=== PATIENT | male | born 1975 | race African-American/Black ===

== ENCOUNTER 2022-09-23 21:03 | Emergency (ER) | payer OTHER ==
--- OUTSIDE RECORDS SUMMARY | 2022-09-23 21:23 | XMS REPORT | Continuity of Care Document ---
:1975 Author Organization [facility] t Address [address] [place] [address] Care Team Providers Name Role Phone TEJINDER BURCH Primary Care Physician Unavailable Bud GUERRERO, Claire Woodard Attending Clinician [phone] Debi Briggs MD Attending Clinician Phil Arredondo Attending Clinician Kari Guerra MD Attending Clinician [phone] Meaghan Lipscomb MD Attending Clinician [phone] CLAIRE EWING Attending Clinician Unavailable MEAGHAN LIPSCOMB Attending Clinician Unavailable Rupesh WESTOksana Attending Clinician [phone] OKSANA GODDARD Attending Clinician Unavailable DEBI BRIGGS Attending Clinician Unavailable Kamryn GUERRERO, Meredith Arredondo Attending Clinician [phone] Roberth GUERRERO, Chaparro Clay Attending Clinician Larry GUERRERO, Coty Ha Attending Clinician Tonny Meneses MD Attending Clinician TONNY MENESES Attending Clinician Unavailable Jillian Napier MD Attending Clinician JILLIAN NAPIER Attending Clinician Unavailable Tejinder Burch MD Attending Clinician TEJINDER BURCH Attending Clinician Unavailable KENDRICK WISEMAN Attending Clinician Unavailable Jacob Calle DO Attending Clinician Madina GUERRERO, Honey Omalley Attending Clinician Elpidio Ramsey MD Attending Clinician ELPIDIO RAMSEY Attending Clinician Unavailable Brad Galindo DO Attending Clinician Jose Tovar MD Attending Clinician Pratik Layton MD Attending Clinician [phone] PRATIK LAYTON Attending Clinician Unavailable Puma Kent MD Attending Clinician PUMA KENT Attending Clinician Unavailable WILLIS GEORGE Attending Clinician Unavailable Balwinder Rebolledo MD Attending Clinician [phone] Samira Pearson MD Attending Clinician SAMIRA PEARSON Attending Clinician Unavailable SAMMI CABELLO Attending Clinician Unavailable TEJINDER BURCH Attending Clinician Unavailable BALAJI WILSON Attending Clinician Unavailable ELIGIO ROSENTHAL Attending Clinician Unavailable JILLIAN NAPIER Attending Clinician Unavailable CYN RECINOS Attending Clinician Unavailable Shannon Momin DO Attending Clinician SHANNON MOMIN Attending Clinician Unavailable COTY ELENA Attending Clinician Unavailable BRYSON ZAZUETA Attending Clinician Unavailable Marcin GUERRERO, Tejinder Attending Clinician Oksana Goddard NP Attending Clinician DEANDRA ACUÑA Attending Clinician Unavailable Jillian Napier MD Attending Clinician RAMAN PANTOJA Attending Clinician Unavailable SHEEBA MOORE Attending Clinician Unavailable CESARIO SOUSA Attending Clinician Unavailable ERICK NO Attending Clinician Unavailable MILAGRO JAMES Attending Clinician Unavailable MIAN SOTELO Attending Clinician Unavailable LAILA LOGAN Attending Clinician Unavailable CYN CASILLAS Attending Clinician Unavailable MEAGHAN LIPSCOMB Admitting Clinician Unavailable CHAPARRO FARAH Admitting Clinician Unavailable MIGUEL CURIEL Admitting Clinician Unavailable HONEY PAINTER Admitting Clinician Unavailable PRATIK LAYTON Admitting Clinician Unavailable BALWINDER REBOLLEDO Admitting Clinician Unavailable EUGENIA DUQUE Admitting Clinician Unavailable ANALILIA PRESLEY Admitting Clinician Unavailable BOOGIE UP Admitting Clinician Unavailable ELPIDIO RAMSEY Admitting Clinician Unavailable GRANT CLEMENTS Admitting Clinician Unavailable JANAY JOSEPH Admitting Clinician Unavailable JAMAR HARPER Admitting Clinician Unavailable CARLEEN MILLER Admitting Clinician Unavailable ANCIETO KRUSE Admitting Clinician Unavailable IVIS PUGH Admitting Clinician Unavailable TEOFILO BAIRD Admitting Clinician Unavail able Payers Payer Name Policy Type Policy Number Effective Date Expiration Date Dianne OSBORN DUAL [id number] COMPLETE [facility]-MEDICAID - [id number] 2020 MEDICAID 00:00:00 MEDICARE PART A [id number] 1999 \\T\\ B - MEDICARE 00:00:00 MEDICARE PLAN PPO [id number] AETNA GENERIC O - [id number] 2020 GENERIC PAYOR 00:00:00 MEDICAID OF [place] [id number] 2021 00:00:00 MEDICARE A B [id number] 2020 00:00:00 CDC REVIEW [id number] 2020 00:00:00 Problems Condition Condition Condition Status Onset Resolution Last Treating Co mments Source Name Details Category Date Date Treatment Clinician Date Enterocoli Enterocoli Disease Active [facility] tis [facility]18 [facility]: [facility] 00 [facility] 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 2-16 [facility] y with y with 00:00: Medical colonic colonic 00 [place] stricture stricture Generalize Generalize Disease Active 2020-[address] d d 0-23 [facility] abdominal abdominal 00:00: [facility] jf pain pain 00 Center Abdominal Abdominal Disease Active [facility] distention distention 5-13 [facility] 00:00: Medical 00 [place] Bowel Bowel Disease Active [facility] obstructio obstructio 1-16 [facility] n n 00:00: Medical 00 [place] Nausea Nausea Disease Active [facility] 1-16 [facility] 00:[facility]: Medical 00 [place] Ileus Ileus Disease Active [facility] 1-11 [facility] 00:[facility]: Medical 00 [place] Pain of Pain of Disease Active [facility] upper upper 1-06 [facility] abdomen abdomen 00:00: Medical 00 [place] Distal Distal Disease Active [facility] intestinal intestinal 8-29 [facility] obstructio obstructio 00:00: Me dical n syndrome n syndrome 00 Ce nter Acute Acute Disease Active [facility] abdominal abdominal 7-29 [facility] pain pain 00:00: Medical 00 Center Bilateral Bilateral Disease Active [facility] renal renal 7-09 [facility] stones stones 00:00: Medical 00 Center Hydrourete Hydrourete Disease Active [facility] r, left r, left 7- [facility] 00:[facility]: Medical 00 Center Hydronephr Hydronephr Disease Active [facility] osis with osis with 7 [facility] ureteropel ureteropel 00:00: Me dical angel angel 00 [place] junction junction (UPJ) (UPJ) obstructio obstructio n n Acute left Acute left Disease Active [facility] flank pain flank pain 7-09 [facility] 00:00: Medical 00 Center Gastrointe Gastrointe Disease Active [facility] stinal stinal 8-23 [facility] dysmotilit dysmotilit 00:00: Me dical y y 00 Center Hyponatrem Hyponatrem Disease Active [facility] ia ia 6-15 [facility] 00:[facility]: Medical 00 Center MATHEW (acute MATHEW (acute Disease Active [facility] kidney kidney 6-13 [facility] injury) injury) 00:00: Medical 00 Center Bronchiect Bronchiect Disease Active [facility] asis asis 6-13 [facility] 00:[facility]: Medical 00 Center Hyponatrem Hyponatrem Disease Active [facility] ia ia 6-13 [facility] 00:00: Medical 00 Center Other Other Disease Active [facility] partial partial 3 College intestinal intestinal 00:00: of obstructio obstructio 00 Me dicin n (HCCode) n (HCCode) e Vitamin E Vitamin E Disease Active [facility] deficiency deficiency 3-04 [facility] 00:00: of 00 Medicin e Vitamin A Vitamin A Disease Active [facility] deficiency deficiency 3-04 [facility] 00:00: of 00 Medicin e Exocrine Exocrine Disease Active [facility] pancreatic pancreatic 3-04 [facility] insufficie insufficie 00:00: of ncy ncy 00 Medicin e Vitamin D Vitamin D Disease Active [facility] deficiency deficiency 3-04 [facility]lege 00:00: of 00 Medicin e Abnormal Abnormal Disease Active [facility] finding on finding on 12-09 Co llege GI tract GI tract 00:00: of imaging imaging 00 Medicin e Chronic Chronic Disease Active Last [facility] constipati constipati 3 [facility] on on 00:00: t & Plan: of 00 Patient Medicin reports e no current GI issues, using 4 caps of Miralax 4x per day.Michael nt reports to clinic for a follow up visit, patient has been in and out of a hospital in [place] for LIONEL and Constipat ion. Just returned to [place] yesterday . Was admitted to hospital 4 x in November for recurrent LIONEL. Patient reports current regimen is 4 capfuls 4 times daily, patient is having insurance issues with coverage. Needs a PA for Miralax per Seedrscar [employer]. Discussed with patient at length issues with his current fragmente d care between [place] and [place], patient given informati on for adult center in [facility] which is only 3 hours from his home. Stated he did not know there was an adult CF center there. Other Other Disease Active [facility] constipati constipati 1-17 [facility] on on 00:00: Medical 00 Center Chronic Chronic Disease Active 2017-10 [facility] constipati constipati 2-16 Co llege on on 00:00: of Medicin e RLQ RLQ Disease Active 2017-10 [facility] abdominal abdominal 2-16 [facility] pain pain 00:00: of Medicin e Poor Poor Disease Active 2017-10 Last [facility] social social 2-03 [employer] situation situation 00:00: t & Plan: o f 00 Will have Medicin him meet e with social work to assist with resources [facility]. Patient not currently intereste d in therapy as he states he speaks with his mentors. Will continue to follow up with him. Possible referral to psychiatr y if remains with symptoms of depressio n and anxiety. 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 Patient is toleratin g and demonstra irene improveme nt in lung function and quality of life with Trikafta. Recommend continuin g current therapy. LFTs due. 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 No known No known Disease Unive rs active active ity of problems problems [facility] Allergies, Adverse Reactions, Alerts Allergy Allergy Status Severity Reaction(s) Onset Inactive Treating Comm ents Source Name Type Date Date Clinician [place] Propensi Active Hives Univer s c ty to 10-18 ity of adverse 00:00: [place] reaction 00 [facility] s Branch [place] DRUG Active Hives Univers C INGREDI 10-18 ity of 00:00: [place] 00 [facility] [place] Drug Active Hives [facility] Allergy 04-17 [facility] 00:00: Medical 00 Center KETOROLA Allergy Active High Hives [facility] C 04-17 [facility] 00:00: Medical 00 Center No Known DA Active [facility] Allergie 03-17 [place] [facility] 00:[facility]: d 00 Medical Center NO KNOWN Allergy Active [facility] Family History Family Member Diagnosis Comments Start Date Stop Date Source Natural brother Cystic fibrosis [facility] Natural father Heart disease [facility] Natural mother Lupus [facility] Social History Social Habit Start Date Stop Date Quantity Comments [facility] History [facility] 2022-09-08 2022-09-08 2 [facility] Transport Med 00:00:00 00:00:[address] [facility] 2022-09-08 2022-09-08 1 [facility] Housing Unable to 00:00:00 00:00:00 Medical Center Pay History [facility] 2022-09-08 2022-09-[address] [facility] Housing Places 00:00:00 00:00:00 Medical Ce nter Lived History [facility] 2022-09-08 2022-09-[address] [facility] Housing Homeless 00:00:00 00:00:00 Medical Center Last Year Alcohol intake 2022-09-07 2022-09-[address] [facility] es 00:00:00 00:00:00 non-drinker of Medical Ce nter alcohol (finding) Exposure to 2022-08-27 2022-09-[address] [facility] SARS-CoV-2 (event) 00:00:00 20:59:00 Medica l [place] Tobacco use and 2018-06-29 2018-06-[address] [facility]es exposure 00:00:00 00:00:00 Medical Center Sex Assigned At [address]es 00:00:00 00:00:00 Medical Center Smoking Status Start Date Stop Date Source Unknown if ever smoked [facility] Never sm[facility] Medications Ordered Filled Start Stop Current Ordering Indication Dosage Frequency Signature Comments Components Source Medication Medication Date Date Medication? Clinician (SIG) Name Name shey 2021-10 Yes 1{capsu Q.5D Take [address] [facility] multivit 2-03 le} capsule by [facility] 22/vit 16:40: mouth 2 Medical D3/vit K 27 (two) Center (MVW times COMPLETE daily. FORMULATION D5000 ORAL) polyethylen 2021-10 Yes 17g Q.25D Take [address] [facility] e glycol 2-03 by mouth 4 [facility] (GLYCOLAX) 16:40: (four) Medic al 17 gram 27 times Center packet daily. plecanatide 2021-10- No 3mg QD Take [address] [facility] (Trulance) 2- 12-03 by mouth Luke s 3 mg Tab 14:02: 00:00 daily. Medica l 54 :00 Center tenapanor 2021-10- No 50mg Q.5D Take [address] (Ibsrela) 2- 12-03 by mouth 2 Arm[facility] es 50 mg Tab 14:02: 00:00 (two) Medica l 54 :00 times Center daily. tenapanor 2021-10 Yes 50mg Q.5D Take [address] (Ibsrela) 2-03 by mouth 2 [facility] s 50 mg Tab 00:00: (two) Medical 00 times Center daily. plecanatide 2021-10 Yes 3mg QD Take [address] (Trulance) 2-03 by mouth [facility] 3 mg Tab 00:00: daily. [facility] 00 [place] polyethylen 2021-10 Yes 17g Q.25D Take [address] [facility] e glycol 1-29 by mouth 4 [facility] (GLYCOLAX) 20:27: (four) Medic al 17 gram 40 times Center packet daily. pedi 2021-10 Yes 1{capsu Q.5D Take [address] [facility] multivit 1-29 le} capsule by [facility] 22/vit 20:27: mouth 2 Medical D3/vit K 39 (two) Center (MVW times COMPLETE daily. FORMULATION D5000 ORAL) plecanatide 2021-10 Yes 3mg QD Take [address] (Trulance) 1-29 by mouth [facility] 3 mg Tab 20:27: daily. [facility] 39 [place] tenapanor 2021-10 Yes 50mg Q.5D Take [address] (Ibsrela) 1-29 by mouth 2 Luke s 50 mg Tab 20:27: (two) Medical 39 times Center daily. polyethylen 2021- No 4000mL Take 4,[address] e glycol 9-18 09-18 mLs by [facility] (GoLYTELY,N 00:00: 23:59 mouth once Medical uLYTELY) 00 :00 for 1 Center 236-22.74-6 dose. .74 -5.86 gram solution polyethylen 2021- No 4000mL Take 4,[address] e glycol 9-18 09-18 mLs by [facility] (GoLYTELY,N 00:00: 23:59 mouth once Medical uLYTELY) 00 :00 for 1 Center 236-22.74-6 dose. .74 -5.86 gram solution polyethylen 2021- No 34g Q.5D Take [address] [facility] e glycol 9-13 09-16 by mouth 2 Luke s (GLYCOLAX) 00:00: 23:59 (two) Medic al 17 gram 00 :00 times Center packet daily for 3 days. polyethylen 2022-0 2022- No 34g Q.5D Take [address] [facility] e glycol 9-13 09-16 by mouth 2 Luke s (GLYCOLAX) 00:00: 23:59 (two) Medic al 17 gram 00 :00 times Center packet daily for 3 days. pedi 2021-0 Yes 1{capsu Q.5D Take [address] [facility] multivit 3-02 le} capsule by [facility] 22/vit 14:47: mouth 2 Medical D3/vit K 56 (two) Center (MVW times COMPLETE daily. FORMULATION D5000 ORAL) polyethylen 2-0 Yes 4000mL Take 4,[address] e glycol 3-01 mLs by [facility] (SmithaYTELY,N 00:00: mouth as Me dical uLYTELY) 00 needed Center 236-22.74-6 (constipat .74 -5.86 ion). gram solution prucaloprid 2021-0 Yes 2mg QD Take [address] e 2 mg Tab 3-01 by mouth [facility] 00:00: daily. Medical 00 Center prucaloprid 2-0 2022- No 2mg QD Take [address] [facility] e 2 mg Tab 3-09-07 by mouth Luke s 00:00: 00:00 daily. Medical 00 :00 Center prucaloprid 2022-0 2022- No 2mg QD Take [address] [facility] e 2 mg Tab 3-09-07 by mouth Luke s 00:00: 00:00 daily. Medical 00 :00 Center polyethylen 2022-0 2022- No 4000mL Take 4,[address] e glycol 3-01 09-18 mLs by [facility] (GoLYTELY,N 00:00: 00:00 mouth as M edical uLYTELY) 00 :00 needed Center 236-22.74-6 (constipat .74 -5.86 ion). gram solution polyethylen 2022-0 2022- No 4000mL Take 4,[address] e glycol 3-01 09-18 mLs by [facility] (GoLYTELY,N 00:00: 00:00 mouth as M edical uLYTELY) 00 :00 needed Center 236-22.74-6 (constipat .74 -5.86 ion). gram solution polyethylen 2022-0 2022- No 4000mL Take 4,[address] e glycol 2- 03- mLs by [facility] (ColleenLY,N 00:00: 00:00 mouth as M edical uLYTELY) 00 :00 needed [facility] 236-22.74-6 (constipat .74 -5.86 ion). gram solution prucaloprid 2022-0 2022- No 2mg QD Take [address] e 2 mg Tab 2-04 01- by mouth Luke s 00:00: 00:00 daily. Medical 00 :00 Center polyethylen 2021-0 2022- No 4000mL Take 4,[address] e glycol 2-04 01- mLs by [facility] (Latesha,N 00:00: 00:00 mouth as M edical uLYTELY) 00 :00 needed [facility] 236-22.74-6 (constipat .74 -5.86 ion). gram solution prucaloprid 2021-0 2022- No 2mg QD Take [address] e 2 mg Tab 2-04 01- by mouth Luke s 00:00: 00:00 daily. Medical 00 :00 Center polyethylen 2021-0 2022- No 4000mL Take 4,[address] e glycol 2-04 01- mLs by [facility] (Latesha,N 00:00: 00:00 mouth as M edical uLYTELY) 00 :00 needed [facility] 236-22.74-6 (constipat .74 -5.86 ion). gram solution prucaloprid 2-0 2022- No 2mg QD Take [address] e 2 mg Tab 2-04 01- by mouth Luke s 00:00: 00:00 daily. Medical 00 :00 [place] multivitami 2021-0 3- No 1{tbl} QD Take [address] n 2-23 02-23 tablet by [facility] (THERAGRAN) 00:00: 23:59 mouth Medi jf tablet 00 :00 daily. [facility] multivitami 2021-0 2022- No 1{tbl} QD Take [address] n 2-23 11-29 tablet by [facility] (THERAGRAN) 00:00: 00:00 mouth Medi jf tablet 00 :00 daily. [place] multivitami 2021- No 1{tbl} QD Take [address] n 2-23 -29 tablet by [facility] (THERAGRAN) 00:00: 00:00 mouth Medi fj tablet 00 :00 daily. Center lubiproston Yes 72ug Q.5D Take [address] [facility] e (AMITIZA) 2-22 capsules Luke s 24 MCG 00:00: (72 mcg Medical capsule 00 total) by Center mouth 2 (two) times daily. lubiproston 2021- No 72ug Q.5D Take [address] [facility] e (AMITIZA) 2-22 11-29 capsules Armando es 24 MCG 00:00: 00:00 (72 mcg Medical capsule 00 :00 total) by Center mouth 2 (two) times daily. lubiproston 2021- No 72ug Q.5D Take [address] e (AMITIZA) 2-22 11-29 capsules Armando es 24 MCG 00:00: 00:00 (72 mcg Medical capsule 00 :00 total) by Center mouth 2 (two) times daily. lubiproston 2020-10 No 24ug Q.5D Take [address] [facility] (AMITIZA) 0-28 10-28 mcg by [facility] 24 MCG 14:37: 00:00 mouth 2 Medical capsule 59 :00 (two) Center times daily. melatonin 5 2020-10 Yes 5mg Take [address] [facility] mg Tab 0-28 tablet (5 [facility] tablet 00:00: mg total) Medica l 00 by mouth Center every night as needed (sleep). melatonin 5 2020-10 No 5mg Take [address] [facility] mg Tab 0-28 11-29 tablet (5 [facility] tablet 00:00: 00:00 mg total) Medic al 00 :00 by mouth Center every night as needed (sleep). melatonin 5 2020-10- No 5mg Take [address] [facility] mg Tab 0-28 11-29 tablet (5 [facility] tablet 00:00: 00:00 mg total) Medic al 00 :00 by mouth Center every night as needed (sleep). lubiproston 2020-10 No 72ug Q.5D Take [address] [facility] e (AMITIZA) 0-28 02-22 capsules Armando es 24 MCG 00:00: 00:00 (72 mcg Medical capsule 00 :00 total) by Center mouth 2 (two) times daily. lubiproston 2020-10- No 72ug Q.5D Take [address] [facility] e (AMITIZA) 0-28 02-22 capsules Armando es 24 MCG 00:00: 00:00 (72 mcg Medical capsule 00 :00 total) by Center mouth 2 (two) times daily. lubiproston 2020-10- No 72ug Q.5D Take [address] [facility] e (AMITIZA) 0-28 02-22 capsules Armando es 24 MCG 00:00: 00:00 (72 mcg Medical capsule 00 :00 total) by Center mouth 2 (two) times daily. hydrocortis 2020-[address] [facility] one 0-07 rectally 2 [facility] (ANUSOL-HC) 00:00: 23:59 (two) Medi jf 2.5 % 00 :00 times Center rectal daily for cream 10 days for rectal pain. magnesium 2021- No 400mg Q.5D Take [address] [facility] oxide 04-15- tablet [facility] (MAG-OX) 00:00: 23:59 (400 mg Medic al 400 mg 00 :00 total) by Center (241.3 mg mouth 2 magnesium) (two) tablet times daily. polyethylen 2021- No 34g Q.25D Take [address] e glycol 04-15- by mouth 4 Luke s (GLYCOLAX) 00:00: 23:59 (four) Medi jf 17 gram 00 :00 times Center packet daily. magnesium 2021- No 400mg Q.5D Take [address] [facility] oxide 04-15-07 tablet [facility] (MAG-OX) 00:00: 23:59 (400 mg Medic al 400 mg 00 :00 total) by Center (241.3 mg mouth 2 magnesium) (two) tablet times daily. polyethylen 2021- No 34g Q.25D Take [address] e glycol 04-15-07 by mouth 4 Luke s (GLYCOLAX) 00:00: 23:59 (four) Medi jf 17 gram 00 :00 times Center packet daily. magnesium 2021- No 400mg Q.5D Take [address] [facility] oxide 04-15 tablet [facility] (MAG-OX) 00:00: 23:59 (400 mg Medic al 400 mg 00 :00 total) by Center (241.3 mg mouth 2 magnesium) (two) tablet times daily. polyethylen 2021- No 34g Q.25D Take [address] e glycol 04-15 by mouth 4 Luke s (GLYCOLAX) 00:00: 23:59 (four) Medi jf 17 gram 00 :00 times Center packet daily. ondansetron 2020- No 4mg 4 mg, Slow Univers (ZOFRAN 10-19- IV Push, ity of (PF)) 08:00: 06:57 ONCE, 1 [place] injection 4 00 :00 dose, Sun Med ical mg 10/19/20 at Branch 0200, FAROOQ D5W 0.45% Yes 1000mL at 125 Univ ers NaCl 1-10 mL/hr, ity of (1/2NS) IV 07:45: 1,000 [place], [place] infusion 00 IV Medical 1,000 mL Infusion, Branch CONTINUOUS , Starting 10/19/20 at 0145, Until Discontinu ed, FAROOQ iohexol 2020- No 120mL 120 mL, Unive rs (OMNIPAQUE 10-19-10 Intravenou it y of 350 04:15: 03:58 s, ONCE, 1 [place] BULK-100 00 :00 dose, Sat Medica l mL) 10/18/20 at Branch injection 2215, 120 mL Routine NaCl 0.9% 2020- No 1000mL at 999 Uni vers (NS) bolus -10 01-10 mL/hr, ity of infusion 03:15: 04:55 1,000 mL, [place] as 1,000 mL 00 :00 IV Medical Infusion, Branch ONCE, 1 dose, 10/18/20 at 2115, FAROOQ dornase 2020-0 Yes 2.5mg Q.5D Take 2.5 [facility] jeanette 7-31 mg by [facility] (PULMOZYME) 00:00: nebulizati Medical 1 mg/mL 00 on 2 (two) Center nebulizer times solution daily. dornase 2020-0 Yes 2.5mg Q.5D Take 2.5 [facility] jeanette 7-31 mg by [facility] (PULMOZYME) 00:00: nebulizati Medical 1 mg/mL 00 on 2 (two) Center nebulizer times solution daily. dornase 2020-0 Yes 2.5mg Q.5D Take 2.5 [facility] jeanette 7-31 mg by [facility] (PULMOZYME) 00:00: nebulizati Medical 1 mg/mL 00 on 2 (two) Center nebulizer times solution daily. tobramycin, 2019-0 Yes [id number] 300mg Take 1 [facility] PF, (LAVON) 6-16 Ampule by [facility] 300 MG/5ML 00:00: nebulizati o f nebulizer 00 on two Medicin solution times e daily. Alternate 28 days on with 28 days off. albuterol 2019-0 Yes [id number] 2.5mg Take 1 [facility] (PROVENTIL) 6-15 Ampule by Col lege (2.5 mg/3 00:00: nebulizati of mL) 0.083% 00 on two Medicin nebulizer times e solution daily. sodium 2019-0 Yes [id number] 4mL 1 Ampule [facility] chloride, 6-15 two times Colle ge Inhalant, 00:00: daily. of (HYPER-CHELSEA) 00 Medicin 7 % e nebulizer solution dornase 2019-0 Yes [id number] 2.5mg Take 1 [facility] alpha 6-15 Ampule by Jose (PULMOZYME) 00:00: nebulizati of 1 MG/ML 00 on daily. Medicin nebulizer e solution Nutritional 2020- No [id number] 1{bottl Take 1 [facility] Supplements -23 09-13 e} Bottle by Renuka vasquez (ENSURE 00:00: 05:59 mouth 3 of PLUS) LIQD 00 :00 times Medicin daily for e 180 days. Multiple 2019- 2020- No [id number] 1{capsu Take 1 [facility] Vitamins-Mi -23 09- le} capsule by Roel castillo (MVW 00:00: 05:59 mouth 2 of COMPLETE 00 :00 times Medicin FORMULATION daily e D5000) CAPS (with meals) for 180 days. elexacaftor 2019-0 Yes 2{tbl} QD Take [address] -tezacaftor 6-11 tablets by Bere valdivia -ivacasanford 00:00: mouth Medical (TRIKAFTA) 00 every Center 100-50-75 evening mg(d) /150 Take As mg (n) TbSQ directed by dr. martexacaftor 2019-0 Yes 2{tbl} Take [address] -tezacaftor 6-11 tablets by Bere Adhikariivacasanford 00:00: mouth Medical (TRIKAFTA) 00 Every Center 100-50-75 morning mg(d) /150 and one in mg (n) TbSQ evening. elexacaftor 2020-0 Yes 2{tbl} Take [address] -tezacaftor 6-11 tablets by Bere Adhikariivacasanford 00:00: mouth Medical (TRIKAFTA) 00 Every Center 100-50-75 morning mg(d) /150 and one in mg (n) TbSQ evening. TRIKAFTA 2020-0 Yes [id number] Take 2 [facility] 100-50-75 & 6-11 [employer] 150 MG TBPK 00:00: tablets by of 00 mouth Medicin every e morning, and 1 blue tablet by mouth every evening (12 hours apart) with fat-contai sharan food. Elexacaf-Te 2020-0 Yes [id number] Take 2 [facility] zacaf-Ivaca 3-05 tablets by Co llege f&Ivacaf 00:00: mouth of 100-50-75 & 00 every Medicin 150 MG TBPK morning e AND 1 tablet nightly. 12 hours apart. Take with 12g of fat. Gem tablet morning, blue tablet night. polyethylen 2020-0 Yes [id number] 1{packe Take 1 [facility] e glycol 2-17 t} Packet by Colleg e (MIRALAX) 00:00: mouth four of packet 00 times Medicin daily. e Each packet should be 17 grams. polyethylen 2020-0 Yes [id number] 1{packe Take 1 [facility] e glycol 2-17 t} Packet by Colleg e (MIRALAX) 00:00: mouth four of packet 00 times Medicin daily. e Each packet should be 17 grams. sodium 2020-0 Yes [id number] 4mL 1 Ampule [facility] rasheed chloride, 1-16 two times Colle ge Inhalant, 00:00: daily. of (HYPER-CHELSEA) 00 Medicin 7 % e nebulizer solution tobramycin, 2020-0 Yes 300mg Take 1 [facility] PF, (LAVON) 1-16 Ampule [address] [facility] ege 300 MG/5ML 00:00: nebulizati o f nebulizer 00 on two Medicin solution times e daily. Indication s: Alternate 21 days on with 21 days off dornase 2019-0 Yes [id number] 2.5mg Take 1 [facility] alpha 1-16 Ampule by [place] (PULMOZYME) 00:00: nebulizati of 1 MG/ML 00 on daily. Medicin nebulizer e solution albuterol 2019-0 Yes [id number] 2.5mg Take 1 [facility] (PROVENTIL) 1-16 Ampule by [facility] [place] (2.5 mg/3 00:00: nebulizati of mL) 0.083% 00 on two Medicin nebulizer times e solution daily. Nutritional 2020- No [id number] 1{bottl Take 1 [facility] Supplements 1-16 07-15 e} Bottle by [facility] christina (ENSURE 00:00: 04:59 mouth 3 of PLUS) LIQD 00 :00 times Medicin daily for e 180 days. polyethylen 0 Yes [id number] Drink 8 oz [facility] e glycol 1-09 every 15 College (GOLYTELY;N 00:00: minutes of ULYTELY) 00 till Medicin 236 g having e suspension regular bowel movments. polyethylen 2020- No [id number] Drink 8 oz [facility] e glycol 10-18 07-08 every 15 Colleg e (GOLYTELY;N 00:00: 00:00 minutes of ULYTELY) 00 :00 till Medicin 236 g having e suspension regular bowel movments. Multiple 2018-10 2020- No [id number] 1{capsu Take 1 [facility] Vitamins-Mi 2-05 06-03 le} capsule by Roel castillo (MVW 00:00: 04:59 mouth 2 of COMPLETE 00 :00 times Medicin FORMULATION daily e D5000) CAPS (with meals) for 180 days. Nutritional 2020- No [id number] 1{bottl Take 1 [employer] Supplements 7-11 01-08 e} Bottle by [employer] (ENSURE 00:00: 05:59 mouth 3 of PLUS) LIQD 00 :00 times Medicin daily for e 180 days. polyethylen Yes [id number] 17g Take 17 g [facility] e glycol 7-10 by mouth [place] (GLYCOLAX) 00:00: four times o f powder 00 daily. Medicin e Mineral Oil Yes [id number] 1{enema PLACE 1 [facility] ENEM 5-23 } ENEMA College 00:00: RECTALLY of 00 NEEDED Medicin e Mineral Oil Yes [id number] 1{enema PLACE 1 [facility] ENEM 5-23 } ENEMA [facility] 00:00: RECTALLY of 00 NEEDED Medicin e Mineral Oil Yes [id number] 1{enema PLACE 1 [facility] ENEM 5-23 } ENEMA [facility] 00:00: RECTALLY of 00 NEEDED Medicin e Linaclotide Yes 1{tbl} Take 1 Tab [facility] (LINZESS) 3-28 by mouth Colleg e 290 MCG 00:00: daily. of CAPS 00 Medicin e dornase Yes [id number] 2.5mg Take 1 [facility] alpha 1-18 Ampule by [place] (PULMOZYME) 00:00: nebulizati of 1 MG/ML 00 on daily. Medicin nebulizer e solution Pancrelipas Yes 1{capsu Take 1 Cap [facility] e, 1-09 le} by mouth [place] Lip-Prot-Am 00:00: four times of yl, (CREON) 00 daily. Medici n [id number] units e CPEP Pancrelipas Yes 1{capsu Take 1 Cap [facility] e, 1-09 le} by mouth [place] Lip-Prot-Am 00:00: four times of yl, (CREON) 00 daily. Medici n 39925 units e CPEP Pancrelipas Yes 1{capsu Take 1 Cap [facility] e, 1-09 le} by mouth [place] Lip-Prot-Am 00:00: four times of yl, (CREON) 00 daily. Medici n 33864 units e CPEP pediatric 2017-10 Yes 1{capsu QD Take [address] [facility] multivit 2-06 le} capsule by Tayla 61-D3-vit K 00:00: mouth Medic al (MVW 00 daily. Center COMPLETE FORMULATION D5000) 5,000-800 unit-mcg Cap Multiple 2017-10 Yes 1{capsu Take 1 [facility] Vitamins-Mi 11-15 le} capsule by Renuka castillo (MVW 00:00: mouth 2 of COMPLETE 00 times Medicin FORMULATION daily e D5000) CAPS (with meals) for 180 days. pediatric 2017-10- No 1{capsu QD Take [address] multivit 11-15 le} capsule by John cleaning 61-D3-vit K 00:00: 00:00 mouth Medi jf (MVW 00 :00 daily. [facility] COMPLETE FORMULATION D5000) 5,000-800 unit-mcg Cap pediatric 2017-10- No 1{capsu QD Take [address] multivit 11-15 le} capsule by John cleaning 61-D3-vit K 00:00: 00:00 mouth Medi jf (MVW 00 :00 daily. [facility] COMPLETE FORMULATION D5000) 5,000-800 unit-mcg Cap sodium 2017-10 Yes 4mL QD [address] [facility] chloride, 11-07 daily . [facility] hypertonic, 00:00: Medica l (HYPER-CHELSEA) 00 [place] 7 % nebulizer solution sodium 2017-10 Yes 4mL Q.5D [address] [facility] chloride, 11-07 (two) [facility] hypertonic, 00:00: times Medic al (HYPER-CHELSEA) 00 daily . Cente r 7 % nebulizer solution sodium 2017-10 Yes 4mL Q.5D [address] [facility] chloride, 11-07 (two) [facility] hypertonic, 00:00: times Medic al (HYPER-CHELSEA) 00 daily . Cente r 7 % nebulizer solution albuterol 2017-10 Yes [id number] 2.5mg Take 1 [facility] (PROVENTIL) 11-07 Ampule by lege (2.5 mg/3 00:00: nebulizati of mL) 0.083% 00 on two Medicin nebulizer times e solution daily. sodium 2017-10 Yes [id number] 4mL 1 Ampule [facility] [facility] chloride, 11-07 two times Colle ge Inhalant, 00:00: daily. of (HYPER-CHELSEA) Medicin 7 % e nebulizer solution tobramycin, 2017-10 Yes 300mg Take 1 [facility] PF, (LAVON) 1-29 Ampule by [facility] ege 300 MG/5ML 00:00: nebulizati o f nebulizer 00 on two Medicin solution times e daily. ondansetron 2017-10 Yes 4mg Take 4 mg [facility] (ZOFRAN) 4 0-17 by mouth Colle ge MG tablet 00:00: every 8 of 00 hours as Medicin needed. e ondansetron 2017-10 Yes 4mg Take 4 mg [facility] (ZOFRAN) 4 0-17 by mouth Colle ge MG tablet 00:00: every 8 of 00 hours as Medicin needed. e ondansetron 2017-10 Yes 4mg Take 4 mg [facility] (ZOFRAN) 4 0-17 by mouth Colle ge MG tablet 00:00: every 8 of 00 hours as Medicin needed. e albuterol Yes 2.5mg Take [address] (PROVENTIL) 9-23 (2.5 mg [facility] 2.5 mg /3 00:00: total) by Med ical mL (0.083 00 [address]bul[address] er %) on every 6 nebulizer (six) solution hours as needed for Wheezing. tobramycin, Yes 300mg Q.5D Take [address] PF, (LAVON) 9-23 (300 mg [facility] 300 mg/5 mL 00:00: total) by M edical nebulizer [address] er solution on 2 (two) times daily 21days on . lipase-prot Yes 1{capsu Take [address] ease-amylas 07-02 le} capsule by Bere vilchis (CREON) 00:00: mouth 3 Medic al 36,000-114, 00 (three) Cente r 000- times 180,000 daily with unit CpDR meals 3 capsule tablets before meals. 1-2 tablets with snacks . albuterol Yes 2.5mg Take [address] (PROVENTIL) 9-23 (2.5 mg [facility] 2.5 mg /3 00:00: total) by Med ical mL (0.083 [address] er %) on every 6 nebulizer (six) solution hours as needed for Wheezing. tobramycin, Yes 300mg Q.5D Take [address] PF, (LAVON) 9-23 (300 mg [facility] 300 mg/5 mL 00:00: total) by M edical nebulizer [address] er solution on 2 (two) times daily 21days on . lipase-prot 2017-0 Yes 1{capsu Take [address] ease-amylas 9-23 le} capsule by Bere kes e (CREON) 00:00: mouth 3 Medic al 36,000-114, 00 (three) Cente r 000- times 180,000 daily with unit CpDR meals 3 capsule tablets before meals. 1-2 tablets with snacks . albuterol 2017-0 Yes 2.5mg Take [address] (PROVENTIL) 9-23 (2.5 mg [facility] 2.5 mg /3 00:00: total) by Med ical mL (0.083 [address] er %) on every 6 nebulizer (six) solution hours as needed for Wheezing. tobramycin, 2018-0 Yes 300mg Q.5D Take [address] PF, (LAVON) 9-23 (300 mg [facility] 300 mg/5 mL 00:00: total) by M edical nebulizer [address] er solution on 2 (two) times daily 21days on . lipase-prot 2018-0 Yes 1{capsu Take [address] ease-amylas 9-23 le} capsule by Bere moodys e (CREON) 00:00: mouth 3 Medic al 36,000-114, 00 (three) Cente r 000- times 180,000 daily with unit CpDR meals 3 capsule tablets before meals. 1-2 tablets with snacks . No known No [facility] medications [facility] Immunizations Ordered Immunization Filled Immunization Date Status Commen ts Source Name Name Pneumococcal 2019-06-[address] [facility] Conjugate (Prevnar) 00:00:00 [facility] 13-Valent Pneumococcal 2019-06-[address] [facility] Conjugate (Prevnar) 00:00:00 [facility] 13-[facility]ent Pneumococcal 2019-06-[address] [facility] Conjugate (Prevnar) 00:00:00 [facility] Influenza (whole) 2019-05-30 Completed [facility] 00:00:00 of Medicine Influenza (whole) 2019-05-30 Completed [facility] 00:00:00 of Medicine Influenza (whole) 2019-05-30 Completed [facility] 00:00:00 of Medicine Influenza Quad-PF 2018-08-29 Completed [facility] 00:00:00 of Medicine Influenza Quad-PF 2018-08-29 Completed [facility] 00:00:00 of Medicine Influenza Quad-PF 2018-08-29 Completed [facility] 00:00:00 of Medicine Influenza Four-QIV 2018-07-[address] [facility] Non-PF 5+ YR 00:00:00 [facility] Influenza Four-QIV 2018-07-[address] [facility] Non-PF 5+ YR 00:00:00 [facility] Cent [facility] Influenza Four-QIV 2018-07-[address] [facility] Non-PF 5+ YR 00:00:00 Medical Cent er Vital Signs Vital Name Observation Time Observation Value Comments Source HEIGHT 2022-09-07 20:33:00 185.4 cm WEIGHT 2022-09-07 20:33:00 69.491 kg HEIGHT 2022-09-06 20:59:00 185.4 cm WEIGHT 2022-09-06 20:59:00 70.308 kg HEIGHT 2022-09-07 20:33:00 185.4 cm WEIGHT 2022-09-07 20:33:00 69.491 kg HEIGHT 2022-09-06 20:59:00 185.4 cm WEIGHT 2022-09-06 20:59:00 70.308 kg HEIGHT 2022-09-07 20:33:00 185.4 cm WEIGHT 2022-09-07 20:33:00 69.491 kg HEIGHT 2022-09-06 20:59:00 185.4 cm WEIGHT 2022-09-06 20:59:00 70.308 kg WEIGHT 2022-06-21 12:00:00 68.947 kg HEIGHT 2022-06-18 17:45:00 185.4 cm WEIGHT 2022-06-18 17:45:00 70.308 kg WEIGHT 2022-06-21 12:00:00 68.947 kg HEIGHT 2022-06-18 17:45:00 185.4 cm WEIGHT 2022-06-18 17:45:00 70.308 kg WEIGHT 2022-06-21 12:00:00 68.947 kg HEIGHT 2022-06-18 17:45:00 185.4 cm WEIGHT 2022-06-18 17:45:00 70.308 kg WEIGHT 2021-12-08 20:00:00 67.767 kg WEIGHT 2021-12-07 20:00:00 65.772 kg HEIGHT 2021-12-05 07:23:00 185.4 cm WEIGHT 2021-12-05 07:23:00 68.04 kg WEIGHT 2021-12-08 20:00:00 67.767 kg WEIGHT 2021-12-07 20:00:00 65.772 kg HEIGHT 2021-12-05 07:23:00 185.4 cm WEIGHT 2021-12-05 07:23:00 68.04 kg WEIGHT 2021-12-08 20:00:00 67.767 kg WEIGHT 2021-12-07 20:00:00 65.772 kg HEIGHT 2021-12-05 07:23:00 185.4 cm WEIGHT 2021-12-05 07:23:00 68.04 kg WEIGHT 2021-11-30 19:00:00 68.04 kg WEIGHT 2021-11-30 06:26:00 68.357 kg HEIGHT 2021-11-25 00:36:00 185.4 cm WEIGHT 2021-11-25 00:36:00 70.5 kg WEIGHT 2021-11-30 19:00:00 68.04 kg WEIGHT 2021-11-30 06:26:00 68.357 kg HEIGHT 2021-11-25 00:36:00 185.4 cm WEIGHT 2021-11-25 00:36:00 70.5 kg WEIGHT 2021-11-30 19:00:00 68.04 kg WEIGHT 2021-11-30 06:26:00 68.357 kg HEIGHT 2021-11-25 00:36:00 185.4 cm WEIGHT 2021-11-25 00:36:00 70.5 kg HEIGHT 2021-11-13 19:39:00 185.4 cm WEIGHT 2021-11-13 19:39:00 70 kg HEIGHT 2021-11-13 19:39:00 185.4 cm WEIGHT 2021-11-13 19:39:00 70 kg HEIGHT 2021-11-13 19:39:00 185.4 cm WEIGHT 2021-11-13 19:39:00 70 kg HEIGHT 2021-08-02 00:00:00 185.4 cm WEIGHT 2021-08-02 00:00:00 68.992 kg HEIGHT 2021-08-01 18:41:00 185.4 cm HEIGHT 2021-08-02 00:00:00 185.4 cm WEIGHT 2021-08-02 00:00:00 68.992 kg HEIGHT 2021-08-01 18:41:00 185.4 cm WEIGHT 2021-04-13 03:25:00 69.7 kg HEIGHT 2021-04-12 21:01:00 185.4 cm WEIGHT 2021-04-12 21:01:00 70.308 kg WEIGHT 2021-04-13 03:25:00 69.7 kg HEIGHT 2021-04-12 21:01:00 185.4 cm WEIGHT 2021-04-12 21:01:00 70.308 kg HEIGHT 2021-02-19 23:30:00 185.4 cm WEIGHT 2021-02-19 23:30:00 67.903 kg HEIGHT 2021-02-19 15:57:00 185.4 cm WEIGHT 2021-02-19 15:57:00 70.308 kg HEIGHT 2021-02-19 23:30:00 185.4 cm WEIGHT 2021-02-19 23:30:00 67.903 kg HEIGHT 2021-02-19 15:57:00 185.4 cm WEIGHT 2021-02-19 15:57:00 70.308 kg HEIGHT 2020-10-25 01:19:00 182.9 cm WEIGHT 2020-10-25 01:19:00 61.236 kg HEIGHT 2020-10-25 01:19:00 182.9 cm WEIGHT 2020-10-25 01:19:00 61.236 kg HEIGHT 2020 02:40:00 185.4 cm WEIGHT 2020 02:40:00 68 kg HEIGHT 2020-10-19 18:24:00 185.4 cm WEIGHT 2020-10-19 18:24:00 70.308 kg HEIGHT 2020 02:40:00 185.4 cm WEIGHT 2020 02:40:00 68 kg HEIGHT 2020-10-19 18:24:00 185.4 cm WEIGHT 2020-10-19 18:24:00 70.308 kg Systolic blood 2020-10-19 07:00:00 134 mm[Hg] [facility] pressure [facility] Diastolic blood 2020-10-19 07:00:00 92 mm[Hg] Unive rsity of pressure [facility] Heart rate 2020-10-19 07:00:00 53 /min [facility] Respiratory rate 2020-10-19 07:00:00 15 /min [facility] Oxygen saturation in 2020-10-19 07:00:00 100 /min [facility] of Arterial blood by [place] [facility] Pulse oximetry [facility] Body temperature 2020-10-19 03:08:00 36.72 [facility] Body height 2020-10-19 03:08:00 185.4 cm [facility] Body weight 2020-10-19 03:08:00 70.308 kg [facility] BMI 2020-10-19 03:08:00 20.45 kg/m2 [facility] Systolic blood 2020-10-19 07:00:00 134 mm[Hg] [facility]iver [facility] pressure [facility] Diastolic blood 2020-10-19 07:00:00 92 mm[Hg] Unive rsity of pressure [facility] Heart rate 2020-10-19 07:00:00 53 /min [facility] Respiratory rate 2020-10-19 07:00:00 15 /min [facility] Oxygen saturation in 2020-10-19 07:00:00 100 /min [facility] Arterial blood by [place] [facility] jf Pulse oximetry Branch Body temperature 2020-10-19 03:08:00 36.72 [facility] Body height 2020-10-19 03:08:00 185.4 cm [facility] Body weight 2020-10-19 03:08:00 70.308 kg [facility] BMI 2020-10-19 03:08:00 20.45 kg/m2 [facility] HEIGHT 2020-10-15 08:14:00 185.4 cm WEIGHT 2020-10-15 08:14:00 70.308 kg HEIGHT 2020-10-14 23:40:00 185.4 cm WEIGHT 2020-10-14 23:40:00 70.308 kg HEIGHT 2020-10-15 08:14:00 185.4 cm WEIGHT 2020-10-15 08:14:00 70.308 kg HEIGHT 2020-10-14 23:40:00 185.4 cm WEIGHT 2020-10-14 23:40:00 70.308 kg HEIGHT 2020-06-07 00:00:00 185.4 cm WEIGHT 2020-06-07 00:00:00 70.308 kg HEIGHT 2020-06-07 00:00:00 185.4 cm WEIGHT 2020-06-07 00:00:00 70.308 kg HEIGHT 2020-05-06 00:00:00 185.4 cm WEIGHT 2020-05-06 00:00:00 68.493 kg HEIGHT 2020-05-06 00:00:00 185.4 cm WEIGHT 2020-05-06 00:00:00 68.493 kg HEIGHT 2020-04-17 00:00:00 185.4 cm WEIGHT 2020-04-17 00:00:00 73.483 kg HEIGHT 2020-04-17 00:00:00 185.4 cm WEIGHT 2020-04-17 00:00:00 73.483 kg Systolic blood 2020-04-16 19:06:00 149 mm[Hg] [facility] pressure Medicine Diastolic blood 2020-04-16 19:06:00 82 mm[Hg] [facility] Medicine Heart rate 2020-04-16 19:06:00 72 /min [facility] Body temperature 2020-04-16 19:06:00 37 [facility] Respiratory rate 2020-04-16 19:06:00 18 /min [facility] Body height 2020-04-16 19:06:00 180.3 cm [facility] Body weight 2020-04-16 19:06:00 73.755 kg [facility] BMI 2020-04-16 19:06:00 22.68 kg/m2 [facility] Systolic blood 2019-12-12 19:02:00 124 mm[Hg] [facility] Medicine Diastolic blood 2019-12-12 19:02:00 84 mm[Hg] [facility] Medicine Heart rate 2019-12-12 19:02:00 86 /min [facility] Body temperature 2019-12-12 19:02:00 37.17 [facility] Respiratory rate 2019-12-12 19:02:00 18 /min [facility] Body height 2019-12-12 19:02:00 180.3 cm [facility] Body weight 2019-12-12 19:02:00 70.126 kg [facility] BMI 2019-12-12 19:02:00 21.56 kg/m2 [facility] Systolic blood 2019-07-17 18:38:00 104 mm[Hg] [facility] Diastolic blood 2019-07-17 18:38:00 65 mm[Hg] [facility] Heart rate 2019-07-17 18:38:00 63 /min [facility] Body temperature 2019-07-17 18:38:00 36.67 [facility] Respiratory rate 2019-07-17 18:38:00 18 /min [facility] Body height 2019-07-17 18:38:00 180.3 cm [facility] Body weight 2019-07-17 18:38:00 71.215 kg [facility] BMI 2019-07-17 18:38:00 21.90 kg/m2 [facility] Systolic blood 2022-09-11 11:47:00 128 mm[Hg] [facility] Diastolic blood 2022-09-11 11:47:00 72 mm[Hg] [facility] Heart rate 2022-09-11 11:47:00 58 /min [facility] Body temperature 2022-09-11 11:47:00 36.56 [facility] Respiratory rate 2022-09-11 11:47:00 20 /min [facility] Oxygen saturation in 2022-09-11 11:47:00 100 /min [facility] Arterial blood by Medical Ce nter Pulse oximetry Systolic blood 2022-09-07 23:33:00 114 mm[Hg] [facility] Diastolic blood 2022-09-07 23:33:00 51 mm[Hg] [facility] Heart rate 2022-09-07 23:33:00 58 /min [facility] Body temperature 2022-09-07 23:33:00 37.06 [facility] Respiratory rate 2022-09-07 23:33:00 18 /min [facility] Oxygen saturation in 2022-09-07 23:33:00 98 /min [facility] Arterial blood by Medical Ce nter Pulse oximetry Body height 2022-09-07 20:33:00 185.4 cm [facility] Body weight 2022-09-07 20:33:00 69.491 kg [facility] BMI 2022-09-07 20:33:00 20.21 kg/m2 [facility] Heart rate 2021-12-09 08:50:00 63 /min [facility] Respiratory rate 2021-12-09 08:50:00 18 /min [facility] Oxygen saturation in 2021-12-09 08:50:00 96 /min [facility] Arterial blood by Medical Ce nter Pulse oximetry Systolic blood 2021-12-09 07:57:00 116 mm[Hg] [facility] Diastolic blood 2021-12-09 07:57:00 70 mm[Hg] [facility] Body temperature 2021-12-09 07:57:00 36.61 [facility] Body weight 2021-12-08 20:00:00 67.767 kg [facility] BMI 2021-12-08 20:00:00 19.71 kg/m2 [facility] Body height 2021-12-05 07:23:00 185.4 cm [facility] Procedures Procedure Date / Time Performing Clinician Source Performed BASIC METABOLIC PANEL 2022-09-11 05:23:00 Senia [facility] HEPATIC FUNCTION PANEL 2022-09-11 05:23:[address] [facility] MAGNESIUM 2022-09-11 05:23:00 Lightle, [facility] PHOSPHORUS 2022-09-11 05:23:00 Lightle, [facility] CBC W/PLT COUNT & AUTO 2022-09-11 05:23:00 Lightle, [facility] CBC W/PLT COUNT & AUTO 2022-09-11 05:23:00 Lightle, [facility] BASIC METABOLIC PANEL 2022-09-10 03:26[facility] [place] [facility] 2022-09-10 03:26:00 Lightle, [facility] MAGNESIUM 2022-09-10 03:26:00 Lightle, [facility] PHOSPHORUS 2022-09-10 03:26:00 Lightle, [facility] CBC W/PLT COUNT & AUTO 2022-09-10 03:26:00 Lightle, [facility] VANCOMYCIN LEVEL, TROUGH 2022-09-10 03:26:00 Meaghan Lipscomb CH I [facility] CBC W/PLT COUNT & AUTO 2022-09-10 03:26:00 Lightle, [facility] US ABDOMEN LIMITED 2022-09-09 19:26[facility] [place] [facility]KUB 1 VIEW 2022-09-09 13:27[facility] 2022-09-09 13:07:00 PjMinnie [facility] BILIRUBIN, DIRECT 2022-09-09 [facility] 2022-09-09 09:43:00 [facility] [place] [facility] 2022-09-09 09:43[facility]22-09-09 09:43:00 Lightle, [facility] PHOSPHORUS 2022-09-09 09:43:00 Lightle, [facility] CBC W/PLT COUNT & AUTO 2022-09-09 09:43:00 Lightle, [facility] DIFFERENTIAL [facility] CBC W/PLT COUNT & AUTO 2022-09-09 09:43:00 Lightle, [facility] DIFFERENTIAL [facility] XR CHEST 1 VIEW PORTABLE / 2022-09-08 18:51[facility] STREP PNEUMONIAE ANTIGEN 2022-09-08 17:19:00 Meaghan Lipscomb CH [facility] LACTIC ACID, VENOUS 2022-09-08 17:18:00 Dre [facility] PROCALCITONIN 2022-09-08 17:18:00 Dre [facility] BLOOD CULTURE 2022-09-08 17:16:00 Deisi [facility] COMPREHENSIVE METABOLIC 2022-09-08 04:32:00 Kari Guerra [facility] PANEL [facility] MAGNESIUM 2022-09-08 04:32:00 Mari [facility] CBC (HEMOGRAM ONLY) 2022-09-08 04:32:00 Kari Guerra [facility] SARS-COV2/RT-PCR ([facility] & 2022-09-07 06:24:00 Kari Guerra CH, I [facility] REF LABS) [facility] CT ABDOMEN/PELVIS WITH IV 2022-09-07 04:32:00 Claire Ewing CH, I [facility] BASIC METABOLIC PANEL 2022-09-07 02:23:00 Claire Ewing [facility] HEPATIC FUNCTION PANEL 2022-09-07 02:23:00 Claire Ewing [facility] LIPASE 2022-09-07 02:23:00 Esteban [facility] CBC W/PLT COUNT & AUTO 2022-09-07 02:22:00 Claire Ewing [facility] LACTIC ACID, VENOUS 2022-09-07 02:22:00 Claire Ewing [facility] CBC W/PLT COUNT & AUTO 2022-09-07 02:22:00 Claire Ewing [facility] URINALYSIS W/ REFLEX URINE 2022-09-07 00:38:00 Claire Ewing [facility] CULTURE [facility] URINE CULTURE 2022-09-07 00:38:00 Bud Claire [facility] ECG 12-LEAD 2022-09-06 23:05:36 Claire Ewing [facility] ECG 12-LEAD 2022-09-06 23:05:36 Unknown, Hl7 Doctor [facility] ECG 12-LEAD 2022-09-06 23:05:36 Unknown, Hl7 Doctor [facility] EKG-SCANNED 2022-09-06 00:00:00 Provider, Gloria CF RESPIRATORY CULTURE 2022-07-05 13:40:00 Oksana Goddard [facility] AMB REF TO 2022-07-05 11:45:20 [facility] GASTROENTEROLOGY [facility] Medicine CULTURE, RESPIRATORY, 2022-07-05 11:28:56 [facility] CYSTIC FIBROSIS Medicine FLU VACCINE QUAD 2022-07-05 11:22:08 [facility] Chuy ege of PRESERVATIVE FREE IM Medicine SPIROMETRY (IN CLINIC) 2022-07-05 00:00:[address] [facility] [address] ABDOMEN/PELVIS WITH IV 2022-06-27 05:18:00 De[address] CH I [facility] CBC W/PLT COUNT & AUTO 2022-06-27 01:32:00 Debi Briggs [facility] BASIC METABOLIC PANEL 2022-06-27 01:32:00 [place], [facility] HEPATIC FUNCTION PANEL 2022-06-27 01:32:00 [place], [facility] LIPASE 2022-06-27 01:32:00 Chester, [facility] CBC W/PLT COUNT & AUTO 2022-06-27 01:32[facility]00 [facility]-GLUCOSE METER 2022-06-22 17:11:00 [facility] [facility] POCT-GLUCOSE METER 2022-06-22 12:56:00 [place] [facility] POCT-GLUCOSE METER 2022-06-22 05:50:00 [place] [facility] BASIC METABOLIC PANEL 2022-06-22 03:56:00 [place] [facility] CALCIUM, IONIZED 2022-06-22 03:56:00 [place] [facility] PHOSPHORUS 2022-06-22 03:56:00 [place] [facility] [place] CBC W/PLT COUNT & AUTO 2022-06-22 03:56:[address] [facility] MAGNESIUM 2022-06-22 03:56:00 [place] [facility] [place] CBC W/PLT COUNT & AUTO 2022-06-22 03:56:[address] [facility] POCT-GLUCOSE METER 2022-06-22 00:16:00 [place] [facility] POCT-GLUCOSE METER 2022-06-21 17:12:00 [facility] POCT-GLUCOSE METER 2022-06-21 12:49:00 [facility] POCT-GLUCOSE METER 2022-06-21 08:18:00 [facility] BASIC METABOLIC PANEL 2022-06-21 04:58:00 [facility] 2022-06-21 04:58:00 [facility]US 2022-06-21 04:58:00 [facility] W/PLT COUNT & AUTO 2022-06-21 04:58:00 Tonny Meneses CH, I [facility] MAGNESIUM 2022-06-21 04:58:00 [facility] W/PLT COUNT & AUTO 2022-06-21 04:58:[address] [facility] POCT-GLUCOSE METER 2022-06-20 21:02:00 [facility] POCT-GLUCOSE METER 2022-06-20 17:36:00 [facility] POCT-GLUCOSE METER 2022-06-20 12:43:00 [facility] POCT-GLUCOSE METER 2022-06-20 09:50:00 [facility] POCT-GLUCOSE METER 2022-06-20 08:16:00 [facility] BASIC METABOLIC PANEL 2022-06-20 04:51:00 [facility] 2022-06-20 04:51:00 [facility]OS[facility]US 2022-06-20 04:51:00 [facility] CBC W/PLT COUNT & AUTO 2022-06-20 04:51:[address] [facility] MAGNESIUM 2022-06-20 04:51:00 [facility] CBC W/PLT COUNT & AUTO 2022-06-20 04:51:[address] [facility] POCT-GLUCOSE METER 2022-06-19 21:09:00 [facility] POCT-GLUCOSE METER 2022-06-19 17:24:00 [facility]SE METER 2022-06-19 12:16:[facility]OLIC PANEL 2022-06-19 04:37:00 Emma [facility] MAGNESIUM 2022-06-19 04:37:00 Emma [facility] CBC W/PLT COUNT & AUTO 2022-06-19 04:37:[facility] & AUTO 2022-06-19 04:37:[address] [facility] [facility]BDOMEN/PELVIS WITH IV 2022-06-18 23:25:00 Meredith Harry [facility] CONTRAST [facility] POCT-GLUCOSE METER 2022-06-18 23:24:00 [facility] BLOOD C[facility] 2022-06-18 21:06:00 [facility] SARS-COV2/RT-PCR ([facility] & 2022-06-18 21:06:00 Graham Singh [facility] REF LABS) [facility] CBC W/PLT COUNT & AUTO 2022-06-18 21:06:00 Meredith Harry [facility] LACTIC ACID, VENOUS 2022-06-18 21:06:00 Meredith Harry [facility] COMPREHENSIVE METABOLIC 2022-06-18 21:06:00 [facility] PROTHROMBIN TIME/INR 2022-06-18 21:06:00 [facility] APTT 2022-06-18 21:06:[address] [facility] CBC W/PLT COUNT & AUTO 2022-06-18 21:06:00 Meredith Harry [facility] ECG 12-LEAD 2022-06-18 17:50:02 Unknown, [facility] ECG 12-LEAD 2022-06-18 17:50:02 Unknown, [facility] ECG 12-LEAD 2022-06-18 17:50:02 Unknown, [facility] EKG-SCANNED 2022-06-18 00:00:00 Provider, Gloria CF RESPIRATORY CULTURE 2022-01-14 11:54:00 Jillian Napier [employer] CULTURE + SMEAR 2022-01-14 11:54:00 [facility] SPIN/CONCENTRATION CHARGE 2022-01-14 11:54:00 Qu[facility]en [facility] C[facility] + SMEAR 2022-01-14 11:53:00 [facility] C[facility] + SMEAR 2021-12-30 16:13:00 Tejinder Burch [employer] CULTURE + SMEAR 2021-12-30 16:13:00 Tejinder Burch [facility] (SPUTUM ONLY) [facility] CF RESPIRATORY CULTURE 2021-12-30 16:13:00 Tejinder Burch [employer] [facility] SPIN/CONCENTRATION CHARGE 2021-12-30 16:13:00 MarcinTejinder khan [facility] CULTURE, RESPIRATORY, 2021-12-30 16:13:00 [facility] CYSTIC FIBROSIS Medicine [place] DEMO \\T\\/OR EVAL,PT 2021-12-30 16:10:09 [facility],AEROSOL DEVICE Medicine CBC W/AUTO DIFF WITH 2021-12-30 15:28:00 [facility] Medicine COMPREHENSIVE METABOLIC 2021-12-30 15:28:00 [facility] Medicine PROTIME-INR 2021-12-30 15:28:00 [facility] VITAMIN A 2021-12-30 15:28:00 [facility] VITAMIN D 25 HYDROXY 2021-12-30 15:28:00 [facility] VITAMIN E 2021-12-30 15:28:00 [facility] TESTOSTERONE 2021-12-30 15:28:00 [facility] HEMOGLOBIN A1C 2021-12-30 15:28:00 [facility] LIPID PANEL 2021-12-30 15:28:00 [facility] IGE 2021-12-30 15:28:00 [facility] TSH 2021-12-30 15:28:00 [facility] HANDICAPPED PLACARD 2021-12-30 15:17:11 [facility] FUNGAL CULTURE 2021-12-30 15:09:43 [facility] ACID FAST CULTURE 2021-12-30 15:09:43 [facility] SPIROMETRY (IN CLINIC) 2021-12-30 00:00:00 [facility] XR ABDOMEN/KUB 1 VIEW 2021-12-06 07:44:00 Artie [facility] CBC (HEMOGRAM ONLY) 2021-12-06 04:55:00 [facility]OLIC PANEL 2021-12-06 04:55:00 [facility] POCT-GLUCOSE METER 2021-12-05 17:37:[address] [facility] ABDOMEN/PELVIS WITH IV 2021-12-05 09:41:00 Jacob Calle [facility] CONTRAST [facility] SARS-COV2/RT-PCR ([facility] & 2021-12-05 08:55:00 Jacob Calle [facility] REF LABS) [facility] CBC W/PLT COUNT & AUTO 2021-12-05 07:45:[address] [facility] COMPREHENSIVE METABOLIC 2021-12-05 07:45:00 Jacob Calle [facility] LIPASE 2021-12-05 07:45:00 Jacob Calle [facility] CBC W/PLT COUNT & AUTO 2021-12-05 07:45:[address] [facility] XR ABDOMEN/KUB 1 VIEW 2021-11-30 09:11:00 Patricio Loja [facility] BASIC METABOLIC PANEL 2021-11-30 08:50:00 Pratik Layton [facility] CBC W/PLT COUNT & AUTO 2021-11-26 05:05:00 Civunvinayaka [facility] BASIC METABOLIC PANEL 2021-11-26 05:05:00 Civunigunta, [facility] CBC W/PLT COUNT & AUTO 2021-11-26 05:05:[address] [facility] CT ABDOMEN/PELVIS WITH IV 2021-11-25 03:19:[address] [facility] SARS-COV2/RT-PCR ([facility] & 2021-11-25 01:09:00 Brad Galindo [facility] CBC W/PLT COUNT & AUTO 2021-11-25 01:09:[address] [facility] COMPREHENSIVE METABOLIC 2021-11-25 01:09:00 Brad Galindo [facility] MAGNESIUM 2021-11-25 01:09:00 Brad Galindo [facility] HIGH SENSITIVITY TROPONIN 2021-11-25 01:09:00 Brad Galindo [facility] LIPASE 2021-11-25 01:09:00 Brad Galindo [facility] CBC W/PLT COUNT & AUTO 2021-11-25 01:09:[address] [facility] CT ABDOMEN/PELVIS WITH IV 2021-11-14 00:11:00 Lance Steen [facility] COMPREHENSIVE METABOLIC 2021-11-13 22:53:00 KentPuma romero [facility] LIPASE 2021-11-13 22:53:00 Kent, [facility] MAGNESIUM 2021-11-13 22:53:00 [facility] URINE CULTURE 2021-11-13 22:18:00 [facility] URINALYSIS W/ REFLEX URINE 2021-11-13 22:18:00 [facility] CULTURE [facility] SARS-COV2/RT-PCR ([facility] & 2021-11-13 22:12:00 [facility] REF LABS) Medical [facility] CBC W/PLT COUNT & AUTO 2021-11-13 22:12:00 [facility] DIFFERENTIAL [facility] CBC W/PLT COUNT & AUTO 2021-11-13 22:12:00 [facility] XR ABDOMEN/KUB 1 VIEW 2021-11-13 21:30:00 [facility] PORTABLE [facility] XR CHEST 1 VIEW PORTABLE / 2021-11-13 21:30:00 [facility] BEDSIDE [facility] ECG 12-LEAD 2021-11-13 19:46:04 Unknown, [facility] ECG 12-LEAD 2021-11-13 19:46:04 Unknown, [facility] ECG 12-LEAD 2021-11-13 19:46:04 Unknown, [facility] EKG-SCANNED 2021-11-13 00:00:00 ProviderGloria PHOSPHORUS 2021-08-06 04:54:00 Poncho [facility] BASIC METABOLIC PANEL (7) 2021-08-06 04:54:00 Poncho [facility] MAGNESIUM 2021-08-06 04:54:00 Poncho [facility] XR ABDOMEN / KUB 1 VIEW 2021-08-05 11:57:00 Ryan-Samira Mabry [facility] PHOSPHORUS 2021-08-05 05:07:00 Poncho [facility] BASIC METABOLIC PANEL (7) 2021-08-05 05:07:00 Nalam, Ohney Lyssa [facility] MAGNESIUM 2021-08-05 05:07:00 Nalam, Honey Lyssa [facility] PHOSPHORUS 2021-08-04 05:33:00 Nalam, Honey Lyssa [facility] BASIC METABOLIC PANEL (7) 2021-08-04 05:33:00 Nalam, Honey Lyssa [facility] MAGNESIUM 2021-08-04 05:33:00 Nalam, Honey Lyssa [facility] BASIC METABOLIC PANEL (7) 2021-08-03 04:23:00 Kesha I [facility] MAGNESIUM 2021-08-03 04:23:00 Kesha [facility] PHOSPHORUS 2021-08-03 04:23:00 PonchoHoney [facility] SARS-COV2/RT-PCR ([facility] & 2021-08-01 21:50:00 Yoli [facility] REF LABS) [facility] CT ABDOMEN/PELVIS WITH IV 2021-08-01 20:44:00 Elie Youngblood [facility] LIPASE 2021-08-01 19:18:00 Puma [facility] COMPREHENSIVE METABOLIC 2021-08-01 19:17:00 lEie Youngblood [facility] CBC W/PLT COUNT & AUTO 2021-08-01 19:17:[address] [facility] CBC W/PLT COUNT & AUTO 2021-08-01 19:17:[address] [facility] URINALYSIS 2020-10-19 04:37:00 Shannon Momin [facility] CT ABDOMEN PELVIS W 2020-10-19 04:02:25 Shannon Momin [facility] LIPASE 2020-10-19 03:17:00 Shannon Momin [facility] TROPONIN I 2020-10-19 03:17:00 Shannon Momin [facility] HEPATIC FUNCTION PANEL 2020-10-19 03:17:00 Shannon Momin [facility] ([id number]) (ALB,T.PRO,BILI Medical Branch T,BU/BC,ALT,AST,ALK PHOS) BASIC METABOLIC PANEL (NA, 2020-10-19 03:17:00 Shannon Momin [facility] K, CL, CO2, GLUCOSE, BUN, Medica l Branch CREATININE, CA) CBC WITH DIFF 2020-10-19 03:17:00 Shannon Momin [facility] COVID-19 (ID NOW RAPID 2020-10-19 03:17:00 Shannon Momin [facility] TESTING) [facility] HEPATIC FUNCTION PANEL 2019-12-12 20:30:00 Oksana Goddard [facility] SPIROMETRY (IN CLINIC) 2019-12-12 00:00:00 Oksana Goddard [facility] COMPREHENSIVE METABOLIC 2019-07-17 18:26:00 Rupesh [facility] Medicine LIPID PANEL 2019-07-17 18:26:00 Rupesh [facility] HEMOGLOBIN A1C 2019-07-17 18:26:00 [facility] TEST[facility]ONE 2019-07-17 18:26:00 [facility] TSH 2019-07-17 18:26:00 Rupesh [facility] CBC W/AUTO DIFF WITH 2019-07-17 18:26:00 Rupesh [facility] Medicine PROTIME-INR 2019-07-17 18:26:00 Rupesh [facility] VITAMIN D 25 HYDROXY 2019-07-17 18:26:00 Rupesh [facility] SPIROMETRY (IN CLINIC) 2019-07-17 00:00:00 Oksana Goddard [facility] Plan of Care Planned Activity Planned Date Details Comments Source Future Scheduled 2028-09-[address] [facility] 00:00:00 malignant neoplasm Medical C enter of colon (procedure) [code = 290085490] Future Scheduled 2028-09-[address] [facility] 00:00:00 malignant neoplasm Medical C enter of colon (procedure) [code = 418325385] Future Scheduled 2028-09-[address] [facility] 00:00:00 malignant neoplasm Medical C enter of colon (procedure) [code = 946848196] Future Scheduled 2028-09-[address] [facility] 00:00:00 malignant neoplasm Medical C enter of colon (procedure) [code = 591623193] Future Scheduled 2028-09-[address] [facility] 00:00:00 malignant neoplasm Medical C enter of colon (procedure) [code = 289864529] Future Scheduled 2028-09-[address] [facility] 00:00:00 malignant neoplasm Medical C enter of colon (procedure) [code = 090134676] Future Scheduled 2026-12-[address] [facility] 00:00:00 (procedure) [code = [facility] 70996494] Future Scheduled 2026-12-[address] [facility] 00:00:00 (procedure) [code = [facility] 14118993] Future Scheduled 2026-12-[address] [facility] 00:00:00 (procedure) [code = [facility] 18107689] Future Scheduled 2023-09-[address] [facility] 00:00:00 [facility] r Screening (12+) [code = Tobacco Cessation Counseling and Screening (12+)] Future Scheduled 2023-09-[address] [facility] Test 00:00:00 [facility] r Screening (12+) [code = Tobacco Cessation Counseling and Screening (12+)] Future Scheduled 2022-06-[address] [facility] Test 00:00:00 (#1) [code = [facility] Center INFLUENZA VACCINE (#1)] Future Scheduled 2021-10-[address] [facility] Test 00:00:00 (12+) [code = Medical Center DEPRESSION SCREENING (12+)] Future Scheduled 2021-10-[address] [facility] Test 00:00:00 (12+) [code = Medical Center DEPRESSION SCREENING (12+)] Future Scheduled 2020-06-[address] [facility] Test 00:00:00 0-64 YRS (2 - PPSV23 Medical Center or PCV20) [code = PNEUMOCOCCAL VACCINE 0-64 YRS (2 - PPSV23 or PCV20)] Future Scheduled 2020-06-[address] [facility] Test 00:00:00 0-64 YRS (2 - PPSV23 Medical Center or PCV20) [code = PNEUMOCOCCAL VACCINE 0-64 YRS (2 - PPSV23 or PCV20)] Future Scheduled 2020-06-[address] [facility] Test 00:00:00 0-64 YRS (2 - PPSV23 Medical Center or PCV20) [code = PNEUMOCOCCAL VACCINE 0-64 YRS (2 - PPSV23 or PCV20)] Future Scheduled 2019-02-[address] [facility] 00:00:00 WELLNESS (YEAR 2 or Medical Center FIRST YEAR if no IPPE) [code = MEDICARE ANNUAL WELLNESS (YEAR 2 or FIRST YEAR if no IPPE)] Future Scheduled 2019-02-[address] [facility] 00:00:00 WELLNESS (YEAR 2 or Medical Center FIRST YEAR if no IPPE) [code = MEDICARE ANNUAL WELLNESS (YEAR 2 or FIRST YEAR if no IPPE)] Future Scheduled 2019-02-[address] [facility] 00:00:00 WELLNESS (YEAR 2 or Medical Center FIRST YEAR if no IPPE) [code = MEDICARE ANNUAL WELLNESS (YEAR 2 or FIRST YEAR if no IPPE)] Future Scheduled 1994 DTAP/TDAP/TD [facility] 00:00:00 VACCINES (1 - Tdap) Medical Center [code = DTAP/TDAP/TD VACCINES (1 - Tdap)] Future Scheduled 1994 DTAP/TDAP/TD [facility] 00:00:00 VACCINES (1 - Tdap) Medical Center [code = DTAP/TDAP/TD VACCINES (1 - Tdap)] Future Scheduled 1994 DTAP/TDAP/TD [facility] 00:00:00 VACCINES (1 - Tdap) Medical Center [code = DTAP/TDAP/TD VACCINES (1 - Tdap)] Future Scheduled [address] [facility] 00:00:00 SCREENING [code = Medical Ce nter HEPATITIS C SCREENING] Future Scheduled [address] [facility] 00:00:00 SCREENING [code = Medical Ce nter HEPATITIS C SCREENING] Future Scheduled [address] [facility] 00:00:00 SCREENING [code = Medical Ce nter HEPATITIS C SCREENING] Future Scheduled 1976-04-19 COVID-[address] [facility] 00:00:00 (#1) [code = [facility] Center COVID-19 VACCINE (#1)] Future Scheduled 1976-04-19 COVID-[address] [facility] 00:00:00 (#1) [code = [facility] Center COVID-19 VACCINE (#1)] Future Scheduled 1976-04-19 COVID-[address] [facility] 00:00:00 (#1) [code = [facility] Center COVID-19 VACCINE (#1)] Future Scheduled [address] [facility] 00:00:00 (combo) [code = CT Medical C enter Colonography (combo)] Future Scheduled [address] [facility] 00:00:00 malignant neoplasm Medical C enter of colon (procedure) [code = 800935566] Future Scheduled [address] [facility] 00:00:00 malignant neoplasm Medical C enter of colon (procedure) [code = 161064990] Future Scheduled 1975 Sigmoidoscopy [code [facility] 00:00:00 = Sigmoidoscopy] Medical [facility] Future Scheduled [address] [facility] 00:00:00 (combo) [code = CT Medical C enter Colonography (combo)] Future Scheduled [address] [facility] 00:00:00 malignant neoplasm Medical C enter of colon (procedure) [code = 269988012] Future Scheduled [address] [facility] 00:00:00 malignant neoplasm Medical C enter of colon (procedure) [code = 726020454] Future Scheduled 1975 Sigmoidoscopy [code [facility] Test 00:00:00 = Sigmoidoscopy] [facility] Future Scheduled [address] [facility] 00:00:00 (combo) [code = CT Medical C enter Colonography (combo)] Future Scheduled [address] [facility] 00:00:00 malignant neoplasm Medical C enter of colon (procedure) [code = 659249704] Future Scheduled [address] [facility] 00:00:00 malignant neoplasm Medical C enter of colon (procedure) [code = 551109341] Future Scheduled 1975 Sigmoidoscopy [code [facility] Test 00:00:00 = Sigmoidoscopy] Medical [facility] Future Scheduled PANCREATIC ELASTASE Ordered: [facility] [place] Test - FECAL [code = 12/12/2019 of Medicine 98134-6] Future Scheduled TETANUS SHOT (ADULT) [employer] Test [code = TETANUS SHOT of Medi cine (ADULT)] Future Scheduled HIV SCREENING [code [employer] Test = HIV SCREENING] of Medicine Future Scheduled MEDICARE AWV [facility] Test (Initial) [code = of Medicin e MEDICARE AWV (Initial)] Future Scheduled COLON CANCER [facility] Test SCREENING: of Medicine COLONOSCOPY [code = COLON CANCER SCREENING: COLONOSCOPY] Future Scheduled CULTURE, Ordered: [facility] Test RESPIRATORY, CYSTIC 04/16/2020 of Medic ine FIBROSIS [code = NOCPT] Future Scheduled TETANUS SHOT (ADULT) [employer] Test [code = TETANUS SHOT of Medi cine (ADULT)] Future Scheduled HIV SCREENING [code [employer] Test = HIV SCREENING] of Medicine Future Scheduled MEDICARE AWV [facility] Test (Initial) [code = of Medicin e MEDICARE AWV (Initial)] Future Scheduled FLU VACCINE > 6 [facility] Test MONTHS [code = FLU of Medici ne VACCINE > 6 MONTHS] Future Scheduled COLON CANCER [facility] Test SCREENING: of Medicine COLONOSCOPY [code = COLON CANCER SCREENING: COLONOSCOPY] Future Scheduled ACID FAST CULTURE Ordered: [facility] Test [code = 543-9] 07/17/2019 of Medicine Future Scheduled CULTURE, Ordered: [facility] Test RESPIRATORY, CYSTIC 07/17/2019 of Medic ine FIBROSIS [code = NOCPT] Future Scheduled FUNGAL CULTURE [code Ordered: [facility] Test = 601-5] 07/17/2019 of Medicine Future Scheduled GLUCOSE FASTING Ordered: [facility] Test [code = 1558-6] 07/17/2019 of Medicine Future Scheduled GLUCOSE TOLERANCE Ordered: [facility] Test 2HR [code = 76962] 07/17/2019 of Medici ne Future Scheduled [place] DEMO &/OR EVAL,PT Ordered: [facility] Test USE,AEROSOL DEVICE 07/17/2019 of Medici ne [code = 02489] Future Scheduled VITAMIN A [code = [facility] Test 2923-1] of Medicine Future Scheduled VITAMIN E [code = [facility] Test 1823-4] of Medicine Future Scheduled IGE [code = 21770-4] [facility] Test of Medicine Future Scheduled MEDICARE AWV [code = [facility] Test MEDICARE AWV] of Medicine Future Scheduled TETANUS SHOT (ADULT) [facility] Test [code = TETANUS SHOT of Medi cine (ADULT)] Future Scheduled HIV SCREENING [code [facility] [place] Test = HIV SCREENING] of Medicine Future Scheduled COLON CANCER [facility] Test SCREENING: of Medicine COLONOSCOPY [code = COLON CANCER SCREENING: COLONOSCOPY] Future Scheduled DEXA BONE DENSITY 1 Occurrences [facility] Test SPINE AND HIP starting of Medicine [code = 27906] 07/17/2019 until 07/17/2020 Future Appointment 2048-09-29 Tejinder Burch MD, [address] [employer] 00:00:00 [facility] Suite of Medic ine [address] [place] [address] Future Appointment 2048-09-29 Tejinder Burch MD, [address] [employer] 00:00:00 [facility]; Suite of Medic ine [address] [place] [address] Future Appointment 2048-09-29 Tejinder Burch MD, [address] [employer] 00:00:00 [facility]; Suite of Medic ine [address] [place] [address] Future Appointment 2048-09-28 Tejinder Burch MD, [address] [employer] 00:00:00 [facility]; Suite [place] [address] Future Appointment 2048-09-28 Tejinder Burch MD, [address] [employer] 00:00:00 [facility]; Suite of Medic ine [address] [place] [address] Future Appointment 2048-09-28 Tejinder Burch MD, [address] [employer] 00:00:00 [facility]; Suite of Medic ine [address] [place] [address]365 Encounters Start End Encounter Admission Attending Care Care Encounter Source Date/Time Date/Time Type Type Clinicians Facility Department ID 2022-09-06 2022-09-[address] [facility] [id number] [facility] 21:10:00 16:18:00 Encounter Debi Briggs, [facility] Meaghan Lipscomb 2022-09-06 2022-09-11 Inpatient ER [facility] Emergency [id number] [facility] 21:10:00 16:18:00 [facility] 2022-09-06 2022-09-06 Outpatient [facility] [id number] [facility] 00[facility]00:00 23:59:00 [facility] 2022-09-06 2022-09-[address] [facility] [id number] 00:00:00 00:00:00 Only [facility] 2022-09-06 2022-09-06 Travel [facility] [id number] [facility] 00:00:00 [facility] 2022-09-06 2022-09-[address] [facility] [id number] 00:00:00 00:00:00 Only [facility] 2022-09-06 2022-09-06 Travel [facility] [id number] [facility] 00:[facility]00 00:00:00 [facility] 2022-07-06 2022-07-06 Outpatient [facility] [id number] [facility] 09:35:01 09:35:01 2022-07-05 2022-07-05 [facility] [id number] 14:15:00 14:30:00 Only Oksana Bourne Debbie [facility] 2022-07-05 2022-07-05 [facility] [id number] 14:15:00 14:30:00 Only Oksana Bourne [facility] 2022-07-05 2022-07-05 Outpatient KUSUM GODDARD [facility] [id number] [facility] 10:21:37 12:09:09 OKSANA Kirk[place] e of Medicin e 2022-06-27 2022-06-27 Emergency [place] [id number] 01:04:00 06:00:00 [facility] 2022-06-27 2022-06-27 Emergency ER Debi Briggs [facility] [id number] 01:04:00 06:00:00 [facility] 2022-06-27 2022-06-27 Emergency ER [place] [facility] Emergency [id number] SLE 01:04:00 06:00:00 2022-06-27 2022-06-27 Travel [facility] [id number] [facility] 00:00:00 00:00:00 [facility] 2022-06-27 2022-06-27 Travel [facility] [id number] [facility]00 [facility] 2022-06-18 2022-06-22 [facility] [id number] [facility] 17[facility]52:00 19:32:00 Encounter Chaparro Farah [facility] 2022-06-18 2022-06-22 [facility] [id number] [facility] 17:52:00 19:32:00 Encounter Chaparro Farah [facility] 2022-06-18 2022-06-22 Inpatient ER [facility] Emergency [id number] SLE 17:52:00 19:32:00 [facility] 2022-06-18 2022-06-18 Outpatient [facility] [id number] [facility] 00:00:00 23:59:00 [facility] 2022-06-18 2022-06-18 Travel [facility] [id number] [facility] 00:[facility]:00 [facility] 2022-06-18 2022-06-[address] [facility] [id number] 00:00:00 00:00:00 Only [facility] 2022-06-18 2022-06-[address] [facility] [id number] 00:00:00 00:00:00 Only [facility] 2022-06-18 2022-06-18 Travel [facility] [id number] [facility] 00:00:00 [facility] 2022-01-18 2022-01-18 Outpatient [facility] [id number] [facility] 17:05:19 17:05:19 2022-01-14 2022-01-[address] [facility] [id number] 12:00:00 12:15:00 Only [facility] 2022-01-14 2022-01-[address] [facility] [id number] 12:00:00 12:15:00 Only [facility] 2022-01-14 2022-01-14 Outpatient QUYEN [facility] [id number] [facility] 08:35:17 09:55:24 JILLIAN [facility] 2022-01-01 2022-01-01 Outpatient [facility] [id number] [facility] 15:16:13 15:16:13 2021-12-30 2021-12-[address] [facility] [id number] 16:15:00 16:30:00 Only [facility] 2021-12-30 2021-12-[address] [facility] [id number] 16:15:00 16:30:00 Only [facility] 2021-12-30 2021-12-30 Outpatient TEJINDER BURCH [facility] [id number] [facility] 14:18:15 15:15:02 [facility] 2021-12-29 2021-12-29 Outpatient IVONE [facility] [id number] [facility] 15:12:46 17:35:51 SUNEAL [facility] 2021-12-05 2021-12-09 [facility] Jacob Calle [facility] [id number] [facility] 07:23:00 14:47:00 [facility] 2021-12-05 2021-12-09 [facility] ER Jacob Calle [facility] [id number] 07:23:00 14:47:00 [facility]05 2021-12-09 Inpatient ER [facility] Emergency [id number] [facility] 07:23:00 14:47:00 [facility] 2021-11-25 2021-12-01 [facility] Brad Galindo [facility] [id number] 00:40[facility]00 12:00:00 [facility] 2021-11-25 2021-12-01 [facility] Brad Galindo [facility] [id number] [facility] 00:40:00 12:00:00 Encounter [facility] 2021-11-25 2021-12-01 Inpatient ER [facility] Emergency [id number] SLE 00:40:00 12:00:00 [facility] 2021-11-25 2021-11-25 Travel [facility] [id number] [facility] 00:[facility]00 00:00:00 [facility] 2021-11-25 2021-11-25 Travel [facility] [id number] [facility] 00:[facility]00 00:00:00 [facility] 2021-11-13 2021-11-14 Emergency [facility] [id number] 19:43:00 04:21:00 [facility] 2021-11-13 2021-11-14 [facility] [id number] 19:43:00 04:21:00 [facility] 2021-11-13 2021-11-14 Emergency ER YOLI [facility] Emergency [id number] SLE 19:43:00 04:21:00 [facility] 2021-11-13 2021-11-13 Outpatient [facility] [id number] [facility] 00:00:00 23:59:00 [facility] 2021-11-13 2021-11-[address] [facility] [id number] 00:00:00 00:00:00 [facility] 2021-11-13 2021-11-13 Travel [facility] [id number] [facility] 00:[facility]:00 00:00:00 [facility] 2021-11-13 2021-11-[address] [facility] [id number] 00:00:00 00:00:00 [facility] 2021-11-13 2021-11-13 Travel [facility] [id number] [facility] 00:00:00 00:00:00 [facility] 2021-08-13 2021-08-13 Outpatient TERRANCE [facility] [id number] [facility] 00:00:00 00:00:00 WILLIS 2021-08-01 2021-08-06 Hospital ER Yoli [facility] [id number] 18:35:00 16:55:00 En[facility] Samira Moncure 2021-08-01 2021-08-06 Inpatient ER HA-ISARIL, [facility] Emergency [id number] SLE 18:35:00 16:55:00 SAMIRA 2021-08-01 2021-08-01 Travel [facility] [id number] [facility] 00:[facility]00 00:00:00 [facility] 2021-04-12 2021-04-12 Outpatient [facility] [id number] [facility] 00:00:00 23:59:00 [facility] 2021-04-12 2021-04-12 Emergency ER SLE Emergency [id number] [facility] 20:54:00 20:54:00 2021-03-26 2021-03-26 Outpatient EL [facility] [id number] [facility] 00:00:00 00:00:00 2021-03-25 2021-03-25 Outpatient RUPESH [facility] [id number] [facility] 13:59:09 15:59:50 OKSANA [facility] 2021-03-25 2021-03-25 Outpatient KATIE [facility] [id number] [facility] 07:36:01 08:05:39 BALAJI [facility] 2021-02-19 2021-02-19 Emergency ER SLE Emergency [id number] [facility] 15:12:00 15:12:00 2021-01-06 2021-01-06 Outpatient TERRANCE NAPIER [facility] [id number] SLE 00:00:00 00:00:00 [facility] 2021-01-06 2021-01-06 Outpatient EL SLE SLE [id number] [facility] 00:00:00 00:00:00 2021-01-06 2021-01-06 Outpatient QUYEN [facility] SLE [id number] SLE 00:00:00 00:00:00 [facility] 2020-10-25 2020-10-25 Emergency ER SLE Emergency [id number] [facility] 00:15:00 00:15:00 2020-10-19 2020-10-19 Emergency ER SLE Emergency [id number] [facility] 18:18:00 18:18:00 2020-10-18 2020-10-19 [facility] [id number] [facility] [place] 21:04:00 01:30:00 Shannon Contreras [id number] [facility] [place] 4.2.7.2.686 [facility] [phone] [facility] 084 [place] 2020-10-18 2020-10-19 Emergency Merrill [facility] [id number] 21:04:00 01:30:00 Shannon Contreras [id number] [place] 4.2.7.2.686 [facility] [id number] 2020-10-18 2020-10-18 Emergency X MERRILL, [facility] ERT [id number] [facility] 21:04:00 21:04:00 SHANNON [facility] 2020-10-14 2020-10-14 Emergency ER SLE Emergency [id number] [facility] 23:24:00 23:24:00 2020-06-07 2020-06-07 Emergency ER [facility] Emergency [id number] [facility] 18:37:00 18:37:00 2020-05-06 2020-05-06 Emergency ER [facility] Emergency [id number] [facility] 20:45:00 20:45:00 2020-04-17 2020-04-17 Emergency ER [facility] Emergency [id number] [facility] 06:45:00 06:45:00 2020-04-17 2020-04-17 Emergency ER SLEH [facility] [id number] [facility] 00:00:00 00:00:00 2020-04-16 2020-04-16 Office Tejinder Burch BCM [id number] [facility] 13:49:02 16:37:49 Visit AMBULATOR [id number] College Y 0.2.7.2.686 of [id number] Medi viral 350 e 2019-12-12 2019-12-12 Office KUSUM Goddard 1.2.840.114 [id number] [facility] 12:58:52 15:16:29 Visit Oksana AMBULATOR [id number] College Y 0.2.7.2.686 of [id number] Medi viral 350 e 2019-07-17 2019-07-17 Office Quyen BCM [id number] [facility] 12:29:53 14:57:09 Visit Maribely AMBULATOR [id number] College Y 0.2.7.2.686 of [id number] Medi viral 350 e Results Test Description Test Time Test Comments Results Result Comments Source BLOOD CULTURE 2022-09-13 19:01:42 Test Item Value Reference Range Interpretation Comme nts CULTURE (BEAKER) (test code = 1095) No growth in 5 days BLOOD [id number] 19:01:42 Test Item Value Reference Range Interpretation Comments CULTURE (BEAKER) (test No growth in 5 days code = 1095) HEPATIC FUNCTION [id number] 06:14:49 Test Item Value Reference Range Interpretation Comments TOTAL PROTEIN (BEAKER) (test code = 5.5 gm/dL 6.0-8.3 L 770) ALBUMIN (BEAKER) (test code = 1145) 3.1 g/dL 3.5-5.0 L BILIRUBIN TOTAL (BEAKER) (test code 0.4 mg/dL 0.2-1.2 = 377) BILIRUBIN DIRECT (BEAKER) (test 0.2 mg/dL 0.1-0.5 code = 706) ALKALINE PHOSPHATASE (BEAKER) (test 54 U/L 40-150 code = 346) AST (SGOT) (BEAKER) (test code = 26 U/L 5-34 353) ALT (SGPT) (BEAKER) (test code = 17 U/L 6-55 347) Director Apparel ID - [id number] 06:14:48 Test Item Value Reference Range Interpretation Comments MAGNESIUM (BEAKER) (test code = 1.6 mg/dL 1.6-2.6 627) Director Apparel ID - [id number] 06:14:48 Test Item Value Reference Range Interpretation Comments PHOSPHORUS (BEAKER) (test code = 3.2 mg/dL 2.3-4.7 604) Director Apparel ID - BSBASIC METABOLIC [id number] 06:14:47 Test Item Value Reference Range Interpretation Comments SODIUM (BEAKER) 135 meq/L 136-145 L (test code = 381) POTASSIUM 3.9 meq/L 3.5-5.1 (BEAKER) (test code = 379) CHLORIDE (BEAKER) 105 meq/L 98-107 (test code = 382) CO2 (BEAKER) 26 meq/L 22-29 (test code = 355) BLOOD UREA 6 mg/dL 7-21 L NITROGEN (BEAKER) (test code = 354) CREATININE 1.07 mg/dL 0.57-1.25 (BEAKER) (test code = 358) GLUCOSE RANDOM 96 mg/dL 70-105 (BEAKER) (test code = 652) CALCIUM (BEAKER) 8.3 mg/dL 8.4-10.2 L (test code = 697) EGFR (BEAKER) 88 Interpretatio n of eGFR (test code = mL/min/1.73 values Stage De scription 1092) sq m Result G1 Marlena l or high >=90 G2 Mildly decreased 60-89 G3a Mildl y to moderately 45-5 9 G3b Moderately to s everely 30-44 G4 Severl y decreased 15-29 G5 Kidney failure <15Reported eGF R is based on the CKD-EPI 2020 equation that d oes not use a race coefficientEsti mated GFR is not as accur ate as Creatinine Collette samy in predicting glom erular filtration rate . Estimated GFR i s not applicable for dialysis patients Director Apparel ID - BSCBC W/PLT COUNT & AUTO [id number] 05:41:16 Test Item Value Reference Range Interpretation Comments WHITE BLOOD CELL COUNT (BEAKER) 2.8 K/ L 3.5-10.5 L (test code = 775) RED BLOOD CELL COUNT (BEAKER) 3.69 M/ L 4.63-6.08 L (test code = 761) HEMOGLOBIN (BEAKER) (test code = 11.4 GM/DL 13.7-17.5 L 410) HEMATOCRIT (BEAKER) (test code = 33.9 % 40.1-51.0 L 411) MEAN CORPUSCULAR VOLUME (BEAKER) 92 fL 79-92 (test code = 753) MEAN CORPUSCULAR HEMOGLOBIN 30.9 pg 25.7-32.2 (BEAKER) (test code = 751) MEAN CORPUSCULAR HEMOGLOBIN CONC 33.6 GM/DL 32.3-36.5 (BEAKER) (test code = 752) RED CELL DISTRIBUTION WIDTH 14.0 % 11.6-14.4 (BEAKER) (test code = 412) PLATELET COUNT (BEAKER) (test code 99 K/CU MM 150-450 L = 756) MEAN PLATELET VOLUME (BEAKER) 11.2 fL 9.4-12.4 (test code = 754) NUCLEATED RED BLOOD CELLS (BEAKER) 0 /100 WBC 0-0 (test code = 413) NEUTROPHILS RELATIVE PERCENT 39 % (BEAKER) (test code = 429) LYMPHOCYTES RELATIVE PERCENT 44 % (BEAKER) (test code = 430) MONOCYTES RELATIVE PERCENT 11 % (BEAKER) (test code = 431) EOSINOPHILS RELATIVE PERCENT 7 % (BEAKER) (test code = 432) BASOPHILS RELATIVE PERCENT 0 % (BEAKER) (test code = 437) NEUTROPHILS ABSOLUTE COUNT 1.08 K/ L 1.78-5.38 L (BEAKER) (test code = 670) LYMPHOCYTES ABSOLUTE COUNT 1.22 K/ L 1.32-3.57 L (BEAKER) (test code = 414) MONOCYTES ABSOLUTE COUNT (BEAKER) 0.30 K/ L 0.30-0.82 (test code = 415) EOSINOPHILS ABSOLUTE COUNT 0.19 K/ L 0.04-0.54 (BEAKER) (test code = 416) BASOPHILS ABSOLUTE COUNT (BEAKER) 0.01 K/ L 0.01-0.08 (test code = 417) IMMATURE GRANULOCYTES-RELATIVE 0.00 % 0.00-1.00 PERCENT (BEAKER) (test code = 2801) VANCOMYCIN LEVEL, [id number] 08:51:33 Test Item Value Reference Range Interpretation Comments VANCOMYCIN TROUGH (BEAKER) (test 11.3 ug/mL 10.0-20.0 code = 522) Director Apparel ID - [id number] 04:31:45 Test Item Value Reference Range Interpretation Comments MAGNESIUM (BEAKER) (test code = 1.6 mg/dL 1.6-2.6 627) Director Apparel ID - NEIL [id number] 04:31:45 Test Item Value Reference Range Interpretation Comments PHOSPHORUS (BEAKER) (test code = 3.7 mg/dL 2.3-4.7 604) Director Apparel ID - NEIL MHEPATIC FUNCTION [id number] 04:31:45 Test Item Value Reference Range Interpretation Comments TOTAL PROTEIN (BEAKER) (test code = 5.5 gm/dL 6.0-8.3 L 770) ALBUMIN (BEAKER) (test code = 1145) 3.2 g/dL 3.5-5.0 L BILIRUBIN TOTAL (BEAKER) (test code 0.6 mg/dL 0.2-1.2 = 377) BILIRUBIN DIRECT (BEAKER) (test 0.3 mg/dL 0.1-0.5 code = 706) ALKALINE PHOSPHATASE (BEAKER) (test 59 U/L 40-150 code = 346) AST (SGOT) (BEAKER) (test code = 25 U/L 5-34 353) ALT (SGPT) (BEAKER) (test code = 16 U/L 6-55 347) Director Apparel ID Onofre TREJO MBASIC METABOLIC [id number] 04:31:44 Test Item Value Reference Range Interpretation Comments SODIUM (BEAKER) 137 meq/L 136-145 (test code = 381) POTASSIUM 3.8 meq/L 3.5-5.1 (BEAKER) (test code = 379) CHLORIDE (BEAKER) 104 meq/L 98-107 (test code = 382) CO2 (BEAKER) 26 meq/L 22-29 (test code = 355) BLOOD UREA 9 mg/dL 7-21 NITROGEN (BEAKER) (test code = 354) CREATININE 1.13 mg/dL 0.57-1.25 (BEAKER) (test code = 358) GLUCOSE RANDOM 100 mg/dL 70-105 (BEAKER) (test code = 652) CALCIUM (BEAKER) 8.4 mg/dL 8.4-10.2 (test code = 697) EGFR (BEAKER) 82 Interpretatio n of eGFR (test code = mL/min/1.73 values Stage De scription 1092) sq m Result G1 Marlena l or high >=90 G2 Mildly decreased 60-89 G3a Mildl y to moderately 45-5 9 G3b Moderately to s everely 30-44 G4 Severl y decreased 15-29 G5 Kidney failure <15Reported eGF R is based on the CKD-EPI 2020 equation that d oes not use a race coefficientEsti mated GFR is not as accur ate as Creatinine Collette pablo in predicting glom erular filtration rate . Estimated GFR is not appl icable for dialysis patien ts Director Apparel ID - NEIL MCBC W/PLT COUNT & AUTO [id number] 03:52:06 Test Item Value Reference Range Interpretation Comments WHITE BLOOD CELL COUNT (BEAKER) 3.8 K/ L 3.5-10.5 (test code = 775) RED BLOOD CELL COUNT (BEAKER) 3.75 M/ L 4.63-6.08 L (test code = 761) HEMOGLOBIN (BEAKER) (test code = 11.4 GM/DL 13.7-17.5 L 410) HEMATOCRIT (BEAKER) (test code = 34.2 % 40.1-51.0 L 411) MEAN CORPUSCULAR VOLUME (BEAKER) 91 fL 79-92 (test code = 753) MEAN CORPUSCULAR HEMOGLOBIN 30.4 pg 25.7-32.2 (BEAKER) (test code = 751) MEAN CORPUSCULAR HEMOGLOBIN CONC 33.3 GM/DL 32.3-36.5 (BEAKER) (test code = 752) RED CELL DISTRIBUTION WIDTH 13.9 % 11.6-14.4 (BEAKER) (test code = 412) PLATELET COUNT (BEAKER) (test 107 K/CU MM 150-450 L code = 756) MEAN PLATELET VOLUME (BEAKER) 11.8 fL 9.4-12.4 (test code = 754) NUCLEATED RED BLOOD CELLS 0 /100 WBC 0-0 (BEAKER) (test code = 413) NEUTROPHILS RELATIVE PERCENT 63 % (BEAKER) (test code = 429) LYMPHOCYTES RELATIVE PERCENT 22 % (BEAKER) (test code = 430) MONOCYTES RELATIVE PERCENT 13 % (BEAKER) (test code = 431) EOSINOPHILS RELATIVE PERCENT 1 % (BEAKER) (test code = 432) BASOPHILS RELATIVE PERCENT 0 % (BEAKER) (test code = 437) NEUTROPHILS ABSOLUTE COUNT 2.42 K/ L 1.78-5.38 (BEAKER) (test code = 670) LYMPHOCYTES ABSOLUTE COUNT 0.85 K/ L 1.32-3.57 L (BEAKER) (test code = 414) MONOCYTES ABSOLUTE COUNT (BEAKER) 0.50 K/ L 0.30-0.82 (test code = 415) EOSINOPHILS ABSOLUTE COUNT 0.03 K/ L 0.04-0.54 L (BEAKER) (test code = 416) BASOPHILS ABSOLUTE COUNT (BEAKER) 0.01 K/ L 0.01-0.08 (test code = 417) IMMATURE GRANULOCYTES-RELATIVE 0.50 % 0.00-1.00 PERCENT (BEAKER) (test code = 2801) U/S, ABDOMINAL, [id number] 21:12:00Abdomen limited area? Add comment if clarification is needed.->GallbladderReason for exam:->fever, abdominal pain, increased T. bili with c/f cholangitis. US to r/o CBD dilatation 2/2 choledocholithiasisShould this be performed at the bedside?->[facility] 1975 Sex: MFINAL REPORT RIGHT UPPER QUADRANT ULTRASOUND History: Fever and abdominal pain. Increased bilirubin and concern for cholangitis Findings: The liver has a homogeneous echotexture with no evidence of intrahepatic biliary ductal dilation. The common duct is normal in size. Normal appearance of the gallbladder with no gallstones or gallbladder wall thickening. No evidence of acute abnormality in the RIGHT kidney. No hydronephrosis. The pancreas is poorly visualized due to overlying bowel gas. IMPRESSION: No evidence of acute abnormality. Signed: Cyn Calle MDReport Verified Date/Time: 09/09/2022 21:12:42 RAD, ABDOMEN/KUB, 1 VIEW [id number] 15:34:00Reason for exam:->f/u abdominal pain/colonic distension [facility] 1975 Sex: MFINAL REPORT RAD, ABDOMEN/KUB, 1 VIEW AP CLINICAL INDICATION: f/u abdominal pain/colonic distension COMPARISON: CT, 09/07/2022 TECHNIQUE: Frontal radiograph(s) of the abdomen. FINDINGS: The bowel gas pattern demonstrates dilated bowel loops, favored to be colonic in nature. Evaluation for free air is limited by portable supine technique. Within these limitations, no free air is identified. IMPRESSION: Diffusely dilated colonic bowel loops, representing ileus or large bowel obstruction. Signed: Nate Becerra MDReport Verified Date/Time: 09/09/2022 15:34:07 Reading Location: [address] Reading Room Respiratory Panel [id number] 15:22:28 Test Item Value Reference Interpretation Comments Range Human Metapneumovirus Not detected Not detected, (test code = 95432-1) Equivocal Rhinovirus (test code Not detected Not detected, = 80912-2) Equivocal INFLUENZA A (NO SUBTYPE) (test code = 18633-3) Influenza A subtype H1 (test code = 37989-9) Influenza A Subtype H3 (test code = 04865-5) Influenza A Subtype Detected Not detected, A Droplet H1-2008 (test code = [place]. 73766-0) Oseltamivir is the drug of choice. Conside r stopping antibiotics. Influenza B (test Not detected Not detected, code = 36518-2) Equivocal Respiratory Syncytial Not detected Not detected, Virus (test code = Equivocal 16296-9) Parainfluenza Virus 1 Not detected Not detected, (test code = 78049-7) Equivocal Parainfluenza Virus 2 Not detected Not detected, (test code = 36886-8) Equivocal Parainfluenza virus 3 Not detected Not detected, (test code = 83718-7) Equivocal Parainfluenza Virus 4 Not detected Not detected, (test code = 47227-6) Equivocal Adenovirus (test code Not detected Not detected, = 66628-7) Equivocal Coronavirus 229E Not detected Not detected, (test code = 30382-4) Equivocal Coronavirus HKU1 Not detected Not detected, (test code = 92750-8) Equivocal Coronavirus NL63 Not detected Not detected, (test code = 21697-6) Equivocal Coronavirus OC43 Not detected Not detected, (test code = 31379-0) Equivocal Bordetella Pertussis Not detected Not detected, (test code = 39611-5) Equivocal Chlamydophila Not detected Not detected, Pneumoniae (test code Equivocal = 24198-3) Mycoplasma Pneumoniae Not detected Not detected, (test code = 24584-6) Equivocal Severe Acute Not detected Not detected, Upqqxkitdau-OlB-1 Equivocal (test code = 90983-7) Bordtella Not detected Not detected, Parapertussis (test Equivocal code = 65274-0) SHANA (test code = SHANA) Other viruses and bacteria not targeted by this PCR panel cannot be excluded; therefore clinical correlation and follow up of serology, culture results, and other molecular studies is required. The results are not intended to be used as the sole means for clinical diagnosis or patient management decisions. This sample was tested at the [facility] Molecular Diagnostics Laboratory using the SagebinArray Respiratory Panel. It is FDA cleared and has been verified and approved by the [facility] Molecular Diagnostics Laboratory for clinical use on nasopharyngeal swab specimens. The performance of the FilmArray RP has not been established in individuals who received influenza vaccine. Recent administration of a nasal influenza vaccine may cause false positive results for Influenza A and/orInfluenza B. Lab Interpretation Abnormal (test code = 45022-9) [facility] [id number] 15:22:28 Test Item Value Reference Range Interpretation Comments HUMAN METAPNEUMOVIRUS Not detected Not detected, (BEAKER) (test code = Equivocal 2683) RHINOVIRUS (BEAKER) Not detected Not detected, (test code = 2684) Equivocal INFLUENZA A (BEAKER) (test code = 2685) INFLUENZA A (NO SUBTYPE) (test code = 3606) INFLUENZA A SUBTYPE H1 (BEAKER) (test code = 2686) INFLUENZA A SUBTYPE H3 (BEAKER) (test code = 2687) INFLUENZA A SUBTYPE Detected Not detected, A Droplet isolation. H1-2009 (BEAKER) (test Equivocal Oselt amivir is the code = 3198) drug of choice. Consider stoppi ng antibiotics. INFLUENZA B (BEAKER) Not detected Not detected, (test code = 2688) Equivocal RESPIRATORY SYNCYTIAL Not detected Not detected, VIRUS (BEAKER) (test Equivocal code = 3199) PARAINFLUENZA VIRUS 1 Not detected Not detected, (BEAKER) (test code = Equivocal 2691) PARAINFLUENZA VIRUS 2 Not detected Not detected, (BEAKER) (test code = Equivocal 2692) PARAINFLUENZA VIRUS 3 Not detected Not detected, (BEAKER) (test code = Equivocal 2693) PARAINFLUENZA VIRUS 4 Not detected Not detected, (BEAKER) (test code = Equivocal 3200) ADENOVIRUS (BEAKER) Not detected Not detected, (test code = 2694) Equivocal CORONAVIRUS 229E Not detected Not detected, (BEAKER) (test code = Equivocal 3201) CORONAVIRUS HKU1 Not detected Not detected, (BEAKER) (test code = Equivocal 3202) CORONAVIRUS NL63 Not detected Not detected, (BEAKER) (test code = Equivocal 3203) CORONAVIRUS OC43 Not detected Not detected, (BEAKER) (test code = Equivocal 3204) BORDETELLA PERTUSSIS Not detected Not detected, (BEAKER) (test code = Equivocal 3205) CHLAMYDOPHILA Not detected Not detected, PNEUMONIAE (BEAKER) Equivocal (test code = 3206) MYCOPLASMA PNEUMONIAE Not detected Not detected, (BEAKER) (test code = Equivocal 3207) SEVERE ACUTE Not detected Not detected, RESPIRATORY Equivocal [id number] (test code = 4131212) BORDETELLA Not detected Not detected, PARAPERTUSSIS (BKR) Equivocal (test code = 0435392) Other viruses and bacteria not targeted by this PCR panel cannot be excluded; therefore clinical correlation and follow up of serology, culture results, and other molecular studies is required. The results are not intended to be used as the sole means for clinical diagnosis or patient management decisions. This sample was tested at the [facility] using the [employer] Respiratory Panel. It is FDA cleared and has been verified and approved by the [facility] for clinical use on nasopharyngeal swab specimens.The performance of the FilmArrayRP has not been established in individuals who received influenza vaccine. Recent administration of a nasal influenza vaccine may cause false positive results for Influenza A and/orInfluenza B.BILIRUBIN, [id number] 14:19:13 Test Item Value Reference Range Interpretation Comments BILIRUBIN DIRECT (BEAKER) (test 0.5 mg/dL 0.1-0.5 code = 706) Director Apparel ID - LIBBY BHEPATIC FUNCTION [id number] 11:30:00 Test Item Value Reference Range Interpretation Comments TOTAL PROTEIN (BEAKER) (test code = 5.4 gm/dL 6.0-8.3 L 770) ALBUMIN (BEAKER) (test code = 1145) 3.2 g/dL 3.5-5.0 L BILIRUBIN TOTAL (BEAKER) (test code 1.3 mg/dL 0.2-1.2 H = 377) BILIRUBIN DIRECT (BEAKER) (test 0.5 mg/dL 0.1-0.5 code = 706) ALKALINE PHOSPHATASE (BEAKER) (test 65 U/L 40-150 code = 346) AST (SGOT) (BEAKER) (test code = 21 U/L 5-34 353) ALT (SGPT) (BEAKER) (test code = 15 U/L 6-55 347) Director Apparel ID - LIBBY BBASIC METABOLIC [id number] 11:29:59 Test Item Value Reference Range Interpretation Comments SODIUM (BEAKER) 134 meq/L 136-145 L (test code = 381) POTASSIUM 3.7 meq/L 3.5-5.1 (BEAKER) (test code = 379) CHLORIDE (BEAKER) 104 meq/L 98-107 (test code = 382) CO2 (BEAKER) 23 meq/L 22-29 (test code = 355) BLOOD UREA 10 mg/dL 7-21 NITROGEN (BEAKER) (test code = 354) CREATININE 1.31 mg/dL 0.57-1.25 H (BEAKER) (test code = 358) GLUCOSE RANDOM 89 mg/dL 70-105 (BEAKER) (test code = 652) CALCIUM (BEAKER) 8.3 mg/dL 8.4-10.2 L (test code = 697) EGFR (BEAKER) 69 Interpretatio n of eGFR (test code = mL/min/1.73 values Stage De scription 1092) sq m Result G1 Marlena l or high >=90 G2 Mildly decreased 60-89 G3a Mildl y to moderately 45-5 9 G3b Moderately to s everely 30-44 G4 Severl y decreased 15-29 G5 Kidney failure <15Reported eGF R is based on the CKD-EPI 2020 equation that d oes not use a race coefficientEsti mated GFR is not as accur ate as Creatinine Collette pablo in predicting glom erular filtration rate . Estimated GFR is not appl icable for dialysis patien ts Director Apparel ID - LIBBY [id number] 11:29:59 Test Item Value Reference Range Interpretation Comments MAGNESIUM (BEAKER) (test code = 1.6 mg/dL 1.6-2.6 627) Director Apparel ID - LIBBY [id number] 11:29:59 Test Item Value Reference Range Interpretation Comments PHOSPHORUS (BEAKER) (test code = 3.2 mg/dL 2.3-4.7 604) Director Apparel ID - LIBBY BCBC W/PLT COUNT & AUTO [id number] 10:23:43 Test Item Value Reference Range Interpretation Comments WHITE BLOOD CELL COUNT (BEAKER) 3.0 K/ L 3.5-10.5 L (test code = 775) RED BLOOD CELL COUNT (BEAKER) 3.60 M/ L 4.63-6.08 L (test code = 761) HEMOGLOBIN (BEAKER) (test code = 11.0 GM/DL 13.7-17.5 L 410) HEMATOCRIT (BEAKER) (test code = 32.5 % 40.1-51.0 L 411) MEAN CORPUSCULAR VOLUME (BEAKER) 90 fL 79-92 (test code = 753) MEAN CORPUSCULAR HEMOGLOBIN 30.6 pg 25.7-32.2 (BEAKER) (test code = 751) MEAN CORPUSCULAR HEMOGLOBIN CONC 33.8 GM/DL 32.3-36.5 (BEAKER) (test code = 752) RED CELL DISTRIBUTION WIDTH 13.7 % 11.6-14.4 (BEAKER) (test code = 412) PLATELET COUNT (BEAKER) (test 110 K/CU MM 150-450 L code = 756) MEAN PLATELET VOLUME (BEAKER) 11.6 fL 9.4-12.4 (test code = 754) NUCLEATED RED BLOOD CELLS 1 /100 WBC 0-0 H (BEAKER) (test code = 413) NEUTROPHILS RELATIVE PERCENT 63 % (BEAKER) (test code = 429) LYMPHOCYTES RELATIVE PERCENT 16 % (BEAKER) (test code = 430) MONOCYTES RELATIVE PERCENT 19 % (BEAKER) (test code = 431) EOSINOPHILS RELATIVE PERCENT 2 % (BEAKER) (test code = 432) BASOPHILS RELATIVE PERCENT 1 % (BEAKER) (test code = 437) NEUTROPHILS ABSOLUTE COUNT 1.87 K/ L 1.78-5.38 (BEAKER) (test code = 670) LYMPHOCYTES ABSOLUTE COUNT 0.47 K/ L 1.32-3.57 L (BEAKER) (test code = 414) MONOCYTES ABSOLUTE COUNT (BEAKER) 0.55 K/ L 0.30-0.82 (test code = 415) EOSINOPHILS ABSOLUTE COUNT 0.06 K/ L 0.04-0.54 (BEAKER) (test code = 416) BASOPHILS ABSOLUTE COUNT (BEAKER) 0.02 K/ L 0.01-0.08 (test code = 417) IMMATURE GRANULOCYTES-RELATIVE 0.30 % 0.00-1.00 PERCENT (BEAKER) (test code = 2801) Urine [id number] 09:37:23 Test Item Value Reference Range Interpretation Comments Result (test code = <10,000 col/mL skin 6463-4) [facility]men [facility], 1 VIEW, NON [id number] 03:15:00Reason for exam:->feverShould this be performed at the bedside?->Yes [facility] : 1975 Sex: MFINAL REPORT PORTABLE AP CHEST ORDERED AT 09/08/2022 6:54 PM HISTORY: Fever. COMPARISON: Chest radiograph 11/13/2021 IMPRESSION: Heart size is normal. There is no consolidation, effusion or pneumothorax. No evidence of acute osseous abnormality. No evidence of pulmonary edema. Signed: Cyn Calle MDReport Verified Date/Time: 09/09/2022 03:15:00 Strep pneumoniae [id number] 20:38:59 Test Item Value Reference Range Interpretation Comments Strep pneumoniae Presumptive negative Presumptive Antigen (test code = [place] [address]-1) pneumonia - see pneumococcal comment pneumonia - see comment, Presumptive negative for pneumococcal meningitis - see comment SHANA (test code = SHANA) Presumptive negative for pneumococcal pneumonia, suggesting no current or recent pneumococcal infection. Infection due to S. pneumoniae cannot be ruled out since the antigen present in the sample may be below the detection limit of the test. Lab Interpretation Normal (test code = 33467-4) [facility] [id number] 20:38:59 Test Item Value Reference Range Interpretation Comments STREP PNEUMONIAE Presumptive negative Presumptive negative ANTIGEN (BEAKER) for pneumococcal for pneumococcal (test code = 1615) pneumonia - see pneumonia - see comment commen Presumptive negative for pneumococcal pneumonia, suggesting no current or recent pneumococcal infection. Infection due to S. pneumoniae cannot be ruled out since the antigen present in the sample may be below the detection limit of the test. LACTIC ACID, [id number] 19:00:48 Test Item Value Reference Range Interpretation Comments LACTATE BLOOD VENOUS (2) (BEAKER) 0.95 mmol/L 0.50-2.20 (test code = 2872) Director Apparel ID - [id number] 19:00:27 Test Item Value Reference Range Interpretation Comments PROCALCITONIN (BEAKER) (test code = < ng/mL <0.05 3036) SEPSIS RISK (ng/mL)Low: 0.05-0.50Intermediate: 0.51-2.00High: >=2.01LACTIC ACID, [id number] 18:47:20 Test Item Value Reference Range Interpretation Comments LACTATE BLOOD VENOUS (2) (BEAKER) 0.97 mmol/L 0.50-2.20 (test code = 2872) Director Apparel ID - EDCOMPREHENSIVE METABOLIC [id number] 05:42:03 Test Item Value Reference Range Interpretation Comments TOTAL PROTEIN 5.4 gm/dL 6.0-8.3 L (BEAKER) (test code = 770) ALBUMIN (BEAKER) 3.2 g/dL 3.5-5.0 L (test code = 1145) ALKALINE 69 U/L 40-150 PHOSPHATASE (BEAKER) (test code = 346) BILIRUBIN TOTAL 1.3 mg/dL 0.2-1.2 H (BEAKER) (test code = 377) SODIUM (BEAKER) 139 meq/L 136-145 (test code = 381) POTASSIUM (BEAKER) 3.4 meq/L 3.5-5.1 L (test code = 379) CHLORIDE (BEAKER) 110 meq/L 98-107 H (test code = 382) CO2 (BEAKER) (test 24 meq/L 22-29 code = 355) BLOOD UREA 10 mg/dL 7-21 NITROGEN (BEAKER) (test code = 354) CREATININE 0.89 mg/dL 0.57-1.25 (BEAKER) (test code = 358) GLUCOSE RANDOM 78 mg/dL 70-105 (BEAKER) (test code = 652) CALCIUM (BEAKER) 8.6 mg/dL 8.4-10.2 (test code = 697) AST (SGOT) 21 U/L 5-34 (BEAKER) (test code = 353) ALT (SGPT) 16 U/L 6-55 (BEAKER) (test code = 347) EGFR (BEAKER) 108 Interpretatio n of eGFR (test code = 1092) mL/min/1.[address] age Description sq m Result G1 Marlena l or high >=90 G2 Mildly decreased 60-89 G3a Mildl y to moderately 45-5 9 G3b Moderately to s everely 30-44 G4 Severl y decreased 15-29 G5 Kidney failure <15Reported eGF R is based on the CKD-EPI 202 equation that d oes not use a race coefficientEsti mated GFR is not as accur ate as Creatinine Collette pablo in predicting glom erular filtration rate . Estimated GFR is not appl icable for dialysis patien ts Director Apparel HODA - NEIL [id number] 05:42:03 Test Item Value Reference Range Interpretation Comments MAGNESIUM (BEAKER) (test code = 1.5 mg/dL 1.6-2.6 L 627) Director Apparel ID - NEIL MCBC (HEMOGRAM ONLY)2022-09-08 05:11:49 Test Item Value Reference Range Interpretation Comments WHITE BLOOD CELL COUNT (BEAKER) 4.5 K/ L 3.5-10.5 (test code = 775) RED BLOOD CELL COUNT (BEAKER) 3.59 M/ L 4.63-6.08 L (test code = 761) HEMOGLOBIN (BEAKER) (test code = 11.0 GM/DL 13.7-17.5 L 410) HEMATOCRIT (BEAKER) (test code = 32.4 % 40.1-51.0 L 411) MEAN CORPUSCULAR VOLUME (BEAKER) 90 fL 79-92 (test code = 753) MEAN CORPUSCULAR HEMOGLOBIN 30.6 pg 25.7-32.2 (BEAKER) (test code = 751) MEAN CORPUSCULAR HEMOGLOBIN CONC 34.0 GM/DL 32.3-36.5 (BEAKER) (test code = 752) RED CELL DISTRIBUTION WIDTH 13.5 % 11.6-14.4 (BEAKER) (test code = 412) PLATELET COUNT (BEAKER) (test 155 K/CU MM 150-450 code = 756) MEAN PLATELET VOLUME (BEAKER) 11.9 fL 9.4-12.4 (test code = 754) NUCLEATED RED BLOOD CELLS 0 /100 WBC 0-0 (BEAKER) (test code = 413) SARS-CoV2/RT-PCR (Asymptomatic ONLY)2022-09-07 07:59:01 Test Item Value Reference Interpretation Comments Range SARS-COV2/RT-PCR Negative Negative The SARS-Co V-2 (test code = target nucleic 00621-8) acids are not detected in [facility] specimen. Negat nacho results do not preclude SARS-C oV-2 infection and should not be u sed as the sole bas is for patient management decisions. Nega tive results must be combined with clinical observations, patient history , and epidemiolog ical information. A false negative result may occu r if a specimen is improperly collected, transported or handled. This ARS CoV-2 test is a rapid, real-emery e RT-PCR test intended for e qualitative detection of nucleic acid fr om SARS-CoV-2 in a nasopharyngeal swab specimen colle joann from individual s suspected of COVID-19 by the ir healthcare provider. SHANA (test code = This test has been SHANA) authorized by FDA under an EUA for use by authorized laboratories. This test is only authorized for the duration of the declaration that circumstances exist justifying the authorization of emergency use of in vitro diagnostic tests for detection and/or diagnosis of COVID-19 under Section 564(b)(1) of the Federal Food, Drug and Cosmetic Act, 21 U.S.C. 360bbb-3(b)(1), unless the authorization is terminated or revoked sooner. Fact Sheet for Healthcare Providers: https://www.[employer]/Documents/Xp ert%20Xpress%20SAR S%20CoV-2/Fact%20S heets/302-3802%20S ARS-COV-2%20HEALTH CARE%20PROVIDERS%2 0FACT%20SHEET.pdf Fact Sheet for Healthcare Patients: https://wwwVeteran Live [employer]fts/Documents/Xp ert%20Xpress%20SAR S%20CoV-2/Fact%20S heets/302-3801%20S ARS-COV-2%20PATIEN T%20FACT%20SHEET.p df Lab Interpretation Normal (test code = 38505-4) [facility]2022-09-07 07:59:01 Test Item Value Reference Interpretation Comments Range SARS-COV2/RT-PCR Negative Negative The SARS-Co V-2 (test code = target nucleic 61716-7) acids are not detected in thi s specimen. Negat nacho results do not preclude SARS-C oV-2 infection and should not be u sed as the sole bas is for patient management decisions. Nega tive results must be combined with clinical observations, patient history , and epidemiolog ical information. A false negative result may occu r if a specimen is improperly collected, transported or handled. This S ARS CoV-2 test is a rapid, real-emery e RT-PCR test intended for th e qualitative detection of nucleic acid fr om SARS-CoV-2 in a nasopharyngeal swab specimen collec joann from individual s suspected of COVID-19 by the ir healthcare provider. SHANA (test code = This test has been SHANA) authorized by FDA under an EUA for use by authorized laboratories. This test is only authorized for the duration of the declaration that circumstances exist justifying the authorization of emergency use of in vitro diagnostic tests for detection and/or diagnosis of COVID-19 under Section 564(b)(1) of the Federal Food, Drug and Cosmetic Act, 21 U.S.C. 360bbb-3(b)(1), unless the authorization is terminated or revoked sooner. Fact Sheet for Healthcare Providers: https://www.[employer]/Documents/Xp ert%20Xpress%20SAR S%20CoV-2/Fact%20S heets/302-3802%20S ARS-COV-2%20HEALTH CARE%20PROVIDERS%2 0FACT%20SHEET.pdf Fact Sheet for Healthcare Patients: https://www.[employer]/Documents/Xp ert%20Xpress%20SAR S%20CoV-2/Fact%20S heets/302-3801%20S ARS-COV-2%20PATIEN T%20FACT%20SHEET.p df Lab Interpretation Normal (test code = 87579-5) [facility])2022-09-07 07:59:01 Test Item Value Reference Range Interpretation Comments SARS-COV2/RT-PCR Negative Negative The SARS-Co V-2 target (test code = nucleic acids a re not 4724973) detected in thi s specimen. Negative result s do not preclude SARS-C oV-2 infection and s hould not be used as the júnior e basis for patient managem ent decisions. Nega tive results must be combine d with clinical observ ations, patient history , and epidemiological information. A false negativ e result may occur if a spec imen is improperly chuy ected, transported or handled. This SARS CoV-2 test is a rapid, real-time RT-PC R test intended for th e qualitative detection of nu cleic acid from SARS-CoV-2 in a nasopharyngeal swab specimen collected from individuals suspected of CO VID-19 by their healthcar e provider. This test has been authorized by FDA under an EUA for use by authorized laboratories. This test is only authorized for the duration of the declaration that circumstances exist justifying the authorization of emergency use of in vitro diagnostic tests for detection and/or diagnosis of COVID-19 under Section 564(b)(1) of the Federal Food, Drug and Cosmetic Act, 21 U.S.C. 360bbb-3(b)(1), unless the authorization is terminated or revoked sooner. Fact Sheet for Healthcare Providers: https://www.[employer]/Documents/Xpert%20Xpress%20SARS%20CoV-2/Fact%20Sheets/302-3802%12AQQB-JGB-1%20 HEALTHCARE%20PROVIDERS%20FACT%20SHEET.pdf Fact Sheet for Healthcare Patients: https://www.[employer]/Documents/Xpert%20Xp ress%20SARS%20CoV-2/Fact%20Sheets/302-3801%85JAFC-EQE-4%20PATIENT%20FACT%20SHEET .pdfCT, [id number] 04:48:00Unlisted Reason for Exam - Click Yes and Enter Reason Below->NoIs this for enterography?->NoWill this procedure require oral contrast?->No [facility] : 1975 Sex: MFINAL REPORT EXAM/TECHNIQUE: CT of the abdomen and pelvis with IV contrast. Dosemodulation, iterative reconstruction, and/or weight based adjustment of the mA/kV was utilized to reduce the radiation dose to as low as reasonably achievable. INDICATION: Distention, obstruction suspected. Cystic fibrosis. COMPARISON: CT abdomen pelvis from 06/27/2022. FINDINGS: Lower thorax: No focalconsolidation or suspicious pulmonary nodule. The visualized heart is unremarkable. Liver: The main portal vein is patent, prominent. No focal mass. Biliary: The gallbladder and intrahepatic and extrahepatic biliary systems are unremarkable. Spleen: Unremarkable. Pancreas: Unremarkable. Adrenals: Unrem arkable. Kidneys: Symmetric bilateral nephrograms. No hydronephrosis. Left renal lower pole 4 mm nonobstructing calculus. Bowel: Findings of surgical resection of the colon are present. The colon is diffusely distended without small bowel dilatation. Appendix is not visualized. Lymph nodes: No lymphadenopathy by size criteria. Mesentery: No ascites. No pneumoperitoneum. Pelvis: Unremarkable appearance of the pelvic organs. The bladder is unremarkable in appearance. Vessels: Unremarkable. Osseous: Noacute osseous process. No suspicious osseous lesions. Impression: Nonspecific colonic distention without findings of small bowel obstruction. Signed: Rui Burger [facility] Verified Date/Time: 04:48:11 TIC FUNCTION [id number] 04:11:49 Test Item Value Reference Range Interpretation Comments TOTAL PROTEIN (BEAKER) (test code = 7.6 gm/dL 6.0-8.3 770) ALBUMIN (BEAKER) (test code = 1145) 4.5 g/dL 3.5-5.0 BILIRUBIN TOTAL (BEAKER) (test code 1.3 mg/dL 0.2-1.2 H = 377) BILIRUBIN DIRECT (BEAKER) (test 0.5 mg/dL 0.1-0.5 code = 706) ALKALINE PHOSPHATASE (BEAKER) (test 99 U/L 40-150 code = 346) AST (SGOT) (BEAKER) (test code = 23 U/L 5-34 353) ALT (SGPT) (BEAKER) (test code = 25 U/L 6-55 347) Director Apparel ID - CHAMP WOperator ID Onofre OAKES [id number] 03:24:36 Test Item Value Reference Range Interpretation Comments LIPASE (BEAKER) (test code = 749) < U/L 8-78 L Director Apparel ID - CHAMP WBASIC METABOLIC [id number] 02:56:41 Test Item Value Reference Range Interpretation Comments SODIUM (BEAKER) 139 meq/L 136-145 (test code = 381) POTASSIUM 3.6 meq/L 3.5-5.1 (BEAKER) (test code = 379) CHLORIDE (BEAKER) 107 meq/L 98-107 (test code = 382) CO2 (BEAKER) 23 meq/L 22-29 (test code = 355) BLOOD UREA 16 mg/dL 7-21 NITROGEN (BEAKER) (test code = 354) CREATININE 1.18 mg/dL 0.57-1.25 (BEAKER) (test code = 358) GLUCOSE RANDOM 111 mg/dL 70-105 H (BEAKER) (test code = 652) CALCIUM (BEAKER) 9.6 mg/dL 8.4-10.2 (test code = 697) EGFR (BEAKER) 78 Interpretatio n of eGFR (test code = mL/min/1.73 values Stage De scription 1092) sq m Result G1 Marlena l or high >=90 G2 Mildly decreased 60-89 G3a Mildl y to moderately 45-5 9 G3b Moderately to s everely 30-44 G4 Severl y decreased 15-29 G5 Kidney failure <15Reported eGF R is based on the CKD-EPI 2020 equation that d oes not use a race coefficientEsti mated GFR is not as accur ate as Creatinine Collette pablo in predicting glom erular filtration rate . Estimated GFR is not appl icable for dialysis patien ts Director Apparel HODA OAKES WLACTIC ACID, [id number] 02:52:40 Test Item Value Reference Range Interpretation Comments LACTATE BLOOD VENOUS 1.11 mmol/L 0.50-2.20 Specime n slightly (2) (BEAKER) (test hemolyzed code = 7424) Director Apparel ID Onofre OAKES WCBC W/PLT COUNT & AUTO [id number] 02:31:37 Test Item Value Reference Range Interpretation Comments WHITE BLOOD CELL COUNT (BEAKER) 6.6 K/ L 3.5-10.5 (test code = 775) RED BLOOD CELL COUNT (BEAKER) 4.38 M/ L 4.63-6.08 L (test code = 761) HEMOGLOBIN (BEAKER) (test code = 13.5 GM/DL 13.7-17.5 L 410) HEMATOCRIT (BEAKER) (test code = 40.2 % 40.1-51.0 411) MEAN CORPUSCULAR VOLUME (BEAKER) 92 fL 79-92 (test code = 753) MEAN CORPUSCULAR HEMOGLOBIN 30.8 pg 25.7-32.2 (BEAKER) (test code = 751) MEAN CORPUSCULAR HEMOGLOBIN CONC 33.6 GM/DL 32.3-36.5 (BEAKER) (test code = 752) RED CELL DISTRIBUTION WIDTH 13.5 % 11.6-14.4 (BEAKER) (test code = 412) PLATELET COUNT (BEAKER) (test 197 K/CU MM 150-450 code = 756) MEAN PLATELET VOLUME (BEAKER) 10.9 fL 9.4-12.4 (test code = 754) NUCLEATED RED BLOOD CELLS 0 /100 WBC 0-0 (BEAKER) (test code = 413) NEUTROPHILS RELATIVE PERCENT 48 % (BEAKER) (test code = 429) LYMPHOCYTES RELATIVE PERCENT 39 % (BEAKER) (test code = 430) MONOCYTES RELATIVE PERCENT 9 % (BEAKER) (test code = 431) EOSINOPHILS RELATIVE PERCENT 4 % (BEAKER) (test code = 432) BASOPHILS RELATIVE PERCENT 1 % (BEAKER) (test code = 437) NEUTROPHILS ABSOLUTE COUNT 3.15 K/ L 1.78-5.38 (BEAKER) (test code = 670) LYMPHOCYTES ABSOLUTE COUNT 2.57 K/ L 1.32-3.57 (BEAKER) (test code = 414) MONOCYTES ABSOLUTE COUNT (BEAKER) 0.61 K/ L 0.30-0.82 (test code = 415) EOSINOPHILS ABSOLUTE COUNT 0.23 K/ L 0.04-0.54 (BEAKER) (test code = 416) BASOPHILS ABSOLUTE COUNT (BEAKER) 0.03 K/ L 0.01-0.08 (test code = 417) IMMATURE GRANULOCYTES-RELATIVE 0.20 % 0.00-1.00 PERCENT (BEAKER) (test code = 2801) Urinalysis w/Microscopic + Reflex to [id number] 02:18:03 Test Item Value Reference Range Interpretation Comments Color, UA (test code Yellow = 5778-6) Clarity, UA (test Hazy code = 5767-9) Specific [place], UA 1.028 1.001-1.035 (test code = 5811-5) pH, UA (test code = 6.0 5.0-8.0 5803-2) Protein, UA (test 20 mg/dL Negative A code = 60099-5) Glucose, UA (test 150 mg/dL Negative A code = 365) Ketones, UA (test Negative Negative code = 2514-8) Bilirubin, UA (test Negative Negative code = 26112-3) Blood, UA (test code Negative Negative = 70527-9) Nitrite, UA (test Negative Negative code = 5802-4) Leukocytes, UA (test Small Negative A code = 5799-2) Urobilinogen, UA 0.2 0.2-1.0 (test code = 42262-0) RBC, UA (test code = 15 See_Comment [Autom ated 33978-8) message] The system which generated this result transmitted reference range : /HPF. The reference range was not used to interpret this result as normal/abnormal . WBC, UA (test code = 13 See_Comment [Autom ated 5821-4) message] The system which generated this result transmitted reference range : /HPF. The reference range was not used to interpret this result as normal/abnormal . Mucus (test code = Rare 8247-9) Squam Epithel, UA <1 See_Comment [Automate d (test code = 81950-9) messag e] The system which generated this result transmitted reference range : /HPF. The reference range was not used to interpret this result as normal/abnormal . Casts (test code = 2 See_Comment [Automat ed 9842-6) message] The system which generated this result transmitted reference range : /LPF. The reference range was not used to interpret this result as normal/abnormal . Crystals, Urine (test Occasional None Seen A code = 68091-2) Specimen Source (test code = 2795) SHANA (test code = SHANA) Director Apparel ID - [auto]Director Apparel ID - tech Lab Interpretation Abnormal (test code = 02716-4) [facility]inal[facility]/Microscopic + Reflex to Culture 2022-09-07 02:18:03 Test Item Value Reference Range Interpretation Comments Color, UA (test code Yellow = 5778-6) Clarity, UA (test Hazy code = 5767-9) Specific [place], UA 1.028 1.001-1.035 (test code = 5811-5) pH, UA (test code = 6.0 5.0-8.0 5803-2) Protein, UA (test 20 mg/dL Negative A code = 92861-0) Glucose, UA (test 150 mg/dL Negative A code = 365) Ketones, UA (test Negative Negative code = 2514-8) Bilirubin, UA (test Negative Negative code = 62469-7) Blood, UA (test code Negative Negative = 72385-8) Nitrite, UA (test Negative Negative code = 5802-4) Leukocytes, UA (test Small Negative A code = 5799-2) Urobilinogen, UA 0.2 0.2-1.0 (test code = 82782-5) RBC, UA (test code = 15 See_Comment [Autom ated 50494-8) message] The system which generated this result transmitted reference range : /HPF. The reference range was not used to interpret this result as normal/abnormal . WBC, UA (test code = 13 See_Comment [Autom ated 5821-4) message] The system which generated this result transmitted reference range : /HPF. The reference range was not used to interpret this result as normal/abnormal . Mucus (test code = Rare 8247-9) Squam Epithel, UA <1 See_Comment [Automate d (test code = 99136-7) messag e] The system which generated this result transmitted reference range : /HPF. The reference range was not used to interpret this result as normal/abnormal . Casts (test code = 2 See_Comment [Automat ed 9842-6) message] The system which generated this result transmitted reference range : /LPF. The reference range was not used to interpret this result as normal/abnormal . Crystals, Urine (test Occasional None Seen A code = 17194-7) Specimen Source (test code = 2795) SHANA (test code = SHANA) Director Apparel ID - [auto]Director Apparel ID - tech Lab Interpretation Abnormal (test code = 46250-2) [facility]/ REFLEX URINE [id number] 02:18:03 Test Item Value Reference Range Interpretation Comments COLOR (BEAKER) (test code = 470) Yellow CLARITY (BEAKER) (test code = 469) Hazy SPECIFIC GRAVITY UA (BEAKER) (test 1.028 1.001-1.035 code = 468) PH UA (BEAKER) (test code = 467) 6.0 5.0-8.0 PROTEIN UA (BEAKER) (test code = 20 mg/dL Negative A 464) GLUCOSE UA (BEAKER) (test code = 150 mg/dL Negative A 365) KETONES UA (BEAKER) (test code = Negative Negative 371) BILIRUBIN UA (BEAKER) (test code = Negative Negative 462) BLOOD UA (BEAKER) (test code = Negative Negative 461) NITRITE UA (BEAKER) (test code = Negative Negative 465) LEUKOCYTE ESTERASE UA (BEAKER) Small Negative A (test code = 466) UROBILINOGEN UA (BEAKER) (test 0.2 0.2-1.0 code = 463) RBC UA (BEAKER) (test code = 519) 15 /HPF WBC UA (BEAKER) (test code = 520) 13 /HPF MUCUS (BEAKER) (test code = 1574) Rare SQUAMOUS EPITHELIAL (BEAKER) (test < /HPF code = 516) CASTS (BEAKER) (test code = 1579) 2 /LPF CRYSTALS, URINE (BEAKER) (test Occasional None Seen A code = 1521) SOURCE(BEAKER) (test code = 2795) Director Apparel ID - [auto]Director Apparel ID - techCF RESPIRATORY [id number] 13:04:52 Test Item Value Reference Range Interpretation Comments CULTURE (BEAKER) (test KLEBSIELLA A <1+ K lebsiella code = 1095) PNEUMONIAE pneumoniae Amikacin (test code = S 1) Ampicillin + Sulbactam S (test code = 6) Aztreonam (test code = S 32) Cefepime (test code = S 51) Cefoxitin (test code = S 68) Ceftazidime (test code S = 27) Ceftriaxone (test code S = 52) Ertapenem (test code = S 38) Gentamicin (test code = S 18) Levofloxacin (test code S = 22) Meropenem (test code = S 34) Piperacillin + S Tazobactam (test code = 29) Tetracycline (test code S = 2) Tobramycin (test code = S 25) Trimethoprim + S Sulfamethoxazole (test code = 47) 3+ Normal respiratory maria del carmen presentCT, [id number] 05:31:00Reason for exam:->ABDOMINAL PAINReason for exam:->NAUSEAReason for exam:- >BLOATEDWhat is the patient's sedation requirement?->No Sedation [facility] : 1975 Sex: MFINAL REPORT CT, ABDOMEN \\T\\ PELVIS, WITH IV CONTRAST CLINICAL STATEMENT: Abdominal pain. Dose modulation, iterative reconstruction, and/or weight-based adjustment of the mA/kV was utilized to reduce the radiation dose to as low as reasonably achievable. FINDINGS: Visualized lung bases are within normal limits. Liver, spleen, pancreas, gallbladder, adrenal glands and kidneys are within normal limits. No hydronephrosis or biliary dilatation. No dilated loops of bowel to suggest obstruction. Large amount of stool in the colon. Moderately diffusely dilated colonic loops. No free fluid or free air. Bladder is unremarkable. No abdominal or pelvic lymphadenopathy. Abdominal aorta is w ithin normal limits. IMPRESSION: Findings consistent with constipation. Signed: Mini Ly MDReportVerified Date/Time: 06/27/2022 05:31:41 [id number] 02:42:45 Test Item Value Reference Range Interpretation Comments LIPASE (BEAKER) (test code = 749) < U/L 8-78 L Director Apparel ID - PIAYA LHEPATIC FUNCTION [id number] 02:15:20 Test Item Value Reference Range Interpretation Comments TOTAL PROTEIN (BEAKER) (test code = 7.3 gm/dL 6.0-8.3 770) ALBUMIN (BEAKER) (test code = 1145) 4.2 g/dL 3.5-5.0 BILIRUBIN TOTAL (BEAKER) (test code 0.8 mg/dL 0.2-1.2 = 377) BILIRUBIN DIRECT (BEAKER) (test 0.4 mg/dL 0.1-0.5 code = 706) ALKALINE PHOSPHATASE (BEAKER) (test 97 U/L 40-150 code = 346) AST (SGOT) (BEAKER) (test code = 16 U/L 5-34 353) ALT (SGPT) (BEAKER) (test code = 16 U/L 6-55 347) Director Apparel ID - PIAYA LBASIC METABOLIC [id number] 02:15:19 Test Item Value Reference Range Interpretation Comments SODIUM (BEAKER) 138 meq/L 136-145 (test code = 381) POTASSIUM 4.0 meq/L 3.5-5.1 (BEAKER) (test code = 379) CHLORIDE (BEAKER) 106 meq/L 98-107 (test code = 382) CO2 (BEAKER) 23 meq/L 22-29 (test code = 355) BLOOD UREA 18 mg/dL 7-21 NITROGEN (BEAKER) (test code = 354) CREATININE 1.16 mg/dL 0.57-1.25 (BEAKER) (test code = 358) GLUCOSE RANDOM 100 mg/dL 70-105 (BEAKER) (test code = 652) CALCIUM (BEAKER) 9.2 mg/dL 8.4-10.2 (test code = 697) EGFR (BEAKER) 80 Interpretatio n of eGFR (test code = mL/min/1.73 values Stage De scription 1092) sq m Result G1 Marlena l or high >=90 G2 Mildly decreased 60-89 G3a Mildl y to moderately 45-5 9 G3b Moderately to s everely 30-44 G4 Severl y decreased 15-29 G5 Kidney failure <15Reported eGF R is based on the CKD-EPI 2020 equation that d oes not use a race coefficientEsti mated GFR is not as accur ate as Creatinine Collette samy in predicting glom erular filtration rate . Estimated GFR is not appl icable for dialysis patien ts Director Apparel ID - PIAYA LCBC W/PLT COUNT & AUTO [id number] 01:44:55 Test Item Value Reference Range Interpretation Comments WHITE BLOOD CELL COUNT (BEAKER) 8.9 K/ L 3.5-10.5 (test code = 775) RED BLOOD CELL COUNT (BEAKER) 4.68 M/ L 4.63-6.08 (test code = 761) HEMOGLOBIN (BEAKER) (test code = 13.9 GM/DL 13.7-17.5 410) HEMATOCRIT (BEAKER) (test code = 41.7 % 40.1-51.0 411) MEAN CORPUSCULAR VOLUME (BEAKER) 89.1 fL 79.0-92.2 (test code = 753) MEAN CORPUSCULAR HEMOGLOBIN 29.7 pg 25.7-32.2 (BEAKER) (test code = 751) MEAN CORPUSCULAR HEMOGLOBIN CONC 33.3 GM/DL 32.3-36.5 (BEAKER) (test code = 752) RED CELL DISTRIBUTION WIDTH 13.3 % 11.6-14.4 (BEAKER) (test code = 412) PLATELET COUNT (BEAKER) (test 234 K/CU MM 150-450 code = 756) MEAN PLATELET VOLUME (BEAKER) 11.1 fL 9.4-12.4 (test code = 754) NUCLEATED RED BLOOD CELLS 0 /100 WBC 0-0 (BEAKER) (test code = 413) NEUTROPHILS RELATIVE PERCENT 65 % (BEAKER) (test code = 429) LYMPHOCYTES RELATIVE PERCENT 22 % (BEAKER) (test code = 430) MONOCYTES RELATIVE PERCENT 9 % (BEAKER) (test code = 431) EOSINOPHILS RELATIVE PERCENT 3 % (BEAKER) (test code = 432) BASOPHILS RELATIVE PERCENT 0 % (BEAKER) (test code = 437) NEUTROPHILS ABSOLUTE COUNT 5.78 K/ L 1.78-5.38 H (BEAKER) (test code = 670) LYMPHOCYTES ABSOLUTE COUNT 1.97 K/ L 1.32-3.57 (BEAKER) (test code = 414) MONOCYTES ABSOLUTE COUNT (BEAKER) 0.83 K/ L 0.30-0.82 H (test code = 415) EOSINOPHILS ABSOLUTE COUNT 0.25 K/ L 0.04-0.54 (BEAKER) (test code = 416) BASOPHILS ABSOLUTE COUNT (BEAKER) 0.03 K/ L 0.01-0.08 (test code = 417) IMMATURE GRANULOCYTES-RELATIVE 0 % 0-1 PERCENT (BEAKER) (test code = 2801) BLOOD [id number] 22:01:03 Test Item Value Reference Range Interpretation Comments CULTURE (BEAKER) (test No growth in 5 days code = 1095) BLOOD [id number] 22:01:03 Test Item Value Reference Range Interpretation Comments CULTURE (BEAKER) (test No growth in 5 days code = 1095) POC-Glucose [id number] 17:23:45 Test Item Value Reference Range Interpretation Comments POC-Glucose Meter (test 137 mg/dL 70-110 H : TE STED AT [facility] code = 1538) [address] [facility], 770 30: Director Apparel/Techni rian ID = [id number] for Yarsani, Kayl ynn Lab Interpretation (test Abnormal code = 78904-0) [facility] [id number] 17:23:45 Test Item Value Reference Range Interpretation Comments POC-Glucose Meter (test 137 mg/dL 70-110 H : TE STED AT [facility] code = 1538) 20 [facility], 770 30: Director Apparel/Techni rian ID = [id number] for Yarsani, Kayl ynn Lab Interpretation (test Abnormal code = 20093-3) [facility] Vista[facility]CT[facility]GLUCOSE [id number] 17:23:45 Test Item Value Reference Range Interpretation Comments POC-GLUCOSE METER 137 mg/dL 70-110 H : TESTED A T [facility] 6720 (BEAKER) (test code = [facility], 1538) [address]: Director Apparel/Techni rian ID = [id number] for Ch ristian, Radha POCT-GLUCOSE [id number] 13:08:56 Test Item Value Reference Range Interpretation Comments POC-GLUCOSE METER 101 mg/dL 70-110 : TESTED A T [facility] 6720 (BEAKER) (test code = [facility], 1538) [address]: Director Apparel/Techni rian ID = [id number] for Ch ristian, Radha POCT-GLUCOSE [id number] 06:01:56 Test Item Value Reference Range Interpretation Comments POC-GLUCOSE METER 99 mg/dL 70-110 : TESTED A T [facility] 6720 (BEAKER) (test code = [facility], 1538) 837[address]: Director Apparel/Techni rian ID = [id number] for NAOMI NAPIER [id number] 04:54:21 Test Item Value Reference Range Interpretation Comments PHOSPHORUS (BEAKER) (test code = 2.2 mg/dL 2.3-4.7 L 604) Director Apparel ID - ANETA LBASIC METABOLIC [id number] 04:54:20 Test Item Value Reference Range Interpretation Comments SODIUM (BEAKER) 138 meq/L 136-145 (test code = 381) POTASSIUM 3.8 meq/L 3.5-5.1 (BEAKER) (test code = 379) CHLORIDE (BEAKER) 108 meq/L 98-107 H (test code = 382) CO2 (BEAKER) 25 meq/L 22-29 (test code = 355) BLOOD UREA 4 mg/dL 7-21 L NITROGEN (BEAKER) (test code = 354) CREATININE 0.97 mg/dL 0.57-1.25 (BEAKER) (test code = 358) GLUCOSE RANDOM 104 mg/dL 70-105 (BEAKER) (test code = 652) CALCIUM (BEAKER) 8.8 mg/dL 8.4-10.2 (test code = 697) EGFR (BEAKER) 99 Interpretatio n of eGFR (test code = mL/min/1.73 values Stage De scription 1092) sq m Result G1 Marlena l or high >=90 G2 Mildly decreased 60-89 G3a Mildl y to moderately 45-5 9 G3b Moderately to s everely 30-44 G4 Severl y decreased 15-29 G5 Kidney failure <15Reported eGF R is based on the CKD-EPI 2020 equation that d oes not use a race coefficientEsti mated GFR is not as accur ate as Creatinine Collette pablo in predicting glom erular filtration rate . Estimated GFR is not appl icable for dialysis patien ts Director Apparel ID - ANETA [id number] 04:54:20 Test Item Value Reference Range Interpretation Comments MAGNESIUM (BEAKER) (test code = 1.5 mg/dL 1.6-2.6 L 627) Director Apparel ID - ANETA LCALCIUM, [id number] 04:35:35 Test Item Value Reference Range Interpretation Comments CALCIUM IONIZED (BEAKER) (test 1.21 mmol/L 1.12-1.27 code = 698) PH, BLOOD (BEAKER) (test code = 7.44 1810) CBC W/PLT COUNT & AUTO [id number] 04:29:51 Test Item Value Reference Range Interpretation Comments WHITE BLOOD CELL COUNT (BEAKER) 4.0 K/ L 3.5-10.5 (test code = 775) RED BLOOD CELL COUNT (BEAKER) 3.81 M/ L 4.63-6.08 L (test code = 761) HEMOGLOBIN (BEAKER) (test code = 11.6 GM/DL 13.7-17.5 L 410) HEMATOCRIT (BEAKER) (test code = 34.3 % 40.1-51.0 L 411) MEAN CORPUSCULAR VOLUME (BEAKER) 90.0 fL 79.0-92.2 (test code = 753) MEAN CORPUSCULAR HEMOGLOBIN 30.4 pg 25.7-32.2 (BEAKER) (test code = 751) MEAN CORPUSCULAR HEMOGLOBIN CONC 33.8 GM/DL 32.3-36.5 (BEAKER) (test code = 752) RED CELL DISTRIBUTION WIDTH 13.3 % 11.6-14.4 (BEAKER) (test code = 412) PLATELET COUNT (BEAKER) (test 190 K/CU MM 150-450 code = 756) MEAN PLATELET VOLUME (BEAKER) 11.2 fL 9.4-12.4 (test code = 754) NUCLEATED RED BLOOD CELLS 0 /100 WBC 0-0 (BEAKER) (test code = 413) NEUTROPHILS RELATIVE PERCENT 36 % (BEAKER) (test code = 429) LYMPHOCYTES RELATIVE PERCENT 46 % (BEAKER) (test code = 430) MONOCYTES RELATIVE PERCENT 11 % (BEAKER) (test code = 431) EOSINOPHILS RELATIVE PERCENT 6 % (BEAKER) (test code = 432) BASOPHILS RELATIVE PERCENT 1 % (BEAKER) (test code = 437) NEUTROPHILS ABSOLUTE COUNT 1.45 K/ L 1.78-5.38 L (BEAKER) (test code = 670) LYMPHOCYTES ABSOLUTE COUNT 1.84 K/ L 1.32-3.57 (BEAKER) (test code = 414) MONOCYTES ABSOLUTE COUNT (BEAKER) 0.42 K/ L 0.30-0.82 (test code = 415) EOSINOPHILS ABSOLUTE COUNT 0.25 K/ L 0.04-0.54 (BEAKER) (test code = 416) BASOPHILS ABSOLUTE COUNT (BEAKER) 0.04 K/ L 0.01-0.08 (test code = 417) IMMATURE GRANULOCYTES-RELATIVE 0 % 0-1 PERCENT (BEAKER) (test code = 2801) POCT-GLUCOSE [id number] 00:27:52 Test Item Value Reference Range Interpretation Comments POC-GLUCOSE METER 122 mg/dL 70-110 H : TESTED A T [facility] 6720 (BEAKER) (test code = [facility], 153) [address]: Director Apparel/Techni rian ID = [id number] for UL LATJUNE, NAOMI POCT-GLUCOSE [id number] 17:23:54 Test Item Value Reference Range Interpretation Comments POC-GLUCOSE METER 99 mg/dL 70-110 : TESTED A T [facility] 6720 (BEAKER) (test code = [facility], 1538) [address]: Director Apparel/Techni rian ID = [id number] for Radha Mulligan POCT-GLUCOSE [id number] 13:00:38 Test Item Value Reference Range Interpretation Comments POC-GLUCOSE METER 109 mg/dL 70-110 : TESTED A T [facility] 6720 (BEAKER) (test code = [facility], 1538) 387[address]: Director Apparel/Techni rian ID = [id number] for Radha Carranza POCT-GLUCOSE [id number] 08:29:30 Test Item Value Reference Range Interpretation Comments POC-GLUCOSE METER 88 mg/dL 70-110 : TESTED A T [facility] 6720 (BEAKER) (test code = [facility], 1538) 275[address]: Director Apparel/Techni rian ID = [id number] for Radha Mulligan [id number] 06:05:22 Test Item Value Reference Range Interpretation Comments MAGNESIUM (BEAKER) (test code = 1.6 mg/dL 1.6-2.6 627) Director Apparel ID - [id number] 06:05:22 Test Item Value Reference Range Interpretation Comments PHOSPHORUS (BEAKER) (test code = 2.5 mg/dL 2.3-4.7 604) Director Apparel ID - MITCHBASIC METABOLIC [id number] 06:05:21 Test Item Value Reference Range Interpretation Comments SODIUM (BEAKER) 136 meq/L 136-145 (test code = 381) POTASSIUM 3.7 meq/L 3.5-5.1 (BEAKER) (test code = 379) CHLORIDE (BEAKER) 106 meq/L 98-107 (test code = 382) CO2 (BEAKER) 22 meq/L 22-29 (test code = 355) BLOOD UREA 7 mg/dL 7-21 NITROGEN (BEAKER) (test code = 354) CREATININE 1.04 mg/dL 0.57-1.25 (BEAKER) (test code = 358) GLUCOSE RANDOM 91 mg/dL 70-105 (BEAKER) (test code = 652) CALCIUM (BEAKER) 8.7 mg/dL 8.4-10.2 (test code = 697) EGFR (BEAKER) 91 Interpretatio n of eGFR (test code = mL/min/1.73 values Stage De scription 1092) sq m Result G1 Marlena l or high >=90 G2 Mildly decreased 60-89 G3a Mildl y to moderately 45-5 9 G3b Moderately to s everely 30-44 G4 Severl y decreased 15-29 G5 Kidney failure <15Reported eGF R is based on the CKD-EPI 2020 equation that d oes not use a race coefficientEsti mated GFR is not as accur ate as Creatinine Collette pablo in predicting glom erular filtration rate . Estimated GFR is not appl icable for dialysis patien ts Director Apparel ID - MITCHCBC W/PLT COUNT & AUTO [id number] 05:22:05 Test Item Value Reference Range Interpretation Comments WHITE BLOOD CELL COUNT (BEAKER) 5.2 K/ L 3.5-10.5 (test code = 775) RED BLOOD CELL COUNT (BEAKER) 3.97 M/ L 4.63-6.08 L (test code = 761) HEMOGLOBIN (BEAKER) (test code = 12.0 GM/DL 13.7-17.5 L 410) HEMATOCRIT (BEAKER) (test code = 35.8 % 40.1-51.0 L 411) MEAN CORPUSCULAR VOLUME (BEAKER) 90.2 fL 79.0-92.2 (test code = 753) MEAN CORPUSCULAR HEMOGLOBIN 30.2 pg 25.7-32.2 (BEAKER) (test code = 751) MEAN CORPUSCULAR HEMOGLOBIN CONC 33.5 GM/DL 32.3-36.5 (BEAKER) (test code = 752) RED CELL DISTRIBUTION WIDTH 13.2 % 11.6-14.4 (BEAKER) (test code = 412) PLATELET COUNT (BEAKER) (test 201 K/CU MM 150-450 code = 756) MEAN PLATELET VOLUME (BEAKER) 11.4 fL 9.4-12.4 (test code = 754) NUCLEATED RED BLOOD CELLS 0 /100 WBC 0-0 (BEAKER) (test code = 413) NEUTROPHILS RELATIVE PERCENT 43 % (BEAKER) (test code = 429) LYMPHOCYTES RELATIVE PERCENT 38 % (BEAKER) (test code = 430) MONOCYTES RELATIVE PERCENT 11 % (BEAKER) (test code = 431) EOSINOPHILS RELATIVE PERCENT 6 % (BEAKER) (test code = 432) BASOPHILS RELATIVE PERCENT 1 % (BEAKER) (test code = 437) NEUTROPHILS ABSOLUTE COUNT 2.23 K/ L 1.78-5.38 (BEAKER) (test code = 670) LYMPHOCYTES ABSOLUTE COUNT 1.98 K/ L 1.32-3.57 (BEAKER) (test code = 414) MONOCYTES ABSOLUTE COUNT (BEAKER) 0.57 K/ L 0.30-0.82 (test code = 415) EOSINOPHILS ABSOLUTE COUNT 0.33 K/ L 0.04-0.54 (BEAKER) (test code = 416) BASOPHILS ABSOLUTE COUNT (BEAKER) 0.05 K/ L 0.01-0.08 (test code = 417) IMMATURE GRANULOCYTES-RELATIVE 0 % 0-1 PERCENT (BEAKER) (test code = 2801) CALCIUM, [id number] 05:08:23 Test Item Value Reference Range Interpretation Comments CALCIUM IONIZED (BEAKER) (test 1.18 mmol/L 1.12-1.27 code = 698) PH, BLOOD (BEAKER) (test code = 7.42 1810) POCT-GLUCOSE [id number] 21:15:12 Test Item Value Reference Range Interpretation Comments POC-GLUCOSE METER 98 mg/dL 70-110 : TESTED A T [facility] 6720 (BEAKER) (test code = [place], 1538) [address]: Director Apparel/Techni rian ID = [id number] for KURT JACQUES POCT-GLUCOSE [id number] 17:48:23 Test Item Value Reference Range Interpretation Comments POC-GLUCOSE METER 90 mg/dL 70-110 : TESTED A T [facility] 6720 (BEAKER) (test code = [facility], [facility]) [address]: Director Apparel/Techni rian ID = [id number] for OLLIE RYAN DELATORREINA POCT-GLUCOSE [id number] 12:56:50 Test Item Value Reference Range Interpretation Comments POC-GLUCOSE METER 78 mg/dL 70-110 : TESTED A T [facility] 6720 (BEAKER) (test code = [facility], [facility]8) [address]: Director Apparel/Techni rian ID = [id number] for RYAN SANCHESINA POCT-GLUCOSE [id number] 10:25:02 Test Item Value Reference Range Interpretation Comments POC-GLUCOSE METER 86 mg/dL 70-110 : TESTED A T [facility] 6720 (BEAKER) (test code = [facility], [facility]) [address]: Director Apparel/Techni rian ID = [id number] for FRANKI RUBALCAVA, NEALCHEL POCT-GLUCOSE [id number] 08:38:42 Test Item Value Reference Range Interpretation Comments POC-GLUCOSE METER 39 mg/dL 70-110 LL : TESTED A T [facility] 6720 (BEAKER) (test code = [facility], [facility]) [address]: Director Apparel/Techni rian ID = [id number] for OLLIE BJORN DELATORRE BASIC METABOLIC [id number] 06:19:55 Test Item Value Reference Range Interpretation Comments SODIUM (BEAKER) 135 meq/L 136-145 L (test code = 381) POTASSIUM 4.1 meq/L 3.5-5.1 (BEAKER) (test code = 379) CHLORIDE (BEAKER) 106 meq/L 98-107 (test code = 382) CO2 (BEAKER) 19 meq/L 22-29 L (test code = 355) BLOOD UREA 10 mg/dL 7-21 NITROGEN (BEAKER) (test code = 354) CREATININE 0.98 mg/dL 0.57-1.25 (BEAKER) (test code = 358) GLUCOSE RANDOM 72 mg/dL 70-105 (BEAKER) (test code = 652) CALCIUM (BEAKER) 8.6 mg/dL 8.4-10.2 (test code = 697) EGFR (BEAKER) 97 Interpretatio n of eGFR (test code = mL/min/1.73 values Stage De scription 1092) sq m Result G1 Marlena l or high >=90 G2 Mildly decreased 60-89 G3a Mildl y to moderately 45-5 9 G3b Moderately to s everely 30-44 G4 Severl y decreased 15-29 G5 Kidney failure <15Reported eGF R is based on the CKD-EPI 2020 equation that d oes not use a race coefficientEsti mated GFR is not as accur ate as Creatinine Collette samy in predicting glom erular filtration rate . Estimated GFR is not appl icable for dialysis patien ts Director Apparel ID - ANETA [id number] 06:19:55 Test Item Value Reference Range Interpretation Comments MAGNESIUM (BEAKER) (test code = 1.7 mg/dL 1.6-2.6 627) Director Apparel ID - ANETA [id number] 06:19:55 Test Item Value Reference Range Interpretation Comments PHOSPHORUS (BEAKER) (test code = 2.7 mg/dL 2.3-4.7 604) Director Apparel ID - ANETA LCALCIUM, [id number] 05:32:18 Test Item Value Reference Range Interpretation Comments CALCIUM IONIZED (BEAKER) (test 1.17 mmol/L 1.12-1.27 code = 698) PH, BLOOD (BEAKER) (test code = 7.38 1810) CBC W/PLT COUNT & AUTO [id number] 05:17:46 Test Item Value Reference Range Interpretation Comments WHITE BLOOD CELL COUNT (BEAKER) 5.8 K/ L 3.5-10.5 (test code = 775) RED BLOOD CELL COUNT (BEAKER) 3.97 M/ L 4.63-6.08 L (test code = 761) HEMOGLOBIN (BEAKER) (test code = 11.9 GM/DL 13.7-17.5 L 410) HEMATOCRIT (BEAKER) (test code = 35.9 % 40.1-51.0 L 411) MEAN CORPUSCULAR VOLUME (BEAKER) 90.4 fL 79.0-92.2 (test code = 753) MEAN CORPUSCULAR HEMOGLOBIN 30.0 pg 25.7-32.2 (BEAKER) (test code = 751) MEAN CORPUSCULAR HEMOGLOBIN CONC 33.1 GM/DL 32.3-36.5 (BEAKER) (test code = 752) RED CELL DISTRIBUTION WIDTH 13.1 % 11.6-14.4 (BEAKER) (test code = 412) PLATELET COUNT (BEAKER) (test 197 K/CU MM 150-450 code = 756) MEAN PLATELET VOLUME (BEAKER) 10.7 fL 9.4-12.4 (test code = 754) NUCLEATED RED BLOOD CELLS 0 /100 WBC 0-0 (BEAKER) (test code = 413) NEUTROPHILS RELATIVE PERCENT 49 % (BEAKER) (test code = 429) LYMPHOCYTES RELATIVE PERCENT 35 % (BEAKER) (test code = 430) MONOCYTES RELATIVE PERCENT 8 % (BEAKER) (test code = 431) EOSINOPHILS RELATIVE PERCENT 8 % (BEAKER) (test code = 432) BASOPHILS RELATIVE PERCENT 1 % (BEAKER) (test code = 437) NEUTROPHILS ABSOLUTE COUNT 2.80 K/ L 1.78-5.38 (BEAKER) (test code = 670) LYMPHOCYTES ABSOLUTE COUNT 2.01 K/ L 1.32-3.57 (BEAKER) (test code = 414) MONOCYTES ABSOLUTE COUNT (BEAKER) 0.47 K/ L 0.30-0.82 (test code = 415) EOSINOPHILS ABSOLUTE COUNT 0.44 K/ L 0.04-0.54 (BEAKER) (test code = 416) BASOPHILS ABSOLUTE COUNT (BEAKER) 0.04 K/ L 0.01-0.08 (test code = 417) IMMATURE GRANULOCYTES-RELATIVE 0 % 0-1 PERCENT (BEAKER) (test code = 2801) POCT-GLUCOSE [id number] 21:21:38 Test Item Value Reference Range Interpretation Comments POC-GLUCOSE METER 83 mg/dL 70-110 : TESTED A T [facility] 6720 (BEAKER) (test code = [facility] [place], 1538) [address]: Director Apparel/Techni rian ID = [id number] for KURT JACQUES POCT-GLUCOSE [id number] 17:35:25 Test Item Value Reference Range Interpretation Comments POC-GLUCOSE METER 92 mg/dL 70-110 : TESTED A T [facility] 6720 (BEAKER) (test code = [place], 1538) [address]: Director Apparel/Techni rian ID = [id number] for BJORN SANCHES POCT-GLUCOSE [id number] 12:27:21 Test Item Value Reference Range Interpretation Comments POC-GLUCOSE METER 86 mg/dL 70-110 : TESTED A T [facility] 6720 (BEAKER) (test code = [place], 1538) [address]: Director Apparel/Techni rian ID = [id number] for ABDIRASHID ANGEL BASIC METABOLIC [id number] 05:55:16 Test Item Value Reference Range Interpretation Comments SODIUM (BEAKER) 134 meq/L 136-145 L (test code = 381) POTASSIUM 4.3 meq/L 3.5-5.1 (BEAKER) (test code = 379) CHLORIDE (BEAKER) 107 meq/L 98-107 (test code = 382) CO2 (BEAKER) 19 meq/L 22-29 L (test code = 355) BLOOD UREA 12 mg/dL 7-21 NITROGEN (BEAKER) (test code = 354) CREATININE 0.97 mg/dL 0.57-1.25 (BEAKER) (test code = 358) GLUCOSE RANDOM 90 mg/dL 70-105 (BEAKER) (test code = 652) CALCIUM (BEAKER) 8.6 mg/dL 8.4-10.2 (test code = 697) EGFR (BEAKER) 99 Interpretati on of eGFR (test code = mL/min/1.73 values Stage De scription 1092) sq m Result G1 Marlena l or high >=90 G2 Mildly decreased 60-89 G3a Mildl y to moderately 45-5 9 G3b Moderately to s everely 30-44 G4 Severl y decreased 15-29 G5 Kidney failure <15Reported eGF R is based on the CKD-EPI 2020 equation that d oes not use a race coefficientEsti mated GFR is not as accur ate as Creatinine Collette samy in predicting glom erular filtration rate . Estimated GFR is not appl icable for dialysis patien ts Director Apparel ID - NEIL [id number] 05:55:16 Test Item Value Reference Range Interpretation Comments MAGNESIUM (BEAKER) (test code = 1.4 mg/dL 1.6-2.6 L 627) Director Apparel ID - NEIL MCBC W/PLT COUNT & AUTO [id number] 04:55:50 Test Item Value Reference Range Interpretation Comments WHITE BLOOD CELL COUNT (BEAKER) 6.3 K/ L 3.5-10.5 (test code = 775) RED BLOOD CELL COUNT (BEAKER) 3.99 M/ L 4.63-6.08 L (test code = 761) HEMOGLOBIN (BEAKER) (test code = 12.1 GM/DL 13.7-17.5 L 410) HEMATOCRIT (BEAKER) (test code = 36.5 % 40.1-51.0 L 411) MEAN CORPUSCULAR VOLUME (BEAKER) 91.5 fL 79.0-92.2 (test code = 753) MEAN CORPUSCULAR HEMOGLOBIN 30.3 pg 25.7-32.2 (BEAKER) (test code = 751) MEAN CORPUSCULAR HEMOGLOBIN CONC 33.2 GM/DL 32.3-36.5 (BEAKER) (test code = 752) RED CELL DISTRIBUTION WIDTH 13.2 % 11.6-14.4 (BEAKER) (test code = 412) PLATELET COUNT (BEAKER) (test 208 K/CU MM 150-450 code = 756) MEAN PLATELET VOLUME (BEAKER) 10.9 fL 9.4-12.4 (test code = 754) NUCLEATED RED BLOOD CELLS 0 /100 WBC 0-0 (BEAKER) (test code = 413) NEUTROPHILS RELATIVE PERCENT 43 % (BEAKER) (test code = 429) LYMPHOCYTES RELATIVE PERCENT 42 % (BEAKER) (test code = 430) MONOCYTES RELATIVE PERCENT 8 % (BEAKER) (test code = 431) EOSINOPHILS RELATIVE PERCENT 6 % (BEAKER) (test code = 432) BASOPHILS RELATIVE PERCENT 1 % (BEAKER) (test code = 437) NEUTROPHILS ABSOLUTE COUNT 2.74 K/ L 1.78-5.38 (BEAKER) (test code = 670) LYMPHOCYTES ABSOLUTE COUNT 2.66 K/ L 1.32-3.57 (BEAKER) (test code = 414) MONOCYTES ABSOLUTE COUNT (BEAKER) 0.49 K/ L 0.30-0.82 (test code = 415) EOSINOPHILS ABSOLUTE COUNT 0.37 K/ L 0.04-0.54 (BEAKER) (test code = 416) BASOPHILS ABSOLUTE COUNT (BEAKER) 0.04 K/ L 0.01-0.08 (test code = 417) IMMATURE GRANULOCYTES-RELATIVE 0 % 0-1 PERCENT (BEAKER) (test code = 2801) SARS-COV2/RT-PCR ([facility])2022-06-18 23:40:17 Test Item Value Reference Range Interpretation Comments SARS-COV2/RT-PCR Negative Negative The SARS-Co V-2 target (test code = nucleic acids a re not [id number]) detected in thi s specimen. Negative result s do not preclude SARS-C oV-2 infection and s hould not be used as the júnior e basis for patient managem ent decisions. Nega tive results must be combine d with clinical observ ations, patient history , and epidemiological information. A false negativ e result may occur if a spec imen is improperly chuy ected, transported or handled. This SARS CoV-2 test is a rapid, real-time RT-PC R test intended for th e qualitative detection of nu cleic acid from SARS-CoV-2 in a nasopharyngeal swab specimen collected from individuals suspected of CO VID-19 by their healthcar e provider. This test has been authorized by FDA under an EUA for use by authorized laboratories. This test is only authorized for the duration of the declaration that circumstances exist justifying the authorization of emergency use of in vitro diagnostic tests for detection and/or diagnosis of COVID-19 under Section 564(b)(1) of the Federal Food, Drug and Cosmetic Act, 21 U.S.C. 360bbb-3(b)(1), unless the authorization is terminated or revoked sooner. Fact Sheet for Healthcare Providers: https://[email or web address] m/[email or web address]%20SARS%20CoV-[email or web address]/Fact%20Sheets/[email or web address] HEALTHCARE%20PROVIDERS%20FACT%20SHEET.pdf Fact Sheet for Healthcare Patients: [email or web address], [id number] 23:39:00Unlisted Reason for Exam - Click Yes and Enter Reason Below->NoIs this for enterography?->NoWill this procedure require oral contrast?->No [facility] 1975 Sex: MFINAL REPORT TECHNIQUE: CT of the abdomen and pelvis WITH intravenous contrast and WITHOUT oral contrast. Dose modulation, iterative reconstruction, and/or weight-based adjustment of the mA/kV was utilized to reduce the radiation dose to as low as reasonably achievable. INDICATION:Bowel obstruction suspected. COMPARISON: 12/05/2021. FINDINGS: LOWER THORAX: Unremarkable. HEPATOBILIARY: No focal hepatic lesions. Gallbladder is unremarkable. No biliary ductal dilatation.SPLEEN: No splenomegaly.PANCREAS: Completely fatty atrophied. ADRENALS: No adrenal nodules.KIDNEYS/URETERS: No hydronephrosis, stones, or masses.PELVIC ORGANS/BLADDER: Unremarkable. PERITONEUM/RETROPERITONEUM: No free air or fluid.LYMPH NODES: No lymphadenopathy.VESSELS: Unremarkable. GI TRACT: Small bowel is diffusely mildly distended with diameter of 3.0 cm. No discrete transition point to decompressed small bowel. There is a large volume of fecal matter present throughout the colon and and fecal-like materialwithin the distal ileum. Appearance is similar compared to priors. No wall thickening. No pneumatosis intestinalis. Post surgical changes from prior right hemicolectomy. BONES AND SOFT TISSUES: No acute osseous abnormality. Soft tissues are unremarkable. IMPRESSION:Diffusely distended small bowel without transition point and large volume of colonic fecal matter similar in comparison to several priors. 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 Signed: Dimitri, Carmelo MDReport Verified Date/Time: 06/18/2022 23:39:49 POCT-GLUCOSE [id number] 23:35:19 Test Item Value Reference Range Interpretation Comments POC-GLUCOSE METER 105 mg/dL 70-110 : TESTED Lillian Méndez [facility] 6720 (BEAKER) (test code [facility], = 1538) [address]: Director Apparel/Techni rian ID = [id number] for SABINE WOODS [id number] 21:52:33 Test Item Value Reference Range Interpretation Comments PARTIAL THROMBOPLASTIN TIME 31.4 seconds 22.5-36.0 (BEAKER) (test code = 760) PROTHROMBIN TIME/[id number] 21:51:51 Test Item Value Reference Range Interpretation Comments PROTIME (BEAKER) 18.2 seconds 11.9-14.2 H (test code = 759) INR (BEAKER) (test 1.61 See_Comment [Automat ed message] code = 370) The system [employer] generated this result transmitted ref erence range: <=5.90. The reference range was not used to int erpret this result as normal/abnormal . RECOMMENDED COUMADIN/WARFARIN INR THERAPY RANGESSTANDARD DOSE: 2.0 - 3.0 Includes: PROPHYLAXIS for venous thrombosis, systemic embolization; TREATMENT for venous thrombosis and/or pulmonary embolus.HIGH RISK: Target INR is 2.5-3.5 for patients with mechanical heart valves.COMPREHENSIVE METABOLIC PANEL 2022-06-18 21:46:31 Test Item Value Reference Range Interpretation Comments TOTAL PROTEIN 7.0 gm/dL 6.0-8.3 (BEAKER) (test code = 770) ALBUMIN (BEAKER) 4.0 g/dL 3.5-5.0 (test code = 1145) ALKALINE 83 U/L 40-150 PHOSPHATASE (BEAKER) (test code = 346) BILIRUBIN TOTAL 0.9 mg/dL 0.2-1.2 (BEAKER) (test code = 377) SODIUM (BEAKER) 140 meq/L 136-145 (test code = 381) POTASSIUM (BEAKER) 3.9 meq/L 3.5-5.1 (test code = 379) CHLORIDE (BEAKER) 108 meq/L 98-107 H (test code = 382) CO2 (BEAKER) (test 25 meq/L 22-29 code = 355) BLOOD UREA 15 mg/dL 7-21 NITROGEN (BEAKER) (test code = 354) CREATININE 1.25 mg/dL 0.57-1.25 (BEAKER) (test code = 358) GLUCOSE RANDOM 47 mg/dL 70-105 L (BEAKER) (test code = 652) CALCIUM (BEAKER) 9.4 mg/dL 8.4-10.2 (test code = 697) AST (SGOT) 23 U/L 5-34 (BEAKER) (test code = 353) ALT (SGPT) 19 U/L 6-55 (BEAKER) (test code = 347) EGFR (BEAKER) 73 Interpretatio n of eGFR (test code = 1092) mL/min/1.[address] age Description sq m Result G1 Marlena l or high >=90 G2 Mildly decreased 60-89 G3a Mild ly to moderately 45-5 9 G3b Moderately to s everely 30-44 G4 Severl y decreased 15-29 G5 Kidney failure <15Reported eGF R is based on the CKD-EPI 2020 equation that d oes not use a race coefficientEsti mated GFR is not as accur ate as Creatinine Collette samy in predicting glom erular filtration rate . Estimated GFR is not appl icable for dialysis patien ts Director Apparel ID - NEIL MLACTIC ACID, [id number] 21:36:08 Test Item Value Reference Range Interpretation Comments LACTATE BLOOD VENOUS 1.03 mmol/L 0.50-2.20 Specime n slightly (2) (BEAKER) (test hemolyzed code = 4958) Director Apparel ID - HARLEY [facility] W/PLT COUNT & AUTO [id number] 21:29:50 Test Item Value Reference Range Interpretation Comments WHITE BLOOD CELL COUNT (BEAKER) 7.4 K/ L 3.5-10.5 (test code = 775) RED BLOOD CELL COUNT (BEAKER) 4.22 M/ L 4.63-6.08 L (test code = 761) HEMOGLOBIN (BEAKER) (test code = 12.8 GM/DL 13.7-17.5 L 410) HEMATOCRIT (BEAKER) (test code = 38.9 % 40.1-51.0 L 411) MEAN CORPUSCULAR VOLUME (BEAKER) 92.2 fL 79.0-92.2 (test code = 753) MEAN CORPUSCULAR HEMOGLOBIN 30.3 pg 25.7-32.2 (BEAKER) (test code = 751) MEAN CORPUSCULAR HEMOGLOBIN CONC 32.9 GM/DL 32.3-36.5 (BEAKER) (test code = 752) RED CELL DISTRIBUTION WIDTH 13.3 % 11.6-14.4 (BEAKER) (test code = 412) PLATELET COUNT (BEAKER) (test 172 K/CU MM 150-450 code = 756) MEAN PLATELET VOLUME (BEAKER) 12.8 fL 9.4-12.4 H (test code = 754) NUCLEATED RED BLOOD CELLS 0 /100 WBC 0-0 (BEAKER) (test code = 413) NEUTROPHILS RELATIVE PERCENT 49 % (BEAKER) (test code = 429) LYMPHOCYTES RELATIVE PERCENT 35 % (BEAKER) (test code = 430) MONOCYTES RELATIVE PERCENT 10 % (BEAKER) (test code = 431) EOSINOPHILS RELATIVE PERCENT 4 % (BEAKER) (test code = 432) BASOPHILS RELATIVE PERCENT 1 % (BEAKER) (test code = 437) NEUTROPHILS ABSOLUTE COUNT 3.67 K/ L 1.78-5.38 (BEAKER) (test code = 670) LYMPHOCYTES ABSOLUTE COUNT 2.62 K/ L 1.32-3.57 (BEAKER) (test code = 414) MONOCYTES ABSOLUTE COUNT (BEAKER) 0.74 K/ L 0.30-0.82 (test code = 415) EOSINOPHILS ABSOLUTE COUNT 0.33 K/ L 0.04-0.54 (BEAKER) (test code = 416) BASOPHILS ABSOLUTE COUNT (BEAKER) 0.06 K/ L 0.01-0.08 (test code = 417) IMMATURE GRANULOCYTES-RELATIVE 0 % 0-1 PERCENT (BEAKER) (test code = 2801) AFB culture + smear (sputum only)2022-03-05 13:13:42 Test Item Value Reference Range Interpretation Comments Result (test code = No acid-fast bacilli 6463-4) isolated in 42 days AFB Smear (test code = No acid fast bacilli 64558-7) [facility] 13:13:42 Test Item Value Reference Range Interpretation Comments Result (test code = No acid-fast bacilli 6463-4) isolated in 42 days AFB Smear (test code = No acid fast bacilli 74282-5) [facility]2022-[facility]05 13:13:42 Test Item Value Reference Range Interpretation Comments Result (test code = No acid-fast bacilli 6463-4) isolated in 42 days AFB Smear (test code = No acid fast bacilli 74873-7) [facility] (SPUTUM ONLY)2022-03-05 13:13:42 Test Item Value Reference Range Interpretation Comments CULTURE (BEAKER) (test No acid-fast bacilli code = 1095) isolated in 42 days AFB SMEAR (BEAKER) No acid fast bacilli (test code = 994) seen AFB CULTURE + SMEAR (SPUTUM ONLY)2022-02-19 15:15:02 Test Item Value Reference Range Interpretation Comments CULTURE (BEAKER) (test No acid-fast bacilli code = 1095) isolated in 42 days AFB SMEAR (BEAKER) No acid fast bacilli (test code = 994) seen Fungus culture + [id number] 17:15:11 Test Item Value Reference Range Interpretation Comments Result (test code = No fungus isolated in 6463-4) 28 days Fungus Smear (test No fungi seen code = 1406) [facility] + [id number] 17:15:11 Test Item Value Reference Range Interpretation Comments Result (test code = No fungus isolated in 6463-4) 28 days Fungus Smear (test No fungi seen code = 1406) [facility] + [id number] 17:15:11 Test Item Value Reference Range Interpretation Comments Result (test code = No fungus isolated in 6463-4) 28 days Fungus Smear (test No fungi seen code = 1406) [facility] + [id number] 17:15:11 Test Item Value Reference Range Interpretation Comments CULTURE (BEAKER) (test No fungus isolated in code = 1095) 28 days FUNGUS SMEAR (BEAKER) No fungi seen (test code = 1406) FUNGUS CULTURE + [id number] 23:48:39 Test Item Value Reference Range Interpretation Comments CULTURE (BEAKER) (test No fungus isolated in code = 1095) 28 days FUNGUS SMEAR (BEAKER) No fungi seen (test code = 1406) [facility] RESPIRATORY [id number] 09:35:46 Test Item Value Reference Interpretation Comments Range CULTURE (BEAKER) KLEBSIELLA A <1+ Klebsie lla (test code = 1095) PNEUMONIAE pneumonia e Amikacin (test code = S 1) Ampicillin + S Sulbactam (test code = 6) Aztreonam (test code S = 32) Cefepime (test code = S 51) Cefoxitin (test code S = 68) Ceftazidime (test S code = 27) Ceftriaxone (test S code = 52) Ertapenem (test code S = 38) Gentamicin (test code S = 18) Levofloxacin (test S code = 22) Meropenem (test code S = 34) Piperacillin + S Tazobactam (test code = 29) Tetracycline (test S code = 2) Tobramycin (test code S = 25) Trimethoprim + S Sulfamethoxazole (test code = 47) CULTURE (BEAKER) ESCHERICHIA COLI A <1+ Esc herichia (test code = 1095) colimucoi d colony type Amikacin (test code = S 1) Ampicillin + S Sulbactam (test code = 6) Aztreonam (test code S = 32) Cefepime (test code = S 51) Cefoxitin (test code R = 68) Ceftazidime (test S code = 27) Ceftriaxone (test S code = 52) Ertapenem (test code S = 38) Gentamicin (test code S = 18) Levofloxacin (test R code = 22) Meropenem (test code S = 34) Nitrofurantoin (test S code = 23) Piperacillin + S Tazobactam (test code = 29) Tetracycline (test S code = 2) Tobramycin (test code S = 25) Trimethoprim + S Sulfamethoxazole (test code = 47) CULTURE (BEAKER) ACINETOBACTER A <1+ Acinet obacter (test code = 1095) BAUMANNII baumannii Amikacin (test code = See_Comment S [Auto mated 1) message] The system which generated this result transmitted reference range : Susceptible 0-1 6 , Resistant <0 or >16 . The reference range was not used to interpret this result as normal/abnormal . Ampicillin + See_Comment S [Automated Sulbactam (test code message ] The = 6) system which generated this result transmitted reference range : Susceptible 0-8 , Resistant <0 or >8 . The reference range was not used to interpret this result as normal/abnormal . Cefepime (test code = See_Comment S [Auto mated 51) message] The system which generated this result transmitted reference range : Susceptible 0-8 , Resistant <0 or >8 . The reference range was not used to interpret this result as normal/abnormal . Ceftazidime (test See_Comment S [Automate d code = 27) message] The system which generated this result transmitted reference range : Susceptible 0-8 , Resistant <0 or >8 . The reference range was not used to interpret this result as normal/abnormal . Ceftriaxone (test See_Comment S [Automate d code = 52) message] The system which generated this result transmitted reference range : Susceptible 0-8 , Resistant <0 or >8 . The reference range was not used to interpret this result as normal/abnormal . Ciprofloxacin (test See_Comment S [Automa joann code = 7) message] The system which generated this result transmitted reference range : Susceptible 0-1 , Resistant <0 or >1 . The reference range was not used to interpret this result as normal/abnormal . Gentamicin (test code See_Comment S [Auto mated = 18) message] The system which generated this result transmitted reference range : Susceptible 0-4 , Resistant <0 or >4 . The reference range was not used to interpret this result as normal/abnormal . Imipenem (test code = See_Comment S [Auto mated 19) message] The system which generated this result transmitted reference range : Susceptible 0-2 , Resistant <0 or >2 . The reference range was not used to interpret this result as normal/abnormal . Levofloxacin (test See_Comment S [Automat ed code = 22) message] The system which generated this result transmitted reference range : Susceptible 0-2 , Resistant <0 or >2 . The reference range was not used to interpret this result as normal/abnormal . Meropenem (test code See_Comment S [Autom ated = 34) message] The system which generated this result transmitted reference range : Susceptible 0-2 , Resistant <0 or >2 . The reference range was not used to interpret this result as normal/abnormal . Minocycline (test See_Comment S [Automate d code = 35) message] The system which generated this result transmitted reference range : Susceptible 0-4 , Resistant <0 or >4 . The reference range was not used to interpret this result as normal/abnormal . Piperacillin (test See_Comment S [Automat ed code = 24) message] The system which generated this result transmitted reference range : Susceptible 0-1 6 , Resistant <0 or >16 . The reference range was not used to interpret this result as normal/abnormal . Piperacillin + See_Comment S [Automated Tazobactam (test code messag e] The = 29) system which generated this result transmitted reference range : Susceptible 0-1 6 , Resistant <0 or >16 . The reference range was not used to interpret this result as normal/abnormal . Tetracycline (test See_Comment S [Automat ed code = 2) message] The system which generated this result transmitted reference range : Susceptible 0-4 , Resistant <0 or >4 . The reference range was not used to interpret this result as normal/abnormal . Tobramycin (test code See_Comment S [Auto mated = 25) message] The system which generated this result transmitted reference range : Susceptible 0-4 , Resistant <0 or >4 . The reference range was not used to interpret this result as normal/abnormal . Trimethoprim + See_Comment S [Automated Sulfamethoxazole message] Th e (test code = 47) system whic h generated this result transmitted reference range : Susceptible 0-4 0 , Resistant <0 or >40 . The reference range was not used to interpret this result as normal/abnormal . CULTURE (BEAKER) A <1+ Pseudom onas (test code = 1095) aeruginos a (Mucoid-phenoty pe ) 4+ Normal respiratory maria del carmen presentSPIN/CONCENTRATION [id number] 06:58:03 Test Item Value Reference Range Interpretation Comments Concentration charged (test code = Done 2656) [facility] [id number] 06:58:03 Test Item Value Reference Range Interpretation Comments Concentration charged (test code = Done 2656) [facility] [id number] 06:58:03 Test Item Value Reference Range Interpretation Comments Concentration charged (test code = Done 2656) [facility] [id number] 06:58:03 Test Item Value Reference Range Interpretation Comments CONCENTRATION CHARGED (BEAKER) (test Done code = 2657) CF RESPIRATORY [id number] 12:17:43 Test Item Value Reference Interpretation Comments Range CULTURE (BEAKER) KLEBSIELLA A 1+ Klebsiel la (test code = 1095) PNEUMONIAE pneumonia e Amikacin (test code = S 1) Ampicillin + S Sulbactam (test code = 6) Aztreonam (test code S = 32) Cefepime (test code = S 51) Cefoxitin (test code S = 68) Ceftazidime (test S code = 27) Ceftriaxone (test S code = 52) Ertapenem (test code S = 38) Gentamicin (test code S = 18) Levofloxacin (test S code = 22) Meropenem (test code S = 34) Nitrofurantoin (test S code = 23) Piperacillin + S Tazobactam (test code = 29) Tetracycline (test S code = 2) Tobramycin (test code S = 25) Trimethoprim + S Sulfamethoxazole (test code = 47) CULTURE (BEAKER) A <1+ Pseudom onas (test code = 1095) aeruginos amucoid colony type CULTURE (BEAKER) PSEUDOMONAS A 2+ Pseudomo kelli (test code = 1095) AERUGINOSA aeruginos aof a second type Amikacin (test code = See_Comment S [Auto mated message] 1) The system [employer] generated this result transmit joann reference range : Susceptible 0-1 6 , Resistant <0 or >16 . The reference range was not u sed to interpret th is result as normal/abnormal . Aztreonam (test code See_Comment S [Autom ated message] = 32) The system [employer] generated this result transmit joann reference range : Susceptible 0-8 , Resistant <0 or >8 . The reference r taurus was not used to interpret this result as normal/abnormal . Cefepime (test code = See_Comment R [Auto mated message] 51) The system [employer] generated this result transmit joann reference range : Susceptible 0-8 , Resistant <0 or >8 . The reference r taurus was not used to interpret this result as normal/abnormal . Ceftazidime (test See_Comment S [Automate d message] code = 27) The system [facility] generated this result transmit joann reference range : Susceptible 0-8 , Resistant <0 or >8 . The reference r taurus was not used to interpret this result as normal/abnormal . Ciprofloxacin (test See_Comment S [Automa joann message] code = 7) The system [facility] generated this result transmit joann reference range : Susceptible 0-0 .5 , Resistant <0 or >.5 . The reference range was not u sed to interpret th is result as normal/abnormal . Doripenem (test code See_Comment S [Autom ated message] = 100) The system [facility] generated this result transmit joann reference range : Susceptible 0-2 , Resistant <0 or >2 . The reference r taurus was not used to interpret this result as normal/abnormal . Gentamicin (test code See_Comment S [Auto mated message] = 18) The system [facility] generated this result transmit joann reference range : Susceptible 0-4 , Resistant <0 or >4 . The reference r taurus was not used to interpret this result as normal/abnormal . Imipenem (test code = See_Comment S [Auto mated message] 19) The system [facility] generated this result transmit joann reference range : Susceptible 0-2 , Resistant <0 or >2 . The reference r taurus was not used to interpret this result as normal/abnormal . Levofloxacin (test See_Comment S [Automat ed message] code = 22) The system [facility] generated this result transmit joann reference range : Susceptible 0-1 , Resistant <0 or >1 . The reference r taurus was not used to interpret this result as normal/abnormal . Meropenem (test code See_Comment S [Autom ated message] = 34) The system [facility] generated this result transmit joann reference range : Susceptible 0-2 , Resistant <0 or >2 . The reference r taurus was not used to interpret this result as normal/abnormal . Piperacillin (test See_Comment S [Automat ed message] code = 24) The system [facility] generated this result transmit joann reference range : Susceptible 0-1 6 , Resistant <0 or >16 . The reference range was not u sed to interpret th is result as normal/abnormal . Piperacillin + See_Comment S [Automated m essage] Tazobactam (test code The sy stem which = 29) generated this result transmit joann reference range : Susceptible 0-1 6 , Resistant <0 or >16 . The reference range was not u sed to interpret th is result as normal/abnormal . Tobramycin (test code See_Comment S [Auto mated message] = 25) The system [employer] generated this result transmit joann reference range : Susceptible 0-4 , Resistant <0 or >4 . The reference r taurus was not used to interpret this result as normal/abnormal . 3+ Normal respiratory maria del carmen presentSPIN/CONCENTRATION [id number] 11:16:43 Test Item Value Reference Range Interpretation Comments CONCENTRATION CHARGED (BEAKER) (test Done code = 2657) RAD, ABDOMEN/KUB, 1 VIEW [id number] 07:57:00Reason for exam:->[facility] 1975 Sex: MFINAL REPORT RAD, ABDOMEN/KUB, 1 VIEW AP CLINICAL INDICATION: Ileus COMPARISON: 11/30/2021 TECHNIQUE: Single, frontal radiograph of the abdomen. FINDINGS: The bowel gas pattern is nonspecific, but nonobstructive. Stool is present within the left colon and rectum. Evaluation for freeair is limited by portable supine technique. Within these limitations, no free air is identified. Signed: Lore Duque MDReport Verified Date/Time: 12/06/2021 07:57:20 Basic Metabolic [id number] 06:04:20 Test Item Value Reference Range Interpretation Comments Sodium (test code = 133 meq/L 136-145 L 2951-2) Potassium (test code = 4.2 meq/L 3.5-5.1 2823-3) Chloride (test code = 106 meq/L 98-107 2075-0) CO2 (test code = 21 meq/L 22-29 L 8-9) BUN (test code = 13 mg/dL 7-21 3094-0) Creatinine (test code 1.13 mg/dL 0.57-1.25 = 2160-0) Glucose (test code = 89 mg/dL 70-105 2345-7) Calcium (test code = 8.8 mg/dL 8.4-10.2 67036-5) EGFR (test code = 85 mL/min/1.73 [place] [address]-6) NOT ACCURATE CREATININE CLEARANCE IN PREDICTING GLOMERULAR FILTRATION RATE . ESTIMATED GFR I S NOT APPLICABLE FOR DIALYSIS PATIENTS. SHANA (test code = SHANA) Director Apparel ID - DB Lab Interpretation Abnormal (test code = 41287-6) [facility] [id number] 06:04:20 Test Item Value Reference Range Interpretation Comments SODIUM (BEAKER) 133 meq/L 136-145 L (test code = 381) POTASSIUM (BEAKER) 4.2 meq/L 3.5-5.1 (test code = 379) CHLORIDE (BEAKER) 106 meq/L 98-107 (test code = 382) CO2 (BEAKER) (test 21 meq/L 22-29 L code = 355) BLOOD UREA NITROGEN 13 mg/dL 7-21 (BEAKER) (test code = 354) CREATININE (BEAKER) 1.13 mg/dL 0.57-1.25 (test code = 358) GLUCOSE RANDOM 89 mg/dL 70-105 (BEAKER) (test code = 652) CALCIUM (BEAKER) 8.8 mg/dL 8.4-10.2 (test code = 697) EGFR (BEAKER) (test 85 mL/min/1.73 ESTIMA JOANN GFR IS code = 1092) sq m NOT ACCURATE CREATININE CLEARANCE IN PREDICTING GLOMERULAR FILTRATION RATE . ESTIMATED GFR I S NOT APPLICABLE FOR DIALYSIS PATIEN TS. Director Apparel ID - [id number] (Hemogram only)2021-12-06 05:34:09 Test Item Value Reference Range Interpretation Comments WBC (test code = 6690-2) 6.3 See_Comment [A utomated message] The system [employer] generated this result transmitted ref erence range: 3.5 - 10 .5 K/L. The refe rence range was not u sed to interpret this result as normal/abnor mal. RBC (test code = 789-8) 3.96 See_Comment L [Au tomated message] The system [employer] generated this result transmitted ref erence range: 4.63 - 6 .08 M/L. The refe rence range was not u sed to interpret this result as normal/abnor mal. MCHC (test code = 786-4) 34.3 See_Comment L [A utomated message] The system [employer] generated this result transmitted ref erence range: 32.3 - 3 6.5 GM/DL. The refe rence range was not u sed to interpret this result as normal/abnor mal. Hematocrit (test code = 35.0 % 40.1-51.0 L 4544-3) MCV (test code = 787-2) 88.4 fL 79.0-92.2 MCH (test code = 785-6) 30.3 pg 25.7-32.2 RDW (test code = 788-0) 13.4 % 11.6-14.4 Platelets (test code = 267 See_Comment [Aut omated message] 777-3) The system [employer] generated this result transmitted ref erence range: 150 - 45 0 K/CU MM. The referen ce range was not u sed to interpret this result as normal/abnor mal. MPV (test code = 10.6 fL 9.4-12.4 31927-1) nRBC (test code = 413) 0 See_Comment [Aut omated message] The system [employer] generated this result transmitted ref erence range: 0 - 0 /1 00 WBC. The refere nce range was not u sed to interpret this result as normal/abnor mal. Lab Interpretation (test Abnormal code = 04274-7) [facility] (Hemogram only)2021-12-06 05:34:09 Test Item Value Reference Range Interpretation Comments WBC (test code = 6690-2) 6.3 See_Comment [A utomated message] The system [employer] generated this result transmitted ref erence range: 3.5 - 10 .5 K/L. The refe rence range was not u sed to interpret this result as normal/abnor mal. RBC (test code = 789-8) 3.96 See_Comment L [Au tomated message] The system [employer] generated this result transmitted ref erence range: 4.63 - 6 .08 M/L. The refe rence range was not u sed to interpret this result as normal/abnor mal. MCHC (test code = 786-4) 34.3 See_Comment L [A utomated message] The system [employer] generated this result transmitted ref erence range: 32.3 - 3 6.5 GM/DL. The refe rence range was not u sed to interpret this result as normal/abnor mal. Hematocrit (test code = 35.0 % 40.1-51.0 L 4544-3) MCV (test code = 787-2) 88.4 fL 79.0-92.2 MCH (test code = 785-6) 30.3 pg 25.7-32.2 RDW (test code = 788-0) 13.4 % 11.6-14.4 Platelets (test code = 267 See_Comment [Aut omated message] 777-3) The system [employer] generated this result transmitted ref erence range: 150 - 45 0 K/CU MM. The referen ce range was not u sed to interpret this result as normal/abnor mal. MPV (test code = 10.6 fL 9.4-12.4 30511-3) nRBC (test code = 413) 0 See_Comment [Aut omated message] The system [employer] generated this result transmitted ref erence range: 0 - 0 /1 00 WBC. The refere nce range was not u sed to interpret this result as normal/abnor mal. Lab Interpretation (test Abnormal code = 32357-9) [facility] (HEMOGRAM ONLY)2021-12-06 05:34:09 Test Item Value Reference Range Interpretation Comments WHITE BLOOD CELL COUNT (BEAKER) 6.3 K/ L 3.5-10.5 (test code = 775) RED BLOOD CELL COUNT (BEAKER) 3.96 M/ L 4.63-6.08 L (test code = 761) HEMOGLOBIN (BEAKER) (test code = 12.0 GM/DL 13.7-17.5 L 410) HEMATOCRIT (BEAKER) (test code = 35.0 % 40.1-51.0 L 411) MEAN CORPUSCULAR VOLUME (BEAKER) 88.4 fL 79.0-92.2 (test code = 753) MEAN CORPUSCULAR HEMOGLOBIN 30.3 pg 25.7-32.2 (BEAKER) (test code = 751) MEAN CORPUSCULAR HEMOGLOBIN CONC 34.3 GM/DL 32.3-36.5 (BEAKER) (test code = 752) RED CELL DISTRIBUTION WIDTH 13.4 % 11.6-14.4 (BEAKER) (test code = 412) PLATELET COUNT (BEAKER) (test 267 K/CU MM 150-450 code = 756) MEAN PLATELET VOLUME (BEAKER) 10.6 fL 9.4-12.4 (test code = 754) NUCLEATED RED BLOOD CELLS 0 /100 WBC 0-0 (BEAKER) (test code = 413) POC-Glucose [id number] 17:51:28 Test Item Value Reference Range Interpretation Comments POC-Glucose Meter (test 137 mg/dL 70-110 H : TE STED AT [facility] code = 1538) [address] [facility], 770 30: Director Apparel/Techni rian ID = [id number] for Мария Lara Lab Interpretation (test Abnormal code = 89866-6) [facility] Vista[facility]CT-GLUCOSE [id number] 17:51:28 Test Item Value Reference Range Interpretation Comments POC-GLUCOSE METER 137 mg/dL 70-110 H : TESTED A T [facility] 6720 (BEAKER) (test code = [facility], 1538) [address]: Director Apparel/Techni rian ID = [id number] for Мария Barroso SARS-CoV2/RT-PCR (Asymptomatic ONLY)2021-12-05 17:31:06 Test Item Value Reference Range Interpretation Comments SARS-COV2/RT-PCR Negative Not Detected, (test code = Negative, See 66084-9) external report for linked test SARS-COV-2 [facility] TERI PERFORMING LAB (test code = 08495-9) SHANA (test code = Negative result for this SHANA) test determines that SARS-CoV-2 RNA was not present in the specimen above the Limit of Detection (LOD). However, Negative results do not preclude SARS-CoV-2 infection and should not be used as the sole basis for treatment or patient management decisions. Negative results must be combined with clinical observations, patient history, and epidemiological information. A false negative result may occur if a specimen is improperly collected, transported or handled. A false negative result should be considered if patient's recent exposures or clinical presentation indicate that COVID-19 (SARS-CoV-2) is likely and diagnostic tests for other causes of illness are negative. Re-testing should be considered in cases of suspected false negatives. The limit of detection for this assay is 800 copies/mL. This SARS CoV-2 test is a real-time RT-PCR test intended for the qualitative detection of nucleic acid from SARS-CoV-2 in a nasopharyngeal swab specimen collected from individuals suspected of COVID-19 by their healthcare provider. This test has not been Food and Drug Administration (FDA) cleared or approved. This is a modified version of an approved Emergency Use Authorization (EUA) and is in the process of review by the FDA. Once authorized by the FDA, the issued EUA will be effective until the declaration that circumstances exist justifying the authorization of the emergency use of in vitro diagnostic tests for detection and/or diagnosis of COVID-19 is terminated under Section 564(b)(2) of the Act or the EUA is revoked under Section 564(g) of the Act. Fact Sheet for Healthcare Providers:https://www.NewsHuntl.Kaboodle/sites/default/f laureano/product/documents/F act_Sheet_HC_Providers_L yfr_WVOM-VrO-8.pdf Fact Sheet for Healthcare Patients:https://www.Joyus del.Kaboodle/sites/default/fi les/product/documents/Fa ct_Sheet_Patients_Lyra_S ARS-CoV-2.pdf Performing Laboratory:[facility] [place] [address] [facility])2021-12-05 17:31:06 Test Item Value Reference Range Interpretation Comments SARS-COV2/RT-PCR (test Negative Not Detected, Negative, code = 7922185) See external report for linked test SARS-COV-[address] [facility] TERI (test code = 6736979) Negative result for this test determines that SARS-CoV-2 RNA was not present in the specimen above the Limit of Detection (LOD). However, Negative results do not preclude SARS-CoV-2 infection and should not be used as the sole basis for treatment or patient management decisions. Negative results must be combined with clinical observations, patient history, and epidemiological information. A false negative result may occur if a specimen is improperly collected, transported or handled. A false negative result should be considered if patient's recent exposures or clinical presentation indicate that COVID-19 (SARS-CoV-2) is likely and diagnostic tests for other causes of illness are negative. Re-testing should be considered in cases of suspected false negatives.The limit of detection for this assay is 800 copies/mL.This SARS CoV-2 test is a real-time RT-PCR test intended for the qualitative detection of nucleic acid from SARS-CoV-2 in a nasopharyngeal swab specimen collected from individuals suspected of COVID-19 by their healthcare provider.This test has not been Food and Drug Administration (FDA) cleared or approved. This is a modified version of an approved Emergency Use Authorization (EUA) and is in the process of review by the FDA. Once authorized by the FDA, the issued EUA will be effective until the declaration that circumstances exist justifying the authorization of the emergency use ofin vitro diagnostic tests for detection and/or diagnosis of COVID-19 is terminated under Section 564(b)(2) of the Act or the EUA is revoked under Section 564(g) of the Act.Fact Sheet for Healthcare Prov iders:https://www.OrganizedWisdom.com/sites/default/files/product/documents/Fact_Sheet_HC _Xicdjgqqv_Jpid_OCPS-VfP-5.pdfFact Sheet for Healthcare Patients:https://www.OrganizedWisdom.com/sites/default/files/product/docume nts/Qvfs_Lmbri_Jntylcuf_Gzwx_ASUV-HqB-4.pdfPerforming Laboratory:[facility], [place] [address]QT, [id number] 10:17:00Unlisted Reason for Exam - Click Yes and Enter Reason Below->NoIs this for enterography?->NoWill this procedure require oral contrast?->No [facility] 1975 Sex: MFINAL REPORT CT abdomen and pelvis with contrast History: Acute abdominal pain Comparison: 11/25/2021 Technique: serial axial imaging was performed following up to 100cc of non ioniciodinated intravenous contrast as per departmental protocol. Multiplanar images are reconstructed and reviewed when indicated. This CT examination is performed using one or more of the following dose reduction techniques: Automated exposure control, adjustment of the mA and /or kV according to patientsize, and/or use of iterative reconstruction technique. Findings:Fatty replacement of the pancreas, suggesting underlying cystic fibrosis. No pancreatic ductal dilation or mass. Spleen appears normal in size, without focal abnormality. Unremarkable appearance of liver and gallbladder. Bilateral nonobstructing nephrolithiasis. Otherwise, unremarkable appearance of the kidneys, ureters, and bladder. . Moderate diffuse large bowel dilation, with significant colonic stool. The small bowel is also moderately dilated, measuring up to 6.8 cm in caliber. No free fluid or lymphadenopathy. No abdominal aortic aneurysm. No aggressive osseous lesion. Impression:Moderate diffuse small and large bowel dilation,without transition point, likely related to underlying motility disorder or ileus. The findings are similar in appearance to 11/25/2021. Significant retained stool is seen throughout the colon. Signed: Bennett Tran MDRepst. [facility] Verified Date/Time: 12/05/2021 10:17:33 Reading Location: [facility] C0[facility] OrthoConsult Reading Room Comprehensive metabolic [id number] 08:12:08 Test Item Value Reference Range Interpretation Comments Protein, Total (test 7.8 See_Comment [Autom ated code = 2885-2) message] The system which generated this result transmit joann reference range : 6.0 - 8.3 gm/dL . The reference range was not u sed to interpret th is result as normal/abnormal . Albumin (test code = 4.2 g/dL 3.5-5.0 63536-2) Alkaline Phosphatase 94 U/L 40-150 (test code = 6768-6) Total Bilirubin (test 1.0 mg/dL 0.2-1.2 code = 1975-2) Sodium (test code = 133 meq/L 136-145 L 2951-2) Potassium (test code 4.0 meq/L 3.5-5.1 = 2823-3) Chloride (test code = 108 meq/L 98-107 H 2075-0) CO2 (test code = 19 meq/L 22-29 L 2028-9) BUN (test code = 22 mg/dL 7-21 H 3094-0) Creatinine (test code 1.20 mg/dL 0.57-1.25 = 2160-0) Glucose (test code = 127 mg/dL 70-105 H 2345-7) Calcium (test code = 9.4 mg/dL 8.4-10.2 25540-7) AST (test code = 15 U/L 5-34 1920-8) ALT (test code = 14 U/L 6-55 1742-6) EGFR (test code = 79 mL/min/1.73 [place] [address]-4) NOT ACCURATE CREATININE CLEARANCE IN PREDICTING GLOMERULAR FILTRATION RATE . ESTIMATED GFR I S NOT APPLICABLE FOR DIALYSIS PATIEN TS. SHANA (test code = SHANA) Director Apparel ID - NEIL M Lab Interpretation Abnormal (test code = 34883-1) [facility]22[facility] 08:12:08 Test Item Value Reference Range Interpretation Comments Lipase (test code = 4 U/L 8-78 L 3040-3) SHANA (test code = SHANA) Director Apparel ID - NEIL M Lab Interpretation (test Abnormal code = 27603-9) [facility] VistaCOMPREHENSIVE METABOLIC [id number] 08:12:08 Test Item Value Reference Range Interpretation Comments TOTAL PROTEIN 7.8 gm/dL 6.0-8.3 (BEAKER) (test code = 770) ALBUMIN (BEAKER) 4.2 g/dL 3.5-5.0 (test code = 1145) ALKALINE PHOSPHATASE 94 U/L 40-150 (BEAKER) (test code = 346) BILIRUBIN TOTAL 1.0 mg/dL 0.2-1.2 (BEAKER) (test code = 377) SODIUM (BEAKER) (test 133 meq/L 136-145 L code = 381) POTASSIUM (BEAKER) 4.0 meq/L 3.5-5.1 (test code = 379) CHLORIDE (BEAKER) 108 meq/L 98-107 H (test code = 382) CO2 (BEAKER) (test 19 meq/L 22-29 L code = 355) BLOOD UREA NITROGEN 22 mg/dL 7-21 H (BEAKER) (test code = 354) CREATININE (BEAKER) 1.20 mg/dL 0.57-1.25 (test code = 358) GLUCOSE RANDOM 127 mg/dL 70-105 H (BEAKER) (test code = 652) CALCIUM (BEAKER) 9.4 mg/dL 8.4-10.2 (test code = 697) AST (SGOT) (BEAKER) 15 U/L 5-34 (test code = 353) ALT (SGPT) (BEAKER) 14 U/L 6-55 (test code = 347) EGFR (BEAKER) (test 79 mL/min/1.73 ESTIMA JOANN GFR IS code = 1092) sq m NOT ACCURATE CREATININE CLEARANCE IN PREDICTING GLOMERULAR FILTRATION RATE . ESTIMATED GFR I S NOT APPLICABLE FOR DIALYSIS PATIEN TS. Director Apparel ID - NEIL [id number] 08:12:08 Test Item Value Reference Range Interpretation Comments LIPASE (BEAKER) (test code = 749) 4 U/L 8-78 L Director Apparel ID - NEIL MCBC with platelet count + automated [id number] 07:54:26 Test Item Value Reference Range Interpretation Comments WBC (test code = 6690-2) 7.2 See_Comment [A utomated message] The system [employer] generated this result transmitted ref erence range: 3.5 - 10 .5 K/L. The refe rence range was not u sed to interpret this result as normal/abnor mal. RBC (test code = 789-8) 4.53 See_Comment L [Au tomated message] The system [employer] generated this result transmitted ref erence range: 4.63 - 6 .08 M/L. The refe rence range was not u sed to interpret this result as normal/abnor mal. MCHC (test code = 786-4) 32.0 See_Comment L [A utomated message] The system [employer] generated this result transmitted ref erence range: 32.3 - 3 6.5 GM/DL. The refe rence range was not u sed to interpret this result as normal/abnor mal. Hematocrit (test code = 41.6 % 40.1-51.0 4544-3) MCV (test code = 787-2) 91.8 fL 79.0-92.2 MCH (test code = 785-6) 29.4 pg 25.7-32.2 RDW (test code = 788-0) 13.4 % 11.6-14.4 Platelets (test code = 301 See_Comment [Aut omated message] 777-3) The system [employer] generated this result transmitted ref erence range: 150 - 45 0 K/CU MM. The referen ce range was not u sed to interpret this result as normal/abnor mal. MPV (test code = 10.4 fL 9.4-12.4 80904-1) nRBC (test code = 413) 0 See_Comment [Aut omated message] The system [employer] generated this result transmitted ref erence range: 0 - 0 /1 00 WBC. The refere nce range was not u sed to interpret this result as normal/abnor mal. % Neutros (test code = 63 % 429) % Lymphs (test code = 23 % 430) % Monos (test code = 12 % 431) % Eos (test code = 432) 2 % % Baso (test code = 437) 1 % # Neutros (test code = 4.55 See_Comment [Aut omated message] 670) The system [employer] generated this result transmitted ref erence range: 1.78 - 5 .38 K/L. The refe rence range was not u sed to interpret this result as normal/abnor mal. # Lymphs (test code = 1.62 See_Comment [Auto mated message] 414) The system [employer] generated this result transmitted ref erence range: 1.32 - 3 .57 K/L. The refe rence range was not u sed to interpret this result as normal/abnor mal. # Monos (test code = 0.83 See_Comment H [Autom ated message] 415) The system [employer] generated this result transmitted ref erence range: 0.30 - 0 .82 K/L. The refe rence range was not u sed to interpret this result as normal/abnor mal. # Eos (test code = 416) 0.14 See_Comment [Au tomated message] The system [employer] generated this result transmitted ref erence range: 0.04 - 0 .54 K/L. The refe rence range was not u sed to interpret this result as normal/abnor mal. # Baso (test code = 417) 0.05 See_Comment [A utomated message] The system [employer] generated this result transmitted ref erence range: 0.01 - 0 .08 K/L. The refe rence range was not u sed to interpret this result as normal/abnor mal. Immature 0 % 0-1 Granulocytes-Relative (test code = 2801) Lab Interpretation (test Abnormal code = 21152-1) [facility] W/PLT COUNT & AUTO [id number] 07:54:26 Test Item Value Reference Range Interpretation Comments WHITE BLOOD CELL COUNT (BEAKER) 7.2 K/ L 3.5-10.5 (test code = 775) RED BLOOD CELL COUNT (BEAKER) 4.53 M/ L 4.63-6.08 L (test code = 761) HEMOGLOBIN (BEAKER) (test code = 13.3 GM/DL 13.7-17.5 L 410) HEMATOCRIT (BEAKER) (test code = 41.6 % 40.1-51.0 411) MEAN CORPUSCULAR VOLUME (BEAKER) 91.8 fL 79.0-92.2 (test code = 753) MEAN CORPUSCULAR HEMOGLOBIN 29.4 pg 25.7-32.2 (BEAKER) (test code = 751) MEAN CORPUSCULAR HEMOGLOBIN CONC 32.0 GM/DL 32.3-36.5 L (BEAKER) (test code = 752) RED CELL DISTRIBUTION WIDTH 13.4 % 11.6-14.4 (BEAKER) (test code = 412) PLATELET COUNT (BEAKER) (test 301 K/CU MM 150-450 code = 756) MEAN PLATELET VOLUME (BEAKER) 10.4 fL 9.4-12.4 (test code = 754) NUCLEATED RED BLOOD CELLS 0 /100 WBC 0-0 (BEAKER) (test code = 413) NEUTROPHILS RELATIVE PERCENT 63 % (BEAKER) (test code = 429) LYMPHOCYTES RELATIVE PERCENT 23 % (BEAKER) (test code = 430) MONOCYTES RELATIVE PERCENT 12 % (BEAKER) (test code = 431) EOSINOPHILS RELATIVE PERCENT 2 % (BEAKER) (test code = 432) BASOPHILS RELATIVE PERCENT 1 % (BEAKER) (test code = 437) NEUTROPHILS ABSOLUTE COUNT 4.55 K/ L 1.78-5.38 (BEAKER) (test code = 670) LYMPHOCYTES ABSOLUTE COUNT 1.62 K/ L 1.32-3.57 (BEAKER) (test code = 414) MONOCYTES ABSOLUTE COUNT (BEAKER) 0.83 K/ L 0.30-0.82 H (test code = 415) EOSINOPHILS ABSOLUTE COUNT 0.14 K/ L 0.04-0.54 (BEAKER) (test code = 416) BASOPHILS ABSOLUTE COUNT (BEAKER) 0.05 K/ L 0.01-0.08 (test code = 417) IMMATURE GRANULOCYTES-RELATIVE 0 % 0-1 PERCENT (BEAKER) (test code = 2801) RAD, ABDOMEN/KUB, 1 VIEW [id number] 14:09:00Reason for exam:->assess for improvement in bowel distension and stool burden [facility] : 1975 Sex: MFINAL REPORT Exam: RAD, ABDOMEN/KUB, 1 VIEW APDate: 11/30/2021 2:07 PM Indication:assess for improvement in bowel distension and stool burden COMPARISON: 11/13/2021 DISCUSSION/IMPRESSION: The lower thorax is within normal limits. Nonspecific bowel gas pattern. Prominent gas-filled loops of small and large bowel seen throughout the abdomen. Concerning for ileus. No significant colonicfecal burden. No evidence of free air within the limitations of this study. Signed: Candelario Sosaeport Verified Date/Time: 11/30/2021 14:09:22 Reading Location: [facility] Radiology Reading Room [facility] MET[facility] [id number] 09:26:15 Test Item Value Reference Range Interpretation Comments SODIUM (BEAKER) 134 meq/L 136-145 L (test code = 381) POTASSIUM (BEAKER) 4.4 meq/L 3.5-5.1 (test code = 379) CHLORIDE (BEAKER) 103 meq/L 98-107 (test code = 382) CO2 (BEAKER) (test 27 meq/L 22-29 code = 355) BLOOD UREA NITROGEN 2 mg/dL 7-21 L (BEAKER) (test code = 354) CREATININE (BEAKER) 1.06 mg/dL 0.57-1.25 (test code = 358) GLUCOSE RANDOM 103 mg/dL 70-105 (BEAKER) (test code = 652) CALCIUM (BEAKER) 9.0 mg/dL 8.4-10.2 (test code = 697) EGFR (BEAKER) (test 91 mL/min/1.73 ESTIMA JOANN GFR IS code = 1092) sq m NOT ACCURATE CREATININE CLEARANCE IN PREDICTING GLOMERULAR FILTRATION RATE . ESTIMATED GFR I S NOT APPLICABLE FOR DIALYSIS PATIEN TS. Director Apparel ID - [facility] MET[facility]IC [id number] 06:08:04 Test Item Value Reference Range Interpretation Comments SODIUM (BEAKER) 136 meq/L 136-145 (test code = 381) POTASSIUM (BEAKER) 3.8 meq/L 3.5-5.1 (test code = 379) CHLORIDE (BEAKER) 109 meq/L 98-107 H (test code = 382) CO2 (BEAKER) (test 25 meq/L 22-29 code = 355) BLOOD UREA NITROGEN 12 mg/dL 7-21 (BEAKER) (test code = 354) CREATININE (BEAKER) 0.86 mg/dL 0.57-1.25 (test code = 358) GLUCOSE RANDOM 107 mg/dL 70-105 H (BEAKER) (test code = 652) CALCIUM (BEAKER) 8.4 mg/dL 8.4-10.2 (test code = 697) EGFR (BEAKER) (test 116 mL/min/1.73 ESTIM ATED GFR IS code = 1092) sq m NOT ACCURATE CREATININE CLEARANCE IN PREDICTING GLOMERULAR FILTRATION RATE . ESTIMATED GFR I S NOT APPLICABLE FOR DIALYSIS PATIEN TS. Director Apparel ID - BSCBC W/PLT COUNT & AUTO [id number] 05:40:30 Test Item Value Reference Range Interpretation Comments WHITE BLOOD CELL COUNT (BEAKER) 5.0 K/ L 3.5-10.5 (test code = 775) RED BLOOD CELL COUNT (BEAKER) 3.52 M/ L 4.63-6.08 L (test code = 761) HEMOGLOBIN (BEAKER) (test code = 10.8 GM/DL 13.7-17.5 L 410) HEMATOCRIT (BEAKER) (test code = 32.4 % 40.1-51.0 L 411) MEAN CORPUSCULAR VOLUME (BEAKER) 92.0 fL 79.0-92.2 (test code = 753) MEAN CORPUSCULAR HEMOGLOBIN 30.7 pg 25.7-32.2 (BEAKER) (test code = 751) MEAN CORPUSCULAR HEMOGLOBIN CONC 33.3 GM/DL 32.3-36.5 (BEAKER) (test code = 752) RED CELL DISTRIBUTION WIDTH 14.2 % 11.6-14.4 (BEAKER) (test code = 412) PLATELET COUNT (BEAKER) (test 247 K/CU MM 150-450 code = 756) MEAN PLATELET VOLUME (BEAKER) 10.6 fL 9.4-12.4 (test code = 754) NUCLEATED RED BLOOD CELLS 0 /100 WBC 0-0 (BEAKER) (test code = 413) NEUTROPHILS RELATIVE PERCENT 50 % (BEAKER) (test code = 429) LYMPHOCYTES RELATIVE PERCENT 35 % (BEAKER) (test code = 430) MONOCYTES RELATIVE PERCENT 10 % (BEAKER) (test code = 431) EOSINOPHILS RELATIVE PERCENT 4 % (BEAKER) (test code = 432) BASOPHILS RELATIVE PERCENT 0 % (BEAKER) (test code = 437) NEUTROPHILS ABSOLUTE COUNT 2.51 K/ L 1.78-5.38 (BEAKER) (test code = 670) LYMPHOCYTES ABSOLUTE COUNT 1.75 K/ L 1.32-3.57 (BEAKER) (test code = 414) MONOCYTES ABSOLUTE COUNT (BEAKER) 0.50 K/ L 0.30-0.82 (test code = 415) EOSINOPHILS ABSOLUTE COUNT 0.22 K/ L 0.04-0.54 (BEAKER) (test code = 416) BASOPHILS ABSOLUTE COUNT (BEAKER) 0.02 K/ L 0.01-0.08 (test code = 417) IMMATURE GRANULOCYTES-RELATIVE 0 % 0-1 PERCENT (BEAKER) (test code = 2801) SARS-COV2/RT-PCR ([facility])2021-11-25 10:17:30 Test Item Value Reference Range Interpretation Comments SARS-COV2/RT-PCR (test Negative Not Detected, Negative, code = 1372198) See external report for linked test SARS-COV-2 PERFORMING LAB [facility] (test code = 4746862) Negative result for this test determines that SARS-CoV-2 RNA was not present in the specimen above the Limit of Detection (LOD). However, Negative results do not preclude SARS-CoV-2 infection and should not be used as the sole basis for treatment or patient management decisions. Negative results must be combined with clinical observations, patient history, and epidemiological information. A false negative result may occur if a specimen is improperly collected, transported or handled. A false negative result should be considered if patient's recent exposures or clinical presentation indicate that COVID-19 (SARS-CoV-2) is likely and diagnostic tests for other causes of illness are negative. Re-testing should be considered in cases of suspected false negatives.The limit of detection for this assay is 800 copies/mL.This SARS CoV-2 test is a real-time RT-PCR test intended for the qualitative detection of nucleic acid from SARS-CoV-2 in a nasopharyngeal swab specimen collected from individuals suspected of COVID-19 by their healthcare provider.This test has not been Food and Drug Administration (FDA) cleared or approved. This is a modified version of an approved Emergency Use Authorization (EUA) and is in the process of review by the FDA. Once authorized by the FDA, the issued EUA will be effective until the declaration that circumstances exist justifying the authorization of the emergency use ofin vitro diagnostic tests for detection and/or diagnosis of COVID-19 is terminated under Section 564(b)(2) of the Act or the EUA is revoked under Section 564(g) of the Act.Fact Sheet for Healthcare Prov iders:https://www.Talend/sites/default/files/product/documents/Fact_Sheet_HC _Oilwzhrms_Xlqi_MQHS-TlD-7.pdfFact Sheet for Healthcare Patients:https://www.Talend/sites/default/files/product/docume nts/Ueyq_Hugnu_Fqghkaqq_Fcst_HSUU-XbU-9.pdfPerforming Laboratory:[facility], [place] [address]IN, [id number] 03:54:00Unlisted Reason for Exam - Click Yes and Enter Reason Below->NoIs this for enterography?->NoWill this procedure require oral contrast?->No [facility] : 1975 Sex: MFINAL REPORT CLINICAL HISTORY: Abdominal pain, acute, nonlocalized FINDINGS: Multiple axial images of the abdomen and pelvis were performed after the uncomplicated administration ofIV contrast. Oral contrast was not given. This exam was performed according to our departmental dose-optimization program, which includes automated exposure control, adjustment of the mA and/or kV accor ding to patient size and/or use of the iterative reconstruction technique. Comparison:11/14/2021 Lowerchest: Clear lungs. No pleural effusion or pneumothorax. Visualized cardiac contours normal. Liver: No significant findings. Gallbladder and biliary tree: No significant findings. Spleen: No significant findings. Adrenal Glands: No significant findings. Kidneys and ureters: Bilateral nonobstructing stones in the inferior kidneys, measuring up to 4 mm. No ureteral stone or CT evidence of obstructive uropathy. Stomach and Duodenum: No significant findings. Pancreas: Partial fatty involution of the pancreas. Bowel: There are several dilated, fluid-filled small bowel loops in the midabdomen. There is associated mucosal thickening and prominent enhancement. No definite transition point is identified. There are some decompressed small bowel loops in the pelvis and right abdomen. Previous partial right hemicolectomy and ileocolostomy. There is a moderate volume of mixed density stool and gas throughoutnormal caliber large intestine. No pneumatosis intestinalis. Bladder: No significant findings. Majorvascular structures: No significant findings. Reproductive organs: No significant findings. Other: No free intraperitoneal air or fluid. Skeleton: No acute bony abnormality. IMPRESSION: Findings suggestive of enteritis or enterocolitis. An early or partial small bowel obstruction is less likely but within the differential diagnosis. Bilateral nonobstructing kidney stones. Signed: Ronen Vizcarra MDRepor t Verified Date/Time: 11/25/2021 03:54:25 [id number] 02:50:36 Test Item Value Reference Range Interpretation Comments LIPASE (BEAKER) (test code = 749) < U/L 8-78 L Director Apparel ID - BSOperator ID - NEIL MHigh Sens Trop I ([facility]/Luisa Only) 2021-11-25 01:59:11 Test Item Value Reference Range Interpretation Comments Troponin I HS (test <4 See_Comment [Automa joann code = 81894-1) message] The system which generated this result transmitted reference range : <=35 pg/ml. The reference range was not used to interpret this result as normal/abnormal . SHANA (test code = Director Apparel ID - SHANA) BSThe POCKET SETTER LOCKSTITCH STAT High Sensitivity Troponin-I results should be used in conjunction with other diagnostic information such as ECG, clinical observations and information, and patient symptoms to aid in the diagnosis of ID. Lab Interpretation Normal (test code = 55210-2) [facility] ([facility]/Luisa Only)2021-11-25 01:59:11 Test Item Value Reference Range Interpretation Comments Troponin I HS (test <4 See_Comment [Automa joann code = 68626-8) message] The system which generated this result transmitted reference range : <=35 pg/ml. The reference range was not used to interpret this result as normal/abnormal . SHANA (test code = Director Apparel ID - SHANA) BSThe POCKET SETTER LOCKSTITCH STAT High Sensitivity Troponin-I results should be used in conjunction with other diagnostic information such as ECG, clinical observations and information, and patient symptoms to aid in the diagnosis of ID. Lab Interpretation Normal (test code = 50094-1) [facility]isa [facility]2021-11-25 01:59:11 Test Item Value Reference Range Interpretation Comments Troponin I HS (test <4 See_Comment [Automa joann code = 01363-3) message] The system which generated this result transmitted reference range : <=35 pg/ml. The reference range was not used to interpret this result as normal/abnormal . SHANA (test code = Director Apparel ID - SHANA) BSThe POCKET SETTER LOCKSTITCH STAT High Sensitivity Troponin-I results should be used in conjunction with other diagnostic information such as ECG, clinical observations and information, and patient symptoms to aid in the diagnosis of ID. Lab Interpretation Normal (test code = 18525-4) [facility] Vista[facility] SENSITIVITY TROPONIN [id number] 01:59:11 Test Item Value Reference Range Interpretation Comments HIGH SENSITIVITY < pg/ml See_Comment [Automated message] TROPONIN I (test code = The system which 3086040) generated this result transmitted ref erence range: <=35. Th e reference range was not used to interpr et this result as normal/abnormal . Director Apparel ID - BSThe POCKET SETTER LOCKSTITCH STAT High Sensitivity Troponin-I results should be used in conjunctionwith other diagnostic information such as ECG, clinical observations and information, and patient symptoms to aid in the diagnosis of ID.[id number] 01:52:12 Test Item Value Reference Range Interpretation Comments Magnesium (test code = 1.7 mg/dL 1.6-2.6 Speci men 68840-2) slightly hemolyzed SHANA (test code = SHANA) Director Apparel ID - BS Lab Interpretation Normal (test code = 54712-8) [facility]2022-02-16 01:52:12 Test Item Value Reference Range Interpretation Comments MAGNESIUM (BEAKER) 1.7 mg/dL 1.6-2.6 Specimen slightly (test code = 627) hemolyzed Director Apparel ID - BSCOMPREHENSIVE METABOLIC [id number] 01:52:12 Test Item Value Reference Range Interpretation Comments TOTAL PROTEIN 8.0 gm/dL 6.0-8.3 Specimen sligh tly (BEAKER) (test code = hemoly zed 770) ALBUMIN (BEAKER) 4.4 g/dL 3.5-5.0 Specimen sl ightly (test code = 1145) hemolyzed ALKALINE PHOSPHATASE 97 U/L 40-150 (BEAKER) (test code = 346) BILIRUBIN TOTAL 0.8 mg/dL 0.2-1.2 Specimen sli ghtly (BEAKER) (test code = hemoly zed 377) SODIUM (BEAKER) (test 138 meq/L 136-145 code = 381) POTASSIUM (BEAKER) 4.3 meq/L 3.5-5.1 Specimen slightly (test code = 379) hemolyzed CHLORIDE (BEAKER) 108 meq/L 98-107 H (test code = 382) CO2 (BEAKER) (test 22 meq/L 22-29 code = 355) BLOOD UREA NITROGEN 17 mg/dL 7-21 (BEAKER) (test code = 354) CREATININE (BEAKER) 1.12 mg/dL 0.57-1.25 Specimen slightly (test code = 358) hemolyzed GLUCOSE RANDOM 125 mg/dL 70-105 H (BEAKER) (test code = 652) CALCIUM (BEAKER) 9.7 mg/dL 8.4-10.2 (test code = 697) AST (SGOT) (BEAKER) 22 U/L 5-34 Specimen slightly (test code = 353) hemolyzed ALT (SGPT) (BEAKER) 23 U/L 6-55 Specimen slightly (test code = 347) hemolyzed EGFR (BEAKER) (test 86 mL/min/1.73 ESTIMA JOANN GFR IS code = 1092) sq m NOT ACCURATE CREATININE CLEARANCE IN PREDICTING GLOMERULAR FILTRATION RATE . ESTIMATED GFR I S NOT APPLICABLE FOR DIALYSIS PATIEN TS. Director Apparel ID - BSCBC W/PLT COUNT & AUTO [id number] 01:21:26 Test Item Value Reference Range Interpretation Comments WHITE BLOOD CELL COUNT (BEAKER) 7.9 K/ L 3.5-10.5 (test code = 775) RED BLOOD CELL COUNT (BEAKER) 4.40 M/ L 4.63-6.08 L (test code = 761) HEMOGLOBIN (BEAKER) (test code = 13.4 GM/DL 13.7-17.5 L 410) HEMATOCRIT (BEAKER) (test code = 40.6 % 40.1-51.0 411) MEAN CORPUSCULAR VOLUME (BEAKER) 92.3 fL 79.0-92.2 H (test code = 753) MEAN CORPUSCULAR HEMOGLOBIN 30.5 pg 25.7-32.2 (BEAKER) (test code = 751) MEAN CORPUSCULAR HEMOGLOBIN CONC 33.0 GM/DL 32.3-36.5 (BEAKER) (test code = 752) RED CELL DISTRIBUTION WIDTH 13.9 % 11.6-14.4 (BEAKER) (test code = 412) PLATELET COUNT (BEAKER) (test 266 K/CU MM 150-450 code = 756) MEAN PLATELET VOLUME (BEAKER) 10.8 fL 9.4-12.4 (test code = 754) NUCLEATED RED BLOOD CELLS 0 /100 WBC 0-0 (BEAKER) (test code = 413) NEUTROPHILS RELATIVE PERCENT 74 % (BEAKER) (test code = 429) LYMPHOCYTES RELATIVE PERCENT 16 % (BEAKER) (test code = 430) MONOCYTES RELATIVE PERCENT 7 % (BEAKER) (test code = 431) EOSINOPHILS RELATIVE PERCENT 2 % (BEAKER) (test code = 432) BASOPHILS RELATIVE PERCENT 0 % (BEAKER) (test code = 437) NEUTROPHILS ABSOLUTE COUNT 5.83 K/ L 1.78-5.38 H (BEAKER) (test code = 670) LYMPHOCYTES ABSOLUTE COUNT 1.30 K/ L 1.32-3.57 L (BEAKER) (test code = 414) MONOCYTES ABSOLUTE COUNT (BEAKER) 0.58 K/ L 0.30-0.82 (test code = 415) EOSINOPHILS ABSOLUTE COUNT 0.15 K/ L 0.04-0.54 (BEAKER) (test code = 416) BASOPHILS ABSOLUTE COUNT (BEAKER) 0.03 K/ L 0.01-0.08 (test code = 417) IMMATURE GRANULOCYTES-RELATIVE 0 % 0-1 PERCENT (BEAKER) (test code = 2801) Urine [id number] 12:15:43 Test Item Value Reference Range Interpretation Comments Result (test code = 6463-4) No [facility] [id number] 12:15:43 Test Item Value Reference Range Interpretation Comments Result (test code = 6463-4) No growth [facility] [id number] 12:15:43 Test Item Value Reference Range Interpretation Comments CULTURE (BEAKER) (test code = 1095) No growth SARS-COV2/RT-PCR ([facility])2021-11-14 08:14:56 Test Item Value Reference Range Interpretation Comments SARS-COV2/RT-PCR (test Negative Not Detected, Negative, code = 6117030) See external report for linked test SARS-COV-2 [facility] (test code = 9760020) Negative result for this test determines that SARS-CoV-2 RNA was not present in the specimen above the Limit of Detection (LOD). However, Negative results do not preclude SARS-CoV-2 infection and should not be used as the sole basis for treatment or patient management decisions. Negative results must be combined with clinical observations, patient history, and epidemiological information. A false negative result may occur if a specimen is improperly collected, transported or handled. A false negative result should be considered if patient's recent exposures or clinical presentation indicate that COVID-19 (SARS-CoV-2) is likely and diagnostic tests for other causes of illness are negative. Re-testing should be considered in cases of suspected false negatives.The limit of detection for this assay is 800 copies/mL.This SARS CoV-2 test is a real-time RT-PCR test intended for the qualitative detection of nucleic acid from SARS-CoV-2 in a nasopharyngeal swab specimen collected from individuals suspected of COVID-19 by their healthcare provider.This test has not been Food and Drug Administration (FDA) cleared or approved. This is a modified version of an approved Emergency Use Authorization (EUA) and is in the process of review by the FDA. Once authorized by the FDA, the issued EUA will be effective until the declaration that circumstances exist justifying the authorization of the emergency use ofin vitro diagnostic tests for detection and/or diagnosis of COVID-19 is terminated under Section 564(b)(2) of the Act or the EUA is revoked under Section 564(g) of the Act.Fact Sheet for Healthcare Prov iders:https://www.[employer]/sites/default/files/product/documents/Fact_Sheet_HC _Zfporvzie_Pyow_PGWB-WbW-1.pdfFact Sheet for Healthcare Patients:https://www.[employer]/sites/default/files/product/docume nts/Jmnp_Pnqog_Kzcefkge_Dcgt_EFVX-JcV-9.pdfPerforming Laboratory:[facility], [place] [address]YG, [id number] 00:42:00Unlisted Reason for Exam - Click Yes and Enter Reason Below->NoIs this for enterography?->NoWill this procedure require oral contrast?->No [facility] RIVERAReyna SALAS : 1975 Sex: MFINAL REPORT CLINICAL HISTORY: Bowel obstruction or high-grade suspected, history of cystic fibrosis FINDINGS: Multiple axial images of the abdomen and pelvis were performed after the uncomplicated administration of IV contrast. Oral contrast was not given. This exam was performed according to our departmental dose-optimization program, which includes automated exposure control, adjustment of the mA and/or kV according to patient size and/or use of the iterative reconstruction technique. Comparison:08/01/2021 Lower chest: Clear lungs. No pleural effusion or pneumothorax. Visualized cardiac contours normal. Liver: No significant findings. Gallbladder and biliary tree: No significant findings. Spleen: No significant findings. Adrenal Glands: No significant findings. Kidneys and ureters: Bilateral nonobstructing stones in the inferior kidneys, measuring up to 4 mm. No ureteral stone or CT evidence of obstructive uropathy. Stomach and Duodenum: No significant findings. Pancreas:Partial fatty involution of the pancreas. Bowel: Previous partial right hemicolectomy and ileocolostomy. There is a significant volume of mixed density stool throughout normal caliber large intestine, along with a significant volume of gas. There are several fluid distended small bowel loops. No bowelobstruction or pneumatosis intestinalis. Bladder: No significant findings. Major vascular structures: No significant findings. Reproductive organs: No significant findings. Other: No free air, fluid oradenopathy Skeleton: No acute bony abnormality. IMPRESSION: Nonspecific findings which could reflectconstipation or a high output state. There is no evidence of bowel obstruction. Bilateral nonobstructing kidney stones. Signed: Ronen Vizcarra [facility] Verified Date/Time: 11/14/2021 00:42:44 COMPREHENSIVE METABOLIC [id number] 23:34:07 Test Item Value Reference Range Interpretation Comments TOTAL PROTEIN 6.2 gm/dL 6.0-8.3 Specimen sligh tly (BEAKER) (test code = hemoly zed 770) ALBUMIN (BEAKER) 3.5 g/dL 3.5-5.0 Specimen sl ightly (test code = 1145) hemolyzed ALKALINE PHOSPHATASE 75 U/L 40-150 (BEAKER) (test code = 346) BILIRUBIN TOTAL 0.8 mg/dL 0.2-1.2 Specimen sli ghtly (BEAKER) (test code = hemoly zed 377) SODIUM (BEAKER) (test 136 meq/L 136-145 code = 381) POTASSIUM (BEAKER) 3.7 meq/L 3.5-5.1 Specimen slightly (test code = 379) hemolyzed CHLORIDE (BEAKER) 110 meq/L 98-107 H (test code = 382) CO2 (BEAKER) (test 22 meq/L 22-29 code = 355) BLOOD UREA NITROGEN 15 mg/dL 7-21 (BEAKER) (test code = 354) CREATININE (BEAKER) 0.95 mg/dL 0.57-1.25 Specimen slightly (test code = 358) hemolyzed GLUCOSE RANDOM 109 mg/dL 70-105 H (BEAKER) (test code = 652) CALCIUM (BEAKER) 9.0 mg/dL 8.4-10.2 (test code = 697) AST (SGOT) (BEAKER) 15 U/L 5-34 Specimen slightly (test code = 353) hemolyzed ALT (SGPT) (BEAKER) 11 U/L 6-55 Specimen slightly (test code = 347) hemolyzed EGFR (BEAKER) (test 103 ESTIMATE D GFR IS code = 1092) mL/min/1.73 sq NOT ACCURA TE m CREATININE CLEARANCE IN PREDICTING GLOMERULAR FILTRATION RATE . ESTIMATED GFR I S NOT APPLICABLE FOR DIALYSIS PATIEN TS. Director Apparel ID - [id number] 23:34:07 Test Item Value Reference Range Interpretation Comments LIPASE (BEAKER) (test code = 749) 5 U/L 8-78 L Director Apparel ID - [id number] 23:34:06 Test Item Value Reference Range Interpretation Comments MAGNESIUM (BEAKER) 1.5 mg/dL 1.6-2.6 L Specimen slightly (test code = 627) hemolyzed Director Apparel ID - DBUrinalysis w/Microscopic + Reflex to [id number] 23:00:38 Test Item Value Reference Range Interpretation Comments Color, UA (test code Yellow = 5778-6) Clarity, UA (test Clear code = 5767-9) Specific [place], UA 1.024 1.001-1.035 (test code = 5811-5) pH, UA (test code = 6.0 5.0-8.0 5803-2) Protein, UA (test Negative Negative code = 01700-2) Glucose, UA (test Negative Negative code = 365) Ketones, UA (test Negative Negative code = 2514-8) Bilirubin, UA (test Negative Negative code = 50015-8) Blood, UA (test code Negative Negative = 66496-7) Nitrite, UA (test Negative Negative code = 5802-4) Leukocytes, UA (test Negative Negative code = 5799-2) Urobilinogen, UA 2.0 mg/dL 0.2-1.0 H (test code = 82043-7) RBC, UA (test code = <1 See_Comment [Autom ated 24259-0) message] The system which generated this result transmitted reference range : /HPF. The reference range was not used to interpret this result as normal/abnormal . WBC, UA (test code = 0 See_Comment [Autom ated 5821-4) message] The system which generated this result transmitted reference range : /HPF. The reference range was not used to interpret this result as normal/abnormal . Bacteria, UA (test None Seen code = 45766-3) Crystals, Urine (test None Seen code = 85611-2) Amorphous Crystals Occasional (test code = 46447-6) Specimen Source (test code = 2795) SHANA (test code = SHANA) Director Apparel ID - [auto]Director Apparel ID - tech Lab Interpretation Abnormal (test code = 83259-6) [facility]/ [facility]FLEX URINE [id number] 23:00:38 Test Item Value Reference Range Interpretation Comments COLOR (BEAKER) (test code = 470) Yellow CLARITY (BEAKER) (test code = 469) Clear SPECIFIC GRAVITY UA (BEAKER) (test 1.024 1.001-1.035 code = 468) PH UA (BEAKER) (test code = 467) 6.0 5.0-8.0 PROTEIN UA (BEAKER) (test code = Negative Negative 464) GLUCOSE UA (BEAKER) (test code = Negative Negative 365) KETONES UA (BEAKER) (test code = Negative Negative 371) BILIRUBIN UA (BEAKER) (test code = Negative Negative 462) BLOOD UA (BEAKER) (test code = Negative Negative 461) NITRITE UA (BEAKER) (test code = Negative Negative 465) LEUKOCYTE ESTERASE UA (BEAKER) Negative Negative (test code = 466) UROBILINOGEN UA (BEAKER) (test 2.0 mg/dL 0.2-1.0 H code = 463) RBC UA (BEAKER) (test code = 519) < /HPF WBC UA (BEAKER) (test code = 520) 0 /HPF BACTERIA (BEAKER) (test code = None Seen 517) CRYSTALS, URINE (BEAKER) (test None Seen code = 1521) AMORPHOUS CRYSTALS (BEAKER) (test Occasional code = 1584) SOURCE(BEAKER) (test code = 2795) Director Apparel ID - [auto]Director Apparel ID - techRAD, CHEST, 1 VIEW, NON [id number] 22:26:00Reason for exam:->ABDOMINAL PAINShould this be performed at the bedside?->[facility] : 1975 Sex: MFINAL REPORT Chest, 1 view. History: Abdominal pain Comparison: Plain radiographthe chest dated 01/06/2021. Findings: The cardiomediastinal silhouette and pulmonary vasculature are within normal limits for a portable exam. The lungs are clear without evidence of consolidation or effusion. The soft tissues and osseous structures are intact. IMPRESSION: No acute cardiopulmonary abnor mality. Signed: Debbie Ding Verified Date/Time: 11/13/2021 22:26:25 RAD, ABDOMEN/KUB, 1 VIEW [id number] 22:25:00Reason for exam:- >ABDOMINAL PAINShould this be performed at the bedside?->Yes [facility] : 1975 Sex: MFINAL REPORT CLINICAL HISTORY: Abdominal pain COMPARISON: 08/05/2021 FINDINGS: 2 supine images of the abdomen are submitted. The abdominal bowel gas pattern is nonspecific. There are some dilated, gas-filled bowel loops overlying the left abdomen. A moderate volume of stool and gas is present elsewhere within the bowel. This could relate to enteritis or ileus, however, an early or partial bowel obstruction is not definitely excluded. Further evaluation with CT of the abdomen andpelvis can be performed, if indicated. A surgical clip overlies the right mid to lower abdomen. There is no acute osseous abnormality. Signed: Ronen Vizcarra MDReport Verified Date/Time: 11/13/2021 22:25:42 CBC W/PLT COUNT & AUTO [id number] 22:21:01 Test Item Value Reference Range Interpretation Comments WHITE BLOOD CELL COUNT (BEAKER) 6.3 K/ L 3.5-10.5 (test code = 775) RED BLOOD CELL COUNT (BEAKER) 3.68 M/ L 4.63-6.08 L (test code = 761) HEMOGLOBIN (BEAKER) (test code = 11.5 GM/DL 13.7-17.5 L 410) HEMATOCRIT (BEAKER) (test code = 34.7 % 40.1-51.0 L 411) MEAN CORPUSCULAR VOLUME (BEAKER) 94.3 fL 79.0-92.2 H (test code = 753) MEAN CORPUSCULAR HEMOGLOBIN 31.3 pg 25.7-32.2 (BEAKER) (test code = 751) MEAN CORPUSCULAR HEMOGLOBIN CONC 33.1 GM/DL 32.3-36.5 (BEAKER) (test code = 752) RED CELL DISTRIBUTION WIDTH 14.3 % 11.6-14.4 (BEAKER) (test code = 412) PLATELET COUNT (BEAKER) (test 253 K/CU MM 150-450 code = 756) MEAN PLATELET VOLUME (BEAKER) 10.7 fL 9.4-12.4 (test code = 754) NUCLEATED RED BLOOD CELLS 0 /100 WBC 0-0 (BEAKER) (test code = 413) NEUTROPHILS RELATIVE PERCENT 53 % (BEAKER) (test code = 429) LYMPHOCYTES RELATIVE PERCENT 30 % (BEAKER) (test code = 430) MONOCYTES RELATIVE PERCENT 12 % (BEAKER) (test code = 431) EOSINOPHILS RELATIVE PERCENT 4 % (BEAKER) (test code = 432) BASOPHILS RELATIVE PERCENT 1 % (BEAKER) (test code = 437) NEUTROPHILS ABSOLUTE COUNT 3.36 K/ L 1.78-5.38 (BEAKER) (test code = 670) LYMPHOCYTES ABSOLUTE COUNT 1.90 K/ L 1.32-3.57 (BEAKER) (test code = 414) MONOCYTES ABSOLUTE COUNT (BEAKER) 0.73 K/ L 0.30-0.82 (test code = 415) EOSINOPHILS ABSOLUTE COUNT 0.26 K/ L 0.04-0.54 (BEAKER) (test code = 416) BASOPHILS ABSOLUTE COUNT (BEAKER) 0.04 K/ L 0.01-0.08 (test code = 417) IMMATURE GRANULOCYTES-RELATIVE 0 % 0-1 PERCENT (BEAKER) (test code = 2801) [id number] 06:27:23 Test Item Value Reference Range Interpretation Comments Phosphorus (test code = 3.2 mg/dL 2.3-4.7 2777-1) SHANA (test code = SHANA) Director Apparel ID - NEIL [facility] Interpretation (test Normal code = 64299-1) [facility]2021-10-28 06:27:23 Test Item Value Reference Range Interpretation Comments PHOSPHORUS (BEAKER) (test code = 3.2 mg/dL 2.3-4.7 604) Director Apparel ID - NEIL MBASIC METABOLIC [id number] 06:27:22 Test Item Value Reference Range Interpretation Comments SODIUM (BEAKER) 139 meq/L 136-145 (test code = 381) POTASSIUM (BEAKER) 3.7 meq/L 3.5-5.1 (test code = 379) CHLORIDE (BEAKER) 105 meq/L 98-107 (test code = 382) CO2 (BEAKER) (test 28 meq/L 22-29 code = 355) BLOOD UREA NITROGEN 5 mg/dL 7-21 L (BEAKER) (test code = 354) CREATININE (BEAKER) 0.94 mg/dL 0.57-1.25 (test code = 358) GLUCOSE RANDOM 87 mg/dL 70-105 (BEAKER) (test code = 652) CALCIUM (BEAKER) 8.6 mg/dL 8.4-10.2 (test code = 697) EGFR (BEAKER) (test 105 mL/min/1.73 ESTIM ATED GFR IS code = 1092) sq m NOT ACCURATE CREATININE CLEARANCE IN PREDICTING GLOMERULAR FILTRATION RATE . ESTIMATED GFR I S NOT APPLICABLE FOR DIALYSIS PATIEN TS. Director Apparel ID - NEIL [id number] 06:27:22 Test Item Value Reference Range Interpretation Comments MAGNESIUM (BEAKER) (test code = 1.7 mg/dL 1.6-2.6 627) Director Apparel ID - NEIL MRAD, ABDOMEN/KUB, 1 VIEW [id number] 12:37:00Reason for exam:->Admitted for DIOSShould this be performed at the bedside?->Yes [facility] : 1975 Sex: MFINAL REPORT RAD, ABDOMEN/KUB, 1 VIEW AP CLINICAL INDICATION: Admitted for LIONEL COMPARISON: 04/14/2021 TECHNIQUE: Single, frontal radiograph of the abdomen. FINDINGS: The bowel gas pattern demonstrates marked gaseous distention of the small bowel, and, to a lesser degree, the large bowel. Obstruction cannot be excluded on current exam. Alternatively, this may represent ileus. Evaluat ion for free air is limited by portable supine technique. Within these limitations, no free air is identified. Signed: Lore Duque MDReport Verified Date/Time: 08/05/2021 12:37:21 Reading Location:[facility] Radiology Reading Room Electronically signed by: LORE DUQUE MD on 2020 12:37 PMBASIC METABOLIC [id number] 12:20:42 Test Item Value Reference Range Interpretation Comments SODIUM (BEAKER) 138 meq/L 136-145 (test code = 381) POTASSIUM (BEAKER) 3.9 meq/L 3.5-5.1 (test code = 379) CHLORIDE (BEAKER) 106 meq/L 98-107 (test code = 382) CO2 (BEAKER) (test 23 meq/L 22-29 code = 355) BLOOD UREA NITROGEN 6 mg/dL 7-21 L (BEAKER) (test code = 354) CREATININE (BEAKER) 0.84 mg/dL 0.57-1.25 (test code = 358) GLUCOSE RANDOM 93 mg/dL 70-105 (BEAKER) (test code = 652) CALCIUM (BEAKER) 8.8 mg/dL 8.4-10.2 (test code = 697) EGFR (BEAKER) (test 120 mL/min/1.73 ESTIM ATED GFR IS code = 1092) sq m NOT ACCURATE CREATININE CLEARANCE IN PREDICTING GLOMERULAR FILTRATION RATE . ESTIMATED GFR I S NOT APPLICABLE FOR DIALYSIS PATIEN TS. Director Apparel ID - NEIL [id number] 08:22:00 Test Item Value Reference Range Interpretation Comments MAGNESIUM (BEAKER) (test code = 1.5 mg/dL 1.6-2.6 L 627) Director Apparel ID - NEIL [id number] 08:22:00 Test Item Value Reference Range Interpretation Comments PHOSPHORUS (BEAKER) (test code = 1.6 mg/dL 2.3-4.7 L 604) Director Apparel HDOA TREJO MBASIC METABOLIC [id number] 11:56:45 Test Item Value Reference Range Interpretation Comments SODIUM (BEAKER) 134 meq/L 136-145 L (test code = 381) POTASSIUM (BEAKER) 3.6 meq/L 3.5-5.1 (test code = 379) CHLORIDE (BEAKER) 103 meq/L 98-107 (test code = 382) CO2 (BEAKER) (test 24 meq/L 22-29 code = 355) BLOOD UREA NITROGEN 3 mg/dL 7-21 L (BEAKER) (test code = 354) CREATININE (BEAKER) 0.87 mg/dL 0.57-1.25 (test code = 358) GLUCOSE RANDOM 89 mg/dL 70-105 (BEAKER) (test code = 652) CALCIUM (BEAKER) 8.5 mg/dL 8.4-10.2 (test code = 697) EGFR (BEAKER) (test 115 mL/min/1.73 ESTIM ATED GFR IS code = 1092) sq m NOT ACCURATE CREATININE CLEARANCE IN PREDICTING GLOMERULAR FILTRATION RATE . ESTIMATED GFR I S NOT APPLICABLE FOR DIALYSIS PATIEN TS. Director Apparel ID Onofre CORNELL [id number] 10:34:21 Test Item Value Reference Range Interpretation Comments PHOSPHORUS (BEAKER) (test code = 2.4 mg/dL 2.3-4.7 604) Director Apparel ID Onofre CORNELL [id number] 10:34:20 Test Item Value Reference Range Interpretation Comments MAGNESIUM (BEAKER) (test code = 1.6 mg/dL 1.6-2.6 627) Director Apparel ID Onofre [id number] 11:42:47 Test Item Value Reference Range Interpretation Comments PHOSPHORUS (BEAKER) 2.8 mg/dL 2.3-4.7 Specimen slightly (test code = 604) hemolyzed Director Apparel ID Onofre CORNELL [id number] 05:42:53 Test Item Value Reference Range Interpretation Comments MAGNESIUM (BEAKER) 1.4 mg/dL 1.6-2.6 L Specimen slightly (test code = 627) hemolyzed Director Apparel ID - ANETA LBASIC METABOLIC [id number] 05:42:53 Test Item Value Reference Range Interpretation Comments SODIUM (BEAKER) 136 meq/L 136-145 (test code = 381) POTASSIUM (BEAKER) 3.7 meq/L 3.5-5.1 Specimen slightly (test code = 379) hemolyzed CHLORIDE (BEAKER) 109 meq/L 98-107 H (test code = 382) CO2 (BEAKER) (test 19 meq/L 22-29 L code = 355) BLOOD UREA NITROGEN 8 mg/dL 7-21 (BEAKER) (test code = 354) CREATININE (BEAKER) 0.86 mg/dL 0.57-1.25 Specimen slightly (test code = 358) hemolyzed GLUCOSE RANDOM 93 mg/dL 70-105 (BEAKER) (test code = 652) CALCIUM (BEAKER) 8.6 mg/dL 8.4-10.2 (test code = 697) EGFR (BEAKER) (test 117 mL/min/1.73 ESTIM ATED GFR IS code = 1092) sq m NOT ACCURATE CREATININE CLEARANCE IN PREDICTING GLOMERULAR FILTRATION RATE . ESTIMATED GFR I S NOT APPLICABLE FOR DIALYSIS PATIEN TS. Director Apparel ID - ANETA LSARS-COV2/RT-PCR ([facility])2021-08-02 00:15:55 Test Item Value Reference Range Interpretation Comments SARS-COV2/RT-PCR Negative Negative The SARS-Co V-2 target (test code = nucleic acids a re not [id number]) detected in thi s specimen. Negative result s do not preclude SARS-C oV-2 infection and s hould not be used as the júnior e basis for patient managem ent decisions. Nega tive results must be combine d with clinical observ ations, patient history , and epidemiological information. A false negativ e result may occur if a spec imen is improperly chuy ected, transported or handled. This SARS CoV-2 test is a rapid, real-time RT-PC R test intended for th e qualitative detection of nu cleic acid from SARS-CoV-2 in a nasopharyngeal swab specimen collected from individuals suspected of CO VID-19 by their healthcar e provider. This test has been authorized by FDA under an EUA for use by authorized laboratories. This test is only authorized for the duration of the declaration that circumstances exist justifying the authorization of emergency use of in vitro diagnostic tests for detection and/or diagnosis of COVID-19 under Section 564(b)(1) of the Federal Food, Drug and Cosmetic Act, 21 U.S.C. 360bbb-3(b)(1), unless the authorization is terminated or revoked sooner. Fact Sheet for Healthcare Providers: https://www.[employer] m/Documents/Xpert%20Xpress%20SARS%20CoV-2/Fact%20Sheets/302-3802%62MKHS-QIY-2%20 HEALTHCARE%20PROVIDERS%20FACT%20SHEET.pdf Fact Sheet for Healthcare Patients: https://www.[employer]/Documents/Xpert%20Xp ress%20SARS%20CoV-2/Fact%20Sheets/302-3801%92KHSR-TGY-0%20PATIENT%20FACT%20SHEET .pdfCT, [id number] 21:01:00Unlisted Reason for Exam - Click Yes and Enter Reason Below->NoWill this procedure require oral contrast?->No [facility] : 1975 Sex: MFINAL REPORT EXAM: CT of the abdomen and pelvis, with contrast CLINICAL HISTORY:Abdominal pain and distention. TECHNIQUE: CT of the abdomen and pelvis was performed with intravenous contrast administration. This exam was performed according to our departmental dose optimization program which includes automated exposure control, adjustment of the mA and/or kV according to patient's size and/or use of iterative reconstructive technique. COMPARISON: CT abdomen and pelvis 04/12/2021. FINDINGS: LOWER CHEST: Mild bibasilar peribronchial thickening, a nonspecific sign of small airways disease. Mild linear atelectasis in the right middle lobe.HEPATOBILIARY: Within normal limits.PANCREAS: Diffuse fatty atrophy.SPLEEN: Within normal limits.ADRENALS: Within normal limits.KIDNEYS/URETERS: Punctate nonobstructing bilateral renal stones. No perinephric stranding or hydroureteronephrosis. URINARY BLADDER: Within normal limits.REPRODUCTIVE ORGANS: Within normal limits. BOWEL/MESENTERY: Status post right hemicolectomy. Stool-filled colon. Diffuse distention of multiple small and large bowel loops without a transition point. No mechanical bowel obstruction. No abnormal bowel wall thickening.PERITONEUM/RETROPERITONEUM: No free air, free fluid or fluid collection. VESSELS: Within normal limits. LYMPH NODES: No abdominal or pelvic lymphadenopathy.SOFT TISSUES: Within normal limits.BONES: Bonydemineralization. No suspicious osseous lesions. 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 No mechanical bowel obstruction.Punctate nonobstructing bilateral renal stones. Diffuse peripancreatic fatty atrophy. Signed: Magno Carvajal [facility] Verified Date/Time: 08/01/2021 21:01:39 REHENSIVE METABOLIC [id number] 20:31:25 Test Item Value Reference Range Interpretation Comments TOTAL PROTEIN 6.8 gm/dL 6.0-8.3 Specimen sligh tly (BEAKER) (test code = hemoly zed 770) ALBUMIN (BEAKER) 3.9 g/dL 3.5-5.0 Specimen sl ightly (test code = 1145) hemolyzed ALKALINE PHOSPHATASE 84 U/L 40-150 (BEAKER) (test code = 346) BILIRUBIN TOTAL 1.1 mg/dL 0.2-1.2 Specimen sli ghtly (BEAKER) (test code = hemoly zed 377) SODIUM (BEAKER) (test 138 meq/L 136-145 code = 381) POTASSIUM (BEAKER) 3.9 meq/L 3.5-5.1 Specimen slightly (test code = 379) hemolyzed CHLORIDE (BEAKER) 110 meq/L 98-107 H (test code = 382) CO2 (BEAKER) (test 18 meq/L 22-29 L code = 355) BLOOD UREA NITROGEN 13 mg/dL 7-21 (BEAKER) (test code = 354) CREATININE (BEAKER) 1.14 mg/dL 0.57-1.25 Specimen slightly (test code = 358) hemolyzed GLUCOSE RANDOM 91 mg/dL 70-105 (BEAKER) (test code = 652) CALCIUM (BEAKER) 9.2 mg/dL 8.4-10.2 (test code = 697) AST (SGOT) (BEAKER) 26 U/L 5-34 Specimen slightly (test code = 353) hemolyzed ALT (SGPT) (BEAKER) 24 U/L 6-55 Specimen slightly (test code = 347) hemolyzed EGFR (BEAKER) (test 84 mL/min/1.73 ESTIMA JOANN GFR IS code = 1092) sq m NOT ACCURATE CREATININE CLEARANCE IN PREDICTING GLOMERULAR FILTRATION RATE . ESTIMATED GFR I S NOT APPLICABLE FOR DIALYSIS PATIEN TS. Director Apparel ID - DBOperator ID - NEIL [id number] 19:49:58 Test Item Value Reference Range Interpretation Comments LIPASE (BEAKER) (test code = 749) 4 U/L 8-78 L Director Apparel ID - DBCBC W/PLT COUNT & AUTO [id number] 19:24:16 Test Item Value Reference Range Interpretation Comments WHITE BLOOD CELL COUNT (BEAKER) 6.7 K/ L 3.5-10.5 (test code = 775) RED BLOOD CELL COUNT (BEAKER) 4.34 M/ L 4.63-6.08 L (test code = 761) HEMOGLOBIN (BEAKER) (test code = 13.1 GM/DL 13.7-17.5 L 410) HEMATOCRIT (BEAKER) (test code = 38.9 % 40.1-51.0 L 411) MEAN CORPUSCULAR VOLUME (BEAKER) 89.6 fL 79.0-92.2 (test code = 753) MEAN CORPUSCULAR HEMOGLOBIN 30.2 pg 25.7-32.2 (BEAKER) (test code = 751) MEAN CORPUSCULAR HEMOGLOBIN CONC 33.7 GM/DL 32.3-36.5 (BEAKER) (test code = 752) RED CELL DISTRIBUTION WIDTH 12.8 % 11.6-14.4 (BEAKER) (test code = 412) PLATELET COUNT (BEAKER) (test 205 K/CU MM 150-450 code = 756) MEAN PLATELET VOLUME (BEAKER) 11.1 fL 9.4-12.4 (test code = 754) NUCLEATED RED BLOOD CELLS 0 /100 WBC 0-0 (BEAKER) (test code = 413) NEUTROPHILS RELATIVE PERCENT 53 % (BEAKER) (test code = 429) LYMPHOCYTES RELATIVE PERCENT 33 % (BEAKER) (test code = 430) MONOCYTES RELATIVE PERCENT 8 % (BEAKER) (test code = 431) EOSINOPHILS RELATIVE PERCENT 5 % (BEAKER) (test code = 432) BASOPHILS RELATIVE PERCENT 1 % (BEAKER) (test code = 437) NEUTROPHILS ABSOLUTE COUNT 3.58 K/ L 1.78-5.38 (BEAKER) (test code = 670) LYMPHOCYTES ABSOLUTE COUNT 2.19 K/ L 1.32-3.57 (BEAKER) (test code = 414) MONOCYTES ABSOLUTE COUNT (BEAKER) 0.54 K/ L 0.30-0.82 (test code = 415) EOSINOPHILS ABSOLUTE COUNT 0.33 K/ L 0.04-0.54 (BEAKER) (test code = 416) BASOPHILS ABSOLUTE COUNT (BEAKER) 0.04 K/ L 0.01-0.08 (test code = 417) IMMATURE GRANULOCYTES-RELATIVE 0 % 0-1 PERCENT (BEAKER) (test code = 2801) RAD, ABDOMEN/KUB, 1 VIEW [id number] 11:19:00Reason for exam:->Abdominal pain distention[facility] : 1975 Sex: MFINAL REPORT RAD, ABDOMEN/KUB, 1 VIEW AP TECHNIQUE: Supine radiograph(s) of the abdomen and pelvis. HISTORY: Abdominal pain distention COMPARISON: Abdominal radiographs 02/24/2021, CT abdomen pelvis 04/12/2021 IMPRESSION: Lines and tubes: None Bowel gas pattern: Dilated loops of smallbowel filled with gas in the midabdomen and left upper abdomen are concerning for small bowel obstruc tion. Bowel anastomotic sutures in the right mid abdomen. The appearance is similar to slightly worse than CT 04/12/2021. Other: No acute osseous abnormality. Signed: Janak Reaganeport Verified Date/Time: 04/15/2021 11:19:14 Reading Location: [facility] [id number] Ortho Consult Reading Room BASIC METABOLIC [id number] 05:54:00 Test Item Value Reference Range Interpretation Comments SODIUM (BEAKER) 140 meq/L 136-145 (test code = 381) POTASSIUM (BEAKER) 3.6 meq/L 3.5-5.1 (test code = 379) CHLORIDE (BEAKER) 108 meq/L 98-107 H (test code = 382) CO2 (BEAKER) (test 23 meq/L 22-29 code = 355) BLOOD UREA NITROGEN 4 mg/dL 7-21 L (BEAKER) (test code = 354) CREATININE (BEAKER) 0.91 mg/dL 0.57-1.25 (test code = 358) GLUCOSE RANDOM 89 mg/dL 70-105 (BEAKER) (test code = 652) CALCIUM (BEAKER) 8.1 mg/dL 8.4-10.2 L (test code = 697) EGFR (BEAKER) (test 109 mL/min/1.73 ESTIM ATED GFR IS code = 1092) sq m NOT ACCURATE CREATININE CLEARANCE IN PREDICTING GLOMERULAR FILTRATION RATE . ESTIMATED GFR I S NOT APPLICABLE FOR DIALYSIS PATIEN TS. Director Apparel ID Onofre OAKES [id number] 05:53:00 Test Item Value Reference Range Interpretation Comments MAGNESIUM (BEAKER) (test code = 1.5 mg/dL 1.6-2.6 L 627) Director Apparel ID - CHAMP [id number] 05:53:00 Test Item Value Reference Range Interpretation Comments PHOSPHORUS (BEAKER) (test code = 2.3 mg/dL 2.3-4.7 604) Director Apparel ID Onofre OAKES WCBC W/PLT COUNT & AUTO [id number] 04:46:00 Test Item Value Reference Range Interpretation Comments WHITE BLOOD CELL COUNT (BEAKER) 4.8 K/ L 3.5-10.5 (test code = 775) RED BLOOD CELL COUNT (BEAKER) 3.58 M/ L 4.63-6.08 L (test code = 761) HEMOGLOBIN (BEAKER) (test code = 11.0 GM/DL 13.7-17.5 L 410) HEMATOCRIT (BEAKER) (test code = 32.9 % 40.1-51.0 L 411) MEAN CORPUSCULAR VOLUME (BEAKER) 91.9 fL 79.0-92.2 (test code = 753) MEAN CORPUSCULAR HEMOGLOBIN 30.7 pg 25.7-32.2 (BEAKER) (test code = 751) MEAN CORPUSCULAR HEMOGLOBIN CONC 33.4 GM/DL 32.3-36.5 (BEAKER) (test code = 752) RED CELL DISTRIBUTION WIDTH 13.6 % 11.6-14.4 (BEAKER) (test code = 412) PLATELET COUNT (BEAKER) (test 176 K/CU MM 150-450 code = 756) MEAN PLATELET VOLUME (BEAKER) 10.5 fL 9.4-12.4 (test code = 754) NUCLEATED RED BLOOD CELLS 0 /100 WBC 0-0 (BEAKER) (test code = 413) NEUTROPHILS RELATIVE PERCENT 51 % (BEAKER) (test code = 429) LYMPHOCYTES RELATIVE PERCENT 36 % (BEAKER) (test code = 430) MONOCYTES RELATIVE PERCENT 9 % (BEAKER) (test code = 431) EOSINOPHILS RELATIVE PERCENT 4 % (BEAKER) (test code = 432) BASOPHILS RELATIVE PERCENT 1 % (BEAKER) (test code = 437) NEUTROPHILS ABSOLUTE COUNT 2.42 K/ L 1.78-5.38 (BEAKER) (test code = 670) LYMPHOCYTES ABSOLUTE COUNT 1.69 K/ L 1.32-3.57 (BEAKER) (test code = 414) MONOCYTES ABSOLUTE COUNT (BEAKER) 0.41 K/ L 0.30-0.82 (test code = 415) EOSINOPHILS ABSOLUTE COUNT 0.19 K/ L 0.04-0.54 (BEAKER) (test code = 416) BASOPHILS ABSOLUTE COUNT (BEAKER) 0.03 K/ L 0.01-0.08 (test code = 417) IMMATURE GRANULOCYTES-RELATIVE 0 % 0-1 PERCENT (BEAKER) (test code = 2801) [id number] 05:08:00 Test Item Value Reference Range Interpretation Comments MAGNESIUM (BEAKER) (test code = 1.5 mg/dL 1.6-2.6 L 627) Director Apparel ID - NEIL [id number] 05:08:00 Test Item Value Reference Range Interpretation Comments PHOSPHORUS (BEAKER) (test code = 2.1 mg/dL 2.3-4.7 L 604) Director Apparel ID - NEIL MSARS-COV2/RT-PCR ([facility])2021-04-13 09:33:00 Test Item Value Reference Range Interpretation Comments SARS-COV2/RT-PCR (test Negative Not Detected, Negative, code = [id number]) See external report for linked test SARS-COV-2 PERFORMING LAB [facility] (test code = 1890443) Negative result for this test determines that SARS-CoV-2 RNA was not present in the specimen above the Limit of Detection (LOD). However, Negative results do not preclude SARS-CoV-2 infection and should not be used as the sole basis for treatment or patient management decisions. Negative results must be combined with clinical observations, patient history, and epidemiological information. A false negative result may occur if a specimen is improperly collected, transported or handled. A false negative result should be considered if patient's recent exposures or clinical presentation indicate that COVID-19 (SARS-CoV-2) is likely and diagnostic tests for other causes of illness are negative. Re-testing should be considered in cases of suspected false negatives.The limit of detection for this assay is 800 copies/mL.This SARS CoV-2 test is a real-time RT-PCR test intended for the qualitative detection of nucleic acid from SARS-CoV-2 in a nasopharyngeal swab specimen collected from individuals suspected of COVID-19 by their healthcare provider.This test has not been Food and Drug Administration (FDA) cleared or approved. This is a modified version of an approved Emergency Use Authorization (EUA) and is in the process of review by the FDA. Once authorized by the FDA, the issued EUA will be effective until the declaration that circumstances exist justifying the authorization of the emergency use of in vitro diagnostic tests for detection and/or diagnosis of COVID-19 is terminated under Section 564(b)(2) of the Act or the EUA is revoked under Section 564(g) of the Act.Fact Sheet for Healthcare Pro viders:https://www.[employer]/sites/default/files/product/documents/Fact_Sheet_H R_Wmhzwuofx_Chqj_SOJK-YzE-5.pdfFact Sheet for Healthcare Patients:https://www.[employer]/sites/default/files/product/docum ents/Idcp_Hlsao_Uomcqwyb_Kqyj_KJQM-WaH-9.pdfPerforming Laboratory:[facility].[place], [place] [address]QP, [id number] 00:22:00Unlisted Reason for Exam - Click Yes and Enter Reason Below->NoWill this procedure require oral contrast?->No [facility] : 1975 Sex: MFINAL REPORT CT, ABDOMEN \\T\\ PELVIS, WITH IV CONTRAST INDICATION: Abdominal distension COMPARISON: None TECHNIQUE:Post contrast abdomen and pelvis CT. Coronal and sagittal reformatted images obtained. DOSE REDUCTION: Dose modulation, iterative reconstruction, and/or weight-based adjustment of the mA/kV was utilized to reduce the radiation dose to as low as reasonably achievable. FINDINGS: Lower thorax: Discoid atelectasis in the left lower lobe. No pleural effusion. The heart is normal in size. No pericardial effusion. Liver: No parenchymal abnormality.Gallbladder and biliary tree: No ductal dilation or stones.Pancreas: Fatty replaced.Spleen: No acute findingsAdrenal Glands: Noacute findings.Kidneys and ureters: Bilateral punctate nonobstructing nephrolithiasis.Bladder and reproductive organs: Unremarkable. Stomach and Duodenum: No significant findings.Small and large intestine: Status post right hemicolectomy. Diffuse dilatation of multiple large and small bowel loops with associated air-fluid levels but no definite transition point not significantly changed in the interval there are few thickened loops of small bowel within the central abdomen, possibly due to underdistention.. Large amount of retained stool in the colon, rectum and the ileocolic anastomosis. No bowel pneumatosis. Appendix: Not identified. Major vascular structures: Normal aortic caliber.Peritoneum and retroperitoneum: No free air or drainable fluid. Few prominent mesenteric lymph nodes are not significant changed in the interval. Skeleton: No acute bony abnormality.Additional findings: None. IMPRESSION:Again seen are multiple moderately distended distal small bowel with associated bowel wall thickening and large stool burden throughout the large bowel. Findings can be seen in the setting of distal intestinal obstruction syndrome in the setting of cystic fibrosis however no transition point is identified to suggest high- grade obstruction. Consider further evaluation with small bowel follow-through fluoroscopic study. Non obstructing bilateral nephrolithiasis. Signed: Debbie Ding [facility] Verified Date/Time: 04/13/2021 00:22:00 URINALYSIS W/ REFLEX URINE [id number] 00:21:00 Test Item Value Reference Range Interpretation Comments COLOR (BEAKER) (test code = 470) Yellow CLARITY (BEAKER) (test code = 469) Clear SPECIFIC GRAVITY UA (BEAKER) (test 1.033 1.001-1.035 code = 468) PH UA (BEAKER) (test code = 467) 6.0 5.0-8.0 PROTEIN UA (BEAKER) (test code = 20 mg/dL Negative A 464) GLUCOSE UA (BEAKER) (test code = Negative Negative 365) KETONES UA (BEAKER) (test code = Negative Negative 371) BILIRUBIN UA (BEAKER) (test code = Negative Negative 462) BLOOD UA (BEAKER) (test code = Negative Negative 461) NITRITE UA (BEAKER) (test code = Negative Negative 465) LEUKOCYTE ESTERASE UA (BEAKER) Small Negative A (test code = 466) UROBILINOGEN UA (BEAKER) (test 0.2 mg/dL 0.2-1.0 code = 463) RBC UA (BEAKER) (test code = 519) 1 /HPF WBC UA (BEAKER) (test code = 520) 3 /HPF BACTERIA (BEAKER) (test code = None Seen 517) CRYSTALS, URINE (BEAKER) (test None Seen code = 1521) CALCIUM OXALATE CRYSTALS (BEAKER) Occasional (test code = 518) SOURCE(BEAKER) (test code = 2795) Director Apparel ID - [auto]Director Apparel ID - techHIGH SENSITIVITY TROPONIN [id number] 22:05:00 Test Item Value Reference Range Interpretation Comments HIGH SENSITIVITY 5 pg/ml See_Comment [Automated message] TROPONIN I (test code = The system which [id number]) generated this result transmitted ref erence range: <=35. Th e reference range was not used to interpr et this result as normal/abnormal . Director Apparel ID - DBThe POCKET SETTER LOCKSTITCH STAT High Sensitivity Troponin-I results should be used in conjunctionwith other diagnostic information such as ECG, clinical observations and information, and patient symptoms to aid in the diagnosis of ID.[id number] 21:59:00 Test Item Value Reference Range Interpretation Comments LIPASE (BEAKER) (test code = 749) < U/L 8-78 L Director Apparel ID - DBCOMPREHENSIVE METABOLIC [id number] 21:57:00 Test Item Value Reference Range Interpretation Comments TOTAL PROTEIN 7.2 gm/dL 6.0-8.3 (BEAKER) (test code = 770) ALBUMIN (BEAKER) 4.1 g/dL 3.5-5.0 (test code = 1145) ALKALINE PHOSPHATASE 80 U/L 40-150 (BEAKER) (test code = 346) BILIRUBIN TOTAL 1.3 mg/dL 0.2-1.2 H (BEAKER) (test code = 377) SODIUM (BEAKER) (test 138 meq/L 136-145 code = 381) POTASSIUM (BEAKER) 4.0 meq/L 3.5-5.1 (test code = 379) CHLORIDE (BEAKER) 106 meq/L 98-107 (test code = 382) CO2 (BEAKER) (test 22 meq/L 22-29 code = 355) BLOOD UREA NITROGEN 16 mg/dL 7-21 (BEAKER) (test code = 354) CREATININE (BEAKER) 1.28 mg/dL 0.57-1.25 H (test code = 358) GLUCOSE RANDOM 101 mg/dL 70-105 (BEAKER) (test code = 652) CALCIUM (BEAKER) 9.6 mg/dL 8.4-10.2 (test code = 697) AST (SGOT) (BEAKER) 25 U/L 5-34 (test code = 353) ALT (SGPT) (BEAKER) 16 U/L 6-55 (test code = 347) EGFR (BEAKER) (test 74 mL/min/1.73 ESTIMA JOANN GFR IS code = 1092) sq m NOT ACCURATE CREATININE CLEARANCE IN PREDICTING GLOMERULAR FILTRATION RATE . ESTIMATED GFR I S NOT APPLICABLE FOR DIALYSIS PATIEN TS. Director Apparel ID - DBLACTIC ACID, [id number] 21:42:00 Test Item Value Reference Range Interpretation Comments LACTATE BLOOD VENOUS (2) (BEAKER) 0.59 mmol/L 0.50-2.20 (test code = 2872) Director Apparel ID - DBBLOOD GAS, [id number] 21:31:00 Test Item Value Reference Range Interpretation Comments PH VENOUS (BEAKER) (test code = 7.37 7.32-7.42 701) PCO2 VENOUS (BEAKER) (test code = 43 mm Hg 41-51 755) PO2 VENOUS (BEAKER) (test code = 49 mm Hg 25-40 H 702) O2 SATURATION VENOUS (BEAKER) 83.0 % 40.0-70.0 H (test code = 703) HCO3 VENOUS (BEAKER) (test code = 24 mmol/L 21-29 705) BASE EXCESS VENOUS (BEAKER) (test -1.2 mmol/L -2.0-3.0 code = 704) PATIENT TEMPERATURE (BEAKER) 37.0 (test code = 1818) FIO2 (BEAKER) (test code = 1819) 21.0 CBC W/PLT COUNT & AUTO [id number] 21:31:00 Test Item Value Reference Range Interpretation Comments WHITE BLOOD CELL COUNT (BEAKER) 7.7 K/ L 3.5-10.5 (test code = 775) RED BLOOD CELL COUNT (BEAKER) 4.23 M/ L 4.63-6.08 L (test code = 761) HEMOGLOBIN (BEAKER) (test code = 13.0 GM/DL 13.7-17.5 L 410) HEMATOCRIT (BEAKER) (test code = 39.3 % 40.1-51.0 L 411) MEAN CORPUSCULAR VOLUME (BEAKER) 92.9 fL 79.0-92.2 H (test code = 753) MEAN CORPUSCULAR HEMOGLOBIN 30.7 pg 25.7-32.2 (BEAKER) (test code = 751) MEAN CORPUSCULAR HEMOGLOBIN CONC 33.1 GM/DL 32.3-36.5 (BEAKER) (test code = 752) RED CELL DISTRIBUTION WIDTH 13.3 % 11.6-14.4 (BEAKER) (test code = 412) PLATELET COUNT (BEAKER) (test 239 K/CU MM 150-450 code = 756) MEAN PLATELET VOLUME (BEAKER) 10.2 fL 9.4-12.4 (test code = 754) NUCLEATED RED BLOOD CELLS 0 /100 WBC 0-0 (BEAKER) (test code = 413) NEUTROPHILS RELATIVE PERCENT 58 % (BEAKER) (test code = 429) LYMPHOCYTES RELATIVE PERCENT 27 % (BEAKER) (test code = 430) MONOCYTES RELATIVE PERCENT 10 % (BEAKER) (test code = 431) EOSINOPHILS RELATIVE PERCENT 4 % (BEAKER) (test code = 432) BASOPHILS RELATIVE PERCENT 1 % (BEAKER) (test code = 437) NEUTROPHILS ABSOLUTE COUNT 4.46 K/ L 1.78-5.38 (BEAKER) (test code = 670) LYMPHOCYTES ABSOLUTE COUNT 2.04 K/ L 1.32-3.57 (BEAKER) (test code = 414) MONOCYTES ABSOLUTE COUNT (BEAKER) 0.78 K/ L 0.30-0.82 (test code = 415) EOSINOPHILS ABSOLUTE COUNT 0.30 K/ L 0.04-0.54 (BEAKER) (test code = 416) BASOPHILS ABSOLUTE COUNT (BEAKER) 0.04 K/ L 0.01-0.08 (test code = 417) IMMATURE GRANULOCYTES-RELATIVE 0 % 0-1 PERCENT (BEAKER) (test code = 2801) CF RESPIRATORY [id number] 12:40:00 Test Item Value Reference Interpretation Comments Range CULTURE (BEAKER) ESCHERICHIA COLI A 2+ Esch erichia (test code = 1095) coli Amikacin (test code = S 1) Ampicillin + S Sulbactam (test code = 6) Aztreonam (test code S = 32) Cefepime (test code = S 51) Cefoxitin (test code S = 68) Ceftazidime (test S code = 27) Ceftriaxone (test S code = 52) Ertapenem (test code S = 38) Gentamicin (test code S = 18) Levofloxacin (test R code = 22) Meropenem (test code S = 34) Nitrofurantoin (test S code = 23) Piperacillin + S Tazobactam (test code = 29) Tetracycline (test S code = 2) Tobramycin (test code S = 25) Trimethoprim + S Sulfamethoxazole (test code = 47) CULTURE (BEAKER) ESCHERICHIA COLI A 2+ Esch erichia (test code = 1095) coli Amikacin (test code = S 1) Ampicillin + S Sulbactam (test code = 6) Aztreonam (test code S = 32) Cefepime (test code = S 51) Cefoxitin (test code S = 68) Ceftazidime (test S code = 27) Ceftriaxone (test S code = 52) Ertapenem (test code S = 38) Gentamicin (test code S = 18) Levofloxacin (test R code = 22) Meropenem (test code S = 34) Nitrofurantoin (test S code = 23) Piperacillin + S Tazobactam (test code = 29) Tetracycline (test S code = 2) Tobramycin (test code S = 25) Trimethoprim + S Sulfamethoxazole (test code = 47) CULTURE (BEAKER) STAPHYLOCOCCUS A 4+ Staphy lococcus (test code = 1095) AUREUS aureus Clindamycin (test S code = 10) Erythromycin (test R code = 4) Linezolid (test code S = 40) Oxacillin (test code S = 14) Rifampin (test code = S 43) Tetracycline (test R code = 2) Trimethoprim + S Sulfamethoxazole (test code = 47) Vancomycin (test code S = 13) CULTURE (BEAKER) PSEUDOMONAS A 2+ Pseudomo kelli (test code = 1095) AERUGINOSA aeruginos a Amikacin (test code = See_Comment S [Auto mated 1) message] The system which generated this result transmit joann reference range : Susceptible 0-1 6 , Resistant <0 or >16 . The reference range was not used to interpret this result as normal/abnormal . Aztreonam (test code See_Comment S [Autom ated = 32) message] The system which generated this result transmit joann reference range : Susceptible 0-8 , Resistant <0 or >8 . The reference range was not u sed to interpret th is result as normal/abnormal . Cefepime (test code = See_Comment S [Auto mated 51) message] The system which generated this result transmit joann reference range : Susceptible 0-8 , Resistant <0 or >8 . The reference range was not u sed to interpret th is result as normal/abnormal . Ceftazidime (test See_Comment S [Automate d code = 27) message] The system which generated this result transmit joann reference range : Susceptible 0-8 , Resistant <0 or >8 . The reference range was not u sed to interpret th is result as normal/abnormal . Ciprofloxacin (test See_Comment S [Automa joann code = 7) message] The system which generated this result transmit joann reference range : Susceptible 0-0 .5 , Resistant <0 or >.5 . The reference range was not used to interpret this result as normal/abnormal . Doripenem (test code See_Comment S [Autom ated = 100) message] The system which generated this result transmit joann reference range : Susceptible 0-2 , Resistant <0 or >2 . The reference range was not u sed to interpret th is result as normal/abnormal . Gentamicin (test code See_Comment S [Auto mated = 18) message] The system which generated this result transmit joann reference range : Susceptible 0-4 , Resistant <0 or >4 . The reference range was not u sed to interpret th is result as normal/abnormal . Imipenem (test code = See_Comment S [Auto mated 19) message] The system which generated this result transmit joann reference range : Susceptible 0-2 , Resistant <0 or >2 . The reference range was not u sed to interpret th is result as normal/abnormal . Levofloxacin (test See_Comment R [Automat ed code = 22) message] The system which generated this result transmit joann reference range : Susceptible 0-1 , Resistant <0 or >1 . The reference range was not u sed to interpret th is result as normal/abnormal . Meropenem (test code See_Comment S [Autom ated = 34) message] The system which generated this result transmit joann reference range : Susceptible 0-2 , Resistant <0 or >2 . The reference range was not u sed to interpret th is result as normal/abnormal . Piperacillin (test See_Comment S [Automat ed code = 24) message] The system which generated this result transmit joann reference range : Susceptible 0-1 6 , Resistant <0 or >16 . The reference range was not used to interpret this result as normal/abnormal . Piperacillin + See_Comment S [Automated Tazobactam (test code messag e] The = 29) system which generated this result transmit joann reference range : Susceptible 0-1 6 , Resistant <0 or >16 . The reference range was not used to interpret this result as normal/abnormal . Tobramycin (test code See_Comment S [Auto mated = 25) message] The system which generated this result transmit joann reference range : Susceptible 0-4 , Resistant <0 or >4 . The reference range was not u sed to interpret th is result as normal/abnormal . 4+ Normal respiratory maria del carmen presentAFB CULTURE + SMEAR (SPUTUM ONLY)2021-02-24 14:27:00 Test Item Value Reference Range Interpretation Comments CULTURE (BEAKER) (test No acid-fast bacilli code = 1095) isolated in 42 days AFB SMEAR (BEAKER) No acid fast bacilli (test code = 994) seen RAD, ABDOMEN/KUB, 1 VIEW [id number] 07:28:00Reason for exam:->constipation [facility] : 1975 Sex: MFINAL REPORT RAD, ABDOMEN/KUB, 1 VIEW AP TECHNIQUE: Supine radiograph(s) of the abdomen and pelvis. HISTORY: constipation COMPARISON: Abdominal radiographs 3 days prior IMPRESSION: Lines and tubes: None Bowel gas pattern: Unchanged nonobstructive bowel gas pattern. Small colonic stool burden. Other: Anastomotic sutures and surgical clip project over the right half of the abdomen Signed: aJnak Reagan Verified Date/Time: 02/24/2021 07:28:09 Reading Location: [facility] Radiology Reading Room RAD, ABDOMEN/KUB, 1 VIEW [id number] 10:44:00Reason for exam:->abdominal pain, [facility]ENTERName: VELIA [facility]IVERA : 1975 Sex: MFINAL REPORT RAD, ABDOMEN/KUB, 1 VIEW AP CLINICAL INDICATION: abdominal pain, COMPARISON: February 19, 2021 TECHNIQUE: Two frontal radiographs of the abdomen. IMPRESSION: The bowel gas pattern is nonspecific, but nonobstructive. A moderate colonic stool burden is present. There is no visible stenosis. No significant calcifications are present. The regional skeleton is intact. Signed: JR Burk Robert MDReport Verified Date/Time: 02/21/2021 10:44:09 Reading Location: [facility] B1 C013V Neuro Reading Room SARS-COV2/RT-PCR ([facility])2021-02-20 12:43:00 Test Item Value Reference Range Interpretation Comments SARS-COV2/RT-PCR (test Negative Not Detected, Negative, code = 3976865) See external report for linked test SARS-COV-[address] [facility] (test code = 9469367) Negative result for this test determines that SARS-CoV-2 RNA was not present in the specimen above the Limit of Detection (LOD). However, Negative results do not preclude SARS-CoV-2 infection and should not be used as the sole basis for treatment or patient management decisions. Negative results must be combined with clinical observations, patient history, and epidemiological information. A false negative result may occur if a specimen is improperly collected, transported or handled. A false negative result should be considered if patient's recent exposures or clinical presentation indicate that COVID-19 (SARS-CoV-2) is likely and diagnostic tests for other causes of illness are negative. Re-testing should be considered in cases of suspected false negatives.The limit of detection for this assay is 800 copies/mL.This SARS CoV-2 test is a real-time RT-PCR test intended for the qualitative detection of nucleic acid from SARS-CoV-2 in a nasopharyngeal swab specimen collected from individuals suspected of COVID-19 by their healthcare provider.This test has not been Food and Drug Administration (FDA) cleared or approved. This is a modified version of an approved Emergency Use Authorization (EUA) and is in the process of review by the FDA. Once authorized by the FDA, the issued EUA will be effective until the declaration that circumstances exist justifying the authorization of the emergency use ofin vitro diagnostic tests for detection and/or diagnosis of COVID-19 is terminated under Section 564(b)(2) of the Act or the EUA is revoked under Section 564(g) of the Act.Fact Sheet for Healthcare Prov iders:https://www.[employer].Kaboodle/sites/default/files/product/documents/Fact_Sheet_HC _Bovqhrula_Xekq_XZAG-ItB-3.pdfFact Sheet for Healthcare Patients:https://www.[employer]end/sites/default/files/product/docume nts/Wjeb_Tkrhg_Xjaozway_Dvjg_JHGK-KbP-6.pdfPerforming Laboratory:[facility], [place] [address]UEALP METABOLIC PANEL 2021-02-20 04:46:00 Test Item Value Reference Range Interpretation Comments SODIUM (BEAKER) 137 meq/L 136-145 (test code = 381) POTASSIUM (BEAKER) 4.0 meq/L 3.5-5.1 Specimen slightly (test code = 379) hemolyzed CHLORIDE (BEAKER) 104 meq/L 98-107 (test code = 382) CO2 (BEAKER) (test 25 meq/L 22-29 code = 355) BLOOD UREA NITROGEN 15 mg/dL 7-21 (BEAKER) (test code = 354) CREATININE (BEAKER) 1.07 mg/dL 0.57-1.25 Specimen slightly (test code = 358) hemolyzed GLUCOSE RANDOM 121 mg/dL 70-105 H (BEAKER) (test code = 652) CALCIUM (BEAKER) 9.0 mg/dL 8.4-10.2 (test code = 697) EGFR (BEAKER) (test 91 mL/min/1.73 ESTIMA JOANN GFR IS code = 1092) sq m NOT ACCURATE CREATININE CLEARANCE IN PREDICTING GLOMERULAR FILTRATION RATE . ESTIMATED GFR I S NOT APPLICABLE FOR DIALYSIS PATIEN TS. Director Apparel ID - EDASICBC W/PLT COUNT & AUTO [id number] 04:23:00 Test Item Value Reference Range Interpretation Comments WHITE BLOOD CELL COUNT (BEAKER) 7.1 K/ L 3.5-10.5 (test code = 775) RED BLOOD CELL COUNT (BEAKER) 4.14 M/ L 4.63-6.08 L (test code = 761) HEMOGLOBIN (BEAKER) (test code = 12.6 GM/DL 13.7-17.5 L 410) HEMATOCRIT (BEAKER) (test code = 38.2 % 40.1-51.0 L 411) MEAN CORPUSCULAR VOLUME (BEAKER) 92.3 fL 79.0-92.2 H (test code = 753) MEAN CORPUSCULAR HEMOGLOBIN 30.4 pg 25.7-32.2 (BEAKER) (test code = 751) MEAN CORPUSCULAR HEMOGLOBIN CONC 33.0 GM/DL 32.3-36.5 (BEAKER) (test code = 752) RED CELL DISTRIBUTION WIDTH 13.2 % 11.6-14.4 (BEAKER) (test code = 412) PLATELET COUNT (BEAKER) (test 213 K/CU MM 150-450 code = 756) MEAN PLATELET VOLUME (BEAKER) 10.9 fL 9.4-12.4 (test code = 754) NUCLEATED RED BLOOD CELLS 0 /100 WBC 0-0 (BEAKER) (test code = 413) NEUTROPHILS RELATIVE PERCENT 54 % (BEAKER) (test code = 429) LYMPHOCYTES RELATIVE PERCENT 33 % (BEAKER) (test code = 430) MONOCYTES RELATIVE PERCENT 10 % (BEAKER) (test code = 431) EOSINOPHILS RELATIVE PERCENT 3 % (BEAKER) (test code = 432) BASOPHILS RELATIVE PERCENT 0 % (BEAKER) (test code = 437) NEUTROPHILS ABSOLUTE COUNT 3.82 K/ L 1.78-5.38 (BEAKER) (test code = 670) LYMPHOCYTES ABSOLUTE COUNT 2.32 K/ L 1.32-3.57 (BEAKER) (test code = 414) MONOCYTES ABSOLUTE COUNT (BEAKER) 0.74 K/ L 0.30-0.82 (test code = 415) EOSINOPHILS ABSOLUTE COUNT 0.18 K/ L 0.04-0.54 (BEAKER) (test code = 416) BASOPHILS ABSOLUTE COUNT (BEAKER) 0.02 K/ L 0.01-0.08 (test code = 417) IMMATURE GRANULOCYTES-RELATIVE 0 % 0-1 PERCENT (BEAKER) (test code = 2801) CT, [id number] 21:22:00Unlisted Reason for Exam - Click Yes and Enter Reason Below->YesUnlisted Reason for Exam->abd pain, bloating, constipation. hx of SBOWill this procedure require oral contrast?->No [facility] 1975 Sex: MFINAL REPORT EXAM: CT of the abdomen and pelvis, with contrast CLINICAL HISTORY:Unlisted reason for exam. Abdominal pain, bloating and constipation. History of SBO. TECHNIQUE: CT of the abdomen and pelvis was performed with intravenous contrast administration. This exam was performed according to our departmental dose optimization program which includes automated exposure control, adjustment of the mA and/or kV according to patient's size and/or use of iterative reconstructive technique. COMPARISON: CT abdomen and pelvis 10/25/2020. FINDINGS: LOWER CHEST: Within normal limits.HEPATOBILIARY: Within normal limits.PANCREAS: Diffuse parenchymal atrophy and fatty replacement.SPLEEN:Within normal limits.ADRENALS: Within normal limits.KIDNEYS/URETERS: Punctate nonobstructing bilateral renal stones. No perinephric stranding or hydroureteronephrosis. URINARY BLADDER: Within normal limits.REPRODUCTIVE ORGANS: Within normal limits. BOWEL/MESENTERY: Status post right hemicolectomy. Diffuse dilatation of multiple large and small bowel loops with associated air-fluid levels but no definite transition point. Large amount of retained stool in the colon, rectum and the ileocolic anastomosis. No bowel pneumatosis.PERITONEUM/RETROPERITONEUM: No free air, free fluid or fluid collection. VESSELS: Within normal limits. LYMPH NODES: No abdominal or pelvic lymphadenopathy.SOFT TISSUES: Within normal limits.BONES: Within normal limits. IMPRESSION: Findings suggesting distal intestinal obstruction syndrome in patient with known history of cystic fibrosis. No mechanical bowel obstruction.Punctate nonobstructing bilateral renal stones.Diffuse pancreatic fatty atrophy. Signed: Magno Carvajal MDReport Verified Date/Time: 02/19/2021 21:22:04 [id number] 18:22:00 Test Item Value Reference Range Interpretation Comments LIPASE (BEAKER) (test code = 749) < U/L 8-78 L Director Apparel ID - DBBASIC METABOLIC [id number] 18:21:00 Test Item Value Reference Range Interpretation Comments SODIUM (BEAKER) 137 meq/L 136-145 (test code = 381) POTASSIUM (BEAKER) 4.4 meq/L 3.5-5.1 Specimen slightly (test code = 379) hemolyzed CHLORIDE (BEAKER) 105 meq/L 98-107 (test code = 382) CO2 (BEAKER) (test 31 meq/L 22-29 H code = 355) BLOOD UREA NITROGEN 16 mg/dL 7-21 (BEAKER) (test code = 354) CREATININE (BEAKER) 1.21 mg/dL 0.57-1.25 Specimen slightly (test code = 358) hemolyzed GLUCOSE RANDOM 173 mg/dL 70-105 H (BEAKER) (test code = 652) CALCIUM (BEAKER) 9.2 mg/dL 8.4-10.2 (test code = 697) EGFR (BEAKER) (test 79 mL/min/1.73 ESTIMA JOANN GFR IS code = 1092) sq m NOT ACCURATE CREATININE CLEARANCE IN PREDICTING GLOMERULAR FILTRATION RATE . ESTIMATED GFR I S NOT APPLICABLE FOR DIALYSIS PATIEN TS. Director Apparel ID - DBHEPATIC FUNCTION [id number] 18:21:00 Test Item Value Reference Range Interpretation Comments TOTAL PROTEIN (BEAKER) 7.2 gm/dL 6.0-8.3 Speci men slightly (test code = 770) hemolyzed ALBUMIN (BEAKER) (test 4.1 g/dL 3.5-5.0 Speci men slightly code = 1145) hemolyzed BILIRUBIN TOTAL 0.8 mg/dL 0.2-1.2 Specimen sli ghtly (BEAKER) (test code = hemoly zed 377) BILIRUBIN DIRECT 0.3 mg/dL 0.1-0.5 Specimen sl ightly (BEAKER) (test code = hemoly zed 706) ALKALINE PHOSPHATASE 86 U/L 40-150 (BEAKER) (test code = 346) AST (SGOT) (BEAKER) 26 U/L 5-34 Specimen slightly (test code = 353) hemolyzed ALT (SGPT) (BEAKER) 25 U/L 6-55 Specimen slightly (test code = 347) hemolyzed Director Apparel ID - DBLACTIC ACID, [id number] 18:05:00 Test Item Value Reference Range Interpretation Comments LACTATE BLOOD VENOUS 1.04 mmol/L 0.50-2.20 Specime n slightly (2) (BEAKER) (test hemolyzed code = 2872) Director Apparel ID - DBCBC W/PLT COUNT & AUTO [id number] 17:58:00 Test Item Value Reference Range Interpretation Comments WHITE BLOOD CELL COUNT (BEAKER) 8.0 K/ L 3.5-10.5 (test code = 775) RED BLOOD CELL COUNT (BEAKER) 4.25 M/ L 4.63-6.08 L (test code = 761) HEMOGLOBIN (BEAKER) (test code = 12.8 GM/DL 13.7-17.5 L 410) HEMATOCRIT (BEAKER) (test code = 39.4 % 40.1-51.0 L 411) MEAN CORPUSCULAR VOLUME (BEAKER) 92.7 fL 79.0-92.2 H (test code = 753) MEAN CORPUSCULAR HEMOGLOBIN 30.1 pg 25.7-32.2 (BEAKER) (test code = 751) MEAN CORPUSCULAR HEMOGLOBIN CONC 32.5 GM/DL 32.3-36.5 (BEAKER) (test code = 752) RED CELL DISTRIBUTION WIDTH 13.2 % 11.6-14.4 (BEAKER) (test code = 412) PLATELET COUNT (BEAKER) (test 215 K/CU MM 150-450 code = 756) MEAN PLATELET VOLUME (BEAKER) 11.0 fL 9.4-12.4 (test code = 754) NUCLEATED RED BLOOD CELLS 0 /100 WBC 0-0 (BEAKER) (test code = 413) NEUTROPHILS RELATIVE PERCENT 61 % (BEAKER) (test code = 429) LYMPHOCYTES RELATIVE PERCENT 25 % (BEAKER) (test code = 430) MONOCYTES RELATIVE PERCENT 8 % (BEAKER) (test code = 431) EOSINOPHILS RELATIVE PERCENT 4 % (BEAKER) (test code = 432) BASOPHILS RELATIVE PERCENT 1 % (BEAKER) (test code = 437) NEUTROPHILS ABSOLUTE COUNT 4.91 K/ L 1.78-5.38 (BEAKER) (test code = 670) LYMPHOCYTES ABSOLUTE COUNT 2.02 K/ L 1.32-3.57 (BEAKER) (test code = 414) MONOCYTES ABSOLUTE COUNT (BEAKER) 0.67 K/ L 0.30-0.82 (test code = 415) EOSINOPHILS ABSOLUTE COUNT 0.32 K/ L 0.04-0.54 (BEAKER) (test code = 416) BASOPHILS ABSOLUTE COUNT (BEAKER) 0.05 K/ L 0.01-0.08 (test code = 417) IMMATURE GRANULOCYTES-RELATIVE 0 % 0-1 PERCENT (BEAKER) (test code = 2801) RAD, ABDOMEN/KUB, 1 VIEW [id number] 17:30:00Reason for exam:->abd pain, bloated, hx of SBO [facility] 1975 Sex: MFINAL REPORT ONE VIEW ABDOMEN HISTORY: Abdominal pain COMPARISON:Abdominal radiographs of 10/28/2020 FINDINGS: 2 supine AP images of the abdomen were obtained. There is a moderate tolarge volume of fecal material throughout the colon. There is mild colonic distention. There are a few mildly dilated small bowel loops in the central abdomen. These findings may reflect a low-grade mechanical bowel obstruction secondary to fecal impaction. No gastric distention. No obvious free air is seen on these supine images. There is a surgical clip in the right abdomen. Signed: Diane Michael MDReport Verified Date/Time: 02/19/2021 17:30:23 FUNGUS CULTURE + [id number] 17:04:00 Test Item Value Reference Range Interpretation Comments CULTURE (BEAKER) A <1+ Padilla albicans (test code = 1095) FUNGUS SMEAR No fungi seen (BEAKER) (test code = 1406) CF RESPIRATORY [id number] 10:47:00 Test Item Value Reference Range Interpretation Comments CULTURE (BEAKER) (test ESCHERICHIA COLI A < 1+ Escherichia code = 1095) coli Amikacin (test code = S 1) Ampicillin + Sulbactam S (test code = 6) Aztreonam (test code = S 32) Cefepime (test code = S 51) Cefoxitin (test code = S 68) Ceftazidime (test code S = 27) Ceftriaxone (test code S = 52) Ertapenem (test code = S 38) Gentamicin (test code S = 18) Levofloxacin (test R code = 22) Meropenem (test code = S 34) Nitrofurantoin (test S code = 23) Piperacillin + S Tazobactam (test code = 29) Tetracycline (test S code = 2) Tobramycin (test code S = 25) Trimethoprim + S Sulfamethoxazole (test code = 47) CULTURE (BEAKER) (test PSEUDOMONAS A <1+ P seudomonas code = 1095) AERUGINOSA aeruginosa (MUCOID-PHENOTYPE (Mucoid-ph enotyp ) e) Amikacin (test code = See_Comment S [Auto mated 1) message] The system which generated this result transmitted reference range : Susceptible 0-1 6 , Resistant <0 or >16 . The reference range was not used to interpret this result as normal/abnormal . Aztreonam (test code = See_Comment S [Aut omated 32) message] The system which generated this result transmitted reference range : Susceptible 0-8 , Resistant <0 or >8 . The reference range was not used to interpret this result as normal/abnormal . Cefepime (test code = See_Comment S [Auto mated 51) message] The system which generated this result transmitted reference range : Susceptible 0-8 , Resistant <0 or >8 . The reference range was not used to interpret this result as normal/abnormal . Ceftazidime (test code See_Comment S [Aut omated = 27) message] The system which generated this result transmitted reference range : Susceptible 0-8 , Resistant <0 or >8 . The reference range was not used to interpret this result as normal/abnormal . Ciprofloxacin (test See_Comment R [Automa joann code = 7) message] The system which generated this result transmitted reference range : Susceptible 0-0.5 , Resistant <0 or >.5 . The reference range was not used to interpret this result as normal/abnormal . Gentamicin (test code See_Comment S [Auto mated = 18) message] The system which generated this result transmitted reference range : Susceptible 0-4 , Resistant <0 or >4 . The reference range was not used to interpret this result as normal/abnormal . Imipenem (test code = See_Comment S [Auto mated 19) message] The system which generated this result transmitted reference range : Susceptible 0-2 , Resistant <0 or >2 . The reference range was not used to interpret this result as normal/abnormal . Levofloxacin (test See_Comment R [Automat ed code = 22) message] The system which generated this result transmitted reference range : Susceptible 0-1 , Resistant <0 or >1 . The reference range was not used to interpret this result as normal/abnormal . Meropenem (test code = See_Comment S [Aut omated 34) message] The system which generated this result transmitted reference range : Susceptible 0-2 , Resistant <0 or >2 . The reference range was not used to interpret this result as normal/abnormal . Piperacillin (test See_Comment S [Automat ed code = 24) message] The system which generated this result transmitted reference range : Susceptible 0-1 6 , Resistant <0 or >16 . The reference range was not used to interpret this result as normal/abnormal . Piperacillin + See_Comment S [Automated Tazobactam (test code messag e] The = 29) system which generated this result transmitted reference range : Susceptible 0-1 6 , Resistant <0 or >16 . The reference range was not used to interpret this result as normal/abnormal . Tobramycin (test code See_Comment S [Auto mated = 25) message] The system which generated this result transmitted reference range : Susceptible 0-4 , Resistant <0 or >4 . The reference range was not used to interpret this result as normal/abnormal . 3+ Normal respiratory maria del carmen presentSPIN/CONCENTRATION [id number] 07:59:00 Test Item Value Reference Range Interpretation Comments CONCENTRATION CHARGED (BEAKER) (test Done code = 2657) RAD, CHEST, 2 [id number] 14:47:00Reason for Exam:->Cystic Fibrosis [facility] : 1975 Sex: MFINAL REPORT EXAMINATION: RAD, CHEST, 2 VIEWS INDICATION: Cystic Fibrosis COMPARISON: 08/29/2018 June 01, 2019 FINDINGS:TUBES and LINES: None. LUNGS: Lungs are well inflated. Mild chronic appearing change in the lungs. There is no evidence of pneumonia or pulmonary edema. PLEURA: No pleural effusion or pneumothorax. HEART AND MEDIASTINUM: The cardiomediastinal silhouette is unremarkable. BONES AND SOFT TISSUES: No acute osseous lesion. Soft tissues are unremarkable. UPPER ABDOMEN: No free air under the diaphragm. IMPRESSION: No acute thoracic abnormality. Signed: Faviola OrtegaMDRepelder Verified Date/Time: 01/06/2021 14:47:08 Reading Location: [facility] Reading Room [address] [place] [address] RAD, BONE DENSITY [id number] 14:10:00Reason for Exam:->Pancreatic insufficiency due to cystic fibrosis, Vitamin D deficiency [facility] 1975 Sex: MFINAL REPORT Exam: Bone mineral density study. History: Osteopenia. Comparison: None Discussion: Evaluation of the left hip and lumbar spine was performed utilizing DEXA Hologic bone densitometer. The study is technically adequate. Left hip total bone mineral density: 0.913gm/cm2, T-score is -0.8, Z- score is -0.5. Left hip femoral neck bone mineral density: 0.807gm/cm2, T-score is-0.9, Z-score is -0.3. Lumbar spine total bone mineral density:0.959gm/cm2, T- score is-1.2, Z-score is -1.0. Impression:1. Normal bone mineral density of the left hip, fracture risk is not increased.2.Osteopenia of the lumbar spine, fracture risk is increased Least significant change (LSC) for bone mineral density as provided by evs manager is 0.023 g/cm2 for lumbar spine and 0.027 g/cm2 for total hip. 10 -year fracture risk per WHO Fracture Risk Assessment Tool (FRAX) for:Not reported because thepatient is a man under the age of 50 The patient's fracture risk is compared to an age-matched control. Medical evaluation for secondary causes of low bone bone mineral density may be appropriate. Correlate clinically for the necessity and timing of the next bone mineral density study. Signed: Faviola Ortegaeport Verified Date/Time: 01/06/2021 14:10:03 Reading Location: [facility] Reading Room [address] [place] [address] URINALYSIS W/ REFLEX URINE [id number] 11:26:00 Test Item Value Reference Range Interpretation Comments COLOR (BEAKER) (test code = 470) Light Yellow CLARITY (BEAKER) (test code = Clear 469) SPECIFIC GRAVITY UA (BEAKER) 1.009 1.001-1.035 (test code = 468) PH UA (BEAKER) (test code = 467) 6.5 5.0-8.0 PROTEIN UA (BEAKER) (test code = Negative Negative 464) GLUCOSE UA (BEAKER) (test code = Negative Negative 365) KETONES UA (BEAKER) (test code = Negative Negative 371) BILIRUBIN UA (BEAKER) (test code Negative Negative = 462) BLOOD UA (BEAKER) (test code = Negative Negative 461) NITRITE UA (BEAKER) (test code = Negative Negative 465) LEUKOCYTE ESTERASE UA (BEAKER) Negative Negative (test code = 466) UROBILINOGEN UA (BEAKER) (test 0.2 mg/dL 0.2-1.0 code = 463) RBC UA (BEAKER) (test code = 0 /HPF 519) WBC UA (BEAKER) (test code = 1 /HPF 520) SOURCE(BEAKER) (test code = 2795) Director Apparel ID - [auto]Director Apparel ID - techRAD, ABDOMEN/KUB, 1 VIEW [id number] 10:40:00Reason for exam:->constipation [facility] 1975 Sex: MFINAL REPORT RAD, ABDOMEN/KUB, 1 VIEW AP CLINICAL INDICATION: constipation COMPARISON: October 17, 2020 TECHNIQUE: Single, frontal radiograph of the abdomen. FINDINGS: The bowel gas pattern is nonspecific, but nonobstructive. No radiographic evidence of constipation. Colon is predominantly air-filled. The regional skeleton is intact. IMPRESSION: Nonspecific, nonobstructive bowel gas pattern. Signed: Lore Duque Verified Date/Time: 10/28/2020 10:40:07 Reading Location:[facility] Radiology Reading Room COMPREHENSIVE METABOLIC [id number] 12:47:00 Test Item Value Reference Range Interpretation Comments TOTAL PROTEIN 6.4 gm/dL 6.0-8.3 (BEAKER) (test code = 770) ALBUMIN (BEAKER) 3.8 g/dL 3.5-5.0 (test code = 1145) ALKALINE PHOSPHATASE 67 U/L 40-150 (BEAKER) (test code = 346) BILIRUBIN TOTAL 1.0 mg/dL 0.2-1.2 (BEAKER) (test code = 377) SODIUM (BEAKER) (test 137 meq/L 136-145 code = 381) POTASSIUM (BEAKER) 4.3 meq/L 3.5-5.1 (test code = 379) CHLORIDE (BEAKER) 105 meq/L 98-107 (test code = 382) CO2 (BEAKER) (test 27 meq/L 22-29 code = 355) BLOOD UREA NITROGEN 16 mg/dL 7-21 (BEAKER) (test code = 354) CREATININE (BEAKER) 1.08 mg/dL 0.57-1.25 (test code = 358) GLUCOSE RANDOM 91 mg/dL 70-105 (BEAKER) (test code = 652) CALCIUM (BEAKER) 9.1 mg/dL 8.4-10.2 (test code = 697) AST (SGOT) (BEAKER) 21 U/L 5-34 (test code = 353) ALT (SGPT) (BEAKER) 20 U/L 6-55 (test code = 347) EGFR (BEAKER) (test 90 mL/min/1.73 ESTIMA JOANN GFR IS code = 1092) sq m NOT ACCURATE CREATININE CLEARANCE IN PREDICTING GLOMERULAR FILTRATION RATE . ESTIMATED GFR I S NOT APPLICABLE FOR DIALYSIS PATIEN TS. Director Apparel ID - HARLEY [id number] 07:34:00 Test Item Value Reference Range Interpretation Comments BLOOD UREA NITROGEN (BEAKER) (test 16 mg/dL 7-21 code = 354) Director Apparel ID - ANETA [id number] 07:34:00 Test Item Value Reference Range Interpretation Comments CREATININE (BEAKER) 1.08 mg/dL 0.57-1.25 (test code = 358) EGFR (BEAKER) (test 90 mL/min/1.73 ESTIMA JOANN GFR IS code = 1092) sq m NOT ACCURATE CREATININE CLEARANCE IN PREDICTING GLOMERULAR FILTRATION RATE . ESTIMATED GFR I S NOT APPLICABLE FOR DIALYSIS PATIEN TS. Director Apparel ID - PIAYA LPOCT-GLUCOSE [id number] 13:03:00 Test Item Value Reference Range Interpretation Comments POC-GLUCOSE METER 93 mg/dL 70-110 : TESTED A T BSC 6720 (BEAKER) (test code = JUST[place], 1538) [address]: Director Apparel/Techni rian ID = [id number] for BJORN SANCHES [id number] 06:22:00 Test Item Value Reference Range Interpretation Comments BLOOD UREA NITROGEN (BEAKER) (test 20 mg/dL 7 code = 354) Director Apparel ID - PIAYA [id number] 06:22:00 Test Item Value Reference Range Interpretation Comments CREATININE (BEAKER) 1.12 mg/dL 0.57-1.25 (test code = 358) EGFR (BEAKER) (test 86 mL/min/1.73 ESTIMA JOANN GFR IS code = 1092) sq m NOT ACCURATE CREATININE CLEARANCE IN PREDICTING GLOMERULAR FILTRATION RATE . ESTIMATED GFR I S NOT APPLICABLE FOR DIALYSIS PATIEN TS. Director Apparel ID - PIAYA LHEMOGLOBIN [id number] 21:14:00 Test Item Value Reference Range Interpretation Comments HEMOGLOBIN A1C (BEAKER) (test code = 5.6 % 4.3-6.1 368) FL, SMALL BOWEL [id number] 19:16:00Reason for exam:->Rule out ileus or small bowel stricture [facility] 1975 Sex: MFINAL REPORT FL, SMALL BOWEL ONLY CLINICAL HISTORY: Rule out ileus or small bowel stricture COMPARISON: Same day CT abdomen and pelvis. TECHNIQUE: A hose inspector abdominal radiograph is acquired. The small bowel is evaluated with single contrast technique after oral ingestion of Gastrografin contrast using AP abdominal radiographs. Abdominal radiographs are acquired at 0, 20, 40, 60, and 90 minutes. FINDINGS: The hose inspector radiograph demonstrates multiple dilated air- filled loops of small bowel and a large amount of stool throughout the colon. Contrast passes without impediment into the colon with a normal transit time, contrast visualized at the hepatic flexure on the 90 minute radiograph. IMPRESSION: Normal small bowel transit time, less than 90 minutes; dilated gas- filled small bowel loops, unchanged from same day CT. Signed: Janak Reagan Verified Date/Time: 10/25/2020 19:16:52 Reading Location: [address] Body Reading Room Electronically signed by: Mikey ZUNIGA 10/25/2020 07:16 PMCT, [id number] 09:52:00Reason for exam:->abd pain, constipation, hx of obstuctionWhat is the patient's sedation requirement?->No SedationHE[facility] : 1975 Sex: MFINAL REPORT CT, ABDOMEN \\T\\ PELVIS, WITH IV CONTRAST HISTORY: Unlisted Reason for Examabd pain, constipation, hx of obstruction COMPARISON: CT abdomen/pelvis dated 10/19/2019. TECHNIQUE: CT of the abdomen and pelvis WITH intravenous contrast and WITHOUT oral contrast. The examination was performed according to the departmental dose-optimization program, which includes automated exposure control, adjustment of the mA and/or kV according to patient size and/or use of iterative reconstruction technique. FINDINGS: Lower thorax: Unremarkable.Liver: Unremarkable.Gallbladder and bile ducts: Unremarkable.Spleen: Unremarkable.Pancreas: Partial fatty replacement of the pancreas.Adrenals:UnremarkableKidneys and ureters: Nonobstructive punctate bilateral renal calculi. No hydronephrosisBowel: Ileocolonic anastomosis. Significantly distended and mildly thick-walled ileum, possible transition point likely near the ileocolonic anastomosis, as the neoterminal ileum is collapsed, but is notdefinitely visualized. Additionally, there is moderately thick-walled appearance of the distal jejunum (coronal image 50). There is a large amount of stool throughout the colon.Bladder: Moderately distended.Reproductive organs: Unremarkable.Lymph nodes: Unremarkable.Peritoneum: Unremarkable.Vessels: Un remarkable.Abdominal wall: Unremarkable.Bones: Unremarkable. IMPRESSION: 1.Gas and liquid distentionof small bowel loops, transition point not definitely visualized but appears to be near the ileocolonic anastomosis, with collapsed neoterminal ileum. Favor low-grade obstruction, with large amount of stool in the colon. 2.Small bowel loops, including those which are distended, or mild to moderately thick-walled, correlate for any history of infectious or inflammatory enteritis. Signed: Janak Reagan MDRrigobertost. [facility]uke[facility] Verified Date/Time: 10/25/2020 09:52:20 Reading Location: [address] Body Reading Room [id number] 08:43:00 Test Item Value Reference Range Interpretation Comments LIPASE (DWAYNE) (test code = 749) < U/L 8-78 L Director Apparel HODA TREJO MTROPONIN [id number] 08:32:00 Test Item Value Reference Range Interpretation Comments TROPONIN I (CLARKAKER) (test code = 397) < ng/mL 0.00-0.03 Troponin I (TnI) levels must be interpreted in the context of the presenting symptoms and the clinical findings. Elevated TnI levels indicate myocardial damage, but are not specific for ischemic heart disease. Elevated TnI levels are seen in patients with other cardiac conditions (including myocarditis and congestive heart failure), and slight TnI elevations occur in patients with other conditions, including sepsis, renal failure, acidosis, acute neurological disease, and persistent tachyarrhythmia.Director Apparel HODA TREJO MBASIC METABOLIC [id number] 08:24:00 Test Item Value Reference Range Interpretation Comments SODIUM (BEAKER) 134 meq/L 136-145 L (test code = 381) POTASSIUM (BEAKER) 4.0 meq/L 3.5-5.1 (test code = 379) CHLORIDE (BEAKER) 104 meq/L 98-107 (test code = 382) CO2 (BEAKER) (test 21 meq/L 22-29 L code = 355) BLOOD UREA NITROGEN 30 mg/dL 7-21 H (BEAKER) (test code = 354) CREATININE (BEAKER) 1.33 mg/dL 0.57-1.25 H (test code = 358) GLUCOSE RANDOM 121 mg/dL 70-105 H (BEAKER) (test code = 652) CALCIUM (BEAKER) 9.9 mg/dL 8.4-10.2 (test code = 697) EGFR (BEAKER) (test 70 mL/min/1.73 ESTIMA JOANN GFR IS code = 1092) sq m NOT ACCURATE CREATININE CLEARANCE IN PREDICTING GLOMERULAR FILTRATION RATE . ESTIMATED GFR I S NOT APPLICABLE FOR DIALYSIS PATIEN TS. Director Apparel ID - NEIL MCBC W/PLT COUNT & AUTO [id number] 08:03:00 Test Item Value Reference Range Interpretation Comments WHITE BLOOD CELL COUNT (BEAKER) 7.4 K/ L 3.5-10.5 (test code = 775) RED BLOOD CELL COUNT (BEAKER) 4.46 M/ L 4.63-6.08 L (test code = 761) HEMOGLOBIN (BEAKER) (test code = 13.8 GM/DL 13.7-17.5 410) HEMATOCRIT (BEAKER) (test code = 41.8 % 40.1-51.0 411) MEAN CORPUSCULAR VOLUME (BEAKER) 93.7 fL 79.0-92.2 H (test code = 753) MEAN CORPUSCULAR HEMOGLOBIN 30.9 pg 25.7-32.2 (BEAKER) (test code = 751) MEAN CORPUSCULAR HEMOGLOBIN CONC 33.0 GM/DL 32.3-36.5 (BEAKER) (test code = 752) RED CELL DISTRIBUTION WIDTH 13.0 % 11.6-14.4 (BEAKER) (test code = 412) PLATELET COUNT (BEAKER) (test 195 K/CU MM 150-450 code = 756) MEAN PLATELET VOLUME (BEAKER) 11.3 fL 9.4-12.4 (test code = 754) NUCLEATED RED BLOOD CELLS 0 /100 WBC 0-0 (BEAKER) (test code = 413) NEUTROPHILS RELATIVE PERCENT 61 % (BEAKER) (test code = 429) LYMPHOCYTES RELATIVE PERCENT 27 % (BEAKER) (test code = 430) MONOCYTES RELATIVE PERCENT 8 % (BEAKER) (test code = 431) EOSINOPHILS RELATIVE PERCENT 3 % (BEAKER) (test code = 432) BASOPHILS RELATIVE PERCENT 1 % (BEAKER) (test code = 437) NEUTROPHILS ABSOLUTE COUNT 4.50 K/ L 1.78-5.38 (BEAKER) (test code = 670) LYMPHOCYTES ABSOLUTE COUNT 2.02 K/ L 1.32-3.57 (BEAKER) (test code = 414) MONOCYTES ABSOLUTE COUNT (BEAKER) 0.61 K/ L 0.30-0.82 (test code = 415) EOSINOPHILS ABSOLUTE COUNT 0.20 K/ L 0.04-0.54 (BEAKER) (test code = 416) BASOPHILS ABSOLUTE COUNT (BEAKER) 0.05 K/ L 0.01-0.08 (test code = 417) IMMATURE GRANULOCYTES-RELATIVE 0 % 0-1 PERCENT (BEAKER) (test code = 2801) BASIC METABOLIC [id number] 07:43:00 Test Item Value Reference Range Interpretation Comments SODIUM (BEAKER) 139 meq/L 136-145 (test code = 381) POTASSIUM (BEAKER) 4.1 meq/L 3.5-5.1 (test code = 379) CHLORIDE (BEAKER) 103 meq/L 98-107 (test code = 382) CO2 (BEAKER) (test 27 meq/L 22-29 code = 355) BLOOD UREA NITROGEN 9 mg/dL 7-21 (BEAKER) (test code = 354) CREATININE (BEAKER) 1.02 mg/dL 0.57-1.25 (test code = 358) GLUCOSE RANDOM 74 mg/dL 70-105 (BEAKER) (test code = 652) CALCIUM (BEAKER) 8.9 mg/dL 8.4-10.2 (test code = 697) EGFR (BEAKER) (test 96 mL/min/1.73 ESTIMA JOANN GFR IS code = 1092) sq m NOT ACCURATE CREATININE CLEARANCE IN PREDICTING GLOMERULAR FILTRATION RATE . ESTIMATED GFR I S NOT APPLICABLE FOR DIALYSIS PATIEN TS. Director Apparel ID - [id number] 07:43:00 Test Item Value Reference Range Interpretation Comments MAGNESIUM (BEAKER) (test code = 1.7 mg/dL 1.6-2.6 627) Director Apparel ID - DBHEPATIC FUNCTION [id number] 07:43:00 Test Item Value Reference Range Interpretation Comments TOTAL PROTEIN (BEAKER) (test code = 5.8 gm/dL 6.0-8.3 L 770) ALBUMIN (BEAKER) (test code = 1145) 3.4 g/dL 3.5-5.0 L BILIRUBIN TOTAL (BEAKER) (test code 1.3 mg/dL 0.2-1.2 H = 377) BILIRUBIN DIRECT (BEAKER) (test 0.5 mg/dL 0.1-0.5 code = 706) ALKALINE PHOSPHATASE (BEAKER) (test 65 U/L 40-150 code = 346) AST (SGOT) (BEAKER) (test code = 23 U/L 5-34 353) ALT (SGPT) (BEAKER) (test code = 13 U/L 6-55 347) Director Apparel ID - DBCBC W/PLT COUNT & AUTO [id number] 06:56:00 Test Item Value Reference Range Interpretation Comments WHITE BLOOD CELL COUNT (BEAKER) 5.2 K/ L 3.5-10.5 (test code = 775) RED BLOOD CELL COUNT (BEAKER) 3.80 M/ L 4.63-6.08 L (test code = 761) HEMOGLOBIN (BEAKER) (test code = 11.8 GM/DL 13.7-17.5 L 410) HEMATOCRIT (BEAKER) (test code = 35.1 % 40.1-51.0 L 411) MEAN CORPUSCULAR VOLUME (BEAKER) 92.4 fL 79.0-92.2 H (test code = 753) MEAN CORPUSCULAR HEMOGLOBIN 31.1 pg 25.7-32.2 (BEAKER) (test code = 751) MEAN CORPUSCULAR HEMOGLOBIN CONC 33.6 GM/DL 32.3-36.5 (BEAKER) (test code = 752) RED CELL DISTRIBUTION WIDTH 13.2 % 11.6-14.4 (BEAKER) (test code = 412) PLATELET COUNT (BEAKER) (test 152 K/CU MM 150-450 code = 756) MEAN PLATELET VOLUME (BEAKER) 11.0 fL 9.4-12.4 (test code = 754) NUCLEATED RED BLOOD CELLS 0 /100 WBC 0-0 (BEAKER) (test code = 413) NEUTROPHILS RELATIVE PERCENT 44 % (BEAKER) (test code = 429) LYMPHOCYTES RELATIVE PERCENT 42 % (BEAKER) (test code = 430) MONOCYTES RELATIVE PERCENT 9 % (BEAKER) (test code = 431) EOSINOPHILS RELATIVE PERCENT 4 % (BEAKER) (test code = 432) BASOPHILS RELATIVE PERCENT 1 % (BEAKER) (test code = 437) NEUTROPHILS ABSOLUTE COUNT 2.28 K/ L 1.78-5.38 (BEAKER) (test code = 670) LYMPHOCYTES ABSOLUTE COUNT 2.19 K/ L 1.32-3.57 (BEAKER) (test code = 414) MONOCYTES ABSOLUTE COUNT (BEAKER) 0.48 K/ L 0.30-0.82 (test code = 415) EOSINOPHILS ABSOLUTE COUNT 0.18 K/ L 0.04-0.54 (BEAKER) (test code = 416) BASOPHILS ABSOLUTE COUNT (BEAKER) 0.04 K/ L 0.01-0.08 (test code = 417) IMMATURE GRANULOCYTES-RELATIVE 0 % 0-1 PERCENT (BEAKER) (test code = 2801) SARS-COV2/INFLUENZA/RSV [id number] 02:52:00 Test Item Value Reference Range Interpretation Comments SARS-COV2/RT-PCR Negative Negative AA This is a c orrected (test code = result. Previou s result [id number]) was Positive on 2020 at 0123 [facility] [employer] INFLUENZA A RT-PCR Negative Negative (test code = 1889814) INFLUENZA B RT-PCR Negative Negative (test code = 8881980) RSV RT-PCR (test Negative Negative Performance of the Xpert code = 4064118) Xpress SARS- CoV-2/Flu/RSV test has only b een established in nasopharyngeal swab specimens. Use of the Xpert Xpress SARS-CoV-2/Flu/ RSV test with other spec imen types has not been as sessed and performance characteristics are unknown. As wit h any molecular test, mutations within the targ eted genetic regions identified by t he Xpert Xpress SARS-CoV -2/Flu/RSV test could affe ct primer and/or probe bi nding resulting in fa ilure to detect the pres ence of virus or the vi yead being detected less predictably.Neg ative results do not preclude SARS-CoV-2, Inf luenza A/B, or RSV inf ection and should not be u sed as the sole basis for treatment or other patien t management deci sions. Results from e Xpert Xpress SARS-CoV -2/Flu/RSV test should be correlated with the clinic al history, epidem iological data, and other data available to th e clinician evalu ating the patient. Invali d test results may occ ur from improper specim en collection; burt lure to follow the michael mmended sample collecti on, handling, and s torage procedures; donnie hnical error. False ne gative results may occ ur if virus is presen t at levels below e analytical limi t of detection (LOD: 131 copies/mL). Vir al nucleic acid may persis t in vivo, independent of virus viability. Dete ction of analyte target( s) does not imply that the corresponding v irus(es) are infectious or are the causative agent s for clinical sympto ms. Recent patient exposur e to Flu[facility] or othe r live attenuated infl uenza vaccines may ca use inaccurate posi tive results.This te st has been authorized by FDA under an EUA fo r use by authorized labo ratories. This test is on ly authorized for the duration of the declaration antonina t circumstances e xist justifying the authorization o f emergency use o f in vitro diagnostic test s for detection and/o r diagnosis of CO VID-19 under Section 5 64(b)(1) of the Federal Food, Drug and Cosmetic Ac t, 21 U.S.C. 360bbb-3 (b)(1), unless the auth orization is terminated o r revoked sooner.Fact She et for Healthcare Prov iders: [email or web address]://www.mention heid.com/D ocuments/Xpert% 20Xpress%2 7MBBC-VfW-9-Flu -RSV/302-4 508%20Rev.%20B% 20HCP%20Fa ct%20Sheet.pdfF act Sheet for Healthcare Patients: https://www.cep heid.com/D ocuments/Xpert% 20Xpress%2 4NAXM-RuL-5-Flu -RSV/302-4 507%20Rev.%20B% 20Patient% 20Fact%20Sheet. pdf [id number] 22:49:00 Test Item Value Reference Range Interpretation Comments LIPASE (BEAKER) (test code = 749) < U/L 8-78 L Director Apparel ID - DBCOMPREHENSIVE METABOLIC [id number] 22:49:00 Test Item Value Reference Range Interpretation Comments TOTAL PROTEIN 6.3 gm/dL 6.0-8.3 (BEAKER) (test code = 770) ALBUMIN (BEAKER) 3.6 g/dL 3.5-5.0 (test code = 1145) ALKALINE PHOSPHATASE 70 U/L 40-150 (BEAKER) (test code = 346) BILIRUBIN TOTAL 1.2 mg/dL 0.2-1.2 (BEAKER) (test code = 377) SODIUM (BEAKER) (test 139 meq/L 136-145 code = 381) POTASSIUM (BEAKER) 4.0 meq/L 3.5-5.1 (test code = 379) CHLORIDE (BEAKER) 104 meq/L 98-107 (test code = 382) CO2 (BEAKER) (test 26 meq/L 22-29 code = 355) BLOOD UREA NITROGEN 8 mg/dL 7-21 (BEAKER) (test code = 354) CREATININE (BEAKER) 1.03 mg/dL 0.57-1.25 (test code = 358) GLUCOSE RANDOM 89 mg/dL 70-105 (BEAKER) (test code = 652) CALCIUM (BEAKER) 9.4 mg/dL 8.4-10.2 (test code = 697) AST (SGOT) (BEAKER) 23 U/L 5-34 (test code = 353) ALT (SGPT) (BEAKER) 15 U/L 6-55 (test code = 347) EGFR (BEAKER) (test 95 mL/min/1.73 ESTIMA JOANN GFR IS code = 1092) sq m NOT ACCURATE CREATININE CLEARANCE IN PREDICTING GLOMERULAR FILTRATION RATE . ESTIMATED GFR I S NOT APPLICABLE FOR DIALYSIS PATIEN TS. Director Apparel ID - DBCT, [id number] 22:32:00Reason for exam:->ABDOMINAL PAINWhat is the patient's sedation requirement?->No Sedation [facility] : 1975 Sex: MFINAL REPORT EXAM: CT of the abdomen and pelvis, without contrast CLINICAL HISTORY: Bowel obstruction high-grade suspected. Abdominal pain. TECHNIQUE: CT of the abdomen and pelvis was performed without oral or intravenous contrast. This exam was performed according to our departmental dose optimization program which includes automated exposure control, adjustment of the mA and/or kV according to patient's size and/or use of iterative reconstructive technique. COMPARISON: CT abdomen and pelvis 10/15/2020. FINDINGS: Please note study is limited due to lack of intravenous contrast. LOWER CHEST: Within normal limits.HEPATOBILIARY: Within normal limits.PANCREAS: Diffuse fatty atrophy.SPLEEN: Within normal limits.ADRENALS: Within normal limits.KIDNEYS/URETERS: Punctate nonobstructing bilateral renal stones. No hydroureteronephrosis. URINARY BLADDER: Within normal limits.REPRODUCTIVE O RGANS: Within normal limits. BOWEL/MESENTERY: Evaluation of the gastrointestinal tract is limited due to lack of intravenous and oral contrast. Ileocolic anastomosis in the right abdomen. Multiple dilated small and large bowel loops without a definite transition point again noted. Interval resolution of diffuse small bowel wall thickening. No mechanical bowel obstruction. PERITONEUM/RETROPERITONEUM: No free air, free fluid or fluid collection. VESSELS: Within normal limits. LYMPH NODES: No abdominalor pelvic lymphadenopathy.SOFT TISSUES: Within normal limits.BONES: Within normal limits. IMPRESSION:Limited exam without oral or intravenous contrast. Multiple dilated small and large bowel loops without a transition point, which may represent an ileus. No mechanical bowel obstruction. Punctate nonobstructing bilateral renal stones. Diffuse pancreatic fatty atrophy. Signed: Magno Carvajal MDReport Anuel ified Date/Time: 10/19/2020 22:32:56 CBC W/PLT COUNT & AUTO DIFFERENTIAL 2020-10-19 22:23:00 Test Item Value Reference Range Interpretation Comments WHITE BLOOD CELL COUNT (BEAKER) 4.2 K/ L 3.5-10.5 (test code = 775) RED BLOOD CELL COUNT (BEAKER) 3.86 M/ L 4.63-6.08 L (test code = 761) HEMOGLOBIN (BEAKER) (test code = 11.8 GM/DL 13.7-17.5 L 410) HEMATOCRIT (BEAKER) (test code = 36.1 % 40.1-51.0 L 411) MEAN CORPUSCULAR VOLUME (BEAKER) 93.5 fL 79.0-92.2 H (test code = 753) MEAN CORPUSCULAR HEMOGLOBIN 30.6 pg 25.7-32.2 (BEAKER) (test code = 751) MEAN CORPUSCULAR HEMOGLOBIN CONC 32.7 GM/DL 32.3-36.5 (BEAKER) (test code = 752) RED CELL DISTRIBUTION WIDTH 13.2 % 11.6-14.4 (BEAKER) (test code = 412) PLATELET COUNT (BEAKER) (test 152 K/CU MM 150-450 code = 756) MEAN PLATELET VOLUME (BEAKER) 11.4 fL 9.4-12.4 (test code = 754) NUCLEATED RED BLOOD CELLS 0 /100 WBC 0-0 (BEAKER) (test code = 413) NEUTROPHILS RELATIVE PERCENT 44 % (BEAKER) (test code = 429) LYMPHOCYTES RELATIVE PERCENT 42 % (BEAKER) (test code = 430) MONOCYTES RELATIVE PERCENT 9 % (BEAKER) (test code = 431) EOSINOPHILS RELATIVE PERCENT 5 % (BEAKER) (test code = 432) BASOPHILS RELATIVE PERCENT 0 % (BEAKER) (test code = 437) NEUTROPHILS ABSOLUTE COUNT 1.82 K/ L 1.78-5.38 (BEAKER) (test code = 670) LYMPHOCYTES ABSOLUTE COUNT 1.75 K/ L 1.32-3.57 (BEAKER) (test code = 414) MONOCYTES ABSOLUTE COUNT (BEAKER) 0.39 K/ L 0.30-0.82 (test code = 415) EOSINOPHILS ABSOLUTE COUNT 0.19 K/ L 0.04-0.54 (BEAKER) (test code = 416) BASOPHILS ABSOLUTE COUNT (BEAKER) 0.01 K/ L 0.01-0.08 (test code = 417) IMMATURE GRANULOCYTES-RELATIVE 0 % 0-1 PERCENT (BEAKER) (test code = 2801) URINALYSIS W/ REFLEX URINE [id number] 21:51:00 Test Item Value Reference Range Interpretation Comments COLOR (BEAKER) (test code = 470) Yellow CLARITY (BEAKER) (test code = 469) Clear SPECIFIC GRAVITY UA (BEAKER) (test 1.018 1.001-1.035 code = 468) PH UA (BEAKER) (test code = 467) 7.5 5.0-8.0 PROTEIN UA (BEAKER) (test code = Negative Negative 464) GLUCOSE UA (BEAKER) (test code = Negative Negative 365) KETONES UA (BEAKER) (test code = Negative Negative 371) BILIRUBIN UA (BEAKER) (test code = Negative Negative 462) BLOOD UA (BEAKER) (test code = 461) Negative Negative NITRITE UA (BEAKER) (test code = Negative Negative 465) LEUKOCYTE ESTERASE UA (BEAKER) Small Negative A (test code = 466) UROBILINOGEN UA (BEAKER) (test code 0.2 mg/dL 0.2-1.0 = 463) RBC UA (BEAKER) (test code = 519) 0 /HPF WBC UA (BEAKER) (test code = 520) 2 /HPF CALCIUM OXALATE CRYSTALS (BEAKER) Rare (test code = 518) SOURCE(BEAKER) (test code = 2795) Director Apparel ID - [auto]Director Apparel ID - [id number] 05:11:00 Test Item Value Reference Range Interpretation Comments APPEARANCE (test code = Clear Clear 8171629954) COLOR (test code = Yellow Yellow 4725803547) PH (test code = 4.8-8.0 5788008431) SP GRAVITY (test code = 1.003-1.030 8138052329) GLU U QUAL (test code = Normal Normal 0120117786) BLOOD (test code = Negative Negative 7095079484) KETONES (test code = Negative Negative 5978949777) PROTEIN (test code = Negative Negative 2887-8) UROBILIN (test code = Normal Normal 0952488005) BILIRUBIN (test code = Negative Negative 6544511985) NITRITE (test code = Negative Negative 0490521656) LEUK TERRI (test code = Negative Negative 5035266194) RBC/HPF (test code = See_Comment [Autom ated message] 2050658350) The system [employer] generated this result transmitted ref erence range: 0 - 3 HP F. The reference range was not used to int erpret this result as normal/abnormal . WBC/HPF (test code = See_Comment [Autom ated message] 2162019444) The system [employer] generated this result transmitted ref erence range: 0 - 5 HP F. The reference range was not used to int erpret this result as normal/abnormal . BACTERIA (test code = Few Negative A 2759637712) SQ EPITH (test code = <1 HPF 6415223857) Lab Interpretation (test Abnormal code = 05679-8) [facility] [id number] 03:54:00 Test Item Value Reference Range Interpretation Comments TROPONIN I (test <0.012 See_Comment [Automated code = 2936119641) message] The system which generated this result transmitted reference range : <=0.034 ng/mL. The reference range was not used to interpr et this result as normal/abnormal . SHANA (test code = Equal or Less than SHANA) 0.034 ng/ml---Normal ?Note: Cardiac troponin begins to rise 3-4 hours after the onset of ischemia. Repeat in 4-6 hours if the sample was drawn within 3-4 hours of the onset of the symptom and found normal. Between 0.035 and 0.120 ng/mL--- Borderline. Questionable myocardial injury or necrosis ? ?Note: Serial measurement may be necessary to confirm or exclude the diagnosis of myocardial injury or necrosis; Clinical correlation (symptoms, EKGs, imaging studies, and others) required; Repeat in 4-6 hours if clinically indicated. ? Equal or Higher than 0.121 ng/mL---Abnormal. Myocardial Injury or Necrosis Likely ? Biotin has been reported to cause a negative bias, interpret results relative to patient's use of biotin. ? Lab Interpretation Normal (test code = 28737-6) [id number]:44:00 Test Item Value Reference Range Interpretation Comments LIPASE (test code = 2440038642) <10 0-220 Lab Interpretation (test code = Normal 39033-2) [facility] (NA, K, CL, CO2, GLUCOSE, BUN, CREATININE, CA)2020-10-19 03:43:00 Test Item Value Reference Range Interpretation Comments NA (test code = 140 mmol/L 135-145 [id number]) K (test code = 4.0 mmol/L 3.5-5 8194216863) CL (test code = 100 mmol/L 98-108 [id number]) CO2 TOTAL (test code = 33 mmol/L 23-31 H 5094252560) AGAP (test code = 2-16 1873309100) BUN (test code = 5 mg/dL 7-23 L 7394185501) GLUCOSE (test code = 109 mg/dL 70-110 8375158638) CREATININE (test code = 1.17 mg/dL 0.6-1.25 0347831946) CALCIUM (test code = 9.5 mg/dL 8.6-10.6 6441675707) eGFR Calculation mL/min/1.73m2 (Non-) (test code = 5145526591) eGFR Calculation mL/min/1.73m2 () (test code = 5848178123) SHANA (test code = SHANA) Association of Glomerular Filtration Rate (GFR) and Staging of Kidney Disease* + --+ --+ ------+| GFR (mL/min/1.73 m2) ?| With Kidney Damage ?| ?Without Kidney Damage+ --------+ --------+ +| ?>90 ?| ?Stage one ?| ? Normal ?+ ---+ ---+ -------+| ?60-89 ?| ?Stage two ?| ? Decreased GFR ? + --+ --+ ------+| ?30-59 ?| ?Stage three ?| ? Stage three ? + --+ --+ ------+| ?15-29 ?| ?Stage four ? | ? Stage four ?+ ---+ ---+ -------+| ?<15 (or dialysis) ? ?| ?Stage five ? | ? Stage five ?+ ---+ ---+ -------+ *Each stage assumes the associated GFR level has been in effect for at least three months. ?Stages 1 to 5, with or without kidney disease, indicate chronic kidney disease. Notes: Determination of stages one and two (with eGFR >59mL/min/1.73 m2) requires estimation of kidney damage for at least three months as defined by structural or functional abnormalities of the kidney, manifested by either:Pathological abnormalities or Markers of kidney damage (including abnormalities in the composition of the blood or urine or abnormalities in imaging tests). Lab Interpretation Abnormal (test code = 68506-6) [facility]ALB, T.PRO, BILI T, BU/BC, ALT, AST, ALK PHOS)2020-10-19 03:43:00 Test Item Value Reference Range Interpretation Comments TOTAL BILI (test code = 9520077493) 1.6 mg/dL 0.1-1.1 H BILI UNCON (test code = 1028929594) 1.6 mg/dL 0.1-1.1 H BILI CONJ (test code = 1321114249) 0.0 mg/dL 0-0.3 T PROTEIN (test code = 1873229551) 7.2 g/dL 6.3-8.2 ALBUMIN (test code = 1420965001) 4.3 g/dL 3.5-5 ALK PHOS (test code = 2501172903) 64 U/L 34-122 ALTv (test code = 1742-6) 17 U/L 5-50 AST(SGOT) (test code = 2072369827) 27 U/L 13-40 Lab Interpretation (test code = Abnormal 89992-4) [facility]ID [facility])2020-10-19 03:42:00 Test Item Value Reference Range Interpretation Comments SARS-CoV-2 Rapid ID NOW Not Detected Not Detected (test code = 20226-1) SHANA (test code = SHANA) ID NOW COVID-19 Assay is an isothermal nucleic acid amplification test intended for the qualitative detection of nucleic acid from SARS-CoV-2 viral RNA in nasopharyngeal (DOOR PULLER) specimens. It is used under Emergency Use Authorization (EUA) by FDA. The limit of detection (LOD) of the assay is 125 Genome Equivalents/mL. A positive result is indicative of the presence of SARS-CoV-2 RNA. ?Clinical correlation with patient history and other diagnostic information is necessary to determine patient infection status. A negative (Not Detected) result does not preclude SARS-CoV-2 infection. In patients with clinical symptoms and other tests that are consistent with SARS-CoV-2 infection, negative results should be treated as presumptive negative and a new specimen should be tested with alternative PCR molecular test. Invalid: Please collect a new specimen for repeat patient testing if clinically indicated. Lab Interpretation Normal (test code = 90066-5) [facility] with [id number] 03:28:00 Test Item Value Reference Range Interpretation Comments WBC (test code = See_Comment [Automated 1090-2) message] The sy stem which generated this result transmitted reference range : 4.20 - 10.70 10*3/?L. The reference range was not used to interpret this result as normal/abnormal . RBC (test code = See_Comment L [Automated 269-8) message] The sy stem which generated this result transmitted reference range : 4.26 - 5.52 10*6/?L. The reference range was not used to interpret this result as normal/abnormal . HGB (test code = 12.7 g/dL 12.2-16.4 718-7) HCT (test code = 38.1 % 38.4-49.3 L 4544-3) MCV (test code = 92.3 fL 81.7-95.6 787-2) MCH (test code = 30.8 pg 26.1-32.7 785-6) MCHC (test code = 33.3 g/dL 31.2-35 786-4) RDW-SD (test code = 44.1 fL 38.5-51.6 31590-8) RDW-CV (test code = 12.9 % 12.1-15.4 788-0) PLT (test code = See_Comment [Automated 777-3) message] The sy stem which generated this result transmitted reference range : 150 - 328 10*3/ ?L. The reference r taurus was not used to interpret this result as normal/abnormal . MPV (test code = 11.8 fL 9.8-13 52606-4) NRBC/100 WBC (test See_Comment [Automat ed code = 0967141226) message] The system which generated this result transmitted reference range : 0.0 - 10.0 /100 WBCs. The refer ence range was not u sed to interpret th is result as normal/abnormal . NRBC x10^3 (test code <0.01 See_Comment [Auto mated = 6736787835) message] The s ystem which generated this result transmitted reference range : 10*3/?L. The reference range was not used to interpret this result as normal/abnormal . GRAN MAT (NEUT) % 54.1 % (test code = 770-8) IMM GRAN % (test code 0.20 % = 8243121382) LYMPH % (test code = 30.0 % 736-9) MONO % (test code = 11.6 % 5905-5) EOS % (test code = 3.6 % 713-8) BASO % (test code = 0.5 % 706-2) GRAN MAT x10^3(ANC) 3.28 10*3/uL 1.99-6.95 (test code = 4639718634) IMM GRAN x10^3 (test <0.03 0-0.06 code = 6985615866) LYMPH x10^3 (test code 1.82 10*3/uL 1.09-3.23 = 731-0) MONO x10^3 (test code 0.70 10*3/uL 0.36-1.02 = 742-7) EOS x10^3 (test code = 0.22 10*3/uL 0.06-0.53 711-2) BASO x10^3 (test code 0.03 10*3/uL 0.01-0.09 = 704-7) Lab Interpretation Abnormal (test code = 37350-5) [facility] METABOLIC [id number] 05:05:00 Test Item Value Reference Range Interpretation Comments SODIUM (BEAKER) 138 meq/L 136-145 (test code = 381) POTASSIUM (BEAKER) 3.7 meq/L 3.5-5.1 (test code = 379) CHLORIDE (BEAKER) 106 meq/L 98-107 (test code = 382) CO2 (BEAKER) (test 27 meq/L 22-29 code = 355) BLOOD UREA NITROGEN 4 mg/dL 7-21 L (BEAKER) (test code = 354) CREATININE (BEAKER) 0.91 mg/dL 0.57-1.25 (test code = 358) GLUCOSE RANDOM 88 mg/dL 70-105 (BEAKER) (test code = 652) CALCIUM (BEAKER) 8.1 mg/dL 8.4-10.2 L (test code = 697) EGFR (BEAKER) (test 110 mL/min/1.73 ESTIM ATED GFR IS code = 1092) sq m NOT ACCURATE CREATININE CLEARANCE IN PREDICTING GLOMERULAR FILTRATION RATE . ESTIMATED GFR I S NOT APPLICABLE FOR DIALYSIS PATIEN TS. Director Apparel ID - [id number] 05:05:00 Test Item Value Reference Range Interpretation Comments MAGNESIUM (BEAKER) (test code = 1.6 mg/dL 1.6-2.6 627) Director Apparel ID - ALY, ABDOMEN/KUB, 1 VIEW [id number] 15:41:00Reason for exam:->abdominal pain [facility] 1975 Sex: MFINAL REPORT RAD, ABDOMEN/KUB, 1 VIEW AP CLINICAL INDICATION: abdominal pain COMPARISON: June 08, 2020 TECHNIQUE: Single, frontal radiograph of the abdomen. IMPRESSION: The bowel gas pattern dilated loops of small and large bowel. Appearance favors ileus. No visible pneumatosis. The regional skeleton is intact. Signed: JR Burk Robert MDReport Verified Date/Time: 10/17/2020 15:41:19 Reading Location: [facility] Radiology Reading Room BASIC METABOLIC PANEL 2020-10-17 07:22:00 Test Item Value Reference Range Interpretation Comments SODIUM (BEAKER) 139 meq/L 136-145 (test code = 381) POTASSIUM (BEAKER) 3.3 meq/L 3.5-5.1 L (test code = 379) CHLORIDE (BEAKER) 106 meq/L 98-107 (test code = 382) CO2 (BEAKER) (test 26 meq/L 22-29 code = 355) BLOOD UREA NITROGEN 9 mg/dL 7-21 (BEAKER) (test code = 354) CREATININE (BEAKER) 1.11 mg/dL 0.57-1.25 (test code = 358) GLUCOSE RANDOM 96 mg/dL 70-105 (BEAKER) (test code = 652) CALCIUM (BEAKER) 8.2 mg/dL 8.4-10.2 L (test code = 697) EGFR (BEAKER) (test 87 mL/min/1.73 ESTIMA JOANN GFR IS code = 1092) sq m NOT ACCURATE CREATININE CLEARANCE IN PREDICTING GLOMERULAR FILTRATION RATE . ESTIMATED GFR I S NOT APPLICABLE FOR DIALYSIS PATIEN TS. Director Apparel ID - ANETA [id number] 07:22:00 Test Item Value Reference Range Interpretation Comments MAGNESIUM (BEAKER) (test code = 2.0 mg/dL 1.6-2.6 627) Director Apparel ID - ANETA LCBC W/PLT COUNT & AUTO [id number] 06:22:00 Test Item Value Reference Range Interpretation Comments WHITE BLOOD CELL COUNT (BEAKER) 4.3 K/ L 3.5-10.5 (test code = 775) RED BLOOD CELL COUNT (BEAKER) 3.62 M/ L 4.63-6.08 L (test code = 761) HEMOGLOBIN (BEAKER) (test code = 11.1 GM/DL 13.7-17.5 L 410) HEMATOCRIT (BEAKER) (test code = 33.4 % 40.1-51.0 L 411) MEAN CORPUSCULAR VOLUME (BEAKER) 92.3 fL 79.0-92.2 H (test code = 753) MEAN CORPUSCULAR HEMOGLOBIN 30.7 pg 25.7-32.2 (BEAKER) (test code = 751) MEAN CORPUSCULAR HEMOGLOBIN CONC 33.2 GM/DL 32.3-36.5 (BEAKER) (test code = 752) RED CELL DISTRIBUTION WIDTH 13.2 % 11.6-14.4 (BEAKER) (test code = 412) PLATELET COUNT (BEAKER) (test 144 K/CU MM 150-450 L code = 756) MEAN PLATELET VOLUME (BEAKER) 11.4 fL 9.4-12.4 (test code = 754) NUCLEATED RED BLOOD CELLS 0 /100 WBC 0-0 (BEAKER) (test code = 413) NEUTROPHILS RELATIVE PERCENT 52 % (BEAKER) (test code = 429) LYMPHOCYTES RELATIVE PERCENT 31 % (BEAKER) (test code = 430) MONOCYTES RELATIVE PERCENT 14 % (BEAKER) (test code = 431) EOSINOPHILS RELATIVE PERCENT 2 % (BEAKER) (test code = 432) BASOPHILS RELATIVE PERCENT 0 % (BEAKER) (test code = 437) NEUTROPHILS ABSOLUTE COUNT 2.22 K/ L 1.78-5.38 (BEAKER) (test code = 670) LYMPHOCYTES ABSOLUTE COUNT 1.33 K/ L 1.32-3.57 (BEAKER) (test code = 414) MONOCYTES ABSOLUTE COUNT (BEAKER) 0.59 K/ L 0.30-0.82 (test code = 415) EOSINOPHILS ABSOLUTE COUNT 0.10 K/ L 0.04-0.54 (BEAKER) (test code = 416) BASOPHILS ABSOLUTE COUNT (BEAKER) 0.01 K/ L 0.01-0.08 (test code = 417) IMMATURE GRANULOCYTES-RELATIVE 0 % 0-1 PERCENT (BEAKER) (test code = 2801) BASIC METABOLIC [id number] 05:42:00 Test Item Value Reference Range Interpretation Comments SODIUM (BEAKER) 137 meq/L 136-145 (test code = 381) POTASSIUM (BEAKER) 3.5 meq/L 3.5-5.1 (test code = 379) CHLORIDE (BEAKER) 105 meq/L 98-107 (test code = 382) CO2 (BEAKER) (test 26 meq/L 22-29 code = 355) BLOOD UREA NITROGEN 12 mg/dL 7-21 (BEAKER) (test code = 354) CREATININE (BEAKER) 1.13 mg/dL 0.57-1.25 (test code = 358) GLUCOSE RANDOM 96 mg/dL 70-105 (BEAKER) (test code = 652) CALCIUM (BEAKER) 8.4 mg/dL 8.4-10.2 (test code = 697) EGFR (BEAKER) (test 85 mL/min/1.73 ESTIMA JOANN GFR IS code = 1092) sq m NOT ACCURATE CREATININE CLEARANCE IN PREDICTING GLOMERULAR FILTRATION RATE . ESTIMATED GFR I S NOT APPLICABLE FOR DIALYSIS PATIEN TS. Director Apparel ID - NEIL [id number] 05:42:00 Test Item Value Reference Range Interpretation Comments MAGNESIUM (BEAKER) (test code = 1.4 mg/dL 1.6-2.6 L 627) Director Apparel ID - NEIL MCBC W/PLT COUNT & AUTO [id number] 04:47:00 Test Item Value Reference Range Interpretation Comments WHITE BLOOD CELL COUNT (BEAKER) 4.7 K/ L 3.5-10.5 (test code = 775) RED BLOOD CELL COUNT (BEAKER) 3.78 M/ L 4.63-6.08 L (test code = 761) HEMOGLOBIN (BEAKER) (test code = 11.5 GM/DL 13.7-17.5 L 410) HEMATOCRIT (BEAKER) (test code = 34.6 % 40.1-51.0 L 411) MEAN CORPUSCULAR VOLUME (BEAKER) 91.5 fL 79.0-92.2 (test code = 753) MEAN CORPUSCULAR HEMOGLOBIN 30.4 pg 25.7-32.2 (BEAKER) (test code = 751) MEAN CORPUSCULAR HEMOGLOBIN CONC 33.2 GM/DL 32.3-36.5 (BEAKER) (test code = 752) RED CELL DISTRIBUTION WIDTH 13.2 % 11.6-14.4 (BEAKER) (test code = 412) PLATELET COUNT (BEAKER) (test 145 K/CU MM 150-450 L code = 756) MEAN PLATELET VOLUME (BEAKER) 11.3 fL 9.4-12.4 (test code = 754) NUCLEATED RED BLOOD CELLS 0 /100 WBC 0-0 (BEAKER) (test code = 413) NEUTROPHILS RELATIVE PERCENT 57 % (BEAKER) (test code = 429) LYMPHOCYTES RELATIVE PERCENT 29 % (BEAKER) (test code = 430) MONOCYTES RELATIVE PERCENT 11 % (BEAKER) (test code = 431) EOSINOPHILS RELATIVE PERCENT 3 % (BEAKER) (test code = 432) BASOPHILS RELATIVE PERCENT 0 % (BEAKER) (test code = 437) NEUTROPHILS ABSOLUTE COUNT 2.64 K/ L 1.78-5.38 (BEAKER) (test code = 670) LYMPHOCYTES ABSOLUTE COUNT 1.35 K/ L 1.32-3.57 (BEAKER) (test code = 414) MONOCYTES ABSOLUTE COUNT (BEAKER) 0.50 K/ L 0.30-0.82 (test code = 415) EOSINOPHILS ABSOLUTE COUNT 0.15 K/ L 0.04-0.54 (BEAKER) (test code = 416) BASOPHILS ABSOLUTE COUNT (BEAKER) 0.01 K/ L 0.01-0.08 (test code = 417) IMMATURE GRANULOCYTES-RELATIVE 0 % 0-1 PERCENT (BEAKER) (test code = 2801) SARS-COV2/RT-PCR ([facility])2020-10-15 13:08:00 Test Item Value Reference Range Interpretation Comments SARS-COV2/RT-PCR (test Negative Not Detected, Negative, code = 8528866) See external report for linked test SARS-COV-2 PERFORMING LAB [facility] (test code = 5155504) Negative result for this test determines that SARS-CoV-2 RNA was not present in the specimen above the Limit of Detection (LOD). However, Negative results do not preclude SARS-CoV-2 infection and should not be used as the sole basis for treatment or patient management decisions. Negative results must be combined with clinical observations, patient history, and epidemiological information. A false negative result may occur if a specimen is improperly collected, transported or handled. A false negative result should be considered if patient's recent exposures or clinical presentation indicate that COVID-19 (SARS-CoV-2) is likely and diagnostic tests for other causes of illness are negative. Re-testing should be considered in cases of suspected false negatives.The limit of detection for this assay is 800 copies/mL.This SARS CoV-2 test is a real-time RT-PCR test intended for the qualitative detection of nucleic acid from SARS-CoV-2 in a nasopharyngeal swab specimen collected from individuals suspected of COVID-19 by their healthcare provider.This test has not been Food and Drug Administration (FDA) cleared or approved. This is a modified version of an approved Emergency Use Authorization (EUA) and is in the process of review by the FDA. Once authorized by the FDA, the issued EUA will be effective until the declaration that circumstances exist justifying the authorization of the emergency use ofin vitro diagnostic tests for detection and/or diagnosis of COVID-19 is terminated under Section 564(b)(2) of the Act or the EUA is revoked under Section 564(g) of the Act.Fact Sheet for Healthcare Prov iders:https://www.[employer]/sites/default/files/product/documents/Fact_Sheet_HC _[place]mft_Krri_FMTU-WzB-3.pdfFact Sheet for Healthcare Patients:https://www.[employer]/sites/default/files/product/docume nts/Avfq_Iqpmt_Ppkgfcep_Bych_TFHV-EaY-8.pdfPerforming Laboratory:[facility], [place] [address]RX, [id number] 03:01:00Reason for exam:->ABDOMINAL PAINWhat is the patient's sedation requirement?->[facility] : 1975 Sex: MFINAL REPORT CT, ABDOMEN \\T\\ PELVIS, WITH IV CONTRAST INDICATION: Bowel obstruction high-grade suspectedABDOMINAL PAIN COMPARISON: CT abdomen pelvis dated 06/07/2020 TECHNIQUE:Post contrast abdomen and pelvis CT. Coronal and sagittal reformatted images obtained. DOSE REDUCTION: Dosemodulation, iterative reconstruction, and/or weight-based adjustment of the mA/kV was utilized to red uce the radiation dose to as low as reasonably achievable. FINDINGS: Lower thorax: Visible airspacesclear. Minimal dependent atelectasis. No pleural effusion. The heart is normal in size. No pericardial effusion. Liver: No parenchymal abnormality.Gallbladder and biliary tree: Gallbladder is somewhat d istended. No wall thickening or pericholecystic fluid. No ductal dilatation.Pancreas: Atrophic. No acute abnormality.Spleen: No acute findingsAdrenal Glands: No acute findings.Kidneys and ureters: Bilateral nonobstructing nephrolithiasis. No contour deforming renal lesions. No hydronephrosis or hydroureter.Bladder and reproductive organs: Unremarkable. Stomach and Duodenum: No significant findings.Small and large intestine: There are multiple distended loops of small bowel within the lower abdomen with abnormal areas of bowel wall thickening, similar over multiple prior studies however no definite discrete transition point to suggest obstruction. Large stool burden throughout the large bowel. There is an ileocolic anastomosis in the left abdomen. Appendix: Surgically absent. Major vascular structures: Normal aortic caliber.Peritoneum and retroperitoneum: Multiple prominent mesenteric lymph nodesare likely reactive. No drainable fluid collection. No pneumoperitoneum. Skeleton: No acute bony abnormality.Additional findings: None. IMPRESSION: Again seen are multiple moderately distended distal small bowel with associated bowel wall thickening and large stool burden throughout the large bowel. Findings can be seen in the setting of distal intestinal obstruction syndrome in the setting of cysticfibrosis however no transition point is identified to suggest high-grade obstruction. Consider further evaluation with small bowel follow-through fluoroscopic study.Non obstructing bilateral nephrolithiasis.Fatty atrophy pancreas. Signed: Debbie Ding [facility] Verified Date/Time: 10/15/2020 03:01:22 [id number] 02:35:00 Test Item Value Reference Range Interpretation Comments LIPASE (BEAKER) (test code = 749) < U/L 8-78 L Director Apparel ID - ANETA LOperator ID - ANETA LOperator ID - ADMINCOMPREHENSIVE METABOLIC [id number] 01:16:00 Test Item Value Reference Range Interpretation Comments TOTAL PROTEIN 7.8 gm/dL 6.0-8.3 Specimen sligh tly (BEAKER) (test code = hemoly zed 770) ALBUMIN (BEAKER) 4.5 g/dL 3.5-5.0 Specimen sl ightly (test code = 1145) hemolyzed ALKALINE PHOSPHATASE 83 U/L 40-150 (BEAKER) (test code = 346) BILIRUBIN TOTAL 1.6 mg/dL 0.2-1.2 H Specimen sli ghtly (BEAKER) (test code = hemoly zed 377) SODIUM (BEAKER) (test 136 meq/L 136-145 code = 381) POTASSIUM (BEAKER) 4.2 meq/L 3.5-5.1 Specimen slightly (test code = 379) hemolyzed CHLORIDE (BEAKER) 107 meq/L 98-107 (test code = 382) CO2 (BEAKER) (test 19 meq/L 22-29 L code = 355) BLOOD UREA NITROGEN 17 mg/dL 7-21 (BEAKER) (test code = 354) CREATININE (BEAKER) 1.16 mg/dL 0.57-1.25 Specimen slightly (test code = 358) hemolyzed GLUCOSE RANDOM 108 mg/dL 70-105 H (BEAKER) (test code = 652) CALCIUM (BEAKER) 9.3 mg/dL 8.4-10.2 (test code = 697) AST (SGOT) (BEAKER) 29 U/L 5-34 Specimen slightly (test code = 353) hemolyzed ALT (SGPT) (BEAKER) 26 U/L 6-55 Specimen slightly (test code = 347) hemolyzed EGFR (BEAKER) (test 83 mL/min/1.73 ESTIMA JOANN GFR IS code = 1092) sq m NOT ACCURATE CREATININE CLEARANCE IN PREDICTING GLOMERULAR FILTRATION RATE . ESTIMATED GFR I S NOT APPLICABLE FOR DIALYSIS PATIEN TS. Director Apparel ID - ANETA LCBC W/PLT COUNT & AUTO [id number] 00:41:00 Test Item Value Reference Range Interpretation Comments WHITE BLOOD CELL COUNT (BEAKER) 8.7 K/ L 3.5-10.5 (test code = 775) RED BLOOD CELL COUNT (BEAKER) 4.34 M/ L 4.63-6.08 L (test code = 761) HEMOGLOBIN (BEAKER) (test code = 13.6 GM/DL 13.7-17.5 L 410) HEMATOCRIT (BEAKER) (test code = 40.4 % 40.1-51.0 411) MEAN CORPUSCULAR VOLUME (BEAKER) 93.1 fL 79.0-92.2 H (test code = 753) MEAN CORPUSCULAR HEMOGLOBIN 31.3 pg 25.7-32.2 (BEAKER) (test code = 751) MEAN CORPUSCULAR HEMOGLOBIN CONC 33.7 GM/DL 32.3-36.5 (BEAKER) (test code = 752) RED CELL DISTRIBUTION WIDTH 13.3 % 11.6-14.4 (BEAKER) (test code = 412) PLATELET COUNT (BEAKER) (test 229 K/CU MM 150-450 code = 756) MEAN PLATELET VOLUME (BEAKER) 11.5 fL 9.4-12.4 (test code = 754) NUCLEATED RED BLOOD CELLS 0 /100 WBC 0-0 (BEAKER) (test code = 413) NEUTROPHILS RELATIVE PERCENT 70 % (BEAKER) (test code = 429) LYMPHOCYTES RELATIVE PERCENT 19 % (BEAKER) (test code = 430) MONOCYTES RELATIVE PERCENT 9 % (BEAKER) (test code = 431) EOSINOPHILS RELATIVE PERCENT 2 % (BEAKER) (test code = 432) BASOPHILS RELATIVE PERCENT 0 % (BEAKER) (test code = 437) NEUTROPHILS ABSOLUTE COUNT 6.12 K/ L 1.78-5.38 H (BEAKER) (test code = 670) LYMPHOCYTES ABSOLUTE COUNT 1.62 K/ L 1.32-3.57 (BEAKER) (test code = 414) MONOCYTES ABSOLUTE COUNT (BEAKER) 0.80 K/ L 0.30-0.82 (test code = 415) EOSINOPHILS ABSOLUTE COUNT 0.15 K/ L 0.04-0.54 (BEAKER) (test code = 416) BASOPHILS ABSOLUTE COUNT (BEAKER) 0.02 K/ L 0.01-0.08 (test code = 417) IMMATURE GRANULOCYTES-RELATIVE 0 % 0-1 PERCENT (BEAKER) (test code = 2801) BASIC METABOLIC [id number] 07:08:00 Test Item Value Reference Range Interpretation Comments SODIUM (BEAKER) 138 meq/L 136-145 (test code = 381) POTASSIUM (BEAKER) 4.1 meq/L 3.5-5.1 (test code = 379) CHLORIDE (BEAKER) 104 meq/L 98-107 (test code = 382) CO2 (BEAKER) (test 26 meq/L 22-29 code = 355) BLOOD UREA NITROGEN 15 mg/dL 7-21 (BEAKER) (test code = 354) CREATININE (BEAKER) 1.18 mg/dL 0.57-1.25 (test code = 358) GLUCOSE RANDOM 106 mg/dL 70-105 H (BEAKER) (test code = 652) CALCIUM (BEAKER) 9.2 mg/dL 8.4-10.2 (test code = 697) EGFR (BEAKER) (test 81 mL/min/1.73 ESTIMA JOANN GFR IS code = 1092) sq m NOT ACCURATE CREATININE CLEARANCE IN PREDICTING GLOMERULAR FILTRATION RATE . ESTIMATED GFR I S NOT APPLICABLE FOR DIALYSIS PATIEN TS. Director Apparel ID - NTPCBC W/PLT COUNT & AUTO [id number] 06:29:00 Test Item Value Reference Range Interpretation Comments WHITE BLOOD CELL COUNT (BEAKER) 4.9 K/ L 3.5-10.5 (test code = 775) RED BLOOD CELL COUNT (BEAKER) 3.89 M/ L 4.63-6.08 L (test code = 761) HEMOGLOBIN (BEAKER) (test code = 11.9 GM/DL 13.7-17.5 L 410) HEMATOCRIT (BEAKER) (test code = 36.5 % 40.1-51.0 L 411) MEAN CORPUSCULAR VOLUME (BEAKER) 93.8 fL 79.0-92.2 H (test code = 753) MEAN CORPUSCULAR HEMOGLOBIN 30.6 pg 25.7-32.2 (BEAKER) (test code = 751) MEAN CORPUSCULAR HEMOGLOBIN CONC 32.6 GM/DL 32.3-36.5 (BEAKER) (test code = 752) RED CELL DISTRIBUTION WIDTH 14.0 % 11.6-14.4 (BEAKER) (test code = 412) PLATELET COUNT (BEAKER) (test 180 K/CU MM 150-450 code = 756) MEAN PLATELET VOLUME (BEAKER) 11.6 fL 9.4-12.4 (test code = 754) NUCLEATED RED BLOOD CELLS 0 /100 WBC 0-0 (BEAKER) (test code = 413) NEUTROPHILS RELATIVE PERCENT 42 % (BEAKER) (test code = 429) LYMPHOCYTES RELATIVE PERCENT 38 % (BEAKER) (test code = 430) MONOCYTES RELATIVE PERCENT 13 % (BEAKER) (test code = 431) EOSINOPHILS RELATIVE PERCENT 7 % (BEAKER) (test code = 432) BASOPHILS RELATIVE PERCENT 1 % (BEAKER) (test code = 437) NEUTROPHILS ABSOLUTE COUNT 2.02 K/ L 1.78-5.38 (BEAKER) (test code = 670) LYMPHOCYTES ABSOLUTE COUNT 1.82 K/ L 1.32-3.57 (BEAKER) (test code = 414) MONOCYTES ABSOLUTE COUNT (BEAKER) 0.62 K/ L 0.30-0.82 (test code = 415) EOSINOPHILS ABSOLUTE COUNT 0.34 K/ L 0.04-0.54 (BEAKER) (test code = 416) BASOPHILS ABSOLUTE COUNT (BEAKER) 0.04 K/ L 0.01-0.08 (test code = 417) IMMATURE GRANULOCYTES-RELATIVE 0 % 0-1 PERCENT (BEAKER) (test code = 2801) BASIC METABOLIC [id number] 06:39:00 Test Item Value Reference Range Interpretation Comments SODIUM (BEAKER) 137 meq/L 136-145 (test code = 381) POTASSIUM (BEAKER) 4.2 meq/L 3.5-5.1 (test code = 379) CHLORIDE (BEAKER) 102 meq/L 98-107 (test code = 382) CO2 (BEAKER) (test 26 meq/L 22-29 code = 355) BLOOD UREA NITROGEN 14 mg/dL 7-21 (BEAKER) (test code = 354) CREATININE (BEAKER) 1.16 mg/dL 0.57-1.25 (test code = 358) GLUCOSE RANDOM 98 mg/dL 70-105 (BEAKER) (test code = 652) CALCIUM (BEAKER) 9.5 mg/dL 8.4-10.2 (test code = 697) EGFR (BEAKER) (test 83 mL/min/1.73 ESTIMA JOANN GFR IS code = 1092) sq m NOT ACCURATE CREATININE CLEARANCE IN PREDICTING GLOMERULAR FILTRATION RATE . ESTIMATED GFR I S NOT APPLICABLE FOR DIALYSIS PATIEN TS. Director Apparel ID - EDASISpecimen slightly ictericCBC W/PLT COUNT & AUTO [id number] 06:08:00 Test Item Value Reference Range Interpretation Comments WHITE BLOOD CELL COUNT (BEAKER) 7.5 K/ L 3.5-10.5 (test code = 775) RED BLOOD CELL COUNT (BEAKER) 4.34 M/ L 4.63-6.08 L (test code = 761) HEMOGLOBIN (BEAKER) (test code = 13.2 GM/DL 13.7-17.5 L 410) HEMATOCRIT (BEAKER) (test code = 40.6 % 40.1-51.0 411) MEAN CORPUSCULAR VOLUME (BEAKER) 93.5 fL 79.0-92.2 H (test code = 753) MEAN CORPUSCULAR HEMOGLOBIN 30.4 pg 25.7-32.2 (BEAKER) (test code = 751) MEAN CORPUSCULAR HEMOGLOBIN CONC 32.5 GM/DL 32.3-36.5 (BEAKER) (test code = 752) RED CELL DISTRIBUTION WIDTH 13.8 % 11.6-14.4 (BEAKER) (test code = 412) PLATELET COUNT (BEAKER) (test 165 K/CU MM 150-450 code = 756) MEAN PLATELET VOLUME (BEAKER) 12.4 fL 9.4-12.4 (test code = 754) NUCLEATED RED BLOOD CELLS 0 /100 WBC 0-0 (BEAKER) (test code = 413) NEUTROPHILS RELATIVE PERCENT 65 % (BEAKER) (test code = 429) LYMPHOCYTES RELATIVE PERCENT 20 % (BEAKER) (test code = 430) MONOCYTES RELATIVE PERCENT 10 % (BEAKER) (test code = 431) EOSINOPHILS RELATIVE PERCENT 4 % (BEAKER) (test code = 432) BASOPHILS RELATIVE PERCENT 1 % (BEAKER) (test code = 437) NEUTROPHILS ABSOLUTE COUNT 4.88 K/ L 1.78-5.38 (BEAKER) (test code = 670) LYMPHOCYTES ABSOLUTE COUNT 1.51 K/ L 1.32-3.57 (BEAKER) (test code = 414) MONOCYTES ABSOLUTE COUNT (BEAKER) 0.73 K/ L 0.30-0.82 (test code = 415) EOSINOPHILS ABSOLUTE COUNT 0.32 K/ L 0.04-0.54 (BEAKER) (test code = 416) BASOPHILS ABSOLUTE COUNT (BEAKER) 0.04 K/ L 0.01-0.08 (test code = 417) IMMATURE GRANULOCYTES-RELATIVE 0 % 0-1 PERCENT (BEAKER) (test code = 2801) BASIC METABOLIC [id number] 06:45:00 Test Item Value Reference Range Interpretation Comments SODIUM (BEAKER) 136 meq/L 136-145 (test code = 381) POTASSIUM (BEAKER) 4.0 meq/L 3.5-5.1 (test code = 379) CHLORIDE (BEAKER) 102 meq/L 98-107 (test code = 382) CO2 (BEAKER) (test 27 meq/L 22-29 code = 355) BLOOD UREA NITROGEN 18 mg/dL 7-21 (BEAKER) (test code = 354) CREATININE (BEAKER) 1.08 mg/dL 0.57-1.25 (test code = 358) GLUCOSE RANDOM 75 mg/dL 70-105 (BEAKER) (test code = 652) CALCIUM (BEAKER) 9.1 mg/dL 8.4-10.2 (test code = 697) EGFR (BEAKER) (test 90 mL/min/1.73 ESTIMA JOANN GFR IS code = 1092) sq m NOT ACCURATE CREATININE CLEARANCE IN PREDICTING GLOMERULAR FILTRATION RATE . ESTIMATED GFR I S NOT APPLICABLE FOR DIALYSIS PATIEN TS. Director Apparel ID - PIAYA LSpecimen slightly ictericCBC W/PLT COUNT & AUTO [id number] 06:28:00 Test Item Value Reference Range Interpretation Comments WHITE BLOOD CELL COUNT (BEAKER) 7.0 K/ L 3.5-10.5 (test code = 775) RED BLOOD CELL COUNT (BEAKER) 4.02 M/ L 4.63-6.08 L (test code = 761) HEMOGLOBIN (BEAKER) (test code = 12.1 GM/DL 13.7-17.5 L 410) HEMATOCRIT (BEAKER) (test code = 38.0 % 40.1-51.0 L 411) MEAN CORPUSCULAR VOLUME (BEAKER) 94.5 fL 79.0-92.2 H (test code = 753) MEAN CORPUSCULAR HEMOGLOBIN 30.1 pg 25.7-32.2 (BEAKER) (test code = 751) MEAN CORPUSCULAR HEMOGLOBIN CONC 31.8 GM/DL 32.3-36.5 L (BEAKER) (test code = 752) RED CELL DISTRIBUTION WIDTH 14.0 % 11.6-14.4 (BEAKER) (test code = 412) PLATELET COUNT (BEAKER) (test 153 K/CU MM 150-450 code = 756) MEAN PLATELET VOLUME (BEAKER) 11.8 fL 9.4-12.4 (test code = 754) NUCLEATED RED BLOOD CELLS 0 /100 WBC 0-0 (BEAKER) (test code = 413) NEUTROPHILS RELATIVE PERCENT 65 % (BEAKER) (test code = 429) LYMPHOCYTES RELATIVE PERCENT 22 % (BEAKER) (test code = 430) MONOCYTES RELATIVE PERCENT 8 % (BEAKER) (test code = 431) EOSINOPHILS RELATIVE PERCENT 4 % (BEAKER) (test code = 432) BASOPHILS RELATIVE PERCENT 0 % (BEAKER) (test code = 437) NEUTROPHILS ABSOLUTE COUNT 4.53 K/ L 1.78-5.38 (BEAKER) (test code = 670) LYMPHOCYTES ABSOLUTE COUNT 1.52 K/ L 1.32-3.57 (BEAKER) (test code = 414) MONOCYTES ABSOLUTE COUNT (BEAKER) 0.57 K/ L 0.30-0.82 (test code = 415) EOSINOPHILS ABSOLUTE COUNT 0.30 K/ L 0.04-0.54 (BEAKER) (test code = 416) BASOPHILS ABSOLUTE COUNT (BEAKER) 0.03 K/ L 0.01-0.08 (test code = 417) IMMATURE GRANULOCYTES-RELATIVE 0 % 0-1 PERCENT (BEAKER) (test code = 2801) LACTIC ACID, [id number] 06:25:00 Test Item Value Reference Range Interpretation Comments LACTATE BLOOD VENOUS (2) (BEAKER) 0.80 mmol/L 0.50-2.20 (test code = 2872) Director Apparel ID - PIAYA LSpecimen slightly ictericLACTIC ACID, [id number] 00:07:00 Test Item Value Reference Range Interpretation Comments LACTATE BLOOD VENOUS (2) (BEAKER) 0.77 mmol/L 0.50-2.20 (test code = 2872) Director Apparel ID - ANETA LLACTIC ACID, [id number] 18:08:00 Test Item Value Reference Range Interpretation Comments LACTATE BLOOD VENOUS (2) (BEAKER) 1.35 mmol/L 0.50-2.20 (test code = 2872) Director Apparel ID - DBFL, UGI, WITH SMALL [id number] 11:59:00Upper GI with small bowel follow throughReason for exam:->SBOFINAL REPORT TECHNIQUE: Small bowel follow-through with water-soluble contrast INDICATION: SBO. COMPARISON: CT from 06/07/2020. FINDINGS: On the three hour films, water- soluble contrast is seen in the right colon. There are dilated loops of small bowel. However, contrast does extend into the right colon. The rectum is markedly dilated with stool. Stool fills the entire left and transverse colon. IMPRESSION: While there are dilated loops of proximal small bowel, contrast does makeit through to the colon. No complete or high-grade small bowel obstruction is present. There may be a low-grade, partial small bowel obstruction. There is a large amount of stool throughout the colon, especially in the rectum with a prominent sigmoid colon. Signed: Marcelino Murrell MDRepst[facility] Verified Date/Time: 06/08/2020 11:59:48 Reading Location: [address] Body Reading Room RAD, ABDOMEN/KUB, 1 VIEW [id number] 09:30:00Reason for exam:->NGT, SBOFINAL REPORT TECHNIQUE: Single View of the Abdomen. INDICATION: NGT, SBO. COMPARISON: KUB from 06/07/2020 FINDINGS/IMPRESSION: A NG tube has its tip over the gastric cardia with theproximal sidehole over the lower esophagus. Consider advancement by 8 cm. There is a large amount ofstool in the colon with a dilated loop of bowel in the mid abdomen which is most likely dilated sigmoid colon, likely due to impaction. Some curvilinear lucency in the sigmoid colon could be due to pneumatosis or adherent stool on the colonic wall. Close attention on follow-up imaging is recommended. Surgical carlos in the right abdomen. Signed: Marcelino Murrell MDReport Verified Date/Time: 06/08/2020 09:30:43 Reading Location: [facility] C013Y CT Body Reading Room PROTHROMBIN TIME/[id number] 04:30:00 Test Item Value Reference Range Interpretation Comments PROTIME (BEAKER) (test code = 15.9 seconds 11.9-14.2 H 759) INR (BEAKER) (test code = 370) 1.31 <=5.90 Effective 03/07/2019: PT Reference Range ChangeNew: 11.9-14.2 Previous: 11.7- 14.7RECOMMENDED COUMADIN/WARFARIN INR THERAPY RANGESSTANDARD DOSE: 2.0-3.0 Includes: PROPHYLAXIS for venous thrombosis, systemic embolization; TREATMENT for venous thrombosis and/or pulmonary embolus.HIGH RISK: Target INR is 2.5-3.5 for patients wiht mechanical heart valves.[id number] 04:09:00 Test Item Value Reference Range Interpretation Comments MAGNESIUM (BEAKER) (test code = 1.6 mg/dL 1.6-2.6 627) Director Apparel ID - PIAYA LBASIC METABOLIC [id number] 04:09:00 Test Item Value Reference Range Interpretation Comments SODIUM (BEAKER) 137 meq/L 136-145 (test code = 381) POTASSIUM (BEAKER) 4.0 meq/L 3.5-5.1 (test code = 379) CHLORIDE (BEAKER) 108 meq/L 98-107 H (test code = 382) CO2 (BEAKER) (test 23 meq/L 22-29 code = 355) BLOOD UREA NITROGEN 17 mg/dL 7-21 (BEAKER) (test code = 354) CREATININE (BEAKER) 1.34 mg/dL 0.57-1.25 H (test code = 358) GLUCOSE RANDOM 106 mg/dL 70-105 H (BEAKER) (test code = 652) CALCIUM (BEAKER) 8.9 mg/dL 8.4-10.2 (test code = 697) EGFR (BEAKER) (test 70 mL/min/1.73 ESTIMA JOANN GFR IS code = 1092) sq m NOT ACCURATE CREATININE CLEARANCE IN PREDICTING GLOMERULAR FILTRATION RATE . ESTIMATED GFR I S NOT APPLICABLE FOR DIALYSIS PATIEN TS. Director Apparel ID - ANETA LURINALYSIS W/ REFLEX URINE [id number] 03:52:00 Test Item Value Reference Range Interpretation Comments COLOR (BEAKER) (test code = 470) Yellow CLARITY (BEAKER) (test code = 469) Clear SPECIFIC GRAVITY UA (BEAKER) (test 1.022 1.001-1.035 code = 468) PH UA (BEAKER) (test code = 467) 6.0 5.0-8.0 PROTEIN UA (BEAKER) (test code = Negative Negative 464) GLUCOSE UA (BEAKER) (test code = Negative Negative 365) KETONES UA (BEAKER) (test code = Negative Negative 371) BILIRUBIN UA (BEAKER) (test code = Negative Negative 462) BLOOD UA (BEAKER) (test code = 461) Small Negative A NITRITE UA (BEAKER) (test code = Negative Negative 465) LEUKOCYTE ESTERASE UA (BEAKER) Negative Negative (test code = 466) UROBILINOGEN UA (BEAKER) (test code 0.2 mg/dL 0.2-1.0 = 463) RBC UA (BEAKER) (test code = 519) 106 /HPF WBC UA (BEAKER) (test code = 520) 6 /HPF HYALINE CASTS (BEAKER) (test code = 1 /LPF 514) SOURCE(BEAKER) (test code = 2795) Director Apparel ID - [auto]Director Apparel ID - techLACTIC ACID, [id number] 03:31:00 Test Item Value Reference Range Interpretation Comments LACTATE BLOOD VENOUS (2) (BEAKER) 0.52 mmol/L 0.50-2.20 (test code = 2872) Director Apparel ID - SANGITAHANS LCT, [id number] 00:01:00Unlisted Reason for Exam - Click Yes and Enter Reason Below->YesUnlisted Reason for Exam->patient with CF, history of obstructions - to better evaluateFINAL REPORT EXAM: CT of the abdomen and pelvis, without contrast CLINICAL HISTORY: Distal bowel obstruction suspected ()patient with CF, history of obstructions - to betterevaluate TECHNIQUE: CT of the abdomen and pelvis was performed without the intravenous administration of contrast. This exam was performed according to our departmental dose optimization program which includes automated exposure control, adjustment of the mA and/or kV according to patient's size and/or use of iterative reconstructive technique. COMPARISON: CT abdomen and pelvis 05/07/2020 FINDINGS: Please note study is limited due to lack of intravenous contrast. LOWER CHEST: Mild left lower and right middle lobe subsegmental atelectasis.LIVER: Within normal limits.BILE DUCTS: Within normal limits.GALL BLADDER: Within normal limits.PANCREAS: Fatty atrophySPLEEN: Within normal limits.ADRENALS: Within normal limits.KIDNEYS/URETERS: Punctate nonobstructing bilateral renal stones. No hydroureteronephrosis. URINARY BLADDER: Within normal limits.REPRODUCTIVE ORGANS: Within normal limits. BOWEL/MESENTERY: Status post right hemicolectomy. Large amount of retained stool in the colon. Multiple dilated fluid-filled small bowel loops which transition to decompressed small bowel compatible with a small bowel obstruction. Two transition points suggesting a closed-loop obstruction (coronal image 26 and 32 and axial images 40 and 44). Mild mural thickening of multiple small bowel loops which may represent bowel ischemia. No bowel pneumatosis. PERITONEUM/RETROPERITONEUM: No free air, free fluid or fluid collection. VESSELS: Within normal limits. LYMPH NODES: No abdominal or pelvic lymphadenopathy.SOFT TISSUES: Within normal limits.BONES: Within normal limits. IMPRESSION: Small bowel obstruction with closedloop morphology. Surgical evaluation is recommended. Mild mural thickening of multiple small bowel loops which may represent bowel ischemia. No bowel pneumatosis. Large amount of retained stool in the colon. No free air or fluid collection. Punctate nonobstructing bilateral renal stones. Pancreatic fatty atrophy. Discussed with Dr. Farah at approximately 11:52 PM 06/07/2020. Signed: Magno Carvajal MDReport Verified Date/Time: 06/08/2020 00:01:48 SARS-COV2/RT-PCR ([facility]) 2020-06-07 22:51:00 Test Item Value Reference Range Interpretation Comments SARS-COV2/RT-PCR (test code Negative Not Detected, Negative, = [id number]) See external report for linked test SARS-COV-[address] [facility] (test code = 6819074) Negative results do not preclude SARS-CoV-2 infection and should not be used as the sole basis for patient management decisions. Negative results must be combined with clinical observations, patient history, and epidemiological information. A false negative result may occur if a specimen is improperly collected, transported or handled.The limit of detection for this assay is 250 copies/mL.This SARS CoV-2 test is a rapid, real-time RT-PCR test intended for the qualitative detection of nucleic acid from SARS-CoV-2 in a nasopharyngeal swab specimen collected from individuals suspected of COVID-19 by their healthcare provider.This test has not been Food and Drug Administration (FDA) cleared or approved and has been authorized by FDA under an Emergency Use Authorization (EUA). This EUA will be effective until the declaration that circumstances exist justifying the authorization of the emergency use of in vitro diagnostic tests for detection and/or diagnosis of COVID-19 is terminated under Section 564(b)(2) of the Act or the EUA is revoked under Section 564(g) of the Act.Fact Sheet for Healthcare Pro viders:https://www.BAASBOX/Documents/Xpert%20Xpress%20SARS%20CoV-2/Fact%20Sh eets/302-3802%64DEHO-RTN-0%20HEALTHCARE%20PROVIDERS%20FACT%20SHEET.pdfFact Sheet for Healthcare Patients:https://www.S[employer].Kaboodle/Documents/Xpert%20Xpress%20SARS%20CoV-2/Fact%20Sheets/302-3801%20SARS-COV -2%20PATIENT%20FACT%20SHEET.pdfPerforming Laboratory:[facility], [place] [id number] 20:56:00 Test Item Value Reference Range Interpretation Comments LIPASE (BEAKER) (test code = 749) < U/L 8-78 L Director Apparel ID - DBBASIC METABOLIC [id number] 20:52:00 Test Item Value Reference Range Interpretation Comments SODIUM (BEAKER) 138 meq/L 136-145 (test code = 381) POTASSIUM (BEAKER) 5.1 meq/L 3.5-5.1 Specimen markedly (test code = 379) hemolyzed CHLORIDE (BEAKER) 106 meq/L 98-107 (test code = 382) CO2 (BEAKER) (test 24 meq/L 22-29 code = 355) BLOOD UREA NITROGEN 15 mg/dL 7-21 (BEAKER) (test code = 354) CREATININE (BEAKER) 1.58 mg/dL 0.57-1.25 H Specimen markedly (test code = 358) hemolyzed GLUCOSE RANDOM 91 mg/dL 70-105 (BEAKER) (test code = 652) CALCIUM (BEAKER) 9.4 mg/dL 8.4-10.2 (test code = 697) EGFR (BEAKER) (test 58 mL/min/1.73 ESTIMA JOANN GFR IS code = 1092) sq m NOT ACCURATE CREATININE CLEARANCE IN PREDICTING GLOMERULAR FILTRATION RATE . ESTIMATED GFR I S NOT APPLICABLE FOR DIALYSIS PATIEN TS. Director Apparel ID - DBHEPATIC FUNCTION [id number] 20:52:00 Test Item Value Reference Range Interpretation Comments TOTAL PROTEIN (BEAKER) 7.6 gm/dL 6.0-8.3 Speci men markedly (test code = 770) hemolyzed ALBUMIN (BEAKER) (test 4.1 g/dL 3.5-5.0 Speci men markedly code = 1145) hemolyzed BILIRUBIN TOTAL 1.3 mg/dL 0.2-1.2 H Specimen mar kedly (BEAKER) (test code = hemoly zed 377) BILIRUBIN DIRECT 0.4 mg/dL 0.1-0.5 Specimen ma rkedly (BEAKER) (test code = hemoly zed 706) ALKALINE PHOSPHATASE 82 U/L 40-150 (BEAKER) (test code = 346) AST (SGOT) (BEAKER) 36 U/L 5-34 H Specimen markedly (test code = 353) hemolyzed ALT (SGPT) (BEAKER) 26 U/L 6-55 Specimen markedly (test code = 347) hemolyzed Director Apparel ID - DBCBC W/PLT COUNT & AUTO [id number] 20:33:00 Test Item Value Reference Range Interpretation Comments WHITE BLOOD CELL COUNT (BEAKER) 7.7 K/ L 3.5-10.5 (test code = 775) RED BLOOD CELL COUNT (BEAKER) 3.99 M/ L 4.63-6.08 L (test code = 761) HEMOGLOBIN (BEAKER) (test code = 12.2 GM/DL 13.7-17.5 L 410) HEMATOCRIT (BEAKER) (test code = 36.7 % 40.1-51.0 L 411) MEAN CORPUSCULAR VOLUME (BEAKER) 92.0 fL 79.0-92.2 (test code = 753) MEAN CORPUSCULAR HEMOGLOBIN 30.6 pg 25.7-32.2 (BEAKER) (test code = 751) MEAN CORPUSCULAR HEMOGLOBIN CONC 33.2 GM/DL 32.3-36.5 (BEAKER) (test code = 752) RED CELL DISTRIBUTION WIDTH 14.0 % 11.6-14.4 (BEAKER) (test code = 412) PLATELET COUNT (BEAKER) (test 189 K/CU MM 150-450 code = 756) MEAN PLATELET VOLUME (BEAKER) 12.5 fL 9.4-12.4 H (test code = 754) NUCLEATED RED BLOOD CELLS 0 /100 WBC 0-0 (BEAKER) (test code = 413) NEUTROPHILS RELATIVE PERCENT 63 % (BEAKER) (test code = 429) LYMPHOCYTES RELATIVE PERCENT 22 % (BEAKER) (test code = 430) MONOCYTES RELATIVE PERCENT 10 % (BEAKER) (test code = 431) EOSINOPHILS RELATIVE PERCENT 4 % (BEAKER) (test code = 432) BASOPHILS RELATIVE PERCENT 1 % (BEAKER) (test code = 437) NEUTROPHILS ABSOLUTE COUNT 4.83 K/ L 1.78-5.38 (BEAKER) (test code = 670) LYMPHOCYTES ABSOLUTE COUNT 1.70 K/ L 1.32-3.57 (BEAKER) (test code = 414) MONOCYTES ABSOLUTE COUNT (BEAKER) 0.78 K/ L 0.30-0.82 (test code = 415) EOSINOPHILS ABSOLUTE COUNT 0.27 K/ L 0.04-0.54 (BEAKER) (test code = 416) BASOPHILS ABSOLUTE COUNT (BEAKER) 0.05 K/ L 0.01-0.08 (test code = 417) IMMATURE GRANULOCYTES-RELATIVE 0 % 0-1 PERCENT (BEAKER) (test code = 2801) RAD, ABDOMEN/KUB, 1 VIEW [id number] 20:11:00Reason for exam:->ABDOMINAL PAINReason for exam:->history of obstructionsShould this be performed at the bedside?->YesFINAL REPORT Abdomen one view Comparison: Abdominal radiograph 05/09/2020. Reason for exam: History of obstructions. Abdominal pain. Findings: Supine view of the abdomen demonstrates a large amount of retained stool in the colon and rectum. There is a a focally dilated bowel loop in the left lower quadrant which may represent dilated small bowel. There are surgical sutures in the right lower quadrant. The visualized lung bases are clear. The visualized osseous structures are unremarkable. Impression:Large amount of retained stool in the colon and rectum. Focally dilated loop of bowel in the left lower quadrant, which may represent a small bowel loop, which may be seen with an ileus or small bowel obstruction. A CT of the abdomen and pelvis would be helpful for further evaluation may be obtained as clinically warranted. Signed: Magno Carvajalort Verified Date/Time: 06/07/2020 20:11:37 RAD, ABDOMEN/KUB, 1 VIEW [id number] 15:31:00Reason for exam:->assess stool burdenFINAL REPORT CLINICAL HISTORY: assess stool burden TECHNIQUE: Supine abdomen COMPARISON: Abdominal CT 05/07/2020, plain film 10/22/2019 IMPRESSION: Right lower quadrant chain suturesand surgical clips are again seen. A few focally prominent loops of small bowel are again seen, espec ially in the right lower quadrant. There is mild stool in the colon. Free air and air-fluid levels are not definitively seen, but also cannot be excluded on the supine view. Signed: Murray Gomez Verified Date/Time: 05/09/2020 15:31:54 Reading Location: [facility] Radiology Reading Room CBC W/PLT COUNT & AUTO [id number] 06:57:00 Test Item Value Reference Range Interpretation Comments WHITE BLOOD CELL COUNT (BEAKER) 3.3 K/ L 3.5-10.5 L (test code = 775) RED BLOOD CELL COUNT (BEAKER) 3.62 M/ L 4.63-6.08 L (test code = 761) HEMOGLOBIN (BEAKER) (test code = 10.9 GM/DL 13.7-17.5 L 410) HEMATOCRIT (BEAKER) (test code = 33.2 % 40.1-51.0 L 411) MEAN CORPUSCULAR VOLUME (BEAKER) 91.7 fL 79.0-92.2 (test code = 753) MEAN CORPUSCULAR HEMOGLOBIN 30.1 pg 25.7-32.2 (BEAKER) (test code = 751) MEAN CORPUSCULAR HEMOGLOBIN CONC 32.8 GM/DL 32.3-36.5 (BEAKER) (test code = 752) RED CELL DISTRIBUTION WIDTH 13.2 % 11.6-14.4 (BEAKER) (test code = 412) PLATELET COUNT (BEAKER) (test 141 K/CU MM 150-450 L code = 756) MEAN PLATELET VOLUME (BEAKER) 11.0 fL 9.4-12.4 (test code = 754) NUCLEATED RED BLOOD CELLS 0 /100 WBC 0-0 (BEAKER) (test code = 413) NEUTROPHILS RELATIVE PERCENT 41 % (BEAKER) (test code = 429) LYMPHOCYTES RELATIVE PERCENT 37 % (BEAKER) (test code = 430) MONOCYTES RELATIVE PERCENT 17 % (BEAKER) (test code = 431) EOSINOPHILS RELATIVE PERCENT 6 % (BEAKER) (test code = 432) BASOPHILS RELATIVE PERCENT 1 % (BEAKER) (test code = 437) NEUTROPHILS ABSOLUTE COUNT 1.34 K/ L 1.78-5.38 L (BEAKER) (test code = 670) LYMPHOCYTES ABSOLUTE COUNT 1.20 K/ L 1.32-3.57 L (BEAKER) (test code = 414) MONOCYTES ABSOLUTE COUNT (BEAKER) 0.54 K/ L 0.30-0.82 (test code = 415) EOSINOPHILS ABSOLUTE COUNT 0.18 K/ L 0.04-0.54 (BEAKER) (test code = 416) BASOPHILS ABSOLUTE COUNT (BEAKER) 0.02 K/ L 0.01-0.08 (test code = 417) IMMATURE GRANULOCYTES-RELATIVE 0 % 0-1 PERCENT (BEAKER) (test code = 2801) [id number] 06:46:00 Test Item Value Reference Range Interpretation Comments MAGNESIUM (BEAKER) 1.5 mg/dL 1.6-2.6 L Specimen slightly (test code = 627) hemolyzed Director Apparel ID - [id number] 06:46:00 Test Item Value Reference Range Interpretation Comments PHOSPHORUS (BEAKER) 2.9 mg/dL 2.3-4.7 Specimen slightly (test code = 604) hemolyzed Director Apparel ID - EDASIBASIC METABOLIC [id number] 06:46:00 Test Item Value Reference Range Interpretation Comments SODIUM (BEAKER) 140 meq/L 136-145 (test code = 381) POTASSIUM (BEAKER) 3.8 meq/L 3.5-5.1 Specimen slightly (test code = 379) hemolyzed CHLORIDE (BEAKER) 110 meq/L 98-107 H (test code = 382) CO2 (BEAKER) (test 27 meq/L 22-29 code = 355) BLOOD UREA NITROGEN 7 mg/dL 7-21 (BEAKER) (test code = 354) CREATININE (BEAKER) 0.98 mg/dL 0.57-1.25 Specimen slightly (test code = 358) hemolyzed GLUCOSE RANDOM 96 mg/dL 70-105 (BEAKER) (test code = 652) CALCIUM (BEAKER) 8.3 mg/dL 8.4-10.2 L (test code = 697) EGFR (BEAKER) (test 101 mL/min/1.73 ESTIM ATED GFR IS code = 1092) sq m NOT ACCURATE CREATININE CLEARANCE IN PREDICTING GLOMERULAR FILTRATION RATE . ESTIMATED GFR I S NOT APPLICABLE FOR DIALYSIS PATIEN TS. Director Apparel ID - EDASIHEPATIC FUNCTION [id number] 06:46:00 Test Item Value Reference Range Interpretation Comments TOTAL PROTEIN (BEAKER) 5.6 gm/dL 6.0-8.3 L Speci men slightly (test code = 770) hemolyzed ALBUMIN (BEAKER) (test 3.2 g/dL 3.5-5.0 L Speci men slightly code = 1145) hemolyzed BILIRUBIN TOTAL 1.1 mg/dL 0.2-1.2 Specimen sli ghtly (BEAKER) (test code = hemoly zed 377) BILIRUBIN DIRECT 0.6 mg/dL 0.1-0.5 H Specimen sl ightly (BEAKER) (test code = hemoly zed 706) ALKALINE PHOSPHATASE 54 U/L 40-150 (BEAKER) (test code = 346) AST (SGOT) (BEAKER) 22 U/L 5-34 Specimen slightly (test code = 353) hemolyzed ALT (SGPT) (BEAKER) 12 U/L 6-55 Specimen slightly (test code = 347) hemolyzed Director Apparel ID - [id number] 10:38:00 Test Item Value Reference Range Interpretation Comments MAGNESIUM (BEAKER) 1.9 mg/dL 1.6-2.6 Specimen slightly (test code = 627) hemolyzed Director Apparel ID - [id number] 10:38:00 Test Item Value Reference Range Interpretation Comments PHOSPHORUS (BEAKER) 2.5 mg/dL 2.3-4.7 Specimen slightly (test code = 604) hemolyzed Director Apparel ID - NTPBASIC METABOLIC [id number] 10:38:00 Test Item Value Reference Range Interpretation Comments SODIUM (BEAKER) 136 meq/L 136-145 (test code = 381) POTASSIUM (BEAKER) 4.0 meq/L 3.5-5.1 Specimen slightly (test code = 379) hemolyzed CHLORIDE (BEAKER) 108 meq/L 98-107 H (test code = 382) CO2 (BEAKER) (test 23 meq/L 22-29 code = 355) BLOOD UREA NITROGEN 9 mg/dL 7-21 (BEAKER) (test code = 354) CREATININE (BEAKER) 1.12 mg/dL 0.57-1.25 Specimen slightly (test code = 358) hemolyzed GLUCOSE RANDOM 155 mg/dL 70-105 H (BEAKER) (test code = 652) CALCIUM (BEAKER) 8.3 mg/dL 8.4-10.2 L (test code = 697) EGFR (BEAKER) (test 86 mL/min/1.73 ESTIMA JOANN GFR IS code = 1092) sq m NOT ACCURATE CREATININE CLEARANCE IN PREDICTING GLOMERULAR FILTRATION RATE . ESTIMATED GFR I S NOT APPLICABLE FOR DIALYSIS PATIEN TS. Director Apparel ID - NTPHEPATIC FUNCTION [id number] 10:38:00 Test Item Value Reference Range Interpretation Comments TOTAL PROTEIN (BEAKER) 6.1 gm/dL 6.0-8.3 Speci men slightly (test code = 770) hemolyzed ALBUMIN (BEAKER) (test 3.5 g/dL 3.5-5.0 Speci men slightly code = 1145) hemolyzed BILIRUBIN TOTAL 1.2 mg/dL 0.2-1.2 Specimen sli ghtly (BEAKER) (test code = hemoly zed 377) BILIRUBIN DIRECT 0.5 mg/dL 0.1-0.5 Specimen sl ightly (BEAKER) (test code = hemoly zed 706) ALKALINE PHOSPHATASE 59 U/L 40-150 (BEAKER) (test code = 346) AST (SGOT) (BEAKER) 21 U/L 5-34 Specimen slightly (test code = 353) hemolyzed ALT (SGPT) (BEAKER) 14 U/L 6-55 Specimen slightly (test code = 347) hemolyzed Director Apparel ID - NTPCBC W/PLT COUNT & AUTO [id number] 10:33:00 Test Item Value Reference Range Interpretation Comments WHITE BLOOD CELL COUNT (BEAKER) 3.1 K/ L 3.5-10.5 L (test code = 775) RED BLOOD CELL COUNT (BEAKER) 3.83 M/ L 4.63-6.08 L (test code = 761) HEMOGLOBIN (BEAKER) (test code = 11.8 GM/DL 13.7-17.5 L 410) HEMATOCRIT (BEAKER) (test code = 35.5 % 40.1-51.0 L 411) MEAN CORPUSCULAR VOLUME (BEAKER) 92.7 fL 79.0-92.2 H (test code = 753) MEAN CORPUSCULAR HEMOGLOBIN 30.8 pg 25.7-32.2 (BEAKER) (test code = 751) MEAN CORPUSCULAR HEMOGLOBIN CONC 33.2 GM/DL 32.3-36.5 (BEAKER) (test code = 752) RED CELL DISTRIBUTION WIDTH 13.2 % 11.6-14.4 (BEAKER) (test code = 412) PLATELET COUNT (BEAKER) (test 125 K/CU MM 150-450 L code = 756) MEAN PLATELET VOLUME (BEAKER) 11.5 fL 9.4-12.4 (test code = 754) NUCLEATED RED BLOOD CELLS 0 /100 WBC 0-0 (BEAKER) (test code = 413) NEUTROPHILS RELATIVE PERCENT 47 % (BEAKER) (test code = 429) LYMPHOCYTES RELATIVE PERCENT 28 % (BEAKER) (test code = 430) MONOCYTES RELATIVE PERCENT 19 % (BEAKER) (test code = 431) EOSINOPHILS RELATIVE PERCENT 5 % (BEAKER) (test code = 432) BASOPHILS RELATIVE PERCENT 1 % (BEAKER) (test code = 437) NEUTROPHILS ABSOLUTE COUNT 1.47 K/ L 1.78-5.38 L (BEAKER) (test code = 670) LYMPHOCYTES ABSOLUTE COUNT 0.87 K/ L 1.32-3.57 L (BEAKER) (test code = 414) MONOCYTES ABSOLUTE COUNT (BEAKER) 0.60 K/ L 0.30-0.82 (test code = 415) EOSINOPHILS ABSOLUTE COUNT 0.14 K/ L 0.04-0.54 (BEAKER) (test code = 416) BASOPHILS ABSOLUTE COUNT (BEAKER) 0.02 K/ L 0.01-0.08 (test code = 417) IMMATURE GRANULOCYTES-RELATIVE 0 % 0-1 PERCENT (BEAKER) (test code = 2801) SARS-COV2/RT-PCR ([facility])2020-05-07 11:54:00 Test Item Value Reference Range Interpretation Comments SARS-COV2/RT-PCR (test Negative Not Detected, Negative, code = 0834135) See external report for linked test SARS-COV-2 PERFORMING LAB [facility] (test code = 3493898) Negative result for this test determines that SARS-CoV-2 RNA was not present in the specimen above the Limit of Detection (LOD). However, Negative results do not preclude SARS-CoV-2 infection and should not be used as the sole basis for treatment or patient management decisions. Negative results must be combined with clinical observations, patient history, and epidemiological information. A false negative result may occur if a specimen is improperly collected, transported or handled. A false negative result should be considered if patient's recent exposures or clinical presentation indicate that COVID-19 (SARS-CoV-2) is likely and diagnostic tests for other causes of illness are negative. Re-testing should be considered in cases of suspected false negatives.The limit of detection for this assay is 800 copies/mL.This SARS CoV-2 test is a real-time RT-PCR test intended for the qualitative detection of nucleic acid from SARS-CoV-2 in a nasopharyngeal swab specimen collected from individuals suspected of COVID-19 by their healthcare provider.This test has not been Food and Drug Administration (FDA) cleared or approved. This is a modified version of an approved Emergency Use Authorization (EUA) and is in the process of review by the FDA. Once authorized by the FDA, the issued EUA will be effective until the declaration that circumstances exist justifying the authorization of the emergency use ofin vitro diagnostic tests for detection and/or diagnosis of COVID-19 is terminated under Section 564(b)(2) of the Act or the EUA is revoked under Section 564(g) of the Act.Fact Sheet for Healthcare Prov iders:https://www.[employer]/sites/default/files/product/documents/Fact_Sheet_HC _Oehvmeltb_Qamk_ACVI-OkF-7.pdfFact Sheet for Healthcare Patients:https://www.[employer]/sites/default/files/product/docume nts/Wbov_Csyiy_Zpvpwinl_Wukx_EBBY-TaV-8.pdfPerforming Laboratory:[facility], [place] [id number] 10:19:00 Test Item Value Reference Range Interpretation Comments MAGNESIUM (BEAKER) (test code = 1.3 mg/dL 1.6-2.6 L 627) Director Apparel ID - PIAYA LBASIC METABOLIC [id number] 10:19:00 Test Item Value Reference Range Interpretation Comments SODIUM (BEAKER) 135 meq/L 136-145 L (test code = 381) POTASSIUM (BEAKER) 3.8 meq/L 3.5-5.1 (test code = 379) CHLORIDE (BEAKER) 107 meq/L 98-107 (test code = 382) CO2 (BEAKER) (test 25 meq/L 22-29 code = 355) BLOOD UREA NITROGEN 16 mg/dL 7-21 (BEAKER) (test code = 354) CREATININE (BEAKER) 1.28 mg/dL 0.57-1.25 H (test code = 358) GLUCOSE RANDOM 94 mg/dL 70-105 (BEAKER) (test code = 652) CALCIUM (BEAKER) 8.3 mg/dL 8.4-10.2 L (test code = 697) EGFR (BEAKER) (test 74 mL/min/1.73 ESTIMA JOANN GFR IS code = 1092) sq m NOT ACCURATE CREATININE CLEARANCE IN PREDICTING GLOMERULAR FILTRATION RATE . ESTIMATED GFR I S NOT APPLICABLE FOR DIALYSIS PATIEN TS. Director Apparel ID - PIAYA LHEPATIC FUNCTION [id number] 10:19:00 Test Item Value Reference Range Interpretation Comments TOTAL PROTEIN (BEAKER) (test code = 6.0 gm/dL 6.0-8.3 770) ALBUMIN (BEAKER) (test code = 1145) 3.6 g/dL 3.5-5.0 BILIRUBIN TOTAL (BEAKER) (test code 1.7 mg/dL 0.2-1.2 H = 377) BILIRUBIN DIRECT (BEAKER) (test 0.3 mg/dL 0.1-0.5 code = 706) ALKALINE PHOSPHATASE (BEAKER) (test 63 U/L 40-150 code = 346) AST (SGOT) (BEAKER) (test code = 13 U/L 5-34 353) ALT (SGPT) (BEAKER) (test code = 13 U/L 6-55 347) Director Apparel ID - PIHANS LCBC W/PLT COUNT & AUTO [id number] 10:00:00 Test Item Value Reference Range Interpretation Comments WHITE BLOOD CELL COUNT (BEAKER) 3.7 K/ L 3.5-10.5 (test code = 775) RED BLOOD CELL COUNT (BEAKER) 3.78 M/ L 4.63-6.08 L (test code = 761) HEMOGLOBIN (BEAKER) (test code = 11.5 GM/DL 13.7-17.5 L 410) HEMATOCRIT (BEAKER) (test code = 34.9 % 40.1-51.0 L 411) MEAN CORPUSCULAR VOLUME (BEAKER) 92.3 fL 79.0-92.2 H (test code = 753) MEAN CORPUSCULAR HEMOGLOBIN 30.4 pg 25.7-32.2 (BEAKER) (test code = 751) MEAN CORPUSCULAR HEMOGLOBIN CONC 33.0 GM/DL 32.3-36.5 (BEAKER) (test code = 752) RED CELL DISTRIBUTION WIDTH 13.2 % 11.6-14.4 (BEAKER) (test code = 412) PLATELET COUNT (BEAKER) (test 139 K/CU MM 150-450 L code = 756) MEAN PLATELET VOLUME (BEAKER) 10.9 fL 9.4-12.4 (test code = 754) NUCLEATED RED BLOOD CELLS 0 /100 WBC 0-0 (BEAKER) (test code = 413) NEUTROPHILS RELATIVE PERCENT 47 % (BEAKER) (test code = 429) LYMPHOCYTES RELATIVE PERCENT 31 % (BEAKER) (test code = 430) MONOCYTES RELATIVE PERCENT 20 % (BEAKER) (test code = 431) EOSINOPHILS RELATIVE PERCENT 2 % (BEAKER) (test code = 432) BASOPHILS RELATIVE PERCENT 1 % (BEAKER) (test code = 437) NEUTROPHILS ABSOLUTE COUNT 1.72 K/ L 1.78-5.38 L (BEAKER) (test code = 670) LYMPHOCYTES ABSOLUTE COUNT 1.13 K/ L 1.32-3.57 L (BEAKER) (test code = 414) MONOCYTES ABSOLUTE COUNT (BEAKER) 0.72 K/ L 0.30-0.82 (test code = 415) EOSINOPHILS ABSOLUTE COUNT 0.08 K/ L 0.04-0.54 (BEAKER) (test code = 416) BASOPHILS ABSOLUTE COUNT (BEAKER) 0.02 K/ L 0.01-0.08 (test code = 417) IMMATURE GRANULOCYTES-RELATIVE 0 % 0-1 PERCENT (BEAKER) (test code = 2801) CT, [id number] 02:02:00FINAL REPORT TECHNIQUE: CT of the abdomen and pelvis WITH intravenous contrast and WITHOUT oral contrast. Dose modulation, iterative reconstruction, and/or weight-based adjustment of the mA/kV was utilized to reduce the radiation dose to as low as reasonably achievable. INDICATION: Abdominal pain, acute, nonlocalized. History of cystic fibrosis COMPARISON: 04/17/2020, 10/19/2019. FINDINGS: LOWER THORAX: Unremarkable. HEPATOBILIARY: No focal hepatic lesions. Gallbladder is mildly prominent with transverse diameter 4.2 cm similar to prior. No biliary ductal dilatation.SPLEEN: No splenomegaly.PANCREAS: Fatty atrophied. ADRENALS: No adrenal nodules.KIDNEYS/URETERS: No hydronephrosis,obstructing stones, or masses. There are bilateral nonobstructing renal stones up to 0.6 cm within the lower pole the right kidney and 0.8 cm within the lower left of the left kidney.PELVIC ORGANS/BLADDER: Unremarkable. PERITONEUM/RETROPERITONEUM: No free air or fluid.LYMPH NODES: No lymphadenopathy.VESSELS: Unremarkable. GI TRACT: No bowel wall thickening or distention of the stomach or duodenum. There are several loops of distal small bowel distended with fecal matter and thickened zaman to 0.5 cm. Moderate retained fecal matter throughout the colon. Small bowel is distended to 4.1 cm. No pneumatosis intestinalis or evidence of ischemia. Postsurgical changes at the cecum suggestive of prior appendectomy. BONES AND SOFT TISSUES: Unremarkable. IMPRESSION: 1. 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 There is moderate ileal bowel wall thickening which is nonspecific and may be chronic versus superimpo sed enteritis in the correct clinical setting.2. No obstructing bilateral nephrolithiasis.3. Fatty atrophy pancreas. Signed: Carmelo Mosley MDReport Verified Date/Time: 05/07/2020 02:02:10 Electronicallysigned by: CARMELO MOSLEY MD on 05/07/2020 02:02 AMURINALYSIS [id number] 01:08:00 Test Item Value Reference Range Interpretation Comments RBC UA (BEAKER) (test code = 519) < /HPF WBC UA (BEAKER) (test code = 520) 3 /HPF BACTERIA (BEAKER) (test code = Rare 517) MUCUS (BEAKER) (test code = 1574) Occasional SQUAMOUS EPITHELIAL (BEAKER) (test < /HPF code = 516) HYALINE CASTS (BEAKER) (test code 1 /LPF = 514) Director Apparel ID - techU/S, ABDOMINAL, [id number] 00:44:00Abdomen limited area? Add comment if clarification is needed.->Gall BladderReason for exam:->ABDOMINAL PAINFINAL REPORT TECHNIQUE: Grayscale ultrasound of the right abdomen. INDICATION: ABDOMINAL PAIN. COMPARISON: 04/17/2020. FINDINGS: MIDLINE VASCULATURE: The visualized inferior vena cava is patent. Portal vein is patent. The maximum visualized aortic diameter is 2.0 cm. LIVER: Smooth liver contour. No focal lesions. The main portal vein measures 1.2 cm. BILIARY:Gallbladder: No gallstones or sludge. No gallbladder wall thickening, pericholecystic fluid, or distention. Negative sonographic Puckett sign.Common bile duct measures 0.4 cm, within normal limits. No intrahepatic biliary ductal dilatation. PANCREAS: Incompletely visualized due to overlying bowel gas. PERITONEUM: No free fluid. RIGHT KIDNEY: Normal in size. No hydronephrosis. No sonographically evident solid mass lesion. IMPR ESSION:Unremarkable ultrasound of the right upper quadrant. No finding to account for abdominal pain. Signed: Carmelo Mosley MDReport Verified Date/Time: 05/07/2020 00:44:38 URINALYSIS WITH MICROSCOPIC IF [id number] 00:38:00 Test Item Value Reference Range Interpretation Comments COLOR (BEAKER) (test code = 470) Yellow CLARITY (BEAKER) (test code = 469) Clear SPECIFIC GRAVITY UA (BEAKER) (test 1.025 1.001-1.035 code = 468) PH UA (BEAKER) (test code = 467) 5.5 5.0-8.0 PROTEIN UA (BEAKER) (test code = 10 mg/dL Negative A 464) GLUCOSE UA (BEAKER) (test code = Negative Negative 365) KETONES UA (BEAKER) (test code = Negative Negative 371) BILIRUBIN UA (BEAKER) (test code = Negative Negative 462) BLOOD UA (BEAKER) (test code = 461) Negative Negative NITRITE UA (BEAKER) (test code = Negative Negative 465) LEUKOCYTE ESTERASE UA (BEAKER) Trace Negative A (test code = 466) UROBILINOGEN UA (BEAKER) (test code 0.2 mg/dL 0.2-1.0 = 463) SOURCE(BEAKER) (test code = 2795) Director Apparel ID - [auto]Director Apparel ID - [id number] 00:23:00 Test Item Value Reference Range Interpretation Comments LIPASE (BEAKER) (test code = 749) < U/L 8-78 L Director Apparel ID - PIAYA LBASIC METABOLIC [id number] 00:20:00 Test Item Value Reference Range Interpretation Comments SODIUM (BEAKER) 136 meq/L 136-145 (test code = 381) POTASSIUM (BEAKER) 4.0 meq/L 3.5-5.1 (test code = 379) CHLORIDE (BEAKER) 105 meq/L 98-107 (test code = 382) CO2 (BEAKER) (test 25 meq/L 22-29 code = 355) BLOOD UREA NITROGEN 19 mg/dL 7-21 (BEAKER) (test code = 354) CREATININE (BEAKER) 1.38 mg/dL 0.57-1.25 H (test code = 358) GLUCOSE RANDOM 107 mg/dL 70-105 H (BEAKER) (test code = 652) CALCIUM (BEAKER) 9.6 mg/dL 8.4-10.2 (test code = 697) EGFR (BEAKER) (test 68 mL/min/1.73 ESTIMA JOANN GFR IS code = 1092) sq m NOT ACCURATE CREATININE CLEARANCE IN PREDICTING GLOMERULAR FILTRATION RATE . ESTIMATED GFR I S NOT APPLICABLE FOR DIALYSIS PATIEN TS. Director Apparel ID - ANETA LHEPATIC FUNCTION [id number] 00:20:00 Test Item Value Reference Range Interpretation Comments TOTAL PROTEIN (BEAKER) (test code = 7.7 gm/dL 6.0-8.3 770) ALBUMIN (BEAKER) (test code = 1145) 4.6 g/dL 3.5-5.0 BILIRUBIN TOTAL (BEAKER) (test code 1.6 mg/dL 0.2-1.2 H = 377) BILIRUBIN DIRECT (BEAKER) (test 0.7 mg/dL 0.1-0.5 H code = 706) ALKALINE PHOSPHATASE (BEAKER) (test 82 U/L 40-150 code = 346) AST (SGOT) (BEAKER) (test code = 18 U/L 5-34 353) ALT (SGPT) (BEAKER) (test code = 20 U/L 6-55 347) Director Apparel ID - ANETA LLACTIC ACID, [id number] 23:58:00 Test Item Value Reference Range Interpretation Comments LACTATE BLOOD VENOUS 1.45 mmol/L 0.50-2.20 Specime n slightly (2) (BEAKER) (test hemolyzed code = 9354) Director Apparel ID Onofre CORNELL LCBC W/PLT COUNT & AUTO [id number] 23:46:00 Test Item Value Reference Range Interpretation Comments WHITE BLOOD CELL COUNT (BEAKER) 8.4 K/ L 3.5-10.5 (test code = 775) RED BLOOD CELL COUNT (BEAKER) 4.61 M/ L 4.63-6.08 L (test code = 761) HEMOGLOBIN (BEAKER) (test code = 14.3 GM/DL 13.7-17.5 410) HEMATOCRIT (BEAKER) (test code = 42.9 % 40.1-51.0 411) MEAN CORPUSCULAR VOLUME (BEAKER) 93.1 fL 79.0-92.2 H (test code = 753) MEAN CORPUSCULAR HEMOGLOBIN 31.0 pg 25.7-32.2 (BEAKER) (test code = 751) MEAN CORPUSCULAR HEMOGLOBIN CONC 33.3 GM/DL 32.3-36.5 (BEAKER) (test code = 752) RED CELL DISTRIBUTION WIDTH 13.0 % 11.6-14.4 (BEAKER) (test code = 412) PLATELET COUNT (BEAKER) (test 168 K/CU MM 150-450 code = 756) MEAN PLATELET VOLUME (BEAKER) 11.4 fL 9.4-12.4 (test code = 754) NUCLEATED RED BLOOD CELLS 0 /100 WBC 0-0 (BEAKER) (test code = 413) NEUTROPHILS RELATIVE PERCENT 67 % (BEAKER) (test code = 429) LYMPHOCYTES RELATIVE PERCENT 16 % (BEAKER) (test code = 430) MONOCYTES RELATIVE PERCENT 14 % (BEAKER) (test code = 431) EOSINOPHILS RELATIVE PERCENT 2 % (BEAKER) (test code = 432) BASOPHILS RELATIVE PERCENT 0 % (BEAKER) (test code = 437) NEUTROPHILS ABSOLUTE COUNT 5.61 K/ L 1.78-5.38 H (BEAKER) (test code = 670) LYMPHOCYTES ABSOLUTE COUNT 1.37 K/ L 1.32-3.57 (BEAKER) (test code = 414) MONOCYTES ABSOLUTE COUNT (BEAKER) 1.20 K/ L 0.30-0.82 H (test code = 415) EOSINOPHILS ABSOLUTE COUNT 0.15 K/ L 0.04-0.54 (BEAKER) (test code = 416) BASOPHILS ABSOLUTE COUNT (BEAKER) 0.01 K/ L 0.01-0.08 (test code = 417) IMMATURE GRANULOCYTES-RELATIVE 0 % 0-1 PERCENT (BEAKER) (test code = 2801) CF RESPIRATORY [id number] 16:25:00 Test Item Value Reference Range Interpretation Comments CULTURE (BEAKER) (test ESCHERICHIA COLI A 2 + Escherichia code = 1095) coli Amikacin (test code = S 1) Ampicillin + Sulbactam S (test code = 6) Aztreonam (test code = S 32) Cefepime (test code = S 51) Cefoxitin (test code = S 68) Ceftazidime (test code S = 27) Ceftriaxone (test code S = 52) Ertapenem (test code = S 38) Gentamicin (test code S = 18) Levofloxacin (test R code = 22) Meropenem (test code = S 34) Nitrofurantoin (test S code = 23) Tetracycline (test S code = 2) Tobramycin (test code S = 25) Trimethoprim + S Sulfamethoxazole (test code = 47) CULTURE (BEAKER) (test A 2+ Ps eudomonas code = 1095) aeruginosa CULTURE (BEAKER) (test PSEUDOMONAS A 2+ Ps eudomonas code = 1095) AERUGINOSA aeruginosa (Mucoid-phenoty p e) Amikacin (test code = Susceptible 0-16 S 1) , Resistant <0 or >16 Aztreonam (test code = Susceptible 0-8 S 32) , Resistant <0 or >8 Cefepime (test code = Susceptible 0-8 S 51) , Resistant <0 or >8 Ceftazidime (test code Susceptible 0-8 S = 27) , Resistant <0 or >8 Ciprofloxacin (test Susceptible R code = 7) 0-0.5 , Resistant <0 or >.5 Gentamicin (test code Susceptible 0-4 S = 18) , Resistant <0 or >4 Imipenem (test code = Susceptible 0-2 S 19) , Resistant <0 or >2 Levofloxacin (test Susceptible 0-1 R code = 22) , Resistant <0 or >1 Meropenem (test code = Susceptible 0-2 S 34) , Resistant <0 or >2 Piperacillin (test Susceptible 0-16 S code = 24) , Resistant <0 or >16 Piperacillin + Susceptible 0-16 S Tazobactam (test code , Resistant <0 = 29) or >16 Tobramycin (test code Susceptible 0-4 S = 25) , Resistant <0 or >4 3+ Normal respiratory maria del carmen presentCT, [id number] 10:37:00FINAL REPORT ABDOMINAL AND PELVIS CT DATED 04/17/2020 COMPARISON: October 19, 2019 CLINICAL INFORMATION: RLQ pain TECHNIQUE: Axial images of the abdomen and pelvis were obtained fromdiaphragm to the pubic symphysis without GI or intravenous contrast. This exam was performed according to our departmental dose-optimization program, which includes automated exposure control, adjustment of the mA and/or kV according to patient size and/or use of interactive reconstruction technique. COMMENT: Liver and spleen are normal in size without focal abnormality. Gallbladder is distended. No gallstone or biliary dilatation is noted. Pancreas is somewhat fatty replaced. The adrenals are unremarkable. Both kidneys are normal in size. 3 stones are seen in the left kidney measuring up to 4 mm in size. A 1 mm and 3 mm stones are seen in the right kidney. A 4 mm stone is seen in the distal left ureter in the region of the ureteral meatus. There is mild left hydronephrosis and hydroureter. Prostate is normal in size. The urinary bladder is contracted. The small and large bowel are suboptimally e valuated secondary to lack of GI and intravenous contrast. No small or large bowel dilatation is seen. Appendix is not visualized. No mass, adenopathy or ascites is present. IMPRESSION: 1. Atrophic pancreas with fatty replacement.2. Bilateral renal stones and distal left ureteral stone with mild left h ydronephrosis and hydroureter. Signed: Carmelo Tierney MDReport Verified Date/Time: 04/17/2020 10:37:08 Reading Location: [address] Body Reading Room URINALYSIS W/ REFLEX URINE [id number] 09:19:00 Test Item Value Reference Range Interpretation Comments COLOR (BEAKER) (test code = 470) Yellow CLARITY (BEAKER) (test code = 469) Clear SPECIFIC GRAVITY UA (BEAKER) (test 1.016 1.001-1.035 code = 468) PH UA (BEAKER) (test code = 467) 5.5 5.0-8.0 PROTEIN UA (BEAKER) (test code = Negative Negative 464) GLUCOSE UA (BEAKER) (test code = Negative Negative 365) KETONES UA (BEAKER) (test code = Negative Negative 371) BILIRUBIN UA (BEAKER) (test code = Negative Negative 462) BLOOD UA (BEAKER) (test code = 461) Moderate Negative A NITRITE UA (BEAKER) (test code = Negative Negative 465) LEUKOCYTE ESTERASE UA (BEAKER) Negative Negative (test code = 466) UROBILINOGEN UA (BEAKER) (test code 0.2 mg/dL 0.2-1.0 = 463) RBC UA (BEAKER) (test code = 519) 9 /HPF WBC UA (BEAKER) (test code = 520) < /HPF SQUAMOUS EPITHELIAL (BEAKER) (test < /HPF code = 516) HYALINE CASTS (BEAKER) (test code = 1 /LPF 514) SOURCE(BEAKER) (test code = 2795) Director Apparel ID - [auto]Director Apparel ID - [id number] 09:14:00 Test Item Value Reference Range Interpretation Comments LIPASE (BEAKER) (test code = 749) < U/L 8-78 L Director Apparel ID - GALAPBASIC METABOLIC [id number] 08:36:00 Test Item Value Reference Range Interpretation Comments SODIUM (BEAKER) 137 meq/L 136-145 (test code = 381) POTASSIUM (BEAKER) 3.5 meq/L 3.5-5.1 (test code = 379) CHLORIDE (BEAKER) 108 meq/L 98-107 H (test code = 382) CO2 (BEAKER) (test 23 meq/L 22-29 code = 355) BLOOD UREA NITROGEN 17 mg/dL 7-21 (BEAKER) (test code = 354) CREATININE (BEAKER) 1.36 mg/dL 0.57-1.25 H (test code = 358) GLUCOSE RANDOM 135 mg/dL 70-105 H (BEAKER) (test code = 652) CALCIUM (BEAKER) 9.2 mg/dL 8.4-10.2 (test code = 697) EGFR (BEAKER) (test 69 mL/min/1.73 ESTIMA JOANN GFR IS code = 1092) sq m NOT ACCURATE CREATININE CLEARANCE IN PREDICTING GLOMERULAR FILTRATION RATE . ESTIMATED GFR I S NOT APPLICABLE FOR DIALYSIS PATIEN TS. Director Apparel ID - GALAPHEPATIC FUNCTION [id number] 08:36:00 Test Item Value Reference Range Interpretation Comments TOTAL PROTEIN (BEAKER) (test code = 6.6 gm/dL 6.0-8.3 770) ALBUMIN (BEAKER) (test code = 1145) 4.0 g/dL 3.5-5.0 BILIRUBIN TOTAL (BEAKER) (test code 1.3 mg/dL 0.2-1.2 H = 377) BILIRUBIN DIRECT (BEAKER) (test 0.6 mg/dL 0.1-0.5 H code = 706) ALKALINE PHOSPHATASE (BEAKER) (test 96 U/L 40-150 code = 346) AST (SGOT) (BEAKER) (test code = 26 U/L 5-34 353) ALT (SGPT) (BEAKER) (test code = 32 U/L 6-55 347) Director Apparel ID - GALAPCBC W/PLT COUNT & AUTO [id number] 08:26:00 Test Item Value Reference Range Interpretation Comments WHITE BLOOD CELL COUNT (BEAKER) 11.1 K/ L 3.5-10.5 H (test code = 775) RED BLOOD CELL COUNT (BEAKER) 4.27 M/ L 4.63-6.08 L (test code = 761) HEMOGLOBIN (BEAKER) (test code = 13.1 GM/DL 13.7-17.5 L 410) HEMATOCRIT (BEAKER) (test code = 39.6 % 40.1-51.0 L 411) MEAN CORPUSCULAR VOLUME (BEAKER) 92.7 fL 79.0-92.2 H (test code = 753) MEAN CORPUSCULAR HEMOGLOBIN 30.7 pg 25.7-32.2 (BEAKER) (test code = 751) MEAN CORPUSCULAR HEMOGLOBIN CONC 33.1 GM/DL 32.3-36.5 (BEAKER) (test code = 752) RED CELL DISTRIBUTION WIDTH 12.7 % 11.6-14.4 (BEAKER) (test code = 412) PLATELET COUNT (BEAKER) (test 173 K/CU MM 150-450 code = 756) MEAN PLATELET VOLUME (BEAKER) 11.1 fL 9.4-12.4 (test code = 754) NUCLEATED RED BLOOD CELLS 0 /100 WBC 0-0 (BEAKER) (test code = 413) NEUTROPHILS RELATIVE PERCENT 74 % (BEAKER) (test code = 429) LYMPHOCYTES RELATIVE PERCENT 15 % (BEAKER) (test code = 430) MONOCYTES RELATIVE PERCENT 8 % (BEAKER) (test code = 431) EOSINOPHILS RELATIVE PERCENT 3 % (BEAKER) (test code = 432) BASOPHILS RELATIVE PERCENT 0 % (BEAKER) (test code = 437) NEUTROPHILS ABSOLUTE COUNT 8.15 K/ L 1.78-5.38 H (BEAKER) (test code = 670) LYMPHOCYTES ABSOLUTE COUNT 1.67 K/ L 1.32-3.57 (BEAKER) (test code = 414) MONOCYTES ABSOLUTE COUNT (BEAKER) 0.89 K/ L 0.30-0.82 H (test code = 415) EOSINOPHILS ABSOLUTE COUNT 0.31 K/ L 0.04-0.54 (BEAKER) (test code = 416) BASOPHILS ABSOLUTE COUNT (BEAKER) 0.04 K/ L 0.01-0.08 (test code = 417) IMMATURE GRANULOCYTES-RELATIVE 0 % 0-1 PERCENT (BEAKER) (test code = 2801) HEPATIC FUNCTION [id number] 10:19:43 Test Item Value Reference Range Interpretation Comments PROTEIN TOTAL (test See_Comment [Automa joann message] The code = 2885-2) system which generated this result tra nsmitted reference range : 6.1 - 8.3 G/DL. The r eference range was not u sed to interpret this result as normal/abnormal . ALBUMIN (test code = See_Comment [Autom ated message] The 1751-04) system which ge nerated this result tra nsmitted reference range : 3.5 - 5.2 G/DL. The r eference range was not u sed to interpret this result as normal/abnormal . BILIRUBIN TOTAL (test See_Comment [Auto mated message] The code = 1975-2) system which generated this result tra nsmitted reference range : <=1.2 MG/DL. The refe rence range was not u sed to interpret this result as normal/abnormal . BILIRUBIN DIRECT (test See_Comment [Aut omated message] The code = 7119636) system which generated this result tra nsmitted reference range : 0.0 - 0.3 MG/DL. The reference range was not u sed to interpret this result as normal/abnormal . ALKALINE PHOSPHATASE 118 U/L 40-119 (test code = 6768-6) AST (SGOT) (test code 27 U/L 9-50 = 1920-8) ALT (SGPT) (test code 29 U/L 5-50 Unles s Otherwise = 1742-6) Indicated, All Testing Performed At: [facility], [address] [place] [id number] [facility]ory Director: Graham Mendoza M.D. CLIA Number [id number] [place]. [id number] [facility]2019-12-12 19:00:00Oksana Goddard NP 12/18/2019 12:20 PMPlease see graphic report for final interpretation. Date of testDate of test: 12/12/[id number]: 2.27 LFEV1 % EXP: 63 %FVCFVC: 3.5 LFVC % EXPECT: 79 %FEV1 / FVCFEV1 / FVC: 0.72 %FEV1 / FVC % EXP: 89 %FEFFEF 25-75%: 1.5 l/minFEF % EXPEC: 41 %[facility] [id number] 12:01:00 Test Item Value Reference Interpretation Comments Range CULTURE (BEAKER) PSEUDOMONAS A 4+ Pseudomo kelli (test code = 1095) AERUGINOSA aeruginos a (MUCOID-PHENOTYPE) (Mucoid-p henotype) Amikacin (test code Susceptible S = 1) 0-16 , Resistant <0 or >16 Aztreonam (test Susceptible S code = 32) 0-8 , Resistant <0 or >8 Cefepime (test code Susceptible S = 51) 0-8 , Resistant <0 or >8 Ceftazidime (test Susceptible S code = 27) 0-8 , Resistant <0 or >8 Ciprofloxacin (test Susceptible R code = 7) 0-0.5 , Resistant <0 or >.5 Gentamicin (test Susceptible S code = 18) 0-4 , Resistant <0 or >4 Levofloxacin (test Susceptible R code = 22) 0-1 , Resistant <0 or >1 Meropenem (test Susceptible S code = 34) 0-2 , Resistant <0 or >2 Piperacillin (test Susceptible S code = 24) 0-16 , Resistant <0 or >16 Piperacillin + Susceptible S Tazobactam (test 0-16 , code = 29) Resistant <0 or >16 Tobramycin (test Susceptible S code = 25) 0-4 , Resistant <0 or >4 CULTURE (BEAKER) A 1+ (test code = 1095) Stenotrop homonas maltophilia CULTURE (BEAKER) STENOTROPHOMONAS A 1+ Pseu domonas (test code = 1095) MALTOPHILIA aeruginos a Ceftazidime (test Susceptible R code = 27) 0-8 , Resistant <0 or >8 Levofloxacin (test Susceptible S code = 22) 0-2 , Resistant <0 or >2 Trimethoprim + Susceptible S Sulfamethoxazole 0-40 , (test code = 47) Resistant <0 or >40 CULTURE (BEAKER) PSEUDOMONAS A <1+ Escheri alex (test code = 1095) AERUGINOSA coli Amikacin (test code Susceptible R = 1) 0-16 , Resistant <0 or >16 Aztreonam (test Susceptible S code = 32) 0-8 , Resistant <0 or >8 Cefepime (test code Susceptible S = 51) 0-8 , Resistant <0 or >8 Ceftazidime (test Susceptible S code = 27) 0-8 , Resistant <0 or >8 Ciprofloxacin (test Susceptible R code = 7) 0-0.5 , Resistant <0 or >.5 Gentamicin (test Susceptible S code = 18) 0-4 , Resistant <0 or >4 Levofloxacin (test Susceptible R code = 22) 0-1 , Resistant <0 or >1 Meropenem (test Susceptible S code = 34) 0-2 , Resistant <0 or >2 Piperacillin (test Susceptible S code = 24) 0-16 , Resistant <0 or >16 Piperacillin + Susceptible S Tazobactam (test 0-16 , code = 29) Resistant <0 or >16 Tobramycin (test Susceptible S code = 25) 0-4 , Resistant <0 or >4 4+ Normal respiratory maria del carmen presentPOCT-GLUCOSE [id number] 10:24:00 Test Item Value Reference Range Interpretation Comments POC-GLUCOSE METER 101 mg/dL 70-110 : TESTED A T [facility] 6720 (BEAKER) (test code = [place], 1538) [address]: Director Apparel/Techni rian ID = [id number] for CORY EVANLILA [id number] 05:45:00 Test Item Value Reference Range Interpretation Comments MAGNESIUM (BEAKER) (test code = 1.4 mg/dL 1.6-2.6 L 627) Director Apparel ID - [employer] METABOLIC [id number] 05:45:00 Test Item Value Reference Range Interpretation Comments SODIUM (BEAKER) 141 meq/L 136-145 (test code = 381) POTASSIUM (BEAKER) 3.7 meq/L 3.5-5.1 (test code = 379) CHLORIDE (BEAKER) 109 meq/L 98-107 H (test code = 382) CO2 (BEAKER) (test 28 meq/L 22-29 code = 355) BLOOD UREA NITROGEN 4 mg/dL 7-21 L (BEAKER) (test code = 354) CREATININE (BEAKER) 1.16 mg/dL 0.57-1.25 (test code = 358) GLUCOSE RANDOM 90 mg/dL 70-105 (BEAKER) (test code = 652) CALCIUM (BEAKER) 8.1 mg/dL 8.4-10.2 L (test code = 697) EGFR (BEAKER) (test 83 mL/min/1.73 ESTIMA JOANN GFR IS code = 1092) sq m NOT ACCURATE CREATININE CLEARANCE IN PREDICTING GLOMERULAR FILTRATION RATE . ESTIMATED GFR I S NOT APPLICABLE FOR DIALYSIS PATIEN TS. Director Apparel ID - [employer] METABOLIC [id number] 13:57:00 Test Item Value Reference Range Interpretation Comments SODIUM (BEAKER) 141 meq/L 136-145 (test code = 381) POTASSIUM (BEAKER) 3.8 meq/L 3.5-5.1 (test code = 379) CHLORIDE (BEAKER) 107 meq/L 98-107 (test code = 382) CO2 (BEAKER) (test 30 meq/L 22-29 H code = 355) BLOOD UREA NITROGEN 4 mg/dL 7-21 L (BEAKER) (test code = 354) CREATININE (BEAKER) 1.37 mg/dL 0.57-1.25 H (test code = 358) GLUCOSE RANDOM 113 mg/dL 70-105 H (BEAKER) (test code = 652) CALCIUM (BEAKER) 8.9 mg/dL 8.4-10.2 (test code = 697) EGFR (BEAKER) (test 68 mL/min/1.73 ESTIMA JOANN GFR IS code = 1092) sq m NOT ACCURATE CREATININE CLEARANCE IN PREDICTING GLOMERULAR FILTRATION RATE . ESTIMATED GFR I S NOT APPLICABLE FOR DIALYSIS PATIEN TS. Director Apparel ID - NEIL MRAD, ABDOMEN/KUB, 1 VIEW [id number] 09:29:00Reason for exam:->LIONEL, eval stool burdenFINAL REPORT CLINICAL HISTORY: LIONEL, eval stool burden TECHNIQUE: Supine abdomen COMPARISON: 10/19/2019 IMPRESSION: There does not appear to be a significant amount of stool in the c olon. Nonspecific gaseous prominence of large and small bowel is similar appearing. Chain sutures are again seen in the right lower quadrant along with a surgical clip. Free air and air-fluid levels are not definitively seen, but also cannot be excluded on the supine view. Signed: Murray Gomez MDReport Verified Date/Time: 10/22/2019 09:29:36 Reading Location: [facility] Radiology Reading Room [id number] 07:28:00 Test Item Value Reference Range Interpretation Comments MAGNESIUM (BEAKER) 1.4 mg/dL 1.6-2.6 L Specimen moderately (test code = 627) hemolyzed Director Apparel ID - [id number] 03:32:00 Test Item Value Reference Range Interpretation Comments MAGNESIUM (BEAKER) (test code = 1.4 mg/dL 1.6-2.6 L 627) Director Apparel ID - NEIL MBASIC METABOLIC [id number] 03:32:00 Test Item Value Reference Range Interpretation Comments SODIUM (BEAKER) 137 meq/L 136-145 (test code = 381) POTASSIUM (BEAKER) 3.7 meq/L 3.5-5.1 (test code = 379) CHLORIDE (BEAKER) 109 meq/L 98-107 H (test code = 382) CO2 (BEAKER) (test 24 meq/L 22-29 code = 355) BLOOD UREA NITROGEN 6 mg/dL 7-21 L (BEAKER) (test code = 354) CREATININE (BEAKER) 1.08 mg/dL 0.57-1.25 (test code = 358) GLUCOSE RANDOM 85 mg/dL 70-105 (BEAKER) (test code = 652) CALCIUM (BEAKER) 8.1 mg/dL 8.4-10.2 L (test code = 697) EGFR (BEAKER) (test 90 mL/min/1.73 ESTIMA JOANN GFR IS code = 1092) sq m NOT ACCURATE CREATININE CLEARANCE IN PREDICTING GLOMERULAR FILTRATION RATE . ESTIMATED GFR I S NOT APPLICABLE FOR DIALYSIS PATIEN TS. Director Apparel ID - NEIL [id number] 05:11:00 Test Item Value Reference Range Interpretation Comments MAGNESIUM (BEAKER) (test code = 1.7 mg/dL 1.6-2.6 627) Director Apparel ID - NEIL MBASIC METABOLIC [id number] 05:11:00 Test Item Value Reference Range Interpretation Comments SODIUM (BEAKER) 135 meq/L 136-145 L (test code = 381) POTASSIUM (BEAKER) 4.1 meq/L 3.5-5.1 (test code = 379) CHLORIDE (BEAKER) 111 meq/L 98-107 H (test code = 382) CO2 (BEAKER) (test 23 meq/L 22-29 code = 355) BLOOD UREA NITROGEN 8 mg/dL 7-21 (BEAKER) (test code = 354) CREATININE (BEAKER) 1.10 mg/dL 0.57-1.25 (test code = 358) GLUCOSE RANDOM 79 mg/dL 70-105 (BEAKER) (test code = 652) CALCIUM (BEAKER) 8.2 mg/dL 8.4-10.2 L (test code = 697) EGFR (BEAKER) (test 88 mL/min/1.73 ESTIMA JOANN GFR IS code = 1092) sq m NOT ACCURATE CREATININE CLEARANCE IN PREDICTING GLOMERULAR FILTRATION RATE . ESTIMATED GFR I S NOT APPLICABLE FOR DIALYSIS PATIEN TS. Director Apparel ID - NEIL MRAD, ABDOMEN/KUB, 1 VIEW [id number] 05:46:00Reason for exam:->ABDOMINAL PAINFINAL REPORT TECHNIQUE: Single View of the Abdomen. INDICATION: Abdominal pain.COMPARISON: 10/19/2019 CT. FINDINGS/IMPRESSION: Markedly distended loop of small bowel in the right lower quadrant up to 6.6 cm correlating to a distended loop of small bowel on CT. Oral contrast from prior CT not yet definitively within the colon. No definite evidence of free air although evaluation limited secondary to supine positioning. Excreted contrast present within the bladder. No acute osseous abnormality of the included skeleton. Partially imaged chest base is unremarkable. Signed: Carmelo Mosleyeport Verified Date/Time: 10/19/2019 05:46:42 BASIC METABOLIC [id number] 05:42:00 Test Item Value Reference Range Interpretation Comments SODIUM (BEAKER) 136 meq/L 136-145 (test code = 381) POTASSIUM (BEAKER) 3.9 meq/L 3.5-5.1 (test code = 379) CHLORIDE (BEAKER) 112 meq/L 98-107 H (test code = 382) CO2 (BEAKER) (test 21 meq/L 22-29 L code = 355) BLOOD UREA NITROGEN 11 mg/dL 7-21 (BEAKER) (test code = 354) CREATININE (BEAKER) 1.00 mg/dL 0.57-1.25 (test code = 358) GLUCOSE RANDOM 89 mg/dL 70-105 (BEAKER) (test code = 652) CALCIUM (BEAKER) 8.2 mg/dL 8.4-10.2 L (test code = 697) EGFR (BEAKER) (test 99 mL/min/1.73 ESTIMA JOANN GFR IS code = 1092) sq m NOT ACCURATE CREATININE CLEARANCE IN PREDICTING GLOMERULAR FILTRATION RATE . ESTIMATED GFR I S NOT APPLICABLE FOR DIALYSIS PATIEN TS. Director Apparel ID - NEIL [id number] 05:29:00 Test Item Value Reference Range Interpretation Comments PHOSPHORUS (BEAKER) (test code = 2.4 mg/dL 2.3-4.7 604) Director Apparel ID - NEIL [id number] 05:29:00 Test Item Value Reference Range Interpretation Comments MAGNESIUM (BEAKER) (test code = 1.5 mg/dL 1.6-2.6 L 627) Director Apparel ID - NEIL MCT, [id number] 04:01:00Reason for exam:->distal intestinal obstructionWhat is the patient's sedation requirement?->NoSedation FINAL REPORT TECHNIQUE: CT of the abdomen and pelvis WITH intravenous contrast and WITH oral contrast. Dose modulation, iterative reconstruction, and/or weight-based adjustment of the mA/kV was utilized to reduce the radiation dose to as low as reasonably achievable. INDICATION: Ab dominal pain. COMPARISON: None. FINDINGS: LOWER THORAX: Unchanged mucous plugging of the partially imaged right middle lobe. HEPATOBILIARY: No focal hepatic lesions. Gallbladder is unremarkable. No biliary ductal dilatation.SPLEEN: No splenomegaly.PANCREAS: Atrophied and fatty-replaced. ADRENALS: No adrenal nodules.KIDNEYS/URETERS: No hydronephrosis, obstructing stones, or masses. There are several nonobstructing stones in the left greater than right kidney similar to prior to 0.3 cm on the right and up to 0.7 cm on the left.PELVIC ORGANS/BLADDER: Unremarkable. PERITONEUM/RETROPERITONEUM: No free air or fluid.LYMPH NODES: No lymphadenopathy.VESSELS: Unremarkable. GI TRACT: Stomach is unremarkable.Oral contrast reaches the distal small bowel. There are several loops of distended small bowel interspersed with decompressed small bowel. There is markedly distended bowel in the right lower quadrant up to 7.0 cm. Anastomotic suture material is present at the ascending colon, as before. Large amount of retained fecal matter throughout the colon is similar to priors. No evidence of ischemia or pneumatosis BONES AND SOFT TISSUES: Unremarkable. IMPRESSION:1. Multiple loops of markedly distended small bowel interspersed with decompressed small bowel and marked retained colonic fecal matter similar to prior imaging. Findings most likely reflect paralytic ileus and intermittent bowel obstruction with fecal stasis. No evidence of ischemia.2. Atrophied pancreas with fatty replacement.3. Bilateral nephrolithiasis.4. Mucous plugging of the partially imaged right middle lobe similar to priors. Signed: Carmelo Mosley MDReport Verified Date/Time: 10/19/2019 04:01:15 BASIC METABOLIC PANEL 2019-10-19 02:51:00 Test Item Value Reference Range Interpretation Comments SODIUM (BEAKER) 138 meq/L 136-145 (test code = 381) POTASSIUM (BEAKER) 2.7 meq/L 3.5-5.1 L Specimen slightly (test code = 379) hemolyzed CHLORIDE (BEAKER) 121 meq/L 98-107 H (test code = 382) CO2 (BEAKER) (test 15 meq/L 22-29 L code = 355) BLOOD UREA NITROGEN 9 mg/dL 7-21 (BEAKER) (test code = 354) CREATININE (BEAKER) 0.63 mg/dL 0.57-1.25 Specimen slightly (test code = 358) hemolyzed GLUCOSE RANDOM 68 mg/dL 70-105 L (BEAKER) (test code = 652) CALCIUM (BEAKER) 5.5 mg/dL 8.4-10.2 LL (test code = 697) EGFR (BEAKER) (test 168 mL/min/1.73 ESTIM ATED GFR IS code = 1092) sq m NOT ACCURATE CREATININE CLEARANCE IN PREDICTING GLOMERULAR FILTRATION RATE . ESTIMATED GFR I S NOT APPLICABLE FOR DIALYSIS PATIEN TS. Director Apparel ID - NEIL MCBC W/PLT COUNT & AUTO [id number] 01:44:00 Test Item Value Reference Range Interpretation Comments WHITE BLOOD CELL COUNT (BEAKER) 9.6 K/ L 3.5-10.5 (test code = 775) RED BLOOD CELL COUNT (BEAKER) 4.44 M/ L 4.63-6.08 L (test code = 761) HEMOGLOBIN (BEAKER) (test code = 13.6 GM/DL 13.7-17.5 L 410) HEMATOCRIT (BEAKER) (test code = 41.0 % 40.1-51.0 411) MEAN CORPUSCULAR VOLUME (BEAKER) 92.3 fL 79.0-92.2 H (test code = 753) MEAN CORPUSCULAR HEMOGLOBIN 30.6 pg 25.7-32.2 (BEAKER) (test code = 751) MEAN CORPUSCULAR HEMOGLOBIN CONC 33.2 GM/DL 32.3-36.5 (BEAKER) (test code = 752) RED CELL DISTRIBUTION WIDTH 13.2 % 11.6-14.4 (BEAKER) (test code = 412) PLATELET COUNT (BEAKER) (test 222 K/CU MM 150-450 code = 756) MEAN PLATELET VOLUME (BEAKER) 12.2 fL 9.4-12.4 (test code = 754) NUCLEATED RED BLOOD CELLS 0 /100 WBC 0-0 (BEAKER) (test code = 413) NEUTROPHILS RELATIVE PERCENT 66 % (BEAKER) (test code = 429) LYMPHOCYTES RELATIVE PERCENT 21 % (BEAKER) (test code = 430) MONOCYTES RELATIVE PERCENT 8 % (BEAKER) (test code = 431) EOSINOPHILS RELATIVE PERCENT 5 % (BEAKER) (test code = 432) BASOPHILS RELATIVE PERCENT 0 % (BEAKER) (test code = 437) NEUTROPHILS ABSOLUTE COUNT 6.35 K/ L 1.78-5.38 H (BEAKER) (test code = 670) LYMPHOCYTES ABSOLUTE COUNT 1.99 K/ L 1.32-3.57 (BEAKER) (test code = 414) MONOCYTES ABSOLUTE COUNT (BEAKER) 0.79 K/ L 0.30-0.82 (test code = 415) EOSINOPHILS ABSOLUTE COUNT 0.44 K/ L 0.04-0.54 (BEAKER) (test code = 416) BASOPHILS ABSOLUTE COUNT (BEAKER) 0.04 K/ L 0.01-0.08 (test code = 417) IMMATURE GRANULOCYTES-RELATIVE 0 % 0-1 PERCENT (BEAKER) (test code = 2801) AFB CULTURE + [id number] 12:10:00 Test Item Value Reference Range Interpretation Comments CULTURE (BEAKER) (test No acid-fast bacilli code = 1095) isolated in 42 days AFB SMEAR (BEAKER) No acid fast bacilli (test code = 994) seen FUNGUS CULTURE + [id number] 18:48:00 Test Item Value Reference Range Interpretation Comments CULTURE (BEAKER) A <1+ Padilla (test code = 1095) parapsilo sis FUNGUS SMEAR No fungi seen (BEAKER) (test code = 1406) CF RESPIRATORY [id number] 08:04:00 Test Item Value Reference Range Interpretation Comments CULTURE (BEAKER) (test PSEUDOMONAS A 3+ Ps eudomonas code = 1095) AERUGINOSA aeruginosa (MUCOID-PHENOTYP (Mucoid-phe notyp E) e) Amikacin (test code = Susceptible 0-16 S 1) , Resistant <0 or >16 Aztreonam (test code = Susceptible 0-8 S 32) , Resistant <0 or >8 Cefepime (test code = Susceptible 0-8 S 51) , Resistant <0 or >8 Ceftazidime (test code Susceptible 0-8 S = 27) , Resistant <0 or >8 Ciprofloxacin (test Susceptible S code = 7) 0-0.5 , Resistant <0 or >.5 Gentamicin (test code Susceptible 0-4 S = 18) , Resistant <0 or >4 Levofloxacin (test Susceptible 0-1 S code = 22) , Resistant <0 or >1 Meropenem (test code = Susceptible 0-2 S 34) , Resistant <0 or >2 Piperacillin (test Susceptible 0-16 S code = 24) , Resistant <0 or >16 Piperacillin + Susceptible 0-16 S Tazobactam (test code , Resistant <0 = 29) or >16 Tobramycin (test code Susceptible 0-4 S = 25) , Resistant <0 or >4 CULTURE (BEAKER) (test ESCHERICHIA COLI A < 1+ Escherichia code = 1095) coli Amikacin (test code = S 1) Ampicillin + Sulbactam S (test code = 6) Aztreonam (test code = S 32) Cefepime (test code = S 51) Cefoxitin (test code = S 68) Ceftazidime (test code S = 27) Ceftriaxone (test code S = 52) Ertapenem (test code = S 38) Gentamicin (test code S = 18) Levofloxacin (test R code = 22) Meropenem (test code = S 34) Nitrofurantoin (test S code = 23) Piperacillin + S Tazobactam (test code = 29) Tetracycline (test S code = 2) Tobramycin (test code S = 25) Trimethoprim + S Sulfamethoxazole (test code = 47) 3+ Normal respiratory maria del carmen presentSPIN/CONCENTRATION [id number] 01:05:00 Test Item Value Reference Range Interpretation Comments CONCENTRATION CHARGED (AKER) (test Done code = 2657) VITAMIN D 25 [id number] 10:54:35 Test Item Value Reference Range Interpretation Comments VITAMIN D 25-HYDROXY SEE BELOW NG/ML L NOT E: (test code = 6537365) 25-HYD ROXYVITAMIN D ASSAY INCLUDES 25-HYDROXYVITAM IN D2 AND D3. METHODO LOGY IS CHEMILUMINESCEN T IMMUNOASSAY. $$ $$$ INTERPRETIVE RA NGES $$$$$PEDIATRIC (<17 YEARS) . . . . . . . . . . . NG/ML 20-100ADULT: INSUFFICIENT . . . . . . . . . . . . . . NG/ML <20 SUBOPTIMAL . . . . . . . . . . . . . . . NG/ML 20-29 OP TIMAL . . . . . . . . . . . . . . . . . NG/ML 3 0-100 Unless Otherwis e Indicated, All Testing Performed At: [facility], [address] [place] [address] Venecia garvin Director: Graham Mendoza M.D. CLIA Number [id number] Cap Accreditation N o. Lab Interpretation Abnormal (test code = 21430-8) [facility] [id number] 10:45:17 Test Item Value Reference Range Interpretation Comments TESTOSTERONE LEVEL (test See_Comment Un less Otherwise code = 2062698) Indicated, A ll Testing Performed At: [facility], [address] [place] [address] Venecia garvin Director: Ranulfo [place] Number [id number] Cap Accreditation N o. [Autom ated message] The sy stem which generated this result transmit joann reference range : 300 - 890 NG/DL. The reference range was not used to interpr et this result as normal/abnormal . [facility] CenterPROTIME-[id number] 09:34:37 Test Item Value Reference Range Interpretation Comments PROTIME (test code = See_Comment [Autom ated message] The 07755-0) system which ge nerated this result transmit joann reference range: 12.5 - 1 4.7 SECONDS. The reference r taurus was not used to interpr et this result as marlena l/abnormal. INR (test code = SEE BELOW CURRENT [place] COMMENDATIONS [place] 85501-9) FOR AN INR OF 2 .0-3.0 FOR ALL PATIENTS ON VITAMIN K ANTAGONISTS, EX CEPT THOSE WITH PROSTHETIC HEART VALVES, FOR WHO M INR OF 2.5-3.5 IS MICHAEL MMENDED. Unless Otherwis e Indicated, All Testing Per formed At: [facility], [address] [place], [place] [address] Toggle Press Operator: Graham Mendoza M.D. CLIA Numb er [id number] Cap Accreditati on No. [facility] CenterTSH2019-10-09 09:25:17 Test Item Value Reference Range Interpretation Comments THYROID STIMULATING See_Comment Unless Otherwise HORMONE (test code = Indicat ed, All Testing 2701252) Performed At: [facility], [address] [place] [address] Labora tory Director: Graham Mendoza M.D. CLIA Number [id number] Cap Accreditation N o. [id number] [Autom ated message] The sy stem which generated this result transmit joann reference range : 0.400 - 4.100 UIU/ML. T he reference range was not used to interpr et this result as normal/abnormal . [facility] CenterHEMOGLOBIN [id number] 08:37:06 Test Item Value Reference Range Interpretation Comments HEMOGLOBIN A1C (test 6.0 % 4.2-5.6 H Unless Otherwise code = 4548-4) Indicated, Al l Testing Performed At: [facility], [address] [place] [address] Laborator y Director: Graham Mendoza M.D. CLIA Number [id number] Cap Accreditation N o. [id number] Lab Interpretation Abnormal (test code = 82212-2) [facility] CenterCOMPREHENSIVE METABOLIC [id number] 08:10:39 Test Item Value Reference Range Interpretation Comments GLUCOSE (test code = See_Comment [Autom ated message] The 58359-2) system which ge nerated this result tra nsmitted reference range : 70 - 99 MG/DL. The refe rence range was not u sed to interpret this result as normal/abnormal . BLOOD UREA NITROGEN See_Comment [Automa joann message] The (test code = 78893-1) system which generated this result tra nsmitted reference range : 6 - 20 MG/DL. The refe rence range was not u sed to interpret this result as normal/abnormal . CREATININE (test code See_Comment [Auto mated message] The = 50748-3) system which ge nerated this result tra nsmitted reference range : 0.80 - 1.40 MG/DL. The reference range was not used to interpr et this result as normal/abnormal . EGFR AA (test code = See_Comment [Autom ated message] The 482) system which ge nerated this result tra nsmitted reference range : >60 ML/MIN/1.73. Th e reference range was not used to interpr et this result as normal/abnormal . EGFR (test code = See_Comment [Automate d message] The 35124-4) system which ge nerated this result tra nsmitted reference range : >60 ML/MIN/1.73. Th e reference range was not used to interpr et this result as normal/abnormal . BUN/CREAT RATIO (test See_Comment [Auto mated message] The code = 140) system which ge nerated this result tra nsmitted reference range : 6 - 28 RATIO. The refe rence range was not u sed to interpret this result as normal/abnormal . SODIUM (test code = See_Comment [Automa joann message] The 45991-4) system which ge nerated this result tra nsmitted reference range : 133 - 146 MEQ/L. The reference range was not u sed to interpret this result as normal/abnormal . POTASSIUM (test code = See_Comment [Aut omated message] The 6298-4) system which ge nerated this result tra nsmitted reference range : 3.5 - 5.4 MEQ/L. The reference range was not u sed to interpret this result as normal/abnormal . CHLORIDE (test code = See_Comment [Auto mated message] The 2068-12) system which ge nerated this result tra nsmitted reference range : 95 - 107 MEQ/L. The reference range was not u sed to interpret this result as normal/abnormal . CO2 (test code = See_Comment [Automated message] The 2028-06) system which ge nerated this result tra nsmitted reference range : 19 - 31 MEQ/L. The refe rence range was not u sed to interpret this result as normal/abnormal . CALCIUM (test code = See_Comment [Autom ated message] The 20962-9) system which ge nerated this result tra nsmitted reference range : 8.5 - 10.5 MG/DL. The reference range was not used to interpr et this result as normal/abnormal . PROTEIN TOTAL (test See_Comment [Automa joann message] The code = 2885-2) system which generated this result tra nsmitted reference range : 6.1 - 8.3 G/DL. The r eference range was not u sed to interpret this result as normal/abnormal . ALBUMIN (test code = See_Comment [Autom ated message] The 1751-04) system which ge nerated this result tra nsmitted reference range : 3.5 - 5.2 G/DL. The r eference range was not u sed to interpret this result as normal/abnormal . GLOBULINS, SERUM, See_Comment [Automate d message] The TOTAL (test code = system wh ich generated 230) this result tra nsmitted reference range : 1.9 - 3.7 G/DL. The r eference range was not u sed to interpret this result as normal/abnormal . A/G RATIO (test code = See_Comment [Aut omated message] The 16) system which ge nerated this result tra nsmitted reference range : 1.0 - 2.6 RATIO. The reference range was not u sed to interpret this result as normal/abnormal . BILIRUBIN TOTAL (test See_Comment [Auto mated message] The code = 1974-2) system which generated this result tra nsmitted reference range : <=1.2 MG/DL. The refe rence range was not u sed to interpret this result as normal/abnormal . ALKALINE PHOSPHATASE 101 U/L 40-119 (test code = 6768-6) AST (SGOT) (test code 34 U/L 9-50 = 1920-8) ALT (SGPT) (test code 39 U/L 5-50 Unles s Otherwise = 1742-6) Indicated, All Testing Performed At: [facility] [address] Director: Graham Mendoza M.D. CLIA Number [id number] [place] o. [id number] [facility] CenterLIPID [id number] 08:10:39 Test Item Value Reference Range Interpretation Comments CHOLESTEROL (test code = See_Comment [A utomated message] [id number]) The system [employer] generated this result transmitted ref erence range: <200 MG/ DL. The reference range was not used to interpr et this result as normal/abnormal . TRIGLYCERIDES (test code See_Comment [A utomated message] = 6779751) The system [employer] generated this result transmitted ref erence range: <150 MG/ DL. The reference range was not used to interpr et this result as normal/abnormal . HDL CHOLESTEROL (test See_Comment [Auto mated message] code = 5920040) The system w hich generated this result transmitted ref erence range: >39 MG/D L. The reference range was not used to interpr et this result as normal/abnormal . LDL CHOLESTEROL See_Comment [Automated message] CALCULATED (test code = The system which 3955673) generated this result transmitted ref erence range: <100 MG/ DL. The reference range was not used to interpr et this result as normal/abnormal . LDL/HDL RATIO, SERUM See_Comment Unless Otherwise (test code = 168) Indicated, All Testing Performed At: [facility], [address] [place] [address] [place] [address] Director: Graham Mendoza M.D. CLIA Number [id number] Cap Accreditation [place] o. [id number] [Autom ated message] The sy stem which generated this result transmit joann reference range : <3.55 RATIO. The refe rence range was not u sed to interpret this result as normal/abnor mal. [facility] W/AUTO DIFF WITH [id number] 08:02:31 Test Item Value Reference Range Interpretation Comments WHITE BLOOD CELL COUNT See_Comment [Aut omated message] (test code = 6690-2) The sys tem which generated this result transmitted ref erence range: 4.0 - 11 .0 K/UL. The refer ence range was not u sed to interpret this result as normal/abnor mal. RED BLOOD CELL COUNT See_Comment [Autom ated message] (test code = 48192-1) The sy stem which generated this result transmitted ref erence range: 4.10 - 5 .70 M/UL. The refer ence range was not u sed to interpret this result as normal/abnor mal. HEMOGLOBIN (test code = See_Comment [Au tomated message] 68648-7) The system whic h generated this result transmitted ref erence range: 13.0 - 1 7.0 G/DL. The refer ence range was not u sed to interpret this result as normal/abnor mal. HEMATOCRIT (test code = 41.3 % 37-49 82712-6) MEAN CORPUSCULAR VOLUME 90.6 fL 80-100 (test code = 787-2) MEAN CORPUSCULAR 31.1 PG 27-34 HEMOGLOBIN (test code = 785-6) MEAN CORPUSCULAR See_Comment [Automated message] HEMOGLOBIN CONC (test The sy stem which code = 786-4) generated this result transmitted ref erence range: 32.0 - 3 5.5 G/DL. The refer ence range was not u sed to interpret this result as normal/abnor mal. RED CELL DISTRIBUTION 12.1 % 11-15 WIDTH (test code = 788-0) NEUTROPHILS % (test code 69.2 % 40-74 = 770-8) LYMPHOCYTES % (test code 20.5 % 19-48 = 736-9) MONOCYTES % (test code = 7.1 % 4-13 5905-5) EOSINOPHILS % (test code 2.8 % 0-7 = 713-8) BASOPHILS % (test code = 0.4 % 0-2 706-2) PLATELET COUNT (test See_Comment Unless Otherwise code = 777-3) Indicated, All Testing Performed At: [facility] Pathology [facility], [address] [place] [address] Laborator y Director: Graham Mendoza M.D. [place] Number [id number] Cap Accreditation N o. [id number] [Autom ated message] The sy stem which generated this result transmit joann reference range : 130 - 400 K/UL. The reference range was not used to int erpret this result as normal/abnormal . [facility] [id number] 01:17:00 Test Item Value Reference Range Interpretation Comments CREATININE URINE (BEAKER) (test 105.9 mg/dL code = 375) Reference Range: No NormalsSODIUM, RANDOM [id number] 01:17:00 Test Item Value Reference Range Interpretation Comments SODIUM URINE (BEAKER) (test code = 235 meq/L 243) Reference Range: No NormalsBASIC METABOLIC [id number] 14:52:00 Test Item Value Reference Range Interpretation Comments SODIUM (BEAKER) 139 meq/L 136-145 (test code = 381) POTASSIUM (BEAKER) 4.6 meq/L 3.5-5.1 (test code = 379) CHLORIDE (BEAKER) 104 meq/L 98-107 (test code = 382) CO2 (BEAKER) (test 29 meq/L 22-29 code = 355) BLOOD UREA NITROGEN 11 mg/dL 7-21 (BEAKER) (test code = 354) CREATININE (BEAKER) 1.50 mg/dL 0.57-1.25 H (test code = 358) GLUCOSE RANDOM 114 mg/dL 70-105 H (BEAKER) (test code = 652) CALCIUM (BEAKER) 9.3 mg/dL 8.4-10.2 (test code = 697) EGFR (BEAKER) (test 62 mL/min/1.73 ESTIMA JOANN GFR IS code = 1092) sq m NOT ACCURATE CREATININE CLEARANCE IN PREDICTING GLOMERULAR FILTRATION RATE . ESTIMATED GFR I S NOT APPLICABLE FOR DIALYSIS PATIEN TS. CBC W/PLT COUNT & AUTO [id number] 06:59:00 Test Item Value Reference Range Interpretation Comments WHITE BLOOD CELL COUNT (BEAKER) 4.9 K/ L 3.5-10.5 (test code = 775) RED BLOOD CELL COUNT (BEAKER) 4.09 M/ L 4.63-6.08 L (test code = 761) HEMOGLOBIN (BEAKER) (test code = 12.4 GM/DL 13.7-17.5 L 410) HEMATOCRIT (BEAKER) (test code = 39.0 % 40.1-51.0 L 411) MEAN CORPUSCULAR VOLUME (BEAKER) 95.4 fL 79.0-92.2 H (test code = 753) MEAN CORPUSCULAR HEMOGLOBIN 30.3 pg 25.7-32.2 (BEAKER) (test code = 751) MEAN CORPUSCULAR HEMOGLOBIN CONC 31.8 GM/DL 32.3-36.5 L (BEAKER) (test code = 752) RED CELL DISTRIBUTION WIDTH 14.6 % 11.6-14.4 H (BEAKER) (test code = 412) PLATELET COUNT (BEAKER) (test 100 K/CU MM 150-450 L code = 756) MEAN PLATELET VOLUME (BEAKER) 13.8 fL 9.4-12.4 H (test code = 754) NUCLEATED RED BLOOD CELLS 0 /100 WBC 0-0 (BEAKER) (test code = 413) NEUTROPHILS RELATIVE PERCENT 29 % (BEAKER) (test code = 429) LYMPHOCYTES RELATIVE PERCENT 57 % (BEAKER) (test code = 430) MONOCYTES RELATIVE PERCENT 10 % (BEAKER) (test code = 431) EOSINOPHILS RELATIVE PERCENT 4 % (BEAKER) (test code = 432) BASOPHILS RELATIVE PERCENT 1 % (BEAKER) (test code = 437) NEUTROPHILS ABSOLUTE COUNT 1.43 K/ L 1.78-5.38 L (BEAKER) (test code = 670) LYMPHOCYTES ABSOLUTE COUNT 2.75 K/ L 1.32-3.57 (BEAKER) (test code = 414) MONOCYTES ABSOLUTE COUNT (BEAKER) 0.48 K/ L 0.30-0.82 (test code = 415) EOSINOPHILS ABSOLUTE COUNT 0.18 K/ L 0.04-0.54 (BEAKER) (test code = 416) BASOPHILS ABSOLUTE COUNT (BEAKER) 0.03 K/ L 0.01-0.08 (test code = 417) IMMATURE GRANULOCYTES-RELATIVE 0 % 0-1 PERCENT (BEAKER) (test code = 2801) BASIC METABOLIC [id number] 07:05:00 Test Item Value Reference Range Interpretation Comments SODIUM (BEAKER) 137 meq/L 136-145 (test code = 381) POTASSIUM (BEAKER) 4.5 meq/L 3.5-5.1 (test code = 379) CHLORIDE (BEAKER) 104 meq/L 98-107 (test code = 382) CO2 (BEAKER) (test 29 meq/L 22-29 code = 355) BLOOD UREA NITROGEN 8 mg/dL 7-21 (BEAKER) (test code = 354) CREATININE (BEAKER) 1.42 mg/dL 0.57-1.25 H (test code = 358) GLUCOSE RANDOM 93 mg/dL 70-105 (BEAKER) (test code = 652) CALCIUM (BEAKER) 9.3 mg/dL 8.4-10.2 (test code = 697) EGFR (BEAKER) (test 66 mL/min/1.73 ESTIMA JOANN GFR IS code = 1092) sq m NOT ACCURATE CREATININE CLEARANCE IN PREDICTING GLOMERULAR FILTRATION RATE . ESTIMATED GFR I S NOT APPLICABLE FOR DIALYSIS PATIEN TS. CBC W/PLT COUNT & AUTO [id number] 06:46:00 Test Item Value Reference Range Interpretation Comments WHITE BLOOD CELL COUNT (BEAKER) 4.4 K/ L 3.5-10.5 (test code = 775) RED BLOOD CELL COUNT (BEAKER) 4.11 M/ L 4.63-6.08 L (test code = 761) HEMOGLOBIN (BEAKER) (test code = 12.2 GM/DL 13.7-17.5 L 410) HEMATOCRIT (BEAKER) (test code = 38.0 % 40.1-51.0 L 411) MEAN CORPUSCULAR VOLUME (BEAKER) 92.5 fL 79.0-92.2 H (test code = 753) MEAN CORPUSCULAR HEMOGLOBIN 29.7 pg 25.7-32.2 (BEAKER) (test code = 751) MEAN CORPUSCULAR HEMOGLOBIN CONC 32.1 GM/DL 32.3-36.5 L (BEAKER) (test code = 752) RED CELL DISTRIBUTION WIDTH 14.1 % 11.6-14.4 (BEAKER) (test code = 412) PLATELET COUNT (BEAKER) (test 178 K/CU MM 150-450 code = 756) MEAN PLATELET VOLUME (BEAKER) 11.6 fL 9.4-12.4 (test code = 754) NUCLEATED RED BLOOD CELLS 0 /100 WBC 0-0 (BEAKER) (test code = 413) NEUTROPHILS RELATIVE PERCENT 39 % (BEAKER) (test code = 429) LYMPHOCYTES RELATIVE PERCENT 46 % (BEAKER) (test code = 430) MONOCYTES RELATIVE PERCENT 11 % (BEAKER) (test code = 431) EOSINOPHILS RELATIVE PERCENT 4 % (BEAKER) (test code = 432) BASOPHILS RELATIVE PERCENT 1 % (BEAKER) (test code = 437) NEUTROPHILS ABSOLUTE COUNT 1.67 K/ L 1.78-5.38 L (BEAKER) (test code = 670) LYMPHOCYTES ABSOLUTE COUNT 1.99 K/ L 1.32-3.57 (BEAKER) (test code = 414) MONOCYTES ABSOLUTE COUNT (BEAKER) 0.46 K/ L 0.30-0.82 (test code = 415) EOSINOPHILS ABSOLUTE COUNT 0.18 K/ L 0.04-0.54 (BEAKER) (test code = 416) BASOPHILS ABSOLUTE COUNT (BEAKER) 0.04 K/ L 0.01-0.08 (test code = 417) IMMATURE GRANULOCYTES-RELATIVE 0 % 0-1 PERCENT (BEAKER) (test code = 2801) TROPONIN [id number] 19:25:00 Test Item Value Reference Range Interpretation Comments TROPONIN I (BEAKER) (test code = 397) < ng/mL 0.00-0.03 Troponin I (TnI) levels must be interpreted in the context of the presenting symptoms and the clinical findings. Elevated TnI levels indicate myocardial damage, but are not specific for ischemic heart disease. Elevated TnI levels are seen in patients with other cardiac conditions (including myocarditis and congestive heart failure), and slight TnI elevations occur in patients with other conditions, including sepsis, renal failure, acidosis, acute neurological disease, and persistent tachyarrhythmia.BASIC METABOLIC [id number] 07:10:00 Test Item Value Reference Range Interpretation Comments SODIUM (BEAKER) 136 meq/L 136-145 (test code = 381) POTASSIUM (BEAKER) 4.2 meq/L 3.5-5.1 Specimen slightly (test code = 379) hemolyzed CHLORIDE (BEAKER) 107 meq/L 98-107 (test code = 382) CO2 (BEAKER) (test 26 meq/L 22-29 code = 355) BLOOD UREA NITROGEN 6 mg/dL 7-21 L (BEAKER) (test code = 354) CREATININE (BEAKER) 1.28 mg/dL 0.57-1.25 H Specimen slightly (test code = 358) hemolyzed GLUCOSE RANDOM 93 mg/dL 70-105 (BEAKER) (test code = 652) CALCIUM (BEAKER) 8.5 mg/dL 8.4-10.2 (test code = 697) EGFR (BEAKER) (test 74 mL/min/1.73 ESTIMA JOANN GFR IS code = 1092) sq m NOT ACCURATE CREATININE CLEARANCE IN PREDICTING GLOMERULAR FILTRATION RATE . ESTIMATED GFR I S NOT APPLICABLE FOR DIALYSIS PATIEN TS. CBC W/PLT COUNT & AUTO [id number] 06:55:00 Test Item Value Reference Range Interpretation Comments WHITE BLOOD CELL COUNT (BEAKER) 4.7 K/ L 3.5-10.5 (test code = 775) RED BLOOD CELL COUNT (BEAKER) 3.72 M/ L 4.63-6.08 L (test code = 761) HEMOGLOBIN (BEAKER) (test code = 11.6 GM/DL 13.7-17.5 L 410) HEMATOCRIT (BEAKER) (test code = 34.6 % 40.1-51.0 L 411) MEAN CORPUSCULAR VOLUME (BEAKER) 93.0 fL 79.0-92.2 H (test code = 753) MEAN CORPUSCULAR HEMOGLOBIN 31.2 pg 25.7-32.2 (BEAKER) (test code = 751) MEAN CORPUSCULAR HEMOGLOBIN CONC 33.5 GM/DL 32.3-36.5 (BEAKER) (test code = 752) RED CELL DISTRIBUTION WIDTH 14.1 % 11.6-14.4 (BEAKER) (test code = 412) PLATELET COUNT (BEAKER) (test 118 K/CU MM 150-450 L code = 756) MEAN PLATELET VOLUME (BEAKER) 13.2 fL 9.4-12.4 H (test code = 754) NUCLEATED RED BLOOD CELLS 0 /100 WBC 0-0 (BEAKER) (test code = 413) NEUTROPHILS RELATIVE PERCENT 36 % (BEAKER) (test code = 429) LYMPHOCYTES RELATIVE PERCENT 50 % (BEAKER) (test code = 430) MONOCYTES RELATIVE PERCENT 9 % (BEAKER) (test code = 431) EOSINOPHILS RELATIVE PERCENT 4 % (BEAKER) (test code = 432) BASOPHILS RELATIVE PERCENT 1 % (BEAKER) (test code = 437) NEUTROPHILS ABSOLUTE COUNT 1.72 K/ L 1.78-5.38 L (BEAKER) (test code = 670) LYMPHOCYTES ABSOLUTE COUNT 2.35 K/ L 1.32-3.57 (BEAKER) (test code = 414) MONOCYTES ABSOLUTE COUNT (BEAKER) 0.44 K/ L 0.30-0.82 (test code = 415) EOSINOPHILS ABSOLUTE COUNT 0.19 K/ L 0.04-0.54 (BEAKER) (test code = 416) BASOPHILS ABSOLUTE COUNT (BEAKER) 0.03 K/ L 0.01-0.08 (test code = 417) IMMATURE GRANULOCYTES-RELATIVE 0 % 0-1 PERCENT (BEAKER) (test code = 2801) BASIC METABOLIC [id number] 03:46:00 Test Item Value Reference Range Interpretation Comments SODIUM (BEAKER) 139 meq/L 136-145 (test code = 381) POTASSIUM (BEAKER) 3.8 meq/L 3.5-5.1 (test code = 379) CHLORIDE (BEAKER) 108 meq/L 98-107 H (test code = 382) CO2 (BEAKER) (test 27 meq/L 22-29 code = 355) BLOOD UREA NITROGEN 3 mg/dL 7-21 L (BEAKER) (test code = 354) CREATININE (BEAKER) 1.23 mg/dL 0.57-1.25 (test code = 358) GLUCOSE RANDOM 99 mg/dL 70-105 (BEAKER) (test code = 652) CALCIUM (BEAKER) 8.7 mg/dL 8.4-10.2 (test code = 697) EGFR (BEAKER) (test 78 mL/min/1.73 ESTIMA JOANN GFR IS code = 1092) sq m NOT ACCURATE CREATININE CLEARANCE IN PREDICTING GLOMERULAR FILTRATION RATE . ESTIMATED GFR I S NOT APPLICABLE FOR DIALYSIS PATIEN TS. CBC W/PLT COUNT & AUTO [id number] 03:42:00 Test Item Value Reference Range Interpretation Comments WHITE BLOOD CELL COUNT (BEAKER) 4.4 K/ L 3.5-10.5 (test code = 775) RED BLOOD CELL COUNT (BEAKER) 3.71 M/ L 4.63-6.08 L (test code = 761) HEMOGLOBIN (BEAKER) (test code = 11.5 GM/DL 13.7-17.5 L 410) HEMATOCRIT (BEAKER) (test code = 34.1 % 40.1-51.0 L 411) MEAN CORPUSCULAR VOLUME (BEAKER) 91.9 fL 79.0-92.2 (test code = 753) MEAN CORPUSCULAR HEMOGLOBIN 31.0 pg 25.7-32.2 (BEAKER) (test code = 751) MEAN CORPUSCULAR HEMOGLOBIN CONC 33.7 GM/DL 32.3-36.5 (BEAKER) (test code = 752) RED CELL DISTRIBUTION WIDTH 14.0 % 11.6-14.4 (BEAKER) (test code = 412) PLATELET COUNT (BEAKER) (test 162 K/CU MM 150-450 code = 756) MEAN PLATELET VOLUME (BEAKER) 11.6 fL 9.4-12.4 (test code = 754) NUCLEATED RED BLOOD CELLS 0 /100 WBC 0-0 (BEAKER) (test code = 413) NEUTROPHILS RELATIVE PERCENT 30 % (BEAKER) (test code = 429) LYMPHOCYTES RELATIVE PERCENT 56 % (BEAKER) (test code = 430) MONOCYTES RELATIVE PERCENT 9 % (BEAKER) (test code = 431) EOSINOPHILS RELATIVE PERCENT 5 % (BEAKER) (test code = 432) BASOPHILS RELATIVE PERCENT 1 % (BEAKER) (test code = 437) NEUTROPHILS ABSOLUTE COUNT 1.30 K/ L 1.78-5.38 L (BEAKER) (test code = 670) LYMPHOCYTES ABSOLUTE COUNT 2.47 K/ L 1.32-3.57 (BEAKER) (test code = 414) MONOCYTES ABSOLUTE COUNT (BEAKER) 0.38 K/ L 0.30-0.82 (test code = 415) EOSINOPHILS ABSOLUTE COUNT 0.20 K/ L 0.04-0.54 (BEAKER) (test code = 416) BASOPHILS ABSOLUTE COUNT (BEAKER) 0.02 K/ L 0.01-0.08 (test code = 417) IMMATURE GRANULOCYTES-RELATIVE 0 % 0-1 PERCENT (BEAKER) (test code = 2801) POCT-GLUCOSE [id number] 06:12:00 Test Item Value Reference Range Interpretation Comments POC-GLUCOSE METER 81 mg/dL 70-[address] [facility] 6720 (BEAKER) (test code = JUSTINE Ha [facility] [id number] 1538) BASIC METABOLIC [id number] 05:38:00 Test Item Value Reference Range Interpretation Comments SODIUM (BEAKER) 140 meq/L 136-145 (test code = 381) POTASSIUM (BEAKER) 3.8 meq/L 3.5-5.1 (test code = 379) CHLORIDE (BEAKER) 110 meq/L 98-107 H (test code = 382) CO2 (BEAKER) (test 26 meq/L 22-29 code = 355) BLOOD UREA NITROGEN 3 mg/dL 7-21 L (BEAKER) (test code = 354) CREATININE (BEAKER) 1.26 mg/dL 0.57-1.25 H (test code = 358) GLUCOSE RANDOM 81 mg/dL 70-105 (BEAKER) (test code = 652) CALCIUM (BEAKER) 8.5 mg/dL 8.4-10.2 (test code = 697) EGFR (BEAKER) (test 76 mL/min/1.73 ESTIMA JOANN GFR IS code = 1092) sq m NOT ACCURATE CREATININE CLEARANCE IN PREDICTING GLOMERULAR FILTRATION RATE . ESTIMATED GFR I S NOT APPLICABLE FOR DIALYSIS PATIEN TS. CBC W/PLT COUNT & AUTO [id number] 04:55:00 Test Item Value Reference Range Interpretation Comments WHITE BLOOD CELL COUNT (BEAKER) 4.3 K/ L 3.5-10.5 (test code = 775) RED BLOOD CELL COUNT (BEAKER) 3.62 M/ L 4.63-6.08 L (test code = 761) HEMOGLOBIN (BEAKER) (test code = 11.0 GM/DL 13.7-17.5 L 410) HEMATOCRIT (BEAKER) (test code = 33.5 % 40.1-51.0 L 411) MEAN CORPUSCULAR VOLUME (BEAKER) 92.5 fL 79.0-92.2 H (test code = 753) MEAN CORPUSCULAR HEMOGLOBIN 30.4 pg 25.7-32.2 (BEAKER) (test code = 751) MEAN CORPUSCULAR HEMOGLOBIN CONC 32.8 GM/DL 32.3-36.5 (BEAKER) (test code = 752) RED CELL DISTRIBUTION WIDTH 14.0 % 11.6-14.4 (BEAKER) (test code = 412) PLATELET COUNT (BEAKER) (test 156 K/CU MM 150-450 code = 756) MEAN PLATELET VOLUME (BEAKER) 11.4 fL 9.4-12.4 (test code = 754) NUCLEATED RED BLOOD CELLS 0 /100 WBC 0-0 (BEAKER) (test code = 413) NEUTROPHILS RELATIVE PERCENT 32 % (BEAKER) (test code = 429) LYMPHOCYTES RELATIVE PERCENT 54 % (BEAKER) (test code = 430) MONOCYTES RELATIVE PERCENT 9 % (BEAKER) (test code = 431) EOSINOPHILS RELATIVE PERCENT 4 % (BEAKER) (test code = 432) BASOPHILS RELATIVE PERCENT 1 % (BEAKER) (test code = 437) NEUTROPHILS ABSOLUTE COUNT 1.35 K/ L 1.78-5.38 L (BEAKER) (test code = 670) LYMPHOCYTES ABSOLUTE COUNT 2.30 K/ L 1.32-3.57 (BEAKER) (test code = 414) MONOCYTES ABSOLUTE COUNT (BEAKER) 0.38 K/ L 0.30-0.82 (test code = 415) EOSINOPHILS ABSOLUTE COUNT 0.17 K/ L 0.04-0.54 (BEAKER) (test code = 416) BASOPHILS ABSOLUTE COUNT (BEAKER) 0.04 K/ L 0.01-0.08 (test code = 417) IMMATURE GRANULOCYTES-RELATIVE 0 % 0-1 PERCENT ([facility]) (test code = 2801) POCT-GLUCOSE [id number] 00:40:00 Test Item Value Reference Range Interpretation Comments POC-GLUCOSE METER 106 mg/dL 70-[address] [facility] 6720 ([facility]) (test code = JUSTINE Ha [facility] 1538) [id number] POCT-GLUCOSE [id number] 18:46:00 Test Item Value Reference Range Interpretation Comments POC-GLUCOSE METER 102 mg/dL 70-110 TESTED AT [place] [id number] ([facility]) (test code = JUSTINE Ha [facility] 1538) [address] [place], SMALL BOWEL [id number] 18:00:00Reason for exam:->resolution of ileus FINAL REPORT Small bowel follow through: Comparison: CT dated June 02, 2019Clinical History: Ileus After Gastrografin was given orally, multiple images were obtained over the abdomen. FINDINGS: Multiple images were obtained with contrast in the small bowel. The colon was visualized in 120 minutes. Multiple loops of mid to distal small bowel are dilated. No definite transition point is identified. Fluoro time: Zero minutes Number of images obtained: 11 Impression:Findings suggest ileus or low-grade partial obstruction. Signed: Socrates Waters Verified Date/Time: 06/04/2019 18:00:59 Reading Location: [address] Consult Reading Room POCT-GLUCOSE [id number] 12:42:00 Test Item Value Reference Range Interpretation Comments POC-GLUCOSE METER 88 mg/dL 70-[address] [facility] 6720 ([facility]) (test code = JUSTINE Ha [facility] [address] 1538) RAD, ABDOMEN/KUB, 1 VIEW [id number] 10:33:00Reason for exam:->distentioin FINAL REPORT RAD, ABDOMEN/KUB, 1 VIEW AP CLINICAL INDICATION: distentioin COMPARISON: None TECHNIQUE: Single, frontal radiograph of the abdomen. FINDINGS: The bowel gas pattern is nonspecific, but nonobstructive. Gaseous distention of multiple loops of bowel. Findings are concerning for ileus.No abnormal mass or ascites is detected. No significant calcifications are present. The regional skeleton is intact. IMPRESSION: Nonspecific, nonobstructive bowel gas pattern. Gaseous distention of multiple loops of bowel. Findings are concerning for ileus. Signed: Lore Duque MDReportVerified Date/Time: 06/04/2019 10:33:04 Reading Location: [facility] Radiology Reading Room POCT-GLUCOSE [id number] 07:13:00 Test Item Value Reference Range Interpretation Comments POC-GLUCOSE METER 76 mg/dL 70-[address] [facility] 6720 (BEAKER) (test code = JUSTINE Ha [facility] [id number] 1538) BASIC METABOLIC [id number] 07:03:00 Test Item Value Reference Range Interpretation Comments SODIUM (BEAKER) 141 meq/L 136-145 (test code = 381) POTASSIUM (BEAKER) 3.9 meq/L 3.5-5.1 Specimen slightly (test code = 379) hemolyzed CHLORIDE (BEAKER) 110 meq/L 98-107 H (test code = 382) CO2 (BEAKER) (test 26 meq/L 22-29 code = 355) BLOOD UREA NITROGEN 4 mg/dL 7-21 L (BEAKER) (test code = 354) CREATININE (BEAKER) 1.14 mg/dL 0.57-1.25 Specimen slightly (test code = 358) hemolyzed GLUCOSE RANDOM 81 mg/dL 70-105 (BEAKER) (test code = 652) CALCIUM (BEAKER) 8.3 mg/dL 8.4-10.2 L (test code = 697) EGFR (BEAKER) (test 85 mL/min/1.73 ESTIMA JOANN GFR IS code = 1092) sq m NOT ACCURATE CREATININE CLEARANCE IN PREDICTING GLOMERULAR FILTRATION RATE . ESTIMATED GFR I S NOT APPLICABLE FOR DIALYSIS PATIEN TS. CBC W/PLT COUNT & AUTO [id number] 06:56:00 Test Item Value Reference Range Interpretation Comments WHITE BLOOD CELL COUNT (BEAKER) 4.0 K/ L 3.5-10.5 (test code = 775) RED BLOOD CELL COUNT (BEAKER) 3.62 M/ L 4.63-6.08 L (test code = 761) HEMOGLOBIN (BEAKER) (test code = 11.1 GM/DL 13.7-17.5 L 410) HEMATOCRIT (BEAKER) (test code = 33.3 % 40.1-51.0 L 411) MEAN CORPUSCULAR VOLUME (BEAKER) 92.0 fL 79.0-92.2 (test code = 753) MEAN CORPUSCULAR HEMOGLOBIN 30.7 pg 25.7-32.2 (BEAKER) (test code = 751) MEAN CORPUSCULAR HEMOGLOBIN CONC 33.3 GM/DL 32.3-36.5 (BEAKER) (test code = 752) RED CELL DISTRIBUTION WIDTH 14.0 % 11.6-14.4 (BEAKER) (test code = 412) PLATELET COUNT (BEAKER) (test 175 K/CU MM 150-450 code = 756) MEAN PLATELET VOLUME (BEAKER) 11.1 fL 9.4-12.4 (test code = 754) NUCLEATED RED BLOOD CELLS 0 /100 WBC 0-0 (BEAKER) (test code = 413) NEUTROPHILS RELATIVE PERCENT 41 % (BEAKER) (test code = 429) LYMPHOCYTES RELATIVE PERCENT 44 % (BEAKER) (test code = 430) MONOCYTES RELATIVE PERCENT 11 % (BEAKER) (test code = 431) EOSINOPHILS RELATIVE PERCENT 4 % (BEAKER) (test code = 432) BASOPHILS RELATIVE PERCENT 1 % (BEAKER) (test code = 437) NEUTROPHILS ABSOLUTE COUNT 1.65 K/ L 1.78-5.38 L (BEAKER) (test code = 670) LYMPHOCYTES ABSOLUTE COUNT 1.76 K/ L 1.32-3.57 (BEAKER) (test code = 414) MONOCYTES ABSOLUTE COUNT (BEAKER) 0.43 K/ L 0.30-0.82 (test code = 415) EOSINOPHILS ABSOLUTE COUNT 0.16 K/ L 0.04-0.54 (BEAKER) (test code = 416) BASOPHILS ABSOLUTE COUNT (BEAKER) 0.02 K/ L 0.01-0.08 (test code = 417) IMMATURE GRANULOCYTES-RELATIVE 0 % 0-1 PERCENT (BEAKER) (test code = 2801) POCT-GLUCOSE [id number] 05:03:00 Test Item Value Reference Range Interpretation Comments POC-GLUCOSE METER 90 mg/dL 70-[address] [facility] 6720 (BEAKER) (test code = [place] [address] 1538) [id number] 12:47:00 Test Item Value Reference Range Interpretation Comments MAGNESIUM (BEAKER) (test code = 1.8 mg/dL 1.6-2.6 627) BASIC METABOLIC [id number] 12:47:00 Test Item Value Reference Range Interpretation Comments SODIUM (BEAKER) 138 meq/L 136-145 (test code = 381) POTASSIUM (BEAKER) 3.8 meq/L 3.5-5.1 (test code = 379) CHLORIDE (BEAKER) 107 meq/L 98-107 (test code = 382) CO2 (BEAKER) (test 25 meq/L 22-29 code = 355) BLOOD UREA NITROGEN 6 mg/dL 7-21 L (BEAKER) (test code = 354) CREATININE (BEAKER) 1.09 mg/dL 0.57-1.25 (test code = 358) GLUCOSE RANDOM 111 mg/dL 70-105 H (BEAKER) (test code = 652) CALCIUM (BEAKER) 8.5 mg/dL 8.4-10.2 (test code = 697) EGFR (BEAKER) (test 89 mL/min/1.73 ESTIMA JOANN GFR IS code = 1092) sq m NOT ACCURATE CREATININE CLEARANCE IN PREDICTING GLOMERULAR FILTRATION RATE . ESTIMATED GFR I S NOT APPLICABLE FOR DIALYSIS PATIEN TS. CBC W/PLT COUNT & AUTO [id number] 12:20:00 Test Item Value Reference Range Interpretation Comments WHITE BLOOD CELL COUNT (BEAKER) 4.7 K/ L 3.5-10.5 (test code = 775) RED BLOOD CELL COUNT (BEAKER) 3.85 M/ L 4.63-6.08 L (test code = 761) HEMOGLOBIN (BEAKER) (test code = 12.0 GM/DL 13.7-17.5 L 410) HEMATOCRIT (BEAKER) (test code = 35.2 % 40.1-51.0 L 411) MEAN CORPUSCULAR VOLUME (BEAKER) 91.4 fL 79.0-92.2 (test code = 753) MEAN CORPUSCULAR HEMOGLOBIN 31.2 pg 25.7-32.2 (BEAKER) (test code = 751) MEAN CORPUSCULAR HEMOGLOBIN CONC 34.1 GM/DL 32.3-36.5 (BEAKER) (test code = 752) RED CELL DISTRIBUTION WIDTH 13.8 % 11.6-14.4 (BEAKER) (test code = 412) PLATELET COUNT (BEAKER) (test 179 K/CU MM 150-450 code = 756) MEAN PLATELET VOLUME (BEAKER) 11.2 fL 9.4-12.4 (test code = 754) NUCLEATED RED BLOOD CELLS 0 /100 WBC 0-0 (BEAKER) (test code = 413) NEUTROPHILS RELATIVE PERCENT 55 % (BEAKER) (test code = 429) LYMPHOCYTES RELATIVE PERCENT 32 % (BEAKER) (test code = 430) MONOCYTES RELATIVE PERCENT 10 % (BEAKER) (test code = 431) EOSINOPHILS RELATIVE PERCENT 3 % (BEAKER) (test code = 432) BASOPHILS RELATIVE PERCENT 0 % (BEAKER) (test code = 437) NEUTROPHILS ABSOLUTE COUNT 2.55 K/ L 1.78-5.38 (BEAKER) (test code = 670) LYMPHOCYTES ABSOLUTE COUNT 1.47 K/ L 1.32-3.57 (BEAKER) (test code = 414) MONOCYTES ABSOLUTE COUNT (BEAKER) 0.48 K/ L 0.30-0.82 (test code = 415) EOSINOPHILS ABSOLUTE COUNT 0.14 K/ L 0.04-0.54 (BEAKER) (test code = 416) BASOPHILS ABSOLUTE COUNT (BEAKER) 0.01 K/ L 0.01-0.08 (test code = 417) IMMATURE GRANULOCYTES-RELATIVE 0 % 0-1 PERCENT (BEAKER) (test code = 2801) CT, [id number] 16:06:00Please give water soluble rectal contrast (gastrograffin)FINAL REPORT ABDOMINAL AND PELVIS CT DATED 06/02/2019 Comparison: June 01, 2019 CLINICAL INFORMATION: Abdominal distension TECHNIQUE: Axial images of the abdomen and pelvis were obtained from diaphragm to the pubic symphysis with GI contrast. This exam was performed according to o departmental dose-optimization program, which includes automated exposure control, adjustment of the mA and/or kV according to patient size and/or use of interactive reconstruction technique. COMMENT: Liver and spleen are normal in size without focal abnormality. Gallbladder is contracted. Gallbladder vicarious excretion is present. No biliary dilatation is noted. Pancreas is atrophic. The adrenals are unremarkable. Both kidneys are normal in size. Several stones are seen in the left kidney measuring up to 4 mm size. A 2 mm stone is seen in the inferior pole right kidney. No hydronephrosis or hydroureter is present. The opacified small bowel is unremarkable. Dilated small bowel loops are seen in the abdomen measuring up to 3.7 cm. No mass, adenopathy or ascites is present. IMPRESSION: 1. Nonobstructive bilateral renal stones.2. Fluid-filled prominent small bowel loops in the abdomen and pelvis suggestive of enteritis or from early distal small bowel obstruction. Signed: Carmelo Tierney MDReport Verified Date/Time: 06/02/2019 16:06:39 Reading Location: [facility] [id number] Ortho Consult Reading Room GLOBIN [id number] 14:49:00 Test Item Value Reference Range Interpretation Comments HEMOGLOBIN A1C (BEAKER) (test code = 6.4 % 4.3-6.1 H 368) [id number] 10:13:00 Test Item Value Reference Range Interpretation Comments PHOSPHORUS (BEAKER) (test code = 2.7 mg/dL 2.3-4.7 604) [id number] 10:13:00 Test Item Value Reference Range Interpretation Comments MAGNESIUM (BEAKER) (test code = 1.8 mg/dL 1.6-2.6 627) BASIC METABOLIC [id number] 10:13:00 Test Item Value Reference Range Interpretation Comments SODIUM (BEAKER) 139 meq/L 136-145 (test code = 381) POTASSIUM (BEAKER) 4.2 meq/L 3.5-5.1 (test code = 379) CHLORIDE (BEAKER) 105 meq/L 98-107 (test code = 382) CO2 (BEAKER) (test 26 meq/L 22-29 code = 355) BLOOD UREA NITROGEN 10 mg/dL 7-21 (BEAKER) (test code = 354) CREATININE (BEAKER) 1.18 mg/dL 0.57-1.25 (test code = 358) GLUCOSE RANDOM 83 mg/dL 70-105 (BEAKER) (test code = 652) CALCIUM (BEAKER) 9.2 mg/dL 8.4-10.2 (test code = 697) EGFR (BEAKER) (test 82 mL/min/1.73 ESTIMA JOANN GFR IS code = 1092) sq m NOT ACCURATE CREATININE CLEARANCE IN PREDICTING GLOMERULAR FILTRATION RATE . ESTIMATED GFR I S NOT APPLICABLE FOR DIALYSIS PATIEN TS. HEPATIC FUNCTION [id number] 10:13:00 Test Item Value Reference Range Interpretation Comments TOTAL PROTEIN (BEAKER) (test code = 7.0 gm/dL 6.0-8.3 770) ALBUMIN (BEAKER) (test code = 1145) 3.9 g/dL 3.5-5.0 BILIRUBIN TOTAL (BEAKER) (test code 1.3 mg/dL 0.2-1.2 H = 377) BILIRUBIN DIRECT (BEAKER) (test 0.6 mg/dL 0.1-0.5 H code = 706) ALKALINE PHOSPHATASE (BEAKER) (test 97 U/L 40-150 code = 346) AST (SGOT) (BEAKER) (test code = 19 U/L 5-34 353) ALT (SGPT) (BEAKER) (test code = 25 U/L 6-55 347) CBC W/PLT COUNT & AUTO [id number] 10:01:00 Test Item Value Reference Range Interpretation Comments WHITE BLOOD CELL COUNT (BEAKER) 4.3 K/ L 3.5-10.5 (test code = 775) RED BLOOD CELL COUNT (BEAKER) 4.39 M/ L 4.63-6.08 L (test code = 761) HEMOGLOBIN (BEAKER) (test code = 13.3 GM/DL 13.7-17.5 L 410) HEMATOCRIT (BEAKER) (test code = 40.7 % 40.1-51.0 411) MEAN CORPUSCULAR VOLUME (BEAKER) 92.7 fL 79.0-92.2 H (test code = 753) MEAN CORPUSCULAR HEMOGLOBIN 30.3 pg 25.7-32.2 (BEAKER) (test code = 751) MEAN CORPUSCULAR HEMOGLOBIN CONC 32.7 GM/DL 32.3-36.5 (BEAKER) (test code = 752) RED CELL DISTRIBUTION WIDTH 13.7 % 11.6-14.4 (BEAKER) (test code = 412) PLATELET COUNT (BEAKER) (test 183 K/CU MM 150-450 code = 756) MEAN PLATELET VOLUME (BEAKER) 11.5 fL 9.4-12.4 (test code = 754) NUCLEATED RED BLOOD CELLS 0 /100 WBC 0-0 (BEAKER) (test code = 413) NEUTROPHILS RELATIVE PERCENT 47 % (BEAKER) (test code = 429) LYMPHOCYTES RELATIVE PERCENT 37 % (BEAKER) (test code = 430) MONOCYTES RELATIVE PERCENT 12 % (BEAKER) (test code = 431) EOSINOPHILS RELATIVE PERCENT 4 % (BEAKER) (test code = 432) BASOPHILS RELATIVE PERCENT 1 % (BEAKER) (test code = 437) NEUTROPHILS ABSOLUTE COUNT 1.99 K/ L 1.78-5.38 (BEAKER) (test code = 670) LYMPHOCYTES ABSOLUTE COUNT 1.58 K/ L 1.32-3.57 (BEAKER) (test code = 414) MONOCYTES ABSOLUTE COUNT (BEAKER) 0.52 K/ L 0.30-0.82 (test code = 415) EOSINOPHILS ABSOLUTE COUNT 0.15 K/ L 0.04-0.54 (BEAKER) (test code = 416) BASOPHILS ABSOLUTE COUNT (BEAKER) 0.02 K/ L 0.01-0.08 (test code = 417) IMMATURE GRANULOCYTES-RELATIVE 0 % 0-1 PERCENT (BEAKER) (test code = 2801) CT, [id number] 04:53:00FINAL REPORT CT, ABDOMEN \\T\\ PELVIS, WITH IV CONTRAST INDICATION: Bowel obstruction high-grade suspected COMPARISON: CT of the pelvis 08/28/2018. TECHNIQUE:Post contrast abdomen and pelvis CT. Coronal and sagittal reformatted images obtained. DOSE REDUCTION: Dose modulation, iterative reconstruction, and/or weight-based adjustment of the mA/kV was utilized to reduce the radiationdose to as low as reasonably achievable. FINDINGS: Lower thorax: Mucous plugging right middle lobe..No pleural effusion. The heart is normal in size. No pericardial effusion. Liver: Hypoattenuation ofthe hepatic parenchyma may be related to timing of contrast versus hepatic steatosis. No discrete hepatic lesions are identified.Gallbladder and biliary tree: No ductal dilation or stones.Pancreas: Relatively fatty replaced head with atrophic body.Spleen: Grossly unremarkable.Adrenal Glands: No acute findings.Kidneys and ureters: Bilateral nonobstructing nephrolithiasis the largest of which measures up to 3 mm in the left interpole. No hydronephrosis or contour deforming renal lesion.Bladder and reproductive organs: The bladder somewhat distended. Prostate is unremarkable. Stomach and Duodenum: Stomach is unremarkable. The duodenum is somewhat distended and fluid-filled particularly the second portion.Small and large intestine: Postsurgical changes of the large bowel are again identified. Again seen is a large stool burden throughout the large bowel without abnormal large bowel wall thickening. Surgical chain sutures in the cecum. Multiple alternating distended and nondistended loops of small jared wel seen within the abdomen similar in appearance to multiple comparison studies with dilatation of the anastomosis in the left abdomen, likely functional ileus. The enteric contrast material reaches the proximal large bowel. Appendix: Not identified. Major vascular structures: Normal aortic caliber.Peritoneum and retroperitoneum: Again seen are multiple enlarged mesenteric lymph nodes, not significant changed in the interval. Skeleton: No acute bony abnormality.Additional findings: None. IMPRESSION: Unchanged mucous plugging in the right middle lobe. Multiple alternating distended and nondistendedloops of small bowel within the abdomen with multiple abnormal air-fluid levels. Normal transit of enteric contrast material into the proximal large bowel. Findings are favored to reflect ileus howevera small bowel obstruction (partial or early complete) cannot be excluded. Clinical correlation is recommended. Large stool burden throughout the large bowel with postsurgical changes of the right colon. Nonobstructing bilateral nephrolithiasis. Signed: Debbie Ding [facility] Verified Date/Time: 06/02/2019 04:53:48 BASIC METABOLIC [id number] 02:20:00 Test Item Value Reference Range Interpretation Comments SODIUM (BEAKER) 134 meq/L 136-145 L (test code = 381) POTASSIUM (BEAKER) 3.8 meq/L 3.5-5.1 (test code = 379) CHLORIDE (BEAKER) 106 meq/L 98-107 (test code = 382) CO2 (BEAKER) (test 21 meq/L 22-29 L code = 355) BLOOD UREA NITROGEN 11 mg/dL 7-21 (BEAKER) (test code = 354) CREATININE (BEAKER) 1.02 mg/dL 0.57-1.25 (test code = 358) GLUCOSE RANDOM 97 mg/dL 70-105 (BEAKER) (test code = 652) CALCIUM (BEAKER) 8.4 mg/dL 8.4-10.2 (test code = 697) EGFR (BEAKER) (test 97 mL/min/1.73 ESTIMA JOANN GFR IS code = 1092) sq m NOT ACCURATE CREATININE CLEARANCE IN PREDICTING GLOMERULAR FILTRATION RATE . ESTIMATED GFR I S NOT APPLICABLE FOR DIALYSIS PATIEN TS. RAD, ABDOMEN SERIES W/ UPRIGHT PA [id number] 01:44:00Reason for exam:- >ABDOMINAL PAINFINAL REPORT RAD, ABDOMEN SERIES W/ UPRIGHT PA CHEST CLINICAL HISTORY: ABDOMINAL PAIN TECHNIQUE: Supine and erect abdomen and frontal chest views. COMPARISON: March 26, 2019 IMPRESSION: Abdomen: Multiple air-fluid levels within left abdominal bowel loops. Large volume of retained fecal material. There is moderate distention of the small bowel. Findings are concerning for ileus or partial small bowel obstruction. No transition point identified. Correlation with CT abdomen and pelvis should be considered. No pneumatosis or portal venous gas. No free air identified. Chest: Interstitial markings are prominent with clustered nodular opacities within the right lower lobe concerning for pneumonitis including atypical infection. No pneumothorax or significant pleural effusion. Cardiomediastinal silhouette is normal. Signed: Luis Enrique Russell MDReport Verified Date/Time: 06/01/2019 01:44:40 CBC W/PLT COUNT & AUTO [id number] 00:59:00 Test Item Value Reference Range Interpretation Comments WHITE BLOOD CELL COUNT (BEAKER) 7.8 K/ L 3.5-10.5 (test code = 775) RED BLOOD CELL COUNT (BEAKER) 4.27 M/ L 4.63-6.08 L (test code = 761) HEMOGLOBIN (BEAKER) (test code = 13.1 GM/DL 13.7-17.5 L 410) HEMATOCRIT (BEAKER) (test code = 38.8 % 40.1-51.0 L 411) MEAN CORPUSCULAR VOLUME (BEAKER) 90.9 fL 79.0-92.2 (test code = 753) MEAN CORPUSCULAR HEMOGLOBIN 30.7 pg 25.7-32.2 (BEAKER) (test code = 751) MEAN CORPUSCULAR HEMOGLOBIN CONC 33.8 GM/DL 32.3-36.5 (BEAKER) (test code = 752) RED CELL DISTRIBUTION WIDTH 13.6 % 11.6-14.4 (BEAKER) (test code = 412) PLATELET COUNT (BEAKER) (test 181 K/CU MM 150-450 code = 756) MEAN PLATELET VOLUME (BEAKER) 11.5 fL 9.4-12.4 (test code = 754) NUCLEATED RED BLOOD CELLS 0 /100 WBC 0-0 (BEAKER) (test code = 413) NEUTROPHILS RELATIVE PERCENT 58 % (BEAKER) (test code = 429) LYMPHOCYTES RELATIVE PERCENT 27 % (BEAKER) (test code = 430) MONOCYTES RELATIVE PERCENT 12 % (BEAKER) (test code = 431) EOSINOPHILS RELATIVE PERCENT 2 % (BEAKER) (test code = 432) BASOPHILS RELATIVE PERCENT 0 % (BEAKER) (test code = 437) NEUTROPHILS ABSOLUTE COUNT 4.53 K/ L 1.78-5.38 (BEAKER) (test code = 670) LYMPHOCYTES ABSOLUTE COUNT 2.12 K/ L 1.32-3.57 (BEAKER) (test code = 414) MONOCYTES ABSOLUTE COUNT (BEAKER) 0.94 K/ L 0.30-0.82 H (test code = 415) EOSINOPHILS ABSOLUTE COUNT 0.12 K/ L 0.04-0.54 (BEAKER) (test code = 416) BASOPHILS ABSOLUTE COUNT (BEAKER) 0.03 K/ L 0.01-0.08 (test code = 417) IMMATURE GRANULOCYTES-RELATIVE 0 % 0-1 PERCENT (BEAKER) (test code = 2801) RESPIRATORY PANEL [id number] 16:44:00 Test Item Value Reference Range Interpretation Comments HUMAN METAPNEUMOVIRUS Not detected Not detected, (BEAKER) (test code = 2683) Equivocal RHINOVIRUS (BEAKER) (test Not detected Not detected, code = 2684) Equivocal INFLUENZA A (BEAKER) (test Not detected Not detected, code = 2685) Equivocal INFLUENZA A (NO SUBTYPE) Not detected, (test code = 3606) Equivocal INFLUENZA A SUBTYPE H1 Not detected, (BEAKER) (test code = 2686) Equivocal INFLUENZA A SUBTYPE H3 Not detected, (BEAKER) (test code = 2687) Equivocal INFLUENZA A SUBTYPE H1-2009 Not detected, (BEAKER) (test code = 3198) Equivocal INFLUENZA B (BEAKER) (test Not detected Not detected, code = 2688) Equivocal RESPIRATORY SYNCYTIAL VIRUS Not detected Not detected, (BEAKER) (test code = 3199) Equivocal PARAINFLUENZA VIRUS 1 Not detected Not detected, (BEAKER) (test code = 2691) Equivocal PARAINFLUENZA VIRUS 2 Not detected Not detected, (BEAKER) (test code = 2692) Equivocal PARAINFLUENZA VIRUS 3 Not detected Not detected, (BEAKER) (test code = 2693) Equivocal PARAINFLUENZA VIRUS 4 Not detected Not detected, (BEAKER) (test code = 3200) Equivocal ADENOVIRUS (BEAKER) (test Not detected Not detected, code = 2694) Equivocal CORONAVIRUS 229E (BEAKER) Not detected Not detected, (test code = 3201) Equivocal CORONAVIRUS HKU1 (BEAKER) Not detected Not detected, (test code = 3202) Equivocal CORONAVIRUS NL63 (BEAKER) Not detected Not detected, (test code = 3203) Equivocal CORONAVIRUS OC43 (BEAKER) Not detected Not detected, (test code = 3204) Equivocal BORDETELLA PERTUSSIS Not detected Not detected, (BEAKER) (test code = 3205) Equivocal CHLAMYDOPHILA PNEUMONIAE Not detected Not detected, (BEAKER) (test code = 3206) Equivocal MYCOPLASMA PNEUMONIAE Not detected Not detected, (BEAKER) (test code = 3207) Equivocal Other viruses and bacteria not targeted by this PCR panel cannot be excluded; therefore clinical correlation and follow up of serology, culture results, and other molecular studies is required. The results are not intended to be used as the sole means for clinical diagnosis or patient management decisions. This sample was tested at the [facility] Molecular Diagnostics Laboratory using the SagebinArray Respiratory Panel. It is FDA cleared and has been verified and approved by the [facility] Molecular Diagnostics Laboratory for clinical use on nasopharyngeal swab specimens.The performance of the FilmArrayRP has not been established in individuals who received influenza vaccine. Recent administration of a nasal influenza vaccine may cause false positive results for Influenza A and/orInfluenza B.[id number] 06:22:00 Test Item Value Reference Range Interpretation Comments MAGNESIUM (BEAKER) 2.2 mg/dL 1.6-2.6 Specimen slightly (test code = 627) hemolyzed BASIC METABOLIC [id number] 06:22:00 Test Item Value Reference Range Interpretation Comments SODIUM (BEAKER) 135 meq/L 136-145 L (test code = 381) POTASSIUM (BEAKER) 4.3 meq/L 3.5-5.1 Specimen slightly (test code = 379) hemolyzed CHLORIDE (BEAKER) 101 meq/L 98-107 (test code = 382) CO2 (BEAKER) (test 27 meq/L 22-29 code = 355) BLOOD UREA NITROGEN 13 mg/dL 7-21 (BEAKER) (test code = 354) CREATININE (BEAKER) 1.20 mg/dL 0.57-1.25 Specimen slightly (test code = 358) hemolyzed GLUCOSE RANDOM 96 mg/dL 70-105 (BEAKER) (test code = 652) CALCIUM (BEAKER) 9.2 mg/dL 8.4-10.2 (test code = 697) EGFR (BEAKER) (test 80 mL/min/1.73 ESTIMA JOANN GFR IS code = 1092) sq m NOT ACCURATE CREATININE CLEARANCE IN PREDICTING GLOMERULAR FILTRATION RATE . ESTIMATED GFR I S NOT APPLICABLE FOR DIALYSIS PATIEN TS. CBC W/PLT COUNT & AUTO [id number] 06:01:00 Test Item Value Reference Range Interpretation Comments WHITE BLOOD CELL COUNT (BEAKER) 2.9 K/ L 3.5-10.5 L (test code = 775) RED BLOOD CELL COUNT (BEAKER) 4.43 M/ L 4.63-6.08 L (test code = 761) HEMOGLOBIN (BEAKER) (test code = 13.5 GM/DL 13.7-17.5 L 410) HEMATOCRIT (BEAKER) (test code = 39.1 % 40.1-51.0 L 411) MEAN CORPUSCULAR VOLUME (BEAKER) 88.3 fL 79.0-92.2 (test code = 753) MEAN CORPUSCULAR HEMOGLOBIN 30.5 pg 25.7-32.2 (BEAKER) (test code = 751) MEAN CORPUSCULAR HEMOGLOBIN CONC 34.5 GM/DL 32.3-36.5 (BEAKER) (test code = 752) RED CELL DISTRIBUTION WIDTH 13.4 % 11.6-14.4 (BEAKER) (test code = 412) PLATELET COUNT (BEAKER) (test 177 K/CU MM 150-450 code = 756) MEAN PLATELET VOLUME (BEAKER) 11.5 fL 9.4-12.4 (test code = 754) NUCLEATED RED BLOOD CELLS 0 /100 WBC 0-0 (BEAKER) (test code = 413) NEUTROPHILS RELATIVE PERCENT 32 % (BEAKER) (test code = 429) LYMPHOCYTES RELATIVE PERCENT 51 % (BEAKER) (test code = 430) MONOCYTES RELATIVE PERCENT 8 % (BEAKER) (test code = 431) EOSINOPHILS RELATIVE PERCENT 8 % (BEAKER) (test code = 432) BASOPHILS RELATIVE PERCENT 1 % (BEAKER) (test code = 437) NEUTROPHILS ABSOLUTE COUNT 0.91 K/ L 1.78-5.38 L (BEAKER) (test code = 670) LYMPHOCYTES ABSOLUTE COUNT 1.47 K/ L 1.32-3.57 (BEAKER) (test code = 414) MONOCYTES ABSOLUTE COUNT (BEAKER) 0.24 K/ L 0.30-0.82 L (test code = 415) EOSINOPHILS ABSOLUTE COUNT 0.22 K/ L 0.04-0.54 (BEAKER) (test code = 416) BASOPHILS ABSOLUTE COUNT (BEAKER) 0.02 K/ L 0.01-0.08 (test code = 417) IMMATURE GRANULOCYTES-RELATIVE 0 % 0-1 PERCENT (BEAKER) (test code = 2801) CBC W/PLT COUNT & AUTO [id number] 07:32:00 Test Item Value Reference Range Interpretation Comments WHITE BLOOD CELL COUNT (BEAKER) 2.4 K/ L 3.5-10.5 L (test code = 775) RED BLOOD CELL COUNT (BEAKER) 4.33 M/ L 4.63-6.08 L (test code = 761) HEMOGLOBIN (BEAKER) (test code = 13.1 GM/DL 13.7-17.5 L 410) HEMATOCRIT (BEAKER) (test code = 38.5 % 40.1-51.0 L 411) MEAN CORPUSCULAR VOLUME (BEAKER) 88.9 fL 79.0-92.2 (test code = 753) MEAN CORPUSCULAR HEMOGLOBIN 30.3 pg 25.7-32.2 (BEAKER) (test code = 751) MEAN CORPUSCULAR HEMOGLOBIN CONC 34.0 GM/DL 32.3-36.5 (BEAKER) (test code = 752) RED CELL DISTRIBUTION WIDTH 13.3 % 11.6-14.4 (BEAKER) (test code = 412) PLATELET COUNT (BEAKER) (test 154 K/CU MM 150-450 code = 756) MEAN PLATELET VOLUME (BEAKER) 11.1 fL 9.4-12.4 (test code = 754) NUCLEATED RED BLOOD CELLS 0 /100 WBC 0-0 (BEAKER) (test code = 413) (CELLAVISION MANUAL DIFF)2019-03-28 07:32:00 Test Item Value Reference Range Interpretation Comments NEUTROPHILS - REL 25 % (CELLAVISION)(BEAKER) (test code = 2816) LYMPHOCYTES - REL 57 % (CELLAVISION)(BEAKER) (test code = 2817) MONOCYTES - REL 9 % (CELLAVISION)(BEAKER) (test code = 2818) EOSINOPHILS - REL 5 % (CELLAVISION)(BEAKER) (test code = 2819) BASOPHILS - REL 1 % (CELLAVISION)(BEAKER) (test code = 2820) BANDS - REL (CELLAVISION)(BEAKER) 3 % 0-10 (test code = 2826) NEUTROPHILS - ABS 0.60 K/ul 1.78-5.38 L (CELLAVISION)(BEAKER) (test code = 2830) LYMPHOCYTES - ABS 1.37 K/ul 1.32-3.57 (CELLAVISION)(BEAKER) (test code = 2831) MONOCYTES - ABS 0.22 K/uL 0.30-0.82 L (CELLAVISION)(BEAKER) (test code = 2832) EOSINOPHILS - ABS 0.12 K/uL 0.04-0.54 (CELLAVISION)(BEAKER) (test code = 2834) BASOPHILS - ABS 0.02 K/uL 0.01-0.08 (CELLAVISION)(BEAKER) (test code = 2835) BANDS - ABS (CELLAVISION)(BEAKER) 0.07 K/uL 0.00-0.80 (test code = 2840) TOTAL COUNTED (BEAKER) (test code = 100 1351) WBC MORPHOLOGY (BEAKER) (test code Normal = 487) LARGE PLT(BEAKER) (test code = Present 2156) POIKILOCYTES (BEAKER) (test code = 1+ few 966) RAJINDER CELLS (BEAKER) (test code = 1+ few 474) ARTIFACT (CELLAVISION)(BEAKER) Present (test code = 3432) PLATELET CONCENTRATION Adequate (CELLAVISION)(BEAKER) (test code = 3438) Received comment: User comments: Slide comments:CALCIUM, [id number] 05:25:00 Test Item Value Reference Range Interpretation Comments CALCIUM IONIZED (BEAKER) (test 1.14 mmol/L 1.12-1.27 code = 698) PH, BLOOD (BEAKER) (test code = 7.41 1810) [id number] 05:04:00 Test Item Value Reference Range Interpretation Comments PHOSPHORUS (BEAKER) (test code = 2.6 mg/dL 2.3-4.7 604) [id number] 05:04:00 Test Item Value Reference Range Interpretation Comments MAGNESIUM (BEAKER) (test code = 1.9 mg/dL 1.6-2.6 627) BASIC METABOLIC [id number] 05:04:00 Test Item Value Reference Range Interpretation Comments SODIUM (BEAKER) 134 meq/L 136-145 L (test code = 381) POTASSIUM (BEAKER) 4.4 meq/L 3.5-5.1 (test code = 379) CHLORIDE (BEAKER) 101 meq/L 98-107 (test code = 382) CO2 (BEAKER) (test 27 meq/L 22-29 code = 355) BLOOD UREA NITROGEN 9 mg/dL 7-21 (BEAKER) (test code = 354) CREATININE (BEAKER) 1.12 mg/dL 0.57-1.25 (test code = 358) GLUCOSE RANDOM 103 mg/dL 70-105 (BEAKER) (test code = 652) CALCIUM (BEAKER) 9.0 mg/dL 8.4-10.2 (test code = 697) EGFR (BEAKER) (test 87 mL/min/1.73 ESTIMA JOANN GFR IS code = 1092) sq m NOT ACCURATE CREATININE CLEARANCE IN PREDICTING GLOMERULAR FILTRATION RATE . ESTIMATED GFR I S NOT APPLICABLE FOR DIALYSIS CRISTIAN TS. CT, [id number] 17:54:00FINAL REPORT CT scan of the abdomen and pelvis. HISTORY: Low-grade bowel obstruction. COMPARISON STUDY: April 16, 2019. TECHNIQUE: Contiguous helical slices were acquired through theabdomen and pelvis post administration of oral contrast. No intravenous contrast was administered. This exam was performed according to our department dose optimization program which includes automatedexposure control, adjustment of the mA and/or kV according to the patient's size and/or use of iterative reconstruction technique. FINDINGS: Atelectasis or fibrosis is seen in the right middle lobe. The abdomen and pelvis are limited by lack of contrast. The liver, spleen, and adrenal glands are unremarkable. There are three nonocclusive left- sided renal calculi measuring up to 4 mm in the lower pole. A 2 mm nonocclusive calculus is seen in the lower pole of the right kidney. The pancreas is fatty in filtrated. The gallbladder and biliary tree are unremarkable. There are multiple stool filled loops of colon which are distended measuring up to 7 mm in size. The small bowel is normal in caliber. Postsurgical changes are seen in the right colon. No free fluid or free air is seen. The aorta is normalin caliber. There is no suspicious adenopathy. Bone windows demonstrate no focal abnormality. IMPRESSION:1. Atelectasis or fibrosis in the right middle lobe with minimal bronchiectasis.2. Significant colonic stool consistent with constipation. No evidence of obstruction.3. Fatty atrophy of the pancreas. The patient likely has cystic fibrosis.4. Postsurgical changes in the right colon.5. Nonocclusive renal calculi. Signed: Ludin Rich [facility] Verified Date/Time: 03/27/2019 17:54:25 Reading Location: [facility] [id number] [facility] Consult Reading Room CBC W/PLT COUNT & AUTO [id number] 10:54:00 Test Item Value Reference Range Interpretation Comments WHITE BLOOD CELL COUNT (BEAKER) 2.7 K/ L 3.5-10.5 L (test code = 775) RED BLOOD CELL COUNT (BEAKER) 4.32 M/ L 4.63-6.08 L (test code = 761) HEMOGLOBIN (BEAKER) (test code = 13.1 GM/DL 13.7-17.5 L 410) HEMATOCRIT (BEAKER) (test code = 37.6 % 40.1-51.0 L 411) MEAN CORPUSCULAR VOLUME (BEAKER) 87.0 fL 79.0-92.2 (test code = 753) MEAN CORPUSCULAR HEMOGLOBIN 30.3 pg 25.7-32.2 (BEAKER) (test code = 751) MEAN CORPUSCULAR HEMOGLOBIN CONC 34.8 GM/DL 32.3-36.5 (BEAKER) (test code = 752) RED CELL DISTRIBUTION WIDTH 13.2 % 11.6-14.4 (BEAKER) (test code = 412) PLATELET COUNT (BEAKER) (test 157 K/CU MM 150-450 code = 756) MEAN PLATELET VOLUME (BEAKER) 11.0 fL 9.4-12.4 (test code = 754) NUCLEATED RED BLOOD CELLS 0 /100 WBC 0-0 (BEAKER) (test code = 413) (CELLAVISION MANUAL DIFF)2019-03-27 10:54:00 Test Item Value Reference Range Interpretation Comments NEUTROPHILS - REL 42 % (CELLAVISION)(BEAKER) (test code = 2816) LYMPHOCYTES - REL 43 % (CELLAVISION)(BEAKER) (test code = 2817) MONOCYTES - REL 7 % (CELLAVISION)(BEAKER) (test code = 2818) EOSINOPHILS - REL 3 % (CELLAVISION)(BEAKER) (test code = 2819) BANDS - REL (CELLAVISION)(BEAKER) 1 % 0-10 (test code = 2826) ATYPICAL LYMPHOCYTES - REL 3 % 0-0 H (CELLAVISION)(BEAKER) (test code = 2829) NEUTROPHILS - ABS 1.13 K/ul 1.78-5.38 L (CELLAVISION)(BEAKER) (test code = 2830) LYMPHOCYTES - ABS 1.16 K/ul 1.32-3.57 L (CELLAVISION)(BEAKER) (test code = 2831) MONOCYTES - ABS 0.19 K/uL 0.30-0.82 L (CELLAVISION)(BEAKER) (test code = 2832) EOSINOPHILS - ABS 0.08 K/uL 0.04-0.54 (CELLAVISION)(BEAKER) (test code = 2834) BANDS - ABS (CELLAVISION)(BEAKER) 0.03 K/uL 0.00-0.80 (test code = 2840) ATYPICAL LYMPHOCYTES - ABS 0.08 K/uL 0.00-0.00 H (CELLAVISION)(BEAKER) (test code = 2858) TOTAL COUNTED (BEAKER) (test code = 100 1351) RBC MORPHOLOGY (BEAKER) (test code Normal = 762) WBC MORPHOLOGY (BEAKER) (test code Normal = 487) PLT MORPHOLOGY (BEAKER) (test code Normal = 486) ARTIFACT (CELLAVISION)(BEAKER) Present (test code = 3432) PLATELET CONCENTRATION Adequate (CELLAVISION)(BEAKER) (test code = 3438) Received comment: User comments: Slide comments:[id number] 06:36:00 Test Item Value Reference Range Interpretation Comments PHOSPHORUS (BEAKER) (test code = 2.1 mg/dL 2.3-4.7 L 604) [id number] 06:36:00 Test Item Value Reference Range Interpretation Comments MAGNESIUM (BEAKER) (test code = 1.6 mg/dL 1.6-2.6 627) BASIC METABOLIC [id number] 06:36:00 Test Item Value Reference Range Interpretation Comments SODIUM (BEAKER) 131 meq/L 136-145 L (test code = 381) POTASSIUM (BEAKER) 4.3 meq/L 3.5-5.1 (test code = 379) CHLORIDE (BEAKER) 99 meq/L 98-107 (test code = 382) CO2 (BEAKER) (test 27 meq/L 22-29 code = 355) BLOOD UREA NITROGEN 7 mg/dL 7-21 (BEAKER) (test code = 354) CREATININE (BEAKER) 1.22 mg/dL 0.57-1.25 (test code = 358) GLUCOSE RANDOM 101 mg/dL 70-105 (BEAKER) (test code = 652) CALCIUM (BEAKER) 8.8 mg/dL 8.4-10.2 (test code = 697) EGFR (BEAKER) (test 79 mL/min/1.73 ESTIMA JOANN GFR IS code = 1092) sq m NOT ACCURATE CREATININE CLEARANCE IN PREDICTING GLOMERULAR FILTRATION RATE . ESTIMATED GFR I S NOT APPLICABLE FOR DIALYSIS PATIEN TS. CALCIUM, [id number] 06:23:00 Test Item Value Reference Range Interpretation Comments CALCIUM IONIZED (BEAKER) (test 1.14 mmol/L 1.12-1.27 code = 698) PH, BLOOD (BEAKER) (test code = 7.46 1810) RAD, ABDOMEN/KUB, 1 VIEW [id number] 16:14:00Reason for exam:->constipation FINAL REPORT EXAM: AP abdominal radiograph, 2 images HISTORY PROVIDED: Constipation COMPARISON: 03/24/2019 IMPRESSION:There are dilated loops of air-filled small bowel compatible with ileus, however obstruction is not completely excluded. While no definite free air is seen, this examination is insensitive for the detection of free air. A moderate to large amount of stool is seen within the colon. There is a surgical clip and suture material within the right abdomen. No acute osseous abnormality. Signed: Diane Morrell [facility] Verified Date/Time: 03/26/2019 16:14:33 Reading L ocation: [facility] Mammo Reading Room CBC W/PLT COUNT & AUTO [id number] 10:48:00 Test Item Value Reference Range Interpretation Comments WHITE BLOOD CELL COUNT (BEAKER) 2.8 K/ L 3.5-10.5 L (test code = 775) RED BLOOD CELL COUNT (BEAKER) 4.40 M/ L 4.63-6.08 L (test code = 761) HEMOGLOBIN (BEAKER) (test code = 13.3 GM/DL 13.7-17.5 L 410) HEMATOCRIT (BEAKER) (test code = 38.7 % 40.1-51.0 L 411) MEAN CORPUSCULAR VOLUME (BEAKER) 88.0 fL 79.0-92.2 (test code = 753) MEAN CORPUSCULAR HEMOGLOBIN 30.2 pg 25.7-32.2 (BEAKER) (test code = 751) MEAN CORPUSCULAR HEMOGLOBIN CONC 34.4 GM/DL 32.3-36.5 (BEAKER) (test code = 752) RED CELL DISTRIBUTION WIDTH 13.3 % 11.6-14.4 (BEAKER) (test code = 412) PLATELET COUNT (BEAKER) (test 149 K/CU MM 150-450 L code = 756) MEAN PLATELET VOLUME (BEAKER) 11.5 fL 9.4-12.4 (test code = 754) NUCLEATED RED BLOOD CELLS 0 /100 WBC 0-0 (BEAKER) (test code = 413) (MANUAL DIFFERENTIAL)2019-03-26 10:48:00 Test Item Value Reference Range Interpretation Comments NEUTROPHILS - REL (DIFF) (BEAKER) 37 % (test code = 1359) LYMPHOCYTES - REL (DIFF) (BEAKER) 41 % (test code = 1360) MONOCYTES - REL (DIFF) (BEAKER) 14 % (test code = 1361) EOSINOPHILS - REL (DIFF) (BEAKER) 2 % (test code = 1362) BASOPHILS - REL (DIFF) (BEAKER) 1 % (test code = 1363) BANDS - REL (DIFF) (BEAKER) (test 1 % 0-10 code = 1348) ATYPICAL LYMPHOCYTE - REL (DIFF) 4 % 0-0 H (BEAKER) (test code = 260) NEUTROPHILS - ABS (DIFF) (BEAKER) 1.04 K/ L 1.80-8.00 L (test code = 1365) LYMPHOCYTES - ABS (DIFF) (BEAKER) 1.15 K/ L 1.48-4.50 L (test code = 1366) MONOCYTES - ABS (DIFF) (BEAKER) 0.39 K/ L 0.00-1.30 (test code = 1367) EOSINOPHILS - ABS (DIFF) (BEAKER) 0.06 K/ L 0.00-0.50 (test code = 1368) BASOPHILS - ABS (DIFF) (BEAKER) 0.03 K/ L 0.00-0.20 (test code = 1369) BANDS-ABS (DIFF) (BEAKER) (test 0.0 K/ L 0.0-0.8 code = 1349) ATYPICAL LYMPHOCYTES - ABS (DIFF) 0.11 K/ L 0.00-0.00 H (BEAKER) (test code = 263) TOTAL COUNTED (BEAKER) (test code = 100 1351) BANDS + SEGMENTED NEUTROPHILS 1.06 (BEAKER) (test code = 1352) WBC MORPHOLOGY (BEAKER) (test code Normal = 487) PLT MORPHOLOGY (BEAKER) (test code Normal = 486) RBC MORPHOLOGY (BEAKER) (test code Normal = 762) CALCIUM, [id number] 06:53:00 Test Item Value Reference Range Interpretation Comments CALCIUM IONIZED (BEAKER) (test 1.14 mmol/L 1.12-1.27 code = 698) PH, BLOOD (BEAKER) (test code = 7.44 1810) [id number] 06:33:00 Test Item Value Reference Range Interpretation Comments PHOSPHORUS (BEAKER) (test code = 2.6 mg/dL 2.3-4.7 604) [id number] 06:33:00 Test Item Value Reference Range Interpretation Comments MAGNESIUM (BEAKER) (test code = 1.4 mg/dL 1.6-2.6 L 627) BASIC METABOLIC [id number] 06:33:00 Test Item Value Reference Range Interpretation Comments SODIUM (BEAKER) 132 meq/L 136-145 L (test code = 381) POTASSIUM (BEAKER) 4.3 meq/L 3.5-5.1 (test code = 379) CHLORIDE (BEAKER) 102 meq/L 98-107 (test code = 382) CO2 (BEAKER) (test 24 meq/L 22-29 code = 355) BLOOD UREA NITROGEN 9 mg/dL 7-21 (BEAKER) (test code = 354) CREATININE (BEAKER) 1.39 mg/dL 0.57-1.25 H (test code = 358) GLUCOSE RANDOM 97 mg/dL 70-105 (BEAKER) (test code = 652) CALCIUM (BEAKER) 9.2 mg/dL 8.4-10.2 (test code = 697) EGFR (BEAKER) (test 68 mL/min/1.73 ESTIMA JOANN GFR IS code = 1092) sq m NOT ACCURATE CREATININE CLEARANCE IN PREDICTING GLOMERULAR FILTRATION RATE . ESTIMATED GFR I S NOT APPLICABLE FOR DIALYSIS PATIEN TS. [id number] 06:28:00 Test Item Value Reference Range Interpretation Comments PHOSPHORUS (BEAKER) (test code = 2.8 mg/dL 2.3-4.7 604) [id number] 06:28:00 Test Item Value Reference Range Interpretation Comments MAGNESIUM (BEAKER) (test code = 1.7 mg/dL 1.6-2.6 627) BASIC METABOLIC [id number] 06:28:00 Test Item Value Reference Range Interpretation Comments SODIUM (BEAKER) 135 meq/L 136-145 L (test code = 381) POTASSIUM (BEAKER) 4.4 meq/L 3.5-5.1 (test code = 379) CHLORIDE (BEAKER) 105 meq/L 98-107 (test code = 382) CO2 (BEAKER) (test 24 meq/L 22-29 code = 355) BLOOD UREA NITROGEN 7 mg/dL 7-21 (BEAKER) (test code = 354) CREATININE (BEAKER) 1.30 mg/dL 0.57-1.25 H (test code = 358) GLUCOSE RANDOM 86 mg/dL 70-105 (BEAKER) (test code = 652) CALCIUM (BEAKER) 9.2 mg/dL 8.4-10.2 (test code = 697) EGFR (BEAKER) (test 73 mL/min/1.73 ESTIMA JOANN GFR IS code = 1092) sq m NOT ACCURATE CREATININE CLEARANCE IN PREDICTING GLOMERULAR FILTRATION RATE . ESTIMATED GFR I S NOT APPLICABLE FOR DIALYSIS PATIEN TS. CALCIUM, [id number] 06:27:00 Test Item Value Reference Range Interpretation Comments CALCIUM IONIZED (BEAKER) (test 1.18 mmol/L 1.12-1.27 code = 698) PH, BLOOD (BEAKER) (test code = 7.33 1810) CBC W/PLT COUNT & AUTO [id number] 14:47:00 Test Item Value Reference Range Interpretation Comments WHITE BLOOD CELL COUNT (BEAKER) 4.5 K/ L 3.5-10.5 (test code = 775) RED BLOOD CELL COUNT (BEAKER) 4.84 M/ L 4.63-6.08 (test code = 761) HEMOGLOBIN (BEAKER) (test code = 14.6 GM/DL 13.7-17.5 410) HEMATOCRIT (BEAKER) (test code = 43.4 % 40.1-51.0 411) MEAN CORPUSCULAR VOLUME (BEAKER) 89.7 fL 79.0-92.2 (test code = 753) MEAN CORPUSCULAR HEMOGLOBIN 30.2 pg 25.7-32.2 (BEAKER) (test code = 751) MEAN CORPUSCULAR HEMOGLOBIN CONC 33.6 GM/DL 32.3-36.5 (BEAKER) (test code = 752) RED CELL DISTRIBUTION WIDTH 13.5 % 11.6-14.4 (BEAKER) (test code = 412) PLATELET COUNT (BEAKER) (test 151 K/CU MM 150-450 code = 756) MEAN PLATELET VOLUME (BEAKER) 10.8 fL 9.4-12.4 (test code = 754) NUCLEATED RED BLOOD CELLS 0 /100 WBC 0-0 (BEAKER) (test code = 413) NEUTROPHILS RELATIVE PERCENT 48 % (BEAKER) (test code = 429) LYMPHOCYTES RELATIVE PERCENT 33 % (BEAKER) (test code = 430) MONOCYTES RELATIVE PERCENT 16 % (BEAKER) (test code = 431) EOSINOPHILS RELATIVE PERCENT 3 % (BEAKER) (test code = 432) BASOPHILS RELATIVE PERCENT 1 % (BEAKER) (test code = 437) NEUTROPHILS ABSOLUTE COUNT 2.16 K/ L 1.78-5.38 (BEAKER) (test code = 670) LYMPHOCYTES ABSOLUTE COUNT 1.47 K/ L 1.32-3.57 (BEAKER) (test code = 414) MONOCYTES ABSOLUTE COUNT (BEAKER) 0.72 K/ L 0.30-0.82 (test code = 415) EOSINOPHILS ABSOLUTE COUNT 0.13 K/ L 0.04-0.54 (BEAKER) (test code = 416) BASOPHILS ABSOLUTE COUNT (BEAKER) 0.03 K/ L 0.01-0.08 (test code = 417) IMMATURE GRANULOCYTES-RELATIVE 0 % 0-1 PERCENT (BEAKER) (test code = 2801) RAD, ABDOMEN/KUB, 1 VIEW [id number] 10:35:00Reason for exam:- >distentionShould this be performed at the bedside?->YesFINAL REPORT AP abdomen HISTORY: Distention COMPARISON: 03/21/2018 IMPRESSION:Decreased colonic stool burden. Some prominent aeration in the right lower quadrant. Recommend continued radiographic follow-up as developing ileus not excluded. Examination is insensitive for detection of free air. Signed: Angel Santillan MDReport Verified Date/Time: 03/24/2019 10:35:17 Reading Location: [facility] [id number] Ortho Consult Reading Room [id number] 07:21:00 Test Item Value Reference Range Interpretation Comments PHOSPHORUS (BEAKER) (test code = 2.4 mg/dL 2.3-4.7 604) [id number] 07:21:00 Test Item Value Reference Range Interpretation Comments MAGNESIUM (BEAKER) (test code = 1.4 mg/dL 1.6-2.6 L 627) BASIC METABOLIC [id number] 07:21:00 Test Item Value Reference Range Interpretation Comments SODIUM (BEAKER) 129 meq/L 136-145 L (test code = 381) POTASSIUM (BEAKER) 3.9 meq/L 3.5-5.1 (test code = 379) CHLORIDE (BEAKER) 104 meq/L 98-107 (test code = 382) CO2 (BEAKER) (test 20 meq/L 22-29 L code = 355) BLOOD UREA NITROGEN 9 mg/dL 7-21 (BEAKER) (test code = 354) CREATININE (BEAKER) 1.47 mg/dL 0.57-1.25 H (test code = 358) GLUCOSE RANDOM 115 mg/dL 70-105 H (BEAKER) (test code = 652) CALCIUM (BEAKER) 8.5 mg/dL 8.4-10.2 (test code = 697) EGFR (BEAKER) (test 63 mL/min/1.73 ESTIMA JOANN GFR IS code = 1092) sq m NOT ACCURATE CREATININE CLEARANCE IN PREDICTING GLOMERULAR FILTRATION RATE . ESTIMATED GFR I S NOT APPLICABLE FOR DIALYSIS PATIEN TS. CALCIUM, [id number] 06:37:00 Test Item Value Reference Range Interpretation Comments CALCIUM IONIZED (BEAKER) (test 1.14 mmol/L 1.12-1.27 code = 698) PH, BLOOD (BEAKER) (test code = 7.43 1810) POCT-GLUCOSE [id number] 18:06:00 Test Item Value Reference Range Interpretation Comments POC-GLUCOSE METER 106 mg/dL 70-[address] [facility] 67[address] (BEAKER) (test code = [place] 1538) [address] CALCIUM, [id number] 13:41:00 Test Item Value Reference Range Interpretation Comments CALCIUM IONIZED (BEAKER) (test 0.83 mmol/L 1.12-1.27 L code = 698) PH, BLOOD (BEAKER) (test code = 7.47 1810) POCT-GLUCOSE [id number] 11:59:00 Test Item Value Reference Range Interpretation Comments POC-GLUCOSE METER 93 mg/dL 70-[address] [facility] [address] (BEAKER) (test code = [place] [address] 1538) [id number] 10:39:00 Test Item Value Reference Range Interpretation Comments MAGNESIUM (BEAKER) 1.6 mg/dL 1.6-2.6 Specimen slightly (test code = 627) hemolyzed [id number] 10:39:00 Test Item Value Reference Range Interpretation Comments PHOSPHORUS (BEAKER) 2.5 mg/dL 2.3-4.7 Specimen slightly (test code = 604) hemolyzed BASIC METABOLIC [id number] 10:39:00 Test Item Value Reference Range Interpretation Comments SODIUM (BEAKER) 130 meq/L 136-145 L (test code = 381) POTASSIUM (BEAKER) 4.3 meq/L 3.5-5.1 Specimen slightly (test code = 379) hemolyzed CHLORIDE (BEAKER) 106 meq/L 98-107 (test code = 382) CO2 (BEAKER) (test 15 meq/L 22-29 L code = 355) BLOOD UREA NITROGEN 11 mg/dL 7-21 (BEAKER) (test code = 354) CREATININE (BEAKER) 1.46 mg/dL 0.57-1.25 H Specimen slightly (test code = 358) hemolyzed GLUCOSE RANDOM 68 mg/dL 70-105 L (BEAKER) (test code = 652) CALCIUM (BEAKER) 9.1 mg/dL 8.4-10.2 (test code = 697) EGFR (BEAKER) (test 64 mL/min/1.73 ESTIMA JOANN GFR IS code = 1092) sq m NOT ACCURATE CREATININE CLEARANCE IN PREDICTING GLOMERULAR FILTRATION RATE . ESTIMATED GFR I S NOT APPLICABLE FOR DIALYSIS PATIEN TS. CBC W/PLT COUNT & AUTO [id number] 10:13:00 Test Item Value Reference Range Interpretation Comments WHITE BLOOD CELL COUNT (BEAKER) 5.0 K/ L 3.5-10.5 (test code = 775) RED BLOOD CELL COUNT (BEAKER) 4.78 M/ L 4.63-6.08 (test code = 761) HEMOGLOBIN (BEAKER) (test code = 14.5 GM/DL 13.7-17.5 410) HEMATOCRIT (BEAKER) (test code = 43.5 % 40.1-51.0 411) MEAN CORPUSCULAR VOLUME (BEAKER) 91.0 fL 79.0-92.2 (test code = 753) MEAN CORPUSCULAR HEMOGLOBIN 30.3 pg 25.7-32.2 (BEAKER) (test code = 751) MEAN CORPUSCULAR HEMOGLOBIN CONC 33.3 GM/DL 32.3-36.5 (BEAKER) (test code = 752) RED CELL DISTRIBUTION WIDTH 13.5 % 11.6-14.4 (BEAKER) (test code = 412) PLATELET COUNT (BEAKER) (test 157 K/CU MM 150-450 code = 756) MEAN PLATELET VOLUME (BEAKER) 10.9 fL 9.4-12.4 (test code = 754) NUCLEATED RED BLOOD CELLS 0 /100 WBC 0-0 (BEAKER) (test code = 413) NEUTROPHILS RELATIVE PERCENT 54 % (BEAKER) (test code = 429) LYMPHOCYTES RELATIVE PERCENT 33 % (BEAKER) (test code = 430) MONOCYTES RELATIVE PERCENT 10 % (BEAKER) (test code = 431) EOSINOPHILS RELATIVE PERCENT 3 % (BEAKER) (test code = 432) BASOPHILS RELATIVE PERCENT 1 % (BEAKER) (test code = 437) NEUTROPHILS ABSOLUTE COUNT 2.68 K/ L 1.78-5.38 (BEAKER) (test code = 670) LYMPHOCYTES ABSOLUTE COUNT 1.63 K/ L 1.32-3.57 (BEAKER) (test code = 414) MONOCYTES ABSOLUTE COUNT (BEAKER) 0.48 K/ L 0.30-0.82 (test code = 415) EOSINOPHILS ABSOLUTE COUNT 0.14 K/ L 0.04-0.54 (BEAKER) (test code = 416) BASOPHILS ABSOLUTE COUNT (BEAKER) 0.03 K/ L 0.01-0.08 (test code = 417) IMMATURE GRANULOCYTES-RELATIVE 0 % 0-1 PERCENT (BEAKER) (test code = 2801) POCT-GLUCOSE [id number] 06:33:00 Test Item Value Reference Range Interpretation Comments POC-GLUCOSE METER 74 mg/dL 70-[address] [facility] [address] (BEAKER) (test code = [place] [address] 1538) [id number] 07:02:00 Test Item Value Reference Range Interpretation Comments MAGNESIUM (BEAKER) (test code = 1.6 mg/dL 1.6-2.6 627) BASIC METABOLIC [id number] 07:02:00 Test Item Value Reference Range Interpretation Comments SODIUM (BEAKER) 133 meq/L 136-145 L (test code = 381) POTASSIUM (BEAKER) 4.2 meq/L 3.5-5.1 (test code = 379) CHLORIDE (BEAKER) 108 meq/L 98-107 H (test code = 382) CO2 (BEAKER) (test 21 meq/L 22-29 L code = 355) BLOOD UREA NITROGEN 16 mg/dL 7-21 (BEAKER) (test code = 354) CREATININE (BEAKER) 1.31 mg/dL 0.57-1.25 H (test code = 358) GLUCOSE RANDOM 107 mg/dL 70-105 H (BEAKER) (test code = 652) CALCIUM (BEAKER) 8.8 mg/dL 8.4-10.2 (test code = 697) EGFR (BEAKER) (test 72 mL/min/1.73 ESTIMA JOANN GFR IS code = 1092) sq m NOT ACCURATE CREATININE CLEARANCE IN PREDICTING GLOMERULAR FILTRATION RATE . ESTIMATED GFR I S NOT APPLICABLE FOR DIALYSIS PATIEN TS. RAD, ABDOMEN SERIES W/ UPRIGHT PA [id number] 00:30:00Reason for exam:- >SBOReason for exam:->EMESISFINAL REPORT Abdominal series with 2 views of the abdomen and single view of the chest Clinical indication: Abdominal distention. Emesis. History of cystic fibrosis. Impression: Chest: Compared with chest radiograph 08/29/2018 Mild central bronchiectasis, mild bronchial wall thickening and subtle streaky opacities are again noted in both lungs and compatible with cystic fibrosis.Although superimposed infection cannot be excluded there is no definite evidence of new focal lung consolidation. Heart size is normal. Mediastinal contours are sharp, smooth and stable. No evidence ofan acute osseous abnormality or pneumothorax. Abdomen: Compared with abdominal-pelvic CT 02/14/2019. Alarge volume of inspissated stool is again noted throughout the colon and compatible with constipation. Gaseous distention of upstream loops of small bowel may reflect associated bowel dysmotility. However, small bowel obstruction cannot be excluded. Segments of small bowel also demonstrate mild wall thickening, nonspecific but can be associated with an enteritis. No definite evidence of free air below the diaphragm. A surgical clip is again noted in the right mid abdomen. No definite pathologic abdominal or pelvic calcifications. CT could be performed for further evaluation if clinically appropriate. Signed: Eamon Nagy MDReport Verified Date/Time: 03/22/2019 00:30:32 Reading Location: [address] Reading Room URINALYSIS W/ [id number] 21:18:00 Test Item Value Reference Range Interpretation Comments COLOR (BEAKER) (test code = 470) Yellow CLARITY (BEAKER) (test code = 469) Clear SPECIFIC GRAVITY UA (BEAKER) (test 1.016 1.001-1.035 code = 468) PH UA (BEAKER) (test code = 467) 6.0 5.0-8.0 PROTEIN UA (BEAKER) (test code = Negative Negative 464) GLUCOSE UA (BEAKER) (test code = Negative Negative 365) KETONES UA (BEAKER) (test code = Negative Negative 371) BILIRUBIN UA (BEAKER) (test code = Negative Negative 462) BLOOD UA (BEAKER) (test code = 461) Negative Negative NITRITE UA (BEAKER) (test code = Negative Negative 465) LEUKOCYTE ESTERASE UA (BEAKER) Negative Negative (test code = 466) UROBILINOGEN UA (BEAKER) (test code 0.2 mg/dL 0.2-1.0 = 463) RBC UA (BEAKER) (test code = 519) 0 /HPF WBC UA (BEAKER) (test code = 520) 0 /HPF SOURCE(BEAKER) (test code = 2795) [id number] 20:16:00 Test Item Value Reference Range Interpretation Comments LIPASE (BEAKER) (test code = 749) < U/L 8-78 L BASIC METABOLIC [id number] 20:14:00 Test Item Value Reference Range Interpretation Comments SODIUM (BEAKER) 133 meq/L 136-145 L (test code = 381) POTASSIUM (BEAKER) 4.3 meq/L 3.5-5.1 (test code = 379) CHLORIDE (BEAKER) 107 meq/L 98-107 (test code = 382) CO2 (BEAKER) (test 22 meq/L 22-29 code = 355) BLOOD UREA NITROGEN 21 mg/dL 7-21 (BEAKER) (test code = 354) CREATININE (BEAKER) 1.63 mg/dL 0.57-1.25 H (test code = 358) GLUCOSE RANDOM 97 mg/dL 70-105 (BEAKER) (test code = 652) CALCIUM (BEAKER) 9.1 mg/dL 8.4-10.2 (test code = 697) EGFR (BEAKER) (test 56 mL/min/1.73 ESTIMA JOANN GFR IS code = 1092) sq m NOT ACCURATE CREATININE CLEARANCE IN PREDICTING GLOMERULAR FILTRATION RATE . ESTIMATED GFR I S NOT APPLICABLE FOR DIALYSIS PATIEN TS. HEPATIC FUNCTION [id number] 20:14:00 Test Item Value Reference Range Interpretation Comments TOTAL PROTEIN (BEAKER) (test code = 7.6 gm/dL 6.0-8.3 770) ALBUMIN (BEAKER) (test code = 1145) 4.2 g/dL 3.5-5.0 BILIRUBIN TOTAL (BEAKER) (test code 0.4 mg/dL 0.2-1.2 = 377) BILIRUBIN DIRECT (BEAKER) (test 0.2 mg/dL 0.1-0.5 code = 706) ALKALINE PHOSPHATASE (BEAKER) (test 111 U/L 40-150 code = 346) AST (SGOT) (BEAKER) (test code = 27 U/L 5-34 353) ALT (SGPT) (BEAKER) (test code = 36 U/L 6-55 347) CBC W/PLT COUNT & AUTO [id number] 19:59:00 Test Item Value Reference Range Interpretation Comments WHITE BLOOD CELL COUNT (BEAKER) 6.3 K/ L 3.5-10.5 (test code = 775) RED BLOOD CELL COUNT (BEAKER) 4.71 M/ L 4.63-6.08 (test code = 761) HEMOGLOBIN (BEAKER) (test code = 14.2 GM/DL 13.7-17.5 410) HEMATOCRIT (BEAKER) (test code = 43.3 % 40.1-51.0 411) MEAN CORPUSCULAR VOLUME (BEAKER) 91.9 fL 79.0-92.2 (test code = 753) MEAN CORPUSCULAR HEMOGLOBIN 30.1 pg 25.7-32.2 (BEAKER) (test code = 751) MEAN CORPUSCULAR HEMOGLOBIN CONC 32.8 GM/DL 32.3-36.5 (BEAKER) (test code = 752) RED CELL DISTRIBUTION WIDTH 13.6 % 11.6-14.4 (BEAKER) (test code = 412) PLATELET COUNT (BEAKER) (test 203 K/CU MM 150-450 code = 756) MEAN PLATELET VOLUME (BEAKER) 10.8 fL 9.4-12.4 (test code = 754) NUCLEATED RED BLOOD CELLS 0 /100 WBC 0-0 (BEAKER) (test code = 413) NEUTROPHILS RELATIVE PERCENT 49 % (BEAKER) (test code = 429) LYMPHOCYTES RELATIVE PERCENT 35 % (BEAKER) (test code = 430) MONOCYTES RELATIVE PERCENT 13 % (BEAKER) (test code = 431) EOSINOPHILS RELATIVE PERCENT 3 % (BEAKER) (test code = 432) BASOPHILS RELATIVE PERCENT 1 % (BEAKER) (test code = 437) NEUTROPHILS ABSOLUTE COUNT 3.07 K/ L 1.78-5.38 (BEAKER) (test code = 670) LYMPHOCYTES ABSOLUTE COUNT 2.17 K/ L 1.32-3.57 (BEAKER) (test code = 414) MONOCYTES ABSOLUTE COUNT (BEAKER) 0.83 K/ L 0.30-0.82 H (test code = 415) EOSINOPHILS ABSOLUTE COUNT 0.16 K/ L 0.04-0.54 (BEAKER) (test code = 416) BASOPHILS ABSOLUTE COUNT (BEAKER) 0.04 K/ L 0.01-0.08 (test code = 417) IMMATURE GRANULOCYTES-RELATIVE 0 % 0-1 PERCENT (BEAKER) (test code = 2801) POCT-GLUCOSE [id number] 21:18:00 Test Item Value Reference Range Interpretation Comments POC-GLUCOSE METER 155 mg/dL 70-110 H TESTED AT [facility] 6720 (BEAKER) (test code = [facility] 1538) [address] POCT-GLUCOSE [id number] 12:24:00 Test Item Value Reference Range Interpretation Comments POC-GLUCOSE METER 179 mg/dL 70-110 H TESTED AT [place] [address] ([facility]) (test code = [facility] 1538) [address] POCT-GLUCOSE [id number] 09:01:00 Test Item Value Reference Range Interpretation Comments POC-GLUCOSE METER 79 mg/dL 70-110 TESTED AT [place] [address] ([facility]) (test code = [facility] [address] 1538) POCT-GLUCOSE [id number] 21:50:00 Test Item Value Reference Range Interpretation Comments POC-GLUCOSE METER 134 mg/dL 70-110 H TESTED AT [place] [address] ([facility]) (test code = [facility] 1538) [id number] BASIC METABOLIC [id number] 06:49:00 Test Item Value Reference Range Interpretation Comments SODIUM (BEAKER) 136 meq/L 136-145 (test code = 381) POTASSIUM (BEAKER) 4.5 meq/L 3.5-5.1 Specimen slightly (test code = 379) hemolyzed CHLORIDE (BEAKER) 109 meq/L 98-107 H (test code = 382) CO2 (BEAKER) (test 24 meq/L 22-29 code = 355) BLOOD UREA NITROGEN 9 mg/dL 7-21 (BEAKER) (test code = 354) CREATININE (BEAKER) 1.03 mg/dL 0.57-1.25 Specimen slightly (test code = 358) hemolyzed GLUCOSE RANDOM 88 mg/dL 70-105 (BEAKER) (test code = 652) CALCIUM (BEAKER) 8.4 mg/dL 8.4-10.2 (test code = 697) EGFR (BEAKER) (test 96 mL/min/1.73 ESTIMA JOANN GFR IS code = 1092) sq m NOT ACCURATE CREATININE CLEARANCE IN PREDICTING GLOMERULAR FILTRATION RATE . ESTIMATED GFR I S NOT APPLICABLE FOR DIALYSIS PATIEN TS. CBC W/PLT COUNT & AUTO [id number] 06:27:00 Test Item Value Reference Range Interpretation Comments WHITE BLOOD CELL COUNT (BEAKER) 4.3 K/ L 3.5-10.5 (test code = 775) RED BLOOD CELL COUNT (BEAKER) 3.78 M/ L 4.63-6.08 L (test code = 761) HEMOGLOBIN (BEAKER) (test code = 11.5 GM/DL 13.7-17.5 L 410) HEMATOCRIT (BEAKER) (test code = 35.4 % 40.1-51.0 L 411) MEAN CORPUSCULAR VOLUME (BEAKER) 93.7 fL 79.0-92.2 H (test code = 753) MEAN CORPUSCULAR HEMOGLOBIN 30.4 pg 25.7-32.2 (BEAKER) (test code = 751) MEAN CORPUSCULAR HEMOGLOBIN CONC 32.5 GM/DL 32.3-36.5 (BEAKER) (test code = 752) RED CELL DISTRIBUTION WIDTH 13.7 % 11.6-14.4 (BEAKER) (test code = 412) PLATELET COUNT (BEAKER) (test 152 K/CU MM 150-450 code = 756) MEAN PLATELET VOLUME (BEAKER) 11.3 fL 9.4-12.4 (test code = 754) NUCLEATED RED BLOOD CELLS 0 /100 WBC 0-0 (BEAKER) (test code = 413) NEUTROPHILS RELATIVE PERCENT 44 % (BEAKER) (test code = 429) LYMPHOCYTES RELATIVE PERCENT 41 % (BEAKER) (test code = 430) MONOCYTES RELATIVE PERCENT 9 % (BEAKER) (test code = 431) EOSINOPHILS RELATIVE PERCENT 5 % (BEAKER) (test code = 432) BASOPHILS RELATIVE PERCENT 1 % (BEAKER) (test code = 437) NEUTROPHILS ABSOLUTE COUNT 1.88 K/ L 1.78-5.38 (BEAKER) (test code = 670) LYMPHOCYTES ABSOLUTE COUNT 1.76 K/ L 1.32-3.57 (BEAKER) (test code = 414) MONOCYTES ABSOLUTE COUNT (BEAKER) 0.40 K/ L 0.30-0.82 (test code = 415) EOSINOPHILS ABSOLUTE COUNT 0.20 K/ L 0.04-0.54 (BEAKER) (test code = 416) BASOPHILS ABSOLUTE COUNT (BEAKER) 0.02 K/ L 0.01-0.08 (test code = 417) IMMATURE GRANULOCYTES-RELATIVE 0 % 0-1 PERCENT (BEAKER) (test code = 2801) POCT-GLUCOSE [id number] 22:51:00 Test Item Value Reference Range Interpretation Comments POC-GLUCOSE METER 128 mg/dL 70-[address] [facility] [address] ([place]) (test code = [place] 1538) [address] [address], [id number] 23:14:00FINAL REPORT ABDOMINAL AND PELVIS CT DATED 02/14/2019 COMPARISON: October 25, 2018 CLINICAL INFORMATION: Abdominal pain, unspecified TECHNIQUE: Axial images of the abdomen and pelvis were obtained from diaphragm to the pubic symphysis with intravenous contrast. This exam was performed according to our departmental dose-optimization program, which includes automated exposure control, adjustment of the mA and/or kV according to patient size and/or use of interactive reconstruction technique. COMMENT: Liver and spleen are normal in size without focal abnormality. Gallbladder is contracted. No gallstone or biliary dilatation is noted. Pancreas is fatty replaced. The Adrenals are unremarkable. Both kidneys are normal in size and functioning. No hydronephrosis, hydroureter, urolithiasis is seen. Multiple dilated small bowel loops are seen in the abdomen and pelvis measuring up to 5.2 cm in size. There is focal wall thickening in the distal small bowel. Sutures is seen in the regionof the ascending colon from prior appendectomy. Large amount fecal material is seen in the large bowel suggestive constipation. No adenopathy or ascites is present. IMPRESSION: 1. Distal small bowel obs truction.2. Constipation.3. Atrophic pancreas compatible with patient's known history of cystic fibrosis. Signed: Carmelo Tierney MDReport Verified Date/Time: 02/14/2019 23:14:03 Reading Location: [address] Consult Reading Room LIPASE 2019-02-14 21:10:00 Test Item Value Reference Range Interpretation Comments LIPASE (BEAKER) (test code = 749) < U/L 8-78 L COMPREHENSIVE METABOLIC [id number] 21:09:00 Test Item Value Reference Range Interpretation Comments TOTAL PROTEIN 6.7 gm/dL 6.0-8.3 (BEAKER) (test code = 770) ALBUMIN (BEAKER) 3.9 g/dL 3.5-5.0 (test code = 1145) ALKALINE PHOSPHATASE 93 U/L 40-150 (BEAKER) (test code = 346) BILIRUBIN TOTAL 0.6 mg/dL 0.2-1.2 (BEAKER) (test code = 377) SODIUM (BEAKER) (test 139 meq/L 136-145 code = 381) POTASSIUM (BEAKER) 3.8 meq/L 3.5-5.1 (test code = 379) CHLORIDE (BEAKER) 105 meq/L 98-107 (test code = 382) CO2 (BEAKER) (test 27 meq/L 22-29 code = 355) BLOOD UREA NITROGEN 14 mg/dL 7-21 (BEAKER) (test code = 354) CREATININE (BEAKER) 1.12 mg/dL 0.57-1.25 (test code = 358) GLUCOSE RANDOM 92 mg/dL 70-105 (BEAKER) (test code = 652) CALCIUM (BEAKER) 9.4 mg/dL 8.4-10.2 (test code = 697) AST (SGOT) (BEAKER) 29 U/L 5-34 (test code = 353) ALT (SGPT) (BEAKER) 37 U/L 6-55 (test code = 347) EGFR (BEAKER) (test 87 mL/min/1.73 ESTIMA JOANN GFR IS code = 1092) sq m NOT ACCURATE CREATININE CLEARANCE IN PREDICTING GLOMERULAR FILTRATION RATE . ESTIMATED GFR I S NOT APPLICABLE FOR DIALYSIS PATIEN TS. LACTIC ACID, [id number] 21:04:00 Test Item Value Reference Range Interpretation Comments LACTATE BLOOD VENOUS (2) (BEAKER) 0.8 mmol/L 0.5-2.2 (test code = 2872) BLOOD GAS, [id number] 21:04:00 Test Item Value Reference Range Interpretation Comments PH VENOUS (BEAKER) (test code = 7.50 7.32-7.42 H 701) PCO2 VENOUS (BEAKER) (test code = 36 mmHg 41-51 L 755) PO2 VENOUS (BEAKER) (test code = 24 mmHg 25-40 L 702) O2 SATURATION VENOUS (BEAKER) 67.7 % 40.0-70.0 (test code = 703) HCO3 VENOUS (BEAKER) (test code = 29 mmol/L 21-29 705) BASE EXCESS VENOUS (BEAKER) (test 3.5 mmol/L -2.0-3.0 H code = 704) PATIENT TEMPERATURE (BEAKER) (test 32.0 C code = 1818) FIO2 (BEAKER) (test code = 1819) 21.0 % CBC W/PLT COUNT & AUTO [id number] 20:49:00 Test Item Value Reference Range Interpretation Comments WHITE BLOOD CELL COUNT (BEAKER) 9.5 K/ L 3.5-10.5 (test code = 775) RED BLOOD CELL COUNT (BEAKER) 4.23 M/ L 4.63-6.08 L (test code = 761) HEMOGLOBIN (BEAKER) (test code = 13.0 GM/DL 13.7-17.5 L 410) HEMATOCRIT (BEAKER) (test code = 39.0 % 40.1-51.0 L 411) MEAN CORPUSCULAR VOLUME (BEAKER) 92.2 fL 79.0-92.2 (test code = 753) MEAN CORPUSCULAR HEMOGLOBIN 30.7 pg 25.7-32.2 (BEAKER) (test code = 751) MEAN CORPUSCULAR HEMOGLOBIN CONC 33.3 GM/DL 32.3-36.5 (BEAKER) (test code = 752) RED CELL DISTRIBUTION WIDTH 13.6 % 11.6-14.4 (BEAKER) (test code = 412) PLATELET COUNT (BEAKER) (test 193 K/CU MM 150-450 code = 756) MEAN PLATELET VOLUME (BEAKER) 10.7 fL 9.4-12.4 (test code = 754) NUCLEATED RED BLOOD CELLS 0 /100 WBC 0-0 (BEAKER) (test code = 413) NEUTROPHILS RELATIVE PERCENT 61 % (BEAKER) (test code = 429) LYMPHOCYTES RELATIVE PERCENT 26 % (BEAKER) (test code = 430) MONOCYTES RELATIVE PERCENT 9 % (BEAKER) (test code = 431) EOSINOPHILS RELATIVE PERCENT 4 % (BEAKER) (test code = 432) BASOPHILS RELATIVE PERCENT 0 % (BEAKER) (test code = 437) NEUTROPHILS ABSOLUTE COUNT 5.77 K/ L 1.78-5.38 H (BEAKER) (test code = 670) LYMPHOCYTES ABSOLUTE COUNT 2.49 K/ L 1.32-3.57 (BEAKER) (test code = 414) MONOCYTES ABSOLUTE COUNT (BEAKER) 0.81 K/ L 0.30-0.82 (test code = 415) EOSINOPHILS ABSOLUTE COUNT 0.33 K/ L 0.04-0.54 (BEAKER) (test code = 416) BASOPHILS ABSOLUTE COUNT (BEAKER) 0.03 K/ L 0.01-0.08 (test code = 417) IMMATURE GRANULOCYTES-RELATIVE 0 % 0-1 PERCENT (BEAKER) (test code = 2801) AFB CULTURE + [id number] 10:54:00 Test Item Value Reference Interpretation Comments Range CULTURE (BEAKER) MYCOBACTERIUM A Mycobacter iu (test code = 1095) SPECIES species* - Most closely related to M.yongonense/M. mars eillenseIdentif icat ion and susceptibility performed by:[facility] , Dept. of Microbiology Research, Dr[facility] Rao Olvera [facility], [facility] [address] [address] Amikacin (test code mcg/mL S = 1) Clarithromycin mcg/mL S (test code = 42) AFB SMEAR (BEAKER) No acid fast (test code = 994) bacilli seen By partial 16S rRNA gene sequencing,this isolate matches the M.yongonense/M.marseillense type strains 99.8%. These species belong to a group of species within the M.avium complex referred to as MAC "X". Most isolates are single,grow in broth only, and not related to human disease.CF RESPIRATORY [id number] 00:29:00 Test Item Value Reference Range Interpretation Comments CULTURE (BEAKER) (test ESCHERICHIA COLI A < 1+ Escherichia code = 1095) coli Amikacin (test code = S 1) Ampicillin + Sulbactam S (test code = 6) Aztreonam (test code = S 32) Cefepime (test code = S 51) Cefoxitin (test code = S 68) Ceftazidime (test code S = 27) Ceftriaxone (test code S = 52) Ertapenem (test code = S 38) Gentamicin (test code S = 18) Levofloxacin (test R code = 22) Meropenem (test code = S 34) Nitrofurantoin (test S code = 23) Piperacillin + S Tazobactam (test code = 29) Tetracycline (test S code = 2) Tobramycin (test code S = 25) Trimethoprim + S Sulfamethoxazole (test code = 47) CULTURE (BEAKER) (test ESCHERICHIA COLI A < 1+ Escherichia code = 1095) coliof a second type Amikacin (test code = S 1) Ampicillin + Sulbactam S (test code = 6) Aztreonam (test code = S 32) Cefepime (test code = S 51) Cefoxitin (test code = R 68) Ceftazidime (test code S = 27) Ceftriaxone (test code S = 52) Ertapenem (test code = S 38) Gentamicin (test code S = 18) Levofloxacin (test R code = 22) Meropenem (test code = S 34) Nitrofurantoin (test S code = 23) Piperacillin + S Tazobactam (test code = 29) Tetracycline (test S code = 2) Tobramycin (test code S = 25) Trimethoprim + S Sulfamethoxazole (test code = 47) CULTURE (BEAKER) (test A 1+ Ps eudomonas code = 1095) aeruginosa (Mucoid-phenoty p e) 2+ Normal respiratory maria del carmen present- CT ABD PELVIS [id number] 23:53:00 Name: VELIA RIVERA [facility] : 1975 Age/S: 43 / M [address] Unit #: [id number] Loc: [place] [address] Phys: Angela Diaz MD Acct: [id number] Dis Date: Status: REG ER PHONE #: [phone] Exam Date: 11/20/2018 2355 FAX #: Reason: RLQ pain, hx of SBO EXAMS: CPT: [id number] CT ABD PELVIS W/CONT [id number] Site ID: [id number] CLINICAL HISTORY: Right lower quadrant pain, history of small bowel obstruction TECHNIQUE: Axial images of the abdomen and pelvis were obtained from diaphragm to the pubic symphysis with intravenous contrast. CT dose lowering technique utilized, with adjustmentof MA/kV according to patient size and automated exposure control. COMPARISON: CT abdomen and pelvisJune 2017 DISCUSSION: Mild lung base atelectasis. The heart size is normal. The liver is normal in size and contour, without focal abnormality. No biliary ductal dilatation. The spleen, pancreas and adrenal glands are unremarkable. Both kidneys are normal in size. 1 mm nonobstructing left upper and lower pole renal stones. No hydronephrosis or enhancing renal mass. Vascular structures are normal in caliber and appearance. Moderate volume of stool throughout the colon, with a patulous appearance to the cecum. No bowel obstruction or acute inflammatory change. Prostate gland and urinary bladder are unremarkable. No suspicious bony lesions. IMPRESSION: Moderate volume of stool throughout the colon, with a patulous appearance to the cecum. No bowel obstruction or acute inflammatory change. PAGE 1Signed Report (CONTINUED) Name: VELIA RIVERA [facility] : 1975 Age/S: 43 / M [address] Unit #: [id number] Loc: [place] [address] Phys: Angela Diaz MD Acct: [id number] Dis Date: Status: REG ER PHONE #: [phone] Exam Date: 11/20/2018 2350 FAX #: Reason: RLQ pain, hx of SBO EXAMS: CPT: [id number] CT ABD PELVIS W/CONT 30224 (Continued) at 2353 Reported and signed by: Florence Ferrera M.D. CC: Tejinder Burch MD; Angela Diaz MD; Yani Gonzalez NP Technologist:RT Jimmy(R)(CT); Lui CTDI: DLP: Trnscb Date/Time: 11/20/2018 (434) [id number] Orig Print D/T: S: 11/20/2018 (9852) CTDI: DLP: PAGE 2 Signed ReportBASI METABOLIC [id number] 23:24:00 Test Item Value Reference Range Interpretation Comments SODIUM (test code = NA) 139 mmol/L 134-147 N POTASSIUM (test code = 3.7 mmol/L 3.4-5.0 N K) CHLORIDE (test code = 109 mmol/L 100-108 H CL) CARBON DIOXIDE (test 24 mmol/L 21-32 N code = CO2) ANION GAP (test code = 6.0 GAP calc 4.0-15.0 N GAP) GLUCOSE (test code = 86 MG/DL 70-110 N GLU) BLOOD UREA NITROGEN 14 MG/DL 7-18 N (test code = BUN) GLOMERULAR FILTRATION >=60 max estimate >60 RATE (test code = GFR) estGFR CREATININE (test code = 1.1 MG/DL 0.8-1.3 N CREAT) CALCIUM (test code = CA) 8.3 MG/DL 8.5-10.1 L HEPATIC FUNCTION [id number] 23:24:00 Test Item Value Reference Range Interpretation Comments TOTAL PROTEIN (test code = PROT) 6.9 G/DL 6.4-8.2 N ALBUMIN (test code = ALB) 3.5 G/DL 3.4-5.0 N BILIRUBIN TOTAL (test code = BILT) 0.80 MG/DL 0.2-1.2 N BILIRUBIN DIRECT (test code = 0.20 MG/DL 0.00-0.30 N BILD) BILIRUBIN INDIRECT (test code = 0.60 MG/DL 0.2-1.2 N BILIND) SGOT/AST (test code = AST) 38 Unit/L 15-37 H SGPT/ALT (test code = ALT) 54 Unit/L 12-78 N ALKALINE PHOSPHATASE TOTAL (test 93 Unit/L 50-136 N code = ALKP) [id number] 23:24:00 Test Item Value Reference Range Interpretation Comments LIPASE (test code = LIP) 28 Unit/L 114-286 L URINALYSIS [id number] 23:21:00 Test Item Value Reference Range Interpretation Comments UA COLOR (test code = COLU) YELLOW discript YEL/STRAW UA APPEARANCE (test code = CLEAR discript CLEAR APPU) UA GLUCOSE DIPSTICK (test NEGATIVE mg/dL NEG code = DGLUU) UA BILIRUBIN DIPSTICK (test NEGATIVE mg/dL NEG code = BILU) UA KETONE DIPSTICK (test NEGATIVE mg/dL NEG code = KETU) UA SPECIFIC GRAVITY (test >=1.030 SG 1.005-1.030 A code = SGU) UA BLOOD DIPSTICK (test NEGATIVE mg/DL NEG code = INOCENTE) UA PH DIPSTICK (test code = 5.5 pH UNITS 5.0-7.0 NORTH) UA PROTEIN DIPSTICK (test NEGATIVE mg/dL NEG code = PROU) UA UROBILINIOGEN DIPSTICK 0.2 mg/dL <2.0 (test code = URO) UA NITRITE DIPSTICK (test NEGATIVE SCREEN NEG code = BRADLEY) UA LEUKOCYTE ESTERASE NEGATIVE Leuk/mcL NEGATIVE DIPSTICK (test code = LEUU) CBC W/AUTO [id number] 23:18:00 Test Item Value Reference Range Interpretation Comments WHITE BLOOD CELL (test code = 11.0 K/mm3 3.5-11.0 N WBC) RED BLOOD CELL (test code = RBC) 4.60 M/mm3 4.70-6.10 L HEMOGLOBIN (test code = HGB) 14.4 G/DL 12.3-15.9 N HEMATOCRIT (test code = HCT) 42.2 % 35.8-46.7 N MEAN CELL VOLUME (test code = 91.7 Fl 86.3-98.9 N MCV) MEAN CELL HGB (test code = MCH) 31.3 pg 28.9-34.4 N MEAN CELL HGB CONCETRATION (test 34.1 G/DL 32.1-34.5 N code = MCHC) RED CELL DISTRIBUTION WIDTH (test 13.6 SD 11.5-14.5 N code = RDW) PLATELET COUNT (test code = PLT) 173.0 K/mm3 150-450 N MEAN PLATELET VOLUME (test code = 11.90 fL 7.0-9.6 H MPV) NEUTROPHIL % (test code = NT%) 52.9 % 40-76 N LYMPHOCYTE % (test code = LY%) 33.5 % 20.5-51.1 N MONOCYTE % (test code = MO%) 9.0 % 1.7-9.3 N EOSINOPHIL % (test code = EO%) 4.3 % 0.0-6.0 N BASOPHIL % (test code = BA%) 0.3 % 0.0-2.0 N NEUTROPHIL # (test code = NT#) 5.82 K/mm3 1.8-7.6 N LYMPHOCYTE # (test code = LY#) 3.7 K/mm3 0.6-3.0 H MONOCYTE # (test code = MO#) 1.0 K/mm3 0.2-1.5 N EOSINOPHIL # (test code = EO#) 0.5 K/mm3 0.0-0.4 H BASOPHIL # (test code = BA#) 0.0 K/mm3 0.0-0.2 N MANUAL DIFF REQUIRED (test code = NO DIFF/SCN CRITERIA MDIFF) BASIC METABOLIC [id number] 23:12:00 Test Item Value Reference Range Interpretation Comments SODIUM (test code = NA) 139 mmol/L 134-147 N POTASSIUM (test code = K) 3.7 mmol/L 3.4-5.0 N CHLORIDE (test code = CL) 109 mmol/L 100-108 H CARBON DIOXIDE (test code = CO2) 24 mmol/L 21-32 N ANION GAP (test code = GAP) 6.0 GAP calc 4.0-15.0 N GLUCOSE (test code = GLU) 86 MG/DL 70-110 N BLOOD UREA NITROGEN (test code = 14 MG/DL 7-18 N BUN) GLOMERULAR FILTRATION RATE (test estGFR >60 code = GFR) CREATININE (test code = CREAT) MG/DL 0.8-1.3 CALCIUM (test code = CA) 8.3 MG/DL 8.5-10.1 L HEPATIC FUNCTION [id number] 23:12:00 Test Item Value Reference Range Interpretation Comments TOTAL PROTEIN (test code = PROT) G/DL 6.4-8.2 ALBUMIN (test code = ALB) G/DL 3.4-5.0 BILIRUBIN TOTAL (test code = BILT) MG/DL 0.2-1.2 BILIRUBIN DIRECT (test code = BILD) MG/DL 0.00-0.30 BILIRUBIN INDIRECT (test code = MG/DL 0.2-1.2 BILIND) SGOT/AST (test code = AST) Unit/L 15-37 SGPT/ALT (test code = ALT) Unit/L 12-78 ALKALINE PHOSPHATASE TOTAL (test code Unit/L 50-136 = ALKP) [id number] 23:12:00 Test Item Value Reference Range Interpretation Comments LIPASE (test code = LIP) 28 Unit/L 114-286 L CF RESPIRATORY [id number] 09:28:00 Test Item Value Reference Range Interpretation Comments CULTURE (BEAKER) (test PSEUDOMONAS A 1+ Ps eudomonas code = 1095) AERUGINOSA aeruginosa (MUCOID-PHENOTYP (Mucoid-phe notyp E) e) Amikacin (test code = Susceptible 0-16 S 1) , Resistant <0 or >16 Aztreonam (test code = Susceptible 0-8 S 32) , Resistant <0 or >8 Cefepime (test code = Susceptible 0-8 S 51) , Resistant <0 or >8 Ceftazidime (test code Susceptible 0-8 S = 27) , Resistant <0 or >8 Ciprofloxacin (test Susceptible 0-1 S code = 7) , Resistant <0 or >1 Doripenem (test code = Susceptible 0-2 S 100) , Resistant <0 or >2 Gentamicin (test code Susceptible 0-4 S = 18) , Resistant <0 or >4 Imipenem (test code = Susceptible 0-2 S 19) , Resistant <0 or >2 Levofloxacin (test Susceptible 0-2 S code = 22) , Resistant <0 or >2 Meropenem (test code = Susceptible 0-2 S 34) , Resistant <0 or >2 Piperacillin (test Susceptible 0-16 S code = 24) , Resistant <0 or >16 Piperacillin + Susceptible 0-16 S Tazobactam (test code , Resistant <0 = 29) or >16 Tobramycin (test code Susceptible 0-4 S = 25) , Resistant <0 or >4 CULTURE (Telltale GamesAKER) (test A <1+ E scherichia code = 1095) coli CULTURE (Telltale GamesAKER) (test ESCHERICHIA COLI A 2 + Pseudomonas code = 1095) aeruginosa Amikacin (test code = S 1) Ampicillin + Sulbactam S (test code = 6) Aztreonam (test code = S 32) Cefepime (test code = S 51) Cefoxitin (test code = S 68) Ceftazidime (test code S = 27) Ceftriaxone (test code S = 52) Ertapenem (test code = S 38) Gentamicin (test code S = 18) Levofloxacin (test R code = 22) Meropenem (test code = S 34) Nitrofurantoin (test S code = 23) Piperacillin + S Tazobactam (test code = 29) Tetracycline (test S code = 2) Tobramycin (test code S = 25) Trimethoprim + S Sulfamethoxazole (test code = 47) 3+ Normal respiratory maria del carmen presentCF RESPIRATORY [id number] 15:22:00 Test Item Value Reference Range Interpretation Comments CULTURE (BEAKER) PSEUDOMONAS A 4+ Pseudomo kelli (test code = 1095) AERUGINOSA aeruginos a (MUCOID-PHENOTYPE (Mucoid-ph enotype ) ) Amikacin (test code Susceptible 0-16 S = 1) , Resistant <0 or >16 Aztreonam (test Susceptible 0-8 , S code = 32) Resistant <0 or >8 Cefepime (test code Susceptible 0-8 , R = 51) Resistant <0 or >8 Ceftazidime (test Susceptible 0-8 , S code = 27) Resistant <0 or >8 Ciprofloxacin (test Susceptible 0-1 , S code = 7) Resistant <0 or >1 Gentamicin (test Susceptible 0-4 , S code = 18) Resistant <0 or >4 Imipenem (test code Susceptible 0-2 , S = 19) Resistant <0 or >2 Levofloxacin (test Susceptible 0-2 , S code = 22) Resistant <0 or >2 Meropenem (test Susceptible 0-2 , S code = 34) Resistant <0 or >2 Piperacillin (test Susceptible 0-16 S code = 24) , Resistant <0 or >16 Piperacillin + Susceptible 0-16 S Tazobactam (test , Resistant <0 or code = 29) >16 Tobramycin (test Susceptible 0-4 , S code = 25) Resistant <0 or >4 CULTURE (BEAKER) PSEUDOMONAS A 4+ Pseudomo kelli (test code = 1095) AERUGINOSA aeruginos a Amikacin (test code Susceptible 0-16 S = 1) , Resistant <0 or >16 Aztreonam (test Susceptible 0-8 , S code = 32) Resistant <0 or >8 Cefepime (test code Susceptible 0-8 , S = 51) Resistant <0 or >8 Ceftazidime (test Susceptible 0-8 , S code = 27) Resistant <0 or >8 Ciprofloxacin (test Susceptible 0-1 , S code = 7) Resistant <0 or >1 Gentamicin (test Susceptible 0-4 , S code = 18) Resistant <0 or >4 Imipenem (test code Susceptible 0-2 , S = 19) Resistant <0 or >2 Levofloxacin (test Susceptible 0-2 , S code = 22) Resistant <0 or >2 Meropenem (test Susceptible 0-2 , S code = 34) Resistant <0 or >2 Piperacillin (test Susceptible 0-16 S code = 24) , Resistant <0 or >16 Piperacillin + Susceptible 0-16 S Tazobactam (test , Resistant <0 or code = 29) >16 Tobramycin (test Susceptible 0-4 , S code = 25) Resistant <0 or >4 4+ Normal respiratory maria del carmen [id number] 09:23:00 Test Item Value Reference Range Interpretation Comments PHOSPHORUS (BEAKER) (test code = 2.4 mg/dL 2.3-4.7 604) [id number] 09:23:00 Test Item Value Reference Range Interpretation Comments MAGNESIUM (BEAKER) (test code = 1.8 mg/dL 1.6-2.6 627) BASIC METABOLIC [id number] 09:23:00 Test Item Value Reference Range Interpretation Comments SODIUM (BEAKER) 140 meq/L 136-145 (test code = 381) POTASSIUM (BEAKER) 3.7 meq/L 3.5-5.1 (test code = 379) CHLORIDE (BEAKER) 104 meq/L 98-107 (test code = 382) CO2 (BEAKER) (test 27 meq/L 22-29 code = 355) BLOOD UREA NITROGEN 3 mg/dL 7-21 L (BEAKER) (test code = 354) CREATININE (BEAKER) 0.93 mg/dL 0.57-1.25 (test code = 358) GLUCOSE RANDOM 108 mg/dL 70-105 H (BEAKER) (test code = 652) CALCIUM (BEAKER) 9.6 mg/dL 8.4-10.2 (test code = 697) EGFR (BEAKER) (test 107 mL/min/1.73 ESTIM ATED GFR IS code = 1092) sq m NOT ACCURATE CREATININE CLEARANCE IN PREDICTING GLOMERULAR FILTRATION RATE . ESTIMATED GFR I S NOT APPLICABLE FOR DIALYSIS PATIEN TS. CBC W/PLT COUNT & AUTO [id number] 09:03:00 Test Item Value Reference Range Interpretation Comments WHITE BLOOD CELL COUNT (BEAKER) 7.0 K/ L 3.5-10.5 (test code = 775) RED BLOOD CELL COUNT (BEAKER) 4.61 M/ L 4.63-6.08 L (test code = 761) HEMOGLOBIN (BEAKER) (test code = 13.9 GM/DL 13.7-17.5 410) HEMATOCRIT (BEAKER) (test code = 42.6 % 40.1-51.0 411) MEAN CORPUSCULAR VOLUME (BEAKER) 92.4 fL 79.0-92.2 H (test code = 753) MEAN CORPUSCULAR HEMOGLOBIN 30.2 pg 25.7-32.2 (BEAKER) (test code = 751) MEAN CORPUSCULAR HEMOGLOBIN CONC 32.6 GM/DL 32.3-36.5 (BEAKER) (test code = 752) RED CELL DISTRIBUTION WIDTH 12.7 % 11.6-14.4 (BEAKER) (test code = 412) PLATELET COUNT (BEAKER) (test 229 K/CU MM 150-450 code = 756) MEAN PLATELET VOLUME (BEAKER) 10.8 fL 9.4-12.4 (test code = 754) NUCLEATED RED BLOOD CELLS 0 /100 WBC 0-0 (BEAKER) (test code = 413) NEUTROPHILS RELATIVE PERCENT 67 % (BEAKER) (test code = 429) LYMPHOCYTES RELATIVE PERCENT 20 % (BEAKER) (test code = 430) MONOCYTES RELATIVE PERCENT 10 % (BEAKER) (test code = 431) EOSINOPHILS RELATIVE PERCENT 2 % (BEAKER) (test code = 432) BASOPHILS RELATIVE PERCENT 1 % (BEAKER) (test code = 437) NEUTROPHILS ABSOLUTE COUNT 4.67 K/ L 1.78-5.38 (BEAKER) (test code = 670) LYMPHOCYTES ABSOLUTE COUNT 1.40 K/ L 1.32-3.57 (BEAKER) (test code = 414) MONOCYTES ABSOLUTE COUNT (BEAKER) 0.70 K/ L 0.30-0.82 (test code = 415) EOSINOPHILS ABSOLUTE COUNT 0.14 K/ L 0.04-0.54 (BEAKER) (test code = 416) BASOPHILS ABSOLUTE COUNT (BEAKER) 0.04 K/ L 0.01-0.08 (test code = 417) IMMATURE GRANULOCYTES-RELATIVE 0 % 0-1 PERCENT (BEAKER) (test code = 2801) SPIN/CONCENTRATION [id number] 14:50:00 Test Item Value Reference Range Interpretation Comments CONCENTRATION CHARGED (BEAKER) (test Done code = 5413) TOBRAMYCIN LEVEL, [id number] 07:27:00 Test Item Value Reference Range Interpretation Comments TOBRAMYCIN RANDOM (BEAKER) (test 1.7 ug/mL code = 544) Reference Range: No [id number] 07:24:00 Test Item Value Reference Range Interpretation Comments PHOSPHORUS (BEAKER) (test code = 2.5 mg/dL 2.3-4.7 604) [id number] 07:24:00 Test Item Value Reference Range Interpretation Comments MAGNESIUM (BEAKER) (test code = 1.5 mg/dL 1.6-2.6 L 627) BASIC METABOLIC [id number] 07:24:00 Test Item Value Reference Range Interpretation Comments SODIUM (BEAKER) 137 meq/L 136-145 (test code = 381) POTASSIUM (BEAKER) 3.6 meq/L 3.5-5.1 (test code = 379) CHLORIDE (BEAKER) 103 meq/L 98-107 (test code = 382) CO2 (BEAKER) (test 27 meq/L 22-29 code = 355) BLOOD UREA NITROGEN 4 mg/dL 7-21 L (BEAKER) (test code = 354) CREATININE (BEAKER) 1.02 mg/dL 0.57-1.25 (test code = 358) GLUCOSE RANDOM 106 mg/dL 70-105 H (BEAKER) (test code = 652) CALCIUM (BEAKER) 8.7 mg/dL 8.4-10.2 (test code = 697) EGFR (BEAKER) (test 97 mL/min/1.73 ESTIMA JOANN GFR IS code = 1092) sq m NOT ACCURATE CREATININE CLEARANCE IN PREDICTING GLOMERULAR FILTRATION RATE . ESTIMATED GFR I S NOT APPLICABLE FOR DIALYSIS PATIEN TS. CBC W/PLT COUNT & AUTO [id number] 07:03:00 Test Item Value Reference Range Interpretation Comments WHITE BLOOD CELL COUNT (BEAKER) 8.1 K/ L 3.5-10.5 (test code = 775) RED BLOOD CELL COUNT (BEAKER) 4.11 M/ L 4.63-6.08 L (test code = 761) HEMOGLOBIN (BEAKER) (test code = 12.5 GM/DL 13.7-17.5 L 410) HEMATOCRIT (BEAKER) (test code = 37.8 % 40.1-51.0 L 411) MEAN CORPUSCULAR VOLUME (BEAKER) 92.0 fL 79.0-92.2 (test code = 753) MEAN CORPUSCULAR HEMOGLOBIN 30.4 pg 25.7-32.2 (BEAKER) (test code = 751) MEAN CORPUSCULAR HEMOGLOBIN CONC 33.1 GM/DL 32.3-36.5 (BEAKER) (test code = 752) RED CELL DISTRIBUTION WIDTH 12.8 % 11.6-14.4 (BEAKER) (test code = 412) PLATELET COUNT (BEAKER) (test 170 K/CU MM 150-450 code = 756) MEAN PLATELET VOLUME (BEAKER) 11.2 fL 9.4-12.4 (test code = 754) NUCLEATED RED BLOOD CELLS 0 /100 WBC 0-0 (BEAKER) (test code = 413) NEUTROPHILS RELATIVE PERCENT 65 % (BEAKER) (test code = 429) LYMPHOCYTES RELATIVE PERCENT 20 % (BEAKER) (test code = 430) MONOCYTES RELATIVE PERCENT 11 % (BEAKER) (test code = 431) EOSINOPHILS RELATIVE PERCENT 3 % (BEAKER) (test code = 432) BASOPHILS RELATIVE PERCENT 1 % (BEAKER) (test code = 437) NEUTROPHILS ABSOLUTE COUNT 5.29 K/ L 1.78-5.38 (BEAKER) (test code = 670) LYMPHOCYTES ABSOLUTE COUNT 1.66 K/ L 1.32-3.57 (BEAKER) (test code = 414) MONOCYTES ABSOLUTE COUNT (BEAKER) 0.91 K/ L 0.30-0.82 H (test code = 415) EOSINOPHILS ABSOLUTE COUNT 0.20 K/ L 0.04-0.54 (BEAKER) (test code = 416) BASOPHILS ABSOLUTE COUNT (BEAKER) 0.05 K/ L 0.01-0.08 (test code = 417) IMMATURE GRANULOCYTES-RELATIVE 0 % 0-1 PERCENT (BEAKER) (test code = 2801) [id number] 04:19:00 Test Item Value Reference Range Interpretation Comments MAGNESIUM (BEAKER) 1.6 mg/dL 1.6-2.6 Specimen slightly (test code = 627) hemolyzed [id number] 04:19:00 Test Item Value Reference Range Interpretation Comments PHOSPHORUS (BEAKER) 2.6 mg/dL 2.3-4.7 Specimen slightly (test code = 604) hemolyzed BASIC METABOLIC [id number] 04:19:00 Test Item Value Reference Range Interpretation Comments SODIUM (BEAKER) 134 meq/L 136-145 L (test code = 381) POTASSIUM (BEAKER) 4.6 meq/L 3.5-5.1 Specimen slightly (test code = 379) hemolyzed CHLORIDE (BEAKER) 108 meq/L 98-107 H (test code = 382) CO2 (BEAKER) (test 24 meq/L 22-29 code = 355) BLOOD UREA NITROGEN 9 mg/dL 7-21 (BEAKER) (test code = 354) CREATININE (BEAKER) 0.94 mg/dL 0.57-1.25 Specimen slightly (test code = 358) hemolyzed GLUCOSE RANDOM 101 mg/dL 70-105 (BEAKER) (test code = 652) CALCIUM (BEAKER) 8.3 mg/dL 8.4-10.2 L (test code = 697) EGFR (BEAKER) (test 106 mL/min/1.73 ESTIM ATED GFR IS code = 1092) sq m NOT ACCURATE CREATININE CLEARANCE IN PREDICTING GLOMERULAR FILTRATION RATE . ESTIMATED GFR I S NOT APPLICABLE FOR DIALYSIS PATIEN TS. CBC W/PLT COUNT & AUTO [id number] 04:09:00 Test Item Value Reference Range Interpretation Comments WHITE BLOOD CELL COUNT (BEAKER) 9.2 K/ L 3.5-10.5 (test code = 775) RED BLOOD CELL COUNT (BEAKER) 4.06 M/ L 4.63-6.08 L (test code = 761) HEMOGLOBIN (BEAKER) (test code = 12.4 GM/DL 13.7-17.5 L 410) HEMATOCRIT (BEAKER) (test code = 40.2 % 40.1-51.0 411) MEAN CORPUSCULAR VOLUME (BEAKER) 99.0 fL 79.0-92.2 H (test code = 753) MEAN CORPUSCULAR HEMOGLOBIN 30.5 pg 25.7-32.2 (BEAKER) (test code = 751) MEAN CORPUSCULAR HEMOGLOBIN CONC 30.8 GM/DL 32.3-36.5 L (BEAKER) (test code = 752) RED CELL DISTRIBUTION WIDTH 12.9 % 11.6-14.4 (BEAKER) (test code = 412) PLATELET COUNT (BEAKER) (test 177 K/CU MM 150-450 code = 756) MEAN PLATELET VOLUME (BEAKER) 11.2 fL 9.4-12.4 (test code = 754) NUCLEATED RED BLOOD CELLS 0 /100 WBC 0-0 (BEAKER) (test code = 413) NEUTROPHILS RELATIVE PERCENT 61 % (BEAKER) (test code = 429) LYMPHOCYTES RELATIVE PERCENT 25 % (BEAKER) (test code = 430) MONOCYTES RELATIVE PERCENT 11 % (BEAKER) (test code = 431) EOSINOPHILS RELATIVE PERCENT 3 % (BEAKER) (test code = 432) BASOPHILS RELATIVE PERCENT 0 % (BEAKER) (test code = 437) NEUTROPHILS ABSOLUTE COUNT 5.62 K/ L 1.78-5.38 H (BEAKER) (test code = 670) LYMPHOCYTES ABSOLUTE COUNT 2.26 K/ L 1.32-3.57 (BEAKER) (test code = 414) MONOCYTES ABSOLUTE COUNT (BEAKER) 0.97 K/ L 0.30-0.82 H (test code = 415) EOSINOPHILS ABSOLUTE COUNT 0.29 K/ L 0.04-0.54 (BEAKER) (test code = 416) BASOPHILS ABSOLUTE COUNT (BEAKER) 0.04 K/ L 0.01-0.08 (test code = 417) IMMATURE GRANULOCYTES-RELATIVE 0 % 0-1 PERCENT (BEAKER) (test code = 2801) CT, [id number] 21:54:00FINAL REPORT EXAM: CT of the abdomen and pelvis, with contrast CLINICAL HISTORY: Low-grade bowel obstruction. TECHNIQUE: CT of the abdomen and pelvis was performed with intravenouscontrast administration. This exam was performed according to our departmental dose optimization program which includes automated exposure control, adjustment of the mA and/or kV according to patient'ssize and/or use of iterative reconstructive technique. COMPARISON: CT abdomen and pelvis 09/08/2018.FINDINGS: LOWER CHEST: Patchy groundglass opacity in the anterior left upper lobe which may represent pneumonia and/or atelectasis. Tree-in-bud nodular opacities in the right middle lobe which may be postinfectious and postinflammatory.LIVER: Within normal limits.BILE DUCTS: Within normal limits.GALL BLADDER: Within normal limits.PANCREAS: Within normal limits.SPLEEN: Within normal limits.ADRENALS: Wi thin normal limits.KIDNEYS/URETERS: Punctate nonobstructing left renal stones. Unremarkable right kidney. No hydronephrosis or perinephric stranding. URINARY BLADDER: Within normal limits.REPRODUCTIVE ORGANS: Within normal limits. BOWEL/MESENTERY: Status post right hemicolectomy. Large amount of retained stool in the colon and rectum. Distention of the rectum to a diameter of 6.7 cm with stool. Distended small bowel loops in the mid to lower abdomen with decompression of the distal ileum however no definite transition point is seen; this may represent an ileus versus a small bowel obstruction (early complete or partial). Short segment masslike thickening of the distal sigmoid colon with shouldering suspicious for malignancy (axial image 64 and coronal image 58-59). PERITONEUM/RETROPERITONEUM: No free air, free fluid or fluid collection. VESSELS: Within normal limits. LYMPH NODES: No abdominal orpelvic lymphadenopathy.SOFT TISSUES: Within normal limits.BONES: Within normal limits. IMPRESSION: Status post right hemicolectomy.Large amount of retained colonic stool. Fecal impaction.Findings whichmay represent a small bowel ileus however a small obstruction (partial or early complete) cannot be excluded. Clinical correlation is recommended.Short segment masslike mural thickening of the distal sigmoid colon suspicious for malignancy. Differential diagnosis includes peristalsis however colonoscopy is recommended for further evaluation.Patchy and ground glass opacities in the left upper lobe which may represent pneumonia and/or atelectasis. Tree-in-bud nodular opacities in the right middle lobewhich may be postinfectious/postinflammatory.Punctate nonobstructing left renal stones. Findings discussed with Dr. Moore at approximately 9:50 PM 10/25/2018. Signed: Magno Carvajal MDReport Verified Date/Time: 10/25/2018 21:54:25 Reading Location: [address] Reading Room [facility] METABOLIC [id number] 20:13:00 Test Item Value Reference Range Interpretation Comments SODIUM (BEAKER) 136 meq/L 136-145 (test code = 381) POTASSIUM (BEAKER) 3.9 meq/L 3.5-5.1 Specimen slightly (test code = 379) hemolyzed CHLORIDE (BEAKER) 106 meq/L 98-107 (test code = 382) CO2 (BEAKER) (test 24 meq/L 22-29 code = 355) BLOOD UREA NITROGEN 12 mg/dL 7-21 (BEAKER) (test code = 354) CREATININE (BEAKER) 1.03 mg/dL 0.57-1.25 Specimen slightly (test code = 358) hemolyzed GLUCOSE RANDOM 113 mg/dL 70-105 H (BEAKER) (test code = 652) CALCIUM (BEAKER) 8.5 mg/dL 8.4-10.2 (test code = 697) EGFR (BEAKER) (test 96 mL/min/1.73 ESTIMA JOANN GFR IS code = 1092) sq m NOT ACCURATE CREATININE CLEARANCE IN PREDICTING GLOMERULAR FILTRATION RATE . ESTIMATED GFR I S NOT APPLICABLE FOR DIALYSIS PATIEN TS. URINALYSIS W/ [id number] 19:19:00 Test Item Value Reference Range Interpretation Comments COLOR (BEAKER) (test code = Yellow 470) CLARITY (BEAKER) (test code = Clear 469) SPECIFIC GRAVITY UA (BEAKER) 1.015 1.001-1.035 (test code = 468) PH UA (BEAKER) (test code = 6.5 5.0-8.0 467) PROTEIN UA (BEAKER) (test code Negative Negative = 464) GLUCOSE UA (BEAKER) (test code Negative Negative = 365) KETONES UA (BEAKER) (test code Negative Negative = 371) BILIRUBIN UA (BEAKER) (test Negative Negative code = 462) BLOOD UA (BEAKER) (test code = Negative Negative 461) NITRITE UA (BEAKER) (test code Negative Negative = 465) LEUKOCYTE ESTERASE UA (BEAKER) Negative Negative (test code = 466) UROBILINOGEN UA (BEAKER) (test 0.2 mg/dL 0.2-1.0 code = 463) RBC UA (BEAKER) (test code = 0 /HPF 519) WBC UA (BEAKER) (test code = 4 /HPF 520) SOURCE(BEAKER) (test code = Urine, Voided 6647) CBC W/PLT COUNT & AUTO [id number] 19:02:00 Test Item Value Reference Range Interpretation Comments WHITE BLOOD CELL COUNT (BEAKER) 11.5 K/ L 3.5-10.5 H (test code = 775) RED BLOOD CELL COUNT (BEAKER) 4.54 M/ L 4.63-6.08 L (test code = 761) HEMOGLOBIN (BEAKER) (test code = 13.8 GM/DL 13.7-17.5 410) HEMATOCRIT (BEAKER) (test code = 42.3 % 40.1-51.0 411) MEAN CORPUSCULAR VOLUME (BEAKER) 93.2 fL 79.0-92.2 H (test code = 753) MEAN CORPUSCULAR HEMOGLOBIN 30.4 pg 25.7-32.2 (BEAKER) (test code = 751) MEAN CORPUSCULAR HEMOGLOBIN CONC 32.6 GM/DL 32.3-36.5 (BEAKER) (test code = 752) RED CELL DISTRIBUTION WIDTH 12.9 % 11.6-14.4 (BEAKER) (test code = 412) PLATELET COUNT (BEAKER) (test 212 K/CU MM 150-450 code = 756) MEAN PLATELET VOLUME (BEAKER) 11.9 fL 9.4-12.4 (test code = 754) NUCLEATED RED BLOOD CELLS 0 /100 WBC 0-0 (BEAKER) (test code = 413) NEUTROPHILS RELATIVE PERCENT 64 % (BEAKER) (test code = 429) LYMPHOCYTES RELATIVE PERCENT 21 % (BEAKER) (test code = 430) MONOCYTES RELATIVE PERCENT 11 % (BEAKER) (test code = 431) EOSINOPHILS RELATIVE PERCENT 3 % (BEAKER) (test code = 432) BASOPHILS RELATIVE PERCENT 0 % (BEAKER) (test code = 437) NEUTROPHILS ABSOLUTE COUNT 7.32 K/ L 1.78-5.38 H (BEAKER) (test code = 670) LYMPHOCYTES ABSOLUTE COUNT 2.45 K/ L 1.32-3.57 (BEAKER) (test code = 414) MONOCYTES ABSOLUTE COUNT (BEAKER) 1.26 K/ L 0.30-0.82 H (test code = 415) EOSINOPHILS ABSOLUTE COUNT 0.33 K/ L 0.04-0.54 (BEAKER) (test code = 416) BASOPHILS ABSOLUTE COUNT (BEAKER) 0.05 K/ L 0.01-0.08 (test code = 417) IMMATURE GRANULOCYTES-RELATIVE 0 % 0-1 PERCENT (BEAKER) (test code = 2801) AFB CULTURE + [id number] 12:42:00 Test Item Value Reference Range Interpretation Comments CULTURE (BEAKER) (test No acid-fast bacilli code = 1095) isolated in 42 days AFB SMEAR (BEAKER) No acid fast bacilli (test code = 994) seen FUNGUS CULTURE + [id number] 06:40:00 Test Item Value Reference Range Interpretation Comments CULTURE (BEAKER) (test No fungus isolated in code = 1095) 28 days FUNGUS SMEAR (BEAKER) No fungi seen (test code = 1406) RAD, ABDOMEN/KUB, 1 VIEW [id number] 15:59:00Reason for exam:->assess for stool burdenShould this be performed at the bedside?->YesFINAL REPORT History: Assess for stool burden COMPARISON: 08/03/2018 DISCUSSION : A signal frontal view of the abdomen was submitted for interpretation. There is a moderate-large amount of colonic stool, seen most significantly in the cecum/ascending colon. Of note, the examination is not sensitive for the evaluation of free air. There is no significant small bowel distention. Nolytic or blastic abnormalities are appreciated. Signed: Caio Arteagaort Verified Date/Time: 09/13/2018 15:59:37 Reading Location: [address] Consult Reading Room [facility] RESPIRATORY [id number] 12:21:00 Test Item Value Reference Range Interpretation Comments CULTURE (BEAKER) (test PSEUDOMONAS A 1+ Ps eudomonas code = 1095) AERUGINOSA aeruginosa (MUCOID-PHENOTYP (Mucoid-phe notyp E) e) Amikacin (test code = Susceptible 0-16 S 1) , Resistant <0 or >16 Aztreonam (test code = Susceptible 0-8 S 32) , Resistant <0 or >8 Cefepime (test code = Susceptible 0-8 S 51) , Resistant <0 or >8 Ceftazidime (test code Susceptible 0-8 S = 27) , Resistant <0 or >8 Ciprofloxacin (test Susceptible 0-1 S code = 7) , Resistant <0 or >1 Gentamicin (test code Susceptible 0-4 S = 18) , Resistant <0 or >4 Levofloxacin (test Susceptible 0-2 S code = 22) , Resistant <0 or >2 Meropenem (test code = Susceptible 0-2 S 34) , Resistant <0 or >2 Piperacillin (test Susceptible 0-16 S code = 24) , Resistant <0 or >16 Piperacillin + Susceptible 0-16 S Tazobactam (test code , Resistant <0 = 29) or >16 Tobramycin (test code Susceptible 0-4 S = 25) , Resistant <0 or >4 CULTURE (BEAKER) (test ESCHERICHIA COLI A 1 + Escherichia code = 1095) coli Amikacin (test code = S 1) Ampicillin + Sulbactam S (test code = 6) Aztreonam (test code = S 32) Cefepime (test code = S 51) Cefoxitin (test code = S 68) Ceftazidime (test code S = 27) Ceftriaxone (test code S = 52) Ertapenem (test code = S 38) Gentamicin (test code S = 18) Levofloxacin (test R code = 22) Meropenem (test code = S 34) Nitrofurantoin (test S code = 23) Piperacillin + S Tazobactam (test code = 29) Tetracycline (test S code = 2) Tobramycin (test code S = 25) Trimethoprim + S Sulfamethoxazole (test code = 47) 2+ Normal respiratory maria del carmen [id number] 07:17:00 Test Item Value Reference Range Interpretation Comments PHOSPHORUS (BEAKER) (test code = 3.2 mg/dL 2.3-4.7 604) [id number] 07:17:00 Test Item Value Reference Range Interpretation Comments MAGNESIUM (BEAKER) (test code = 1.6 mg/dL 1.6-2.6 627) BASIC METABOLIC [id number] 07:17:00 Test Item Value Reference Range Interpretation Comments SODIUM (BEAKER) 137 meq/L 136-145 (test code = 381) POTASSIUM (BEAKER) 4.4 meq/L 3.5-5.1 (test code = 379) CHLORIDE (BEAKER) 106 meq/L 98-107 (test code = 382) CO2 (BEAKER) (test 25 meq/L 22-29 code = 355) BLOOD UREA NITROGEN 11 mg/dL 7-21 (BEAKER) (test code = 354) CREATININE (BEAKER) 0.91 mg/dL 0.57-1.25 (test code = 358) GLUCOSE RANDOM 83 mg/dL 70-105 (BEAKER) (test code = 652) CALCIUM (BEAKER) 8.5 mg/dL 8.4-10.2 (test code = 697) EGFR (BEAKER) (test 111 mL/min/1.73 ESTIM ATED GFR IS code = 1092) sq m NOT ACCURATE CREATININE CLEARANCE IN PREDICTING GLOMERULAR FILTRATION RATE . ESTIMATED GFR I S NOT APPLICABLE FOR DIALYSIS PATIEN TS. CBC W/PLT COUNT & AUTO [id number] 07:16:00 Test Item Value Reference Range Interpretation Comments WHITE BLOOD CELL COUNT (BEAKER) 5.2 K/ L 3.5-10.5 (test code = 775) RED BLOOD CELL COUNT (BEAKER) 3.88 M/ L 4.63-6.08 L (test code = 761) HEMOGLOBIN (BEAKER) (test code = 11.8 GM/DL 13.7-17.5 L 410) HEMATOCRIT (BEAKER) (test code = 36.0 % 40.1-51.0 L 411) MEAN CORPUSCULAR VOLUME (BEAKER) 92.8 fL 79.0-92.2 H (test code = 753) MEAN CORPUSCULAR HEMOGLOBIN 30.4 pg 25.7-32.2 (BEAKER) (test code = 751) MEAN CORPUSCULAR HEMOGLOBIN CONC 32.8 GM/DL 32.3-36.5 (BEAKER) (test code = 752) RED CELL DISTRIBUTION WIDTH 13.0 % 11.6-14.4 (BEAKER) (test code = 412) PLATELET COUNT (BEAKER) (test 162 K/CU MM 150-450 code = 756) MEAN PLATELET VOLUME (BEAKER) 12.1 fL 9.4-12.4 (test code = 754) NUCLEATED RED BLOOD CELLS 0 /100 WBC 0-0 (BEAKER) (test code = 413) NEUTROPHILS RELATIVE PERCENT 48 % (BEAKER) (test code = 429) LYMPHOCYTES RELATIVE PERCENT 37 % (BEAKER) (test code = 430) MONOCYTES RELATIVE PERCENT 11 % (BEAKER) (test code = 431) EOSINOPHILS RELATIVE PERCENT 4 % (BEAKER) (test code = 432) BASOPHILS RELATIVE PERCENT 1 % (BEAKER) (test code = 437) NEUTROPHILS ABSOLUTE COUNT 2.46 K/ L 1.78-5.38 (BEAKER) (test code = 670) LYMPHOCYTES ABSOLUTE COUNT 1.89 K/ L 1.32-3.57 (BEAKER) (test code = 414) MONOCYTES ABSOLUTE COUNT (BEAKER) 0.55 K/ L 0.30-0.82 (test code = 415) EOSINOPHILS ABSOLUTE COUNT 0.19 K/ L 0.04-0.54 (BEAKER) (test code = 416) BASOPHILS ABSOLUTE COUNT (BEAKER) 0.04 K/ L 0.01-0.08 (test code = 417) IMMATURE GRANULOCYTES-RELATIVE 0 % 0-1 PERCENT (BEAKER) (test code = 2801) [id number] 12:19:00 Test Item Value Reference Range Interpretation Comments PHOSPHORUS (BEAKER) (test code = 3.3 mg/dL 2.3-4.7 604) [id number] 12:19:00 Test Item Value Reference Range Interpretation Comments MAGNESIUM (BEAKER) (test code = 2.1 mg/dL 1.6-2.6 627) BASIC METABOLIC [id number] 12:19:00 Test Item Value Reference Range Interpretation Comments SODIUM (BEAKER) 138 meq/L 136-145 (test code = 381) POTASSIUM (BEAKER) 4.5 meq/L 3.5-5.1 (test code = 379) CHLORIDE (BEAKER) 103 meq/L 98-107 (test code = 382) CO2 (BEAKER) (test 29 meq/L 22-29 code = 355) BLOOD UREA NITROGEN 17 mg/dL 7-21 (BEAKER) (test code = 354) CREATININE (BEAKER) 1.20 mg/dL 0.57-1.25 (test code = 358) GLUCOSE RANDOM 79 mg/dL 70-105 (BEAKER) (test code = 652) CALCIUM (BEAKER) 9.8 mg/dL 8.4-10.2 (test code = 697) EGFR (BEAKER) (test 80 mL/min/1.73 ESTIMA JOANN GFR IS code = 1092) sq m NOT ACCURATE CREATININE CLEARANCE IN PREDICTING GLOMERULAR FILTRATION RATE . ESTIMATED GFR I S NOT APPLICABLE FOR DIALYSIS PATIEN TS. CBC W/PLT COUNT & AUTO [id number] 11:54:00 Test Item Value Reference Range Interpretation Comments WHITE BLOOD CELL COUNT (BEAKER) 7.6 K/ L 3.5-10.5 (test code = 775) RED BLOOD CELL COUNT (BEAKER) 4.91 M/ L 4.63-6.08 (test code = 761) HEMOGLOBIN (BEAKER) (test code = 15.1 GM/DL 13.7-17.5 410) HEMATOCRIT (BEAKER) (test code = 46.3 % 40.1-51.0 411) MEAN CORPUSCULAR VOLUME (BEAKER) 94.3 fL 79.0-92.2 H (test code = 753) MEAN CORPUSCULAR HEMOGLOBIN 30.8 pg 25.7-32.2 (BEAKER) (test code = 751) MEAN CORPUSCULAR HEMOGLOBIN CONC 32.6 GM/DL 32.3-36.5 (BEAKER) (test code = 752) RED CELL DISTRIBUTION WIDTH 13.1 % 11.6-14.4 (BEAKER) (test code = 412) PLATELET COUNT (BEAKER) (test 201 K/CU MM 150-450 code = 756) MEAN PLATELET VOLUME (BEAKER) 12.1 fL 9.4-12.4 (test code = 754) NUCLEATED RED BLOOD CELLS 0 /100 WBC 0-0 (BEAKER) (test code = 413) NEUTROPHILS RELATIVE PERCENT 67 % (BEAKER) (test code = 429) LYMPHOCYTES RELATIVE PERCENT 22 % (BEAKER) (test code = 430) MONOCYTES RELATIVE PERCENT 8 % (BEAKER) (test code = 431) EOSINOPHILS RELATIVE PERCENT 2 % (BEAKER) (test code = 432) BASOPHILS RELATIVE PERCENT 0 % (BEAKER) (test code = 437) NEUTROPHILS ABSOLUTE COUNT 5.14 K/ L 1.78-5.38 (BEAKER) (test code = 670) LYMPHOCYTES ABSOLUTE COUNT 1.65 K/ L 1.32-3.57 (BEAKER) (test code = 414) MONOCYTES ABSOLUTE COUNT (BEAKER) 0.63 K/ L 0.30-0.82 (test code = 415) EOSINOPHILS ABSOLUTE COUNT 0.16 K/ L 0.04-0.54 (BEAKER) (test code = 416) BASOPHILS ABSOLUTE COUNT (BEAKER) 0.03 K/ L 0.01-0.08 (test code = 417) IMMATURE GRANULOCYTES-RELATIVE 0 % 0-1 PERCENT (BEAKER) (test code = 2801) SPIN/CONCENTRATION [id number] 00:15:00 Test Item Value Reference Range Interpretation Comments CONCENTRATION CHARGED (BEAKER) (test Done code = 2657) CT, [id number] 21:49:00Reason for exam:->ABDOMINAL PAINWhat is the patient's sedation requirement?->No SedationFINAL REPORT CT, ABDOMEN \\T\\ PELVIS, WITH IV CONTRAST INDICATION: Abdominal pain, unspecifiedABDOMINAL PAIN COMPARISON: CT of the pelvis 08/28/2018. TECHNIQUE:Post contrast abdomenand pelvis CT. Coronal and sagittal reformatted images obtained. DOSE REDUCTION: Dose modulation, iterative reconstruction, and/or weight-based adjustment of the mA/kV was utilized to reduce the radiation dose to as low as reasonably achievable. FINDINGS: Lower thorax: Tree-in-bud opacities within theright middle lobe suggestive of atypical infection. No pleural effusion. The heart is normal in size. No pericardial effusion. Liver: Hepatic steatosis. No discrete hepatic lesions.Gallbladder and biliary tree: No ductal dilation or stones.Pancreas: Relatively fatty replaced and atrophicSpleen: Grossly unremarkable.Adrenal Glands: No acute findings.Kidneys and ureters: Punctate nonobstructing left nephrolithiasis. No hydronephrosis or contour deforming renal lesion.Bladder and reproductive organs: The bladder somewhat distended. Prostate is unremarkable. Stomach and Duodenum: Stomach is unremarkable. The duodenum is somewhat distended and fluid-filled particularly the second portion.Small and large intestine: Again seen is a large stool burden throughout the large bowel without abnormal large bowel wall thickening. Surgical chain sutures in the cecum. Multiple fluid-filled distended loops of small bowel is concerning for least partial small bowel obstruction however no clear transition point isidentified. Multiple thickened loops of small bowel within the left abdomen and right lower quadrantmay be related to underdistention . Appendix: Not identified. Major vascular structures: Normal aortic caliber.Peritoneum and retroperitoneum: Again seen are multiple enlarged mesenteric lymph nodes, not significant changed in the interval. Skeleton: No acute bony abnormality.Additional findings: None. IMPRESSION: Unchanged tree-in-bud opacity within the right middle lobe possibly related to history of cystic fibrosis. Hepatic steatosis. Again seen is a large stool ball in throughout the large bowel. Multiple distended loops of small bowel are again seen, not significant changed in the interval with no clear transition point, concerning for at least partial small bowel obstruction. Additionally there are multiple thickened loops of small bowel in the abdomen, nonspecific, possibly related to under distention however not definitely changed in the interval. Lymphadenopathy along the root of mesentery is again seen. Findings may be reactive however lymphoproliferative disease cannot be excluded. Recommend continued attention on follow-up imaging. Signed: Debbie Dingepelder Verified Date/Time: 09/08/2018 21:49:11 Reading Location: [address] Reading Room URINALYSIS W/ [id number] 21:16:00 Test Item Value Reference Range Interpretation Comments COLOR (BEAKER) (test code = Yellow 470) CLARITY (BEAKER) (test code = Clear 469) SPECIFIC GRAVITY UA (BEAKER) 1.021 1.001-1.035 (test code = 468) PH UA (BEAKER) (test code = 5.5 5.0-8.0 467) PROTEIN UA (BEAKER) (test code Negative Negative = 464) GLUCOSE UA (BEAKER) (test code Negative Negative = 365) KETONES UA (BEAKER) (test code Negative Negative = 371) BILIRUBIN UA (BEAKER) (test Negative Negative code = 462) BLOOD UA (BEAKER) (test code = Negative Negative 461) NITRITE UA (BEAKER) (test code Negative Negative = 465) LEUKOCYTE ESTERASE UA (BEAKER) Negative Negative (test code = 466) UROBILINOGEN UA (BEAKER) (test 0.2 mg/dL 0.2-1.0 code = 463) RBC UA (BEAKER) (test code = < /HPF 519) WBC UA (BEAKER) (test code = < /HPF 520) MUCUS (BEAKER) (test code = Rare 1574) SOURCE(BEAKER) (test code = Urine, Voided 1117) [id number] 19:36:00 Test Item Value Reference Range Interpretation Comments LIPASE (BEAKER) (test code = 749) 31 U/L 8-78 BASIC METABOLIC [id number] 19:36:00 Test Item Value Reference Range Interpretation Comments SODIUM (BEAKER) 137 meq/L 136-145 (test code = 381) POTASSIUM (BEAKER) 4.2 meq/L 3.5-5.1 (test code = 379) CHLORIDE (BEAKER) 108 meq/L 98-107 H (test code = 382) CO2 (BEAKER) (test 21 meq/L 22-29 L code = 355) BLOOD UREA NITROGEN 20 mg/dL 7-21 (BEAKER) (test code = 354) CREATININE (BEAKER) 0.95 mg/dL 0.57-1.25 (test code = 358) GLUCOSE RANDOM 88 mg/dL 70-105 (BEAKER) (test code = 652) CALCIUM (BEAKER) 9.5 mg/dL 8.4-10.2 (test code = 697) EGFR (BEAKER) (test 105 mL/min/1.73 ESTIM ATED GFR IS code = 1092) sq m NOT ACCURATE CREATININE CLEARANCE IN PREDICTING GLOMERULAR FILTRATION RATE . ESTIMATED GFR I S NOT APPLICABLE FOR DIALYSIS PATIEN TS. HEPATIC FUNCTION [id number] 19:36:00 Test Item Value Reference Range Interpretation Comments TOTAL PROTEIN (BEAKER) (test code = 7.3 gm/dL 6.0-8.3 770) ALBUMIN (BEAKER) (test code = 1145) 4.2 g/dL 3.5-5.0 BILIRUBIN TOTAL (BEAKER) (test code 0.9 mg/dL 0.2-1.2 = 377) BILIRUBIN DIRECT (BEAKER) (test 0.4 mg/dL 0.1-0.5 code = 706) ALKALINE PHOSPHATASE (BEAKER) (test 99 U/L 40-150 code = 346) AST (SGOT) (BEAKER) (test code = 16 U/L 5-34 353) ALT (SGPT) (BEAKER) (test code = 27 U/L 6-55 347) [id number] 19:30:00 Test Item Value Reference Range Interpretation Comments PARTIAL THROMBOPLASTIN TIME 28.5 seconds 22.5-36.0 (BEAKER) (test code = 760) PROTHROMBIN [id number] 19:29:00 Test Item Value Reference Range Interpretation Comments PROTIME (BEAKER) (test code = 16.3 seconds 11.7-14.7 H 759) INR (BEAKER) (test code = 370) 1.3 <=5.9 RECOMMENDED COUMADIN/WARFARIN INR THERAPY RANGESSTANDARD DOSE: 2.0 - 3.0 Includes: PROPHYLAXIS for venous thrombosis, systemic embolization; TREATMENT for venous thrombosis and/or pulmonary embolus.HIGH RISK: Target INR is 2.5-3.5 for patients with mechanical heart valves.CBC W/PLT COUNT & AUTO [id number] 19:22:00 Test Item Value Reference Range Interpretation Comments WHITE BLOOD CELL COUNT (BEAKER) 11.2 K/ L 3.5-10.5 H (test code = 775) RED BLOOD CELL COUNT (BEAKER) 4.68 M/ L 4.63-6.08 (test code = 761) HEMOGLOBIN (BEAKER) (test code = 14.1 GM/DL 13.7-17.5 410) HEMATOCRIT (BEAKER) (test code = 43.6 % 40.1-51.0 411) MEAN CORPUSCULAR VOLUME (BEAKER) 93.2 fL 79.0-92.2 H (test code = 753) MEAN CORPUSCULAR HEMOGLOBIN 30.1 pg 25.7-32.2 (BEAKER) (test code = 751) MEAN CORPUSCULAR HEMOGLOBIN CONC 32.3 GM/DL 32.3-36.5 (BEAKER) (test code = 752) RED CELL DISTRIBUTION WIDTH 13.1 % 11.6-14.4 (BEAKER) (test code = 412) PLATELET COUNT (BEAKER) (test 228 K/CU MM 150-450 code = 756) MEAN PLATELET VOLUME (BEAKER) 11.5 fL 9.4-12.4 (test code = 754) NUCLEATED RED BLOOD CELLS 0 /100 WBC 0-0 (BEAKER) (test code = 413) NEUTROPHILS RELATIVE PERCENT 68 % (BEAKER) (test code = 429) LYMPHOCYTES RELATIVE PERCENT 20 % (BEAKER) (test code = 430) MONOCYTES RELATIVE PERCENT 10 % (BEAKER) (test code = 431) EOSINOPHILS RELATIVE PERCENT 2 % (BEAKER) (test code = 432) BASOPHILS RELATIVE PERCENT 0 % (BEAKER) (test code = 437) NEUTROPHILS ABSOLUTE COUNT 7.64 K/ L 1.78-5.38 H (BEAKER) (test code = 670) LYMPHOCYTES ABSOLUTE COUNT 2.21 K/ L 1.32-3.57 (BEAKER) (test code = 414) MONOCYTES ABSOLUTE COUNT (BEAKER) 1.09 K/ L 0.30-0.82 H (test code = 415) EOSINOPHILS ABSOLUTE COUNT 0.21 K/ L 0.04-0.54 (BEAKER) (test code = 416) BASOPHILS ABSOLUTE COUNT (BEAKER) 0.03 K/ L 0.01-0.08 (test code = 417) IMMATURE GRANULOCYTES-RELATIVE 0 % 0-1 PERCENT (BEAKER) (test code = 2801) [id number] 06:48:00 Test Item Value Reference Range Interpretation Comments PHOSPHORUS (BEAKER) (test code = 3.0 mg/dL 2.3-4.7 604) [id number] 06:48:00 Test Item Value Reference Range Interpretation Comments MAGNESIUM (BEAKER) (test code = 1.5 mg/dL 1.6-2.6 L 627) BASIC METABOLIC [id number] 06:48:00 Test Item Value Reference Range Interpretation Comments SODIUM (BEAKER) 142 meq/L 136-145 (test code = 381) POTASSIUM (BEAKER) 3.6 meq/L 3.5-5.1 (test code = 379) CHLORIDE (BEAKER) 107 meq/L 98-107 (test code = 382) CO2 (BEAKER) (test 30 meq/L 22-29 H code = 355) BLOOD UREA NITROGEN 3 mg/dL 7-21 L (BEAKER) (test code = 354) CREATININE (BEAKER) 1.03 mg/dL 0.57-1.25 (test code = 358) GLUCOSE RANDOM 79 mg/dL 70-105 (BEAKER) (test code = 652) CALCIUM (BEAKER) 8.5 mg/dL 8.4-10.2 (test code = 697) EGFR (BEAKER) (test 96 mL/min/1.73 ESTIMA JOANN GFR IS code = 1092) sq m NOT ACCURATE CREATININE CLEARANCE IN PREDICTING GLOMERULAR FILTRATION RATE . ESTIMATED GFR I S NOT APPLICABLE FOR DIALYSIS PATIEN TS. PROTHROMBIN TIME/[id number] 06:43:00 Test Item Value Reference Range Interpretation Comments PROTIME (BEAKER) (test code = 19.5 seconds 11.7-14.7 H 759) INR (BEAKER) (test code = 370) 1.7 <=5.9 RECOMMENDED COUMADIN/WARFARIN INR THERAPY RANGESSTANDARD DOSE: 2.0 - 3.0 Includes: PROPHYLAXIS for venous thrombosis, systemic embolization; TREATMENT for venous thrombosis and/or pulmonary embolus.HIGH RISK: Target INR is 2.5-3.5 for patients with mechanical heart valves.CARCINOEMBRYONIC ANTIGEN (CEA) 2018-08-30 13:38:00 Test Item Value Reference Range Interpretation Comments CARCINOEMBRYONIC ANTIGEN (BEAKER) 2.9 ng/mL 0.0-5.0 (test code = 685) ALPHA FETOPROTEIN (AFP), TUMOR [id number] 13:38:00 Test Item Value Reference Range Interpretation Comments ALPHA-FETOPROTEIN (BEAKER) (test 2.2 ng/mL <10.0 code = 1094) RAD, CHEST, 1 VIEW, NON [id number] 16:08:00Reason for exam:->CFShould this be performed at the bedside?->YesFINAL REPORT CLINICAL HISTORY: CF TECHNIQUE: 1 view of the chest COMPARISON: 07/31/2018 IMPRESSION: There are no focal infiltrates or pleural effusions. The cardiomediastinal silhouette is within normal limits for size. The visualized bones are intact. Signed: Murray Gomez MDReport Verified Date/Time: 08/29/2018 16:08:13 Reading Location: [address] Consult Reading Room [place], [id number] 19:06:00Reason for exam:->abdominal painFINAL REPORT CT scan of the abdomen and pelvis. CLINICAL HISTORY: Low-grade bowel obstruction, abdominal pain. COMPARISON STUDY: July 30, 2018. TECHNIQUE: Contiguous helical slices were acquired through the abdomen and pelvis post administration of oral and intravenous contrast. This exam was performed according to our department dose optimization program which includes automated exposure control, adjustment of the mA and/or kV according to the patient's size and/or use of ite rative reconstruction technique. FINDINGS: Atelectatic changes are seen in the lung bases. There arealso reticular nodular markings in the right middle lobe, similar to previous. The liver, spleen, and adrenal glands are unremarkable. Several tiny nonocclusive calculi are seen in the left kidney measuring up to 3 mm. The pancreas is fatty infiltrated. Extensive stool is seen throughout the colon. There are post surgical changes in the right colon. A large dilated small bowel loop is seen in the anterior abdominal pelvic region measuring up to 6.1 cm, more pronounced than on previous. There is no free fluid or free air. Diffuse anasarca is seen with presacral edema. The aorta is normal in caliber. Enlarged retroperitoneal lymph nodes are seen measuring up to 1.4 cm and the left periaortic region and 1.2 cm along the gastrohepatic ligament. There are also multiple enlarged lymph nodes along the root of the mesentery measuring up to 2.7 x 1.0 cm. A 2.1 x 1.5 cm lymph node is seen anterior to the right iliac vessels. Bone windows demonstrate no focal abnormality. IMPRESSION:1. Reticulonodular marking in the right middle lobe, stable from previous. The patient likely has cystic fibrosis.2. Significant colonic stool.3. Post surgical changes in the bowel with a markedly dilated small bowel loops suggestive of partial obstruction. Some bowel wall thickening is also noted.4. Fatty atrophy of the pancreas.5. Lymphadenopathy along the root of the mesentery and retroperitoneum. Lymphoproliferative disease including lymphoma cannot be excluded. Signed: Ludin Rich MDReport Verified Date/Time: 08/28/2018 19:06:10 Reading Location: [facility] C0W Consult Reading Room [id number] 16:08:00 Test Item Value Reference Range Interpretation Comments LIPASE (BEAKER) (test code = 749) < U/L 8-78 L BASIC METABOLIC [id number] 15:57:00 Test Item Value Reference Range Interpretation Comments SODIUM (BEAKER) 138 meq/L 136-145 (test code = 381) POTASSIUM (BEAKER) 3.8 meq/L 3.5-5.1 (test code = 379) CHLORIDE (BEAKER) 108 meq/L 98-107 H (test code = 382) CO2 (BEAKER) (test 25 meq/L 22-29 code = 355) BLOOD UREA NITROGEN 17 mg/dL 7-21 (BEAKER) (test code = 354) CREATININE (BEAKER) 0.88 mg/dL 0.57-1.25 (test code = 358) GLUCOSE RANDOM 96 mg/dL 70-105 (BEAKER) (test code = 652) CALCIUM (BEAKER) 8.9 mg/dL 8.4-10.2 (test code = 697) EGFR (BEAKER) (test 115 mL/min/1.73 ESTIM ATED GFR IS code = 1092) sq m NOT ACCURATE CREATININE CLEARANCE IN PREDICTING GLOMERULAR FILTRATION RATE . ESTIMATED GFR I S NOT APPLICABLE FOR DIALYSIS PATIEN TS. HEPATIC FUNCTION [id number] 15:57:00 Test Item Value Reference Range Interpretation Comments TOTAL PROTEIN (BEAKER) (test code = 6.4 gm/dL 6.0-8.3 770) ALBUMIN (BEAKER) (test code = 1145) 3.7 g/dL 3.5-5.0 BILIRUBIN TOTAL (BEAKER) (test code 0.7 mg/dL 0.2-1.2 = 377) BILIRUBIN DIRECT (BEAKER) (test 0.4 mg/dL 0.1-0.5 code = 706) ALKALINE PHOSPHATASE (BEAKER) (test 80 U/L 40-150 code = 346) AST (SGOT) (BEAKER) (test code = 12 U/L 5-34 353) ALT (SGPT) (BEAKER) (test code = 24 U/L 6-55 347) CBC W/PLT COUNT & AUTO [id number] 15:44:00 Test Item Value Reference Range Interpretation Comments WHITE BLOOD CELL COUNT (BEAKER) 6.0 K/ L 3.5-10.5 (test code = 775) RED BLOOD CELL COUNT (BEAKER) 4.18 M/ L 4.63-6.08 L (test code = 761) HEMOGLOBIN (BEAKER) (test code = 12.7 GM/DL 13.7-17.5 L 410) HEMATOCRIT (BEAKER) (test code = 39.4 % 40.1-51.0 L 411) MEAN CORPUSCULAR VOLUME (BEAKER) 94.3 fL 79.0-92.2 H (test code = 753) MEAN CORPUSCULAR HEMOGLOBIN 30.4 pg 25.7-32.2 (BEAKER) (test code = 751) MEAN CORPUSCULAR HEMOGLOBIN CONC 32.2 GM/DL 32.3-36.5 L (BEAKER) (test code = 752) RED CELL DISTRIBUTION WIDTH 12.6 % 11.6-14.4 (BEAKER) (test code = 412) PLATELET COUNT (BEAKER) (test 200 K/CU MM 150-450 code = 756) MEAN PLATELET VOLUME (BEAKER) 11.1 fL 9.4-12.4 (test code = 754) NUCLEATED RED BLOOD CELLS 0 /100 WBC 0-0 (BEAKER) (test code = 413) NEUTROPHILS RELATIVE PERCENT 54 % (BEAKER) (test code = 429) LYMPHOCYTES RELATIVE PERCENT 32 % (BEAKER) (test code = 430) MONOCYTES RELATIVE PERCENT 13 % (BEAKER) (test code = 431) EOSINOPHILS RELATIVE PERCENT 1 % (BEAKER) (test code = 432) BASOPHILS RELATIVE PERCENT 1 % (BEAKER) (test code = 437) NEUTROPHILS ABSOLUTE COUNT 3.21 K/ L 1.78-5.38 (BEAKER) (test code = 670) LYMPHOCYTES ABSOLUTE COUNT 1.92 K/ L 1.32-3.57 (BEAKER) (test code = 414) MONOCYTES ABSOLUTE COUNT (BEAKER) 0.75 K/ L 0.30-0.82 (test code = 415) EOSINOPHILS ABSOLUTE COUNT 0.08 K/ L 0.04-0.54 (BEAKER) (test code = 416) BASOPHILS ABSOLUTE COUNT (BEAKER) 0.03 K/ L 0.01-0.08 (test code = 417) IMMATURE GRANULOCYTES-RELATIVE 0 % 0-1 PERCENT (BEAKER) (test code = 2801) BLOOD [id number] 18:01:00 Test Item Value Reference Range Interpretation Comments CULTURE (BEAKER) (test No growth in 5 days code = 1095) BLOOD [id number] 15:01:00 Test Item Value Reference Range Interpretation Comments CULTURE (BEAKER) A From Aerobi c Bottle (test code = Only Micrococcu s 1095) species GRAM STAIN RESULT From aerobic (BEAKER) (test bottle only: gram code = 1123) positive cocci in clusters BLOOD [id number] 18:00:00 Test Item Value Reference Range Interpretation Comments CULTURE (BEAKER) (test No growth in 5 days code = 1095) RAD, ABDOMEN/KUB, 1 VIEW [id number] 09:39:00Reason for exam:->f/u DIOSFINAL REPORT TECHNIQUE: Supine views of the abdomen dated 08/03/2018. HISTORY: Follow-up LIONEL COMPARISON: Abdominal radiographs dated 08/02/2018 IMPRESSION:Surgical clip and sutures are seen in the right lower quadrant. There is stool throughout the colon similar in appearance to the prior examination. No free intraperitoneal air. No abnormal soft tissue mass. No fracture. Signed: Sae Sims MDReport Verified Date/Time: 08/03/2018 09:39:24 Reading Location: [facility] Radiology Reading Room RAD, ABDOMEN/KUB, 1 VIEW AP 2018-08-02 13:48:00Reason for exam:->constipationFINAL REPORT Abdomen. HISTORY: Constipation. COMPARISON STUDY: July 20, 2018. FINDINGS: Two supine views of the abdomen demonstrates significant stool throughout the colon consistent with constipation. Mildly prominent small bowel loops are seen. The regional skeleton is unremarkable. This film is insensitive for the detection of free air. IMPRESSION: Findings consistent with c onstipation. Signed: Ludin Rich MDReport Verified Date/Time: 08/02/2018 13:48:07 Reading Location: [facility] [id number] Consult Reading Room BLOOD CULTURE IDENTIFICATION [id number] 13:27:00 Test Item Value Reference Range Interpretation Comments LISTERIA MONOCYTOGENES (test Not detected Not detected code = 20160712) STAPHYLOCOCCUS (test code = Not detected Not detected 20160914) STAPHYLOCOCCUS AUREUS (test code Not detected Not detected = 20160915) STREPTOCOCCUS (test code = Not detected Not detected 20160916) STREPTOCOCCUS AGALACTIAE (GROUP Not detected Not detected B) (test code = 7332790) STREPTOCOCCUS PNEUMONIAE (test Not detected Not detected code = 4393719) STREPTOCOCCUS PYOGENES (GROUP A) Not detected Not detected (test code = 9991165) ACINETOBACTER BAUMANNII (test Not detected Not detected code = 6170848) HAEMOPHILUS INFLUENZAE (test Not detected Not detected code = 8219742) NEISSERIA MENINGITIDIS (test Not detected Not detected code = 2226452) ENTEROBACTERIACEAE (test code = Not detected Not detected 5090588) ENTEROBACTER CLOACOE COMPLEX Not detected Not detected (test code = 0021614) KLEBSIELLA OXYTOCA (test code = Not detected Not detected 4401470) KLEBSIELLA PNEUMONIAE (test code Not detected Not detected = 1650) PROTEUS (test code = 2817921) Not detected Not detected SERRATIA MARCESCENS (test code = Not detected Not detected 9509513) PADILLA ALBICANS (test code = Not detected Not detected 5764994) PADILLA GLABRATA (test code = Not detected Not detected 2437765) PADILLA KRUSEI (test code = Not detected Not detected 0667669) PADILLA PARAPSILOSIS (test code Not detected Not detected = 2496117) PADILLA TROPICALIS (test code = Not detected Not detected 6918523) ESCHERICHIA COLI (test code = Not detected Not detected 5527761) METHICILLIN-RESISTANCE GENE Not detected (test code = 3189663) VANCOMYCIN-RESISTANCE GENE (test Not detected code = 5856235) CARBAPENEM-RESISTANCE GENE (test Not detected code = 9766505) ENTEROCOCCUS-BEAKER (test code = Not detected Not detected 8831440) PSEUDOMONAS AERUGINOSA-BEAKER Not detected Not detected (test code = 6527041) Other bacteria and resistance markers not targeted by this PCR panel cannot be excluded; therefore clinical correlation and follow up of serology, culture results, and other molecular studies is required. The results are not intended to be used as the sole means for clinical diagnosis or patient management decisions. This sample was tested at the [facility] Molecular Diagnostics Laboratory using the [employer] Blood Culture ID Panel. It is FDA cleared and has been verified and approved by the [facility] Molecular Diagnostics Laboratory for clinical use. This laboratory is CLIA-certified and College ofAmerican Pathologists (CAP)-accredited to perform high complexity testing.BASIC METABOLIC [id number] 10:10:00 Test Item Value Reference Range Interpretation Comments SODIUM (BEAKER) 136 meq/L 136-145 (test code = 381) POTASSIUM (BEAKER) 4.4 meq/L 3.5-5.1 Specimen slightly (test code = 379) hemolyzed CHLORIDE (BEAKER) 106 meq/L 98-107 (test code = 382) CO2 (BEAKER) (test 22 meq/L 22-29 code = 355) BLOOD UREA NITROGEN 10 mg/dL 7-21 (BEAKER) (test code = 354) CREATININE (BEAKER) 1.25 mg/dL 0.57-1.25 Specimen slightly (test code = 358) hemolyzed GLUCOSE RANDOM 107 mg/dL 70-105 H (BEAKER) (test code = 652) CALCIUM (BEAKER) 9.0 mg/dL 8.4-10.2 (test code = 697) EGFR (BEAKER) (test 77 mL/min/1.73 ESTIMA JOANN GFR IS code = 1092) sq m NOT ACCURATE CREATININE CLEARANCE IN PREDICTING GLOMERULAR FILTRATION RATE . ESTIMATED GFR I S NOT APPLICABLE FOR DIALYSIS PATIEN TS. CBC W/PLT COUNT & AUTO [id number] 09:30:00 Test Item Value Reference Range Interpretation Comments WHITE BLOOD CELL COUNT (BEAKER) 7.7 K/ L 3.5-10.5 (test code = 775) RED BLOOD CELL COUNT (BEAKER) 4.13 M/ L 4.63-6.08 L (test code = 761) HEMOGLOBIN (BEAKER) (test code = 12.7 GM/DL 13.7-17.5 L 410) HEMATOCRIT (BEAKER) (test code = 39.2 % 40.1-51.0 L 411) MEAN CORPUSCULAR VOLUME (BEAKER) 94.9 fL 79.0-92.2 H (test code = 753) MEAN CORPUSCULAR HEMOGLOBIN 30.8 pg 25.7-32.2 (BEAKER) (test code = 751) MEAN CORPUSCULAR HEMOGLOBIN CONC 32.4 GM/DL 32.3-36.5 (BEAKER) (test code = 752) RED CELL DISTRIBUTION WIDTH 13.2 % 11.6-14.4 (BEAKER) (test code = 412) PLATELET COUNT (BEAKER) (test 244 K/CU MM 150-450 code = 756) MEAN PLATELET VOLUME (BEAKER) 11.6 fL 9.4-12.4 (test code = 754) NUCLEATED RED BLOOD CELLS 0 /100 WBC 0-0 (BEAKER) (test code = 413) NEUTROPHILS RELATIVE PERCENT 65 % (BEAKER) (test code = 429) LYMPHOCYTES RELATIVE PERCENT 20 % (BEAKER) (test code = 430) MONOCYTES RELATIVE PERCENT 9 % (BEAKER) (test code = 431) EOSINOPHILS RELATIVE PERCENT 5 % (BEAKER) (test code = 432) BASOPHILS RELATIVE PERCENT 0 % (BEAKER) (test code = 437) NEUTROPHILS ABSOLUTE COUNT 5.02 K/ L 1.78-5.38 (BEAKER) (test code = 670) LYMPHOCYTES ABSOLUTE COUNT 1.56 K/ L 1.32-3.57 (BEAKER) (test code = 414) MONOCYTES ABSOLUTE COUNT (BEAKER) 0.69 K/ L 0.30-0.82 (test code = 415) EOSINOPHILS ABSOLUTE COUNT 0.37 K/ L 0.04-0.54 (BEAKER) (test code = 416) BASOPHILS ABSOLUTE COUNT (BEAKER) 0.03 K/ L 0.01-0.08 (test code = 417) IMMATURE GRANULOCYTES-RELATIVE 0 % 0-1 PERCENT (BEAKER) (test code = 2801) RAD, CHEST, 2 [id number] 20:55:00Reason for exam:->Cystic fibrosisFINAL REPORT TECHNIQUE: 2 views of the chest. COMPARISON: None FINDINGS: The cardiac silhouette is within normal limits. Mediastinum is unremarkable. Some vague curvilinear densities in the mid and upper lung zones are noted which could be related to a number possibilities including pneumonitis, cystic fibrosis, etc. Lungs otherwise clear. No pleural effusions or pneumothorax. Noacute skeletal abnormality. Soft tissues appear unremarkable. Signed: Greg Reina MDReport Verified Date/Time: 07/31/2018 20:55:36 Reading Location: [facility] Reading Room [facility] METABOLIC [id number] 06:51:00 Test Item Value Reference Range Interpretation Comments SODIUM (BEAKER) 134 meq/L 136-145 L (test code = 381) POTASSIUM (BEAKER) 4.2 meq/L 3.5-5.1 (test code = 379) CHLORIDE (BEAKER) 106 meq/L 98-107 (test code = 382) CO2 (BEAKER) (test 22 meq/L 22-29 code = 355) BLOOD UREA NITROGEN 13 mg/dL 7-21 (BEAKER) (test code = 354) CREATININE (BEAKER) 1.16 mg/dL 0.57-1.25 (test code = 358) GLUCOSE RANDOM 87 mg/dL 70-105 (BEAKER) (test code = 652) CALCIUM (BEAKER) 9.0 mg/dL 8.4-10.2 (test code = 697) EGFR (BEAKER) (test 84 mL/min/1.73 ESTIMA JOANN GFR IS code = 1092) sq m NOT ACCURATE CREATININE CLEARANCE IN PREDICTING GLOMERULAR FILTRATION RATE . ESTIMATED GFR I S NOT APPLICABLE FOR DIALYSIS PATIEN TS. CBC W/PLT COUNT & AUTO [id number] 06:09:00 Test Item Value Reference Range Interpretation Comments WHITE BLOOD CELL COUNT (BEAKER) 8.9 K/ L 3.5-10.5 (test code = 775) RED BLOOD CELL COUNT (BEAKER) 4.21 M/ L 4.63-6.08 L (test code = 761) HEMOGLOBIN (BEAKER) (test code = 12.8 GM/DL 13.7-17.5 L 410) HEMATOCRIT (BEAKER) (test code = 39.9 % 40.1-51.0 L 411) MEAN CORPUSCULAR VOLUME (BEAKER) 94.8 fL 79.0-92.2 H (test code = 753) MEAN CORPUSCULAR HEMOGLOBIN 30.4 pg 25.7-32.2 (BEAKER) (test code = 751) MEAN CORPUSCULAR HEMOGLOBIN CONC 32.1 GM/DL 32.3-36.5 L (BEAKER) (test code = 752) RED CELL DISTRIBUTION WIDTH 13.2 % 11.6-14.4 (BEAKER) (test code = 412) PLATELET COUNT (BEAKER) (test 226 K/CU MM 150-450 code = 756) MEAN PLATELET VOLUME (BEAKER) 11.4 fL 9.4-12.4 (test code = 754) NUCLEATED RED BLOOD CELLS 0 /100 WBC 0-0 (BEAKER) (test code = 413) NEUTROPHILS RELATIVE PERCENT 60 % (BEAKER) (test code = 429) LYMPHOCYTES RELATIVE PERCENT 23 % (BEAKER) (test code = 430) MONOCYTES RELATIVE PERCENT 10 % (BEAKER) (test code = 431) EOSINOPHILS RELATIVE PERCENT 6 % (BEAKER) (test code = 432) BASOPHILS RELATIVE PERCENT 0 % (BEAKER) (test code = 437) NEUTROPHILS ABSOLUTE COUNT 5.36 K/ L 1.78-5.38 (BEAKER) (test code = 670) LYMPHOCYTES ABSOLUTE COUNT 2.02 K/ L 1.32-3.57 (BEAKER) (test code = 414) MONOCYTES ABSOLUTE COUNT (BEAKER) 0.89 K/ L 0.30-0.82 H (test code = 415) EOSINOPHILS ABSOLUTE COUNT 0.57 K/ L 0.04-0.54 H (BEAKER) (test code = 416) BASOPHILS ABSOLUTE COUNT (BEAKER) 0.04 K/ L 0.01-0.08 (test code = 417) IMMATURE GRANULOCYTES-RELATIVE 0 % 0-1 PERCENT (BEAKER) (test code = 2801) U/S, ABDOMINAL, [id number] 11:04:00Abdomen limited area? Add comment if clarification is needed.->Gall BladderReason for exam:->ABDOMINAL PAIN FINAL REPORT ULTRASOUND RIGHT UPPER QUADRANT OF THE ABDOMEN HISTORY: Abdominal pain COMPARISON: CT abdomen from today TECHNIQUE: Real-time ultrasound of the right upper quadrant ofthe abdomen was performed. FINDINGS: The liver is normal in size. Hepatic length is 12.7 cm. No masslesion is visualized. Mild diffuse increase in hepatic echogenicity suggestive of mild fatty infiltration. The gallbladder demonstrates normal wall thickness with no pericholecystic fluid. No sonographic Puckett sign was elicited. No gallstones. The common bile duct is not visualized, likely decompressed. No intrahepatic bile duct dilatation is visualized. The main portal vein is normal in caliber, measuring 9 mm. No pancreatic abnormality was visualized. Portions of the pancreas are obscured by bowel gas. No ascites or pleural effusion. The right kidney is normal in size, contour, and echogenicity.The right kidney measures 9.5 cm in length. No hydronephrosis, mass lesion or stones are visualized.No abnormalities are seen in the inferior vena cava or hepatic veins. The majority of the abdominal aorta is obscured by bowel gas. IMPRESSION: 1. Mild fatty infiltration of the liver. 2. No gallstonesare visualized. Signed: Diane Michael MDReport Verified Date/Time: 07/30/2018 11:04:05 Reading Location: [facility] C0[facility] Transitional Reading Room CT, [id number] 10:05:00Reason for exam:->Abdominal painWhat is the patient's sedation requirement?->No SedationFINAL REPORT ABDOMINAL AND PELVIS CT DATED 07/30/2018 COMPARISON: July 26, 2018 CLINICAL INFORMATION: Abdominal paindiffuse abd pain TECHNIQUE: Axial images of the abdomen and pelvis were obtained from diaphragm to the pubic symphysis with intravenous contrast. This exam was performed according to our departmental dose-optimization program, which includes automated exposure con trol, adjustment of the mA and/or kV according to patient size and/or use of interactive reconstruction technique. COMMENT: Liver and spleen are normal in size without focal abnormality. Gallbladder isdistended. No gallstone or biliary dilatation is noted. Pancreas is somewhat atrophic. The adrenals are unremarkable. Both kidneys are normal in size and functioning. No hydronephrosis, hydroureter, urolithiasis is seen. The small and large bowel are suboptimally evaluated secondary to lack of GI contrast. Wall thickening is seen in segments of the small and large bowel in the mid abdomen. Postsurgical changes are seen in the right mid abdomen in segment of the small bowel. Appendix is not visualized. Abdominal aorta is normal in caliber. The celiac trunk, superior mesenteric, and inferior mesenteric arteries are patent. Prostate is normal in size. The urinary bladder is somewhat contracted. No mass, adenopathy or ascites is present. IMPRESSION: 1. Limited examination secondary to lack of GI contrast.2. Wall thickening in segments of the small and large bowel suggestive of enterocolitis. Please correlate clinically. Signed: Carmelo Tierney MDReport Verified Date/Time: 07/30/2018 10:05:17 Reading Location: [address] Body Reading Room URINALYSIS WITH MICROSCOPIC IF [id number] 09:06:00 Test Item Value Reference Range Interpretation Comments COLOR (BEAKER) (test code = 470) Light Yellow CLARITY (BEAKER) (test code = Clear 469) SPECIFIC GRAVITY UA (BEAKER) 1.012 1.001-1.035 (test code = 468) PH UA (BEAKER) (test code = 467) 5.0 5.0-8.0 PROTEIN UA (BEAKER) (test code = Negative Negative 464) GLUCOSE UA (BEAKER) (test code = Negative Negative 365) KETONES UA (BEAKER) (test code = Negative Negative 371) BILIRUBIN UA (BEAKER) (test code Negative Negative = 462) BLOOD UA (BEAKER) (test code = Negative Negative 461) NITRITE UA (BEAKER) (test code = Negative Negative 465) LEUKOCYTE ESTERASE UA (BEAKER) Negative Negative (test code = 466) UROBILINOGEN UA (BEAKER) (test 0.2 mg/dL 0.2-1.0 code = 463) SOURCE(BEAKER) (test code = 2795) [id number] 08:53:00 Test Item Value Reference Range Interpretation Comments LIPASE (BEAKER) (test code = 749) < U/L 8-78 L [id number] 08:53:00 Test Item Value Reference Range Interpretation Comments PROTIME (BEAKER) (test code = 16.6 seconds 11.7-14.7 H 759) INR (BEAKER) (test code = 370) 1.3 <=5.9 PARTIAL THROMBOPLASTIN TIME 31.0 seconds 22.5-36.0 (BEAKER) (test code = 760) RECOMMENDED COUMADIN/WARFARIN INR THERAPY RANGESSTANDARD DOSE: 2.0 - 3.0 Includes: PROPHYLAXIS for venous thrombosis, systemic embolization; TREATMENT for venous thrombosis and/or pulmonary embolus.HIGH RISK: Target INR is 2.5-3.5 for patients with mechanical heart valves.[id number] 08:46:00 Test Item Value Reference Range Interpretation Comments MAGNESIUM (BEAKER) (test code = 1.6 mg/dL 1.6-2.6 627) COMPREHENSIVE METABOLIC [id number] 08:46:00 Test Item Value Reference Range Interpretation Comments TOTAL PROTEIN 6.6 gm/dL 6.0-8.3 (BEAKER) (test code = 770) ALBUMIN (BEAKER) 3.7 g/dL 3.5-5.0 (test code = 1145) ALKALINE PHOSPHATASE 82 U/L 40-150 (BEAKER) (test code = 346) BILIRUBIN TOTAL 1.0 mg/dL 0.2-1.2 (BEAKER) (test code = 377) SODIUM (BEAKER) (test 135 meq/L 136-145 L code = 381) POTASSIUM (BEAKER) 4.6 meq/L 3.5-5.1 (test code = 379) CHLORIDE (BEAKER) 106 meq/L 98-107 (test code = 382) CO2 (BEAKER) (test 25 meq/L 22-29 code = 355) BLOOD UREA NITROGEN 16 mg/dL 7-21 (BEAKER) (test code = 354) CREATININE (BEAKER) 0.51 mg/dL 0.57-1.25 L (test code = 358) GLUCOSE RANDOM 103 mg/dL 70-105 (BEAKER) (test code = 652) CALCIUM (BEAKER) 8.7 mg/dL 8.4-10.2 (test code = 697) AST (SGOT) (BEAKER) 16 U/L 5-34 (test code = 353) ALT (SGPT) (BEAKER) 22 U/L 6-55 (test code = 347) EGFR (BEAKER) (test 216 ESTIMATE D GFR IS code = 1092) mL/min/1.73 sq NOT ACCURA TE m CREATININE CLEARANCE IN PREDICTING GLOMERULAR FILTRATION RATE . ESTIMATED GFR I S NOT APPLICABLE FOR DIALYSIS PATIEN TS. CBC W/PLT COUNT & AUTO [id number] 08:34:00 Test Item Value Reference Range Interpretation Comments WHITE BLOOD CELL COUNT (BEAKER) 18.0 K/ L 3.5-10.5 H (test code = 775) RED BLOOD CELL COUNT (BEAKER) 4.59 M/ L 4.63-6.08 L (test code = 761) HEMOGLOBIN (BEAKER) (test code = 13.9 GM/DL 13.7-17.5 410) HEMATOCRIT (BEAKER) (test code = 43.8 % 40.1-51.0 411) MEAN CORPUSCULAR VOLUME (BEAKER) 95.4 fL 79.0-92.2 H (test code = 753) MEAN CORPUSCULAR HEMOGLOBIN 30.3 pg 25.7-32.2 (BEAKER) (test code = 751) MEAN CORPUSCULAR HEMOGLOBIN CONC 31.7 GM/DL 32.3-36.5 L (BEAKER) (test code = 752) RED CELL DISTRIBUTION WIDTH 13.3 % 11.6-14.4 (BEAKER) (test code = 412) PLATELET COUNT (BEAKER) (test 189 K/CU MM 150-450 code = 756) MEAN PLATELET VOLUME (BEAKER) 12.3 fL 9.4-12.4 (test code = 754) NUCLEATED RED BLOOD CELLS 0 /100 WBC 0-0 (BEAKER) (test code = 413) (CELLAVISION MANUAL DIFF)[id number] 08:34:00 Test Item Value Reference Range Interpretation Comments NEUTROPHILS - REL 84 % (CELLAVISION)(BEAKER) (test code = 2816) LYMPHOCYTES - REL 5 % (CELLAVISION)(BEAKER) (test code = 2817) MONOCYTES - REL 7 % (CELLAVISION)(BEAKER) (test code = 2818) EOSINOPHILS - REL 3 % (CELLAVISION)(BEAKER) (test code = 2819) BANDS - REL (CELLAVISION)(BEAKER) 1 % 0-10 (test code = 2826) NEUTROPHILS - ABS 15.12 K/ul 1.78-5.38 H (CELLAVISION)(BEAKER) (test code = 2830) LYMPHOCYTES - ABS 0.90 K/ul 1.32-3.57 L (CELLAVISION)(BEAKER) (test code = 2831) MONOCYTES - ABS 1.26 K/uL 0.30-0.82 H (CELLAVISION)(BEAKER) (test code = 2832) EOSINOPHILS - ABS 0.54 K/uL 0.04-0.54 (CELLAVISION)(BEAKER) (test code = 2834) BANDS - ABS (CELLAVISION)(BEAKER) 0.18 K/uL 0.00-0.80 (test code = 2840) TOTAL COUNTED (BEAKER) (test code 100 = 1351) PLT MORPHOLOGY (BEAKER) (test code Normal = 486) SMUDGE CELLS (BEAKER) (test code = Present 1371) POIKILOCYTES (BEAKER) (test code = 1+ few 966) PLATELET CONCENTRATION Adequate (CELLAVISION)(BEAKER) (test code = 3438) Received comment: User comments: Slide comments:CT, [id number] 18:32:00 Reason for exam:->ABDOMINAL PAINWhat is the patient's sedation requirement?- >No SedationFINAL REPORT CT scan of the abdomen and pelvis. Clinical history: Abdominal pain. COMPARISON STUDY: Gastrografin colonic enema dated July 21, 2018. TECHNIQUE: Contiguous helicalslices were acquired through the abdomen and pelvis posted ministration of intravenous contrast. No o ral contrast was administered. This exam was performed according to our department dose optimizationprogram which includes automated exposure control, adjustment of the mA and/or kV according to the patient's size and/or use of iterative reconstruction technique. FINDINGS: Reticulonodular markings are seen in the lung bases. The liver, spleen, adrenal glands and right kidney are unremarkable. Some punctate nonocclusive left renal calculi are noted. The pancreas is fatty infiltrated. The gallbladderis contracted. No biliary dilatation is seen. There are dilated stool-filled loops of colon. Some Gas trografin remains in the sigmoid and rectal region. Some fecal-like material is seen within nondistended small bowel. Some postsurgical changes are seen in the right-sided colon. There is no free fluidor free air. The appendix is not well seen. No suspicious adenopathy is seen. The aorta is normal incaliber. Bone windows are unremarkable. IMPRESSION:1. Significant colonic stool with dilated colon suggestive of constipation. Gastrografin remains in the distal colon.2. Postsurgical changes in the right bowel. The appendix is not seen.3. Other findings as described above. Signed: Ludin Rich MDReport Verified Date/Time: 07/26/2018 18:32:08 Reading Location: [facility] C013Y CT Body Reading Room ALT (SGPT)2018-07-26 16:15:00 Test Item Value Reference Range Interpretation Comments ALT (SGPT) (BEAKER) (test code = 347) 40 U/L 6-55 AST (SGOT)2018-07-26 16:15:00 Test Item Value Reference Range Interpretation Comments AST (SGOT) (BEAKER) (test code = 353) 31 U/L 5-34 BASIC METABOLIC [id number] 16:15:00 Test Item Value Reference Range Interpretation Comments SODIUM (BEAKER) 135 meq/L 136-145 L (test code = 381) POTASSIUM (BEAKER) 4.0 meq/L 3.5-5.1 (test code = 379) CHLORIDE (BEAKER) 103 meq/L 98-107 (test code = 382) CO2 (BEAKER) (test 24 meq/L 22-29 code = 355) BLOOD UREA NITROGEN 20 mg/dL 7-21 (BEAKER) (test code = 354) CREATININE (BEAKER) 1.30 mg/dL 0.57-1.25 H (test code = 358) GLUCOSE RANDOM 135 mg/dL 70-105 H (BEAKER) (test code = 652) CALCIUM (BEAKER) 9.2 mg/dL 8.4-10.2 (test code = 697) EGFR (BEAKER) (test 73 mL/min/1.73 ESTIMA JOANN GFR IS code = 1092) sq m NOT ACCURATE CREATININE CLEARANCE IN PREDICTING GLOMERULAR FILTRATION RATE . ESTIMATED GFR I S NOT APPLICABLE FOR DIALYSIS PATIEN TS. BILIRUBIN, ADULT [id number] 16:15:00 Test Item Value Reference Range Interpretation Comments BILIRUBIN TOTAL (BEAKER) (test code 1.0 mg/dL 0.2-1.2 = 377) [id number] 16:15:00 Test Item Value Reference Range Interpretation Comments LIPASE (BEAKER) (test code = 749) < U/L 8-78 L CBC W/PLT COUNT & AUTO [id number] 16:00:00 Test Item Value Reference Range Interpretation Comments WHITE BLOOD CELL COUNT (BEAKER) 9.3 K/ L 3.5-10.5 (test code = 775) RED BLOOD CELL COUNT (BEAKER) 4.40 M/ L 4.63-6.08 L (test code = 761) HEMOGLOBIN (BEAKER) (test code = 13.3 GM/DL 13.7-17.5 L 410) HEMATOCRIT (BEAKER) (test code = 42.1 % 40.1-51.0 411) MEAN CORPUSCULAR VOLUME (BEAKER) 95.7 fL 79.0-92.2 H (test code = 753) MEAN CORPUSCULAR HEMOGLOBIN 30.2 pg 25.7-32.2 (BEAKER) (test code = 751) MEAN CORPUSCULAR HEMOGLOBIN CONC 31.6 GM/DL 32.3-36.5 L (BEAKER) (test code = 752) RED CELL DISTRIBUTION WIDTH 13.3 % 11.6-14.4 (BEAKER) (test code = 412) PLATELET COUNT (BEAKER) (test 231 K/CU MM 150-450 code = 756) MEAN PLATELET VOLUME (BEAKER) 11.3 fL 9.4-12.4 (test code = 754) NUCLEATED RED BLOOD CELLS 0 /100 WBC 0-0 (BEAKER) (test code = 413) NEUTROPHILS RELATIVE PERCENT 66 % (BEAKER) (test code = 429) LYMPHOCYTES RELATIVE PERCENT 24 % (BEAKER) (test code = 430) MONOCYTES RELATIVE PERCENT 7 % (BEAKER) (test code = 431) EOSINOPHILS RELATIVE PERCENT 3 % (BEAKER) (test code = 432) BASOPHILS RELATIVE PERCENT 1 % (BEAKER) (test code = 437) NEUTROPHILS ABSOLUTE COUNT 6.12 K/ L 1.78-5.38 H (BEAKER) (test code = 670) LYMPHOCYTES ABSOLUTE COUNT 2.22 K/ L 1.32-3.57 (BEAKER) (test code = 414) MONOCYTES ABSOLUTE COUNT (BEAKER) 0.62 K/ L 0.30-0.82 (test code = 415) EOSINOPHILS ABSOLUTE COUNT 0.29 K/ L 0.04-0.54 (BEAKER) (test code = 416) BASOPHILS ABSOLUTE COUNT (BEAKER) 0.06 K/ L 0.01-0.08 (test code = 417) IMMATURE GRANULOCYTES-RELATIVE 0 % 0-1 PERCENT (BEAKER) (test code = 2801) SPUTUM CULTURE + GRAM [id number] 08:14:00 Test Item Value Reference Range Interpretation Comments CULTURE (BEAKER) PSEUDOMONAS A 3+ Pseudomo kelli (test code = 1095) AERUGINOSA aeruginos a Amikacin (test code Susceptible 0-16 S = 1) , Resistant <0 or >16 Aztreonam (test Susceptible 0-8 , S code = 32) Resistant <0 or >8 Cefepime (test code Susceptible 0-8 , S = 51) Resistant <0 or >8 Ceftazidime (test Susceptible 0-8 , S code = 27) Resistant <0 or >8 Ciprofloxacin (test Susceptible 0-1 , S code = 7) Resistant <0 or >1 Gentamicin (test Susceptible 0-4 , S code = 18) Resistant <0 or >4 Levofloxacin (test Susceptible 0-2 , S code = 22) Resistant <0 or >2 Meropenem (test Susceptible 0-2 , S code = 34) Resistant <0 or >2 Piperacillin (test Susceptible 0-16 S code = 24) , Resistant <0 or >16 Piperacillin + Susceptible 0-16 S Tazobactam (test , Resistant <0 or code = 29) >16 Tobramycin (test Susceptible 0-4 , S code = 25) Resistant <0 or >4 CULTURE (BEAKER) A 1 out of 4 media (test code = 1095) Aspergill us fumigatus GRAM STAIN RESULT 4+ WBCs (BEAKER) (test code = 1123) GRAM STAIN RESULT 0-5 epithelial (BEAKER) (test code cells = 421546) GRAM STAIN RESULT 1+ gram negative (BEAKER) (test code rods = 991825) GRAM STAIN RESULT 1+ gram positive (BEAKER) (test code rods = 771018) GRAM STAIN RESULT 1+ gram positive (BEAKER) (test code cocci in chains, = 557127) pairs and clusters <1+ Normal respiratory maria del carmen presentBLOOD [id number] 11:00:00 Test Item Value Reference Range Interpretation Comments CULTURE (BEAKER) (test No growth in 5 days code = 1095) BASIC METABOLIC [id number] 06:31:00 Test Item Value Reference Range Interpretation Comments SODIUM (BEAKER) 138 meq/L 136-145 (test code = 381) POTASSIUM (BEAKER) 3.4 meq/L 3.5-5.1 L (test code = 379) CHLORIDE (BEAKER) 104 meq/L 98-107 (test code = 382) CO2 (BEAKER) (test 28 meq/L 22-29 code = 355) BLOOD UREA NITROGEN 5 mg/dL 7-21 L (BEAKER) (test code = 354) CREATININE (BEAKER) 1.12 mg/dL 0.57-1.25 (test code = 358) GLUCOSE RANDOM 111 mg/dL 70-105 H (BEAKER) (test code = 652) CALCIUM (BEAKER) 8.7 mg/dL 8.4-10.2 (test code = 697) EGFR (BEAKER) (test 87 mL/min/1.73 ESTIMA JOANN GFR IS code = 1092) sq m NOT ACCURATE CREATININE CLEARANCE IN PREDICTING GLOMERULAR FILTRATION RATE . ESTIMATED GFR I S NOT APPLICABLE FOR DIALYSIS PATIEN TS. CBC (HEMOGRAM ONLY)2018-07-22 05:17:00 Test Item Value Reference Range Interpretation Comments WHITE BLOOD CELL COUNT (BEAKER) 5.1 K/ L 3.5-10.5 (test code = 775) RED BLOOD CELL COUNT (BEAKER) 3.81 M/ L 4.63-6.08 L (test code = 761) HEMOGLOBIN (BEAKER) (test code = 11.7 GM/DL 13.7-17.5 L 410) HEMATOCRIT (BEAKER) (test code = 35.5 % 40.1-51.0 L 411) MEAN CORPUSCULAR VOLUME (BEAKER) 93.2 fL 79.0-92.2 H (test code = 753) MEAN CORPUSCULAR HEMOGLOBIN 30.7 pg 25.7-32.2 (BEAKER) (test code = 751) MEAN CORPUSCULAR HEMOGLOBIN CONC 33.0 GM/DL 32.3-36.5 (BEAKER) (test code = 752) RED CELL DISTRIBUTION WIDTH 12.9 % 11.6-14.4 (BEAKER) (test code = 412) PLATELET COUNT (BEAKER) (test 208 K/CU MM 150-450 code = 756) MEAN PLATELET VOLUME (BEAKER) 10.9 fL 9.4-12.4 (test code = 754) NUCLEATED RED BLOOD CELLS 0 /100 WBC 0-0 (BEAKER) (test code = 413) FL, [id number] 16:00:00Reason for exam:->CF with LIONEL, needs barium contrast enema.FINAL REPORT Gastrografin enema CLINICAL HISTORY: Cystic fibrosis with LIONEL DISCUSSION: Visual Merchandising Specialist film of the abdomen demonstrates large amount of fecal content in colon, and distendedsmall bowel. After the rectal tube is advanced into the rectum and the balloon inflated (performed by the technologist), Gastrografin is infused into the rectum in a retrograde fashion via gravity, until the right colon is opacified. No obstruction or high-grade stricture is identified. Post evacuation images demonstrate mild distention of the colon. Fluoroscopy time: One minute Number of images obtained: 10 Impression: Therapeutic enema as described. Signed: Socrates Waters MDReport Verified Date/Time: 07/21/2018 16:00:52 Reading Location: [facility] C013X [facility] Consult Reading Room CREATININE, RANDOM [id number] 12:59:00 Test Item Value Reference Range Interpretation Comments CREATININE URINE (BEAKER) (test 88.2 mg/dL code = 375) Reference Range: No NormalsSODIUM, RANDOM [id number] 12:59:00 Test Item Value Reference Range Interpretation Comments SODIUM URINE (BEAKER) (test code = 167 meq/L 243) Reference Range: No NormalsURINALYSIS W/ [id number] 10:58:00 Test Item Value Reference Range Interpretation Comments COLOR (BEAKER) (test code = Yellow 470) CLARITY (BEAKER) (test code = Clear 469) SPECIFIC GRAVITY UA (BEAKER) 1.008 1.001-1.035 (test code = 468) PH UA (BEAKER) (test code = 7.5 5.0-8.0 467) PROTEIN UA (BEAKER) (test code Negative Negative = 464) GLUCOSE UA (BEAKER) (test code Negative Negative = 365) KETONES UA (BEAKER) (test code Negative Negative = 371) BILIRUBIN UA (BEAKER) (test Negative Negative code = 462) BLOOD UA (BEAKER) (test code = Negative Negative 461) NITRITE UA (BEAKER) (test code Negative Negative = 465) LEUKOCYTE ESTERASE UA (BEAKER) Negative Negative (test code = 466) UROBILINOGEN UA (BEAKER) (test 0.2 mg/dL 0.2-1.0 code = 463) RBC UA (BEAKER) (test code = 0 /HPF 519) WBC UA (BEAKER) (test code = < /HPF 520) SQUAMOUS EPITHELIAL (BEAKER) < /HPF (test code = 516) SOURCE(BEAKER) (test code = Urine, Voided 0175) TSH/FREE T4 IF [id number] 10:13:00 Test Item Value Reference Range Interpretation Comments THYROID STIMULATING HORMONE 1.64 uIU/mL 0.35-4.94 (BEAKER) (test code = 772) TROPONIN [id number] 10:04:00 Test Item Value Reference Range Interpretation Comments TROPONIN I (BEAKER) (test code = 397) < ng/mL 0.00-0.03 Troponin I (TnI) levels must be interpreted in the context of the presenting symptoms and the clinical findings. Elevated TnI levels indicate myocardial damage, but are not specific for ischemic heart disease. Elevated TnI levels are seen in patients with other cardiac conditions (including myocarditis and congestive heart failure), and slight TnI elevations occur in patients with other conditions, including sepsis, renal failure, acidosis, acute neurological disease, and persistent tachyarrhythmia.BASIC METABOLIC [id number] 05:36:00 Test Item Value Reference Range Interpretation Comments SODIUM (BEAKER) 135 meq/L 136-145 L (test code = 381) POTASSIUM (BEAKER) 3.6 meq/L 3.5-5.1 (test code = 379) CHLORIDE (BEAKER) 104 meq/L 98-107 (test code = 382) CO2 (BEAKER) (test 25 meq/L 22-29 code = 355) BLOOD UREA NITROGEN 5 mg/dL 7-21 L (BEAKER) (test code = 354) CREATININE (BEAKER) 1.01 mg/dL 0.57-1.25 (test code = 358) GLUCOSE RANDOM 110 mg/dL 70-105 H (BEAKER) (test code = 652) CALCIUM (BEAKER) 8.4 mg/dL 8.4-10.2 (test code = 697) EGFR (BEAKER) (test 98 mL/min/1.73 ESTIMA JOANN GFR IS code = 1092) sq m NOT ACCURATE CREATININE CLEARANCE IN PREDICTING GLOMERULAR FILTRATION RATE . ESTIMATED GFR I S NOT APPLICABLE FOR DIALYSIS PATIEN TS. CBC (HEMOGRAM ONLY)2018-07-21 05:05:00 Test Item Value Reference Range Interpretation Comments WHITE BLOOD CELL COUNT (BEAKER) 4.1 K/ L 3.5-10.5 (test code = 775) RED BLOOD CELL COUNT (BEAKER) 3.63 M/ L 4.63-6.08 L (test code = 761) HEMOGLOBIN (BEAKER) (test code = 10.9 GM/DL 13.7-17.5 L 410) HEMATOCRIT (BEAKER) (test code = 33.7 % 40.1-51.0 L 411) MEAN CORPUSCULAR VOLUME (BEAKER) 92.8 fL 79.0-92.2 H (test code = 753) MEAN CORPUSCULAR HEMOGLOBIN 30.0 pg 25.7-32.2 (BEAKER) (test code = 751) MEAN CORPUSCULAR HEMOGLOBIN CONC 32.3 GM/DL 32.3-36.5 (BEAKER) (test code = 752) RED CELL DISTRIBUTION WIDTH 12.9 % 11.6-14.4 (BEAKER) (test code = 412) PLATELET COUNT (BEAKER) (test 180 K/CU MM 150-450 code = 756) MEAN PLATELET VOLUME (BEAKER) 12.2 fL 9.4-12.4 (test code = 754) NUCLEATED RED BLOOD CELLS 0 /100 WBC 0-0 (BEAKER) (test code = 413) RAD, ABDOMEN/KUB, 1 VIEW [id number] 16:20:00Reason for exam:->ileusFINAL REPORT Abdomen one view INDICATION: Ileus COMPARISON: 07/19/2018 IMPRESSION: Two frontal images of the abdomen are provided. NG tube has been removed. Bowel suture lines and a right lower quadrant surgical clip are present. There are multiple dilated small bowel loops. Thereis air and feces in the colon. Distal intestinal obstruction syndrome and partial small bowel obstruction are possibilities. Free air and fluid levels are not well assessed on a supine study. There is left nephrolithiasis. The imaged lower lungs are grossly unchanged. No acute osseous abnormality is evident. Signed: [facility] Verified Date/Time: 07/20/2018 16:20:23 Reading Location: [address] Consult Reading Room [id number] 03:53:00 Test Item Value Reference Range Interpretation Comments MAGNESIUM (BEAKER) (test code = 1.7 mg/dL 1.6-2.6 627) BASIC METABOLIC [id number] 03:53:00 Test Item Value Reference Range Interpretation Comments SODIUM (BEAKER) 139 meq/L 136-145 (test code = 381) POTASSIUM (BEAKER) 3.8 meq/L 3.5-5.1 (test code = 379) CHLORIDE (BEAKER) 107 meq/L 98-107 (test code = 382) CO2 (BEAKER) (test 27 meq/L 22-29 code = 355) BLOOD UREA NITROGEN 6 mg/dL 7-21 L (BEAKER) (test code = 354) CREATININE (BEAKER) 0.99 mg/dL 0.57-1.25 (test code = 358) GLUCOSE RANDOM 114 mg/dL 70-105 H (BEAKER) (test code = 652) CALCIUM (BEAKER) 8.5 mg/dL 8.4-10.2 (test code = 697) EGFR (BEAKER) (test 100 mL/min/1.73 ESTIM ATED GFR IS code = 1092) sq m NOT ACCURATE CREATININE CLEARANCE IN PREDICTING GLOMERULAR FILTRATION RATE . ESTIMATED GFR I S NOT APPLICABLE FOR DIALYSIS PATIEN TS. CBC W/PLT COUNT & AUTO [id number] 03:31:00 Test Item Value Reference Range Interpretation Comments WHITE BLOOD CELL COUNT (BEAKER) 6.3 K/ L 3.5-10.5 (test code = 775) RED BLOOD CELL COUNT (BEAKER) 3.84 M/ L 4.63-6.08 L (test code = 761) HEMOGLOBIN (BEAKER) (test code = 11.6 GM/DL 13.7-17.5 L 410) HEMATOCRIT (BEAKER) (test code = 35.6 % 40.1-51.0 L 411) MEAN CORPUSCULAR VOLUME (BEAKER) 92.7 fL 79.0-92.2 H (test code = 753) MEAN CORPUSCULAR HEMOGLOBIN 30.2 pg 25.7-32.2 (BEAKER) (test code = 751) MEAN CORPUSCULAR HEMOGLOBIN CONC 32.6 GM/DL 32.3-36.5 (BEAKER) (test code = 752) RED CELL DISTRIBUTION WIDTH 12.9 % 11.6-14.4 (BEAKER) (test code = 412) PLATELET COUNT (BEAKER) (test 226 K/CU MM 150-450 code = 756) MEAN PLATELET VOLUME (BEAKER) 11.1 fL 9.4-12.4 (test code = 754) NUCLEATED RED BLOOD CELLS 0 /100 WBC 0-0 (BEAKER) (test code = 413) NEUTROPHILS RELATIVE PERCENT 54 % (BEAKER) (test code = 429) LYMPHOCYTES RELATIVE PERCENT 27 % (BEAKER) (test code = 430) MONOCYTES RELATIVE PERCENT 15 % (BEAKER) (test code = 431) EOSINOPHILS RELATIVE PERCENT 4 % (BEAKER) (test code = 432) BASOPHILS RELATIVE PERCENT 0 % (BEAKER) (test code = 437) NEUTROPHILS ABSOLUTE COUNT 3.42 K/ L 1.78-5.38 (BEAKER) (test code = 670) LYMPHOCYTES ABSOLUTE COUNT 1.69 K/ L 1.32-3.57 (BEAKER) (test code = 414) MONOCYTES ABSOLUTE COUNT (BEAKER) 0.94 K/ L 0.30-0.82 H (test code = 415) EOSINOPHILS ABSOLUTE COUNT 0.26 K/ L 0.04-0.54 (BEAKER) (test code = 416) BASOPHILS ABSOLUTE COUNT (BEAKER) 0.02 K/ L 0.01-0.08 (test code = 417) IMMATURE GRANULOCYTES-RELATIVE 0 % 0-1 PERCENT (BEAKER) (test code = 2801) RAD, ABDOMEN/KUB, 1 VIEW [id number] 16:03:00Reason for exam:->obstruction FINAL REPORT Abdomen one view INDICATION: Obstruction COMPARISON: 07/18/2018 IMPRESSION: Two frontal images of the abdomen are provided. The tip of an NG tube overlies the expected location of the lower esophagus. Advise repositioning or removal. Bowel suture lines in a right lower quadrant surgical clip are present. There are multiple dilated small bowel loops. There is air and feces in the colon. Distal intestinal obstruction syndrome and partial small bowel obstruction are possibilities. Repeat CT can be obtained as clinically warranted. Free air and fluid levels are not wellassessed on a supine study. There is left nephrolithiasis. The imaged lower lungs are grossly unchanged. No acute osseous abnormality is evident. Signed: Ascencion Chase MDReport Verified Date/Time: 07/19/2018 16:03:55 Reading Location: [address] Consult Reading Room [id number] 05:28:00 Test Item Value Reference Range Interpretation Comments MAGNESIUM (BEAKER) (test code = 1.5 mg/dL 1.6-2.6 L 627) BASIC METABOLIC [id number] 05:28:00 Test Item Value Reference Range Interpretation Comments SODIUM (BEAKER) 136 meq/L 136-145 (test code = 381) POTASSIUM (BEAKER) 3.8 meq/L 3.5-5.1 (test code = 379) CHLORIDE (BEAKER) 108 meq/L 98-107 H (test code = 382) CO2 (BEAKER) (test 24 meq/L 22-29 code = 355) BLOOD UREA NITROGEN 8 mg/dL 7-21 (BEAKER) (test code = 354) CREATININE (BEAKER) 0.95 mg/dL 0.57-1.25 (test code = 358) GLUCOSE RANDOM 119 mg/dL 70-105 H (BEAKER) (test code = 652) CALCIUM (BEAKER) 8.5 mg/dL 8.4-10.2 (test code = 697) EGFR (BEAKER) (test 105 mL/min/1.73 ESTIM ATED GFR IS code = 1092) sq m NOT ACCURATE CREATININE CLEARANCE IN PREDICTING GLOMERULAR FILTRATION RATE . ESTIMATED GFR I S NOT APPLICABLE FOR DIALYSIS PATIEN TS. CBC W/PLT COUNT & AUTO [id number] 05:01:00 Test Item Value Reference Range Interpretation Comments WHITE BLOOD CELL COUNT (BEAKER) 6.7 K/ L 3.5-10.5 (test code = 775) RED BLOOD CELL COUNT (BEAKER) 3.82 M/ L 4.63-6.08 L (test code = 761) HEMOGLOBIN (BEAKER) (test code = 11.6 GM/DL 13.7-17.5 L 410) HEMATOCRIT (BEAKER) (test code = 35.6 % 40.1-51.0 L 411) MEAN CORPUSCULAR VOLUME (BEAKER) 93.2 fL 79.0-92.2 H (test code = 753) MEAN CORPUSCULAR HEMOGLOBIN 30.4 pg 25.7-32.2 (BEAKER) (test code = 751) MEAN CORPUSCULAR HEMOGLOBIN CONC 32.6 GM/DL 32.3-36.5 (BEAKER) (test code = 752) RED CELL DISTRIBUTION WIDTH 13.1 % 11.6-14.4 (BEAKER) (test code = 412) PLATELET COUNT (BEAKER) (test 241 K/CU MM 150-450 code = 756) MEAN PLATELET VOLUME (BEAKER) 11.0 fL 9.4-12.4 (test code = 754) NUCLEATED RED BLOOD CELLS 0 /100 WBC 0-0 (BEAKER) (test code = 413) NEUTROPHILS RELATIVE PERCENT 60 % (BEAKER) (test code = 429) LYMPHOCYTES RELATIVE PERCENT 22 % (BEAKER) (test code = 430) MONOCYTES RELATIVE PERCENT 13 % (BEAKER) (test code = 431) EOSINOPHILS RELATIVE PERCENT 4 % (BEAKER) (test code = 432) BASOPHILS RELATIVE PERCENT 0 % (BEAKER) (test code = 437) NEUTROPHILS ABSOLUTE COUNT 4.01 K/ L 1.78-5.38 (BEAKER) (test code = 670) LYMPHOCYTES ABSOLUTE COUNT 1.49 K/ L 1.32-3.57 (BEAKER) (test code = 414) MONOCYTES ABSOLUTE COUNT (BEAKER) 0.88 K/ L 0.30-0.82 H (test code = 415) EOSINOPHILS ABSOLUTE COUNT 0.25 K/ L 0.04-0.54 (BEAKER) (test code = 416) BASOPHILS ABSOLUTE COUNT (BEAKER) 0.02 K/ L 0.01-0.08 (test code = 417) IMMATURE GRANULOCYTES-RELATIVE 0 % 0-1 PERCENT (BEAKER) (test code = 2801) RAD, ABDOMEN/KUB, 1 VIEW [id number] 08:45:00Reason for exam:->eval bowel obstructionFINAL REPORT Technique: Supine views of the abdomen dated 07/18/2018. HISTORY: Bowel obstruction. COMPARISON: CT scan of the abdomen and pelvis dated 07/17/2018 IMPRESSION:Enteric tube is seen with the tip in the region of the gastric fundus. There is stool seen throughout the colon. Air-filled loops of small and large bowel remain. Stool is seen throughout the colon. No free intraperitoneal air. Surgical clip and sutures are seen in the right lower quadrant. Signed: Sae [place] Verified Date/Time: 07/18/2018 08:45:55 Reading Location: [facility] Radiology Reading Room MAGNESIUM 2018-07-18 07:03:00 Test Item Value Reference Range Interpretation Comments MAGNESIUM (BEAKER) (test code = 1.5 mg/dL 1.6-2.6 L 627) BASIC METABOLIC [id number] 07:03:00 Test Item Value Reference Range Interpretation Comments SODIUM (BEAKER) 136 meq/L 136-145 (test code = 381) POTASSIUM (BEAKER) 3.7 meq/L 3.5-5.1 (test code = 379) CHLORIDE (BEAKER) 108 meq/L 98-107 H (test code = 382) CO2 (BEAKER) (test 22 meq/L 22-29 code = 355) BLOOD UREA NITROGEN 11 mg/dL 7-21 (BEAKER) (test code = 354) CREATININE (BEAKER) 0.97 mg/dL 0.57-1.25 (test code = 358) GLUCOSE RANDOM 125 mg/dL 70-105 H (BEAKER) (test code = 652) CALCIUM (BEAKER) 8.5 mg/dL 8.4-10.2 (test code = 697) EGFR (BEAKER) (test 103 mL/min/1.73 ESTIM ATED GFR IS code = 1092) sq m NOT ACCURATE CREATININE CLEARANCE IN PREDICTING GLOMERULAR FILTRATION RATE . ESTIMATED GFR I S NOT APPLICABLE FOR DIALYSIS PATIEN TS. CBC W/PLT COUNT & AUTO [id number] 06:37:00 Test Item Value Reference Range Interpretation Comments WHITE BLOOD CELL COUNT (BEAKER) 8.2 K/ L 3.5-10.5 (test code = 775) RED BLOOD CELL COUNT (BEAKER) 3.88 M/ L 4.63-6.08 L (test code = 761) HEMOGLOBIN (BEAKER) (test code = 11.8 GM/DL 13.7-17.5 L 410) HEMATOCRIT (BEAKER) (test code = 36.5 % 40.1-51.0 L 411) MEAN CORPUSCULAR VOLUME (BEAKER) 94.1 fL 79.0-92.2 H (test code = 753) MEAN CORPUSCULAR HEMOGLOBIN 30.4 pg 25.7-32.2 (BEAKER) (test code = 751) MEAN CORPUSCULAR HEMOGLOBIN CONC 32.3 GM/DL 32.3-36.5 (BEAKER) (test code = 752) RED CELL DISTRIBUTION WIDTH 13.1 % 11.6-14.4 (BEAKER) (test code = 412) PLATELET COUNT (BEAKER) (test 212 K/CU MM 150-450 code = 756) MEAN PLATELET VOLUME (BEAKER) 12.5 fL 9.4-12.4 H (test code = 754) NUCLEATED RED BLOOD CELLS 0 /100 WBC 0-0 (BEAKER) (test code = 413) NEUTROPHILS RELATIVE PERCENT 65 % (BEAKER) (test code = 429) LYMPHOCYTES RELATIVE PERCENT 19 % (BEAKER) (test code = 430) MONOCYTES RELATIVE PERCENT 13 % (BEAKER) (test code = 431) EOSINOPHILS RELATIVE PERCENT 2 % (BEAKER) (test code = 432) BASOPHILS RELATIVE PERCENT 0 % (BEAKER) (test code = 437) NEUTROPHILS ABSOLUTE COUNT 5.39 K/ L 1.78-5.38 H (BEAKER) (test code = 670) LYMPHOCYTES ABSOLUTE COUNT 1.57 K/ L 1.32-3.57 (BEAKER) (test code = 414) MONOCYTES ABSOLUTE COUNT (BEAKER) 1.07 K/ L 0.30-0.82 H (test code = 415) EOSINOPHILS ABSOLUTE COUNT 0.17 K/ L 0.04-0.54 (BEAKER) (test code = 416) BASOPHILS ABSOLUTE COUNT (BEAKER) 0.02 K/ L 0.01-0.08 (test code = 417) IMMATURE GRANULOCYTES-RELATIVE 0 % 0-1 PERCENT (BEAKER) (test code = 2801) URINALYSIS W/ REFLEX URINE [id number] 22:24:00 Test Item Value Reference Range Interpretation Comments COLOR (BEAKER) (test code = 470) Yellow CLARITY (BEAKER) (test code = 469) Clear SPECIFIC GRAVITY UA (BEAKER) (test 1.050 1.001-1.035 H code = 468) PH UA (BEAKER) (test code = 467) 5.5 5.0-8.0 PROTEIN UA (BEAKER) (test code = Negative Negative 464) GLUCOSE UA (BEAKER) (test code = Negative Negative 365) KETONES UA (BEAKER) (test code = Negative Negative 371) BILIRUBIN UA (BEAKER) (test code = Negative Negative 462) BLOOD UA (BEAKER) (test code = Negative Negative 461) NITRITE UA (BEAKER) (test code = Negative Negative 465) LEUKOCYTE ESTERASE UA (BEAKER) Negative Negative (test code = 466) UROBILINOGEN UA (BEAKER) (test 0.2 mg/dL 0.2-1.0 code = 463) RBC UA (BEAKER) (test code = 519) < /HPF WBC UA (BEAKER) (test code = 520) < /HPF MUCUS (BEAKER) (test code = 1574) Occasional SOURCE(BEAKER) (test code = 2795) CT, [id number] 21:37:00Reason for exam:->ABDOMINAL PAINReason for exam:->CYSTIC FIBROSISWhat is the patient's sedation requirement?->No SedationFINAL REPORT CT, ABDOMEN \\T\\ PELVIS, WITH IV CONTRAST INDICATION: Abdominal pain, unspecifiedABDOMINAL PAINCYSTIC FIBROSIS COMPARISON: CT abdomen and pelvis dated 06/29/2018. TECHNIQUE:Post contrast abdomen and pelvis CT. Coronal and sagittal reformatted images obtained. DOSE REDUCTION: Dose modulation, iterative reconstruction, and/or weight-based adjustment of the mA/kV was utilized to reduce the radiation dose to as low as reasonably achievable. FINDINGS: Lower thorax: Unchanged tree-in-bud opacities within the right lower and middle lobe lobes likely inflammatory related to c ystic fibrosis and mucous plugging. No pleural effusion. The heart is normal in size. No pericardialeffusion. Liver: No parenchymal abnormality.Gallbladder and biliary tree: No ductal dilation or stones.Pancreas: Pancreas is atrophic with fatty infiltration.Spleen: No acute findingsAdrenal Glands: Noacute findings.Kidneys and ureters: Multiple left punctate nonobstructing nephrolithiasis. No hydronephrosis or hydroureter. No contour deforming renal lesions.Bladder and reproductive organs: Relatively decompressed bladder otherwise unremarkable. Prostate gland is unremarkable. Stomach and Duodenum:The stomach is diffusely distended. Duodenum is grossly unremarkable.Small and large intestine: Unchanged distention of multiple loops of small bowel throughout the abdomen through the terminal ileus with no clear transition point identified. While there is a prominent loop of small bowel in the central pelvis with peripheral gas layering nondependently this is favored to be intraluminal rather than in the bowel wall. No portal venous gas. Fecalization of material within the small bowel suggesting delayed transit. The large bowel is distended with a large stool burden proximally with distal decompression of the loops of large bowel in the pelvis. Postsurgical changes of the right colon with surgical chain sutures in the region of the cecum..Appendix: Postsurgical changes of an appendectomy. Majorvascular structures: Normal aortic caliber.Peritoneum and retroperitoneum: No free air, fluid or adenopathy. Skeleton: No acute bony abnormality.Additional findings: None. IMPRESSION: Again seen are multiple distended loops of small and large bowel throughout the abdomen with decompressed distal largebowel (sigmoid colon and rectum) findings are concerning for distal intestinal obstruction . Prominent loop of small bowel in the central pelvis with peripheral gas layering non dependently this is favored to be intraluminal rather than in the bowel wall (pneumatosis intestinalis). However recommend continued close attention on follow-up imaging. No portal venous gas. Fatty atrophy of the pancreas isconsistent with history of cystic fibrosis. Tree-in-bud opacities in the right lower and middle lobeare favored to represent sequela of mucus impaction related to history of cystic fibrosis. Nonobstructing left nephrolithiasis. Signed: Debbie Dingeport Verified Date/Time: 07/17/2018 21:37:48 Reading Location: [address] Transitional Reading Room (CELLAVISION MANUAL DIFF)2018-07-17 20:15:00 Test Item Value Reference Range Interpretation Comments NEUTROPHILS - REL 72 % (CELLAVISION)(BEAKER) (test code = 2816) LYMPHOCYTES - REL 11 % (CELLAVISION)(BEAKER) (test code = 2817) MONOCYTES - REL 8 % (CELLAVISION)(BEAKER) (test code = 2818) BANDS - REL (CELLAVISION)(BEAKER) 9 % 0-10 (test code = 2826) NEUTROPHILS - ABS 11.95 K/ul 1.78-5.38 H (CELLAVISION)(BEAKER) (test code = 2830) LYMPHOCYTES - ABS 1.83 K/ul 1.32-3.57 (CELLAVISION)(BEAKER) (test code = 2831) MONOCYTES - ABS 1.33 K/uL 0.30-0.82 H (CELLAVISION)(BEAKER) (test code = 2832) BANDS - ABS (CELLAVISION)(BEAKER) 1.49 K/uL 0.00-0.80 H (test code = 2840) TOTAL COUNTED (BEAKER) (test code 100 = 1351) WBC MORPHOLOGY (BEAKER) (test code Normal = 487) GIANT PLATELETS (BEAKER) (test Present code = 313) POIKILOCYTES (BEAKER) (test code = 1+ few 966) TARGET CELLS (BEAKER) (test code = 1+ few 480) ELLIPTOCYTES (BEAKER) (test code = 1+ few 962) ARTIFACT (CELLAVISION)(BEAKER) Present (test code = 3432) PLATELET CONCENTRATION Adequate (CELLAVISION)(BEAKER) (test code = 3438) Received comment: User comments: Slide comments:[id number] 20:05:00 Test Item Value Reference Range Interpretation Comments LIPASE (BEAKER) (test code = 749) < U/L 8-78 L COMPREHENSIVE METABOLIC [id number] 20:03:00 Test Item Value Reference Range Interpretation Comments TOTAL PROTEIN 7.6 gm/dL 6.0-8.3 (BEAKER) (test code = 770) ALBUMIN (BEAKER) 4.2 g/dL 3.5-5.0 (test code = 1145) ALKALINE PHOSPHATASE 101 U/L 40-150 (BEAKER) (test code = 346) BILIRUBIN TOTAL 1.1 mg/dL 0.2-1.2 (BEAKER) (test code = 377) SODIUM (BEAKER) (test 138 meq/L 136-145 code = 381) POTASSIUM (BEAKER) 3.9 meq/L 3.5-5.1 (test code = 379) CHLORIDE (BEAKER) 103 meq/L 98-107 (test code = 382) CO2 (BEAKER) (test 25 meq/L 22-29 code = 355) BLOOD UREA NITROGEN 13 mg/dL 7-21 (BEAKER) (test code = 354) CREATININE (BEAKER) 1.18 mg/dL 0.57-1.25 (test code = 358) GLUCOSE RANDOM 141 mg/dL 70-105 H (BEAKER) (test code = 652) CALCIUM (BEAKER) 9.6 mg/dL 8.4-10.2 (test code = 697) AST (SGOT) (BEAKER) 20 U/L 5-34 (test code = 353) ALT (SGPT) (BEAKER) 29 U/L 6-55 (test code = 347) EGFR (BEAKER) (test 82 mL/min/1.73 ESTIMA JOANN GFR IS code = 1092) sq m NOT ACCURATE CREATININE CLEARANCE IN PREDICTING GLOMERULAR FILTRATION RATE . ESTIMATED GFR I S NOT APPLICABLE FOR DIALYSIS PATIEN TS. CBC W/PLT COUNT & AUTO [id number] 19:57:00 Test Item Value Reference Range Interpretation Comments WHITE BLOOD CELL COUNT (BEAKER) 16.6 K/ L 3.5-10.5 H (test code = 775) RED BLOOD CELL COUNT (BEAKER) 4.65 M/ L 4.63-6.08 (test code = 761) HEMOGLOBIN (BEAKER) (test code = 14.1 GM/DL 13.7-17.5 410) HEMATOCRIT (BEAKER) (test code = 43.3 % 40.1-51.0 411) MEAN CORPUSCULAR VOLUME (BEAKER) 93.1 fL 79.0-92.2 H (test code = 753) MEAN CORPUSCULAR HEMOGLOBIN 30.3 pg 25.7-32.2 (BEAKER) (test code = 751) MEAN CORPUSCULAR HEMOGLOBIN CONC 32.6 GM/DL 32.3-36.5 (BEAKER) (test code = 752) RED CELL DISTRIBUTION WIDTH 12.9 % 11.6-14.4 (BEAKER) (test code = 412) PLATELET COUNT (BEAKER) (test 233 K/CU MM 150-450 code = 756) MEAN PLATELET VOLUME (BEAKER) 11.4 fL 9.4-12.4 (test code = 754) NUCLEATED RED BLOOD CELLS 0 /100 WBC 0-0 (BEAKER) (test code = 413) NEUTROPHILS RELATIVE PERCENT 80 % (BEAKER) (test code = 429) LYMPHOCYTES RELATIVE PERCENT 9 % (BEAKER) (test code = 430) MONOCYTES RELATIVE PERCENT 9 % (BEAKER) (test code = 431) EOSINOPHILS RELATIVE PERCENT 1 % (BEAKER) (test code = 432) BASOPHILS RELATIVE PERCENT 0 % (BEAKER) (test code = 437) NEUTROPHILS ABSOLUTE COUNT 13.23 K/ L 1.78-5.38 H (BEAKER) (test code = 670) LYMPHOCYTES ABSOLUTE COUNT 1.49 K/ L 1.32-3.57 (BEAKER) (test code = 414) MONOCYTES ABSOLUTE COUNT (BEAKER) 1.56 K/ L 0.30-0.82 H (test code = 415) EOSINOPHILS ABSOLUTE COUNT 0.15 K/ L 0.04-0.54 (BEAKER) (test code = 416) BASOPHILS ABSOLUTE COUNT (BEAKER) 0.05 K/ L 0.01-0.08 (test code = 417) IMMATURE GRANULOCYTES-RELATIVE 0 % 0-1 PERCENT (BEAKER) (test code = 2801) [id number] 19:53:00 Test Item Value Reference Range Interpretation Comments PROTIME (BEAKER) (test code = 16.4 seconds 11.7-14.7 H 759) INR (BEAKER) (test code = 370) 1.3 <=5.9 PARTIAL THROMBOPLASTIN TIME 29.2 seconds 22.5-36.0 (BEAKER) (test code = 760) RECOMMENDED COUMADIN/WARFARIN INR THERAPY RANGESSTANDARD DOSE: 2.0 - 3.0 Includes: PROPHYLAXIS for venous thrombosis, systemic embolization; TREATMENT for venous thrombosis and/or pulmonary embolus.HIGH RISK: Target INR is 2.5-3.5 for patients with mechanical heart valves.[id number] 05:38:00 Test Item Value Reference Range Interpretation Comments MAGNESIUM (BEAKER) (test code = 1.8 mg/dL 1.6-2.6 627) BASIC METABOLIC [id number] 05:38:00 Test Item Value Reference Range Interpretation Comments SODIUM (BEAKER) 137 meq/L 136-145 (test code = 381) POTASSIUM (BEAKER) 3.9 meq/L 3.5-5.1 (test code = 379) CHLORIDE (BEAKER) 110 meq/L 98-107 H (test code = 382) CO2 (BEAKER) (test 23 meq/L 22-29 code = 355) BLOOD UREA NITROGEN 10 mg/dL 7-21 (BEAKER) (test code = 354) CREATININE (BEAKER) 1.00 mg/dL 0.57-1.25 (test code = 358) GLUCOSE RANDOM 94 mg/dL 70-105 (BEAKER) (test code = 652) CALCIUM (BEAKER) 8.6 mg/dL 8.4-10.2 (test code = 697) EGFR (BEAKER) (test 99 mL/min/1.73 ESTIMA JOANN GFR IS code = 1092) sq m NOT ACCURATE CREATININE CLEARANCE IN PREDICTING GLOMERULAR FILTRATION RATE . ESTIMATED GFR I S NOT APPLICABLE FOR DIALYSIS PATIEN TS. [id number] 09:47:00 Test Item Value Reference Range Interpretation Comments MAGNESIUM (BEAKER) (test code = 1.3 mg/dL 1.6-2.6 L 627) BASIC METABOLIC [id number] 09:47:00 Test Item Value Reference Range Interpretation Comments SODIUM (BEAKER) 135 meq/L 136-145 L (test code = 381) POTASSIUM (BEAKER) 4.0 meq/L 3.5-5.1 (test code = 379) CHLORIDE (BEAKER) 109 meq/L 98-107 H (test code = 382) CO2 (BEAKER) (test 18 meq/L 22-29 L code = 355) BLOOD UREA NITROGEN 12 mg/dL 7-21 (BEAKER) (test code = 354) CREATININE (BEAKER) 0.92 mg/dL 0.57-1.25 (test code = 358) GLUCOSE RANDOM 73 mg/dL 70-105 (BEAKER) (test code = 652) CALCIUM (BEAKER) 8.4 mg/dL 8.4-10.2 (test code = 697) EGFR (BEAKER) (test 109 mL/min/1.73 ESTIM ATED GFR IS code = 1092) sq m NOT ACCURATE CREATININE CLEARANCE IN PREDICTING GLOMERULAR FILTRATION RATE . ESTIMATED GFR I S NOT APPLICABLE FOR DIALYSIS PATIEN TS. HEMOGLOBIN [id number] 11:59:00 Test Item Value Reference Range Interpretation Comments HEMOGLOBIN A1C (BEAKER) (test code = 6.1 % 4.3-6.1 368) [id number] 05:49:00 Test Item Value Reference Range Interpretation Comments MAGNESIUM (BEAKER) (test code = 1.5 mg/dL 1.6-2.6 L 627) BASIC METABOLIC [id number] 05:49:00 Test Item Value Reference Range Interpretation Comments SODIUM (BEAKER) 137 meq/L 136-145 (test code = 381) POTASSIUM (BEAKER) 3.9 meq/L 3.5-5.1 (test code = 379) CHLORIDE (BEAKER) 110 meq/L 98-107 H (test code = 382) CO2 (BEAKER) (test 23 meq/L 22-29 code = 355) BLOOD UREA NITROGEN 13 mg/dL 7-21 (BEAKER) (test code = 354) CREATININE (BEAKER) 1.03 mg/dL 0.57-1.25 (test code = 358) GLUCOSE RANDOM 91 mg/dL 70-105 (BEAKER) (test code = 652) CALCIUM (BEAKER) 8.6 mg/dL 8.4-10.2 (test code = 697) EGFR (BEAKER) (test 96 mL/min/1.73 ESTIMA JOANN GFR IS code = 1092) sq m NOT ACCURATE CREATININE CLEARANCE IN PREDICTING GLOMERULAR FILTRATION RATE . ESTIMATED GFR I S NOT APPLICABLE FOR DIALYSIS PATIEN TS. CBC W/PLT COUNT & AUTO [id number] 05:12:00 Test Item Value Reference Range Interpretation Comments WHITE BLOOD CELL COUNT (BEAKER) 6.6 K/ L 3.5-10.5 (test code = 775) RED BLOOD CELL COUNT (BEAKER) 4.05 M/ L 4.63-6.08 L (test code = 761) HEMOGLOBIN (BEAKER) (test code = 12.3 GM/DL 13.7-17.5 L 410) HEMATOCRIT (BEAKER) (test code = 38.2 % 40.1-51.0 L 411) MEAN CORPUSCULAR VOLUME (BEAKER) 94.3 fL 79.0-92.2 H (test code = 753) MEAN CORPUSCULAR HEMOGLOBIN 30.4 pg 25.7-32.2 (BEAKER) (test code = 751) MEAN CORPUSCULAR HEMOGLOBIN CONC 32.2 GM/DL 32.3-36.5 L (BEAKER) (test code = 752) RED CELL DISTRIBUTION WIDTH 12.8 % 11.6-14.4 (BEAKER) (test code = 412) PLATELET COUNT (BEAKER) (test 183 K/CU MM 150-450 code = 756) MEAN PLATELET VOLUME (BEAKER) 11.7 fL 9.4-12.4 (test code = 754) NUCLEATED RED BLOOD CELLS 0 /100 WBC 0-0 (BEAKER) (test code = 413) NEUTROPHILS RELATIVE PERCENT 52 % (BEAKER) (test code = 429) LYMPHOCYTES RELATIVE PERCENT 30 % (BEAKER) (test code = 430) MONOCYTES RELATIVE PERCENT 13 % (BEAKER) (test code = 431) EOSINOPHILS RELATIVE PERCENT 4 % (BEAKER) (test code = 432) BASOPHILS RELATIVE PERCENT 1 % (BEAKER) (test code = 437) NEUTROPHILS ABSOLUTE COUNT 3.44 K/ L 1.78-5.38 (BEAKER) (test code = 670) LYMPHOCYTES ABSOLUTE COUNT 1.99 K/ L 1.32-3.57 (BEAKER) (test code = 414) MONOCYTES ABSOLUTE COUNT (BEAKER) 0.84 K/ L 0.30-0.82 H (test code = 415) EOSINOPHILS ABSOLUTE COUNT 0.27 K/ L 0.04-0.54 (BEAKER) (test code = 416) BASOPHILS ABSOLUTE COUNT (BEAKER) 0.03 K/ L 0.01-0.08 (test code = 417) IMMATURE GRANULOCYTES-RELATIVE 0 % 0-1 PERCENT (BEAKER) (test code = 2801) CT, [id number] 19:56:00FINAL REPORT CT of the abdomen and pelvis, with contrast, 06/29/2018. History: Abdominal pain, vomiting, cystic fibrosis Comparison: None available. Technique: Multidetector CT scanning of the abdomen and pelvis was performed from the level of the lung bases to the inferior pubic ramus, with intravenous administration of non-ionic contrast and with oral contrast. This examination was performed in accordance with a departmental dose optimization program which includes automated exposure control, adjustment of the mA and/or kV according to patient size, and use of iterative reconstruction techniques. Discussion: Nodular opacities in the lung bases consistent with history of cystic fibrosis. Pancreatic atrophy. Solid abdominal organs otherwise unremarkable. Gallbladder unremarkable. No biliary ductal dilatation. Abdominal aorta normal caliber. Portal vein patent. The stomach andmultiple loops of small bowel are distended. Portions of the colon also appear distended. There is stool present throughout the colon and some fecalization in the small bowel. No definitive transition point is identified however. Anastomotic sutures present near the level of the cecum. Urinary bladderunremarkable. No adenopathy. No ascites. No worrisome skeletal findings. IMPRESSION:Distention of multiple loops of large and small bowel without definitive transition point, which may reflect distal intestinal obstruction syndrome. Small bowel obstruction is not entirely excluded however. Signed: Angel Doran MDReport Verified Date/Time: 06/29/2018 19:56:22 Reading Location: [facility] B1 [id number] Consult Reading Room [id number] 17:45:00 Test Item Value Reference Range Interpretation Comments LIPASE (BEAKER) (test code = 749) < U/L 8-78 L COMPREHENSIVE METABOLIC [id number] 17:45:00 Test Item Value Reference Range Interpretation Comments TOTAL PROTEIN 6.9 gm/dL 6.0-8.3 (BEAKER) (test code = 770) ALBUMIN (BEAKER) 4.0 g/dL 3.5-5.0 (test code = 1145) ALKALINE PHOSPHATASE 93 U/L 40-150 (BEAKER) (test code = 346) BILIRUBIN TOTAL 1.2 mg/dL 0.2-1.2 (BEAKER) (test code = 377) SODIUM (BEAKER) 139 meq/L 136-145 (test code = 381) POTASSIUM (BEAKER) 3.5 meq/L 3.5-5.1 (test code = 379) CHLORIDE (BEAKER) 108 meq/L 98-107 H (test code = 382) CO2 (BEAKER) (test 22 meq/L 22-29 code = 355) BLOOD UREA NITROGEN 15 mg/dL 7-21 (BEAKER) (test code = 354) CREATININE (BEAKER) 1.14 mg/dL 0.57-1.25 (test code = 358) GLUCOSE RANDOM 129 mg/dL 70-105 H (BEAKER) (test code = 652) CALCIUM (BEAKER) 9.3 mg/dL 8.4-10.2 (test code = 697) AST (SGOT) (BEAKER) 16 U/L 5-34 (test code = 353) ALT (SGPT) (BEAKER) 21 U/L 6-55 (test code = 347) EGFR (BEAKER) (test mL/min/1.73 INSUFFIC IENT code = 1092) sq m CLINICAL DATA T O CALCULATE ESTIM ATED GFR. CBC W/PLT COUNT & AUTO [id number] 17:13:00 Test Item Value Reference Range Interpretation Comments WHITE BLOOD CELL COUNT (BEAKER) 8.4 K/ L 3.5-10.5 (test code = 775) RED BLOOD CELL COUNT (BEAKER) 4.49 M/ L 4.63-6.08 L (test code = 761) HEMOGLOBIN (BEAKER) (test code = 13.9 GM/DL 13.7-17.5 410) HEMATOCRIT (BEAKER) (test code = 42.3 % 40.1-51.0 411) MEAN CORPUSCULAR VOLUME (BEAKER) 94.2 fL 79.0-92.2 H (test code = 753) MEAN CORPUSCULAR HEMOGLOBIN 31.0 pg 25.7-32.2 (BEAKER) (test code = 751) MEAN CORPUSCULAR HEMOGLOBIN CONC 32.9 GM/DL 32.3-36.5 (BEAKER) (test code = 752) RED CELL DISTRIBUTION WIDTH 12.8 % 11.6-14.4 (BEAKER) (test code = 412) PLATELET COUNT (BEAKER) (test 204 K/CU MM 150-450 code = 756) MEAN PLATELET VOLUME (BEAKER) 11.1 fL 9.4-12.4 (test code = 754) NUCLEATED RED BLOOD CELLS 0 /100 WBC 0-0 (BEAKER) (test code = 413) NEUTROPHILS RELATIVE PERCENT 67 % (BEAKER) (test code = 429) LYMPHOCYTES RELATIVE PERCENT 18 % (BEAKER) (test code = 430) MONOCYTES RELATIVE PERCENT 11 % (BEAKER) (test code = 431) EOSINOPHILS RELATIVE PERCENT 3 % (BEAKER) (test code = 432) BASOPHILS RELATIVE PERCENT 0 % (BEAKER) (test code = 437) NEUTROPHILS ABSOLUTE COUNT 5.68 K/ L 1.78-5.38 H (BEAKER) (test code = 670) LYMPHOCYTES ABSOLUTE COUNT 1.55 K/ L 1.32-3.57 (BEAKER) (test code = 414) MONOCYTES ABSOLUTE COUNT (BEAKER) 0.90 K/ L 0.30-0.82 H (test code = 415) EOSINOPHILS ABSOLUTE COUNT 0.26 K/ L 0.04-0.54 (BEAKER) (test code = 416) BASOPHILS ABSOLUTE COUNT (BEAKER) 0.03 K/ L 0.01-0.08 (test code = 417) IMMATURE GRANULOCYTES-RELATIVE 0 % 0-1 PERCENT (BEAKER) (test code = 2801)
[2022-09-23] MEDS ORDERED: ONDANSETRON 4 MG/2 ML VIAL ONE ×2 (21:35→21:52)
[2022-09-23] MEDS ORDERED: HYDROMORPHONE HCL 1 MG/ML INJ ONE ×2 (21:35→21:52)
[2022-09-23] MEDS ORDERED: FAMOTIDINE 20 MG/2 ML VIAL IV ONE ×2 (21:35→21:52)
[2022-09-23] MEDS ORDERED: ASPIRIN 81 MG CHEWABLE TABLET ONE (21:52)
[2022-09-23] MEDS ORDERED: METRONIDAZOLE 500mg IVPB 500 MG/100 ML BAG IV ONE (22:22)
[2022-09-23] MEDS ORDERED: CIPROFLOXACIN 400mg IV 400 MG/200 ML BAG IV ONE (22:22)
[2022-09-23 22:41] LABS: Hematocrit 41.1 % (39.6-49.0); Lymphocytes % 35.1 % (15.3-44.8); MCV 92.5 fL (80-100); MPV 9.6 fL (7.6-11.3); RBC Red Blood Cell Count 4.44 M/uL (4.33-5.43)
[2022-09-23 22:42] LABS: Protime INR 1.2
--- NOTE | 2022-09-23 22:52 | RAD REPORT ---
EXAM DESCRIPTION: RAD - Chest Single View - 09/23/2022 10:38 pm CLINICAL HISTORY: ABDOMINAL DISTENTION COMPARISON: No comparisons FINDINGS: Lines: None. Lungs: No evidence of edema or pneumonia. Pleural: No significant pleural effusions or pneumothorax. Cardiac: The heart size is within normal limits. Mediastinum: Within normal limits. Bones: No acute fractures. Other: None IMPRESSION: No acute cardiopulmonary disease.
[2022-09-23 22:55] LABS: Albumin 3.7 g/dL (3.4-5.0); Bilirubin Direct 0.3 mg/dL (0-0.2); Bilirubin Total 1.1 mg/dL (0.2-1.0); Magnesium 1.9 mg/dL (1.6-2.4); Potassium 4.4 mmol/L (3.5-5.1); Protein, Total 7.4 g/dL (6.4-8.2); Troponin High Sensitivity 5.1 pg/mL (<58.9)
[2022-09-23 22:56] LABS: SARS-CoV-2 Antigen Rapid Res Negative (Negative)
--- NOTE | 2022-09-23 23:17 | RAD REPORT ---
EXAM DESCRIPTION: CTAbdomen Pelvis W Contrast - 09/23/2022 11:02 pm CLINICAL HISTORY: Abdominal pain, post-op COMPARISON: No comparisons TECHNIQUE: CT of the abdomen and pelvis was performed with IV contrast. All CT scans are performed using dose optimization technique as appropriate and may include automated exposure control or mA/KV adjustment according to patient size. FINDINGS: Lower chest: No acute abnormality. Liver: Hepatic steatosis Biliary: No biliary ductal dilatation. Stomach: No significant focal abnormality. Duodenum: No significant focal abnormality. Pancreas: Atrophy of the pancreas Spleen: No significant abnormality. Adrenal: No suspicious lesions. Kidney/ureter: No hydronephrosis. 3 mm stone left kidney Retroperitoneum: No retroperitoneal adenopathy. Vascular: No aneurysm. Bowel: Large colonic stool burden.. Peritoneum: No ascites or free air. Bladder: Grossly unremarkable. Reproductive: Mild prostatomegaly. Bones: No acute fracture. Other: n/a IMPRESSION: Diffusely distended colon probably a colonic ileus. No bowel obstruction identified.
--- NOTE | 2022-09-23 23:25 | EDPHYS ---
Physician Documentation [facility] Name: Matt Robles Age: 46 yrs Sex: Male : 1975 Arrival Date: 09/23/2022 Time: 21:14 Bed 25 Private MD: ED Physician Chris Beltrán HPI: 09/23 21:58 This 46 yrs old Black Male presents to ER via Ambulatory with complaints of Abdominal lilia Pain. 21:58 The patient presents with abdominal pain abdominal distention in the upper abdomen, in lilia the lower abdomen. Onset: The symptoms/episode began/occurred 2 day(s) ago. The symptoms do not radiate. Associated signs and symptoms: Pertinent positives: nausea and vomiting. The symptoms are described as crampy. Modifying factors: The symptoms are alleviated by nothing, the symptoms are aggravated by nothing. Severity of pain: At its worst the pain was moderate in the emergency department the pain is unchanged. The patient has experienced similar episodes in the past, multiple times. Historical: - Allergies: 21:22 Toradol; kd3 - Immunization history:: Adult Immunizations up to date. - Social history:: Smoking status: Patient denies any tobacco usage or history of. - Family history:: not pertinent. ROS: 21:58 Constitutional: Negative for fever, chills, and weight loss, Eyes: Negative for injury, lilia pain, redness, and discharge, ENT: Negative for injury, pain, and discharge, Neck: Negative for injury, pain, and swelling, Cardiovascular: Negative for chest pain, palpitations, and edema, Respiratory: Negative for shortness of breath, cough, wheezing, and pleuritic chest pain, Back: Negative for injury and pain, : Negative for injury, bleeding, discharge, and swelling, MS/Extremity: Negative for injury and deformity, Skin: Negative for injury, rash, and discoloration, Neuro: Negative for headache, weakness, numbness, tingling, and seizure, Psych: Negative for depression, anxiety, suicide ideation, homicidal ideation, and hallucinations, Allergy/Immunology: Negative for hives, rash, and allergies, Endocrine: Negative for neck swelling, polydipsia, polyuria, polyphagia, and marked weight changes, Hematologic/Lymphatic: Negative for swollen nodes, abnormal bleeding, and unusual bruising. 21:58 Abdomen/GI: Positive for abdominal pain, nausea and vomiting, of the right upper quadrant, left upper quadrant, right lower quadrant and left lower quadrant. Exam: 21:58 Constitutional: This is a well developed, well nourished patient who is awake, alert, lilia and in no acute distress. Head/Face: Normocephalic, atraumatic. Eyes: Pupils equal round and reactive to light, extra-ocular motions intact. Lids and lashes normal. Conjunctiva and sclera are non-icteric and not injected. Cornea within normal limits. Periorbital areas with no swelling, redness, or edema. ENT: Nares patent. No nasal discharge, no septal abnormalities noted. Tympanic membranes are normal and external auditory canals are clear. Oropharynx with no redness, swelling, or masses, exudates, or evidence of obstruction, uvula midline. Mucous membranes moist. Neck: Trachea midline, no thyromegaly or masses palpated, and no cervical lymphadenopathy. Supple, full range of motion without nuchal rigidity, or vertebral point tenderness. No Meningismus. Chest/axilla: Normal chest wall appearance and motion. Nontender with no deformity. No lesions are appreciated. Cardiovascular: Regular rate and rhythm with a normal S1 and S2. No gallops, murmurs, or rubs. Normal PMI, no JVD. No pulse deficits. Respiratory: Lungs have equal breath sounds bilaterally, clear to auscultation and percussion. No rales, rhonchi or wheezes noted. No increased work of breathing, no retractions or nasal flaring. Back: No spinal tenderness. No costovertebral tenderness. Full range of motion. Male : Normal genitalia with no discharge or lesions. Skin: Warm, dry with normal turgor. Normal color with no rashes, no lesions, and no evidence of cellulitis. MS/ Extremity: Pulses equal, no cyanosis. Neurovascular intact. Full, normal range of motion. Neuro: Awake and alert, GCS 15, oriented to person, place, time, and situation. Cranial nerves II-XII grossly intact. Motor strength 5/5 in all extremities. Sensory grossly intact. Cerebellar exam normal. Normal gait. Psych: Awake, alert, with orientation to person, place and time. Behavior, mood, and affect are within normal limits. 21:58 ECG was reviewed by the Attending Physician. 21:58 Abdomen/GI: Inspection: distension, that is moderate, Bowel sounds: diminished, absent, in all quadrants, Palpation: mild abdominal tenderness, in the suprapubic area, right upper quadrant, left upper quadrant, right lower quadrant and left lower quadrant, Liver: no appreciated palpable abnormalities, Hernia: not appreciated. Vital Signs: 21:18 Pulse 79; Resp 17; Temp 97.7(TE); Pulse Ox 100% ; Weight 70.31 kg; Height 6 ft. 1 in. kd3 (185.42 cm); Pain 10/10; 21:23 BP 109 / 90; kd3 22:36 BP 121 / 87; Pulse 72; Resp 19; Pulse Ox 99% on R/A; em6 23:42 BP 127 / 94; Pulse 60; Resp 14; Pulse Ox 100% on R/A; em6 09/24 01:00 BP 117 / 79; Pulse 59; Resp 16 S; Temp 98(O); Pulse Ox 99% on R/A; Pain 10/10; bb 09/23 21:18 Body Mass Index 20.45 (70.31 kg, 185.42 cm) kd3 MDM: 09/23 21:21 Patient medically screened. lilia 22:03 Differential diagnosis: bowel obstruction, Cholelithiasis, diverticulitis, non-specific lilia abd pain, pancreatitis, Peptic Ulcer Disease. Data reviewed: vital signs, nurses notes, EMS record, lab test result(s), EKG, radiologic studies, CT scan, plain films. 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 Test interpretation: by ED physician or midlevel provider: ECG, plain radiologic studies. Counseling: I had a detailed discussion with the patient and/or guardian regarding: the historical points, exam findings, and any diagnostic results supporting the discharge/admit diagnosis, lab results, radiology results. 09/23 21:25 Order name: Basic Metabolic Panel; Complete Time: 23:21 lilia 09/23 21:25 Order name: CBC with Diff; Complete Time: 23:21 lilia 09/23 21:25 Order name: LFT's; Complete Time: 23:21 lilia 09/23 21:25 Order name: Magnesium; Complete Time: 23:21 lilia 09/23 21:25 Order name: NT PRO-BNP; Complete Time: 23:21 lilia 09/23 21:25 Order name: PT-INR; Complete Time: 23:21 [facility] 09/23 21:25 Order name: Troponin HS; Complete Time: 23:21 [facility] 09/23 21:25 Order name: XRAY Chest (1 view); Complete Time: 23:21 [facility] 09/23 21:25 Order name: Lipase; Complete Time: 23:21 [facility] 09/23 21:49 Order name: SARS RAPID; Complete Time: 23:21 [facility] 09/23 21:58 Order name: CT Abd/Pelvis - IV Contrast Only [facility] 09/23 22:04 Order name: Abdomen ; Complete Time: 23:21 [facility] 09/23 21:25 Order name: Cardiac monitoring; Complete Time: 21:50 [facility] 09/23 21:25 Order name: EKG - Nurse/Tech; Complete Time: 21:50 [facility] 09/23 21:25 Order name: IV Saline Lock; Complete Time: 22:36 [facility] 09/23 21:25 Order name: Labs collected and sent; Complete Time: 22:36 [facility] 09/23 21:25 Order name: O2 Per Protocol; Complete Time: 21:50 [facility] 09/23 21:25 Order name: O2 Sat Monitoring; Complete Time: 21:50 [facility] 09/24 01:49 Order name: EKG - Nurse/Tech lilia EC:58 Rate is 61 beats/min. Rhythm is regular. QRS [place] is Normal. GA interval is normal. QRS lilia interval is normal. QT interval is normal. No Q waves. T waves are Normal. ST Segment is elevated in leads II, III, aVF, V3, V4, V5, V6. Clinical impression: No evidence of ischemia. Administered Medications: 21:25 CANCELLED (Duplicate Order): morphine 2 mg IVP once over 4 mins lilia 21: CANCELLED (Duplicate Order): morphine 2 mg IVP once over 4 mins lilia 21:57 CANCELLED (Duplicate Order): Aspirin Chewable Tablet 324 mg PO once; 81 mg tablets x 4 lilia 22:35 Drug: Pepcid (famotidine) 20 mg Route: IVP; Site: left antecubital; em6 23:30 Follow up: Response: No adverse reaction em6 22:35 Drug: Zofran (Ondansetron) 4 mg Route: IVP; Site: left antecubital; em6 23:20 Follow up: Response: No adverse reaction em6 22:35 Drug: Dilaudid (HYDROmorphone) 1 mg Route: IVP; Site: left antecubital; em6 23:43 Follow up: Response: No adverse reaction; RASS: Alert and Calm (0) em6 22:36 Drug: Cipro (ciprofloxacin) 400 mg Volume: 200 ml; Route: IVPB; Infused Over: 60 mins; em6 Site: left antecubital; 23:56 Follow up: Response: No adverse reaction; IV Status: Completed infusion; IV Intake: em6 200ml 23:57 Drug: Flagyl (metroNIDAZOLE) 500 mg Volume: 100 ml; Route: IVPB; Rate: 200 ml/hr; em6 Infused Over: 30 mins; Site: left antecubital; 09/24 00:49 Follow up: IV Status: Completed infusion; IV Intake: 100ml bb 00:49 Drug: NS 0.9% 1000 ml Route: IV; Rate: 1 bolus; Site: left antecubital; bb 01:56 Follow up: IV Status: Completed infusion; IV Intake: 950ml bb 01:18 Drug: Dilaudid (HYDROmorphone) 1 mg Route: IVP; Site: left antecubital; bb 01:55 Follow up: Response: Pain is decreased bb 01:19 Drug: Zofran (Ondansetron) 4 mg Route: IVP; Site: left antecubital; bb 01:55 Follow up: Response: No adverse reaction bb 01:55 Not Given (Physician Discretion): NS 0.9% 1000 ml IV at 125 ml/hr continuous bb Disposition Summary: 09/23/22 23:24 Transfer Ordered Transfer Location: [facility] lilia Reason: Higher level of care lilia Condition: Fair lilia Problem: new lilia Symptoms: have improved lilia Accepting Physician: to [facility](09/24/22 01:56) bb Diagnosis - Ileus, unspecified - colonic lilia - Cystic fibrosis with other intestinal manifestations lilia - Abdominal tenderness lilia Forms: - Medication Reconciliation Form lilia - SBAR form lilia Signatures: Dispatcher [employer] EDChris Jon MD MD cha Ballard, Brenda, RN RN Carrie Subramanian RN RN kd3 Terri Arreguin RN RN em6 Corrections: (The following items were deleted from the chart) 09/23 21:25 21:25 morphine 2 mg IVP once over 4 mins ordered. [facility] : 21:25 morphine 2 mg IVP once over 4 mins ordered. lilia lilia 21:49 Aspirin Chewable Tablet 324 mg PO once; 81 mg tablets x 4 ordered. [facility] hospital : 21:29 Abdomen ordered. EDMS EDMS 09/24 01:56 09/23 23:24 to [facility] lilia hall
--- NOTE | 2022-09-23 23:25 | ER ---
Nurse's Notes [facility] Name: Matt Robles Age: 46 yrs Sex: Male : 1975 Arrival Date: 09/23/2022 Time: 21:14 Bed 25 Private MD: Diagnosis: Ileus, unspecified-colonic;Cystic fibrosis with other intestinal manifestations;Abdominal tenderness Presentation: 09/23 21:18 Chief complaint: Patient states: I have cystic fibrosis that effects my stomach. My kd3 stomach is bloated and it hurts on the right lower. The pain started today. It does flare up from time to time. Coronavirus screen: Vaccine status: Patient reports being unvaccinated. Ebola Screen: No symptoms or risks identified at this time. Initial Sepsis Screen: Does the patient meet any 2 criteria? No. Patient's initial sepsis screen is negative. Does the patient have a suspected source of infection? No. Patient's initial sepsis screen is negative. Risk Assessment: Do you want to hurt yourself or someone else? Patient reports no desire to harm self or others. Onset of symptoms was September 23, 2022. 21:18 Method Of Arrival: Ambulatory kd3 21:18 Acuity: BRENNA 3 kd3 Triage Assessment: 21:18 General: Appears in no apparent distress. Behavior is calm, cooperative. Pain: kd3 Complains of pain in right lower quadrant. Neuro: Level of Consciousness is awake, alert, obeys commands, Oriented to person, place, time, situation. GI: Abdomen is non-distended, Reports lower abdominal pain, nausea. Historical: - Allergies: 21:22 Toradol; kd3 - Immunization history:: Adult Immunizations up to date. - Social history:: Smoking status: Patient denies any tobacco usage or history of. - Family history:: not pertinent. Screenin:30 [facility] ED Fall Risk Assessment (Adult) History of falling in the last 3 months, em6 including since admission No falls in past 3 months (0 pts) Confusion or Disorientation No (0 pts) Intoxicated or Sedated No (0 pts) Impaired Gait No (0 pts) Mobility Assist Device Used No (0 pt) Altered Elimination No (0 pt) Score/Fall Risk Level 0 - 2 = Low Risk Oriented to surroundings, Maintained a safe environment, Educated pt \T\ family on fall prevention, incl call for assistance when getting out of bed, Assessed \T\ reinforced patient's understanding of fall precautions, Hourly rounding (assess needs \T\ fall precautionary measures) done. Abuse screen: Denies threats or abuse. Nutritional screening: No deficits noted. Tuberculosis screening: No symptoms or risk factors identified. Fall Risk Total Banks Fall Scale indicates No Risk (0-24 pts). Assessment: 21:30 General: Appears in no apparent distress. Behavior is cooperative. Pain: Complains of em6 pain in abdomen Pain does not radiate. Pain currently is 8 out of 10 on a pain scale. Quality of pain is described as pressure, sharp. Neuro: Level of Consciousness is awake, alert, obeys commands, Oriented to person, place, time, situation. Cardiovascular: Patient's skin is warm and dry. Rhythm is sinus rhythm. Respiratory: Airway is patent Respiratory effort is even, unlabored, Respiratory pattern is regular, symmetrical. GI: Abdomen is distended, Bowel sounds present X 4 quads. Abdomen is tender to palpation X 4 quads. : No signs and/or symptoms were reported regarding the genitourinary system. EENT: No signs and/or symptoms were reported regarding the EENT system. Derm: No signs and/or symptoms reported regarding the dermatologic system. Musculoskeletal: Circulation, motion, and sensation intact. Range of motion: intact in all extremities. 22:30 Reassessment: Patient appears in no apparent distress at this time. No changes from em6 previously documented assessment. Patient and/or family updated on plan of care and expected duration. Pain level reassessed. Patient is alert, oriented x 3, equal unlabored respirations, skin warm/dry/pink. 23:30 Reassessment: Patient appears in no apparent distress at this time. No changes from em6 previously documented assessment. Patient and/or family updated on plan of care and expected duration. Pain level reassessed. Patient is alert, oriented x 3, equal unlabored respirations, skin warm/dry/pink. 09/24 01:01 Reassessment: Patient is alert, oriented x 3, equal unlabored respirations, skin bb warm/dry/pink. pt states pain is worse now 07/19 Dr Beltrán notified new orders received pt medicated see DEC. 01:28 Reassessment: report given to [address] for [facility]. bb 01:52 Reassessment: [facility] at bedside for transportation of pt to [facility] pt is A\T\O x 4, bb resp unlabored, IV site intact, patent with no erythema or edema noted. Vital Signs: 09/23 21:18 Pulse 79; Resp 17; Temp 97.7(TE); Pulse Ox 100% ; Weight 70.31 kg; Height 6 ft. 1 in. kd3 (185.42 cm); Pain 10/10; 21:23 BP 109 / 90; kd3 22:36 BP 121 / 87; Pulse 72; Resp 19; Pulse Ox 99% on R/A; em6 23:42 BP 127 / 94; Pulse 60; Resp 14; Pulse Ox 100% on R/A; em6 09/24 01:00 BP 117 / 79; Pulse 59; Resp 16 S; Temp 98(O); Pulse Ox 99% on R/A; Pain 10/10; bb 09/23 21:18 Body Mass Index 20.45 (70.31 kg, 185.42 cm) kd3 ED Course: 09/23 21:14 Patient arrived in ED. es 21:21 Chris Beltrán MD is Attending Physician. lilia 21:21 Matthew Hinkle NP is PHCP. pm1 21:21 Triage completed. kd3 21:23 Arm band placed on left wrist. kd3 21:30 Terri Arreguin, RN is Primary Nurse. em6 21:30 Placed in gown. Bed in low position. Call light in reach. Side rails up X 1. Cardiac em6 monitor on. Pulse ox on. NIBP on. Warm blanket given. 22:22 Initial lab(s) drawn, by me, sent to lab. Inserted saline lock: 20 gauge in left bb antecubital area, using aseptic technique. Blood collected. 22:35 SARS RAPID Sent. em6 22:40 XRAY Chest (1 view) In Process Unspecified. EDMS 23:04 Abdomen In Process Unspecified. EDMS 09/24 01:55 No provider procedures requiring assistance completed. Patient transferred, IV remains bb in place. Administered Medications: 09/23 21:25 CANCELLED (Duplicate Order): morphine 2 mg IVP once over 4 mins lilia 21:25 CANCELLED (Duplicate Order): morphine 2 mg IVP once over 4 mins lilia 21:57 CANCELLED (Duplicate Order): Aspirin Chewable Tablet 324 mg PO once; 81 mg tablets x 4 lilia 22:35 Drug: Pepcid (famotidine) 20 mg Route: IVP; Site: left antecubital; em6 23:30 Follow up: Response: No adverse reaction em6 22:35 Drug: Zofran (Ondansetron) 4 mg Route: IVP; Site: left antecubital; em6 23:20 Follow up: Response: No adverse reaction em6 22:35 Drug: Dilaudid (HYDROmorphone) 1 mg Route: IVP; Site: left antecubital; em6 23:43 Follow up: Response: No adverse reaction; RASS: Alert and Calm (0) em6 22:36 Drug: Cipro (ciprofloxacin) 400 mg Volume: 200 ml; Route: IVPB; Infused Over: 60 mins; em6 Site: left antecubital; 23:56 Follow up: Response: No adverse reaction; IV Status: Completed infusion; IV Intake: em6 200ml 23:57 Drug: Flagyl (metroNIDAZOLE) 500 mg Volume: 100 ml; Route: IVPB; Rate: 200 ml/hr; em6 Infused Over: 30 mins; Site: left antecubital; 09/24 00:49 Follow up: IV Status: Completed infusion; IV Intake: 100ml bb 00:49 Drug: NS 0.9% 1000 ml Route: IV; Rate: 1 bolus; Site: left antecubital; bb 01:56 Follow up: IV Status: Completed infusion; IV Intake: 950ml bb 01:18 Drug: Dilaudid (HYDROmorphone) 1 mg Route: IVP; Site: left antecubital; bb 01:55 Follow up: Response: Pain is decreased bb 01:19 Drug: Zofran (Ondansetron) 4 mg Route: IVP; Site: left antecubital; bb 01:55 Follow up: Response: No adverse reaction bb 01:55 Not Given (Physician Discretion): NS 0.9% 1000 ml IV at 125 ml/hr continuous bb Medication: 01:55 VIS not applicable for this client. bb Intake: 09/23 23:56 IV: 200ml; Total: 200ml. em6 09/24 00:49 IV: 100ml; Total: 300ml. bb 01:56 IV: 950ml; Total: 1250ml. bb Outcome: 09/23 23:24 ER care complete, transfer ordered by MD. rodrigues 09/24 01:55 Transferred by ground EMS Transfer form completed. X-rays sent w/ patient. bb Condition: stable Instructed on the need for transfer. 01:56 Patient left the ED. bb Signatures: Dispatcher [employer] Chris Oh MD MD cha Salyer, Edna es Ballard, Brenda, RN RN bb Matthew Hinkle, JENNA DIVISION ENGINEER pm1 Carrie Mann RN RN kd3 Terri Arreguin RN RN em6
[2022-09-24] MEDS ORDERED: NA CHLORIDE 0.9% 1,000 ML ONE (00:53)
[2022-09-24] MEDS ORDERED: ONDANSETRON 4 MG/2 ML VIAL ONE (01:17)
[2022-09-24] MEDS ORDERED: HYDROMORPHONE HCL 1 MG/ML INJ ONE (01:17)
[2022-09-24 02:30] VITALS: BP 117/79; TEMP 98; O2SAT 99
== END 2022-09-24 01:56 | disposition short-term general hospital (02) ==
LOC: ER 21:03
DX: K56.7 Ileus, unspecified (principal); E84.19 Cystic fibrosis with other intestinal manifestations; Z88.6 Allergy status to analgesic agent; Z20.822 Contact with and (suspected) exposure to COVID-19
CPT/HCPCS: 96365; 96367; 96361; 85025; 80048; 36415; 83735; 85610; 80076; 84484; 83690; 83880; 74177; 71045; 96375; 99285; 87811; Q9967; J1170 ×2; J7030; J2405 ×2; J0744

== ENCOUNTER 2022-10-12 17:16 | Emergency (ER) | payer OTHER ==
--- OUTSIDE RECORDS SUMMARY | 2022-10-12 17:36 | XMS REPORT | Continuity of Care Document ---
:1975 Author Organization [facility] t Address [address] [place] [address] Care Team Providers Name Role Phone TEJINDER BURCH Primary Care Physician Unavailable Phil Arredondo Attending Clinician Pia Brumfield MD In Attending Clinician PIA BRUMFIELD IN Attending Clinician Unavailable PHIL ARREDONDO Attending Clinician Unavailable Bud GUERRERO, Claire Woodard Attending Clinician [phone] Debi Briggs MD Attending Clinician Kari Guerra MD Attending Clinician [phone] Deisi GUERRERO, Meaghan Rodríguez Attending Clinician [phone] MEAGHAN LIPSCOMB Attending Clinician Unavailable Oksana Goddard NP Attending Clinician [phone] OKSANA GODDARD Attending Clinician Unavailable DEBI BRIGGS Attending Clinician Unavailable Meredith Harry MD Attending Clinician [phone] Chaparro Farah MD Attending Clinician Coty Juarez MD Attending Clinician Tonny Meneses MD Attending Clinician TONNY MENESES Attending Clinician Unavailable Jillian Napier MD Attending Clinician JILLIAN NAPIER Attending Clinician Unavailable Tejinder Burch MD Attending Clinician TEJINDER BURCH Attending Clinician Unavailable KENDRICK WISEMAN Attending Clinician Unavailable Jacob Calle DO Attending Clinician Honey Painter MD Attending Clinician Elpidio Ramsey MD Attending Clinician ELPIDIO RAMSEY Attending Clinician Unavailable Brad Galindo DO Attending Clinician Jose Tovar MD Attending Clinician Pratik Layton MD Attending Clinician [phone] PRATIK LAYTON Attending Clinician Unavailable Puma Kent MD Attending Clinician PUMA KENT Attending Clinician Unavailable WILLIS GEORGE Attending Clinician Unavailable Balwinder Rebolledo MD Attending Clinician [phone] Samira Pearson MD Attending Clinician SAMIRA PEARSON Attending Clinician Unavailable SAMMI CABELLO Attending Clinician Unavailable TEJINDER BURCH Attending Clinician Unavailable BALAJI WILSON Attending Clinician Unavailable ELIGIO ROSENTHAL Attending Clinician Unavailable JILLIAN NAPIER Attending Clinician Unavailable CYN RECINOS Attending Clinician Unavailable Shannon Momin DO Attending Clinician SHANNON MOMIN Attending Clinician Unavailable COTY ELENA Attending Clinician Unavailable CLAIRE EWING Attending Clinician Unavailable BRYSON ZAZUETA Attending Clinician Unavailable Tejinder Burch MD Attending Clinician Oksana Goddard NP Attending Clinician DEANDRA ACUÑA Attending Clinician Unavailable Jillian Napier MD Attending Clinician RAMAN PANTOJA Attending Clinician Unavailable SHEEBA MOORE Attending Clinician Unavailable CESARIO SOUSA Attending Clinician Unavailable ERICK NO Attending Clinician Unavailable MILAGRO JAMES Attending Clinician Unavailable MIAN SOTELO Attending Clinician Unavailable LALIA LOGAN Attending Clinician Unavailable CYN CASILLAS Attending Clinician Unavailable PIA BRUMFIELD Admitting Clinician Unavailable MEAGHAN LIPSCOMB Admitting Clinician Unavailable [...] Clinician Unavailable CARLEEN MILLER Admitting Clinician Unavailable ANICETO KRUSE Admitting Clinician Unavailable IVIS PUGH Admitting Clinician Unavailable TEOFILO BAIRD Admitting Clinician Unavail able Payers Payer Name Policy Type Policy Number Effective Date Expiration Date S ourmarbella WELLMED DUAL [id number] COMPLETE [facility]-MEDICAID - [id number] 2020 MEDICAID 00:00:00 MEDICARE PART A [id number] 1999 \\T\\ B - MEDICARE 00:00:00 MEDICARE PLAN PPO [id number] AETNA GENERIC PPO - [id number] 2020 GENERIC PAYOR 00:00:00 MEDICAID OF [place] [id number] 2021 00:00:00 MEDICARE A B [id number] 2020 00:00:00 CDC REVIEW [id number] 2020 00:00:00 Problems Condition Condition Condition Status Onset Resolution Last Treating Co mments Source Name Details Category Date Date Treatment Clinician Date Ileus Ileus Disease Active 2021-[address] [facility] 00 [place] Enterocoli Enterocoli Disease Active [facility] tis tis 2-18 [facility]: Medical 00 [place] 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 2-16 [facility] y with y with 00:00: Medical colonic colonic 00 Center stricture stricture Generalize Generalize Disease Active 2020-[address] d d 0-23 [facility] abdominal abdominal 00:00: [facility] jf pain pain 00 Center Bowel Bowel Disease Active [facility] obstructio obstructio 1-16 [facility] n n 00:00: Medical 00 [place] Nausea Nausea Disease Active [facility]: Medical 00 [place] Ileus Ileus Disease Active [facility] 00 Center Pain of Pain of Disease Active [facility] upper upper 1-06 [facility] abdomen abdomen 00:00: Medical 00 [place] Distal Distal Disease Active [facility] intestinal intestinal 8-29 [facility] obstructio obstructio 00:00: Me dical n syndrome n syndrome 00 Ce nter Acute Acute Disease Active [facility] abdominal abdominal 7-29 [facility] pain pain 00:00: Medical 00 [place] Bilateral Bilateral Disease Active [facility] renal renal 7-09 [facility] stones stones 00:00: Medical 00 [place] Hydrourete Hydrourete Disease Active [facility] r, left r, left 7-09 [facility]: Medical 00 [place] Hydronephr Hydronephr Disease Active [facility] osis with osis with 04-17 [facility] ureteropel ureteropel 00:00: Me dical angle angel 00 [place] junction junction (UPJ) (UPJ) obstructio obstructio n n Acute left Acute left Disease Active [facility] flank pain flank pain 7 [facility]es 00:00: Medical 00 Center Gastrointe Gastrointe Disease Active [facility] stinal stinal 8 [facility] dysmotilit dysmotilit 00:00: Me dical y y 00 Center Hyponatrem Hyponatrem Disease Active [facility] ia ia 6-15 [facility] 00:[facility] Medical 00 Center MATHEW (acute MATHEW (acute Disease Active [facility] kidney kidney 6-13 [facility] injury) injury) 00:00: Medical 00 [place] Bronchiect Bronchiect Disease Active [facility] asis asis 6-13 [facility] 00:[facility]: Medical 00 Center Hyponatrem Hyponatrem Disease Active [facility] ia ia 6-13 [facility] 00:00: Medical 00 [place] Other Other Disease Active [facility] partial partial 3-04 College intestinal intestinal 00:00: of obstructio obstructio 00 Ma dicin n (HCCode) n (HCCode) e Vitamin E Vitamin E Disease Active [facility] deficiency deficiency 3-04 [facility] 00:00: of 00 Medicin e Vitamin A Vitamin A Disease Active [facility] deficiency deficiency 3-04 [facility] 00:00: of 00 Medicin e Exocrine Exocrine Disease Active [facility] pancreatic pancreatic 3-04 [facility] insufficie insufficie 00:00: of ncy ncy 00 Medicin e Vitamin D Vitamin D Disease Active [facility] deficiency deficiency 3-04 [facility] 00:00: of 00 Medicin e Abnormal Abnormal Disease Active [facility] on finding on 12-09 Co llege GI tract GI tract 00:00: of imaging imaging 00 Medicin e Chronic Chronic Disease Active Last [facility] constipati constipati 3 [facility] on on 00:00: t & Plan: of 00 Patient Medicin reports e no current GI issues, using 4 caps of Miralax 4x per day.Michael stevens reports to clinic for a follow up visit, patient has been in and out of a hospital in [place] for LIONEL and Constipat ion. Just returned to [place] yesterday . Was admitted to hospital 4 x in November for recurrent LIONEL. Patient reports current regimen is 4 capfuls 4 times daily, patient is having insurance issues with coverage. [facility] Discussed with patient at length issues with his current fragmente d care between [place] and [place], patient given informati on for adult center in [facility] which is only 3 hours from his home. Stated he did not know there was an adult CF center there. Other Other Disease Active [facility] constipati constipati 1-17 [facility] on on 00:00: Medical 00 [place] Chronic Chronic Disease Active 2017-10 [facility] constipati constipati 2-16 Co llege on on 00:00: of 00 Medicin e RLQ RLQ Disease Active 2017-10 [facility] abdominal abdominal 2-16 [place] [facility] pain pain 00:00: of 00 Medicin e Poor Poor Disease Active 2017-10 Last [facility] social social 2-03 [employer] situation situation 00:00: t & Plan: o f 00 Will have Medicin him meet e with social work to assist with resources . [facility] [place] not currently intereste d in therapy as he states he speaks with his mentors. Will continue to follow up with him. Possible referral to psychiatr y if remains with symptoms of depressio n and anxiety. 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 [place] aeruginosa aeruginosa t & Plan: of colonizati colonizati Restart M edicin on on chronic e suppressi ve inhaled antibioti cs with LAVON. No known No known Disease Unive rs active active ity of problems problems [facility] Abdominal Abdominal Disease Resolve 2022-09-26 2022-09-[address] distention distention d 5-13 00:00:00 07:23:26 [facility]: Medical 00 [place] LIONEL LIONEL Disease Resolve 2017-102022-09-24 2022-09-[address] (distal (distal d 0-08 00:00:00 16:04:41 [facility] intestinal intestinal 00:00: Me dical obstructio obstructio 00 Ce nter n n syndrome) syndrome) Allergies, Adverse Reactions, Alerts Allergy Allergy Status Severity Reaction(s) Onset Inactive Treating Comm ents Source Name Type Date Date Clinician [place] Propensi Active Hives Univer s c ty to 10-18 ity of adverse 00:00: [place] reaction 00 [facility] [place] DRUG Active Hives Univers C INGREDI 10-18 ity of 00:00: [place] 00 [facility] [place] Drug Active Hives [facility] c Allergy 04-17 [facility] 00:[facility]: Medical 00 [place] K[place] Allergy Active High Hives [facility] C 04-17 [facility] 00:00: Medical 00 [place] No Known DA Active [facility] Allergie [address] [place] s 00:00: d 00 Medical [place] NO KNOWN Allergy Active [facility] Family History Family Member Diagnosis Comments Start Date Stop Date Source Natural brother Cystic fibrosis [facility] Natural father Heart disease [facility] Natural mother Lupus [facility] Social History Social Habit Start Date Stop Date Quantity Comments Source History [facility] Transport Non-Med Medical Center History [facility] 2022-09-08 2022-09-[address] [facility] Transport Med 00:00:00 00:00:[address] [facility] 2022-09-08 2022-09-[address] [facility] Housing Unable to 00:00:00 00:00:00 Medical Center Pay History [facility] 2022-09-08 2022-09-[address] [facility] Housing Places 00:00:00 00:00:00 Medical Ce nter Lived History [facility] 2022-09-08 2022-09-[address] [facility] Housing Homeless 00:00:00 00:00:00 Medical Center Last Year Alcohol intake 2022-09-07 2022-09-07 [address] [facility] [address] [facility] es 00:00:00 00:00:00 non-drinker of Medical Ce nter alcohol (finding) Exposure to 2022-08-27 2022-09-[address] [facility] SARS-CoV-2 (event) 00:00:00 20:59:00 [facility] Tobacco use and 2018-06-29 2018-06-29 Never used [facility] St Bere kes exposure 00:00:00 00:00:00 Medical Center Sex Assigned At [address] [facility] kes 00:00:00 00:00:00 Medical Center Smoking Status Start Date Stop Date Source Unknown if ever smoked [facility] Never smoker [facility] Center Medications Ordered Filled Start Stop Current Ordering Indication Dosage Frequency Signature Comments Components Source Medication Medication Date Date Medication? Clinician (SIG) Name Name shey 2021-10 Yes 1{capsu Q.5D Take [address] multivit 2-18 le} capsule by [facility] 22/vit 15:48: mouth 2 Medical D3/vit K 37 (two) Center (MVW times COMPLETE daily. FORMULATION D5000 ORAL) polyethylen 2021-10 17g Q.25D Take [address] e glycol 2-18 12-18 by mouth 4 Luke s (GLYCOLAX) 15:41: 00:00 (four) Medi jf 17 gram 11 :00 times Center packet daily. polyethylen 2021-10 Yes 17g Q.25D Take [address] [facility] e glycol 2-18 by mouth 4 [facility] (GLYCOLAX) 00:00: (four) Medic al 17 gram 00 times Center packet daily. docusate 2021-[address] 5 [facility] sodium 2-18 mLs (283 [facility] (ENEMEEZ) 00:00: mg total) Med ical 283 mg/5 mL 00 rectally Cent er Enem daily as needed (severe constipati on). polyethylen 2021-10- No 17g Q.25D Take [address] [facility] e glycol 2-18 12-18 by mouth 4 [facility] (GLYCOLAX) 00:00: 00:00 (four) Medi jf 17 gram 00 :00 times Center packet daily. docusate 2021-10- No 283mg Place [address] sodium 2-18 12-18 mLs (283 [facility] (ENEMEEZ) 00:00: 00:00 mg total) Me dical 283 mg/5 mL 00 :00 rectally Cent er Enem daily as needed (severe constipati on). pedi 2021-10 Yes 1{capsu Q.5D Take 1 [...] Medica l 54 :00 times Center daily. plecanatide 2021-10 3mg QD Take [address] (Trulance) 2-03 12-03 by mouth Luke s 3 mg Tab 14:02: 00:00 daily. Medica l 54 :00 [facility] 2021-10 No 50mg Q.5D Take [address] (Ibsrela) 2-03 12-03 by mouth 2 [facility] 50 [...] mouth [facility] 3 mg Tab 00:00: daily. Medical Center [place] [address] [facility] Yes 50mg Q.5D Take [address] (Ibsrela) 2-03 by mouth 2 [facility] s 50 mg Tab 00:00: (two) Medical 00 times Center daily. plecanatide 2021-10 Yes 3mg QD Take [address] (Trulance) 2-03 by mouth [facility] 3 mg Tab 00:00: daily. Medical Center [place] 00 [place] polyethylen 2021-10 Yes 17g Q.25D Take 17 [...] mouth [facility] 3 mg Tab 20:27: daily. [facility] Yes 50mg Q.5D Take [address] (Ibsrela) 1-29 by mouth 2 Luke s 50 mg Tab 20:27: (two) Medical 39 times Center daily. polyethylen 2021-0 2021- No 4000mL Take 4,[address] e glycol 9-18 09-18 mLs by [facility] (Applied IdentityYTELY,N 00:00: 23:59 mouth once Medical uLYTELY) 00 :00 for 1 Center [id number] dose. .74 -5.86 gram solution polyethylen 2021-0 2- No 4000mL Take 4,[address] e glycol 9-18 09-18 mLs by [facility] (GoLYTELY,N 00:00: 23:59 mouth once Medical uLYTELY) 00 :00 for 1 Center [id number] dose. .74 -5.86 gram solution polyethylen 2021-0 2- No 4000mL Take 4,[address] e glycol 9-18 09-18 mLs by [facility] (GoLYTELY,N 00:00: 23:59 mouth once Medical uLYTELY) 00 :00 for 1 Center [id number] dose. .74 -5.86 gram solution polyethylen 2021-0 2021- No 34g Q.5D Take [address] e glycol 9-13 09-16 by mouth 2 Luke s (GLYCOLAX) 00:00: 23:59 (two) Medic al 17 gram 00 :00 times Center packet daily for 3 days. polyethylen 2021-0 2- No 34g Q.5D Take [address] e glycol 9-13 09-16 by mouth 2 Luke s (GLYCOLAX) 00:00: 23:59 (two) Medic al 17 gram 00 :00 times Center packet daily for 3 days. polyethylen 2021-0 2- No 34g Q.5D Take 34 g CHI [...] times COMPLETE daily. FORMULATION D5000 ORAL) polyethylen 2021-0 Yes 4000mL Take 4,[address] e glycol 3-01 mLs by [facility] (GoLYTELY,N 00:00: mouth as Me dical uLYTELY) 00 needed Center 236-22.74-6 (constipat .74 -5.86 ion). gram solution prucaloprid 2022-0 Yes 2mg QD Take [address] e 2 mg Tab 3-01 by mouth [facility] 00:00: daily. Medical 00 Center prucaloprid 2022-0 2022- No 2mg QD [...] St e glycol 3-01 09-18 mLs by Tayla (SmithaYTELY,N 00:00: 00:00 mouth as M edical uLYTELY) 00 :00 needed Center [id number] (constipat .74 -5.86 ion). gram solution polyethylen 2022-0 2022- No 4000mL Take 4,[address] e glycol 3-01 09-18 mLs by Tayla (SmithaYTELY,N 00:00: 00:00 mouth as M edical uLYTELY) 00 :00 needed Center 236-22.74-6 (constipat .74 -5.86 ion). gram solution polyethylen 2022-0 2022- No 4000mL Take 4,[address] e glycol 3-01 09-18 mLs by Tayla (SmithaYTELY,N 00:00: 00:00 mouth as M edical uLYTELY) 00 :00 needed Center [id number] (constipat .74 -5.86 ion). gram solution polyethylen 2022-0 2022- No 4000mL Take 4,[address] e glycol 2-28 03-01 mLs by [facility] (GoLYTELY,N 00:00: 00:00 mouth as M edical uLYTELY) 00 :00 needed [place] [id number] (constipat .74 -5.86 ion). gram solution prucaloprid 2021-0 2022- No 2mg QD Take [address] [facility] e 2 mg Tab 2-04 01- by mouth Luke s 00:00: 00:00 daily. Medical 00 :00 Center polyethylen 2021-0 2- No 4000mL Take 4,[address] e glycol 2-04 01- mLs by [facility] (GoLYTELY,N 00:00: 00:00 mouth as M edical uLYTELY) 00 :00 needed [place] [id number] (constipat .74 -5.86 ion). gram solution prucaloprid 2021-0 2022- No 2mg QD Take [address] [facility] e 2 mg Tab 2-04 01- by mouth Luke s 00:00: 00:00 daily. Medical 00 :00 Center polyethylen 2021-0 2022- No 4000mL Take 4,[address] e glycol 2-04 01- mLs by [facility] (GoLYTELY,N 00:00: 00:00 mouth as M edical uLYTELY) 00 :00 needed [place] [id number] (constipat .74 -5.86 ion). gram solution prucaloprid 2021-0 2022- No 2mg QD Take [address] [facility] e 2 mg Tab 2-04 01- by mouth Luke s 00:00: 00:00 daily. Medical 00 :00 Center polyethylen 2021-0 2022- No 4000mL Take 4,[address] e glycol 2- 03- mLs by [facility] (GoLYTELY,N 00:00: 00:00 mouth as M edical uLYTELY) 00 :00 needed [place] [id number] (constipat .74 -5.86 ion). gram solution prucaloprid 2021-0 2022- No 2mg QD Take [address] [facility] e 2 mg Tab 2-04 01- by mouth Luke s 00:00: 00:00 daily. Medical 00 :00 Center multivitami 2022- No 1{tbl} QD Take [address] n 2-02 12- tablet by [facility] (THERAGRAN) 00:00: 23:59 mouth Medi jf tablet 00 :00 daily. [place] multivitami 2021- No 1{tbl} QD Take [address] n 2-01 09-29 tablet by [facility] (THERAGRAN) 00:00: 00:00 mouth Medi jf tablet 00 :00 daily. [place] multivitami 2021- No 1{tbl} QD Take [address] n -01 09- tablet by [facility] (THERAGRAN) 00:00: 00:00 mouth Medi jf tablet 00 :00 daily. [place] multivitami 2021- No 1{tbl} QD Take [address] n -01 09- tablet by [facility] (THERAGRAN) 00:00: 00:00 mouth Medi jf tablet 00 :00 daily. [place] lubiproston Yes 72ug Q.5D Take [address] e (AMITIZA) 2-22 capsules Luke s 24 MCG 00:00: (72 mcg Medical capsule 00 total) by Center mouth 2 (two) times daily. lubiproston 2021- No 72ug Q.5D Take [address] [facility] e (AMITIZA) 2-31 08- capsules Arm[facility] es 24 MCG 00:00: 00:00 (72 mcg Medical capsule 00 :00 total) by Center mouth 2 (two) times daily. lubiproston 2021- No 72ug Q.5D Take [address] e (AMITIZA) 2-31 08- capsules Arm[facility] es 24 MCG 00:00: 00:00 (72 mcg Medical capsule 00 :00 total) by Center mouth 2 (two) times daily. lubiproston 2021- No 72ug Q.5D Take [address] e (AMITIZA) 2-22 -29 capsules Arm[facility] es 24 MCG 00:00: 00:00 (72 mcg Medical capsule 00 :00 total) by Center mouth 2 (two) times daily. lubiproston 2020-10- No 24ug Q.5D Take [address] e (AMITIZA) 0-28 10-28 mcg by [facility]ukes 24 MCG 14:37: 00:00 mouth 2 Medical capsule 59 :00 (two) Center times daily. melatonin 5 2020- Yes 5mg Take [address] [facility] mg [...] Center every night as needed (sleep). melatonin 2020-10- No 5mg Take [address] [facility] [facility] mg Tab 0-28 11-29 tablet (5 [facility] tablet 00:00: 00:00 mg total) Medic al 00 :00 by mouth Center every night as needed (sleep). lubiproston 2020-10- 72ug Q.5D Take [address] [facility] e [...] Center mouth 2 (two) times daily. hydrocortis 2020-101- No Q.5D Place [facility] one 0-28 11-07 rectally 2 [facility] (ANUSOL-HC) 00:00: 23:59 (two) Medi jf 2.5 % 00 :00 times Center rectal daily for cream 10 days for rectal pain. magnesium 2020-0 2021- No 400mg Q.5D Take [address] oxide 7- 07-07 tablet [facility] (MAG-OX) 00:00: 23:59 (400 mg Medic al 400 mg 00 :00 total) by Center (241.3 mg mouth 2 magnesium) (two) tablet times daily. polyethylen 2020-2021- No 34g Q.25D Take [address] e glycol -04 15-07 by mouth 4 Luke s (GLYCOLAX) 00:00: 23:59 (four) Medi jf 17 gram 00 :00 times Center packet daily. magnesium 2020-2021- No 400mg Q.5D Take [address] oxide 7- 07-07 tablet [facility] (MAG-OX) 00:00: 23:59 (400 mg Medic al 400 mg 00 :00 total) by Center (241.3 mg mouth 2 magnesium) (two) tablet times daily. polyethylen 2020-0 2021- No 34g Q.25D Take [address] e glycol -04 15-07 by mouth 4 Luke s (GLYCOLAX) 00:00: 23:59 (four) Medi jf 17 gram 00 :00 times Center packet daily. magnesium 2020-0 2021- No 400mg Q.5D Take [address] oxide 7- 07-07 tablet [facility] (MAG-OX) 00:00: 23:59 (400 mg Medic al 400 mg 00 :00 total) by Center (241.3 mg mouth 2 magnesium) (two) tablet times daily. polyethylen 2020-0 2021- No 34g Q.25D Take [address] e glycol - 07-07 by mouth 4 Luke s (GLYCOLAX) 00:00: 23:59 (four) Medi jf 17 gram 00 :00 times Center packet daily. magnesium 2020-0 2- No 400mg Q.5D Take [address] oxide 7- 07-07 tablet [facility] (MAG-OX) 00:00: 23:59 (400 mg Medic al 400 mg 00 :00 total) by Center (241.3 mg mouth 2 magnesium) (two) tablet times daily. polyethylen 2021- No 34g Q.25D Take [address] e glycol 04-15 07-07 by mouth 4 Luke s (GLYCOLAX) 00:00: 23:59 (four) Medi jf 17 gram 00 :00 times Center packet daily. ondansetron 2020- No 4mg 4 mg, Slow Univers (ZOFRAN 10-19 IV Push, ity of (PF)) 08:00: 06:57 ONCE, 1 [place] injection 4 00 :00 dose, Sun Med [...] dose, Sat Medica l mL) 10/18/20 at [place] injection 2215, 120 mL Routine NaCl 0.9% 2020- No 1000mL at 999 Uni vers (NS) bolus 10-19 01-10 mL/hr, ity of infusion 03:15: 04:55 1,000 mL, De[place] as 1,000 mL 00 :00 IV Medical Infusion, [place] ONCE, 1 dose, 10/18/20 at 2115, FAROOQ dornase 2020-0 Yes 2.5mg Q.5D Take 2.5 [facility] jeanette 7-31 mg by [place] (PULMOZYME) 00:00: nebulizati Medical 1 mg/mL 00 on 2 (two) Center nebulizer times solution daily. dornase 2020-0 Yes 2.5mg Q.5D Take 2.5 [facility] jeanette 7-31 mg by [place] (PULMOZYME) 00:00: nebulizati Medical 1 mg/mL 00 on 2 (two) Center nebulizer times solution daily. dornase 2020-0 Yes 2.5mg Q.5D Take 2.5 [facility] t jeanette 7-31 mg by [facility] (PULMOZYME) 00:00: nebulizati Medical 1 mg/mL 00 on 2 (two) Center nebulizer times solution daily. dornase 2020-0 Yes 2.5mg Q.5D Take 2.5 [facility] t jeanette 7-31 mg by [facility] (PULMOZYME) 00:00: nebulizati Medical 1 mg/mL 00 on 2 (two) Center nebulizer times solution daily. tobramycin, 2019-0 Yes [id number] 300mg Take 1 [facility] PF, (LAVON) 6-16 Ampule by Chuy genao 300 MG/5ML 00:00: nebulizati o f nebulizer 00 on two Medicin solution times e daily. Alternate 28 days on with 28 days off. albuterol 2019-0 Yes [id number] 2.5mg Take 1 [facility] (PROVENTIL) 6-15 Ampule by Col [place] (2.5 mg/3 00:00: nebulizati of mL) 0.083% 00 on two Medicin nebulizer times e solution daily. sodium 2019-0 Yes [id number] 4mL 1 Ampule [facility] rasheed chloride, 6-15 two times Colle ge Inhalant, 00:00: daily. of (HYPER-CHELSEA) 00 Medicin 7 % e nebulizer solution dornase 2019-0 Yes [id number] 2.5mg Take 1 [facility] rasheed alpha 6-15 Ampule by Jose (PULMOZYME) 00:00: nebulizati of 1 MG/ML 00 on daily. Medicin nebulizer e solution Nutritional 2019-0 2020- No [id number] 1{bottl Take 1 [facility] Supplements 6-15 12-13 e} Bottle by Renuka vasquez (ENSURE 00:00: 05:59 mouth 3 of PLUS) LIQD 00 :00 times Medicin daily for e 180 days. Multiple 2019-0 2020- No [id number] 1{capsu Take 1 [facility] Vitamins-Mi 6-15 12-13 le} capsule by Roel castillo (MVW 00:00: 05:59 mouth 2 of COMPLETE 00 :00 times Medicin FORMULATION daily e D5000) CAPS (with meals) for 180 days. elexacaftor 2020-0 Yes 2{tbl} QD Take [address] -tezacaftor 6-11 tablets by Bere crespo 00:00: mouth Medical (TRIKAFTA) 00 every Center 100-50-75 evening mg(d) /150 Take As mg (n) TbSQ directed by elexacaftor 2019-0 Yes 2{tbl} Take [address] -tezacaftor 6-11 tablets by Bere crespo 00:00: mouth Medical (TRIKAFTA) 00 Every Center 100-50-75 morning mg(d) /150 and one in mg (n) TbSQ evening. elexacaftor 2020-0 Yes 2{tbl} Take [address] -tezacaftor 6-11 tablets by Bere crespo 00:00: mouth Medical (TRIKAFTA) 00 Every Center 100-50-75 morning mg(d) /150 and one in mg (n) TbSQ evening. elexacaftor 2020-0 Yes 2{tbl} Take [address] -tezacaftor 6-11 tablets by Bere crespo 00:00: mouth Medical (TRIKAFTA) 00 Every Center 100-50-75 morning mg(d) /150 and one in mg (n) TbSQ evening. TRIKAFTA 2020-0 Yes [id number] Take 2 Irion rasheed 100-50-75 & 6-11 [facility] 150 MG TBPK 00:00: tablets by of 00 mouth Medicin every e morning, and 1 blue tablet by mouth every evening (12 hours apart) with fat-contai sharan food. Elexacaf-Te 2019-0 Yes [id number] Take 2 [facility] zacaf-Ivaca 3-05 tablets by Co germainege f&Ivacaf 00:00: mouth of 100-50-75 & 00 every Medicin 150 MG TBPK morning e AND 1 tablet nightly. 12 hours apart. Take with 12g of fat. Farber tablet morning, blue tablet night. polyethylen 2020-0 Yes [id number] 1{packe Take 1 [facility] e glycol 2-17 t} Packet by [facility] e (MIRALAX) 00:00: mouth four of packet 00 times Medicin daily. e Each packet should be 17 grams. polyethylen 2020-0 Yes [id number] 1{packe Take 1 [facility] e glycol 2-17 t} Packet by Karl e (MIRALAX) 00:00: mouth four of packet 00 times Medicin daily. e Each packet should be 17 grams. sodium 2020-0 Yes [id number] 4mL 1 Ampule Irion rasheed chloride, 1-16 two times Colle ge Inhalant, 00:00: daily. of (HYPER-CHELSEA) 00 Medicin 7 % e nebulizer solution tobramycin, 2019-0 Yes 300mg Take 1 Irion rasheed PF, (LAVON) 1-16 Ampule by [facility] eg 300 MG/5ML 00:00: nebulizati o f nebulizer 00 on two Medicin solution times e daily. Indication s: Alternate 21 days on with 21 days off dornase 2019-0 Yes [id number] 2.5mg Take 1 Irion rasheed alpha 1-16 Ampule by [place] (PULMOZYME) 00:00: nebulizati of 1 MG/ML 00 on daily. Medicin nebulizer e solution albuterol 2020-0 Yes [id number] 2.5mg Take 1 [facility] (PROVENTIL) 1-16 Ampule by [facility] [place] (2.5 mg/3 00:00: nebulizati of mL) 0.083% 00 on two Medicin nebulizer times e solution daily. Nutritional 2019-0 2020- No [id number] 1{bottl Take 1 [facility] Supplements 1-16 07-15 e} Bottle by Co christina (ENSURE 00:00: 04:59 mouth 3 of PLUS) LIQD 00 :00 times Medicin daily for e 180 days. polyethylen 2020-0 Yes [id number] Drink 8 oz [facility] e glycol 1-09 every 15 College (GOLYTELY;N 00:00: minutes of ULYTELY) 00 till Medicin 236 g having e suspension regular bowel movments. polyethylen 2019-0 2020- No [id number] Drink 8 oz [facility] e glycol 1-09 07-08 every 15 Colleg e (GOLYTELY;N 00:00: 00:00 minutes of ULYTELY) 00 :00 till Medicin 236 g having e suspension regular bowel movments. Multiple 2018-10 2020- No [id number] 1{capsu Take 1 [facility] Vitamins-Mi 2-05 06-03 le} capsule by Roel castillo (MVW 00:00: 04:59 mouth 2 of COMPLETE 00 :00 times Medicin FORMULATION daily e D5000) CAPS (with meals) for 180 days. Nutritional 2020- No [id number] 1{bottl Take 1 [facility] Supplements 7-11 01-08 e} Bottle by Renuka vasquez (ENSURE 00:00: 05:59 mouth 3 of PLUS) LIQD 00 :00 times Medicin daily for e 180 days. polyethylen 2019- Yes [id number] 17g Take 17 g [facility] e glycol 7-10 by mouth [place] (GLYCOLAX) 00:00: four times o f powder 00 daily. Medicin e Mineral Oil 2018- Yes [id number] 1{enema PLACE 1 [facility] ENEM 5-23 } ENEMA [place] 00:00: RECTALLY of 00 NEEDED Medicin e Mineral Oil 2019- Yes [id number] 1{enema PLACE 1 [facility] ENEM 5-23 } ENEMA [place] 00:00: RECTALLY of 00 NEEDED Medicin e Mineral Oil 2018- Yes [id number] 1{enema PLACE 1 [facility] ENEM 5-23 } ENEMA College 00:00: RECTALLY of 00 NEEDED Medicin e Linaclotide 2018- Yes 1{tbl} Take 1 Tab [facility] (LINZESS) 3-28 by mouth Colleg e 290 MCG 00:00: daily. of CAPS 00 Medicin e dornase 2019- Yes [id number] 2.5mg Take 1 Irion rasheed alpha 1-18 Ampule by [place] (PULMOZYME) 00:00: nebulizati of 1 MG/ML 00 on daily. Medicin nebulizer e solution Pancrelipas 2019-0 Yes 1{capsu Take 1 Cap [facility] e, 1-09 le} by mouth [place] Lip-Prot-Am 00:00: four times of yl, (CREON) 00 daily. Medici n [id number] units e CPEP Pancrelipas 2019-0 Yes 1{capsu Take 1 Cap [facility] e, 1-09 le} by mouth [place] Lip-Prot-Am 00:00: four times of yl, (CREON) 00 daily. Medici n 24537 units e CPEP Pancrelipas 2018-0 Yes 1{capsu Take 1 Cap [facility] e, 10-18 le} by [facility] Lip-Prot-Am 00:00: four times of yl, (CREON) 00 daily. Medici n 74179 units e CPEP pediatric 2017-10 Yes 1{capsu QD Take [address] multivit 11-15 le} capsule by Tayla 61-D3-vit K 00:00: [...] mouth Medi jf (MVW 00 :00 daily. [place] COMPLETE FORMULATION D5000) 5,000-800 unit-mcg Cap pediatric 2017-10- No 1{capsu QD Take [address] multivit -09-07 le} capsule by John cleaning 61-D3-vit K 00:00: 00:00 mouth Medi jf (MVW 00 :00 daily. [place] COMPLETE FORMULATION D5000) 5,000-800 unit-mcg Cap pediatric 2017-10- No 1{capsu QD Take [address] multivit 11-15 le} capsule by John cleaning 61-D3-vit K 00:00: 00:00 mouth Medi jf (MVW 00 :00 daily. [place] COMPLETE FORMULATION D5000) 5,000-800 unit-mcg Cap sodium 2017-10 Yes 4mL QD [address] [facility] chloride, 11-07 daily . [facility] hypertonic, 00:00: Medica l (HYPER-CHELSEA) 00 [place] 7 % nebulizer solution sodium 2017-10 Yes [...] 7 % nebulizer solution albuterol 2017-10 Yes [id number] 2.5mg Take 1 [facility] (PROVENTIL) 11-07 Ampule by Col lege (2.5 mg/3 00:00: nebulizati of mL) 0.083% 00 on two Medicin nebulizer times e solution daily. sodium 2017-10 Yes [id number] 4mL 1 Ampule Irion rasheed chloride, 11-07 two times Colle ge Inhalant, 00:00: daily. of (HYPER-CHELSEA) 00 Medicin 7 % e nebulizer solution tobramycin, 2017-10 Yes 300mg Take 1 Irion rasheed PF, (LAVON) 11-07 Ampule by Chuy ege 300 MG/5ML 00:00: [...] meals. 1-2 tablets with snacks . albuterol 0 Yes 2.5mg Take [address] (PROVENTIL) 9-23 (2.5 mg [facility] 2.5 mg /3 00:00: total) by Med ical mL (0.083 [address] er %) on every 6 nebulizer (six) solution hours as needed for Wheezing. tobramycin, 0 Yes 300mg Q.5D Take [address] PF, (LAVON) 9-23 (300 mg [facility] 300 mg/5 mL 00:00: total) by M edical nebulizer 00 [address] er solution on 2 (two) times daily 21days on . lipase-prot 0 Yes 1{capsu Take [address] ease-amylas 9-23 le} capsule by Bere moodys e (CREON) 00:00: mouth 3 Medic al 36,000-114, 00 (three) Cente r 000- times 180,000 daily with unit CpDR meals 3 capsule tablets before meals. 1-2 tablets with snacks . albuterol 0 Yes 2.5mg Take [address] (PROVENTIL) 9-23 (2.5 mg [facility] 2.5 mg /3 00:00: total) by Med ical mL (0.083 [address] er %) on every 6 nebulizer (six) solution hours as needed for Wheezing. tobramycin, 0 Yes 300mg Q.5D Take [address] PF, (LAVON) 9-23 (300 mg [facility] 300 mg/5 mL 00:00: total) by M edical nebulizer [address] er solution on 2 (two) times daily 21days on . lipase-prot Yes 1{capsu Take [address] ease-amylas 9-23 le} capsule by Bere valdivia e (CREON) 00:00: mouth 3 Medic al [...] St ease-amylas 9-23 le} capsule by Bere valdivia e (CREON) 00:00: mouth 3 Medic al 36,000-114, 00 (three) Cente r 000- times 180,000 daily with unit CpDR meals 3 capsule tablets before meals. 1-2 tablets with snacks . No known No Univers medications [facility] Immunizations Ordered Immunization Filled Immunization Date Status Commen ts Source Name Name Pneumococcal 2019-06-[address] [facility] Conjugate (Prevnar) 00:00:00 [facility] 13-Valent Pneumococcal 2019-06-[address] [facility] Conjugate (Prevnar) 00:00:00 [facility] 13-Valent Pneumococcal 2019-06-[address] [facility] Conjugate (Prevnar) 00:00:00 [facility] 13-Valent Pneumococcal 2019-06-[address] [facility] Conjugate (Prevnar) 00:00:00 [facility] 13-Valent Influenza (whole) 2019-05-30 Completed [facility] 00:00:00 of Medicine Influenza (whole) 2019-05-30 Completed [facility] 00:00:00 of Medicine Influenza (whole) 2019-05-30 Completed [facility] 00:00:00 of Medicine Influenza Quad-PF 2018-08-29 Completed [facility] 00:00:00 of Medicine Influenza Quad-PF 2018-08-29 Completed [facility] 00:00:00 of Medicine Influenza Quad-PF 2018-08-29 Completed [facility] 00:00:00 of Medicine Influenza Four-QIV 2018-07-22 [...] Observation Time Observation Value Comments Source HEIGHT 2022-09-24 03:22:00 185.4 cm WEIGHT 2022-09-24 03:22:00 68.811 kg HEIGHT 2022-09-24 03:22:00 185.4 cm WEIGHT 2022-09-24 03:22:00 68.811 kg HEIGHT 2022-09-24 03:22:00 185.4 cm WEIGHT 2022-09-24 03:22:00 68.811 kg HEIGHT 2022-09-07 20:33:00 185.4 cm WEIGHT [...] 07:00:00 134 mm[Hg] Univer sity of pressure [facility] Diastolic blood 2020-10-19 07:00:00 92 mm[Hg] Unive rsity of [facility] Heart rate 2020-10-19 07:00:00 53 /min [facility] [place] [facility] [place] Respiratory rate 2020-10-19 07:00:00 15 /min Univ ersity of [facility] Oxygen saturation in 2020-10-19 07:00:00 100 /min University of Arterial blood by [place] [facility] Pulse oximetry [facility] Body temperature 2020-10-19 03:08:00 36.72 [facility] Body height 2020-10-19 03:08:00 185.4 cm Universi ty [facility] [place] Body weight 2020-10-19 03:08:00 70.308 kg Universi ty [facility] BMI 2020-10-19 03:08:00 20.45 kg/m2 Universi ty [facility] Systolic blood 2020-10-19 07:00:00 134 mm[Hg] Univer sity of pressure [facility] Diastolic blood 2020-10-19 07:00:00 92 mm[Hg] Unive rsity of pressure [facility] Heart rate 2020-10-19 07:00:00 53 /min [facility] Respiratory rate 2020-10-19 07:00:00 15 /min Univ ers[facility] Oxygen saturation in 2020-10-19 07:00:00 100 /min University of Arterial blood by MeUndies jf Pulse oximetry Branch Body temperature 2020-10-19 03:08:00 36.72 [facility] Body height 2020-10-19 03:08:00 185.4 cm [facility] Body weight 2020-10-19 03:08:00 70.308 kg [facility] BMI 2020-10-19 03:08:00 20.45 kg/m2 [facility] HEIGHT 2020-10-15 08:14:00 185.4 cm WEIGHT 2020-10-15 [...] kg Systolic blood 2020-04-16 19:06:00 149 mm[Hg] [facility] pressure Medicine Diastolic blood 2020-04-16 19:06:00 82 mm[Hg] [facility] pressure Medicine Heart rate 2020-04-16 19:06:00 72 /min [facility] Body temperature 2020-04-16 19:06:00 37 Emer[facility] Respiratory rate 2020-04-16 19:06:00 18 /min [facility] Body height 2020-04-16 19:06:00 180.3 cm [facility] Body weight 2020-04-16 19:06:00 73.755 kg [facility] BMI 2020-04-16 19:06:00 22.68 kg/m2 [facility] Systolic blood 2019-12-12 19:02:00 124 mm[Hg] [facility] pressure Medicine Diastolic blood 2019-12-12 19:02:00 84 mm[Hg] [facility] Medicine Heart rate 2019-12-12 19:02:00 86 /min [facility] Body temperature 2019-12-12 19:02:00 37.17 [facility] Respiratory rate 2019-12-12 19:02:00 18 /min [facility] Body height 2019-12-12 19:02:00 180.3 cm [facility] Body weight 2019-12-12 19:02:00 70.126 kg [facility] BMI 2019-12-12 19:02:00 21.56 kg/m2 [facility] Systolic blood 2019-07-17 18:38:00 104 mm[Hg] [facility] Medicine Diastolic blood 2019-07-17 18:38:00 65 mm[Hg] [facility] Medicine Heart rate 2019-07-17 18:38:00 63 /min [facility] Body temperature 2019-07-17 18:38:00 36.67 [facility] Respiratory rate 2019-07-17 18:38:00 18 /min [facility] Body height 2019-07-17 18:38:00 180.3 cm [facility] Body weight 2019-07-17 18:38:00 71.215 kg [facility] BMI 2019-07-17 18:38:00 21.90 kg/m2 [facility] Systolic blood 2022-09-26 13:00:00 107 mm[Hg] [facility] Diastolic blood 2022-09-26 13:00:00 76 mm[Hg] [facility] Heart rate 2022-09-26 13:00:00 54 /min [facility] Body temperature 2022-09-26 13:00:00 36.56 [facility] Respiratory rate 2022-09-26 13:00:00 19 /min [facility] Oxygen saturation in 2022-09-26 13:00:00 97 /min [facility] Arterial blood by Medical Ce nter Pulse oximetry Body height 2022-09-24 03:22:[address] [facility] Body weight 2022-09-24 03:22:[address] [facility] BMI 2022-09-24 03:22:00 20.01 kg/m2 [facility] Systolic blood 2022-09-11 11:47:00 128 mm[Hg] [facility] Diastolic blood 2022-09-11 11:47:00 72 mm[Hg] [facility] Heart rate 2022-09-11 11:47:00 58 /min [facility] Body temperature 2022-09-11 11:47:00 36.56 [facility] Respiratory rate 2022-09-11 11:47:00 20 /min [facility] Oxygen saturation in 2022-09-11 11:47:00 100 /min [facility] Arterial blood by Medical Ce nter Pulse oximetry Systolic blood 2022-09-07 23:33:00 114 mm[Hg] [facility] Diastolic blood 2022-09-07 23:33:00 51 mm[Hg] [facility] Heart rate 2022-09-07 23:33:00 58 /min [facility] Body temperature 2022-09-07 23:33:00 37.06 [facility] Respiratory rate 2022-09-07 23:33:00 18 /min [facility] Oxygen saturation in 2022-09-07 23:33:00 98 /min [facility] Arterial blood by Medical Ce nter Pulse oximetry Body height 2022-09-07 20:33:[address] [facility] Body weight 2022-09-07 20:33:[address] [facility] BMI 2022-09-07 20:33:00 20.21 kg/m2 [facility] Heart rate 2021-12-09 08:50:00 63 /min [facility] Respiratory rate 2021-12-09 08:50:00 18 /min [facility] Oxygen saturation in 2021-12-09 08:50:00 96 /min [facility] Arterial blood by Medical Ce nter Pulse oximetry Systolic blood 2021-12-09 07:57:00 116 mm[Hg] [facility] Diastolic blood 2021-12-09 07:57:00 70 mm[Hg] [facility] Body temperature 2021-12-09 07:57:00 36.61 [facility] Body weight 2021-12-08 20:00:[address] [facility] BMI 2021-12-08 20:00:00 19.71 kg/m2 [facility] Body height 2021-12-05 07:23:[address] [facility] Procedures Procedure Date / Time Performing Clinician Source Performed XR ABDOMEN/KUB 1 VIEW 2022-09-26 07:55:[address] [facility] BASIC METABOLIC PANEL 2022-09-26 05:16:00 Pia Brumfield In [facility] MAGNESIUM 2022-09-26 05:16:[address] [facility] XR ABDOMEN/KUB 1 VIEW 2022-09-25 14:10:[address] [facility] SARS-COV2/RT-PCR ([facility] & 2022-09-25 14:03:00 Pia Brumfield In [facility] REF LABS) [facility] XR CHEST 1 VIEW PORTABLE / 2022-09-24 11:24:[address] [facility] BASIC METABOLIC PANEL 2022-09-24 04:05:00 Chaparro Farah [facility] HEPATIC FUNCTION PANEL 2022-09-24 04:05:00 Chaparro Farah [facility] PROTHROMBIN TIME/INR 2022-09-24 04:05:00 Chaparro Farah [facility] MAGNESIUM 2022-09-24 04:05:00 Chaparro Farah [facility] PHOSPHORUS 2022-09-24 04:05:00 Chaparro Farah [facility] CBC W/PLT COUNT & AUTO 2022-09-24 04:05:00 Chaparro Farah [facility] CBC W/PLT COUNT & AUTO 2022-09-24 04:05:00 Chaparro Farah [facility] EKG-SCANNED 2022-09-24 00:00:00 Vargas [facility] BASIC METABOLIC PANEL 2022-09-11 05:23[facility] 2022-09-11 05:[facility]11 05:23[facility]22-09-11 05:23[facility] W/PLT COUNT & AUTO 2022-09-11 [facility] & AUTO 2022-09-11 05:23[facility] BAS[facility]OLIC PANEL 2022-09-10 03:26[facility]00 [facility] 2022-09-10 03:26:00 [facility] MAGNESIUM 2022-09-10 03:26[facility]00 [facility] 2022-09-10 03:26:00 [facility] CBC W/PLT COUNT & AUTO 2022-09-10 03:26:00 Lightle, [facility] VANCOMYCIN LEVEL, TROUGH 2022-09-10 03:26:[address] [facility] CBC W/PLT COUNT & AUTO 2022-09-10 03:26:00 Lightle, [facility] US ABDOMEN LIMITED 2022-09-09 19:26:00 Lightle, [facility] XR ABDOMEN/KUB 1 VIEW 2022-09-09 13:27:00 Lightle, [facility] RESPIRATORY PANEL 2022-09-09 13:07:[address] [facility] BILIRUBIN, DIRECT 2022-09-09 13:04:00 Lightle, [facility] BASIC METABOLIC PANEL 2022-09-09 09:43:00 Lightle, [facility] HEPATIC FUNCTION PANEL 2022-09-09 09:43:00 Lightle, [facility] MAGNESIUM 2022-09-09 09:43:00 Lightle, [facility] PHOSPHORUS 2022-09-09 09:43:00 Lightle, [facility] CBC W/PLT COUNT & AUTO 2022-09-09 09:43:00 Lightle, [facility] CBC W/PLT COUNT & AUTO 2022-09-09 09:43:00 Lightle, [facility] XR CHEST 1 VIEW PORTABLE / 2022-09-08 18:51:00 Meaghan Lipscomb [facility] BEDSIDE [facility] STREP PNEUMONIAE ANTIGEN 2022-09-08 17:19:[address] [facility] LACTIC ACID, VENOUS 2022-09-08 17:18:00 Meaghan Lipscomb [facility] PROCALCITONIN 2022-09-08 17:18:00 Meaghan Lipscomb [facility] BLOOD CULTURE 2022-09-08 17:16:00 Meaghan Lipscomb [facility] COMPREHENSIVE METABOLIC 2022-09-08 04:32:00 Kari Guerra [facility] PANEL [facility] MAGNESIUM 2022-09-08 04:32:00 [facility] CBC (HEMOGRAM ONLY) 2022-09-08 04:32:00 [facility] SARS-COV2/RT-PCR ([facility] & 2022-09-07 06:24:00 [facility] Kari [facility] REF LABS) [facility] ABDOMEN/PELVIS WITH IV 2022-09-07 04:32:00 Claire Ewing [facility] CONTRAST [facility] BASIC METABOLIC PANEL 2022-09-07 02:23:00 Claire Ewing [facility] HEPATIC FUNCTION PANEL 2022-09-07 02:23:00 Claire Ewing [facility] LIPASE 2022-09-07 02:23:00 Claire Ewing [facility] CBC W/PLT COUNT & AUTO 2022-09-07 02:22:00 Claire Ewing [facility] LACTIC ACID, VENOUS 2022-09-07 02:22:00 Claire Ewing [facility] CBC W/PLT COUNT & AUTO 2022-09-07 02:22:00 Claire Ewing [facility] URINALYSIS W/ REFLEX URINE 2022-09-07 00:38:[address] [facility] CULTURE [facility] URINE CULTURE 2022-09-07 00:38:00 Claire Ewing [facility] ECG 12-LEAD 2022-09-06 23:05:36 Claire Ewing [facility] ECG 12-LEAD 2022-09-06 23:05:36 Unknown, [facility] ECG 12-LEAD 2022-09-06 23:05:36 Unknown, [facility] EKG-SCANNED 2022-09-06 00:00:00 Provider, Gloria [facility] CF RESPIRATORY CULTURE 2022-07-05 13:40:00 Oksana Goddard [facility] AMB REF TO 2022-07-05 11:45:20 [facility] of GASTROENTEROLOGY [place] Medicine CULTURE, RESPIRATORY, 2022-07-05 11:28:56 [facility] CYSTIC FIBROSIS Medicine FLU VACCINE QUAD 2022-07-05 11:22:08 [facility] Chuy ege of PRESERVATIVE FREE IM Medicine SPIROMETRY (IN CLINIC) 2022-07-05 00:00:00 [facility] CT ABDOMEN/PELVIS WITH IV 2022-06-27 05:18:00 Chester [facility] CBC W/PLT COUNT & AUTO 2022-06-27 01:32:00 Chester, [facility] BASIC METABOLIC PANEL 2022-06-27 01:32:00 Chester, [facility] HEPATIC FUNCTION PANEL 2022-06-27 01:32:00 Chester, [facility] LIPASE 2022-06-27 01:32:00 Chester [facility] CBC W/PLT COUNT & AUTO 2022-06-27 01:32:00 [facility] POCT-GLUCOSE METER 2022-06-22 17:11:00 [facility] POCT-GLUCOSE METER 2022-06-22 12:56:00 [facility] POCT-GLUCOSE METER 2022-06-22 05:50:00 [facility] BASIC METABOLIC PANEL 2022-06-22 03:56:00 [facility] CALCIUM, IONIZED 2022-06-22 03:56[facility]00 [facility] 2022-06-22 03:56:00 [facility] & AUTO 2022-06-22 03:56:00 Tonny Meneses [facility] MAGNESIUM 2022-06-22 03:56:00 [facility] W/[facility]T COUNT & AUTO 2022-06-22 03:56:00 Tonny Meneses [facility] POCT-GLUCOSE METER 2022-06-22 00:16:00 [facility] POCT-GLUCOSE METER 2022-06-21 17:12:00 Sintia [facility] POCT-GLUCOSE METER 2022-06-21 12:49:00 Sintia [facility] POCT-GLUCOSE METER 2022-06-21 08:18:00 Sintia [facility] BASIC METABOLIC PANEL 2022-06-21 04:58:00 Sintia [facility] CALCIUM, IONIZED 2022-06-21 04:58:00 [facility] 2022-06-21 04:58:00 [facility] W/PLT COUNT & AUTO 2022-06-21 04:58:00 Tonny Meneses [facility] MAGNESIUM 2022-06-21 04:58:00 [facility] W/[facility]T COUNT & AUTO 2022-06-21 04:58:00 Tonny Meneses [facility] POCT-GLUCOSE METER 2022-06-20 21:02:00 [facility] POCT-GLUCOSE METER 2022-06-20 17:36:00 Sintia [facility] POCT-GLUCOSE METER 2022-06-20 12:43:00 [facility] POCT-GLUCOSE METER 2022-06-20 09:50:00 Sintia [facility] POCT-GLUCOSE METER 2022-06-20 08:16:00 Sintia [facility] BASIC METABOLIC PANEL 2022-06-20 04:51:00 Sintia [facility] CALCIUM, IONIZED 2022-06-20 04:51:00 [facility] 2022-06-20 04:51:00 Sintia [facility] CBC W/PLT COUNT & AUTO 2022-06-20 04:51:00 Tonny Meneses [facility] MAGNESIUM 2022-06-20 04:51:00 Sintia [facility] CBC W/PLT COUNT & AUTO 2022-06-20 04:51:00 Tonny Meneses [facility] POCT-GLUCOSE METER 2022-06-19 21:09:00 Sintia [facility] POCT-GLUCOSE METER 2022-06-19 17:24:00 Sinita [facility] POCT-GLUCOSE METER 2022-06-19 12:16:00 Sintia [facility] BASIC METABOLIC PANEL 2022-06-19 04:37:00 Emma [facility] MAGNESIUM 2022-06-19 04:37:00 Emma [facility] CBC W/PLT COUNT & AUTO 2022-06-19 [facility]:37[facility]O 2022-06-19 04:37:00 Emma [facility] ABDOMEN/PELVIS WITH IV 2022-06-18 23:25:00 Meredith Harry CH I [facility] CONTRAST [facility] POCT-GLUCOSE METER 2022-06-18 23:24:[address] [facility] BLOOD CULTURE 2022-06-18 21:06:[address] [facility] SARS-COV2/RT-PCR ([facility] & 2022-06-18 21:06:00 SinghGraham [facility] REF LABS) [facility] CBC W/PLT COUNT & AUTO 2022-06-18 21:06:00 Meredith Harry [facility] DIFFERENTIAL [facility] LACTIC ACID, VENOUS 2022-06-18 21:06:00 Kamryn [facility] COMPREHENSIVE METABOLIC 2022-06-18 21:06:00 Kamryn [facility] PANEL [facility] PROTHROMBIN TIME/INR 2022-06-18 21:06:[address] [facility] APTT 2022-06-18 21:06:[address] [facility] CBC W/PLT COUNT & AUTO 2022-06-18 21:06:00 Meredith Harry [facility] DIFFERENTIAL [facility] ECG 12-LEAD 2022-06-18 17:50:02 Unknown, Hl7 [facility] ECG 12-LEAD 2022-06-18 17:50:02 Unknown, Hl7 [facility] ECG 12-LEAD 2022-06-18 17:50:02 Unknown, 7 [facility] EKG-SCANNED 2022-06-18 00:00:00 Provider, Gloria [facility] CF RESPIRATORY CULTURE 2022-01-14 11:54:00 Jillian Napier [facility] AFB CULTURE + SMEAR 2022-01-14 11:54:00 [facility] SPIN/CONCENTRATION CHARGE 2022-01-14 11:54:00 Quyen Stacyoneyda Griffin [facility] FUNGUS CULTURE + SMEAR 2022-01-14 11:53:00 Jillian Napier [facility] FUNGUS CULTURE + SMEAR 2021-12-30 16:13:00 MarcinTejinder [facility] AF[facility] CULTURE + SMEAR 2021-12-30 16:13:00 MarcinTejinder khan [facility] (SPUTUM ONLY) [facility] CF RESPIRATORY CULTURE 2021-12-30 16:13:00 Tejinder Burch [facility] SPIN/CONCENTRATION CHARGE 2021-12-30 16:13:00 Tejinder Burch [facility] CULTURE, RESPIRATORY, 2021-12-30 16:13:00 [facility] CYSTIC FIBROSIS Medicine [place] DEMO \\T\\/OR EVAL,PT 2021-12-30 16:10:09 [facility],AEROSOL DEVICE Medicine CBC W/AUTO DIFF WITH 2021-12-30 15:28:00 [facility] COMPREHENSIVE METABOLIC 2021-12-30 15:28:00 [facility] Medicine PROTIME-INR 2021-12-30 15:28:00 [facility] VITAMIN A 2021-12-30 15:28:00 [facility] VITAMIN D 25 HYDROXY 2021-12-30 15:28:00 [facility] VITAMIN E 2021-12-30 15:28:00 [facility] TESTOSTERONE 2021-12-30 15:28:00 [facility] HEMOGLOBIN A1C 2021-12-30 15:28:00 [facility] LIPID PANEL 2021-12-30 15:28:00 [facility] IGE 2021-12-30 15:28:00 [facility] TSH 2021-12-30 15:28:00 [facility] HANDICAPPED PLACARD 2021-12-30 15:17:11 [facility] FUNGAL CULTURE 2021-12-30 15:09:43 [facility] ACID FAST CULTURE 2021-12-30 15:09:43 [facility] SPIROMETRY (IN CLINIC) 2021-12-30 00:00:00 [facility] XR ABDOMEN/KUB 1 VIEW 2021-12-06 07:44:00 Miguel Curiel [facility] CBC (HEMOGRAM ONLY) 2021-12-06 04:55:00 BoMiguel lovett [facility] BASIC METABOLIC PANEL 2021-12-06 04:55:00 Artie [facility] POCT-GLUCOSE METER 2021-12-05 17:37:[address] [facility] CT ABDOMEN/PELVIS WITH IV 2021-12-05 09:41:00 Jacob Calle [facility] SARS-COV2/RT-PCR ([facility] & 2021-12-05 08:55:00 Jacob Calle [facility] REF LABS) [facility] CBC W/PLT COUNT & AUTO 2021-12-05 07:45:00 Jacob Calle [facility] COMPREHENSIVE METABOLIC 2021-12-05 07:45:00 Jacob Calle [facility] LIPASE 2021-12-05 07:45:00 Jacob Calle [facility] CBC W/PLT COUNT & AUTO 2021-12-05 07:45:00 Jacob Calle [facility] XR ABDOMEN/KUB 1 VIEW 2021-11-30 09:11:00 Patricio Loja [facility] BASIC METABOLIC PANEL 2021-11-30 08:50:00 Pratik Layton [facility] CBC W/PLT COUNT & AUTO 2021-11-26 05:05:00 [facility]OL[facility] PANEL 2021-11-26 05:05:00 [facility] W/[facility]T COUNT & AUTO 2021-11-26 05:05:00 Heidiunpiedmont mcduffieJose zimmerman [facility] CT ABDOMEN/PELVIS WITH IV 2021-11-25 03:19:00 Brad Galindo [facility] SARS-COV2/RT-PCR ([facility] & 2021-11-25 01:09:00 Brad Galindo [facility] REF LABS) Medical Center CBC W/PLT COUNT & AUTO 2021-11-25 01:09:00 Brad Galindo [facility] COMPREHENSIVE METABOLIC 2021-11-25 01:09:00 Brad Galindo [facility] MAGNESIUM 2021-11-25 01:09:00 Brad Galindo [facility] HIGH SENSITIVITY TROPONIN 2021-11-25 01:09:00 Brad Galindo [facility] LIPASE 2021-11-25 01:09:00 Brad Galindo [facility] CBC W/PLT COUNT & AUTO 2021-11-25 01:09:00 Brad Galindo [facility] ABDOMEN/PELVIS WITH IV 2021-11-14 00:11:00 Lance Steen [facility] CONTRAST [facility] COMPREHENSIVE METABOLIC 2021-11-13 22:53:00 [facility] LIPASE 2021-11-13 22:53:00 [facility] MAGNESIUM 2021-11-13 22:53:00 [facility] URINE CULTURE 2021-11-13 22:18:00 [facility] URINALYSIS W/ REFLEX URINE 2021-11-13 22:18:00 [facility] SARS-COV2/RT-PCR ([facility] & 2021-11-13 22:12:00 [facility] REF LABS) [facility] CBC W/PLT COUNT & AUTO 2021-11-13 22:12:00 [facility] CBC W/PLT COUNT & AUTO 2021-11-13 22:12:00 [facility] XR ABDOMEN/KUB 1 VIEW 2021-11-13 21:30:00 [facility] XR CHEST 1 VIEW PORTABLE / 2021-11-13 21:30:[address] [facility] ECG 12-LEAD 2021-11-13 19:46:04 Unknown, Hl7 [facility] ECG 12-LEAD 2021-11-13 19:46:04 Unknown, Hl7 [facility] ECG 12-LEAD 2021-11-13 19:46:04 Unknown, Hl7 [facility] EKG-SCANNED 2021-11-13 00:00:00 Provider, [facility] PHOSPHORUS 2021-08-06 04:54:00 Nalam, [facility] BASIC METABOLIC PANEL (7) 2021-08-06 04:54:00 Nalam, [facility] MAGNESIUM 2021-08-06 04:54:00 Nal, [facility] XR ABDOMEN / KUB 1 VIEW 2021-08-05 11:57:00 Samira Pearson [facility] PHOSPHORUS 2021-08-05 05:07:00 Nal, [facility] BASIC METABOLIC PANEL (7) 2021-08-05 05:07:00 Nal, [facility] MAGNESIUM 2021-08-05 05:07:00 Nal, [facility] PHOSPHORUS 2021-08-04 05:33:00 [facility], [facility] BASIC METABOLIC PANEL (7) 2021-08-04 05:33:00 Nalam, [facility] MAGNESIUM 2021-08-04 05:33:00 [facility] BASIC METABOLIC PANEL (7) 2021-08-03 04:23:00 Kesha I [facility] MAGNESIUM 2021-08-03 04:23:00 Kesha [facility] PHOSPHORUS 2021-08-03 04:23:00 Nalam, [facility] SARS-COV2/RT-PCR ([facility] & 2021-08-01 21:50:00 Puma Kent [facility] REF LABS) [facility] CT ABDOMEN/PELVIS WITH IV 2021-08-01 20:44:00 Elie Youngblood [facility] LIPASE 2021-08-01 19:18:00 KentPuma [facility] COMPREHENSIVE METABOLIC 2021-08-01 19:17:00 Elie Youngblood [facility] PANEL [facility] CBC W/PLT COUNT & AUTO 2021-08-01 19:17:00 Elie Youngblood [facility] DIFFERENTIAL [facility] CBC W/PLT COUNT & AUTO 2021-08-01 19:17:00 Elie Youngblood [facility] URINALYSIS 2020-10-19 04:37:00 Shannon Momin [facility] CT ABDOMEN PELVIS W 2020-10-19 04:02:25 Shannon Momin [facility] LIPASE 2020-10-19 03:17:00 Shannon Momin [facility] TROPONIN I 2020-10-19 03:17:00 Shannon Momin [facility] HEPATIC FUNCTION PANEL 2020-10-19 03:17:00 Shannon Momin [facility] ([id number]) (ALB,T.PRO,BILI [facility] T,BU/BC,ALT,AST,ALK PHOS) BASIC METABOLIC PANEL (NA, 2020-10-19 03:17:00 Shannon Momin [facility] K, CL, CO2, GLUCOSE, BUN, Medica l Branch CREATININE, CA) CBC WITH DIFF 2020-10-19 03:17:00 Shannon Momin [facility] COVID-19 (ID NOW RAPID 2020-10-19 03:17:00 Shannon Momin [facility] TESTING) [facility] HEPATIC FUNCTION PANEL 2019-12-12 20:30:00 Oksana Goddard [facility] SPIROMETRY (IN CLINIC) 2019-12-12 00:00:00 Oksana Goddard or [facility] COMPREHENSIVE METABOLIC 2019-07-17 18:26:00 Goddard, [facility] Medicine LIPID PANEL 2019-07-17 18:26:00 Oksana Goddard [facility] HEMOGLOBIN A1C 2019-07-17 18:26:00 Oksana Goddard [facility] ege of Medicine TESTOSTERONE 2019-07-17 18:26:00 Oksana Goddard [facility] Medicine TSH 2019-07-17 18:26:00 Oksana Goddard [facility] CBC W/AUTO DIFF WITH 2019-07-17 18:26:00 Rupesh [facility] Medicine PROTIME-INR 2019-07-17 18:26:00 Rupesh [facility] VITAMIN D 25 HYDROXY 2019-07-17 18:26:00 Rupesh [facility] SPIROMETRY (IN CLINIC) 2019-07-17 00:00:00 Oksana Goddard [facility] Plan of Care Planned Activity Planned Date Details Comments Source Future Scheduled 2028-09-[address] [facility] 00:00:00 malignant neoplasm Medical C enter of colon (procedure) [code = 509083252] Future Scheduled 2028-09-[address] [facility] 00:00:00 malignant neoplasm Medical C enter of colon (procedure) [code = 028674790] Future Scheduled 2028-09-[address] [facility] 00:00:00 malignant neoplasm Medical C enter of colon (procedure) [code = 086133818] Future Scheduled 2028-09-[address] [facility] 00:00:00 malignant neoplasm Medical C enter of colon (procedure) [code = 040791415] Future Scheduled 2028-09-[address] [facility] 00:00:00 malignant neoplasm Medical C enter of colon (procedure) [code = 606609275] Future Scheduled 2028-09-[address] [facility] 00:00:00 malignant neoplasm Medical C enter of colon (procedure) [code = 067434989] Future Scheduled 2028-09-[address] [facility] 00:00:00 malignant neoplasm Medical C enter of colon (procedure) [code = 639145482] Future Scheduled 2028-09-[address] [facility] 00:00:00 malignant neoplasm Medical C enter of colon (procedure) [code = 191683270] Future Scheduled 2026-12-[address] [facility] 00:[facility]:00 (procedure) [code = [facility] 40200373] Future Scheduled 2026-12-[address] [facility] 00:00:00 (procedure) [code = [facility] 53595263] Future Scheduled 2026-12-[address] [facility] 00:00:00 (procedure) [code = [facility] 16131341] Future Scheduled 2026-12-[address] [facility] 00:00:00 (procedure) [code = [facility] 52589159] Future Scheduled 2023-09-[address] [facility]00 (#1) [code = Medical Center INFLUENZA VACCINE (#1)] Future Scheduled 2021-10-10 [facility] 00:[facility]00 (#1) [code = [facility] COVID-19 VACCINE (#1)] Future Scheduled 1976-04-19 COVID-[address] [facility] 00:00:00 (#1) [code = [facility] COVID-19 VACCINE (#1)] Future Scheduled 1976-04-19 COVID-[address] [facility] 00:00:00 (#1) [code = [facility] COVID-19 VACCINE (#1)] Future Scheduled 1976-04-19 COVID-[address] [facility] 00:00:00 (#1) [code = [facility] COVID-19 VACCINE (#1)] Future Scheduled [address] [facility] 00:00:00 (combo) [code = CT Medical C enter Colonography (combo)] Future Scheduled [address] [facility] 00:00:00 malignant neoplasm Medical C enter of colon (procedure) [code = 743811923] Future Scheduled [address] [facility] 00:00:00 malignant neoplasm Medical C enter of colon (procedure) [code = 119864290] Future Scheduled 1975 Sigmoidoscopy [code [facility] 00:00:00 = Sigmoidoscopy] Medical [facility] Future Scheduled [address] [facility] 00:00:00 (combo) [code = CT Medical C enter Colonography (combo)] Future Scheduled [address] [facility] 00:00:00 malignant neoplasm Medical C enter of colon (procedure) [code = 799965329] Future Scheduled [address] [facility] 00:00:00 malignant neoplasm Medical C enter of colon (procedure) [code = 085079161] Future Scheduled 1975 Sigmoidoscopy [code [facility] 00:00:00 = Sigmoidoscopy] Medical [facility] Future Scheduled [address] 00:00:00 (combo) [code = CT Medical C enter Colonography (combo)] Future Scheduled [address] [facility] 00:00:00 malignant neoplasm Medical C enter of colon (procedure) [code = 290920611] Future Scheduled [address] [facility] 00:00:00 malignant neoplasm Medical C enter of colon (procedure) [code = 689430087] Future Scheduled 1975 Sigmoidoscopy [code [facility] 00:00:00 = Sigmoidoscopy] Medical [facility] Future Scheduled [address] 00:00:00 (combo) [code = CT Medical C enter Colonography (combo)] Future Scheduled [address] [facility] 00:00:00 malignant neoplasm Medical C enter of colon (procedure) [code = 641503093] Future Scheduled [address] [facility] 00:00:00 malignant neoplasm Medical C enter of colon (procedure) [code = 778764297] Future Scheduled 1975 Sigmoidoscopy [code [facility] 00:00:00 = Sigmoidoscopy] Medical [facility] Future Scheduled PANCREATIC ELASTASE Ordered: [employer] Test - FECAL [code = 12/12/2019 of Medicine 41861-4] Future Scheduled TETANUS SHOT (ADULT) [facility] Test [code = TETANUS SHOT of [...] = NOCPT] Future Scheduled TETANUS SHOT (ADULT) [employer] Test [code = TETANUS SHOT [...] COLONOSCOPY] Future Scheduled ACID FAST CULTURE Ordered: [facility] Test [code = 543-9] 07/17/2019 of Medicine Future Scheduled CULTURE, Ordered: [facility] [employer] Test RESPIRATORY, CYSTIC 07/17/2019 of Medic ine FIBROSIS [code = NOCPT] Future Scheduled FUNGAL CULTURE [code Ordered: [facility] Test = 601-5] 07/17/2019 of Medicine Future Scheduled GLUCOSE FASTING Ordered: [facility] Test [code = 1558-6] 07/17/2019 of Medicine Future Scheduled GLUCOSE TOLERANCE Ordered: [facility] Test 2HR [code = 61726] 07/17/2019 of Medici ne Future Scheduled [place] DEMO &/OR EVAL,PT Ordered: [facility] Test USE,AEROSOL DEVICE 07/17/2019 of Medici ne [code = 63211] Future Scheduled VITAMIN A [code = [facility] Test 2923-1] of Medicine Future Scheduled VITAMIN E [code = [facility] Test 1823-4] of Medicine Future Scheduled IGE [code = 55405-5] [facility] Test of Medicine Future Scheduled MEDICARE AWV [code = [employer] Test MEDICARE AWV] of Medicine Future Scheduled TETANUS SHOT (ADULT) [employer] Test [code = TETANUS SHOT of Medi cine (ADULT)] Future Scheduled HIV SCREENING [code [employer] Test = HIV SCREENING] of Medicine Future Scheduled COLON CANCER [facility] [employer] Test SCREENING: of Medicine COLONOSCOPY [code = COLON CANCER SCREENING: COLONOSCOPY] Future Scheduled DEXA BONE DENSITY 1 Occurrences [employer] Test SPINE AND HIP [facility] [code = 02795] 07/17/2019 until 07/17/2020 Future Appointment 2048-09-29 Tejinder Burch MD, [address] [employer] 00:00:[address]; [address], [place] [address] Future Appointment 2048-09-29 Tejinder Burch MD, [address] [employer] 00:00:[address]; [address], [place] [address] Future Appointment 2048-09-29 Tejinder Burch MD, [address] [employer] 00:00:[address]; [address], [place] [address] Future Appointment 2048-09-28 Tejinder Burch MD, [address] [employer] 00:00:[address]; [address], [place] [address] Future Appointment 2048-09-28 Tejinder Burch MD, [address] [employer] 00:00:00 [facility]; [address], [place] [address] Future Appointment 2048-09-28 Tejinder Burch MD, [address] [employer] 00:00:00 [facility]; [address], [place] [address] Encounters Start End Encounter Admission Attending Care Care Encounter Source Date/Time Date/Time Type Type Clinicians Facility Department ID 2022-09-24 2022-09-26 [facility] 1 [id number] [facility] St 03:04:00 15:42:00 Encounter Pia Brumfield In [facility] 2022-09-24 2022-09-26 [facility] [id number] [facility] 03:04:00 15:42:00 PIA 2022-09-06 2022[facility]09-[facility] [id number] [facility] St 21:10:00 16:18:00 [facility] Meaghan Lipscomb 2022-09-06 2022-09-11 [facility] Claire Ewing [facility] [id number] [facility] 21:10:00 16:18:00 Encounter Debi Briggs [facility] Meaghan Lipscomb 2022-09-06 2022-09-11 Inpatient ER DEISI [facility] Emergency [id number] SLE 21:10:00 16:18:00 BRANDON 2022-09-06 2022-09-06 Outpatient [facility] [id number] [facility] 00:00:00 23:59:00 [facility] 2022-09-06 2022-09-[address] [facility] [id number] 00:00:00 00:00:[address] [facility] 2022-09-06 2022-09-[address] [facility] [id number] [facility] 00[facility]00 [facility] 2022-09-06 2022-09-[address] [facility] [id number] 00:00:00 00:00:[address] [facility] 2022-09-06 2022-09-[address] [facility] [id number] [facility] 00:[facility]00 [facility] 2022-07-06 2022-07-06 Outpatient EL [facility] [id number] [facility] 09:35:01 09:35:01 2022-07-05 2022-07-[address] [facility] [id number] 14:15:00 14:30:00 Only Oksana Bourne [facility] [place] 2022-07-05 2022-07-[address] [facility] [id number] 14:15:00 14:30:00 Only Oksana Bourne [facility] [place] 2022-07-05 2022-07-05 Outpatient KUSUM GODDARD [facility] [id number] [facility] 10:21:37 12:09:09 [place] [facility] 2022-06-27 2022-06-27 [facility] [id number] 01:04:00 06:00:00 [facility] 2022-06-27 2022-06-27 Emergency ER Debi Briggs [facility] [id number] 01:04:00 06:00:00 [facility] 2022-06-27 2022-06-27 Emergency ER DEBI BRIGGS [facility] Emergency [id number] [facility] 01:04:00 06:00:00 2022-06-27 2022-06-[address] [facility] [id number] [facility]00 00:00:00 [facility] 2022-06-27 2022-06-[address] [facility] [id number] [facility] 00:[facility]00 00:00:00 [facility] 2022-06-18 2022-06-22 [facility] [id number] 17:52:00 19:32:00 Encounter Chaparro Farah, [facility] 2022-06-18 2022-06-22 [facility] MeredithSharp [facility] [id number] 17:52:00 19:32:00 Encounter Chaparro Farah, [facility] 2022-06-18 2022-06-22 Inpatient ER [facility] Emergency [id number] SLE 17:52:00 19:32:00 [facility] 2022-06-18 2022-06-18 Outpatient [facility] [id number] [facility] 00:00:00 23:59:00 Mikayla 2022-06-18 2022-06-[address] [facility] [id number] 00:00:00 00:00:[address] [facility] 2022-06-18 2022-06-[address] [facility] [id number] [facility]00 00:00:00 [facility] 2022-06-18 2022-06-[address] [facility] [id number] 00:00:00 00:00:[address] [facility] 2022-06-18 2022-06-[address] [facility] [id number] [facility]00 00:00:00 [facility] 2022-01-18 2022-01-18 [facility] [id number] [facility] 17:05:19 17:05:19 2022-01-14 2022-01-[address] [facility] [id number] 12:00:00 12:15:00 Only [facility] 2022-01-14 2022-01-[address] [facility] [id number] 12:00:00 12:15:00 Only [facility] 2022-01-14 2022-01-14 Outpatient DIANNAFAUSTO [facility] [id number] [facility] 08:35:17 09:55:24 SUNJAY [facility] 2022-01-01 2022-01-01 Outpatient EL SLE SLE [id number] SLE 15:16:13 15:16:13 2021-12-30 2021-12-[address] [facility] [id number] 16:15:00 16:30:00 Only [facility] 2021-12-30 2021-12-[address] [facility] [id number] 16:15:00 16:30:00 Only [facility] 2021-12-30 2021-12-30 Outpatient TEJINDER BURCH [facility] [id number] [facility] 14:18:15 15:15:02 [facility] 2021-12-29 2021-12-29 [facility] [id number] [facility] 15:12:46 17:35:51 SUNEAL [facility] 2021-12-052021-12-09 [facility] Jacob Calle [facility] [id number] 07:23:00 14:47:00 Encounter Honey Painter Lyssa [facility] 2021-12-05 2021-12-09 [facility] Jacob Calle [facility] [id number] 07:23:00 14:47:00 Encounter Honey Painter Lyssa Tayla Ramsey [facility] 2021-12-05 2021-12-09 Inpatient ER GABRIEL, [facility] Emergency [id number] SLE 07:23:00 14:47:00 [facility] 2021-11-25 2021-12-01 [facility] Brad Galindo [facility] [id number] 00:40:00 12:00:00 [facility] 2021-11-25 2021-12-01 [facility] Brad Galindo [facility] [id number] 00:40:00 12:00:00 [facility] 2021-11-25 2021-12-01 [facility] [id number] [facility] 00:40:00 12:00:[address] [facility] 2021-11-25 2021-11-[address] [facility] [id number] [facility] 00:[facility]00 00:00:00 [facility] 2021-11-25 2021-11-[address] [facility] [id number] [facility]00 00:00:00 [facility] 2021-11-13 2021-11-[address] [facility] [id number] 19:43:00 04:21:00 [facility] 2021-11-13 2021-11-[address] [facility] [id number] 19:43:00 04:21:00 [facility] 2021-11-13 2021-11-14 Emergency ER [facility] Emergency [id number] SLE 19:43:00 04:21:00 [facility] 2021-11-13 2021-11-13 Outpatient [facility] [id number] [facility] 00:00:00 23:59:00 [facility] 2021-11-13 2021-11-[address] [facility] [id number] 00:00:00 00:00:00 [facility] 2021-11-13 2021-11-[address] [facility] [id number] [facility] 00[facility]00 [facility] 2021-11-13 2021-11-[address] [facility] [id number] 00:00:00 00:00:00 [facility] 2021-11-13 2021-11-[address] [facility] [id number] [facility] 00[facility]00 [facility] 2021-08-13 2021-08-13 Outpatient TERRANCE [facility] [id number] SLE 00:00:00 00:00:00 WILLIS 2021-08-01 2021-08-06 Hospital ER [facility] [id number] 18:35:00 16:55:00 Encounter Balwinder Rebolledo [facility], [facility] 2021-08-01 2021-08-06 Inpatient ER [facility] Emergency 20 [id number] SLE 18:35:00 16:55:00 SAMIRA 2021-08-01 2021-08-[address] [facility] [id number] [facility] 00[facility]00 [facility] 2021-04-12 2021-04-12 Outpatient [facility] [id number] [facility] 00:00:00 23:59:00 [facility] 2021-04-12 2021-04-12 Emergency ER SLE Emergency [id number] [facility] 20:54:00 20:54:00 2021-03-26 2021-03-26 Outpatient EL [facility] [id number] [facility] 00:00:00 00:00:00 2021-03-25 2021-03-25 Outpatient RUPESH [facility] [id number] [facility] 13:59:09 15:59:50 [place] [facility] 2021-03-25 2021-03-25 Outpatient KATIE [facility] [id number] [facility] 07:36:01 08:05:39 [facility] 2021-02-19 2021-02-19 Emergency ER SLE Emergency [id number] SLE 15:12:00 15:12:00 2021-01-06 2021-01-06 Outpatient QUYEN, SLEH SLEH [id number] [facility] 00:00:00 00:00:00 [facility] 2021-01-06 2021-01-06 Outpatient EL QUYEN, SLEH SLE[facility] [id number] [facility] 00:00:00 00:00:00 [facility] 2021-01-06 2021-01-06 Outpatient EL SLE SLE [id number] [facility] 00:00:00 00:00:00 2020-10-25 2020-10-25 Emergency ER SLE Emergency [id number] [facility] 00:15:00 00:15:00 2020-10-19 2020-10-19 Emergency ER [facility] Emergency [id number] SLE 18:18:00 18:18:00 2020-10-18 2020-10-19 Emergency [facility] [id number] [facility] 21:04:00 01:30:00 Shannon Contreras 350.1.13.10 Jose 4.2.7.2.686 [facility] [id number] [facility] [address] [place] 2020-10-18 2020-10-19 Emergency [facility] [id number] 21:04:00 01:30:00 Shannon Contreras 350.1.13.10 [place] 4.2.7.2.686 [place] [id number] 2020-10-18 2020-10-18 Emergency X MERRILL, [facility] ERT [id number] Univers 21:04:00 21:04:00 SHANNON victor [facility] 2020-10-14 2020-10-14 Emergency ER SLE Emergency [id number] [facility] 23:24:00 23:24:00 2020-06-07 2020-06-07 Emergency ER SLEH Emergency [id number] [facility] 18:37:00 18:37:00 2020-05-06 2020-05-06 Emergency ER SLE Emergency [id number] [facility] 20:45:00 20:45:00 2020-04-17 2020-04-17 Emergency ER SLEH Emergency [id number] [facility] 06:45:00 06:45:00 2020-04-17 2020-04-17 Emergency ER SLEH SLEH [id number] [facility] 00:00:00 00:00:00 2020-04-16 2020-04-16 Office Tejinder Burch [facility] [id number] [facility] 13:49:02 16:37:49 Visit AMBULATOR 350.1.13.21 College Y 0.2.7.2.686 of [id number] Medi viral 350 e 2019-12-12 2019-12-12 Office KUSUM Goddard 1.2.840.114 [id number] [facility] 12:58:52 15:16:29 Visit Oksana AMBULATOR 350.1.13.21 College Y 0.2.7.2.686 of [id number] Medi viral 350 e 2019-07-17 2019-07-17 Office KUSUM Napier 1.2.840.114 [id number] [facility] 12:29:53 14:57:09 Visit Sunjay AMBULATOR 350.1.13.21 College Y 0.2.7.2.686 of [id number] Medi viral 350 e Results Test Description Test Time Test Comments Results Result [facility] e Comments RAD, ABDOMEN/KUB, 2022-09-26 Reason for 1 VIEW AP 09:41:00 exam:->constip ation [facility] 1975 Sex: M FI NAL REPORT Abdomen x-ray Clinical Diagnosis: ConstipationCompariso n: 09/25/2022Views: Two supine views of abdomen obtained Findings/impression:T here is persistent gaseous distention of loops bowel throughout the abdomen, similar to the prior examination. Findings can be seen in the setting of ileus versus distal bowel obstruction. No intraperitoneal free air is appreciated on this supine view examination. Signed: Donaot Varela [facility] Verified Date/Time: 09/26/2022 09:41:17 C METABOLIC PANEL 2022-09-26 08:14:57 Test Item Value Reference Range Interpretation Comme nts SODIUM (BEAKER) (test 139 meq/L 136-145 code = 381) POTASSIUM (BEAKER) 4.5 meq/L 3.5-5.1 Specimen slightly hemolyzed (test code = 379) CHLORIDE (BEAKER) (test 109 meq/L 98-107 H code = 382) CO2 (BEAKER) (test code 21 meq/L 22-29 L = 355) BLOOD UREA NITROGEN 5 mg/dL 7-21 L (BEAKER) (test code = 354) CREATININE (BEAKER) 1.17 mg/dL 0.57-1.25 Specimen slightly hemolyzed (test code = 358) GLUCOSE RANDOM (BEAKER) 81 mg/dL 70-105 (test code = 652) CALCIUM (BEAKER) (test 8.9 mg/dL 8.4-10.2 code = 697) EGFR (BEAKER) (test 79 mL/min/1.73 sq In terpretation of eGFR values code = 1092) m Stage Descripti on Result G1 Normal or high >=90 G2 Mildly decreased 60-89 G3a Mildly to moderately 45-5 9 G3b Moderately to severely 30- 44 G4 Severly decreased 15-29 G5 Kidney failure <15Repo rted eGFR is based on the CK D-EPI 2020 equation that d oes not use a race coefficien tEstimated GFR is not as accurate as Creatinine Clearance in pr edicting glomerular filt ration rate. Estimated GFR i s not applicable for dialysis manny silva Microsoft Architect ID - CHAMP [id number] 08:14:56 Test Item Value Reference Range Interpretation Comments MAGNESIUM (BEAKER) 1.7 mg/dL 1.6-2.6 Specimen slightly (test code = 627) hemolyzed Microsoft Architect ID - CHAMP WRAD, ABDOMEN/KUB, 1 VIEW [id number] 14:51:00Reason for exam:->constipation [facility] 1975 Sex: MFINAL REPORT TECHNIQUE: RAD, ABDOMEN/KUB, 1 VIEW AP INDICATION: constipation. COMPARISON: 09/09/2022 FINDINGS: 1. Persistent gaseous distention of large bowel without significant interval change. Supine radiographs are insensitive for detection of free intraperitoneal air. IMPRESSION:Persisting colonic ileus, not significant change. Continued radiographic follow-up is suggested. Stool burden is low. Signed: Mark Sorenson MDReport Verified Date/Time: 09/25/2022 14:51:14 SARS-CoV2/RT-PCR (Asymptomatic ONLY)2022-09-25 14:50:31 Test Item Value Reference Interpretation Comments Range SARS-COV2/RT-PCR Negative Negative The SARS-Co V-2 (test code = target nucleic 03708-8) acids are not detected in thi s [...] revoked sooner. Fact Sheet for Healthcare Providers: https://www.AdzCentral/Documents/Xp ert%20Xpress%20SAR S%20CoV-2/Fact%20S heets/302-3802%20S ARS-COV-2%20HEALTH CARE%20PROVIDERS%2 0FACT%20SHEET.pdf Fact Sheet for Healthcare Patients: https://www.AdzCentral/Documents/Xp ert%20Xpress%20SAR S%20CoV-2/Fact%20S heets/302-3801%20S ARS-COV-2%20PATIEN T%20FACT%20SHEET.p df Lab Interpretation Normal (test code = 46750-6) [facility])2022-09-25 14:50:31 Test Item Value Reference Range Interpretation Comments SARS-COV2/RT-PCR Negative Negative The SARS-Co V-2 target (test code = nucleic acids a re not 0716910) detected in thi s specimen. Negative result [...] revoked sooner. Fact Sheet for Healthcare Providers: https://www.Errund.Cartilix m/Documents/Xpert%20Xpress%20SARS%20CoV-2/Fact%20Sheets/3023802%95YXKU-UYI-9%20 HEALTHCARE%20PROVIDERS%20FACT%20SHEET.pdf Fact Sheet for Healthcare Patients: https://www.AcademixDirect/Documents/Xpert%20Xp ress%20SARS%20CoV-2/Fact%20Sheets/3023801%57GCMY-UTS-0%20PATIENT%20FACT%20SHEET .pdfRAD, CHEST, 1 VIEW, NON [id number] 11:52:00Reason for exam:->CF patientShould this be performed at the bedside?->Yes [facility] 1975 Sex: MFINAL REPORT INDICATION: CF patient COMPARISON: None TECHNIQUE: Single frontal view of the chest. FINDINGS: Lungs and pleura: Clear lungs. No effusion.Heart and mediastinum: Normal heart size. Unremarkable mediastinal contours.Osseous structures: No acute abnormality.Other: None. IMPRESSION: No acute intrathoracic abnormality. Signed: Lore Duque Verified Date/Time: 09/24/2022 11:52:00 Reading Location: [address] Reading Room HEPATIC FUNCTION [id number] 05:00:50 Test Item Value Reference Range Interpretation Comments TOTAL PROTEIN (BEAKER) (test code = 6.3 gm/dL 6.0-8.3 770) ALBUMIN (BEAKER) (test code = 1145) 3.7 g/dL 3.5-5.0 BILIRUBIN TOTAL (BEAKER) (test code 1.1 mg/dL 0.2-1.2 = 377) BILIRUBIN DIRECT (BEAKER) (test 0.4 mg/dL 0.1-0.5 code = 706) ALKALINE PHOSPHATASE (BEAKER) (test 76 U/L 40-150 code = 346) AST (SGOT) (BEAKER) (test code = 20 U/L 5-34 353) ALT (SGPT) (BEAKER) (test code = 39 U/L 6-55 347) Microsoft Architect ID - MARCOBASIC METABOLIC [id number] 05:00:49 Test Item Value Reference Range Interpretation Comments SODIUM (BEAKER) 136 meq/L 136-145 (test code = 381) POTASSIUM 4.4 meq/L 3.5-5.1 (BEAKER) (test code = 379) CHLORIDE (BEAKER) 106 meq/L 98-107 (test code = 382) CO2 (BEAKER) 23 meq/L 22-29 (test code = 355) BLOOD UREA 10 mg/dL 7-21 NITROGEN (BEAKER) (test code = 354) CREATININE 1.09 mg/dL 0.57-1.25 (BEAKER) (test code = 358) GLUCOSE RANDOM 98 mg/dL 70-105 (BEAKER) (test code = 652) CALCIUM (BEAKER) 8.7 mg/dL 8.4-10.2 (test code = 697) EGFR (BEAKER) 86 Interpretatio n of eGFR (test code = [...] not appl icable for dialysis patien ts Microsoft Architect ID - [id number] 05:00:49 Test Item Value Reference Range Interpretation Comments MAGNESIUM (BEAKER) (test code = 1.6 mg/dL 1.6-2.6 627) [employer] Architect ID - [id number] 05:00:49 Test Item Value Reference Range Interpretation Comments PHOSPHORUS (BEAKER) (test code = 3.4 mg/dL 2.3-4.7 604) [employer] Architect ID - MARCOPROTHROMBIN TIME/[id number] 04:40:50 Test Item Value Reference Range Interpretation Comments PROTIME (BEAKER) 15.6 seconds 11.9-14.2 H (test code = 759) INR (BEAKER) (test 1.26 See_Comment [Automat ed message] code = 370) The system Duolingo generated this result transmitted ref erence range: <=5.90. The reference range was not used to int erpret this result as normal/abnormal . RECOMMENDED COUMADIN/WARFARIN INR THERAPY RANGESSTANDARD DOSE: 2.0 - 3.0 Includes: PROPHYLAXIS for venous thrombosis, systemic embolization; TREATMENT for venous thrombosis and/or pulmonary embolus.HIGH RISK: Target INR is 2.5-3.5 for patients with mechanical heart valves.CBC W/PLT COUNT & AUTO [id number] 04:31:28 Test Item Value Reference Range Interpretation Comments WHITE BLOOD CELL COUNT (BEAKER) 5.9 K/ L 3.5-10.5 (test code = 775) RED BLOOD CELL COUNT (BEAKER) 3.89 M/ L 4.63-6.08 L (test code = 761) HEMOGLOBIN (BEAKER) (test code = 11.9 GM/DL 13.7-17.5 L 410) HEMATOCRIT (BEAKER) (test code = 36.2 % 40.1-51.0 L 411) MEAN CORPUSCULAR VOLUME (BEAKER) 93 fL 79-92 H (test code = 753) MEAN CORPUSCULAR HEMOGLOBIN 30.6 pg 25.7-32.2 (BEAKER) (test code = 751) MEAN CORPUSCULAR HEMOGLOBIN CONC 32.9 GM/DL 32.3-36.5 (BEAKER) (test code = 752) RED CELL DISTRIBUTION WIDTH 13.4 % 11.6-14.4 (BEAKER) (test code = 412) PLATELET COUNT (BEAKER) (test 258 K/CU MM 150-450 code = 756) MEAN [...] 0.00-1.00 PERCENT (BEAKER) (test code = 2801) BLOOD [id number] 19:01:42 Test Item Value Reference Range Interpretation Comments CULTURE (BEAKER) (test No growth in 5 days code = 1095) BLOOD [id number] 19:01:42 Test Item Value Reference Range Interpretation Comments CULTURE (BEAKER) (test No growth in 5 days code = 1095) HEPATIC FUNCTION [id number] 06:14:49 Test Item Value Reference Range Interpretation [...] (test code = 17 U/L 6-55 347) Microsoft Architect ID - [id number] 06:14:48 Test Item Value Reference Range Interpretation Comments MAGNESIUM (BEAKER) (test code = 1.6 mg/dL 1.6-2.6 627) Microsoft Architect ID - [id number] 06:14:48 Test Item Value Reference Range Interpretation Comments PHOSPHORUS (BEAKER) (test code = 3.2 mg/dL 2.3-4.7 604) Microsoft Architect ID - BSBASIC METABOLIC [id number] 06:14:47 Test Item Value Reference Range Interpretation [...] not appl icable for dialysis patien ts Microsoft Architect ID - BSCBC W/PLT COUNT & AUTO [id number] 05:41:16 Test Item Value Reference Range Interpretation [...] (BEAKER) (test code = 2801) VANCOMYCIN LEVEL, [id number] 08:51:33 Test Item Value Reference Range Interpretation Comments VANCOMYCIN TROUGH (BEAKER) (test 11.3 ug/mL 10.0-20.0 code = 522) Microsoft Architect ID - [id number] 04:31:45 Test Item Value Reference Range Interpretation Comments MAGNESIUM (BEAKER) (test code = 1.6 mg/dL 1.6-2.6 627) Microsoft Architect ID - NEIL [id number] 04:31:45 Test Item Value Reference Range Interpretation Comments PHOSPHORUS (BEAKER) (test code = 3.7 mg/dL 2.3-4.7 604) Microsoft Architect ID - NEIL MHEPATIC FUNCTION [id number] 04:31:45 Test Item Value Reference Range Interpretation [...] (test code = 16 U/L 6-55 347) Microsoft Architect ID - NEIL MBASIC METABOLIC [id number] 04:31:44 Test Item Value Reference Range Interpretation [...] not appl icable for dialysis patien ts Microsoft Architect ID - NEIL MCBC W/PLT COUNT & AUTO [id number] 03:52:06 Test Item Value Reference Range Interpretation [...] (BEAKER) (test code = 2801) U/S, ABDOMINAL, [id number] 21:12:00Abdomen limited area? Add comment if clarification is needed.->GallbladderReason for exam:->fever, abdominal pain, increased T. bili with c/f cholangitis. US to r/o CBD dilatation 2/2 choledocholithiasisShould this be performed at the bedside?->Yes [facility] 1975 Sex: MFINAL [...] Date/Time: 09/09/2022 21:12:42 RAD, ABDOMEN/KUB, 1 VIEW [id number] 15:34:00Reason for exam:->f/u abdominal pain/colonic distension [facility] 1975 Sex: MFINAL REPORT RAD, ABDOMEN/KUB, 1 VIEW AP CLINICAL INDICATION: f/u abdominal pain/colonic distension COMPARISON: CT, 09/07/2022 TECHNIQUE: Frontal radiograph(s) of the abdomen. FINDINGS: The bowel gas pattern demonstrates dilated bowel loops, favored to be colonic in nature. Evaluation for free air is limited by portable supine technique. Within these limitations, no free air is i dentified. IMPRESSION: Diffusely dilated colonic bowel loops, representing ileus or large bowel obstruction. Signed: Nate Becerra MDReport Verified Date/Time: 09/09/2022 15:34:07 Reading Location: [address] Reading Room Respiratory Panel [id number] 15:22:28 Test Item Value Reference Interpretation Comments Range Human Metapneumovirus Not detected Not detected, (test code = 64091-1) Equivocal Rhinovirus (test code Not detected Not detected, = 23495-4) Equivocal INFLUENZA A (NO SUBTYPE) (test code = 30367-6) Influenza A subtype H1 (test code = 85129-4) Influenza A Subtype H3 (test code = 78321-0) Influenza A Subtype Detected Not detected, A Droplet H1-2008 (test code = [place]. 66882-9) Oseltamivir is the drug of choice. Conside r stopping antibiotics. Influenza B (test Not detected Not detected, code = 79404-2) Equivocal Respiratory Syncytial Not detected Not detected, Virus (test code = Equivocal 71656-9) Parainfluenza Virus 1 Not detected Not detected, (test code = 68235-1) Equivocal Parainfluenza Virus 2 Not detected Not detected, (test code = 60613-7) Equivocal Parainfluenza virus 3 Not detected Not detected, (test code = 65401-3) Equivocal Parainfluenza Virus 4 Not detected Not detected, (test code = 20299-6) Equivocal Adenovirus (test code Not detected Not detected, = 62692-1) Equivocal Coronavirus 229E Not detected Not detected, (test code = 00272-3) Equivocal Coronavirus HKU1 Not detected Not detected, (test code = 35156-2) Equivocal Coronavirus NL63 Not detected Not detected, (test code = 79963-9) Equivocal Coronavirus OC43 Not detected Not detected, (test code = 02582-2) Equivocal Bordetella Pertussis Not detected Not detected, (test code = 22182-9) Equivocal Chlamydophila Not detected Not detected, Pneumoniae (test code Equivocal = 32943-9) Mycoplasma Pneumoniae Not detected Not detected, (test code = 07466-4) Equivocal Severe Acute Not detected Not detected, Clgkdylpwmy-PrO-7 Equivocal (test code = 06960-0) Bordtella Not detected Not detected, Parapertussis (test Equivocal code = 15317-4) SHANA (test code = SHANA) Other viruses and bacteria not targeted by this PCR panel cannot be excluded; therefore clinical correlation and follow up of serology, culture results, and other molecular studies is required. The results are not intended to be used as the sole means for clinical diagnosis or patient management decisions. This sample was tested at the [facility] using the [employer] Front[employer] Technology[employer] Respiratory Panel. It is FDA cleared and has been verified and approved by the [facility] for clinical use on nasopharyngeal swab specimens. The performance of the FilmArray RP has not been established in individuals who received influenza vaccine. Recent administration of a nasal influenza vaccine may cause false positive results for Influenza A and/orInfluenza B. Lab Interpretation Abnormal (test code = 56427-7) [facility] [id number] 15:22:28 Test Item Value Reference Interpretation Comments Range Human Metapneumovirus Not detected Not detected, (test code = 95423-0) Equivocal Rhinovirus (test code Not detected Not detected, = 72794-1) Equivocal INFLUENZA A (NO SUBTYPE) (test code = 21632-2) Influenza A subtype H1 (test code = 41831-3) Influenza A Subtype H3 (test code = 96412-0) Influenza A Subtype Detected Not detected, A Droplet H1-2009 (test code = [place]. [address]-2) Oseltamivir is the drug of choice. Conside r stopping antibiotics. Influenza B (test Not detected Not detected, code = 06245-3) Equivocal Respiratory Syncytial Not detected Not detected, Virus (test code = Equivocal 19217-8) Parainfluenza Virus 1 Not detected Not detected, (test code = 32882-9) Equivocal Parainfluenza Virus 2 Not detected Not detected, (test code = 04850-8) Equivocal Parainfluenza virus 3 Not detected Not detected, (test code = 39564-7) Equivocal Parainfluenza Virus 4 Not detected Not detected, (test code = 71006-2) Equivocal Adenovirus (test code Not detected Not detected, = 90575-9) Equivocal Coronavirus 229E Not detected Not detected, (test code = 63839-7) Equivocal Coronavirus HKU1 Not detected Not detected, (test code = 98228-2) Equivocal Coronavirus NL63 Not detected Not detected, (test code = 72600-6) Equivocal Coronavirus OC43 Not detected Not detected, (test code = 37292-7) Equivocal Bordetella Pertussis Not detected Not detected, (test code = 34786-9) Equivocal Chlamydophila Not detected Not detected, Pneumoniae (test code Equivocal = 85349-7) Mycoplasma Pneumoniae Not detected Not detected, (test code = 97301-7) Equivocal Severe Acute Not detected Not detected, Ytolvghwjvd-ObR-2 Equivocal (test code = 48322-0) Bordtella Not detected Not detected, Parapertussis (test Equivocal code = 58044-5) SHANA (test code = SHANA) Other viruses and bacteria not targeted by this PCR panel cannot be excluded; therefore clinical correlation and follow up of serology, culture results, and other molecular studies is required. The results are not intended to be used as the sole means for clinical diagnosis or patient management decisions. This sample was tested at the [facility] Diagnostics Laboratory using the [employer] Respiratory Panel. It is FDA cleared and has been verified and approved by the [facility]ostics [facility] for clinical use on nasopharyngeal swab specimens. The performance of the The Talk MarketArray RP has not been established in individuals who received influenza vaccine. Recent administration of a nasal influenza vaccine may cause false positive results for Influenza A and/orInfluenza B. Lab Interpretation Abnormal (test code = 53755-5) [facility] [id number] 15:22:28 Test Item Value Reference Range Interpretation [...] ACUTE Not detected Not detected, RESPIRATORY Equivocal OPERFFFV-QILVQZDQHLK-5 (test code = 2930554) BORDETELLA Not detected Not detected, PARAPERTUSSIS (BKR) Equivocal (test code = 8192695) Other viruses and bacteria not targeted by this PCR panel cannot be excluded; therefore clinical correlation and follow up of serology, culture results, and other molecular studies is required. The results are not intended to be used as the sole means for clinical diagnosis or patient management decisions. This sample was tested at the [facility] using the [employer] Respiratory Panel. It is FDA cleared and has been verified and approved by the [facility] for clinical use on nasopharyngeal swab specimens.The performance of the FilmArrayRP has not been established in individuals who received influenza vaccine. Recent administration of a nasal influenza vaccine may cause false positive results for Influenza A and/orInfluenza B.BILIRUBIN, [id number] 14:19:13 Test Item Value Reference Range Interpretation Comments BILIRUBIN DIRECT (BEAKER) (test 0.5 mg/dL 0.1-0.5 code = 706) Microsoft Architect ID - LIBBY BHEPATIC FUNCTION [id number] 11:30:00 Test Item Value Reference Range Interpretation [...] (test code = 15 U/L 6-55 347) Microsoft Architect ID - LIBBY BBASIC METABOLIC [id number] 11:29:59 Test Item Value Reference Range Interpretation [...] not appl icable for dialysis patien ts Microsoft Architect ID - LIBBY [id number] 11:29:59 Test Item Value Reference Range Interpretation Comments MAGNESIUM (BEAKER) (test code = 1.6 mg/dL 1.6-2.6 627) Microsoft Architect ID - LIBBY [id number] 11:29:59 Test Item Value Reference Range Interpretation Comments PHOSPHORUS (BEAKER) (test code = 3.2 mg/dL 2.3-4.7 604) Microsoft Architect ID - LIBBY BCBC W/PLT COUNT & AUTO [id number] 10:23:43 Test Item Value Reference Range Interpretation [...] PERCENT (BEAKER) (test code = 2801) Urine [id number] 09:37:23 Test Item Value Reference Range Interpretation Comments Result (test code = <10,000 col/mL skin 6463-4) maria del carmen [facility] [id number] 09:37:23 Test Item Value Reference Range Interpretation Comments Result (test code = <10,000 col/mL skin 6463-4) maria del carmen [facility] CenterRAD, CHEST, 1 VIEW, NON [id number] 03:15:00Reason for exam:->feverShould this be performed at the bedside?->Yes [facility] 1975 Sex: MFINAL REPORT PORTABLE AP CHEST ORDERED AT 09/08/2022 6:54 PM HISTORY: Fever. COMPARISON: Chest radiograph 11/13/2021 IMPRESSION: Heart size is normal. There is no consolidation, effusion or pneumothorax. No evidence of acute osseous abnormality. No evidence of pulmonary edema. Signed: Cyn Calle Verified Date/Time: 09/09/2022 03:15:00 Strep pneumoniae [id number] 20:38:59 Test Item Value Reference Range Interpretation Comments Strep pneumoniae Presumptive negative Presumptive Antigen (test code = [place] [address]-5) pneumonia - see pneumococcal comment pneumonia - [...] test. Lab Interpretation Normal (test code = 69982-3) [facility] [id number] 20:38:59 Test Item Value Reference Range Interpretation Comments Strep pneumoniae Presumptive negative Presumptive Antigen (test code = [place] [address]-7) pneumonia - see pneumococcal comment pneumonia - [...] test. Lab Interpretation Normal (test code = 73230-4) [facility] CampusTREP PNEUMONIAE [id number] 20:38:59 Test Item Value Reference Range Interpretation [...] detection limit of the test. LACTIC ACID, [id number] 19:00:48 Test Item Value Reference Range Interpretation Comments LACTATE BLOOD VENOUS (2) (BEAKER) 0.95 mmol/L 0.50-2.20 (test code = 2872) Microsoft Architect ID - [id number] 19:00:27 Test Item Value Reference Range Interpretation Comments PROCALCITONIN (BEAKER) (test code = < ng/mL <0.05 3036) SEPSIS RISK (ng/mL)Low: 0.05-0.50Intermediate: 0.51-2.00High: >=2.01LACTIC ACID, [id number] 18:47:20 Test Item Value Reference Range Interpretation Comments LACTATE BLOOD VENOUS (2) (BEAKER) 0.97 mmol/L 0.50-2.20 (test code = 2872) Microsoft Architect ID - EDCOMPREHENSIVE METABOLIC [id number] 05:42:03 Test Item Value Reference Range Interpretation [...] not appl icable for dialysis patien ts Microsoft Architect ID - NEIL [id number] 05:42:03 Test Item Value Reference Range Interpretation Comments MAGNESIUM (BEAKER) (test code = 1.5 mg/dL 1.6-2.6 L 627) Microsoft Architect ID - NEIL MCBC (HEMOGRAM ONLY)2022-09-08 05:11:49 [...] SARS-Co V-2 (test code = target nucleic 54538-4) acids are not detected in thi s [...] revoked sooner. Fact Sheet for Healthcare Providers: https://www.AdzCentral/Documents/Xp ert%20Xpress%20SAR S%20CoV-2/Fact%20S heets/302-3802%20S ARS-COV-2%20HEALTH CARE%20PROVIDERS%2 0FACT%20SHEET.pdf Fact Sheet for Healthcare Patients: https://www.AdzCentral/Documents/Xp ert%20Xpress%20SAR S%20CoV-2/Fact%20S heets/302-3801%20S ARS-COV-2%20PATIEN T%20FACT%20SHEET.p df Lab Interpretation Normal (test code = 04012-7) [facility] (Asymptomatic ONLY)2022-09-07 07:59:01 Test Item Value Reference Interpretation Comments Range SARS-COV2/RT-PCR Negative Negative The SARS-Co V-2 (test code = target nucleic 12211-5) acids are not detected in thi s [...] revoked sooner. Fact Sheet for Healthcare Providers: https://www.AdzCentral/Documents/Xp ert%20Xpress%20SAR S%20CoV-2/Fact%20S heets/302-3802%20S ARS-COV-2%20HEALTH CARE%20PROVIDERS%2 0FACT%20SHEET.pdf Fact Sheet for Healthcare Patients: https://www.AdzCentral/Documents/Xp ert%20Xpress%20SAR S%20CoV-2/Fact%20S heets/302-3801%20S ARS-COV-2%20PATIEN T%20FACT%20SHEET.p df Lab Interpretation Normal (test code = 47580-9) [facility])2022-09-07 07:59:01 Test Item Value Reference Range Interpretation Comments SARS-COV2/RT-PCR Negative Negative The SARS-Co V-2 target (test code = nucleic acids a re not 1904513) detected in thi s specimen. Negative result [...] revoked sooner. Fact Sheet for Healthcare Providers: https://www.Oodrive m/Documents/Xpert%20Xpress%20SARS%20CoV-2/Fact%20Sheets/302-3802%55LLMN-GPE-1%20 HEALTHCARE%20PROVIDERS%20FACT%20SHEET.pdf Fact Sheet for Healthcare Patients: https://www.AcademixDirect/Documents/Xpert%20Xp ress%20SARS%20CoV-2/Fact%20Sheets/302-3801%06YXTS-PLJ-6%20PATIENT%20FACT%20SHEET .pdfCT, [id number] 04:48:00Unlisted Reason for Exam - Click Yes and Enter Reason Below->NoIs this for enterography?->NoWill this procedure require oral contrast?->No [facility] 1975 Sex: MFINAL [...] of small bowel obstruction. Signed: Rui Burger MDReport Verified Date/Time: 04:48:11 TIC FUNCTION [id number] 04:11:49 Test Item Value Reference Range Interpretation [...] (test code = 25 U/L 6-55 347) Microsoft Architect ID - CHAMP WOperator ID Onofre OAKES [id number] 03:24:36 Test Item Value Reference Range Interpretation Comments LIPASE (BEAKER) (test code = 749) < U/L 8-78 L Microsoft Architect ID - CHAMP WBASIC METABOLIC [id number] 02:56:41 Test Item Value Reference Range Interpretation [...] not appl icable for dialysis patien ts Microsoft Architect ID - CHAMP WLACTIC ACID, [id number] 02:52:40 Test Item Value Reference Range Interpretation Comments LACTATE BLOOD VENOUS 1.11 mmol/L 0.50-2.20 Specime n slightly (2) (BEAKER) (test hemolyzed code = 7039) Microsoft Architect ID - CHAMP WCBC W/PLT COUNT & AUTO [id number] 02:31:37 Test Item Value Reference Range Interpretation [...] = 2801) Urinalysis w/Microscopic + Reflex to [id number] 02:18:03 Test Item Value Reference Range Interpretation Comments Color, UA (test code Yellow = 5778-6) Clarity, UA (test Hazy code = 5767-9) Specific [place], UA 1.028 1.001-1.035 (test code = 5811-5) pH, UA (test code = 6.0 5.0-8.0 5803-2) Protein, UA (test 20 mg/dL Negative A code = 95039-7) Glucose, UA (test 150 mg/dL Negative A code = 365) Ketones, UA (test Negative Negative code = 2514-8) Bilirubin, UA (test Negative Negative code = 23334-4) Blood, UA (test code Negative Negative = 19717-4) Nitrite, UA (test Negative Negative code = 5802-4) Leukocytes, UA (test Small Negative A code = 5799-2) Urobilinogen, UA 0.2 0.2-1.0 (test code = 50415-1) RBC, UA (test code = 15 See_Comment [Autom ated 02711-0) message] The system which generated this result [...] <1 See_Comment [Automate d (test code = 98431-3) messag e] The system which generated this [...] (test Occasional None Seen A code = 45324-9) Specimen Source (test code = 2795) SHANA (test code = SHANA) Microsoft Architect ID - [auto]Microsoft Architect ID - tech Lab Interpretation Abnormal (test code = 45651-5) [facility] Culture 2022-09-07 02:18:03 Test Item Value Reference Range Interpretation Comments Color, UA (test code Yellow = 5778-6) Clarity, UA (test Hazy code = 5767-9) Specific [place], UA 1.028 1.001-1.035 (test code = 5811-5) pH, UA (test code = 6.0 5.0-8.0 5803-2) Protein, UA (test 20 mg/dL Negative A code = 64700-1) Glucose, UA (test 150 mg/dL Negative A code = 365) Ketones, UA (test Negative Negative code = 2514-8) Bilirubin, UA (test Negative Negative code = 18280-0) Blood, UA (test code Negative Negative = 64558-9) Nitrite, UA (test Negative Negative code = 5802-4) Leukocytes, UA (test Small Negative A code = 5799-2) Urobilinogen, UA 0.2 0.2-1.0 (test code = 86434-5) RBC, UA (test code = 15 See_Comment [Autom ated 78016-6) message] The system which generated this result [...] <1 See_Comment [Automate d (test code = 47759-5) messag e] The system which generated this [...] (test Occasional None Seen A code = 36545-9) Specimen Source (test code = 2795) SHANA (test code = SHANA) Microsoft Architect ID - [auto]Microsoft Architect ID - tech Lab Interpretation Abnormal (test code = 76772-5) [facility] Reflex to Culture 2022-09-07 02:18:03 Test Item Value Reference Range Interpretation Comments Color, UA (test code Yellow = 5778-6) Clarity, UA (test Hazy code = 5767-9) Specific [place], UA 1.028 1.001-1.035 (test code = 5811-5) pH, UA (test code = 6.0 5.0-8.0 5803-2) Protein, UA (test 20 mg/dL Negative A code = 08747-4) Glucose, UA (test 150 mg/dL Negative A code = 365) Ketones, UA (test Negative Negative code = 2514-8) Bilirubin, UA (test Negative Negative code = 10381-5) Blood, UA (test code Negative Negative = 31273-9) Nitrite, UA (test Negative Negative code = 5802-4) Leukocytes, UA (test Small Negative A code = 5799-2) Urobilinogen, UA 0.2 0.2-1.0 (test code = 76506-7) RBC, UA (test code = 15 See_Comment [Autom ated 40769-8) message] The system which generated this result [...] <1 See_Comment [Automate d (test code = 99813-5) messag e] The system which generated this [...] (test Occasional None Seen A code = 89903-2) Specimen Source (test code = 2795) SHANA (test code = SHANA) Microsoft Architect ID - [auto]Microsoft Architect ID - tech Lab Interpretation Abnormal (test code = 48378-3) [facility]FLEX URINE [id number] 02:18:03 Test Item Value Reference Range Interpretation [...] = 1521) SOURCE(BEAKER) (test code = 2795) Microsoft Architect ID - [auto]Microsoft Architect ID - [facility] RESPIRATORY [id number] 13:04:52 Test Item Value Reference Range Interpretation [...] 3+ Normal respiratory maria del carmen presentCT, [id number] 05:31:00Reason for exam:->ABDOMINAL PAINReason for exam:->NAUSEAReason for exam:- >BLOATEDWhat is the patient's sedation requirement?->No Sedation [facility] : 1975 Sex: MFINAL [...] IMPRESSION: Findings consistent with constipation. Signed: Mini yL MDReportVerified Date/Time: 06/27/2022 05:31:41 [id number] 02:42:45 Test Item Value Reference Range Interpretation Comments LIPASE (BEAKER) (test code = 749) < U/L 8-78 L Microsoft Architect ID - PIAYA LHEPATIC FUNCTION [id number] 02:15:20 Test Item Value Reference Range Interpretation [...] (test code = 16 U/L 6-55 347) Microsoft Architect ID Onofre CORNELL LBASIC METABOLIC [id number] 02:15:19 Test Item Value Reference Range Interpretation [...] not appl icable for dialysis patien ts Microsoft Architect ID - PIHANS LCBC W/PLT COUNT & AUTO [id number] 01:44:55 Test Item Value Reference Range Interpretation [...] PERCENT (BEAKER) (test code = 2801) BLOOD [id number] 22:01:03 Test Item Value Reference Range Interpretation Comments CULTURE (BEAKER) (test No growth in 5 days code = 1095) BLOOD [id number] 22:01:03 Test Item Value Reference Range Interpretation Comments CULTURE (BEAKER) (test No growth in 5 days code = 1095) POC-Glucose [id number] 17:23:45 Test Item Value Reference Range Interpretation Comments POC-Glucose Meter (test 137 mg/dL 70-110 H : TE STED AT [facility] code = 1538) [address] [facility], 770 30: Microsoft Architect/Techni rian ID = [id number] for Confucianism, Kayl ynn Lab Interpretation (test Abnormal code = 19267-6) [facility] [id number] 17:23:45 Test Item Value Reference Range Interpretation Comments POC-Glucose Meter (test 137 mg/dL 70-110 H : TE STED AT [facility] code = 1538) [address] [place] [address], 770 30: Microsoft Architect/Techni rian ID = [id number] for Confucianism, Kayl ynn Lab Interpretation (test Abnormal code = 45480-4) [facility] [id number] 17:23:45 Test Item Value Reference Range Interpretation Comments POC-Glucose Meter (test 137 mg/dL 70-110 H : TE STED AT [facility] code = 1538) [address] [place] [address], 770 30: Microsoft Architect/Techni rian ID = [id number] for Confucianism, Kayl ynn Lab Interpretation (test Abnormal code = 94435-6) [facility] [id number] 17:23:45 Test Item Value Reference Range Interpretation Comments POC-GLUCOSE METER 137 mg/dL 70-110 H : TESTED A T [facility] 6720 (BEAKER) (test code = [facility], 1538) [address]: Microsoft Architect/Techni rian ID = [id number] for Ch ristian, Radha POCT-GLUCOSE [id number] 13:08:56 Test Item Value Reference Range Interpretation Comments POC-GLUCOSE METER 101 mg/dL 70-110 : TESTED A T [facility] 6720 (BEAKER) (test code = [facility], 1538) [address]: Microsoft Architect/Techni rian ID = [id number] for Ch ristian, Radha POCT-GLUCOSE [id number] 06:01:56 Test Item Value Reference Range Interpretation Comments POC-GLUCOSE METER 99 mg/dL 70-110 : TESTED A T [facility] 6720 (BEAKER) (test code = [facility], 1538) [address]: Microsoft Architect/Techni rian ID = [id number] for NAOMI NAPIER [id number] 04:54:21 Test Item Value Reference Range Interpretation Comments PHOSPHORUS (BEAKER) (test code = 2.2 mg/dL 2.3-4.7 L 604) Microsoft Architect ID - ANETA LBASIC METABOLIC [id number] 04:54:20 Test Item Value Reference Range Interpretation [...] not appl icable for dialysis patien ts Microsoft Architect ID - SANGITAH[place] [id number] 04:54:20 Test Item Value Reference Range Interpretation Comments MAGNESIUM (BEAKER) (test code = 1.5 mg/dL 1.6-2.6 L 627) Microsoft Architect ID - ANETA LCALCIUM, [id number] 04:35:35 Test Item Value Reference Range Interpretation Comments CALCIUM IONIZED (BEAKER) (test 1.21 mmol/L 1.12-1.27 code = 698) PH, BLOOD (BEAKER) (test code = 7.44 1810) CBC W/PLT COUNT & AUTO [id number] 04:29:51 Test Item Value Reference Range Interpretation [...] PERCENT (BEAKER) (test code = 2801) POCT-GLUCOSE [id number] 00:27:52 Test Item Value Reference Range Interpretation Comments POC-GLUCOSE METER 122 mg/dL 70-110 H : TESTED A T [facility] 67[address] (BEAKER) (test code = [facility], 1538) [address]: Microsoft Architect/Techni rian ID = [id number] for UL LATTIL, NAOMI POCT-GLUCOSE [id number] 17:23:54 Test Item Value Reference Range Interpretation Comments POC-GLUCOSE METER 99 mg/dL 70-110 : TESTED A T [facility] 6720 (BEAKER) (test code = [facility], 1538) [address]: Microsoft Architect/Techni rian ID = [id number] for Radha Mulligan POCT-GLUCOSE [id number] 13:00:38 Test Item Value Reference Range Interpretation Comments POC-GLUCOSE METER 109 mg/dL 70-110 : TESTED A T [facility] 67[address] (BEAKER) (test code = [facility], 1538) 00805: Microsoft Architect/Techni rian ID = [id number] for Radha Carranza POCT-GLUCOSE [id number] 08:29:30 Test Item Value Reference Range Interpretation Comments POC-GLUCOSE METER 88 mg/dL 70-110 : TESTED A T [facility] 6720 (BEAKER) (test code = [facility], 1538) [address]47[address]: Microsoft Architect/Techni rian ID = [id number] for Radha Mulligan [id number] 06:05:22 Test Item Value Reference Range Interpretation Comments MAGNESIUM (BEAKER) (test code = 1.6 mg/dL 1.6-2.6 627) Microsoft Architect ID - [id number] 06:05:22 Test Item Value Reference Range Interpretation Comments PHOSPHORUS (BEAKER) (test code = 2.5 mg/dL 2.3-4.7 604) Microsoft Architect ID - MITCHBASIC METABOLIC [id number] 06:05:21 Test Item Value Reference Range Interpretation [...] not appl icable for dialysis patien ts Microsoft Architect ID - MITCHCBC W/PLT COUNT & AUTO [id number] 05:22:05 Test Item Value Reference Range Interpretation [...] PERCENT (BEAKER) (test code = 2801) CALCIUM, [id number] 05:08:23 Test Item Value Reference Range Interpretation Comments CALCIUM IONIZED (BEAKER) (test 1.18 mmol/L 1.12-1.27 code = 698) PH, BLOOD (BEAKER) (test code = 7.42 1810) POCT-GLUCOSE [id number] 21:15:12 Test Item Value Reference Range Interpretation Comments POC-GLUCOSE METER 98 mg/dL 70-110 : TESTED A T [facility] 67[address] (BEAKER) (test code = JUSTINE CORTE[place], 1538) [address]: Microsoft Architect/Techni rian ID = [id number] for KURT JACQUES POCT-GLUCOSE [id number] 17:48:23 Test Item Value Reference Range Interpretation Comments POC-GLUCOSE METER 90 mg/dL 70-110 : TESTED A T [facility] 6720 (BEAKER) (test code = [facility], 1538) 69[address]: Microsoft Architect/Techni rian ID = [id number] for OLLIE OS, BJORN POCT-GLUCOSE [id number] 12:56:50 Test Item Value Reference Range Interpretation Comments POC-GLUCOSE METER 78 mg/dL 70-110 : TESTED A T [facility] 6720 (BEAKER) (test code = [facility], 1538) [address]: Microsoft Architect/Techni rian ID = [id number] for OLLIE OS, BJORN POCT-GLUCOSE [id number] 10:25:02 Test Item Value Reference Range Interpretation Comments POC-GLUCOSE METER 86 mg/dL 70-110 : TESTED A T [facility] [address] (BEAKER) (test code = [facility], 1538) 388[address]: Microsoft Architect/Techni rian ID = [id number] for KOLL EADE, RITCHEL POCT-GLUCOSE [id number] 08:38:42 Test Item Value Reference Range Interpretation Comments POC-GLUCOSE METER 39 mg/dL 70-110 LL : TESTED A T [facility] [address] (BEAKER) (test code = [facility], 1538) 12785: Microsoft Architect/Techni rian ID = [id number] for OLLIE OS, BJORN BASIC METABOLIC [id number] 06:19:55 Test Item Value Reference Range Interpretation [...] 30-44 G4 Severl y decreased 15-29 G5 Kidne y failure <15Reported eGF R is based on the CKD-EPI 202 equation that d oes not use a race coefficientEsti mated GFR is not as accur ate as Creatinine Collette samy in predicting glom erular filtration rate . Estimated GFR is not appl icable for dialysis patien ts Microsoft Architect ID - ANETA [id number] 06:19:55 Test Item Value Reference Range Interpretation Comments MAGNESIUM (BEAKER) (test code = 1.7 mg/dL 1.6-2.6 627) Microsoft Architect ID - ANETA [id number] 06:19:55 Test Item Value Reference Range Interpretation Comments PHOSPHORUS (BEAKER) (test code = 2.7 mg/dL 2.3-4.7 604) Microsoft Architect ID - ANETA LCALCIUM, [id number] 05:32:18 Test Item Value Reference Range Interpretation Comments CALCIUM IONIZED (BEAKER) (test 1.17 mmol/L 1.12-1.27 code = 698) PH, BLOOD (BEAKER) (test code = 7.38 1810) CBC W/PLT COUNT & AUTO [id number] 05:17:46 Test Item Value Reference Range Interpretation [...] PERCENT (BEAKER) (test code = 2801) POCT-GLUCOSE [id number] 21:21:38 Test Item Value Reference Range Interpretation Comments POC-GLUCOSE METER 83 mg/dL 70-110 : TESTED A T [facility] 67[address] (BEAKER) (test code = [facility] [place], 1538) 100[address]: Microsoft Architect/Techni rian ID = [id number] for KURT JACQUES POCT-GLUCOSE [id number] 17:35:25 Test Item Value Reference Range Interpretation Comments POC-GLUCOSE METER 92 mg/dL 70-110 : TESTED A T [facility] 67[address] (BEAKER) (test code = [place], 1538) [address]: Microsoft Architect/Techni rian ID = [id number] for BJORN SANCHES POCT-GLUCOSE [id number] 12:27:21 Test Item Value Reference Range Interpretation Comments POC-GLUCOSE METER 86 mg/dL 70-110 : TESTED A T [facility] 6720 (BEAKER) (test code = JUSTINE Ha [facility], 1538) [address]: Microsoft Architect/Techni rian ID = [id number] for ABDIRASHID ANGEL BASIC METABOLIC [id number] 05:55:16 Test Item Value Reference Range Interpretation [...] not appl icable for dialysis patien ts Microsoft Architect ID - NEIL [id number] 05:55:16 Test Item Value Reference Range Interpretation Comments MAGNESIUM (BEAKER) (test code = 1.4 mg/dL 1.6-2.6 L 627) Microsoft Architect ID - NEIL MCBC W/PLT COUNT & AUTO [id number] 04:55:50 Test Item Value Reference Range Interpretation [...] code = nucleic acids a re not 3860462) detected in thi s specimen. Negative result [...] revoked sooner. Fact Sheet for Healthcare Providers: https://www.Errund.c om/Documents/Xpert%20Xpress%20SARS%20CoV-2/Fact%20Sheets/918-2570%69ZQKQ-ZCQ-1%2 0HEALTHCARE%20PROVIDERS%20FACT%20SHEET.pdf Fact Sheet for Healthcare Patients: https://www.AcademixDirect/Documents/Xpert%20X press%20SARS%20CoV-2/Fact%20Sheets/302-3801%54UCRN-RGS-0%20PATIENT%20FACT%20SHESagar RodríguezCT, [id number] 23:39:00Unlisted Reason for Exam - Click Yes and Enter Reason Below->NoIs this for enterography?->NoWill this procedure require oral contrast?->No [facility] : 1975 Sex: MFINAL [...] with cystic fibrosis and pancreatic insufficiency. Signed: Carmelo Mosley MDReport Verified Date/Time: 06/18/2022 23:39:49 POCT-GLUCOSE [id number] 23:35:19 Test Item Value Reference Range Interpretation Comments POC-GLUCOSE METER 105 mg/dL 70-110 : TESTED A T [facility] 6720 ([facility]) (test code [facility], = 1538) [address]: Microsoft Architect/Techni rian ID = [id number] for SABINE WOODS [id number] 21:52:33 Test Item Value Reference Range Interpretation Comments PARTIAL THROMBOPLASTIN TIME 31.4 seconds 22.5-36.0 (BEAKER) (test code = 760) PROTHROMBIN TIME/[id number] 21:51:51 Test Item Value Reference Range Interpretation Comments PROTIME (BEAKER) 18.2 seconds 11.9-14.2 H (test code = 759) INR (BEAKER) (test 1.61 See_Comment [Automat ed message] code = 370) The system Duolingo generated this result transmitted ref erence range: [...] not appl icable for dialysis patien ts Microsoft Architect ID - NEIL MLACTIC ACID, [id number] 21:36:08 Test Item Value Reference Range Interpretation Comments LACTATE BLOOD VENOUS 1.03 mmol/L 0.50-2.20 Specime n slightly (2) (BEAKER) (test hemolyzed code = 2518) Microsoft Architect ID - HARLEY MCBC W/PLT COUNT & AUTO [id number] 21:29:50 Test Item Value Reference Range Interpretation [...] (test code = No acid fast bacilli 30147-5) [facility]sp[facility] only[facility]2022-03-05 13:13:42 Test Item Value Reference Range Interpretation Comments Result (test code = No acid-fast bacilli 6463-4) isolated in 42 days AFB Smear (test code = No acid fast bacilli 36217-9) [facility] (sputum only)2022-03-05 13:13:42 Test Item Value Reference Range Interpretation Comments Result (test code = No acid-fast bacilli 6463-4) isolated in 42 days AFB Smear (test code = No acid fast bacilli 70377-5) [facility] (sputum only)2022-03-05 13:13:42 Test Item Value Reference Range Interpretation Comments Result (test code = No acid-fast bacilli 6463-4) isolated in 42 days AFB Smear (test code = No acid fast bacilli 30918-6) [facility] SMEAR (SPUTUM ONLY)2022-03-05 13:13:42 Test [...] code = 994) seen Fungus culture + [id number] 17:15:11 Test Item Value Reference Range Interpretation Comments Result (test code = No fungus isolated in 6463-4) 28 days Fungus Smear (test No fungi seen code = 1406) [facility] + [id number] 17:15:11 Test Item Value Reference Range Interpretation Comments Result (test code = No fungus isolated in 6463-4) 28 days Fungus Smear (test No fungi seen code = 1406) [facility] + [id number] 17:15:11 Test Item Value Reference Range Interpretation Comments Result (test code = No fungus isolated in 6463-4) 28 days Fungus Smear (test No fungi seen code = 1406) [facility] + [id number] 17:15:11 Test Item Value Reference Range Interpretation Comments Result (test code = No fungus isolated in 6463-4) 28 days Fungus Smear (test No fungi seen code = 1406) [facility] + [id number] 17:15:11 Test Item Value Reference Range Interpretation Comments CULTURE (BEAKER) (test No fungus isolated in code = 1095) 28 days FUNGUS SMEAR (BEAKER) No fungi seen (test code = 1406) FUNGUS CULTURE + [id number] 23:48:39 Test Item Value Reference Range Interpretation Comments CULTURE (BEAKER) (test No fungus isolated in code = 1095) 28 days FUNGUS SMEAR (BEAKER) No fungi seen (test code = 1406) [facility] RESPIRATORY [id number] 09:35:46 Test Item Value Reference Interpretation Comments [...] 4+ Normal respiratory maria del carmen presentSPIN/CONCENTRATION [id number] 06:58:03 Test Item Value Reference Range Interpretation Comments Concentration charged (test code = Done 2657) [facility] [id number] 06:58:03 Test Item Value Reference Range Interpretation Comments Concentration charged (test code = Done 7) [facility] [id number] 06:58:03 Test Item Value Reference Range Interpretation Comments Concentration charged (test code = Done 7) [facility] [id number] 06:58:03 Test Item Value Reference Range Interpretation Comments Concentration charged (test code = Done 7) [facility] [id number] 06:58:03 Test Item Value Reference Range Interpretation Comments CONCENTRATION CHARGED (BEAKER) (test Done code = 2657) [facility] RESPIRATORY [id number] 12:17:43 Test Item Value Reference Interpretation Comments [...] S [Auto mated message] 1) The system whBuz generated this result transmit joann reference range : Susceptible 0-1 6 , Resistant <0 or >16 . The reference range was not u sed to interpret th is result as normal/abnormal . Aztreonam (test code See_Comment S [Autom ated message] = 32) The system Duolingo generated this result transmit joann reference range : Susceptible 0-8 , Resistant <0 or >8 . The reference r taurus was not used to interpret this result as normal/abnormal . Cefepime (test code = See_Comment R [Auto mated message] 51) The system Duolingo generated this result transmit joann reference range : Susceptible 0-8 , Resistant <0 or >8 . The reference r taurus was not used to interpret this result as normal/abnormal . Ceftazidime (test See_Comment S [Automate d message] code = 27) The system Duolingo generated this result transmit joann reference range : Susceptible 0-8 , Resistant <0 or >8 . The reference r taurus was not used to interpret this result as normal/abnormal . Ciprofloxacin (test See_Comment S [Automa joann message] code = 7) The system Duolingo generated this result transmit joann reference range : Susceptible 0-0 .5 , Resistant <0 or >.5 . The reference range was not u sed to interpret th is result as normal/abnormal . Doripenem (test code See_Comment S [Autom ated message] = 100) The system Duolingo generated this result transmit joann reference range : Susceptible 0-2 , Resistant <0 or >2 . The reference r taurus was not used to interpret this result as normal/abnormal . Gentamicin (test code See_Comment S [Auto mated message] = 18) The system Duolingo generated this result transmit joann reference range : Susceptible 0-4 , Resistant <0 or >4 . The reference r taurus was not used to interpret this result as normal/abnormal . Imipenem (test code = See_Comment S [Auto mated message] 19) The system Duolingo generated this result transmit joann reference range : Susceptible 0-2 , Resistant <0 or >2 . The reference r taurus was not used to interpret this result as normal/abnormal . Levofloxacin (test See_Comment S [Automat ed message] code = 22) The system Duolingo generated this result transmit joann reference range : Susceptible 0-1 , Resistant <0 or >1 . The reference r taurus was not used to interpret this result as normal/abnormal . Meropenem (test code See_Comment S [Autom ated message] = 34) The system Duolingo generated this result transmit joann reference range : Susceptible 0-2 , Resistant <0 or >2 . The reference r taurus was not used to interpret this result as normal/abnormal . Piperacillin (test See_Comment S [Automat ed message] code = 24) The system Duolingo generated this result transmit joann reference range [...] [Auto mated message] = 25) The system Duolingo generated this result transmit joann reference range : Susceptible 0-4 , Resistant <0 or >4 . The reference r taurus was not used to interpret this result as normal/abnormal . 3+ Normal respiratory maria del carmen presentSPIN/CONCENTRATION [id number] 11:16:43 Test Item Value Reference Range Interpretation Comments CONCENTRATION CHARGED (BEAKER) (test Done code = 2657) RAD, ABDOMEN/KUB, 1 VIEW [id number] 07:57:00Reason for exam:->Ileus [facility] CENTERName: MONICA RIVERAReyna SALAS : 1975 Sex: MFINAL REPORT RAD, ABDOMEN/KUB, [...] MDReport Verified Date/Time: 12/06/2021 07:57:20 Basic Metabolic [id number] 06:04:20 Test Item Value Reference Range Interpretation [...] Calcium (test code = 8.8 mg/dL 8.4-10.2 20787-2) EGFR (test code = 85 mL/min/1.73 [place] [address]-2) NOT ACCURATE CREATININE CLEARANCE IN PREDICTING GLOMERULAR FILTRATION RATE . ESTIMATED GFR I S NOT APPLICABLE FOR DIALYSIS PATIENTS. SHANA (test code = SHANA) Microsoft Architect ID - DB Lab Interpretation Abnormal (test code = 11827-8) [facility] [id number] 06:04:20 Test Item Value Reference Range Interpretation [...] S NOT APPLICABLE FOR DIALYSIS PATIEN TS. Microsoft Architect ID - DBCBC (Hemogram only)2021-12-06 05:34:09 Test Item Value Reference Range Interpretation Comments WBC (test code = 6690-2) 6.3 See_Comment [A utomated message] The system Duolingo generated this result transmitted ref erence range: 3.5 - 10 .5 K/L. The refe rence range was not u sed to interpret this result as normal/abnor mal. RBC (test code = 789-8) 3.96 See_Comment L [Au tomated message] The system Duolingo generated this result transmitted ref erence range: 4.63 - 6 .08 M/L. The refe rence range was not u sed to interpret this result as normal/abnor mal. MCHC (test code = 786-4) 34.3 See_Comment L [A utomated message] The system Duolingo generated this result transmitted ref erence range: [...] code = 267 See_Comment [Aut omated message] 207-3) The system Duolingo generated this result transmitted ref erence range: 150 - 45 0 K/CU MM. The referen ce range was not u sed to interpret this result as normal/abnor mal. MPV (test code = 10.6 fL 9.4-12.4 60494-7) nRBC (test code = 413) 0 See_Comment [Aut omated message] The system Duolingo generated this result transmitted ref erence range: 0 - 0 /1 00 WBC. The refere nce range was not u sed to interpret this result as normal/abnor mal. Lab Interpretation (test Abnormal code = 98932-9) [facility] (Hemogram only)2021-12-06 05:34:09 Test Item Value Reference Range Interpretation Comments WBC (test code = 6690-2) 6.3 See_Comment [A utomated message] The system Duolingo generated this result transmitted ref erence range: 3.5 - 10 .5 K/L. The refe rence range was not u sed to interpret this result as normal/abnor mal. RBC (test code = 789-8) 3.96 See_Comment L [Au tomated message] The system Duolingo generated this result transmitted ref erence range: 4.63 - 6 .08 M/L. The refe rence range was not u sed to interpret this result as normal/abnor mal. MCHC (test code = 786-4) 34.3 See_Comment L [A utomated message] The system Duolingo generated this result transmitted ref erence range: [...] code = 267 See_Comment [Aut omated message] 067-3) The system Duolingo generated this result transmitted ref erence range: 150 - 45 0 K/CU MM. The referen ce range was not u sed to interpret this result as normal/abnor mal. MPV (test code = 10.6 fL 9.4-12.4 99918-7) nRBC (test code = 413) 0 See_Comment [Aut omated message] The system Duolingo generated this result transmitted ref erence range: 0 - 0 /1 00 WBC. The refere nce range was not u sed to interpret this result as normal/abnor mal. Lab Interpretation (test Abnormal code = 38951-9) [facility] (HEMOGRAM ONLY)2021-12-06 05:34:09 Test Item [...] 0-0 (BEAKER) (test code = 413) POC-Glucose [id number] 17:51:28 Test Item Value Reference Range Interpretation Comments POC-Glucose Meter (test 137 mg/dL 70-110 H : TE STED AT [facility] code = 1538) [address] [place], [address]: Microsoft Architect/Techni rian ID = [id number] for Мария Lara Lab Interpretation (test Abnormal code = 15314-9) [facility] [id number] 17:51:28 Test Item Value Reference Range Interpretation Comments POC-GLUCOSE METER 137 mg/dL 70-110 H : TESTED Lillian Méndez [facility] 6720 (BEAKER) (test code = [place], 1538) [address]: Microsoft Architect/Techni rian ID = [id number] for Мария Barroso SARS-CoV2/RT-PCR (Asymptomatic ONLY)2021-12-05 17:31:06 Test Item Value Reference Range Interpretation Comments SARS-COV2/RT-PCR Negative Not Detected, (test code = Negative, See 96229-3) external report for linked test SARS-COV-2 [facility] TERI PERFORMING LAB (test code = 94506-8) SHANA (test code = Negative result for [...] of the Act. Fact Sheet for Healthcare Providers:https://www.Building [employer] CRE.Nifti/sites/default/f laureano/product/documents/F act_Sheet_HC_Providers_L xhv_AUQZ-AnF-1.pdf Fact Sheet for Healthcare Patients:https://www.SetMeUp/sites/default/fi les/product/documents/Fa ct_Sheet_Patients_Lyra_S ARS-CoV-2.pdf Performing Laboratory:[facility] [place] [address] [facility])2021-12-05 17:31:06 Test Item Value Reference Range Interpretation Comments SARS-COV2/RT-PCR (test Negative Not Detected, Negative, code = 9195060) See external report for linked test SARS-COV-2 PERFORMING LAB [facility] TER[facility] (test code = 1756168) Negative result for this test determines that [...] of the Act.Fact Sheet for Healthcare Prov iders:https://www.ViS/sites/default/files/product/documents/Fact_Sheet_HC _Xppfzvnms_Ordg_QPVM-FuJ-3.pdfFact Sheet for Healthcare Patients:https://www.ViS/sites/default/files/product/docume nts/Vmnc_Uhcli_Kbjgjmtd_Yfnm_YRXD-TpV-2.pdfPerforming Laboratory:[facility], [place] [address]SB, [id number] 10:17:00Unlisted Reason for Exam - Click Yes and Enter Reason Below->NoIs this for enterography?->NoWill this procedure require oral contrast?->No [facility] : 1975 Sex: MFINAL REPORT CT abdomen and pelvis with contrast History: Acute abdominal pain Comparison: 11/25/2021 Technique: serial axial imaging was performed following up to 100cc of non ionic iodinated intravenous contrast as per departmental protocol. Multiplanar images are reconstructed and reviewed when indicated. This CT examination is performed using one or more of the following dose reduction techniques: Automated exposure control, adjustment of the mA and /or kV according to patient size, and/or use of iterative reconstruction technique. Findings:Fatty replacement of the pancreas,suggesting underlying cystic fibrosis. No pancreatic ductal dilation or mass. Spleen appears normal in size, without focal abnormality. Unremarkable appearance of liver and gallbladder. Bilateral nonobstructing nephrolithiasis. Otherwise, unremarkable appearance of the kidneys, ureters, and bladder. .Moderate diffuse large bowel dilation, with significant colonic stool. The small bowel is also moderately dilated, measuring up to 6.8 cm in caliber. No free fluid or lymphadenopathy. No abdominal aortic aneurysm. No aggressive osseous lesion. Impression:Moderate diffuse small and large bowel dilation, without transition point, likely related to underlying motility disorder or ileus. The findings are similar in appearance to 11/25/2021. Significant retained stool is seen throughout the colon. Signed:Bennett Tran MDReport Verified Date/Time: 12/05/2021 10:17:33 Reading Location: [facility] [id number] Ortho Consult Reading Room Comprehensive metabolic [id number] 08:12:08 Test Item Value Reference Range Interpretation Comments Protein, Total (test 7.8 See_Comment [Autom ated code = 2885-2) message] The system which generated this result transmit joann reference range : 6.0 - 8.3 gm/dL . The reference range was not u sed to interpret th is result as normal/abnormal . Albumin (test code = 4.2 g/dL 3.5-5.0 26950-2) Alkaline Phosphatase 94 U/L 40-150 (test code = 6768-6) Total Bilirubin (test 1.0 mg/dL 0.2-1.2 code = 1975-2) Sodium (test code = 133 meq/L 136-145 L 2951-2) Potassium (test code 4.0 meq/L 3.5-5.1 = 2823-3) Chloride (test code = 108 meq/L 98-107 H 2074-0) CO2 (test code = 19 meq/L 22-29 L 8-9) BUN (test code = 22 mg/dL 7-21 H 3094-0) Creatinine (test code 1.20 mg/dL 0.57-1.25 = 2160-0) Glucose (test code = 127 mg/dL 70-105 H 2345-7) Calcium (test code = 9.4 mg/dL 8.4-10.2 28337-4) AST (test code = 15 U/L 5-34 1920-8) ALT (test code = 14 U/L 6-55 1742-6) EGFR (test code = 79 mL/min/1.73 [place] [address]-2) NOT ACCURATE CREATININE CLEARANCE IN PREDICTING GLOMERULAR FILTRATION RATE . ESTIMATED GFR I S NOT APPLICABLE FOR DIALYSIS PATIEN TS. SHANA (test code = SHANA) Microsoft Architect ID - NEIL M Lab Interpretation Abnormal (test code = 93462-5) [facility] 08:12:08 Test Item Value Reference Range Interpretation Comments Lipase (test code = 4 U/L 8-78 L 3040-3) SHANA (test code = SHANA) Microsoft Architect ID - NEIL M Lab Interpretation (test Abnormal code = 28202-9) [facility] [id number] 08:12:08 Test Item Value Reference Range Interpretation [...] 5-34 (test code = 353) ALT (SGPT) (CLARKAKER) 14 U/L 6-55 (test code = 347) EGFR (BEAKER) (test 79 mL/min/1.73 ESTIMA JOANN GFR IS code = 1092) sq m NOT ACCURATE CREATININE CLEARANCE IN PREDICTING GLOMERULAR FILTRATION RATE . ESTIMATED GFR I S NOT APPLICABLE FOR DIALYSIS PATIEN TS. Microsoft Architect ID - NEIL [id number] 08:12:08 Test Item Value Reference Range Interpretation Comments LIPASE (BECONSUELO) (test code = 749) 4 U/L 8-78 L Microsoft Architect ID - NEIL MCBC with platelet count + automated [id number] 07:54:26 Test Item Value Reference Range Interpretation Comments WBC (test code = 6690-2) 7.2 See_Comment [A utomated message] The system Duolingo generated this result transmitted ref erence range: 3.5 - 10 .5 K/L. The refe rence range was not u sed to interpret this result as normal/abnor mal. RBC (test code = 789-8) 4.53 See_Comment L [Au tomated message] The system Duolingo generated this result transmitted ref erence range: 4.63 - 6 .08 M/L. The refe rence range was not u sed to interpret this result as normal/abnor mal. MCHC (test code = 786-4) 32.0 See_Comment L [A utomated message] The system Duolingo generated this result transmitted ref erence range: [...] See_Comment [Aut omated message] 777-3) The system Duolingo generated this result transmitted ref erence range: 150 - 45 0 K/CU MM. The referen ce range was not u sed to interpret this result as normal/abnor mal. MPV (test code = 10.4 fL 9.4-12.4 32218-5) nRBC (test code = 413) 0 See_Comment [Aut omated message] The system Duolingo generated this result transmitted ref erence range: [...] See_Comment [Aut omated message] 670) The system Duolingo generated this result transmitted ref erence range: 1.78 - 5 .38 K/L. The refe rence range was not u sed to interpret this result as normal/abnor mal. # Lymphs (test code = 1.62 See_Comment [Auto mated message] 414) The system Duolingo generated this result transmitted ref erence range: 1.32 - 3 .57 K/L. The refe rence range was not u sed to interpret this result as normal/abnor mal. # Monos (test code = 0.83 See_Comment H [Autom ated message] 415) The system Duolingo generated this result transmitted ref erence range: 0.30 - 0 .82 K/L. The refe rence range was not u sed to interpret this result as normal/abnor mal. # Eos (test code = 416) 0.14 See_Comment [Au tomated message] The system Duolingo generated this result transmitted ref erence range: 0.04 - 0 .54 K/L. The refe rence range was not u sed to interpret this result as normal/abnor mal. # Baso (test code = 417) 0.05 See_Comment [A utomated message] The system Duolingo generated this result transmitted ref erence range: 0.01 - 0 .08 K/L. The refe rence range was not u sed to interpret this result as normal/abnor mal. Immature 0 % 0-1 Granulocytes-Relative (test code = 2801) Lab Interpretation (test Abnormal code = 63155-5) [facility] W/PLT COUNT & AUTO [id number] 07:54:26 Test Item Value Reference Range Interpretation [...] code = 2801) RAD, ABDOMEN/KUB, 1 VIEW [id number] 14:09:00Reason for exam:->assess for improvement in bowel distension and stool burden [facility] : 1975 Sex: MFINAL [...] the limitations of this study. Signed: Candelario Sosa MDReport Verified Date/Time: 11/30/2021 14:09:22 Reading Location: [facility] Radiology Reading Room [facility] [id number] 09:26:15 Test Item Value Reference Range Interpretation [...] S NOT APPLICABLE FOR DIALYSIS PATIEN TS. Microsoft Architect ID - DBBASIC METABOLIC [id number] 06:08:04 Test Item Value Reference Range Interpretation [...] S NOT APPLICABLE FOR DIALYSIS PATIEN TS. Microsoft Architect ID - BSCBC W/PLT COUNT & AUTO [id number] 05:40:30 Test Item Value Reference Range Interpretation [...] 2801) SARS-COV2/RT-PCR ([facility])2021-11-25 10:17:30 Test Item Value Reference Range Interpretation Comments SARS-COV2/RT-PCR (test Negative Not Detected, Negative, code = 2248058) See external report for linked test SARS-COV-2 PERFORMING LAB [facility] TERI (test code = 0451759) Negative result for this test determines that [...] of the Act.Fact Sheet for Healthcare Prov iders:https://www.SecureWaters.com/sites/default/files/product/documents/Fact_Sheet_HC _Xzzppkfmf_Pwrv_JEGI-ViQ-5.pdfFact Sheet for Healthcare Patients:https://www.SecureWaters.com/sites/default/files/product/docume nts/Nhmv_Glfrw_Plhsugsr_Vgdu_KTVH-UtP-4.pdfPerforming Laboratory:[facility], [place] [address]MH, [id number] 03:54:00Unlisted Reason for Exam - Click Yes and Enter Reason Below->NoIs this for enterography?->NoWill this procedure require oral contrast?->No [facility] 1975 Sex: MFINAL [...] Vizcarra MDRepor t Verified Date/Time: 11/25/2021 03:54:25 [id number] 02:50:36 Test Item Value Reference Range Interpretation Comments LIPASE (BEAKER) (test code = 749) < U/L 8-78 L Microsoft Architect ID - BSOperator ID - NEIL MHigh Sens Trop I ([facility] 2021-11-25 01:59:11 Test Item Value Reference Range Interpretation Comments Troponin I HS (test <4 See_Comment [Automa joann code = 80550-6) message] The system which generated this result transmitted reference range : <=35 pg/ml. The reference range was not used to interpret this result as normal/abnormal . SHANA (test code = Microsoft Architect ID - SHANA) BSThe PRIMING MIXTURE CARRIER STAT High Sensitivity Troponin-I results should be used in conjunction with other diagnostic information such as ECG, clinical observations and information, and patient symptoms to aid in the diagnosis of CO. Lab Interpretation Normal (test code = 94180-7) [facility] ([facility]Luisa [facility])2021-11-25 01:59:11 Test Item Value Reference Range Interpretation Comments Troponin I HS (test <4 See_Comment [Automa joann code = 94020-5) message] The system which generated this result transmitted reference range : <=35 pg/ml. The reference range was not used to interpret this result as normal/abnormal . SHANA (test code = Microsoft Architect ID - SHANA) BSThe PRIMING MIXTURE CARRIER STAT High Sensitivity Troponin-I results should be used in conjunction with other diagnostic information such as ECG, clinical observations and information, and patient symptoms to aid in the diagnosis of CO. Lab Interpretation Normal (test code = 97237-2) [facility] ([facility]Luisa Only)2021-11-25 01:59:11 Test Item Value Reference Range Interpretation Comments Troponin I HS (test <4 See_Comment [Automa joann code = 73403-9) message] The system which generated this result transmitted reference range : <=35 pg/ml. The reference range was not used to interpret this result as normal/abnormal . SHANA (test code = Microsoft Architect ID - SHANA) BSThe PRIMING MIXTURE CARRIER STAT High Sensitivity Troponin-I results should be used in conjunction with other diagnostic information such as ECG, clinical observations and information, and patient symptoms to aid in the diagnosis of CO. Lab Interpretation Normal (test code = 16251-0) [facility] ([facility]isa Only)2021-11-25 01:59:11 Test Item Value Reference Range Interpretation Comments Troponin I HS (test <4 See_Comment [Automa joann code = 93107-9) message] The system which generated this result transmitted reference range : <=35 pg/ml. The reference range was not used to interpret this result as normal/abnormal . SHANA (test code = Microsoft Architect ID - SHANA) BSThe PRIMING MIXTURE CARRIER STAT High Sensitivity Troponin-I results should be used in conjunction with other diagnostic information such as ECG, clinical observations and information, and patient symptoms to aid in the diagnosis of CO. Lab Interpretation Normal (test code = 19145-2) [facility] CenterH[facility]IT[facility] TROPONIN [id number] 01:59:11 Test Item Value Reference Range Interpretation Comments HIGH SENSITIVITY < pg/ml See_Comment [Automated message] TROPONIN I (test code = The system which 6880807) generated this result transmitted ref erence range: <=35. Th e reference range was not used to interpr et this result as normal/abnormal . Microsoft Architect ID - BSThe PRIMING MIXTURE CARRIER STAT High Sensitivity Troponin-I results should be used in conjunctionwith other diagnostic information such as ECG, clinical observations and information, and patient symptoms to aid in the diagnosis of CO.Glmljcraq2537-03-98 01:52:12 Test Item Value Reference Range Interpretation Comments Magnesium (test code = 1.7 mg/dL 1.6-2.6 Speci men 35934-5) slightly hemolyzed SHANA (test code = SHANA) Microsoft Architect ID - BS Lab Interpretation Normal (test code = 77120-9) [facility] CenterMAGNESIUM2022-02-16 01:52:12 Test Item Value Reference Range Interpretation Comments MAGNESIUM (BEAKER) 1.7 mg/dL 1.6-2.6 Specimen slightly (test code = 627) hemolyzed Microsoft Architect ID - BSCOMPREHENSIVE METABOLIC [id number] 01:52:12 Test Item Value Reference Range Interpretation [...] S NOT APPLICABLE FOR DIALYSIS PATIEN TS. Microsoft Architect ID - BSCBC W/PLT COUNT & AUTO [id number] 01:21:26 Test Item Value Reference Range Interpretation [...] PERCENT (BEAKER) (test code = 2801) Urine [id number] 12:15:43 Test Item Value Reference Range Interpretation Comments Result (test code = 6463-4) No growth [facility] CenterUrine [id number] 12:15:43 Test Item Value Reference Range Interpretation Comments Result (test code = 6463-4) No growth [facility] CenterURINE [id number] 12:15:43 Test Item Value Reference Range Interpretation Comments CULTURE (BEAKER) (test code = 1095) No growth SARS-COV2/RT-PCR ([facility])2021-11-14 08:14:56 Test Item Value Reference Range Interpretation Comments SARS-COV2/RT-PCR (test Negative Not Detected, Negative, code = 5057861) See external report for linked test SARS-COV-2 PERFORMING LAB [facility] TER[facility] (test code = 2177823) Negative result for this test determines that [...] of the Act.Fact Sheet for Healthcare Prov iders:https://www.ViS/sites/default/files/product/documents/Fact_Sheet_HC _Hixvbhlkv_Lpys_PAZD-KqE-8.pdfFact Sheet for Healthcare Patients:https://www.ViS/sites/default/files/product/docume nts/Vava_Wquet_Rskukupk_Xbho_WLFJ-HnG-0.pdfPerforming Laboratory:[facility], [place] [address]WA, [id number] 00:42:00Unlisted Reason for Exam - Click Yes and Enter Reason Below->NoIs this for enterography?->NoWill this procedure require oral contrast?->No [facility] : 1975 Sex: MFINAL [...] Bilateral nonobstructing kidney stones. Signed: Ronen Vizcarra MDReport Verified Date/Time: 11/14/2021 00:42:44 COMPREHENSIVE METABOLIC [id number] 23:34:07 Test Item Value Reference Range Interpretation [...] S NOT APPLICABLE FOR DIALYSIS PATIEN TS. Microsoft Architect ID - [id number] 23:34:07 Test Item Value Reference Range Interpretation Comments LIPASE (BEAKER) (test code = 749) 5 U/L 8-78 L Microsoft Architect ID - [id number] 23:34:06 Test Item Value Reference Range Interpretation Comments MAGNESIUM (BEAKER) 1.5 mg/dL 1.6-2.6 L Specimen slightly (test code = 627) hemolyzed Microsoft Architect ID - DBUrinalysis w/Microscopic + Reflex to [id number] 23:00:38 Test Item Value Reference Range Interpretation Comments Color, UA (test code Yellow = 5778-6) Clarity, UA (test Clear code = 5767-9) Specific [place], UA 1.024 1.001-1.035 (test code = 5811-5) pH, UA (test code = 6.0 5.0-8.0 5803-2) Protein, UA (test Negative Negative code = 49200-1) Glucose, UA (test Negative Negative code = 365) Ketones, UA (test Negative Negative code = 2514-8) Bilirubin, UA (test Negative Negative code = 35555-6) Blood, UA (test code Negative Negative = 76265-4) Nitrite, UA (test Negative Negative code = 5802-4) Leukocytes, UA (test Negative Negative code = 5799-2) Urobilinogen, UA 2.0 mg/dL 0.2-1.0 H (test code = 33320-9) RBC, UA (test code = <1 See_Comment [Autom ated 59450-5) message] The system which generated this result [...] Bacteria, UA (test None Seen code = 81852-8) Crystals, Urine (test None Seen code = 16614-7) Amorphous Crystals Occasional (test code = 83781-5) Specimen Source (test code = 2795) SHANA (test code = SHANA) Microsoft Architect ID - [auto]Microsoft Architect ID - tech Lab Interpretation Abnormal (test code = 78653-4) [facility] [id number] 23:00:38 Test Item Value Reference Range Interpretation [...] = 1584) SOURCE(BEAKER) (test code = 2795) Microsoft Architect ID - [auto]Microsoft Architect ID - techRAD, CHEST, 1 VIEW, NON [id number] 22:26:00Reason for exam:->ABDOMINAL PAINShould this be performed at the bedside?->Yes[facility] : 1975 Sex: MFINAL REPORT Chest, 1 view. History: Abdominal pain Comparison: Plain radiographthe chest dated 01/06/2021. Findings: The cardiomediastinal silhouette and pulmonary vasculature are within normal limits for a portable exam. The lungs are clear without evidence of consolidation or effusion. The soft tissues and osseous structures are intact. IMPRESSION: No acute cardiopulmonary abnor mality. Signed: Debbie Ding [facility] Verified Date/Time: 11/13/2021 22:26:25 RAD, ABDOMEN/KUB, 1 VIEW [id number] 22:25:00Reason for exam:- >ABDOMINAL PAINShould this be performed at the bedside?->Yes [facility] CAR[facility]OS [facility]IVERATIARA SALAS : 1975 Sex: MFINAL REPORT CLINICAL HISTORY: Abdominal pain COMPARISON: 08/05/2021 FINDINGS: 2supine images of the abdomen are submitted. The abdominal bowel gas pattern is nonspecific. There are some dilated, gas-filled bowel loops overlying the left abdomen. A moderate volume of stool and gasis present elsewhere within the bowel. This could relate to enteritis or ileus, however, an early orpartial bowel obstruction is not definitely excluded. Further evaluation with CT of the abdomen and pelvis can be performed, if indicated. A surgical clip overlies the right mid to lower abdomen. Thereis no acute osseous abnormality. Signed: Ronen Vizcarra MDReport Verified Date/Time: 11/13/2021 22:25:42 CBC W/PLT COUNT & AUTO [id number] 22:21:01 Test Item Value Reference Range Interpretation [...] 0-1 PERCENT (BEAKER) (test code = 2801) [id number] 06:27:23 Test Item Value Reference Range Interpretation Comments Phosphorus (test code = 3.2 mg/dL 2.3-4.7 2777-1) SHANA (test code = SHANA) Microsoft Architect HODA TREJO M Lab Interpretation (test Normal code = 89805-7) [facility]OS[facility]21[facility] 06:27:23 Test Item Value Reference Range Interpretation Comments PHOSPHORUS (BEAKER) (test code = 3.2 mg/dL 2.3-4.7 604) Microsoft Architect HODA TREJO MBASIC METABOLIC [id number] 06:27:22 Test Item Value Reference Range Interpretation [...] S NOT APPLICABLE FOR DIALYSIS PATIEN TS. Microsoft Architect ID - NEIL [id number] 06:27:22 Test Item Value Reference Range Interpretation Comments MAGNESIUM (BEAKER) (test code = 1.7 mg/dL 1.6-2.6 627) Microsoft Architect ID - NEIL MRAD, ABDOMEN/KUB, 1 VIEW [id number] 12:37:00Reason for exam:->Admitted for DIOSShould this be performed at the bedside?->Yes [facility] : 1975 Sex: MFINAL [...] no free air is identified. Signed: Lore Duqueeport Verified Date/Time: 08/05/2021 12:37:21 [facility] Electronically signed by: LORE DUQUE MD on 2020 12:37 PMBASIC METABOLIC [id number] 12:20:42 Test Item Value Reference Range Interpretation [...] S NOT APPLICABLE FOR DIALYSIS PATIEN TS. Microsoft Architect ID - NEIL [id number] 08:22:00 Test Item Value Reference Range Interpretation Comments MAGNESIUM (BEAKER) (test code = 1.5 mg/dL 1.6-2.6 L 627) Microsoft Architect ID - NEIL [id number] 08:22:00 Test Item Value Reference Range Interpretation Comments PHOSPHORUS (BEAKER) (test code = 1.6 mg/dL 2.3-4.7 L 604) Microsoft Architect ID - NEIL MBASIC METABOLIC [id number] 11:56:45 Test Item Value Reference Range Interpretation [...] S NOT APPLICABLE FOR DIALYSIS PATIEN TS. Microsoft Architect ID - ANETA LOperator ID - ANETA [id number] 10:34:21 Test Item Value Reference Range Interpretation Comments PHOSPHORUS (BEAKER) (test code = 2.4 mg/dL 2.3-4.7 604) Microsoft Architect ID - ANETA [id number] 10:34:20 Test Item Value Reference Range Interpretation Comments MAGNESIUM (BEAKER) (test code = 1.6 mg/dL 1.6-2.6 627) Microsoft Architect HODA - ANETA [id number] 11:42:47 Test Item Value Reference Range Interpretation Comments PHOSPHORUS (BEAKER) 2.8 mg/dL 2.3-4.7 Specimen slightly (test code = 604) hemolyzed Microsoft Architect ID - ANETA [id number] 05:42:53 Test Item Value Reference Range Interpretation Comments MAGNESIUM (BEAKER) 1.4 mg/dL 1.6-2.6 L Specimen slightly (test code = 627) hemolyzed Microsoft Architect HODA - ANETA LBASIC METABOLIC [id number] 05:42:53 Test Item Value Reference Range Interpretation [...] S NOT APPLICABLE FOR DIALYSIS PATIEN TS. Microsoft Architect ID - PIAYA LSARS-COV2/RT-PCR ([facility])2021-08-02 00:15:55 Test Item Value Reference Range Interpretation Comments SARS-COV2/RT-PCR Negative Negative The SARS-Co V-2 target (test code = nucleic acids a re not 9400987) detected in thi s specimen. Negative result [...] revoked sooner. Fact Sheet for Healthcare Providers: https://www.cepheid.co m/Documents/Xpert%20Xpress%20SARS%20CoV-2/Fact%20Sheets/174-3697%37EXNJ-FBF-6%20 HEALTHCARE%20PROVIDERS%20FACT%20SHEET.pdf Fact Sheet for Healthcare Patients: https://www.AcademixDirect/Documents/Xpert%20Xp ress%20SARS%20CoV-2/Fact%20Sheets/302-3801%12QHUV-YLR-1%20PATIENT%20FACT%20SHEET .pdfSHANTEL, [id number] 21:01:00Unlisted Reason for Exam - Click Yes and Enter Reason Below->NoWill this procedure require oral contrast?->No [facility] : 1975 Sex: MFINAL [...] Diffuse peripancreatic fatty atrophy. Signed: Magno Carvajal [facility] Verified Date/Time: 08/01/2021 21:01:39 REHENSIVE METABOLIC [id number] 20:31:25 Test Item Value Reference Range Interpretation [...] S NOT APPLICABLE FOR DIALYSIS PATIEN TS. Microsoft Architect ID - DBOperator ID - NEIL [id number] 19:49:58 Test Item Value Reference Range Interpretation Comments LIPASE (BEAKER) (test code = 749) 4 U/L 8-78 L Microsoft Architect ID - DBCBC W/PLT COUNT & AUTO [id number] 19:24:16 Test Item Value Reference Range Interpretation [...] code = 2801) RAD, ABDOMEN/KUB, 1 VIEW [id number] 11:19:00Reason for exam:->Abdominal pain distentionEMANATE [facility]ALTH[facility]Name: [facility] : 1975 Sex: MFINAL [...] Other: No acute osseous abnormality. Signed: Janak Reagan Verified Date/Time: 04/15/2021 11:19:14 Reading Location: [facility] B1 C013X Ortho Consult Reading Room BASIC METABOLIC [id number] 05:54:00 Test Item Value Reference Range Interpretation [...] S NOT APPLICABLE FOR DIALYSIS PATIEN TS. Microsoft Architect ID - CHAMP [id number] 05:53:00 Test Item Value Reference Range Interpretation Comments MAGNESIUM (BEAKER) (test code = 1.5 mg/dL 1.6-2.6 L 627) Microsoft Architect ID - CHAMP [id number] 05:53:00 Test Item Value Reference Range Interpretation Comments PHOSPHORUS (BEAKER) (test code = 2.3 mg/dL 2.3-4.7 604) Microsoft Architect ID - CHAMP WCBC W/PLT COUNT & AUTO [id number] 04:46:00 Test Item Value Reference Range Interpretation [...] 0-1 PERCENT (BEAKER) (test code = 2801) [id number] 05:08:00 Test Item Value Reference Range Interpretation Comments MAGNESIUM (BEAKER) (test code = 1.5 mg/dL 1.6-2.6 L 627) Microsoft Architect ID - NEIL [id number] 05:08:00 Test Item Value Reference Range Interpretation Comments SCOTT (DWAYNE) (test code = 2.1 mg/dL 2.3-4.7 L 604) Microsoft Architect ID - NEIL MSARS-COV2/RT-PCR ([facility])2021-04-13 09:33:00 Test Item Value Reference Range Interpretation Comments SARS-COV2/RT-PCR (test Negative Not Detected, Negative, code = 8049424) See external report for linked test SARS-COV-2 PERFORMING LAB [facility] TERI (test code = 8525971) Negative result for this test determines that [...] of the Act.Fact Sheet for Healthcare Prov iders:https://www.SecureWaters.Nifti/sites/default/files/product/documents/Fact_Sheet_HC _Bjyswgqbp_Yacl_XXXU-OtJ-4.pdfFact Sheet for Healthcare Patients:https://www.ViS/sites/default/files/product/docume nts/Nqpf_Nmtcq_Rwyjdfpz_Zbsw_HKZB-JmF-4.pdfPerforming Laboratory:[facility], [place] [address]MP, [id number] 00:22:00Unlisted Reason for Exam - Click Yes and Enter Reason Below->NoWill this procedure require oral contrast?->No [facility] : 1975 Sex: MFINAL [...] Non obstructing bilateral nephrolithiasis. Signed: Debbie Ding MDReport Verified Date/Time: 04/13/2021 00:22:00 URINALYSIS W/ REFLEX URINE [id number] 00:21:00 Test Item Value Reference Range Interpretation [...] = 518) SOURCE(BEAKER) (test code = 2795) Microsoft Architect ID - [auto]Microsoft Architect ID - techHIGH SENSITIVITY TROPONIN [id number] 22:05:00 Test Item Value Reference Range Interpretation Comments HIGH SENSITIVITY 5 pg/ml See_Comment [Automated message] TROPONIN I (test code = The system which 7056273) generated this result transmitted ref erence range: <=35. Th e reference range was not used to interpr et this result as normal/abnormal . Microsoft Architect ID - DBThe PRIMING MIXTURE CARRIER STAT High Sensitivity Troponin-I results should be used in conjunctionwith other diagnostic information such as ECG, clinical observations and information, and patient symptoms to aid in the diagnosis of CO.[id number] 21:59:00 Test Item Value Reference Range Interpretation Comments LIPASE (BEAKER) (test code = 749) < U/L 8-78 L Microsoft Architect ID - DBCOMPREHENSIVE METABOLIC [id number] 21:57:00 Test Item Value Reference Range Interpretation [...] S NOT APPLICABLE FOR DIALYSIS PATIEN TS. Microsoft Architect ID - DBLACTIC ACID, [id number] 21:42:00 Test Item Value Reference Range Interpretation Comments LACTATE BLOOD VENOUS (2) (BEAKER) 0.59 mmol/L 0.50-2.20 (test code = 2872) Microsoft Architect ID - DBBLOOD GAS, [id number] 21:31:00 Test Item Value Reference Range Interpretation [...] 1819) 21.0 CBC W/PLT COUNT & AUTO [id number] 21:31:00 Test Item Value Reference Range Interpretation [...] (BEAKER) (test code = 2801) CF RESPIRATORY [id number] 12:40:00 Test Item Value Reference Interpretation Comments [...] = 994) seen RAD, ABDOMEN/KUB, 1 VIEW [id number] 07:28:00Reason for exam:->constipation [facility] : 1975 Sex: MFINAL REPORT RAD, ABDOMEN/KUB, 1 VIEW AP TECHNIQUE: Supine radiograph(s) of the abdomen and pelvis. HISTORY: constipation COMPARISON: Abdominal radiographs 3 days prior IMPRESSION: Lines and tubes: None Bowel gas pattern: Unchanged nonobstructive bowel gas pattern. Small colonic stool burden. Other: Anastomotic sutures and surgical clip project over the right half of the abdomen Signed: Janak Reaganort Verified Date/Time: 02/24/2021 07:28:09 Reading Location: [facility] Rad[facility] Reading Room RAD, ABDOMEN/KUB, 1 VIEW [id number] 10:44:00Reason for exam:->abdominal pain, [facility] JOSUE : 1975 Sex: MFINAL REPORT RAD, ABDOMEN/KUB, [...] MDReport Verified Date/Time: 02/21/2021 10:44:09 Reading Location: [facility] C013V Neuro Reading Room SARS-COV2/RT-PCR ([facility])2021-02-20 12:43:00 Test Item Value Reference Range Interpretation Comments SARS-COV2/RT-PCR (test Negative Not Detected, Negative, code = 1025131) See external report for linked test SARS-COV-2 PERFORMING LAB [facility] TERI (test code = 8189595) Negative result for this test determines that [...] of the Act.Fact Sheet for Healthcare Prov iders:https://www.ViS/sites/default/files/product/documents/Fact_Sheet_HC _Gdvcedykr_Hkyq_PAQA-JjS-1.pdfFact Sheet for Healthcare Patients:https://www.ViS/sites/default/files/product/docume nts/Ovom_Yaxqz_Hqbtdpga_Iald_XDHM-NoB-2.pdfPerforming Laboratory:[facility] [place] [address], [place] [address]UAEWJ METABOLIC PANEL 2021-02-20 04:46:00 Test Item Value [...] S NOT APPLICABLE FOR DIALYSIS PATIEN TS. Microsoft Architect ID - EDASICBC W/PLT COUNT & AUTO [id number] 04:23:00 Test Item Value Reference Range Interpretation [...] PERCENT (BEAKER) (test code = 2801) CT, [id number] 21:22:00Unlisted Reason for Exam - Click Yes and Enter Reason Below->YesUnlisted Reason for Exam->abd pain, bloating, constipation. hx of SBOWill this procedure require oral contrast?->No [facility] MONICA RIVERAReyna SALAS : 1975 Sex: MFINAL REPORT EXAM: CT [...] Magno Carvajal MDReport Verified Date/Time: 02/19/2021 21:22:04 [id number] 18:22:00 Test Item Value Reference Range Interpretation Comments LIPASE (BEAKER) (test code = 749) < U/L 8-78 L Microsoft Architect ID - DBBASIC METABOLIC [id number] 18:21:00 Test Item Value Reference Range Interpretation [...] S NOT APPLICABLE FOR DIALYSIS PATIEN TS. Microsoft Architect ID - DBHEPATIC FUNCTION [id number] 18:21:00 Test Item Value Reference Range Interpretation [...] Specimen slightly (test code = 347) hemolyzed Microsoft Architect ID - DBLACTIC ACID, [id number] 18:05:00 Test Item Value Reference Range Interpretation Comments LACTATE BLOOD VENOUS 1.04 mmol/L 0.50-2.20 Specime n slightly (2) (BEAKER) (test hemolyzed code = 2872) Microsoft Architect ID - DBCBC W/PLT COUNT & AUTO [id number] 17:58:00 Test Item Value Reference Range Interpretation [...] code = 2801) RAD, ABDOMEN/KUB, 1 VIEW [id number] 17:30:00Reason for exam:->abd pain, bloated, hx of SBO [facility]ENTERName: VELIA RIVER[facility] : 1975 [...] Verified Date/Time: 02/19/2021 17:30:23 FUNGUS CULTURE + [id number] 17:04:00 Test Item Value Reference Range Interpretation Comments CULTURE (BEAKER) A <1+ Padilla albicans (test code = 1095) FUNGUS SMEAR No fungi seen (BEAKER) (test code = 1406) CF RESPIRATORY [id number] 10:47:00 Test Item Value Reference Range Interpretation [...] S Sulfamethoxazole (test code = 47) CULTURE (AKER) (test PSEUDOMONAS A <1+ P seudomonas code [...] 3+ Normal respiratory maria del carmen presentSPIN/CONCENTRATION [id number] 07:59:00 Test Item Value Reference Range Interpretation Comments CONCENTRATION CHARGED (BEAKER) (test Done code = 2657) RAD, CHEST, 2 [id number] 14:47:00Reason for Exam:->Cystic Fibrosis [facility]OSUE : 1975 Sex: MFINAL REPORT EXAMINATION: RAD, CHEST, 2 VIEWS INDICATION: Cystic Fibrosis COMPARISON: 08/29/2018 June 01, 2019 FINDINGS:TUBES and LINES: None. LUNGS: Lungs are well inflated. Mildchronic appearing change in the lungs. There is no evidence of pneumonia or pulmonary edema. PLEURA:No pleural effusion or pneumothorax. HEART AND MEDIASTINUM: The cardiomediastinal silhouette is unrem arkable. BONES AND SOFT TISSUES: No acute osseous lesion. Soft tissues are unremarkable. UPPER ABDOMEN: No free air under the diaphragm. IMPRESSION: No acute thoracic abnormality. 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 Signed: Faviola Ortega MDReport Verified Date/Time: 01/06/2021 14:10:03 Reading Location: [facility] Reading Room [address] [place] [address] URINALYSIS W/ REFLEX URINE [id number] 11:26:00 Test Item Value Reference Range Interpretation [...] 1 /HPF 520) SOURCE(BEAKER) (test code = 7195) Microsoft Architect ID - [auto]Microsoft Architect ID - techRAD, ABDOMEN/KUB, 1 VIEW [id number] 10:40:00Reason for exam:->constipation [facility]ENTER[facility]: VELIA RIVERA : 1975 Sex: MFINAL REPORT RAD, ABDOMEN/KUB, 1 VIEW AP CLINICAL INDICATION: constipation COMPARISON: October 17, 2020 TECHNIQUE: Single, frontal radiograph of the abdomen. FINDINGS: The bowel gas pattern is nonspecific, but nonobstructive. No radiographic evidence of constipation. Colon is predominantly air-filled. The regional skeleton is intact. IMPRESSION: Nonspecific, nonobstructive bowel gas pattern. Signed: Lore Duque MDReport Verified Date/Time: 10/28/2020 10:40:07 Reading Location:[facility] Radiology Reading Room COMPREHENSIVE METABOLIC [id number] 12:47:00 Test Item Value Reference Range Interpretation [...] S NOT APPLICABLE FOR DIALYSIS PATIEN TS. Microsoft Architect HODA MERINO2021-01-18 07:34:00 Test Item Value Reference Range Interpretation Comments BLOOD UREA NITROGEN (BEAKER) (test 16 mg/dL 7-21 code = 354) Microsoft Architect HODA [id number] 07:34:00 Test Item Value Reference Range Interpretation Comments CREATININE (BEAKER) 1.08 mg/dL 0.57-1.25 (test code = 358) EGFR (BEAKER) (test 90 mL/min/1.73 ESTIMA JOANN GFR IS code = 1092) sq m NOT ACCURATE CREATININE CLEARANCE IN PREDICTING GLOMERULAR FILTRATION RATE . ESTIMATED GFR I S NOT APPLICABLE FOR DIALYSIS PATIEN TS. Microsoft Architect HODA CORNELL LPOCT-GLUCOSE [id number] 13:03:00 Test Item Value Reference Range Interpretation Comments POC-GLUCOSE METER 93 mg/dL 70-110 : TESTED A T BSC 6720 (BEAKER) (test code = JUSTINE CORTEZ [place], 1538) [address]: Microsoft Architect/Techni rian ID = [id number] for BJORN SANCHES [id number] 06:22:00 Test Item Value Reference Range Interpretation Comments BLOOD UREA NITROGEN (BEAKER) (test 20 mg/dL 7-21 code = 354) Microsoft Architect HODA [id number] 06:22:00 Test Item Value Reference Range Interpretation Comments CREATININE (BEAKER) 1.12 mg/dL 0.57-1.25 (test code = 358) EGFR (DWAYNE) (test 86 mL/min/1.73 ESTIMA JOANN GFR IS code = 1092) sq m NOT ACCURATE CREATININE CLEARANCE IN PREDICTING GLOMERULAR FILTRATION RATE . ESTIMATED GFR I S NOT APPLICABLE FOR DIALYSIS PATIEN TS. Microsoft Architect ID - PIAYA LHEMOGLOBIN [id number] 21:14:00 Test Item Value Reference Range Interpretation Comments HEMOGLOBIN A1C (DWAYNE) (test code = 5.6 % 4.3-6.1 368) FL, SMALL BOWEL [id number] 19:16:00Reason for exam:->Rule out ileus or small bowel stricture [facility] CENTERName: VELIA RIVER[facility] : 1975 Sex: MFINAL REPORT FL, SMALL BOWEL ONLY CLINICAL HISTORY: Rule out ileus or small bowel stricture COMPARISON: Same day CT abdomen and pelvis. TECHNIQUE: A quilting machine helper abdominal radiograph is acquired. The small bowel is evaluated with single contrast technique after oral ingestion of Gastrografin contrast using AP abdominal radiographs. Abdominal radiographs are acquired at 0, 20, 40, 60, and 90 minutes. FINDINGS: The quilting machine helper radiograph demonstrates multiple dilated air- filled loops [...] Reagan Verified Date/Time: 10/25/2020 19:16:52 Reading Location: [address] Body Reading Room Electronically signed by: Mikey ZUNIGA 10/25/2020 07:16 PMCT, [id number] 09:52:00Reason for exam:->abd pain, constipation, hx of obstuctionWhat is the patient's sedation requirement?->No [facility]ation[facility]AWAYNE : 1975 Sex: MFINAL REPORT CT, ABDOMEN [...] infectious or inflammatory enteritis. Signed: Janak Reagan Verified Date/Time: 10/25/2020 09:52:20 Reading Location: [facility] B1 C013Y CT Body Reading Room [id number] 08:43:00 Test Item Value Reference Range Interpretation Comments LIPASE (BEAKER) (test code = 749) < U/L 8-78 L Microsoft Architect ID - NEIL MTROPONIN [id number] 08:32:00 Test Item Value Reference Range Interpretation [...] failure, acidosis, acute neurological disease, and persistent tachyarrhythmia.Microsoft Architect ID - NEIL MBASIC METABOLIC [id number] 08:24:00 Test Item Value Reference Range Interpretation [...] S NOT APPLICABLE FOR DIALYSIS PATIEN TS. Microsoft Architect ID - NEIL MCBC W/PLT COUNT & AUTO [id number] 08:03:00 Test Item Value Reference Range Interpretation [...] (BEAKER) (test code = 2801) BASIC METABOLIC [id number] 07:43:00 Test Item Value Reference Range Interpretation [...] S NOT APPLICABLE FOR DIALYSIS PATIEN TS. Microsoft Architect ID - [id number] 07:43:00 Test Item Value Reference Range Interpretation Comments MAGNESIUM (BEAKER) (test code = 1.7 mg/dL 1.6-2.6 627) Microsoft Architect ID - DBHEPATIC FUNCTION [id number] 07:43:00 Test Item Value Reference Range Interpretation [...] (test code = 13 U/L 6-55 347) Microsoft Architect ID - DBCBC W/PLT COUNT & AUTO [id number] 06:56:00 Test Item Value Reference Range Interpretation [...] PERCENT (BEAKER) (test code = 2801) SARS-COV2/INFLUENZA/RSV [id number] 02:52:00 Test Item Value Reference Range Interpretation Comments SARS-COV2/RT-PCR Negative Negative AA This is a c orrected (test code = result. Previou s result [id number]) was Positive on 2020 at 0123 TORCH OPERATOR INFLUENZA A RT-PCR Negative Negative (test code = 7101237) INFLUENZA B RT-PCR Negative Negative (test code = 3109764) RSV RT-PCR (test Negative Negative Performance of the Xpert code = 5272841) Xpress SARS- CoV-2/Flu/RSV test has only b [...] pres ence of virus or the vi eyad being detected less predictably.Neg ative results do not preclude SARS-CoV-2, Inf luenza A/B, or RSV inf ection and should not be u sed as the sole basis for treatment or other patien t management deci sions. Results from e Xpert Xpress SARS-CoV -2/Flu/RSV test should be correlated with the clinic al history, epidem iological data, and other data available to e clinician evalu ating the patient. Invali d test results may occ ur from improper specim en collection; burt lure to follow the michael mmended sample collecti on, handling, and s torage procedures; donnie hnical error. False ne gative results may occ ur if virus is presen t at levels below th e analytical limi t of detection (LOD: [...] sooner.Fact She et for Healthcare Prov iders: https://www.[employer].Nifti/D ocuments/Xpert% 20Xpress%2 3ZUPR-KpR-3-Flu -RSV/302-4 508%20Rev.%20B% 20HCP%20Fa ct%20Sheet.pdfF act Sheet for Healthcare Patients: https://www.[employer].Nifti/D ocuments/Xpert% 20Xpress%2 2OUYM-YgQ-6-Flu -RSV/302-4 507%20Rev.%20B% 20Patient% 20Fact%20Sheet. pdf [id number] 22:49:00 Test Item Value Reference Range Interpretation Comments LIPASE (CLARKAKER) (test code = 749) < U/L 8-78 L Microsoft Architect ID - DBCOMPREHENSIVE METABOLIC [id number] 22:49:00 Test Item Value Reference Range Interpretation [...] S NOT APPLICABLE FOR DIALYSIS PATIEN TS. Microsoft Architect ID - DBCT, [id number] 22:32:00Reason for exam:->ABDOMINAL PAINWhat is the patient's sedation requirement?->No Sedation [facility] [facility] : 1975 Sex: MFINAL [...] code = 2801) URINALYSIS W/ REFLEX URINE [id number] 21:51:00 Test Item Value Reference Range Interpretation [...] = 518) SOURCE(BEAKER) (test code = 2795) Microsoft Architect ID - [auto]Microsoft Architect ID - tumqZpqjvheiiz3105-73-96 05:11:00 Test Item Value Reference Range Interpretation Comments APPEARANCE (test code = Clear Clear 0993045682) COLOR (test code = Yellow Yellow 8207582533) PH (test code = 4.8-8.0 9003002910) SP GRAVITY (test code = 1.003-1.030 2682649166) GLU U QUAL (test code = Normal Normal 4594790169) BLOOD (test code = Negative Negative 7014862323) KETONES (test code = Negative Negative 3487349090) PROTEIN (test code = Negative Negative 2887-8) UROBILIN (test code = Normal Normal 6084142218) BILIRUBIN (test code = Negative Negative 1755309359) NITRITE (test code = Negative Negative 9928587646) LEUK TERRI (test code = Negative Negative 0404056735) RBC/HPF (test code = See_Comment [Autom ated message] 4854551010) The system Duolingo generated this result transmitted ref erence range: 0 - 3 HP F. The reference range was not used to int erpret this result as normal/abnormal . WBC/HPF (test code = See_Comment [Autom ated message] 8273765759) The system Duolingo generated this result transmitted ref erence range: 0 - 5 HP F. The reference range was not used to int erpret this result as normal/abnormal . BACTERIA (test code = Few Negative A 2512836085) SQ EPITH (test code = <1 HPF 0662433214) Lab Interpretation (test Abnormal code = 69881-5) [facility] [id number] 03:54:00 Test Item Value Reference Range Interpretation Comments TROPONIN I (test <0.012 See_Comment [Automated code = 8230458559) message] The system which generated this result [...] ? Lab Interpretation Normal (test code = 30784-1) [facility]landLipase [id number] 03:44:00 Test Item Value Reference Range Interpretation Comments LIPASE (test code = 7488938678) <10 0-220 Lab Interpretation (test code = Normal 01502-3) [facility] Metabolic Panel (NA, K, CL, CO2, GLUCOSE, BUN, CREATININE, CA)2020-10-19 03:43:00 Test Item Value Reference Range Interpretation Comments NA (test code = 140 mmol/L 135-145 1064510888) K (test code = 4.0 mmol/L 3.5-5 3570179427) CL (test code = 100 mmol/L 98-108 1245067502) CO2 TOTAL (test code = 33 mmol/L 23-31 H 9936439876) AGAP (test code = 2-16 7292138828) BUN (test code = 5 mg/dL 7-23 L 6058990473) GLUCOSE (test code = 109 mg/dL 70-110 1268106157) CREATININE (test code = 1.17 mg/dL 0.6-1.25 4356815701) CALCIUM (test code = 9.5 mg/dL 8.6-10.6 5009032564) eGFR Calculation mL/min/1.73m2 (Non-) (test code = 2534938470) eGFR Calculation mL/min/1.73m2 () (test code = 0975343578) SHANA (test code = SHANA) Association of [...] tests). Lab Interpretation Abnormal (test code = 41749-7) [facility] Function Panel (ALB, T.PRO, BILI T, BU/BC, ALT, AST, ALK PHOS)2020-10-19 03:43:00 Test Item Value Reference Range Interpretation Comments TOTAL BILI (test code = 9581736099) 1.6 mg/dL 0.1-1.1 H BILI UNCON (test code = 1156732375) 1.6 mg/dL 0.1-1.1 H BILI CONJ (test code = 0501937469) 0.0 mg/dL 0-0.3 T PROTEIN (test code = 9321638418) 7.2 g/dL 6.3-8.2 ALBUMIN (test code = 4139215180) 4.3 g/dL 3.5-5 ALK PHOS (test code = 1391060814) 64 U/L 34-122 ALTv (test code = 1742-6) 17 U/L 5-50 AST(SGOT) (test code = 6000955148) 27 U/L 13-40 Lab Interpretation (test code = Abnormal 13738-4) [facility]COVID-19 (ID NOW RAPID TESTING)2020-10-19 03:42:00 Test Item Value Reference Range Interpretation Comments SARS-CoV-2 Rapid ID NOW Not Detected Not Detected (test code = 03342-3) SHANA (test code = SHANA) ID NOW COVID-19 Assay is an isothermal nucleic acid amplification test intended for the qualitative detection of nucleic acid from SARS-CoV-2 viral RNA in nasopharyngeal (FLIGHT INSTRUCTOR) specimens. It is used under Emergency Use [...] indicated. Lab Interpretation Normal (test code = 44389-0) [facility] with [id number] 03:28:00 Test Item Value Reference Range Interpretation Comments WBC (test code = See_Comment [Automated 5390-2) message] The sy stem which generated this result transmitted reference range : 4.20 - 10.70 10*3/?L. The reference range was not used to interpret this result as normal/abnormal . RBC (test code = See_Comment L [Automated 589-8) message] The sy stem which generated this [...] RDW-SD (test code = 44.1 fL 38.5-51.6 10988-8) RDW-CV (test code = 12.9 % 12.1-15.4 788-0) PLT (test code = See_Comment [Automated 777-3) message] The sy stem which generated this result transmitted reference range : 150 - 328 10*3/ ?L. The reference r taurus was not used to interpret this result as normal/abnormal . MPV (test code = 11.8 fL 9.8-13 17202-0) NRBC/100 WBC (test See_Comment [Automat ed code = 8615427039) message] The system which generated this result transmitted reference range : 0.0 - 10.0 /100 WBCs. The refer ence range was not u sed to interpret th is result as normal/abnormal . NRBC x10^3 (test code <0.01 See_Comment [Auto mated = 9450874836) message] The s VNGtem which generated this result transmitted reference range : 10*3/?L. The reference range was not used to interpret this result as normal/abnormal . GRAN MAT (NEUT) % 54.1 % (test code = 770-8) IMM GRAN % (test code 0.20 % = 2619192229) LYMPH % (test code = 30.0 % 736-9) MONO % (test code = 11.6 % 5905-5) EOS % (test code = 3.6 % 713-8) BASO % (test code = 0.5 % 706-2) GRAN MAT x10^3(ANC) 3.28 10*3/uL 1.99-6.95 (test code = 8292161386) IMM GRAN x10^3 (test <0.03 0-0.06 code = 5930938980) LYMPH x10^3 (test code 1.82 10*3/uL 1.09-3.23 = 731-0) MONO x10^3 (test code 0.70 10*3/uL 0.36-1.02 = 742-7) EOS x10^3 (test code = 0.22 10*3/uL 0.06-0.53 711-2) BASO x10^3 (test code 0.03 10*3/uL 0.01-0.09 = 704-7) Lab Interpretation Abnormal (test code = 09975-1) [facility]landBASI METABOLIC [id number] 05:05:00 Test Item Value Reference Range Interpretation [...] S NOT APPLICABLE FOR DIALYSIS PATIEN TS. Microsoft Architect ID - [id number] 05:05:00 Test Item Value Reference Range Interpretation Comments MAGNESIUM (BEAKER) (test code = 1.6 mg/dL 1.6-2.6 627) Microsoft Architect ID - ABHISHEKRAD, ABDOMEN/KUB, 1 VIEW [id number] 15:41:00Reason for exam:->abdominal pain [facility] : 1975 Sex: MFINAL REPORT RAD, ABDOMEN/KUB, 1 VIEW AP CLINICAL INDICATION: abdominal pain COMPARISON: June 08, 2020 TECHNIQUE: Single, frontal radiograph of the abdomen. IMPRESSION: The bowel gas pattern dilated loops of small and large bowel. Appearance favors ileus. No visible pneumatosis. The regional skeleton is intact. Signed: JR Burk Robert MDReport Verified Date/Time: 10/17/2020 15:41:19 Reading Location: [facility] Radiology Reading Room BASIC METABOLIC PANEL 2020-10-17 [...] S NOT APPLICABLE FOR DIALYSIS PATIEN TS. Microsoft Architect ID - PIAYA [id number] 07:22:00 Test Item Value Reference Range Interpretation Comments MAGNESIUM (BEAKER) (test code = 2.0 mg/dL 1.6-2.6 627) Microsoft Architect ID - PIAYA LCBC W/PLT COUNT & AUTO [id number] 06:22:00 Test Item Value Reference Range Interpretation [...] (BEAKER) (test code = 2801) BASIC METABOLIC [id number] 05:42:00 Test Item Value Reference Range Interpretation [...] S NOT APPLICABLE FOR DIALYSIS PATIEN TS. Microsoft Architect ID - NEIL [id number] 05:42:00 Test Item Value Reference Range Interpretation Comments MAGNESIUM (BEAKER) (test code = 1.4 mg/dL 1.6-2.6 L 627) Microsoft Architect ID - NEIL MCBC W/PLT COUNT & AUTO [id number] 04:47:00 Test Item Value Reference Range Interpretation [...] 2801) SARS-COV2/RT-PCR ([facility])2020-10-15 13:08:00 Test Item Value Reference Range Interpretation Comments SARS-COV2/RT-PCR (test Negative Not Detected, Negative, code = 8403342) See external report for linked test SARS-COV-2 PERFORMING LAB [facility] (test code = 4280306) Negative result for this test determines that [...] of the Act.Fact Sheet for Healthcare Prov iders:https://www.ViS/sites/default/files/product/documents/Fact_Sheet_HC _Uqfxoftqs_Opbl_FLDB-QcT-5.pdfFact Sheet for Healthcare Patients:https://www.ViS/sites/default/files/product/docume nts/Azcq_Apncj_Wxzxljpd_Uryo_VNJS-KvN-8.pdfPerforming Laboratory:[facility], [place] [address]DV, [id number] 03:01:00Reason for exam:->ABDOMINAL PAINWhat is the patient's sedation requirement?->No Sedation [facility] : 1975 Sex: MFINAL REPORT CT, ABDOMEN [...] bilateral nephrolithiasis.Fatty atrophy pancreas. Signed: Debbie Ding [facility] Verified Date/Time: 10/15/2020 03:01:22 [id number] 02:35:00 Test Item Value Reference Range Interpretation Comments LIPASE (BEAKER) (test code = 749) < U/L 8-78 L Microsoft Architect ID - PIAYA LOperator ID - PIAYA LOperator ID - ADMINCOMPREHENSIVE METABOLIC [id number] 01:16:00 Test Item Value Reference Range Interpretation [...] S NOT APPLICABLE FOR DIALYSIS PATIEN TS. Microsoft Architect ID - PIAYA LCBC W/PLT COUNT & AUTO [id number] 00:41:00 Test Item Value Reference Range Interpretation [...] (BEAKER) (test code = 2801) BASIC METABOLIC [id number] 07:08:00 Test Item Value Reference Range Interpretation [...] S NOT APPLICABLE FOR DIALYSIS PATIEN TS. Microsoft Architect ID - NTPCBC W/PLT COUNT & AUTO [id number] 06:29:00 Test Item Value Reference Range Interpretation [...] (BEAKER) (test code = 2801) BASIC METABOLIC [id number] 06:39:00 Test Item Value Reference Range Interpretation [...] S NOT APPLICABLE FOR DIALYSIS PATIEN TS. Microsoft Architect ID - EDASISpecimen slightly ictericCBC W/PLT COUNT & AUTO [id number] 06:08:00 Test Item Value Reference Range Interpretation [...] (BEAKER) (test code = 2801) BASIC METABOLIC [id number] 06:45:00 Test Item Value Reference Range Interpretation [...] S NOT APPLICABLE FOR DIALYSIS PATIEN TS. Microsoft Architect ID - PIAYA LSpecimen slightly ictericCBC W/PLT COUNT & AUTO [id number] 06:28:00 Test Item Value Reference Range Interpretation [...] (BEAKER) (test code = 2801) LACTIC ACID, [id number] 06:25:00 Test Item Value Reference Range Interpretation Comments LACTATE BLOOD VENOUS (2) (BEAKER) 0.80 mmol/L 0.50-2.20 (test code = 2872) Microsoft Architect ID - ANETA LSpecimen slightly ictericLACTIC ACID, [id number] 00:07:00 Test Item Value Reference Range Interpretation Comments LACTATE BLOOD VENOUS (2) (BEAKER) 0.77 mmol/L 0.50-2.20 (test code = 2872) Microsoft Architect ID - ANETA LLACTIC ACID, [id number] 18:08:00 Test Item Value Reference Range Interpretation Comments LACTATE BLOOD VENOUS (2) (BEAKER) 1.35 mmol/L 0.50-2.20 (test code = 2872) Microsoft Architect ID - CARLITOFL, UGI, WITH SMALL [id number] 11:59:00Upper GI with small bowel follow throughReason [...] a prominent sigmoid colon. Signed: Marcelino Murrell Verified Date/Time: 06/08/2020 11:59:48 Reading Location: [address] Body Reading Room RAD, ABDOMEN/KUB, 1 VIEW [id number] 09:30:00Reason for exam:->NGT, SBOFINAL REPORT TECHNIQUE: Single [...] in the right abdomen. Signed: Marcelino Murrell Verified Date/Time: 06/08/2020 09:30:43 Reading Location: [address] Body Reading Room PROTHROMBIN [id number] 04:30:00 Test Item Value Reference Range Interpretation [...] is 2.5-3.5 for patients wiht mechanical heart valves.[id number] 04:09:00 Test Item Value Reference Range Interpretation Comments MAGNESIUM (BEAKER) (test code = 1.6 mg/dL 1.6-2.6 627) Microsoft Architect ID - PIAYA LBASIC METABOLIC [id number] 04:09:00 Test Item Value Reference Range Interpretation [...] S NOT APPLICABLE FOR DIALYSIS PATIEN TS. Microsoft Architect ID - PIAYA LURINALYSIS W/ REFLEX URINE [id number] 03:52:00 Test Item Value Reference Range Interpretation [...] /LPF 514) SOURCE(BEAKER) (test code = 2795) Microsoft Architect ID - [auto]Microsoft Architect ID - techLACTIC ACID, [id number] 03:31:00 Test Item Value Reference Range Interpretation Comments LACTATE BLOOD VENOUS (2) (BEAKER) 0.52 mmol/L 0.50-2.20 (test code = 2872) Microsoft Architect ID - ANETA LCT, [id number] 00:01:00Unlisted Reason for Exam - Click Yes [...] approximately 11:52 PM 06/07/2020. Signed: Magno Carvajal [facility] Verified Date/Time: 06/08/2020 00:01:48 SARS-COV2/RT-PCR ([facility]) 2020-06-07 22:51:00 Test Item Value Reference Range Interpretation Comments SARS-COV2/RT-PCR (test code Negative Not Detected, Negative, = 7534234) See external report for linked test SARS-COV-2 PERFORMING LAB [facility] (test code = 5548851) Negative results do not preclude SARS-CoV-2 infection [...] of the Act.Fact Sheet for Healthcare Pro viders:https://www.Errund.Nifti/Documents/Xpert%20Xpress%20SARS%20CoV-2/Fact%20Sh eets/302-3802%46BDWE-VGA-4%20HEALTHCARE%20PROVIDERS%20FACT%20SHEET.pdfFact Sheet for Healthcare Patients:https://www.[employer].Nifti/Documents/Xpert%20Xpress%20SARS%20CoV-2/Fact%20Sheets/302-3801%20SARS-COV -2%20PATIENT%20FACT%20SHEET.pdfPerforming Laboratory:[place] [address], [place] [id number] 20:56:00 Test Item Value Reference Range Interpretation Comments LIPASE (BEAKER) (test code = 749) < U/L 8-78 L Microsoft Architect ID - DBBASIC METABOLIC [id number] 20:52:00 Test Item Value Reference Range Interpretation [...] S NOT APPLICABLE FOR DIALYSIS PATIEN TS. Microsoft Architect ID - DBHEPATIC FUNCTION [id number] 20:52:00 Test Item Value Reference Range Interpretation [...] Specimen markedly (test code = 347) hemolyzed Microsoft Architect ID - DBCBC W/PLT COUNT & AUTO [id number] 20:33:00 Test Item Value Reference Range Interpretation [...] code = 2801) RAD, ABDOMEN/KUB, 1 VIEW [id number] 20:11:00Reason for exam:->ABDOMINAL PAINReason for exam:->history of [...] Date/Time: 06/07/2020 20:11:37 RAD, ABDOMEN/KUB, 1 VIEW [id number] 15:31:00Reason for exam:->assess stool burdenFINAL REPORT CLINICAL [...] Gomez Verified Date/Time: 05/09/2020 15:31:54 Reading Location: [facility] Radiology Reading Room CBC W/PLT COUNT & AUTO [id number] 06:57:00 Test Item Value Reference Range Interpretation [...] 0-1 PERCENT (BEAKER) (test code = 2801) [id number] 06:46:00 Test Item Value Reference Range Interpretation Comments MAGNESIUM (BEAKER) 1.5 mg/dL 1.6-2.6 L Specimen slightly (test code = 627) hemolyzed Microsoft Architect ID - [id number] 06:46:00 Test Item Value Reference Range Interpretation Comments PHOSPHORUS (BEAKER) 2.9 mg/dL 2.3-4.7 Specimen slightly (test code = 604) hemolyzed Microsoft Architect ID - EDASIBASIC METABOLIC [id number] 06:46:00 Test Item Value Reference Range Interpretation [...] S NOT APPLICABLE FOR DIALYSIS PATIEN TS. Microsoft Architect ID - EDASIHEPATIC FUNCTION [id number] 06:46:00 Test Item Value Reference Range Interpretation [...] Specimen slightly (test code = 347) hemolyzed Microsoft Architect ID - [id number] 10:38:00 Test Item Value Reference Range Interpretation Comments MAGNESIUM (BEAKER) 1.9 mg/dL 1.6-2.6 Specimen slightly (test code = 627) hemolyzed Microsoft Architect ID - [id number] 10:38:00 Test Item Value Reference Range Interpretation Comments PHOSPHORUS (BEAKER) 2.5 mg/dL 2.3-4.7 Specimen slightly (test code = 604) hemolyzed Microsoft Architect ID - NTPBASIC METABOLIC [id number] 10:38:00 Test Item Value Reference Range Interpretation [...] S NOT APPLICABLE FOR DIALYSIS PATIEN TS. Microsoft Architect ID - NTPHEPATIC FUNCTION [id number] 10:38:00 Test Item Value Reference Range Interpretation [...] Specimen slightly (test code = 347) hemolyzed Microsoft Architect ID - NTPCBC W/PLT COUNT & AUTO [id number] 10:33:00 Test Item Value Reference Range Interpretation [...] SARS-COV2/RT-PCR ([facility])2020-05-07 11:54:00 Test Item Value Reference Range Interpretation Comments SARS-COV2/RT-PCR (test Negative Not Detected, Negative, code = 0401593) See external report for linked test SARS-COV-2 PERFORMING LAB [facility] TERI (test code = 9779077) Negative result for this test determines that [...] of the Act.Fact Sheet for Healthcare Prov iders:https://www.SecureWaters.Nifti/sites/default/files/product/documents/Fact_Sheet_HC _Xricckyac_Zhfx_LTQJ-VaV-8.pdfFact Sheet for Healthcare Patients:https://www.ViS/sites/default/files/product/docume nts/Dkay_Gprwl_Krcsbtdj_Omih_GAUK-FdM-0.pdfPerforming Laboratory:[facility], [place] [id number] 10:19:00 Test Item Value Reference Range Interpretation Comments MAGNESIUM (BEAKER) (test code = 1.3 mg/dL 1.6-2.6 L 627) Microsoft Architect ID - PIAYA LBASIC METABOLIC [id number] 10:19:00 Test Item Value Reference Range Interpretation [...] S NOT APPLICABLE FOR DIALYSIS PATIEN TS. Microsoft Architect ID - PIAYA LHEPATIC FUNCTION [id number] 10:19:00 Test Item Value Reference Range Interpretation [...] (test code = 13 U/L 6-55 347) Microsoft Architect ID - ANETA LCBC W/PLT COUNT & AUTO [id number] 10:00:00 Test Item Value Reference Range Interpretation [...] PERCENT (BEAKER) (test code = 2801) CT, [id number] 02:02:00FINAL REPORT TECHNIQUE: CT of the abdomen [...] CARMELO MOSLEY MD on 05/07/2020 02:02 AMURINALYSIS [id number] 01:08:00 Test Item Value Reference Range Interpretation Comments RBC UA (BEAKER) (test code = 519) < /HPF WBC UA (BEAKER) (test code = 520) 3 /HPF BACTERIA (BEAKER) (test code = Rare 517) MUCUS (BEAKER) (test code = 1574) Occasional SQUAMOUS EPITHELIAL (BEAKER) (test < /HPF code = 516) HYALINE CASTS (BEAKER) (test code 1 /LPF = 514) Microsoft Architect ID - techU/S, ABDOMINAL, [id number] 00:44:00Abdomen limited area? Add comment if clarification [...] Date/Time: 05/07/2020 00:44:38 URINALYSIS WITH MICROSCOPIC IF [id number] 00:38:00 Test Item Value Reference Range Interpretation [...] = 463) SOURCE(BEAKER) (test code = 2795) Microsoft Architect ID - [auto]Microsoft Architect ID - [id number] 00:23:00 Test Item Value Reference Range Interpretation Comments LIPASE (BEAKER) (test code = 749) < U/L 8-78 L Microsoft Architect ID - PIAYA LBASIC METABOLIC [id number] 00:20:00 Test Item Value Reference Range Interpretation [...] S NOT APPLICABLE FOR DIALYSIS PATIEN TS. Microsoft Architect ID - ANETA LHEPATIC FUNCTION [id number] 00:20:00 Test Item Value Reference Range Interpretation [...] (test code = 20 U/L 6-55 347) Microsoft Architect ID - ANETA LLACTIC ACID, [id number] 23:58:00 Test Item Value Reference Range Interpretation Comments LACTATE BLOOD VENOUS 1.45 mmol/L 0.50-2.20 Specime n slightly (2) (BEAKER) (test hemolyzed code = 9452) Microsoft Architect ID - SANGITAHANS LCBC W/PLT COUNT & AUTO [id number] 23:46:00 Test Item Value Reference Range Interpretation [...] (BEAKER) (test code = 2801) CF RESPIRATORY [id number] 16:25:00 Test Item Value Reference Range Interpretation [...] 3+ Normal respiratory maria del carmen presentCT, [id number] 10:37:00FINAL REPORT ABDOMINAL AND PELVIS CT DATED [...] MDReport Verified Date/Time: 04/17/2020 10:37:08 Reading Location: [facility] C013Y CT Body Reading Room URINALYSIS W/ REFLEX URINE [id number] 09:19:00 Test Item Value Reference Range Interpretation [...] /LPF 514) SOURCE(BEAKER) (test code = 2795) Microsoft Architect ID - [auto]Microsoft Architect ID - [id number] 09:14:00 Test Item Value Reference Range Interpretation Comments LIPASE (BEAKER) (test code = 749) < U/L 8-78 L Microsoft Architect ID - GALAPBASIC METABOLIC [id number] 08:36:00 Test Item Value Reference Range Interpretation [...] S NOT APPLICABLE FOR DIALYSIS PATIEN TS. Microsoft Architect ID - GALAPHEPATIC FUNCTION [id number] 08:36:00 Test Item Value Reference Range Interpretation [...] (test code = 32 U/L 6-55 347) Microsoft Architect ID - GALAPCBC W/PLT COUNT & AUTO [id number] 08:26:00 Test Item Value Reference Range Interpretation [...] (BEAKER) (test code = 2801) HEPATIC FUNCTION [id number] 10:19:43 Test Item Value Reference Range Interpretation Comments PROTEIN TOTAL (test See_Comment [Automa joann message] The code = 2885-2) system which generated this result tra nsmitted reference range : 6.1 - 8.3 G/DL. The r eference range was not u sed to interpret this result as normal/abnormal . ALBUMIN (test code = See_Comment [Autom ated message] The 1750-) system which ge nerated this result tra [...] See_Comment [Aut omated message] The code = 0639309) system which generated this result tra nsmitted [...] All Testing Performed At: C linical Pathology [facility], [address] [place] [address] [place] [address] Director: Ranulfo ClevelandIA Number [id number] Cap Accreditation N o. [id number] [facility]2019-12-12 19:00:00Oksana Goddard NP 12/18/2019 12:20 PMPlease see graphic report for final interpretation. Date of testDate of test: 12/12/1922RYA8LBC3: 2.27 LFEV1 % EXP: 63 %FVCFVC: 3.5 LFVC % EXPECT: 79 %FEV1 / FVCFEV1 / FVC: 0.72 %FEV1 / FVC % EXP: 89 %FEFFEF 25-75%: 1.5 l/minFEF % EXPEC: 41 %[facility] [id number] 12:01:00 Test Item Value Reference Interpretation Comments [...] 4+ Normal respiratory maria del carmen presentPOCT-GLUCOSE [id number] 10:24:00 Test Item Value Reference Range Interpretation Comments POC-GLUCOSE METER 101 mg/dL 70-110 : TESTED A T [facility] 6720 (BEAKER) (test code = JUSTINE Ha CORTEZ [place], 1538) [address]: Microsoft Architect/Techni rian ID = [id number] for [place] LILA GORDON [id number] 05:45:00 Test Item Value Reference Range Interpretation Comments MAGNESIUM (BEAKER) (test code = 1.4 mg/dL 1.6-2.6 L 627) Microsoft Architect ID - LABASIC METABOLIC [id number] 05:45:00 Test Item Value Reference Range Interpretation [...] S NOT APPLICABLE FOR DIALYSIS PATIEN TS. Microsoft Architect ID - LABASIC METABOLIC [id number] 13:57:00 Test Item Value Reference Range Interpretation [...] S NOT APPLICABLE FOR DIALYSIS PATIEN TS. Microsoft Architect ID - NEIL MRAD, ABDOMEN/KUB, 1 VIEW [id number] 09:29:00Reason for exam:->LIONEL, eval stool burdenFINAL REPORT CLINICAL HISTORY: jay FLOWERSal stool burden TECHNIQUE: Supine abdomen COMPARISON: 10/19/2019 [...] MDReport Verified Date/Time: 10/22/2019 09:29:36 Reading Location: [facility] Radiology Reading Room [id number] 07:28:00 Test Item Value Reference Range Interpretation Comments MAGNESIUM (BEAKER) 1.4 mg/dL 1.6-2.6 L Specimen moderately (test code = 627) hemolyzed Microsoft Architect ID - [id number] 03:32:00 Test Item Value Reference Range Interpretation Comments MAGNESIUM (BEAKER) (test code = 1.4 mg/dL 1.6-2.6 L 627) Microsoft Architect ID - NEIL MBASIC METABOLIC [id number] 03:32:00 Test Item Value Reference Range Interpretation [...] S NOT APPLICABLE FOR DIALYSIS PATIEN TS. Microsoft Architect ID - NEIL [id number] 05:11:00 Test Item Value Reference Range Interpretation Comments MAGNESIUM (BEAKER) (test code = 1.7 mg/dL 1.6-2.6 627) Microsoft Architect ID - NEIL MBASIC METABOLIC [id number] 05:11:00 Test Item Value Reference Range Interpretation [...] S NOT APPLICABLE FOR DIALYSIS PATIEN TS. Microsoft Architect ID - NEIL MRAD, ABDOMEN/KUB, 1 VIEW [id number] 05:46:00Reason for exam:->ABDOMINAL PAINFINAL REPORT TECHNIQUE: Single [...] imaged chest base is unremarkable. Signed: Carmelo Mosley MDReport Verified Date/Time: 10/19/2019 05:46:42 BASIC METABOLIC [id number] 05:42:00 Test Item Value Reference Range Interpretation [...] S NOT APPLICABLE FOR DIALYSIS PATIEN TS. [employer] Architect ID - NEIL [id number] 05:29:00 Test Item Value Reference Range Interpretation Comments PHOSPHORUS (BEAKER) (test code = 2.4 mg/dL 2.3-4.7 604) [employer] Architect ID - NEIL [id number] 05:29:00 Test Item Value Reference Range Interpretation Comments MAGNESIUM (BEAKER) (test code = 1.5 mg/dL 1.6-2.6 L 627) [employer] Architect ID - NEIL MCT, [id number] 04:01:00Reason for exam:->distal intestinal obstructionWhat is the [...] S NOT APPLICABLE FOR DIALYSIS PATIEN TS. [employer] Architect ID - NEIL MCBC W/PLT COUNT & AUTO [id number] 01:44:00 Test Item Value Reference Range Interpretation [...] (test code = 2801) AFB CULTURE + [id number] 12:10:00 Test Item Value Reference Range Interpretation Comments CULTURE (BEAKER) (test No acid-fast bacilli code = 1095) isolated in 42 days AFB SMEAR (BEAKER) No acid fast bacilli (test code = 994) seen FUNGUS CULTURE + [id number] 18:48:00 Test Item Value Reference Range Interpretation Comments CULTURE (BEAKER) A <1+ Padilla (test code = 1095) parapsilo sis FUNGUS SMEAR No fungi seen (BEAKER) (test code = 1406) CF RESPIRATORY [id number] 08:04:00 Test Item Value Reference Range Interpretation [...] 3+ Normal respiratory maria del carmen presentSPIN/CONCENTRATION [id number] 01:05:00 Test Item Value Reference Range Interpretation Comments CONCENTRATION CHARGED (BEAKER) (test Done code = 2657) VITAMIN D 25 [id number] 10:54:35 Test Item Value Reference Range Interpretation Comments VITAMIN D 25-HYDROXY SEE BELOW NG/ML L NOT E: (test code = 8730225) 25-HYD ROXYVITAMIN D ASSAY INCLUDES 25-HYDROXYVITAM IN [...] . . . . . NG/ML 20-29 OPT IMAL . . . . . . . . . . . . . . . . . NG/ML 30- 100 Unless Otherwis e Indicated, All Testing Performed At: [facility] [address] bharathi Director: Graham Mendoza M.D. CLIA Number [id number] [place]. [id number] Lab Interpretation Abnormal (test code = 22368-5) [id number] 10:45:17 Test Item Value Reference Range Interpretation Comments TESTOSTERONE LEVEL (test See_Comment Un less Otherwise code = 1713004) Indicated, A ll Testing Performed At: [facility] [place] [id number] Venecia garvin Director: Ranulfo ClevelandIA Number [id number] Cap Accreditation [place] o. [id number] [Autom ated message] The sy stem which generated this result transmit joann reference range : 300 - 890 NG/DL. The reference range was not used to interpr et this result as normal/abnormal . [facility] HospitalPROTIME-[id number] 09:34:37 Test Item Value Reference Range Interpretation Comments PROTIME (test code = See_Comment [Autom ated message] The 19152-1) system which ge nerated this result transmit joann reference range: 12.5 - 1 4.7 SECONDS. The reference r taurus was not used to interpr et this result as marlena l/abnormal. INR (test code = SEE BELOW CURRENT R ECOMMENDATIONS 46811-0) ARE FOR AN INR OF 2.0-3.0 FOR ALL PATIENT S ON VITAMIN K ANTAGONISTS, EXCEPT THOSE WITH PROSTHETIC HEART VALVES, FOR WHO M INR OF 2.5-3.5 IS MICHAEL MMENDED. Unless Otherwis e Indicated, All Testing Per formed At: [facility], [address] [place], [place] [address] Salvage Supervisor: Ranulfo Cleveland r [id number] Cap Accreditati on No. [facility] HospitalTSH2019-10-09 09:25:17 Test Item Value Reference Range Interpretation Comments THYROID STIMULATING See_Comment Unless Otherwise HORMONE (test code = Indicat ed, All Testing 8492023) Performed At: [facility], [address] [place] [address] Venecia garvin Director: Ranulfo Cleveland Number [id number] Cap Accreditation [place] o. [id number] [Autom ated message] The sy stem which generated this result transmit joann reference range : 0.400 - 4.100 UIU/ML. T he reference range was not used to interpr et this result as normal/abnormal . [facility] HospitalHEMOGLOBIN [id number] 08:37:06 Test Item Value Reference Range Interpretation Comments HEMOGLOBIN A1C (test 6.0 % 4.2-5.6 H Unless Otherwise code = 4548-4) Indicated, Al l Testing Performed At: [facility], [address] [facility], [place] [address] Laborator y Director: Graham Mendoza M.D. IA Number [id number] [place] o. [id number] Lab Interpretation Abnormal (test code = 33801-6) [facility] HospitalCOMPREHENSIVE METABOLIC [id number] 08:10:39 Test Item Value Reference Range Interpretation Comments GLUCOSE (test code = See_Comment [Autom ated message] The 06073-3) system which ge nerated this result tra nsmitted reference range : 70 - 99 MG/DL. The refe rence range was not u sed to interpret this result as normal/abnormal . BLOOD UREA NITROGEN See_Comment [Automa joann message] The (test code = 37489-3) system which generated this result tra nsmitted reference range : 6 - 20 MG/DL. The refe rence range was not u sed to interpret this result as normal/abnormal . CREATININE (test code See_Comment [Auto mated message] The = 71409-7) system which ge nerated this result tra [...] code = See_Comment [Automate d message] The 53493-4) system which ge nerated this result tra [...] code = See_Comment [Automa joann message] The 46587-3) system which ge nerated this result tra [...] code = See_Comment [Autom ated message] The 27173-7) system which ge nerated this result tra [...] message] The TOTAL (test code = system [facility] generated 230) this result tra nsmitted reference [...] = 1742-6) Indicated, All Testing Performed At: [facility], [address] [place] [address] Venecia garvin Director: Ranulfo ClevelandIA Number [id number] [place] o. [id number] [facility] HospitalLIPID [id number] 08:10:39 Test Item Value Reference Range Interpretation Comments CHOLESTEROL (test code = See_Comment [A utomated message] 8807625) The system [employer] generated this result transmitted ref erence range: <200 MG/ DL. The reference range was not used to interpr et this result as normal/abnormal . TRIGLYCERIDES (test code See_Comment [A utomated message] = 9393127) The system [employer] generated this result transmitted ref erence range: <150 MG/ DL. The reference range was not used to interpr et this result as normal/abnormal . HDL CHOLESTEROL (test See_Comment [Auto mated message] code = 4006540) The system [employer] generated this result transmitted ref erence range: >39 MG/D L. The reference range was not used to interpr et this result as normal/abnormal . LDL CHOLESTEROL See_Comment [Automated message] CALCULATED (test code = The system which 9893387) generated this result transmitted ref erence range: <100 MG/ DL. The reference range was not used to interpr et this result as normal/abnormal . LDL/HDL RATIO, SERUM See_Comment Unless Otherwise (test code = 168) Indicated, All Testing Performed At: [facility] at[facility], [address] [place] [address] Venecia garvin Director: Ranulfo ClevelandIA Number [id number] Cap Accreditation N o. [id number] [Autom ated message] The sy stem which generated this result transmit joann reference range : <3.55 RATIO. The refe rence range was not u sed to interpret this result as normal/abnor mal. [facility] W/AUTO DIFF WITH [id number] 08:02:31 Test Item Value Reference Range Interpretation Comments WHITE BLOOD CELL COUNT See_Comment [Aut omated message] (test code = 6690-2) The sys tem which generated this result transmitted ref erence range: 4.0 - 11 .0 K/UL. The refer ence range was not u sed to interpret this result as normal/abnor mal. RED BLOOD CELL COUNT See_Comment [Autom ated message] (test code = 90409-7) The sy stem which generated this result transmitted ref erence range: 4.10 - 5 .70 M/UL. The refer ence range was not u sed to interpret this result as normal/abnor mal. HEMOGLOBIN (test code = See_Comment [Au tomated message] 92567-4) The system whic h generated this result transmitted ref erence range: 13.0 - 1 7.0 G/DL. The refer ence range was not u sed to interpret this result as normal/abnor mal. HEMATOCRIT (test code = 41.3 % 37-49 59275-3) MEAN CORPUSCULAR VOLUME 90.6 fL 80-100 (test [...] = 777-3) Indicated, All Testing Performed At: [facility], [address] [place] [address] Laborator y Director: Graham Mendoza M.D. CLIA Number [id number] Cap Accreditation N o. [id number] [Autom ated message] The sy stem which generated this result transmit joann reference range : 130 - 400 K/UL. The reference range was not used to int erpret this result as normal/abnormal . [facility] HospitalCREATININE, RANDOM [id number] 01:17:00 Test Item Value Reference Range Interpretation Comments CREATININE URINE (BEAKER) (test 105.9 mg/dL code = 375) Reference Range: No NormalsSODIUM, RANDOM [id number] 01:17:00 Test Item Value Reference Range Interpretation Comments SODIUM URINE (BEAKER) (test code = 235 meq/L 243) Reference Range: No NormalsBASIC METABOLIC [id number] 14:52:00 Test Item Value Reference Range Interpretation [...] PATIEN TS. CBC W/PLT COUNT & AUTO [id number] 06:59:00 Test Item Value Reference Range Interpretation [...] (BEAKER) (test code = 2801) BASIC METABOLIC [id number] 07:05:00 Test Item Value Reference Range Interpretation [...] PATIEN TS. CBC W/PLT COUNT & AUTO [id number] 06:46:00 Test Item Value Reference Range Interpretation [...] PERCENT (BEAKER) (test code = 2801) TROPONIN [id number] 19:25:00 Test Item Value Reference Range Interpretation [...] acute neurological disease, and persistent tachyarrhythmia.BASIC METABOLIC [id number] 07:10:00 Test Item Value Reference Range Interpretation [...] PATIEN TS. CBC W/PLT COUNT & AUTO [id number] 06:55:00 Test Item Value Reference Range Interpretation [...] (BEAKER) (test code = 2801) BASIC METABOLIC [id number] 03:46:00 Test Item Value Reference Range Interpretation [...] PATIEN TS. CBC W/PLT COUNT & AUTO [id number] 03:42:00 Test Item Value Reference Range Interpretation [...] PERCENT (BEAKER) (test code = 2801) POCT-GLUCOSE [id number] 06:12:00 Test Item Value Reference Range Interpretation Comments POC-GLUCOSE METER 81 mg/dL 70-110 TESTED AT [facility] 6720 (BEAKER) (test code = [place] [address] 1538) BASIC METABOLIC [id number] 05:38:00 Test Item Value Reference Range Interpretation [...] PATIEN TS. CBC W/PLT COUNT & AUTO [id number] 04:55:00 Test Item Value Reference Range Interpretation [...] PERCENT (BEAKER) (test code = 2801) POCT-GLUCOSE [id number] 00:40:00 Test Item Value Reference Range Interpretation Comments POC-GLUCOSE METER 106 mg/dL 70-110 TESTED AT [facility] 67[address] ([facility]) (test code = [place] 1538) [address] POCT-GLUCOSE [id number] 18:46:00 Test Item Value Reference Range Interpretation Comments POC-GLUCOSE METER 102 mg/dL 70-110 TESTED AT [facility] 67[address] ([facility]) (test code = [place] 1538) [address] [place], SMALL BOWEL [id number] 18:00:00Reason for exam:->resolution of ileus FINAL REPORT [...] ileus or low-grade partial obstruction. Signed: Socrates [place] Verified Date/Time: 06/04/2019 18:00:59 Reading Location: [facility] C013X Ortho Consult Reading Room POCT-GLUCOSE [id number] 12:42:00 Test Item Value Reference Range Interpretation Comments POC-GLUCOSE METER 88 mg/dL 70-110 TESTED AT [address] (test code = [facility] [address] 1538) RAD, ABDOMEN/KUB, 1 VIEW [id number] 10:33:00Reason for exam:->distentioin FINAL REPORT RAD, ABDOMEN/KUB, [...] Duque MDReportVerified Date/Time: 06/04/2019 10:33:04 Reading Location: [facility] Reading Room POCT-GLUCOSE [id number] 07:13:00 Test Item Value Reference Range Interpretation Comments POC-GLUCOSE METER 76 mg/dL 70-110 TESTED AT [place] [address] ([facility]) (test code = [facility] [address] 1538) BASIC METABOLIC [id number] 07:03:00 Test Item Value Reference Range Interpretation [...] PATIEN TS. CBC W/PLT COUNT & AUTO [id number] 06:56:00 Test Item Value Reference Range Interpretation [...] PERCENT (BEAKER) (test code = 2801) POCT-GLUCOSE [id number] 05:03:00 Test Item Value Reference Range Interpretation Comments POC-GLUCOSE METER 90 mg/dL 70-110 TESTED AT [facility] 67[address] (BEAKER) (test code = [place] [address] 1538) [id number] 12:47:00 Test Item Value Reference Range Interpretation Comments MAGNESIUM (BEAKER) (test code = 1.8 mg/dL 1.6-2.6 627) BASIC METABOLIC [id number] 12:47:00 Test Item Value Reference Range Interpretation [...] PATIEN TS. CBC W/PLT COUNT & AUTO [id number] 12:20:00 Test Item Value Reference Range Interpretation [...] PERCENT (BEAKER) (test code = 2801) CT, [id number] 16:06:00Please give water soluble rectal contrast (gastrograffin)FINAL [...] distal small bowel obstruction. Signed: Carmelo Tierney MDReportVerified Date/Time: 06/02/2019 16:06:39 Reading Location: [facility] C013X [facility] Consult Reading Room GLOBIN [id number] 14:49:00 Test Item Value Reference Range Interpretation Comments HEMOGLOBIN A1C (BEAKER) (test code = 6.4 % 4.3-6.1 H 368) [id number] 10:13:00 Test Item Value Reference Range Interpretation Comments PHOSPHORUS (BEAKER) (test code = 2.7 mg/dL 2.3-4.7 604) [id number] 10:13:00 Test Item Value Reference Range Interpretation Comments MAGNESIUM (BEAKER) (test code = 1.8 mg/dL 1.6-2.6 627) BASIC METABOLIC [id number] 10:13:00 Test Item Value Reference Range Interpretation [...] APPLICABLE FOR DIALYSIS PATIEN TS. HEPATIC FUNCTION [id number] 10:13:00 Test Item Value Reference Range Interpretation [...] 6-55 347) CBC W/PLT COUNT & AUTO [id number] 10:01:00 Test Item Value Reference Range Interpretation [...] PERCENT (BEAKER) (test code = 2801) CT, [id number] 04:53:00FINAL REPORT CT, ABDOMEN \\T\\ PELVIS, WITH [...] colon. Nonobstructing bilateral nephrolithiasis. Signed: Debbie Ding MDReport Verified Date/Time: 06/02/2019 04:53:48 BASIC METABOLIC [id number] 02:20:00 Test Item Value Reference Range Interpretation [...] TS. RAD, ABDOMEN SERIES W/ UPRIGHT PA [id number] 01:44:00Reason for exam:- >ABDOMINAL PAINFINAL REPORT RAD, [...] 06/01/2019 01:44:40 CBC W/PLT COUNT & AUTO [id number] 00:59:00 Test Item Value Reference Range Interpretation [...] (BEAKER) (test code = 2801) RESPIRATORY PANEL [id number] 16:44:00 Test Item Value Reference Range Interpretation [...] detected Not detected, (BEAKER) (test code = 1579) Equivocal PARAINFLUENZA VIRUS 1 Not detected Not detected, (BEAKER) (test code = 2691) Equivocal PARAINFLUENZA VIRUS 2 Not detected Not detected, (BEAKER) (test code = 2692) Equivocal PARAINFLUENZA VIRUS 3 Not detected Not detected, (BEAKER) (test code = 2693) Equivocal PARAINFLUENZA VIRUS 4 Not detected Not detected, (BEAKER) (test code = 9240) Equivocal ADENOVIRUS (BEAKER) (test Not detected Not [...] decisions. This sample was tested at the [facility]ostics [facility] using the [employer] Frontline TechnologyArray Respiratory Panel. It is FDA cleared and has been verified and approved by the [facility] for clinical use on nasopharyngeal swab specimens.The performance of the FilmArrayRP has not been established in individuals who received influenza vaccine. Recent administration of a nasal influenza vaccine may cause false positive results for Influenza A and/orInfluenza B.[id number] 06:22:00 Test Item Value Reference Range Interpretation Comments MAGNESIUM (BEAKER) 2.2 mg/dL 1.6-2.6 Specimen slightly (test code = 627) hemolyzed BASIC METABOLIC [id number] 06:22:00 Test Item Value Reference Range Interpretation [...] PATIEN TS. CBC W/PLT COUNT & AUTO [id number] 06:01:00 Test Item Value Reference Range Interpretation [...] = 2801) CBC W/PLT COUNT & AUTO [id number] 07:32:00 Test Item Value Reference Range Interpretation [...] 3438) Received comment: User comments: Slide comments:CALCIUM, [id number] 05:25:00 Test Item Value Reference Range Interpretation Comments CALCIUM IONIZED (BEAKER) (test 1.14 mmol/L 1.12-1.27 code = 698) PH, BLOOD (BEAKER) (test code = 7.41 1810) [id number] 05:04:00 Test Item Value Reference Range Interpretation Comments PHOSPHORUS (BEAKER) (test code = 2.6 mg/dL 2.3-4.7 604) [id number] 05:04:00 Test Item Value Reference Range Interpretation Comments MAGNESIUM (BEAKER) (test code = 1.9 mg/dL 1.6-2.6 627) BASIC METABOLIC [id number] 05:04:00 Test Item Value Reference Range Interpretation [...] S NOT APPLICABLE FOR DIALYSIS PATIEN TS. CT, [id number] 17:54:00FINAL REPORT CT scan of the abdomen [...] colon.5. Nonocclusive renal calculi. Signed: Ludin Rich MDReport Verified Date/Time: 03/27/2019 17:54:25 Reading Location: [address] Consult Reading Room CBC W/PLT COUNT & AUTO [id number] 10:54:00 Test Item Value Reference Range Interpretation [...] = 3438) Received comment: User comments: Slide comments:[id number] 06:36:00 Test Item Value Reference Range Interpretation Comments PHOSPHORUS (BEAKER) (test code = 2.1 mg/dL 2.3-4.7 L 604) [id number] 06:36:00 Test Item Value Reference Range Interpretation Comments MAGNESIUM (BEAKER) (test code = 1.6 mg/dL 1.6-2.6 627) BASIC METABOLIC [id number] 06:36:00 Test Item Value Reference Range Interpretation [...] NOT APPLICABLE FOR DIALYSIS PATIEN TS. CALCIUM, [id number] 06:23:00 Test Item Value Reference Range Interpretation Comments CALCIUM IONIZED (BEAKER) (test 1.14 mmol/L 1.12-1.27 code = 698) PH, BLOOD (BEAKER) (test code = 7.46 1810) RAD, ABDOMEN/KUB, 1 VIEW [id number] 16:14:00Reason for exam:->constipation FINAL REPORT EXAM: AP [...] No acute osseous abnormality. Signed: Diane Morrell MDReport Verified Date/Time: 03/26/2019 16:14:33 [facility] CBC W/PLT COUNT & AUTO [id number] 10:48:00 Test Item Value Reference Range Interpretation [...] (BEAKER) (test code Normal = 762) CALCIUM, [id number] 06:53:00 Test Item Value Reference Range Interpretation Comments CALCIUM IONIZED (BEAKER) (test 1.14 mmol/L 1.12-1.27 code = 698) PH, BLOOD (BEAKER) (test code = 7.44 1810) [id number] 06:33:00 Test Item Value Reference Range Interpretation Comments PHOSPHORUS (BEAKER) (test code = 2.6 mg/dL 2.3-4.7 604) [id number] 06:33:00 Test Item Value Reference Range Interpretation Comments MAGNESIUM (BEAKER) (test code = 1.4 mg/dL 1.6-2.6 L 627) BASIC METABOLIC [id number] 06:33:00 Test Item Value Reference Range Interpretation [...] S NOT APPLICABLE FOR DIALYSIS PATIEN TS. [id number] 06:28:00 Test Item Value Reference Range Interpretation Comments PHOSPHORUS (BEAKER) (test code = 2.8 mg/dL 2.3-4.7 604) [id number] 06:28:00 Test Item Value Reference Range Interpretation Comments MAGNESIUM (BEAKER) (test code = 1.7 mg/dL 1.6-2.6 627) BASIC METABOLIC [id number] 06:28:00 Test Item Value Reference Range Interpretation [...] NOT APPLICABLE FOR DIALYSIS PATIEN TS. CALCIUM, [id number] 06:27:00 Test Item Value Reference Range Interpretation Comments CALCIUM IONIZED (BEAKER) (test 1.18 mmol/L 1.12-1.27 code = 698) PH, BLOOD (BEAKER) (test code = 7.33 1810) CBC W/PLT COUNT & AUTO [id number] 14:47:00 Test Item Value Reference Range Interpretation [...] code = 2801) RAD, ABDOMEN/KUB, 1 VIEW [id number] 10:35:00Reason for exam:- >distentionShould this be performed at the bedside?->YesFINAL REPORT AP abdomen HISTORY: Distention COMPARISON: 03/21/2018 IMPRESSION:Decreased colonic stool burden. Some prominent aeration in the right lower quadrant. Recommend continued radiographic follow-up as developing ileus not excluded. Examination is insensitive for detection of free air. Signed: Angel Santillan MDReport Verified Date/Time: 03/24/2019 10:35:17 Reading Location: [address] Consult Reading Room [id number] 07:21:00 Test Item Value Reference Range Interpretation Comments PHOSPHORUS (BEAKER) (test code = 2.4 mg/dL 2.3-4.7 604) [id number] 07:21:00 Test Item Value Reference Range Interpretation Comments MAGNESIUM (BEAKER) (test code = 1.4 mg/dL 1.6-2.6 L 627) BASIC METABOLIC [id number] 07:21:00 Test Item Value Reference Range Interpretation [...] NOT APPLICABLE FOR DIALYSIS PATIEN TS. CALCIUM, [id number] 06:37:00 Test Item Value Reference Range Interpretation Comments CALCIUM IONIZED (BEAKER) (test 1.14 mmol/L 1.12-1.27 code = 698) PH, BLOOD (BEAKER) (test code = 7.43 1810) POCT-GLUCOSE [id number] 18:06:00 Test Item Value Reference Range Interpretation Comments POC-GLUCOSE METER 106 mg/dL 70-110 TESTED AT [place] [address] (BEAKER) (test code = [facility] 1538) [address] CALCIUM, [id number] 13:41:00 Test Item Value Reference Range Interpretation Comments CALCIUM IONIZED (BEAKER) (test 0.83 mmol/L 1.12-1.27 L code = 698) PH, BLOOD (BEAKER) (test code = 7.47 1810) POCT-GLUCOSE [id number] 11:59:00 Test Item Value Reference Range Interpretation Comments POC-GLUCOSE METER 93 mg/dL 70-110 TESTED AT [place] [id number] (BEAKER) (test code = [facility] [address]38) [id number] 10:39:00 Test Item Value Reference Range Interpretation Comments MAGNESIUM (BEAKER) 1.6 mg/dL 1.6-2.6 Specimen slightly (test code = 627) hemolyzed [id number] 10:39:00 Test Item Value Reference Range Interpretation Comments PHOSPHORUS (BEAKER) 2.5 mg/dL 2.3-4.7 Specimen slightly (test code = 604) hemolyzed BASIC METABOLIC [id number] 10:39:00 Test Item Value Reference Range Interpretation [...] PATIEN TS. CBC W/PLT COUNT & AUTO [id number] 10:13:00 Test Item Value Reference Range Interpretation [...] PERCENT (BEAKER) (test code = 2801) POCT-GLUCOSE [id number] 06:33:00 Test Item Value Reference Range Interpretation Comments POC-GLUCOSE METER 74 mg/dL 70-110 TESTED AT [facility] 6720 (BEAKER) (test code = [place] [address] 1538) [id number] 07:02:00 Test Item Value Reference Range Interpretation Comments MAGNESIUM (BEAKER) (test code = 1.6 mg/dL 1.6-2.6 627) BASIC METABOLIC [id number] 07:02:00 Test Item Value Reference Range Interpretation [...] TS. RAD, ABDOMEN SERIES W/ UPRIGHT PA [id number] 00:30:00Reason for exam:- >SBOReason for exam:->EMESISFINAL REPORT [...] further evaluation if clinically appropriate. Signed: Eamon Nagyeport Verified Date/Time: 03/22/2019 00:30:32 Reading Location: [address] Reading Room URINALYSIS W/ [id number] 21:18:00 Test Item Value Reference Range Interpretation [...] 0 /HPF SOURCE(BEAKER) (test code = 2795) [id number] 20:16:00 Test Item Value Reference Range Interpretation Comments LIPASE (BEAKER) (test code = 749) < U/L 8-78 L BASIC METABOLIC [id number] 20:14:00 Test Item Value Reference Range Interpretation [...] APPLICABLE FOR DIALYSIS PATIEN TS. HEPATIC FUNCTION [id number] 20:14:00 Test Item Value Reference Range Interpretation [...] 6-55 347) CBC W/PLT COUNT & AUTO [id number] 19:59:00 Test Item Value Reference Range Interpretation [...] PERCENT (BEAKER) (test code = 2801) POCT-GLUCOSE [id number] 21:18:00 Test Item Value Reference Range Interpretation Comments POC-GLUCOSE METER 155 mg/dL 70-110 H TESTED AT [place] [address] (BEBANNER) ([facility] = [facility] [address] POCT-GLUCOSE [id number] 12:24:00 Test Item Value Reference Range Interpretation Comments POC-GLUCOSE METER 179 mg/dL 70-110 H TESTED AT [facility] 6720 (BEBANNER) (test code = [facility] 1538) [address] POCT-GLUCOSE [id number] 09:01:00 Test Item Value Reference Range Interpretation Comments POC-GLUCOSE METER 79 mg/dL 70-110 TESTED AT [facility] 6720 (BEBANNER) (test code = [facility] [address] 1538) POCT-GLUCOSE [id number] 21:50:00 Test Item Value Reference Range Interpretation Comments POC-GLUCOSE METER 134 mg/dL 70-110 H TESTED AT [facility] 6720 (BEAKER) (test code = [place] 1536) [address] BASIC METABOLIC [id number] 06:49:00 Test Item Value Reference Range Interpretation [...] PATIEN TS. CBC W/PLT COUNT & AUTO [id number] 06:27:00 Test Item Value Reference Range Interpretation [...] PERCENT (BEAKER) (test code = 2801) POCT-GLUCOSE [id number] 22:51:00 Test Item Value Reference Range Interpretation Comments POC-GLUCOSE METER 128 mg/dL 70-110 H TESTED AT [facility] 6720 (BEBANNER) (test code = [facility] 1538) [address] CT, [id number] 23:14:00FINAL REPORT ABDOMINAL AND PELVIS CT DATED [...] MDReport Verified Date/Time: 02/14/2019 23:14:03 Reading Location: [facility] C0W Consult Reading Room LIPASE 2019-02-14 21:10:00 Test Item Value Reference Range Interpretation Comments LIPASE (BEAKER) (test code = 749) < U/L 8-78 L COMPREHENSIVE METABOLIC [id number] 21:09:00 Test Item Value Reference Range Interpretation [...] APPLICABLE FOR DIALYSIS PATIEN TS. LACTIC ACID, [id number] 21:04:00 Test Item Value Reference Range Interpretation Comments LACTATE BLOOD VENOUS (2) (BEAKER) 0.8 mmol/L 0.5-2.2 (test code = 2872) BLOOD GAS, [id number] 21:04:00 Test Item Value Reference Range Interpretation [...] 21.0 % CBC W/PLT COUNT & AUTO [id number] 20:49:00 Test Item Value Reference Range Interpretation [...] (test code = 2801) AFB CULTURE + [id number] 10:54:00 Test Item Value Reference Interpretation Comments Range CULTURE (BEAKER) MYCOBACTERIUM A Mycobacter iu (test code = 1095) SPECIES species* - Most closely related to M.yongonense/M. mars eillenseAscension St[facility] icat ion and susceptibility performed by:[facility] , Dept. of Microbiology Research, Dr. Rao Olvera [facility], [address] [address], [place], [place] [address] Amikacin (test code mcg/mL S = 1) Clarithromycin mcg/mL S (test code = 42) AFB SMEAR (AKER) No acid fast (test code = 994) bacilli seen By partial 16S rRNA gene sequencing,this isolate matches the M.yongonense/M.marseillense type strains 99.8%. These species belong to a group of species within the M.avium complex referred to as MAC "X". Most isolates are single,grow in broth only, and not related to human disease.CF RESPIRATORY [id number] 00:29:00 Test Item Value Reference Range Interpretation Comments CULTURE (AKER) (test ESCHERICHIA COLI A < 1+ Escherichia [...] S Sulfamethoxazole (test code = 47) CULTURE (Marketing Munch) (test ESCHERICHIA COLI A < 1+ Escherichia [...] maria del carmen present- CT ABD PELVIS W/[id number] 23:53:00 Name: VELIA RIVERA [facility] : 1975 Age/S: 43 / M [address] Unit #: [id number] Loc: [place] [address] Phys: Angela Diaz MD Acct: [id number] Dis Date: Status: REG ER PHONE #: [phone] Exam Date: 11/20/2018 5383 FAX #: Reason: RLQ pain, hx of SBO EXAMS: CPT: [id number] CT ABD PELVIS W/CONT 76819 Site ID: [id number] CLINICAL HISTORY: Right lower quadrant pain, history of small bowel obstruction TECHNIQUE: Axial images of the abdomen and pelvis were obtained from diaphragm to the pubic symphysis with intravenous contrast. CT dose lowering technique utilized, with adjustment of MA/kV according to patient size and automated exposure control. COMPARISON: CT abdomen and pelvis March 17 2018 DISCUSSION: Mild lung base atelectasis. The heart size is normal. The liver is normalin size and contour, without focal abnormality. No biliary ductal dilatation. The spleen, pancreas and adrenal glands are unremarkable. Both kidneys are normal in size. 1 mm nonobstructing left upper an d lower pole renal stones. No hydronephrosis or enhancing renal mass. Vascular structures are normalin caliber and appearance. Moderate volume of stool throughout the colon, with a patulous appearanceto the cecum. No bowel obstruction or acute inflammatory change. Prostate gland and urinary bladder are unremarkable. No suspicious bony lesions. IMPRESSION: Moderate volume of stool throughout the colon, with a patulous appearance to the cecum. No bowel obstruction or acute inflammatory change. PAGE 1 Signed Report (CONTINUED) Name: VELIA RIVERA [facility] : 1975 Age/S: 43 / M [address] Unit #: [id number] Loc: [place] [address] Phys: Angela Diaz MD Acct: [id number] Dis Date: Status: REG ER PHONE #: [phone] Exam Date: 11/20/2018 235 FAX #: Reason: RLQ pain, hx of SBO EXAMS: CPT: [id number] CT ABD PELVIS W/CONT 41446 (Continued) at 2353 Reported and signed by: Florence Ferrera M.D. CC: Tejinder Burch MD; Angela Diaz MD; Yani Gonzalez NP Technologist:Florencia Pinto RT(R)(CT); J CTDI: DLP: Trnscb Date/Time: 11/20/2018 (363) IbrahimaAJP6 Orig Print D/T: S: 11/20/2018 (6433) CTDI: DLP: PAGE 2 Signed ReportBASIC METABOLIC [id number] 23:24:00 Test Item Value Reference Range Interpretation [...] CA) 8.3 MG/DL 8.5-10.1 L HEPATIC FUNCTION [id number] 23:24:00 Test Item Value Reference Range Interpretation [...] 93 Unit/L 50-136 N code = ALKP) [id number] 23:24:00 Test Item Value Reference Range Interpretation Comments LIPASE (test code = LIP) 28 Unit/L 114-286 L URINALYSIS [id number] 23:21:00 Test Item Value Reference Range Interpretation [...] DIPSTICK (test code = LEUU) CBC W/AUTO [id number] 23:18:00 Test Item Value Reference Range Interpretation [...] = NO DIFF/SCN CRITERIA MDIFF) BASIC METABOLIC [id number] 23:12:00 Test Item Value Reference Range Interpretation [...] CA) 8.3 MG/DL 8.5-10.1 L HEPATIC FUNCTION [id number] 23:12:00 Test Item Value Reference Range Interpretation [...] TOTAL (test code Unit/L 50-136 = ALKP) [id number] 23:12:00 Test Item Value Reference Range Interpretation Comments LIPASE (test code = LIP) 28 Unit/L 114-286 L CF RESPIRATORY [id number] 09:28:00 Test Item Value Reference Range Interpretation [...] Resistant <0 or >4 CULTURE (BEAKER) (test A <1+ E scherichia code = 1095) coli CULTURE (BEAKER) (test ESCHERICHIA COLI A 2 + Pseudomonas [...] Normal respiratory maria del carmen presentCF RESPIRATORY [id number] 15:22:00 Test Item Value Reference Range Interpretation [...] >4 4+ Normal respiratory maria del carmen [id number] 09:23:00 Test Item Value Reference Range Interpretation Comments PHOSPHORUS (BEAKER) (test code = 2.4 mg/dL 2.3-4.7 604) [id number] 09:23:00 Test Item Value Reference Range Interpretation Comments MAGNESIUM (BEAKER) (test code = 1.8 mg/dL 1.6-2.6 627) BASIC METABOLIC [id number] 09:23:00 Test Item Value Reference Range Interpretation [...] PATIEN TS. CBC W/PLT COUNT & AUTO [id number] 09:03:00 Test Item Value Reference Range Interpretation [...] PERCENT (BEAKER) (test code = 2801) SPIN/CONCENTRATION [id number] 14:50:00 Test Item Value Reference Range Interpretation Comments CONCENTRATION CHARGED (BEAKER) (test Done code = 2657) TOBRAMYCIN LEVEL, [id number] 07:27:00 Test Item Value Reference Range Interpretation Comments TOBRAMYCIN RANDOM (BEAKER) (test 1.7 ug/mL code = 544) Reference Range: No [id number] 07:24:00 Test Item Value Reference Range Interpretation Comments PHOSPHORUS (BEAKER) (test code = 2.5 mg/dL 2.3-4.7 604) [id number] 07:24:00 Test Item Value Reference Range Interpretation Comments MAGNESIUM (BEAKER) (test code = 1.5 mg/dL 1.6-2.6 L 627) BASIC METABOLIC [id number] 07:24:00 Test Item Value Reference Range Interpretation [...] PATIEN TS. CBC W/PLT COUNT & AUTO [id number] 07:03:00 Test Item Value Reference Range Interpretation [...] 0-1 PERCENT (BEAKER) (test code = 2801) [id number] 04:19:00 Test Item Value Reference Range Interpretation Comments MAGNESIUM (BEAKER) 1.6 mg/dL 1.6-2.6 Specimen slightly (test code = 627) hemolyzed [id number] 04:19:00 Test Item Value Reference Range Interpretation Comments PHOSPHORUS (BEAKER) 2.6 mg/dL 2.3-4.7 Specimen slightly (test code = 604) hemolyzed BASIC METABOLIC [id number] 04:19:00 Test Item Value Reference Range Interpretation [...] PATIEN TS. CBC W/PLT COUNT & AUTO [id number] 04:09:00 Test Item Value Reference Range Interpretation [...] PERCENT (BEAKER) (test code = 2801) CT, [id number] 21:54:00FINAL REPORT EXAM: CT of the abdomen [...] at approximately 9:50 PM 10/25/2018. Signed: Magno Carvajaleport Verified Date/Time: 10/25/2018 21:54:25 Reading Location: [address] Reading Room BASIC METABOLIC [id number] 20:13:00 Test Item Value Reference Range Interpretation [...] APPLICABLE FOR DIALYSIS PATIEN TS. URINALYSIS W/ [id number] 19:19:00 Test Item Value Reference Range Interpretation [...] 520) SOURCE(BEAKER) (test code = Urine, Voided 7112) CBC W/PLT COUNT & AUTO [id number] 19:02:00 Test Item Value Reference Range Interpretation [...] (test code = 2801) AFB CULTURE + [id number] 12:42:00 Test Item Value Reference Range Interpretation Comments CULTURE (BEAKER) (test No acid-fast bacilli code = 1095) isolated in 42 days AFB SMEAR (BEAKER) No acid fast bacilli (test code = 994) seen FUNGUS CULTURE + [id number] 06:40:00 Test Item Value Reference Range Interpretation Comments CULTURE (BEAKER) (test No fungus isolated in code = 1095) 28 days FUNGUS SMEAR (BEAKER) No fungi seen (test code = 1406) RAD, ABDOMEN/KUB, 1 VIEW [id number] 15:59:00Reason for exam:->assess for stool burdenShould this be performed at the bedside?->YesFINAL REPORT History: Assess for stool burden COMPARISON: 08/03/2018 DISCUSSION: A signal frontal view of the abdomen was submitted for interpretation. There is a moderate-large amount of colonic stool, seen most significantly in the cecum/ascending colon. Of note, the examinationis not sensitive for the evaluation of free air. There is no significant small bowel distention. No lytic or blastic abnormalities are appreciated. Signed: Caio Arteaga MDReport Verified Date/Time: 09/13/2018 15:59:37 Reading Location: [address] Consult Reading Room [facility] RESPIRATORY [id number] 12:21:00 Test Item Value Reference Range Interpretation [...] 47) 2+ Normal respiratory maria del carmen [id number] 07:17:00 Test Item Value Reference Range Interpretation Comments PHOSPHORUS (BEAKER) (test code = 3.2 mg/dL 2.3-4.7 604) [id number] 07:17:00 Test Item Value Reference Range Interpretation Comments MAGNESIUM (BEAKER) (test code = 1.6 mg/dL 1.6-2.6 627) BASIC METABOLIC [id number] 07:17:00 Test Item Value Reference Range Interpretation [...] PATIEN TS. CBC W/PLT COUNT & AUTO [id number] 07:16:00 Test Item Value Reference Range Interpretation [...] 0-1 PERCENT (BEAKER) (test code = 2801) [id number] 12:19:00 Test Item Value Reference Range Interpretation Comments PHOSPHORUS (BEAKER) (test code = 3.3 mg/dL 2.3-4.7 604) [id number] 12:19:00 Test Item Value Reference Range Interpretation Comments MAGNESIUM (BEAKER) (test code = 2.1 mg/dL 1.6-2.6 627) BASIC METABOLIC [id number] 12:19:00 Test Item Value Reference Range Interpretation [...] PATIEN TS. CBC W/PLT COUNT & AUTO [id number] 11:54:00 Test Item Value Reference Range Interpretation [...] PERCENT (BEAKER) (test code = 2801) SPIN/CONCENTRATION [id number] 00:15:00 Test Item Value Reference Range Interpretation Comments CONCENTRATION CHARGED (BEAKER) (test Done code = 2657) CT, [id number] 21:49:00Reason for exam:->ABDOMINAL PAINWhat is the patient's [...] the right middle lobe possibly related to historyof cystic fibrosis. Hepatic steatosis. Again seen is [...] continued attention on follow-up imaging. Signed: Debbie Ding MDReport Verified Date/Time: 09/08/2018 21:49:11 Reading Location: [address] Transitional Reading Room URINALYSIS W/ [id number] 21:16:00 Test Item Value Reference Range Interpretation [...] 1574) SOURCE(BEAKER) (test code = Urine, Voided 0747) [id number] 19:36:00 Test Item Value Reference Range Interpretation Comments LIPASE (BEAKER) (test code = 749) 31 U/L 8-78 BASIC METABOLIC [id number] 19:36:00 Test Item Value Reference Range Interpretation [...] APPLICABLE FOR DIALYSIS PATIEN TS. HEPATIC FUNCTION [id number] 19:36:00 Test Item Value Reference Range Interpretation [...] (test code = 27 U/L 6-55 347) [id number] 19:30:00 Test Item Value Reference Range Interpretation Comments PARTIAL THROMBOPLASTIN TIME 28.5 seconds 22.5-36.0 (BEAKER) (test code = 760) PROTHROMBIN TIME/[id number] 19:29:00 Test Item Value Reference Range Interpretation [...] mechanical heart valves.CBC W/PLT COUNT & AUTO [id number] 19:22:00 Test Item Value Reference Range Interpretation [...] 0-1 PERCENT (BEAKER) (test code = 2801) [id number] 06:48:00 Test Item Value Reference Range Interpretation Comments PHOSPHORUS (BEAKER) (test code = 3.0 mg/dL 2.3-4.7 604) [id number] 06:48:00 Test Item Value Reference Range Interpretation Comments MAGNESIUM (BEAKER) (test code = 1.5 mg/dL 1.6-2.6 L 627) BASIC METABOLIC [id number] 06:48:00 Test Item Value Reference Range Interpretation [...] NOT APPLICABLE FOR DIALYSIS PATIEN TS. PROTHROMBIN [id number] 06:43:00 Test Item Value Reference Range Interpretation [...] code = 685) ALPHA FETOPROTEIN (AFP), TUMOR [id number] 13:38:00 Test Item Value Reference Range Interpretation Comments ALPHA-FETOPROTEIN (BEAKER) (test 2.2 ng/mL <10.0 code = 1094) RAD, CHEST, 1 VIEW, NON [id number] 16:08:00Reason for exam:->CFShould this be performed at the bedside?->YesFINAL REPORT CLINICAL HISTORY: CF TECHNIQUE: 1 view of the chest COMPARISON: 07/31/2018 IMPRESSION: There are no focal infiltrates or pleural effusions. The cardiomediastinal silhouette is within normal limits for size. The visualized bones are intact. Signed: Murray Gomez MDReport Verified Date/Time: 08/29/2018 16:08:13 Reading Location: [facility] C013W Consult Reading Room CT, [id number] 19:06:00Reason for exam:->abdominal painFINAL REPORT CT scan [...] MDReport Verified Date/Time: 08/28/2018 19:06:10 Reading Location: [facility] C013W Consult Reading Room [id number] 16:08:00 Test Item Value Reference Range Interpretation Comments LIPASE (BEAKER) (test code = 749) < U/L 8-78 L BASIC METABOLIC [id number] 15:57:00 Test Item Value Reference Range Interpretation [...] APPLICABLE FOR DIALYSIS PATIEN TS. HEPATIC FUNCTION [id number] 15:57:00 Test Item Value Reference Range Interpretation [...] 6-55 347) CBC W/PLT COUNT & AUTO [id number] 15:44:00 Test Item Value Reference Range Interpretation [...] PERCENT (BEAKER) (test code = 2801) BLOOD [id number] 18:01:00 Test Item Value Reference Range Interpretation Comments CULTURE (BEAKER) (test No growth in 5 days code = 1095) BLOOD [id number] 15:01:00 Test Item Value Reference Range Interpretation Comments CULTURE (BEAKER) A From Aerobi c Bottle (test code = Only Micrococcu s 1095) species GRAM STAIN RESULT From aerobic (BEAKER) (test bottle only: gram code = 1123) positive cocci in clusters BLOOD [id number] 18:00:00 Test Item Value Reference Range Interpretation Comments CULTURE (BEAKER) (test No growth in 5 days code = 1095) RAD, ABDOMEN/KUB, 1 VIEW [id number] 09:39:00Reason for exam:->f/u DIOSFINAL REPORT TECHNIQUE: Supine views of the abdomen dated 08/03/2018. HISTORY: Follow-up LIONEL COMPARISON: Abdominal radiographs dated 08/02/2018 IMPRESSION:Surgical clip and sutures are seen in the right lower quadrant. There is stool throughout the colon similar in appearance to the prior examination. No free intraperitoneal air. No abnormal soft tissue mass. No fracture. Signed: Sae [place] Verified Date/Time: 08/03/2018 09:39:24 Reading Location: [facility] Radiology Reading Room RAD, ABDOMEN/KUB, 1 VIEW [...] MDReport Verified Date/Time: 08/02/2018 13:48:07 Reading Location: [facility] C013W Consult Reading Room BLOOD CULTURE IDENTIFICATION [id number] 13:27:00 Test Item Value Reference Range Interpretation Comments LISTERIA MONOCYTOGENES (test Not detected Not detected code = 6007533) STAPHYLOCOCCUS (test code = Not detected Not detected 9626063) STAPHYLOCOCCUS AUREUS (test code Not detected Not detected = 8651289) STREPTOCOCCUS (test code = Not detected Not detected 0486413) STREPTOCOCCUS AGALACTIAE (GROUP Not detected Not detected B) (test code = 7320294) STREPTOCOCCUS PNEUMONIAE (test Not detected Not detected code = 8204573) STREPTOCOCCUS PYOGENES (GROUP A) Not detected Not detected (test code = 8835819) ACINETOBACTER BAUMANNII (test Not detected Not detected code = 3615150) HAEMOPHILUS INFLUENZAE (test Not detected Not detected code = 2581427) NEISSERIA MENINGITIDIS (test Not detected Not detected code = 6633540) ENTEROBACTERIACEAE (test code = Not detected Not detected 5986383) ENTEROBACTER CLOACOE COMPLEX Not detected Not detected (test code = 2198864) KLEBSIELLA OXYTOCA (test code = Not detected Not detected 7727492) KLEBSIELLA PNEUMONIAE (test code Not detected Not detected = 1650) PROTEUS (test code = 3036816) Not detected Not detected SERRATIA MARCESCENS (test code = Not detected Not detected 6009322) PADILLA ALBICANS (test code = Not detected Not detected 6822491) PADILLA GLABRATA (test code = Not detected Not detected 6533307) PADILLA KRUSEI (test code = Not detected Not detected 4803896) PADILLA PARAPSILOSIS (test code Not detected Not detected = 4949225) PADILLA TROPICALIS (test code = Not detected Not detected 8595798) ESCHERICHIA COLI (test code = Not detected Not detected 8584977) METHICILLIN-RESISTANCE GENE Not detected (test code = 0736633) VANCOMYCIN-RESISTANCE GENE (test Not detected code = 1120307) CARBAPENEM-RESISTANCE GENE (test Not detected code = 7781242) ENTEROCOCCUS-BEAKER (test code = Not detected Not detected 2084374) PSEUDOMONAS AERUGINOSA-BEAKER Not detected Not detected (test code = 9881615) Other bacteria and resistance markers not targeted by this PCR panel cannot be excluded; therefore clinical correlation and follow up of serology, culture results, and other molecular studies is required. The results are not intended to be used as the sole means for clinical diagnosis or patient management decisions. This sample was tested at the [facility] Molecular Diagnostics Laboratory using the [employer] Blood Culture ID Panel. It is FDA cleared and has been verified and approved by the [facility] Molecular Diagnostics Laboratory for clinical use. This laboratory is CLIA-certified and College ofAmerican Pathologists (CAP)-accredited to perform high complexity testing.BASIC METABOLIC [id number] 10:10:00 Test Item Value Reference Range Interpretation [...] PATIEN TS. CBC W/PLT COUNT & AUTO [id number] 09:30:00 Test Item Value Reference Range Interpretation [...] (test code = 2801) RAD, CHEST, 2 [id number] 20:55:00Reason for exam:->Cystic fibrosisFINAL REPORT TECHNIQUE: 2 [...] MDReport Verified Date/Time: 07/31/2018 20:55:36 [facility] [id number] 06:51:00 Test Item Value Reference Range Interpretation [...] PATIEN TS. CBC W/PLT COUNT & AUTO [id number] 06:09:00 Test Item Value Reference Range Interpretation [...] (BEAKER) (test code = 2801) U/S, ABDOMINAL, [id number] 11:04:00Abdomen limited area? Add comment if clarification [...] MDReport Verified Date/Time: 07/30/2018 11:04:05 Reading Location: [address] Transitional Reading Room CT, [id number] 10:05:00Reason for exam:->Abdominal painWhat is the patient's sedation requirement?->No SedationFINAL REPORT ABDOMINAL AND PELVIS CT DATED 07/30/2018 COMPARISON: July 26, 2018 CLINICAL INFORMATION: Abdominal paindiffuse abd pain TECHNIQUE: Axial images of the abdomen and pelvis were obtained from diaphragm to the pubic symphysis with intravenous contrast. This exam was performed according to our departmental dose-optimization program, which includes automated exposure co ntrol, adjustment of the mA and/or kV according to patient size and/or use of interactive reconstruction technique. COMMENT: Liver and spleen are normal in size without focal abnormality. Gallbladder is distended. No gallstone or biliary dilatation is noted. Pancreas is somewhat atrophic. The adrenalsare unremarkable. Both kidneys are normal in size [...] small and large bowel suggestive of enterocolitis. Pleasecorrelate clinically. Signed: Carmelo Tierney MDReport Verified Date/Time: 07/30/2018 10:05:17 Reading Location: [facility] C013Y CT Body Reading Room 10:05 AMURINALYSIS WITH MICROSCOPIC IF [id number] 09:06:00 Test Item Value Reference Range Interpretation [...] = 463) SOURCE(BEAKER) (test code = 2795) [id number] 08:53:00 Test Item Value Reference Range Interpretation Comments LIPASE (BEAKER) (test code = 749) < U/L 8-78 L [id number] 08:53:00 Test Item Value Reference Range Interpretation [...] is 2.5-3.5 for patients with mechanical heart valves.[id number] 08:46:00 Test Item Value Reference Range Interpretation Comments MAGNESIUM (BEAKER) (test code = 1.6 mg/dL 1.6-2.6 627) COMPREHENSIVE METABOLIC [id number] 08:46:00 Test Item Value Reference Range Interpretation [...] PATIEN TS. CBC W/PLT COUNT & AUTO [id number] 08:34:00 Test Item Value Reference Range Interpretation [...] 3438) Received comment: User comments: Slide comments:CT, [id number] 18:32:00 Reason for exam:->ABDOMINAL PAINWhat is the [...] MDReport Verified Date/Time: 07/26/2018 18:32:08 Reading Location: [facility] C013Y CT Body Reading Room ALT (SGPT)2018-07-26 16:15:00 Test Item Value Reference Range Interpretation Comments ALT (SGPT) (BEAKER) (test code = 347) 40 U/L 6-55 AST (SGOT)2018-07-26 16:15:00 Test Item Value Reference Range Interpretation Comments AST (SGOT) (BEAKER) (test code = 353) 31 U/L 5-34 BASIC METABOLIC [id number] 16:15:00 Test Item Value Reference Range Interpretation [...] APPLICABLE FOR DIALYSIS PATIEN TS. BILIRUBIN, ADULT [id number] 16:15:00 Test Item Value Reference Range Interpretation Comments BILIRUBIN TOTAL (BEAKER) (test code 1.0 mg/dL 0.2-1.2 = 377) [id number] 16:15:00 Test Item Value Reference Range Interpretation Comments LIPASE (BEAKER) (test code = 749) < U/L 8-78 L CBC W/PLT COUNT & AUTO [id number] 16:00:00 Test Item Value Reference Range Interpretation [...] code = 2801) SPUTUM CULTURE + GRAM [id number] 08:14:00 Test Item Value Reference Range Interpretation [...] 0-5 epithelial (BEAKER) (test code cells = 212066) GRAM STAIN RESULT 1+ gram negative (BEAKER) (test code rods = 224374) GRAM STAIN RESULT 1+ gram positive (BEAKER) (test code rods = 671743) GRAM STAIN RESULT 1+ gram positive (BEAKER) (test code cocci in chains, = 318814) pairs and clusters <1+ Normal respiratory maria del carmen presentBLOOD [id number] 11:00:00 Test Item Value Reference Range Interpretation Comments CULTURE (BEAKER) (test No growth in 5 days code = 1095) BASIC METABOLIC [id number] 06:31:00 Test Item Value Reference Range Interpretation [...] 0-0 (BEAKER) (test code = 413) [place], [id number] 16:00:00Reason for exam:->CF with LIONEL, needs barium contrast enema.FINAL REPORT Gastrografin enema CLINICAL HISTORY: Cystic fibrosis with LIONEL DISCUSSION: Sandwich Maker film of the abdomen demonstrates large amount [...] Therapeutic enema as described. Signed: Socrates Waters Verified Date/Time: 07/21/2018 16:00:52 Reading Location: [address] [address] Consult Reading Room CREATININE, RANDOM [id number] 12:59:00 Test Item Value Reference Range Interpretation Comments CREATININE URINE (BEAKER) (test 88.2 mg/dL code = 375) Reference Range: No NormalsSODIUM, RANDOM [id number] 12:59:00 Test Item Value Reference Range Interpretation Comments SODIUM URINE (BEAKER) (test code = 167 meq/L 243) Reference Range: No NormalsURINALYSIS W/ [id number] 10:58:00 Test Item Value Reference Range Interpretation [...] 516) SOURCE(BEAKER) (test code = Urine, Voided 1388) TSH/FREE T4 IF [id number] 10:13:00 Test Item Value Reference Range Interpretation Comments THYROID STIMULATING HORMONE 1.64 uIU/mL 0.35-4.94 (BEAKER) (test code = 772) TROPONIN [id number] 10:04:00 Test Item Value Reference Range Interpretation [...] acute neurological disease, and persistent tachyarrhythmia.BASIC METABOLIC [id number] 05:36:00 Test Item Value Reference Range Interpretation [...] code = 413) RAD, ABDOMEN/KUB, 1 VIEW [id number] 16:20:00Reason for exam:->ileusFINAL REPORT Abdomen one view [...] evident. Signed: Ascencion Chase MDReport Verified Date/Time: 07/20/2018 16:20:23 Reading Location: [address] Consult Reading Room [id number] 03:53:00 Test Item Value Reference Range Interpretation Comments MAGNESIUM (BEAKER) (test code = 1.7 mg/dL 1.6-2.6 627) BASIC METABOLIC [id number] 03:53:00 Test Item Value Reference Range Interpretation [...] PATIEN TS. CBC W/PLT COUNT & AUTO [id number] 03:31:00 Test Item Value Reference Range Interpretation [...] code = 2801) RAD, ABDOMEN/KUB, 1 VIEW [id number] 16:03:00Reason for exam:->obstruction FINAL REPORT Abdomen one [...] MDReport Verified Date/Time: 07/19/2018 16:03:55 Reading Location: [facility] C013W Consult Reading Room [id number] 05:28:00 Test Item Value Reference Range Interpretation Comments MAGNESIUM (BEAKER) (test code = 1.5 mg/dL 1.6-2.6 L 627) BASIC METABOLIC [id number] 05:28:00 Test Item Value Reference Range Interpretation [...] PATIEN TS. CBC W/PLT COUNT & AUTO [id number] 05:01:00 Test Item Value Reference Range Interpretation [...] code = 2801) RAD, ABDOMEN/KUB, 1 VIEW [id number] 08:45:00Reason for exam:->eval bowel obstructionFINAL REPORT Technique: [...] [place] Verified Date/Time: 07/18/2018 08:45:55 Reading Location: [facility] Radiology Reading Room MAGNESIUM 2018-07-18 07:03:00 Test Item Value Reference Range Interpretation Comments MAGNESIUM (BEAKER) (test code = 1.5 mg/dL 1.6-2.6 L 627) BASIC METABOLIC [id number] 07:03:00 Test Item Value Reference Range Interpretation [...] PATIEN TS. CBC W/PLT COUNT & AUTO [id number] 06:37:00 Test Item Value Reference Range Interpretation [...] code = 2801) URINALYSIS W/ REFLEX URINE [id number] 22:24:00 Test Item Value Reference Range Interpretation [...] Occasional SOURCE(BEAKER) (test code = 2795) CT, [id number] 21:37:00Reason for exam:->ABDOMINAL PAINReason for exam:->CYSTIC FIBROSISWhat [...] cystic fibrosis. Nonobstructing left nephrolithiasis. Signed: Debbie Ding Verified Date/Time: 07/17/2018 21:37:48 Reading Location: [facility] C013T Transitional Reading Room (CELLAVISION MANUAL DIFF)2018-07-17 20:15:00 [...] = 3438) Received comment: User comments: Slide comments:[id number] 20:05:00 Test Item Value Reference Range Interpretation Comments LIPASE (BEAKER) (test code = 749) < U/L 8-78 L COMPREHENSIVE METABOLIC [id number] 20:03:00 Test Item Value Reference Range Interpretation [...] PATIEN TS. CBC W/PLT COUNT & AUTO [id number] 19:57:00 Test Item Value Reference Range Interpretation [...] 0-1 PERCENT (BEAKER) (test code = 2801) [id number] 19:53:00 Test Item Value Reference Range Interpretation [...] is 2.5-3.5 for patients with mechanical heart valves.[id number] 05:38:00 Test Item Value Reference Range Interpretation Comments MAGNESIUM (BEAKER) (test code = 1.8 mg/dL 1.6-2.6 627) BASIC METABOLIC [id number] 05:38:00 Test Item Value Reference Range Interpretation [...] S NOT APPLICABLE FOR DIALYSIS PATIEN TS. [id number] 09:47:00 Test Item Value Reference Range Interpretation Comments MAGNESIUM (BEAKER) (test code = 1.3 mg/dL 1.6-2.6 L 627) BASIC METABOLIC [id number] 09:47:00 Test Item Value Reference Range Interpretation [...] NOT APPLICABLE FOR DIALYSIS PATIEN TS. HEMOGLOBIN [id number] 11:59:00 Test Item Value Reference Range Interpretation Comments HEMOGLOBIN A1C (BEAKER) (test code = 6.1 % 4.3-6.1 368) [id number] 05:49:00 Test Item Value Reference Range Interpretation Comments MAGNESIUM (BEAKER) (test code = 1.5 mg/dL 1.6-2.6 L 627) BASIC METABOLIC [id number] 05:49:00 Test Item Value Reference Range Interpretation [...] PATIEN TS. CBC W/PLT COUNT & AUTO [id number] 05:12:00 Test Item Value Reference Range Interpretation [...] PERCENT (BEAKER) (test code = 2801) CT, [id number] 19:56:00FINAL REPORT CT of the abdomen and [...] MDReport Verified Date/Time: 06/29/2018 19:56:22 Reading Location: [address] Consult Reading Room [id number] 17:45:00 Test Item Value Reference Range Interpretation Comments LIPASE (BEAKER) (test code = 749) < U/L 8-78 L COMPREHENSIVE METABOLIC [id number] 17:45:00 Test Item Value Reference Range Interpretation [...] ATED GFR. CBC W/PLT COUNT & AUTO [id number] 17:13:00 Test Item Value Reference Range Interpretation [...] % 0-1 PERCENT (BEAKER) (test code = 9005)
[2022-10-12 18:34] LABS: Absolute Lymphocytes (CBC) 2.6 K/uL (0.7-4.9); Hematocrit 38.5 % (39.6-49.0); MPV 9.4 fL (7.6-11.3); RBC Red Blood Cell Count 4.14 M/uL (4.33-5.43)
[2022-10-12 18:43] LABS: Albumin 3.6 g/dL (3.4-5.0); Bilirubin Total 0.5 mg/dL (0.2-1.0); Potassium 3.6 mmol/L (3.5-5.1)
--- NOTE | 2022-10-12 19:40 | RAD REPORT ---
EXAM DESCRIPTION: CTAbdomen Pelvis W Contrast - 10/12/2022 7:22 pm CLINICAL HISTORY: abdominal distension COMPARISON: 09/23/2022 TECHNIQUE: CT of the abdomen and pelvis was performed with IV contrast. All CT scans are performed using dose optimization technique as appropriate and may include automated exposure control or mA/KV adjustment according to patient size. FINDINGS: Lower chest: No acute abnormality. Liver: No acute abnormality or suspicious lesions. Biliary: Cholecystectomy Stomach: No significant focal abnormality. Duodenum: No significant focal abnormality. Pancreas: No significant abnormality. Spleen: No significant abnormality. Adrenal: No suspicious lesions. Kidney/ureter: No hydronephrosis. 5 mm stone lower pole left kidney. Retroperitoneum: No retroperitoneal adenopathy. Vascular: No aneurysm. Bowel: Increased rectal wall thickening. Distended colon with low-density stool contents, probably st eatorrhea.. Prior appendectomy. Peritoneum: No ascites or free air. Bladder: Grossly unremarkable. Reproductive: No adnexal masses. Bones: No acute fracture. Other: n/a IMPRESSION: Mild increased rectal wall thickening could indicate a proctitis. Probable steatorrhea. No bowel obstruction. Nonobstructive left nephrolithiasis.
[2022-10-12 20:21] LABS: Blood Morphology Comment NOT SEEN (NOT SEEN); Platelet Estimate ADEQ
[2022-10-12] MEDS ORDERED: NA CHLORIDE 0.9% 1,000 ML ONE (20:23)
[2022-10-12] MEDS ORDERED: ONDANSETRON 4 MG/2 ML VIAL ONE (20:23)
[2022-10-12] MEDS ORDERED: MORPHINE 2 MG/ML SYR ONE (20:23)
--- NOTE | 2022-10-12 20:47 | EDPHYS ---
Physician Documentation [facility] Name: Matt Robles Age: 46 yrs Sex: Male : 1975 Arrival Date: 10/12/2022 Time: 17:19 Bed 17 Private MD: ED Physician Bobo Ybarra HPI: 10/12 17:50 This 46 yrs old Black Male presents to ER via Ambulatory with complaints of Abdominal cp Pain, Bloated. 17:50 The patient presents with abdominal pain right side of abdomen abdominal distention cp that is diffuse. Onset: The symptoms/episode began/occurred yesterday. The symptoms do not radiate. Associated signs and symptoms: Pertinent positives: constipation, Pertinent negatives: blood in stools, chest pain, diarrhea, dysuria, fever, testicular pain, vomiting. The symptoms are described as described as feeling "bloated". Severity of pain: in the emergency department the pain is unchanged despite home interventions. Historical: - Allergies: 17:43 Toradol; ap3 - PMHx: 17:43 cystic fibrosis; ap3 - Immunization history:: Client reports having NOT received the Covid vaccine. Flu vaccine is up to date. - Social history:: Smoking status: Patient denies any tobacco usage or history of. ROS: 18:00 Constitutional: Negative for body aches, chills, fever, poor PO intake. cp 18:00 Eyes: Negative for injury, pain, redness, and discharge. cp 18:00 ENT: Negative for drainage from ear(s), ear pain, sore throat, difficulty swallowing, difficulty handling secretions. 18:00 Cardiovascular: Negative for chest pain, edema, palpitations. 18:00 Respiratory: Negative for cough, shortness of breath, wheezing. 18:00 Abdomen/GI: Positive for abdominal pain, constipation, abdominal distension, Negative for vomiting, diarrhea, anorexia, black/tarry stool, rectal pain, rectal bleeding, bowel incontinence. 18:00 Back: Negative for radiated pain. 18:00 Neuro: Negative for altered mental status, dizziness, headache, numbness, syncope, weakness. 18:00 All other systems are negative. Exam: 18:05 Constitutional: The patient appears in no acute distress, alert, awake, cp non-diaphoretic, non-toxic, well developed, well nourished, uncomfortable. 18:05 Head/Face: Normocephalic, atraumatic. cp 18:05 Eyes: Periorbital structures: appear normal, Conjunctiva: normal, no exudate, no injection, Sclera: no appreciated abnormality, Lids and lashes: appear normal, bilaterally. 18:05 ENT: External ear(s): are unremarkable, Nose: is normal, Mouth: Lips: moist, Oral mucosa: pink and intact, moist, Posterior pharynx: Airway: no evidence of obstruction, patent. 18:05 Chest/axilla: Inspection: normal. 18:05 Cardiovascular: Rate: normal, Rhythm: regular, Edema: is not appreciated, JVD: is not appreciated. 18:05 Respiratory: the patient does not display signs of respiratory distress, Respirations: normal, no use of accessory muscles, no retractions, labored breathing, is not present, Breath sounds: are clear throughout, no decreased breath sounds, no stridor, no wheezing. 18:05 Abdomen/GI: Inspection: distension, that is mild, Bowel sounds: active, all quadrants, Palpation: soft, in all quadrants, mild abdominal tenderness, in the right upper quadrant and right lower quadrant, rebound tenderness, is not appreciated, involuntary guarding, is not appreciated. 18:05 Back: CVA tenderness, is absent. 18:05 Skin: cellulitis, is not appreciated, no rash present. 18:05 Neuro: Orientation: to person, place \\T\\ time. Mentation: is normal. Vital Signs: 17:40 BP 140 / 88; Pulse 86; Resp 17; Temp 98.8; Pulse Ox 100% ; Weight 70.31 kg; Height 6 ap3 ft. (182.88 cm); Pain 9/10; 19:50 BP 130 / 87; Pulse 66; Resp 18; Pulse Ox 100% ; Pain 9/10; jj7 20:50 BP 106 / 52; Pulse 71; Resp 17; Pulse Ox 99% ; jj7 21:42 BP 97 / 65; Pulse 61; Resp 20; Pulse Ox 99% ; jj7 17:40 Body Mass Index 21.02 (70.31 kg, 182.88 cm) ap3 MDM: 19:00 Differential diagnosis: appendicitis, bowel obstruction, cholecystitis, Cholelithiasis, cp pancreatitis, Pyelonephritis, Ureterolithiasis, urinary tract infection. 19:26 Patient medically screened. cp 20:43 Data reviewed: vital signs, nurses notes, lab test result(s), radiologic studies, CT cp scan. ED course: Patient denies any rectal pain and/or pain with bowel movements. Will treat constipation with prescribed stool softner. 20:45 Counseling: I had a detailed discussion with the patient and/or guardian regarding: the cp historical points, exam findings, and any diagnostic results supporting the discharge/admit diagnosis, lab results, radiology results, to return to the emergency department if symptoms worsen or persist or if there are any questions or concerns that arise at home. 20:45 Response to treatment: the patient's symptoms have mildly improved after treatment, and cp as a result, I will discharge patient. Special discussion: Based on the patient's Hx, exam, and Dx evaluation, there is no indication for emergent surgery or inpatient Tx. It is understood by the patient/guardian that if the Sx's persist or worsen they need to return immediately for re-evaluation. 10/12 17:46 Order name: CBC with Diff; Complete Time: 20:44 cp 10/12 20:06 Interpretation: Normal except: RBC 4.14; HGB 12.8; HCT 38.5. cp 10/12 17:46 Order name: CMP; Complete Time: 20:05 cp 10/12 20:05 Interpretation: Normal except: CL 110; GFR 71. cp 10/12 17:46 Order name: Lipase; Complete Time: 20:05 cp 10/12 17:47 Order name: CT Abd/Pelvis - PO and IV Contrast: give po contrast cp 10/12 18:38 Order name: Manual Differential; Complete Time: 20:44 EDMS 10/12 17:46 Order name: IV Saline Lock; Complete Time: 18:24 cp 10/12 17:46 Order name: Labs collected and sent; Complete Time: 18:24 cp 10/12 17:46 Order name: Urine Dipstick-Ancillary (obtain specimen) cp 10/12 17:51 Order name: Abdomen ; Complete Time: 20:05 EDMS Administered Medications: 20:31 Drug: NS 0.9% 1000 ml Route: IV; Rate: 1 bolus; Site: left antecubital; jj7 22:21 Follow up: IV Status: Completed infusion jj7 20:31 Drug: morphine 2 mg Route: IVP; Infused Over: 4 mins; Site: left antecubital; jj7 22:21 Follow up: Response: Pain is decreased jj7 20:32 Drug: Zofran (Ondansetron) 4 mg Route: IVP; Site: left antecubital; jj7 22:21 Follow up: Response: Nausea is decreased jj7 Disposition Summary: 10/12/22 20:46 Discharge Ordered Location: Home cp Problem: new cp Symptoms: have improved cp Condition: Stable cp Diagnosis - Constipation cp - Other abdominal pain cp Followup: cp - With: Private Physician - When: 2 - 3 days - Reason: Worsening of condition Discharge Instructions: - Discharge Summary Sheet cp - Abdominal Pain, Adult cp - Constipation, Adult cp Forms: - Medication Reconciliation Form cp - Thank You Letter cp - Antibiotic Education cp - Prescription Opioid Use cp Prescriptions: - Miralax - take 1 application by ORAL route once daily for 8-10 days; 1 bottle; Refills: cp 0, Product Selection Permitted Signatures: Dispatcher [employer] EDChris Julien PA PA cp Prokisch, Amanda RN RN ap3 Samuel Cali RN RN jj7
--- NOTE | 2022-10-12 20:47 | ER ---
Nurse's Notes [facility] Name: Matt Robles Age: 46 yrs Sex: Male : 1975 Arrival Date: 10/12/2022 Time: 17:19 Bed 17 Private MD: Diagnosis: Constipation;Other abdominal pain Presentation: 10/12 17:40 Chief complaint: Patient states: he has been having abdominal pain in the right lower ap3 quadrant. patient denies nausea, vomiting \T\ diarrhea. Coronavirus screen: At this time, the client does not indicate any symptoms associated with coronavirus-19. Ebola Screen: No symptoms or risks identified at this time. Initial Sepsis Screen: Does the patient meet any 2 criteria? No. Patient's initial sepsis screen is negative. Does the patient have a suspected source of infection? No. Patient's initial sepsis screen is negative. Risk Assessment: Do you want to hurt yourself or someone else? Patient reports no desire to harm self or others. Onset of symptoms was October 11, 2022. 17:40 Method Of Arrival: Ambulatory ap3 17:40 Acuity: BRENNA 3 ap3 Triage Assessment: 17:45 General: Appears in no apparent distress. Behavior is calm, cooperative, appropriate ap3 for age. Pain: Complains of pain in right lower quadrant. Neuro: Level of Consciousness is awake, alert, obeys commands, Oriented to person, place, time, situation, Gait is steady, Speech is normal. Cardiovascular: Patient's skin is warm and dry. Respiratory: Airway is patent Respiratory effort is even, unlabored, Respiratory pattern is regular, symmetrical. GI: Reports lower abdominal pain, constipation. Historical: - Allergies: 17:43 Toradol; ap3 - PMHx: 17:43 cystic fibrosis; ap3 - Immunization history:: Client reports having NOT received the Covid vaccine. Flu vaccine is up to date. - Social history:: Smoking status: Patient denies any tobacco usage or history of. Screenin:45 [facility] ED Fall Risk Assessment (Adult) History of falling in the last 3 months, ap3 including since admission. Abuse screen: Denies threats or abuse. Nutritional screening: No deficits noted. Tuberculosis screening: No symptoms or risk factors identified. Assessment: 19:26 General: called in lobby no answer. tw5 19:50 General: Appears in no apparent distress. comfortable, Behavior is calm, cooperative, jj7 appropriate for age. Pain: Complains of pain in right upper quadrant and right lower quadrant Pain currently is 9 out of 10 on a pain scale. GI: Bowel sounds present X 4 quads. Abd is soft X 4 quads Reports lower abdominal pain, nausea. 19:50 Reassessment: ASSUMED CARE OF PT. PT LYING IN BED NO DISTRESS NOTED. C/O RLQ PAIN. VS jj7 STABLE. LIGHTS TURNED OFF AND PT WATCHING TV. CALL LEROY IN REACH. Vital Signs: 17:40 BP 140 / 88; Pulse 86; Resp 17; Temp 98.8; Pulse Ox 100% ; Weight 70.31 kg; Height 6 ap3 ft. (182.88 cm); Pain 9/10; 19:50 BP 130 / 87; Pulse 66; Resp 18; Pulse Ox 100% ; Pain 9/10; jj7 20:50 BP 106 / 52; Pulse 71; Resp 17; Pulse Ox 99% ; jj7 21:42 BP 97 / 65; Pulse 61; Resp 20; Pulse Ox 99% ; jj7 17:40 Body Mass Index 21.02 (70.31 kg, 182.88 cm) ap3 ED Course: 17:19 Patient arrived in ED. rg4 17:21 Chris Tineo PA is PHCP. cp 17:21 Bobo Ybarra MD is Attending Physician. cp 17:43 Triage completed. ap3 17:45 Arm band placed on right wrist. ap3 18:24 CBC with Diff Sent. bc6 18:24 CMP Sent. bc6 18:24 Lipase Sent. bc6 18:24 Urine Microscopic Only Sent. bc6 18:24 Initial lab(s) drawn, by ak, sent to lab. Inserted saline lock: 20 gauge in left bc6 antecubital area, using aseptic technique. 19:24 Abdomen In Process Unspecified. EDMS 19:50 Patient has correct armband on for positive identification. Bed in low position. Call jj7 light in reach. Side rails up X2. 19:51 Samuel Cali, JAD is Primary Nurse. jj7 22:19 No provider procedures requiring assistance completed. IV discontinued, intact, jj7 bleeding controlled, No redness/swelling at site. Pressure dressing applied. Administered Medications: 20:31 Drug: NS 0.9% 1000 ml Route: IV; Rate: 1 bolus; Site: left antecubital; jj7 22:21 Follow up: IV Status: Completed infusion j7 20:31 Drug: morphine 2 mg Route: IVP; Infused Over: 4 mins; Site: left antecubital; jj7 22:21 Follow up: Response: Pain is decreased jj7 20:32 Drug: Zofran (Ondansetron) 4 mg Route: IVP; Site: left antecubital; jj7 22:21 Follow up: Response: Nausea is decreased jj7 Medication: 19:50 VIS not applicable for this client. jj7 Outcome: 20:46 Discharge ordered by . yefri 22:19 Discharged to home ambulatory. jj7 22:19 Condition: improved 22:19 Discharge instructions given to patient, Instructed on discharge instructions, medication usage, Demonstrated understanding of instructions, medications, Prescriptions given X 1. 22:20 Patient left the ED. jj7 Signatures: Dispatcher [employer] EDMS Chris Tineo PA PA cp Garcia, Rubi rg4 Hollie Taylor RN RN ap3 Francisca Stein tw5 Samuel Cali RN RN jj7 Brooklyn Vasquez 6
[2022-10-12 22:42] VITALS: TEMP 98.8
[2022-10-12 22:59] VITALS: O2SAT 99
[2022-10-12 23:00] VITALS: BP 97/65
== END 2022-10-12 22:20 | disposition home or self-care (01) ==
LOC: ER 17:16
DX: K59.00 Constipation, unspecified (principal); Z88.5 Allergy status to narcotic agent
CPT/HCPCS: 85025; 36415; 83690; 80053; 74177; Q9967; J2270; J7030; J2405; 96361; 96374; 96375; 99284

== ENCOUNTER 2023-02-20 00:06 | Emergency (ER) | payer OTHER ==
--- OUTSIDE RECORDS SUMMARY | 2023-02-20 00:37 | XMS REPORT | Continuity of Care Document ---
:1975 Author Organization [facility] t Address [address] [place] [address] [place] [id number] Care Team Providers Name Role Phone RADHA BURCH Primary Care Physician Unavailable Radha Burch MD Attending Clinician RADHA BURCH Attending Clinician Unavailable Phil Arredondo Attending Clinician Martha GUERRERO, Stefano In H Attending Clinician STEFANO BRUMFIELD IN Attending Clinician Unavailable Jesus Ewing MD Attending Clinician [phone] Debi Briggs MD Attending Clinician Kari Guerra MD Attending Clinician [phone] Sandoval Lipscomb MD Attending Clinician [phone] SANDOVAL LIPSCOMB Attending Clinician Unavailable Rupesh WEST, Oksana Lewis Attending Clinician [phone] OKSANA GODDARD Attending Clinician Unavailable DEBI BRIGGS Attending Clinician Unavailable Kamryn GUERRERO, Meredith Arredondo Attending Clinician [phone] Chaparro Farah MD Attending Clinician Larry GUERRERO, Coty Phelan Attending Clinician [phone] Tonny Meneses MD Attending Clinician TONNY MENESES Attending Clinician Unavailable Amor Napier MD Attending Clinician AMOR NAPIER Attending Clinician Unavailable KENDRICK WISEMAN Attending Clinician Unavailable Jacob Calle DO Attending Clinician Honey Painter MD Attending Clinician Saul Ramsey MD Attending Clinician SAUL RAMSEY Attending Clinician Unavailable Brad Galindo DO Attending Clinician Jose Tovar MD Attending Clinician Pratik Layton MD Attending Clinician [phone] PRATIK LAYTON Attending Clinician Unavailable Puma Kent MD Attending Clinician PUMA KENT Attending Clinician Unavailable WILLIS GEORGE Attending Clinician Unavailable Balwinder Rebolledo MD Attending Clinician [phone] Charlene Pearson MD Attending Clinician CHARLENE PEARSON Attending Clinician Unavailable SAMMI CABELLO Attending Clinician Unavailable RADHA BURCH Attending Clinician Unavailable BALAJI WILSON Attending Clinician Unavailable ELIGIO ROSENTHAL Attending Clinician Unavailable AMOR NAPIER Attending Clinician Unavailable CYN RECINOS Attending Clinician Unavailable Shannon Momin DO Attending Clinician SHANNON MOMIN Attending Clinician Unavailable COTY ELENA Attending Clinician Unavailable JESUS EWING Attending Clinician Unavailable BRYSON ZAZUETA Attending Clinician Unavailable Radha Burch MD Attending Clinician Oksana Goddard NP Attending Clinician DEANDRA ACUÑA Attending Clinician Unavailable Amor Napier MD Attending Clinician RAMAN PANTOJA Attending Clinician Unavailable SHEEBA MOORE Attending Clinician Unavailable CESARIO SOUSA Attending Clinician Unavailable ERICK NO Attending Clinician Unavailable MILAGRO JAMES Attending Clinician Unavailable MIAN SOTELO Attending Clinician Unavailable LAILA LOGAN Attending Clinician Unavailable CYN CASILLAS Attending Clinician Unavailable STEFANO BRUMFIELD Admitting Clinician Unavailable SANDOVAL LIPSCOMB Admitting Clinician Unavailable CHAPARRO FARAH Admitting Clinician Unavailable MIGUEL CURIEL Admitting Clinician Unavailable HONEY PAINTER Admitting Clinician Unavailable PRATIK LAYTON Admitting Clinician Unavailable BALWINDER REBOLLEDO Admitting Clinician Unavailable EUGENIA DUQUE Admitting Clinician Unavailable ANALILIA PRESLEY Admitting Clinician Unavailable BOOGIE UP Admitting Clinician Unavailable SAUL RAMSEY Admitting Clinician Unavailable GRANT CLEMENTS Admitting Clinician Unavailable JANAY JOSEPH Admitting Clinician Unavailable JAMAR HARPER Admitting Clinician Unavailable CARLEEN MILLER Admitting Clinician Unavailable ANICETO KRUSE Admitting Clinician Unavailable IVIS PUGH Admitting Clinician Unavailable TEOFILO BAIRD Admitting Clinician Unavail able Payers Payer Name Policy Type Policy Number Effective Date Expiration Date S kimberly [facility] MEDICARE [id number] 2020 00:00:00 [facility] [id number] 2021 PLAN 00:00:00 [employer]LL[employer] DUAL [id number] COMPLETE SNP [facility]-MEDICAID - [id number] 2020 MEDICAID 00:00:00 MEDICARE PART A [id number] 1999 \\T\\ B - MEDICARE 00:00:00 MEDICARE PLAN PPO [id number] - AETNA GENERIC PPO - [id number] 2020 GENERIC PAYOR 00:00:00 MEDICAID OF [place] [id number] 2021 00:00:00 MEDICARE A B [id number] 2020 00:00:00 CDC REVIEW [id number] 2020 00:00:00 Problems Condition Condition Condition Status Onset Resolution Last Treating Co mments Source Name Details Category Date Date Treatment Clinician Date Ileus Ileus Disease Recurre 2021-[address] [facility] Enterocoli Enterocoli Disease Active [facility] tis tis [facility]18 [facility] 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 2-16 [facility] y with y with 00:00: Medical colonic colonic 00 Center stricture stricture Generalize Generalize Disease Active 2020-[address] d d 0-23 [facility] abdominal abdominal 00:00: [facility] jf pain pain 00 Center Bowel Bowel Disease Recurre [facility] obstructio obstructio nce 1-16 [facility]re k[facility] n n 00:00: Medical 00 Center Nausea Nausea Disease Active [facility] Center Ileus Ileus Disease Recurre [facility] 1[facility]11 [facility] Pain of Pain of Disease Active [facility] upper upper 1-06 [facility] abdomen abdomen 00:00: Medical 00 Center Distal Distal Disease Recurre [facility] intestinal intestinal nce 8-29 [facility] obstructio obstructio 00:00: Me dical n syndrome n syndrome 00 Ce nter Acute Acute Disease Active [facility] abdominal abdominal 7-29 [facility] pain pain 00:00: Medical 00 Center Bilateral Bilateral Disease Active [facility] renal renal 7-09 [facility] stones stones 00:00: Medical 00 [place] Hydrourete Hydrourete Disease Active [facility] r, left r, left 04-17 [facility] 00:[facility]: Medical 00 [place] Hydronephr Hydronephr Disease Active [facility] osis with osis with 04-17 [facility] ureteropel ureteropel 00:00: Me dical angel angel 00 [place] junction junction (UPJ) (UPJ) obstructio obstructio n n Acute left Acute left Disease Active [facility] flank pain flank pain 04-17 Bere kes 00:00: Medical 00 [place] Gastrointe Gastrointe Disease Active [facility] stinal stinal 06-01 [facility] dysmotilit dysmotilit 00:00: Me dical y y 00 Center Hyponatrem Hyponatrem Disease Active [facility] ia ia 6-15 [facility] 00:00: Medical 00 [place] Bronchiect Bronchiect Disease Recurre [facility] asis asis nce 6 [facility] 00:00: Medical 00 [place] MATHEW (acute MATHEW (acute Disease Active [facility] kidney kidney 613 [facility] injury) injury) 00:00: Medical 00 Center Hyponatrem Hyponatrem Disease Active [facility] ia ia 6-13 [facility] 00:00: Medical 00 [place] Other Other Disease Active [facility] partial partial 3-04 College intestinal intestinal 00:00: of obstructio obstructio 00 Wi dicin n (HCCode) n (HCCode) e Vitamin E Vitamin E Disease Active [place] rasheed deficiency deficiency 3-04 Co llege 00:00: of 00 Medicin e Vitamin A Vitamin A Disease Active [place] rasheed deficiency deficiency 3-04 Co llege 00:00: of 00 Medicin e Exocrine Exocrine Disease Active [place] [facility] pancreatic pancreatic 3-04 [facility] insufficie insufficie 00:00: of ncy ncy 00 Medicin e Vitamin D Vitamin D Disease Active [place] rasheed deficiency deficiency 3-04 Co llege 00:00: of 00 Medicin e Abnormal Abnormal Disease Active [place] finding on finding on 12-09 Co [facility] GI tract GI tract 00:00: of imaging imaging 00 Medicin e Chronic Chronic Disease Active Last [facility] constipati constipati 3-02 [facility] on on 00:00: t & Plan: of 00 Patient Medicin reports e no current GI issues, using 4 caps of Miralax 4x per day.Nattymame rodney reports to clinic for a follow up visit, patient has been in and out of a hospital in [place] for LIONEL and Constipat ion. Just returned to [place] yesterday . Was admitted to hospital 4 x in November for recurrent LIONEL. Patient reports current regimen is 4 capfuls 4 times daily, patient is having insurance issues with coverage. Needs a PA for Miralax per [employer]. Discussed with patient at length issues with his current fragmente d care between [place] and [place], patient given informati on for adult center in [facility] which is only 3 hours from his home. Stated he did not know there was an adult CF center there. Other Other Disease Recurre [facility] constipati constipati nce 1-17 Bere kes on on 00:00: Medical 00 Center Chronic Chronic Disease Active 2017-10 [facility] constipati constipati 2-16 Co llege on on 00:00: of 00 Medicin e RLQ RLQ Disease Active 2017-10 [facility] abdominal abdominal 2-16 [facility] ege pain pain 00:00: of Medicin e Poor Poor Disease Active 2017-10 [facility] social social 2-03 [facility] situation situation 00:00: t & Plan: o f 00 Will have Medicin him meet e with social work to assist with resources . [facility] Erica jarquinh Breann, Medicaid transport ation. Patient not currently intereste d in therapy as he states he speaks with his mentors. Will continue to follow up with him. Possible referral to psychiatr y if remains with symptoms of depressio n and anxiety. 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 No known No known Disease Unive rs active active ity of problems problems [facility] Abdominal Abdominal Disease Resolve 2022-09-26 2022-09-[address] [facility] distention distention d 5-13 00:00:00 07:23:26 [facility] 00:[facility]: Medical [place] LIONEL LIONLE Disease Resolve 2017-2022-09-24 2022-09-[address] (distal (distal d 0-08 00:00:00 16:04:41 [facility] intestinal intestinal 00:00: Me dical obstructio obstructio 00 Ce nter n n syndrome) syndrome) Allergies, Adverse Reactions, Alerts Allergy Allergy Status Severity Reaction(s) Onset Inactive Treating Comm ents Source Name Type Date Date Clinician [place] Propensi Active Hiv Univer s c ty to 10-18 ity of adverse 00:00: [place] reaction 00 [facility] KETOROLA DRUG Active Hives Univers C INGREDI 10-18 ity of 00:00: [place] 00 [facility] [place] Drug Active Hives [facility] c Allergy 04-17 [facility] 00:00: Medical 00 [place] KETOROLA Allergy Active High Hives [facility] C 04-17 [facility] 00:[facility]: Medical 00 Center No Known DA Active U 2017- [facility] Allergie 6-08 [place] [facility] 00:[facility]: d 00 [facility] Center NO KNOWN Allergy Active [facility] Family History Family Member Diagnosis Comments Start Date Stop Date Source Natural brother Cystic fibrosis [facility] Natural father Heart disease [facility] Natural mother Lupus [facility] Social History Social Habit Start Date Stop Date Quantity Comments Source History [facility] Non-Med Medical Center History [facility] 2022-09-08 2022-09-[address] [facility] Transport Med 00:00:00 00:00:[address] [facility] 2022-09-08 2022-09-[address] [facility] Housing Unable to 00:00:00 00:00:00 Medical Center Pay History [facility] 2022-09-08 2022-09-[address] [facility] Housing Places 00:00:00 00:00:00 Medical Ce nter Lived History [facility] 2022-09-08 2022-09-[address] [facility] Housing Homeless 00:00:00 00:00:00 Medical Center Last Year Alcohol intake 2022-09-07 2022-09-07 Current [facility] es 00:00:00 00:00:00 non-drinker of Medical Ce nter alcohol (finding) Exposure to 2022-08-27 2022-09-[address] [facility] SARS-CoV-2 (event) 00:00:00 20:59:00 [facility] Tobacco use and 2018-06-29 2018-06-[address] [facility] exposure 00:00:00 00:00:00 non-user Medical Center Sex Assigned At [address] [facility]es 00:00:00 00:00:00 Medical Center Smoking Status Start Date Stop Date Source Unknown if ever smoked [facility] Never smoked tobacco [facility] Medications Ordered Filled Start Stop Current Ordering Indication Dosage Frequency Signature Comments Components Source Medication Medication Date Date Medication? Clinician (SIG) Name Name shey 2021-10 Yes 1{capsu Q.5D Take [address] multivit 2-18 le} capsule by [facility] 22/vit 15:48: mouth 2 Medical D3/vit K 37 (two) Center (MVW times COMPLETE daily. FORMULATION D5000 ORAL) pedi 2021-10 Yes 1{capsu Q.5D Take [address] [address] multivit 2-18 le} capsule [facility] 22/vit 15:48: mouth 2 Medical D3/vit K 37 (two) Center (MVW times COMPLETE daily. FORMULATION D5000 ORAL) pedi 2021-10 Yes 1{capsu Q.5D Take [address] multivit 2-18 le} capsule [facility] 22/vit 15:48: mouth 2 Medical D3/vit K 37 (two) Center (MVW times COMPLETE daily. FORMULATION D5000 ORAL) pedi 2021-10 Yes 1{capsu Q.5D Take [address] multivit 2-18 le} capsule [facility] 22/vit 15:48: mouth 2 Medical D3/vit K 37 (two) Center (MVW times COMPLETE daily. FORMULATION D5000 ORAL) pedi 2021-10 Yes 1{capsu Q.5D Take [address] multivit 2-18 le} capsule [facility] 22/vit 15:48: mouth 2 Medical D3/vit K 37 (two) Center (MVW times COMPLETE daily. FORMULATION D5000 ORAL) pedi 2021-10 Yes 1{capsu Q.5D Take [address] multivit 2-18 le} capsule [facility] 22/vit 15:48: mouth 2 Medical D3/vit K 37 (two) Center (MVW times COMPLETE daily. FORMULATION D5000 ORAL) pedi 2021-10 Yes 1{capsu Q.5D Take [address] multivit 2-18 le} capsule [facility] 22/vit 15:48: mouth 2 Medical D3/vit K 37 (two) Center (MVW times COMPLETE daily. FORMULATION D5000 ORAL) polyethylen 2021-10- No 17g Q.25D Take [address] [facility] e glycol 2-18 12-18 by mouth 4 Luke s (GLYCOLAX) 15:41: 00:00 (four) Medi jf 17 gram 11 :00 times Center packet daily. polyethylen 2021-10- No 17g Q.25D Take [address] e glycol 2-18 12-18 by mouth 4 Luke [facility] (GLYCOLAX) 15:41: 00:00 (four) Medi jf 17 gram 11 :00 times Center packet daily. polyethylen 2021-10 No 17g Q.25D Take [address] [facility] e glycol 2-18 12-18 by mouth 4 [facility] (GLYCOLAX) 15:41: 00:00 (four) Medi jf 17 gram 11 :00 times Center packet daily. polyethylen 2021-10- No 17g Q.25D Take [address] [facility] e glycol 2-18 12-18 by mouth 4 [facility] (GLYCOLAX) 15:41: 00:00 (four) Medi jf 17 gram 11 :00 times Center packet daily. polyethylen 2021-10 No 17g Q.25D Take [address] [facility] e glycol 2-18 12-18 by mouth 4 [facility] (GLYCOLAX) 15:41: 00:00 (four) Medi jf 17 gram 11 :00 times Center packet daily. polyethylen 2021-10 No 17g Q.25D Take [address] e glycol 2-18 12-18 by mouth 4 [facility] (GLYCOLAX) 15:41: 00:00 (four) Medi jf 17 gram 11 :00 times Center packet daily. polyethylen 2021-10 No 17g Q.25D Take 17 g [facility] [...] daily as needed (severe constipati on). polyethylen 2021-10 Yes 17g Q.25D Take 17 [...] daily as needed (severe constipati on). polyethylen 2021-10 Yes 17g Q.25D Take 17 [...] daily as needed (severe constipati on). polyethylen 2021-10 Yes 17g Q.25D Take 17 [...] daily as needed (severe constipati on). polyethylen 2021-10 Yes 17g Q.25D Take 17 [...] daily as needed (severe constipati on). polyethylen 2021-10 Yes 17g Q.25D Take 17 [...] daily as needed (severe constipati on). polyethylen 2021-10 Yes 17g Q.25D Take 17 [...] daily as needed (severe constipati on). polyethylen 2021-10 No 17g Q.25D Take 17 g [facility] [...] daily as needed (severe constipati on). polyethylen 2021-10 No 17g Q.25D Take [address] e glycol 2-18 12-18 by mouth 4 [facility] (GLYCOLAX) 00:00: 00:00 (four) Medi jf 17 gram 00 :00 times Center packet daily. docusate 2021-[address] [facility] sodium [...] 00 :00 times Center packet daily. docusate 2021-[address] [facility] sodium 2-18 12-18 mLs (283 [facility] (ENEMEEZ) 00:00: 00:00 mg total) Me dical 283 mg/5 mL 00 :00 rectally Cent er Enem daily as needed (severe constipati on). polyethylen 2021-10 No 17g Q.25D Take [address] e glycol 2-18 12-18 by mouth 4 [facility] (GLYCOLAX) 00:00: 00:00 (four) Medi jf 17 gram 00 :00 times Center packet daily. docusate 2021-[address] sodium 2-18 12-18 mLs (283 [facility] (ENEMEEZ) 00:00: 00:00 mg total) Me dical 283 mg/5 mL 00 :00 rectally Cent er Enem daily as needed (severe constipati on). polyethylen 2021-10 No 17g Q.25D Take [address] e glycol 2-18 12-18 by mouth 4 [facility] (GLYCOLAX) 00:00: 00:00 (four) Medi jf 17 gram 00 :00 times Center packet daily. docusate 2021-[address] sodium 2-18 12-18 mLs (283 [facility] (ENEMEEZ) 00:00: 00:00 mg total) Me dical 283 mg/5 mL 00 :00 rectally Cent er Enem daily as needed (severe constipati on). polyethylen 2021-10 No 17g Q.25D Take [address] e glycol 2-18 12-18 by mouth 4 [facility] (GLYCOLAX) 00:00: 00:00 (four) Medi jf 17 gram 00 :00 times Center packet daily. docusate 2021-[address] sodium 2-18 12-18 mLs (283 [facility] (ENEMEEZ) 00:00: 00:00 mg total) Me dical 283 mg/5 mL 00 :00 rectally Cent er Enem daily as needed (severe constipati on). polyethylen 2021-10 No 17g Q.25D Take 17 g [facility] [...] QD Take [address] (Trulance) 11-12 by mouth [facility] 3 mg Tab 14:02: 00:00 daily. Medica l 54 :00 [facility] 2021-10 No 50mg Q.5D Take [address] (Ibsrela) 11-12 by mouth 2 [facility] 50 mg Tab 14:02: 00:00 (two) Medica l 54 :00 times Center daily. plecanatide 2021-10- No 3mg QD Take [address] (Trulance) 11-12 by mouth Luke s 3 mg Tab 14:02: 00:00 daily. Medica l 54 :00 [facility] 2021-10- No 50mg Q.5D Take [address] (Ibsrela) 11-12- by mouth 2 [facility] 50 mg Tab 14:02: 00:00 (two) Medica l 54 :00 times Center daily. plecanatide 2021-10- No 3mg QD Take [address] (Trulance) 11-12-03 by mouth [facility] 3 mg Tab 14:02: 00:00 daily. Medica l 54 :00 [facility] 2021-10- No 50mg Q.5D Take [address] (Ibsrela) 2-03 by mouth 2 [facility] 50 mg Tab 14:02: 00:00 (two) Medica l 54 :00 times Center daily. plecanatide 2021-10- No 3mg QD Take [address] (Trulance) 11-12 by mouth [facility] s 3 mg Tab 14:02: 00:00 daily. Medica l 54 :00 [facility] 2021-10- No 50mg Q.5D Take [address] (Ibsrela) 11-12 by mouth 2 [place] [facility] 50 mg Tab 14:02: 00:00 (two) Medica l 54 :00 times Center daily. plecanatide 2021-10- No 3mg QD Take [address] (Trulance) 11-12 by mouth Luke s 3 mg Tab 14:02: 00:00 daily. Medica l 54 :00 [facility] 2021-10 No 50mg Q.5D Take [address] (Ibsrela) 11-12 by mouth 2 [facility] [facility] 50 mg Tab 14:02: 00:00 (two) Medica l 54 :00 times Center daily. plecanatide 2021-10- No 3mg QD Take [address] (Trulance) 11-12 by mouth [facility] s 3 mg Tab 14:02: 00:00 daily. Medica l 54 :00 [facility] 2021-10 No 50mg Q.5D Take [address] (Ibsrela) 11-12 by mouth 2 [facility] [facility] 50 mg Tab 14:02: 00:00 (two) Medica l 54 :00 times Center daily. plecanatide 2021-10- No 3mg QD Take [address] (Trulance) 11-12 by mouth [facility] s 3 mg Tab 14:02: 00:00 daily. Medica l 54 :00 [facility] 2021-10- No 50mg Q.5D Take [address] (Ibsrela) 11-12 by mouth 2 [place] [facility] 50 mg Tab 14:02: 00:00 (two) Medica l 54 :00 times Center daily. plecanatide 2021-10- No 3mg QD Take [address] [address] (Trulance) 2-03 12-03 by mouth [facility] 3 mg Tab 14:02: 00:00 daily. Medica l 54 :00 [facility] 2021-10 50mg Q.5D Take [address] (Ibsrela) 2-03 12-03 by mouth 2 [facility] [facility] 50 mg Tab 14:02: 00:00 (two) Medica l 54 :00 times Center daily. [facility] 2021-10 Yes 50mg Q.5D Take [address] (Ibsrela) 2-03 by mouth 2 [facility] 50 mg Tab 00:00: (two) Medical 00 times Center daily. plecanatide 2021-10 Yes 3mg QD Take [address] (Trulance) 2-03 by mouth [facility] 3 mg Tab 00:00: daily. [address] 2021-10 Yes 50mg Q.5D Take [address] (Ibsrela) 2-03 by mouth 2 [facility] 50 mg Tab 00:00: (two) Medical 00 times [place] daily. plecanatide 2021-10 Yes 3mg QD Take [address] (Trulance) 2-03 by mouth [facility] 3 mg Tab 00:00: daily. [address] 2021-10 Yes 50mg Q.5D Take [address] (Ibsrela) 2-03 by mouth 2 [facility] 50 mg Tab 00:00: (two) Medical 00 times [place] daily. plecanatide 2021-10 Yes 3mg QD Take [address] (Trulance) 2-03 by mouth [facility] 3 mg Tab 00:00: daily. [address] 2021-10 Yes 50mg Q.5D Take [address] (Ibsrela) 2-03 by mouth 2 [facility] 50 mg Tab 00:00: (two) Medical 00 times [place] daily. plecanatide 2021-10 Yes 3mg QD Take [address] (Trulance) 2-03 by mouth [facility] 3 mg Tab 00:00: daily. [address] 2021-10 Yes 50mg Q.5D Take [address] (Ibsrela) 2-03 by mouth 2 [facility] 50 mg Tab 00:00: (two) Medical 00 times [place] daily. plecanatide 2021-10 Yes 3mg QD Take [address] (Trulance) 2-03 by mouth [facility] 3 mg Tab 00:00: daily. [address] tenapanor 2021-10 Yes 50mg Q.5D Take [address] (Ibsrela) 2-03 by mouth 2 [facility] 50 mg Tab 00:00: (two) [facility] 00 times Center daily. plecanatide 2021-10 Yes 3mg QD Take [address] (Trulance) 2-03 by mouth [facility] 3 mg Tab 00:00: daily. [address] tenapanor 2021-10 Yes 50mg Q.5D Take [address] (Ibsrela) 2-03 by mouth 2 [facility] 50 mg Tab 00:00: (two) [facility] 00 times [place] daily. plecanatide 2021-10 Yes 3mg QD Take [address] (Trulance) 2-03 by mouth [facility] 3 mg Tab 00:00: daily. [address] tenapanor 2021-10 Yes 50mg Q.5D Take [address] (Ibsrela) 2-03 by mouth 2 [facility] 50 mg Tab 00:00: (two) [facility] 00 times [place] daily. plecanatide 2021-10 Yes 3mg QD Take [address] (Trulance) 2-03 by mouth [facility] 3 mg Tab 00:00: daily. [address] polyethylen 2021-10 Yes 17g Q.25D Take 17 [...] mouth [facility] 3 mg Tab 20:27: daily. [address] tenapanor 2021-10 Yes 50mg Q.5D Take [address] (Ibsrela) 1-29 by mouth 2 [facility] 50 mg Tab 20:27: (two) Medical 39 times Center daily. polyethylen 2022-0 2022- No 4000mL Take 4,[address] e glycol 9-18 09-18 mLs by [facility] (SmithaYTELY,N 00:00: 23:59 mouth once Medical uLYTELY) 00 :00 for 1 Center 236-22.74-6 dose. .74 -5.86 gram solution polyethylen 2022-0 2022- No 4000mL Take 4,[address] [facility] glycol 9-18 09-18 mLs by [facility] (GoLYTELY,N 00:00: 23:59 mouth once Medical uLYTELY) 00 :00 for 1 Center 236-22.74-6 dose. .74 -5.86 gram solution polyethylen 2022-0 2022- No 4000mL Take 4,[address] e glycol 9-18 09-18 mLs by [facility] (GoLYTELY,N 00:00: 23:59 mouth once Medical uLYTELY) 00 :00 for 1 Center 236-22.74-6 dose. .74 -5.86 gram solution polyethylen 2022-0 2022- No 4000mL Take 4,[address] e glycol 9-18 09-18 mLs by [place] (GoLYTELY,N 00:00: 23:59 mouth once Medical uLYTELY) 00 :00 for 1 Center 236-22.74-6 dose. .74 -5.86 gram solution polyethylen 2022-0 2022- No 4000mL Take 4,[address] e glycol 9-18 09-18 mLs by [place] (GoLYTELY,N 00:00: 23:59 mouth once Medical uLYTELY) 00 :00 for 1 Center 236-22.74-6 dose. .74 -5.86 gram solution polyethylen 2022-0 2022- No 4000mL Take 4,[address] e glycol 9-18 09-18 mLs by [facility] (GoLYTELY,N 00:00: 23:59 mouth once Medical uLYTELY) 00 :00 for 1 Center 236-22.74-6 dose. .74 -5.86 gram solution polyethylen 2022-0 2022- No 4000mL Take 4,[address] e glycol 9-18 09-18 mLs by [facility] (GoLYTELY,N 00:00: 23:59 mouth once Medical uLYTELY) 00 :00 for 1 Center 236-22.74-6 dose. .74 -5.86 gram solution polyethylen 2022-0 2022- No 4000mL Take 4,000 [facility] glycol 9-18 09-18 [facility] by [facility] (GoLYTELY,N 00:00: 23:59 mouth once Medical uLYTELY) 00 :00 for 1 Center 236-22.74-6 dose. .74 -5.86 gram solution polyethylen 2022-0 2022- No 4000mL Take 4,[address] [facility] glycol 9-18 09-18 [facility]s by [facility] (GoLYTELY,N 00:00: 23:59 mouth once Medical uLYTELY) 00 :00 for 1 Center 236-22.74-6 dose. .74 -5.86 gram solution polyethylen 2022-0 2022- No 34g Q.5D Take [...] packet daily for 3 days. polyethylen 2021-0 2022- No 34g Q.5D Take [address] [facility] glycol -22 06-16 by mouth 2 [facility] (GLYCOLAX) 00:00: 23:59 (two) Medic al 17 gram 00 :00 times Center packet daily for 3 days. polyethylen 2021-0 2022- No 34g Q.5D Take [address] [facility] glycol -22 06-16 by mouth 2 [facility] (GLYCOLAX) 00:00: 23:59 (two) Medic al 17 gram 00 :00 times Center packet daily for 3 days. polyethylen 2021-0 2022- No 34g Q.5D Take [address] [facility] glycol -16 by mouth 2 [facility] (GLYCOLAX) 00:00: 23:59 (two) Medic al 17 gram 00 :00 times Center packet daily for 3 days. polyethylen 2021-0 2021- No 34g Q.5D Take [address] [facility] glycol 06-2216 by mouth 2 [facility] (GLYCOLAX) 00:00: 23:59 (two) Medic al 17 gram 00 :00 times Center packet daily for 3 days. pedi 0 Yes 1{capsu Q.5D Take [address] [facility] multivit 3-02 le} capsule by Tayla 22/vit 14:47: mouth 2 Medical D3/vit K 56 (two) Center (MVW times COMPLETE daily. FORMULATION D5000 ORAL) polyethylen 2021-0 Yes 4000mL Take 4,[address] [facility] glycol 3-01 mLs by Tayla (GoLYTELY,N 00:00: mouth as Me dical uLYTELY) 00 needed Center 236-22.74-6 (constipat .74 -5.86 ion). gram solution prucaloprid 2021-0 Yes 2mg QD Take [address] [facility] 2 mg Tab 3-01 by [facility] 00[facility]: daily. Medical 00 Center prucaloprid 2021-0 2- No 2mg QD Take [address] [facility] 2 mg Tab 3-01 11-29 by mouth [facility] 00:00: 00:00 daily. Medical 00 :00 Center prucaloprid 2021-0 2022- No 2mg QD Take [address] [facility] 2 mg Tab 12-08 by mouth [facility] 00:00: 00:00 daily. Medical 00 :00 [place] prucaloprid 2021-0 2022- No 2mg QD Take [address] [facility] 2 mg Tab 12-08 by mouth [facility] s 00:00: 00:00 daily. Medical 00 :00 [place] prucaloprid 2021-0 2022- No 2mg QD Take [address] [facility] 2 mg Tab 12-08 by mouth [facility] s 00:00: 00:00 daily. Medical 00 :00 [place] prucaloprid 2021-0 2022- No 2mg QD Take [address] [facility] 2 mg Tab 12-08 by mouth [facility] s 00:00: 00:00 daily. Medical 00 :00 [place] prucaloprid 2021-0 2022- No 2mg QD Take [address] [facility] 2 mg Tab 12-08 by mouth [facility] s 00:00: 00:00 daily. Medical 00 :00 [place] prucaloprid 2021-0 2022- No 2mg QD Take [address] [facility] 2 mg Tab 12-08 by mouth [facility] s 00:00: 00:00 daily. Medical 00 :00 [place] prucaloprid 2021-0 2022- No 2mg QD Take [address] [facility] 2 mg Tab 12-08 by mouth [facility] 00:00: 00:00 daily. Medical 00 :00 [place] prucaloprid 2021-0 2022- No 2mg QD Take [address] [facility] 2 mg Tab 12-08 by mouth [facility] 00:00: 00:00 daily. Medical 00 :00 Center polyethylen 2021-0 202- No 4000mL Take 4,[address] [facility] glycol 3- 09-18 mLs by Tayla (Reyna Charlton 00:00: 00:00 mouth as M caroline Holt) 00 :00 needed Center 236-22.74-6 (constipat .74 -5.86 ion). gram solution polyethylen 2021-0 202- No 4000mL Take 4,[address] [facility] glycol 3- 09-18 [facility] (GoLYTELY,N 00:00: 00:00 mouth as M edical uLYTELY) 00 :00 needed Center 236-22.74-6 (constipat .74 -5.86 ion). gram solution polyethylen 2022-0 2022- No 4000mL Take 4,[address] [facility] glycol 3-01 09-18 mLs by [facility] (SmithaYTELY,N 00:00: 00:00 mouth as M edical uLYTELY) 00 :00 needed Center 236-22.74-6 (constipat .74 -5.86 ion). gram solution polyethylen 2022-0 2022- No 4000mL Take 4,[address] [facility] glycol 3-01 09-18 mLs by [facility] (SmithaYTELY,N 00:00: 00:00 mouth as M edical uLYTELY) 00 :00 needed Center 236-22.74-6 (constipat .74 -5.86 ion). gram solution polyethylen 2022-0 2022- No 4000mL Take 4,[address] [facility] [address] [facility] glycol 3-01 09-18 mLs by [facility] (SmithaYTELY,N 00:00: 00:00 mouth as M edical [...] St e glycol 3-01 09-18 mLs by [facility] (SmithaYTELY,N 00:00: 00:00 mouth as M edical [...] 4000mL Take 4,[address] [facility] [address] [facility] glycol 3- 09-18 mLs by [facility] (SmithaYTELY,N 00:00: 00:00 mouth as M edical uLYTELY) 00 :00 needed Center 236-22.74-6 (constipat .74 -5.86 ion). gram solution polyethylen 2022-0 2022- No 4000mL Take 4,[address] [facility] glycol 2- 03-01 mLs by [facility] (SmithaYTELY,N 00:00: 00:00 mouth as M edical uLYTELY) 00 :00 needed Center 236-22.74-6 (constipat .74 -5.86 ion). gram solution prucaloprid 2022-0 2022- No 2mg QD Take [address] [facility] 2 mg Tab 2-04 01- by mouth [facility] 00:00: 00:00 daily. Medical 00 :00 Center polyethylen 2022-0 2022- No 4000mL Take 4,[address] [facility] [address] [facility] glycol 2- 03- mLs by [facility] (SmithaYTELY,N 00:00: 00:00 mouth as M edical uLYTELY) 00 :00 needed Center 236-22.74-6 (constipat .74 -5.86 ion). gram solution prucaloprid 2022-0 2022- No 2mg QD Take [address] [facility] 2 mg Tab 2-04 01- by mouth [facility] 00:00: 00:00 daily. Medical 00 :00 Center polyethylen 2022-0 2022- No 4000mL Take 4,[address] [address] [facility] glycol 2- 03- mLs by [facility] (SmithaYTELY,N 00:00: 00:00 mouth as M edical uLYTELY) 00 :00 needed Center 236-22.74-6 (constipat .74 -5.86 ion). gram solution prucaloprid 2022-0 2022- No 2mg QD Take [address] [facility] 2 mg Tab 2-04 01- by mouth [facility] 00:00: 00:00 daily. Medical 00 :00 Center polyethylen 2022-0 2022- No 4000mL Take 4,[address] [facility] [address] [facility] glycol 2-04 01- mLs by [facility] (ColleenLY,N 00:00: 00:00 mouth as M edical uLYTELY) 00 :00 needed [place] 236-22.74-6 (constipat .74 -5.86 ion). gram solution prucaloprid 2021-0 2022- No 2mg QD Take [address] [facility] 2 mg Tab 2-04 01- by mouth [facility] 00:00: 00:00 daily. Medical 00 :00 [place] polyethylen 2021-0 2022- No 4000mL Take 4,[address] [address] [facility] glycol 2-04 01- mLs by [facility] (Latesha,N 00:00: 00:00 mouth as M edical uLYTELY) 00 :00 needed [place] 236-22.74-6 (constipat .74 -5.86 ion). gram solution prucaloprid 2021-0 2022- No 2mg QD Take [address] [facility] 2 mg Tab 2-04 01- by mouth [facility] 00:00: 00:00 daily. Medical 00 :00 [place] polyethylen 2021-0 2021- No 4000mL Take 4,[address] glycol 2-04 01- mLs by [facility] (Latesha,N 00:00: 00:00 mouth as M edical uLYTELY) 00 :00 needed [place] 236-22.74-6 (constipat .74 -5.86 ion). gram solution prucaloprid 2021-0 2022- No 2mg QD Take [address] [facility] 2 mg Tab 2-04 01- by mouth [facility] 00:00: 00:00 daily. Medical 00 :00 [place] multivitami 2021-0 3- No 1{tbl} QD Take [address] n 2-23 02-23 tablet by [facility] (THERAGRAN) 00:00: 23:59 mouth Medi jf tablet 00 :00 daily. [place] multivitami 2021-0 2022- No 1{tbl} QD Take [address] n 2-23 11-29 tablet by [facility] (THERAGRAN) 00:00: 00:00 mouth Medi jf tablet 00 :00 daily. [place] multivitami 2021- No 1{tbl} QD Take [address] n 2-23 11-29 tablet by [facility] (THERSimScaleAN) 00:00: 00:00 mouth Medi jf tablet 00 :00 daily. [place] multivitami 2021- No 1{tbl} QD Take [address] n 2-23 11-29 tablet by [facility] (THERAGRAN) 00:00: 00:00 mouth Medi jf tablet 00 :00 daily. [place] multivitami 2021- No 1{tbl} QD Take [address] n 2-23 11-29 tablet by [facility] (THERAGRAN) 00:00: 00:00 mouth Medi jf tablet 00 :00 daily. [place] multivitami 2021- No 1{tbl} QD Take [address] n 2-23 11-29 tablet by [facility] (THERAGRAN) 00:00: 00:00 mouth Medi jf tablet 00 :00 daily. [place] multivitami 2021- No 1{tbl} QD Take [address] n 2-23 11-29 tablet by [facility] (THERAGRAN) 00:00: 00:00 mouth Medi jf tablet 00 :00 daily. [place] multivitami 2021- No 1{tbl} QD Take [address] n 2-23 11-29 tablet by [facility] (THERAGRAN) 00:00: 00:00 mouth Medi jf tablet 00 :00 daily. [place] multivitami 2021- No 1{tbl} QD Take [address] n 2-23 11-29 tablet by [facility] (THERAGRAN) 00:00: 00:00 mouth Medi jf tablet 00 :00 daily. [place] multivitami 2021- No 1{tbl} QD Take [address] n 2-23 11-29 tablet by [facility] (THERAGRAN) 00:00: 00:00 mouth Medi jf tablet 00 :00 daily. [place] lubiproston Yes 72ug Q.5D Take [address] [facility] (AMITIZA) 2-22 capsules [facility] 24 MCG 00:00: (72 mcg Medical capsule 00 total) by [place] mouth 2 (two) times daily. lubiproston 2021- [...] 59 :00 (two) Center times daily. melatonin 2020-10 Yes 5mg Take [address] [facility] [...] 5mg Take [address] [facility] mg Tab 0-06 09- tablet (5 [facility] tablet 00:00: 00:00 mg total) Medic al 00 :00 by mouth Center every night as needed (sleep). melatonin 5 2020-10 No 5mg Take [address] [facility] mg Tab 0-06 09- tablet (5 [facility] tablet 00:00: 00:00 mg total) Medic al 00 :00 by mouth Center every night as needed (sleep). melatonin 5 2020-10 No 5mg Take [address] [facility] mg Tab 0- tablet (5 [facility] tablet 00:00: 00:00 mg total) Medic al 00 :00 by mouth Center every night as needed (sleep). lubiproston 2020-10 No 72ug Q.5D Take [address] [facility] (AMITIZA) 0-28 02-22 capsules Armando es 24 MCG 00:00: 00:00 (72 mcg Medical capsule 00 :00 total) by Center mouth 2 (two) times daily. lubiproston 2020-10 No 72ug Q.5D Take [address] [facility] (AMITIZA) 0-28 02-22 capsules Armando es 24 MCG 00:00: 00:00 (72 mcg Medical capsule 00 :00 total) by Center mouth 2 (two) times daily. lubiproston 2020-10 No 72ug Q.5D Take 3 [...] Q.5D Take [address] [facility] (AMITIZA) 028 02-22 capsules Armando es 24 MCG 00:00: 00:00 (72 mcg Medical capsule 00 :00 total) by Center mouth 2 (two) times daily. hydrocortis 2020-[address] [facility] one 0 11-07 rectally 2 [facility] (ANUSOL-HC) 00:00: 23:59 [...] 2 magnesium) (two) tablet times daily. polyethylen 2021-0 2022- No 34g Q.25D Take [address] [facility] glycol 7- 07-07 by mouth 4 [facility] (GLYCOLAX) 00:00: 23:59 (four) Medi jf 17 gram 00 :00 times Center packet daily. magnesium 2020-0 2022- No 400mg Q.5D Take [address] [facility] oxide 7- 07-07 tablet [facility] (MAG-OX) 00:00: 23:59 (400 mg Medic al 400 mg 00 :00 total) by Center (241.3 mg mouth 2 magnesium) (two) tablet times daily. polyethylen 2020-0 2022- No 34g Q.25D Take [address] [facility] glycol 7- 07-07 by mouth 4 [facility] (GLYCOLAX) 00:00: 23:59 (four) Medi jf 17 gram 00 :00 times Center packet daily. magnesium 2020-0 2022- No 400mg Q.5D Take [address] [facility] oxide 7- 07-07 tablet [facility] (MAG-OX) 00:00: 23:59 (400 mg Medic al 400 mg 00 :00 total) by Center (241.3 mg mouth 2 magnesium) (two) tablet times daily. polyethylen 2020-0 2022- No 34g Q.25D Take [address] [facility] glycol - 07-07 by mouth 4 [facility] (GLYCOLAX) 00:00: 23:59 (four) Medi jf 17 gram 00 :00 times Center packet daily. magnesium 2020-0 2022- No 400mg Q.5D Take [address] [facility] oxide 7-07 07-07 tablet [facility] (MAG-OX) 00:00: 23:59 (400 mg Medic al 400 mg 00 :00 total) by Center (241.3 mg mouth 2 magnesium) (two) tablet times daily. polyethylen 2020-0 2022- No 34g Q.25D Take [address] [facility] glycol 7- 07-07 by mouth 4 [facility] (GLYCOLAX) 00:00: 23:59 (four) Medi jf 17 gram 00 :00 times Center packet daily. magnesium 1-0 2022- No 400mg Q.5D Take [address] [facility] oxide 7-07 07-07 tablet [facility] (MAG-OX) 00:00: 23:59 (400 [...] No 4mg 4 mg, Slow [facility] (ZOFRAN 10-1910 IV Push, ity of (PF)) 08:00: 06:57 ONCE, 1 [place] injection 4 00 :00 dose, Sun Med ical mg 10/19/20 at [facility] 0200, FAROOQ D5W 0.45% 0 Yes 1000mL at 125 Univ ers NaCl 1-10 mL/hr, ity of (1/2NS) IV 07:45: 1,000 mL, [place] infusion 00 IV Medical 1,000 mL Infusion, [facility] CONTINUOUS , Starting 10/19/20 at 0145, Until Discontinu ed, FAROOQ iohexol 2020- No 120mL 120 mL, Unive rs (OMNIPAQUE 10-1910 Intravenou it y of 350 04:15: 03:58 s, ONCE, 1 [place] BULK-100 00 :00 dose, Sat Medica l mL) 10/18/20 at [facility] injection 2215, 120 mL Routine NaCl 0.9% 2020- No 1000mL at 999 Uni vers (NS) bolus 10-19 01-10 mL/hr, ity of infusion 03:15: 04:55 1,000 mL, [place] as 1,000 mL 00 :00 IV Medical Infusion, [place] ONCE, 1 dose, 10/18/20 at 2115, FAROOQ [...] [facility] jeanette 7-31 mg by [facility] (PULMOZYME) 00:00: nebulizati Medical 1 mg/mL 00 on 2 (two) Center nebulizer times solution daily. tobramycin, 2020-0 Yes [id number] 300mg Take 1 [facility], (LAVON) 6-16 Ampule by Chuy ege 300 MG/5ML 00:00: nebulizati o f nebulizer 00 on two Medicin solution times e daily. Alternate 28 days on with 28 days off. albuterol 2020-0 Yes [id number] 2.5mg Take 1 [facility] (PROVENTIL) 6-15 Ampule by Col lege (2.5 mg/3 00:00: nebulizati of mL) 0.083% 00 on two Medicin nebulizer times e solution daily. sodium 2019- Yes [id number] 4mL 1 Ampule [place] rasheed chloride, 6-15 two times Colle ge Inhalant, 00:00: daily. of (HYPER-CHELSEA) 00 Medicin 7 % e nebulizer solution dornase 2019- Yes [id number] 2.5mg Take 1 [place] rasheed alpha 6-15 Ampule by Rayne (PULMOZYME) 00:00: nebulizati of 1 MG/ML 00 on daily. Medicin nebulizer e solution Nutritional 2020- No [id number] 1{bottl Take 1 [facility] Supplements 6-15 12-13 e} Bottle by Renuka vasquez (ENSURE 00:00: 05:59 mouth 3 of PLUS) LIQD 00 :00 times Medicin daily for e 180 days. Multiple 2020- No [id number] 1{capsu Take 1 [facility] Vitamins-Mi 6-15 12-13 le} capsule by Roel castillo (MVW 00:00: 05:59 mouth 2 of COMPLETE 00 :00 times Medicin FORMULATION daily e D5000) CAPS (with meals) for 180 days. elexacaftor Yes 2{tbl} Take [address] -tezacaftor 6-11 tablets by Bere crespo 00:00: mouth Medical (TRIKAFTA) 00 Every Center 100-50-75 morning mg(d) /150 and one in mg (n) TbSQ evening. elexacaftor Yes 2{tbl} QD Take [address] -tezacaftor 6-11 tablets by Bere crespo 00:00: mouth Medical (TRIKAFTA) 00 every Center 100-50-75 evening mg(d) /150 Take As mg (n) TbSQ directed by dr. reyes Yes 2{tbl} Take [address] -tezacaftor 6-11 tablets by Bere crespo 00:00: mouth Medical (TRIKAFTA) 00 Every Center 100-50-75 morning mg(d) /150 and one in mg (n) TbSQ evening. elexacaftor Yes 2{tbl} Take [address] -tezacaftor 6-11 tablets by Bere moodys -ivacasanford 00:00: mouth Medical (TRIKAFTA) 00 Every Center 100-50-75 morning mg(d) /150 and one in mg (n) TbSQ evening. elexacaftor 2020-0 Yes 2{tbl} Take [address] -tezacaftor 6-11 tablets by Bere moodys -ivacasanford 00:00: mouth Medical (TRIKAFTA) 00 Every Center 100-50-75 morning mg(d) /150 and one in mg (n) TbSQ evening. elexacaftor 2020-0 Yes 2{tbl} Take [address] -tezacaftor 6-11 tablets by Bere moodys -ivacasanford 00:00: mouth Medical (TRIKAFTA) 00 Every Center 100-50-75 morning mg(d) /150 and one in mg (n) TbSQ evening. elexacaftor 2020-0 Yes 2{tbl} Take [address] -tezacaftor 6-11 tablets by Bere moodys -ivacasanford 00:00: mouth Medical (TRIKAFTA) 00 Every Center 100-50-75 morning mg(d) /150 and one in mg (n) TbSQ evening. elexacaftor 2020-0 Yes 2{tbl} Take [address] -tezacaftor 6-11 tablets by Bere moodys -ivacasanford 00:00: mouth Medical (TRIKAFTA) 00 Every Center 100-50-75 morning mg(d) /150 and one in mg (n) TbSQ evening. elexacaftor 2020-0 Yes 2{tbl} Take [address] -tezacaftor 6-11 tablets by Bere moodys -ivacasanford 00:00: mouth Medical (TRIKAFTA) 00 Every Center 100-50-75 morning mg(d) /150 and one in mg (n) TbSQ evening. elexacaftor 2020-0 Yes 2{tbl} Take [address] -tezacaftor 6-11 tablets by Bere moodys -ivacasanford 00:00: mouth Medical (TRIKAFTA) 00 Every Center 100-50-75 morning mg(d) /150 and one in mg (n) TbSQ evening. TRIKAFTA 2020-0 Yes [id number] Take 2 [place] rasheed 100-50-75 & 6-11 [facility] [employer] [facility] 150 MG TBPK 00:00: tablets by of 00 mouth Medicin every e morning, and 1 blue tablet by mouth every evening (12 hours apart) with fat-contai sharan food. Elexacaf-Te 2020-0 Yes [id number] Take 2 [facility] zacaf-Ivaca 3-05 tablets by Co llege f&Ivacaf 00:00: mouth of 100-50-75 & 00 every Medicin 150 MG TBPK morning e AND 1 tablet nightly. 12 hours apart. Take with 12g of fat. [place] tablet morning, blue tablet night. polyethylen 2020-0 Yes [id number] 1{packe Take 1 [facility] e glycol 2-17 t} Packet by Marita vilchis (MIRALAX) 00:00: mouth four of packet 00 times Medicin daily. e Each packet should be 17 grams. polyethylen 2020-0 Yes [id number] 1{packe Take 1 [facility] e glycol 2-17 t} Packet by Marita vilchis (MIRALAX) 00:00: mouth four of packet 00 times Medicin daily. e Each packet should be 17 grams. sodium 2020-0 Yes [id number] 4mL 1 Ampule [place] rasheed chloride, 1-16 two times Colle ge Inhalant, 00:00: daily. of (HYPER-CHELSEA) 00 Medicin 7 % e nebulizer solution tobramycin, 2020-0 Yes 300mg Take 1 [place] rasheed PF, (LAVON) 1-16 Ampule by Chuy ege 300 MG/5ML 00:00: nebulizati o f nebulizer 00 on two Medicin solution times e daily. Indication s: Alternate 21 days on with 21 days off dornase 2020-0 Yes [id number] 2.5mg Take 1 [place] rasheed alpha 1-16 Ampule by Jose (PULMOZYME) 00:00: nebulizati of 1 MG/ML 00 on daily. Medicin nebulizer e solution albuterol 2020-0 Yes [id number] 2.5mg Take 1 [facility] (PROVENTIL) 1-16 Ampule by legmame (2.5 mg/3 00:00: nebulizati of mL) 0.083% 00 on two Medicin nebulizer times e solution daily. Nutritional 2020- No [id number] 1{bottl Take 1 [facility] Supplements 1-16 07-15 e} Bottle by Renuka vasquez (ENSURE 00:00: 04:59 mouth 3 of PLUS) LIQD 00 :00 times Medicin daily for e 180 days. polyethylen 2019- Yes [id number] Drink 8 oz [facility] e glycol 1-09 every 15 College (GOLYTELY;N 00:00: minutes of ULYTELY) 00 till Medicin 236 g having e suspension regular bowel movments. polyethylen 2020- No [id number] Drink 8 oz [facility] e glycol 1-09 07-08 every 15 Colleg e (GOLYTELY;N 00:00: 00:00 minutes of ULYTELY) 00 :00 till Medicin 236 g having e suspension regular bowel movments. Multiple 2018-10 2020- No [id number] 1{capsu Take 1 [facility] Vitamins-Mi 2-05 06-03 le} capsule by Roel castillo (MVW 00:00: 04:59 mouth 2 of COMPLETE 00 :00 times Medicin FORMULATION daily e D5000) CAPS (with meals) for 180 days. Nutritional 2020- No [id number] 1{bottl Take 1 [facility] Supplements 7-11 01-08 e} Bottle by Renuka vasquez (ENSURE 00:00: 05:59 mouth 3 of PLUS) LIQD 00 :00 times Medicin daily for e 180 days. polyethylen Yes [id number] 17g Take 17 g [facility] e glycol 7-10 by mouth Rayne (GLYCOLAX) 00:00: four times o f powder 00 daily. Medicin e Mineral Oil 2019- Yes [id number] 1{enema PLACE 1 [facility] ENEM 5-23 } ENEMA College 00:00: RECTALLY of 00 NEEDED Medicin e Mineral Oil 2019- Yes [id number] 1{enema PLACE 1 [facility] ENEM 5-23 } ENEMA [facility] 00:00: RECTALLY of 00 NEEDED Medicin e Mineral Oil 2019- Yes [id number] 1{enema PLACE 1 [facility] ENEM 5-23 } ENEMA [facility] 00:00: RECTALLY of 00 NEEDED Medicin e Linaclotide 2019- Yes 1{tbl} Take 1 Tab [facility] (LINZESS) 3-28 by mouth Colleg e 290 MCG 00:00: daily. of CAPS 00 Medicin e dornase Yes [id number] 2.5mg Take 1 [place] rasheed alpha 1-18 Ampule by Rayne (PULMOZYME) 00:00: nebulizati of 1 MG/ML 00 on daily. Medicin nebulizer e solution Pancrelipas Yes 1{capsu Take 1 Cap [facility] e, 1-09 le} by mouth [facility] Lip-Prot-Am 00:00: four times of yl, (CREON) 00 daily. Medici n 82475 units e CPEP Pancrelipas Yes 1{capsu Take 1 Cap [facility] e, 1-09 le} by mouth [facility] Lip-Prot-Am 00:00: four times of yl, (CREON) 00 daily. Medici n 63023 units e CPEP Pancrelipas Yes 1{capsu Take 1 Cap [facility] e, 1-09 le} by mouth Ray[facility] Lip-Prot-Am 00:00: four times of yl, (CREON) 00 daily. Medici n 69568 units e CPEP pediatric 2017-10 Yes 1{capsu QD Take [address] [facility] multivit 2- le} capsule by Tayla 61-D3-vit K 00:00: mouth Medic al (MVW 00 daily. Center COMPLETE FORMULATION D5000) 5,000-800 unit-mcg Cap Multiple 2017-10 Yes 1{capsu Take 1 [facility] Vitamins-Mi 2- le} capsule by Renuka castillo (MVW 00:00: mouth 2 of COMPLETE 00 times Medicin FORMULATION daily e D5000) CAPS (with meals) for 180 days. pediatric 2017-10- No 1{capsu QD Take [address] multivit 2-09-07 le} capsule by John cleaning 61-D3-vit K 00:00: 00:00 mouth Medi jf (MVW 00 :00 daily. Center COMPLETE FORMULATION D5000) 5,000-800 unit-mcg Cap pediatric 2017-10- No 1{capsu QD Take [address] [facility] multivit 2-09-07 le} capsule by John cleaning 61-D3-vit K 00:00: 00:00 mouth Medi jf (MVW 00 :00 daily. Center COMPLETE FORMULATION D5000) 5,000-800 unit-mcg Cap pediatric 2018-2- No 1{capsu QD Take [address] multivit 2-09-07 le} capsule by John cleaning 61-D3-vit K 00:00: 00:00 mouth Medi jf (MVW 00 :00 daily. Center COMPLETE FORMULATION D5000) 5,000-800 unit-mcg Cap pediatric 2018-2021- No 1{capsu QD Take [address] multivit 2-09-07 le} capsule by John cleaning 61-D3-vit K 00:00: 00:00 mouth Medi jf (MVW 00 :00 daily. Center COMPLETE FORMULATION D5000) 5,000-800 unit-mcg Cap pediatric 2017-2021- No 1{capsu QD Take [address] multivit 2-09-07 le} capsule by John cleaning 61-D3-vit K 00:00: 00:00 mouth Medi jf (MVW 00 :00 daily. Center COMPLETE FORMULATION D5000) 5,000-800 unit-mcg Cap pediatric 2017-2021- No 1{capsu QD Take [address] multivit 2-09-07 le} capsule by John cleaning 61-D3-vit K 00:00: 00:00 mouth Medi jf (MVW 00 :00 daily. Center COMPLETE FORMULATION D5000) 5,000-800 unit-mcg Cap pediatric 2017-2021- No 1{capsu QD Take [address] multivit 209-07 le} capsule by John cleaning 61-D3-vit K 00:00: 00:00 mouth Medi jf (MVW 00 :00 daily. Center COMPLETE FORMULATION D5000) 5,000-800 unit-mcg Cap pediatric 2017-2021- No 1{capsu QD Take [address] multivit 2-09-07 le} capsule by John cleaning 61-D3-vit K 00:00: 00:00 mouth Medi jf (MVW 00 :00 daily. Center COMPLETE FORMULATION D5000) 5,000-800 unit-mcg Cap pediatric 2017-2021- No 1{capsu QD Take [address] multivit 2-09-07 le} capsule by John cleaning 61-D3-vit K 00:00: 00:00 mouth Medi jf (MVW 00 :00 daily. Center COMPLETE FORMULATION D5000) 5,000-800 unit-mcg Cap sodium 2017-10 Yes 4mL Q.5D [address] [facility] chloride, - (two) [facility] hypertonic, 00:00: times Medic al (HYPER-CHELSEA) 00 daily . Cente r 7 % nebulizer solution sodium 2017-10 Yes 4mL QD [address] chloride, - daily . [facility] hypertonic, 00:00: Medica l (HYPER-CHELSEA) 00 Center 7 % nebulizer solution sodium 2017-10 Yes 4mL Q.5D [address] [facility] chloride, - (two) [facility] hypertonic, 00:00: times Medic al (HYPER-CHELSEA) 00 daily . Cente r 7 % nebulizer solution sodium 2017-10 Yes 4mL Q.5D [address] [facility] chloride, - (two) [facility] hypertonic, 00:00: times Medic al (HYPER-CHELSEA) 00 daily . Cente r 7 % nebulizer solution sodium 2017-10 Yes 4mL Q.5D [address] [facility] chloride, - (two) [facility] hypertonic, 00:00: times Medic al (HYPER-CHELSEA) 00 daily . Cente r 7 % nebulizer solution sodium 2017-10 Yes 4mL Q.5D [address] [facility] chloride, - (two) [facility] hypertonic, 00:00: times Medic al (HYPER-CHELSEA) 00 daily . Cente r 7 % nebulizer solution sodium 2017-10 Yes 4mL Q.5D [address] [facility] chloride, - (two) [facility] hypertonic, 00:00: times Medic al (HYPER-CHELSEA) 00 daily . Cente r 7 % nebulizer solution sodium 2017-10 Yes 4mL Q.5D [address] [facility] chloride, -29 (two) [facility] hypertonic, 00:00: times Medic al (HYPER-CHELSEA) 00 daily . Cente r 7 % nebulizer solution sodium 2017-10 Yes 4mL Q.5D [address] [facility] chloride, -29 (two) [facility], 00:[facility]: times [facility] (HYPER-[facility]HEL[facility]) 00 daily . [facility] 7 % nebulizer solution sodium 2017-10 Yes 4mL Q.5D [address] [facility] chloride, 1-29 (two) [facility], 00:[facility]: times [facility] (HYPER-[facility]HEL[facility]) 00 daily . [facility] r 7 % nebulizer solution albuterol 2017-10 Yes [id number] 2.5mg Take 1 [facility] ([facility]) 11-07 Ampule by Col le[facility] (2.5 mg/3 00:00: nebulizati of mL) 0.083% 00 on two Medic[facility] nebulizer times e solution daily. sodium 2017-10 Yes [id number] 4mL 1 Ampule [place] [facility]heed chloride, 11-07 two times Colle ge Inhalant, 00:00: daily. of (HYPER-CHELSEA) 00 Medicin 7 % e nebulizer solution tobramycin, 2017-10 Yes 300mg Take 1 [place] rasheed PF, (LAVON) 11-07 Ampule by [place] [...] meals. 1-2 tablets with snacks . albuterol 2018-0 Yes 2.5mg Take 3 mLs [facility] [...] meals. 1-2 tablets with snacks . albuterol 2018-0 Yes 2.5mg Take 3 mLs [facility] [...] meals. 1-2 tablets with snacks . albuterol 2018-0 Yes 2.5mg Take [address] ([facility]) 9-23 (2.5 mg [facility] 2[facility] /3 00:00: total) by Med ical mL (0.083 [address] [facility] %) on every 6 nebulizer (six) solution hours as needed for Wheezing. tobramycin, 2017-0 Yes 300mg Q.5D Take 5 mLs [facility] [...] solution hours as needed for Wheezing. tobramycin, 2017-0 Yes 300mg Q.5D Take 5 mLs [facility] [...] meals. 1-2 tablets with snacks . albuterol 2018-0 Yes 2.5mg Take [address] ([facility]) 9-23 (2.5 mg [facility] 2.5 mg /3 00:00: total) by Med ical mL (0.083 [address] [facility] %) on every 6 nebulizer (six) solution hours as needed for Wheezing. tobramycin, 2017-0 Yes 300mg Q.5D Take [address] [facility] PF, (LAVON) 9-23 (300 mg [facility] 300 mg/5 mL 00:00: total) by M edical nebulizer 00 [address] er solution on 2 (two) times daily 21days on . lipase-prot 2017-0 Yes 1{capsu Take [address] [facility]-amyl[facility] 9-23 le} capsule by Bere [employer] e (CREON) 00:00: mouth 3 Medic al [...] [facility] ease-amylas 9-23 le} capsule by Bere [employer] [facility] (CREON) 00:00: mouth 3 Medic al [...] solution hours as needed for Wheezing. tobramycin, 2017-0 Yes 300mg Q.5D Take [address] [facility], (LAVON) 9-23 (300 mg [facility]/5 mL 00:00: total) by Enriqueta edical nebulizer [address] er solution on 2 (two) times daily 21days on . lipase-prot 2017-0 Yes 1{capsu Take [address] [facility]-amyl[facility] 9- le} capsule by Bere vilchis (CREON) 00:00: mouth 3 Medic al 36,000-114, 00 (three) Cente r 000- times 180,000 daily with unit CpDR meals 3 capsule tablets before meals. 1-2 tablets with snacks . No known No [facility] Ordered Immunization Filled Immunization Date Status Commen ts Source Name Name Pneumococcal 2019-06-[address] [facility] Conjugate (Prevnar) 00:00:00 [facility] Pneumococcal 2019-06-[address] [facility] Conjugate (Prevnar) 00:00:00 [facility] Pneumococcal 2019-06-[address] [facility] Conjugate (Prevnar) 00:00:00 [facility] Pneumococcal 2019-06-[address] [facility] Conjugate (Prevnar) 00:00:00 [facility] Pneumococcal 2019-06-[address] [facility] Conjugate (Prevnar) 00:00:00 [facility] Pneumococcal 2019-06-[address] [facility] Conjugate (Prevnar) 00:00:00 [facility] Pneumococcal 2019-06-[address] [facility] Conjugate (Prevnar) 00:00:00 [facility] Pneumococcal 2019-06-[address] [facility] Conjugate (Prevnar) 00:00:00 [facility] Pneumococcal 2019-06-[address] [facility] Conjugate (Prevnar) 00:00:00 [facility] Pneumococcal 2019-06-[address] [facility] Conjugate (Prevnar) 00:00:00 [facility] Influ[facility] (whole) 2019-05-30 Completed [facility] 00:00:00 of Medicine Influenza (whole) 2019-05-30 Completed [facility] 00:00:00 of Medicine Influenza (whole) 2019-05-30 Completed [facility] 00:00:00 of Medicine Influenza Quad-PF 2018-08-29 Completed [facility] 00:00:00 of Medicine Influenza Quad-PF 2018-08-29 Completed [facility] 00:00:00 of Medicine Influenza Quad-PF 2018-08-29 Completed [facility] 00:00:00 of Medicine Influenza Four-QIV 2018-07-22 Completed [...] 07:00:00 134 mm[Hg] Univer sity of pressure [facility] Diastolic blood 2020-10-19 07:00:00 92 mm[Hg] Unive rsity of pressure [facility] Heart rate 2020-10-19 07:00:00 53 /min [facility] Respiratory rate 2020-10-19 07:00:00 15 /min Univ ers[facility] Oxygen saturation in 2020-10-19 07:00:00 100 /min University of Arterial blood by [facility] jf Pulse oximetry Branch Body temperature 2020-10-19 03:08:00 36.72 [facility] Body height 2020-10-19 03:08:00 185.4 cm [facility] Body weight 2020-10-19 03:08:00 70.308 kg [facility] BMI 2020-10-19 03:08:00 20.45 kg/m2 [facility] Systolic blood 2020-10-19 07:00:00 134 mm[Hg] Univer sity of [facility] Diastolic blood 2020-10-19 07:00:00 92 mm[Hg] Unive rsity of pressure [facility] Heart rate 2020-10-19 07:00:00 53 /min [facility] Respiratory rate 2020-10-19 07:00:00 15 /min Univ ers[facility] Oxygen saturation in 2020-10-19 07:00:00 100 /min University of Arterial blood by [place] [employer] jf Pulse oximetry Branch Body temperature 2020-10-19 03:08:00 36.72 [facility] Body height 2020-10-19 03:08:00 185.4 cm [facility] Body weight 2020-10-19 03:08:00 70.308 kg [facility] BMI 2020-10-19 03:08:00 20.45 kg/m2 [facility] HEIGHT 2020-10-15 08:14:00 185.4 cm WEIGHT 2020-10-15 [...] kg Systolic blood 2020-04-16 19:06:00 149 mm[Hg] [facility] pressure Medicine Diastolic blood 2020-04-16 19:06:00 82 mm[Hg] [facility] pressure Medicine Heart rate 2020-04-16 19:06:00 72 /min [facility] Body temperature 2020-04-16 19:06:00 37 Emer[facility] Respiratory rate 2020-04-16 19:06:00 18 /min [facility] Body height 2020-04-16 19:06:00 180.3 cm [facility] Body weight 2020-04-16 19:06:00 73.755 kg [facility] BMI 2020-04-16 19:06:00 22.68 kg/m2 [facility] Systolic blood 2019-12-12 19:02:00 124 mm[Hg] [facility] Medicine Diastolic blood 2019-12-12 19:02:00 84 mm[Hg] [facility] Medicine Heart rate 2019-12-12 19:02:00 86 /min [facility] ol[facility] Body temperature 2019-12-12 19:02:00 37.17 [facility] Respiratory rate 2019-12-12 19:02:00 18 /min [facility] Body height 2019-12-12 19:02:00 180.3 cm [facility] Body weight 2019-12-12 19:02:00 70.126 kg [facility] BMI 2019-12-12 19:02:00 21.56 kg/m2 [facility] Systolic blood 2019-07-17 18:38:00 104 mm[Hg] [facility] Diastolic blood 2019-07-17 18:38:00 65 mm[Hg] [facility] Heart rate 2019-07-17 18:38:00 63 /min [facility] Body temperature 2019-07-17 18:38:00 36.67 [facility] Respiratory rate 2019-07-17 18:38:00 18 /min [facility] Body height 2019-07-17 18:38:00 180.3 cm [facility] Body weight 2019-07-17 18:38:00 71.215 [facility] 2019-07-17 18:38:00 21.90 kg/m2 [facility] Systolic blood 2022-09-26 13:00:00 107 mm[Hg] [facility] Diastolic blood 2022-09-26 13:00:00 76 mm[Hg] [facility] Heart rate 2022-09-26 13:00:00 54 /min [facility] Body temperature 2022-09-26 13:00:00 36.56 [facility] Respiratory rate 2022-09-26 13:00:00 19 /min [facility] Oxygen saturation in 2022-09-26 13:00:00 97 /min [facility] Arterial blood by Medical Ce nter Pulse oximetry Body height 2022-09-24 03:22:00 185.4 cm [facility] Body weight 2022-09-24 03:22:00 68.811 kg [facility] BMI 2022-09-24 03:22:00 20.01 kg/m2 [facility] Systolic blood 2022-09-11 11:47:00 128 mm[Hg] [facility] Diastolic blood 2022-09-11 11:47:00 72 mm[Hg] [facility] Heart rate 2022-09-11 11:47:00 58 /min [facility] Body temperature 2022-09-11 11:47:00 36.56 [facility] Respiratory rate 2022-09-11 11:47:00 20 /min [facility] Oxygen saturation in 2022-09-11 11:47:00 100 /min [facility] Arterial blood by Medical Ce [facility]ter Pulse oximetry Systolic blood 2022-09-07 23:33:00 114 mm[Hg] [facility] Diastolic blood 2022-09-07 23:33:00 51 mm[Hg] [facility] Heart rate 2022-09-07 23:33:00 58 /min [facility] Body temperature 2022-09-07 23:33:00 37.06 [facility] Respiratory rate 2022-09-07 23:33:00 18 /min [facility] Oxygen saturation in 2022-09-07 23:33:00 98 /min [facility] Arterial blood by Medical Ce nter Pulse oximetry Body height 2022-09-07 20:33:00 185.4 cm [facility] Body weight 2022-09-07 20:33:00 69.491 kg [facility] BMI 2022-09-07 20:33:00 20.21 kg/m2 [facility] Heart rate 2021-12-09 08:50:00 63 /min [facility] Respiratory rate 2021-12-09 08:50:00 18 /min [facility] Oxygen saturation in 2021-12-09 08:50:00 96 /min [facility] Arterial blood by Medical Ce nter Pulse oximetry Systolic blood 2021-12-09 07:57:00 116 mm[Hg] [facility] Diastolic blood 2021-12-09 07:57:00 70 mm[Hg] [facility] Body temperature 2021-12-09 07:57:00 36.61 [facility] Body weight 2021-12-08 20:00:00 67.767 kg [facility] BMI 2021-12-08 20:00:00 19.71 kg/m2 [facility] Body height 2021-12-05 07:23:00 185.4 cm [facility] Procedures Procedure Date / Time Performing Clinician Source Performed CBC W/AUTO DIFF WITH 2022-11-29 11:53:00 [facility] COMPREHENSIVE METABOLIC 2022-11-29 11:53:00 [facility] Medicine PROTIME-INR 2022-11-29 11:53:00 [facility] VITAMIN A 2022-11-29 11:53:00 [facility] VITAMIN D 25 HYDROXY 2022-11-29 11:53:00 [facility] VITAMIN E 2022-11-29 11:53:00 [facility] TESTOSTERONE 2022-11-29 11:53:00 [facility] HEMOGLOBIN A1C 2022-11-29 11:53:00 [facility] LIPID PANEL 2022-11-29 11:53:00 [facility] IGE 2022-11-29 11:53:00 [facility] TSH 2022-11-29 11:53:00 [facility] FUNGAL CULTURE 2022-11-29 11:25:33 [facility] ACID FAST CULTURE 2022-11-29 11:25:33 [facility] CULTURE, RESPIRATORY, 2022-11-29 11:25:33 [facility] of CYSTIC FIBROSIS Medicine CBC W/AUTO DIFF WITH 2022-11-29 11:21:22 [facility] COMPREHENSIVE METABOLIC 2022-11-29 11:21:22 [facility] PROTIME-INR 2022-11-29 11:21:22 [facility] VITAMIN A 2022-11-29 11:21:22 [facility] VITAMIN D 25 HYDROXY 2022-11-29 11:21:22 [facility] VITAMIN E 2022-11-29 11:21:22 [facility] TESTOSTERONE 2022-11-29 11:21:22 [facility] HEMOGLOBIN A1C 2022-11-29 11:21:22 [facility] LIPID PANEL 2022-11-29 11:21:22 [facility] IGE 2022-11-29 11:21:22 [facility] TSH 2022-11-29 11:21:22 [facility] FUNGUS CULTURE + SMEAR 2022-11-29 11:21:00 MarcinRadha khan [facility] [employer] CULTURE + SMEAR 2022-11-29 11:21:00 Radha Burch [facility] (SPUTUM ONLY) [facility] CF RESPIRATORY CULTURE 2022-11-29 11:21:00 Radha Burch [facility] SPIN/CONCENTRATION CHARGE 2022-11-29 11:21:00 Radha Burch [facility] CULTURE, RESPIRATORY, 2022-11-29 11:21:00 [facility] of CYSTIC FIBROSIS Medicine SPIROMETRY (IN CLINIC) 2022-11-29 00:00:00 [facility] XR ABDOMEN/KUB 1 VIEW 2022-09-26 07:55:00 Ofelia Lema [facility] BASIC METABOLIC PANEL 2022-09-26 05:16:00 Stefano Brumfield In [facility] MAGNESIUM 2022-09-26 05:16:00 Stefano Brumfield In [facility] XR ABDOMEN/KUB 1 VIEW 2022-09-25 14:10:00 Ofelia Lema [facility] SARS-COV2/RT-PCR ([facility] & 2022-09-25 14:03:00 Stefano Brumfield In [facility] REF LABS) [facility] XR CHEST 1 VIEW PORTABLE / 2022-09-24 11:24:00 Minnie Oliva [facility] BASIC METABOLIC PANEL 2022-09-24 04:05:00 Chaparro Farah [facility] HEPATIC FUNCTION PANEL 2022-09-24 04:05:00 Chaparro Farah [facility] PROTHROMBIN TIME/INR 2022-09-24 04:05:00 Chaparro Farah CH [facility] MAGNESIUM 2022-09-24 04:05:00 Chaparro Farah [facility] PHOSPHORUS 2022-09-24 04:05:00 Chaparro Farah [facility] CBC W/PLT COUNT & AUTO 2022-09-24 04:05:00 Chaparro Farah [facility] CBC W/PLT COUNT & AUTO 2022-09-24 04:05:00 Chaparro Farah [facility] EKG-SCANNED 2022-09-24 00:00:00 Gloria Kaye [facility] BASIC METABOLIC PANEL 2022-09-11 05:23:00 Lightle [facility] HEPATIC FUNCTION PANEL 2022-09-11 05:23:00 Lightle [facility] MAGNESIUM 2022-09-11 05:23:00 Lightle [facility] PHOSPHORUS 2022-09-11 05:23:00 [facility] W[facility]T [facility] & AUTO 2022-09-11 05:23[facility] W/[facility]T [facility] & AUTO 2022-09-11 05:23:00 [facility] BASIC MET[facility]OLIC PANEL 2022-09-10 03:26:00 Lightle, [facility] HEPATIC FUNCTION PANEL 2022-09-10 03:26:00 Lightle, [facility] MAGNESIUM 2022-09-10 03:26:00 Lightle, [facility] PHOSPHORUS 2022-09-10 03:26:00 Lightle, [facility] CBC W/PLT COUNT & AUTO 2022-09-10 03:26:00 Lightle, [facility] VANCOMYCIN LEVEL, TROUGH 2022-09-10 03:26:00 Sandoval Lipscomb CH I [facility] CBC W/PLT COUNT & AUTO 2022-09-10 03:26:00 Lightle, [facility] US ABDOMEN LIMITED 2022-09-09 19:26:00 Lightle, [facility] XR ABDOMEN/KUB 1 VIEW 2022-09-09 13:27:00 Lightle, [facility] RESPIRATORY PANEL 2022-09-09 13:07:00 [facility] BILIRUBIN, DIRECT 2022-09-09 13:04[facility] 2022-09-09 09:43[facility] 2022-09-09 09:43:00 Lightle, [facility] MAGNESIUM 2022-09-09 09:43:00 Lightle, [facility] PHOSPHORUS 2022-09-09 09:43:00 Lightle, [facility] CBC W/PLT COUNT & AUTO 2022-09-09 09:43:00 [facility] W/PLT COUNT & AUTO 2022-09-09 09:43:00 [facility] CHEST 1 VIEW PORTABLE / 2022-09-08 18:51:00 Sandoval Lipscomb [facility] STREP PNEUMONIAE ANTIGEN 2022-09-08 17:19:00 Sandoval Lipscomb [facility] LACTIC ACID, VENOUS 2022-09-08 17:18:00 [facility] PROCALCITONIN 2022-09-08 17:18:00 [facility] BLOOD [facility] 2022-09-08 17:16:00 [facility] COMPREHENSIVE METABOLIC 2022-09-08 04:32:00 [facility] MAGNESIUM 2022-09-08 04:32:00 [facility] CBC (HEMOGRAM ONLY) 2022-09-08 04:32:00 [facility] SARS-COV2/RT-PCR ([facility] & 2022-09-07 06:24:00 [facility] REF LABS) [facility] CT ABDOMEN/PELVIS WITH IV 2022-09-07 04:32:00 Jesus Ewing CH, I [facility] BASIC METABOLIC PANEL 2022-09-07 02:23:00 Jesus Ewing [facility] HEPATIC FUNCTION PANEL 2022-09-07 02:23:00 Jesus Ewing [facility] LIPASE 2022-09-07 02:23:00 Jesus Ewing [facility] CBC W/PLT COUNT & AUTO 2022-09-07 02:22:00 Jesus Ewing [facility] LACTIC ACID, VENOUS 2022-09-07 02:22:00 Jesus Ewing [facility] CBC W/PLT COUNT & AUTO 2022-09-07 02:22:00 [facility] URINALYSIS W/ REFLEX URINE 2022-09-07 00:38:00 Jesus Ewing [facility] CULTURE [facility] URINE CULTURE 2022-09-07 00:38:00 Jesus Ewing [facility] ECG 12-LEAD 2022-09-06 23:05:36 Jesus Ewing [facility] ECG 12-LEAD 2022-09-06 23:05:36 Unknown, [facility] ECG 12-LEAD 2022-09-06 23:05:36 Unknown, [facility] EKG-SCANNED 2022-09-06 00:00:00 ProviderGloria [facility] CF RESPIRATORY CULTURE 2022-07-05 13:40:[address] [facility] AMB REF TO 2022-07-05 11:45:20 [facility] of GASTROENTEROLOGY [facility] Medicine CULTURE, RESPIRATORY, 2022-07-05 11:28:56 [facility] CYSTIC FIBROSIS Medicine FLU VACCINE QUAD 2022-07-05 11:22:08 [facility] Chuy ege of PRESERVATIVE FREE IM Medicine SPIROMETRY (IN CLINIC) 2022-07-05 00:00:[address] [facility] CT ABDOMEN/PELVIS WITH IV 2022-06-27 05:18:00 Debi Briggs [facility] CBC W/PLT COUNT & AUTO 2022-06-27 01:32:00 [facility] BASIC METABOLIC PANEL 2022-06-27 01:32:00 [facility] HEPATIC FUNCTION PANEL 2022-06-27 01:32:00 [facility] LIPASE 2022-06-27 01:32:00 [facility] CBC W/PLT COUNT & AUTO 2022-06-27 01:32:00 [facility] POCT-GLUCOSE METER 2022-06-22 17:11:00 Tonny Meneses [facility] POCT-GLUCOSE METER 2022-06-22 12:56:00 [facility]SE [facility] 2022-06-22 05:50:00 [facility] BASIC METABOLIC PANEL 2022-06-22 03:56:00 [facility] CALCIUM, IONIZED 2022-06-22 03:56:00 [facility]OS[facility]US 2022-06-22 03:56:00 [facility] CBC W/PLT COUNT & AUTO 2022-06-22 03:56:00 Tonny Meneses CH, I [facility] MAGNESIUM 2022-06-22 03:56:00 [facility] CBC W/PLT COUNT & AUTO 2022-06-22 03:56:[address] [facility] POCT-GLUCOSE METER 2022-06-22 00:16:00 [facility] POCT-GLUCOSE METER 2022-06-21 17:12:00 [facility] POCT-GLUCOSE METER 2022-06-21 12:49:00 [facility] POCT-GLUCOSE METER 2022-06-21 08:18:00 [facility] BASIC [facility]OLIC PANEL 2022-06-21 04:58:00 [facility] CALCIUM, IONIZED 2022-06-21 04:58:00 [facility] PHOSPHORUS 2022-06-21 04:58:00 [facility] CBC W/PLT COUNT & AUTO 2022-06-21 04:58:00 Tonny Meneses CH I [facility] MAGNESIUM 2022-06-21 04:58:00 Parhizgar, [facility] CBC W/PLT COUNT & AUTO 2022-06-21 04:58:00 Tonny Meneses [facility] POCT-GLUCOSE METER 2022-06-20 21:02:00 Sintia [facility] POCT-GLUCOSE METER 2022-06-20 17:36:00 Sintia [facility] POCT-GLUCOSE METER 2022-06-20 12:43:00 Sintia [facility] POCT-GLUCOSE METER 2022-06-20 09:50:00 S[facility]ia [facility] POCT-GLUCOSE METER 2022-06-20 08:16:00 Sintia [facility] BASIC METABOLIC PANEL 2022-06-20 04:51:00 Sintia [facility] CALCIUM, IONIZED 2022-06-20 04:51:00 Sintia [facility] PHOSPHORUS 2022-06-20 04:51:00 Sintia [facility] CBC W/PLT COUNT & AUTO 2022-06-20 04:51:00 Dashawn Menesesreza [facility] MAGNESIUM 2022-06-20 04:51:00 S[facility]ia [facility] CBC W/PLT COUNT & AUTO 2022-06-20 04:51:00 Tonny Meneses [facility] POCT-GLUCOSE METER 2022-06-19 21:09:00 Sintia [facility] POCT-GLUCOSE METER 2022-06-19 17:24:00 S[facility]ia [facility] POCT-GLUCOSE METER 2022-06-19 12:16:00 [facility] BASIC METABOLIC PANEL 2022-06-19 04:37:00 Bharti Carter [facility] MAGNESIUM 2022-06-19 04:37:00 Carter, [facility] CBC W/PLT COUNT & AUTO 2022-06-19 04:37:00 [facility] CBC W/PLT COUNT & AUTO 2022-06-19 04:37:[address] [facility] ABDOMEN/PELVIS WITH IV 2022-06-18 23:25:00 Meredith Harry I [facility] CONTRAST [facility] POCT-GLUCOSE METER 2022-06-18 23:24:[address] [facility] BLOOD CULTURE 2022-06-18 21:06:00 Kamryn [facility] SARS-COV2/RT-PCR ([facility] & 2022-06-18 21:06:00 Graham Singh [facility] REF LABS) [facility] CBC W/PLT COUNT & AUTO 2022-06-18 21:06:[address] [facility] LACTIC ACID, VENOUS 2022-06-18 21:06:00 Kamryn [facility] COMPREHENSIVE METABOLIC 2022-06-18 21:06:00 Kamryn [facility] PANEL [facility] PROTHROMBIN TIME/INR 2022-06-18 21:06:00 Kamryn [facility] APTT 2022-06-18 21:06:00 Kamryn [facility] CBC W/PLT COUNT & AUTO 2022-06-18 21:06:[address] [facility] ECG 12-LEAD 2022-06-18 17:50:02 Unknown, H[facility]7 [facility] ECG 12-LEAD 2022-06-18 17:50:02 Unknown, [facility] ECG 12-LEAD 2022-06-18 17:50:02 Unknown, [facility] EKG-SCANNED 2022-06-18 00:00:00 Provider, [facility] CF RESPIRATORY CULTURE 2022-01-14 11:54:00 Amor Napier [facility] CULTURE + SMEAR 2022-01-14 11:54:00 Amor Napier [facility] (SPUTUM ONLY) [facility] SPIN/CONCENTRATION CHARGE 2022-01-14 11:54:00 Amor Napier [facility] FUNGUS CULTURE + SMEAR 2022-01-14 11:53:00 Amor Napier [facility] FUNGUS CULTURE + SMEAR 2021-12-30 16:13:00 Radha Burch [facility] CULTURE + SMEAR 2021-12-30 16:13:00 Radha Burch [facility] (SPUTUM ONLY) [facility] CF RESPIRATORY CULTURE 2021-12-30 16:13:00 Radha Burch [facility] SPIN/CONCENTRATION CHARGE 2021-12-30 16:13:00 Radha Burch [facility] CULTURE, RESPIRATORY, 2021-12-30 16:13:00 [facility] CYSTIC FIBROSIS Medicine [place] DEMO \\T\\/OR EVAL,PT 2021-12-30 16:10:09 [facility],AEROSOL DEVICE Medicine CBC W/AUTO DIFF WITH 2021-12-30 15:28:00 [facility] COMPREHENSIVE METABOLIC 2021-12-30 15:28:00 [facility] Medicine PROTIME-INR 2021-12-30 15:28:00 [facility] VITAMIN A 2021-12-30 15:28:00 [facility] VITAMIN D 25 HYDROXY 2021-12-30 15:28:00 [facility] VITAMIN E 2021-12-30 15:28:00 [facility] TESTOSTERONE 2021-12-30 15:28:00 [facility] HEMOGLOBIN A1C 2021-12-30 15:28:00 [facility] LIPID PANEL 2021-12-30 15:28:00 [facility] IGE 2021-12-30 15:28:00 [facility] TSH 2021-12-30 15:28:00 [facility] HANDICAPPED PLACARD 2021-12-30 15:17:11 [facility] FUNGAL CULTURE 2021-12-30 15:09:43 [facility] ACID FAST CULTURE 2021-12-30 15:09:43 [facility] SPIROMETRY (IN CLINIC) 2021-12-30 00:00:00 [facility] XR ABDOMEN/KUB 1 VIEW 2021-12-06 07:44:[address] [facility] CBC (HEMOGRAM ONLY) 2021-12-06 04:55:00 [facility] PANEL 2021-12-06 04:55:00 [facility] PO[facility]SE METER 2021-12-05 17:37:[address] [facility] [address] ABDOMEN/PELVIS WITH IV 2021-12-05 09:41:00 Jacob Calle [facility] SARS-COV2/RT-PCR ([facility] & 2021-12-05 08:55:00 [place] [facility] REF LABS) [facility] CBC W/PLT COUNT & AUTO 2021-12-05 07:45:00 [place] [facility] COMPREHENSIVE METABOLIC 2021-12-05 07:45:[address] [place] [facility] LIPASE 2021-12-05 07:45:00 [facility] CBC W/PLT COUNT & AUTO 2021-12-05 07:45:00 [place] [facility] XR ABDOMEN/KUB 1 VIEW 2021-11-30 09:11:00 Patricio Loja [facility] BASIC METABOLIC PANEL 2021-11-30 08:50:00 Pratik Layton [facility] CBC W/PLT COUNT & AUTO 2021-11-26 05:05:00 [facility] BASIC METABOLIC PANEL 2021-11-26 05:05:00 [facility] W/[facility]T [facility] & AUTO 2021-11-26 05:05:00 OralaxmirodneyJose ferguson [facility] ABDOMEN/PELVIS WITH IV 2021-11-25 03:19:00 Brad Galindo [facility] SARS-COV2/RT-PCR ([facility] & 2021-11-25 01:09:00 Brad Galindo [facility] REF LABS) [facility] CBC W/PLT COUNT & AUTO 2021-11-25 01:09:00 Brad Galindo [facility] COMPREHENSIVE METABOLIC 2021-11-25 01:09:00 Brad Galindo [facility] MAGNESIUM 2021-11-25 01:09:00 Brad Galindo [facility] HIGH SENSITIVITY TROPONIN 2021-11-25 01:09:00 Brad Galindo [facility] LIPASE 2021-11-25 01:09:00 Brad Galindo [facility] CBC W/PLT COUNT & AUTO 2021-11-25 01:09:00 Brad Galindo [facility] ABDOMEN/PELVIS WITH IV 2021-11-14 00:11:00 Lance Steen [facility] COMPREHENSIVE METABOLIC 2021-11-13 22:53:00 Kent [facility] LIPASE 2021-11-13 22:53:00 Kent, [facility] MAGNESIUM 2021-11-13 22:53:00 [facility] 2021-11-13 22:18:00 [facility] URINALYSIS W/ REFLEX URINE 2021-11-13 22:18:00 [facility] SARS-COV2/RT-PCR ([facility] & 2021-11-13 22:12:00 Kent, [facility] I [facility] REF LABS) Medical Center CBC W/PLT COUNT & AUTO 2021-11-13 22:12:00 Kent [facility] CBC W/PLT COUNT & AUTO 2021-11-13 22:12:00 [facility] XR ABDOMEN/KUB 1 VIEW 2021-11-13 21:30:00 [facility] PORTABLE [facility] XR CHEST 1 VIEW PORTABLE / 2021-11-13 21:30:00 [facility] BEDSIDE [facility] ECG 12-LEAD 2021-11-13 19:46:04 Unknown, [facility] ECG 12-LEAD 2021-11-13 19:46:04 Unknown, Hl7 [facility] EKG-SCANNED 2021-11-13 00:00:00 ProviderGloria [facility] PHOSPHORUS 2021-08-06 04:54:00 [facility] BASIC [facility]OLIC PANEL (7) 2021-08-06 04:54:00 Nal, [facility] MAGNESIUM 2021-08-06 04:54:00 [facility] XR ABDOMEN / KUB 1 VIEW 2021-08-05 11:57:00 Charlene Pearson [facility] PHOSPHORUS 2021-08-05 05:07:00 [facility] BASIC METABOLIC PANEL (7) 2021-08-05 05:07:00 Nal, [facility] MAGNESIUM 2021-08-05 05:07:00 Nalam, [facility] PHOSPHORUS 2021-08-04 05:33:00 Nal, [facility] BASIC METABOLIC PANEL (7) 2021-08-04 05:33:00 [facility] 2021-08-04 05:33:00 Nal, [facility] BASIC METABOLIC PANEL (7) 2021-08-03 04:23:00 Kesha I [facility] MAGNESIUM 2021-08-03 04:23:00 Kesha [facility] PHOSPHORUS 2021-08-03 04:23:00 Honey Painter [facility] SARS-COV2/RT-PCR ([facility] & 2021-08-01 21:50:00 [facility], [facility] Medical [place] [facility] ABDOMEN/PELVIS WITH IV 2021-08-01 20:44:00 Elie Youngblood [facility] LIPASE 2021-08-01 19:18:00 Puma Kent [facility] COMPREHENSIVE METABOLIC 2021-08-01 19:17:00 Elie Youngblood [facility] CBC W/PLT COUNT & AUTO 2021-08-01 19:17:00 Elie Youngblood [facility] CBC W/PLT COUNT & AUTO 2021-08-01 19:17:00 Elie Youngblood [facility] URINALYSIS 2020-10-19 04:37:00 Shannon Momin [facility] CT ABDOMEN PELVIS W 2020-10-19 04:02:25 Shannon Momin [facility] LIPASE 2020-10-19 03:17:00 Shannon Momin [facility] TROPONIN I 2020-10-19 03:17:00 Shannon Momin [facility] HEPATIC FUNCTION PANEL 2020-10-19 03:17:00 Shannon Momin [facility] ([id number]) (ALB,T.PRO,BILI Medical Branch T,BU/BC,ALT,AST,ALK PHOS) BASIC METABOLIC PANEL (NA, 2020-10-19 03:17:00 Shannon Momin [facility] K, CL, CO2, GLUCOSE, BUN, Medica l Branch CREATININE, CA) CBC WITH DIFF 2020-10-19 03:17:00 Shannon Momin [facility] COVID-19 (ID NOW RAPID 2020-10-19 03:17:00 Shannon Momin [facility]) Medical Branch HEPATIC FUNCTION PANEL 2019-12-12 20:30:00 Oksana Goddard [facility] SPIROMETRY (IN CLINIC) 2019-12-12 00:00:00 Oksana Goddard [facility] COMPREHENSIVE METABOLIC 2019-07-17 18:26:00 Oksana Goddard [facility] Medicine LIPID PANEL 2019-07-17 18:26:00 Oksana Goddard [facility] HEMOGLOBIN A1C 2019-07-17 18:26:00 [facility] TESTOSTERONE 2019-07-17 18:26:00 [facility] TSH 2019-07-17 18:26:00 Artie Goddardssica [facility] CBC W/AUTO DIFF WITH 2019-07-17 18:26:00 Rupesh [facility] Medicine PROTIME-INR 2019-07-17 18:26:[address] [facility] VITAMIN D 25 HYDROXY 2019-07-17 18:26:00 Rupesh [facility] SPIROMETRY (IN CLINIC) 2019-07-17 00:00:00 Oksana Goddard [facility] Plan of Care Planned Activity Planned Date Details Comments Source Future Scheduled 2028-09-[address] [facility] 00:00:00 malignant neoplasm Medical C enter of colon (procedure) [code = 688221033] Future Scheduled 2028-09-[address] [facility] 00:00:00 malignant neoplasm Medical C enter of colon (procedure) [code = 348089634] Future Scheduled 2028-09-[address] [facility] 00:00:00 malignant neoplasm Medical C enter of colon (procedure) [code = 492692700] Future Scheduled 2028-09-[address] [facility] 00:00:00 malignant neoplasm Medical C enter of colon (procedure) [code = 528351351] Future Scheduled 2028-09-[address] [facility] 00:00:00 malignant neoplasm Medical C enter of colon (procedure) [code = 136292201] Future Scheduled 2028-09-[address] [facility] 00:00:00 malignant neoplasm Medical C enter of colon (procedure) [code = 226660005] Future Scheduled 2028-09-[address] [facility] 00:00:00 malignant neoplasm Medical C enter of colon (procedure) [code = 485199204] Future Scheduled 2028-09-[address] [facility] 00:00:00 malignant neoplasm Medical C enter of colon (procedure) [code = 174717025] Future Scheduled 2028-09-[address] [facility] 00:00:00 malignant neoplasm Medical C enter of colon (procedure) [code = 538169871] Future Scheduled 2028-09-[address] [facility] 00:00:00 malignant neoplasm Medical C enter of colon (procedure) [code = 035745282] Future Scheduled 2028-09-[address] [facility] 00:00:00 malignant neoplasm Medical C enter of colon (procedure) [code = 424778168] Future Scheduled 2028-09-[address] [facility] 00:00:00 malignant neoplasm Medical C enter of colon (procedure) [code = 193335288] Future Scheduled 2028-09-[address] [facility] 00:00:00 malignant neoplasm Medical C enter of colon (procedure) [code = 722323998] Future Scheduled 2028-09-[address] [facility] 00:00:00 malignant neoplasm Medical C enter of colon (procedure) [code = 692485073] Future Scheduled 2028-09-[address] [facility] 00:00:00 malignant neoplasm Medical C enter of colon (procedure) [code = 606502532] Future Scheduled 2028-09-[address] [facility] 00:00:00 malignant neoplasm Medical C enter of colon (procedure) [code = 577043669] Future Scheduled 2028-09-[address] [facility] 00:00:00 malignant neoplasm Medical C enter of colon (procedure) [code = 304714472] Future Scheduled 2028-09-[address] [facility] 00:00:00 malignant neoplasm Medical C enter of colon (procedure) [code = 306023161] Future Scheduled 2028-09-[address] [facility] 00:00:00 malignant neoplasm Medical C enter of colon (procedure) [code = 015753998] Future Scheduled 2028-09-[address] [facility] 00:00:00 malignant neoplasm Medical C enter of colon (procedure) [code = 633856804] Future Scheduled 2026-12-[address] [facility] 00[facility]:00 (procedure) [code = [facility] 28801539] Future Scheduled 2026-12-[address] [facility] 00:00:00 (procedure) [code = [facility] 07043970] Future Scheduled 2026-12-[address] [facility] 00:00:00 (procedure) [code = [facility] 51510471] Future Scheduled 2026-12-[address] [facility] 00:00:00 (procedure) [code = [facility] 84674275] Future Scheduled 2026-12-[address] [facility] 00:00:00 (procedure) [code = [facility] 43471960] Future Scheduled 2026-12-[address] [facility] 00:00:00 (procedure) [code = [facility] 36090721] Future Scheduled 2026-12-[address] [facility] 00:00:00 (procedure) [code = [facility] 55654411] Future Scheduled 2026-12-[address] [facility] 00:00:00 (procedure) [code = [facility] 93282515] Future Scheduled 2026-12-[address] [facility] 00:00:00 (procedure) [code = [facility] 68437850] Future Scheduled 2026-12-[address] [facility] 00:00:00 (procedure) [code = [facility] 08975326] Future Scheduled 2023-09-[address] [...] Cessation Counseling and Screening (12+)] Future Scheduled 2022-10-[address] [facility] 00:00:00 (12+) [code = Medical Center DEPRESSION SCREENING (12+)] Future Scheduled 2022-10-[address] [facility] 00:00:00 (12+) [code = Medical Center DEPRESSION SCREENING (12+)] Future Scheduled 2022-10-[address] [facility] Test 00:00:00 (12+) [code = Medical Center DEPRESSION SCREENING (12+)] Future Scheduled 2022-10-[address] [facility] Test 00:00:00 (12+) [code = Medical Center DEPRESSION SCREENING (12+)] Future Scheduled 2022-10-[address] [facility] Test 00:00:00 (12+) [code = Medical Center DEPRESSION SCREENING (12+)] Future Scheduled 2022-10-[address] [facility] Test 00:00:00 (12+) [code = Medical Center DEPRESSION SCREENING (12+)] Future Scheduled 2022-06-10 INFLUENZA VACCINE [facility] [...] (2 - PPSV23 or PCV20)] Future Scheduled 2019-07-[address] [facility] Test 00:00:00 0-64 YRS (2 - PPSV23 Medical Center if available, else PCV20) [code = PNEUMOCOCCAL VACCINE 0-64 YRS (2 - PPSV23 if available, else PCV20)] Future Scheduled 2019-07-[address] [facility] Test 00:00:00 0-64 YRS (2 - PPSV23 Medical Center if available, else PCV20) [code = PNEUMOCOCCAL VACCINE 0-64 YRS (2 - PPSV23 if available, else PCV20)] Future Scheduled 2019-07-[address] [facility] Test 00:00:00 0-64 YRS (2 - PPSV23 Medical Center if available, else PCV20) [code = PNEUMOCOCCAL VACCINE 0-64 YRS (2 - PPSV23 if available, else PCV20)] Future Scheduled 2019-07-[address] [facility] Test 00:00:00 0-64 YRS (2 - PPSV23 Medical Center if available, else PCV20) [code = PNEUMOCOCCAL VACCINE 0-64 YRS (2 - PPSV23 if available, else PCV20)] Future Scheduled 2019-02-08 MEDICARE ANNUAL [facility] [...] FIRST YEAR if no IPPE)] Future Scheduled 2000-01-[address] [facility] 00:[facility]:00 WELLNESS (YEAR 2 or Medical Center FIRST YEAR if no IPPE) [code = MEDICARE ANNUAL WELLNESS (YEAR 2 or FIRST YEAR if no IPPE)] Future Scheduled 2000-01-[address] [facility] [...] Test 00:00:00 (#1) [code = Medical Center COVID-19 VACCINE (#1)] Future Scheduled 1976-04-19 COVID-[address] [facility] 00:00:00 (#1) [code = Medical Center COVID-19 VACCINE (#1)] Future Scheduled 1976-04-19 COVID-[address] [facility] Test 00:00:00 (#1) [code = Medical Center COVID-19 VACCINE (#1)] Future Scheduled 1976-04-19 COVID-[address] [facility] Test 00:00:00 (#1) [code = Medical Center COVID-19 VACCINE (#1)] Future Scheduled 1976-04-19 COVID-[address] [facility] Test 00:00:00 (#1) [code = Medical Center COVID-19 VACCINE (#1)] Future Scheduled 1976-04-19 COVID-[address] [facility] 00:00:00 (#1) [code = Medical Center COVID-19 VACCINE (#1)] Future Scheduled 1976-04-19 COVID-[address] [facility] 00:00:00 (#1) [code = Medical Center COVID-19 VACCINE (#1)] Future Scheduled 1976-04-19 COVID-[address] [facility] 00:00:00 (#1) [code = Medical Center COVID-19 VACCINE (#1)] Future Scheduled 1976-04-19 COVID-[address] [facility] 00:00:00 (#1) [code = Medical Center COVID-19 VACCINE (#1)] Future Scheduled 1976-04-19 COVID-[address] [facility] 00:00:00 (#1) [code = Medical Center COVID-19 VACCINE (#1)] Future Scheduled [address] [facility] 00:00:00 (combo) [code = CT Medical C enter Colonography (combo)] Future Scheduled [address] [facility] 00:00:00 malignant neoplasm Medical C enter of colon (procedure) [code = 834938018] Future Scheduled [address] [facility] 00:00:00 malignant neoplasm Medical C enter of colon (procedure) [code = 022399558] Future Scheduled 1975 Sigmoidoscopy [code [facility] 00:00:00 = Sigmoidoscopy] [facility] Future Scheduled [address] [facility] 00:00:00 (combo) [code = CT Medical C enter Colonography (combo)] Future Scheduled [address] [facility] 00:00:00 malignant neoplasm Medical C enter of colon (procedure) [code = 996088777] Future Scheduled [address] [facility] 00:00:00 malignant neoplasm Medical C enter of colon (procedure) [code = 452765307] Future Scheduled 1975 Sigmoidoscopy [code [facility] 00:00:00 = Sigmoidoscopy] Medical [facility] [facility] Future Scheduled [address] [facility] 00:00:00 (combo) [code = CT Medical C enter Colonography (combo)] Future Scheduled [address] [facility] 00:00:00 malignant neoplasm Medical C enter of colon (procedure) [code = 068181571] Future Scheduled [address] [facility] 00:00:00 malignant neoplasm Medical C enter of colon (procedure) [code = 279784918] Future Scheduled 1975 Sigmoidoscopy [code [facility] 00:00:00 = Sigmoidoscopy] [facility] Future Scheduled [address] [facility] 00:00:00 (combo) [code = CT Medical C enter Colonography (combo)] Future Scheduled [address] [facility] 00:00:00 malignant neoplasm Medical C enter of colon (procedure) [code = 162805819] Future Scheduled [address] [facility] 00:00:00 malignant neoplasm Medical C enter of colon (procedure) [code = 303879351] Future Scheduled 1975 Sigmoidoscopy [code [facility] 00:00:00 = Sigmoidoscopy] Medical [facility] ter Future Scheduled [address] [facility] 00:00:00 (combo) [code = CT Medical C enter Colonography (combo)] Future Scheduled [address] [facility] 00:00:00 malignant neoplasm Medical C enter of colon (procedure) [code = 079710205] Future Scheduled [address] [facility] 00:00:00 malignant neoplasm Medical C enter of colon (procedure) [code = 045493482] Future Scheduled 1975 Sigmoidoscopy [code [facility] 00:00:00 = Sigmoidoscopy] Medical [facility] Future Scheduled [address] [facility] 00:00:00 (combo) [code = CT Medical C enter Colonography (combo)] Future Scheduled [address] [facility] 00:00:00 malignant neoplasm Medical C enter of colon (procedure) [code = 123807233] Future Scheduled [address] [facility] 00:00:00 malignant neoplasm Medical C enter of colon (procedure) [code = 484421357] Future Scheduled 1975 Sigmoidoscopy [code [facility] 00:00:00 = Sigmoidoscopy] [facility] Future Scheduled [address] [facility] 00:00:00 (combo) [code = CT Medical C enter Colonography (combo)] Future Scheduled [address] [facility] 00:00:00 malignant neoplasm Medical C enter of colon (procedure) [code = 740820090] Future Scheduled [address] [facility] 00:00:00 malignant neoplasm Medical C enter of colon (procedure) [code = 623915524] Future Scheduled 1975 Sigmoidoscopy [code [facility] 00:00:00 = Sigmoidoscopy] Medical [facility] Future Scheduled [address] [facility] 00:00:00 (combo) [code = CT Medical C enter Colonography (combo)] Future Scheduled [address] [facility] 00:00:00 malignant neoplasm Medical C enter of colon (procedure) [code = 959440180] Future Scheduled [address] [facility] 00:00:00 malignant neoplasm Medical C enter of colon (procedure) [code = 053204331] Future Scheduled 1975 Sigmoidoscopy [code [facility] 00:00:00 = Sigmoidoscopy] [facility] Future Scheduled [address] [facility] 00:00:00 (combo) [code = CT Medical C enter Colonography (combo)] Future Scheduled [address] [facility] 00:00:00 malignant neoplasm Medical C enter of colon (procedure) [code = 626207352] Future Scheduled [address] [facility] 00:00:00 malignant neoplasm Medical C enter of colon (procedure) [code = 818422747] Future Scheduled 1975 Sigmoidoscopy [code [facility] 00:00:00 = Sigmoidoscopy] [facility] Future Scheduled [address] [facility] 00:00:00 (combo) [code = CT Medical C enter Colonography (combo)] Future Scheduled [address] [facility] 00:00:00 malignant neoplasm Medical C enter of colon (procedure) [code = 701180438] Future Scheduled [address] [facility] 00:00:00 malignant neoplasm Medical C enter of colon (procedure) [code = 526409140] Future Scheduled 1975 Sigmoidoscopy [code [facility] Test 00:00:00 = Sigmoidoscopy] Medical [facility] Future Scheduled PANCREATIC ELASTASE Ordered: [employer] Test - FECAL [code = 12/12/2019 of Medicine 67357-6] Future Scheduled TETANUS SHOT (ADULT) [place] [facility] Test [code = TETANUS SHOT of Medi cine (ADULT)] Future Scheduled HIV SCREENING [code [employer] [facility] = HIV SCREENING] of Medicine Future Scheduled MEDICARE AWV [facility] [employer] [employer] Test (Initial) [code = of Medicin e MEDICARE AWV (Initial)] Future Scheduled COLON CANCER [facility] Test SCREENING: of Medicine COLONOSCOPY [code = COLON CANCER SCREENING: COLONOSCOPY] Future Scheduled CULTURE, Ordered: [facility] Test RESPIRATORY, CYSTIC 04/16/2020 of Medic ine FIBROSIS [code = NOCPT] Future Scheduled TETANUS SHOT (ADULT) [place] [employer] Test [code = TETANUS SHOT of Medi cine (ADULT)] Future Scheduled HIV SCREENING [code [employer] [facility] = HIV SCREENING] of Medicine Future Scheduled MEDICARE AWV [facility] Test (Initial) [code = of Medicin e MEDICARE AWV (Initial)] Future Scheduled FLU VACCINE > 6 [facility]lege Test MONTHS [code = FLU of Medici ne VACCINE > 6 MONTHS] Future Scheduled COLON CANCER [facility] Test SCREENING: of Medicine COLONOSCOPY [code = COLON CANCER SCREENING: COLONOSCOPY] Future Scheduled ACID FAST CULTURE Ordered: [facility] Test [code = 543-9] 07/17/2019 of Medicine Future Scheduled CULTURE, Ordered: [facility] Test RESPIRATORY, CYSTIC 07/17/2019 of Medic ine FIBROSIS [code = NOCPT] Future Scheduled FUNGAL CULTURE [code Ordered: [facility] College Test = 601-5] 07/17/2019 of Medicine Future Scheduled GLUCOSE FASTING Ordered: [facility] [employer] Test [code = 1558-6] 07/17/2019 of Medicine Future Scheduled GLUCOSE TOLERANCE Ordered: [facility] Test 2HR [code = 23219] 07/17/2019 of Medici ne Future Scheduled [place] DEMO &/OR EVAL,PT Ordered: [facility] Test USE,AEROSOL DEVICE 07/17/2019 of Medici ne [code = 87951] Future Scheduled VITAMIN A [code = [facility] Test 2923-1] of Medicine Future Scheduled VITAMIN E [code = [facility] Test 1823-4] of Medicine Future Scheduled IGE [code = 87044-0] [facility] Test of Medicine Future Scheduled MEDICARE AWV [code = [place] [employer] [facility] MEDICARE AWV] of Medicine Future Scheduled TETANUS SHOT (ADULT) [place] [employer] Test [code = TETANUS SHOT of Medi cine (ADULT)] Future Scheduled HIV SCREENING [code [employer] [facility] = HIV SCREENING] of Medicine Future Scheduled COLON CANCER [facility] Test SCREENING: of Medicine COLONOSCOPY [code = COLON CANCER SCREENING: COLONOSCOPY] Future Scheduled DEXA BONE DENSITY 1 Occurrences [employer] [facility] SPINE AND HIP [facility] [code = 58356] 07/17/2019 until 07/17/2020 Future Appointment 2048-09-29 Radha Burch MD, [address] [employer] 00:00:00 [facility]; [address], [place] [address] Future Appointment 2048-09-29 Radha Burch MD, [address] [employer] 00:00:00 [facility]; [address], [place] [address] Future Appointment 2048-09-29 Radha Burch MD, [address] [employer] 00:00:00 [facility]; [address], [place] [address] Future Appointment 2048-09-28 Radha Burch MD, [address] [employer] 00:00:00 [facility]; [address], [place] [address] Future Appointment 2048-09-28 Radha Burch MD, [address] [employer] 00:00:00 [facility]; [address], [place] [address] Future Appointment 2048-09-28 Radha Burch MD, [address] [employer] 00:00:00 [facility]; [address], [place] [address] Encounters Start End Encounter Admission Attending Care Care Encounter Source Date/Time Date/Time Type Type Clinicians Facility Department ID 2022-11-29 2022-11-29 Outpatient EL [facility] [id number] [facility] 16:42:58 16:42:58 2022-11-29 2022-11-29 Orders Radha Burch [facility] [id number] 14:30[facility]00 14:45:00 Only [facility] 2022-11-29 2022-11-29 Orders Radha Ribera [facility] [id number] 14:30:00 14:45:00 Only [facility] 2022-11-29 2022-11-29 Outpatient RADHA BURCH [facility] [id number] [facility] 10:24:08 12:25:08 [facility] 2022-09-24 2022[facility]09-26 [facility] [id number] 03:04:00 15:42:00 Encounter Stefano Brumfield In [facility] 2022-09-24 2022-09-26 Hospital ER [facility] [id number] 03:04:00 15:42:00 Encounter Stefano Brumfield In [facility] 2022-09-24 2022-09-26 [facility] [id number] 03:04:00 15:42:00 SUNG 2022-09-06 2022-09-11 [id number] [facility] 21[facility]10[facility]00 16:18:00 [facility] 2022-09-06 2022-09-11 Hospital ER [facility], Jesus Woodard [facility] [id number] [facility] 21:10:00 16:18:00 Encounter Debi Briggs [facility] 2022-09-06 2022-09-11 Inpatient ER [facility] Emergency [id number] [facility] 21:10:00 16:18:00 [facility] 2022-09-06 2022-09-06 Outpatient [facility] [id number] [facility] 00:00:00 23:59:00 Mikayla 2022-09-06 2022-09-06 Orders [facility] [id number] 00:00:00 00:00:00 Only [facility] 2022-09-06 2022-09-06 Travel [facility] [id number] [facility] 00:[facility] 00:00:00 [facility] 2022-09-06 2022-09-06 Orders [facility] [id number] 00:00:00 00:00:00 Only [facility] 2022-09-06 2022-09-06 Travel [facility] [id number] [facility] 00:[facility] 00:00:00 [facility] 2022-07-06 2022-07-06 Outpatient [facility] [id number] [facility] 09:35:01 09:35:01 2022-07-05 2022-07-05 Orders Rupesh [facility] [id number] 14:15:00 14:30:00 Only Oksana Bourne Sofiya [facility] 2022-07-05 2022-07-05 Orders TERRANCE Goddard [facility] [id number] 14:15:00 14:30:00 Only Oksana skip Sofiya [facility] 2022-07-05 2022-07-05 Outpatient KUSUM GODDARD [facility] [id number] [facility] 10:21:37 12:09:09 OKSANA [facility] 2022-06-27 2022-06-27 Emergency [place], Arif [facility] [id number] 01:04:00 06:00:00 [facility] 2022-06-27 2022-06-27 [facility] [place] [id number] 01:04:00 06:00:00 [facility] 2022-06-27 2022-06-27 Emergency ER [place] [id number] [facility] 01:04:00 06:00:00 2022-06-27 2022-06-27 Travel [facility] [id number] [facility] 00:[facility]:00 00:00:00 [facility] 2022-06-27 2022-06-27 Travel [facility] [id number] [facility] 00:00:00 00:00:00 [facility] 2022-06-18 2022-06-22 [facility] Meredith Harry [facility] [id number] 17:52:00 19:32:00 Encounter Chaparro Farah [facility] 2022-06-18 2022-06-22 Hospital ER Meredith Harry [facility] [id number] 17:52:00 19:32:00 Encounter Chaparro Farah [facility] 2022-06-18 2022-06-22 Inpatient [facility] Emergency [id number] SLE 17:52:00 19:32:00 [facility] 2022-06-18 2022-06-18 Outpatient [facility] [id number] [facility] 00:00:00 23:59:00 [facility] 2022-06-18 2022-06-18 Orders [facility] [id number] 00:00:00 00:00:00 Only [facility] 2022-06-18 2022-06-18 Travel [facility] [id number] [facility] 00:00:00 00:00:00 [facility] 2022-06-18 2022-06-18 Orders [facility] [id number] 00:00:00 00:00:00 Only [facility] 2022-06-18 2022-06-18 Travel [facility] [id number] [facility] 00:00:00 00:00:00 [facility] 2022-01-18 2022-01-18 [facility] [id number] [facility] 17:05:19 17:05:19 2022-01-14 2022-01-14 Orders TERRANCE Napier [facility] [id number] 12:00:00 12:15:00 Only Amor Ha [facility] 2022-01-14 2022-01-14 Outpatient KUSUM NAPIER [facility] [id number] [facility] 08:35:17 09:55:24 AMOR [facility]in [facility] 2022-01-01 2022-01-01 [facility] [id number] [facility] 15:16:13 15:16:13 2021-12-302021-12-30 Orders Radha Ribera [facility] [id number] 16:15:00 16:30:00 Only [facility] 2021-12-30 2021-12-30 Outpatient RADHA BURCH [facility] [id number] [facility] 14:18:15 15:15:02 [facility] 2021-12-29 2021-12-29 Outpatient WISEMAN, [facility] [id number] [facility] 15:12:46 17:35:51 [facility] 2021-12-05 2021-12-09 Hospital ER AbdoulJacob [facility] [id number] [facility] 07:23:00 14:47:00 Encounter Honey Painter [facility] 2021-12-05 2021-12-09 Inpatient ER [facility], [facility] Emergency [id number] [facility] 07:23:00 14:47:00 [facility] 2021-11-25 2021-12-01 [facility] ER Brad Galindo [facility] [id number] [facility] 00:40:00 12:00:00 Encounter Jose Tovar [facility] 2021-11-25 2021-12-01 Inpatient ER [facility] Emergency [id number] [facility] 00:40:00 12:00:00 [facility] 2021-11-25 2021-11-25 Travel [facility] [id number] [facility] 00:00:00 00:00:00 [facility] 2021-11-13 2021-11-14 Emergency ER [facility], [facility] [id number] 19:43:00 04:21:00 [facility] 2021-11-13 2021-11-14 Emergency ER [facility] Emergency [id number] [facility] 19:43:00 04:21:00 [facility] 2021-11-13 2021-11-13 Outpatient [facility] [id number] [facility] 00:00:00 23:59:00 [facility] 2021-11-13 2021-11-13 Orders [facility] [id number] 00:00:00 00:00:00 Only [facility] 2021-11-13 2021-11-13 Travel [facility] [id number] [facility] 00:00:00 00:00:00 [facility] 2021-08-13 2021-08-13 Outpatient TERRANCE GEORGE [facility] [id number] [facility] 00:00:00 00:00:00 WILLIS 2021-08-01 2021-08-06 [facility] [id number] 18:35:00 16:55:00 Encounter Balwinder Rebolledo [facility] 2021-08-01 2021-08-06 Inpatient ER [facility] Emergency [id number] SLE 18:35:00 16:55:00 [facility] 2021-08-01 2021-08-01 Travel [facility] [id number] [facility] 00:00:00 00:00:00 [facility] 2021-04-12 2021-04-12 Outpatient [facility] [id number] [facility] 00:00:00 23:59:00 [facility] 2021-04-12 2021-04-12 Emergency ER [facility] Emergency [id number] [facility] 20:54:00 20:54:00 2021-03-26 2021-03-26 Outpatient TERRANCE SLE [facility] [id number] [facility] 00:00:00 00:00:00 2021-03-25 2021-03-25 Outpatient KUSUM GODDARD [id number] [facility] 13:59:09 15:59:50 [place] [facility] 2021-03-25 2021-03-25 Outpatient KUSUM WILSON [id number] [facility] 07:36:01 08:05:39 BALAJI [facility] 2021-02-19 2021-02-19 Emergency ER [facility] Emergency [id number] [facility] 15:12:00 15:12:00 2021-01-06 2021-01-06 Outpatient SYDNEE NAPIER [facility] [id number] [facility] 00:00:00 00:00:00 [facility] 2021-01-06 2021-01-06 Outpatient EL SYDNEE NAPIER [facility] [id number] [facility] 00:00:00 00:00:00 [facility] 2021-01-06 2021-01-06 Outpatient EL [facility] SLE [id number] [facility] 00:00:00 00:00:00 2020-10-25 2020-10-25 Emergency ER [facility] Emergency [id number] [facility] 00:15:00 00:15:00 2020-10-19 2020-10-19 Emergency ER [facility] Emergency [id number] [facility] 18:18:00 18:18:00 2020-10-18 2020-10-19 [facility] [id number] 21:04:00 01:30:00 Shannon Contreras [id number] [place] 4.2.7.2.686 Martha [id number] 2020-10-18 2020-10-19 [facility] [id number] [facility] 21:04:00 01:30:00 Shannon Contreras [id number] ity [facility] 4.2.7.2.686 [facility] [id number] 2020-10-18 2020-10-18 Emergency X [facility] ERT [id number] [facility] 21:04:00 21:04:00 SHANNON [facility] 2020-10-14 2020-10-14 Emergency ER [facility] Emergency [id number] [facility] 23:24:00 23:24:00 2020-06-07 2020-06-07 Emergency ER [facility] Emergency [id number] [facility] 18:37:00 18:37:00 2020-05-06 2020-05-06 Emergency ER [facility] Emergency [id number] SLE 20:45:00 20:45:00 2020-04-17 2020-04-17 Emergency ER [facility] Emergency [id number] [facility] 06:45:00 06:45:00 2020-04-17 2020-04-17 Emergency ER [facility] [id number] [facility] 00:00:00 00:00:00 2020-04-16 2020-04-16 Office Radha Burch [facility] [id number] [facility] 13:49:02 16:37:49 Visit AMBULATOR 350.1.13.21 College Y 0.2.7.2.686 of [id number] Medi viral 350 e 2019-12-12 2019-12-12 Office Rupesh [facility] 1.2.840.114 [id number] [facility] 12:58:52 15:16:29 Visit Oksana AMBULATOR 350.1.13.21 College Y 0.2.7.2.686 of [id number] Medi viral 350 e 2019-07-17 2019-07-17 Office Quyen [facility] 1.2.840.114 [id number] [facility] 12:29:53 14:57:09 Visit Sunjay AMBULATOR 350.1.13.21 College Y 0.2.7.2.686 of [id number] Medi viral 350 e Results Test Description Test Time Test Comments Results Result Comments Source Fungus culture + smear 2022-12-28 00:42:51 Test Item Value Reference Range Interpretation Comme nts Result (test code = 6463-4) No fungus isolated in 28 days Fungus Smear (test code = 1406) [facility] [id number] 00:42:51 Test Item Value Reference Range Interpretation Comments Result (test code = No fungus isolated in 6463-4) 28 days Fungus Smear (test No fungi seen code = 1406) [facility] [id number] 00:42:51 Test Item Value Reference Range Interpretation Comments Result (test code = No fungus isolated in 6463-4) 28 days Fungus Smear (test No fungi seen code = 1406) [facility] [id number] 00:42:51 Test Item Value Reference Range Interpretation Comments Result (test code = No fungus isolated in 6463-4) 28 days Fungus Smear (test No fungi seen code = 1406) [facility] [id number] 00:42:51 Test Item Value Reference Range Interpretation Comments CULTURE (BEAKER) (test No fungus isolated in code = 1095) 28 days FUNGUS SMEAR (BEAKER) No fungi seen (test code = 1406) CF RESPIRATORY [id number] 12:41:41 Test Item Value Reference Interpretation Comments Range CULTURE (BEAKER) ENTEROBACTER A <1+ Enterob acter (test code = 1095) CLOACAE cloacae Amikacin (test code = S 1) Aztreonam (test code S = 32) Cefepime [...] Sulfamethoxazole (test code = 47) CULTURE (BEAKER) PSEUDOMONAS A <1+ Pseudom onas (test code = 1095) AERUGINOSA aeruginos amucoid colony type Amikacin (test code = See_Comment S [Auto mated message] 1) The system [employer] generated this result transmit joann reference range : Susceptible 0-1 6 , Resistant <0 or >16 . The reference range was not u sed to interpret th is result as normal/abnormal . Aztreonam (test code See_Comment S [Autom ated message] = 32) The system [employer] generated this result transmit joann reference range : Susceptible 0-8 , Resistant <0 or >8 . The reference r taurus was not used to interpret this result as normal/abnormal . Cefepime (test code = See_Comment R [Auto mated message] 51) The system [employer] generated this result transmit joann reference range : Susceptible 0-8 , Resistant <0 or >8 . The reference r taurus was not used to interpret this result as normal/abnormal . Ceftazidime (test See_Comment S [Automate d message] code = 27) The system [facility] [employer] generated this result transmit joann reference range : Susceptible 0-8 , Resistant <0 or >8 . The reference r taurus was not used to interpret this result as normal/abnormal . Ciprofloxacin (test See_Comment S [Automa joann message] code = 7) The system [facility] [employer] generated this result transmit joann reference range : Susceptible 0-0 .5 , Resistant <0 or >.5 . The reference range was not u sed to interpret th is result as normal/abnormal . Gentamicin (test code See_Comment S [Auto mated message] = 18) The system [facility] [employer] generated this result transmit joann reference range : Susceptible 0-4 , Resistant <0 or >4 . The reference r taurus was not used to interpret this result as normal/abnormal . Levofloxacin (test See_Comment S [Automat ed message] code = 22) The system [employer] generated this result transmit joann reference range : Susceptible 0-1 , Resistant <0 or >1 . The reference r taurus was not used to interpret this result as normal/abnormal . Meropenem (test code See_Comment S [Autom ated message] = 34) The system [employer] generated this result transmit joann reference range : Susceptible 0-2 , Resistant <0 or >2 . The reference r taurus was not used to interpret this result as normal/abnormal . Piperacillin (test See_Comment S [Automat ed message] code = 24) The system [employer] generated this result transmit joann reference range [...] [Auto mated message] = 25) The system [facility] [employer] generated this result transmit joann reference range : Susceptible 0-4 , Resistant <0 or >4 . The reference r taurus was not used to interpret this result as normal/abnormal . CULTURE (BEAKER) ENTEROBACTER A <1+ Enterob acter (test code = 1095) JC harper Amikacin (test code = S 1) Aztreonam (test code S = 32) Cefepime [...] (BEAKER) ESCHERICHIA COLI A <1+ Esc herichia coli (test code = 1095) Amikacin (test code = mcg/mL S 1) Ampicillin + mcg/mL S Sulbactam (test code = 6) Aztreonam (test code mcg/mL S = 32) Cefepime (test code = mcg/mL S 51) Cefoxitin (test code mcg/mL S = 68) Ceftazidime (test mcg/mL S code = 27) Ceftriaxone (test mcg/mL S code = 52) Ertapenem (test code mcg/mL S = 38) Gentamicin (test code mcg/mL S = 18) Levofloxacin (test mcg/mL R code = 22) Meropenem (test code mcg/mL S = 34) Piperacillin + mcg/mL S Tazobactam (test code = 29) Tetracycline (test mcg/mL S code = 2) Tobramycin (test code mcg/mL S = 25) Trimethoprim + mcg/mL S Sulfamethoxazole (test code = 47) 3+ Normal respiratory maria del carmen [facility] [id number] 13:00:47 Test Item Value Reference Range Interpretation Comments Concentration charged (test code = Done 2657) [facility] [id number] 13:00:47 Test Item Value Reference Range Interpretation Comments Concentration charged (test code = Done 2657) [facility] [id number] 13:00:47 Test Item Value Reference Range Interpretation Comments Concentration charged (test code = Done 2657) [facility] [id number] 13:00:47 Test Item Value Reference Range Interpretation Comments Concentration charged (test code = Done 2657) [facility] [id number] 13:00:47 Test Item Value Reference Range Interpretation Comments CONCENTRATION CHARGED (BEAKER) (test Done code = 2657) RAD, ABDOMEN/KUB, 1 VIEW [id number] 09:41:00Reason for exam:->constipation [facility] 1975 Sex: MFINAL REPORT Abdomen x-ray Clinical Diagnosis: ConstipationComparison: 09/25/2022Views: Two supine views of abdomen obtained Findings/impression:There is persistent gaseous distention of loops bowel throughout the abdomen, similar to the prior examination. Findings can be seen in the setting of ileus versus distal bowel obstruction. No intraperitoneal free air is appreciated on this supine view examination. Signed: Donato Varelaeport Verified Date/Time: 09/26/2022 09:41:17 BASIC METABOLIC [id number] 08:14:57 Test Item Value Reference Range Interpretation Comments SODIUM (BEAKER) 139 meq/L 136-145 (test code = 381) POTASSIUM 4.5 meq/L 3.5-5.1 Specimen slight ly (BEAKER) (test hemolyzed code = 379) CHLORIDE (BEAKER) 109 meq/L 98-107 H (test code = 382) CO2 (BEAKER) 21 meq/L 22-29 L (test code = 355) BLOOD UREA 5 mg/dL 7-21 L NITROGEN (BEAKER) (test code = 354) CREATININE 1.17 mg/dL 0.57-1.25 Specimen slight ly (BEAKER) (test hemolyzed code = 358) GLUCOSE RANDOM 81 mg/dL 70-105 (BEAKER) (test code = 652) CALCIUM (BEAKER) 8.9 mg/dL 8.4-10.2 (test code = 697) EGFR (BEAKER) 79 Interpretatio n of eGFR (test code = mL/min/1.73 values Stage De scription 1092) sq m Result G1 Katy l or high >=90 G2 Mildly decreased 60-89 G3a Mildl y to moderately 45-5 9 G3b Moderately to s everely 30-44 G4 Severl y decreased 15-29 G5 Kidney failure <15Reported eGF R is based on the CKD-EPI 2021 equation that d oes not use a race coefficientEsti mated GFR is not as accur ate as Creatinine Collette pablo in predicting glom erular filtration rate . Estimated GFR is not appl icable for dialysis patien ts Child Protective Services Specialist ID - CHAMP [id number] 08:14:56 Test Item Value Reference Range Interpretation Comments MAGNESIUM (BEAKER) 1.7 mg/dL 1.6-2.6 Specimen slightly (test code = 627) hemolyzed Child Protective Services Specialist ID - CHAMP WRAD, ABDOMEN/KUB, 1 VIEW [id number] 14:51:00Reason for exam:->constipation [facility] 1975 Sex: MFINAL REPORT TECHNIQUE: RAD, ABDOMEN/KUB, 1 VIEW AP INDICATION: constipation. COMPARISON: 09/09/2022 FINDINGS: 1. Persistent gaseous distention of large bowel without significant interval change. Supine radiographs are insensitive for detection of free intraperitoneal air. IMPRESSION:Persisting colonic ileus, not significant change. Continued radiographic follow-up is suggested. Stool burden is low. Signed: John Sorenson MDReport Verified Date/Time: 09/25/2022 14:51:14 SARS-CoV2/RT-PCR (Asymptomatic ONLY)2022-09-25 14:50:31 Test Item Value Reference Interpretation Comments Range SARS-COV2/RT-PCR Negative Negative The SARS-Co V-2 (test code = target nucleic 77257-8) acids are not detected in thi s [...] revoked sooner. Fact Sheet for Healthcare Providers: https://www.[employer]/Documents/Xp ert%20Xpress%20SAR S%20CoV-2/Fact%20S heets/302-3802%20S ARS-COV-2%20HEALTH CARE%20PROVIDERS%2 0FACT%20SHEET.pdf Fact Sheet for Healthcare Patients: https://www.[employer]/Documents/Xp ert%20Xpress%20SAR S%20CoV-2/Fact%20S heets/302-3801%20S ARS-COV-2%20PATIEN T%20FACT%20SHEET.p df Lab Interpretation Normal (test code = 78190-4) [facility] (Asymptomatic ONLY)2022-09-25 14:50:31 Test Item Value Reference Interpretation Comments Range SARS-COV2/RT-PCR Negative Negative The SARS-Co V-2 (test code = target nucleic 63243-1) acids are not detected in thi s [...] revoked sooner. Fact Sheet for Healthcare Providers: https://www.[employer]/Documents/Xp ert%20Xpress%20SAR S%20CoV-2/Fact%20S heets/302-3802%20S ARS-COV-2%20HEALTH CARE%20PROVIDERS%2 0FACT%20SHEET.pdf Fact Sheet for Healthcare Patients: https://www.[employer]/Documents/Xp ert%20Xpress%20SAR S%20CoV-2/Fact%20S heets/302-3801%20S ARS-COV-2%20PATIEN T%20FACT%20SHEET.p df Lab Interpretation Normal (test code = 70301-5) [facility] HospitalARS-CoV2/RT-PCR (Asymptomatic ONLY)2022-09-25 14:50:31 Test Item Value Reference Interpretation Comments Range SARS-COV2/RT-PCR Negative Negative The SARS-Co V-2 (test code = target nucleic 34354-6) acids are not detected in thi s [...] revoked sooner. Fact Sheet for Healthcare Providers: https://www.[employer]/Documents/Xp ert%20Xpress%20SAR S%20CoV-2/Fact%20S heets/302-3802%20S ARS-COV-2%20HEALTH CARE%20PROVIDERS%2 0FACT%20SHEET.pdf Fact Sheet for Healthcare Patients: https://www.[employer]/Documents/Xp ert%20Xpress%20SAR S%20CoV-2/Fact%20S heets/302-3801%20S ARS-COV-2%20PATIEN T%20FACT%20SHEET.p df Lab Interpretation Normal (test code = 74356-1) [facility] HospitalARS-CoV2/RT-PCR (Asymptomatic ONLY)2022-09-25 14:50:31 Test Item Value Reference Interpretation Comments Range SARS-COV2/RT-PCR Negative Negative The SARS-Co V-2 (test code = target nucleic 50116-3) acids are not detected in thi s [...] SARS-CoV-2 in a nasopharyngeal swab specimen collec jaonn from individual s suspected of COVID-19 by [...] revoked sooner. Fact Sheet for Healthcare Providers: https://www.[employer]/Documents/Xp ert%20Xpress%20SAR S%20CoV-2/Fact%20S heets/302-3802%20S ARS-COV-2%20HEALTH CARE%20PROVIDERS%2 0FACT%20SHEET.pdf Fact Sheet for Healthcare Patients: https://www.[employer]/Documents/Xp ert%20Xpress%20SAR S%20CoV-2/Fact%20S heets/302-3801%20S ARS-COV-2%20PATIEN T%20FACT%20SHEET.p df Lab Interpretation Normal (test code = 61429-7) [facility] HospitalARS-CoV2/RT-PCR (Asymptomatic ONLY)2022-09-25 14:50:31 Test Item Value Reference Interpretation Comments Range SARS-COV2/RT-PCR Negative Negative The SARS-Co V-2 (test code = target nucleic 94377-4) acids are not detected in thi s [...] revoked sooner. Fact Sheet for Healthcare Providers: https://www.[employer]/Documents/Xp ert%20Xpress%20SAR S%20CoV-2/Fact%20S heets/302-3802%20S ARS-COV-2%20HEALTH CARE%20PROVIDERS%2 0FACT%20SHEET.pdf Fact Sheet for Healthcare Patients: https://www.[employer]/Documents/Xp ert%20Xpress%20SAR S%20CoV-2/Fact%20S heets/302-3801%20S ARS-COV-2%20PATIEN T%20FACT%20SHEET.p df Lab Interpretation Normal (test code = 79526-2) [facility] HospitalARS-CoV2/RT-PCR (Asymptomatic ONLY)2022-09-25 14:50:31 Test Item Value Reference Interpretation Comments Range SARS-COV2/RT-PCR Negative Negative The SARS-Co V-2 (test code = target nucleic 28169-3) acids are not detected in thi s [...] om SARS-CoV-2 in a [facility]opharyngeal swab [facility] s suspected of COVID-19 by [...] revoked sooner. Fact Sheet for Healthcare Providers: https://www.[employer]/Documents/Xp ert%20Xpress%20SAR S%20CoV-2/Fact%20S heets/302-3802%20S ARS-COV-2%20HEALTH CARE%20PROVIDERS%2 0FACT%20SHEET.pdf Fact Sheet for Healthcare Patients: https://www.[employer]/Documents/Xp ert%20Xpress%20SAR S%20CoV-2/Fact%20S heets/302-3801%20S ARS-COV-2%20PATIEN T%20FACT%20SHEET.p df Lab Interpretation Normal (test code = 48130-9) [facility] HospitalARS-CoV2/RT-PCR (Asymptomatic ONLY)2022-09-25 14:50:31 Test Item Value Reference Interpretation Comments Range SARS-COV2/RT-PCR Negative Negative The SARS-Co V-2 (test code = target nucleic 12124-5) acids are not detected in thi s [...] revoked sooner. Fact Sheet for Healthcare Providers: https://www.[employer]/Documents/Xp ert%20Xpress%20SAR S%20CoV-2/Fact%20S heets/302-3802%20S ARS-COV-2%20HEALTH CARE%20PROVIDERS%2 0FACT%20SHEET.pdf Fact Sheet for Healthcare Patients: https://www.[employer]/Documents/Xp ert%20Xpress%20SAR S%20CoV-2/Fact%20S heets/302-3801%20S ARS-COV-2%20PATIEN T%20FACT%20SHEET.p df Lab Interpretation Normal (test code = 40468-2) [facility] HospitalARS-COV2/RT-PCR ([facility])2022-09-25 14:50:31 Test Item Value Reference Range Interpretation Comments SARS-COV2/RT-PCR Negative Negative The SARS-Co V-2 target (test code = nucleic acids a re not [id number]) detected in thi s specimen. Negative result [...] revoked sooner. Fact Sheet for Healthcare Providers: https://www.[employer] m/Documents/Xpert%20Xpress%20SARS%20CoV-2/Fact%20Sheets/302-3802%22LDXR-THY-9%20 HEALTHCARE%20PROVIDERS%20FACT%20SHEET.pdf Fact Sheet for Healthcare Patients: https://www.[employer]/Documents/Xpert%20Xp ress%20SARS%20CoV-2/Fact%20Sheets/3023801%52PPTA-UFF-5%20PATIENT%20FACT%20SHEET .pdfRAD, CHEST, 1 VIEW, NON [id number] 11:52:00Reason for exam:->CF patientShould this be performed at the bedside?->Yes [facility] 1975 Sex: MFINAL REPORT INDICATION: CF patient COMPARISON: None TECHNIQUE: Single frontal view of the chest. FINDINGS: Lungs and pleura: Clear lungs. No effusion.Heart and mediastinum: Normal heart size. Unremarkable mediastinal contours.Osseous structures: No acute abnormality.Other: None. IMPRESSION: No acute intrathoracic abnormality. Signed: Esperanza Duque MDReport Verified Date/Time: 09/24/2022 11:52:00 Reading Location: [address] Reading Room HEPATIC FUNCTION [id number] 05:00:50 Test Item Value Reference Range Interpretation [...] (test code = 39 U/L 6-55 347) Child Protective Services Specialist ID - MARCOBASIC METABOLIC [id number] 05:00:49 Test Item Value Reference Range Interpretation [...] De scription 1092) sq m Result G1 Katy l or high >=90 G2 Mildly decreased 60-89 G3a Mildl y to moderately 45-5 9 G3b Moderately to s everely 30-44 G4 Severl y decreased 15-29 G5 Kidney failure <15Reported eGF R is based on the CKD-EPI 1 equation that d oes not use a race coefficientEsti mated GFR is not as accur ate as Creatinine Collette samy in predicting glom erular filtration rate . Estimated GFR is not appl icable for dialysis patien ts Child Protective Services Specialist ID - [id number] 05:00:49 Test Item Value Reference Range Interpretation Comments MAGNESIUM (BEAKER) (test code = 1.6 mg/dL 1.6-2.6 627) Child Protective Services Specialist ID - [id number] 05:00:49 Test Item Value Reference Range Interpretation Comments PHOSPHORUS (BEAKER) (test code = 3.4 mg/dL 2.3-4.7 604) Child Protective Services Specialist ID - MARCOPROTHROMBIN TIME/[id number] 04:40:50 Test Item Value Reference Range Interpretation Comments PROTIME (BEAKER) 15.6 seconds 11.9-14.2 H (test code = 759) INR (BEAKER) (test 1.26 See_Comment [Automat ed message] code = 370) The system [employer] generated this result transmitted ref erence range: <=5.90. The reference range was not used to int erpret this result as normal/abnormal . RECOMMENDED COUMADIN/WARFARIN INR THERAPY RANGESSTANDARD DOSE: 2.0 - 3.0 Includes: PROPHYLAXIS for venous thrombosis, systemic embolization; TREATMENT for venous thrombosis and/or pulmonary embolus.HIGH RISK: Target INR is 2.5-3.5 for patients with mechanical heart valves.CBC W/PLT COUNT & AUTO [id number] 04:31:28 Test Item Value Reference Range Interpretation [...] PERCENT (BEAKER) (test code = 2801) BLOOD [id number] 19:01:42 Test Item Value Reference Range Interpretation Comments CULTURE (BEAKER) (test No growth in 5 days code = 1095) BLOOD [id number] 19:01:42 Test Item Value Reference Range Interpretation Comments CULTURE (BEAKER) (test No growth in 5 days code = 1095) HEPATIC FUNCTION [id number] 06:14:49 Test Item Value Reference Range Interpretation [...] (test code = 17 U/L 6-55 347) Child Protective Services Specialist ID - [id number] 06:14:48 Test Item Value Reference Range Interpretation Comments MAGNESIUM (BEAKER) (test code = 1.6 mg/dL 1.6-2.6 627) Child Protective Services Specialist ID - [id number] 06:14:48 Test Item Value Reference Range Interpretation Comments PHOSPHORUS (BEAKER) (test code = 3.2 mg/dL 2.3-4.7 604) Child Protective Services Specialist ID - BSBASIC METABOLIC [id number] 06:14:47 Test Item Value Reference Range Interpretation [...] De scription 1092) sq m Result G1 Katy l or high >=90 G2 Mildly decreased 60-89 G3a Mildl y to moderately 45-5 9 G3b Moderately to s everely 30-44 G4 Severl y decreased 15-29 G5 Kidney failure <15Reported eGF R is based on the CKD-EPI 2021 equation that d oes not use a race coefficientEsti mated GFR is not as accur ate as Creatinine Collette pablo in predicting glom erular filtration rate . Estimated GFR is not appl icable for dialysis patien ts Child Protective Services Specialist ID - BSCBC W/PLT COUNT & AUTO [id number] 05:41:16 Test Item Value Reference Range Interpretation [...] (BEAKER) (test code = 2801) VANCOMYCIN LEVEL, [id number] 08:51:33 Test Item Value Reference Range Interpretation Comments VANCOMYCIN TROUGH (BEAKER) (test 11.3 ug/mL 10.0-20.0 code = 522) Child Protective Services Specialist ID - [id number] 04:31:45 Test Item Value Reference Range Interpretation Comments MAGNESIUM (BEAKER) (test code = 1.6 mg/dL 1.6-2.6 627) Child Protective Services Specialist ID - NEIL [id number] 04:31:45 Test Item Value Reference Range Interpretation Comments PHOSPHORUS (BEAKER) (test code = 3.7 mg/dL 2.3-4.7 604) Child Protective Services Specialist ID - NEIL MHEPATIC FUNCTION [id number] 04:31:45 Test Item Value Reference Range Interpretation [...] (test code = 16 U/L 6-55 347) Child Protective Services Specialist ID - NEIL MBASIC METABOLIC [id number] 04:31:44 Test Item Value Reference Range Interpretation [...] De scription 1092) sq m Result G1 Katy l or high >=90 G2 Mildly decreased [...] not appl icable for dialysis patien ts Child Protective Services Specialist ID - NEIL MCBC W/PLT COUNT & AUTO [id number] 03:52:06 Test Item Value Reference Range Interpretation [...] (BEAKER) (test code = 2801) U/S, ABDOMINAL, [id number] 21:12:00Abdomen limited area? Add comment if clarification is needed.->GallbladderReason for exam:->fever, abdominal pain, increased T. bili with c/f cholangitis. US to r/o CBD dilatation 2/2 choledocholithiasisShould this be performed at the bedside?->Yes [facility] 1975 Sex: MFINAL [...] evidence of acute abnormality. Signed: Cyn Calle Verified Date/Time: 09/09/2022 21:12:42 RAD, ABDOMEN/KUB, 1 VIEW [id number] 15:34:00Reason for exam:->f/u abdominal pain/colonic distension [facility] 1975 Sex: [...] representing ileus or large bowel obstruction. Signed: Lupillo Becerra Verified Date/Time: 09/09/2022 15:34:07 Reading Location: [address] Reading Room Respiratory Panel [id number] 15:22:28 Test Item Value Reference Interpretation Comments Range Human Metapneumovirus Not detected Not detected, (test code = 53729-2) Equivocal Rhinovirus (test code Not detected Not detected, = 45293-7) Equivocal INFLUENZA A (NO SUBTYPE) (test code = 96703-5) Influenza A subtype H1 (test code = 54043-1) Influenza A Subtype H3 (test code = 52628-0) Influenza A Subtype Detected Not detected, A Droplet H1-2009 (test code = [place]. [address]-8) Oseltamivir is the drug of choice. Conside r stopping antibiotics. Influenza B (test Not detected Not detected, code = 37000-1) Equivocal Respiratory Syncytial Not detected Not detected, Virus (test code = Equivocal 54244-8) Parainfluenza Virus 1 Not detected Not detected, (test code = 06870-1) Equivocal Parainfluenza Virus 2 Not detected Not detected, (test code = 13026-8) Equivocal Parainfluenza virus 3 Not detected Not detected, (test code = 30528-0) Equivocal Parainfluenza Virus 4 Not detected Not detected, (test code = 49684-5) Equivocal Adenovirus (test code Not detected Not detected, = 74113-2) Equivocal Coronavirus 229E Not detected Not detected, (test code = 85976-7) Equivocal Coronavirus HKU1 Not detected Not detected, (test code = 22649-1) Equivocal Coronavirus NL63 Not detected Not detected, (test code = 58803-7) Equivocal Coronavirus OC43 Not detected Not detected, (test code = 39979-8) Equivocal Bordetella Pertussis Not detected Not detected, (test code = 10593-1) Equivocal Chlamydophila Not detected Not detected, Pneumoniae (test code Equivocal = 61238-9) Mycoplasma Pneumoniae Not detected Not detected, (test code = 37472-7) Equivocal Severe Acute Not detected Not detected, Tmceuddcinn-QxD-2 Equivocal (test code = 42894-1) Bordtella Not detected Not detected, Parapertussis (test Equivocal code = 80740-0) SHANA (test code = SHANA) Other viruses and bacteria not targeted by this PCR panel cannot be excluded; therefore clinical correlation and follow up of serology, culture results, and other molecular studies is required. The results are not intended to be used as the sole means for clinical diagnosis or patient management decisions. This sample was tested at the [facility] using the [employer] Respiratory Panel. It is FDA cleared and has been verified and approved by the [facility] for clinical use on nasopharyngeal swab specimens. The performance of the [employer]Array RP has not been established in individuals who received influenza vaccine. Recent administration of a nasal influenza vaccine may cause false positive results for Influenza A and/orInfluenza B. Lab Interpretation Abnormal (test code = 23317-9) [facility] [id number] 15:22:28 Test Item Value Reference Interpretation Comments Range Human Metapneumovirus Not detected Not detected, (test code = 18491-9) Equivocal Rhinovirus (test code Not detected Not detected, = 91853-8) Equivocal INFLUENZA A (NO SUBTYPE) (test code = 44103-6) Influenza A subtype H1 (test code = 83005-6) Influenza A Subtype H3 (test code = 14834-6) Influenza A Subtype Detected Not detected, A Droplet H1-2008 (test code = Equiv[place]. 26400-0) Oseltamivir is the drug of choice. Conside r stopping antibiotics. Influenza B (test Not detected Not detected, code = 17033-4) Equivocal Respiratory Syncytial Not detected Not detected, Virus (test code = Equivocal 23969-9) Parainfluenza Virus 1 Not detected Not detected, (test code = 26869-9) Equivocal Parainfluenza Virus 2 Not detected Not detected, (test code = 91845-7) Equivocal Parainfluenza virus 3 Not detected Not detected, (test code = 60916-8) Equivocal Parainfluenza Virus 4 Not detected Not detected, (test code = 80492-4) Equivocal Adenovirus (test code Not detected Not detected, = 68866-0) Equivocal Coronavirus 229E Not detected Not detected, (test code = 42917-2) Equivocal Coronavirus HKU1 Not detected Not detected, (test code = 50894-0) Equivocal Coronavirus NL63 Not detected Not detected, (test code = 83873-1) Equivocal Coronavirus OC43 Not detected Not detected, (test code = 03087-2) Equivocal Bordetella Pertussis Not detected Not detected, (test code = 43279-4) Equivocal Chlamydophila Not detected Not detected, Pneumoniae (test code Equivocal = 77960-6) Mycoplasma Pneumoniae Not detected Not detected, (test code = 33304-9) Equivocal Severe Acute Not detected Not detected, Wxdmhtpegyt-WdW-7 Equivocal (test code = 41742-6) Bordtella Not detected Not detected, Parapertussis (test Equivocal code = 97800-4) SHANA (test code = SHANA) Other viruses and bacteria not targeted by this PCR panel cannot be excluded; therefore clinical correlation and follow up of serology, culture results, and other molecular studies is required. The results are not intended to be used as the sole means for clinical diagnosis or patient management decisions. This sample was tested at the [facility] using the [employer]ocavoArray Respiratory Panel. It is FDA cleared and has been verified and approved by the [facility] for clinical use on nasopharyngeal swab specimens. The performance of the FilmArray RP has not been established in individuals who received influenza vaccine. Recent administration of a nasal influenza vaccine may cause false positive results for Influenza A and/orInfluenza B. Lab Interpretation Abnormal (test code = 74840-6) [facility] [id number] 15:22:28 Test Item Value Reference Interpretation Comments Range Human Metapneumovirus Not detected Not detected, (test code = 98016-6) Equivocal Rhinovirus (test code Not detected Not detected, = 13371-7) Equivocal INFLUENZA A (NO SUBTYPE) (test code = 87806-5) Influenza A subtype H1 (test code = 51782-0) Influenza A Subtype H3 (test code = 84816-3) Influenza A Subtype Detected Not detected, A Droplet H1-2009 (test code = [place]. 46774-2) Oseltamivir is the drug of choice. Conside r stopping antibiotics. Influenza B (test Not detected Not detected, code = 29138-3) Equivocal Respiratory Syncytial Not detected Not detected, Virus (test code = Equivocal 89223-4) Parainfluenza Virus 1 Not detected Not detected, (test code = 63335-6) Equivocal Parainfluenza Virus 2 Not detected Not detected, (test code = 32911-3) Equivocal Parainfluenza virus 3 Not detected Not detected, (test code = 16346-1) Equivocal Parainfluenza Virus 4 Not detected Not detected, (test code = 94587-1) Equivocal Adenovirus (test code Not detected Not detected, = 33838-3) Equivocal Coronavirus 229E Not detected Not detected, (test code = 56320-9) Equivocal Coronavirus HKU1 Not detected Not detected, (test code = 51247-6) Equivocal Coronavirus NL63 Not detected Not detected, (test code = 09190-2) Equivocal Coronavirus OC43 Not detected Not detected, (test code = 05963-3) Equivocal Bordetella Pertussis Not detected Not detected, (test code = 90619-6) Equivocal Chlamydophila Not detected Not detected, Pneumoniae (test code Equivocal = 34482-5) Mycoplasma Pneumoniae Not detected Not detected, (test code = 82717-9) Equivocal Severe Acute Not detected Not detected, Xflvclvjmdh-BrC-2 Equivocal (test code = 20335-9) Bordtella Not detected Not detected, Parapertussis (test Equivocal code = 62928-0) SHANA (test code = SHANA) Other viruses and bacteria not targeted by this PCR panel cannot be excluded; therefore clinical correlation and follow up of serology, culture results, and other molecular studies is required. The results are not intended to be used as the sole means for clinical diagnosis or patient management decisions. This sample was tested at the [facility] using the MocavoArray Respiratory Panel. It is FDA cleared and has been verified and approved by the [facility] for clinical use on nasopharyngeal swab specimens. The performance of the FilmArray RP has not been established in individuals who received influenza vaccine. Recent administration of a nasal influenza vaccine may cause false positive results for Influenza A and/orInfluenza B. Lab Interpretation Abnormal (test code = 68979-1) [facility] [id number] 15:22:28 Test Item Value Reference Interpretation Comments Range Human Metapneumovirus Not detected Not detected, (test code = 51984-7) Equivocal Rhinovirus (test code Not detected Not detected, = 43840-5) Equivocal INFLUENZA A (NO SUBTYPE) (test code = 21472-7) Influenza A subtype H1 (test code = 02233-5) Influenza A Subtype H3 (test code = 34734-2) Influenza A Subtype Detected Not detected, A Droplet H1-2009 (test code = Equivocal [place]. 11401-9) Oseltamivir is the drug of choice. Conside r stopping antibiotics. Influenza B (test Not detected Not detected, code = 58570-6) Equivocal Respiratory Syncytial Not detected Not detected, Virus (test code = Equivocal 05623-1) Parainfluenza Virus 1 Not detected Not detected, (test code = 39949-0) Equivocal Parainfluenza Virus 2 Not detected Not detected, (test code = 51113-6) Equivocal Parainfluenza virus 3 Not detected Not detected, (test code = 14877-2) Equivocal Parainfluenza Virus 4 Not detected Not detected, (test code = 61042-3) Equivocal Adenovirus (test code Not detected Not detected, = 96457-3) Equivocal Coronavirus 229E Not detected Not detected, (test code = 96207-9) Equivocal Coronavirus HKU1 Not detected Not detected, (test code = 48578-2) Equivocal Coronavirus NL63 Not detected Not detected, (test code = 71021-5) Equivocal Coronavirus OC43 Not detected Not detected, (test code = 56885-9) Equivocal Bordetella Pertussis Not detected Not detected, (test code = 87503-4) Equivocal Chlamydophila Not detected Not detected, Pneumoniae (test code Equivocal = 35867-6) Mycoplasma Pneumoniae Not detected Not detected, (test code = 73491-0) Equivocal Severe Acute Not detected Not detected, Cbindjreahm-GvH-0 Equivocal (test code = 17785-1) Bordtella Not detected Not detected, Parapertussis (test Equivocal code = 89476-6) SHANA (test code = SHANA) Other viruses and bacteria not targeted by this PCR panel cannot be excluded; therefore clinical correlation and follow up of serology, culture results, and other molecular studies is required. The results are not intended to be used as the sole means for clinical diagnosis or patient management decisions. This sample was tested at the [facility] using the MocavoArray Respiratory Panel. It is FDA cleared and has been verified and approved by the [facility] for clinical use on nasopharyngeal swab specimens. The performance of the FilmArray RP has not been established in individuals who received influenza vaccine. Recent administration of a nasal influenza vaccine may cause false positive results for Influenza A and/orInfluenza B. Lab Interpretation Abnormal (test code = 66312-1) [facility] [id number] 15:22:28 Test Item Value Reference Interpretation Comments Range Human Metapneumovirus Not detected Not detected, (test code = 13499-4) Equivocal Rhinovirus (test code Not detected Not detected, = 33945-5) Equivocal INFLUENZA A (NO SUBTYPE) (test code = 38900-4) Influenza A subtype H1 (test code = 39709-6) Influenza A Subtype H3 (test code = 57864-7) Influenza A Subtype Detected Not detected, A Droplet H1-2009 (test code = Equiv[place]. 21202-3) Oseltamivir is the drug of choice. Conside r stopping antibiotics. Influenza B (test Not detected Not detected, code = 03223-0) Equivocal Respiratory Syncytial Not detected Not detected, Virus (test code = Equivocal 93556-5) Parainfluenza Virus 1 Not detected Not detected, (test code = 93158-2) Equivocal Parainfluenza Virus 2 Not detected Not detected, (test code = 74155-1) Equivocal Parainfluenza virus 3 Not detected Not detected, (test code = 90279-0) Equivocal Parainfluenza Virus 4 Not detected Not detected, (test code = 86811-5) Equivocal Adenovirus (test code Not detected Not detected, = 39752-3) Equivocal Coronavirus 229E Not detected Not detected, (test code = 13449-4) Equivocal Coronavirus HKU1 Not detected Not detected, (test code = 52322-8) Equivocal Coronavirus NL63 Not detected Not detected, (test code = 77324-9) Equivocal Coronavirus OC43 Not detected Not detected, (test code = 20460-3) Equivocal Bordetella Pertussis Not detected Not detected, (test code = 70979-9) Equivocal Chlamydophila Not detected Not detected, Pneumoniae (test code Equivocal = 24195-6) Mycoplasma Pneumoniae Not detected Not detected, (test code = 26205-4) Equivocal Severe Acute Not detected Not detected, Fwjfimupnom-ZkQ-0 Equivocal (test code = 22138-0) Bordtella Not detected Not detected, Parapertussis (test Equivocal code = 57734-6) SHANA (test code = SHANA) Other viruses and bacteria not targeted by this PCR panel cannot be excluded; therefore clinical correlation and follow up of serology, culture results, and other molecular studies is required. The results are not intended to be used as the sole means for clinical diagnosis or patient management decisions. This sample was tested at the [facility] using the [employer] FilmArray Respiratory Panel. It is FDA cleared and has been verified and approved by the [facility] for clinical use on nasopharyngeal swab specimens. The performance of the FilmArray RP has not been established in individuals who received influenza vaccine. Recent administration of a nasal influenza vaccine may cause false positive results for Influenza A and/orInfluenza B. Lab Interpretation Abnormal (test code = 23979-0) [facility] [id number] 15:22:28 Test Item Value Reference Interpretation Comments Range Human Metapneumovirus Not detected Not detected, (test code = 96442-5) Equivocal Rhinovirus (test code Not detected Not detected, = 37536-2) Equivocal INFLUENZA A (NO SUBTYPE) (test code = 07676-7) Influenza A subtype H1 (test code = 36169-5) Influenza A Subtype H3 (test code = 00382-7) Influenza A Subtype Detected Not detected, A Droplet H1-2008 (test code = Equiv[place]. 79347-8) Oseltamivir is the drug of choice. Conside r stopping antibiotics. Influenza B (test Not detected Not detected, code = 34658-0) Equivocal Respiratory Syncytial Not detected Not detected, Virus (test code = Equivocal 41928-2) Parainfluenza Virus 1 Not detected Not detected, (test code = 14723-1) Equivocal Parainfluenza Virus 2 Not detected Not detected, (test code = 08737-8) Equivocal Parainfluenza virus 3 Not detected Not detected, (test code = 80778-1) Equivocal Parainfluenza Virus 4 Not detected Not detected, (test code = 31853-1) Equivocal Adenovirus (test code Not detected Not detected, = 02105-5) Equivocal Coronavirus 229E Not detected Not detected, (test code = 11045-7) Equivocal Coronavirus HKU1 Not detected Not detected, (test code = 58554-0) Equivocal Coronavirus NL63 Not detected Not detected, (test code = 52943-6) Equivocal Coronavirus OC43 Not detected Not detected, (test code = 25419-4) Equivocal Bordetella Pertussis Not detected Not detected, (test code = 37881-1) Equivocal Chlamydophila Not detected Not detected, Pneumoniae (test code Equivocal = 70633-7) Mycoplasma Pneumoniae Not detected Not detected, (test code = 59386-4) Equivocal Severe Acute Not detected Not detected, Twentizdxwn-UqX-8 Equivocal (test code = 21406-6) Bordtella Not detected Not detected, Parapertussis (test Equivocal code = 90735-3) SHANA (test code = SHANA) Other viruses and bacteria not targeted by this PCR panel cannot be excluded; therefore clinical correlation and follow up of serology, culture results, and other molecular studies is required. The results are not intended to be used as the sole means for clinical diagnosis or patient management decisions. This sample was tested at the [facility] using the MocavoArray Respiratory Panel. It is FDA cleared and has been verified and approved by the [facility] for clinical use on nasopharyngeal swab specimens. The performance of the FilmArray RP has not been established in individuals who received influenza vaccine. Recent administration of a nasal influenza vaccine may cause false positive results for Influenza A and/orInfluenza B. Lab Interpretation Abnormal (test code = 63566-7) [facility] [id number] 15:22:28 Test Item Value Reference Interpretation Comments Range Human Metapneumovirus Not detected Not detected, (test code = 97791-1) Equivocal Rhinovirus (test code Not detected Not detected, = 97822-6) Equivocal INFLUENZA A (NO SUBTYPE) (test code = 04210-1) Influenza A subtype H1 (test code = 22687-0) Influenza A Subtype H3 (test code = 79642-7) Influenza A Subtype Detected Not detected, A Droplet H1-2009 (test code = Equiv[place]. 95175-4) Oseltamivir is the drug of choice. Conside r stopping antibiotics. Influenza B (test Not detected Not detected, code = 25241-8) Equivocal Respiratory Syncytial Not detected Not detected, Virus (test code = Equivocal 86537-5) Parainfluenza Virus 1 Not detected Not detected, (test code = 27592-6) Equivocal Parainfluenza Virus 2 Not detected Not detected, (test code = 51226-1) Equivocal Parainfluenza virus 3 Not detected Not detected, (test code = 70371-7) Equivocal Parainfluenza Virus 4 Not detected Not detected, (test code = 60341-8) Equivocal Adenovirus (test code Not detected Not detected, = 28048-1) Equivocal Coronavirus 229E Not detected Not detected, (test code = 35185-6) Equivocal Coronavirus HKU1 Not detected Not detected, (test code = 94199-4) Equivocal Coronavirus NL63 Not detected Not detected, (test code = 92508-0) Equivocal Coronavirus OC43 Not detected Not detected, (test code = 68984-6) Equivocal Bordetella Pertussis Not detected Not detected, (test code = 45306-5) Equivocal Chlamydophila Not detected Not detected, Pneumoniae (test code Equivocal = 81589-2) Mycoplasma Pneumoniae Not detected Not detected, (test code = 33946-7) Equivocal Severe Acute Not detected Not detected, Zqvlokntufw-NiM-3 Equivocal (test code = 26891-0) Bordtella Not detected Not detected, Parapertussis (test Equivocal code = 58178-8) SHANA (test code = SHANA) Other viruses and bacteria not targeted by this PCR panel cannot be excluded; therefore clinical correlation and follow up of serology, culture results, and other molecular studies is required. The results are not intended to be used as the sole means for clinical diagnosis or patient management decisions. This sample was tested at the [facility] using the MocavoArray Respiratory Panel. It is FDA cleared and has been verified and approved by the [facility] for clinical use on nasopharyngeal swab specimens. The performance of the FilmArray RP has not been established in individuals who received influenza vaccine. Recent administration of a nasal influenza vaccine may cause false positive results for Influenza A and/orInfluenza B. Lab Interpretation Abnormal (test code = 62986-4) [facility] [id number] 15:22:28 Test Item Value Reference Interpretation Comments Range Human Metapneumovirus Not detected Not detected, (test code = 40972-3) Equivocal Rhinovirus (test code Not detected Not detected, = 58609-3) Equivocal INFLUENZA A (NO SUBTYPE) (test code = 65132-2) Influenza A subtype H1 (test code = 51415-0) Influenza A Subtype H3 (test code = 79261-8) Influenza A Subtype Detected Not detected, A Droplet H1-2009 (test code = [place]. [address]-4) Oseltamivir is the drug of choice. Conside r stopping antibiotics. Influenza B (test Not detected Not detected, code = 03682-5) Equivocal Respiratory Syncytial Not detected Not detected, Virus (test code = Equivocal 53127-3) Parainfluenza Virus 1 Not detected Not detected, (test code = 03978-3) Equivocal Parainfluenza Virus 2 Not detected Not detected, (test code = 11415-4) Equivocal Parainfluenza virus 3 Not detected Not detected, (test code = 53937-4) Equivocal Parainfluenza Virus 4 Not detected Not detected, (test code = 69003-5) Equivocal Adenovirus (test code Not detected Not detected, = 01172-0) Equivocal Coronavirus 229E Not detected Not detected, (test code = 31788-0) Equivocal Coronavirus HKU1 Not detected Not detected, (test code = 03822-4) Equivocal Coronavirus NL63 Not detected Not detected, (test code = 68099-6) Equivocal Coronavirus OC43 Not detected Not detected, (test code = 95715-6) Equivocal Bordetella Pertussis Not detected Not detected, (test code = 44356-6) Equivocal Chlamydophila Not detected Not detected, Pneumoniae (test code Equivocal = 36022-6) Mycoplasma Pneumoniae Not detected Not detected, (test code = 55738-1) Equivocal Severe Acute Not detected Not detected, Altzrhqrebi-PuP-7 Equivocal (test code = 23003-4) Bordtella Not detected Not detected, Parapertussis (test Equivocal code = 48680-8) SHANA (test code = SHANA) Other viruses and bacteria not targeted by this PCR panel cannot be excluded; therefore clinical correlation and follow up of serology, culture results, and other molecular studies is required. The results are not intended to be used as the sole means for clinical diagnosis or patient management decisions. This sample was tested at the [facility] using the T[employer]T ([employer] Respiratory Panel. It is FDA cleared and has been verified and approved by the [facility] for clinical use on nasopharyngeal swab specimens. The performance of the FilmArray RP has not been established in individuals who received influenza vaccine. Recent administration of a nasal influenza vaccine may cause false positive results for Influenza A and/orInfluenza B. Lab Interpretation Abnormal (test code = 26388-1) [facility] [id number] 15:22:28 Test Item Value Reference Range Interpretation [...] ACUTE Not detected Not detected, RESPIRATORY Equivocal [id number]-[id number]-5 (test code = 7080337) BORDETELLA Not detected Not detected, PARAPERTUSSIS (BKR) Equivocal (test code = 1800074) Other viruses and bacteria not targeted by this PCR panel cannot be excluded; therefore clinical correlation and follow up of serology, culture results, and other molecular studies is required. The results are not intended to be used as the sole means for clinical diagnosis or patient management decisions. This sample was tested at the [facility] using the Uni2 FilmArray Respiratory Panel. It is FDA cleared and has been verified and approved by the [facility] for clinical use on nasopharyngeal swab specimens.The performance of the FilmArrayRP has not been established in individuals who received influenza vaccine. Recent administration of a nasal influenza vaccine may cause false positive results for Influenza A and/orInfluenza B.BILIRUBIN, [id number] 14:19:13 Test Item Value Reference Range Interpretation Comments BILIRUBIN DIRECT (BEAKER) (test 0.5 mg/dL 0.1-0.5 code = 706) Child Protective Services Specialist ID - LIBBY BHEPATIC FUNCTION [id number] 11:30:00 Test Item Value Reference Range Interpretation [...] (test code = 15 U/L 6-55 347) Child Protective Services Specialist ID - LIBBY BBASIC METABOLIC [id number] 11:29:59 Test Item Value Reference Range Interpretation [...] De scription 1092) sq m Result G1 Katy l or high >=90 G2 Mildly decreased [...] not appl icable for dialysis patien ts Child Protective Services Specialist ID - LIBBY [id number] 11:29:59 Test Item Value Reference Range Interpretation Comments MAGNESIUM (BEAKER) (test code = 1.6 mg/dL 1.6-2.6 627) Child Protective Services Specialist ID - LIBBY [id number] 11:29:59 Test Item Value Reference Range Interpretation Comments PHOSPHORUS (BEAKER) (test code = 3.2 mg/dL 2.3-4.7 604) Child Protective Services Specialist ID - LIBBY BCBC W/PLT COUNT & AUTO [id number] 10:23:43 Test Item Value Reference Range Interpretation [...] PERCENT (BEAKER) (test code = 2801) Urine [id number] 09:37:23 Test Item Value Reference Range Interpretation Comments Result (test code = <10,000 col/mL skin 6463-4) maria del carmen [facility] [id number] 09:37:23 Test Item Value Reference Range Interpretation Comments Result (test code = <10,000 col/mL skin 6463-4) [facility] [id number] 09:37:23 Test Item Value Reference Range Interpretation Comments Result (test code = <10,000 col/mL skin 6463-4) [facility] [id number] 09:37:23 Test Item Value Reference Range Interpretation Comments Result (test code = <10,000 col/mL skin 6463-4) maria del carmen [facility] [id number] 09:37:23 Test Item Value Reference Range Interpretation Comments Result (test code = <10,000 col/mL skin 6463-4) maria del carmen [facility] [id number] 09:37:23 Test Item Value Reference Range Interpretation Comments Result (test code = <10,000 col/mL skin 6463-4) maria del carmen [facility] [id number] 09:37:23 Test Item Value Reference Range Interpretation Comments Result (test code = <10,000 col/mL skin 6463-4) maria del carmen [facility] [id number] 09:37:23 Test Item Value Reference Range Interpretation Comments Result (test code = <10,000 col/mL skin 6463-4) [facility] 1 [facility]IEW, NON [id number] 03:15:00Reason for exam:->feverShould this be performed at the bedside?->Yes [facility] 1975 Sex: MFINAL REPORT PORTABLE AP CHEST ORDERED AT 09/08/2022 6:54 PM HISTORY: Fever. COMPARISON: Chest radiograph 11/13/2021 IMPRESSION: Heart size is normal. There is no consolidation, effusion or pneumothorax. No evidence of acute osseous abnormality. No evidence of pulmonary edema. Signed: Cyn Calle Verified Date/Time: 09/09/2022 03:15:00 Strep pneumoniae [id number] 20:38:59 Test Item Value Reference Range Interpretation Comments Strep pneumoniae Presumptive negative Presumptive Antigen (test code = [place] [address]-2) pneumonia - see pneumococcal comment pneumonia - [...] test. Lab Interpretation Normal (test code = 24809-2) [facility] [id number] 20:38:59 Test Item Value Reference Range Interpretation Comments Strep pneumoniae Presumptive negative Presumptive Antigen (test code = [place] [address]-3) pneumonia - see pneumococcal comment pneumonia - [...] test. Lab Interpretation Normal (test code = 83786-9) [facility] [id number] 20:38:59 Test Item Value Reference Range Interpretation Comments Strep pneumoniae Presumptive negative Presumptive Antigen (test code = [place] [address]-9) pneumonia - see pneumococcal comment pneumonia - [...] test. Lab Interpretation Normal (test code = 44975-1) [facility] [id number] 20:38:59 Test Item Value Reference Range Interpretation Comments Strep pneumoniae Presumptive negative Presumptive Antigen (test code = [place] [address]-2) pneumonia - see pneumococcal comment pneumonia - [...] test. Lab Interpretation Normal (test code = 52993-7) [facility] pneumoniae [id number] 20:38:59 Test Item Value Reference Range Interpretation Comments Strep pneumoniae Presumptive negative Presumptive Antigen (test code = [place] [address]-7) pneumonia - see pneumococcal comment pneumonia - [...] test. Lab Interpretation Normal (test code = 20497-6) [facility] [id number] 20:38:59 Test Item Value Reference Range Interpretation Comments Strep pneumoniae Presumptive negative Presumptive Antigen (test code = [place] [address]-4) pneumonia - see pneumococcal comment pneumonia - [...] test. Lab Interpretation Normal (test code = 92536-3) [facility] pneumoniae [id number] 20:38:59 Test Item Value Reference Range Interpretation Comments Strep pneumoniae Presumptive negative Presumptive Antigen (test code = [place] for [address]-2) pneumonia - see pneumococcal comment pneumonia - [...] test. Lab Interpretation Normal (test code = 97067-5) [facility] [id number] 20:38:59 Test Item Value Reference Range Interpretation Comments Strep pneumoniae Presumptive negative Presumptive Antigen (test code = [place] [address]-9) pneumonia - see pneumococcal comment pneumonia - [...] test. Lab Interpretation Normal (test code = 54285-3) [facility] HospitalTREP PNEUMONIAE [id number] 20:38:59 Test Item Value Reference Range Interpretation [...] detection limit of the test. LACTIC ACID, [id number] 19:00:48 Test Item Value Reference Range Interpretation Comments LACTATE BLOOD VENOUS (2) (BEAKER) 0.95 mmol/L 0.50-2.20 (test code = 2872) Child Protective Services Specialist ID - [id number] 19:00:27 Test Item Value Reference Range Interpretation Comments PROCALCITONIN (BEAKER) (test code = < ng/mL <0.05 3036) SEPSIS RISK (ng/mL)Low: 0.05-0.50Intermediate: 0.51-2.00High: >=2.01LACTIC ACID, [id number] 18:47:20 Test Item Value Reference Range Interpretation Comments LACTATE BLOOD VENOUS (2) (BEAKER) 0.97 mmol/L 0.50-2.20 (test code = 2872) Child Protective Services Specialist ID - EDCOMPREHENSIVE METABOLIC [id number] 05:42:03 Test Item Value Reference Range Interpretation [...] St age Description sq m Result G1 Katy l or high >=90 G2 Mildly decreased [...] not appl icable for dialysis patien ts Child Protective Services Specialist ID - NEIL [id number] 05:42:03 Test Item Value Reference Range Interpretation Comments MAGNESIUM (BEAKER) (test code = 1.5 mg/dL 1.6-2.6 L 627) Child Protective Services Specialist ID Onofre TREJO [facility]BC (HEMOGRAM ONLY)2022-09-08 05:11:49 Test Item Value [...] SARS-Co V-2 (test code = target nucleic 01512-8) acids are not detected in thi s [...] revoked sooner. Fact Sheet for Healthcare Providers: https://www.[employer].com/Documents/Xp ert%20Xpress%20SAR S%20CoV-2/Fact%20S heets/302-3802%20S ARS-COV-2%20HEALTH CARE%20PROVIDERS%2 0FACT%20SHEET.pdf Fact Sheet for Healthcare Patients: https://www.[employer]/Documents/Xp ert%20Xpress%20SAR S%20CoV-2/Fact%20S heets/302-3801%20S ARS-COV-2%20PATIEN T%20FACT%20SHEET.p df Lab Interpretation Normal (test code = 09591-8) [facility] (Asymptomatic ONLY)2022-09-07 07:59:01 Test Item Value Reference Interpretation Comments Range SARS-COV2/RT-PCR Negative Negative The SARS-Co V-2 (test code = target nucleic 87035-3) acids are not detected in thi s [...] revoked sooner. Fact Sheet for Healthcare Providers: https://www.[employer]/Documents/Xp ert%20Xpress%20SAR S%20CoV-2/Fact%20S heets/302-3802%20S ARS-COV-2%20HEALTH CARE%20PROVIDERS%2 0FACT%20SHEET.pdf Fact Sheet for Healthcare Patients: https://www.[employer]/Documents/Xp ert%20Xpress%20SAR S%20CoV-2/Fact%20S heets/302-3801%20S ARS-COV-2%20PATIEN T%20FACT%20SHEET.p df Lab Interpretation Normal (test code = 04207-3) [facility]OV2/[facility] ([facility])2022-09-07 07:59:01 Test Item Value Reference Range Interpretation Comments SARS-COV2/RT-PCR Negative Negative The SARS-Co V-2 target (test code = nucleic acids a re not 5483053) detected in thi s specimen. Negative result [...] revoked sooner. Fact Sheet for Healthcare Providers: https://www.[employer] m/Documents/Xpert%20Xpress%20SARS%20CoV-2/Fact%20Sheets/3023802%75ARBU-MPJ-1%20 HEALTHCARE%20PROVIDERS%20FACT%20SHEET.pdf Fact Sheet for Healthcare Patients: https://www.[employer]/Documents/Xpert%20Xp ress%20SARS%20CoV-2/Fact%20Sheets/302-3801%98ASFO-TAG-4%20PATIENT%20FACT%20SHEET .pdfCT, [id number] 04:48:00Unlisted Reason for Exam - Click Yes and Enter Reason Below->NoIs this for enterography?->NoWill this procedure require oral contrast?->No [facility] 1975 Sex: MFINAL [...] Signed: Rui Burger MDReport Verified Date/Time: 04:48:11 HEPATIC FUNCTION [id number] 04:11:49 Test Item Value Reference Range Interpretation [...] (test code = 25 U/L 6-55 347) Child Protective Services Specialist ID - CHAMP WOperator ID - CHAMP [id number] 03:24:36 Test Item Value Reference Range Interpretation Comments LIPASE (BEAKER) (test code = 749) < U/L 8-78 L Child Protective Services Specialist ID - CHAMP WBASIC METABOLIC [id number] 02:56:41 Test Item Value Reference Range Interpretation [...] De scription 1092) sq m Result G1 Katy l or high >=90 G2 Mildly decreased [...] not appl icable for dialysis patien ts Child Protective Services Specialist ID - CHAMP WLACTIC ACID, [id number] 02:52:40 Test Item Value Reference Range Interpretation Comments LACTATE BLOOD VENOUS 1.11 mmol/L 0.50-2.20 Specime n slightly (2) (BEAKER) (test hemolyzed code = 8179) Child Protective Services Specialist ID - CHAMP WCBC W/PLT COUNT & AUTO [id number] 02:31:37 Test Item Value Reference Range Interpretation [...] = 2801) Urinalysis w/Microscopic + Reflex to [id number] 02:18:03 Test Item Value Reference Range Interpretation Comments Color, UA (test code Yellow = 5778-6) Clarity, UA (test Hazy code = 5767-9) Specific Alva, UA 1.028 1.001-1.035 (test code = 5811-5) pH, UA (test code = 6.0 5.0-8.0 5803-2) Protein, UA (test 20 mg/dL Negative A code = 39690-6) Glucose, UA (test 150 mg/dL Negative A code = 365) Ketones, UA (test Negative Negative code = 2514-8) Bilirubin, UA (test Negative Negative code = 12493-5) Blood, UA (test code Negative Negative = 43229-4) Nitrite, UA (test Negative Negative code = 5802-4) Leukocytes, UA (test Small Negative A code = 5799-2) Urobilinogen, UA 0.2 0.2-1.0 (test code = 14892-7) RBC, UA (test code = 15 See_Comment [Autom ated 42316-7) message] The system which generated this result [...] <1 See_Comment [Automate d (test code = 46380-9) messag e] The system which generated this [...] (test Occasional None Seen A code = 15831-4) Specimen Source (test code = 2795) SHANA (test code = SHANA) Child Protective Services Specialist ID - [auto]Child Protective Services Specialist ID - tech Lab Interpretation Abnormal (test code = 16338-6) [facility] Reflex to Culture 2022-09-07 02:18:03 Test Item Value Reference Range Interpretation Comments Color, UA (test code Yellow = 5778-6) Clarity, UA (test Hazy code = 5767-9) Specific Alva, UA 1.028 1.001-1.035 (test code = 5811-5) pH, UA (test code = 6.0 5.0-8.0 5803-2) Protein, UA (test 20 mg/dL Negative A code = 57993-9) Glucose, UA (test 150 mg/dL Negative A code = 365) Ketones, UA (test Negative Negative code = 2514-8) Bilirubin, UA (test Negative Negative code = 58209-4) Blood, UA (test code Negative Negative = 19273-4) Nitrite, UA (test Negative Negative code = 5802-4) Leukocytes, UA (test Small Negative A code = 5799-2) Urobilinogen, UA 0.2 0.2-1.0 (test code = 42707-4) RBC, UA (test code = 15 See_Comment [Autom ated 13830-4) message] The system which generated this result [...] <1 See_Comment [Automate d (test code = 46837-0) messag e] The system which generated this [...] (test Occasional None Seen A code = 86966-6) Specimen Source (test code = 2795) SHANA (test code = SHANA) Child Protective Services Specialist ID - [auto]Child Protective Services Specialist ID - tech Lab Interpretation Abnormal (test code = 08577-8) [facility] Reflex to Culture 2022-09-07 02:18:03 Test Item Value Reference Range Interpretation Comments Color, UA (test code Yellow = 5778-6) Clarity, UA (test Hazy code = 5767-9) Specific Alva, UA 1.028 1.001-1.035 (test code = 5811-5) pH, UA (test code = 6.0 5.0-8.0 5803-2) Protein, UA (test 20 mg/dL Negative A code = 00816-8) Glucose, UA (test 150 mg/dL Negative A code = 365) Ketones, UA (test Negative Negative code = 2514-8) Bilirubin, UA (test Negative Negative code = 68491-0) Blood, UA (test code Negative Negative = 83052-3) Nitrite, UA (test Negative Negative code = 5802-4) Leukocytes, UA (test Small Negative A code = 5799-2) Urobilinogen, UA 0.2 0.2-1.0 (test code = 00955-4) RBC, UA (test code = 15 See_Comment [Autom ated 73359-1) message] The system which generated this result [...] <1 See_Comment [Automate d (test code = 43756-5) messag e] The system which generated this [...] (test Occasional None Seen A code = 36587-4) Specimen Source (test code = 2795) SHANA (test code = SHANA) Child Protective Services Specialist ID - [auto]Child Protective Services Specialist ID - tech Lab Interpretation Abnormal (test code = 14818-3) [facility] + Reflex to Culture 2022-09-07 02:18:03 Test Item Value Reference Range Interpretation Comments Color, UA (test code Yellow = 5778-6) Clarity, UA (test Hazy code = 5767-9) Specific Alva, UA 1.028 1.001-1.035 (test code = 5811-5) pH, UA (test code = 6.0 5.0-8.0 5803-2) Protein, UA (test 20 mg/dL Negative A code = 74476-7) Glucose, UA (test 150 mg/dL Negative A code = 365) Ketones, UA (test Negative Negative code = 2514-8) Bilirubin, UA (test Negative Negative code = 52433-4) Blood, UA (test code Negative Negative = 80272-0) Nitrite, UA (test Negative Negative code = 5802-4) Leukocytes, UA (test Small Negative A code = 5799-2) Urobilinogen, UA 0.2 0.2-1.0 (test code = 39770-2) RBC, UA (test code = 15 See_Comment [Autom ated 51383-9) message] The system which generated this result [...] <1 See_Comment [Automate d (test code = 46746-2) messag e] The system which generated this [...] (test Occasional None Seen A code = 65829-3) Specimen Source (test code = 2795) SHANA (test code = SHANA) Child Protective Services Specialist ID - [auto]Child Protective Services Specialist ID - tech Lab Interpretation Abnormal (test code = 92751-2) [facility] Reflex to Culture 2022-09-07 02:18:03 Test Item Value Reference Range Interpretation Comments Color, UA (test code Yellow = 5778-6) Clarity, UA (test Hazy code = 5767-9) Specific Alva, UA 1.028 1.001-1.035 (test code = 5811-5) pH, UA (test code = 6.0 5.0-8.0 5803-2) Protein, UA (test 20 mg/dL Negative A code = 43540-5) Glucose, UA (test 150 mg/dL Negative A code = 365) Ketones, UA (test Negative Negative code = 2514-8) Bilirubin, UA (test Negative Negative code = 07491-6) Blood, UA (test code Negative Negative = 60124-2) Nitrite, UA (test Negative Negative code = 5802-4) Leukocytes, UA (test Small Negative A code = 5799-2) Urobilinogen, UA 0.2 0.2-1.0 (test code = 92736-2) RBC, UA (test code = 15 See_Comment [Autom ated 19593-4) message] The system which generated this result [...] <1 See_Comment [Automate d (test code = 52607-1) messag e] The system which generated this [...] (test Occasional None Seen A code = 19673-0) Specimen Source (test code = 2795) SHANA (test code = SHANA) Child Protective Services Specialist ID - [auto]Child Protective Services Specialist ID - tech Lab Interpretation Abnormal (test code = 33201-0) [facility] Reflex to Culture 2022-09-07 02:18:03 Test Item Value Reference Range Interpretation Comments Color, UA (test code Yellow = 5778-6) Clarity, UA (test Hazy code = 5767-9) Specific Alva, UA 1.028 1.001-1.035 (test code = 5811-5) pH, UA (test code = 6.0 5.0-8.0 5803-2) Protein, UA (test 20 mg/dL Negative A code = 31390-2) Glucose, UA (test 150 mg/dL Negative A code = 365) Ketones, UA (test Negative Negative code = 2514-8) Bilirubin, UA (test Negative Negative code = 35035-9) Blood, UA (test code Negative Negative = 27223-0) Nitrite, UA (test Negative Negative code = 5802-4) Leukocytes, UA (test Small Negative A code = 5799-2) Urobilinogen, UA 0.2 0.2-1.0 (test code = 08545-2) RBC, UA (test code = 15 See_Comment [Autom ated 81933-6) message] The system which generated this result [...] code = Rare 8247-9) Squam Epithel, UA See_Comment [Automate d (test code = 74216-9) messag e] The system which generated this [...] (test Occasional None Seen A code = 77845-5) Specimen Source (test code = 2795) SHANA (test code = SHANA) Child Protective Services Specialist ID - [auto]Child Protective Services Specialist ID - tech Lab Interpretation Abnormal (test code = 32017-6) [facility] Reflex to Culture 2022-09-07 02:18:03 Test Item Value Reference Range Interpretation Comments Color, UA (test code Yellow = 5778-6) Clarity, UA (test Hazy code = 5767-9) Specific Al[place], UA 1.028 1.001-1.035 (test code = 5811-5) pH, UA (test code = 6.0 5.0-8.0 5803-2) Protein, UA (test 20 mg/dL Negative A code = 79085-6) Glucose, UA (test 150 mg/dL Negative A code = 365) Ketones, UA (test Negative Negative code = 2514-8) Bilirubin, UA (test Negative Negative code = 06616-8) Blood, UA (test code Negative Negative = 13656-4) Nitrite, UA (test Negative Negative code = 5802-4) Leukocytes, UA (test Small Negative A code = 5799-2) Urobilinogen, UA 0.2 0.2-1.0 (test code = 69715-0) RBC, UA (test code = 15 See_Comment [Autom ated 07436-9) message] The system which generated this result [...] code = Rare 8247-9) Squam Epithel, UA See_Comment [Automate d (test code = 30381-4) messag e] The system which generated this [...] (test Occasional None Seen A code = 06442-3) Specimen Source (test code = 2795) SHANA (test code = SHANA) Child Protective Services Specialist ID - [auto]Child Protective Services Specialist ID - tech Lab Interpretation Abnormal (test code = 39804-5) [facility]lex [facility] Culture 2022-09-07 02:18:03 Test Item Value Reference Range Interpretation Comments Color, UA (test code Yellow = 5778-6) Clarity, UA (test Hazy code = 5767-9) Specific Alva, UA 1.028 1.001-1.035 (test code = 5811-5) pH, UA (test code = 6.0 5.0-8.0 5803-2) Protein, UA (test 20 mg/dL Negative A code = 21715-2) Glucose, UA (test 150 mg/dL Negative A code = 365) Ketones, UA (test Negative Negative code = 2514-8) Bilirubin, UA (test Negative Negative code = 98734-0) Blood, UA (test code Negative Negative = 44702-8) Nitrite, UA (test Negative Negative code = 5802-4) Leukocytes, UA (test Small Negative A code = 5799-2) Urobilinogen, UA 0.2 0.2-1.0 (test code = 90990-8) RBC, UA (test code = 15 See_Comment [Autom ated 49200-3) message] The system which generated this result [...] code = Rare 8247-9) Squam Epithel, UA See_Comment [Automate d (test code = 59135-1) messag e] The system which generated this [...] (test Occasional None Seen A code = 84386-1) Specimen Source (test code = 2795) SHANA (test code = SHANA) Child Protective Services Specialist ID - [auto]Child Protective Services Specialist ID - tech Lab Interpretation Abnormal (test code = 42995-8) [facility] Ref[facility] Culture 2022-09-07 02:18:03 Test Item Value Reference Range Interpretation Comments Color, UA (test code Yellow = 5778-6) Clarity, UA (test Hazy code = 5767-9) Specific Alva, UA 1.028 1.001-1.035 (test code = 5811-5) pH, UA (test code = 6.0 5.0-8.0 5803-2) Protein, UA (test 20 mg/dL Negative A code = 90040-0) Glucose, UA (test 150 mg/dL Negative A code = 365) Ketones, UA (test Negative Negative code = 2514-8) Bilirubin, UA (test Negative Negative code = 03400-6) Blood, UA (test code Negative Negative = 88794-4) Nitrite, UA (test Negative Negative code = 5802-4) Leukocytes, UA (test Small Negative A code = 5799-2) Urobilinogen, UA 0.2 0.2-1.0 (test code = 74683-6) RBC, UA (test code = 15 See_Comment [Autom ated 30103-1) message] The system which generated this result [...] code = Rare 8247-9) Squam Epithel, UA See_Comment [Automate d (test code = 80064-3) messag e] The system which generated this [...] (test Occasional None Seen A code = 61714-7) Specimen Source (test code = 2795) SHANA (test code = SHANA) Child Protective Services Specialist ID - [auto]Child Protective Services Specialist ID - tech Lab Interpretation Abnormal (test code = 52896-3) [facility] URINE [id number] 02:18:03 Test Item Value Reference Range Interpretation [...] = 1521) SOURCE(BEAKER) (test code = 2795) Child Protective Services Specialist ID - [auto]Child Protective Services Specialist ID - techCF RESPIRATORY [id number] 13:04:52 Test Item Value Reference Range Interpretation [...] 3+ Normal respiratory maria del carmen presentCT, [id number] 05:31:00Reason for exam:->ABDOMINAL PAINReason for exam:->NAUSEAReason for exam:- >BLOATEDWhat is the patient's sedation requirement?->No Sedation [facility] 1975 Sex: [...] limits. IMPRESSION: Findings consistent with constipation. Signed: Teddy Ly MDReportVerified Date/Time: 06/27/2022 05:31:41 [id number] 02:42:45 Test Item Value Reference Range Interpretation Comments LIPASE (BEAKER) (test code = 749) < U/L 8-78 L Child Protective Services Specialist ID - PIAYA LHEPATIC FUNCTION [id number] 02:15:20 Test Item Value Reference Range Interpretation [...] (test code = 16 U/L 6-55 347) Child Protective Services Specialist ID - PIHANS LBASIC METABOLIC [id number] 02:15:19 Test Item Value Reference Range Interpretation [...] De scription 1092) sq m Result G1 Katy l or high >=90 G2 Mildly decreased [...] not appl icable for dialysis patien ts Child Protective Services Specialist ID - PIHANS LCBC W/PLT COUNT & AUTO [id number] 01:44:55 Test Item Value Reference Range Interpretation [...] PERCENT (BEAKER) (test code = 2801) BLOOD [id number] 22:01:03 Test Item Value Reference Range Interpretation Comments CULTURE (BEAKER) (test No growth in 5 days code = 1095) BLOOD [id number] 22:01:03 Test Item Value Reference Range Interpretation Comments CULTURE (BEAKER) (test No growth in 5 days code = 1095) POC-Glucose [id number] 17:23:45 Test Item Value Reference Range Interpretation Comments POC-Glucose Meter (test 137 mg/dL 70-110 H : TE STED AT [facility] code = 1538) [address] [place] [address], 770 30: Child Protective Services Specialist/Techni rian ID = [id number] for Nondenominational, Kayl ynn Lab Interpretation (test Abnormal code = 37557-6) [facility] [id number] 17:23:45 Test Item Value Reference Range Interpretation Comments POC-Glucose Meter (test 137 mg/dL 70-110 H : TE STED AT [facility] code = 1538) [address] [place] [address], 770 30: Child Protective Services Specialist/Techni rian ID = [id number] for Nondenominational, Kayl ynn Lab Interpretation (test Abnormal code = 18315-2) [facility]-Glucose [id number] 17:23:45 Test Item Value Reference Range Interpretation Comments POC-Glucose Meter (test 137 mg/dL 70-110 H : TE STED AT [facility] code = 1538) [address] [place] [address], 770 30: Child Protective Services Specialist/Techni rian ID = [id number] for Nondenominational, Kayl ynn Lab Interpretation (test Abnormal code = 15519-0) [facility]-Glucose [id number] 17:23:45 Test Item Value Reference Range Interpretation Comments POC-Glucose Meter (test 137 mg/dL 70-110 H : TE STED AT [facility] code = 1538) [address] [place] [address], 770 30: Child Protective Services Specialist/Techni rian ID = [id number] for Nondenominational, Kayl ynn Lab Interpretation (test Abnormal code = 02602-1) [facility] [id number] 17:23:45 Test Item Value Reference Range Interpretation Comments POC-Glucose Meter (test 137 mg/dL 70-110 H : TE STED AT [facility] code = 1538) [address] [place] [address], 770 30: Child Protective Services Specialist/Techni rian ID = [id number] for Nondenominational, Kayl ynn Lab Interpretation (test Abnormal code = 96651-2) [facility] [id number] 17:23:45 Test Item Value Reference Range Interpretation Comments POC-Glucose Meter (test 137 mg/dL 70-110 H : TE STED AT [facility] code = 1538) [address] [facility], 770 30: Child Protective Services Specialist/Techni rian ID = [id number] for Nondenominational, Kayl ynn Lab Interpretation (test Abnormal code = 64850-7) [facility] [id number] 17:23:45 Test Item Value Reference Range Interpretation Comments POC-Glucose Meter (test 137 mg/dL 70-110 H : TE STED AT [facility] code = 1538) [address] [place] [address], 770 30: Child Protective Services Specialist/Techni rian ID = [id number] for Nondenominational, Kayl ynn Lab Interpretation (test Abnormal code = 05562-7) [facility] [id number] 17:23:45 Test Item Value Reference Range Interpretation Comments POC-Glucose Meter (test 137 mg/dL 70-110 H : TE STED AT [facility] code = 1538) [address] [place] [address], 770 30: Child Protective Services Specialist/Techni rian ID = [id number] for Nondenominational, Kayl ynn Lab Interpretation (test Abnormal code = 56739-2) [facility] [id number] 17:23:45 Test Item Value Reference Range Interpretation Comments POC-Glucose Meter (test 137 mg/dL 70-110 H : TE STED AT [facility] code = 1538) [address] [place] [address], 770 30: Child Protective Services Specialist/Techni rian ID = [id number] for Nondenominational, Kayl ynn Lab Interpretation (test Abnormal code = 01750-0) [facility] [id number] 17:23:45 Test Item Value Reference Range Interpretation Comments POC-GLUCOSE METER 137 mg/dL 70-110 H : TESTED A T [facility] 6720 (BEAKER) (test code = [facility], 1538) [address]: Child Protective Services Specialist/Techni rian ID = [id number] for Ch Panchito marcosylynn POCT-GLUCOSE [id number] 13:08:56 Test Item Value Reference Range Interpretation Comments POC-GLUCOSE METER 101 mg/dL 70-110 : TESTED A T [facility] 6720 (BEAKER) (test code = [facility], 1538) [address]: Child Protective Services Specialist/Techni rian ID = [id number] for Ch ristian, Radha POCT-GLUCOSE [id number] 06:01:56 Test Item Value Reference Range Interpretation Comments POC-GLUCOSE METER 99 mg/dL 70-110 : TESTED A T [facility] 6720 (BEAKER) (test code = [facility] [place], 1538) [address]: Child Protective Services Specialist/Techni rian ID = [id number] for NAOMI NAPIER [id number] 04:54:21 Test Item Value Reference Range Interpretation Comments PHOSPHORUS (BEAKER) (test code = 2.2 mg/dL 2.3-4.7 L 604) Child Protective Services Specialist ID - SANGITAHANS LBASIC METABOLIC [id number] 04:54:20 Test Item Value Reference Range Interpretation [...] De scription 1092) sq m Result G1 Katy l or high >=90 G2 Mildly decreased 60-89 G3a Mildl y to moderately 45-5 9 G3b Moderately to s everely 30-44 G4 Severl y decreased 15-29 G5 Kidney failure <15Reported eGF R is based on the CKD-EPI 2021 equation that d oes not use a race coefficientEsti mated GFR is not as accur ate as Creatinine Collette samy in predicting glom erular filtration rate . Estimated GFR is not appl icable for dialysis patien ts Child Protective Services Specialist ID - PIHANS [id number] 04:54:20 Test Item Value Reference Range Interpretation Comments MAGNESIUM (BEAKER) (test code = 1.5 mg/dL 1.6-2.6 L 627) Child Protective Services Specialist ID - ANETA LCALCIUM, [id number] 04:35:35 Test Item Value Reference Range Interpretation Comments CALCIUM IONIZED (BEAKER) (test 1.21 mmol/L 1.12-1.27 code = 698) PH, BLOOD (BEAKER) (test code = 7.44 1810) CBC W/PLT COUNT & AUTO [id number] 04:29:51 Test Item Value Reference Range Interpretation [...] PERCENT (BEAKER) (test code = 2801) POCT-GLUCOSE [id number] 00:27:52 Test Item Value Reference Range Interpretation Comments POC-GLUCOSE METER 122 mg/dL 70-110 H : TESTED A T [facility] 6720 (BEAKER) (test code = [facility], 153) [address]: Child Protective Services Specialist/Techni rian ID = [id number] for UL GEOVANNY CARRAK POCT-GLUCOSE [id number] 17:23:54 Test Item Value Reference Range Interpretation Comments POC-GLUCOSE METER 99 mg/dL 70-110 : TESTED A T [facility] 6720 (BEAKER) (test code = [facility], 153) [address]: Child Protective Services Specialist/Techni rian ID = [id number] for Felton Mulligannn POCT-GLUCOSE [id number] 13:00:38 Test Item Value Reference Range Interpretation Comments POC-GLUCOSE METER 109 mg/dL 70-110 : TESTED A T [facility] 6720 (BEAKER) (test code = [facility], 153) [address]: Child Protective Services Specialist/Techni rian ID = [id number] for Jesse burrelltawanda Radha POCT-GLUCOSE [id number] 08:29:30 Test Item Value Reference Range Interpretation Comments POC-GLUCOSE METER 88 mg/dL 70-110 : TESTED A T [facility] 6720 (BEAKER) (test code = [facility], 153) [address]: Child Protective Services Specialist/Techni rian ID = [id number] for Felton Mulligannn [id number] 06:05:22 Test Item Value Reference Range Interpretation Comments MAGNESIUM (BEAKER) (test code = 1.6 mg/dL 1.6-2.6 627) Child Protective Services Specialist ID - [id number] 06:05:22 Test Item Value Reference Range Interpretation Comments PHOSPHORUS (BEAKER) (test code = 2.5 mg/dL 2.3-4.7 604) Child Protective Services Specialist ID - MITCHBASIC METABOLIC [id number] 06:05:21 Test Item Value Reference Range Interpretation [...] De scription 1092) sq m Result G1 Katy l or high >=90 G2 Mildly decreased [...] not appl icable for dialysis patien ts Child Protective Services Specialist ID - MITCHCBC W/PLT COUNT & AUTO [id number] 05:22:05 Test Item Value Reference Range Interpretation [...] PERCENT (BEAKER) (test code = 2801) CALCIUM, [id number] 05:08:23 Test Item Value Reference Range Interpretation Comments CALCIUM IONIZED (BEAKER) (test 1.18 mmol/L 1.12-1.27 code = 698) PH, BLOOD (BEAKER) (test code = 7.42 1810) POCT-GLUCOSE [id number] 21:15:12 Test Item Value Reference Range Interpretation Comments POC-GLUCOSE METER 98 mg/dL 70-110 : TESTED A T [facility] 6720 (BEAKER) (test code = [facility], 1538) [address]: Child Protective Services Specialist/Techni rian ID = [id number] for KURT JACQUES POCT-GLUCOSE [id number] 17:48:23 Test Item Value Reference Range Interpretation Comments POC-GLUCOSE METER 90 mg/dL 70-110 : TESTED A T [facility] 6720 (BEAKER) (test code = [facility], 1538) 00407: Child Protective Services Specialist/Techni rian ID = [id number] for OLLIE OS, BOJRN POCT-GLUCOSE [id number] 12:56:50 Test Item Value Reference Range Interpretation Comments POC-GLUCOSE METER 78 mg/dL 70-110 : TESTED A T [facility] 6720 (BEAKER) (test code = [facility], [facility]8) 118[address]: Child Protective Services Specialist/Techni rian ID = [id number] for OLLIE OS, BJORN POCT-GLUCOSE [id number] 10:25:02 Test Item Value Reference Range Interpretation Comments POC-GLUCOSE METER 86 mg/dL 70-110 : TESTED A T [facility] 6720 (BEAKER) (test code = [facility], 1538) [address]: Child Protective Services Specialist/Techni rian ID = [id number] for KOLL EADE, RITCHEL POCT-GLUCOSE [id number] 08:38:42 Test Item Value Reference Range Interpretation Comments POC-GLUCOSE METER 39 mg/dL 70-110 LL : TESTED A T [facility] 6720 (BEAKER) (test code = [facility], 1538) [address]: Child Protective Services Specialist/Techni rian ID = [id number] for OLLIE OS, BJORN BASIC METABOLIC [id number] 06:19:55 Test Item Value Reference Range Interpretation [...] De scription 1092) sq m Result G1 Katy l or high >=90 G2 Mildly decreased 60-89 G3a Mildl y to moderately 45-5 9 G3b Moderately to s everely 30-44 G4 Sever ly decreased 15-29 G5 Kidney failure <15Repo rted eGFR is based on the CKD-EPI 2020 equation t hat does not use a race coefficientEsti mated GFR is not as accur ate as Creatinine Collette samy in predicting glom erular filtration rate . Estimated GFR is not appl icable for dialysis patien ts Child Protective Services Specialist ID - ANETA [id number] 06:19:55 Test Item Value Reference Range Interpretation Comments MAGNESIUM (BEAKER) (test code = 1.7 mg/dL 1.6-2.6 627) Child Protective Services Specialist ID - ANETA [id number] 06:19:55 Test Item Value Reference Range Interpretation Comments PHOSPHORUS (BEAKER) (test code = 2.7 mg/dL 2.3-4.7 604) Child Protective Services Specialist ID - ANETA LCALCIUM, [id number] 05:32:18 Test Item Value Reference Range Interpretation Comments CALCIUM IONIZED (BEAKER) (test 1.17 mmol/L 1.12-1.27 code = 698) PH, BLOOD (BEAKER) (test code = 7.38 1810) CBC W/PLT COUNT & AUTO [id number] 05:17:46 Test Item Value Reference Range Interpretation [...] PERCENT (BEAKER) (test code = 2801) POCT-GLUCOSE [id number] 21:21:38 Test Item Value Reference Range Interpretation Comments POC-GLUCOSE METER 83 mg/dL 70-110 : TESTED A Dev [facility] 6720 (BEAKER) (test code = [facility], 153) [address]: Child Protective Services Specialist/Techni rian ID = [id number] for KURT JACQUES POCT-GLUCOSE [id number] 17:35:25 Test Item Value Reference Range Interpretation Comments POC-GLUCOSE METER 92 mg/dL 70-110 : TESTED A T [facility] 6720 (BEAKER) (test code = [facility], 1538) [address]: Child Protective Services Specialist/Techni rian ID = [id number] for OLLIE OSBJORN POCT-GLUCOSE [id number] 12:27:21 Test Item Value Reference Range Interpretation Comments POC-GLUCOSE METER 86 mg/dL 70-110 : TESTED A T [facility] 6720 (BEAKER) (test code = [facility], 153) [address]: Child Protective Services Specialist/Techni rian ID = [id number] for ABDIRASHID ANGEL BASIC METABOLIC [id number] 05:55:16 Test Item Value Reference Range Interpretation [...] De scription 1092) sq m Result G1 Katy l or high >=90 G2 Mildly decreased 60-89 G3a Mildl y to moderately 45-5 9 G3b Moderately to s everely 30-44 G4 Severl y decreased 15-29 G5 Kidney failure <15Reported eGF R is based on the CKD-EPI 2021 equation that d oes not use a race coefficientEsti mated GFR is not as accur ate as Creatinine Collette pablo in predicting glom erular filtration rate . Estimated GFR is not appl icable for dialysis patien ts Child Protective Services Specialist ID - NEIL [id number] 05:55:16 Test Item Value Reference Range Interpretation Comments MAGNESIUM (BEAKER) (test code = 1.4 mg/dL 1.6-2.6 L 627) Child Protective Services Specialist ID - NEIL MCBC W/PLT COUNT & AUTO [id number] 04:55:50 Test Item Value Reference Range Interpretation [...] PERCENT (BEAKER) (test code = 2801) SARS-COV2/RT-PCR ([facility])2022-06-18 23:40:17 Test Item Value Reference Range Interpretation Comments SARS-COV2/RT-PCR Negative Negative The SARS-Co V-2 target (test code = nucleic acids a re not 6110682) detected in thi s specimen. Negative result [...] sooner. Fact Sheet for Healthcare Providers: https://www.cepheid.co m/Documents/Xpert%20Xpress%20SARS%20CoV-2/Fact%20Sheets/837-4415%30IZZQ-HDJ-0%20 HEALTHCARE%20PROVIDERS%20FACT%20SHEET.pdf Fact Sheet for Healthcare Patients: https://www.PERORA/Documents/Xpert%20Xp ress%20SARS%20CoV-2/Fact%20Sheets/3023801%72FHLH-KVI-1%20PATIENT%20FACT%20SHEET .pdfSHANTEL [id number] 23:39:00Unlisted Reason for Exam - Click Yes and Enter Reason Below->NoIs this for enterography?->NoWill this procedure require oral contrast?->No [facility] 1975 Sex: MFINAL [...] Mosley MDReport Verified Date/Time: 06/18/2022 23:39:49 POCT-GLUCOSE [id number] 23:35:19 Test Item Value Reference Range Interpretation Comments POC-GLUCOSE METER 105 mg/dL 70-110 : TESTED A T [facility] 6720 ([facility]) (test code [facility], = 1538) 69252: Child Protective Services Specialist/Techni rian ID = [id number] for SABINE WOODS [id number] 21:52:33 Test Item Value Reference Range Interpretation Comments PARTIAL THROMBOPLASTIN TIME 31.4 seconds 22.5-36.0 (BEAKER) (test code = 760) PROTHROMBIN TIME/[id number] 21:51:51 Test Item Value Reference Range Interpretation Comments PROTIME (BEAKER) 18.2 seconds 11.9-14.2 H (test code = 759) INR (BEAKER) (test 1.61 See_Comment [Automat ed message] code = 370) The system [employer] generated this result transmitted ref erence range: [...] St age Description sq m Result G1 Katy l or high >=90 G2 Mildly decreased 60-89 G3a Mildl y to moderately 45-5 9 G3b Moderately to s everely 30-44 G4 Severl y decreased 15-29 G5 Kidney failure <15Reported eGF R is based on the CKD-EPI 2021 equation that d oes not use a race coefficientEsti mated GFR is not as accur ate as Creatinine Collette pablo in predicting glom erular filtration rate . Estimated GFR is not appl icable for dialysis patien ts Child Protective Services Specialist ID - NEIL MLACTIC ACID, [id number] 21:36:08 Test Item Value Reference Range Interpretation Comments LACTATE BLOOD VENOUS 1.03 mmol/L 0.50-2.20 Specime n slightly (2) (BEAKER) (test hemolyzed code = 4436) Child Protective Services Specialist ID - HARLEY MCBC W/PLT COUNT & AUTO [id number] 21:29:50 Test Item Value Reference Range Interpretation [...] (test code = No acid fast bacilli 79961-2) seen [facility]sp[facility] only)2022-03-05 13:13:42 Test Item Value Reference Range Interpretation Comments Result (test code = No acid-fast bacilli 6463-4) isolated in 42 days AFB Smear (test code = No acid fast bacilli 99483-7) seen [facility] smear (sputum only)2022-03-05 13:13:42 Test Item Value Reference Range Interpretation Comments Result (test code = No acid-fast bacilli 6463-4) isolated in 42 days AFB Smear (test code = No acid fast bacilli 33354-0) seen [facility] + smear (sputum only)2022-03-05 13:13:42 Test Item Value Reference Range Interpretation Comments Result (test code = No acid-fast bacilli 6463-4) isolated in 42 days AFB Smear (test code = No acid fast bacilli 70954-6) seen [facility] + smear (sputum only)2022-03-05 13:13:42 Test Item Value Reference Range Interpretation Comments Result (test code = No acid-fast bacilli 6463-4) isolated in 42 days AFB Smear (test code = No acid fast bacilli 32260-0) seen [facility] + smear (sputum only)2022-03-05 13:13:42 Test Item Value Reference Range Interpretation Comments Result (test code = No acid-fast bacilli 6463-4) isolated in 42 days AFB Smear (test code = No acid fast bacilli 82441-7) seen [facility] + smear (sputum only)2022-03-05 13:13:42 Test Item Value Reference Range Interpretation Comments Result (test code = No acid-fast bacilli 6463-4) isolated in 42 days AFB Smear (test code = No acid fast bacilli 22260-2) seen [facility] + smear (sputum only)2022-03-05 13:13:42 Test Item Value Reference Range Interpretation Comments Result (test code = No acid-fast bacilli 6463-4) isolated in 42 days AFB Smear (test code = No acid fast bacilli 85087-1) seen [facility] + SMEAR (SPUTUM ONLY)2022-03-05 13:13:42 Test [...] code = 994) seen Fungus culture + [id number] 17:15:11 Test Item Value Reference Range Interpretation Comments Result (test code = No fungus isolated in 6463-4) 28 days Fungus Smear (test No fungi seen code = 1406) [facility] + [id number] 17:15:11 Test Item Value Reference Range Interpretation Comments Result (test code = No fungus isolated in 6463-4) 28 days Fungus Smear (test No fungi seen code = 1406) [facility] + [id number] 17:15:11 Test Item Value Reference Range Interpretation Comments Result (test code = No fungus isolated in 6463-4) 28 days Fungus Smear (test No fungi seen code = 1406) [facility] + [id number] 17:15:11 Test Item Value Reference Range Interpretation Comments Result (test code = No fungus isolated in 6463-4) 28 days Fungus Smear (test No fungi seen code = 1406) [facility] + [id number] 17:15:11 Test Item Value Reference Range Interpretation Comments Result (test code = No fungus isolated in 6463-4) 28 days Fungus Smear (test No fungi seen code = 1406) [facility] + [id number] 17:15:11 Test Item Value Reference Range Interpretation Comments Result (test code = No fungus isolated in 6463-4) 28 days Fungus Smear (test No fungi seen code = 1406) [facility] + [id number] 17:15:11 Test Item Value Reference Range Interpretation Comments CULTURE (BEAKER) (test No fungus isolated in code = 1095) 28 days FUNGUS SMEAR (BEAKER) No fungi seen (test code = 1406) FUNGUS CULTURE + [id number] 23:48:39 Test Item Value Reference Range Interpretation Comments CULTURE (BEAKER) (test No fungus isolated in code = 1095) 28 days FUNGUS SMEAR (BEAKER) No fungi seen (test code = 1406) [facility] RESPIRATORY [id number] 09:35:46 Test Item Value Reference Interpretation Comments [...] 4+ Normal respiratory maria del carmen presentSPIN/CONCENTRATION [id number] 06:58:03 Test Item Value Reference Range Interpretation Comments Concentration charged (test code = Done 7) [facility] HospitalPIN/CONCENTRATION [id number] 06:58:03 Test Item Value Reference Range Interpretation Comments Concentration charged (test code = Done 7) [facility] HospitalPIN/CONCENTRATION [id number] 06:58:03 Test Item Value Reference Range Interpretation Comments Concentration charged (test code = Done 7) [facility] HospitalPIN/CONCENTRATION [id number] 06:58:03 Test Item Value Reference Range Interpretation Comments Concentration charged (test code = Done 7) [facility] HospitalPIN/CONCENTRATION [id number] 06:58:03 Test Item Value Reference Range Interpretation Comments Concentration charged (test code = Done 2656) [facility] HospitalPIN/CONCENTRATION [id number] 06:58:03 Test Item Value Reference Range Interpretation Comments Concentration charged (test code = Done 2656) [facility] HospitalPIN/CONCENTRATION [id number] 06:58:03 Test Item Value Reference Range Interpretation Comments CONCENTRATION CHARGED (BEAKER) (test Done code = 265) CF RESPIRATORY [id number] 12:17:43 Test Item Value Reference Interpretation Comments [...] S [Auto mated message] 1) The system [employer] generated this result transmit joann reference range : Susceptible 0-1 6 , Resistant <0 or >16 . The reference range was not u sed to interpret th is result as normal/abnormal . Aztreonam (test code See_Comment S [Autom ated message] = 32) The system [employer] generated this result transmit joann reference range : Susceptible 0-8 , Resistant <0 or >8 . The reference r taurus was not used to interpret this result as normal/abnormal . Cefepime (test code = See_Comment R [Auto mated message] 51) The system [employer] generated this result transmit joann reference range : Susceptible 0-8 , Resistant <0 or >8 . The reference r taurus was not used to interpret this result as normal/abnormal . Ceftazidime (test See_Comment S [Automate d message] code = 27) The system [employer] generated this result transmit joann reference range : Susceptible 0-8 , Resistant <0 or >8 . The reference r taurus was not used to interpret this result as normal/abnormal . Ciprofloxacin (test See_Comment S [Automa joann message] code = 7) The system [employer] generated this result transmit joann reference range : Susceptible 0-0 .5 , Resistant <0 or >.5 . The reference range was not u sed to interpret th is result as normal/abnormal . Doripenem (test code See_Comment S [Autom ated message] = 100) The system [employer] generated this result transmit joann reference range : Susceptible 0-2 , Resistant <0 or >2 . The reference r taurus was not used to interpret this result as normal/abnormal . Gentamicin (test code See_Comment S [Auto mated message] = 18) The system [employer] generated this result transmit joann reference range : Susceptible 0-4 , Resistant <0 or >4 . The reference r taurus was not used to interpret this result as normal/abnormal . Imipenem (test code = See_Comment S [Auto mated message] 19) The system [employer] generated this result transmit joann reference range : Susceptible 0-2 , Resistant <0 or >2 . The reference r taurus was not used to interpret this result as normal/abnormal . Levofloxacin (test See_Comment S [Automat ed message] code = 22) The system [employer] generated this result transmit joann reference range : Susceptible 0-1 , Resistant <0 or >1 . The reference r taurus was not used to interpret this result as normal/abnormal . Meropenem (test code See_Comment S [Autom ated message] = 34) The system [employer] generated this result transmit joann reference range : Susceptible 0-2 , Resistant <0 or >2 . The reference r taurus was not used to interpret this result as normal/abnormal . Piperacillin (test See_Comment S [Automat ed message] code = 24) The system [employer] generated this result transmit joann reference range [...] [Auto mated message] = 25) The system [employer] generated this result transmit joann reference range : Susceptible 0-4 , Resistant <0 or >4 . The reference r taurus was not used to interpret this result as normal/abnormal . 3+ Normal respiratory maria del carmen presentSPIN/CONCENTRATION [id number] 11:16:43 Test Item Value Reference Range Interpretation Comments CONCENTRATION CHARGED (BEAKER) (test Done code = 2657) RAD, ABDOMEN/KUB, 1 VIEW [id number] 07:57:00Reason for exam:->[facility] 1975 Sex: MFINAL REPORT RAD, ABDOMEN/KUB, 1 VIEW AP CLINICAL INDICATION: Ileus COMPARISON: 11/30/2021 TECHNIQUE: Single, frontal radiograph of the abdomen. FINDINGS: The bowel gas pattern is nonspecific, but nonobstructive. Stool is present within the left colon and rectum. Evaluation for freeair is limited by portable supine technique. Within these limitations, no free air is identified. Signed: Esperanza Duque MDReport Verified Date/Time: 12/06/2021 07:57:20 Basic Metabolic [id number] 06:04:20 Test Item Value Reference Range Interpretation Comments Sodium (test code = 133 meq/L 136-145 L 2951-2) Potassium (test code = 4.2 meq/L 3.5-5.1 2823-3) Chloride (test code = 106 meq/L 98-107 2075-0) CO2 (test code = 21 meq/L 22-29 L 2028-9) BUN (test code = 13 mg/dL 7-21 3094-0) Creatinine (test code 1.13 mg/dL 0.57-1.25 = 2160-0) Glucose (test code = 89 mg/dL 70-105 2345-7) Calcium (test code = 8.8 mg/dL 8.4-10.2 92341-7) EGFR (test code = 85 mL/min/1.73 sq [place] [address]-1) NOT ACCURATE CREATININE CLEARANCE IN PREDICTING GLOMERULAR FILTRATION RATE . ESTIMATED GFR I S NOT APPLICABLE FOR DIALYSIS PATIENTS. SHANA (test code = SHANA) Child Protective Services Specialist ID - DB Lab Interpretation Abnormal (test code = 13053-0) [facility] [id number] 06:04:20 Test Item Value Reference Range Interpretation [...] S NOT APPLICABLE FOR DIALYSIS PATIEN TS. Child Protective Services Specialist ID - DBCBC (Hemogram only)2021-12-06 05:34:09 Test Item Value Reference Range Interpretation Comments WBC (test code = 6690-2) 6.3 See_Comment [A utomated message] The system [employer] generated this result transmitted ref erence range: 3.5 - 10 .5 K/L. The refe rence range was not u sed to interpret this result as normal/abnor mal. RBC (test code = 789-8) 3.96 See_Comment L [Au tomated message] The system [employer] generated this result transmitted ref erence range: 4.63 - 6 .08 M/L. The refe rence range was not u sed to interpret this result as normal/abnor mal. MCHC (test code = 786-4) 34.3 See_Comment L [A utomated message] The system [employer] generated this result transmitted ref erence range: [...] code = 267 See_Comment [Aut omated message] 667-3) The system [employer] generated this result transmitted ref erence range: 150 - 45 0 K/CU MM. The referen ce range was not u sed to interpret this result as normal/abnor mal. MPV (test code = 10.6 fL 9.4-12.4 81369-8) nRBC (test code = 413) 0 See_Comment [Aut omated message] The system [employer] generated this result transmitted ref erence range: 0 - 0 /1 00 WBC. The refere nce range was not u sed to interpret this result as normal/abnor mal. Lab Interpretation (test Abnormal code = 55812-1) [facility] (Hemogram only)2021-12-06 05:34:09 Test Item Value Reference Range Interpretation Comments WBC (test code = 6690-2) 6.3 See_Comment [A utomated message] The system [employer] generated this result transmitted ref erence range: 3.5 - 10 .5 K/L. The refe rence range was not u sed to interpret this result as normal/abnor mal. RBC (test code = 789-8) 3.96 See_Comment L [Au tomated message] The system [employer] generated this result transmitted ref erence range: 4.63 - 6 .08 M/L. The refe rence range was not u sed to interpret this result as normal/abnor mal. MCHC (test code = 786-4) 34.3 See_Comment L [A utomated message] The system [employer] generated this result transmitted ref erence range: [...] See_Comment [Aut omated message] 777-3) The system [employer] generated this result transmitted ref erence range: 150 - 45 0 K/CU MM. The referen ce range was not u sed to interpret this result as normal/abnor mal. MPV (test code = 10.6 fL 9.4-12.4 26646-2) nRBC (test code = 413) 0 See_Comment [Aut omated message] The system [employer] generated this result transmitted ref erence range: 0 - 0 /1 00 WBC. The refere nce range was not u sed to interpret this result as normal/abnor mal. Lab Interpretation (test Abnormal code = 28708-8) [facility] (HEMOGRAM ONLY)2021-12-06 05:34:09 Test Item Value Reference [...] 0-0 (BEAKER) (test code = 413) POC-Glucose [id number] 17:51:28 Test Item Value Reference Range Interpretation Comments POC-Glucose Meter (test 137 mg/dL 70-110 H : TE STED AT [facility] code = 1538) [address] [facility] [place], [address]: Child Protective Services Specialist/Techni rian ID = [id number] for Мария Lara Lab Interpretation (test Abnormal code = 83428-4) [facility] [id number] 17:51:28 Test Item Value Reference Range Interpretation Comments POC-GLUCOSE METER 137 mg/dL 70-110 H : TESTED A T [facility] 6720 (BEAKER) (test code = JUSTINE Ha [facility], 1538) [address]: Child Protective Services Specialist/Techni rian ID = [id number] for Мария Barroso SARS-CoV2/RT-PCR (Asymptomatic ONLY)2021-12-05 17:31:06 Test Item Value Reference Range Interpretation Comments SARS-COV2/RT-PCR Negative Not Detected, (test code = Negative, See 66555-7) external report for linked test SARS-COV-2 [facility] TERI PERFORMING LAB (test code = 05447-8) SHANA (test code = Negative result for [...] of the Act. Fact Sheet for Healthcare Providers:https://www.YouCastr/sites/default/f laureano/product/documents/F act_Sheet_HC_Providers_L umw_QMXF-PeF-8.pdf Fact Sheet for Healthcare Patients:https://www.Mobile Patrol/sites/default/fi les/product/documents/Fa ct_Sheet_Patients_Lyra_S ARS-CoV-2.pdf Performing Laboratory:[facility] [place] [address] [facility] HospitalARS-COV2/RT-PCR ([facility])2021-12-05 17:31:06 Test Item Value Reference Range Interpretation Comments SARS-COV2/RT-PCR (test Negative Not Detected, Negative, code = 1959733) See external report for linked test SARS-COV-2 PERFORMING LAB [facility] TERI (test code = 5596642) Negative result for this test determines that [...] of the Act.Fact Sheet for Healthcare Prov iders:https://www.Ablynx/sites/default/files/product/documents/Fact_Sheet_HC _Qzmwhzerx_Wxgl_IGLO-DhD-5.pdfFact Sheet for Healthcare Patients:https://www.Ablynx/sites/default/files/product/docume nts/Xnvz_Jhgio_Mffjlvqu_Oepm_OXCU-NvI-6.pdfPerforming Laboratory:[facility], [place] [address]KI, [id number] 10:17:00Unlisted Reason for Exam - Click Yes and Enter Reason Below->NoIs this for enterography?->NoWill this procedure require oral contrast?->No [facility] : 1975 Sex: [...] Verified Date/Time: 12/05/2021 10:17:33 Reading Location: [facility] C013X Ortho Consult Reading Room Comprehensive metabolic [id number] 08:12:08 Test Item Value Reference Range Interpretation Comments Protein, Total (test 7.8 See_Comment [Autom ated code = 2885-2) message] The system which generated this result transmit joann reference range : 6.0 - 8.3 gm/dL . The reference range was not u sed to interpret th is result as normal/abnormal . Albumin (test code = 4.2 g/dL 3.5-5.0 68027-7) Alkaline Phosphatase 94 U/L 40-150 (test code = 6768-6) Total Bilirubin (test 1.0 mg/dL 0.2-1.2 code = 1975-2) Sodium (test code = 133 meq/L 136-145 L 2951-2) Potassium (test code 4.0 meq/L 3.5-5.1 = 2823-3) Chloride (test code = 108 meq/L 98-107 H 2074-0) CO2 (test code = 19 meq/L 22-29 L 2027-9) BUN (test code = 22 mg/dL 7-21 H 3094-0) Creatinine (test code 1.20 mg/dL 0.57-1.25 = 2160-0) Glucose (test code = 127 mg/dL 70-105 H 2345-7) Calcium (test code = 9.4 mg/dL 8.4-10.2 46009-4) AST (test code = 15 U/L 5-34 1920-8) ALT (test code = 14 U/L 6-55 1742-6) EGFR (test code = 79 mL/min/1.[place] [address]-6) NOT ACCURATE CREATININE CLEARANCE IN PREDICTING GLOMERULAR FILTRATION RATE . ESTIMATED GFR I S NOT APPLICABLE FOR DIALYSIS PATIEN TS. SHANA (test code = SHANA) Child Protective Services Specialist ID - NEIL M Lab Interpretation Abnormal (test code = 47985-6) [facility] 08:12:08 Test Item Value Reference Range Interpretation Comments Lipase (test code = 4 U/L 8-78 L 3040-3) SHANA (test code = SHANA) Child Protective Services Specialist ID - NEIL M Lab Interpretation (test Abnormal code = 51799-9) [facility] [id number] 08:12:08 Test Item Value Reference Range Interpretation [...] 8.4-10.2 (test code = 697) AST (SGOT) (CLARKAKER) 15 U/L 5-34 (test code = 353) ALT (SGPT) (CLARKAKER) 14 U/L 6-55 (test code = 347) EGFR (CLARKAKER) (test 79 mL/min/1.73 ESTIMA JOANN GFR IS code = 1092) sq m NOT ACCURATE CREATININE CLEARANCE IN PREDICTING GLOMERULAR FILTRATION RATE . ESTIMATED GFR I S NOT APPLICABLE FOR DIALYSIS PATIEN TS. Child Protective Services Specialist ID - NEIL [id number] 08:12:08 Test Item Value Reference Range Interpretation Comments LIPASE (DWAYNE) (test code = 749) 4 U/L 8-78 L Child Protective Services Specialist ID - NEIL MCBC with platelet count + automated [id number] 07:54:26 Test Item Value Reference Range Interpretation Comments WBC (test code = 6690-2) 7.2 See_Comment [A utomated message] The system [employer] generated this result transmitted ref erence range: 3.5 - 10 .5 K/L. The refe rence range was not u sed to interpret this result as normal/abnor mal. RBC (test code = 789-8) 4.53 See_Comment L [Au tomated message] The system [employer] generated this result transmitted ref erence range: 4.63 - 6 .08 M/L. The refe rence range was not u sed to interpret this result as normal/abnor mal. MCHC (test code = 786-4) 32.0 See_Comment L [A utomated message] The system [employer] generated this result transmitted ref erence range: [...] See_Comment [Aut omated message] 777-3) The system [employer] generated this result transmitted ref erence range: 150 - 45 0 K/CU MM. The referen ce range was not u sed to interpret this result as normal/abnor mal. MPV (test code = 10.4 fL 9.4-12.4 40877-7) nRBC (test code = 413) 0 See_Comment [Aut omated message] The system [employer] generated this result transmitted ref erence range: [...] See_Comment [Aut omated message] 670) The system [employer] generated this result transmitted ref erence range: 1.78 - 5 .38 K/L. The refe rence range was not u sed to interpret this result as normal/abnor mal. # Lymphs (test code = 1.62 See_Comment [Auto mated message] 414) The system [employer] generated this result transmitted ref erence range: 1.32 - 3 .57 K/L. The refe rence range was not u sed to interpret this result as normal/abnor mal. # Monos (test code = 0.83 See_Comment H [Autom ated message] 415) The system [employer] generated this result transmitted ref erence range: 0.30 - 0 .82 K/L. The refe rence range was not u sed to interpret this result as normal/abnor mal. # Eos (test code = 416) 0.14 See_Comment [Au tomated message] The system [employer] generated this result transmitted ref erence range: 0.04 - 0 .54 K/L. The refe rence range was not u sed to interpret this result as normal/abnor mal. # Baso (test code = 417) 0.05 See_Comment [A utomated message] The system [employer] generated this result transmitted ref erence range: 0.01 - 0 .08 K/L. The refe rence range was not u sed to interpret this result as normal/abnor mal. Immature 0 % 0-1 Granulocytes-Relative (test code = 2801) Lab Interpretation (test Abnormal code = 26685-8) [facility] W/PLT COUNT & AUTO [id number] 07:54:26 Test Item Value Reference Range Interpretation [...] code = 2801) RAD, ABDOMEN/KUB, 1 VIEW [id number] 14:09:00Reason for exam:->assess for improvement in bowel distension and stool burden [facility] : 1975 Sex: [...] MDReport Verified Date/Time: 11/30/2021 14:09:22 Reading Location: [facility] Radiology Reading Room BASI METABOLIC [id number] 09:26:15 Test Item Value Reference Range Interpretation [...] S NOT APPLICABLE FOR DIALYSIS PATIEN TS. Child Protective Services Specialist ID - DBBASIC METABOLIC [id number] 06:08:04 Test Item Value Reference Range Interpretation [...] S NOT APPLICABLE FOR DIALYSIS PATIEN TS. Child Protective Services Specialist ID - BSCBC W/PLT COUNT & AUTO [id number] 05:40:30 Test Item Value Reference Range Interpretation [...] PERCENT (BEAKER) (test code = 2801) SARS-COV2/RT-PCR ([facility])2021-11-25 10:17:30 Test Item Value Reference Range Interpretation Comments SARS-COV2/RT-PCR (test Negative Not Detected, Negative, code = 4199124) See external report for linked test SARS-COV-2 PERFORMING LAB [facility] TERI (test code = 8969573) Negative result for this test determines that [...] of the Act.Fact Sheet for Healthcare Prov iders:https://www.Factory Logic.com/sites/default/files/product/documents/Fact_Sheet_HC _Tbbnblefd_Bivu_XNYZ-SjO-2.pdfFact Sheet for Healthcare Patients:https://www.Factory Logic.com/sites/default/files/product/docume nts/Nxcy_Cskla_Fuisrnec_Xtbd_JRDJ-QvJ-4.pdfPerforming Laboratory:[place] [address], [place] [address]XT, [id number] 03:54:00Unlisted Reason for Exam - Click Yes and Enter Reason Below->NoIs this for enterography?->NoWill this procedure require oral contrast?->No [facility] 1975 Sex: MFINAL [...] Vizcarra MDRepor t Verified Date/Time: 11/25/2021 03:54:25 [id number] 02:50:36 Test Item Value Reference Range Interpretation Comments LIPASE (BEAKER) (test code = 749) < U/L 8-78 L Child Protective Services Specialist ID - BSOperator ID - NEIL MHigh Sens Trop I ([facility]/Luisa Only) 2021-11-25 01:59:11 Test Item Value Reference Range Interpretation Comments Troponin I HS (test <4 See_Comment [Automa joann code = 22315-3) message] The system which generated this result transmitted reference range : <=35 pg/ml. The reference range was not used to interpret this result as normal/abnormal . SHANA (test code = Child Protective Services Specialist ID - SHANA) BSThe BODY DESIGNER STAT High Sensitivity Troponin-I results should be used in conjunction with other diagnostic information such as ECG, clinical observations and information, and patient symptoms to aid in the diagnosis of [place]. Lab Interpretation Normal (test code = 40640-4) [facility]2021-11-25 01:59:11 Test Item Value Reference Range Interpretation Comments Troponin I HS (test <4 See_Comment [Automa joann code = 20425-8) message] The system which generated this result transmitted reference range : <=35 pg/ml. The reference range was not used to interpret this result as normal/abnormal . SHANA (test code = Child Protective Services Specialist ID - SHANA) BSThe BODY DESIGNER STAT High Sensitivity Troponin-I results should be used in conjunction with other diagnostic information such as ECG, clinical observations and information, and patient symptoms to aid in the diagnosis of [place]. Lab Interpretation Normal (test code = 88861-3) [facility]2021-11-25 01:59:11 Test Item Value Reference Range Interpretation Comments Troponin I HS (test <4 See_Comment [Automa joann code = 70740-1) message] The system which generated this result transmitted reference range : <=35 pg/ml. The reference range was not used to interpret this result as normal/abnormal . SHANA (test code = Child Protective Services Specialist ID - SHANA) BSThe BODY DESIGNER STAT High Sensitivity Troponin-I results should be used in conjunction with other diagnostic information such as ECG, clinical observations and information, and patient symptoms to aid in the diagnosis of [place]. Lab Interpretation Normal (test code = 58686-1) [facility]2021-11-25 01:59:11 Test Item Value Reference Range Interpretation Comments Troponin I HS (test <4 See_Comment [Automa joann code = 05872-3) message] The system which generated this result transmitted reference range : <=35 pg/ml. The reference range was not used to interpret this result as normal/abnormal . SHANA (test code = Child Protective Services Specialist ID - SHANA) BSThe BODY DESIGNER STAT High Sensitivity Troponin-I results should be used in conjunction with other diagnostic information such as ECG, clinical observations and information, and patient symptoms to aid in the diagnosis of [place]. Lab Interpretation Normal (test code = 54511-6) [facility] ([facility]/Luisa Only)2021-11-25 01:59:11 Test Item Value Reference Range Interpretation Comments Troponin I HS (test <4 See_Comment [Automa joann code = 54215-9) message] The system which generated this result transmitted reference range : <=35 pg/ml. The reference range was not used to interpret this result as normal/abnormal . SHANA (test code = Child Protective Services Specialist ID - SHANA) BSThe BODY DESIGNER STAT High Sensitivity Troponin-I results should be used in conjunction with other diagnostic information such as ECG, clinical observations and information, and patient symptoms to aid in the diagnosis of [place]. Lab Interpretation Normal (test code = 92074-6) [facility] TROPONIN [id number] 01:59:11 Test Item Value Reference Range Interpretation Comments HIGH SENSITIVITY < pg/ml See_Comment [Automated message] TROPONIN I (test code = The system which 3812434) generated this result transmitted ref erence range: <=35. Th e reference range was not used to interpr et this result as normal/abnormal . Child Protective Services Specialist ID - BSThe BODY DESIGNER STAT High Sensitivity Troponin-I results should be used in conjunctionwith other diagnostic information such as ECG, clinical observations and information, and patient symptoms to aid in the diagnosis of [place].[id number] 01:52:12 Test Item Value Reference Range Interpretation Comments Magnesium (test code = 1.7 mg/dL 1.6-2.6 Speci men 37441-6) slightly hemolyzed SHANA (test code = SHANA) Child Protective Services Specialist ID - BS Lab Interpretation Normal (test code = 31419-1) [facility] [id number] 01:52:12 Test Item Value Reference Range Interpretation Comments MAGNESIUM (BEAKER) 1.7 mg/dL 1.6-2.6 Specimen slightly (test code = 627) hemolyzed Child Protective Services Specialist ID - BSCOMPREHENSIVE METABOLIC [id number] 01:52:12 Test Item Value Reference Range Interpretation [...] S NOT APPLICABLE FOR DIALYSIS PATIEN TS. Child Protective Services Specialist ID - BSCBC W/PLT COUNT & AUTO [id number] 01:21:26 Test Item Value Reference Range Interpretation [...] PERCENT (BEAKER) (test code = 2801) Urine [id number] 12:15:43 Test Item Value Reference Range Interpretation Comments Result (test code = 6463-4) No growth [facility] CenterU[facility] [id number] 12:15:43 Test Item Value Reference Range Interpretation Comments Result (test code = 6463-4) No growth [facility] Center[facility] [id number] 12:15:43 Test Item Value Reference Range Interpretation Comments CULTURE (BEAKER) (test code = 1095) No growth SARS-COV2/RT-PCR ([facility])2021-11-14 08:14:56 Test Item Value Reference Range Interpretation Comments SARS-COV2/RT-PCR (test Negative Not Detected, Negative, code = 8903299) See external report for linked test SARS-COV-2 PERFORMING LAB [facility] (test code = 4828032) Negative result for this test determines that [...] of the Act.Fact Sheet for Healthcare Prov iders:https://www.Ablynx/sites/default/files/product/documents/Fact_Sheet_HC _Mjdxpcfjf_Jdna_HJLM-UwN-2.pdfFact Sheet for Healthcare Patients:https://www.Ablynx/sites/default/files/product/docume nts/Vxqb_Ayeoi_Rapmejnq_Kjqc_HSWI-QhF-8.pdfPerforming Laboratory:[facility], [place] [address]BK, [id number] 00:42:00Unlisted Reason for Exam - Click Yes and Enter Reason Below->NoIs this for enterography?->NoWill this procedure require oral contrast?->No [facility] : 1975 Sex: [...] MDReport Verified Date/Time: 11/14/2021 00:42:44 COMPREHENSIVE METABOLIC [id number] 23:34:07 Test Item Value Reference Range Interpretation [...] S NOT APPLICABLE FOR DIALYSIS PATIEN TS. Child Protective Services Specialist ID - [id number] 23:34:07 Test Item Value Reference Range Interpretation Comments LIPASE (BEAKER) (test code = 749) 5 U/L 8-78 L Child Protective Services Specialist ID - [id number] 23:34:06 Test Item Value Reference Range Interpretation Comments MAGNESIUM (BEAKER) 1.5 mg/dL 1.6-2.6 L Specimen slightly (test code = 627) hemolyzed Child Protective Services Specialist ID - DBUrinalysis w/Microscopic + Reflex to [id number] 23:00:38 Test Item Value Reference Range Interpretation Comments Color, UA (test code Yellow = 5778-6) Clarity, UA (test Clear code = 5767-9) Specific Alva, UA 1.024 1.001-1.035 (test code = 5811-5) pH, UA (test code = 6.0 5.0-8.0 5803-2) Protein, UA (test Negative Negative code = 63189-6) Glucose, UA (test Negative Negative code = 365) Ketones, UA (test Negative Negative code = 2514-8) Bilirubin, UA (test Negative Negative code = 29361-0) Blood, UA (test code Negative Negative = 24643-7) Nitrite, UA (test Negative Negative code = 5802-4) Leukocytes, UA (test Negative Negative code = 5799-2) Urobilinogen, UA 2.0 mg/dL 0.2-1.0 H (test code = 05347-8) RBC, UA (test code = <1 See_Comment [Autom ated 54882-3) message] The system which generated this result [...] Bacteria, UA (test None Seen code = 02324-1) Crystals, Urine (test None Seen code = 80619-3) Amorphous Crystals Occasional (test code = 93576-6) Specimen Source (test code = 2795) SHANA (test code = SHANA) Child Protective Services Specialist ID - [auto]Child Protective Services Specialist ID - tech Lab Interpretation Abnormal (test code = 35067-5) [facility] [id number] 23:00:38 Test Item Value Reference Range Interpretation [...] = 1584) SOURCE(BEAKER) (test code = 2795) Child Protective Services Specialist ID - [auto]Child Protective Services Specialist ID - techRAD, CHEST, 1 VIEW, NON [id number] 22:26:00Reason for exam:->ABDOMINAL PAINShould this be performed at the bedside?->Yes[facility] : 1975 Sex: MFINAL REPORT Chest, 1 view. History: Abdominal pain Comparison: Plain radiographthe chest dated 01/06/2021. Findings: The cardiomediastinal silhouette and pulmonary vasculature are within normal limits for a portable exam. The lungs are clear without evidence of consolidation or effusion. The soft tissues and osseous structures are intact. IMPRESSION: No acute cardiopulmonary abnor mality. Signed: Sofiya Dingthe [facility] of [facility] Verified Date/Time: 11/13/2021 22:26:25 RAD, ABDOMEN/KUB, 1 VIEW [id number] 22:25:00Reason for exam:- >ABDOMINAL PAINShould this be performed at the bedside?->Yes [facility] 1975 Sex: MFINAL [...] 11/13/2021 22:25:42 CBC W/PLT COUNT & AUTO [id number] 22:21:01 Test Item Value Reference Range Interpretation [...] 0-1 PERCENT (BEAKER) (test code = 2801) [id number] 06:27:23 Test Item Value Reference Range Interpretation Comments Phosphorus (test code = 3.2 mg/dL 2.3-4.7 2777-1) SHANA (test code = SHANA) Child Protective Services Specialist ID - NEIL M Lab Interpretation (test Normal code = 12014-4) [facility]2021-[facility]-28 06:27:23 Test Item Value Reference Range Interpretation Comments PHOSPHORUS (BEAKER) (test code = 3.2 mg/dL 2.3-4.7 604) Child Protective Services Specialist ID - NEIL MBASIC METABOLIC [id number] 06:27:22 Test Item Value Reference Range Interpretation [...] S NOT APPLICABLE FOR DIALYSIS PATIEN TS. Child Protective Services Specialist ID - NEIL [id number] 06:27:22 Test Item Value Reference Range Interpretation Comments MAGNESIUM (BEAKER) (test code = 1.7 mg/dL 1.6-2.6 627) Child Protective Services Specialist ID - NEIL MRAD, ABDOMEN/KUB, 1 VIEW [id number] 12:37:00Reason for exam:->Admitted for DIOSShould this be performed at the bedside?->Yes [facility] 1975 Sex: MFINAL [...] limitations, no free air is identified. Signed: Esperanaz Duque MDReport Verified Date/Time: 08/05/2021 12:37:21 Reading Location:[facility] Radiology Reading Room Electronically signed by: ESPERANZA DUQUE MD on 2020 12:37 PMBASIC METABOLIC [id number] 12:20:42 Test Item Value Reference Range Interpretation [...] S NOT APPLICABLE FOR DIALYSIS PATIEN TS. Child Protective Services Specialist ID - NEIL [id number] 08:22:00 Test Item Value Reference Range Interpretation Comments MAGNESIUM (BEAKER) (test code = 1.5 mg/dL 1.6-2.6 L 627) Child Protective Services Specialist ID Onofre TREJO [id number] 08:22:00 Test Item Value Reference Range Interpretation Comments PHOSPHORUS (BEAKER) (test code = 1.6 mg/dL 2.3-4.7 L 604) Child Protective Services Specialist HODA TREJO MBASIC METABOLIC [id number] 11:56:45 Test Item Value Reference Range Interpretation [...] S NOT APPLICABLE FOR DIALYSIS PATIEN TS. Child Protective Services Specialist ID Onofre CORNELL Dearacecelia HODA CORNELL [id number] 10:34:21 Test Item Value Reference Range Interpretation Comments PHOSPHORUS (BEAKER) (test code = 2.4 mg/dL 2.3-4.7 604) Child Protective Services Specialist ID - ANETA [id number] 10:34:20 Test Item Value Reference Range Interpretation Comments MAGNESIUM (BEAKER) (test code = 1.6 mg/dL 1.6-2.6 627) Child Protective Services Specialist ID Onofre CORNELL [id number] 11:42:47 Test Item Value Reference Range Interpretation Comments PHOSPHORUS (BEAKER) 2.8 mg/dL 2.3-4.7 Specimen slightly (test code = 604) hemolyzed Child Protective Services Specialist ID - ANETA [id number] 05:42:53 Test Item Value Reference Range Interpretation Comments MAGNESIUM (BEAKER) 1.4 mg/dL 1.6-2.6 L Specimen slightly (test code = 627) hemolyzed Child Protective Services Specialist ID - ANETA LBASIC METABOLIC [id number] 05:42:53 Test Item Value Reference Range Interpretation [...] S NOT APPLICABLE FOR DIALYSIS PATIEN TS. Child Protective Services Specialist ID - ANETA LSARS-COV2/RT-PCR ([facility])2021-08-02 00:15:55 Test Item Value Reference Range Interpretation Comments SARS-COV2/RT-PCR Negative Negative The SARS-Co V-2 target (test code = nucleic acids a re not 0804201) detected in thi s specimen. Negative result [...] revoked sooner. Fact Sheet for Healthcare Providers: https://www.[employer]Documents/Xpert%20Xpress%20SARS%20CoV-2/Fact%20Sheets/302-3802%53YPUW-DKA-6%2 0HEALTHCARE%20PROVIDERS%20FACT%20SHEET.pdf Fact Sheet for Healthcare Patients: https://www.[employer]/Documents/Xpert%20X press%20SARS%20CoV-2/Fact%20Sheets/302-3801%35TFFG-AGX-0%20PATIENT%20FACT%20SHEE T.pdfCT, [id number] 21:01:00Unlisted Reason for Exam - Click Yes and Enter Reason Below->NoWill this procedure require oral contrast?->No [facility] NICOLE GUNNReyna SALAS : 1975 Sex: MFINAL REPORT EXAM: [...] Diffuse peripancreatic fatty atrophy. Signed: Magno Carvajal [facility] Verified Date/Time: 08/01/2021 21:01:39 REHENSIVE METABOLIC [id number] 20:31:25 Test Item Value Reference Range Interpretation [...] S NOT APPLICABLE FOR DIALYSIS PATIEN TS. Child Protective Services Specialist ID - DBOperator ID - NEIL [id number] 19:49:58 Test Item Value Reference Range Interpretation Comments LIPASE (BEAKER) (test code = 749) 4 U/L 8-78 L Child Protective Services Specialist ID - DBCBC W/PLT COUNT & AUTO [id number] 19:24:16 Test Item Value Reference Range Interpretation [...] code = 2801) RAD, ABDOMEN/KUB, 1 VIEW [id number] 11:19:00Reason for exam:->Abdominal pain distentionCH[facility]IA RIVERAWAYNE : 1975 Sex: MFINAL [...] 04/12/2021. Other: No acute osseous abnormality. Signed: Tristen Reagan Verified Date/Time: 04/15/2021 11:19:14 Reading Location: [facility] C013X Ortho Consult Reading Room BASIC METABOLIC [id number] 05:54:00 Test Item Value Reference Range Interpretation [...] S NOT APPLICABLE FOR DIALYSIS PATIEN TS. Child Protective Services Specialist ID - CHAMP [id number] 05:53:00 Test Item Value Reference Range Interpretation Comments MAGNESIUM (BEAKER) (test code = 1.5 mg/dL 1.6-2.6 L 627) Child Protective Services Specialist ID Onofre OAKES [id number] 05:53:00 Test Item Value Reference Range Interpretation Comments PHOSPHORUS (BEAKER) (test code = 2.3 mg/dL 2.3-4.7 604) Child Protective Services Specialist ID Onofre OAKES WCBC W/PLT COUNT & AUTO [id number] 04:46:00 Test Item Value Reference Range Interpretation [...] 0-1 PERCENT (BEAKER) (test code = 2801) [id number] 05:08:00 Test Item Value Reference Range Interpretation Comments MAGNESIUM (BEAKER) (test code = 1.5 mg/dL 1.6-2.6 L 627) Child Protective Services Specialist ID - NEIL [id number] 05:08:00 Test Item Value Reference Range Interpretation Comments PHOSPHORUS (BEAKER) (test code = 2.1 mg/dL 2.3-4.7 L 604) Child Protective Services Specialist ID - NEIL MSARS-COV2/RT-PCR ([facility])2021-04-13 09:33:00 Test Item Value Reference Range Interpretation Comments SARS-COV2/RT-PCR (test Negative Not Detected, Negative, code = 0936346) See external report for linked test SARS-COV-2 PERFORMING LAB [facility] (test code = 0655173) Negative result for this test determines that [...] of the Act.Fact Sheet for Healthcare Prov iders:https://www.Ablynx/sites/default/files/product/documents/Fact_Sheet_HC _Loqhsrujl_Odwu_UTOO-KmL-7.pdfFact Sheet for Healthcare Patients:https://www.Ablynx/sites/default/files/product/docume nts/Ypql_Qkmbf_Yguhacfa_Mfil_NLYX-FrZ-3.pdfPerforming Laboratory:[facility], [place] [address]QB, [id number] 00:22:00Unlisted Reason for Exam - Click Yes and Enter Reason Below->NoWill this procedure require oral contrast?->No [facility] : 1975 Sex: [...] fluoroscopic study. Non obstructing bilateral nephrolithiasis. Signed: Sofiya Ding [facility] Verified Date/Time: 04/13/2021 00:22:00 URINALYSIS W/ REFLEX URINE [id number] 00:21:00 Test Item Value Reference Range Interpretation [...] = 518) SOURCE(BEAKER) (test code = 2795) Child Protective Services Specialist ID - [auto]Child Protective Services Specialist ID - techHIGH SENSITIVITY TROPONIN [id number] 22:05:00 Test Item Value Reference Range Interpretation Comments HIGH SENSITIVITY 5 pg/ml See_Comment [Automated message] TROPONIN I (test code = The system which 1163848) generated this result transmitted ref erence range: <=35. Th e reference range was not used to interpr et this result as normal/abnormal . Child Protective Services Specialist ID - DBThe BODY DESIGNER STAT High Sensitivity Troponin-I results should be used in conjunctionwith other diagnostic information such as ECG, clinical observations and information, and patient symptoms to aid in the diagnosis of [place].[id number] 21:59:00 Test Item Value Reference Range Interpretation Comments LIPASE (BEAKER) (test code = 749) < U/L 8-78 L Child Protective Services Specialist ID - DBCOMPREHENSIVE METABOLIC [id number] 21:57:00 Test Item Value Reference Range Interpretation [...] S NOT APPLICABLE FOR DIALYSIS PATIEN TS. Child Protective Services Specialist ID - DBLACTIC ACID, [id number] 21:42:00 Test Item Value Reference Range Interpretation Comments LACTATE BLOOD VENOUS (2) (BEAKER) 0.59 mmol/L 0.50-2.20 (test code = 2872) Child Protective Services Specialist ID - DBBLOOD GAS, [id number] 21:31:00 Test Item Value Reference Range Interpretation [...] 1819) 21.0 CBC W/PLT COUNT & AUTO [id number] 21:31:00 Test Item Value Reference Range Interpretation [...] (BEAKER) (test code = 2801) CF RESPIRATORY [id number] 12:40:00 Test Item Value Reference Interpretation Comments [...] = 994) seen RAD, ABDOMEN/KUB, 1 VIEW [id number] 07:28:00Reason for exam:->constipation [facility] 1975 Sex: MFINAL REPORT RAD, ABDOMEN/KUB, 1 VIEW AP TECHNIQUE: Supine radiograph(s) of the abdomen and pelvis. HISTORY: constipation COMPARISON: Abdominal radiographs 3 days prior IMPRESSION: Lines and tubes: None Bowel gas pattern: Unchanged nonobstructive bowel gas pattern. Small colonic stool burden. Other: Anastomotic sutures and surgical clip project over the right half of the abdomen Signed: Tristen Reagan Verified Date/Time: 02/24/2021 07:28:09 Reading Location: [facility] Radiology Reading Room RAD, ABDOMEN/KUB, 1 VIEW [id number] 10:44:00Reason for exam:->abdominal pain, [facility] : 1975 Sex: [...] MDReport Verified Date/Time: 02/21/2021 10:44:09 Reading Location: [facility] B1 C013V Neuro Reading Room SARS-COV2/RT-PCR ([facility])2021-02-20 12:43:00 Test Item Value Reference Range Interpretation Comments SARS-COV2/RT-PCR (test Negative Not Detected, Negative, code = 1831281) See external report for linked test SARS-COV-2 PERFORMING LAB [facility] (test code = 4047712) Negative result for this test determines that [...] of the Act.Fact Sheet for Healthcare Prov iders:https://www.[employer]/sites/default/files/product/documents/Fact_Sheet_HC _Gzllgqtlc_Noxj_TAMS-YyT-1.pdfFact Sheet for Healthcare Patients:https://www.[employer]/sites/default/files/product/docume nts/Gnay_Uzxbt_Ovucdeue_Oqyq_VTKY-DpR-2.pdfPerforming Laboratory:[facility], [place] [address]OUBQY METABOLIC PANEL 2021-02-20 04:46:00 Test Item Value [...] S NOT APPLICABLE FOR DIALYSIS PATIEN TS. Child Protective Services Specialist ID - EDASICBC W/PLT COUNT & AUTO [id number] 04:23:00 Test Item Value Reference Range Interpretation [...] PERCENT (BEAKER) (test code = 2801) CT, [id number] 21:22:00Unlisted Reason for Exam - Click Yes and Enter Reason Below->YesUnlisted Reason for Exam->abd pain, bloating, constipation. hx of SBOWill this procedure require oral contrast?->No [facility] : 1975 Sex: [...] renal stones.Diffuse pancreatic fatty atrophy. Signed: Magno Carvajla MDReport Verified Date/Time: 02/19/2021 21:22:04 [id number] 18:22:00 Test Item Value Reference Range Interpretation Comments LIPASE (BEAKER) (test code = 749) < U/L 8-78 L Child Protective Services Specialist ID - DBBASIC METABOLIC [id number] 18:21:00 Test Item Value Reference Range Interpretation [...] S NOT APPLICABLE FOR DIALYSIS PATIEN TS. Child Protective Services Specialist ID - DBHEPATIC FUNCTION [id number] 18:21:00 Test Item Value Reference Range Interpretation [...] Specimen slightly (test code = 347) hemolyzed Child Protective Services Specialist ID - DBLACTIC ACID, [id number] 18:05:00 Test Item Value Reference Range Interpretation Comments LACTATE BLOOD VENOUS 1.04 mmol/L 0.50-2.20 Specime n slightly (2) (BEAKER) (test hemolyzed code = 2872) Child Protective Services Specialist ID - DBCBC W/PLT COUNT & AUTO [id number] 17:58:00 Test Item Value Reference Range Interpretation [...] code = 2801) RAD, ABDOMEN/KUB, 1 VIEW [id number] 17:30:00Reason for exam:->abd pain, bloated, hx of SBO [facility] 1975 Sex: MFINAL [...] Verified Date/Time: 02/19/2021 17:30:23 FUNGUS CULTURE + [id number] 17:04:00 Test Item Value Reference Range Interpretation Comments CULTURE (BEAKER) A <1+ Padilla albicans (test code = 1095) FUNGUS SMEAR No fungi seen (BEAKER) (test code = 1406) CF RESPIRATORY [id number] 10:47:00 Test Item Value Reference Range Interpretation [...] 3+ Normal respiratory maria del carmen presentSPIN/CONCENTRATION [id number] 07:59:00 Test Item Value Reference Range Interpretation Comments CONCENTRATION CHARGED (BEAKER) (test Done code = 2657) RAD, CHEST, 2 [id number] 14:47:00Reason for Exam:->[facility]ystic Fibrosis [facility] 1975 Sex: MFINAL [...] diaphragm. IMPRESSION: No acute thoracic abnormality. 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 Signed: Viet Ortega MDReport Verified Date/Time: 01/06/2021 14:10:03 Reading Location: [facility] Reading Room [address] [place] [address] URINALYSIS W/ REFLEX URINE [id number] 11:26:00 Test Item Value Reference Range Interpretation [...] /HPF 520) SOURCE(BEAKER) (test code = 2795) Child Protective Services Specialist ID - [auto]Child Protective Services Specialist ID - techRAD, ABDOMEN/KUB, 1 VIEW [id number] 10:40:00Reason for exam:->constipation [facility] : 1975 Sex: MFINAL REPORT RAD, ABDOMEN/KUB, 1 VIEW AP CLINICAL INDICATION: constipation COMPARISON: October 17, 2020 TECHNIQUE: Single, frontal radiograph of the abdomen. FINDINGS: The bowel gas pattern is nonspecific, but nonobstructive. No radiographic evidence of constipation. Colon is predominantly air-filled. The regional skeleton is intact. IMPRESSION: Nonspecific, nonobstructive bowel gas pattern. Signed: Esperanza Duque Verified Date/Time: 10/28/2020 10:40:07 Reading Location:[facility] Radiology Reading Room COMPREHENSIVE METABOLIC [id number] 12:47:00 Test Item Value Reference Range Interpretation [...] S NOT APPLICABLE FOR DIALYSIS PATIEN TS. Child Protective Services Specialist ID - HARLEY [id number] 07:34:00 Test Item Value Reference Range Interpretation Comments BLOOD UREA NITROGEN (BEAKER) (test 16 mg/dL 7-21 code = 354) Child Protective Services Specialist ID - ANETA [id number] 07:34:00 Test Item Value Reference Range Interpretation Comments CREATININE (BEAKER) 1.08 mg/dL 0.57-1.25 (test code = 358) EGFR (BEAKER) (test 90 mL/min/1.73 ESTIMA JOANN GFR IS code = 1092) sq m NOT ACCURATE CREATININE CLEARANCE IN PREDICTING GLOMERULAR FILTRATION RATE . ESTIMATED GFR I S NOT APPLICABLE FOR DIALYSIS PATIEN TS. Child Protective Services Specialist ID - PIAYA LPOCT-GLUCOSE [id number] 13:03:00 Test Item Value Reference Range Interpretation Comments POC-GLUCOSE METER 93 mg/dL 70-110 : TESTED A T [facility] 6720 (BEAKER) (test code = [place], 1538) [address]: Child Protective Services Specialist/Techni rian ID = [id number] for BJORN SANCHES [id number] 06:22:00 Test Item Value Reference Range Interpretation Comments BLOOD UREA NITROGEN (BEAKER) (test 20 mg/dL 7-21 code = 354) Child Protective Services Specialist ID - PIAYA [id number] 06:22:00 Test Item Value Reference Range Interpretation Comments CREATININE (BEAKER) 1.12 mg/dL 0.57-1.25 (test code = 358) EGFR (BEAKER) (test 86 mL/min/1.73 ESTIMA JOANN GFR IS code = 1092) sq m NOT ACCURATE CREATININE CLEARANCE IN PREDICTING GLOMERULAR FILTRATION RATE . ESTIMATED GFR I S NOT APPLICABLE FOR DIALYSIS PATIEN TS. Child Protective Services Specialist ID - PIAYA LHEMOGLOBIN [id number] 21:14:00 Test Item Value Reference Range Interpretation Comments HEMOGLOBIN A1C (BEAKER) (test code = 5.6 % 4.3-6.1 368) FL, SMALL BOWEL [id number] 19:16:00Reason for exam:->Rule out ileus or small bowel stricture [facility] MONICA RIVERAReyna SALAS : 1975 Sex: MFINAL REPORT FL, SMALL BOWEL ONLY CLINICAL HISTORY: Rule out ileus or small bowel stricture COMPARISON: Same day CT abdomen and pelvis. TECHNIQUE: A housesmith abdominal radiograph is acquired. The small bowel is evaluated with single contrast technique after oral ingestion of Gastrografin contrast using AP abdominal radiographs. Abdominal radiographs are acquired at 0, 20, 40, 60, and 90 minutes. FINDINGS: The housesmith radiograph demonstrates multiple dilated air- filled loops [...] loops, unchanged from same day CT. Signed: Tristen Reagan Verified Date/Time: 10/25/2020 19:16:52 Reading Location: [facility] C013Y CT Body Reading Room Electronically signed by: Mikey ZUNIGA 10/25/2020 07:16 PMCT, [id number] 09:52:00Reason for exam:->abd pain, constipation, hx of obstuctionWhat is the patient's sedation requirement?->No SedationP[facility] : 1975 Sex: [...] history of infectious or inflammatory enteritis. Signed: Tristen [facility]anthe [facility] Verified Date/Time: 10/25/2020 09:52:20 Reading Location: [place] [address] CT Body Reading Room [id number] 08:43:00 Test Item Value Reference Range Interpretation Comments LIPASE (DWAYNE) (test code = 749) < U/L 8-78 L Child Protective Services Specialist ID - NEIL KINNEYNIN [id number] 08:32:00 Test Item Value Reference Range Interpretation Comments TROPONIN I (DWAYNE) (test code = 397) < ng/mL 0.00-0.03 [...] failure, acidosis, acute neurological disease, and persistent tachyarrhythmia.Child Protective Services Specialist ID - NEIL MBASIC METABOLIC [id number] 08:24:00 Test Item Value Reference Range Interpretation [...] S NOT APPLICABLE FOR DIALYSIS PATIEN TS. Child Protective Services Specialist ID - NEIL MCBC W/PLT COUNT & AUTO [id number] 08:03:00 Test Item Value Reference Range Interpretation [...] (BEAKER) (test code = 2801) BASIC METABOLIC [id number] 07:43:00 Test Item Value Reference Range Interpretation [...] S NOT APPLICABLE FOR DIALYSIS PATIEN TS. Child Protective Services Specialist ID - [id number] 07:43:00 Test Item Value Reference Range Interpretation Comments MAGNESIUM (BEAKER) (test code = 1.7 mg/dL 1.6-2.6 627) Child Protective Services Specialist ID - DBHEPATIC FUNCTION [id number] 07:43:00 Test Item Value Reference Range Interpretation [...] (test code = 13 U/L 6-55 347) Child Protective Services Specialist ID - DBCBC W/PLT COUNT & AUTO [id number] 06:56:00 Test Item Value Reference Range Interpretation [...] PERCENT (BEAKER) (test code = 2801) SARS-COV2/INFLUENZA/RSV [id number] 02:52:00 Test Item Value Reference Range Interpretation Comments SARS-COV2/RT-PCR Negative Negative AA This is a c orrected (test code = result. Previou s result [id number]) was Positive on 2020 at 0123 HEALTH TECHNICAL WRITER INFLUENZA A RT-PCR Negative Negative (test code = 7999203) INFLUENZA B RT-PCR Negative Negative (test code = 1146195) RSV RT-PCR (test Negative Negative Performance of the Xpert code = 2653918) Xpress SARS- CoV-2/Flu/RSV test has only b [...] EUA fo r use by authorized labo ratemmanuel. This test is on ly authorized for [...] sooner.Fact She et for Healthcare Prov iders: https://www.cep heid.com/D ocuments/Xpert% 20Xpress%2 8UWNV-MwJ-5-Flu -RSV/302-4 508%20Rev.%20B% 20HCP%20Fa ct%20Sheet.pdfF act Sheet for Healthcare Patients: https://www.[employer] heid.com/D ocuments/Xpert% 20Xpress%2 5OBME-ArL-6-Flu -RSV/302-4 507%20Rev.%20B% 20Patient% 20Fact%20Sheet. pdf [id number] 22:49:00 Test Item Value Reference Range Interpretation Comments LIPASE (BEAKER) (test code = 749) < U/L 8-78 L Child Protective Services Specialist ID - DBCOMPREHENSIVE METABOLIC [id number] 22:49:00 Test Item Value Reference Range Interpretation [...] S NOT APPLICABLE FOR DIALYSIS PATIEN TS. Child Protective Services Specialist ID - DBCT, [id number] 22:32:00Reason for exam:->ABDOMINAL PAINWhat is the patient's sedation requirement?->No Sedation [facility] 1975 Sex: MFINAL [...] code = 2801) URINALYSIS W/ REFLEX URINE [id number] 21:51:00 Test Item Value Reference Range Interpretation [...] = 518) SOURCE(BEAKER) (test code = 2795) Child Protective Services Specialist ID - [auto]Child Protective Services Specialist ID - lrljRmiyvupvty7821-31-75 05:11:00 Test Item Value Reference Range Interpretation Comments APPEARANCE (test code = Clear Clear 2379951591) COLOR (test code = Yellow Yellow 8520118287) PH (test code = 4.8-8.0 0953301364) SP GRAVITY (test code = 1.003-1.030 4279890690) GLU U QUAL (test code = Normal Normal 7320508607) BLOOD (test code = Negative Negative 5171706646) KETONES (test code = Negative Negative 4002338015) PROTEIN (test code = Negative Negative 2887-8) UROBILIN (test code = Normal Normal 5266541215) BILIRUBIN (test code = Negative Negative 3867783199) NITRITE (test code = Negative Negative 4816164356) LEUK TERRI (test code = Negative Negative 4513149451) RBC/HPF (test code = See_Comment [Autom ated message] 0826086836) The system [employer] generated this result transmitted ref erence range: 0 - 3 HP F. The reference range was not used to int erpret this result as normal/abnormal . WBC/HPF (test code = See_Comment [Autom ated message] 1231196321) The system [employer] generated this result transmitted ref erence range: 0 - 5 HP F. The reference range was not used to int erpret this result as normal/abnormal . BACTERIA (test code = Few Negative A 9976258739) SQ EPITH (test code = <1 HPF 2982244877) Lab Interpretation (test Abnormal code = 14006-1) [facility] [id number] 03:54:00 Test Item Value Reference Range Interpretation Comments TROPONIN I (test <0.012 See_Comment [Automated code = 3107722484) message] The system which generated this result [...] ? Lab Interpretation Normal (test code = 78137-0) [facility] [id number] 03:44:00 Test Item Value Reference Range Interpretation Comments LIPASE (test code = 9760871709) <10 0-220 Lab Interpretation (test code = Normal 49868-7) [facility] Met[facility] (NA, K, CL, CO2, GLUCOSE, BUN, CREATININE, CA)2020-10-19 03:43:00 Test Item Value Reference Range Interpretation Comments NA (test code = 140 mmol/L 135-145 7859658375) K (test code = 4.0 mmol/L 3.5-5 9719235465) CL (test code = 100 mmol/L 98-108 5816428704) CO2 TOTAL (test code = 33 mmol/L 23-31 H 6427331626) AGAP (test code = 2-16 7471527063) BUN (test code = 5 mg/dL 7-23 L 0786271755) GLUCOSE (test code = 109 mg/dL 70-110 5983445821) CREATININE (test code = 1.17 mg/dL 0.6-1.25 8729431889) CALCIUM (test code = 9.5 mg/dL 8.6-10.6 3402855312) eGFR Calculation mL/min/1.73m2 (Non-) (test code = 0923766515) eGFR Calculation mL/min/1.73m2 () (test code = 9199267752) SHANA (test code = SHANA) Association of [...] tests). Lab Interpretation Abnormal (test code = 75889-2) [facility] (ALB, T.PRO, BILI T, BU/BC, ALT, AST, ALK PHOS)2020-10-19 03:43:00 Test Item Value Reference Range Interpretation Comments TOTAL BILI (test code = 8605428092) 1.6 mg/dL 0.1-1.1 H BILI UNCON (test code = 5433582157) 1.6 mg/dL 0.1-1.1 H BILI CONJ (test code = 8578428101) 0.0 mg/dL 0-0.3 T PROTEIN (test code = 2448364801) 7.2 g/dL 6.3-8.2 ALBUMIN (test code = 2514819702) 4.3 g/dL 3.5-5 ALK PHOS (test code = 2847382176) 64 U/L 34-122 ALTv (test code = 1742-6) 17 U/L 5-50 AST(SGOT) (test code = 8582078269) 27 U/L 13-40 Lab Interpretation (test code = Abnormal 35079-7) [facility]COVID[facility] (ID NOW RAPID TESTING)2020-10-19 03:42:00 Test Item Value Reference Range Interpretation Comments SARS-CoV-2 Rapid ID NOW Not Detected Not Detected (test code = 77547-4) SHANA (test code = SHANA) ID NOW COVID-19 Assay is an isothermal nucleic acid amplification test intended for the qualitative detection of nucleic acid from SARS-CoV-2 viral RNA in nasopharyngeal (AIRCRAFT ENGINE TECHNICIAN) specimens. It is used under Emergency Use [...] indicated. Lab Interpretation Normal (test code = 11384-6) [facility] with [id number] 03:28:00 Test Item Value Reference Range Interpretation Comments WBC (test code = See_Comment [Automated 2339-2) message] The sy stem which generated this result transmitted reference range : 4.20 - 10.70 10*3/?L. The reference range was not used to interpret this result as normal/abnormal . RBC (test code = See_Comment L [Automated 494-8) message] The sy stem which generated this [...] RDW-SD (test code = 44.1 fL 38.5-51.6 65796-2) RDW-CV (test code = 12.9 % 12.1-15.4 788-0) PLT (test code = See_Comment [Automated 777-3) message] The sy stem which generated this result transmitted reference range : 150 - 328 10*3/ ?L. The reference r taurus was not used to interpret this result as normal/abnormal . MPV (test code = 11.8 fL 9.8-13 79112-4) NRBC/100 WBC (test See_Comment [Automat ed code = 3122136192) message] The system which generated this result transmitted reference range : 0.0 - 10.0 /100 WBCs. The refer ence range was not u sed to interpret th is result as normal/abnormal . NRBC x10^3 (test code <0.01 See_Comment [Auto mated = 9171487087) message] The s ystem which generated this result transmitted reference range : 10*3/?L. The reference range was not used to interpret this result as normal/abnormal . GRAN MAT (NEUT) % 54.1 % (test code = 770-8) IMM GRAN % (test code 0.20 % = 9221529048) LYMPH % (test code = 30.0 % 736-9) MONO % (test code = 11.6 % 5905-5) EOS % (test code = 3.6 % 713-8) BASO % (test code = 0.5 % 706-2) GRAN MAT x10^3(ANC) 3.28 10*3/uL 1.99-6.95 (test code = 4337727067) IMM GRAN x10^3 (test <0.03 0-0.06 code = 5673402177) LYMPH x10^3 (test code 1.82 10*3/uL 1.09-3.23 = 731-0) MONO x10^3 (test code 0.70 10*3/uL 0.36-1.02 = 742-7) EOS x10^3 (test code = 0.22 10*3/uL 0.06-0.53 711-2) BASO x10^3 (test code 0.03 10*3/uL 0.01-0.09 = 704-7) Lab Interpretation Abnormal (test code = 70703-5) [facility] MET[facility]OLIC [id number] 05:05:00 Test Item Value Reference Range Interpretation [...] S NOT APPLICABLE FOR DIALYSIS PATIEN TS. Child Protective Services Specialist ID - [id number] 05:05:00 Test Item Value Reference Range Interpretation Comments MAGNESIUM (BEAKER) (test code = 1.6 mg/dL 1.6-2.6 627) Child Protective Services Specialist ID - ABHISHEKRAD, ABDOMEN/KUB, 1 VIEW [id number] 15:41:00Reason for exam:->abdominal pain [facility] 1975 Sex: MFINAL REPORT RAD, ABDOMEN/KUB, 1 VIEW AP CLINICAL INDICATION: abdominal pain COMPARISON: June 08, 2020 TECHNIQUE: Single, frontal radiograph of the abdomen. IMPRESSION: The bowel gas pattern dilated loops of small and large bowel. Appearance favors ileus. No visible pneumatosis. The regional skeleton is intact. Signed: JR Burk Robert MDReport Verified Date/Time: 10/17/2020 15:41:19 Reading Location: [facility] Radiology Reading Room BASI METABOLIC PANEL 2020-10-17 07:22:00 Test Item Value [...] S NOT APPLICABLE FOR DIALYSIS PATIEN TS. Child Protective Services Specialist ID - PIAYA [id number] 07:22:00 Test Item Value Reference Range Interpretation Comments MAGNESIUM (BEAKER) (test code = 2.0 mg/dL 1.6-2.6 627) Child Protective Services Specialist ID - ANETA LCBC W/PLT COUNT & AUTO [id number] 06:22:00 Test Item Value Reference Range Interpretation [...] (BEAKER) (test code = 2801) BASIC METABOLIC [id number] 05:42:00 Test Item Value Reference Range Interpretation [...] S NOT APPLICABLE FOR DIALYSIS PATIEN TS. Child Protective Services Specialist ID - NEIL [id number] 05:42:00 Test Item Value Reference Range Interpretation Comments MAGNESIUM (BEAKER) (test code = 1.4 mg/dL 1.6-2.6 L 627) Child Protective Services Specialist ID - NEIL MCBC W/PLT COUNT & AUTO [id number] 04:47:00 Test Item Value Reference Range Interpretation [...] PERCENT (BEAKER) (test code = 2801) SARS-COV2/RT-PCR ([facility])2020-10-15 13:08:00 Test Item Value Reference Range Interpretation Comments SARS-COV2/RT-PCR (test Negative Not Detected, Negative, code = 6594765) See external report for linked test SARS-COV-2 PERFORMING LAB [facility] (test code = 9858509) Negative result for this test determines that [...] of the Act.Fact Sheet for Healthcare Prov iders:https://www.Ablynx/sites/default/files/product/documents/Fact_Sheet_HC _Xqwskfwpg_Kvtr_IWDA-EiF-9.pdfFact Sheet for Healthcare Patients:https://www.[employer]/sites/default/files/product/docume nts/Uccg_Zwzyc_Pkdwivbe_Klqh_AZSM-MyI-4.pdfPerforming Laboratory:[facility], [place] [address]BU, [id number] 03:01:00Reason for exam:->ABDOMINAL PAINWhat is the patient's sedation requirement?->No Sedation [facility] : 1975 Sex: MFINAL REPORT [...] study.Non obstructing bilateral nephrolithiasis.Fatty atrophy pancreas. Signed: Sofiya Ding [facility] Verified Date/Time: 10/15/2020 03:01:22 [id number] 02:35:00 Test Item Value Reference Range Interpretation Comments LIPASE (BEAKER) (test code = 749) < U/L 8-78 L Child Protective Services Specialist ID - ANETA Decker ID - ANETA LOperacecelia ID - ADMINCOMPREHENSIVE METABOLIC [id number] 01:16:00 Test Item Value Reference Range Interpretation [...] S NOT APPLICABLE FOR DIALYSIS PATIEN TS. Child Protective Services Specialist ID - PIAYA LCBC W/PLT COUNT & AUTO [id number] 00:41:00 Test Item Value Reference Range Interpretation [...] (BEAKER) (test code = 2801) BASIC METABOLIC [id number] 07:08:00 Test Item Value Reference Range Interpretation [...] S NOT APPLICABLE FOR DIALYSIS PATIEN TS. Child Protective Services Specialist ID - NTPCBC W/PLT COUNT & AUTO [id number] 06:29:00 Test Item Value Reference Range Interpretation [...] (BEAKER) (test code = 2801) BASIC METABOLIC [id number] 06:39:00 Test Item Value Reference Range Interpretation [...] S NOT APPLICABLE FOR DIALYSIS PATIEN TS. Child Protective Services Specialist ID - EDASISpecimen slightly ictericCBC W/PLT COUNT & AUTO [id number] 06:08:00 Test Item Value Reference Range Interpretation [...] (BEAKER) (test code = 2801) BASIC METABOLIC [id number] 06:45:00 Test Item Value Reference Range Interpretation [...] S NOT APPLICABLE FOR DIALYSIS PATIEN TS. Child Protective Services Specialist ID - PIAYA LSpecimen slightly ictericCBC W/PLT COUNT & AUTO [id number] 06:28:00 Test Item Value Reference Range Interpretation [...] (BEAKER) (test code = 2801) LACTIC ACID, [id number] 06:25:00 Test Item Value Reference Range Interpretation Comments LACTATE BLOOD VENOUS (2) (BEAKER) 0.80 mmol/L 0.50-2.20 (test code = 2872) Child Protective Services Specialist ID - PIAYA LSpecimen slightly ictericLACTIC ACID, [id number] 00:07:00 Test Item Value Reference Range Interpretation Comments LACTATE BLOOD VENOUS (2) (BEAKER) 0.77 mmol/L 0.50-2.20 (test code = 2872) Child Protective Services Specialist ID - ANETA HEACTIC ACID, [id number] 18:08:00 Test Item Value Reference Range Interpretation Comments LACTATE BLOOD VENOUS (2) (BEAKER) 1.35 mmol/L 0.50-2.20 (test code = 2872) Child Protective Services Specialist ID - DBFL, UGI, WITH SMALL [id number] 11:59:00Upper GI with small bowel follow throughReason [...] rectum with a prominent sigmoid colon. Signed: Emmanuel Murrell [facility] Verified Date/Time: 06/08/2020 11:59:48 Reading Location: [facility] C013Y CT Body Reading Room RAD, ABDOMEN/KUB, 1 VIEW [id number] 09:30:00Reason for exam:->NGT, SBOFINAL REPORT TECHNIQUE: Single [...] Surgical carlos in the right abdomen. Signed: Emmanuel Murrell MDReport Verified Date/Time: 06/08/2020 09:30:43 Reading Location: [facility] B1 C013Y CT Body Reading Room PROTHROMBIN TIME/[id number] 04:30:00 Test Item Value Reference Range Interpretation [...] is 2.5-3.5 for patients wiht mechanical heart valves.[id number] 04:09:00 Test Item Value Reference Range Interpretation Comments MAGNESIUM (BEAKER) (test code = 1.6 mg/dL 1.6-2.6 627) Child Protective Services Specialist ID - PIAYA LBASIC METABOLIC [id number] 04:09:00 Test Item Value Reference Range Interpretation [...] S NOT APPLICABLE FOR DIALYSIS PATIEN TS. Child Protective Services Specialist ID - SANGITAHANS LURINALYSIS W/ REFLEX URINE [id number] 03:52:00 Test Item Value Reference Range Interpretation [...] /LPF 514) SOURCE(BEAKER) (test code = 2795) Child Protective Services Specialist ID - [auto]Child Protective Services Specialist ID - techLACTIC ACID, [id number] 03:31:00 Test Item Value Reference Range Interpretation Comments LACTATE BLOOD VENOUS (2) (BEAKER) 0.52 mmol/L 0.50-2.20 (test code = 2872) Child Protective Services Specialist ID - ANETA LCT, [id number] 00:01:00Unlisted Reason for Exam - Click Yes [...] Carvajal MDReport Verified Date/Time: 06/08/2020 00:01:48 SARS-COV2/RT-PCR ([facility]) 2020-06-07 22:51:00 Test Item Value Reference Range Interpretation Comments SARS-COV2/RT-PCR (test code Negative Not Detected, Negative, = 7404135) See external report for linked test SARS-COV-2 PERFORMING LAB [facility] (test code = 0362078) Negative results do not preclude SARS-CoV-2 infection [...] of the Act.Fact Sheet for Healthcare Pro viders:https://www.Popdust.[employer]cloud ([place]) [employer] and Technology/Documents/Xpert%20Xpress%20SARS%20CoV-2/Fact%20Sh eets/302-3802%81YZQW-TFZ-5%20HEALTHCARE%20PROVIDERS%20FACT%20SHEET.pdfFact Sheet for Healthcare Patients:https://www.FirePower Technology.[employer] ([place]) [employer]/Documents/Xpert%20Xpress%20SARS%20CoV-2/Fact%20Sheets/302-3801%20SARS-COV -2%20PATIENT%20FACT%20SHEET.pdfPerforming Laboratory:[facility], [place] [id number] 20:56:00 Test Item Value Reference Range Interpretation Comments LIPASE (BEAKER) (test code = 749) < U/L 8-78 L Child Protective Services Specialist ID - DBBASIC METABOLIC [id number] 20:52:00 Test Item Value Reference Range Interpretation [...] S NOT APPLICABLE FOR DIALYSIS PATIEN TS. Child Protective Services Specialist ID - DBHEPATIC FUNCTION [id number] 20:52:00 Test Item Value Reference Range Interpretation Comments TOTAL PROTEIN (BEAKER) 7.6 gm/dL 6.0-8.3 Speci men markedly (test code = 770) hemolyzed ALBUMIN (BEAKER) (test 4.1 g/dL 3.5-5.0 Speci men markedly code = 1145) hemolyzed BILIRUBIN TOTAL 1.3 mg/dL 0.2-1.2 H Specimen maya olvera (BEAKER) (test code = hemoly zed 377) BILIRUBIN DIRECT 0.4 mg/dL 0.1-0.5 Specimen saba wilson (BEAKER) (test code = hemoly zed 706) ALKALINE PHOSPHATASE 82 U/L 40-150 (BEAKER) (test code = 346) AST (SGOT) (BEAKER) 36 U/L 5-34 H Specimen markedly (test code = 353) hemolyzed ALT (SGPT) (BEAKER) 26 U/L 6-55 Specimen markedly (test code = 347) hemolyzed Child Protective Services Specialist ID - DBCBC W/PLT COUNT & AUTO [id number] 20:33:00 Test Item Value Reference Range Interpretation [...] code = 2801) RAD, ABDOMEN/KUB, 1 VIEW [id number] 20:11:00Reason for exam:->ABDOMINAL PAINReason for exam:->history of [...] be obtained as clinically warranted. Signed: Magno Carvajal Verified Date/Time: 06/07/2020 20:11:37 RAD, ABDOMEN/KUB, 1 VIEW [id number] 15:31:00Reason for exam:->assess stool burdenFINAL REPORT CLINICAL [...] Gomez Verified Date/Time: 05/09/2020 15:31:54 Reading Location: [facility] Radiology Reading Room CBC W/PLT COUNT & AUTO [id number] 06:57:00 Test Item Value Reference Range Interpretation [...] 0-1 PERCENT (BEAKER) (test code = 2801) [id number] 06:46:00 Test Item Value Reference Range Interpretation Comments MAGNESIUM (BEAKER) 1.5 mg/dL 1.6-2.6 L Specimen slightly (test code = 627) hemolyzed Child Protective Services Specialist ID - [id number] 06:46:00 Test Item Value Reference Range Interpretation Comments PHOSPHORUS (BEAKER) 2.9 mg/dL 2.3-4.7 Specimen slightly (test code = 604) hemolyzed Child Protective Services Specialist ID - EDASIBASIC METABOLIC [id number] 06:46:00 Test Item Value Reference Range Interpretation [...] S NOT APPLICABLE FOR DIALYSIS PATIEN TS. Child Protective Services Specialist ID - EDASIHEPATIC FUNCTION [id number] 06:46:00 Test Item Value Reference Range Interpretation [...] Specimen slightly (test code = 347) hemolyzed Child Protective Services Specialist ID - [id number] 10:38:00 Test Item Value Reference Range Interpretation Comments MAGNESIUM (BEAKER) 1.9 mg/dL 1.6-2.6 Specimen slightly (test code = 627) hemolyzed Child Protective Services Specialist ID - [id number] 10:38:00 Test Item Value Reference Range Interpretation Comments PHOSPHORUS (BEAKER) 2.5 mg/dL 2.3-4.7 Specimen slightly (test code = 604) hemolyzed Child Protective Services Specialist ID - NTPBASIC METABOLIC [id number] 10:38:00 Test Item Value Reference Range Interpretation [...] S NOT APPLICABLE FOR DIALYSIS PATIEN TS. Child Protective Services Specialist ID - NTPHEPATIC FUNCTION [id number] 10:38:00 Test Item Value Reference Range Interpretation [...] Specimen slightly (test code = 347) hemolyzed Child Protective Services Specialist ID - NTPCBC W/PLT COUNT & AUTO [id number] 10:33:00 Test Item Value Reference Range Interpretation [...] PERCENT (BEAKER) (test code = 2801) SARS-COV2/RT-PCR ([facility])2020-05-07 11:54:00 Test Item Value Reference Range Interpretation Comments SARS-COV2/RT-PCR (test Negative Not Detected, Negative, code = 8204370) See external report for linked test SARS-COV-2 PERFORMING LAB [facility] (test code = 3325008) Negative result for this test determines that [...] of the Act.Fact Sheet for Healthcare Prov iders:https://www.Ablynx/sites/default/files/product/documents/Fact_Sheet_HC _Zpplvjtgm_Yiaz_VDLA-BvB-2.pdfFact Sheet for Healthcare Patients:https://www.Ablynx/sites/default/files/product/docume nts/Dtjh_Hoiyc_Ttzqnsfa_Buku_XPAA-HhH-4.pdfPerforming Laboratory:[facility], [place] [id number] 10:19:00 Test Item Value Reference Range Interpretation Comments MAGNESIUM (BEAKER) (test code = 1.3 mg/dL 1.6-2.6 L 627) Child Protective Services Specialist ID - PIAYA LBASIC METABOLIC [id number] 10:19:00 Test Item Value Reference Range Interpretation Comments SODIUM (BEAKER) 135 meq/L 136-145 L (test code = 381) POTASSIUM (BEAKER) 3.8 meq/L 3.5-5.1 (test code = 379) CHLORIDE (BEAKER) 107 meq/L 98-107 (test code = 382) CO2 (BEAKER) (test 25 meq/L 22- code = 355) BLOOD UREA NITROGEN 16 [...] S NOT APPLICABLE FOR DIALYSIS PATIEN TS. Child Protective Services Specialist ID - PIAYA LHEPATIC FUNCTION [id number] 10:19:00 Test Item Value Reference Range Interpretation [...] (test code = 13 U/L 6-55 347) Child Protective Services Specialist ID - PIHANS LCBC W/PLT COUNT & AUTO [id number] 10:00:00 Test Item Value Reference Range Interpretation [...] PERCENT (BEAKER) (test code = 2801) CT, [id number] 02:02:00FINAL REPORT TECHNIQUE: CT of the abdomen [...] CARMELO MOSLEY MD on 05/07/2020 02:02 AMURINALYSIS [id number] 01:08:00 Test Item Value Reference Range Interpretation Comments RBC UA (BEAKER) (test code = 519) < /HPF WBC UA (BEAKER) (test code = 520) 3 /HPF BACTERIA (BEAKER) (test code = Rare 517) MUCUS (BEAKER) (test code = 1574) Occasional SQUAMOUS EPITHELIAL (BEAKER) (test < /HPF code = 516) HYALINE CASTS (BEAKER) (test code 1 /LPF = 514) Child Protective Services Specialist ID - techU/S, ABDOMINAL, [id number] 00:44:00Abdomen limited area? Add comment if clarification [...] Date/Time: 05/07/2020 00:44:38 URINALYSIS WITH MICROSCOPIC IF [id number] 00:38:00 Test Item Value Reference Range Interpretation [...] = 463) SOURCE(BEAKER) (test code = 2795) Child Protective Services Specialist ID - [auto]Child Protective Services Specialist ID - [id number] 00:23:00 Test Item Value Reference Range Interpretation Comments LIPASE (BEAKER) (test code = 749) < U/L 8-78 L Child Protective Services Specialist ID - PIAYA LBASIC METABOLIC [id number] 00:20:00 Test Item Value Reference Range Interpretation [...] S NOT APPLICABLE FOR DIALYSIS PATIEN TS. Child Protective Services Specialist ID - ANETA LHEPATIC FUNCTION [id number] 00:20:00 Test Item Value Reference Range Interpretation [...] (test code = 20 U/L 6-55 347) Child Protective Services Specialist ID - ANETA LLACTIC ACID, [id number] 23:58:00 Test Item Value Reference Range Interpretation Comments LACTATE BLOOD VENOUS 1.45 mmol/L 0.50-2.20 Specime n slightly (2) (BEAKER) (test hemolyzed code = 0656) Child Protective Services Specialist ID - ANETA LCBC W/PLT COUNT & AUTO [id number] 23:46:00 Test Item Value Reference Range Interpretation [...] (BEAKER) (test code = 2801) CF RESPIRATORY [id number] 16:25:00 Test Item Value Reference Range Interpretation [...] 3+ Normal respiratory maria del carmen presentCT, [id number] 10:37:00FINAL REPORT ABDOMINAL AND PELVIS CT DATED [...] MDReport Verified Date/Time: 04/17/2020 10:37:08 Reading Location: [address] Body Reading Room URINALYSIS W/ REFLEX URINE [id number] 09:19:00 Test Item Value Reference Range Interpretation [...] /LPF 514) SOURCE(BEAKER) (test code = 2795) Child Protective Services Specialist ID - [auto]Child Protective Services Specialist ID - [id number] 09:14:00 Test Item Value Reference Range Interpretation Comments LIPASE (BEAKER) (test code = 749) < U/L 8-78 L Child Protective Services Specialist ID - GALAPBASIC METABOLIC [id number] 08:36:00 Test Item Value Reference Range Interpretation [...] S NOT APPLICABLE FOR DIALYSIS PATIEN TS. Child Protective Services Specialist ID - GALAPHEPATIC FUNCTION [id number] 08:36:00 Test Item Value Reference Range Interpretation [...] (test code = 32 U/L 6-55 347) Child Protective Services Specialist ID - GALAPCBC W/PLT COUNT & AUTO [id number] 08:26:00 Test Item Value Reference Range Interpretation [...] (BEAKER) (test code = 2801) HEPATIC FUNCTION [id number] 10:19:43 Test Item Value Reference Range Interpretation Comments PROTEIN TOTAL (test See_Comment [Automa joann message] The code = 2885-2) system which generated this result tra nsmitted reference range : 6.1 - 8.3 G/DL. The r eference range was not u sed to interpret this result as normal/abnormal . ALBUMIN (test code = See_Comment [Autom ated message] The 175-) system which ge nerated this result tra [...] See_Comment [Aut omated message] The code = 1884371) system which generated this result tra nsmitted [...] All Testing Performed At: C linical Pathology [facility], [address] [place] [address] [facility] Director: Graham Mendoza M.D. CLIA Number [id number] Cap Accreditation N o. [id number] [facility]2019-12-12 19:00:00Oksana Goddard NP 12/18/2019 12:20 PMPlease see graphic report for final interpretation. Date of testDate of test: 12/12/1925FUU9ABG7: 2.27 LFEV1 % EXP: 63 %FVCFVC: 3.5 LFVC % EXPECT: 79 %FEV1 / FVCFEV1 / FVC: 0.72 %FEV1 / FVC % EXP: 89 %FEFFEF 25-75%: 1.5 l/minFEF % EXPEC: 41 %[facility] [id number] 12:01:00 Test Item Value Reference Interpretation Comments [...] 4+ Normal respiratory maria del carmen presentPOCT-GLUCOSE [id number] 10:24:00 Test Item Value Reference Range Interpretation Comments POC-GLUCOSE METER 101 mg/dL 70-110 : [facility] (BEAKER) (test code = [place], 1538) [address]: Child Protective Services Specialist/Techni rian ID = [id number] for CORY EVAN, LILA [id number] 05:45:00 Test Item Value Reference Range Interpretation Comments MAGNESIUM (BEAKER) (test code = 1.4 mg/dL 1.6-2.6 L 627) Child Protective Services Specialist ID - LABASIC METABOLIC [id number] 05:45:00 Test Item Value Reference Range Interpretation [...] S NOT APPLICABLE FOR DIALYSIS PATIEN TS. Child Protective Services Specialist ID - LABASIC METABOLIC [id number] 13:57:00 Test Item Value Reference Range Interpretation [...] S NOT APPLICABLE FOR DIALYSIS PATIEN TS. Child Protective Services Specialist ID - NEIL MCMAHOND, ABDOMEN/KUB, 1 VIEW [id number] 09:29:00Reason for exam:->LIONEL, eval stool burdenFINAL REPORT [...] MDReport Verified Date/Time: 10/22/2019 09:29:36 Reading Location: [facility] Radiology Reading Room [id number] 07:28:00 Test Item Value Reference Range Interpretation Comments MAGNESIUM (BEAKER) 1.4 mg/dL 1.6-2.6 L Specimen moderately (test code = 627) hemolyzed Child Protective Services Specialist ID - [id number] 03:32:00 Test Item Value Reference Range Interpretation Comments MAGNESIUM (BEAKER) (test code = 1.4 mg/dL 1.6-2.6 L 627) Child Protective Services Specialist ID - NEIL MBASIC METABOLIC [id number] 03:32:00 Test Item Value Reference Range Interpretation [...] S NOT APPLICABLE FOR DIALYSIS PATIEN TS. Child Protective Services Specialist ID - NEIL [id number] 05:11:00 Test Item Value Reference Range Interpretation Comments MAGNESIUM (BEAKER) (test code = 1.7 mg/dL 1.6-2.6 627) Child Protective Services Specialist ID - NEIL MBASIC METABOLIC [id number] 05:11:00 Test Item Value Reference Range Interpretation [...] S NOT APPLICABLE FOR DIALYSIS PATIEN TS. Child Protective Services Specialist ID - NEIL MRAD, ABDOMEN/KUB, 1 VIEW [id number] 05:46:00Reason for exam:->ABDOMINAL PAINFINAL REPORT TECHNIQUE: Single [...] MDReport Verified Date/Time: 10/19/2019 05:46:42 BASIC METABOLIC [id number] 05:42:00 Test Item Value Reference Range Interpretation [...] S NOT APPLICABLE FOR DIALYSIS PATIEN TS. Child Protective Services Specialist ID - NEIL [id number] 05:29:00 Test Item Value Reference Range Interpretation Comments PHOSPHORUS (BEAKER) (test code = 2.4 mg/dL 2.3-4.7 604) Child Protective Services Specialist ID - NEIL [id number] 05:29:00 Test Item Value Reference Range Interpretation Comments MAGNESIUM (BEAKER) (test code = 1.5 mg/dL 1.6-2.6 L 627) Child Protective Services Specialist ID - NEIL MCT, [id number] 04:01:00Reason for exam:->distal intestinal obstructionWhat is the [...] S NOT APPLICABLE FOR DIALYSIS PATIEN TS. Child Protective Services Specialist ID - NEIL MCBC W/PLT COUNT & AUTO [id number] 01:44:00 Test Item Value Reference Range Interpretation [...] (test code = 2801) AFB CULTURE + [id number] 12:10:00 Test Item Value Reference Range Interpretation Comments CULTURE (BEAKER) (test No acid-fast bacilli code = 1095) isolated in 42 days AFB SMEAR (BEAKER) No acid fast bacilli (test code = 994) seen FUNGUS CULTURE + [id number] 18:48:00 Test Item Value Reference Range Interpretation Comments CULTURE (BEAKER) A <1+ Padilla (test code = 1095) parapsilo sis FUNGUS SMEAR No fungi seen (BEAKER) (test code = 1406) CF RESPIRATORY [id number] 08:04:00 Test Item Value Reference Range Interpretation [...] 25) , Resistant <0 or >4 CULTURE (AKER) (test ESCHERICHIA COLI A < [...] 3+ Normal respiratory maria del carmen presentSPIN/CONCENTRATION [id number] 01:05:00 Test Item Value Reference Range Interpretation Comments CONCENTRATION CHARGED ([facility] (test Done code = 2657) VITAMIN D 25 [id number] 10:54:35 Test Item Value Reference Range Interpretation Comments VITAMIN D 25-HYDROXY SEE BELOW NG/ML L NOT E: (test code = 5074531) 25-HYD ROXYVITAMIN D ASSAY INCLUDES 25-HYDROXYVITAM IN D2 AND D3. METHODO LOGY IS CHEMILUMINESCEN T IMMUNOASSAY. $ $$$$ INTERPRETIVE RA NGES $$$$$PEDIATRIC (<17 YEARS) . [...] Otherwis e Indicated, All Testing Performed At: [facility], [address] [place] [address] Venecia garvin Director: Ranulfo ClevelandIA Number [id number] Cap Accreditation N o. Lab Interpretation Abnormal (test code = 26820-1) [id number] 10:45:17 Test Item Value Reference Range Interpretation Comments TESTOSTERONE LEVEL (test See_Comment Un less Otherwise code = 1117938) Indicated, A ll Testing Performed At: [facility] [place] [address] Venecia garvin Director: Ranulfo Cleveland Number [id number] Cap Accreditation N o. [Autom ated message] The sy stem which generated this result transmit joann reference range : 300 - 890 NG/DL. The reference range was not used to interpr et this result as normal/abnormal . [facility]inoPROTIME-[id number] 09:34:37 Test Item Value Reference Range Interpretation Comments PROTIME (test code = See_Comment [Autom ated message] The 93970-1) system which ge nerated this result transmit joann reference range: 12.5 - 1 4.7 SECONDS. The reference r taurus was not used to interpr et this result as katy l/abnormal. INR (test code = SEE BELOW [place] [address]-9) FOR AN INR OF 2 .0-3.0 FOR ALL PATIENTS ON VITAMIN K ANTAGONISTS, EX CEPT THOSE WITH PROSTHETIC HEART VALVES, FOR WHO M INR OF 2.5-3.5 IS MICHAEL MMENDED. Unless Otherwis e Indicated, All Testing Per formed At: [facility], [address] [place] [address] 7875 4 Design Manager: Ranulfo Cleveland [id number] Cap Accreditati on No. [facility]inoTSH2019-10-09 09:25:17 Test Item Value Reference Range Interpretation Comments THYROID STIMULATING See_Comment Unless Otherwise HORMONE (test code = Indicat ed, All Testing 7882536) Performed At: [facility], [address] [place] [address] Labora tor Director: Graham Mendoza M.D. CLIA Number [id number] Cap Accreditation [place] o. 79784-06 [Autom ated message] The sy stem which generated this result transmit joann reference range : 0.400 - 4.100 UIU/ML. T he reference range was not used to interpr et this result as normal/abnormal . [facility]inoHEMOGLOBIN [id number] 08:37:06 Test Item Value Reference Range Interpretation Comments HEMOGLOBIN A1C (test 6.0 % 4.2-5.6 H Unless Otherwise code = 4548-4) Indicated, Al l Testing Performed At: [facility], [address] [place] [address] Laborator y Director: Graham Mendoza M.D. CLIA Number [id number] [place]reditation [place] o. [id number] Lab Interpretation Abnormal (test code = 34458-6) [facility]inoCOMPREHENSIVE METABOLIC [id number] 08:10:39 Test Item Value Reference Range Interpretation Comments GLUCOSE (test code = See_Comment [Autom ated message] The 06569-9) system which ge nerated this result tra nsmitted reference range : 70 - 99 MG/DL. The refe rence range was not u sed to interpret this result as normal/abnormal . BLOOD UREA NITROGEN See_Comment [Automa joann message] The (test code = 20603-4) system which generated this result tra nsmitted reference range : 6 - 20 MG/DL. The refe rence range was not u sed to interpret this result as normal/abnormal . CREATININE (test code See_Comment [Auto mated message] The = 85414-8) system which ge nerated this result tra [...] code = See_Comment [Automate d message] The 60299-1) system which ge nerated this result tra [...] code = See_Comment [Automa joann message] The 39251-6) system which ge nerated this result tra [...] code = See_Comment [Autom ated message] The 87474-2) system which ge nerated this result tra [...] code = See_Comment [Autom ated message] The ) system which ge nerated this result tra nsmitted reference range : 3.5 - 5.2 G/DL. The r eference range was not u sed to interpret this result as normal/abnormal . GLOBULINS, SERUM, See_Comment [Automate d message] The TOTAL (test code = system Mozido ich generated 230) this result tra nsmitted [...] See_Comment [Auto mated message] The code = 1974-) system which generated this result tra nsmitted [...] All Testing Performed At: C linical Pathology [facility], [address] [place] [address] Director: Graham Mendoza M.D. CLIA Number [id number] [facility] [place]. [id number] [facility]inoLIPID [id number] 08:10:39 Test Item Value Reference Range Interpretation Comments CHOLESTEROL (test code = See_Comment [A utomated message] 9123847) The system [employer] generated this result transmitted ref erence range: <200 MG/ DL. The reference range was not used to interpr et this result as normal/abnormal . TRIGLYCERIDES (test code See_Comment [A utomated message] = 4125702) The system [employer] generated this result transmitted ref erence range: <150 MG/ DL. The reference range was not used to interpr et this result as normal/abnormal . HDL CHOLESTEROL (test See_Comment [Auto mated message] code = 7983472) The system w hich generated this result transmitted ref erence range: >39 MG/D L. The reference range was not used to interpr et this result as normal/abnormal . LDL CHOLESTEROL See_Comment [Automated message] CALCULATED (test code = The system which 5474464) generated this result transmitted ref erence range: <100 MG/ DL. The reference range was not used to interpr et this result as normal/abnormal . LDL/HDL RATIO, SERUM See_Comment Unless Otherwise (test code = 168) Indicated, All Testing Performed At: C linical Pathology [facility], [address] [place] [id number] [place] [address] Director: Graham Mendoza M.D. IA Number [id number] Cap Accreditation [place] o. [id number] [Autom ated message] The sy stem which generated this result transmit joann reference range : <3.55 RATIO. The refe rence range was not u sed to interpret this result as normal/abnor mal. [facility] W/AUTO DIFF WITH [id number] 08:02:31 Test Item Value Reference Range Interpretation Comments WHITE BLOOD CELL COUNT See_Comment [Aut omated message] (test code = 6690-2) The sys tem which generated this result transmitted ref erence range: 4.0 - 11 .0 K/UL. The refer ence range was not u sed to interpret this result as normal/abnor mal. RED BLOOD CELL COUNT See_Comment [Autom ated message] (test code = 55641-4) The sy stem which generated this result transmitted ref erence range: 4.10 - 5 .70 M/UL. The refer ence range was not u sed to interpret this result as normal/abnor mal. HEMOGLOBIN (test code = See_Comment [Au tomated message] 85844-3) The system whic h generated this result transmitted ref erence range: 13.0 - 1 7.0 G/DL. The refer ence range was not u sed to interpret this result as normal/abnor mal. HEMATOCRIT (test code = 41.3 % 37-49 92927-9) MEAN CORPUSCULAR VOLUME 90.6 fL 80-100 (test [...] = 777-3) Indicated, All Testing Performed At: [facility], [address] [place] [address] [facility] y Director: Graham Mendoza M.D. CLIA Number [id number] Cap [place]reditation [place]. 82500-79 [Autom ated message] The sy stem which generated this result transmit joann reference range : 130 - 400 K/UL. The reference range was not used to int erpret this result as normal/abnormal . [facility]inoCREATININE, RANDOM [id number] 01:17:00 Test Item Value Reference Range Interpretation Comments CREATININE URINE (BEAKER) (test 105.9 mg/dL code = 375) Reference Range: No NormalsSODIUM, RANDOM [id number] 01:17:00 Test Item Value Reference Range Interpretation Comments SODIUM URINE (BEAKER) (test code = 235 meq/L 243) Reference Range: No NormalsBASIC METABOLIC [id number] 14:52:00 Test Item Value Reference Range Interpretation [...] PATIEN TS. CBC W/PLT COUNT & AUTO [id number] 06:59:00 Test Item Value Reference Range Interpretation [...] (BEAKER) (test code = 2801) BASIC METABOLIC [id number] 07:05:00 Test Item Value Reference Range Interpretation [...] PATIEN TS. CBC W/PLT COUNT & AUTO [id number] 06:46:00 Test Item Value Reference Range Interpretation [...] PERCENT (BEAKER) (test code = 2801) TROPONIN [id number] 19:25:00 Test Item Value Reference Range Interpretation [...] acute neurological disease, and persistent tachyarrhythmia.BASIC METABOLIC [id number] 07:10:00 Test Item Value Reference Range Interpretation [...] PATIEN TS. CBC W/PLT COUNT & AUTO [id number] 06:55:00 Test Item Value Reference Range Interpretation [...] (BEAKER) (test code = 2801) BASIC METABOLIC [id number] 03:46:00 Test Item Value Reference Range Interpretation [...] PATIEN TS. CBC W/PLT COUNT & AUTO [id number] 03:42:00 Test Item Value Reference Range Interpretation [...] PERCENT (BEAKER) (test code = 2801) POCT-GLUCOSE [id number] 06:12:00 Test Item Value Reference Range Interpretation Comments POC-GLUCOSE METER 81 mg/dL 70-110 TESTED AT [facility] 6720 (BEAKER) (test code = JUSTNIE Ha [facility] [address] 1538) BASIC METABOLIC [id number] 05:38:00 Test Item Value Reference Range Interpretation [...] PATIEN TS. CBC W/PLT COUNT & AUTO [id number] 04:55:00 Test Item Value Reference Range Interpretation [...] 417) IMMATURE GRANULOCYTES-RELATIVE 0 % 0-1 PERCENT ([facility]) (test code = 2801) POCT-GLUCOSE [id number] 00:40:00 Test Item Value Reference Range Interpretation Comments POC-GLUCOSE METER 106 mg/dL 70-110 TESTED AT [facility] 6720 ([facility]) (test code = JUSTINE Ha [facility] 1538) [address] POCT-GLUCOSE [id number] 18:46:00 Test Item Value Reference Range Interpretation Comments POC-GLUCOSE METER 102 mg/dL 70-110 TESTED AT [place] [id number] ([facility]) (test code = JUSTINE Ha [facility] 1538) [address] [place], SMALL BOWEL [id number] 18:00:00Reason for exam:->resolution of ileus FINAL REPORT [...] suggest ileus or low-grade partial obstruction. Signed: Geno Waters Verified Date/Time: 06/04/2019 18:00:59 Reading Location: [address] Consult Reading Room POCT-GLUCOSE [id number] 12:42:00 Test Item Value Reference Range Interpretation Comments POC-GLUCOSE METER 88 mg/dL 70-110 TESTED AT [facility] 6720 ([facility]) (test code = JUSTINE Ha [facility] [address] 1538) RAD, ABDOMEN/KUB, 1 VIEW [id number] 10:33:00Reason for exam:->distentioin FINAL REPORT RAD, ABDOMEN/KUB, [...] bowel. Findings are concerning for ileus. Signed: Esperanza Duque MDReportVerified Date/Time: 06/04/2019 10:33:04 Reading Location: [facility] Radiology Reading Room POCT-GLUCOSE [id number] 07:13:00 Test Item Value Reference Range Interpretation Comments POC-GLUCOSE METER 76 mg/dL 70-110 TESTED AT [facility] 6720 (BEAKER) (test code = JUSTINE Ha [facility] [address] 1538) BASIC METABOLIC [id number] 07:03:00 Test Item Value Reference Range Interpretation [...] PATIEN TS. CBC W/PLT COUNT & AUTO [id number] 06:56:00 Test Item Value Reference Range Interpretation [...] PERCENT (BEAKER) (test code = 2801) POCT-GLUCOSE [id number] 05:03:00 Test Item Value Reference Range Interpretation Comments POC-GLUCOSE METER 90 mg/dL 70-110 TESTED AT [facility] 6720 (BEAKER) (test code = [place] [address] 1538) [id number] 12:47:00 Test Item Value Reference Range Interpretation Comments MAGNESIUM (BEAKER) (test code = 1.8 mg/dL 1.6-2.6 627) BASIC METABOLIC [id number] 12:47:00 Test Item Value Reference Range Interpretation [...] PATIEN TS. CBC W/PLT COUNT & AUTO [id number] 12:20:00 Test Item Value Reference Range Interpretation [...] PERCENT (BEAKER) (test code = 2801) CT, [id number] 16:06:00Please give water soluble rectal contrast (gastrograffin)FINAL REPORT ABDOMINAL AND PELVIS CT DATED 06/02/2019 Comparison: June 01, 2019 CLINICAL INFORMATION: Abdominal distension TECHNIQUE: Axial images of the abdomen and pelvis were obtained from diaphragm to the pubic symphysis with GI contrast. This exam was performed according [facility]-optimization program, which includes automated exposure control, adjustment ofthe mA and/or kV according to patient size [...] inferior pole right kidney. No hydronephrosis or hy droureter is present. The opacified small bowel is [...] Tierney MDReportVerified Date/Time: 06/02/2019 16:06:39 Reading Location: [address] Consult Reading Room HEMOGLOBIN [id number] 14:49:00 Test Item Value Reference Range Interpretation Comments HEMOGLOBIN A1C (BEAKER) (test code = 6.4 % 4.3-6.1 H 368) [id number] 10:13:00 Test Item Value Reference Range Interpretation Comments PHOSPHORUS (BEAKER) (test code = 2.7 mg/dL 2.3-4.7 604) [id number] 10:13:00 Test Item Value Reference Range Interpretation Comments MAGNESIUM (BEAKER) (test code = 1.8 mg/dL 1.6-2.6 627) BASIC METABOLIC [id number] 10:13:00 Test Item Value Reference Range Interpretation [...] APPLICABLE FOR DIALYSIS PATIEN TS. HEPATIC FUNCTION [id number] 10:13:00 Test Item Value Reference Range Interpretation [...] 6-55 347) CBC W/PLT COUNT & AUTO [id number] 10:01:00 Test Item Value Reference Range Interpretation [...] PERCENT (BEAKER) (test code = 2801) CT, [id number] 04:53:00FINAL REPORT CT, ABDOMEN \\T\\ PELVIS, WITH [...] the right colon. Nonobstructing bilateral nephrolithiasis. Signed: Sofiya Ding MDReport Verified Date/Time: 06/02/2019 04:53:48 BASIC METABOLIC [id number] 02:20:00 Test Item Value Reference Range Interpretation [...] TS. RAD, ABDOMEN SERIES W/ UPRIGHT PA [id number] 01:44:00Reason for exam:- >ABDOMINAL PAINFINAL REPORT RAD, [...] silhouette is normal. Signed: Luis Enrique Russell [facility] Verified Date/Time: 06/01/2019 01:44:40 CBC W/PLT COUNT & AUTO [id number] 00:59:00 Test Item Value Reference Range Interpretation [...] (BEAKER) (test code = 2801) RESPIRATORY PANEL [id number] 16:44:00 Test Item Value Reference Range Interpretation Comments HUMAN METAPNEUMOVIRUS Not detected Not detected, (BEAKER) (test code = 2683) Equivocal RHINOVIRUS (BEAKER) (test Not detected Not detected, code = 2684) Equivocal INFLUENZA A (BEAKER) (test Not detected Not detected, code = 2685) Equivocal INFLUENZA A (NO SUBTYPE) Not detected, (test code = 4906) Equivocal INFLUENZA A SUBTYPE H1 Not detected, (BEAKER) (test code = 7056) Equivocal INFLUENZA A SUBTYPE H3 Not detected, [...] decisions. This sample was tested at the [facility]ostics [facility] using the MocavoArray Respiratory Panel. It is FDA cleared and has been verified and approved by the [facility] for clinical use on nasopharyngeal swab specimens.The performance of the FilmArrayRP has not been established in individuals who received influenza vaccine. Recent administration of a nasal influenza vaccine may cause false positive results for Influenza A and/orInfluenza B.[id number] 06:22:00 Test Item Value Reference Range Interpretation Comments MAGNESIUM (BEAKER) 2.2 mg/dL 1.6-2.6 Specimen slightly (test code = 627) hemolyzed BASIC METABOLIC [id number] 06:22:00 Test Item Value Reference Range Interpretation [...] PATIEN TS. CBC W/PLT COUNT & AUTO [id number] 06:01:00 Test Item Value Reference Range Interpretation [...] = 2801) CBC W/PLT COUNT & AUTO [id number] 07:32:00 Test Item Value Reference Range Interpretation [...] 3438) Received comment: User comments: Slide comments:CALCIUM, [id number] 05:25:00 Test Item Value Reference Range Interpretation Comments CALCIUM IONIZED (BEAKER) (test 1.14 mmol/L 1.12-1.27 code = 698) PH, BLOOD (BEAKER) (test code = 7.41 1810) [id number] 05:04:00 Test Item Value Reference Range Interpretation Comments PHOSPHORUS (BEAKER) (test code = 2.6 mg/dL 2.3-4.7 604) [id number] 05:04:00 Test Item Value Reference Range Interpretation Comments MAGNESIUM (BEAKER) (test code = 1.9 mg/dL 1.6-2.6 627) BASIC METABOLIC [id number] 05:04:00 Test Item Value Reference Range Interpretation [...] NOT APPLICABLE FOR DIALYSIS PATIEN TS. CT, [id number] 17:54:00FINAL REPORT CT scan of the abdomen [...] the right colon.5. Nonocclusive renal calculi. Signed: Omari Rich MDReport Verified Date/Time: 03/27/2019 17:54:25 Reading Location: [address] Consult Reading Room CBC W/PLT COUNT & AUTO [id number] 10:54:00 Test Item Value Reference Range Interpretation [...] = 3438) Received comment: User comments: Slide comments:[id number] 06:36:00 Test Item Value Reference Range Interpretation Comments PHOSPHORUS (BEAKER) (test code = 2.1 mg/dL 2.3-4.7 L 604) [id number] 06:36:00 Test Item Value Reference Range Interpretation Comments MAGNESIUM (BEAKER) (test code = 1.6 mg/dL 1.6-2.6 627) BASIC METABOLIC [id number] 06:36:00 Test Item Value Reference Range Interpretation [...] NOT APPLICABLE FOR DIALYSIS PATIEN TS. CALCIUM, [id number] 06:23:00 Test Item Value Reference Range Interpretation Comments CALCIUM IONIZED (BEAKER) (test 1.14 mmol/L 1.12-1.27 code = 698) PH, BLOOD (BEAKER) (test code = 7.46 1810) RAD, ABDOMEN/KUB, 1 VIEW [id number] 16:14:00Reason for exam:->constipation FINAL REPORT EXAM: AP [...] Verified Date/Time: 03/26/2019 16:14:33 Reading L ocation: [facility] Mammo Reading Room CBC W/PLT COUNT & AUTO [id number] 10:48:00 Test Item Value Reference Range Interpretation [...] (BEAKER) (test code Normal = 762) CALCIUM, [id number] 06:53:00 Test Item Value Reference Range Interpretation Comments CALCIUM IONIZED (BEAKER) (test 1.14 mmol/L 1.12-1.27 code = 698) PH, BLOOD (BEAKER) (test code = 7.44 1810) [id number] 06:33:00 Test Item Value Reference Range Interpretation Comments PHOSPHORUS (BEAKER) (test code = 2.6 mg/dL 2.3-4.7 604) [id number] 06:33:00 Test Item Value Reference Range Interpretation Comments MAGNESIUM (BEAKER) (test code = 1.4 mg/dL 1.6-2.6 L 627) BASIC METABOLIC [id number] 06:33:00 Test Item Value Reference Range Interpretation [...] S NOT APPLICABLE FOR DIALYSIS PATIEN TS. [id number] 06:28:00 Test Item Value Reference Range Interpretation Comments PHOSPHORUS (BEAKER) (test code = 2.8 mg/dL 2.3-4.7 604) [id number] 06:28:00 Test Item Value Reference Range Interpretation Comments MAGNESIUM (BEAKER) (test code = 1.7 mg/dL 1.6-2.6 627) BASIC METABOLIC [id number] 06:28:00 Test Item Value Reference Range Interpretation [...] NOT APPLICABLE FOR DIALYSIS PATIEN TS. CALCIUM, [id number] 06:27:00 Test Item Value Reference Range Interpretation Comments CALCIUM IONIZED (BEAKER) (test 1.18 mmol/L 1.12-1.27 code = 698) PH, BLOOD (BEAKER) (test code = 7.33 1810) CBC W/PLT COUNT & AUTO [id number] 14:47:00 Test Item Value Reference Range Interpretation [...] code = 2801) RAD, ABDOMEN/KUB, 1 VIEW [id number] 10:35:00Reason for exam:- >distentionShould this be performed at the bedside?->YesFINAL REPORT AP abdomen HISTORY: Distention COMPARISON: 03/21/2018 IMPRESSION:Decreased colonic stool burden. Some prominent aeration in the right lower quadrant. Recommend continued radiographic follow-up as developing ileus not excluded. Examination is insensitive for detection of free air. Signed: Angel Santillan MDReport Verified Date/Time: 03/24/2019 10:35:17 Reading Location: [facility] B1 C013X Ortho Consult Reading Room [id number] 07:21:00 Test Item Value Reference Range Interpretation Comments PHOSPHORUS (BEAKER) (test code = 2.4 mg/dL 2.3-4.7 604) [id number] 07:21:00 Test Item Value Reference Range Interpretation Comments MAGNESIUM (BEAKER) (test code = 1.4 mg/dL 1.6-2.6 L 627) BASIC METABOLIC [id number] 07:21:00 Test Item Value Reference Range Interpretation [...] NOT APPLICABLE FOR DIALYSIS PATIEN TS. CALCIUM, [id number] 06:37:00 Test Item Value Reference Range Interpretation Comments CALCIUM IONIZED (BEAKER) (test 1.14 mmol/L 1.12-1.27 code = 698) PH, BLOOD (BEAKER) (test code = 7.43 1810) POCT-GLUCOSE [id number] 18:06:00 Test Item Value Reference Range Interpretation Comments POC-GLUCOSE METER 106 mg/dL 70-110 TESTED AT [facility] 6720 (BEAKER) (test code = [place] 1538) [address] CALCIUM, [id number] 13:41:00 Test Item Value Reference Range Interpretation Comments CALCIUM IONIZED (BEAKER) (test 0.83 mmol/L 1.12-1.27 L code = 698) PH, BLOOD (BEAKER) (test code = 7.47 1810) POCT-GLUCOSE [id number] 11:59:00 Test Item Value Reference Range Interpretation Comments POC-GLUCOSE METER 93 mg/dL 70-110 TESTED AT [facility] 6720 (BEAKER) (test code = [place] [address] 1538) [id number] 10:39:00 Test Item Value Reference Range Interpretation Comments MAGNESIUM (BEAKER) 1.6 mg/dL 1.6-2.6 Specimen slightly (test code = 627) hemolyzed [id number] 10:39:00 Test Item Value Reference Range Interpretation Comments PHOSPHORUS (BEAKER) 2.5 mg/dL 2.3-4.7 Specimen slightly (test code = 604) hemolyzed BASIC METABOLIC [id number] 10:39:00 Test Item Value Reference Range Interpretation [...] PATIEN TS. CBC W/PLT COUNT & AUTO [id number] 10:13:00 Test Item Value Reference Range Interpretation [...] PERCENT (BEAKER) (test code = 2801) POCT-GLUCOSE [id number] 06:33:00 Test Item Value Reference Range Interpretation Comments POC-GLUCOSE METER 74 mg/dL 70-110 TESTED AT [facility] 6720 (BEAKER) (test code = [place] [address] 1538) [id number] 07:02:00 Test Item Value Reference Range Interpretation Comments MAGNESIUM (BEAKER) (test code = 1.6 mg/dL 1.6-2.6 627) BASIC METABOLIC [id number] 07:02:00 Test Item Value Reference Range Interpretation [...] TS. RAD, ABDOMEN SERIES W/ UPRIGHT PA [id number] 00:30:00Reason for exam:- >SBOReason for exam:->EMESISFINAL REPORT [...] for further evaluation if clinically appropriate. Signed: Tiffanie Nagy MDReport Verified Date/Time: 03/22/2019 00:30:32 Reading Location: [address] Reading Room URINALYSIS W/ [id number] 21:18:00 Test Item Value Reference Range Interpretation [...] 0 /HPF SOURCE(BEAKER) (test code = 2795) [id number] 20:16:00 Test Item Value Reference Range Interpretation Comments LIPASE (BEAKER) (test code = 749) < U/L 8-78 L BASIC METABOLIC [id number] 20:14:00 Test Item Value Reference Range Interpretation [...] APPLICABLE FOR DIALYSIS PATIEN TS. HEPATIC FUNCTION [id number] 20:14:00 Test Item Value Reference Range Interpretation [...] 6-55 347) CBC W/PLT COUNT & AUTO [id number] 19:59:00 Test Item Value Reference Range Interpretation [...] PERCENT (BEAKER) (test code = 2801) POCT-GLUCOSE [id number] 21:18:00 Test Item Value Reference Range Interpretation Comments POC-GLUCOSE METER 155 mg/dL 70-110 H TESTED AT [facility] 6720 (BEAKER) ([facility] 1538[facility] [address] POCT-GLUCOSE [id number] 12:24:00 Test Item Value Reference Range Interpretation Comments POC-GLUCOSE METER 179 mg/dL 70-110 H TESTED AT [place] [id number] (BEAKER) (test code = [facility] [place] [facility] 1538) [address] POCT-GLUCOSE [id number] 09:01:00 Test Item Value Reference Range Interpretation Comments POC-GLUCOSE METER 79 mg/dL 70-110 TESTED AT [place] [address] (BEAKER) (test code = [facility] [place] [facility] [address] 1538) POCT-GLUCOSE [id number] 21:50:00 Test Item Value Reference Range Interpretation Comments POC-GLUCOSE METER 134 mg/dL 70-110 H TESTED AT [place] [address] (BEAKER) (test code = [facility] [place] [facility] 1538) [address] BASIC METABOLIC [id number] 06:49:00 Test Item Value Reference Range Interpretation [...] PATIEN TS. CBC W/PLT COUNT & AUTO [id number] 06:27:00 Test Item Value Reference Range Interpretation [...] % 0-1 PERCENT (BEAKER) (test code = 4521) POCT-GLUCOSE [id number] 22:51:00 Test Item Value Reference Range Interpretation Comments POC-GLUCOSE METER 128 mg/dL 70-110 H TESTED AT [facility] 67[address] (DWAYNE) (test code = [place] 1538) [address] CT, [id number] 23:14:00FINAL REPORT ABDOMINAL AND PELVIS CT DATED [...] Verified Date/Time: 02/14/2019 23:14:03 Reading Location: [facility] C0W Consult Reading Room LIPASE 2019-02-14 21:10:00 Test Item Value Reference Range Interpretation Comments LIPASE (DWAYNE) (test code = 749) < U/L 8-78 L COMPREHENSIVE METABOLIC [id number] 21:09:00 Test Item Value Reference Range Interpretation Comments TOTAL PROTEIN 6.7 gm/dL 6.0-8.3 (DWAYNE) (test code = 770) ALBUMIN (DWAYNE) 3.9 g/dL 3.5-5.0 (test code = 1145) [...] APPLICABLE FOR DIALYSIS PATIEN TS. LACTIC ACID, [id number] 21:04:00 Test Item Value Reference Range Interpretation Comments LACTATE BLOOD VENOUS (2) (BEAKER) 0.8 mmol/L 0.5-2.2 (test code = 2872) BLOOD GAS, [id number] 21:04:00 Test Item Value Reference Range Interpretation [...] 21.0 % CBC W/PLT COUNT & AUTO [id number] 20:49:00 Test Item Value Reference Range Interpretation [...] (test code = 2801) AFB CULTURE + [id number] 10:54:00 Test Item Value Reference Interpretation Comments Range CULTURE (BEAKER) MYCOBACTERIUM A Mycobacter iu (test code = 1095) SPECIES species* - Most closely related to M.yongonense/M. mars eillenseIdentif icat ion and susceptibility performed by:[facility] [place] , Dept. of Microbiology Research, Dr[facility] Rao Olvera [facility], [facility] [address] [address] Amikacin (test code mcg/mL S = 1) [...] and not related to human disease.CF RESPIRATORY [id number] 00:29:00 Test Item Value Reference Range Interpretation [...] maria del carmen present- CT ABD PELVIS W/[id number] 23:53:00 Name: VELIA RIVERA [facility] : 1975 Age/S: 43 / M [address] [address] [place] Unit #: [id number] Loc: [place] [address] Phys: Angela Diaz MD Acct: [id number] Dis Date: Status: REG ER PHONE#: [phone] Exam Date: 11/20/2018 2351 FAX #: Reason: RLQ pain, hx of SBO EXAMS: CPT: [id number] CT ABD PELVIS W/CONT [address] Site ID: [id number] CLINICAL HISTORY: Right lower quadrant pain, history of smallbowel obstruction TECHNIQUE: Axial images of the abdomen [...] No biliary ductal dilatation. The spleen, pancreas andadrenal glands are unremarkable. Both kidneys are normal in size. 1 mm nonobstructing left upper andlower pole renal stones. No hydronephrosis or enhancing [...] 1 Signed Report (CONTINUED) Name: VELIA RIVERA [facility] : 1975 Age/S: 43 / M [address] [address] [place] Unit #: [id number] Loc: [place] [address] Phys: Angela Diaz MD Acct: [id number] Dis Date: Status: REG ER PHONE #: [phone] Exam Date: 11/20/2018 2350 FAX #: Reason: RLQ pain, hx of SBO EXAMS: CPT: [id number] CT ABD PELVIS W/CONT [address] (Continued) at 2353 Reported and signed by: Florence Ferrera M.D. CC: Radha Burch MD; Angela Diaz MD; Yani Gonzalez NP Technologist:RT Jimmy(R)(CT); Lui CTDI: DLP: Trnscb Date/Time: 11/20/2018 (192) IbrahimaAJP6 Orig Print D/T: S: 11/20/2018 (3883) CTDI: DLP: PAGE 2 Signed ReportBASIC METABOLIC [id number] 23:24:00 Test Item Value Reference Range Interpretation [...] CA) 8.3 MG/DL 8.5-10.1 L HEPATIC FUNCTION [id number] 23:24:00 Test Item Value Reference Range Interpretation [...] 93 Unit/L 50-136 N code = ALKP) [id number] 23:24:00 Test Item Value Reference Range Interpretation Comments LIPASE (test code = LIP) 28 Unit/L 114-286 L URINALYSIS [id number] 23:21:00 Test Item Value Reference Range Interpretation [...] DIPSTICK (test code = LEUU) CBC W/AUTO [id number] 23:18:00 Test Item Value Reference Range Interpretation [...] = NO DIFF/SCN CRITERIA MDIFF) BASIC METABOLIC [id number] 23:12:00 Test Item Value Reference Range Interpretation [...] CA) 8.3 MG/DL 8.5-10.1 L HEPATIC FUNCTION [id number] 23:12:00 Test Item Value Reference Range Interpretation [...] TOTAL (test code Unit/L 50-136 = ALKP) [id number] 23:12:00 Test Item Value Reference Range Interpretation Comments LIPASE (test code = LIP) 28 Unit/L 114-286 L CF RESPIRATORY [id number] 09:28:00 Test Item Value Reference Range Interpretation [...] 25) , Resistant <0 or >4 CULTURE (GuestMetricsAKER) (test A <1+ E scherichia code = 1095) coli CULTURE (GuestMetricsAKER) (test ESCHERICHIA COLI A 2 + Pseudomonas [...] Normal respiratory maria del carmen presentCF RESPIRATORY [id number] 15:22:00 Test Item Value Reference Range Interpretation [...] >4 4+ Normal respiratory maria del carmen [id number] 09:23:00 Test Item Value Reference Range Interpretation Comments PHOSPHORUS (BEAKER) (test code = 2.4 mg/dL 2.3-4.7 604) [id number] 09:23:00 Test Item Value Reference Range Interpretation Comments MAGNESIUM (BEAKER) (test code = 1.8 mg/dL 1.6-2.6 627) BASIC METABOLIC [id number] 09:23:00 Test Item Value Reference Range Interpretation [...] PATIEN TS. CBC W/PLT COUNT & AUTO [id number] 09:03:00 Test Item Value Reference Range Interpretation [...] PERCENT (BEAKER) (test code = 2801) SPIN/CONCENTRATION [id number] 14:50:00 Test Item Value Reference Range Interpretation Comments CONCENTRATION CHARGED (BEAKER) (test Done code = 9677) TOBRAMYCIN LEVEL, [id number] 07:27:00 Test Item Value Reference Range Interpretation Comments TOBRAMYCIN RANDOM (BEAKER) (test 1.7 ug/mL code = 544) Reference Range: No [id number] 07:24:00 Test Item Value Reference Range Interpretation Comments PHOSPHORUS (BEAKER) (test code = 2.5 mg/dL 2.3-4.7 604) [id number] 07:24:00 Test Item Value Reference Range Interpretation Comments MAGNESIUM (BEAKER) (test code = 1.5 mg/dL 1.6-2.6 L 627) BASIC METABOLIC [id number] 07:24:00 Test Item Value Reference Range Interpretation [...] PATIEN TS. CBC W/PLT COUNT & AUTO [id number] 07:03:00 Test Item Value Reference Range Interpretation [...] 0-1 PERCENT (BEAKER) (test code = 2801) [id number] 04:19:00 Test Item Value Reference Range Interpretation Comments MAGNESIUM (BEAKER) 1.6 mg/dL 1.6-2.6 Specimen slightly (test code = 627) hemolyzed [id number] 04:19:00 Test Item Value Reference Range Interpretation Comments PHOSPHORUS (BEAKER) 2.6 mg/dL 2.3-4.7 Specimen slightly (test code = 604) hemolyzed BASIC METABOLIC [id number] 04:19:00 Test Item Value Reference Range Interpretation [...] PATIEN TS. CBC W/PLT COUNT & AUTO [id number] 04:09:00 Test Item Value Reference Range Interpretation [...] PERCENT (BEAKER) (test code = 2801) CT, [id number] 21:54:00FINAL REPORT EXAM: CT of the abdomen [...] MDReport Verified Date/Time: 10/25/2018 21:54:25 Reading Location: [address] Reading Room [facility] METABOLIC [id number] 20:13:00 Test Item Value Reference Range Interpretation [...] APPLICABLE FOR DIALYSIS PATIEN TS. URINALYSIS W/ [id number] 19:19:00 Test Item Value Reference Range Interpretation [...] 520) SOURCE(BEAKER) (test code = Urine, Voided 6238) CBC W/PLT COUNT & AUTO [id number] 19:02:00 Test Item Value Reference Range Interpretation [...] (test code = 2801) AFB CULTURE + [id number] 12:42:00 Test Item Value Reference Range Interpretation Comments CULTURE (BEAKER) (test No acid-fast bacilli code = 1095) isolated in 42 days AFB SMEAR (BEAKER) No acid fast bacilli (test code = 994) seen FUNGUS CULTURE + [id number] 06:40:00 Test Item Value Reference Range Interpretation Comments CULTURE (BEAKER) (test No fungus isolated in code = 1095) 28 days FUNGUS SMEAR (BEAKER) No fungi seen (test code = 1406) RAD, ABDOMEN/KUB, 1 VIEW [id number] 15:59:00Reason for exam:->assess for stool burdenShould this [...] MDReport Verified Date/Time: 09/13/2018 15:59:37 Reading Location: [facility] C013W Consult Reading [facility] [id number] 12:21:00 Test Item Value Reference Range Interpretation [...] 47) 2+ Normal respiratory maria del carmen [id number] 07:17:00 Test Item Value Reference Range Interpretation Comments PHOSPHORUS (BEAKER) (test code = 3.2 mg/dL 2.3-4.7 604) [id number] 07:17:00 Test Item Value Reference Range Interpretation Comments MAGNESIUM (BEAKER) (test code = 1.6 mg/dL 1.6-2.6 627) BASIC METABOLIC [id number] 07:17:00 Test Item Value Reference Range Interpretation [...] PATIEN TS. CBC W/PLT COUNT & AUTO [id number] 07:16:00 Test Item Value Reference Range Interpretation [...] 0-1 PERCENT (BEAKER) (test code = 2801) [id number] 12:19:00 Test Item Value Reference Range Interpretation Comments PHOSPHORUS (BEAKER) (test code = 3.3 mg/dL 2.3-4.7 604) [id number] 12:19:00 Test Item Value Reference Range Interpretation Comments MAGNESIUM (BEAKER) (test code = 2.1 mg/dL 1.6-2.6 627) BASIC METABOLIC [id number] 12:19:00 Test Item Value Reference Range Interpretation [...] PATIEN TS. CBC W/PLT COUNT & AUTO [id number] 11:54:00 Test Item Value Reference Range Interpretation [...] PERCENT (BEAKER) (test code = 2801) SPIN/CONCENTRATION [id number] 00:15:00 Test Item Value Reference Range Interpretation Comments CONCENTRATION CHARGED (DWAYNE) (test Done code = 2657) CT, [id number] 21:49:00Reason for exam:->ABDOMINAL PAINWhat is the patient's [...] Recommend continued attention on follow-up imaging. Signed: Sofiya Ding MDReport Verified Date/Time: 09/08/2018 21:49:11 Reading Location: [address] Transitional Reading Room URINALYSIS W/ [id number] 21:16:00 Test Item Value Reference Range Interpretation [...] 1574) SOURCE(BEAKER) (test code = Urine, Voided 4948) [id number] 19:36:00 Test Item Value Reference Range Interpretation Comments LIPASE (BEAKER) (test code = 749) 31 U/L 8-78 BASIC METABOLIC [id number] 19:36:00 Test Item Value Reference Range Interpretation [...] APPLICABLE FOR DIALYSIS PATIEN TS. HEPATIC FUNCTION [id number] 19:36:00 Test Item Value Reference Range Interpretation [...] (test code = 27 U/L 6-55 347) [id number] 19:30:00 Test Item Value Reference Range Interpretation Comments PARTIAL THROMBOPLASTIN TIME 28.5 seconds 22.5-36.0 (BEAKER) (test code = 760) PROTHROMBIN TIME/[id number] 19:29:00 Test Item Value Reference Range Interpretation [...] mechanical heart valves.CBC W/PLT COUNT & AUTO [id number] 19:22:00 Test Item Value Reference Range Interpretation [...] 0-1 PERCENT (BEAKER) (test code = 2801) [id number] 06:48:00 Test Item Value Reference Range Interpretation Comments PHOSPHORUS (BEAKER) (test code = 3.0 mg/dL 2.3-4.7 604) [id number] 06:48:00 Test Item Value Reference Range Interpretation Comments MAGNESIUM (BEAKER) (test code = 1.5 mg/dL 1.6-2.6 L 627) BASIC METABOLIC [id number] 06:48:00 Test Item Value Reference Range Interpretation [...] NOT APPLICABLE FOR DIALYSIS PATIEN TS. PROTHROMBIN [id number] 06:43:00 Test Item Value Reference Range Interpretation [...] code = 685) ALPHA FETOPROTEIN (AFP), TUMOR [id number] 13:38:00 Test Item Value Reference Range Interpretation Comments ALPHA-FETOPROTEIN (BEAKER) (test 2.2 ng/mL <10.0 code = 1094) RAD, CHEST, 1 VIEW, NON [id number] 16:08:00Reason for exam:->CFShould this be performed at the bedside?->YesFINAL REPORT CLINICAL HISTORY: CF TECHNIQUE: 1 view of the chest COMPARISON: 07/31/2018 IMPRESSION: There are no focal infiltrates or pleural effusions. The cardiomediastinal silhouette is within normal limits for size. The visualized bones are intact. Signed: Murray Gomez MDReport Verified Date/Time: 08/29/2018 16:08:13 Reading Location: [address] Consult Reading Room CT, [id number] 19:06:00Reason for exam:->abdominal painFINAL REPORT CT scan [...] disease including lymphoma cannot be excluded. Signed: Omari Rich MDReport Verified Date/Time: 08/28/2018 19:06:10 Reading Location: [address] Consult Reading Room [id number] 16:08:00 Test Item Value Reference Range Interpretation Comments LIPASE (BEAKER) (test code = 749) < U/L 8-78 L BASIC METABOLIC [id number] 15:57:00 Test Item Value Reference Range Interpretation [...] APPLICABLE FOR DIALYSIS PATIEN TS. HEPATIC FUNCTION [id number] 15:57:00 Test Item Value Reference Range Interpretation [...] 6-55 347) CBC W/PLT COUNT & AUTO [id number] 15:44:00 Test Item Value Reference Range Interpretation [...] PERCENT (BEAKER) (test code = 2801) BLOOD [id number] 18:01:00 Test Item Value Reference Range Interpretation Comments CULTURE (BEAKER) (test No growth in 5 days code = 1095) BLOOD [id number] 15:01:00 Test Item Value Reference Range Interpretation Comments CULTURE (BEAKER) A From Aerobi c Bottle (test code = Only Micrococcu s 1095) species GRAM STAIN RESULT From aerobic (BEAKER) (test bottle only: gram code = 1123) positive cocci in clusters BLOOD [id number] 18:00:00 Test Item Value Reference Range Interpretation Comments CULTURE (BEAKER) (test No growth in 5 days code = 1095) RAD, ABDOMEN/KUB, 1 VIEW [id number] 09:39:00Reason for exam:->f/u DIOSFINAL REPORT TECHNIQUE: Supine [...] MDReport Verified Date/Time: 08/03/2018 09:39:24 Reading Location: [facility] Radiology Reading Room RAD, ABDOMEN/KUB, 1 VIEW [...] IMPRESSION: Findings consistent with c onstipation. Signed: Omari Rich MDReport Verified Date/Time: 08/02/2018 13:48:07 Reading Location: [facility] C013W Consult Reading Room BLOOD CULTURE IDENTIFICATION [id number] 13:27:00 Test Item Value Reference Range Interpretation Comments LISTERIA MONOCYTOGENES (test Not detected Not detected code = 20160712) STAPHYLOCOCCUS (test code = Not detected Not detected 20160914) STAPHYLOCOCCUS AUREUS (test code Not detected Not detected = 20160915) STREPTOCOCCUS (test code = Not detected Not detected 0231245) STREPTOCOCCUS AGALACTIAE (GROUP Not detected Not detected B) (test code = 3049129) STREPTOCOCCUS PNEUMONIAE (test Not detected Not detected code = 1013246) STREPTOCOCCUS PYOGENES (GROUP A) Not detected Not detected (test code = 1165181) ACINETOBACTER BAUMANNII (test Not detected Not detected code = 0964544) HAEMOPHILUS INFLUENZAE (test Not detected Not detected code = 4759256) NEISSERIA MENINGITIDIS (test Not detected Not detected code = 5072969) ENTEROBACTERIACEAE (test code = Not detected Not detected 5847786) ENTEROBACTER CLOACOE COMPLEX Not detected Not detected (test code = 5483189) KLEBSIELLA OXYTOCA (test code = Not detected Not detected 6169777) KLEBSIELLA PNEUMONIAE (test code Not detected Not detected = 1650) PROTEUS (test code = 9983316) Not detected Not detected SERRATIA MARCESCENS (test code = Not detected Not detected 6219695) PADILLA ALBICANS (test code = Not detected Not detected 3625237) PADILLA GLABRATA (test code = Not detected Not detected 3493508) PAIDLLA KRUSEI (test code = Not detected Not detected 8016468) PADILLA PARAPSILOSIS (test code Not detected Not detected = 9788604) PADILLA TROPICALIS (test code = Not detected Not detected 2841389) ESCHERICHIA COLI (test code = Not detected Not detected 5315077) METHICILLIN-RESISTANCE GENE Not detected (test code = 5963404) VANCOMYCIN-RESISTANCE GENE (test Not detected code = 6892162) CARBAPENEM-RESISTANCE GENE (test Not detected code = 7774341) ENTEROCOCCUS-BEAKER (test code = Not detected Not detected 4969462) PSEUDOMONAS AERUGINOSA-BEAKER Not detected Not detected (test code = 5322577) Other bacteria and resistance markers not targeted by this PCR panel cannot be excluded; therefore clinical correlation and follow up of serology, culture results, and other molecular studies is required. The results are not intended to be used as the sole means for clinical diagnosis or patient management decisions. This sample was tested at the [facility] Molecular Diagnostics Laboratory using the MocavoArray Blood Culture ID Panel. It is FDA cleared and has been verified and approved by the [facility] for clinical use. This laboratory is CLIA-certified and College ofAmerican Pathologists (CAP)-accredited to perform high complexity testing.BASIC METABOLIC [id number] 10:10:00 Test Item Value Reference Range Interpretation [...] PATIEN TS. CBC W/PLT COUNT & AUTO [id number] 09:30:00 Test Item Value Reference Range Interpretation [...] (test code = 2801) RAD, CHEST, 2 [id number] 20:55:00Reason for exam:->Cystic fibrosisFINAL REPORT TECHNIQUE: 2 [...] Soft tissues appear unremarkable. Signed: Greg Reina [facility] Verified Date/Time: 07/31/2018 20:55:36 [facility] BASI METABOLIC [id number] 06:51:00 Test Item Value Reference Range Interpretation [...] PATIEN TS. CBC W/PLT COUNT & AUTO [id number] 06:09:00 Test Item Value Reference Range Interpretation [...] (BEAKER) (test code = 2801) U/S, ABDOMINAL, [id number] 11:04:00Abdomen limited area? Add comment if clarification [...] liver. 2. No gallstonesare visualized. Signed: Diane Michaelort Verified Date/Time: 07/30/2018 11:04:05 Reading Location: [facility] C0[facility] Transitional Reading Room CT, [id number] 10:05:00Reason for exam:->Abdominal painWhat is the patient's [...] of enterocolitis. Please correlate clinically. Signed: Carmelo Tierneyort Verified Date/Time: 07/30/2018 10:05:17 Reading Location: [address] Body Reading Room URINALYSIS WITH MICROSCOPIC IF [id number] 09:06:00 Test Item Value Reference Range Interpretation [...] = 463) SOURCE(BEAKER) (test code = 2795) [id number] 08:53:00 Test Item Value Reference Range Interpretation Comments LIPASE (BEAKER) (test code = 749) < U/L 8-78 L [id number] 08:53:00 Test Item Value Reference Range Interpretation [...] is 2.5-3.5 for patients with mechanical heart valves.[id number] 08:46:00 Test Item Value Reference Range Interpretation Comments MAGNESIUM (BEAKER) (test code = 1.6 mg/dL 1.6-2.6 627) COMPREHENSIVE METABOLIC [id number] 08:46:00 Test Item Value Reference Range Interpretation [...] PATIEN TS. CBC W/PLT COUNT & AUTO [id number] 08:34:00 Test Item Value Reference Range Interpretation [...] 3438) Received comment: User comments: Slide comments:CT, [id number] 18:32:00 Reason for exam:->ABDOMINAL PAINWhat is the [...] seen.3. Other findings as described above. Signed: Omari Richeport Verified Date/Time: 07/26/2018 18:32:08 Reading Location: [address] Body Reading Room ALT (SGPT)2018-07-26 16:15:00 Test Item Value Reference Range Interpretation Comments ALT (SGPT) (BEAKER) (test code = 347) 40 U/L 6-55 AST (SGOT)2018-07-26 16:15:00 Test Item Value Reference Range Interpretation Comments AST (SGOT) (BEAKER) (test code = 353) 31 U/L 5-34 BASIC METABOLIC [id number] 16:15:00 Test Item Value Reference Range Interpretation [...] APPLICABLE FOR DIALYSIS PATIEN TS. BILIRUBIN, ADULT [id number] 16:15:00 Test Item Value Reference Range Interpretation Comments BILIRUBIN TOTAL (BEAKER) (test code 1.0 mg/dL 0.2-1.2 = 377) [id number] 16:15:00 Test Item Value Reference Range Interpretation Comments LIPASE (BEAKER) (test code = 749) < U/L 8-78 L CBC W/PLT COUNT & AUTO [id number] 16:00:00 Test Item Value Reference Range Interpretation [...] code = 2801) SPUTUM CULTURE + GRAM [id number] 08:14:00 Test Item Value Reference Range Interpretation [...] 0-5 epithelial (BEAKER) (test code cells = 185786) GRAM STAIN RESULT 1+ gram negative (BEAKER) (test code rods = 351029) GRAM STAIN RESULT 1+ gram positive (BEAKER) (test code rods = 491072) GRAM STAIN RESULT 1+ gram positive (BEAKER) (test code cocci in chains, = 308754) pairs and clusters <1+ Normal respiratory maria del carmen presentBLOOD [id number] 11:00:00 Test Item Value Reference Range Interpretation Comments CULTURE (BEAKER) (test No growth in 5 days code = 1095) BASIC METABOLIC [id number] 06:31:00 Test Item Value Reference Range Interpretation [...] 0-0 (BEAKER) (test code = 413) FL, [id number] 16:00:00Reason for exam:->CF with LIONEL, needs barium contrast enema.FINAL REPORT Gastrografin enema CLINICAL HISTORY: Cystic fibrosis with LIONEL DISCUSSION: Clothing Pattern Preparer film of the abdomen demonstrates large amount [...] 10 Impression: Therapeutic enema as described. Signed: Geno Waters Verified Date/Time: 07/21/2018 16:00:52 Reading Location: [facility] B1 C013X Ortho Consult Reading Room CREATININE, RANDOM [id number] 12:59:00 Test Item Value Reference Range Interpretation Comments CREATININE URINE (BEAKER) (test 88.2 mg/dL code = 375) Reference Range: No NormalsSODIUM, RANDOM [id number] 12:59:00 Test Item Value Reference Range Interpretation Comments SODIUM URINE (BEAKER) (test code = 167 meq/L 243) Reference Range: No NormalsURINALYSIS W/ [id number] 10:58:00 Test Item Value Reference Range Interpretation [...] 516) SOURCE(BEAKER) (test code = Urine, Voided 6405) TSH/FREE T4 IF [id number] 10:13:00 Test Item Value Reference Range Interpretation Comments THYROID STIMULATING HORMONE 1.64 uIU/mL 0.35-4.94 (BEAKER) (test code = 772) TROPONIN [id number] 10:04:00 Test Item Value Reference Range Interpretation [...] acute neurological disease, and persistent tachyarrhythmia.BASIC METABOLIC [id number] 05:36:00 Test Item Value Reference Range Interpretation [...] code = 413) RAD, ABDOMEN/KUB, 1 VIEW [id number] 16:20:00Reason for exam:->ileusFINAL REPORT Abdomen one view [...] [place]ort Verified Date/Time: 07/20/2018 16:20:23 Reading Location: [address] Consult Reading Room [id number] 03:53:00 Test Item Value Reference Range Interpretation Comments MAGNESIUM (BEAKER) (test code = 1.7 mg/dL 1.6-2.6 627) BASIC METABOLIC [id number] 03:53:00 Test Item Value Reference Range Interpretation [...] PATIEN TS. CBC W/PLT COUNT & AUTO [id number] 03:31:00 Test Item Value Reference Range Interpretation [...] code = 2801) RAD, ABDOMEN/KUB, 1 VIEW [id number] 16:03:00Reason for exam:->obstruction FINAL REPORT Abdomen one [...] Verified Date/Time: 07/19/2018 16:03:55 Reading Location: [facility] C013W Consult Reading Room [id number] 05:28:00 Test Item Value Reference Range Interpretation Comments MAGNESIUM (BEAKER) (test code = 1.5 mg/dL 1.6-2.6 L 627) BASIC METABOLIC [id number] 05:28:00 Test Item Value Reference Range Interpretation [...] PATIEN TS. CBC W/PLT COUNT & AUTO [id number] 05:01:00 Test Item Value Reference Range Interpretation [...] code = 2801) RAD, ABDOMEN/KUB, 1 VIEW [id number] 08:45:00Reason for exam:->eval bowel obstructionFINAL REPORT Technique: [...] [place] Verified Date/Time: 07/18/2018 08:45:55 Reading Location: [facility] Radiology Reading Room MAGNESIUM 2018-07-18 07:03:00 Test Item Value Reference Range Interpretation Comments MAGNESIUM (BEAKER) (test code = 1.5 mg/dL 1.6-2.6 L 627) BASIC METABOLIC [id number] 07:03:00 Test Item Value Reference Range Interpretation [...] PATIEN TS. CBC W/PLT COUNT & AUTO [id number] 06:37:00 Test Item Value Reference Range Interpretation [...] code = 2801) URINALYSIS W/ REFLEX URINE [id number] 22:24:00 Test Item Value Reference Range Interpretation [...] Occasional SOURCE(BEAKER) (test code = 2795) CT, [id number] 21:37:00Reason for exam:->ABDOMINAL PAINReason for exam:->CYSTIC FIBROSISWhat [...] of cystic fibrosis. Nonobstructing left nephrolithiasis. Signed: Sofiya Dingort Verified Date/Time: 07/17/2018 21:37:48 Reading Location: [address] Transitional Reading Room (CELLAVISION MANUAL DIFF)2018-07-17 [...] = 3438) Received comment: User comments: Slide comments:[id number] 20:05:00 Test Item Value Reference Range Interpretation Comments LIPASE (BEAKER) (test code = 749) < U/L 8-78 L COMPREHENSIVE METABOLIC [id number] 20:03:00 Test Item Value Reference Range Interpretation [...] PATIEN TS. CBC W/PLT COUNT & AUTO [id number] 19:57:00 Test Item Value Reference Range Interpretation [...] 0-1 PERCENT (BEAKER) (test code = 2801) [id number] 19:53:00 Test Item Value Reference Range Interpretation [...] is 2.5-3.5 for patients with mechanical heart valves.[id number] 05:38:00 Test Item Value Reference Range Interpretation Comments MAGNESIUM (BEAKER) (test code = 1.8 mg/dL 1.6-2.6 627) BASIC METABOLIC [id number] 05:38:00 Test Item Value Reference Range Interpretation [...] S NOT APPLICABLE FOR DIALYSIS PATIEN TS. [id number] 09:47:00 Test Item Value Reference Range Interpretation Comments MAGNESIUM (BEAKER) (test code = 1.3 mg/dL 1.6-2.6 L 627) BASIC METABOLIC [id number] 09:47:00 Test Item Value Reference Range Interpretation [...] NOT APPLICABLE FOR DIALYSIS PATIEN TS. HEMOGLOBIN [id number] 11:59:00 Test Item Value Reference Range Interpretation Comments HEMOGLOBIN A1C (BEAKER) (test code = 6.1 % 4.3-6.1 368) [id number] 05:49:00 Test Item Value Reference Range Interpretation Comments MAGNESIUM (BEAKER) (test code = 1.5 mg/dL 1.6-2.6 L 627) BASIC METABOLIC [id number] 05:49:00 Test Item Value Reference Range Interpretation [...] PATIEN TS. CBC W/PLT COUNT & AUTO [id number] 05:12:00 Test Item Value Reference Range Interpretation [...] PERCENT (BEAKER) (test code = 2801) CT, [id number] 19:56:00FINAL REPORT CT of the abdomen and [...] MDReport Verified Date/Time: 06/29/2018 19:56:22 Reading Location: [facility] C013W Consult Reading Room [id number] 17:45:00 Test Item Value Reference Range Interpretation Comments LIPASE (BEAKER) (test code = 749) < U/L 8-78 L COMPREHENSIVE METABOLIC [id number] 17:45:00 Test Item Value Reference Range Interpretation [...] ATED GFR. CBC W/PLT COUNT & AUTO [id number] 17:13:00 Test Item Value Reference Range Interpretation [...]
[2023-02-20] MEDS ORDERED: NA CHLORIDE 0.9% 500 ML ONE (00:41)
[2023-02-20] MEDS ORDERED: ONDANSETRON 4 MG/2 ML VIAL ONE (00:41)
[2023-02-20] MEDS ORDERED: MORPHINE 4 MG/ML SYR ONE ×3 (00:41→04:54)
[2023-02-20 01:07] LABS: Absolute Lymphocytes (CBC) 1.4 K/uL (0.7-4.9); Hematocrit 42.6 % (39.6-49.0); Lymphocytes % 11.9 % (15.3-44.8); MCV 92.9 fL (80-100); MPV 8.9 fL (7.6-11.3); RBC Red Blood Cell Count 4.59 M/uL (4.33-5.43)
[2023-02-20 01:25] LABS: Albumin 3.7 g/dL (3.4-5.0); Bilirubin Total 0.7 mg/dL (0.2-1.0); Potassium 4.1 mEq/L (3.5-5.1); Protein, Total 7.7 g/dL (6.4-8.2)
[2023-02-20 02:11] LABS: Specific Gravity 1.027 (1.005-1.030); Urine Bilirubin NEGATIVE (Negative); Urine Blood Negative (Negative); Urine Clarity Clear (Clear); Urine Color Light-Yellow (Yellow); Urine Glucose NEGATIVE (Negative); Urine Protein NEGATIVE (Negative); Urine Urobilinogen Normal (Normal); Urine pH 5.5 (5.0-7.0)
--- NOTE | 2023-02-20 02:52 | ER ---
Nurse's Notes [facility] Name: Matt Robles Age: 47 yrs Sex: Male : 1975 Arrival Date: 02/20/2023 Time: 00:06 Bed 6 Private MD: Diagnosis: Partial small bowel obstruction;History of Cystic Fibrosis Presentation: 02/20 00:05 Chief complaint: Patient states: RUQ, RLQ pain of 10,onset 2200 tonight with abdominal pf1 distention and nausea. Patient stated history of ileus. 00:05 Coronavirus screen: Vaccine status: Patient reports being unvaccinated. Client denies pf1 travel out of the [place] in the last 14 days. At this time, the client does not indicate any symptoms associated with coronavirus-19. Ebola Screen: Patient negative for fever greater than or equal to 101.5 degrees Fahrenheit, and additional compatible Ebola Virus Disease symptoms. Initial Sepsis Screen: Does the patient meet any 2 criteria? No. Patient's initial sepsis screen is negative. Does the patient have a suspected source of infection? No. Patient's initial sepsis screen is negative. Risk Assessment: Do you want to hurt yourself or someone else? Patient reports no desire to harm self or others. Onset of symptoms was February 19, 2023 at 22:00. 00:05 Method Of Arrival: Wheelchair pf1 00:05 Acuity: BRNENA 3 pf1 Historical: - Allergies: 00:27 Toradol; pf1 - PMHx: 00:27 CYSTIC FIBROSIS; ileus; intestinal disorder; pf1 - PSHx: 00:27 bilateral inguinal hernia repair; 1" of intestines removed; pf1 - Immunization history:: Adult Immunizations not up to date, Client reports having NOT received the Covid vaccine. Last tetanus immunization: > 10 years ago Flu vaccine is up to date. - Social history:: Smoking status: Patient denies any tobacco usage or history of. Patient/guardian denies using alcohol, street drugs. Screenin:29 [facility] ED Fall Risk Assessment (Adult) History of falling in the last 3 months, pf1 including since admission No falls in past 3 months (0 pts) Confusion or Disorientation No (0 pts) Intoxicated or Sedated No (0 pts) Impaired Gait No (0 pts) Mobility Assist Device Used No (0 pt) Altered Elimination No (0 pt) Score/Fall Risk Level 0 - 2 = Low Risk Oriented to surroundings, Maintained a safe environment, Educated pt \\T\\ family on fall prevention, incl call for assistance when getting out of bed, Assessed \\T\\ reinforced patient's understanding of fall precautions, Provided non-skid footwear, Hourly rounding (assess needs \\T\\ fall precautionary measures) done, Used ambulatory aids as needed (educated on \\T\\ assisted with), Used gait belt as appropriate. Abuse screen: Denies threats or abuse. Nutritional screening: No deficits noted. Tuberculosis screening: No symptoms or risk factors identified. Assessment: 00:30 General: Appears in no apparent distress. uncomfortable, slender, well groomed, well pf1 developed, Behavior is calm, cooperative, appropriate for age, quiet. Pain: Complains of pain in RUQ,RLQ Pain currently is 10 out of 10 on a pain scale. Quality of pain is described as sharp. Neuro: No deficits noted. Level of Consciousness is awake, alert, obeys commands, Oriented to person, place, time, situation. Cardiovascular: No deficits noted. Capillary refill < 3 seconds Patient's skin is warm and dry. Respiratory: No deficits noted. Airway is patent Trachea midline Respiratory effort is even, unlabored, Respiratory pattern is regular, symmetrical. GI: Abdomen is round distended, Patient stated LBM was 3-4 days ago, which is normal per patient stated Bowel sounds present X 4 quads. Abdomen is tender to palpation in right upper quadrant and right lower quadrant Abd is rigid X 4 quads. : No deficits noted. No signs and/or symptoms were reported regarding the genitourinary system. EENT: No deficits noted. No signs and/or symptoms were reported regarding the EENT system. Derm: No deficits noted. No signs and/or symptoms reported regarding the dermatologic system. Musculoskeletal: Circulation, motion, and sensation intact. Capillary refill < 3 seconds, Range of motion: intact in all extremities. 01:59 Reassessment: Patient and/or family updated on plan of care and expected duration. Pain vc1 level reassessed. nausea has improved, pain has not. Pt request "something stronger". 02:51 Reassessment: No changes from previously documented assessment. Patient and/or family vc1 updated on plan of care and expected duration. Pain level reassessed. 03:30 Reassessment: No changes from previously documented assessment. Patient and/or family vc1 updated on plan of care and expected duration. Pain level reassessed. Pt states his pain is still a 10/. 04:39 Reassessment: Patient appears in no apparent distress at this time. No changes from pf1 previously documented assessment. Patient and/or family updated on plan of care and expected duration. Pain level reassessed. Patient is alert, oriented x 3, equal unlabored respirations, skin warm/dry/pink. Patient states symptoms have not improved. Vital Signs: 00:05 BP 128 / 92; Pulse 77; Resp 16; Temp 97.6; Pulse Ox 100% on R/A; Weight 70.31 kg; pf1 Height 6 ft. 1 in. ; Pain 10/10; 00:45 BP 128 / 90; Pulse 78; Pulse Ox 100% ; vc1 02:01 BP 111 / 70; Pulse 79; Resp 16; Pulse Ox 98% ; vc1 02:30 BP 124 / 87; Pulse 75; Resp 16; Pulse Ox 98% ; vc1 03:15 BP 116 / 78; Pulse 77; Resp 17; Pulse Ox 96% on R/A; Pain 10/10; vc1 04:30 BP 116 / 72; Pulse 71; Resp 18; Pulse Ox 97% on R/A; Pain 10/10; pf1 00:05 Body Mass Index 20.45 (70.31 kg, 185.42 cm) pf1 00:05 Pain Scale: Adult pf1 03:15 Pain Scale: Adult vc1 04:30 Pain Scale: Adult pf1 ED Course: 00:08 Patient arrived in ED. [id number] 00:14 Beena Zuñiga MD is Attending Physician. sd2 00:27 Triage completed. pf1 00:29 No provider procedures requiring assistance completed. pf1 00:30 Patient has correct armband on for positive identification. Bed in low position. Call pf1 light in reach. 00:55 Accessed US guided IV using ,sterile technique, per hospital protocol. Clean \\T\\ dry. pf1 Dressing intact. Good blood return. Flushes easily. 20 gauge inserted to right upper arm. 01:01 CT Abd/Pelvis - IV Contrast Only Sent. vc1 01: CBC with Diff Sent. vc1 01:01 CMP Sent. vc1 01:01 Lipase Sent. vc1 01:01 Urinalysis w/ reflexes Sent. vc1 01:02 Kate Olmos, RN is Primary Nurse. vc1 01:33 Arm band placed on left wrist. vc1 01:54 CT Abd/Pelvis - IV Contrast Only In Process Unspecified. EDMS 05:02 Patient transferred, IV remains in place. pf1 Administered Medications: 01:01 Drug: Ondansetron IVP 4 mg Route: IVP; Site: right upper arm; vc1 02:00 Follow up: Response: No adverse reaction; Marked relief of symptoms pf1 01:01 Drug: NS 0.9% IV 500 ml Route: IV; Rate: bolus; Site: right upper arm; vc1 02:00 Follow up: Response: No adverse reaction; Marked relief of symptoms; IV Status: pf1 Completed infusion; IV Intake: 500ml 01:02 Drug: morphine IVP or IV 4 mg Route: IVP; Infused Over: 4 mins; Site: right upper arm; vc1 02:00 Follow up: Response: No adverse reaction; Marked relief of symptoms; Pain is unchanged, pf1 physician notified 02:06 Drug: morphine IVP or IV 4 mg Route: IVP; Infused Over: 4 mins; Site: right upper arm; vc1 03:00 Follow up: Response: No adverse reaction; Marked relief of symptoms; Pain is unchanged, pf1 physician notified 04:17 Drug: Pantoprazole IVP 40 mg Route: IVP; Site: right upper arm; vc1 04:41 Follow up: Response: No adverse reaction; Marked relief of symptoms; Pain is decreased pf1 04:47 Drug: morphine IVP or IV 4 mg Route: IVP; Infused Over: 4 mins; Site: right upper arm; pf1 04:50 Follow up: Response: No adverse reaction; Marked relief of symptoms; Pain is decreased pf1 Medication: 01:34 VIS not applicable for this client. vc1 Intake: 02:00 IV: 500ml; Total: 500ml. pf1 Outcome: 02:52 ER care complete, transfer ordered by . sd2 04:59 Transferred by ground EMS to [facility], Transfer form completed. pf1 X-rays sent w/ patient. 04:59 Condition: stable 04:59 Instructed on the need for transfer, Demonstrated understanding of instructions. 05:00 Transferred Note: Patient report given to Priyajarodluisa with [facility] and receiving pf1 nurse at [facility] at the . 05:18 Patient left the ED. pf1 Signatures: Dispatcher [employer] EDMS Lyndsay Goldstein [email or web address] Kate Olmos RN RN vc1 Beena Zuñiga MD MD sd2 Sylvie mcclure RN RN pf1 Corrections: (The following items were deleted from the chart) 05:18 04:59 Instructed on the need for transfer, Demonstrated understanding of instructions, pf1 pf1
--- NOTE | 2023-02-20 02:52 | EDPHYS ---
Physician Documentation [facility] Name: Matt Robles Age: 47 yrs Sex: Male : 1975 Arrival Date: 02/20/2023 Time: 00:06 Bed 6 Private MD: ED Physician Beena Zuñiga HPI: 02/20 00:30 This 47 yrs old Black Male presents to ER via Wheelchair with complaints of Abdominal sd2 Cramping, Abdominal Pain. 00:30 47 yo M presents with CC of abdominal pain and distention that started today. He has a sd2 history of cystic fibrosis and was last seen here for similar symptoms due to ileus and LIONEL as a result of his cystic fibrosis which he follows with specialists at [facility]. Endorses associated nausea without vomiting. Hx of chronic constipation and last BM was 3-4 days ago which pt states this is normal for him. 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 Historical: - Allergies: 00:27 Toradol; pf1 - PMHx: 00:27 CYSTIC FIBROSIS; ileus; intestinal disorder; pf1 - PSHx: 00:27 bilateral inguinal hernia repair; 1" of intestines removed; pf1 - Immunization history:: Adult Immunizations not up to date, Client reports having NOT received the Covid vaccine. Last tetanus immunization: > 10 years ago Flu vaccine is up to date. - Social history:: Smoking status: Patient denies any tobacco usage or history of. Patient/guardian denies using alcohol, street drugs. ROS: 00:30 Constitutional: Negative for fever, chills, and weight loss, Eyes: Negative for injury, sd2 pain, redness, and discharge, Cardiovascular: Negative for chest pain, palpitations, and edema, Respiratory: Negative for shortness of breath, cough, wheezing. 00:30 : Negative for dysuria, frequency or hematuria. MS/Extremity: Negative for injury and deformity, Skin: Negative for injury, rash, and discoloration, Neuro: Negative for headache, numbness and tingling. 00:30 Abdomen/GI: Positive for abdominal pain, nausea, constipation, abdominal distension, Negative for vomiting, diarrhea. Exam: 00:30 Constitutional: This is a well developed, well nourished patient who is awake, alert, sd2 and in no acute distress. Head/Face: Normocephalic, atraumatic. Eyes: EOMI, normal conjunctiva bilaterally Chest/axilla: Normal chest wall appearance and motion. Nontender with no deformity. Cardiovascular: Regular rate and rhythm with a normal S1 and S2. No gallops, murmurs, or rubs. 2+ distal pulses. Respiratory: Lungs have equal breath sounds bilaterally, clear to auscultation and percussion. No rales, rhonchi or wheezes noted. No increased work of breathing, no retractions or nasal flaring. Abdomen/GI: Soft, moderate distention noted with RLQ and RUQ TTP, no rebound or guarding Skin: Warm, dry with normal turgor. Normal color with no rashes, no lesions, and no evidence of cellulitis. MS/ Extremity: Pulses equal, no cyanosis. Neurovascular intact. Full, normal range of motion. Ambulatory without difficulty. Psych: Awake, alert, with orientation to person, place and time. Behavior, mood, and affect are within normal limits. Vital Signs: 00:05 BP 128 / 92; Pulse 77; Resp 16; Temp 97.6; Pulse Ox 100% on R/A; Weight 70.31 kg; pf1 Height 6 ft. 1 in. ; Pain 10/10; 00:45 BP 128 / 90; Pulse 78; Pulse Ox 100% ; vc1 02:01 BP 111 / 70; Pulse 79; Resp 16; Pulse Ox 98% ; vc1 02:30 BP 124 / 87; Pulse 75; Resp 16; Pulse Ox 98% ; vc1 03:15 BP 116 / 78; Pulse 77; Resp 17; Pulse Ox 96% on R/A; Pain 10/10; vc1 04:30 BP 116 / 72; Pulse 71; Resp 18; Pulse Ox 97% on R/A; Pain 10/10; pf1 00:05 Body Mass Index 20.45 (70.31 kg, 185.42 cm) pf1 00:05 Pain Scale: Adult pf1 03:15 Pain Scale: Adult vc1 04:30 Pain Scale: Adult pf1 MDM: 00:14 Patient medically screened. sd2 00:30 Differential diagnosis: Gastritis, cholecystitis, pancreatitis, SBO, diverticulitis, sd2 kidney stone, appendicitis, UTI, dehydration, electrolyte abnormality among others. Data reviewed: vital signs, nurses notes, old medical records, Reviewed records in Epic from prior hospitalization/transfer for ileus lab test result(s), radiologic studies. Care significantly affected by the following chronic conditions: Cystic Fibrosis. 02:49 Consideration of Admission/Observation Escalation of care including sd2 admission/observation considered. Management of patient was discussed with the following: transfer center. I considered the following discharge prescriptions or medication management in the emergency department Medications were administered in the Emergency Department. See MAR. External Records Reviewed: Inpatient record: Hospitalizations last year for similar symptoms at [facility]. Counseling: I had a detailed discussion with the patient and/or guardian regarding: the historical points, exam findings, and any diagnostic results supporting the discharge/admit diagnosis, lab results, radiology results, the need to transfer to another facility. Response to treatment: the patient's symptoms have mildly improved after treatment. ED course: Labs and imaging reviewed and discussed with patient. Multiple partial small bowel obstructions. He is usually managed by GI and his physician, Dr. Lundberg, [facility] and would like to be transferred. We do not currently have GI incident response lead either. Pt to be transferred for this reason and is currently stable for transfer. . 02/20 00:24 Order name: CBC with Diff; Complete Time: :02/20 00:24 Order name: CMP; Complete Time: :02/20 00:24 Order name: Lipase; Complete Time: :02/20 00:24 Order name: Urinalysis w/ reflexes; Complete Time: :14 02/20 03:01 Order name: SARS RAPID; Complete Time: 03:23 02/20 00:24 Order name: CT Abd/Pelvis - IV Contrast Only 02/20 00:24 Order name: IV Saline Lock; Complete Time: 01:02/20 00:24 Order name: Labs collected and sent; Complete Time: : sd Administered Medications: 01:01 Drug: Ondansetron IVP 4 mg Route: IVP; Site: right upper arm; vc1 02:00 Follow up: Response: No adverse reaction; Marked relief of symptoms pf1 01:01 Drug: NS 0.9% IV 500 ml Route: IV; Rate: bolus; Site: right upper arm; vc1 02:00 Follow up: Response: No adverse reaction; Marked relief of symptoms; IV Status: pf1 Completed infusion; IV Intake: 500ml 01:02 Drug: morphine IVP or IV 4 mg Route: IVP; Infused Over: 4 mins; Site: right upper arm; vc1 02:00 Follow up: Response: No adverse reaction; Marked relief of symptoms; Pain is unchanged, pf1 physician notified 02:06 Drug: morphine IVP or IV 4 mg Route: IVP; Infused Over: 4 mins; Site: right upper arm; vc1 03:00 Follow up: Response: No adverse reaction; Marked relief of symptoms; Pain is unchanged, pf1 physician notified 04:17 Drug: Pantoprazole IVP 40 mg Route: IVP; Site: right upper arm; vc1 04:41 Follow up: Response: No adverse reaction; Marked relief of symptoms; Pain is decreased pf1 04:47 Drug: morphine IVP or IV 4 mg Route: IVP; Infused Over: 4 mins; Site: right upper arm; pf1 04:50 Follow up: Response: No adverse reaction; Marked relief of symptoms; Pain is decreased pf1 Disposition Summary: 02/20/23 02:52 Transfer Ordered Transfer Location: [facility] sd2 Reason: Higher level of care sd2 Condition: Stable sd2 Problem: new sd2 Symptoms: have improved sd2 Accepting Physician: Doctor(02/20/23 05:18) pf1 Diagnosis - Partial small bowel obstruction sd2 - History of Cystic Fibrosis sd2 Forms: - Medication Reconciliation Form sd2 - SBAR form sd2 Signatures: Dispatcher [employer] Kate Dill RN RN vc1 Beena Zuñiga MD MD sd2 Sylvie mcclure RN RN pf1 Corrections: (The following items were deleted from the chart) : 02:52 Doctor sd2 pf1
[2023-02-20 03:22] LABS: SARS-CoV-2 Antigen Rapid Res Negative (Negative)
[2023-02-20] MEDS ORDERED: PANTOPRAZOLE 40 MG INJ ONE (04:18)
[2023-02-20 05:28] VITALS: BP 116/72; O2SAT 97
--- NOTE | 2023-02-22 14:31 | RAD REPORT ---
EXAM DESCRIPTION: CT Abdomen and Pelvis COMPARISON: CT abdomen pelvis October 12, 2022 CLINICAL HISTORY: [facility] abdominal pain and distention TECHNIQUE: CT of the abdomen and pelvis was acquired with IV contrast material. Coronal and sagitt al reconstructions were obtained. Automated exposure control was utilized on this examination as a dose lowering technique. FINDINGS: Lung bases: Clear. Liver: Normal. Gallbladder and biliary: Normal gallbladder. Unremarkable biliary tree. Pancreas: Fatty infiltration. Spleen: Normal. Adrenal glands: Normal adrenal glands. Kidneys: 5 mm nonobstructing left renal calculus. Stomach and Small Bowel: Mild gastric antral wall thickening. Duodenal wall thickening. Scattered sma ll bowel wall thickening. Severe dilatation of multiple loops of small bowel. Multiple transition poi nts are present at segments of bowel with severe thickening, such as that seen on series 201 image 29 in the left abdomen. Urinary bladder: Normal. Prostate/Male Urogenital: Normal. Colon and Appendix: Surgical changes of the proximal colon. Diffuse colonic wall thickening. No evide nce of appendicitis. Retroperitoneum and lymph nodes: Retroperitoneal lymph nodes are increased in number but not in size and are likely reactive. Vascular: Unremarkable. Peritoneal cavity: No ascites or free air. Musculoskeletal and soft tissues: Soft tissues are unremarkable. No aggressive bone lesions. No com pression fracture. IMPRESSION: 1. Multiple dilated loops of bowel are likely due to multiple partial obstructions from scattered areas of infectious or inflammatory enterocolitis, most prominently in the left upper quadr ant. 2. Antral gastritis. Electronically signed by: Jackson Hernandez MD 02/20/2023 2:18 AM CDT Due to temporary technical issues with the PACS/Fluency reporting system, reports are being signed by the in house radiologist without review as a courtesy to ensure prompt reporting. The interpreting r adiologist is fully responsible for the content of the report.
== END 2023-02-20 05:18 | disposition short-term general hospital (02) ==
LOC: ER 00:06
DX: K56.600 Partial intestinal obstruction, unspecified as to cause (principal); E84.9 Cystic fibrosis, unspecified; Z20.822 Contact with and (suspected) exposure to COVID-19; Z88.5 Allergy status to narcotic agent
CPT/HCPCS: 96361; 85025; 36415; 81003; 83690; 80053; 74177; 96375; 96374; 99285; 87811; Q9967; C9113; J2405; J7040

== ENCOUNTER 2023-04-10 19:28 | Emergency (ER) | payer OTHER ==
--- OUTSIDE RECORDS SUMMARY | 2023-04-10 19:52 | XMS REPORT | Continuity of Care Document ---
:1975 Author Organization [facility] t Address [address] [place] [address] [address] [place] [address] Care Team Providers Name Role Phone RADHA BURCH Primary Care Physician Unavailable POOL RODRIGUEZ Attending Clinician Unavailable SOFIYA CHOI Attending Clinician Unavailable Radha Burch MD Attending Clinician Phil Arredondo Attending Clinician Martha GUERRERO, Stefano In H Attending Clinician STEFANO BRUMFIELD IN Attending Clinician Unavailable Jesus Ewing MD Attending Clinician [phone] Debi Briggs MD Attending Clinician Mari GUERRERO, Kari Weeks Attending Clinician [phone] Sandoval Lipscomb MD Attending Clinician [phone] SANDOVAL LIPSCOMB Attending Clinician Unavailable Rupesh WEST, Oksana Lewis Attending Clinician [phone] DEBI BRIGGS Attending Clinician Unavailable Kamryn GUERRERO, Meredith Arredondo Attending Clinician [phone] Roberth GUERRERO, Chaparro Clay Attending Clinician Larry GUERRERO, Coty Phelan Attending Clinician [phone] Tonny Meneses MD Attending Clinician TONNY MENESES Attending Clinician Unavailable Amor Napier MD Attending Clinician Jacob Calle DO Attending Clinician Honey Painter MD Attending Clinician Saul Ramsey MD Attending Clinician SAUL RAMSEY Attending Clinician Unavailable Brad Galindo DO Attending Clinician Jose Arana MD Attending Clinician Pratik Layton MD Attending Clinician [phone] PRATIK LAYTON Attending Clinician Unavailable Puma Kent MD Attending Clinician PUMA KENT Attending Clinician Unavailable WILLIS GEORGE Attending Clinician Unavailable Balwinder Rebolledo MD Attending Clinician [phone] hCarlene Pearson MD Attending Clinician CHARLENE PEARSON Attending Clinician Unavailable SAMMI CABELLO Attending Clinician Unavailable RADHA BURCH Attending Clinician Unavailable ELIGIO ROSENTHAL Attending Clinician Unavailable AMOR NAPIER Attending Clinician Unavailable CYN RECINOS Attending Clinician Unavailable Shannon Momin DO Attending Clinician SHANNON MOMIN Attending Clinician Unavailable COTY ELENA Attending Clinician Unavailable JESUS EWING Attending Clinician Unavailable BRYSON ZAZUETA Attending Clinician Unavailable DEANDRA ACUÑA Attending Clinician Unavailable RAMAN PANTOJA Attending Clinician Unavailable SHEEBA MOORE Attending Clinician Unavailable CESARIO SOUSA Attending Clinician Unavailable ERICK NO Attending Clinician Unavailable MILAGRO JAMES Attending Clinician Unavailable MIAN SOTELO Attending Clinician Unavailable VIJAY LOGAN Attending Clinician Unavailable CYN CASILLAS Attending Clinician Unavailable JOSE ARANA Admitting Clinician Unavailable STEFANO BRUMFIELD Admitting Clinician Unavailable [...] Number Effective Date Expiration Date S kimberly [facility] [id number] 2021 PLAN 00:00:00 [employer] MEDICARE [id number] 2023 00:00:00 MEDICAID OF [place] [id number] 2021 00:00:00 MEDICARE A B [id number] 2020 00:00:00 CDC REVIEW [id number] 2020 00:00:00 Problems Condition Condition Condition Status Onset Resolution Last Treating Co mments Source Name Details Category Date Date Treatment Clinician Date Ileus Ileus Disease Recurre 2021-[address] [facility] 00 [place] Enterocoli Enterocoli Disease Active [facility] tis tis 2-18 [facility]: [facility] 00 [place] 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 2-16 [facility] y with y with 00:00: Medical colonic colonic 00 Center stricture stricture Generalize Generalize Disease Active 2020-[address] d d 0-23 [facility] abdominal abdominal 00:00: [facility] jf pain pain 00 Center Bowel Bowel Disease Recurre [facility] obstructio obstructio nce 1-16 [facility] n n 00:00: Medical 00 [place] Nausea Nausea Disease Active [facility] 1[facility]16 [facility] 00 [place] Ileus Ileus Disease Recurre [facility] 1[facility]11 [facility]: [facility] 00 [place] Pain of Pain of Disease Active [facility] upper upper 1-06 [facility] abdomen abdomen 00:00: Medical 00 [place] Distal Distal Disease Recurre [facility] intestinal intestinal nce 8- [facility]es obstructio obstructio 00:00: Me dical n syndrome n syndrome 00 Ce nter Acute Acute Disease Active [facility] abdominal abdominal 7-29 [facility] pain pain 00:00: Medical 00 [place] Bilateral Bilateral Disease Active [facility] renal renal 04-17 [facility] stones stones 00:00: Medical 00 [place] Hydrourete Hydrourete Disease Active [facility] r, left r, left 04-17 [facility] 00:[facility]: [facility] 00 [place] Hydronephr Hydronephr Disease Active [facility] osis with osis with 04-17 [facility] ureteropel ureteropel 00:00: Me dical angel angel 00 [place] junction junction (UPJ) (UPJ) obstructio obstructio n n Acute left Acute left Disease Active [facility] flank pain flank pain 7 [facility] 00:00: Medical 00 Center Gastrointe Gastrointe Disease Active [facility] stinal stinal 8- [facility] dysmotilit dysmotilit 00:00: Me dical y y 00 Center Hyponatrem Hyponatrem Disease Active [facility] ia ia 6-15 [facility] 00:[facility]: Medical [place] MATHEW (acute MATHEW (acute Disease Active [facility] kidney kidney 6-13 [facility] injury) injury) 00:00: Medical 00 [place] Bronchiect Bronchiect Disease Recurre [facility] asis asis nce 6-13 [facility]: Medical Center Hyponatrem Hyponatrem Disease Active [facility] ia ia 6-13 [facility] Center Other Other Disease Recurre [facility] constipati constipati nce 1-17 [facility] on on 00:00: Medical [place] Partial Partial Disease Recurre 2017-[address] [facility] [...] Ce nter n n 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 nce 9-20 [facility] 00:[facility]: Medical [place] No known No known Disease Unive rs active active ity of problems problems [facility] Abdominal Abdominal Disease Resolve 2022-09-26 2022-09-[address] distention distention d 5-13 00:00:00 07:23:26 [facility] Medical [place] LIONEL LIONEL Disease Resolve 2017-102022-09-24 2022-09-[address] (distal (distal d 0-08 00:00:00 16:04:41 [facility] intestinal intestinal 00:00: Me dical obstructio obstructio 00 Ce nter n n syndrome) syndrome) Allergies, Adverse Reactions, Alerts Allergy Allergy Status Severity Reaction(s) Onset Inactive Treating Comm ents Source Name Type Date Date Clinician Ketorola Propensi Active [facility] Univer s c ty to 10-18 ity of adverse 00:00: [place] reaction [address] [place] [address] KETOROLA DRUG Active [facility] Univers C INGREDI 10-18 ity of 00:00: [place] 00 [facility] Branch Ketorola Drug Active Hives [facility] c [...] Stop Date Source Natural brother Cystic fibrosis [facility] Natural mother Lupus [facility] Center Natural father Heart disease [facility] Social History Social Habit Start Date Stop Date Quantity Comments Source History [facility] Non-Med Medical Center History [facility] 2022-09-08 2022-09-[address] [facility] Housing Unable to 00:00:00 00:00:00 Medical Center Pay History [facility] 2022-09-08 2022-09-[address] [facility] Housing Places 00:00:00 00:00:00 Medical Ce nter Lived History [facility] 2022-09-08 2022-09-[address] [facility] Housing Homeless 00:00:00 00:00:00 Medical Center Last Year History [facility] 2022-09-08 2022-09-[address] [facility] Transport Med 00:00:00 00:00:[address] Alcohol intake 2022-09-07 2022-09-[address] Armando es 00:00:00 00:00:00 non-drinker of Medical Ce nter alcohol (finding) Exposure to 2022-08-27 2022-09-[address] [facility] SARS-CoV-2 (event) 00:00:00 20:59:00 [facility] Tobacco use and 2018-06-29 2018-06-29 Sm[address] [facility] exposure 00:00:00 00:00:00 non-user Medical Center Sex Assigned At [address] [facility]re kes 00:00:00 00:00:00 Medical Center Smoking Status Start Date Stop Date Source Unknown if ever smoked [facility] [place] [facility] [place] Never smoked tobacco [facility] Medications Ordered Filled Start Stop Current Ordering Indication Dosage Frequency Signature Comments Components Source Medication Medication Date Date Medication? Clinician (SIG) [facility]-10 Yes 1{capsu Q.5D Take 1 [facility] [...] COMPLETE daily. FORMULATION D5000 ORAL) polyethylen 2021-10 No 17g Q.25D Take [address] e glycol 2-18 12-18 by mouth 4 Luheidy s (GLYCOLAX) 15:41: 00:00 (four) Medi jf [...] Enem daily as needed (severe constipati on). docusate 2021-10- No 283mg Place 5 [facility] [...] Take [address] e glycol 218 18 by mouth 4 [facility] (GLYCOLAX) 00:00: 00:00 (four) Medi jf 17 gram 00 :00 times Center packet daily. pedi 2021-10 Yes [...] gram 27 times Center packet daily. plecanatide 2021-10 No 3mg QD Take [address] (Trulance) 11-12- by mouth [facility] 3 mg Tab 14:02: 00:00 daily. Medica l 54 :00 [facility] 2021-10 No 50mg Q.5D Take [address] (Ibsrela) 11-12 by mouth 2 Armando es 50 mg Tab 14:02: 00:00 (two) Medica l 54 :00 times Center daily. plecanatide 2021-10 No 3mg QD Take [address] (Trulance) 11-12 by mouth Luke s 3 mg Tab 14:02: 00:00 daily. Medica l 54 :00 Center [facility] 2021-10- No 50mg Q.5D Take [address] (Ibsrela) 2- by mouth 2 Armando es 50 mg Tab 14:02: 00:00 (two) Medica l 54 :00 times Center daily. plecanatide 2021-10- No 3mg QD Take [address] (Trulance) 11-12-03 by mouth Luke s 3 mg Tab 14:02: 00:00 daily. Medica l 54 :00 Center [facility] 2021-10- No 50mg Q.5D Take [address] (Ibsrela) 11-12 by mouth 2 Armando es 50 mg Tab 14:02: 00:00 (two) Medica l 54 :00 times Center daily. plecanatide 2021-10- No 3mg QD Take [address] (Trulance) 11-12 by mouth Luke s 3 mg Tab 14:02: 00:00 daily. Medica l 54 :00 [facility] 2021-10- No 50mg Q.5D Take [address] (Ibsrela) 11-12 by mouth 2 Armando es 50 mg Tab 14:02: 00:00 (two) Medica l 54 :00 times Center daily. plecanatide 2021-10- No 3mg QD Take [address] (Trulance) 11-12 by mouth Luke s 3 mg Tab 14:02: 00:00 daily. Medica l 54 :00 [facility] 2021-10- No 50mg Q.5D Take [address] (Ibsrela) 11-12 by mouth 2 Armando es 50 mg Tab 14:02: 00:00 (two) Medica l 54 :00 times Center daily. plecanatide 2021-10- No 3mg QD Take [address] (Trulance) 11-12 by mouth Luke s 3 mg Tab 14:02: 00:00 daily. Medica l 54 :00 [facility] 2021-10- No 50mg Q.5D Take [address] (Ibsrela) 11-12 by mouth 2 Armando es 50 mg Tab 14:02: 00:00 (two) Medica l 54 :00 times Center daily. plecanatide 2021-10- No 3mg QD Take [address] (Trulance) 209-11 by mouth Luke s 3 mg Tab 14:02: 00:00 daily. Medica l 54 :00 [facility] 2021-10- No 50mg Q.5D Take [address] (Ibsrela) 209-11 by mouth 2 Armando es 50 mg Tab 14:02: 00:00 (two) Medica l 54 :00 times Center daily. plecanatide 2021-10 3mg QD Take [address] (Trulance) 2- 12-03 by mouth Luke s 3 mg Tab 14:02: 00:00 daily. Medica l 54 :00 Center [facility] 2021-10 No 50mg Q.5D Take [address] (Ibsrela) 2- 12 by mouth 2 Armando es 50 mg Tab 14:02: 00:00 (two) Medica l 54 :00 times Center daily. [facility]-10 Yes 50mg Q.5D Take [address] (Ibsrela) 2-03 by mouth 2 [facility] s 50 mg Tab 00:00: (two) Medical 00 times Center daily. plecanatide 2021-10 Yes 3mg QD Take [address] (Trulance) 2-03 by mouth [facility] 3 mg Tab 00:00: daily. [address] 2021-10 Yes 50mg Q.5D Take [address] (Ibsrela) 2-03 by mouth 2 [facility] s 50 mg Tab 00:00: (two) Medical 00 times [place] daily. plecanatide 2021-10 Yes 3mg QD Take [address] (Trulance) 2-03 by mouth [facility] 3 mg Tab 00:00: daily. [address] 2021-10 Yes 50mg Q.5D Take [address] (Ibsrela) 2-03 by mouth 2 [facility] s 50 mg Tab 00:00: (two) Medical 00 times Center daily. plecanatide 2021-10 Yes 3mg QD Take [address] (Trulance) 2-03 by mouth [facility] 3 mg Tab 00:00: daily. [address] 2021-10 Yes 50mg Q.5D Take [address] (Ibsrela) 2-03 by mouth 2 [facility] s 50 mg Tab 00:00: (two) Medical 00 times Center daily. plecanatide 2021-10 Yes 3mg QD Take [address] (Trulance) 2-03 by mouth [facility] 3 mg Tab 00:00: daily. [address] 2021-10 Yes 50mg Q.5D Take [address] (Ibsrela) 2-03 by mouth 2 [facility] s 50 mg Tab 00:00: (two) Medical 00 times Center daily. plecanatide 2021-10 Yes 3mg QD Take [address] (Trulance) 2-03 by mouth [facility] 3 mg Tab 00:00: daily. [address] 2021-10 Yes 50mg Q.5D Take [address] (Ibsrela) 2-03 by mouth 2 [facility] s 50 mg Tab 00:00: (two) [facility] 00 times [place] daily. plecanatide 2021-10 Yes 3mg QD Take [address] (Trulance) 2-03 by mouth [facility] 3 mg Tab 00:00: daily. [address] 2021-10 Yes 50mg Q.5D Take [address] (Ibsrela) 2-03 by mouth 2 [facility] 50 mg Tab 00:00: (two) [facility] 00 times [place] daily. plecanatide 2021-10 Yes 3mg QD Take [address] (Trulance) 2-03 by mouth [facility] 3 mg Tab 00:00: daily. [address] 2021-10 Yes 50mg Q.5D Take [address] (Ibsrela) 2-03 by mouth 2 [facility] s 50 mg Tab 00:00: (two) [facility] 00 times [place] daily. plecanatide 2021-10 Yes 3mg QD Take [address] (Trulance) 2-03 by mouth [facility] 3 mg Tab 00:00: daily. [address] polyethylen 2021-10 Yes 17g Q.25D Take [...] Take [address] (Trulance) - by mouth [facility] 3 mg Tab 20:27: daily. [place] [address] Center tenapanor 2021-10 Yes 50mg Q.5D Take [address] (Ibsrela) 11-07 by mouth 2 Luke s 50 mg [...] St e glycol 9-18 09-18 mLs by Tayla (SmithaYTELY,N 00:00: 23:59 mouth once Medical uLYTELY) [...] packet daily for 3 days. polyethylen 2021-0 202- No 34g Q.5D Take [address] e glycol 06-22 09-16 by mouth 2 Luke s (GLYCOLAX) 00:00: 23:59 (two) Medic al 17 gram 00 :00 times Center packet daily for 3 days. polyethylen 2021-0 2022- No 34g Q.5D Take [address] e glycol - 09-16 by mouth 2 Luke s (GLYCOLAX) 00:00: 23:59 (two) Medic al 17 gram 00 :00 times Center packet daily for 3 days. polyethylen 2021-0 2022- No 34g Q.5D Take [address] e glycol 06-22-16 by mouth 2 Luke s (GLYCOLAX) 00:00: 23:59 (two) Medic al 17 gram 00 :00 times Center packet daily for 3 days. polyethylen 2021-0 202- No 34g Q.5D Take [address] e glycol - 0916 by mouth 2 Luke s (GLYCOLAX) 00:00: 23:59 (two) Medic al 17 gram 00 :00 times Center packet daily for 3 days. polyethylen 2021-0 2021- No 34g Q.5D Take [address] e glycol 06-22 0916 by mouth 2 Luke s (GLYCOLAX) 00:00: [...] [facility] e glycol 3-01 mLs by [place] (GoLYTELY,N 00:00: mouth as Me dical uLYTELY) 00 needed Center 236-22.74-6 (constipat .74 -5.86 ion). gram solution prucaloprid 2021-0 Yes 2mg QD Take [address] e 2 mg Tab 3-01 by mouth [facility] 00:00: daily. Medical 00 [place] prucaloprid 2021-0 2022- No 2mg QD Take [address] e 2 mg Tab 12-08 by mouth Luke s 00:00: 00:00 daily. Medical 00 :00 [place] prucaloprid 2021-0 2022- No 2mg QD Take [address] [facility] e 2 mg Tab 12-08 by mouth Luke s 00:00: 00:00 daily. Medical 00 :00 [place] prucaloprid 2021-0 2022- No 2mg QD Take [address] [facility] e 2 mg Tab 12-08 by mouth Luke s 00:00: 00:00 daily. Medical 00 :00 [place] prucaloprid 2021-0 2022- No 2mg QD Take [address] [facility] e 2 mg Tab 12-08 by mouth Luke s 00:00: 00:00 daily. Medical 00 :00 [place] prucaloprid 2021-0 2022- No 2mg QD Take [address] [facility] e 2 mg Tab 12-08 by mouth Luke s 00:00: 00:00 daily. Medical 00 :00 [place] prucaloprid 2021-0 2022- No 2mg QD Take [address] e 2 mg Tab 12-08 by mouth Luke s 00:00: 00:00 daily. Medical 00 :00 [place] prucaloprid 2021-0 2022- No 2mg QD Take [address] e 2 mg Tab 12-08 by mouth Luke s 00:00: 00:00 daily. Medical 00 :00 [place] prucaloprid 2021-0 2022- No 2mg QD Take [address] e 2 mg Tab 12-08 by mouth Luke s 00:00: 00:00 daily. Medical 00 :00 [place] prucaloprid 2021-0 2022- No 2mg QD Take [address] e 2 mg Tab 12-08 by mouth Luke s 00:00: 00:00 daily. Medical 00 :00 [place] polyethylen 2021-0 2- No 4000mL Take 4,[address] e glycol 12-08 09-18 mLs by Bere[place] (GoLYTELY,N 00:00: 00:00 mouth as M edical [...] e glycol 3-01 09-18 mLs by [facility] (ColleenLY,N 00:00: 00:00 mouth [...] Take 4,[address] e glycol 2-28 03- mLs by [facility] (ColleenLY,N 00:00: 00:00 [...] Take 4,[address] e glycol 2-28 03- mLs by [facility] (ColleenLY,N 00:00: 00:00 mouth as M edical uLYTELY) 00 :00 needed Center 236-22.74-6 (constipat .74 -5.86 ion). gram solution prucaloprid 2-0 2022- No 2mg QD Take [address] e 2 mg Tab 12-07 by mouth Luke s 00:00: 00:00 daily. Medical 00 :00 Center polyethylen 2021-0 2022- No 4000mL Take 4,[address] e glycol -04 01- mLs by [facility] (ColleenLY,N 00:00: 00:00 mouth as M edical uLYTELY) 00 :00 needed [place] 236-22.74-6 (constipat .74 -5.86 ion). gram solution prucaloprid 2021-0 2022- No 2mg QD Take [address] e 2 mg Tab 12-07 by mouth Luke s 00:00: 00:00 daily. Medical 00 :00 [place] polyethylen 2021-0 2022- No 4000mL Take 4,[address] e glycol 12-07 mLs by [facility] (Latesha,N 00:00: 00:00 mouth as M edical uLYTELY) 00 :00 needed [place] 236-22.74-6 (constipat .74 -5.86 ion). gram solution prucaloprid 2021-0 2022- No 2mg QD Take [address] e 2 mg Tab 12-07 by mouth Luke s 00:00: 00:00 daily. Medical 00 :00 [place] polyethylen 2021-0 2- No 4000mL Take 4,[address] e glycol 12-07 mLs by [facility] (Latesha,N 00:00: 00:00 mouth as M edical uLYTELY) 00 :00 needed [place] 236-22.74-6 (constipat .74 -5.86 ion). gram solution prucaloprid 2-0 2022- No 2mg QD Take [address] [facility] e 2 mg Tab 12-07 by mouth Luke s 00:00: 00:00 daily. Medical 00 :00 [place] multivitami 2021-0 3- No 1{tbl} QD Take [address] n 12-02 tablet by Berekes (THERAGRAN) 00:00: 23:59 mouth Medi jf tablet 00 :00 daily. [place] multivitami 2021- No 1{tbl} QD Take [address] n 2-23 11-29 tablet by [facility] ([employer]) 00:00: 00:00 mouth Medi jf tablet 00 :00 daily. [place] multivitami 2021- No 1{tbl} QD Take [address] n 2-23 11-29 tablet by [facility] (THERAGRAN) 00:00: 00:00 mouth Medi jf tablet 00 :00 daily. [place] multivitami 2021- No 1{tbl} QD Take [address] n 2-23 11-29 tablet by [facility] (THERAGRAN) 00:00: 00:00 mouth Medi jf tablet 00 :00 daily. [place] multivitami 2021- No 1{tbl} QD Take [address] n 2-23 11-29 tablet by [facility] (THERAGRAN) 00:00: 00:00 mouth Medi jf tablet 00 :00 daily. [place] multivitami 2021- No 1{tbl} QD Take [address] n 2-23 11-29 tablet by [facility] (THERTMSAN) 00:00: 00:00 mouth Medi jf tablet 00 :00 daily. [place] multivitami 2021- No 1{tbl} QD Take [address] n 2-23 11-29 tablet by [facility] (THERAGRAN) 00:00: 00:00 mouth Medi jf tablet 00 :00 daily. [place] multivitami 2021- No 1{tbl} QD Take [address] n 2-23 11-29 tablet by [facility] (THERAGRAN) 00:00: 00:00 mouth Medi jf tablet 00 :00 daily. [place] multivitami 2- No 1{tbl} QD Take [address] n 2-23 11-29 tablet by [facility] (THERAGRAN) 00:00: 00:00 mouth Medi jf tablet 00 :00 daily. [place] multivitami 2- No 1{tbl} QD Take [address] n 2-23 11-29 tablet by [facility] (THERAGRAN) 00:00: 00:00 mouth Medi jf tablet 00 :00 daily. Center lubiproston 2021- Yes 72ug Q.5D Take [address] [facility] [address] [...] night as needed (sleep). melatonin 5 2020-10 5mg Take [address] mg Tab 0-28 -29 tablet (5 [facility] tablet 00:00: 00:00 mg total) Medic al 00 :00 by mouth Center every night as needed (sleep). lubiproston 2020-10 72ug Q.5D Take [address] e [...] 00 :00 times Center packet daily. magnesium 2021-0 2022- No 400mg Q.5D Take [address] oxide 7- 07-07 tablet [facility] (MAG-OX) 00:00: 23:59 (400 mg Medic al 400 mg 00 :00 total) by Center (241.3 mg mouth 2 magnesium) (two) tablet times daily. polyethylen 2020-0 2- No 34g Q.25D Take 34 g CH[facility] [...] magnesium) (two) tablet times daily. polyethylen 2020-0 2- No 34g Q.25D Take [address] e glycol -04 15-07 by mouth 4 Luke s (GLYCOLAX) 00:00: 23:59 (four) Medi jf 17 gram 00 :00 times Center packet daily. magnesium 2020-0 2021- No 400mg Q.5D Take [address] oxide 7-04 15- tablet [facility] (MAG-OX) 00:00: 23:59 (400 mg [...] 00 :00 times Center packet daily. magnesium 202-0 2022- No 400mg Q.5D Take 1 CHI [...] 400mg Q.5D Take [address] oxide 7-04 15- tablet [facility] (MAG-OX) 00:00: 23:59 (400 mg [...] 00 :00 times Center packet daily. magnesium 2021-0 2022- No 400mg Q.5D Take [address] oxide 7-04 15- tablet [facility] (MAG-OX) 00:00: 23:59 (400 mg [...] No 4mg 4 mg, Slow Univers (ZOFRAN 110 01-10 IV Push, ity of (PF)) 08:00: 06:57 ONCE, 1 [place] injection 4 00 :00 dose, Sun Med ical mg 10/19/20 at Branch 0200, FAROOQ D5W 0.45% Yes 1000mL at 125 Univ ers NaCl 1-10 mL/hr, ity of (1/2NS) IV 07:45: 1,000 [place], [place] infusion 00 IV Medical 1,000 mL Infusion, Branch CONTINUOUS , Starting 10/19/20 at 0145, Until Discontinu ed, FAROOQ iohexol 2020- No 120mL 120 mL, Unive rs (OMNIPAQUE 110 01-10 Intravenou it y of 350 04:15: 03:58 s, ONCE, 1 [place] BULK-100 00 :00 dose, Sat Medica l mL) 10/18/20 at [place] injection 2215, 120 mL Routine NaCl 0.9% 2020- No 1000mL at 999 Uni vers (NS) bolus 1-10 01-10 mL/hr, ity of infusion 03:15: 04:55 [...] 2 (two) Center nebulizer times solution daily. elexacaftor 2020-0 Yes 2{tbl} Take [address] -tezacaftor 6-11 tablets by Bere crespo 00:00: mouth Medical (TRIKAFTA) 00 Every Center 100-50-75 morning mg(d) /150 and one in mg (n) TbSQ evening. elexacaftor 2020-0 Yes 2{tbl} Take [address] -tezacaftor 6-11 tablets by Bere crespo 00:00: mouth Medical ([facility]) 00 Every Center 100-50-75 morning mg(d) /150 and one in mg (n) TbSQ evening. elexacaftor 2020-0 Yes 2{tbl} QD Take [address] -tezacaftor 6-11 tablets by Bere crespo 00:00: mouth Medical ([facility]) 00 every Center 100-50-75 evening mg(d) /150 Take As mg (n) TbSQ directed by elexacaftor 2019-0 Yes 2{tbl} Take [address] -tezacaftor 6-11 tablets by Bere crespo 00:00: mouth Medical ([facility]) 00 Every Center 100-50-75 morning mg(d) /150 and one in mg (n) TbSQ evening. elexacaftor 2020-0 Yes 2{tbl} Take [address] -tezacaftor 6-11 tablets by Bere crespo 00:00: mouth Medical ([facility]) 00 Every Center 100-50-75 morning mg(d) /150 and one in mg (n) TbSQ evening. elexacaftor 2020-0 Yes 2{tbl} Take [address] -tezacaftor 6-11 tablets by Bere crespo 00:00: mouth Medical ([facility]) 00 Every Center 100-50-75 morning mg(d) /150 and one in mg (n) TbSQ evening. elexacaftor 2020-0 Yes 2{tbl} Take [address] -tezacaftor 6-11 tablets by Bere crespo 00:00: mouth Medical ([facility]) 00 Every Center 100-50-75 morning mg(d) /150 and one in mg (n) TbSQ evening. elexacaftor 2020-0 Yes 2{tbl} Take [address] -tezacaftor 6-11 tablets by Bere valdivia -ivacasanford 00:00: mouth Medical (TRIKAFTA) 00 Every Center 100-50-75 morning mg(d) /150 and one in mg (n) TbSQ evening. elexacaftor 2020-0 Yes 2{tbl} Take [address] -tezacaftor 6-11 tablets by Bere vadlivia -ivacasanford 00:00: mouth Medical (TRIKAFTA) 00 Every Center 100-50-75 morning mg(d) /150 and one in mg (n) TbSQ evening. elexacaftor 2020-0 Yes 2{tbl} Take [address] -tezacaftor 6-11 tablets by Bere valdivia -ivacasanford 00:00: mouth Medical (TRIKAFTA) 00 Every Center 100-50-75 morning mg(d) /150 and one in mg (n) TbSQ evening. pediatric 2017- Yes 1{capsu QD Take [address] [facility] [...] St multivit 2-09-07 le} capsule by John s 61-D3-vit K 00:00: 00:00 mouth Medi jf (MVW 00 :00 daily. Center COMPLETE FORMULATION D5000) 5,000-800 unit-mcg Cap pediatric 2017-10- No 1{capsu QD Take [address] multivit 2-29 le} capsule by John cleaning 61-D3-vit K [...] Cente r 7 % nebulizer solution albuterol Yes 2.5mg Take 3 mLs C [...] St ease-amylas 9-23 le} capsule by Bere Attributors e (CREON) 00:00: mouth 3 Medic al [...] St ease-amylas 9-23 le} capsule by Bere Attributors e (CREON) 00:00: mouth 3 Medic al [...] er solution on 2 (two) times daily 21 on . lipase-prot 0 Yes 1{capsu Take [...] (two) times daily 21days on . lipase-prot 2017- Yes 1{capsu Take [address] [...] er solution on 2 (two) times daily 21 on . lipase-prot 2017-0 Yes 1{capsu Take [...] er solution on 2 (two) times daily 21 on . lipase-prot 2018-0 Yes 1{capsu Take [...] solution hours as needed for Wheezing. tobramycin, 2018- Yes 300mg Q.5D Take [address] [facility], (LAVON) 07-02 (300 mg [facility] 300 mg/5 mL 00:00: [...] snacks . No known No Univers medications [facility] Immunizations Ordered Immunization Filled Immunization Date Status Commen ts Source Name Name Pneumococcal 2019-06-[address] [facility] Conjugate (Prevnar) 00:00:00 [facility] 13-Valent Pneumococcal 2019-06-[address] [facility] Conjugate (Prevnar) 00:00:00 [facility] 13-Valent Pneumococcal 2019-06-[address] [facility] Conjugate (Prevnar) 00:00:00 [facility] 13-[facility]ent Pneumococcal 2019-06-[address] [facility] Conjugate (Prevnar) 00:00:00 [facility] 13-[facility]ent Pneumococcal 2019-06-[address] [facility] Conjugate (Prevnar) 00:00:00 [facility] 13-[facility]ent Pneumococcal 2019-06-[address] [facility] Conjugate (Prevnar) 00:00:00 [facility] 13-[facility]ent Pneumococcal 2019-06-[address] [facility] Conjugate (Prevnar) 00:00:00 [facility] 13-[facility]ent Pneumococcal 2019-06-[address] [facility] Conjugate (Prevnar) 00:00:00 [facility] 13-[facility]ent Pneumococcal 2019-06-[address] [facility] Conjugate (Prevnar) 00:00:00 [facility] 13-[facility]ent Pneumococcal 2019-06-[address] [facility] Conjugate (Prevnar) 00:00:00 [facility] 13[facility] Influenza Four-QIV 2018-07-[address] [facility] Non-PF 5+ [facility]R [facility] Four-2018-07-[address] [facility] Non-PF 5+ YR 00:00:00 [facility] Influenza Four-2018-07-[address] [facility] Non-PF 5+ YR 00:00:00 [facility] Influenza Four-2018-07-[address] [facility] Non-PF 5+ YR 00:00:00 [facility] Influenza Four-2018-07-[address] [facility] Non-PF 5+ YR 00:00:00 [facility] Influenza Four-2018-07-[address] [facility] Non-PF 5+ YR 00:00:00 [facility] Influenza Four-2018-07-[address] [facility] Non-PF 5+ YR 00:00:00 [facility] Influenza Four-2018-07-[address] [facility] Non-PF 5+ YR 00:00:00 [facility] Influenza -2018-07-[address] [facility] Non-PF 5+ YR 00:00:00 [facility] Influenza Four-2018-07-[address] [facility] Non-PF 5+ YR 00:00:00 [facility] Vital Signs Vital Name Observation Time Observation Value Comments Source WEIGHT 2023-02-25 06:00:00 68.22 kg WEIGHT 2023-02-24 06:00:00 73.2 kg WEIGHT 2023-02-22 05:36:00 73.029 kg WEIGHT 2023-02-25 06:00:00 68.22 kg WEIGHT 2023-02-24 06:00:00 73.2 kg WEIGHT 2023-02-22 05:36:00 73.029 kg HEIGHT 2022-09-24 03:22:00 185.4 cm WEIGHT [...] 07:00:00 134 mm[Hg] [facility] Diastolic blood 2020-10-19 07:00:00 92 mm[Hg] [facility] Heart rate 2020-10-19 07:00:00 53 /min [facility] Respiratory rate 2020-10-19 07:00:00 15 /min [facility] Oxygen saturation in 2020-10-19 07:00:00 100 /min [facility] Arterial blood by [place] [facility] [employer] [facility] Pulse oximetry Branch Body temperature 2020-10-19 03:08:00 36.72 [facility]ald [facility] Body height 2020-10-19 03:08:00 185.4 cm [facility] [place] [facility] [place] Body weight 2020-10-19 03:08:00 70.308 kg [facility] [place] BMI 2020-10-19 03:08:00 20.45 kg/m2 [facility] Systolic blood 2020-10-19 07:00:00 134 mm[Hg] [facility] Diastolic blood 2020-10-19 07:00:00 92 mm[Hg] [facility] Heart rate 2020-10-19 07:00:00 53 /min [facility] Respiratory rate 2020-10-19 07:00:00 15 /min [facility] Oxygen saturation in 2020-10-19 07:00:00 100 /min [facility] Ar[facility]ial blood by [place] [employer] [facility] Pulse oximetry Branch Body temperature 2020-10-19 03:08:00 36.72 [facility]ald [facility] Body height 2020-10-19 03:08:00 185.4 cm [facility] Body weight 2020-10-19 03:08:00 70.308 kg [facility] BMI 2020-10-19 03:08:00 20.45 kg/m2 [facility] HEIGHT 2020-10-15 08:14:00 185.4 cm [...] WEIGHT 2020-04-17 00:00:00 73.483 kg Systolic blood 2022-09-26 13:00:00 107 mm[Hg] [facility] Diastolic blood 2022-09-26 13:00:00 76 mm[Hg] [facility] Heart rate 2022-09-26 13:00:00 54 /min [facility] Body temperature 2022-09-26 13:00:00 36.56 Emerald [facility] Respiratory rate 2022-09-26 13:00:00 19 /min [facility] Oxygen saturation in 2022-09-26 13:00:00 97 /min [facility] Arterial blood by Medical Ce nter Pulse oximetry Body height 2022-09-24 03:22:00 185.4 cm [facility] Body weight 2022-09-24 03:22:00 68.811 kg [facility] BMI 2022-09-24 03:22:00 20.01 kg/m2 [facility] Systolic blood 2022-09-11 11:47:00 128 mm[Hg] [facility] Diastolic blood 2022-09-11 11:47:00 72 mm[Hg] [facility] Heart rate 2022-09-11 11:47:00 58 /min [facility] Body temperature 2022-09-11 11:47:00 36.56 Emerald [facility] Respiratory rate 2022-09-11 11:47:00 20 /min [facility] Oxygen saturation in 2022-09-11 11:47:00 100 /min [facility] Arterial blood by Medical Ce [facility]ter Pulse oximetry Systolic blood 2022-09-07 23:33:00 114 mm[Hg] [facility] Diastolic blood 2022-09-07 23:33:00 51 mm[Hg] [facility] Heart rate 2022-09-07 23:33:00 58 /min [facility] Body temperature 2022-09-07 23:33:00 37.06 Emerald [facility] Respiratory rate 2022-09-07 23:33:00 18 /min [facility] Oxygen saturation in 2022-09-07 23:33:00 98 /min [facility] Arterial blood by Medical Ce [facility]ter Pulse oximetry Body height 2022-09-07 20:33:00 185.4 cm [facility] Body weight 2022-09-07 20:33:00 69.491 kg [facility] BMI 2022-09-07 20:33:00 20.21 kg/m2 [facility] Heart rate 2021-12-09 08:50:00 63 /min [facility] Respiratory rate 2021-12-09 08:50:00 18 /min [facility] Oxygen saturation in 2021-12-09 08:50:00 96 /min [facility] Arterial blood by Medical Ce [facility]ter Pulse oximetry Systolic blood 2021-12-09 07:57:00 116 mm[Hg] [facility] Diastolic blood 2021-12-09 07:57:00 70 mm[Hg] [facility] Body temperature 2021-12-09 07:57:00 36.61 Emerald [facility] Body weight 2021-12-08 20:00:00 67.767 kg [facility] BMI 2021-12-08 20:00:00 19.71 kg/m2 [facility] Body height 2021-12-05 07:23:00 185.4 cm [facility] Procedures Procedure Date / Time Performing Clinician Source Performed FUNGUS CULTURE + SMEAR 2022-11-29 11:21:00 MarcinRadha [facility] [employer] CULTURE + SMEAR 2022-11-29 11:21:00 [place] Radha Kianna [facility] (SPUTUM ONLY) Center CF RESPIRATORY CULTURE 2022-11-29 11:21:00 [place] Radha Kianna [facility] SPIN/CONCENTRATION 2022-11-29 11:21:00 Santa TeresaRadha [facility] Heart CHARGE Center XR ABDOMEN/KUB 1 VIEW 2022-09-26 07:55:[address] [facility] BASIC METABOLIC PANEL 2022-09-26 05:16:00 Marcia-Sara, Sung In [facility] MAGNESIUM 2022-09-26 05:16:00 Marcia-Tenisha Ruizg In [facility] XR ABDOMEN/KUB 1 VIEW 2022-09-25 14:10:[address] [facility] SARS-COV2/RT-PCR ([facility] & 2022-09-25 14:03:00 Tenisha Brumfieldg In [facility] REF LABS) Center XR CHEST 1 VIEW PORTABLE 2022-09-24 11:24:00 Minnie Oliva [facility] / BEDSIDE Center BASIC METABOLIC PANEL 2022-09-24 04:05:00 Chaparro Farah [facility] HEPATIC FUNCTION PANEL 2022-09-24 04:05:00 Chaparro Farah [facility] PROTHROMBIN TIME/INR 2022-09-24 04:05:00 Chaparro Farah [facility] MAGNESIUM 2022-09-24 04:05:00 Chaparro Farah [facility] PHOSPHORUS 2022-09-24 04:05:00 Chaparro Faarh [facility] CBC W/PLT COUNT & AUTO 2022-09-24 04:05:00 Chaparro Farah [facility] CBC W/PLT COUNT & AUTO 2022-09-24 04:05:00 Chaparro Farah [facility] EKG-SCANNED 2022-09-24 00:00:00 Provider [facility] BASIC METABOLIC PANEL 2022-09-11 [facility] 2022-09-11 [facility] 2022-09-11 05:23[facility]00 [facility] 2022-09-11 05:23[facility]00 [facility] W/[facility]T COUNT & AUTO 2022-09-11 05:23:00 [facility] [place] CBC W/PLT COUNT & AUTO 2022-09-11 05:23:00 [facility]OLIC PANEL 2022-09-10 03:26[facility] HEPAT[facility] FUNCTION PANEL 2022-09-10 03:26:00 Lightle, [facility] MAGNESIUM 2022-09-10 03:26:00 [facility] 2022-09-10 03:26:00 [facility] W/PLT COUNT & AUTO 2022-09-10 03:[facility] VANCOMYCIN LEVEL, TROUGH 2022-09-10 03:26:00 Sandoval Lipscomb [facility] CBC W/PLT COUNT & AUTO 2022-09-10 03:26:00 Lightle, [facility] DIFFERENTIAL [place] US ABDOMEN LIMITED 2022-09-09 19:26:00 Lightle, [facility] XR ABDOMEN/KUB 1 VIEW 2022-09-09 13:27:00 Lightle, [facility] PORTABLE [facility] [place] RESPIRATORY PANEL 2022-09-09 13:07:00 PjMinnie dior [facility] BILIRUBIN, DIRECT 2022-09-09 13:04:00 Lightle, [facility] BASIC METABOLIC PANEL 2022-09-09 09:43:00 Lightle, [facility] HEPATIC FUNCTION PANEL 2022-09-09 09:43:00 Lightle, [facility] MAGNESIUM 2022-09-09 09:43:00 Lightle, [facility] PHOSPHORUS 2022-09-09 09:43:00 Lightle, [facility] CBC W/PLT COUNT & AUTO 2022-09-09 09:43:00 Lightle, [facility] DIFFERENTIAL [place]on [place] CBC W/PLT COUNT & AUTO 2022-09-09 09:43:00 Lightle, [facility] VIEW PORTABLE 2022-09-08 18:51:00 Sandoval Lipscomb [facility] / BEDSIDE [facility] STREP PNEUMONIAE ANTIGEN 2022-09-08 17:19:00 Sandoval Lipscomb [facility] LACTIC ACID, VENOUS 2022-09-08 17:18:[address] [facility] PROCALCITONIN 2022-09-08 17:18:00 Khanh [facility] BLOOD CULTURE 2022-09-08 17:16:00 [facility] COMPRE[facility] METABOLIC 2022-09-08 04:32:[address] [facility] PANEL [facility] MAGNESIUM 2022-09-08 04:32:00 MariKari [facility] CBC (HEMOGRAM ONLY) 2022-09-08 04:32:00 [facility] SARS-COV2/RT-PCR ([facility] & 2022-09-07 06:24:00 [facility] REF LABS) [facility] ABDOMEN/PELVIS WITH 2022-09-07 04:32:00 Jesus Ewing [facility] IV CONTRAST [facility] BASIC METABOLIC PANEL 2022-09-07 02:23:00 [facility] HEPATIC FUNCTION PANEL 2022-09-07 02:23:00 Bud [facility] LIPASE 2022-09-07 02:23:00 Bud [facility] CBC W/PLT COUNT & AUTO 2022-09-07 02:22:00 Bud [facility] DIFFERENTIAL [facility] LACTIC ACID, VENOUS 2022-09-07 02:22:00 [facility] CBC W/PLT COUNT & AUTO 2022-09-07 02:22:00 Israst [facility] DIFFERENTIAL [facility] URINALYSIS W/ REFLEX 2022-09-07 00:38:00 Bud [facility] URINE CULTURE [facility] URINE CULTURE 2022-09-07 00:38:00 Bud [facility] ECG 12-LEAD 2022-09-06 23:05:36 Israst [facility] ECG 12-LEAD 2022-09-06 23:05:36 Unknown, Hl7 Doctor [facility] EKG-SCANNED 2022-09-06 00:00:00 Gloria Kaye [facility] CF RESPIRATORY CULTURE 2022-07-05 13:40:00 Oksana Goddard [facility] CT ABDOMEN/PELVIS WITH 2022-06-27 05:18:00 Chester, [facility] CONTRAST Center CBC W/PLT COUNT & AUTO 2022-06-27 01:32:00 Chester, [facility] BASIC METABOLIC PANEL 2022-06-27 01:32:00 Chester, [facility] HEPATIC FUNCTION PANEL 2022-06-27 01:32:00 Chester, [facility] LIPASE 2022-06-27 01:32:00 Chester, [facility] CBC W/PLT COUNT & AUTO 2022-06-27 01:32:00 Chester, [facility] POCT-GLUCOSE METER 2022-06-22 17:11:00 Sintia [facility] POCT-GLUCOSE METER 2022-06-22 12:56:00 [facility] POCT-GLUCOSE METER 2022-06-22 05:50:00 Sintia [facility] BASIC METABOLIC PANEL 2022-06-22 03:56:00 [facility] CALCIUM, IONIZED 2022-06-22 03:56:00 Sintia [facility] PHOSPHORUS 2022-06-22 03:56:00 Sintia [facility] CBC W/PLT COUNT & AUTO 2022-06-22 03:56:00 Tonny Meneses [facility] MAGNESIUM 2022-06-22 03:56:00 Sintia [facility] CBC W/PLT COUNT & AUTO 2022-06-22 03:56:00 Tonny Meneses [facility] POCT-GLUCOSE METER 2022-06-22 00:16:00 Sintia [facility] POCT-GLUCOSE METER 2022-06-21 17:12:00 Sintia [facility] POCT-GLUCOSE METER 2022-06-21 12:49:00 [facility]SE METER 2022-06-21 08:18:00 [facility] BASIC METABOLIC PANEL 2022-06-21 04:58:00 [facility] CALCIUM, IONIZED 2022-06-21 04:58:00 [facility] 2022-06-21 04:58:00 Sintia [facility] CBC W/PLT COUNT & AUTO 2022-06-21 04:58:00 Tonny Meneses [facility] MAGNESIUM 2022-06-21 04:58:00 Sintia [facility] CBC W/PLT COUNT & AUTO 2022-06-21 04:58:00 Tonny Meneses [facility] POCT-GLUCOSE METER 2022-06-20 21:02:00 Sintia [facility] POCT-GLUCOSE METER 2022-06-20 17:36:00 Sintia [facility] POCT-GLUCOSE METER 2022-06-20 12:43:00 Sintia [facility] POCT-GLUCOSE METER 2022-06-20 09:50:00 Sintia [facility] POCT-GLUCOSE METER 2022-06-20 08:16:00 [facility] BASIC METABOLIC PANEL 2022-06-20 04:51:00 Sintia [facility] CALCIUM, IONIZED 2022-06-20 04:51:00 [facility]US 2022-06-20 04:51:00 Sintia [facility] CBC W/PLT COUNT & AUTO 2022-06-20 04:51:00 Tonny Meneses [facility] MAGNESIUM 2022-06-20 04:51:00 Sintia [facility] CBC W/PLT COUNT & AUTO 2022-06-20 04:51:00 Tonny Meneses [facility] POCT-GLUCOSE METER 2022-06-19 21:09:00 [facility] POCT-GLUCOSE METER 2022-06-19 17:24:00 [facility] POCT-GLUCOSE METER 2022-06-19 12:16:00 [facility] BASIC METABOLIC PANEL 2022-06-19 04:37:00 Emma [facility] MAGNESIUM 2022-06-19 04:37:00 [facility] CBC W/PLT COUNT & AUTO 2022-06-19 04:37:00 [facility] CBC W/PLT COUNT & AUTO 2022-06-19 04:37:[address] [facility] [address] ABDOMEN/PELVIS WITH 2022-06-18 23:25:00 Meredith Harry [facility] IV CONTRAST [facility] POCT-GLUCOSE METER 2022-06-18 23:24:00 Meredith Harry [facility] BLOOD CULTURE 2022-06-18 21:06:00 Meredith Harry [facility] SARS-COV2/RT-PCR ([facility] & 2022-06-18 21:06:[address] [facility] REF LABS) Center CBC W/PLT COUNT & AUTO 2022-06-18 21:06:00 Meredith Harry [facility] DIFFERENTIAL [facility] LACTIC ACID, VENOUS 2022-06-18 21:06:00 Meredith Harry [facility] COMPREHENSIVE METABOLIC 2022-06-18 21:06:00 [facility] PROTHROMBIN TIME/INR 2022-06-18 21:06:00 Candy Harryita [facility] APTT 2022-06-18 21:06:00 [facility] W/[facility]T COUNT & AUTO 2022-06-18 21:06:00 Kamryn, Meredith [facility] DIFFERENTIAL [facility] ECG 12-LEAD 2022-06-18 17:50:02 Unknown, Hl7 Doctor [facility] ECG 12-LEAD 2022-06-18 17:50:02 Unknown, Hl7 [facility] EKG-SCANNED 2022-06-18 00:00:00 Provider, [facility] Center CF RESPIRATORY CULTURE 2022-01-14 11:54:00 Amor Napier [facility] [employer] CULTURE + SMEAR 2022-01-14 11:54:[address] [facility] (SPUTUM ONLY) Center SPIN/CONCENTRATION 2022-01-14 11:54:00 Amor Napier [facility] FUNGUS CULTURE + SMEAR 2022-01-14 11:53:00 Amor Napier [facility] FUNGUS CULTURE + SMEAR 2021-12-30 16:13:00 Radha Burch [facility] [employer] CULTURE + SMEAR 2021-12-30 16:13:[address] [facility] (SPUTUM ONLY) [place] RESPIRATORY CULTURE 2021-12-30 16:13:00 Radha Burch [facility] SPIN/CONCENTRATION 2021-12-30 16:13:00 Radha Burch [facility] XR ABDOMEN/KUB 1 VIEW 2021-12-06 07:44:00 Artie [facility] CBC (HEMOGRAM ONLY) 2021-12-06 04:55:00 Artie [facility] BASIC METABOLIC PANEL 2021-12-06 04:55:00 Artie [facility] POCT-GLUCOSE METER 2021-12-05 17:37:00 [facility] CT ABDOMEN/PELVIS WITH 2021-12-05 09:41:00 [facility] IV CONTRAST Center SARS-COV2/RT-PCR ([facility] & 2021-12-05 08:55:00 [facility] REF LABS) Center CBC W/PLT COUNT & AUTO 2021-12-05 07:45:00 [facility] COMPREHENSIVE METABOLIC 2021-12-05 07:45:00 [facility] PANEL Center LIPASE 2021-12-05 07:45:00 [facility] CBC W/PLT COUNT & AUTO 2021-12-05 07:45:00 [facility] XR ABDOMEN/KUB 1 VIEW 2021-11-30 09:11:00 Patricio Loja [facility] BASIC METABOLIC PANEL 2021-11-30 08:50:00 Pratik Lay[facility] CBC W/PLT COUNT & AUTO 2021-11-26 05:05:00 [facility] BASIC METABOLIC PANEL 2021-11-26 05:05:00 [facility] CBC W/PLT COUNT & AUTO 2021-11-26 05:05:00 [facility] CT ABDOMEN/PELVIS WITH 2021-11-25 03:19:[address] [facility] IV CONTRAST Center SARS-COV2/RT-PCR ([facility] & 2021-11-25 01:09:00 Brad Galindo [facility] REF LABS) Center CBC W/PLT COUNT & AUTO 2021-11-25 01:09:00 Brad Galindo [facility] COMPREHENSIVE METABOLIC 2021-11-25 01:09:[address] [facility] PANEL Center MAGNESIUM 2021-11-25 01:09:00 Brad Galindo [facility] HIGH SENSITIVITY 2021-11-25 01:09:00 Mateo Brad Enriqueta [facility] TROPONIN I Center LIPASE 2021-11-25 01:09:00 Brad Galindo Enriqueta [facility] CBC W/PLT COUNT & AUTO 2021-11-25 01:09:[address] [facility] DIFFERENTIAL Center CT ABDOMEN/PELVIS WITH 2021-11-14 00:11:[address] [facility] IV CONTRAST Jocelyne Center COMPREHENSIVE METABOLIC 2021-11-13 22:53:00 Kent, [facility] PANEL Center LIPASE 2021-11-13 22:53:00 [facility] MAGNESIUM 2021-11-13 22:53:00 [facility] URINE CULTURE 2021-11-13 22:18:00 [facility] URINALYSIS W/ REFLEX 2021-11-13 22:18:00 [facility] URINE CULTURE Center SARS-COV2/RT-PCR ([facility] & 2021-11-13 22:12:00 [facility] REF LABS) Center CBC W/PLT COUNT & AUTO 2021-11-13 22:12:00 [facility] DIFFERENTIAL Center CBC W/PLT COUNT & AUTO 2021-11-13 22:12:00 [facility] DIFFERENTIAL Center XR ABDOMEN/KUB 1 VIEW 2021-11-13 21:30:00 [facility] PORTABLE Center XR CHEST 1 VIEW PORTABLE 2021-11-13 21:30:00 [facility] / BEDSIDE Center ECG 12-LEAD 2021-11-13 19:46:04 Unknown, Hl7 Doctor [facility] ECG 12-LEAD 2021-11-13 19:46:04 Unknown, Hl7 Doctor [facility] EKG-SCANNED 2021-11-13 00:00:00 Provider, Gloria [facility] Center PHOSPHORUS 2021-08-06 04:54:00 Nalam, Honey Lyssa [facility] BASIC METABOLIC PANEL 2021-08-06 04:54:00 Nalam, Honey Lyssa [facility] (7) Center MAGNESIUM 2021-08-06 04:54:00 [facility], [facility]EN / KUB 1 VIEW 2021-08-05 11:57:00 Charlene Pearson I [facility] PHOSPHORUS 2021-08-05 05:07:00 Nal, [facility] BASIC METABOLIC PANEL 2021-08-05 05:07:00 [facility], [facility] MAGNESIUM 2021-08-05 05:07:00 Nal, [facility] PHOSPHORUS 2021-08-04 05:33:00 [facility], [facility] BASIC METABOLIC PANEL 2021-08-04 05:33:00 Nalam, [facility] ([facility] MAGNESIUM 2021-08-04 05:33:00 [facility], [facility] BASIC METABOLIC PANEL 2021-08-03 04:23:00 [facility] [place] MAGNESIUM 2021-08-03 04:23:00 [facility] PHOSPHORUS 2021-08-03 04:23:00 [facility] SARS-COV2/RT-PCR ([facility] & 2021-08-01 21:50:00 [facility] CT ABDOMEN/PELVIS WITH 2021-08-01 20:44:[address] [facility] IV CONTRAST Center LIPASE 2021-08-01 19:18:00 Puma Kent [facility] COMPREHENSIVE METABOLIC 2021-08-01 19:17:[address] [facility] PANEL Center CBC W/PLT COUNT & AUTO 2021-08-01 19:17:[address] [facility] DIFFERENTIAL Center CBC W/PLT COUNT & AUTO 2021-08-01 19:17:[address] [facility] DIFFERENTIAL Center URINALYSIS 2020-10-19 04:37:00 Shannon Momin [facility] CT ABDOMEN PELVIS W 2020-10-19 04:02:25 Shannon Momin [facility] LIPASE 2020-10-19 03:17:00 Shannon Momin [facility] TROPONIN I 2020-10-19 03:17:00 Shannon Momin [facility] HEPATIC FUNCTION PANEL 2020-10-19 03:17:00 Shannon Momin [id number] (ALB,T.PRO,BILI Medical Branch T,BU/BC,ALT,AST,ALK PHOS) BASIC METABOLIC PANEL 2020-10-19 03:17:00 Shannon Momin [facility] (NA, K, CL, CO2, Medical Branch GLUCOSE, BUN, CREATININE, CA) CBC WITH DIFF 2020-10-19 03:17:00 Shannon Momin [facility] COVID-19 (ID NOW RAPID 2020-10-19 03:17:00 Shannon Momin [facility] TESTING) [facility] Plan of Care Planned Activity Planned Date Details Comments Source Future Scheduled 2028-09-01 Screening for malignant [facility] 00:00:00 neoplasm of colon Medical Ce nter (procedure) [code = 717598205] Future Scheduled 2028-09-01 Screening for malignant [facility] 00:00:00 neoplasm of colon Medical Ce nter (procedure) [code = 908410682] Future Scheduled 2028-09-01 Screening for malignant [facility] 00:00:00 neoplasm of colon Medical Ce nter (procedure) [code = 934916227] Future Scheduled 2028-09-01 Screening for malignant [facility] 00:00:00 neoplasm of colon Medical Ce nter (procedure) [code = 043715172] Future Scheduled 2028-09-01 Screening for malignant [facility] 00:00:00 neoplasm of colon Medical Ce nter (procedure) [code = 669747968] Future Scheduled 2028-09-01 Screening for malignant [facility] 00:00:00 neoplasm of colon Medical Ce nter (procedure) [code = 301570957] Future Scheduled 2028-09-01 Screening for malignant [facility] 00:00:00 neoplasm of colon Medical Ce nter (procedure) [code = 308434710] Future Scheduled 2028-09-01 Screening for malignant [facility] 00:00:00 neoplasm of colon Medical Ce nter (procedure) [code = 398915850] Future Scheduled 2028-09-01 Screening for malignant [facility] 00:00:00 neoplasm of colon Medical Ce nter (procedure) [code = 309750020] Future Scheduled 2028-09-01 Screening for malignant [facility] 00:00:00 neoplasm of colon Medical Ce nter (procedure) [code = 420849866] Future Scheduled 2028-09-01 Screening for malignant [facility] 00:00:00 neoplasm of colon Medical Ce nter (procedure) [code = 721074342] Future Scheduled 2028-09-01 Screening for malignant [facility] 00:00:00 neoplasm of colon Medical Ce nter (procedure) [code = 438727251] Future Scheduled 2028-09-01 Screening for malignant [facility] 00:00:00 neoplasm of colon Medical Ce nter (procedure) [code = 376935395] Future Scheduled 2028-09-01 Screening for malignant [facility] 00:00:00 neoplasm of colon Medical Ce nter (procedure) [code = 198239040] Future Scheduled 2028-09-01 Screening for malignant [facility] 00:00:00 neoplasm of colon Medical Ce nter (procedure) [code = 935856879] Future Scheduled 2028-09-01 Screening for malignant [facility] 00:00:00 neoplasm of colon Medical Ce nter (procedure) [code = 636558983] Future Scheduled 2028-09-01 Screening for malignant [facility] 00:00:00 neoplasm of colon Medical Ce nter (procedure) [code = 132005410] Future Scheduled 2028-09-01 Screening for malignant [facility] 00:00:00 neoplasm of colon Medical Ce nter (procedure) [code = 924444629] Future Scheduled 2028-09-01 Screening for malignant [facility] 00:00:00 neoplasm of colon Medical Ce nter (procedure) [code = 515573119] Future Scheduled 2028-09-01 Screening for malignant [facility] 00:00:00 neoplasm of colon Medical Ce nter (procedure) [code = 118208448] Future Scheduled 2026-12-30 Lipid panel (procedure) [facility] 00:00:00 [code = 40891842] Medical Ce nter Future Scheduled 2026-12-30 Lipid panel (procedure) [facility] 00:00:00 [code = 82117331] Medical Ce nter Future Scheduled 2026-12-30 Lipid panel (procedure) [facility] 00:00:00 [code = 67950853] Medical Ce nter Future Scheduled 2026-12-30 Lipid panel (procedure) [facility] 00:00:00 [code = 71978734] Medical Ce nter Future Scheduled 2026-12-30 Lipid panel (procedure) [facility] 00:00:00 [code = 60803230] Medical Ce nter Future Scheduled 2026-12-30 Lipid panel (procedure) [facility] 00:00:00 [code = 18087247] Medical Ce nter Future Scheduled 2026-12-30 Lipid panel (procedure) [facility] 00:00:00 [code = 90860047] Medical Ce nter Future Scheduled 2026-12-30 Lipid panel (procedure) [facility] 00:00:00 [code = 89350081] Medical Ce nter Future Scheduled 2026-12-30 Lipid panel (procedure) [facility] 00:00:00 [code = 38994311] Medical Ce nter Future Scheduled 2026-12-30 Lipid panel (procedure) [facility] 00:00:00 [code = 44529343] Medical Ce nter Future Scheduled 2023-09-[address] [...] SCREENING (12+)] Future Scheduled 2022-06-10 INFLUENZA VACCINE (#1) [facility] [code = INFLUENZA Medical Ce nter VACCINE (#1)] Future Scheduled 2021-10-[address] [facility] 00:00:00 (12+) [code = Medical Center DEPRESSION SCREENING (12+)] Future Scheduled 2021-10-[address] [facility] 00:00:00 (12+) [code = Medical Center DEPRESSION SCREENING (12+)] Future Scheduled 2020-06-[address] [facility] 00:00:00 0-64 YRS (2 - PPSV23 or Medi jf Center PCV20) [code = PNEUMOCOCCAL VACCINE 0-64 YRS (2 - PPSV23 or PCV20)] Future Scheduled 2020-06-[address] [facility] 00:00:00 0-64 YRS (2 - PPSV23 or Medi jf Center PCV20) [code = PNEUMOCOCCAL VACCINE 0-64 YRS (2 - PPSV23 or PCV20)] Future Scheduled 2020-06-[address] [facility] 00:00:00 0-64 YRS (2 - PPSV23 or Medi jf Center PCV20) [code = PNEUMOCOCCAL VACCINE 0-64 YRS (2 - PPSV23 or PCV20)] Future Scheduled 2020-06-[address] [facility] 00:00:00 0-64 YRS (2 - PPSV23 or Medi jf Center PCV20) [code = PNEUMOCOCCAL VACCINE 0-64 YRS (2 - PPSV23 or PCV20)] Future Scheduled 2020-06-[address] [facility] 00:00:00 0-64 YRS (2 - PPSV23 or Medi jf Center PCV20) [code = PNEUMOCOCCAL VACCINE 0-64 YRS (2 - PPSV23 or PCV20)] Future Scheduled 2020-06-[address] [facility] 00:00:00 0-64 YRS (2 - PPSV23 or Medi jf Center PCV20) [code = PNEUMOCOCCAL VACCINE 0-64 YRS (2 - PPSV23 or PCV20)] Future Scheduled 2019-07-[address] [facility] 00:00:00 0-64 YRS (2 - PPSV23 if Medi jf Center available, else PCV20) [code = PNEUMOCOCCAL VACCINE 0-64 YRS (2 - PPSV23 if available, else PCV20)] Future Scheduled 2019-07-[address] [facility] 00:00:00 0-64 YRS (2 - PPSV23 if Medi jf Center available, else PCV20) [code = PNEUMOCOCCAL VACCINE 0-64 YRS (2 - PPSV23 if available, else PCV20)] Future Scheduled 2019-07-[address] [facility] 00:00:00 0-64 YRS (2 - PPSV23 if Medi jf Center available, else PCV20) [code = PNEUMOCOCCAL VACCINE 0-64 YRS (2 - PPSV23 if available, else PCV20)] Future Scheduled 2019-07-[address] [facility] 00:00:00 0-64 YRS (2 - PPSV23 if Medi jf Center available, else PCV20) [code = PNEUMOCOCCAL VACCINE [...] if no IPPE)] Future Scheduled 1994 DTAP/TDAP/TD [facility]INES [facility]:00 (1 - Tdap) [code = Medical C enter DTAP/TDAP/TD VACCINES (1 - Tdap)] Future Scheduled 1994 DTAP/TDAP/TD [facility]ACCINES [facility] 00:00:00 (1 - Tdap) [code = Medical C enter DTAP/TDAP/TD VACCINES (1 - Tdap)] Future Scheduled 1994 DTAP/TDAP/TD VACCINES [facility] 00:00:00 (1 - Tdap) [code = Medical C enter DTAP/TDAP/TD VACCINES (1 - Tdap)] Future Scheduled 1994 DTAP/TDAP/TD VACCINES [facility] 00:00:00 (1 - Tdap) [code = Medical C enter DTAP/TDAP/TD VACCINES (1 - Tdap)] Future Scheduled 1994 DTAP/TDAP/TD VACCINES [facility] 00:00:00 (1 - Tdap) [code = Medical C enter DTAP/TDAP/TD VACCINES (1 - Tdap)] Future Scheduled 1994 DTAP/TDAP/TD VACCINES [facility] 00:00:00 (1 - Tdap) [code = Medical C enter DTAP/TDAP/TD VACCINES (1 - Tdap)] Future Scheduled 1994 DTAP/TDAP/TD VACCINES [facility] 00:00:00 (1 - Tdap) [code = Medical C enter DTAP/TDAP/TD VACCINES (1 - Tdap)] Future Scheduled 1994 DTAP/TDAP/TD VACCINES [facility] 00:00:00 (1 - Tdap) [code = Medical C enter DTAP/TDAP/TD VACCINES (1 - Tdap)] Future Scheduled 1994 DTAP/TDAP/TD VACCINES [facility] 00:00:00 (1 - Tdap) [code = Medical C enter DTAP/TDAP/TD VACCINES (1 - Tdap)] Future Scheduled 1994 DTAP/TDAP/TD VACCINES [facility] 00:00:00 (1 - Tdap) [code = Medical C enter DTAP/TDAP/TD VACCINES (1 - Tdap)] Future Scheduled 1993 HEPATITIS C [facility]CRE[facility]ING [facility]:00:00 [code = HEPATITIS C Medical Center SCREENING] Future Scheduled 1993 HEPATITIS C [facility]:00:00 [code = HEPATITIS C Medical Center SCREENING] Future Scheduled 1993 HEPATITIS C [facility] 00:00:00 [code = HEPATITIS C Medical Center SCREENING] Future Scheduled 1993 HEPATITIS C [facility] 00:00:00 [code = HEPATITIS C Medical Center SCREENING] Future Scheduled 1993 HEPATITIS C [facility] 00:00:00 [code = HEPATITIS C Medical Center SCREENING] Future Scheduled 1993 HEPATITIS C [facility] 00:00:00 [code = HEPATITIS C Medical Center SCREENING] Future Scheduled 1993 HEPATITIS C [facility] 00:00:00 [code = HEPATITIS C Medical Center SCREENING] Future Scheduled 1993 HEPATITIS C [facility] 00:00:00 [code = HEPATITIS C Medical Center SCREENING] Future Scheduled 1993 HEPATITIS C [facility] 00:00:00 [code = HEPATITIS C Medical Center SCREENING] Future Scheduled 1993 HEPATITIS C [facility] 00:00:00 [code = HEPATITIS C Medical Center SCREENING] Future Scheduled 1976-04-19 COVID-19 VACCINE (#1) [facility] 00:00:00 [code = COVID-[address]ACCINE (#1)] Future Scheduled 1976-04-19 COVID-19 VACCINE (#1) [facility] 00:00:00 [code = COVID-[address] [facility]ACCINE (#1)] Future Scheduled 1976-04-19 COVID-19 VACCINE (#1) [facility] 00:00:00 [code = COVID-[address] VACCINE (#1)] Future Scheduled 1976-04-19 COVID-19 VACCINE (#1) [facility] 00:00:00 [code = COVID-[address] VACCINE (#1)] Future Scheduled 1976-04-19 COVID-19 VACCINE (#1) [facility] 00:00:00 [code = COVID-[address] VACCINE (#1)] Future Scheduled 1976-04-19 COVID-19 VACCINE (#1) [facility] 00:00:00 [code = COVID-[address] VACCINE (#1)] Future Scheduled 1976-04-19 COVID-19 VACCINE (#1) [facility] 00:00:00 [code = COVID-[address] VACCINE (#1)] Future Scheduled 1976-04-19 COVID-19 VACCINE (#1) [facility] 00:00:00 [code = COVID-[address] VACCINE (#1)] Future Scheduled 1976-04-19 COVID-19 VACCINE (#1) [facility] 00:00:00 [code = COVID-[address] VACCINE (#1)] Future Scheduled 1976-04-19 COVID-19 VACCINE (#1) [facility] 00:00:00 [code = COVID-[address] VACCINE (#1)] Future Scheduled 1975 CT Colonography (combo) [facility] 00:00:00 [code = CT Colonography Medi jf Center (combo)] Future Scheduled 1975 Screening for malignant [facility] 00:00:00 neoplasm of colon Medical Ce nter (procedure) [code = 243670100] Future Scheduled 1975 Screening for malignant [facility] 00:00:00 neoplasm of colon Medical Ce nter (procedure) [code = 624215430] Future Scheduled 1975 Sigmoidoscopy [code = [facility] S[facility]oscopy] Medical Cente r Future Scheduled 1975 CT Colonography (combo) [facility] 00:00:00 [code = CT Colonography Medi jf Center (combo)] Future Scheduled 1975 Screening for malignant [facility] 00:00:00 neoplasm of colon Medical Ce nter (procedure) [code = 462331507] Future Scheduled 1975 Screening for malignant [facility] 00:00:00 neoplasm of colon Medical Ce nter (procedure) [code = 379558515] Future Scheduled 1975 Sigmoidoscopy [facility]code = [facility] S[facility]oidoscopy] Medical Cente r Future Scheduled 1975 CT Colonography (combo) [facility] 00:00:00 [code = CT Colonography Medi jf Center (combo)] Future Scheduled 1975 Screening for malignant [facility] 00:00:00 neoplasm of colon Medical Ce nter (procedure) [code = 583527789] Future Scheduled 1975 Screening for malignant [facility] 00:00:00 neoplasm of colon Medical Ce nter (procedure) [code = 908887108] Future Scheduled 1975 Sigmoidoscopy [facility]code = [facility] S[facility]oidoscopy] Medical Cente r Future Scheduled 1975 CT Colonography (combo) [facility] 00:00:00 [code = CT Colonography Medi jf Center (combo)] Future Scheduled 1975 Screening for malignant [facility] 00:00:00 neoplasm of colon Medical Ce nter (procedure) [code = 072830830] Future Scheduled 1975 Screening for malignant [facility] 00:00:00 neoplasm of colon Medical Ce nter (procedure) [code = 176455416] Future Scheduled 1975 Sigmoidoscopy [facility]code = [facility] Sigmoidoscopy] Medical Cente r Future Scheduled 1975 CT Colonography (combo) [facility] 00:00:00 [code = CT Colonography Medi jf Center (combo)] Future Scheduled 1975 Screening for malignant [facility] 00:00:00 neoplasm of colon Medical Ce nter (procedure) [code = 657407670] Future Scheduled 1975 Screening for malignant [facility] 00:00:00 neoplasm of colon Medical Ce nter (procedure) [code = 022722178] Future Scheduled 1975 Sigmoidoscopy [facility]code = [facility] Sigmoidoscopy] Medical Cente r Future Scheduled 1975 CT Colonography (combo) [facility] 00:00:00 [code = CT Colonography Medi jf Center (combo)] Future Scheduled 1975 Screening for malignant [facility] 00:00:00 neoplasm of colon Medical Ce nter (procedure) [code = 869595612] Future Scheduled 1975 Screening for malignant [facility] 00:00:00 neoplasm of colon Medical Ce nter (procedure) [code = 392088078] Future Scheduled 1975 Sigmoidoscopy [facility]code = [facility] Sigmoidoscopy] Medical Cente r Future Scheduled 1975 CT Colonography (combo) [facility] 00:00:00 [code = CT Colonography Medi jf Center (combo)] Future Scheduled 1975 Screening for malignant [facility] 00:00:00 neoplasm of colon Medical Ce nter (procedure) [code = 188503012] Future Scheduled 1975 Screening for malignant [facility] 00:00:00 neoplasm of colon Medical Ce nter (procedure) [code = 523997357] Future Scheduled 1975 Sigmoidoscopy [code = [facility] Sigmoidoscopy] Medical Constantine r Future Scheduled 1975 CT Colonography (combo) [facility] 00:00:00 [code = CT Colonography Medi jf Center (combo)] Future Scheduled 1975 Screening for malignant [facility] 00:00:00 neoplasm of colon Medical Ce nter (procedure) [code = 826539360] Future Scheduled 1975 Screening for malignant [facility] 00:00:00 neoplasm of colon Medical Ce nter (procedure) [code = 096640664] Future Scheduled 1975 Sigmoidoscopy [facility]code = [facility] Sigmoidoscopy] Medical Paige r Future Scheduled 1975 CT Colonography (combo) [facility] 00:00:00 [code = CT Colonography [facility] (combo)] Future Scheduled 1975 Screening for malignant [facility] 00:00:00 neoplasm of colon Medical Ce nter (procedure) [code = 677044187] Future Scheduled 1975 Screening for malignant [facility] 00:00:00 neoplasm of colon Medical Ce nter (procedure) [code = 339876796] Future Scheduled 1975 Sigmoidoscopy [facility]code = [facility] Sigmoidoscopy] Medical Paige r Future Scheduled 1975 CT Colonography (combo) [facility] 00:00:00 [code = CT Colonography Medi [facility] (combo)] Future Scheduled 1975 Screening for malignant [facility] 00:00:00 neoplasm of colon Medical Ce nter (procedure) [code = 850445646] Future Scheduled 1975 Screening for malignant [facility] 00:00:00 neoplasm of colon Medical Ce nter (procedure) [code = 389640465] Future Scheduled 1975 Sigmoidoscopy [facility]code [facility] Sigmoidoscopy] Medical Paige r Encounters Start End Encounter Admission Attending Care Care Encounter Source Date/Time Date/Time Type Type Clinicians Facility Department ID 2023-02-20 2023-02-26 Inpatient ER JENNIFER, [facility] Surgery [id number] [facility] 06:01:00 16:25:00 POOL 2022-11-29 2022-11-29 Outpatient EL [facility] [id number] [facility] 16:42:58 16:42:58 2022-11-29 2022-11-29 Orders Radha Ribera [facility] [id number] 14:30:00 14:45:00 Only [facility] 2022-09-24 2022-09-26 [facility] [id number] [facility] 03:04:00 15:42:00 Encounter Stefano Brumfield [facility] 2022-09-24 2022-09-26 Outpatient ER MARTHA [facility] Med [id number] SLE 03:04:00 15:42:00 STEFANO 2022-09-06 2022-09-11 [facility] ER Jesus Ewing [facility] [id number] [facility] 21:10:00 16:18:00 [facility]22-09-06 2022-09-11 Inpatient ER [facility] Emergency [id number] [facility] 21:10:00 16:18:00 [facility]22-[facility]-06 2022-09-06 Orders [facility] [id number] 00:00:00 00:00:00 Only [facility] 2022-09-06 2022-09-06 Travel [facility] [id number] [facility] 00:00:00 00:00:00 [facility] 2022-07-06 2022-07-06 [facility] [id number] SLE 09:35:01 09:35:01 2022-07-05 2022-07-05 Orders TERRANCE Goddard [facility] [id number] 14:15:00 14:30:00 Only [facility] 2022-06-27 2022-06-27 Emergency ER Debi Briggs [facility] [id number] 01:04:00 06:00:00 [facility] 2022-06-27 2022-06-27 Emergency ER DEBI BRIGGS [facility] Emergency [id number] SLE 01:04:00 06:00:00 2022-06-27 2022-06-27 Travel [facility] [id number] [facility] 00:00:00 00:00:00 [facility] 2022-06-18 2022-06-22 Hospital ER Meredith Harry [facility] [id number] 17:52:00 19:32:00 Encounter Chaparro Farah [facility] 2022-06-18 2022-06-22 Inpatient ER [facility] Emergency [id number] SLE 17:52:00 19:32:00 [facility] 2022-06-18 2022-06-18 Orders [facility] [id number] 00:00:00 00:00:00 Only [facility] 2022-06-18 2022-06-18 Travel [facility] [id number] [facility] 00:00:00 00:00:00 [facility] 2022-01-18 2022-01-18 Outpatient EL [facility] SLE [id number] [facility] 17:05:19 17:05:19 2022-01-14 2022-01-14 Orders TERRANCE Napier [facility] [id number] 12:00:00 12:15:00 Only Amor Ha [facility] 2022-01-01 2022-01-01 Outpatient EL [facility] [id number] [facility] 15:16:13 15:16:13 2021-12-30 2021-12-30 Orders Radha Ribera [facility] [id number] 16:15:00 16:30:00 Only Kianna [facility] 2021-12-05 2021-12-09 Hospital ER Jacob Calle [facility] [id number] [facility] 07:23:00 14:47:00 Encounter Honey Painter Lyssa [facility] 2021-12-05 2021-12-09 Inpatient ER LEYDIKRISTEN [facility] Emergency [id number] SLE 07:23:00 14:47:00 [facility] 2021-11-25 2021-12-01 [facility] Brad Galindo [facility] [id number] 00:40:00 12:00:00 Encounter Jose Arana [facility] 2021-11-25 2021-12-01 Inpatient ER [facility] Emergency [id number] [facility] 00:40:00 12:00:00 [facility] 2021-11-25 2021-11-25 Travel [facility] [id number] [facility] 00:00:00 00:00:00 [facility] 2021-11-13 2021-11-14 Emergency ER [facility] [id number] 19:43:00 04:21:00 [facility] 2021-11-13 2021-11-14 Emergency ER [facility] Emergency [id number] SLE 19:43:00 04:21:00 [facility] 2021-11-13 2021-11-13 Orders [facility] [id number] 00:00:00 00:00:00 Only [facility] 2021-11-13 2021-11-13 Travel [facility] [id number] [facility] 00:00:00 00:00:00 [facility] 2021-08-13 2021-08-13 Outpatient TERRANCE [facility] [id number] SLE 00:00:00 00:00:00 [facility] 2021-08-01 2021-08-06 Hospital ER [facility] [id number] 18:35:00 16:55:00 Encounter Balwinder Rebolledo [facility] 2021-08-01 2021-08-06 Inpatient ER [facility], [facility] Emergency [id number] [facility] 18:35:00 16:55:00 [facility] 2021-08-01 2021-08-01 Travel [facility] [id number] [facility] 00:00:00 00:00:00 [facility] 2021-04-12 2021-04-12 Emergency ER [facility] Emergency [id number] SLE 20:54:00 20:54:00 2021-03-26 2021-03-26 Outpatient EL [facility] SLE [id number] [facility] 00:00:00 00:00:00 2021-02-19 2021-02-19 Emergency ER [facility] Emergency [id number] [facility] 15:12:00 15:12:00 2021-01-06 2021-01-06 Outpatient MERRICK [facility] [id number] [facility] 00:00:00 00:00:[address] [facility] 2021-01-06 2021-01-06 Outpatient EL MERRICK SLE [facility] [id number] [facility] 00:00:00 00:00:[address] [facility] 2021-01-06 2021-01-06 Outpatient EL SLE [facility] [id number] [facility] 00:00:00 00:00:00 2020-10-25 2020-10-25 Emergency ER [facility] Emergency [id number] [facility] 00:15:00 00:15:00 2020-10-19 2020-10-19 Emergency ER [facility] Emergency [id number] [facility] 18:18:00 18:18:00 2020-10-18 2020-10-19 Emergency ALICIA Momin [id number] 21:04:00 01:30:00 Shannon Contreras [id number] [place] [id number] [place] [id number] 2020-10-18 2020-10-19 [facility] [id number] [facility] 21:04:00 01:30:00 Shannon Contreras [id number] svitlanatracey [facility] [id number] [facility] [id number] [place] [address] Branch 2020-10-18 2020-10-18 Emergency [facility] [id number] [facility] 21:04:00 21:04:00 SHANNON victor [facility] 2020-10-14 2020-10-14 Emergency ER [facility] Emergency [id number] SLE 23:24:00 23:24:00 2020-06-07 2020-06-07 Emergency ER [facility] Emergency [id number] SLE 18:37:00 18:37:00 2020-05-06 2020-05-06 Emergency ER [facility] Emergency [id number] SLE 20:45:00 20:45:00 2020-04-17 2020-04-17 Emergency ER [facility] Emergency [id number] SLE 06:45:00 06:45:00 2020-04-17 2020-04-17 Emergency ER SLE SLE [id number] [facility] 00:00:00 00:00:00 Results Test Description Test Time Test Comments Results Result Comments Source BASIC METABOLIC PANEL 2023-02-26 06:35:51 Test Item Value Reference Range Interpretation Comme nts SODIUM (BEAKER) (test 135 meq/L 136-145 L code = 381) POTASSIUM (BEAKER) 4.0 meq/L 3.5-5.1 (test code = 379) CHLORIDE (BEAKER) (test 103 meq/L 98-107 code = 382) CO2 (BEAKER) (test code 24 meq/L 22-29 = 355) BLOOD UREA NITROGEN 4 mg/dL 7-21 L (BEAKER) (test code = 354) CREATININE (BEAKER) 1.18 mg/dL 0.57-1.25 (test code = 358) GLUCOSE RANDOM (BEAKER) 81 mg/dL 70-105 (test code = 652) CALCIUM (BEAKER) (test 8.8 mg/dL 8.4-10.2 code = 697) EGFR (BEAKER) (test 78 mL/min/1.73 sq In terpretation of eGFR values [...] s not applicable for dialysis manny silva Seo Coordinator ID - MMCBC W/PLT COUNT & AUTO [id number] 06:21:41 Test Item Value Reference Range Interpretation Comments WHITE BLOOD CELL COUNT 4.5 K/ L 3.5-10.5 (BEAKER) (test code = 775) RED BLOOD CELL COUNT 3.93 M/ L 4.63-6.08 L (BEAKER) (test code = 761) HEMOGLOBIN (BEAKER) 11.9 GM/DL 13.7-17.5 L (test code = 410) HEMATOCRIT (BEAKER) 36.7 % 40.1-51.0 L (test code = 411) MEAN CORPUSCULAR 93 fL 79-92 H Discordant results VOLUME (BEAKER) (test compar ed to previous code = 753) results; clinic al correlation req uired MEAN CORPUSCULAR 30.3 pg 25.7-32.2 HEMOGLOBIN (BEAKER) (test code = 751) MEAN CORPUSCULAR 32.4 GM/DL 32.3-36.5 HEMOGLOBIN CONC (BEAKER) (test code = 752) RED CELL DISTRIBUTION 13.1 % 11.6-14.4 WIDTH (BEAKER) (test code = 412) PLATELET COUNT 191 K/CU MM 150-450 (BEAKER) (test code = 756) MEAN PLATELET VOLUME 10.8 fL 9.4-12.4 (BEAKER) (test code = 754) NUCLEATED RED BLOOD 0 /100 WBC 0-0 CELLS (BEAKER) (test code = 413) NEUTROPHILS RELATIVE 42 % PERCENT (BEAKER) (test code = 429) LYMPHOCYTES RELATIVE 39 % PERCENT (BEAKER) (test code = 430) MONOCYTES RELATIVE 13 % PERCENT (BEAKER) (test code = 431) EOSINOPHILS RELATIVE 5 % PERCENT (BEAKER) (test code = 432) BASOPHILS RELATIVE 1 % PERCENT (BEAKER) (test code = 437) NEUTROPHILS ABSOLUTE 1.92 K/ L 1.78-5.38 COUNT (BEAKER) (test code = 670) LYMPHOCYTES ABSOLUTE 1.77 K/ L 1.32-3.57 COUNT (BEAKER) (test code = 414) MONOCYTES ABSOLUTE 0.58 K/ L 0.30-0.82 COUNT (BEAKER) (test code = 415) EOSINOPHILS ABSOLUTE 0.21 K/ L 0.04-0.54 COUNT (BEAKER) (test code = 416) BASOPHILS ABSOLUTE 0.04 K/ L 0.01-0.08 COUNT (BEAKER) (test code = 417) IMMATURE 0.20 % 0.00-1.00 GRANULOCYTES-RELATIVE PERCENT (BEAKER) (test code = 2801) BASIC METABOLIC [id number] 05:53:04 Test Item Value Reference Range Interpretation Comments SODIUM (BEAKER) 136 meq/L 136-145 (test code = 381) POTASSIUM 4.0 meq/L 3.5-5.1 (BEAKER) (test code = 379) CHLORIDE (BEAKER) 102 meq/L 98-107 (test code = 382) CO2 (BEAKER) 26 meq/L 22-29 (test code = 355) BLOOD UREA 4 mg/dL 7-21 L NITROGEN (BEAKER) (test code = 354) CREATININE 1.13 mg/dL 0.57-1.25 (BEAKER) (test code = 358) GLUCOSE RANDOM 81 [...] not appl icable for dialysis patien ts Seo Coordinator ID - ADMINCBC W/PLT COUNT & AUTO [id number] 05:41:32 Test Item Value Reference Range Interpretation Comments WHITE BLOOD CELL COUNT (BEAKER) 4.1 K/ L 3.5-10.5 (test code = 775) RED BLOOD CELL COUNT (BEAKER) 3.80 M/ L 4.63-6.08 L (test code = 761) HEMOGLOBIN (BEAKER) (test code = 11.6 GM/DL 13.7-17.5 L 410) HEMATOCRIT (BEAKER) (test code = 33.7 % 40.1-51.0 L 411) MEAN CORPUSCULAR VOLUME (BEAKER) 89 fL 79-92 (test code = 753) MEAN [...] (test code = 413) NEUTROPHILS RELATIVE PERCENT 40 % (BEAKER) (test code = 429) LYMPHOCYTES RELATIVE PERCENT 43 % (BEAKER) (test code = 430) MONOCYTES RELATIVE PERCENT 11 % (BEAKER) (test code = 431) EOSINOPHILS RELATIVE PERCENT 5 % (BEAKER) (test code = 432) BASOPHILS RELATIVE PERCENT 1 % (BEAKER) (test code = 437) NEUTROPHILS ABSOLUTE COUNT 1.63 K/ L 1.78-5.38 L (BEAKER) (test code [...] 0.00-1.00 PERCENT (BEAKER) (test code = 2801) (CELLAVISION MANUAL DIFF)2023-02-24 07:24:49 Test Item Value Reference Range Interpretation Comments NEUTROPHILS - REL 48 % (CELLAVISION)(BEAKER) (test code = 2816) LYMPHOCYTES - REL 34 % (CELLAVISION)(BEAKER) (test code = 2817) MONOCYTES - REL 12 % (CELLAVISION)(BEAKER) (test code = 2818) EOSINOPHILS - REL 1 % (CELLAVISION)(BEAKER) (test code = 2819) BASOPHILS - REL 2 % (CELLAVISION)(BEAKER) (test code = 2820) BANDS - REL (CELLAVISION)(BEAKER) 1 % 0-10 (test code = 2826) ATYPICAL LYMPHOCYTES - REL 2 % 0-0 H (CELLAVISION)(BEAKER) (test code = 2829) NEUTROPHILS - ABS 1.87 K/ul 1.78-5.38 (CELLAVISION)(BEAKER) (test code = 2830) LYMPHOCYTES - ABS 1.33 K/ul 1.32-3.57 (CELLAVISION)(BEAKER) (test code = 2831) MONOCYTES - ABS 0.47 K/uL 0.30-0.82 (CELLAVISION)(BEAKER) (test code = 2832) EOSINOPHILS - ABS 0.04 K/uL 0.04-0.54 (CELLAVISION)(BEAKER) (test code = 2834) BASOPHILS - ABS 0.08 K/uL 0.01-0.08 (CELLAVISION)(BEAKER) (test code = 2835) BANDS - ABS (CELLAVISION)(BEAKER) 0.04 K/uL 0.00-0.80 (test code = 2840) ATYPICAL LYMPHOCYTES - ABS 0.08 K/uL 0.00-0.00 H (CELLAVISION)(BEAKER) (test code = 2858) TOTAL COUNTED (BEAKER) (test code 100 = 1351) MANUAL NRBC PER 100 CELLS (BEAKER) 1 /100 WBC 0-0 H (test code = 1353) PLT MORPHOLOGY (BEAKER) (test code Normal = 486) SMUDGE CELLS (BEAKER) (test code = Present 1371) ANISOCYTOSIS (BEAKER) (test code = 1+ few 961) MACROCYTES (BEAKER) (test code = 1+ few 964) PLATELET CONCENTRATION Adequate (CELLAVISION)(BEAKER) (test code = 3438) Seo Coordinator ID - Felipe Dato-onUser comments: Slide comments:CBC W/PLT COUNT & AUTO [id number] 07:24:48 Test Item Value Reference Range Interpretation Comments WHITE BLOOD CELL COUNT (BEAKER) 3.9 K/ L 3.5-10.5 (test code = 775) RED BLOOD CELL COUNT (BEAKER) 3.94 M/ L 4.63-6.08 L (test code = 761) HEMOGLOBIN (BEAKER) (test code = 11.9 GM/DL 13.7-17.5 L 410) HEMATOCRIT (BEAKER) (test code = 35.2 % 40.1-51.0 L 411) MEAN CORPUSCULAR VOLUME (BEAKER) 89 fL 79-92 (test code = 753) MEAN CORPUSCULAR HEMOGLOBIN 30.2 pg 25.7-32.2 (BEAKER) (test code = 751) MEAN CORPUSCULAR HEMOGLOBIN CONC 33.8 GM/DL 32.3-36.5 (BEAKER) (test code = 752) RED CELL DISTRIBUTION WIDTH 12.8 % 11.6-14.4 (BEAKER) (test code = 412) PLATELET COUNT (BEAKER) (test 225 K/CU MM 150-450 code = 756) MEAN PLATELET VOLUME (BEAKER) 11.2 fL 9.4-12.4 (test code = 754) NUCLEATED RED BLOOD CELLS 0 /100 WBC 0-0 (BEAKER) (test code = 413) BASIC METABOLIC [id number] 06:22:11 Test Item Value Reference Range Interpretation Comments SODIUM (BEAKER) 138 meq/L 136-145 (test code = 381) POTASSIUM 4.1 meq/L 3.5-5.1 Specimen slight ly (BEAKER) (test hemolyzed code = 379) CHLORIDE (BEAKER) 102 meq/L 98-107 (test code = 382) CO2 (BEAKER) 27 meq/L 22-29 (test code = 355) BLOOD UREA 6 mg/dL 7-21 L NITROGEN (BEAKER) (test code = 354) CREATININE 1.06 mg/dL 0.57-1.25 Specimen slight ly (BEAKER) (test hemolyzed code = 358) GLUCOSE RANDOM 92 mg/dL 70-105 (BEAKER) (test code = 652) CALCIUM (BEAKER) 9.3 mg/dL 8.4-10.2 (test code = 697) EGFR (BEAKER) 88 [...] not appl icable for dialysis patien ts Seo Coordinator ID - ADMINBASIC METABOLIC [id number] 05:40:16 Test Item Value Reference Range Interpretation Comments SODIUM (BEAKER) 137 meq/L 136-145 (test code = 381) POTASSIUM 3.9 meq/L 3.5-5.1 (BEAKER) (test code = 379) CHLORIDE (BEAKER) 101 meq/L 98-107 (test code = 382) CO2 (BEAKER) 28 meq/L 22-29 (test code = 355) BLOOD UREA 9 mg/dL 7-21 NITROGEN (BEAKER) (test code = 354) CREATININE 1.01 mg/dL 0.57-1.25 (BEAKER) (test code = 358) GLUCOSE RANDOM 86 mg/dL 70-105 (BEAKER) (test code = 652) CALCIUM (BEAKER) 9.0 mg/dL 8.4-10.2 (test code = 697) EGFR (BEAKER) 93 Interpretatio n of eGFR (test code = [...] not appl icable for dialysis patien ts Seo Coordinator ID - CHAMP WCBC (HEMOGRAM ONLY)2023-02-23 05:17:12 Test Item Value Reference Range Interpretation Comments WHITE BLOOD CELL COUNT (BEAKER) 4.6 K/ L 3.5-10.5 (test code = 775) RED BLOOD CELL COUNT (BEAKER) 4.05 M/ L 4.63-6.08 L (test code = 761) HEMOGLOBIN (BEAKER) (test code = 12.2 GM/DL 13.7-17.5 L 410) HEMATOCRIT (BEAKER) (test code = 35.4 % 40.1-51.0 L 411) MEAN CORPUSCULAR VOLUME (BEAKER) 87 fL 79-92 (test code = 753) MEAN [...] WBC 0-0 (BEAKER) (test code = 413) BASIC METABOLIC [id number] 05:17:54 Test Item Value Reference Range Interpretation Comments SODIUM (BEAKER) 137 meq/L 136-145 (test code = 381) POTASSIUM 4.1 meq/L 3.5-5.1 (BEAKER) (test code = 379) CHLORIDE (BEAKER) 104 meq/L 98-107 (test code = 382) CO2 (BEAKER) 25 meq/L 22-29 (test code = 355) BLOOD UREA 13 mg/dL 7-21 NITROGEN (BEAKER) (test code = 354) CREATININE 1.01 mg/dL 0.57-1.25 (BEAKER) (test code = 358) GLUCOSE RANDOM 89 mg/dL 70-105 (BEAKER) (test code = 652) CALCIUM (BEAKER) 8.9 mg/dL 8.4-10.2 (test code = 697) EGFR (BEAKER) 93 Interpretatio n of eGFR (test code = [...] not appl icable for dialysis patien ts Seo Coordinator ID - CHAMP [facility] (HEMOGRAM ONLY)2023-02-22 04:51:21 Test Item Value Reference Range Interpretation Comments WHITE BLOOD CELL COUNT (BEAKER) 4.2 K/ L 3.5-10.5 (test code = 775) RED BLOOD CELL COUNT (BEAKER) 3.90 M/ L 4.63-6.08 L (test code = 761) HEMOGLOBIN (BEAKER) (test code = 11.6 GM/DL 13.7-17.5 L 410) HEMATOCRIT (BEAKER) (test code = 34.3 % 40.1-51.0 L 411) MEAN CORPUSCULAR VOLUME (BEAKER) 88 fL 79-92 (test code = 753) MEAN CORPUSCULAR HEMOGLOBIN 29.7 pg 25.7-32.2 (BEAKER) (test code = 751) MEAN CORPUSCULAR HEMOGLOBIN CONC 33.8 GM/DL 32.3-36.5 (BEAKER) (test code = 752) RED CELL DISTRIBUTION WIDTH 12.9 % 11.6-14.4 (BEAKER) (test code = 412) PLATELET COUNT (BEAKER) (test 198 K/CU MM 150-450 code = 756) MEAN PLATELET VOLUME (BEAKER) 10.7 fL 9.4-12.4 (test code = 754) NUCLEATED RED BLOOD CELLS 0 /100 WBC 0-0 (BEAKER) (test code = 413) HEMOGLOBIN [id number] 12:49:22 Test Item Value Reference Range Interpretation Comments HEMOGLOBIN A1C 5.7 % See_Comment H [Automated m essage] ELECTROPHORESIS (BEAKER) The system which (test code = 3811) generated this result transmitted ref erence range: <=5.6%. The reference range was not used to int erpret this result as normal/abnormal . "The A1c is measured using a [facility]-certified method. HbA1c value equal to or greater than 6.5% as thediagnosis cutoff for diabetes. An HbA1c value of 5.7- 6.4% indicates increased risk for diabetes (prediabetes)."Seo Coordinator ID - ADM [id number] 04:08:29 Test Item Value Reference Range Interpretation Comments MAGNESIUM (BEAKER) (test code = 1.6 mg/dL 1.6-2.6 627) Seo Coordinator ID - CHAMP WGAMMA GLUTAMYL TRANSFERASE (GGT)2023-02-21 04:08:29 Test Item Value Reference Range Interpretation Comments GAMMA GLUTAMYL TRANSFERASE (BEAKER) 34 U/L 9-64 (test code = 364) Seo Coordinator ID - CHAMP WBASIC METABOLIC [id number] 04:08:28 Test Item Value Reference Range Interpretation Comments SODIUM (BEAKER) 137 meq/L 136-145 (test code = 381) POTASSIUM 4.4 meq/L 3.5-5.1 (BEAKER) (test code = 379) CHLORIDE (BEAKER) 109 meq/L 98-107 H (test code = 382) CO2 (BEAKER) 22 meq/L 22-29 (test code = 355) BLOOD UREA 17 mg/dL 7-21 NITROGEN (BEAKER) (test code = 354) CREATININE 1.14 mg/dL 0.57-1.25 (BEAKER) (test code = 358) GLUCOSE RANDOM 95 mg/dL 70-105 (BEAKER) (test code = 652) CALCIUM (BEAKER) 8.8 mg/dL 8.4-10.2 (test code = 697) EGFR (BEAKER) 81 Interpretatio n of eGFR (test code = [...] not appl icable for dialysis patien ts Seo Coordinator ID - CHAMP MEDEIROS, ABDOMEN/KUB, 1 VIEW [id number] 09:37:00Reason for exam:->severe constipation [facility] 1975 Sex: MFINAL REPORT Supine abdomen: HISTORY: Severe constipation There are several moderately distended gas-filled small bowel loops in the central abdomen. Bowel gas and fecal material are present within the colon but the appearance is suspicious for small bowel obstruction. There is no fecal impaction. Consider follow-up CT with oral and intravenous contrast if not already performed asthere is faint contrast material noted within the bladder. No mass or organomegaly is noted. The bony structures appear intact. Signed: Shyam Fontaine Verified Date/Time: 02/20/2023 09:37:59 COMPREHENSIVE METABOLIC [id number] 09:23:04 Test Item Value Reference Range Interpretation Comments TOTAL PROTEIN 6.6 gm/dL 6.0-8.3 (BEAKER) (test code = 770) ALBUMIN (BEAKER) 3.8 g/dL 3.5-5.0 (test code = 1145) ALKALINE 87 U/L 40-150 PHOSPHATASE (BEAKER) (test code = 346) BILIRUBIN TOTAL 0.8 mg/dL 0.2-1.2 (BEAKER) (test code = 377) SODIUM (BEAKER) 137 meq/L 136-145 (test code = 381) POTASSIUM (BEAKER) 3.9 meq/L 3.5-5.1 (test code = 379) CHLORIDE (BEAKER) 106 meq/L 98-107 (test code = 382) CO2 (BEAKER) (test 25 meq/L 22-29 code = 355) BLOOD UREA 14 mg/dL 7-21 NITROGEN (BEAKER) (test code = 354) CREATININE 1.02 mg/dL 0.57-1.25 (BEAKER) (test code = 358) GLUCOSE RANDOM 115 mg/dL 70-105 H (BEAKER) (test code = 652) CALCIUM (BEAKER) 9.0 mg/dL 8.4-10.2 (test code = 697) AST (SGOT) 22 U/L 5-34 (BEAKER) (test code = 353) ALT (SGPT) 26 U/L 6-55 (BEAKER) (test code = 347) EGFR (BEAKER) 92 Interpretatio n of eGFR (test code = 1092) mL/min/1.[address] age Description sq m Result G1 Marlena l or high >=90 G2 Mildly decreased 60-89 G3a Mildl y to moderately 45-5 9 G3b Moderately to s everely 30-44 G4 Sever ly decreased 15-29 G5 Kidney failure <15Repo rted eGFR is based on the CKD-EPI 2021 equation t hat does not use a race coefficientEsti mated GFR is not as accur ate as Creatinine Collette samy in predicting glom erular filtration rate . Estimated GFR is not appl icable for dialysis patien ts Seo Coordinator ID - [id number] 09:23:04 Test Item Value Reference Range Interpretation Comments MAGNESIUM (BEAKER) (test code = 1.4 mg/dL 1.6-2.6 L 627) Seo Coordinator ID - ADMINPROTHROMBIN [id number] 09:00:22 Test Item Value Reference Range Interpretation Comments PROTIME (BEAKER) (test code = 16.0 seconds 11.9-14.2 H 759) INR (BEAKER) (test code = 370) 1.36 <=5.90 RECOMMENDED COUMADIN/WARFARIN INR THERAPY RANGESSTANDARD DOSE: 2.0 - 3.0 Includes: PROPHYLAXIS for venous thrombosis, systemic embolization; TREATMENT for venous thrombosis and/or pulmonary embolus.HIGH RISK: Target INR is 2.5-3.5 for patients with mechanical heart valves.CBC W/PLT COUNT & AUTO [id number] 08:59:05 Test Item Value Reference Range Interpretation Comments WHITE BLOOD CELL COUNT (BEAKER) 9.2 K/ L 3.5-10.5 (test code = 775) RED BLOOD CELL COUNT (BEAKER) 4.49 M/ L 4.63-6.08 L (test code = 761) HEMOGLOBIN (BEAKER) (test code = 13.2 GM/DL 13.7-17.5 L 410) HEMATOCRIT (BEAKER) (test code = 39.7 % 40.1-51.0 L 411) MEAN CORPUSCULAR VOLUME (BEAKER) 88 fL 79-92 (test code = 753) MEAN CORPUSCULAR HEMOGLOBIN 29.4 pg 25.7-32.2 (BEAKER) (test code = 751) MEAN CORPUSCULAR HEMOGLOBIN CONC 33.2 GM/DL 32.3-36.5 (BEAKER) (test code = 752) RED CELL DISTRIBUTION WIDTH 12.5 % 11.6-14.4 (BEAKER) (test code = 412) PLATELET COUNT (BEAKER) (test 202 K/CU MM 150-450 code = 756) MEAN PLATELET VOLUME (BEAKER) 10.6 fL 9.4-12.4 (test code = 754) NUCLEATED RED BLOOD CELLS 0 /100 WBC 0-0 (BEAKER) (test code = 413) NEUTROPHILS RELATIVE PERCENT 83 % (BEAKER) (test code = 429) LYMPHOCYTES RELATIVE PERCENT 8 % (BEAKER) (test code = 430) MONOCYTES RELATIVE PERCENT 8 % (BEAKER) (test code = 431) EOSINOPHILS RELATIVE PERCENT 1 % (BEAKER) (test code = 432) BASOPHILS RELATIVE PERCENT 0 % (BEAKER) (test code = 437) NEUTROPHILS ABSOLUTE COUNT 7.61 K/ L 1.78-5.38 H (BEAKER) (test code = 670) LYMPHOCYTES ABSOLUTE COUNT 0.77 K/ L 1.32-3.57 L (BEAKER) (test code = 414) MONOCYTES ABSOLUTE COUNT (BEAKER) 0.72 K/ L 0.30-0.82 (test code = 415) EOSINOPHILS ABSOLUTE COUNT 0.06 K/ L 0.04-0.54 (BEAKER) (test code = 416) BASOPHILS ABSOLUTE COUNT (BEAKER) 0.01 K/ L 0.01-0.08 (test code = 417) IMMATURE GRANULOCYTES-RELATIVE 0.30 % 0.00-1.00 PERCENT (BEAKER) (test code = 2801) Fungus culture + [id number] 00:42:51 Test Item Value Reference Range Interpretation Comments Result (test code = No fungus isolated in [facility]) 28 days Fungus Smear (test No fungi seen code = 1406) [facility] [id number] 00:42:51 Test Item Value Reference Range Interpretation Comments Result (test code = No fungus isolated in [facility]) 28 days Fungus Smear (test No fungi seen code = 1406) [facility] [id number] 00:42:51 Test Item Value Reference Range Interpretation Comments Result (test code = No fungus isolated in [facility]) 28 days Fungus Smear (test No fungi seen code = 1406) [facility] + [id number] 00:42:51 Test Item Value Reference Range Interpretation Comments Result (test code = No fungus isolated in [facility]) 28 days Fungus Smear (test No fungi seen code = 1406) [facility] [id number] 00:42:51 Test Item Value Reference Range Interpretation Comments CULTURE (BEAKER) (test No fungus isolated in code = 1095) 28 days FUNGUS SMEAR (BEAKER) No fungi seen (test code = 1406) [facility] RESPIRATORY [id number] 12:41:41 Test Item Value Reference Interpretation Comments [...] S [Auto mated message] 1) The system Bottle generated this result transmit joann reference range : Susceptible 0-1 6 , Resistant <0 or >16 . The reference range was not u sed to interpret th is result as normal/abnormal . Aztreonam (test code See_Comment S [Autom ated message] = 32) The system Bottle generated this result transmit joann reference range : Susceptible 0-8 , Resistant <0 or >8 . The reference r taurus was not used to interpret this result as normal/abnormal . Cefepime (test code = See_Comment R [Auto mated message] 51) The system Bottle generated this result transmit joann reference range : Susceptible 0-8 , Resistant <0 or >8 . The reference r taurus was not used to interpret this result as normal/abnormal . Ceftazidime (test See_Comment S [Automate d message] code = 27) The system Bottle generated this result transmit joann reference range : Susceptible 0-8 , Resistant <0 or >8 . The reference r taurus was not used to interpret this result as normal/abnormal . Ciprofloxacin (test See_Comment S [Automa joann message] code = 7) The system Bottle generated this result transmit joann reference range : Susceptible 0-0 .5 , Resistant <0 or >.5 . The reference range was not u sed to interpret th is result as normal/abnormal . Gentamicin (test code See_Comment S [Auto mated message] = 18) The system Bottle generated this result transmit joann reference range : Susceptible 0-4 , Resistant <0 or >4 . The reference r taurus was not used to interpret this result as normal/abnormal . Levofloxacin (test See_Comment S [Automat ed message] code = 22) The system Bottle generated this result transmit joann reference range : Susceptible 0-1 , Resistant <0 or >1 . The reference r taurus was not used to interpret this result as normal/abnormal . Meropenem (test code See_Comment S [Autom ated message] = 34) The system Bottle generated this result transmit joann reference range : Susceptible 0-2 , Resistant <0 or >2 . The reference r taurus was not used to interpret this result as normal/abnormal . Piperacillin (test See_Comment S [Automat ed message] code = 24) The system Bottle generated this result transmit joann reference range [...] [Auto mated message] = 25) The system Bottle generated this result transmit joann reference range [...] 3+ Normal respiratory maria del carmen presentSPIN/CONCENTRATION [id number] 13:00:47 Test Item Value Reference Range Interpretation Comments Concentration charged (test code = Done 3540) [facility] [id number] 13:00:47 Test Item Value Reference Range Interpretation Comments Concentration charged (test code = Done 0664) [facility] [id number] 13:00:47 Test Item Value Reference Range Interpretation Comments Concentration charged (test code = Done 2657) [facility] [id number] 13:00:47 Test Item Value Reference Range Interpretation Comments Concentration charged (test code = Done 2657) [facility] [id number] 13:00:47 Test Item Value Reference Range Interpretation Comments CONCENTRATION CHARGED (BEAKER) (test Done code = 2657) RAD, ABDOMEN/KUB, 1 VIEW [id number] 09:41:00Reason for exam:->const[facility] 1975 Sex: MFINAL REPORT Abdomen x-ray Clinical Diagnosis: ConstipationComparison: 09/25/2022Views: Two supine views of abdomen obtained Findings/impression:There is persistent gaseous distention of loops bowel throughout the abdomen, similar to the prior examination. Findings can be seen in the setting of ileus versus distal bowel obstruction. No intraperitoneal free air is appreciated on this supine view examination. Signed: Donato Varela MDReport Verified Date/Time: 09/26/2022 09:41:17 BASIC METABOLIC [id number] 08:14:57 Test Item Value Reference Range Interpretation [...] not appl icable for dialysis patien ts Seo Coordinator ID - CHAMP [id number] 08:14:56 Test Item Value Reference Range Interpretation Comments MAGNESIUM (BEAKER) 1.7 mg/dL 1.6-2.6 Specimen slightly (test code = 627) hemolyzed Seo Coordinator ID - CHAMP WRAD, ABDOMEN/KUB, 1 VIEW [id number] 14:51:00Reason for exam:->constipation [facility] 1975 [...] SARS-Co V-2 (test code = target nucleic 51671-4) acids are not detected in thi s [...] revoked sooner. Fact Sheet for Healthcare Providers: https://www.[employer]/Documents/Xp ert%20Xpress%20SAR S%20CoV-2/Fact%20S heets/302-3802%20S ARS-COV-2%20HEALTH CARE%20PROVIDERS%2 0FACT%20SHEET.pdf Fact Sheet for Healthcare Patients: https://www.[employer]/Documents/Xp ert%20Xpress%20SAR S%20CoV-2/Fact%20S heets/302-3801%20S ARS-COV-2%20PATIEN T%20FACT%20SHEET.p df Lab Interpretation Normal (test code = 28438-0) [facility]2022-09-25 14:50:31 Test Item Value Reference Interpretation Comments Range SARS-COV2/RT-PCR Negative Negative The SARS-Co V-2 (test code = target nucleic 29394-9) acids are not detected in thi s [...] revoked sooner. Fact Sheet for Healthcare Providers: https://www.[employer]/Documents/Xp ert%20Xpress%20SAR S%20CoV-2/Fact%20S heets/302-3802%20S ARS-COV-2%20HEALTH CARE%20PROVIDERS%2 0FACT%20SHEET.pdf Fact Sheet for Healthcare Patients: https://www.[employer]/Documents/Xp ert%20Xpress%20SAR S%20CoV-2/Fact%20S heets/302-3801%20S ARS-COV-2%20PATIEN T%20FACT%20SHEET.p df Lab Interpretation Normal (test code = 41149-8) [facility] (Asymptomatic ONLY)2022-09-25 14:50:31 Test Item Value Reference Interpretation Comments Range SARS-COV2/RT-PCR Negative Negative The SARS-Co V-2 (test code = target nucleic 93472-1) acids are not detected in thi s [...] revoked sooner. Fact Sheet for Healthcare Providers: https://www.[employer]/Documents/Xp ert%20Xpress%20SAR S%20CoV-2/Fact%20S heets/3023802%20S ARS-COV-2%20HEALTH CARE%20PROVIDERS%2 0FACT%20SHEET.pdf Fact Sheet for Healthcare Patients: https://www.[employer]/Documents/Xp ert%20Xpress%20SAR S%20CoV-2/Fact%20S heets/302-3801%20S ARS-COV-2%20PATIEN T%20FACT%20SHEET.p df Lab Interpretation Normal (test code = 80402-6) [facility]As[facility]omatic ONLY[facility]2022-09-25 14:50:31 Test Item Value Reference Interpretation Comments Range SARS-COV2/RT-PCR Negative Negative The SARS-Co V-2 (test code = target nucleic 06316-6) acids are not detected in thi s [...] revoked sooner. Fact Sheet for Healthcare Providers: https://www.[employer]/Documents/Xp ert%20Xpress%20SAR S%20CoV-2/Fact%20S heets/302-3802%20S ARS-COV-2%20HEALTH CARE%20PROVIDERS%2 0FACT%20SHEET.pdf Fact Sheet for Healthcare Patients: https://www.[employer]/Documents/Xp ert%20Xpress%20SAR S%20CoV-2/Fact%20S heets/302-3801%20S ARS-COV-2%20PATIEN T%20FACT%20SHEET.p df Lab Interpretation Normal (test code = 05494-2) [facility]As[facility]omatic ONLY[facility]2022-09-25 14:50:31 Test Item Value Reference Interpretation Comments Range SARS-COV2/RT-PCR Negative Negative The SARS-Co V-2 (test code = target nucleic 07022-3) acids are not detected in thi s [...] revoked sooner. Fact Sheet for Healthcare Providers: https://www.[employer]/Documents/Xp ert%20Xpress%20SAR S%20CoV-2/Fact%20S heets/302-3802%20S ARS-COV-2%20HEALTH CARE%20PROVIDERS%2 0FACT%20SHEET.pdf Fact Sheet for Healthcare Patients: https://www.[employer]/Documents/Xp ert%20Xpress%20SAR S%20CoV-2/Fact%20S heets/302-3801%20S ARS-COV-2%20PATIEN T%20FACT%20SHEET.p df Lab Interpretation Normal (test code = 29453-5) [facility]As[facility]omatic ONLY[facility]2022-09-25 14:50:31 Test Item Value Reference Interpretation Comments Range SARS-COV2/RT-PCR Negative Negative The SARS-Co V-2 (test code = target nucleic 97781-1) acids are not detected in thi s [...] revoked sooner. Fact Sheet for Healthcare Providers: https://www.Spoonity/Documents/Xp ert%20Xpress%20SAR S%20CoV-2/Fact%20S heets/302-4366%20S ARS-COV-2%20HEALTH CARE%20PROVIDERS%2 0FACT%20SHEET.pdf Fact Sheet for Healthcare Patients: https://www.Spoonity/Documents/Xp ert%20Xpress%20SAR S%20CoV-2/Fact%20S heets/302-8831%20S ARS-COV-2%20PATIEN T%20FACT%20SHEET.p df Lab Interpretation Normal (test code = 04055-3) [facility]2022-09-25 14:50:31 Test Item Value Reference Interpretation Comments Range SARS-COV2/RT-PCR Negative Negative The SARS-Co V-2 (test code = target nucleic 61828-1) acids are not detected in thi s [...] revoked sooner. Fact Sheet for Healthcare Providers: https://www.Spoonity/Documents/Xp ert%20Xpress%20SAR S%20CoV-2/Fact%20S heets/302-3802%20S ARS-COV-2%20HEALTH CARE%20PROVIDERS%2 0FACT%20SHEET.pdf Fact Sheet for Healthcare Patients: https://www.Spoonity/Documents/Xp ert%20Xpress%20SAR S%20CoV-2/Fact%20S heets/302-3801%20S ARS-COV-2%20PATIEN T%20FACT%20SHEET.p df Lab Interpretation Normal (test code = 48774-8) [facility] ([facility])2022-09-25 14:50:31 Test Item Value Reference Range Interpretation Comments SARS-COV2/RT-PCR Negative Negative The SARS-Co V-2 target (test code = nucleic acids a re not 0727949) detected in thi s specimen. Negative result s do not preclude SARS-C oV-2 infection and s hould not be used as the júnior e basis for patient managem ent decisions. Nega tive results must be combine d with clinical observ ations, patient history , and epidemiological information. A false negativ e result may occur if a spec imen is improperly panchito ected, transported or handled. This SARS CoV-2 [...] revoked sooner. Fact Sheet for Healthcare Providers: https://www.Doorman.[employer] m/Documents/Xpert%20Xpress%20SARS%20CoV-2/Fact%20Sheets/3023802%85SVNN-GRF-3%20 HEALTHCARE%20PROVIDERS%20FACT%20SHEET.pdf Fact Sheet for Healthcare Patients: https://www.TYMR/Documents/Xpert%20Xp ress%20SARS%20CoV-2/Fact%20Sheets/3023801%64[facility]-BHZ-3%20PATIENT%20FACT%20SHEET .pdfRAD, CHEST, 1 VIEW, NON [id number] 11:52:00Reason for exam:->CF patientShould this be performed at the bedside?->Yes [facility] 1975 Sex: MFINAL REPORT INDICATION: CF patient COMPARISON: None TECHNIQUE: Single frontal view of the chest. FINDINGS: Lungs and pleura: Clear lungs. No effusion.Heart and mediastinum: Normal heart size. Unremarkable mediastinal contours.Osseous structures: No acute abnormality.Other: None. IMPRESSION: No acute intrathoracic abnormality. Signed: Esperanza Duque Verified Date/Time: 09/24/2022 11:52:00 Reading Location: [address] Reading Room HEPATIC FUNCTION [id number] 05:00:50 Test Item Value Reference Range Interpretation [...] (test code = 39 U/L 6-55 347) Seo Coordinator ID - MARCOBASIC METABOLIC [id number] 05:00:49 Test Item Value Reference Range Interpretation [...] is not as accur ate as Creatinine Coleltte samy in predicting glom erular filtration rate . Estimated GFR is not appl icable for dialysis patien ts Seo Coordinator ID - [id number] 05:00:49 Test Item Value Reference Range Interpretation Comments MAGNESIUM (BEAKER) (test code = 1.6 mg/dL 1.6-2.6 627) Seo Coordinator ID - [id number] 05:00:49 Test Item Value Reference Range Interpretation Comments PHOSPHORUS (BEAKER) (test code = 3.4 mg/dL 2.3-4.7 604) Seo Coordinator ID - MARCOPROTHROMBIN TIME/[id number] 04:40:50 Test Item Value Reference Range Interpretation Comments PROTIME (BEAKER) 15.6 seconds 11.9-14.2 H (test code = 759) INR (BEAKER) (test 1.26 See_Comment [Automat ed message] code = 370) The system Bottle generated this result transmitted ref erence range: <=5.90. The reference range was not used to int erpret this result as normal/abnormal . RECOMMENDED COUMADIN/WARFARIN INR THERAPY RANGESSTANDARD DOSE: 2.0 - 3.0 Includes: PROPHYLAXIS for venous thrombosis, systemic embolization; TREATMENT for venous thrombosis and/or pulmonary embolus.HIGH RISK: Target INR is 2.5-3.5 for patients with mechanical heart valves.CBC W/PLT COUNT & AUTO [id number] 04:31:28 Test Item Value Reference Range Interpretation [...] PERCENT (BEAKER) (test code = 2801) BLOOD [id number] 19:01:42 Test Item Value Reference Range Interpretation Comments CULTURE (BEAKER) (test No growth in 5 days code = 1095) BLOOD [id number] 19:01:42 Test Item Value Reference Range Interpretation Comments CULTURE (BEAKER) (test No growth in 5 days code = 1095) HEPATIC FUNCTION [id number] 06:14:49 Test Item Value Reference Range Interpretation [...] (test code = 17 U/L 6-55 347) Seo Coordinator ID - [id number] 06:14:48 Test Item Value Reference Range Interpretation Comments MAGNESIUM (BEAKER) (test code = 1.6 mg/dL 1.6-2.6 627) Seo Coordinator ID - [id number] 06:14:48 Test Item Value Reference Range Interpretation Comments PHOSPHORUS (BEAKER) (test code = 3.2 mg/dL 2.3-4.7 604) Seo Coordinator ID - BSBASIC METABOLIC [id number] 06:14:47 Test Item Value Reference Range Interpretation [...] not appl icable for dialysis patien ts Seo Coordinator ID - BSCBC W/PLT COUNT & AUTO [id number] 05:41:16 Test Item Value Reference Range Interpretation [...] (BEAKER) (test code = 2801) VANCOMYCIN LEVEL, [id number] 08:51:33 Test Item Value Reference Range Interpretation Comments VANCOMYCIN TROUGH (BEAKER) (test 11.3 ug/mL 10.0-20.0 code = 522) Seo Coordinator ID - [id number] 04:31:45 Test Item Value Reference Range Interpretation Comments MAGNESIUM (BEAKER) (test code = 1.6 mg/dL 1.6-2.6 627) Seo Coordinator ID - NEIL [id number] 04:31:45 Test Item Value Reference Range Interpretation Comments PHOSPHORUS (BEAKER) (test code = 3.7 mg/dL 2.3-4.7 604) Seo Coordinator ID - NEIL MHEPATIC FUNCTION [id number] 04:31:45 Test Item Value Reference Range Interpretation [...] (test code = 16 U/L 6-55 347) Seo Coordinator HODA - NEIL MBASIC METABOLIC [id number] 04:31:44 Test Item Value Reference Range Interpretation [...] not appl icable for dialysis patien ts Seo Coordinator ID - NEIL MCBC W/PLT COUNT & AUTO [id number] 03:52:06 Test Item Value Reference Range Interpretation [...] (BEAKER) (test code = 2801) U/S, ABDOMINAL, [id number] 21:12:00Abdomen limited area? Add comment if clarification is needed.->GallbladderReason for exam:->fever, abdominal pain, increased T. bili with c/f cholangitis. US to r/o CBD dilatation 2/2 choledocholithiasisShould this be performed at the bedside?->Yes [facility] 1975 Sex: [...] Date/Time: 09/09/2022 21:12:42 RAD, ABDOMEN/KUB, 1 VIEW [id number] 15:34:00Reason for exam:->f/u abdominal pain/colonic distension [facility] 1975 Sex: MFINAL [...] or large bowel obstruction. Signed: Lupillo Becerra MDReport Verified Date/Time: 09/09/2022 15:34:07 Reading Location: [address] Reading Room Respiratory Panel [id number] 15:22:28 Test Item Value Reference Interpretation Comments Range Human Metapneumovirus Not detected Not detected, (test code = 35607-5) Equivocal Rhinovirus (test code Not detected Not detected, = 86800-0) Equivocal INFLUENZA A (NO SUBTYPE) (test code = 41522-2) Influenza A subtype H1 (test code = 19669-6) Influenza A Subtype H3 (test code = 31911-1) Influenza A Subtype Detected Not detected, A Droplet H1-2008 (test code = [place]. 00853-7) Oseltamivir is the drug of choice. Conside r stopping antibiotics. Influenza B (test Not detected Not detected, code = 43447-8) Equivocal Respiratory Syncytial Not detected Not detected, Virus (test code = Equivocal 91655-9) Parainfluenza Virus 1 Not detected Not detected, (test code = 04415-3) Equivocal Parainfluenza Virus 2 Not detected Not detected, (test code = 26592-2) Equivocal Parainfluenza virus 3 Not detected Not detected, (test code = 82076-3) Equivocal Parainfluenza Virus 4 Not detected Not detected, (test code = 97803-7) Equivocal Adenovirus (test code Not detected Not detected, = 93163-9) Equivocal Coronavirus 229E Not detected Not detected, (test code = 43063-8) Equivocal Coronavirus HKU1 Not detected Not detected, (test code = 92452-8) Equivocal Coronavirus NL63 Not detected Not detected, (test code = 51295-2) Equivocal Coronavirus OC43 Not detected Not detected, (test code = 80900-1) Equivocal Bordetella Pertussis Not detected Not detected, (test code = 68428-5) Equivocal Chlamydophila Not detected Not detected, Pneumoniae (test code Equivocal = 82160-7) Mycoplasma Pneumoniae Not detected Not detected, (test code = 21490-9) Equivocal Severe Acute Not detected Not detected, Qutvmslwmwg-TiG-6 Equivocal (test code = 21773-9) Bordtella Not detected Not detected, Parapertussis (test Equivocal code = 95812-1) SHANA (test code = SHANA) Other viruses and bacteria not targeted by this PCR panel cannot be excluded; therefore clinical correlation and follow up of serology, culture results, and other molecular studies is required. The results are not intended to be used as the sole means for clinical diagnosis or patient management decisions. This sample was tested at the [facility] using the [employer] Respiratory Panel. It is FDA cleared and has been verified and approved by the [facility] for clinical use on nasopharyngeal swab specimens. The performance of the FilmArray RP has not been established in individuals who received influenza vaccine. Recent administration of a nasal influenza vaccine may cause false positive results for Influenza A and/orInfluenza B. Lab Interpretation Abnormal (test code = 54533-3) [facility] [id number] 15:22:28 Test Item Value Reference Interpretation Comments Range Human Metapneumovirus Not detected Not detected, (test code = 02904-4) Equivocal Rhinovirus (test code Not detected Not detected, = 73530-3) Equivocal INFLUENZA A (NO SUBTYPE) (test code = 62982-7) Influenza A subtype H1 (test code = 91696-8) Influenza A Subtype H3 (test code = 69049-1) Influenza A Subtype Detected Not detected, A Droplet H1-2009 (test code = [place]. 30210-5) Oseltamivir is the drug of choice. Conside r stopping antibiotics. Influenza B (test Not detected Not detected, code = 62707-7) Equivocal Respiratory Syncytial Not detected Not detected, Virus (test code = Equivocal 24111-5) Parainfluenza Virus 1 Not detected Not detected, (test code = 63484-6) Equivocal Parainfluenza Virus 2 Not detected Not detected, (test code = 41539-8) Equivocal Parainfluenza virus 3 Not detected Not detected, (test code = 52660-8) Equivocal Parainfluenza Virus 4 Not detected Not detected, (test code = 68576-6) Equivocal Adenovirus (test code Not detected Not detected, = 67751-2) Equivocal Coronavirus 229E Not detected Not detected, (test code = 66105-5) Equivocal Coronavirus HKU1 Not detected Not detected, (test code = 20103-1) Equivocal Coronavirus NL63 Not detected Not detected, (test code = 21704-4) Equivocal Coronavirus OC43 Not detected Not detected, (test code = 42211-2) Equivocal Bordetella Pertussis Not detected Not detected, (test code = 26040-4) Equivocal Chlamydophila Not detected Not detected, Pneumoniae (test code Equivocal = 62526-8) Mycoplasma Pneumoniae Not detected Not detected, (test code = 25287-3) Equivocal Severe Acute Not detected Not detected, Mxgjwsugjpc-QqG-3 Equivocal (test code = 17004-0) Bordtella Not detected Not detected, Parapertussis (test Equivocal code = 69108-7) SHANA (test code = SHANA) Other viruses and bacteria not targeted by this PCR panel cannot be excluded; therefore clinical correlation and follow up of serology, culture results, and other molecular studies is required. The results are not intended to be used as the sole means for clinical diagnosis or patient management decisions. This sample was tested at the [facility] using the [employer] Respiratory Panel. It is FDA cleared and has been verified and approved by the [facility] for clinical use on nasopharyngeal swab specimens. The performance of the [employer] RP has not been established in individuals who received influenza vaccine. Recent administration of a nasal influenza vaccine may cause false positive results for Influenza A and/orInfluenza B. Lab Interpretation Abnormal (test code = 51905-1) [facility] [id number] 15:22:28 Test Item Value Reference Interpretation Comments Range Human Metapneumovirus Not detected Not detected, (test code = 28777-9) Equivocal Rhinovirus (test code Not detected Not detected, = 80785-2) Equivocal INFLUENZA A (NO SUBTYPE) (test code = 71787-2) Influenza A subtype H1 (test code = 26357-2) Influenza A Subtype H3 (test code = 51019-1) Influenza A Subtype Detected Not detected, A Droplet H1-2009 (test code = Equivocal [place]. 10688-2) Oseltamivir is the drug of choice. Conside r stopping antibiotics. Influenza B (test Not detected Not detected, code = 70968-6) Equivocal Respiratory Syncytial Not detected Not detected, Virus (test code = Equivocal 99150-4) Parainfluenza Virus 1 Not detected Not detected, (test code = 62648-7) Equivocal Parainfluenza Virus 2 Not detected Not detected, (test code = 51296-4) Equivocal Parainfluenza virus 3 Not detected Not detected, (test code = 86371-6) Equivocal Parainfluenza Virus 4 Not detected Not detected, (test code = 99213-4) Equivocal Adenovirus (test code Not detected Not detected, = 57076-4) Equivocal Coronavirus 229E Not detected Not detected, (test code = 60297-7) Equivocal Coronavirus HKU1 Not detected Not detected, (test code = 15790-6) Equivocal Coronavirus NL63 Not detected Not detected, (test code = 39071-9) Equivocal Coronavirus OC43 Not detected Not detected, (test code = 26785-7) Equivocal Bordetella Pertussis Not detected Not detected, (test code = 65337-8) Equivocal Chlamydophila Not detected Not detected, Pneumoniae (test code Equivocal = 59572-4) Mycoplasma Pneumoniae Not detected Not detected, (test code = 60395-5) Equivocal Severe Acute Not detected Not detected, Nxogorjgace-FhM-4 Equivocal (test code = 08617-1) Bordtella Not detected Not detected, Parapertussis (test Equivocal code = 31162-7) SHANA (test code = SHANA) Other viruses and bacteria not targeted by this PCR panel cannot be excluded; therefore clinical correlation and follow up of serology, culture results, and other molecular studies is required. The results are not intended to be used as the sole means for clinical diagnosis or patient management decisions. This sample was tested at the [facility] using the Mr [employer]ana[employer] Respiratory Panel. It is FDA cleared and has been verified and approved by the [facility] for clinical use on nasopharyngeal swab specimens. The performance of the FilmArray RP has not been established in individuals who received influenza vaccine. Recent administration of a nasal influenza vaccine may cause false positive results for Influenza A and/orInfluenza B. Lab Interpretation Abnormal (test code = 57646-0) [facility] [id number] 15:22:28 Test Item Value Reference Interpretation Comments Range Human Metapneumovirus Not detected Not detected, (test code = 06723-1) Equivocal Rhinovirus (test code Not detected Not detected, = 18291-2) Equivocal INFLUENZA A (NO SUBTYPE) (test code = 44702-3) Influenza A subtype H1 (test code = 47009-7) Influenza A Subtype H3 (test code = 31459-5) Influenza A Subtype Detected Not detected, A Droplet H1-2009 (test code = Equiv[place]. 71660-6) Oseltamivir is the drug of choice. Conside r stopping antibiotics. Influenza B (test Not detected Not detected, code = 68088-3) Equivocal Respiratory Syncytial Not detected Not detected, Virus (test code = Equivocal 21895-3) Parainfluenza Virus 1 Not detected Not detected, (test code = 42741-8) Equivocal Parainfluenza Virus 2 Not detected Not detected, (test code = 68371-5) Equivocal Parainfluenza virus 3 Not detected Not detected, (test code = 24744-5) Equivocal Parainfluenza Virus 4 Not detected Not detected, (test code = 58943-5) Equivocal Adenovirus (test code Not detected Not detected, = 10663-8) Equivocal Coronavirus 229E Not detected Not detected, (test code = 13149-5) Equivocal Coronavirus HKU1 Not detected Not detected, (test code = 64882-1) Equivocal Coronavirus NL63 Not detected Not detected, (test code = 58489-8) Equivocal Coronavirus OC43 Not detected Not detected, (test code = 59756-7) Equivocal Bordetella Pertussis Not detected Not detected, (test code = 66251-9) Equivocal Chlamydophila Not detected Not detected, Pneumoniae (test code Equivocal = 78852-4) Mycoplasma Pneumoniae Not detected Not detected, (test code = 45627-0) Equivocal Severe Acute Not detected Not detected, Tutfhdvyvdl-XmW-8 Equivocal (test code = 23402-0) Bordtella Not detected Not detected, Parapertussis (test Equivocal code = 46542-1) SHANA (test code = SHANA) Other viruses and bacteria not targeted by this PCR panel cannot be excluded; therefore clinical correlation and follow up of serology, culture results, and other molecular studies is required. The results are not intended to be used as the sole means for clinical diagnosis or patient management decisions. This sample was tested at the [facility] using the Mr [employer] Respiratory Panel. It is FDA cleared and has been verified and approved by the [facility] for clinical use on nasopharyngeal swab specimens. The performance of the FilmArray RP has not been established in individuals who received influenza vaccine. Recent administration of a nasal influenza vaccine may cause false positive results for Influenza A and/orInfluenza B. Lab Interpretation Abnormal (test code = 04405-7) [facility] [id number] 15:22:28 Test Item Value Reference Interpretation Comments Range Human Metapneumovirus Not detected Not detected, (test code = 71666-1) Equivocal Rhinovirus (test code Not detected Not detected, = 98395-0) Equivocal INFLUENZA A (NO SUBTYPE) (test code = 20946-6) Influenza A subtype H1 (test code = 79139-8) Influenza A Subtype H3 (test code = 53750-7) Influenza A Subtype Detected Not detected, A Droplet H1-2009 (test code = Equiv[place]. 41739-0) Oseltamivir is the drug of choice. Conside r stopping antibiotics. Influenza B (test Not detected Not detected, code = 16520-1) Equivocal Respiratory Syncytial Not detected Not detected, Virus (test code = Equivocal 59193-4) Parainfluenza Virus 1 Not detected Not detected, (test code = 08387-2) Equivocal Parainfluenza Virus 2 Not detected Not detected, (test code = 56432-4) Equivocal Parainfluenza virus 3 Not detected Not detected, (test code = 21765-0) Equivocal Parainfluenza Virus 4 Not detected Not detected, (test code = 90883-7) Equivocal Adenovirus (test code Not detected Not detected, = 55350-0) Equivocal Coronavirus 229E Not detected Not detected, (test code = 59388-0) Equivocal Coronavirus HKU1 Not detected Not detected, (test code = 00718-0) Equivocal Coronavirus NL63 Not detected Not detected, (test code = 82237-8) Equivocal Coronavirus OC43 Not detected Not detected, (test code = 40502-7) Equivocal Bordetella Pertussis Not detected Not detected, (test code = 65669-8) Equivocal Chlamydophila Not detected Not detected, Pneumoniae (test code Equivocal = 96846-2) Mycoplasma Pneumoniae Not detected Not detected, (test code = 69019-0) Equivocal Severe Acute Not detected Not detected, Cipblcmizln-BaD-4 Equivocal (test code = 79615-5) Bordtella Not detected Not detected, Parapertussis (test Equivocal code = 62359-7) SHANA (test code = SHANA) Other viruses and bacteria not targeted by this PCR panel cannot be excluded; therefore clinical correlation and follow up of serology, culture results, and other molecular studies is required. The results are not intended to be used as the sole means for clinical diagnosis or patient management decisions. This sample was tested at the [facility] using the Mr [employer] Respiratory Panel. It is FDA cleared and has been verified and approved by the [facility] for clinical use on nasopharyngeal swab specimens. The performance of the FilmArray RP has not been established in individuals who received influenza vaccine. Recent administration of a nasal influenza vaccine may cause false positive results for Influenza A and/orInfluenza B. Lab Interpretation Abnormal (test code = 45987-7) [facility] [id number] 15:22:28 Test Item Value Reference Interpretation Comments Range Human Metapneumovirus Not detected Not detected, (test code = 04809-7) Equivocal Rhinovirus (test code Not detected Not detected, = 30395-6) Equivocal INFLUENZA A (NO SUBTYPE) (test code = 97106-9) Influenza A subtype H1 (test code = 24380-4) Influenza A Subtype H3 (test code = 77353-5) Influenza A Subtype Detected Not detected, A Droplet H1-2009 (test code = Equiv[place]. 92543-4) Oseltamivir is the drug of choice. Conside r stopping antibiotics. Influenza B (test Not detected Not detected, code = 91266-7) Equivocal Respiratory Syncytial Not detected Not detected, Virus (test code = Equivocal 58946-2) Parainfluenza Virus 1 Not detected Not detected, (test code = 21819-4) Equivocal Parainfluenza Virus 2 Not detected Not detected, (test code = 87851-0) Equivocal Parainfluenza virus 3 Not detected Not detected, (test code = 13800-1) Equivocal Parainfluenza Virus 4 Not detected Not detected, (test code = 57971-3) Equivocal Adenovirus (test code Not detected Not detected, = 80674-8) Equivocal Coronavirus 229E Not detected Not detected, (test code = 90345-9) Equivocal Coronavirus HKU1 Not detected Not detected, (test code = 76045-0) Equivocal Coronavirus NL63 Not detected Not detected, (test code = 32921-9) Equivocal Coronavirus OC43 Not detected Not detected, (test code = 30215-3) Equivocal Bordetella Pertussis Not detected Not detected, (test code = 96226-7) Equivocal Chlamydophila Not detected Not detected, Pneumoniae (test code Equivocal = 94868-4) Mycoplasma Pneumoniae Not detected Not detected, (test code = 05143-8) Equivocal Severe Acute Not detected Not detected, Czmkabwzeoe-LeN-8 Equivocal (test code = 10920-3) Bordtella Not detected Not detected, Parapertussis (test Equivocal code = 14768-1) SHANA (test code = SHANA) Other viruses and bacteria not targeted by this PCR panel cannot be excluded; therefore clinical correlation and follow up of serology, culture results, and other molecular studies is required. The results are not intended to be used as the sole means for clinical diagnosis or patient management decisions. This sample was tested at the [facility] using the [employer] Respiratory Panel. It is FDA cleared and has been verified and approved by the [facility] for clinical use on nasopharyngeal swab specimens. The performance of the [employer] RP has not been established in individuals who received influenza vaccine. Recent administration of a nasal influenza vaccine may cause false positive results for Influenza A and/orInfluenza B. Lab Interpretation Abnormal (test code = 50911-4) [facility] [id number] 15:22:28 Test Item Value Reference Interpretation Comments Range Human Metapneumovirus Not detected Not detected, (test code = 89622-5) Equivocal Rhinovirus (test code Not detected Not detected, = 72567-5) Equivocal INFLUENZA A (NO SUBTYPE) (test code = 38479-0) Influenza A subtype H1 (test code = 76213-2) Influenza A Subtype H3 (test code = 32496-2) Influenza A Subtype Detected Not detected, A Droplet H1-2009 (test code = [place]. 454[address]-2) Oseltamivir is the drug of choice. Conside r stopping antibiotics. Influenza B (test Not detected Not detected, code = 87652-2) Equivocal Respiratory Syncytial Not detected Not detected, Virus (test code = Equivocal 03855-9) Parainfluenza Virus 1 Not detected Not detected, (test code = 00301-8) Equivocal Parainfluenza Virus 2 Not detected Not detected, (test code = 13944-7) Equivocal Parainfluenza virus 3 Not detected Not detected, (test code = 94104-1) Equivocal Parainfluenza Virus 4 Not detected Not detected, (test code = 54327-5) Equivocal Adenovirus (test code Not detected Not detected, = 01933-4) Equivocal Coronavirus 229E Not detected Not detected, (test code = 17365-0) Equivocal Coronavirus HKU1 Not detected Not detected, (test code = 54032-4) Equivocal Coronavirus NL63 Not detected Not detected, (test code = 43879-0) Equivocal Coronavirus OC43 Not detected Not detected, (test code = 71526-7) Equivocal Bordetella Pertussis Not detected Not detected, (test code = 83618-7) Equivocal Chlamydophila Not detected Not detected, Pneumoniae (test code Equivocal = 65179-1) Mycoplasma Pneumoniae Not detected Not detected, (test code = 41351-9) Equivocal Severe Acute Not detected Not detected, Qkdbzfjjppg-YyR-8 Equivocal (test code = 80424-8) Bordtella Not detected Not detected, Parapertussis (test Equivocal code = 93119-8) SHANA (test code = SHANA) Other viruses and bacteria not targeted by this PCR panel cannot be excluded; therefore clinical correlation and follow up of serology, culture results, and other molecular studies is required. The results are not intended to be used as the sole means for clinical diagnosis or patient management decisions. This sample was tested at the [facility] using the Mr BananaArray Respiratory Panel. It is FDA cleared and has been verified and approved by the [facility] for clinical use on nasopharyngeal swab specimens. The performance of the FilmArray RP has not been established in individuals who received influenza vaccine. Recent administration of a nasal influenza vaccine may cause false positive results for Influenza A and/orInfluenza B. Lab Interpretation Abnormal (test code = 10825-3) [facility] [id number] 15:22:28 Test Item Value Reference Interpretation Comments Range Human Metapneumovirus Not detected Not detected, (test code = 33595-6) Equivocal Rhinovirus (test code Not detected Not detected, = 81146-5) Equivocal INFLUENZA A (NO SUBTYPE) (test code = 20836-4) Influenza A subtype H1 (test code = 55091-8) Influenza A Subtype H3 (test code = 24429-6) Influenza A Subtype Detected Not detected, A Droplet H1-2009 (test code = [place]. 63608-9) Oseltamivir is the drug of choice. Conside r stopping antibiotics. Influenza B (test Not detected Not detected, code = 43770-1) Equivocal Respiratory Syncytial Not detected Not detected, Virus (test code = Equivocal 33424-8) Parainfluenza Virus 1 Not detected Not detected, (test code = 96060-0) Equivocal Parainfluenza Virus 2 Not detected Not detected, (test code = 60284-0) Equivocal Parainfluenza virus 3 Not detected Not detected, (test code = 81520-6) Equivocal Parainfluenza Virus 4 Not detected Not detected, (test code = 98333-1) Equivocal Adenovirus (test code Not detected Not detected, = 75213-5) Equivocal Coronavirus 229E Not detected Not detected, (test code = 05232-6) Equivocal Coronavirus HKU1 Not detected Not detected, (test code = 02281-5) Equivocal Coronavirus NL63 Not detected Not detected, (test code = 92289-5) Equivocal Coronavirus OC43 Not detected Not detected, (test code = 38636-8) Equivocal Bordetella Pertussis Not detected Not detected, (test code = 57598-5) Equivocal Chlamydophila Not detected Not detected, Pneumoniae (test code Equivocal = 32068-5) Mycoplasma Pneumoniae Not detected Not detected, (test code = 26469-6) Equivocal Severe Acute Not detected Not detected, Pcnkkydoatr-RjB-8 Equivocal (test code = 07665-8) Bordtella Not detected Not detected, Parapertussis (test Equivocal code = 78549-8) SHANA (test code = SHANA) Other viruses and bacteria not targeted by this PCR panel cannot be excluded; therefore clinical correlation and follow up of serology, culture results, and other molecular studies is required. The results are not intended to be used as the sole means for clinical diagnosis or patient management decisions. This sample was tested at the [facility] using the Mr BananaArray Respiratory Panel. It is FDA cleared and has been verified and approved by the [facility] for clinical use on nasopharyngeal swab specimens. The performance of the FilmArray RP has not been established in individuals who received influenza vaccine. Recent administration of a nasal influenza vaccine may cause false positive results for Influenza A and/orInfluenza B. Lab Interpretation Abnormal (test code = 18942-1) [facility] [id number] 15:22:28 Test Item Value Reference Range Interpretation [...] ACUTE Not detected Not detected, RESPIRATORY Equivocal [id number]-[id number] (test code = 5429428) BORDETELLA Not detected Not detected, PARAPERTUSSIS (BKR) Equivocal (test code = 1460228) Other viruses and bacteria not targeted by this PCR panel cannot be excluded; therefore clinical correlation and follow up of serology, culture results, and other molecular studies is required. The results are not intended to be used as the sole means for clinical diagnosis or patient management decisions. This sample was tested at the [facility] using the Mr BananaArray Respiratory Panel. It is FDA cleared and has been verified and approved by the [facility] for clinical use on nasopharyngeal swab specimens.The performance of the FilmArrayRP has not been established in individuals who received influenza vaccine. Recent administration of a nasal influenza vaccine may cause false positive results for Influenza A and/orInfluenza B.BILIRUBIN, [id number] 14:19:13 Test Item Value Reference Range Interpretation Comments BILIRUBIN DIRECT (BEAKER) (test 0.5 mg/dL 0.1-0.5 code = 706) Seo Coordinator ID - LIBBY BHEPATIC FUNCTION [id number] 11:30:00 Test Item Value Reference Range Interpretation [...] (test code = 15 U/L 6-55 347) Seo Coordinator ID - LIBBY BBASIC METABOLIC [id number] 11:29:59 Test Item Value Reference Range Interpretation [...] not appl icable for dialysis patien ts Seo Coordinator ID - LIBBY [id number] 11:29:59 Test Item Value Reference Range Interpretation Comments MAGNESIUM (BEAKER) (test code = 1.6 mg/dL 1.6-2.6 627) Seo Coordinator ID - LIBBY [id number] 11:29:59 Test Item Value Reference Range Interpretation Comments PHOSPHORUS (BEAKER) (test code = 3.2 mg/dL 2.3-4.7 604) Seo Coordinator ID - LIBBY BCBC W/PLT COUNT & AUTO [id number] 10:23:43 Test Item Value Reference Range Interpretation [...] PERCENT (BEAKER) (test code = 2801) Urine [id number] 09:37:23 Test Item Value Reference Range Interpretation Comments Result (test code = <10,000 col/mL skin 6463-4) [facility]2022-12-01 09:37:23 Test Item Value Reference Range Interpretation Comments Result (test code = <10,000 col/mL skin 6463-4) [facility] [id number] 09:37:23 Test Item Value Reference Range Interpretation Comments Result (test code = <10,000 col/mL skin 6463-4) [facility]2022-12-01 09:37:23 Test Item Value Reference Range Interpretation Comments Result (test code = <10,000 col/mL skin 6463-4) [facility] [id number] 09:37:23 Test Item Value Reference Range Interpretation Comments Result (test code = <10,000 col/mL skin 6463-4) [facility]2022-12-01 09:37:23 Test Item Value Reference Range Interpretation Comments Result (test code = <10,000 col/mL skin 6463-4) [facility]2022-12-01 09:37:23 Test Item Value Reference Range Interpretation Comments Result (test code = <10,000 col/mL skin 6463-4) [facility]men [facility] [id number] 09:37:23 Test Item Value Reference Range Interpretation Comments Result (test code = <10,000 col/mL skin 6463-4) [facility], NON [id number] 03:15:00Reason for exam:->feverShould this be performed at the bedside?->Yes [facility] 1975 Sex: MFINAL REPORT PORTABLE AP CHEST ORDERED AT 09/08/2022 6:54 PM HISTORY: Fever. COMPARISON: Chest radiograph 11/13/2021 IMPRESSION: Heart size is normal. There is no consolidation, effusion or pneumothorax. No evidence of acute osseous abnormality. No evidence of pulmonary edema. Signed: Cyn Calle Verified Date/Time: 09/09/2022 03:15:00 Strep pneumoniae [id number] 20:38:59 Test Item Value Reference Range Interpretation Comments Strep pneumoniae Presumptive negative Presumptive Antigen (test code = [place] [address]-4) pneumonia - see pneumococcal comment pneumonia - [...] test. Lab Interpretation Normal (test code = 80104-4) [facility] [id number] 20:38:59 Test Item Value Reference Range Interpretation Comments Strep pneumoniae Presumptive negative Presumptive Antigen (test code = [place] [address]-5) pneumonia - see pneumococcal comment pneumonia - [...] test. Lab Interpretation Normal (test code = 50459-0) [facility] pneumoniae [id number] 20:38:59 Test Item Value Reference Range Interpretation Comments Strep pneumoniae Presumptive negative Presumptive Antigen (test code = [place] 65236-1) pneumonia - see pneumococcal comment pneumonia - [...] test. Lab Interpretation Normal (test code = 01319-5) [facility] pneumoniae [id number] 20:38:59 Test Item Value Reference Range Interpretation Comments Strep pneumoniae Presumptive negative Presumptive Antigen (test code = [place] [address]-9) pneumonia - see pneumococcal comment pneumonia - [...] test. Lab Interpretation Normal (test code = 15893-2) [facility] pneumoniae [id number] 20:38:59 Test Item Value Reference Range Interpretation Comments Strep pneumoniae Presumptive negative Presumptive Antigen (test code = [place] [address]72-6) pneumonia - see pneumococcal comment pneumonia - [...] test. Lab Interpretation Normal (test code = 52828-0) [facility] pneumoniae [id number] 20:38:59 Test Item Value Reference Range Interpretation Comments Strep pneumoniae Presumptive negative Presumptive Antigen (test code = [place] [address]-7) pneumonia - see pneumococcal comment pneumonia - [...] test. Lab Interpretation Normal (test code = 27560-5) [facility] pneumoniae [id number] 20:38:59 Test Item Value Reference Range Interpretation Comments Strep pneumoniae Presumptive negative Presumptive Antigen (test code = for pneumococcal negative for 00529-0) pneumonia - see pneumococcal comment pneumonia - [...] test. Lab Interpretation Normal (test code = 66159-2) [facility] pneumoniae [id number] 20:38:59 Test Item Value Reference Range Interpretation Comments Strep pneumoniae Presumptive negative Presumptive Antigen (test code = [place] 03111-8) pneumonia - see pneumococcal comment pneumonia - [...] test. Lab Interpretation Normal (test code = 51894-7) [facility] PNEUMONIAE [id number] 20:38:59 Test Item Value Reference Range Interpretation [...] detection limit of the test. LACTIC ACID, [id number] 19:00:48 Test Item Value Reference Range Interpretation Comments LACTATE BLOOD VENOUS (2) (BEAKER) 0.95 mmol/L 0.50-2.20 (test code = 2872) Seo Coordinator ID - [id number] 19:00:27 Test Item Value Reference Range Interpretation Comments PROCALCITONIN (BEAKER) (test code = < ng/mL <0.05 3036) SEPSIS RISK (ng/mL)Low: 0.05-0.50Intermediate: 0.51-2.00High: >=2.01LACTIC ACID, [id number] 18:47:20 Test Item Value Reference Range Interpretation Comments LACTATE BLOOD VENOUS (2) (BEAKER) 0.97 mmol/L 0.50-2.20 (test code = 2872) Seo Coordinator ID - EDCOMPREHENSIVE METABOLIC [id number] 05:42:03 Test Item Value Reference Range Interpretation [...] not appl icable for dialysis patien ts Seo Coordinator ID - NEIL [id number] 05:42:03 Test Item Value Reference Range Interpretation Comments MAGNESIUM (BEAKER) (test code = 1.5 mg/dL 1.6-2.6 L 627) Seo Coordinator ID - NEIL MCBC (HEMOGRAM ONLY)2022-09-08 05:11:49 [...] SARS-Co V-2 (test code = target nucleic 53410-9) acids are not detected in thi s [...] revoked sooner. Fact Sheet for Healthcare Providers: https://www.Spoonity/Documents/Xp ert%20Xpress%20SAR S%20CoV-2/Fact%20S heets/302-3802%20S ARS-COV-2%20HEALTH CARE%20PROVIDERS%2 0FACT%20SHEET.pdf Fact Sheet for Healthcare Patients: https://www.Spoonity/Documents/Xp ert%20Xpress%20SAR S%20CoV-2/Fact%20S heets/302-3801%20S ARS-COV-2%20PATIEN T%20FACT%20SHEET.p df Lab Interpretation Normal (test code = 17635-1) [facility] (Asymptomatic ONLY)2022-09-07 07:59:01 Test Item Value Reference Interpretation Comments Range SARS-COV2/RT-PCR Negative Negative The SARS-Co V-2 (test code = target nucleic 49034-5) acids are not detected in thi s [...] revoked sooner. Fact Sheet for Healthcare Providers: https://www.Spoonity/Documents/Xp ert%20Xpress%20SAR S%20CoV-2/Fact%20S heets/302-3802%20S ARS-COV-2%20HEALTH CARE%20PROVIDERS%2 0FACT%20SHEET.pdf Fact Sheet for Healthcare Patients: https://www.Spoonity/Documents/Xp ert%20Xpress%20SAR S%20CoV-2/Fact%20S heets/302-3801%20S ARS-COV-2%20PATIEN T%20FACT%20SHEET.p df Lab Interpretation Normal (test code = 46673-9) [facility] ([facility])2022-09-07 07:59:01 Test Item Value Reference Range Interpretation Comments SARS-COV2/RT-PCR Negative Negative The SARS-Co V-2 target (test code = nucleic acids a re not 0177347) detected in thi s specimen. Negative result s do not preclude SARS-C oV-2 infection and s hould not be used as the júnior e basis for patient managem ent decisions. Nega tive results must be combine d with clinical observ ations, patient history , and epidemiological information. A false negativ e result may occur if a spec imen is improperly panchito ected, transported or handled. This SARS CoV-2 test is a rapid, real-time RT-PC R test intended for th e qualitative detection of nu cleic acid from SARS-CoV-2 in a nasopharyngeal swab specimen collected from individuals suspected of CO VID-19 by [facility]. This test has been authorized [...] revoked sooner. Fact Sheet for Healthcare Providers: https://www.Doorman.[employer] m/Documents/Xpert%20Xpress%20SARS%20CoV-2/Fact%20Sheets/302-3802%90NQYG-XES-5%20 HEALTHCARE%20PROVIDERS%20FACT%20SHEET.pdf Fact Sheet for Healthcare Patients: https://www.TYMR/Documents/Xpert%20Xp ress%20SARS%20CoV-2/Fact%20Sheets/302-3801%42VTQB-XOJ-0%20PATIENT%20FACT%20SHEET .pdfCT, [id number] 04:48:00Unlisted Reason for Exam - Click Yes and Enter Reason Below->NoIs this for enterography?->NoWill this procedure require oral contrast?->No [facility] 1975 Sex: MFINAL [...] obstruction. Signed: Rui Burger MDReport Verified Date/Time: 022 04:48:11 TIC FUNCTION [id number] 04:11:49 Test Item Value Reference Range Interpretation [...] (test code = 25 U/L 6-55 347) Seo Coordinator ID - CHAMP WOperator ID Onofre OAKES [id number] 03:24:36 Test Item Value Reference Range Interpretation Comments LIPASE (BEAKER) (test code = 749) < U/L 8-78 L Seo Coordinator ID - CHAMP WBASIC METABOLIC [id number] 02:56:41 Test Item Value Reference Range Interpretation [...] not appl icable for dialysis patien ts Seo Coordinator ID - CHAMP WLACTIC ACID, [id number] 02:52:40 Test Item Value Reference Range Interpretation Comments LACTATE BLOOD VENOUS 1.11 mmol/L 0.50-2.20 Specime n slightly (2) (BEAKER) (test hemolyzed code = 2692) Seo Coordinator HODA OAKES WCBC W/PLT COUNT & AUTO [id number] 02:31:37 Test Item Value Reference Range Interpretation [...] = 2801) Urinalysis w/Microscopic + Reflex to [id number] 02:18:03 Test Item Value Reference Range Interpretation Comments Color, UA (test code Yellow = 5778-6) Clarity, UA (test Hazy code = 5767-9) Specific [place], UA 1.028 1.001-1.035 (test code = 5811-5) pH, UA (test code = 6.0 5.0-8.0 5803-2) Protein, UA (test 20 mg/dL Negative A code = 59770-4) Glucose, UA (test 150 mg/dL Negative A code = 365) Ketones, UA (test Negative Negative code = 2514-8) Bilirubin, UA (test Negative Negative code = 89161-0) Blood, UA (test code Negative Negative = 14991-7) Nitrite, UA (test Negative Negative code = 5802-4) Leukocytes, UA (test Small Negative A code = 5799-2) Urobilinogen, UA 0.2 0.2-1.0 (test code = 66813-3) RBC, UA (test code = 15 See_Comment [Autom ated 24970-5) message] The system which generated this result [...] UA See_Comment [Automate d (test code = 51404-5) messag e] The system which generated this [...] (test Occasional None Seen A code = 15572-8) Specimen Source (test code = 2795) SHANA (test code = SHANA) Seo Coordinator ID - [auto]Seo Coordinator ID - tech Lab Interpretation Abnormal (test code = 37643-9) [facility]Microscopic + Reflex to Culture 2022-09-07 02:18:03 Test Item Value Reference Range Interpretation Comments Color, UA (test code Yellow = 5778-6) Clarity, UA (test Hazy code = 5767-9) Specific [place], UA 1.028 1.001-1.035 (test code = 5811-5) pH, UA (test code = 6.0 5.0-8.0 5803-2) Protein, UA (test 20 mg/dL Negative A code = 96066-5) Glucose, UA (test 150 mg/dL Negative A code = 365) Ketones, UA (test Negative Negative code = 2514-8) Bilirubin, UA (test Negative Negative code = 15285-3) Blood, UA (test code Negative Negative = 64079-8) Nitrite, UA (test Negative Negative code = 5802-4) Leukocytes, UA (test Small Negative A code = 5799-2) Urobilinogen, UA 0.2 0.2-1.0 (test code = 00717-0) RBC, UA (test code = 15 See_Comment [Autom ated 51920-5) message] The system which generated this result [...] <1 See_Comment [Automate d (test code = 44040-0) messag e] The system which generated this [...] (test Occasional None Seen A code = 99125-9) Specimen Source (test code = 2795) SHANA (test code = SHANA) Seo Coordinator ID - [auto]Seo Coordinator ID - tech Lab Interpretation Abnormal (test code = 49515-6) [facility]Microscopic + Reflex to Culture 2022-09-07 02:18:03 Test Item Value Reference Range Interpretation Comments Color, UA (test code Yellow = 5778-6) Clarity, UA (test Hazy code = 5767-9) Specific [place], UA 1.028 1.001-1.035 (test code = 5811-5) pH, UA (test code = 6.0 5.0-8.0 5803-2) Protein, UA (test 20 mg/dL Negative A code = 86496-8) Glucose, UA (test 150 mg/dL Negative A code = 365) Ketones, UA (test Negative Negative code = 2514-8) Bilirubin, UA (test Negative Negative code = 88885-5) Blood, UA (test code Negative Negative = 25304-5) Nitrite, UA (test Negative Negative code = 5802-4) Leukocytes, UA (test Small Negative A code = 5799-2) Urobilinogen, UA 0.2 0.2-1.0 (test code = 11712-0) RBC, UA (test code = 15 See_Comment [Autom ated 72435-6) message] The system which generated this result [...] <1 See_Comment [Automate d (test code = 25370-7) messag e] The system which generated this [...] (test Occasional None Seen A code = 00813-1) Specimen Source (test code = 2795) SHANA (test code = SHANA) Seo Coordinator ID - [auto]Seo Coordinator ID - tech Lab Interpretation Abnormal (test code = 66781-8) [facility]Microscopic + Reflex to Culture 2022-09-07 02:18:03 Test Item Value Reference Range Interpretation Comments Color, UA (test code Yellow = 5778-6) Clarity, UA (test Hazy code = 5767-9) Specific [place], UA 1.028 1.001-1.035 (test code = 5811-5) pH, UA (test code = 6.0 5.0-8.0 5803-2) Protein, UA (test 20 mg/dL Negative A code = 21066-9) Glucose, UA (test 150 mg/dL Negative A code = 365) Ketones, UA (test Negative Negative code = 2514-8) Bilirubin, UA (test Negative Negative code = 69800-6) Blood, UA (test code Negative Negative = 93771-6) Nitrite, UA (test Negative Negative code = 5802-4) Leukocytes, UA (test Small Negative A code = 5799-2) Urobilinogen, UA 0.2 0.2-1.0 (test code = 40758-4) RBC, UA (test code = 15 See_Comment [Autom ated 62387-6) message] The system which generated this result [...] <1 See_Comment [Automate d (test code = 95779-9) messag e] The system which generated this [...] (test Occasional None Seen A code = 46268-4) Specimen Source (test code = 2795) SHANA (test code = SHANA) Seo Coordinator ID - [auto]Seo Coordinator ID - tech Lab Interpretation Abnormal (test code = 14081-1) [facility]/Microscopic + Reflex to Culture 2022-09-07 02:18:03 Test Item Value Reference Range Interpretation Comments Color, UA (test code Yellow = 5778-6) Clarity, UA (test Hazy code = 5767-9) Specific [place], UA 1.028 1.001-1.035 (test code = 5811-5) pH, UA (test code = 6.0 5.0-8.0 5803-2) Protein, UA (test 20 mg/dL Negative A code = 44791-7) Glucose, UA (test 150 mg/dL Negative A code = 365) Ketones, UA (test Negative Negative code = 2514-8) Bilirubin, UA (test Negative Negative code = 64166-1) Blood, UA (test code Negative Negative = 83459-1) Nitrite, UA (test Negative Negative code = 5802-4) Leukocytes, UA (test Small Negative A code = 5799-2) Urobilinogen, UA 0.2 0.2-1.0 (test code = 98019-3) RBC, UA (test code = 15 See_Comment [Autom ated 02652-5) message] The system which generated this result [...] <1 See_Comment [Automate d (test code = 92768-3) messag e] The system which generated this [...] (test Occasional None Seen A code = 52344-5) Specimen Source (test code = 2795) SHANA (test code = SHANA) Seo Coordinator ID - [auto]Seo Coordinator ID - tech Lab Interpretation Abnormal (test code = 14157-6) [facility]/Microscopic + Reflex to Culture 2022-09-07 02:18:03 Test Item Value Reference Range Interpretation Comments Color, UA (test code Yellow = 5778-6) Clarity, UA (test Hazy code = 5767-9) Specific [place], UA 1.028 1.001-1.035 (test code = 5811-5) pH, UA (test code = 6.0 5.0-8.0 5803-2) Protein, UA (test 20 mg/dL Negative A code = 44060-0) Glucose, UA (test 150 mg/dL Negative A code = 365) Ketones, UA (test Negative Negative code = 2514-8) Bilirubin, UA (test Negative Negative code = 34999-0) Blood, UA (test code Negative Negative = 27905-3) Nitrite, UA (test Negative Negative code = 5802-4) Leukocytes, UA (test Small Negative A code = 5799-2) Urobilinogen, UA 0.2 0.2-1.0 (test code = 66027-0) RBC, UA (test code = 15 See_Comment [Autom ated 55346-3) message] The system which generated this result [...] <1 See_Comment [Automate d (test code = 18015-9) messag e] The system which generated this [...] (test Occasional None Seen A code = 72499-4) Specimen Source (test code = 2795) SHANA (test code = SHANA) Seo Coordinator ID - [auto]Seo Coordinator ID - tech Lab Interpretation Abnormal (test code = 28044-9) [facility] w/Microscopic + Reflex to Culture 2022-09-07 02:18:03 Test Item Value Reference Range Interpretation Comments Color, UA (test code Yellow = 5778-6) Clarity, UA (test Hazy code = 5767-9) Specific [place], UA 1.028 1.001-1.035 (test code = 5811-5) pH, UA (test code = 6.0 5.0-8.0 5803-2) Protein, UA (test 20 mg/dL Negative A code = 50401-7) Glucose, UA (test 150 mg/dL Negative A code = 365) Ketones, UA (test Negative Negative code = 2514-8) Bilirubin, UA (test Negative Negative code = 41507-7) Blood, UA (test code Negative Negative = 66389-7) Nitrite, UA (test Negative Negative code = 5802-4) Leukocytes, UA (test Small Negative A code = 5799-2) Urobilinogen, UA 0.2 0.2-1.0 (test code = 30627-3) RBC, UA (test code = 15 See_Comment [Autom ated 10393-1) message] The system which generated this result [...] UA See_Comment [Automate d (test code = 40750-2) messag e] The system which generated this [...] (test Occasional None Seen A code = 83379-8) Specimen Source (test code = 2795) SHANA (test code = SHANA) Seo Coordinator ID - [auto]Seo Coordinator ID - tech Lab Interpretation Abnormal (test code = 16329-7) [facility] Ref[facility] Culture 2022-09-07 02:18:03 Test Item Value Reference Range Interpretation Comments Color, UA (test code Yellow = 5778-6) Clarity, UA (test Hazy code = 5767-9) Specific [place], UA 1.028 1.001-1.035 (test code = 5811-5) pH, UA (test code = 6.0 5.0-8.0 5803-2) Protein, UA (test 20 mg/dL Negative A code = 36460-7) Glucose, UA (test 150 mg/dL Negative A code = 365) Ketones, UA (test Negative Negative code = 2514-8) Bilirubin, UA (test Negative Negative code = 90631-4) Blood, UA (test code Negative Negative = 06568-1) Nitrite, UA (test Negative Negative code = 5802-4) Leukocytes, UA (test Small Negative A code = 5799-2) Urobilinogen, UA 0.2 0.2-1.0 (test code = 73201-6) RBC, UA (test code = 15 See_Comment [Autom ated 33638-0) message] The system which generated this result [...] UA See_Comment [Automate d (test code = 71394-5) messag e] The system which generated this [...] (test Occasional None Seen A code = 64286-1) Specimen Source (test code = 2795) SHANA (test code = SHANA) Seo Coordinator ID - [auto]Seo Coordinator ID - tech Lab Interpretation Abnormal (test code = 14369-8) [facility]opic + Reflex to Culture 2022-09-07 02:18:03 Test Item Value Reference Range Interpretation Comments Color, UA (test code Yellow = 5778-6) Clarity, UA (test Hazy code = 5767-9) Specific [place], UA 1.028 1.001-1.035 (test code = 5811-5) pH, UA (test code = 6.0 5.0-8.0 5803-2) Protein, UA (test 20 mg/dL Negative A code = 21682-7) Glucose, UA (test 150 mg/dL Negative A code = 365) Ketones, UA (test Negative Negative code = 2514-8) Bilirubin, UA (test Negative Negative code = 25299-2) Blood, UA (test code Negative Negative = 75528-0) Nitrite, UA (test Negative Negative code = 5802-4) Leukocytes, UA (test Small Negative A code = 5799-2) Urobilinogen, UA 0.2 0.2-1.0 (test code = 94663-4) RBC, UA (test code = 15 See_Comment [Autom ated 07692-1) message] The system which generated this result [...] UA See_Comment [Automate d (test code = 99467-8) messag e] The system which generated this [...] (test Occasional None Seen A code = 72368-9) Specimen Source (test code = 2795) SHANA (test code = SHANA) Seo Coordinator ID - [auto]Seo Coordinator ID - tech Lab Interpretation Abnormal (test code = 14414-9) [facility]FLEX URINE [id number] 02:18:03 Test Item Value Reference Range Interpretation [...] = 1521) SOURCE(BEAKER) (test code = 2795) Seo Coordinator ID - [auto]Seo Coordinator ID - techCF RESPIRATORY [id number] 13:04:52 Test Item Value Reference Range Interpretation Comments CULTURE (CLARKAKER) (test KLEBSIELLA A <1+ K lebsiella code [...] 3+ Normal respiratory maria del carmen presentCT, [id number] 05:31:00Reason for exam:->ABDOMINAL PAINReason for exam:->NAUSEAReason for exam:- >BLOATEDWhat is the patient's sedation requirement?->No Sedation [facility] MON[facility] RIVERALuisa SALAS : 1975 Sex: MFINAL REPORT CT, ABDOMEN [...] Signed: Teddy Ly MDReportVerified Date/Time: 06/27/2022 05:31:41 [id number] 02:42:45 Test Item Value Reference Range Interpretation Comments LIPASE (BEAKER) (test code = 749) < U/L 8-78 L Seo Coordinator ID - PIAYA LHEPATIC FUNCTION [id number] 02:15:20 Test Item Value Reference Range Interpretation [...] (test code = 16 U/L 6-55 347) Seo Coordinator ID - PIAYA LBASIC METABOLIC [id number] 02:15:19 Test Item Value Reference Range Interpretation [...] not appl icable for dialysis patien ts Seo Coordinator ID - PIAYA LCBC W/PLT COUNT & AUTO [id number] 01:44:55 Test Item Value Reference Range Interpretation [...] PERCENT (BEAKER) (test code = 2801) BLOOD [id number] 22:01:03 Test Item Value Reference Range Interpretation Comments CULTURE (BEAKER) (test No growth in 5 days code = 1095) BLOOD [id number] 22:01:03 Test Item Value Reference Range Interpretation Comments CULTURE (BEAKER) (test No growth in 5 days code = 1095) POC-Glucose [id number] 17:23:45 Test Item Value Reference Range Interpretation Comments POC-Glucose Meter (test 137 mg/dL 70-110 H : TE STED AT [facility] code = 1538) [address] [place] [address], 770 30: Seo Coordinator/Techni rian ID = [id number] for Cristian Brooks Lab Interpretation (test Abnormal code = 59413-5) [facility]Glucose [id number] 17:23:45 Test Item Value Reference Range Interpretation Comments POC-Glucose Meter (test 137 mg/dL 70-110 H : TE STED AT [facility] code = 1538) [address] [place] [address], 770 30: Seo Coordinator/Techni rian ID = [id number] for Confucianism, Kayl ynn Lab Interpretation (test Abnormal code = 73679-5) [facility]Glucose [id number] 17:23:45 Test Item Value Reference Range Interpretation Comments POC-Glucose Meter (test 137 mg/dL 70-110 H : TE STED AT [facility] code = 1538) [address] [place] [address], 770 30: Seo Coordinator/Techni rian ID = [id number] for Confucianism, Kayl ynn Lab Interpretation (test Abnormal code = 96853-7) [facility]ucose [id number] 17:23:45 Test Item Value Reference Range Interpretation Comments POC-Glucose Meter (test 137 mg/dL 70-110 H : TE STED AT [facility] code = 1538) [address] [place] [address], 770 30: Seo Coordinator/Techni rian ID = [id number] for Confucianism, Kayl ynn Lab Interpretation (test Abnormal code = 24855-1) [facility]-Glucose [id number] 17:23:45 Test Item Value Reference Range Interpretation Comments POC-Glucose Meter (test 137 mg/dL 70-110 H : TE STED AT [facility] code = 1538) [address] [place] [address], 770 30: Seo Coordinator/Techni rian ID = [id number] for Confucianism, Kayl ynn Lab Interpretation (test Abnormal code = 26627-9) [facility]-Glucose [id number] 17:23:45 Test Item Value Reference Range Interpretation Comments POC-Glucose Meter (test 137 mg/dL 70-110 H : TE STED AT [facility] code = 1538) [address] [place] [address], 770 30: Seo Coordinator/Techni rian ID = [id number] for Confucianism, Kayl ynn Lab Interpretation (test Abnormal code = 28471-0) [facility]-Glucose [id number] 17:23:45 Test Item Value Reference Range Interpretation Comments POC-Glucose Meter (test 137 mg/dL 70-110 H : TE STED AT [facility] code = 1538) [address] [place] [address], 770 30: Seo Coordinator/Techni rian ID = [id number] for Confucianism, Kayl ynn Lab Interpretation (test Abnormal code = 66343-1) [facility] [id number] 17:23:45 Test Item Value Reference Range Interpretation Comments POC-Glucose Meter (test 137 mg/dL 70-110 H : TE STED AT [facility] code = 1538) [address] [facility], 770 30: Seo Coordinator/Techni rian ID = [id number] for ConfucianismCristian Lab Interpretation (test Abnormal code = 52790-6) [facility]Glucose [id number] 17:23:45 Test Item Value Reference Range Interpretation Comments POC-Glucose Meter (test 137 mg/dL 70-110 H : TE STED AT [facility] code = 1538) [address] [facility], 770 30: Seo Coordinator/Techni rian ID = [id number] for Confucianism, Kayl ynn Lab Interpretation (test Abnormal code = 69628-8) [facility]SE [id number] 17:23:45 Test Item Value Reference Range Interpretation Comments POC-GLUCOSE METER 137 mg/dL 70-110 H : TESTED A T [facility] 67[address] (BEAKER) (test code = [facility], 1538) 61467: Seo Coordinator/Techni rian ID = [id number] for Ch ristian, Radha POCT-GLUCOSE [id number] 13:08:56 Test Item Value Reference Range Interpretation Comments POC-GLUCOSE METER 101 mg/dL 70-110 : TESTED A T [facility] 6720 (BEAKER) (test code = [facility], 1538) 72847: Seo Coordinator/Techni rian ID = [id number] for Ch ristian, Radha POCT-GLUCOSE [id number] 06:01:56 Test Item Value Reference Range Interpretation Comments POC-GLUCOSE METER 99 mg/dL 70-110 : TESTED A T [facility] 6720 (BEAKER) (test code = [facility], 1538) 54976: Seo Coordinator/Techni rian ID = [id number] for JENNY TTIL, NAOMI [id number] 04:54:21 Test Item Value Reference Range Interpretation Comments PHOSPHORUS (BEAKER) (test code = 2.2 mg/dL 2.3-4.7 L 604) Seo Coordinator ID - ANETA LBASIC METABOLIC [id number] 04:54:20 Test Item Value Reference Range Interpretation [...] not appl icable for dialysis patien ts Seo Coordinator ID - ANETA [id number] 04:54:20 Test Item Value Reference Range Interpretation Comments MAGNESIUM (BEAKER) (test code = 1.5 mg/dL 1.6-2.6 L 627) Seo Coordinator ID - ANETA LCALCIUM, [id number] 04:35:35 Test Item Value Reference Range Interpretation Comments CALCIUM IONIZED (BEAKER) (test 1.21 mmol/L 1.12-1.27 code = 698) PH, BLOOD (BEAKER) (test code = 7.44 1810) CBC W/PLT COUNT & AUTO [id number] 04:29:51 Test Item Value Reference Range Interpretation [...] PERCENT (BEAKER) (test code = 2801) POCT-GLUCOSE [id number] 00:27:52 Test Item Value Reference Range Interpretation Comments POC-GLUCOSE METER 122 mg/dL 70-110 H : TESTED A T [facility] 6720 (BEAKER) (test code = [facility], 1538) 13420: Seo Coordinator/Techni rian ID = [id number] for NAOMI WARD POCT-GLUCOSE [id number] 17:23:54 Test Item Value Reference Range Interpretation Comments POC-GLUCOSE METER 99 mg/dL 70-110 : TESTED A T [facility] 6720 (BEAKER) (test code = [facility], 1538) 50950: Seo Coordinator/Techni rian ID = [id number] for Radha Mulligan POCT-GLUCOSE [id number] 13:00:38 Test Item Value Reference Range Interpretation Comments POC-GLUCOSE METER 109 mg/dL 70-110 : TESTED A T [facility] 6720 (BEAKER) (test code = [facility], 1538) 33049: Seo Coordinator/Techni rian ID = [id number] for Radha Carranza POCT-GLUCOSE [id number] 08:29:30 Test Item Value Reference Range Interpretation Comments POC-GLUCOSE METER 88 mg/dL 70-110 : TESTED A T [facility] 6720 (BEAKER) (test code = [facility], 1538) 06815: Seo Coordinator/Techni rian ID = [id number] for Radha Mulligan [id number] 06:05:22 Test Item Value Reference Range Interpretation Comments MAGNESIUM (BEAKER) (test code = 1.6 mg/dL 1.6-2.6 627) Seo Coordinator ID - [id number] 06:05:22 Test Item Value Reference Range Interpretation Comments PHOSPHORUS (BEAKER) (test code = 2.5 mg/dL 2.3-4.7 604) Seo Coordinator ID - MITCHBASIC METABOLIC [id number] 06:05:21 Test Item Value Reference Range Interpretation [...] (test code = 697) EGFR (BEAKER) 91 Interpretati on of eGFR (test code = [...] not appl icable for dialysis patien ts Seo Coordinator ID - MITCHCBC W/PLT COUNT & AUTO [id number] 05:22:05 Test Item Value Reference Range Interpretation [...] PERCENT (BEAKER) (test code = 2801) CALCIUM, [id number] 05:08:23 Test Item Value Reference Range Interpretation Comments CALCIUM IONIZED (BEAKER) (test 1.18 mmol/L 1.12-1.27 code = 698) PH, BLOOD (BEAKER) (test code = 7.42 1810) POCT-GLUCOSE [id number] 21:15:12 Test Item Value Reference Range Interpretation Comments POC-GLUCOSE METER 98 mg/dL 70-110 : TESTED A T [facility] 6720 (BEAKER) (test code = [facility], 1538) 99013: Seo Coordinator/Techni rian ID = [id number] for KURT JACQUES POCT-GLUCOSE [id number] 17:48:23 Test Item Value Reference Range Interpretation Comments POC-GLUCOSE METER 90 mg/dL 70-110 : TESTED A T [facility] 6720 (BEAKER) (test code = [facility], 1538) 40480: Seo Coordinator/Techni rian ID = [id number] for BJORN SANCHES POCT-GLUCOSE [id number] 12:56:50 Test Item Value Reference Range Interpretation Comments POC-GLUCOSE METER 78 mg/dL 70-110 : TESTED A T [facility] 6720 (BEAKER) (test code = [facility], 1538) 25131: Seo Coordinator/Techni rian ID = [id number] for BJORN SANCHES POCT-GLUCOSE [id number] 10:25:02 Test Item Value Reference Range Interpretation Comments POC-GLUCOSE METER 86 mg/dL 70-110 : TESTED A T [facility] 6720 (BEAKER) (test code = [facility], 1538) 65725: Seo Coordinator/Techni rian ID = [id number] for MARGARITO BANDA POCT-GLUCOSE [id number] 08:38:42 Test Item Value Reference Range Interpretation Comments POC-GLUCOSE METER 39 mg/dL 70-110 LL : TESTED A T [facility] 6720 (BEAKER) (test code = [facility], 1538) 04881: Seo Coordinator/Techni rian ID = [id number] for BJORN SANCHES BASIC METABOLIC [id number] 06:19:55 Test Item Value Reference Range Interpretation [...] not appl icable for dialysis patien ts Seo Coordinator ID - ANETA [id number] 06:19:55 Test Item Value Reference Range Interpretation Comments MAGNESIUM (BEAKER) (test code = 1.7 mg/dL 1.6-2.6 627) Seo Coordinator ID - ANETA [id number] 06:19:55 Test Item Value Reference Range Interpretation Comments PHOSPHORUS (BEAKER) (test code = 2.7 mg/dL 2.3-4.7 604) Seo Coordinator ID - ANETA LCALCIUM, [id number] 05:32:18 Test Item Value Reference Range Interpretation Comments CALCIUM IONIZED (BEAKER) (test 1.17 mmol/L 1.12-1.27 code = 698) PH, BLOOD (BEAKER) (test code = 7.38 1810) CBC W/PLT COUNT & AUTO [id number] 05:17:46 Test Item Value Reference Range Interpretation [...] PERCENT (BEAKER) (test code = 2801) POCT-GLUCOSE [id number] 21:21:38 Test Item Value Reference Range Interpretation Comments POC-GLUCOSE METER 83 mg/dL 70-110 : TESTED A T [facility] 6720 (BEAKER) (test code = [facility], 153) 73036: Seo Coordinator/Techni rian ID = [id number] for GEORGIE , KURT POCT-GLUCOSE [id number] 17:35:25 Test Item Value Reference Range Interpretation Comments POC-GLUCOSE METER 92 mg/dL 70-110 : TESTED A T [facility] 6720 (BEAKER) (test code = [facility], 153) 89418: Seo Coordinator/Techni rian ID = [id number] for OLLIE OS, BJORN POCT-GLUCOSE [id number] 12:27:21 Test Item Value Reference Range Interpretation Comments POC-GLUCOSE METER 86 mg/dL 70-110 : TESTED A T [facility] 6720 (BEAKER) (test code = [facility], 1538) 82497: Seo Coordinator/Techni rian ID = [id number] for ABDIRASHID ANGEL BASIC METABOLIC [id number] 05:55:16 Test Item Value Reference Range Interpretation [...] not appl icable for dialysis patien ts Seo Coordinator ID - NEIL [id number] 05:55:16 Test Item Value Reference Range Interpretation Comments MAGNESIUM (BEAKER) (test code = 1.4 mg/dL 1.6-2.6 L 627) Seo Coordinator ID - NEIL MCBC W/PLT COUNT & AUTO [id number] 04:55:50 Test Item Value Reference Range Interpretation [...] PERCENT (BEAKER) (test code = 2801) SARS-COV2/RT-PCR ([facility])2022-06-18 23:40:17 Test Item Value Reference Range Interpretation Comments SARS-COV2/RT-PCR Negative Negative The SARS-Co V-2 target (test code = nucleic acids a re not 5642207) detected in thi s specimen. Negative result s do not preclude SARS-C oV-2 infection and s hould not be used as the júnior e basis for patient managem ent decisions. Nega tive results must be combine d with clinical observ ations, patient history , and epidemiological information. A false negativ e result may occur if a spec imen is improperly panchito ected, transported or handled. This SARS CoV-2 [...] revoked sooner. Fact Sheet for Healthcare Providers: https://www.Adaptly m/Documents/Xpert%20Xpress%20SARS%20CoV-2/Fact%20Sheets/3023802%36SWVE-GTD-5%20 HEALTHCARE%20PROVIDERS%20FACT%20SHEET.pdf Fact Sheet for Healthcare Patients: https://www.TYMR/Documents/Xpert%20Xp ress%20SARS%20CoV-2/Fact%20Sheets/3023801%35UJNU-VIQ-2%20PATIENT%20FACT%20SHEET .pdfCT, [id number] 23:39:00Unlisted Reason for Exam - Click Yes and Enter Reason Below->NoIs this for enterography?->NoWill this procedure require oral contrast?->No [facility] 1975 Sex: MFINAL REPORT TECHNIQUE: CT of the abdomen and pelvis WITH intravenous contrast and WITHOUT oral contrast. Dose modulation, iterative reconstruction, and/or weight-based adjustment of the mA/kV was utilized to reduce the radiation dose to as low as reasonably achievable. INDICATION: Bowel obstruction suspected. COMPARISON: 12/05/2021. FINDINGS: LOWER THORAX: [...] present throughout the colon and and fecal-like material within the distal ileum. Appearance is similar compared [...] intestinal obstruction syndrome in patient with cystic fibrosisand pancreatic insufficiency. Signed: Carmelo Mosley MDReport Verified Date/Time: 06/18/2022 23:39:49 POCT-GLUCOSE [id number] 23:35:19 Test Item Value Reference Range Interpretation Comments POC-GLUCOSE METER 105 mg/dL 70-110 : TESTED A T [facility] 6720 (BEAKER) (test code [place], = 1538) 96285: Seo Coordinator/Techni rian ID = [id number] for SABINE WOODS [id number] 21:52:33 Test Item Value Reference Range Interpretation Comments PARTIAL THROMBOPLASTIN TIME 31.4 seconds 22.5-36.0 (BEAKER) (test code = 760) PROTHROMBIN TIME/[id number] 21:51:51 Test Item Value Reference Range Interpretation Comments PROTIME (BEAKER) 18.2 seconds 11.9-14.2 H (test code = 759) INR (BEAKER) (test 1.61 See_Comment [Automat ed message] code = 370) The system Bottle generated this result transmitted ref erence range: [...] not appl icable for dialysis patien ts Seo Coordinator ID - NEIL MLACTIC ACID, [id number] 21:36:08 Test Item Value Reference Range Interpretation Comments LACTATE BLOOD VENOUS 1.03 mmol/L 0.50-2.20 Specime n slightly (2) (BEAKER) (test hemolyzed code = 9526) Seo Coordinator ID - HARLEY MCBC W/PLT COUNT & AUTO [id number] 21:29:50 Test Item Value Reference Range Interpretation [...] (test code = No acid fast bacilli 12617-1) [facility] smear (sputum only)2022-03-05 13:13:42 Test Item Value Reference Range Interpretation Comments Result (test code = No acid-fast bacilli 6463-4) isolated in 42 days AFB Smear (test code = No acid fast bacilli 50681-4) seen [facility] + smear (sputum only)2022-03-05 13:13:42 Test Item Value Reference Range Interpretation Comments Result (test code = No acid-fast bacilli 6463-4) isolated in 42 days AFB Smear (test code = No acid fast bacilli 92460-8) seen [facility] + smear (sputum only)2022-03-05 13:13:42 Test Item Value Reference Range Interpretation Comments Result (test code = No acid-fast bacilli 6463-4) isolated in 42 days AFB Smear (test code = No acid fast bacilli 42823-6) seen [facility] + smear (sputum only)2022-03-05 13:13:42 Test Item Value Reference Range Interpretation Comments Result (test code = No acid-fast bacilli 6463-4) isolated in 42 days AFB Smear (test code = No acid fast bacilli 65751-3) seen [facility] + smear (sputum only)2022-03-05 13:13:42 Test Item Value Reference Range Interpretation Comments Result (test code = No acid-fast bacilli 6463-4) isolated in 42 days AFB Smear (test code = No acid fast bacilli 43858-3) seen [facility] culture + smear (sputum only)2022-03-05 13:13:42 Test Item Value Reference Range Interpretation Comments Result (test code = No acid-fast bacilli 6463-4) isolated in 42 days AFB Smear (test code = No acid fast bacilli 59647-5) seen [facility] + smear (sputum only)2022-03-05 13:13:42 Test Item Value Reference Range Interpretation Comments Result (test code = No acid-fast bacilli 6463-4) isolated in 42 days AFB Smear (test code = No acid fast bacilli 85497-1) seen [facility] CULTURE + SMEAR (SPUTUM ONLY)2022-03-05 13:13:42 Test [...] code = 994) seen Fungus culture + [id number] 17:15:11 Test Item Value Reference Range Interpretation Comments Result (test code = No fungus isolated in [facility]) 28 days Fungus Smear (test No fungi seen code = 1406) [facility] + [id number] 17:15:11 Test Item Value Reference Range Interpretation Comments Result (test code = No fungus isolated in [facility]) 28 days Fungus Smear (test No fungi seen code = 1406) [facility] + [id number] 17:15:11 Test Item Value Reference Range Interpretation Comments Result (test code = No fungus isolated in [facility]) 28 days Fungus Smear (test No fungi seen code = 1406) [facility] + [id number] 17:15:11 Test Item Value Reference Range Interpretation Comments Result (test code = No fungus isolated in [facility]) 28 days Fungus Smear (test No fungi seen code = 1406) [facility] + [id number] 17:15:11 Test Item Value Reference Range Interpretation Comments Result (test code = No fungus isolated in [facility]) 28 days Fungus Smear (test No fungi seen code = 1406) [facility] + [id number] 17:15:11 Test Item Value Reference Range Interpretation Comments Result (test code = No fungus isolated in [facility]) 28 days Fungus Smear (test No fungi seen code = 1406) [facility] + [id number] 17:15:11 Test Item Value Reference Range Interpretation Comments CULTURE (BEAKER) (test No fungus isolated in code = 1095) 28 days FUNGUS SMEAR (BEAKER) No fungi seen (test code = 1406) FUNGUS CULTURE + [id number] 23:48:39 Test Item Value Reference Range Interpretation Comments CULTURE (BEAKER) (test No fungus isolated in code = 1095) 28 days FUNGUS SMEAR (BEAKER) No fungi seen (test code = 1406) CF RESPIRATORY [id number] 09:35:46 Test Item Value Reference Interpretation Comments [...] 4+ Normal respiratory maria del carmen presentSPIN/CONCENTRATION [id number] 06:58:03 Test Item Value Reference Range Interpretation Comments Concentration charged (test code = Done 2657) [facility] [id number] 06:58:03 Test Item Value Reference Range Interpretation Comments Concentration charged (test code = Done 2657) [facility]PIN[facility]CONCENTRATION [id number] 06:58:03 Test Item Value Reference Range Interpretation Comments Concentration charged (test code = Done 2657) [facility] [facility] [id number] 06:58:03 Test Item Value Reference Range Interpretation Comments Concentration charged (test code = Done 265) [facility] [id number] 06:58:03 Test Item Value Reference Range Interpretation Comments Concentration charged (test code = Done 2657) [facility]CONCENTR[facility] [id number] 06:58:03 Test Item Value Reference Range Interpretation Comments Concentration charged (test code = Done 2657) [facility] [id number] 06:58:03 Test Item Value Reference Range Interpretation Comments CONCENTRATION CHARGED (BEAKER) (test Done code = 2657) CF RESPIRATORY [id number] 12:17:43 Test Item Value Reference Interpretation Comments [...] S [Auto mated message] 1) The system Bottle generated this result transmit joann reference range : Susceptible 0-1 6 , Resistant <0 or >16 . The reference range was not u sed to interpret th is result as normal/abnormal . Aztreonam (test code See_Comment S [Autom ated message] = 32) The system Bottle generated this result transmit joann reference range : Susceptible 0-8 , Resistant <0 or >8 . The reference r taurus was not used to interpret this result as normal/abnormal . Cefepime (test code = See_Comment R [Auto mated message] 51) The system Bottle generated this result transmit joann reference range : Susceptible 0-8 , Resistant <0 or >8 . The reference r taurus was not used to interpret this result as normal/abnormal . Ceftazidime (test See_Comment S [Automate d message] code = 27) The system Bottle generated this result transmit joann reference range : Susceptible 0-8 , Resistant <0 or >8 . The reference r taurus was not used to interpret this result as normal/abnormal . Ciprofloxacin (test See_Comment S [Automa joann message] code = 7) The system Bottle generated this result transmit joann reference range : Susceptible 0-0 .5 , Resistant <0 or >.5 . The reference range was not u sed to interpret th is result as normal/abnormal . Doripenem (test code See_Comment S [Autom ated message] = 100) The system Bottle generated this result transmit joann reference range : Susceptible 0-2 , Resistant <0 or >2 . The reference r taurus was not used to interpret this result as normal/abnormal . Gentamicin (test code See_Comment S [Auto mated message] = 18) The system Bottle generated this result transmit joann reference range : Susceptible 0-4 , Resistant <0 or >4 . The reference r taurus was not used to interpret this result as normal/abnormal . Imipenem (test code = See_Comment S [Auto mated message] 19) The system Bottle generated this result transmit joann reference range : Susceptible 0-2 , Resistant <0 or >2 . The reference r taurus was not used to interpret this result as normal/abnormal . Levofloxacin (test See_Comment S [Automat ed message] code = 22) The system Bottle generated this result transmit joann reference range : Susceptible 0-1 , Resistant <0 or >1 . The reference r taurus was not used to interpret this result as normal/abnormal . Meropenem (test code See_Comment S [Autom ated message] = 34) The system Bottle generated this result transmit joann reference range : Susceptible 0-2 , Resistant <0 or >2 . The reference r taurus was not used to interpret this result as normal/abnormal . Piperacillin (test See_Comment S [Automat ed message] code = 24) The system Bottle generated this result transmit joann reference range [...] [Auto mated message] = 25) The system whic h generated this result transmit joann reference range : Susceptible 0-4 , Resistant <0 or >4 . The reference r taurus was not used to interpret this result as normal/abnormal . 3+ Normal respiratory maria del carmen presentSPIN/CONCENTRATION [id number] 11:16:43 Test Item Value Reference Range Interpretation Comments CONCENTRATION CHARGED (BEAKER) (test Done code = 2657) RAD, ABDOMEN/KUB, 1 VIEW [id number] 07:57:00Reason for exam:->Ileus [facility] 1975 Sex: MFINAL [...] MDReport Verified Date/Time: 12/06/2021 07:57:20 Basic Metabolic [id number] 06:04:20 Test Item Value Reference Range Interpretation [...] Calcium (test code = 8.8 mg/dL 8.4-10.2 76473-6) EGFR (test code = 85 mL/min/1.73 [place] [address]-6) NOT ACCURATE CREATININE CLEARANCE IN PREDICTING GLOMERULAR FILTRATION RATE . ESTIMATED GFR I S NOT APPLICABLE FOR DIALYSIS PATIENTS. SHANA (test code = SHANA) Seo Coordinator ID - DB Lab Interpretation Abnormal (test code = 07137-3) [facility] [id number] 06:04:20 Test Item Value Reference Range Interpretation [...] S NOT APPLICABLE FOR DIALYSIS PATIEN TS. Seo Coordinator ID - DBCBC (Hemogram only)2021-12-06 05:34:09 Test Item Value Reference Range Interpretation Comments WBC (test code = 6690-2) 6.3 See_Comment [A utomated message] The system Bottle generated this result transmitted ref erence range: 3.5 - 10 .5 K/L. The refe rence range was not u sed to interpret this result as normal/abnor mal. RBC (test code = 789-8) 3.96 See_Comment L [Au tomated message] The system Bottle generated this result transmitted ref erence range: 4.63 - 6 .08 M/L. The refe rence range was not u sed to interpret this result as normal/abnor mal. MCHC (test code = 786-4) 34.3 See_Comment L [A utomated message] The system Bottle generated this result transmitted ref erence range: [...] See_Comment [Aut omated message] 777-3) The system Bottle generated this result transmitted ref erence range: 150 - 45 0 K/CU MM. The referen ce range was not u sed to interpret this result as normal/abnor mal. MPV (test code = 10.6 fL 9.4-12.4 43924-5) nRBC (test code = 413) 0 See_Comment [Aut omated message] The system Bottle generated this result transmitted ref erence range: 0 - 0 /1 00 WBC. The refere nce range was not u sed to interpret this result as normal/abnor mal. Lab Interpretation (test Abnormal code = 83724-5) [facility]2021-12-06 05:34:09 Test Item Value Reference Range Interpretation Comments WBC (test code = 6690-2) 6.3 See_Comment [A utomated message] The system Bottle generated this result transmitted ref erence range: 3.5 - 10 .5 K/L. The refe rence range was not u sed to interpret this result as normal/abnor mal. RBC (test code = 789-8) 3.96 See_Comment L [Au tomated message] The system Bottle generated this result transmitted ref erence range: 4.63 - 6 .08 M/L. The refe rence range was not u sed to interpret this result as normal/abnor mal. MCHC (test code = 786-4) 34.3 See_Comment L [A utomated message] The system Bottle generated this result transmitted ref erence range: [...] See_Comment [Aut omated message] 777-3) The system Bottle generated this result transmitted ref erence range: 150 - 45 0 K/CU MM. The referen ce range was not u sed to interpret this result as normal/abnor mal. MPV (test code = 10.6 fL 9.4-12.4 78971-5) nRBC (test code = 413) 0 See_Comment [Aut omated message] The system Bottle generated this result transmitted ref erence range: 0 - 0 /1 00 WBC. The refere nce range was not u sed to interpret this result as normal/abnor mal. Lab Interpretation (test Abnormal code = 76383-9) [facility] ONLY[facility]2021-12-06 05:34:09 Test Item Value Reference [...] 0-0 (BEAKER) (test code = 413) POC-Glucose [id number] 17:51:28 Test Item Value Reference Range Interpretation Comments POC-Glucose Meter (test 137 mg/dL 70-110 H : TE STED AT [facility] code = 1538) [address] [facility] [place], [address]: Seo Coordinator/Techni rian ID = [id number] for Jane Мария Lab Interpretation (test Abnormal code = 52564-9) [facility]CT-GLUCOSE [id number] 17:51:28 Test Item Value Reference Range Interpretation Comments POC-GLUCOSE METER 137 mg/dL 70-110 H : TESTED A T [facility] [address] (BEAKER) (test code = JUSTINE Ha [facility], 1538) [address]: Seo Coordinator/Techni rian ID = [id number] for Tomasz hughes Мария SARS-CoV2/RT-PCR (Asymptomatic ONLY)2021-12-05 17:31:06 Test Item Value Reference Range Interpretation Comments SARS-COV2/RT-PCR Negative Not Detected, (test code = Negative, See 07613-4) external report for linked test SARS-COV-2 [facility] TERI PERFORMING LAB (test code = 15544-8) SHANA (test code = Negative result for [...] of the Act. Fact Sheet for Healthcare Providers:https://www.Zaarly ideDekko.Foxtrot/sites/default/f laureano/product/documents/F act_Sheet_HC_Providers_L obn_OTQI-QdC-9.pdf Fact Sheet for Healthcare Patients:https://www.Blaze.Foxtrot/sites/default/fi les/product/documents/Fa ct_Sheet_Patients_Lyra_S ARS-CoV-2.pdf Performing Laboratory:[place] [address] [place] [address] [facility]OV[facility] ([facility] RE[facility])2021-12-05 17:31:06 Test Item Value Reference Range Interpretation Comments SARS-COV2/RT-PCR (test Negative Not Detected, Negative, code = 4177256) See external report for linked test SARS-COV-2 PERFORMING LAB [facility] TERI (test code = 6116458) Negative result for this test determines that [...] of the Act.Fact Sheet for Healthcare Prov iders:https://www.[employer]/sites/default/files/product/documents/Fact_Sheet_HC _Yahvxxcem_Syjg_ZHGT-RgF-5.pdfFact Sheet for Healthcare Patients:https://www.bepretty.Foxtrot/sites/default/files/product/docume nts/Zpoy_Jpbbq_Goszjyzs_Tulm_RVRB-WzC-0.pdfPerforming Laboratory:[facility], [place] [address]IW, [id number] 10:17:00Unlisted Reason for Exam - Click Yes and Enter Reason Below->NoIs this for enterography?->NoWill this procedure require oral contrast?->No [facility] 1975 Sex: MFINAL [...] seen throughout the colon. Signed: Bennett Tran MDReport Verified Date/Time: 12/05/2021 10:17:33 Reading Location: [facility] C013X OrthoConsult Reading Room Comprehensive metabolic [id number] 08:12:08 Test Item Value Reference Range Interpretation Comments Protein, Total (test 7.8 See_Comment [Autom ated code = 2885-2) message] The system which generated this result transmit joann reference range : 6.0 - 8.3 gm/dL . The reference range was not u sed to interpret th is result as normal/abnormal . Albumin (test code = 4.2 g/dL 3.5-5.0 45770-7) Alkaline Phosphatase 94 U/L 40-150 (test code [...] Calcium (test code = 9.4 mg/dL 8.4-10.2 40454-1) AST (test code = 15 U/L 5-34 1920-8) ALT (test code = 14 U/L 6-55 1742-6) EGFR (test code = 79 mL/min/1.[place] [address]-6) NOT ACCURATE CREATININE CLEARANCE IN PREDICTING GLOMERULAR FILTRATION RATE . ESTIMATED GFR I S NOT APPLICABLE FOR DIALYSIS PATIEN TS. SHANA (test code = SHANA) Seo Coordinator ID - NEIL M Lab Interpretation Abnormal (test code = 07657-8) [facility]2022-[facility] 08:12:08 Test Item Value Reference Range Interpretation Comments Lipase (test code = 4 U/L 8-78 L 3040-3) SHANA (test code = SHANA) Seo Coordinator ID - NEIL M Lab Interpretation (test Abnormal code = 45159-8) [facility] BeachCOMPREHENSIVE METABOLIC [id number] 08:12:08 Test Item Value Reference Range Interpretation [...] S NOT APPLICABLE FOR DIALYSIS PATIEN TS. Seo Coordinator ID - NEIL [id number] 08:12:08 Test Item Value Reference Range Interpretation Comments LIPASE (BEAKER) (test code = 749) 4 U/L 8-78 L Seo Coordinator ID - NEIL MCBC with platelet count + automated [id number] 07:54:26 Test Item Value Reference Range Interpretation Comments WBC (test code = 6690-2) 7.2 See_Comment [A utomated message] The system Bottle generated this result transmitted ref erence range: 3.5 - 10 .5 K/L. The refe rence range was not u sed to interpret this result as normal/abnor mal. RBC (test code = 789-8) 4.53 See_Comment L [Au tomated message] The system Bottle generated this result transmitted ref erence range: 4.63 - 6 .08 M/L. The refe rence range was not u sed to interpret this result as normal/abnor mal. MCHC (test code = 786-4) 32.0 See_Comment L [A utomated message] The system Bottle generated this result transmitted ref erence range: [...] See_Comment [Aut omated message] 777-3) The system Bottle generated this result transmitted ref erence range: 150 - 45 0 K/CU MM. The referen ce range was not u sed to interpret this result as normal/abnor mal. MPV (test code = 10.4 fL 9.4-12.4 01493-7) nRBC (test code = 413) 0 See_Comment [Aut omated message] The system Bottle generated this result transmitted ref erence range: [...] See_Comment [Aut omated message] 670) The system Bottle generated this result transmitted ref erence range: 1.78 - 5 .38 K/L. The refe rence range was not u sed to interpret this result as normal/abnor mal. # Lymphs (test code = 1.62 See_Comment [Auto mated message] 414) The system Bottle generated this result transmitted ref erence range: 1.32 - 3 .57 K/L. The refe rence range was not u sed to interpret this result as normal/abnor mal. # Monos (test code = 0.83 See_Comment H [Autom ated message] 415) The system Bottle generated this result transmitted ref erence range: 0.30 - 0 .82 K/L. The refe rence range was not u sed to interpret this result as normal/abnor mal. # Eos (test code = 416) 0.14 See_Comment [Au tomated message] The system Bottle generated this result transmitted ref erence range: 0.04 - 0 .54 K/L. The refe rence range was not u sed to interpret this result as normal/abnor mal. # Baso (test code = 417) 0.05 See_Comment [A utomated message] The system Bottle generated this result transmitted ref erence range: 0.01 - 0 .08 K/L. The refe rence range was not u sed to interpret this result as normal/abnor mal. Immature 0 % 0-1 Granulocytes-Relative (test code = 2801) Lab Interpretation (test Abnormal code = 85080-3) [facility] W/PLT COUNT & AUTO [id number] 07:54:26 Test Item Value Reference Range Interpretation [...] code = 2801) RAD, ABDOMEN/KUB, 1 VIEW [id number] 14:09:00Reason for exam:->assess for improvement in bowel distension and stool burden [facility] : 1975 [...] the limitations of this study. Signed: Candelario [facility]osalaw[facility] Verified Date/Time: 11/30/2021 14:09:22 [facility] Reading Room BASIC METABOLIC [id number] 09:26:15 Test Item Value Reference Range Interpretation [...] S NOT APPLICABLE FOR DIALYSIS PATIEN TS. Seo Coordinator ID - DBBASIC METABOLIC [id number] 06:08:04 Test Item Value Reference Range Interpretation [...] S NOT APPLICABLE FOR DIALYSIS PATIEN TS. Seo Coordinator ID - BSCBC W/PLT COUNT & AUTO [id number] 05:40:30 Test Item Value Reference Range Interpretation [...] PERCENT (BEAKER) (test code = 2801) SARS-COV2/RT-PCR ([facility])2021-11-25 10:17:30 Test Item Value Reference Range Interpretation Comments SARS-COV2/RT-PCR (test Negative Not Detected, Negative, code = 8158919) See external report for linked test SARS-COV-2 PERFORMING LAB [facility] (test code = 9290124) Negative result for this test determines that [...] of the Act.Fact Sheet for Healthcare Prov iders:https://www.[employer]DA [employer]/sites/default/files/product/documents/Fact_Sheet_HC _Yzzlekccg_Pgvr_OMWD-LkU-1.pdfFact Sheet for Healthcare Patients:https://www.[employer]/sites/default/files/product/docume nts/Oads_Zljih_Syguxrlq_Ydyc_IXXU-MhR-5.pdfPerforming Laboratory:[facility], [place] [address]BP, [id number] 03:54:00Unlisted Reason for Exam - Click Yes and Enter Reason Below->NoIs this for enterography?->NoWill this procedure require oral contrast?->No [facility] 1975 Sex: MFINAL [...] Vizcarra MDRepor t Verified Date/Time: 11/25/2021 03:54:25 [id number] 02:50:36 Test Item Value Reference Range Interpretation Comments LIPASE (BEAKER) (test code = 749) < U/L 8-78 L Seo Coordinator ID - BSOperator ID - NEIL VASQUEZigh Sens Trop I ([facility]/Luisa Only) 2021-11-25 01:59:11 Test Item Value Reference Range Interpretation Comments Troponin I HS (test <4 See_Comment [Automa joann code = 57664-3) message] The system which generated this result transmitted reference range : <=35 pg/ml. The reference range was not used to interpret this result as normal/abnormal . SHANA (test code = Seo Coordinator ID - SHANA) BSThe WOOD ROUTER STAT High Sensitivity Troponin-I results should be used in conjunction with other diagnostic information such as ECG, clinical observations and information, and patient symptoms to aid in the diagnosis of [place]. Lab Interpretation Normal (test code = 01946-3) [facility]Luisa [facility]2021-11-25 01:59:11 Test Item Value Reference Range Interpretation Comments Troponin I HS (test <4 See_Comment [Automa joann code = 69792-3) message] The system which generated this result transmitted reference range : <=35 pg/ml. The reference range was not used to interpret this result as normal/abnormal . SHANA (test code = Seo Coordinator ID - SHANA) BSThe WOOD ROUTER STAT High Sensitivity Troponin-I results should be used in conjunction with other diagnostic information such as ECG, clinical observations and information, and patient symptoms to aid in the diagnosis of [place]. Lab Interpretation Normal (test code = 62721-3) [facility] ([facility]Luisa [facility])2021-11-25 01:59:11 Test Item Value Reference Range Interpretation Comments Troponin I HS (test <4 See_Comment [Automa joann code = 54976-4) message] The system which generated this result transmitted reference range : <=35 pg/ml. The reference range was not used to interpret this result as normal/abnormal . SHANA (test code = Seo Coordinator ID - SHANA) BSThe WOOD ROUTER STAT High Sensitivity Troponin-I results should be used in conjunction with other diagnostic information such as ECG, clinical observations and information, and patient symptoms to aid in the diagnosis of [place]. Lab Interpretation Normal (test code = 84638-6) [facility] ([facility]/Luisa Only)2021-11-25 01:59:11 Test Item Value Reference Range Interpretation Comments Troponin I HS (test <4 See_Comment [Automa joann code = 00839-4) message] The system which generated this result transmitted reference range : <=35 pg/ml. The reference range was not used to interpret this result as normal/abnormal . SHANA (test code = Seo Coordinator ID - SHANA) BSThe WOOD ROUTER STAT High Sensitivity Troponin-I results should be used in conjunction with other diagnostic information such as ECG, clinical observations and information, and patient symptoms to aid in the diagnosis of [place]. Lab Interpretation Normal (test code = 82249-7) [facility]ens [facility]rop [facility] ([facility]/Luisa Only)2021-11-25 01:59:11 Test Item Value Reference Range Interpretation Comments Troponin I HS (test <4 See_Comment [Automa joann code = 93794-0) message] The system which generated this result transmitted reference range : <=35 pg/ml. The reference range was not used to interpret this result as normal/abnormal . SHANA (test code = Seo Coordinator ID - SHANA) BSThe WOOD ROUTER STAT High Sensitivity Troponin-I results should be used in conjunction with other diagnostic information such as ECG, clinical observations and information, and patient symptoms to aid in the diagnosis of [place]. Lab Interpretation Normal (test code = 27831-2) [facility] Beach[facility]IGH SENSITIVITY TROPONIN [id number] 01:59:11 Test Item Value Reference Range Interpretation Comments HIGH SENSITIVITY < pg/ml See_Comment [Automated message] TROPONIN I (test code = The system which 1355863) generated this result transmitted ref erence range: <=35. Th e reference range was not used to interpr et this result as normal/abnormal . Seo Coordinator ID - BSThe WOOD ROUTER STAT High Sensitivity Troponin-I results should be used in conjunctionwith other diagnostic information such as ECG, clinical observations and information, and patient symptoms to aid in the diagnosis of [place].[id number] 01:52:12 Test Item Value Reference Range Interpretation Comments Magnesium (test code = 1.7 mg/dL 1.6-2.6 Speci men 85552-9) slightly hemolyzed SHANA (test code = SHANA) Seo Coordinator ID - BS Lab Interpretation Normal (test code = 39764-1) [facility] BeachMAGNESIUM2022-02-16 01:52:12 Test Item Value Reference Range Interpretation Comments MAGNESIUM (BEAKER) 1.7 mg/dL 1.6-2.6 Specimen slightly (test code = 627) hemolyzed Seo Coordinator ID - BSCOMPREHENSIVE METABOLIC [id number] 01:52:12 Test Item Value Reference Range Interpretation [...] S NOT APPLICABLE FOR DIALYSIS PATIEN TS. Seo Coordinator ID - BSCBC W/PLT COUNT & AUTO [id number] 01:21:26 Test Item Value Reference Range Interpretation [...] PERCENT (BEAKER) (test code = 2801) Urine [id number] 12:15:43 Test Item Value Reference Range Interpretation Comments Result (test code = 6463-4) No growth [facility] [id number] 12:15:43 Test Item Value Reference Range Interpretation Comments Result (test code = 6463-4) No growth [facility] HospitalUR[facility] [id number] 12:15:43 Test Item Value Reference Range Interpretation Comments CULTURE (BEAKER) (test code = 1095) No growth SARS-COV2/RT-PCR ([facility])2021-11-14 08:14:56 Test Item Value Reference Range Interpretation Comments SARS-COV2/RT-PCR (test Negative Not Detected, Negative, code = 8261733) See external report for linked test SARS-COV-2 PERFORMING LAB [facility] TERI (test code = 7678938) Negative result for this test determines that [...] of the Act.Fact Sheet for Healthcare Prov iders:https://www.[employer]/sites/default/files/product/documents/Fact_Sheet_HC _Zvmorynoy_Dzno_ZBXO-CsK-7.pdfFact Sheet for Healthcare Patients:https://www.[employer]/sites/default/files/product/docume nts/Pjpz_Juydh_Tpiknvac_Wene_VKVT-LkN-1.pdfPerforming Laboratory:[facility], [place] [address]CF, [id number] 00:42:00Unlisted Reason for Exam - Click Yes and Enter Reason Below->NoIs this for enterography?->NoWill this procedure require oral contrast?->No [facility] 1975 Sex: MFINAL [...] MDReport Verified Date/Time: 11/14/2021 00:42:44 COMPREHENSIVE METABOLIC [id number] 23:34:07 Test Item Value Reference Range Interpretation [...] S NOT APPLICABLE FOR DIALYSIS PATIEN TS. Seo Coordinator ID - [id number] 23:34:07 Test Item Value Reference Range Interpretation Comments LIPASE (BEAKER) (test code = 749) 5 U/L 8-78 L Seo Coordinator ID - [id number] 23:34:06 Test Item Value Reference Range Interpretation Comments MAGNESIUM (BEAKER) 1.5 mg/dL 1.6-2.6 L Specimen slightly (test code = 627) hemolyzed Seo Coordinator ID - DBUrinalysis w/Microscopic + Reflex to [id number] 23:00:38 Test Item Value Reference Range Interpretation Comments Color, UA (test code Yellow = 5778-6) Clarity, UA (test Clear code = 5767-9) Specific [place], UA 1.024 1.001-1.035 (test code = 5811-5) pH, UA (test code = 6.0 5.0-8.0 5803-2) Protein, UA (test Negative Negative code = 22952-5) Glucose, UA (test Negative Negative code = 365) Ketones, UA (test Negative Negative code = 2514-8) Bilirubin, UA (test Negative Negative code = 41773-7) Blood, UA (test code Negative Negative = 66714-2) Nitrite, UA (test Negative Negative code = 5802-4) Leukocytes, UA (test Negative Negative code = 5799-2) Urobilinogen, UA 2.0 mg/dL 0.2-1.0 H (test code = 74858-2) RBC, UA (test code = <1 See_Comment [Autom ated 65677-2) message] The system which generated this result [...] Bacteria, UA (test None Seen code = 77353-2) Crystals, Urine (test None Seen code = 27318-9) Amorphous Crystals Occasional (test code = 63145-3) Specimen Source (test code = 2795) SHANA (test code = SHANA) Seo Coordinator ID - [auto]Seo Coordinator ID - tech Lab Interpretation Abnormal (test code = 30915-7) [facility] UR[facility] [id number] 23:00:38 Test Item Value Reference Range Interpretation [...] = 1584) SOURCE(BEAKER) (test code = 2795) Seo Coordinator ID - [auto]Seo Coordinator ID - techRAD, CHEST, 1 VIEW, NON [id number] 22:26:00Reason for exam:->ABDOMINAL PAINShould this be performed at the bedside?->Yes[facility] MON[facility] RIVERALuisa SALAS : 1975 Sex: MFINAL REPORT Chest, 1 view. History: Abdominal pain Comparison: Plain radiographthe chest dated 01/06/2021. Findings: The cardiomediastinal silhouette and pulmonary vasculature are within normal limits for a portable exam. The lungs are clear without evidence of consolidation or effusion. The soft tissues and osseous structures are intact. IMPRESSION: No acute cardiopulmonary abnor mality. Signed: Sofiya Ding [facility] Verified Date/Time: 11/13/2021 22:26:25 RAD, ABDOMEN/KUB, 1 VIEW [id number] 22:25:00Reason for exam:- >ABDOMINAL PAINShould this be performed at the bedside?->Yes [facility] 1975 Sex: MFINAL REPORT CLINICAL HISTORY: [...] 11/13/2021 22:25:42 CBC W/PLT COUNT & AUTO [id number] 22:21:01 Test Item Value Reference Range Interpretation [...] 0-1 PERCENT (BEAKER) (test code = 2801) [id number] 06:27:23 Test Item Value Reference Range Interpretation Comments Phosphorus (test code = 3.2 mg/dL 2.3-4.7 2777-1) SHANA (test code = SHANA) Seo Coordinator ID Onofre TREJO M Lab Interpretation (test Normal code = 73494-7) [facility]2021-[facility]-28 06:27:23 Test Item Value Reference Range Interpretation Comments PHOSPHORUS (BEAKER) (test code = 3.2 mg/dL 2.3-4.7 604) Seo Coordinator ID - NEIL MBASIC METABOLIC [id number] 06:27:22 Test Item Value Reference Range Interpretation [...] S NOT APPLICABLE FOR DIALYSIS PATIEN TS. Seo Coordinator ID - NEIL [id number] 06:27:22 Test Item Value Reference Range Interpretation Comments MAGNESIUM (BEAKER) (test code = 1.7 mg/dL 1.6-2.6 627) Seo Coordinator ID - NEIL MRAD, ABDOMEN/KUB, 1 VIEW [id number] 12:37:00Reason for exam:->Admitted for DIOSShould this be performed at the bedside?->Yes [facility] : 1975 Sex: MFINAL [...] no free air is identified. Signed: Esperanza Duqueeport Verified Date/Time: 08/05/2021 12:37:21 Reading Location[facility] Reading Room Electronically signed by: ESPERANZA DUQUE MD on 2020 12:37 PMBASIC METABOLIC [id number] 12:20:42 Test Item Value Reference Range Interpretation [...] S NOT APPLICABLE FOR DIALYSIS PATIEN TS. Seo Coordinator ID - NEIL [id number] 08:22:00 Test Item Value Reference Range Interpretation Comments MAGNESIUM (BEAKER) (test code = 1.5 mg/dL 1.6-2.6 L 627) Seo Coordinator ID - NEIL [id number] 08:22:00 Test Item Value Reference Range Interpretation Comments PHOSPHORUS (BEAKER) (test code = 1.6 mg/dL 2.3-4.7 L 604) Seo Coordinator ID - NEIL MBASIC METABOLIC [id number] 11:56:45 Test Item Value Reference Range Interpretation [...] S NOT APPLICABLE FOR DIALYSIS PATIEN TS. Seo Coordinator ID - ANETA LOperator ID - ANETA [id number] 10:34:21 Test Item Value Reference Range Interpretation Comments PHOSPHORUS (BEAKER) (test code = 2.4 mg/dL 2.3-4.7 604) Seo Coordinator ID - ANETA [id number] 10:34:20 Test Item Value Reference Range Interpretation Comments MAGNESIUM (BEAKER) (test code = 1.6 mg/dL 1.6-2.6 627) Seo Coordinator ID - ANETA [id number] 11:42:47 Test Item Value Reference Range Interpretation Comments PHOSPHORUS (BEAKER) 2.8 mg/dL 2.3-4.7 Specimen slightly (test code = 604) hemolyzed Seo Coordinator ID - ANETA [id number] 05:42:53 Test Item Value Reference Range Interpretation Comments MAGNESIUM (BEAKER) 1.4 mg/dL 1.6-2.6 L Specimen slightly (test code = 627) hemolyzed Seo Coordinator ID - ANETA LBASIC METABOLIC [id number] 05:42:53 Test Item Value Reference Range Interpretation [...] S NOT APPLICABLE FOR DIALYSIS PATIEN TS. Seo Coordinator ID - PIAYA LSARS-COV2/RT-PCR ([facility])2021-08-02 00:15:55 Test Item Value Reference Range Interpretation Comments SARS-COV2/RT-PCR Negative Negative The SARS-Co V-2 target (test code = nucleic acids a re not 7202891) detected in thi s specimen. Negative result s do not preclude SARS-C oV-2 infection and s hould not be used as the júnior e basis for patient managem ent decisions. Nega tive results must be combine d with clinical observ ations, patient history , and epidemiological information. A false negativ e result may occur if a spec imen is improperly panchito ected, transported or handled. This SARS CoV-2 [...] sooner. Fact Sheet for Healthcare Providers: https://www.cepheid.co m/Documents/Xpert%20Xpress%20SARS%20CoV-2/Fact%20Sheets/302-8967%64RZRO-AAQ-7%20 HEALTHCARE%20PROVIDERS%20FACT%20SHEET.pdf Fact Sheet for Healthcare Patients: https://www.TYMR/Documents/Xpert%20Xp ress%20SARS%20CoV-2/Fact%20Sheets/3801%53EELD-MYS-7%20PATIENT%20FACT%20SHEET .pdfCT, [id number] 21:01:00Unlisted Reason for Exam - Click Yes and Enter Reason Below->NoWill this procedure require oral contrast?->No [facility] 1975 Sex: MFINAL [...] Diffuse peripancreatic fatty atrophy. Signed: Magno Carvajal MDReport Verified Date/Time: 08/01/2021 21:01:39 REHENSIVE METABOLIC [id number] 20:31:25 Test Item Value Reference Range Interpretation [...] S NOT APPLICABLE FOR DIALYSIS PATIEN TS. Seo Coordinator ID - DBOperator ID - NEIL [id number] 19:49:58 Test Item Value Reference Range Interpretation Comments LIPASE (BEAKER) (test code = 749) 4 U/L 8-78 L Seo Coordinator ID - DBCBC W/PLT COUNT & AUTO [id number] 19:24:16 Test Item Value Reference Range Interpretation [...] code = 2801) RAD, ABDOMEN/KUB, 1 VIEW [id number] 11:19:00Reason for exam:->Abdominal pain distentionAD[facility]Name: [facility] : 1975 Sex: MFINAL [...] Reagan Verified Date/Time: 04/15/2021 11:19:14 Reading Location: [address] Ortho Consult Reading Room BASIC METABOLIC [id number] 05:54:00 Test Item Value Reference Range Interpretation [...] S NOT APPLICABLE FOR DIALYSIS PATIEN TS. Seo Coordinator ID - CHAMP [id number] 05:53:00 Test Item Value Reference Range Interpretation Comments MAGNESIUM (BEAKER) (test code = 1.5 mg/dL 1.6-2.6 L 627) Seo Coordinator ID - CHAMP [id number] 05:53:00 Test Item Value Reference Range Interpretation Comments PHOSPHORUS (BEAKER) (test code = 2.3 mg/dL 2.3-4.7 604) Seo Coordinator ID - CHAMP WCBC W/PLT COUNT & AUTO [id number] 04:46:00 Test Item Value Reference Range Interpretation [...] 0-1 PERCENT (BEAKER) (test code = 2801) [id number] 05:08:00 Test Item Value Reference Range Interpretation Comments MAGNESIUM (BEAKER) (test code = 1.5 mg/dL 1.6-2.6 L 627) Seo Coordinator ID - NEIL [id number] 05:08:00 Test Item Value Reference Range Interpretation Comments PHOSPHORUS (BEAKER) (test code = 2.1 mg/dL 2.3-4.7 L 604) Seo Coordinator ID - NEIL MSARS-COV2/RT-PCR ([facility])2021-04-13 09:33:00 Test Item Value Reference Range Interpretation Comments SARS-COV2/RT-PCR (test Negative Not Detected, Negative, code = 2762147) See external report for linked test SARS-COV-2 PERFORMING LAB [facility] TERI (test code = 3646952) Negative result for this test determines that [...] of the Act.Fact Sheet for Healthcare Prov iders:https://www.bepretty.Foxtrot/sites/default/files/product/documents/Fact_Sheet_HC _Ypfylwioj_Dwed_NWRU-GzZ-4.pdfFact Sheet for Healthcare Patients:https://www.bepretty.Foxtrot/sites/default/files/product/docume nts/Bolj_Nlrot_Dawuzuvv_Ywzn_JFTZ-XoB-6.pdfPerforming Laboratory:[facility], [place] [address]UD, [id number] 00:22:00Unlisted Reason for Exam - Click Yes and Enter Reason Below->NoWill this procedure require oral contrast?->No [facility] : 1975 Sex: MFINAL [...] Non obstructing bilateral nephrolithiasis. Signed: Sofiya Ding MDReport Verified Date/Time: 04/13/2021 00:22:00 URINALYSIS W/ REFLEX URINE [id number] 00:21:00 Test Item Value Reference Range Interpretation [...] = 518) SOURCE(BEAKER) (test code = 2795) Seo Coordinator ID - [auto]Seo Coordinator ID - techHIGH SENSITIVITY TROPONIN [id number] 22:05:00 Test Item Value Reference Range Interpretation Comments HIGH SENSITIVITY 5 pg/ml See_Comment [Automated message] TROPONIN I (test code = The system which 4253175) generated this result transmitted ref erence range: <=35. Th e reference range was not used to interpr et this result as normal/abnormal . Seo Coordinator ID - DBThe WOOD ROUTER STAT High Sensitivity Troponin-I results should be used in conjunctionwith other diagnostic information such as ECG, clinical observations and information, and patient symptoms to aid in the diagnosis of [place].[id number] 21:59:00 Test Item Value Reference Range Interpretation Comments LIPASE (BEAKER) (test code = 749) < U/L 8-78 L Seo Coordinator ID - DBCOMPREHENSIVE METABOLIC [id number] 21:57:00 Test Item Value Reference Range Interpretation [...] S NOT APPLICABLE FOR DIALYSIS PATIEN TS. Seo Coordinator ID - DBLACTIC ACID, [id number] 21:42:00 Test Item Value Reference Range Interpretation Comments LACTATE BLOOD VENOUS (2) (BEAKER) 0.59 mmol/L 0.50-2.20 (test code = 2872) Seo Coordinator ID - DBBLOOD GAS, [id number] 21:31:00 Test Item Value Reference Range Interpretation [...] 1819) 21.0 CBC W/PLT COUNT & AUTO [id number] 21:31:00 Test Item Value Reference Range Interpretation [...] (BEAKER) (test code = 2801) CF RESPIRATORY [id number] 12:40:00 Test Item Value Reference Interpretation Comments [...] = 994) seen RAD, ABDOMEN/KUB, 1 VIEW [id number] 07:28:00Reason for exam:->constipation [facility]AW[facility] : 1975 Sex: MFINAL [...] Reagan Verified Date/Time: 02/24/2021 07:28:09 Reading Location: [facility] Room RAD, ABDOMEN/KUB, 1 VIEW [id number] 10:44:00Reason for exam:->abdominal pain, [facility] : 1975 Sex: MFINAL [...] MDReport Verified Date/Time: 02/21/2021 10:44:09 Reading Location: [facility] B1 C013V Neuro Reading Room SARS-COV2/RT-PCR ([facility])2021-02-20 12:43:00 Test Item Value Reference Range Interpretation Comments SARS-COV2/RT-PCR (test Negative Not Detected, Negative, code = 3583606) See external report for linked test SARS-COV-2 PERFORMING LAB [facility] TERI (test code = 4539263) Negative result for this test determines that [...] of the Act.Fact Sheet for Healthcare Prov iders:https://www.ANDA Networks/sites/default/files/product/documents/Fact_Sheet_HC _Syjnjsswv_Npmy_QNZT-UrS-5.pdfFact Sheet for Healthcare Patients:https://www.[employer] Networks/sites/default/files/product/docume nts/Krjm_Xsjqk_Pjihqxbp_Xbns_IPXV-KqX-4.pdfPerforming Laboratory:[facility] [place], [place] [address]MSXOF METABOLIC PANEL 2021-02-20 04:46:00 Test Item Value [...] S NOT APPLICABLE FOR DIALYSIS PATIEN TS. Seo Coordinator ID - EDASICBC W/PLT COUNT & AUTO [id number] 04:23:00 Test Item Value Reference Range Interpretation [...] PERCENT (BEAKER) (test code = 2801) CT, [id number] 21:22:00Unlisted Reason for Exam - Click Yes and Enter Reason Below->YesUnlisted Reason for Exam->abd pain, bloating, constipation. hx of SBOWill this procedure require oral contrast?->No [facility] MON[facility] R[facility]ALuisa SALAS : 1975 Sex: MFINAL REPORT EXAM: [...] Magno Carvajal MDReport Verified Date/Time: 02/19/2021 21:22:04 [id number] 18:22:00 Test Item Value Reference Range Interpretation Comments LIPASE (BEAKER) (test code = 749) < U/L 8-78 L Seo Coordinator ID - DBBASIC METABOLIC [id number] 18:21:00 Test Item Value Reference Range Interpretation [...] S NOT APPLICABLE FOR DIALYSIS PATIEN TS. Seo Coordinator ID - DBHEPATIC FUNCTION [id number] 18:21:00 Test Item Value Reference Range Interpretation [...] Specimen slightly (test code = 347) hemolyzed Seo Coordinator ID - DBLACTIC ACID, [id number] 18:05:00 Test Item Value Reference Range Interpretation Comments LACTATE BLOOD VENOUS 1.04 mmol/L 0.50-2.20 Specime n slightly (2) (BEAKER) (test hemolyzed code = 1040) Seo Coordinator ID - DBCBC W/PLT COUNT & AUTO [id number] 17:58:00 Test Item Value Reference Range Interpretation [...] code = 2801) RAD, ABDOMEN/KUB, 1 VIEW [id number] 17:30:00Reason for exam:->abd pain, bloated, hx of SBO [facility] : 1975 [...] Verified Date/Time: 02/19/2021 17:30:23 FUNGUS CULTURE + [id number] 17:04:00 Test Item Value Reference Range Interpretation Comments CULTURE (BEAKER) A <1+ Padilla albicans (test code = 1095) FUNGUS SMEAR No fungi seen (BEAKER) (test code = 1406) CF RESPIRATORY [id number] 10:47:00 Test Item Value Reference Range Interpretation [...] 3+ Normal respiratory maria del carmen presentSPIN/CONCENTRATION [id number] 07:59:00 Test Item Value Reference Range Interpretation Comments CONCENTRATION CHARGED (BEAKER) (test Done code = 2657) RAD, CHEST, 2 [id number] 14:47:00Reason for Exam:->Cystic Fibrosis [facility] : 1975 Sex: MFINAL REPORT EXAMINATION: RAD, [...] diaphragm. IMPRESSION: No acute thoracic abnormality. 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, Vitamin D deficiency [facility] : 1975 Sex: MFINAL [...] for bone mineral density as provided by bulldozer operator is 0.023 g/cm2 for lumbar spine and [...] MDReport Verified Date/Time: 01/06/2021 14:10:03 Reading Location: [facility] Reading Room [address] [place] [address] URINALYSIS W/ REFLEX URINE [id number] 11:26:00 Test Item Value Reference Range Interpretation [...] 1 /HPF 520) SOURCE(BEAKER) (test code = 5569) Seo Coordinator ID - [auto]Seo Coordinator ID - techRAD, ABDOMEN/KUB, 1 VIEW [id number] 10:40:00Reason for exam:->constipation [facility] : 1975 Sex: [...] Esperanza Duque Verified Date/Time: 10/28/2020 10:40:07 Reading Location[facility] Reading Room COMPREHENSIVE METABOLIC [id number] 12:47:00 Test Item Value Reference Range Interpretation [...] S NOT APPLICABLE FOR DIALYSIS PATIEN TS. Seo Coordinator HODA MERINO2021-01-18 07:34:00 Test Item Value Reference Range Interpretation Comments BLOOD UREA NITROGEN (BEAKER) (test 16 mg/dL 7-21 code = 354) Seo Coordinator HODA [id number] 07:34:00 Test Item Value Reference Range Interpretation Comments CREATININE (BEAKER) 1.08 mg/dL 0.57-1.25 (test code = 358) EGFR (BEAKER) (test 90 mL/min/1.73 ESTIMA JOANN GFR IS code = 1092) sq m NOT ACCURATE CREATININE CLEARANCE IN PREDICTING GLOMERULAR FILTRATION RATE . ESTIMATED GFR I S NOT APPLICABLE FOR DIALYSIS PATIEN TS. Seo Coordinator ID Onofre CORNELL LPOCT-GLUCOSE [id number] 13:03:00 Test Item Value Reference Range Interpretation Comments POC-GLUCOSE METER 93 mg/dL 70-110 : [facility] (BEAKER) (test code = JUSTINE CORTEZ [place], 1538) [address]: Seo Coordinator/Techni rian ID = [id number] for BJORN SANCHES [id number] 06:22:00 Test Item Value Reference Range Interpretation Comments BLOOD UREA NITROGEN (BEAKER) (test 20 mg/dL 7-21 code = 354) Seo Coordinator HODA [id number] 06:22:00 Test Item Value Reference Range Interpretation Comments CREATININE (DWAYNE) 1.12 mg/dL 0.57-1.25 (test code = 358) EGFR (DWAYNE) (test 86 mL/min/1.73 ESTIMA OJANN GFR IS code = 1092) sq m NOT ACCURATE CREATININE CLEARANCE IN PREDICTING GLOMERULAR FILTRATION RATE . ESTIMATED GFR I S NOT APPLICABLE FOR DIALYSIS PATIEN TS. Seo Coordinator ID - ANETA LHEMOGLOBIN [id number] 21:14:00 Test Item Value Reference Range Interpretation Comments HEMOGLOBIN A1C (DWAYNE) (test code = 5.6 % 4.3-6.1 368) FL, SMALL BOWEL [id number] 19:16:00Reason for exam:->Rule out ileus or small bowel stricture [facility] 1975 Sex: MFINAL REPORT FL, SMALL BOWEL ONLY CLINICAL HISTORY: Rule out ileus or small bowel stricture COMPARISON: Same day CT abdomen and pelvis. TECHNIQUE: A powerhouse engineer abdominal radiograph is acquired. The small bowel is evaluated with single contrast technique after oral ingestion of Gastrografin contrast using AP abdominal radiographs. Abdominal radiographs are acquired at 0, 20, 40, 60, and 90 minutes. FINDINGS: The powerhouse engineer radiograph demonstrates multiple dilated air- filled loops [...] Reagan Verified Date/Time: 10/25/2020 19:16:52 Reading Location: [facility] C013Y CT Body Reading Room Electronically signed by: Mikey ZUNIGA 10/25/2020 07:16 PMCT, [id number] 09:52:00Reason for exam:->abd pain, constipation, hx of obstuctionWhat is the patient's sedation requirement?->No [facility]ationCH[facility] VELIA RIVERAWAYNE : 1975 Sex: MFINAL [...] of infectious or inflammatory enteritis. Signed: Tristen Reagan Verified Date/Time: 10/25/2020 09:52:20 Reading Location: [place] [address] CT Body Reading Room [id number] 08:43:00 Test Item Value Reference Range Interpretation Comments LIPASE (BEAKER) (test code = 749) < U/L 8-78 L Seo Coordinator ID - NEIL MTROPONIN [id number] 08:32:00 Test Item Value Reference Range Interpretation [...] failure, acidosis, acute neurological disease, and persistent tachyarrhythmia.Seo Coordinator ID - NEIL MBASIC METABOLIC [id number] 08:24:00 Test Item Value Reference Range Interpretation [...] S NOT APPLICABLE FOR DIALYSIS PATIEN TS. Seo Coordinator ID - NEIL MCBC W/PLT COUNT & AUTO [id number] 08:03:00 Test Item Value Reference Range Interpretation [...] (BEAKER) (test code = 2801) BASIC METABOLIC [id number] 07:43:00 Test Item Value Reference Range Interpretation [...] S NOT APPLICABLE FOR DIALYSIS PATIEN TS. Seo Coordinator ID - [id number] 07:43:00 Test Item Value Reference Range Interpretation Comments MAGNESIUM (BEAKER) (test code = 1.7 mg/dL 1.6-2.6 627) Seo Coordinator ID - DBHEPATIC FUNCTION [id number] 07:43:00 Test Item Value Reference Range Interpretation [...] (test code = 13 U/L 6-55 347) Seo Coordinator ID - DBCBC W/PLT COUNT & AUTO [id number] 06:56:00 Test Item Value Reference Range Interpretation [...] PERCENT (BEAKER) (test code = 2801) SARS-COV2/INFLUENZA/RSV [id number] 02:52:00 Test Item Value Reference Range Interpretation Comments SARS-COV2/RT-PCR Negative Negative AA This is a c orrected (test code = result. Previou s result [id number]) was Positive on 2020 at 0123 INTERNET MARKETING ASSISTANT INFLUENZA A RT-PCR Negative Negative (test code = 3190360) INFLUENZA B RT-PCR Negative Negative (test code = 8849951) RSV RT-PCR (test Negative Negative Performance of the Xpert code = 4513782) Xpress SARS- CoV-2/Flu/RSV test has only b een established in nasopharyngeal swab specimens. Use of the Xpert Xpress SARS-CoV-2/Flu/ RSV test with other spec imen types has not been as sessed and performance characteristics are unknown. As wit h any molecular test, mutations within the targ eted genetic regions identified by Xpert Xpress SARS-CoV -2/Flu/RSV test could affe [...] sooner.Fact She et for Healthcare Prov iders: https://www.Tellyo.com/D ocuments/Xpert% 20Xpress%2 0OKXL-EdV-2-Flu -RSV/302-4 508%20Rev.%20B% 20HCP%20Fa ct%20Sheet.pdfF act Sheet for Healthcare Patients: https://www.Vinveliid.com/D ocuments/Xpert% 20Xpress%2 8GYOS-MiG-0-Flu -RSV/302-4 507%20Rev.%20B% 20Patient% 20Fact%20Sheet. pdf [id number] 22:49:00 Test Item Value Reference Range Interpretation Comments LIPASE (BEAKER) (test code = 749) < U/L 8-78 L Seo Coordinator ID - DBCOMPREHENSIVE METABOLIC [id number] 22:49:00 Test Item Value Reference Range Interpretation [...] S NOT APPLICABLE FOR DIALYSIS PATIEN TS. Seo Coordinator ID - DBCT, [id number] 22:32:00Reason for exam:->ABDOMINAL PAINWhat is the patient's sedation requirement?->No Sedation [facility] 1975 Sex: [...] code = 2801) URINALYSIS W/ REFLEX URINE [id number] 21:51:00 Test Item Value Reference Range Interpretation [...] = 518) SOURCE(BEAKER) (test code = 2795) Seo Coordinator ID - [auto]Seo Coordinator ID - [id number] 05:11:00 Test Item Value Reference Range Interpretation Comments APPEARANCE (test code = Clear Clear 0365641887) COLOR (test code = Yellow Yellow 8995195569) PH (test code = 4.8-8.0 2259894152) SP GRAVITY (test code = 1.003-1.030 5028733749) GLU U QUAL (test code = Normal Normal 9111697801) BLOOD (test code = Negative Negative 0200392389) KETONES (test code = Negative Negative 7878954981) PROTEIN (test code = Negative Negative 2887-8) UROBILIN (test code = Normal Normal 8712235066) BILIRUBIN (test code = Negative Negative 7558841855) NITRITE (test code = Negative Negative 7008791052) LEUK TERRI (test code = Negative Negative 6501578430) RBC/HPF (test code = See_Comment [Autom ated message] 5980240187) The system Bottle generated this result transmitted ref erence range: 0 - 3 HP F. The reference range was not used to int erpret this result as normal/abnormal . WBC/HPF (test code = See_Comment [Autom ated message] 5076085753) The system Bottle generated this result transmitted ref erence range: 0 - 5 HP F. The reference range was not used to int erpret this result as normal/abnormal . BACTERIA (test code = Few Negative A 9207456242) SQ EPITH (test code = <1 HPF 8263420916) Lab Interpretation (test Abnormal code = 74282-6) [facility] [id number] 03:54:00 Test Item Value Reference Range Interpretation Comments TROPONIN I (test <0.012 See_Comment [Automated code = 4481905958) message] The system which generated this result [...] ? Lab Interpretation Normal (test code = 98824-0) [facility] CenterLipase [id number] 03:44:00 Test Item Value Reference Range Interpretation Comments LIPASE (test code = 9455050424) <10 0-220 Lab Interpretation (test code = Normal 40675-1) [facility] Met[facility] (NA, K, CL, CO2, GLUCOSE, BUN, CREATININE, CA)2020-10-19 03:43:00 Test Item Value Reference Range Interpretation Comments NA (test code = 140 mmol/L 135-145 4888289698) K (test code = 4.0 mmol/L 3.5-5 4952462274) CL (test code = 100 mmol/L 98-108 5931836323) CO2 TOTAL (test code = 33 mmol/L 23-31 H 8960449720) AGAP (test code = 2-16 7001526054) BUN (test code = 5 mg/dL 7-23 L 0558473922) GLUCOSE (test code = 109 mg/dL 70-110 3155754363) CREATININE (test code = 1.17 mg/dL 0.6-1.25 1130994430) CALCIUM (test code = 9.5 mg/dL 8.6-10.6 3950619805) eGFR Calculation mL/min/1.73m2 (Non-) (test code = 0234765643) eGFR Calculation mL/min/1.73m2 () (test code = 5401922014) SHANA (test code = SHANA) Association of [...] tests). Lab Interpretation Abnormal (test code = 44654-8) [facility] Center[facility] Function Panel (ALB, T.PRO, BILI T, BU/BC, ALT, AST, ALK PHOS)2020-10-19 03:43:00 Test Item Value Reference Range Interpretation Comments TOTAL BILI (test code = 6706281467) 1.6 mg/dL 0.1-1.1 H BILI UNCON (test code = 7490876309) 1.6 mg/dL 0.1-1.1 H BILI CONJ (test code = 4684943717) 0.0 mg/dL 0-0.3 T PROTEIN (test code = 4802233606) 7.2 g/dL 6.3-8.2 ALBUMIN (test code = 1300298380) 4.3 g/dL 3.5-5 ALK PHOS (test code = 9404671331) 64 U/L 34-122 ALTv (test code = 1742-6) 17 U/L 5-50 AST(SGOT) (test code = 7563711550) 27 U/L 13-40 Lab Interpretation (test code = Abnormal 85770-9) [facility]2020-10-19 03:42:00 Test Item Value Reference Range Interpretation Comments SARS-CoV-2 Rapid ID NOW Not Detected Not Detected (test code = 13310-2) SHANA (test code = SHANA) ID NOW COVID-19 Assay is an isothermal nucleic acid amplification test intended for the qualitative detection of nucleic acid from SARS-CoV-2 viral RNA in nasopharyngeal ([employer]) specimens. It is used under Emergency Use [...] indicated. Lab Interpretation Normal (test code = 15123-2) [facility] with [id number] 03:28:00 Test Item Value Reference Range Interpretation Comments WBC (test code = See_Comment [Automated 9490-2) message] The sy stem which generated this result transmitted reference range : 4.20 - 10.70 10*3/?L. The reference range was not used to interpret this result as normal/abnormal . RBC (test code = See_Comment L [Automated 789-8) message] The sy stem which generated this [...] RDW-SD (test code = 44.1 fL 38.5-51.6 86218-7) RDW-CV (test code = 12.9 % 12.1-15.4 788-0) PLT (test code = See_Comment [Automated 777-3) message] The sy stem which generated this result transmitted reference range : 150 - 328 10*3/ ?L. The reference r taurus was not used to interpret this result as normal/abnormal . MPV (test code = 11.8 fL 9.8-13 07366-9) NRBC/100 WBC (test See_Comment [Automat ed code = 7117885657) message] The system which generated this result transmitted reference range : 0.0 - 10.0 /100 WBCs. The refer ence range was not u sed to interpret th is result as normal/abnormal . NRBC x10^3 (test code <0.01 See_Comment [Auto mated = 9353113802) message] The s [employer] which generated this result transmitted reference range : 10*3/?L. The reference range was not used to interpret this result as normal/abnormal . GRAN MAT (NEUT) % 54.1 % (test code = 770-8) IMM GRAN % (test code 0.20 % = 0375912054) LYMPH % (test code = 30.0 % 736-9) MONO % (test code = 11.6 % 5905-5) EOS % (test code = 3.6 % 713-8) BASO % (test code = 0.5 % 706-2) GRAN MAT x10^3(ANC) 3.28 10*3/uL 1.99-6.95 (test code = 2756155491) IMM GRAN x10^3 (test <0.03 0-0.06 code = 1317127432) LYMPH x10^3 (test code 1.82 10*3/uL 1.09-3.23 = 731-0) MONO x10^3 (test code 0.70 10*3/uL 0.36-1.02 = 742-7) EOS x10^3 (test code = 0.22 10*3/uL 0.06-0.53 711-2) BASO x10^3 (test code 0.03 10*3/uL 0.01-0.09 = 704-7) Lab Interpretation Abnormal (test code = 50622-1) [facility] [id number] 05:05:00 Test Item Value Reference Range Interpretation [...] S NOT APPLICABLE FOR DIALYSIS PATIEN TS. Seo Coordinator ID - [id number] 05:05:00 Test Item Value Reference Range Interpretation Comments MAGNESIUM (BEAKER) (test code = 1.6 mg/dL 1.6-2.6 627) Seo Coordinator ID - ALY, ABDOMEN/KUB, 1 VIEW [id number] 15:41:00Reason for exam:->abdominal pain [facility] 1975 Sex: MFINAL REPORT RAD, ABDOMEN/KUB, 1 VIEW AP CLINICAL INDICATION: abdominal pain COMPARISON: June 08, 2020 TECHNIQUE: Single, frontal radiograph of the abdomen. IMPRESSION: The bowel gas pattern dilated loops of small and large bowel. Appearance favors ileus. No visible pneumatosis. The regional skeleton is intact. Signed: JR Bukr Robert MDReport Verified Date/Time: 10/17/2020 15:41:19 Reading Location[facility] Reading Room BASI METABOLIC PANEL [...] S NOT APPLICABLE FOR DIALYSIS PATIEN TS. Seo Coordinator ID - PIAYA [id number] 07:22:00 Test Item Value Reference Range Interpretation Comments MAGNESIUM (BEAKER) (test code = 2.0 mg/dL 1.6-2.6 627) Seo Coordinator ID - PIAYA LCBC W/PLT COUNT & AUTO [id number] 06:22:00 Test Item Value Reference Range Interpretation [...] (BEAKER) (test code = 2801) BASIC METABOLIC [id number] 05:42:00 Test Item Value Reference Range Interpretation [...] S NOT APPLICABLE FOR DIALYSIS PATIEN TS. Seo Coordinator ID - NEIL [id number] 05:42:00 Test Item Value Reference Range Interpretation Comments MAGNESIUM (BEAKER) (test code = 1.4 mg/dL 1.6-2.6 L 627) Seo Coordinator ID - NEIL MCBC W/PLT COUNT & AUTO [id number] 04:47:00 Test Item Value Reference Range Interpretation [...] PERCENT (BEAKER) (test code = 2801) SARS-COV2/RT-PCR ([facility])2020-10-15 13:08:00 Test Item Value Reference Range Interpretation Comments SARS-COV2/RT-PCR (test Negative Not Detected, Negative, code = 3325592) See external report for linked test SARS-COV-2 PERFORMING LAB [facility] (test code = 9389081) Negative result for this test determines that [...] of the Act.Fact Sheet for Healthcare Prov iders:https://www.[employer]/sites/default/files/product/documents/Fact_Sheet_HC _Ygsuutoeg_Fphj_GVEB-KzQ-9.pdfFact Sheet for Healthcare Patients:https://www.[employer]/sites/default/files/product/docume nts/Mkip_Qplkj_Papndtne_Dfux_VYDL-VxS-4.pdfPerforming Laboratory:[facility], [place] [address]IP, [id number] 03:01:00Reason for exam:->ABDOMINAL PAINWhat is the patient's sedation requirement?->No Sedation [facility] : 1975 Sex: MFINAL [...] bilateral nephrolithiasis.Fatty atrophy pancreas. Signed: Sofiya Ding [facility] Verified Date/Time: 10/15/2020 03:01:22 [id number] 02:35:00 Test Item Value Reference Range Interpretation Comments LIPASE (BEAKER) (test code = 749) < U/L 8-78 L Seo Coordinator ID - PIAYA LOperator ID - PIAYA LOperator ID - ADMINCOMPREHENSIVE METABOLIC [id number] 01:16:00 Test Item Value Reference Range Interpretation [...] S NOT APPLICABLE FOR DIALYSIS PATIEN TS. Seo Coordinator ID - PIAYA LCBC W/PLT COUNT & AUTO [id number] 00:41:00 Test Item Value Reference Range Interpretation [...] (BEAKER) (test code = 2801) BASIC METABOLIC [id number] 07:08:00 Test Item Value Reference Range Interpretation [...] S NOT APPLICABLE FOR DIALYSIS PATIEN TS. Seo Coordinator ID - NTPCBC W/PLT COUNT & AUTO [id number] 06:29:00 Test Item Value Reference Range Interpretation [...] (BEAKER) (test code = 2801) BASIC METABOLIC [id number] 06:39:00 Test Item Value Reference Range Interpretation [...] S NOT APPLICABLE FOR DIALYSIS PATIEN TS. Seo Coordinator ID - EDASISpecimen slightly ictericCBC W/PLT COUNT & AUTO [id number] 06:08:00 Test Item Value Reference Range Interpretation [...] (BEAKER) (test code = 2801) BASIC METABOLIC [id number] 06:45:00 Test Item Value Reference Range Interpretation [...] S NOT APPLICABLE FOR DIALYSIS PATIEN TS. Seo Coordinator ID - PIAYA LSpecimen slightly ictericCBC W/PLT COUNT & AUTO [id number] 06:28:00 Test Item Value Reference Range Interpretation [...] (BEAKER) (test code = 2801) LACTIC ACID, [id number] 06:25:00 Test Item Value Reference Range Interpretation Comments LACTATE BLOOD VENOUS (2) (BEAKER) 0.80 mmol/L 0.50-2.20 (test code = 2872) Seo Coordinator ID - ANETA LSpecimen slightly ictericLACTIC ACID, [id number] 00:07:00 Test Item Value Reference Range Interpretation Comments LACTATE BLOOD VENOUS (2) (BEAKER) 0.77 mmol/L 0.50-2.20 (test code = 2872) Seo Coordinator ID - ANETA LLACTIC ACID, [id number] 18:08:00 Test Item Value Reference Range Interpretation Comments LACTATE BLOOD VENOUS (2) (BEAKER) 1.35 mmol/L 0.50-2.20 (test code = 2872) Seo Coordinator ID - CARLITOFL, UGI, WITH SMALL [id number] 11:59:00Upper GI with small bowel follow throughReason [...] a prominent sigmoid colon. Signed: Emmanuel Murrell Verified Date/Time: 06/08/2020 11:59:48 Reading Location: [address] Body Reading Room RAD, ABDOMEN/KUB, 1 VIEW [id number] 09:30:00Reason for exam:->NGT, SBOFINAL REPORT TECHNIQUE: Single [...] in the right abdomen. Signed: Emmanuel Murrell Verified Date/Time: 06/08/2020 09:30:43 Reading Location: [facility] C013Y CT Body Reading Room PROTHROMBIN TIME/[id number] 04:30:00 Test Item Value Reference Range Interpretation [...] is 2.5-3.5 for patients wiht mechanical heart valves.[id number] 04:09:00 Test Item Value Reference Range Interpretation Comments MAGNESIUM (BEAKER) (test code = 1.6 mg/dL 1.6-2.6 627) Seo Coordinator ID - PIAYA LBASIC METABOLIC [id number] 04:09:00 Test Item Value Reference Range Interpretation [...] S NOT APPLICABLE FOR DIALYSIS PATIEN TS. Seo Coordinator ID - PIAYA LURINALYSIS W/ REFLEX URINE [id number] 03:52:00 Test Item Value Reference Range Interpretation [...] /LPF 514) SOURCE(BEAKER) (test code = 2795) Seo Coordinator ID - [auto]Seo Coordinator ID - techLACTIC ACID, [id number] 03:31:00 Test Item Value Reference Range Interpretation Comments LACTATE BLOOD VENOUS (2) (BEAKER) 0.52 mmol/L 0.50-2.20 (test code = 2872) Seo Coordinator ID - ANETA LCT, [id number] 00:01:00Unlisted Reason for Exam - Click Yes [...] approximately 11:52 PM 06/07/2020. Signed: Magno Carvajal [facility] Verified Date/Time: 06/08/2020 00:01:48 SARS-COV2/RT-PCR ([facility]) 2020-06-07 22:51:00 Test Item Value Reference Range Interpretation Comments SARS-COV2/RT-PCR (test code Negative Not Detected, Negative, = 0332301) See external report for linked test SARS-COV-2 PERFORMING LAB [facility] (test code = 4314118) Negative results do not preclude SARS-CoV-2 infection [...] of the Act.Fact Sheet for Healthcare Pro viders:https://www.TYMR/Documents/Xpert%20Xpress%20SARS%20CoV-2/Fact%20Sh eets/302-3802%01PQKY-REQ-7%20HEALTHCARE%20PROVIDERS%20FACT%20SHEET.pdfFact Sheet for Healthcare Patients:https://www.[employer]/Documents/Xpert%20Xpress%20SARS%20CoV-2/Fact%20Sheets/302-3801%20SARS-COV -2%20PATIENT%20FACT%20SHEET.pdfPerforming Laboratory:[facility] [place], [place] [id number] 20:56:00 Test Item Value Reference Range Interpretation Comments LIPASE (BEAKER) (test code = 749) < U/L 8-78 L Seo Coordinator ID - DBBASIC METABOLIC [id number] 20:52:00 Test Item Value Reference Range Interpretation [...] S NOT APPLICABLE FOR DIALYSIS PATIEN TS. Seo Coordinator ID - DBHEPATIC FUNCTION [id number] 20:52:00 Test Item Value Reference Range Interpretation [...] Specimen markedly (test code = 347) hemolyzed Seo Coordinator ID - DBCBC W/PLT COUNT & AUTO [id number] 20:33:00 Test Item Value Reference Range Interpretation [...] code = 2801) RAD, ABDOMEN/KUB, 1 VIEW [id number] 20:11:00Reason for exam:->ABDOMINAL PAINReason for exam:->history of [...] obtained as clinically warranted. Signed: Magno Carvajal MDReport Verified Date/Time: 06/07/2020 20:11:37 RAD, ABDOMEN/KUB, 1 VIEW [id number] 15:31:00Reason for exam:->assess stool burdenFINAL REPORT CLINICAL [...] excluded on the supine view. Signed: Murray Longo MDRrigobertoort Verified Date/Time: 05/09/2020 15:31:54 Reading Location: [facility] Radiology Reading Room CBC W/PLT COUNT & AUTO [id number] 06:57:00 Test Item Value Reference Range Interpretation [...] 0-1 PERCENT (BEAKER) (test code = 2801) [id number] 06:46:00 Test Item Value Reference Range Interpretation Comments MAGNESIUM (BEAKER) 1.5 mg/dL 1.6-2.6 L Specimen slightly (test code = 627) hemolyzed Seo Coordinator ID - [id number] 06:46:00 Test Item Value Reference Range Interpretation Comments PHOSPHORUS (BEAKER) 2.9 mg/dL 2.3-4.7 Specimen slightly (test code = 604) hemolyzed Seo Coordinator ID - EDASIBASIC METABOLIC [id number] 06:46:00 Test Item Value Reference Range Interpretation [...] S NOT APPLICABLE FOR DIALYSIS PATIEN TS. Seo Coordinator ID - EDASIHEPATIC FUNCTION [id number] 06:46:00 Test Item Value Reference Range Interpretation [...] Specimen slightly (test code = 347) hemolyzed Seo Coordinator ID - [id number] 10:38:00 Test Item Value Reference Range Interpretation Comments MAGNESIUM (BEAKER) 1.9 mg/dL 1.6-2.6 Specimen slightly (test code = 627) hemolyzed Seo Coordinator ID - [id number] 10:38:00 Test Item Value Reference Range Interpretation Comments PHOSPHORUS (BEAKER) 2.5 mg/dL 2.3-4.7 Specimen slightly (test code = 604) hemolyzed Seo Coordinator ID - NTPBASIC METABOLIC [id number] 10:38:00 Test Item Value Reference Range Interpretation [...] S NOT APPLICABLE FOR DIALYSIS PATIEN TS. Seo Coordinator ID - NTPHEPATIC FUNCTION [id number] 10:38:00 Test Item Value Reference Range Interpretation [...] Specimen slightly (test code = 347) hemolyzed Seo Coordinator ID - NTPCBC W/PLT COUNT & AUTO [id number] 10:33:00 Test Item Value Reference Range Interpretation [...] PERCENT (BEAKER) (test code = 2801) SARS-COV2/RT-PCR ([facility])2020-05-07 11:54:00 Test Item Value Reference Range Interpretation Comments SARS-COV2/RT-PCR (test Negative Not Detected, Negative, code = 9099386) See external report for linked test SARS-COV-2 [facility] (test code = 9735216) Negative result for this test determines that [...] of the Act.Fact Sheet for Healthcare Prov iders:https://www.[employer]/sites/default/files/product/documents/Fact_Sheet_HC _Qkjwlhvqx_Dcfy_IPGH-IaK-5.pdfFact Sheet for Healthcare Patients:https://www.[employer]/sites/default/files/product/docume nts/Hbpc_Slodr_Uidkdhot_Hwgj_KNOV-AiV-0.pdfPerforming Laboratory:[facility], [place] [id number] 10:19:00 Test Item Value Reference Range Interpretation Comments MAGNESIUM (BEAKER) (test code = 1.3 mg/dL 1.6-2.6 L 627) Seo Coordinator ID - PIAYA LBASIC METABOLIC [id number] 10:19:00 Test Item Value Reference Range Interpretation [...] S NOT APPLICABLE FOR DIALYSIS PATIEN TS. Seo Coordinator ID - PIAYA LHEPATIC FUNCTION [id number] 10:19:00 Test Item Value Reference Range Interpretation [...] (test code = 13 U/L 6-55 347) Seo Coordinator HODA - ANETA LCBC W/PLT COUNT & AUTO [id number] 10:00:00 Test Item Value Reference Range Interpretation [...] PERCENT (BEAKER) (test code = 2801) CT, [id number] 02:02:00FINAL REPORT TECHNIQUE: CT of the abdomen [...] CARMELO MOSLEY MD on 05/07/2020 02:02 AMURINALYSIS [id number] 01:08:00 Test Item Value Reference Range Interpretation Comments RBC UA (BEAKER) (test code = 519) < /HPF WBC UA (BEAKER) (test code = 520) 3 /HPF BACTERIA (BEAKER) (test code = Rare 517) MUCUS (BEAKER) (test code = 1574) Occasional SQUAMOUS EPITHELIAL (BEAKER) (test < /HPF code = 516) HYALINE CASTS (BEAKER) (test code 1 /LPF = 514) Seo Coordinator ID - techU/S, ABDOMINAL, [id number] 00:44:00Abdomen limited area? Add comment if clarification [...] Date/Time: 05/07/2020 00:44:38 URINALYSIS WITH MICROSCOPIC IF [id number] 00:38:00 Test Item Value Reference Range Interpretation [...] = 463) SOURCE(BEAKER) (test code = 2795) Seo Coordinator ID - [auto]Seo Coordinator ID - [id number] 00:23:00 Test Item Value Reference Range Interpretation Comments LIPASE (BEAKER) (test code = 749) < U/L 8-78 L Seo Coordinator ID - SANGITAAYA LBASIC METABOLIC [id number] 00:20:00 Test Item Value Reference Range Interpretation [...] S NOT APPLICABLE FOR DIALYSIS PATIEN TS. Seo Coordinator ID - ANETA LHEPATIC FUNCTION [id number] 00:20:00 Test Item Value Reference Range Interpretation [...] (test code = 20 U/L 6-55 347) Seo Coordinator ID - ANETA LLACTIC ACID, [id number] 23:58:00 Test Item Value Reference Range Interpretation Comments LACTATE BLOOD VENOUS 1.45 mmol/L 0.50-2.20 Specime n slightly (2) (BEAKER) (test hemolyzed code = 3080) Seo Coordinator ID - ANETA LCBC W/PLT COUNT & AUTO [id number] 23:46:00 Test Item Value Reference Range Interpretation [...] (BEAKER) (test code = 2801) CF RESPIRATORY [id number] 16:25:00 Test Item Value Reference Range Interpretation [...] 3+ Normal respiratory maria del carmen presentCT, [id number] 10:37:00FINAL REPORT ABDOMINAL AND PELVIS CT DATED [...] MDReport Verified Date/Time: 04/17/2020 10:37:08 Reading Location: [facility] C013Y CT Body Reading Room URINALYSIS W/ REFLEX URINE [id number] 09:19:00 Test Item Value Reference Range Interpretation [...] /LPF 514) SOURCE(BEAKER) (test code = 2795) Seo Coordinator ID - [auto]Seo Coordinator ID - [id number] 09:14:00 Test Item Value Reference Range Interpretation Comments LIPASE (BEAKER) (test code = 749) < U/L 8-78 L Seo Coordinator ID - GALAPBASIC METABOLIC [id number] 08:36:00 Test Item Value Reference Range Interpretation [...] S NOT APPLICABLE FOR DIALYSIS PATIEN TS. Seo Coordinator ID - GALAPHEPATIC FUNCTION [id number] 08:36:00 Test Item Value Reference Range Interpretation [...] (test code = 32 U/L 6-55 347) Seo Coordinator ID - GALAPCBC W/PLT COUNT & AUTO [id number] 08:26:00 Test Item Value Reference Range Interpretation [...] (BEAKER) (test code = 2801) CF RESPIRATORY [id number] 12:01:00 Test Item Value Reference Interpretation Comments [...] 4+ Normal respiratory maria del carmen presentPOCT-GLUCOSE [id number] 10:24:00 Test Item Value Reference Range Interpretation Comments POC-GLUCOSE METER 101 mg/dL 70-110 : TESTED A T [facility] [address] (BEAKER) (test code = [facility], 1538) [address]: Seo Coordinator/Techni rian ID = [id number] for CA STROLILA [id number] 05:45:00 Test Item Value Reference Range Interpretation Comments MAGNESIUM (BEAKER) (test code = 1.4 mg/dL 1.6-2.6 L 627) Seo Coordinator ID - LABASIC METABOLIC [id number] 05:45:00 Test Item Value Reference Range Interpretation [...] S NOT APPLICABLE FOR DIALYSIS PATIEN TS. Seo Coordinator ID - LABASIC METABOLIC [id number] 13:57:00 Test Item Value Reference Range Interpretation [...] S NOT APPLICABLE FOR DIALYSIS PATIEN TS. Seo Coordinator ID - NEIL MRAD, ABDOMEN/KUB, 1 VIEW [id number] 09:29:00Reason for exam:->LIONEL, eval stool burdenFINAL REPORT [...] excluded on the supine view. Signed: Murray Longo MDReport Verified Date/Time: 10/22/2019 09:29:36 Reading Location: [facility] Rad[facility] Reading Room [id number] 07:28:00 Test Item Value Reference Range Interpretation Comments MAGNESIUM (BEAKER) 1.4 mg/dL 1.6-2.6 L Specimen moderately (test code = 627) hemolyzed Seo Coordinator ID - [id number] 03:32:00 Test Item Value Reference Range Interpretation Comments MAGNESIUM (BEAKER) (test code = 1.4 mg/dL 1.6-2.6 L 627) Seo Coordinator ID - NEIL MBASIC METABOLIC [id number] 03:32:00 Test Item Value Reference Range Interpretation [...] S NOT APPLICABLE FOR DIALYSIS PATIEN TS. Seo Coordinator ID - NEIL [id number] 05:11:00 Test Item Value Reference Range Interpretation Comments MAGNESIUM (BEAKER) (test code = 1.7 mg/dL 1.6-2.6 627) Seo Coordinator ID - NEIL MBASIC METABOLIC [id number] 05:11:00 Test Item Value Reference Range Interpretation [...] S NOT APPLICABLE FOR DIALYSIS PATIEN TS. Seo Coordinator ID - NEIL MRAD, ABDOMEN/KUB, 1 VIEW [id number] 05:46:00Reason for exam:->ABDOMINAL PAINFINAL REPORT TECHNIQUE: Single [...] MDReport Verified Date/Time: 10/19/2019 05:46:42 BASIC METABOLIC [id number] 05:42:00 Test Item Value Reference Range Interpretation [...] S NOT APPLICABLE FOR DIALYSIS PATIEN TS. Seo Coordinator ID - NEIL [id number] 05:29:00 Test Item Value Reference Range Interpretation Comments PHOSPHORUS (BEAKER) (test code = 2.4 mg/dL 2.3-4.7 604) Seo Coordinator ID - NEIL [id number] 05:29:00 Test Item Value Reference Range Interpretation Comments MAGNESIUM (BEAKER) (test code = 1.5 mg/dL 1.6-2.6 L 627) Seo Coordinator ID - NEIL MCT, [id number] 04:01:00Reason for exam:->distal intestinal obstructionWhat is the patient's sedation requirement?->NoSedation FINAL REPORT TECHNIQUE: CT of the abdomen and pelvis WITH intravenous contrastand WITH oral contrast. Dose modulation, iterative reconstruction, and/or weight-based adjustment ofthe mA/kV was utilized to reduce the radiation dose to as low as reasonably achievable. INDICATION: A bdominal pain. COMPARISON: None. FINDINGS: LOWER THORAX: Unchanged [...] No lymphadenopathy.VESSELS: Unremarkable. GI TRACT: Stomach is unremarkable. Oral contrast reaches the distal small bowel. There are several loops of distended small bowel interspersed with decompressed small bowel. There is markedly distended bowel in the right lower quadrantup to 7.0 cm. Anastomotic suture material is present at the ascending colon, as before. Large amountof retained fecal matter throughout the colon is similar to priors. No evidence of ischemia or pneumatosis BONES AND SOFT TISSUES: Unremarkable. IMPRESSION:1. Multiple loops of markedly distended smallbowel interspersed with decompressed small bowel and marked retained colonic fecal matter similar toprior imaging. 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 Seo Coordinator ID - NEIL MCBC W/PLT COUNT & AUTO [id number] 01:44:00 Test Item Value Reference Range Interpretation [...] (test code = 2801) AFB CULTURE + [id number] 12:10:00 Test Item Value Reference Range Interpretation Comments CULTURE (BEAKER) (test No acid-fast bacilli code = 1095) isolated in 42 days AFB SMEAR (BEAKER) No acid fast bacilli (test code = 994) seen FUNGUS CULTURE + [id number] 18:48:00 Test Item Value Reference Range Interpretation Comments CULTURE (BEAKER) A <1+ Padilla (test code = 1095) parapsilo sis FUNGUS SMEAR No fungi seen (BEAKER) (test code = 1406) CF RESPIRATORY [id number] 08:04:00 Test Item Value Reference Range Interpretation [...] 3+ Normal respiratory maria del carmen presentSPIN/CONCENTRATION [id number] 01:05:00 Test Item Value Reference Range Interpretation Comments CONCENTRATION CHARGED (BEAKER) (test Done code = 2657) CREATININE, RANDOM [id number] 01:17:00 Test Item Value Reference Range Interpretation Comments CREATININE URINE (BEAKER) (test 105.9 mg/dL code = 375) Reference Range: No NormalsSODIUM, RANDOM [id number] 01:17:00 Test Item Value Reference Range Interpretation Comments SODIUM URINE (BEAKER) (test code = 235 meq/L 243) Reference Range: No NormalsBASIC METABOLIC [id number] 14:52:00 Test Item Value Reference Range Interpretation [...] PATIEN TS. CBC W/PLT COUNT & AUTO [id number] 06:59:00 Test Item Value Reference Range Interpretation [...] (BEAKER) (test code = 2801) BASIC METABOLIC [id number] 07:05:00 Test Item Value Reference Range Interpretation [...] PATIEN TS. CBC W/PLT COUNT & AUTO [id number] 06:46:00 Test Item Value Reference Range Interpretation [...] PERCENT (BEAKER) (test code = 2801) TROPONIN [id number] 19:25:00 Test Item Value Reference Range Interpretation [...] acute neurological disease, and persistent tachyarrhythmia.BASIC METABOLIC [id number] 07:10:00 Test Item Value Reference Range Interpretation [...] PATIEN TS. CBC W/PLT COUNT & AUTO [id number] 06:55:00 Test Item Value Reference Range Interpretation [...] (BEAKER) (test code = 2801) BASIC METABOLIC [id number] 03:46:00 Test Item Value Reference Range Interpretation [...] PATIEN TS. CBC W/PLT COUNT & AUTO [id number] 03:42:00 Test Item Value Reference Range Interpretation [...] PERCENT (BEAKER) (test code = 2801) POCT-GLUCOSE [id number] 06:12:00 Test Item Value Reference Range Interpretation Comments POC-GLUCOSE METER 81 mg/dL 70-110 TESTED AT [facility] [address] (BEAKER) (test code = [place] [address] 1538) BASIC METABOLIC [id number] 05:38:00 Test Item Value Reference Range Interpretation [...] PATIEN TS. CBC W/PLT COUNT & AUTO [id number] 04:55:00 Test Item Value Reference Range Interpretation [...] PERCENT (BEAKER) (test code = 2801) POCT-GLUCOSE [id number] 00:40:00 Test Item Value Reference Range Interpretation Comments POC-GLUCOSE METER 106 mg/dL 70-110 TESTED AT [place] [address] ([facility]) (test code = [facility] 1538) [address] POCT-GLUCOSE [id number] 18:46:00 Test Item Value Reference Range Interpretation Comments POC-GLUCOSE METER 102 mg/dL 70-110 TESTED AT [place] [id number] ([facility]) (test code = [facility] 1538) [address] [place], [place] [id number] 18:00:00Reason for exam:->resolution of ileus FINAL REPORT [...] Waters Verified Date/Time: 06/04/2019 18:00:59 Reading Location: [facility] C0[facility] Ortho Consult Reading Room POCT-GLUCOSE [id number] 12:42:00 Test Item Value Reference Range Interpretation Comments POC-GLUCOSE METER 88 mg/dL 70-110 TESTED AT [place] [address] ([facility]) (test code = [place] [address] 1538) RAD, ABDOMEN/KUB, 1 VIEW [id number] 10:33:00Reason for exam:->distentioin FINAL REPORT RAD, ABDOMEN/KUB, [...] Findings are concerning for ileus. Signed: Esperanza DuqueortVerified Date/Time: 06/04/2019 10:33:04 Reading Location: [facility] Reading Room POCT-GLUCOSE [id number] 07:13:00 Test Item Value Reference Range Interpretation Comments POC-GLUCOSE METER 76 mg/dL 70-110 TESTED AT [facility] 6720 (BEAKER) (test code = [place] [address] 1538) BASIC METABOLIC [id number] 07:03:00 Test Item Value Reference Range Interpretation [...] PATIEN TS. CBC W/PLT COUNT & AUTO [id number] 06:56:00 Test Item Value Reference Range Interpretation [...] PERCENT (BEAKER) (test code = 2801) POCT-GLUCOSE [id number] 05:03:00 Test Item Value Reference Range Interpretation Comments POC-GLUCOSE METER 90 mg/dL 70-110 TESTED AT [facility] 6720 (BEAKER) (test code = [place] [facility] [address] 1538) [id number] 12:47:00 Test Item Value Reference Range Interpretation Comments MAGNESIUM (BEAKER) (test code = 1.8 mg/dL 1.6-2.6 627) BASIC METABOLIC [id number] 12:47:00 Test Item Value Reference Range Interpretation [...] PATIEN TS. CBC W/PLT COUNT & AUTO [id number] 12:20:00 Test Item Value Reference Range Interpretation [...] PERCENT (BEAKER) (test code = 2801) CT, [id number] 16:06:00Please give water soluble rectal contrast (gastrograffin)FINAL [...] early distal small bowel obstruction. Signed: Carmelo Tierneyeport Verified Date/Time: 06/02/2019 16:06:39 Reading Location: [facility] B1 C013X Ortho Consult Reading Room GLOBIN [id number] 14:49:00 Test Item Value Reference Range Interpretation Comments HEMOGLOBIN A1C (BEAKER) (test code = 6.4 % 4.3-6.1 H 368) [id number] 10:13:00 Test Item Value Reference Range Interpretation Comments PHOSPHORUS (BEAKER) (test code = 2.7 mg/dL 2.3-4.7 604) [id number] 10:13:00 Test Item Value Reference Range Interpretation Comments MAGNESIUM (BEAKER) (test code = 1.8 mg/dL 1.6-2.6 627) BASIC METABOLIC [id number] 10:13:00 Test Item Value Reference Range Interpretation [...] APPLICABLE FOR DIALYSIS PATIEN TS. HEPATIC FUNCTION [id number] 10:13:00 Test Item Value Reference Range Interpretation [...] 6-55 347) CBC W/PLT COUNT & AUTO [id number] 10:01:00 Test Item Value Reference Range Interpretation [...] PERCENT (BEAKER) (test code = 2801) CT, [id number] 04:53:00FINAL REPORT CT, ABDOMEN \\T\\ PELVIS, WITH [...] unremarkable. The duodenum is somewhat distended and fluid- filled particularly the second portion.Small and large intestine: Postsurgical changes of the large bowel are again identified. Again seen is a large stool burden throughout the large bowel without abnormal large bowel wall thickening. Surgical chain sutures in the cecum. Multiple alternating distended and nondistended loops of small bowel seen within the abdomen similar in appearance [...] nephrolithiasis. Signed: Sofiya Ding MDReport Verified Date/Time: 0 06/02/2019 04:53:48 BASIC METABOLIC [id number] 02:20:00 Test Item Value Reference Range Interpretation [...] TS. RAD, ABDOMEN SERIES W/ UPRIGHT PA [id number] 01:44:00Reason for exam:- >ABDOMINAL PAINFINAL REPORT RAD, [...] 06/01/2019 01:44:40 CBC W/PLT COUNT & AUTO [id number] 00:59:00 Test Item Value Reference Range Interpretation [...] (BEAKER) (test code = 2801) RESPIRATORY PANEL [id number] 16:44:00 Test Item Value Reference Range Interpretation Comments HUMAN METAPNEUMOVIRUS Not detected Not detected, (BEAKER) (test code = 8203) Equivocal RHINOVIRUS (BEAKER) (test Not detected Not detected, code = 2684) Equivocal INFLUENZA A (BEAKER) (test Not detected Not detected, code = 6835) Equivocal INFLUENZA A (NO SUBTYPE) Not detected, (test code = 6156) Equivocal INFLUENZA A SUBTYPE H1 Not detected, (BEAKER) (test code = 8396) Equivocal INFLUENZA A SUBTYPE H3 Not detected, (BEAKER) (test code = 0957) Equivocal INFLUENZA A SUBTYPE H1-2009 Not detected, (BEAKER) (test code = 7088) Equivocal INFLUENZA B (BEAKER) (test Not detected [...] detected Not detected, (BEAKER) (test code = 5620) Equivocal ADENOVIRUS (BEAKER) (test Not detected Not [...] decisions. This sample was tested at the [facility] Molecular Diagnostics Laboratory using the [employer] FilmArray Respiratory Panel. It is FDA cleared and has been verified and approved by the [facility] for clinical use on nasopharyngeal swab specimens.The performance of the FilmArrayRP has not been established in individuals who received influenza vaccine. Recent administration of a nasal influenza vaccine may cause false positive results for Influenza A and/orInfluenza B.[id number] 06:22:00 Test Item Value Reference Range Interpretation Comments MAGNESIUM (BEAKER) 2.2 mg/dL 1.6-2.6 Specimen slightly (test code = 627) hemolyzed BASIC METABOLIC [id number] 06:22:00 Test Item Value Reference Range Interpretation [...] PATIEN TS. CBC W/PLT COUNT & AUTO [id number] 06:01:00 Test Item Value Reference Range Interpretation [...] = 2801) CBC W/PLT COUNT & AUTO [id number] 07:32:00 Test Item Value Reference Range Interpretation [...] 3438) Received comment: User comments: Slide comments:CALCIUM, [id number] 05:25:00 Test Item Value Reference Range Interpretation Comments CALCIUM IONIZED (BEAKER) (test 1.14 mmol/L 1.12-1.27 code = 698) PH, BLOOD (BEAKER) (test code = 7.41 1810) [id number] 05:04:00 Test Item Value Reference Range Interpretation Comments PHOSPHORUS (BEAKER) (test code = 2.6 mg/dL 2.3-4.7 604) [id number] 05:04:00 Test Item Value Reference Range Interpretation Comments MAGNESIUM (BEAKER) (test code = 1.9 mg/dL 1.6-2.6 627) BASIC METABOLIC [id number] 05:04:00 Test Item Value Reference Range Interpretation [...] NOT APPLICABLE FOR DIALYSIS PATIEN TS. CT, [id number] 17:54:00FINAL REPORT CT scan of the abdomen [...] Postsurgical changes in the right colon.5. Nonocclusive r enal calculi. Signed: Omari Rich MDReport Verified Date/Time: 03/27/2019 17:54:25 Reading Location: [facility] C013X [facility] Consult Reading Room CBC W/PLT COUNT & AUTO [id number] 10:54:00 Test Item Value Reference Range Interpretation [...] = 3438) Received comment: User comments: Slide comments:[id number] 06:36:00 Test Item Value Reference Range Interpretation Comments PHOSPHORUS (BEAKER) (test code = 2.1 mg/dL 2.3-4.7 L 604) [id number] 06:36:00 Test Item Value Reference Range Interpretation Comments MAGNESIUM (BEAKER) (test code = 1.6 mg/dL 1.6-2.6 627) BASIC METABOLIC [id number] 06:36:00 Test Item Value Reference Range Interpretation [...] NOT APPLICABLE FOR DIALYSIS PATIEN TS. CALCIUM, [id number] 06:23:00 Test Item Value Reference Range Interpretation Comments CALCIUM IONIZED (BEAKER) (test 1.14 mmol/L 1.12-1.27 code = 698) PH, BLOOD (BEAKER) (test code = 7.46 1810) RAD, ABDOMEN/KUB, 1 VIEW [id number] 16:14:00Reason for exam:->constipation FINAL REPORT EXAM: AP [...] Reading L ocation: [facility] Mammo Reading Room CBC W/PLT COUNT & AUTO [id number] 10:48:00 Test Item Value Reference Range Interpretation [...] (BEAKER) (test code Normal = 762) CALCIUM, [id number] 06:53:00 Test Item Value Reference Range Interpretation Comments CALCIUM IONIZED (BEAKER) (test 1.14 mmol/L 1.12-1.27 code = 698) PH, BLOOD (BEAKER) (test code = 7.44 1810) [id number] 06:33:00 Test Item Value Reference Range Interpretation Comments PHOSPHORUS (BEAKER) (test code = 2.6 mg/dL 2.3-4.7 604) [id number] 06:33:00 Test Item Value Reference Range Interpretation Comments MAGNESIUM (BEAKER) (test code = 1.4 mg/dL 1.6-2.6 L 627) BASIC METABOLIC [id number] 06:33:00 Test Item Value Reference Range Interpretation [...] S NOT APPLICABLE FOR DIALYSIS PATIEN TS. [id number] 06:28:00 Test Item Value Reference Range Interpretation Comments PHOSPHORUS (BEAKER) (test code = 2.8 mg/dL 2.3-4.7 604) [id number] 06:28:00 Test Item Value Reference Range Interpretation Comments MAGNESIUM (BEAKER) (test code = 1.7 mg/dL 1.6-2.6 627) BASIC METABOLIC [id number] 06:28:00 Test Item Value Reference Range Interpretation [...] NOT APPLICABLE FOR DIALYSIS PATIEN TS. CALCIUM, [id number] 06:27:00 Test Item Value Reference Range Interpretation Comments CALCIUM IONIZED (BEAKER) (test 1.18 mmol/L 1.12-1.27 code = 698) PH, BLOOD (BEAKER) (test code = 7.33 1810) CBC W/PLT COUNT & AUTO [id number] 14:47:00 Test Item Value Reference Range Interpretation [...] code = 2801) RAD, ABDOMEN/KUB, 1 VIEW [id number] 10:35:00Reason for exam:- >distentionShould this be performed at the bedside?->YesFINAL REPORT AP abdomen HISTORY: Distention COMPARISON: 03/21/2018 IMPRESSION:Decreased colonic stool burden. Some prominent aeration in the right lower quadrant. Recommend continued radiographic follow-up as developing ileus not excluded. Examination is insensitive for detection of free air. Signed: Angel Santillan MDReport Verified Date/Time: 03/24/2019 10:35:17 Reading Location: [facility] C013X Ortho Consult Reading Room [id number] 07:21:00 Test Item Value Reference Range Interpretation Comments PHOSPHORUS (BEAKER) (test code = 2.4 mg/dL 2.3-4.7 604) [id number] 07:21:00 Test Item Value Reference Range Interpretation Comments MAGNESIUM (BEAKER) (test code = 1.4 mg/dL 1.6-2.6 L 627) BASIC METABOLIC [id number] 07:21:00 Test Item Value Reference Range Interpretation [...] NOT APPLICABLE FOR DIALYSIS PATIEN TS. CALCIUM, [id number] 06:37:00 Test Item Value Reference Range Interpretation Comments CALCIUM IONIZED (BEAKER) (test 1.14 mmol/L 1.12-1.27 code = 698) PH, BLOOD (BEAKER) (test code = 7.43 1810) POCT-GLUCOSE [id number] 18:06:00 Test Item Value Reference Range Interpretation Comments POC-GLUCOSE METER 106 mg/dL 70-110 TESTED AT [facility] 6720 (BEAKER) (test code = [facility] 1538) [address] CALCIUM, [id number] 13:41:00 Test Item Value Reference Range Interpretation Comments CALCIUM IONIZED (BEAKER) (test 0.83 mmol/L 1.12-1.27 L code = 698) PH, BLOOD (BEAKER) (test code = 7.47 1810) POCT-GLUCOSE [id number] 11:59:00 Test Item Value Reference Range Interpretation Comments POC-GLUCOSE METER 93 mg/dL 70-110 TESTED AT [facility] 6720 (BEAKER) (test code = [facility] [address] 1538) [id number] 10:39:00 Test Item Value Reference Range Interpretation Comments MAGNESIUM (BEAKER) 1.6 mg/dL 1.6-2.6 Specimen slightly (test code = 627) hemolyzed [id number] 10:39:00 Test Item Value Reference Range Interpretation Comments PHOSPHORUS (BEAKER) 2.5 mg/dL 2.3-4.7 Specimen slightly (test code = 604) hemolyzed BASIC METABOLIC [id number] 10:39:00 Test Item Value Reference Range Interpretation [...] PATIEN TS. CBC W/PLT COUNT & AUTO [id number] 10:13:00 Test Item Value Reference Range Interpretation [...] PERCENT (BEAKER) (test code = 2801) POCT-GLUCOSE [id number] 06:33:00 Test Item Value Reference Range Interpretation Comments POC-GLUCOSE METER 74 mg/dL 70-110 TESTED AT [facility] 6720 (BEAKER) (test code = [place] [address] 1538) [id number] 07:02:00 Test Item Value Reference Range Interpretation Comments MAGNESIUM (BEAKER) (test code = 1.6 mg/dL 1.6-2.6 627) BASIC METABOLIC [id number] 07:02:00 Test Item Value Reference Range Interpretation [...] TS. RAD, ABDOMEN SERIES W/ UPRIGHT PA [id number] 00:30:00Reason for exam:- >SBOReason for exam:->EMESISFINAL REPORT [...] further evaluation if clinically appropriate. Signed: Tiffanie Nagyeport Verified Date/Time: 03/22/2019 00:30:32 Reading Location: [address] Reading Room URINALYSIS W/ [id number] 21:18:00 Test Item Value Reference Range Interpretation [...] 0 /HPF SOURCE(BEAKER) (test code = 2795) [id number] 20:16:00 Test Item Value Reference Range Interpretation Comments LIPASE (BEAKER) (test code = 749) < U/L 8-78 L BASIC METABOLIC [id number] 20:14:00 Test Item Value Reference Range Interpretation [...] APPLICABLE FOR DIALYSIS PATIEN TS. HEPATIC FUNCTION [id number] 20:14:00 Test Item Value Reference Range Interpretation [...] 6-55 347) CBC W/PLT COUNT & AUTO [id number] 19:59:00 Test Item Value Reference Range Interpretation [...] PERCENT (BEAKER) (test code = 2801) POCT-GLUCOSE [id number] 21:18:00 Test Item Value Reference Range Interpretation Comments POC-GLUCOSE METER 155 mg/dL 70-110 H TESTED AT [place] [address] ([facility]) (test code = [facility] 1538) [address] POCT-GLUCOSE [id number] 12:24:00 Test Item Value Reference Range Interpretation Comments POC-GLUCOSE METER 179 mg/dL 70-110 H TESTED AT [place] [address] ([facility]) (test code = [facility] 1538) [address] POCT-GLUCOSE [id number] 09:01:00 Test Item Value Reference Range Interpretation Comments POC-GLUCOSE METER 79 mg/dL 70-110 TESTED AT [place] [address] ([facility]) (test code = [facility] [address] 1538) POCT-GLUCOSE [id number] 21:50:00 Test Item Value Reference Range Interpretation Comments POC-GLUCOSE METER 134 mg/dL 70-110 H TESTED AT [facility] 6720 (BEAKER) (test code = [place] 1538) [address] BASIC METABOLIC [id number] 06:49:00 Test Item Value Reference Range Interpretation [...] PATIEN TS. CBC W/PLT COUNT & AUTO [id number] 06:27:00 Test Item Value Reference Range Interpretation [...] PERCENT (BEAKER) (test code = 2801) POCT-GLUCOSE [id number] 22:51:00 Test Item Value Reference Range Interpretation Comments POC-GLUCOSE METER 128 mg/dL 70-110 H TESTED AT [facility] 6720 (BEAKER) (test code = [place] 1538) [address] CT, [id number] 23:14:00FINAL REPORT ABDOMINAL AND PELVIS CT DATED [...] MDReport Verified Date/Time: 02/14/2019 23:14:03 Reading Location: [address] Consult Reading Room LIPASE 2019-02-14 21:10:00 Test Item Value Reference Range Interpretation Comments LIPASE (BEAKER) (test code = 749) < U/L 8-78 L COMPREHENSIVE METABOLIC [id number] 21:09:00 Test Item Value Reference Range Interpretation [...] APPLICABLE FOR DIALYSIS PATIEN TS. LACTIC ACID, [id number] 21:04:00 Test Item Value Reference Range Interpretation Comments LACTATE BLOOD VENOUS (2) (BEAKER) 0.8 mmol/L 0.5-2.2 (test code = 2872) BLOOD GAS, [id number] 21:04:00 Test Item Value Reference Range Interpretation [...] 21.0 % CBC W/PLT COUNT & AUTO [id number] 20:49:00 Test Item Value Reference Range Interpretation [...] (test code = 2801) AFB CULTURE + [id number] 10:54:00 Test Item Value Reference Interpretation Comments Range CULTURE (BEAKER) MYCOBACTERIUM A Mycobacter iu (test code = 1095) SPECIES species* - Most closely related to M.yongonense/M. lulu eillninoFormerly [facility] Systemt ion and susceptibility performed by:[facility] , Dept. of Microbiology Research, Dr. Shyam Olvera 's Laboratory, [address] [facility] [address], [place], [place] [address] Amikacin (test code mcg/mL S = 1) [...] and not related to human disease.CF RESPIRATORY [id number] 00:29:00 Test Item Value Reference Range Interpretation [...] maria del carmen present- CT ABD PELVIS W/[id number] 23:53:00 Name: VELIA RIVERA [facility] : 1975 Age/S: 43 / M [address] Unit #: [id number] Loc: [place] [address] Phys: Angela Diaz MD Acct: [id number] Dis Date: Status: REG ER PHONE#: [phone] Exam Date: 11/20/2018 2355 FAX #: Reason: RLQ pain, hx of SBO EXAMS: CPT: [id number] ABD PELVIS W/CONT 54592 Site ID: [id number] CLINICAL HISTORY: Right lower quadrant pain, history of small bowel obstruction TECHNIQUE: Axial images of the abdomen and pelvis were obtained from diaphragm tothe pubic symphysis with intravenous contrast. CT dose [...] 1 Signed Report (CONTINUED) Name: VELIA RIVERA [facility] : 1975 Age/S: 43 / M [address] Unit #: [id number] Loc: [place] [address] Phys: Angela Diaz MD Acct: [id number] Dis Date: Status: REG ER PHONE #: [phone] Exam Date: 11/20/20182349 FAX #: Reason: RLQ pain, hx of SBO EXAMS: CPT: [id number] CT ABD PELVIS W/CONT 65964 (Continued) at 2353 Reported and signed by: Florence Ferrera M.D. CC: Radha Burch MD; Angela Diaz MD; Yani Gonzalez NP Technologist:Florencia Pinto RT(R)(CT); Lui CTDI: DLP: Trnscb Date/Time: 11/20/2018 (737) Margaret.AJP6 Orig Print D/T: S: 11/20/2018 (7708) CTDI: DLP: PAGE 2 Signed ReportBASIC METABOLIC [id number] 23:24:00 Test Item Value Reference Range Interpretation [...] CA) 8.3 MG/DL 8.5-10.1 L HEPATIC FUNCTION [id number] 23:24:00 Test Item Value Reference Range Interpretation [...] 93 Unit/L 50-136 N code = ALKP) [id number] 23:24:00 Test Item Value Reference Range Interpretation Comments LIPASE (test code = LIP) 28 Unit/L 114-286 L URINALYSIS [id number] 23:21:00 Test Item Value Reference Range Interpretation [...] DIPSTICK (test code = LEUU) CBC W/AUTO [id number] 23:18:00 Test Item Value Reference Range Interpretation [...] = NO DIFF/SCN CRITERIA MDIFF) BASIC METABOLIC [id number] 23:12:00 Test Item Value Reference Range Interpretation [...] CA) 8.3 MG/DL 8.5-10.1 L HEPATIC FUNCTION [id number] 23:12:00 Test Item Value Reference Range Interpretation [...] TOTAL (test code Unit/L 50-136 = ALKP) [id number] 23:12:00 Test Item Value Reference Range Interpretation Comments LIPASE (test code = LIP) 28 Unit/L 114-286 L CF RESPIRATORY [id number] 09:28:00 Test Item Value Reference Range Interpretation [...] Normal respiratory maria del carmen presentCF RESPIRATORY [id number] 15:22:00 Test Item Value Reference Range Interpretation [...] >4 4+ Normal respiratory maria del carmen [id number] 09:23:00 Test Item Value Reference Range Interpretation Comments PHOSPHORUS (BEAKER) (test code = 2.4 mg/dL 2.3-4.7 604) [id number] 09:23:00 Test Item Value Reference Range Interpretation Comments MAGNESIUM (BEAKER) (test code = 1.8 mg/dL 1.6-2.6 627) BASIC METABOLIC [id number] 09:23:00 Test Item Value Reference Range Interpretation [...] PATIEN TS. CBC W/PLT COUNT & AUTO [id number] 09:03:00 Test Item Value Reference Range Interpretation [...] PERCENT (BEAKER) (test code = 2801) SPIN/CONCENTRATION [id number] 14:50:00 Test Item Value Reference Range Interpretation Comments CONCENTRATION CHARGED (BEAKER) (test Done code = 2657) TOBRAMYCIN LEVEL, [id number] 07:27:00 Test Item Value Reference Range Interpretation Comments TOBRAMYCIN RANDOM (BEAKER) (test 1.7 ug/mL code = 544) Reference Range: No [id number] 07:24:00 Test Item Value Reference Range Interpretation Comments PHOSPHORUS (BEAKER) (test code = 2.5 mg/dL 2.3-4.7 604) [id number] 07:24:00 Test Item Value Reference Range Interpretation Comments MAGNESIUM (BEAKER) (test code = 1.5 mg/dL 1.6-2.6 L 627) BASIC METABOLIC [id number] 07:24:00 Test Item Value Reference Range Interpretation [...] PATIEN TS. CBC W/PLT COUNT & AUTO [id number] 07:03:00 Test Item Value Reference Range Interpretation [...] 0-1 PERCENT (BEAKER) (test code = 2801) [id number] 04:19:00 Test Item Value Reference Range Interpretation Comments MAGNESIUM (BEAKER) 1.6 mg/dL 1.6-2.6 Specimen slightly (test code = 627) hemolyzed [id number] 04:19:00 Test Item Value Reference Range Interpretation Comments PHOSPHORUS (BEAKER) 2.6 mg/dL 2.3-4.7 Specimen slightly (test code = 604) hemolyzed BASIC METABOLIC [id number] 04:19:00 Test Item Value Reference Range Interpretation [...] PATIEN TS. CBC W/PLT COUNT & AUTO [id number] 04:09:00 Test Item Value Reference Range Interpretation [...] PERCENT (BEAKER) (test code = 2801) CT, [id number] 21:54:00FINAL REPORT EXAM: CT of the abdomen [...] limits.PANCREAS: Within normal limits.SPLEEN: Within normal limits.ADRENALS: Within normal limits.KIDNEYS/URETERS: Punctate nonobstructing left renal stones. [...] Carvajaleport Verified Date/Time: 10/25/2018 21:54:25 Reading Location: [address] Reading Room [facility] METABOLIC [id number] 20:13:00 Test Item Value Reference Range Interpretation [...] APPLICABLE FOR DIALYSIS PATIEN TS. URINALYSIS W/ [id number] 19:19:00 Test Item Value Reference Range Interpretation [...] 520) SOURCE(BEAKER) (test code = Urine, Voided 1673) CBC W/PLT COUNT & AUTO [id number] 19:02:00 Test Item Value Reference Range Interpretation [...] (test code = 2801) AFB CULTURE + [id number] 12:42:00 Test Item Value Reference Range Interpretation Comments CULTURE (BEAKER) (test No acid-fast bacilli code = 1095) isolated in 42 days AFB SMEAR (BEAKER) No acid fast bacilli (test code = 994) seen FUNGUS CULTURE + [id number] 06:40:00 Test Item Value Reference Range Interpretation Comments CULTURE (BEAKER) (test No fungus isolated in code = 1095) 28 days FUNGUS SMEAR (BEAKER) No fungi seen (test code = 1406) RAD, ABDOMEN/KUB, 1 VIEW [id number] 15:59:00Reason for exam:->assess for stool burdenShould this [...] MDReport Verified Date/Time: 09/13/2018 15:59:37 Reading Location: [address] Consult Reading Room [facility] RESPIRATORY [id number] 12:21:00 Test Item Value Reference Range Interpretation [...] 47) 2+ Normal respiratory maria del carmen [id number] 07:17:00 Test Item Value Reference Range Interpretation Comments PHOSPHORUS (BEAKER) (test code = 3.2 mg/dL 2.3-4.7 604) [id number] 07:17:00 Test Item Value Reference Range Interpretation Comments MAGNESIUM (BEAKER) (test code = 1.6 mg/dL 1.6-2.6 627) BASIC METABOLIC [id number] 07:17:00 Test Item Value Reference Range Interpretation [...] PATIEN TS. CBC W/PLT COUNT & AUTO [id number] 07:16:00 Test Item Value Reference Range Interpretation [...] 0-1 PERCENT (BEAKER) (test code = 2801) [id number] 12:19:00 Test Item Value Reference Range Interpretation Comments PHOSPHORUS (BEAKER) (test code = 3.3 mg/dL 2.3-4.7 604) [id number] 12:19:00 Test Item Value Reference Range Interpretation Comments MAGNESIUM (BEAKER) (test code = 2.1 mg/dL 1.6-2.6 627) BASIC METABOLIC [id number] 12:19:00 Test Item Value Reference Range Interpretation [...] PATIEN TS. CBC W/PLT COUNT & AUTO [id number] 11:54:00 Test Item Value Reference Range Interpretation [...] PERCENT (BEAKER) (test code = 2801) SPIN/CONCENTRATION [id number] 00:15:00 Test Item Value Reference Range Interpretation Comments CONCENTRATION CHARGED (BEAKER) (test Done code = 2657) CT, [id number] 21:49:00Reason for exam:->ABDOMINAL PAINWhat is the patient's [...] attention on follow-up imaging. Signed: Sofiya Ding Verified Date/Time: 09/08/2018 21:49:11 Reading Location: [facility] C013 Transitional Reading Room URINALYSIS W/ [id number] 21:16:00 Test Item Value Reference Range Interpretation [...] 1574) SOURCE(BEAKER) (test code = Urine, Voided 8245) [id number] 19:36:00 Test Item Value Reference Range Interpretation Comments LIPASE (BEAKER) (test code = 749) 31 U/L 8-78 BASIC METABOLIC [id number] 19:36:00 Test Item Value Reference Range Interpretation [...] APPLICABLE FOR DIALYSIS PATIEN TS. HEPATIC FUNCTION [id number] 19:36:00 Test Item Value Reference Range Interpretation [...] (test code = 27 U/L 6-55 347) [id number] 19:30:00 Test Item Value Reference Range Interpretation Comments PARTIAL THROMBOPLASTIN TIME 28.5 seconds 22.5-36.0 (BEAKER) (test code = 760) PROTHROMBIN [id number] 19:29:00 Test Item Value Reference Range Interpretation [...] mechanical heart valves.CBC W/PLT COUNT & AUTO [id number] 19:22:00 Test Item Value Reference Range Interpretation [...] 0-1 PERCENT (BEAKER) (test code = 2801) [id number] 06:48:00 Test Item Value Reference Range Interpretation Comments PHOSPHORUS (BEAKER) (test code = 3.0 mg/dL 2.3-4.7 604) [id number] 06:48:00 Test Item Value Reference Range Interpretation Comments MAGNESIUM (BEAKER) (test code = 1.5 mg/dL 1.6-2.6 L 627) BASIC METABOLIC [id number] 06:48:00 Test Item Value Reference Range Interpretation [...] NOT APPLICABLE FOR DIALYSIS PATIEN TS. PROTHROMBIN [id number] 06:43:00 Test Item Value Reference Range Interpretation [...] code = 685) ALPHA FETOPROTEIN (AFP), TUMOR [id number] 13:38:00 Test Item Value Reference Range Interpretation Comments ALPHA-FETOPROTEIN (BEAKER) (test 2.2 ng/mL <10.0 code = 1094) RAD, CHEST, 1 VIEW, NON [id number] 16:08:00Reason for exam:->CFShould this be performed at the bedside?->YesFINAL REPORT CLINICAL HISTORY: CF TECHNIQUE: 1 view of the chest COMPARISON: 07/31/2018 IMPRESSION: There are no focal infiltrates or pleural effusions. The cardiomediastinal silhouette is within normal limits for size. The visualized bones are intact. Signed: Murray Longo MDReport Verified Date/Time: 08/29/2018 16:08:13 Reading Location: [address] Consult Reading Room CT, [id number] 19:06:00Reason for exam:->abdominal painFINAL REPORT CT scan [...] MDReport Verified Date/Time: 08/28/2018 19:06:10 Reading Location: [address] Consult Reading Room [id number] 16:08:00 Test Item Value Reference Range Interpretation Comments LIPASE (BEAKER) (test code = 749) < U/L 8-78 L BASIC METABOLIC [id number] 15:57:00 Test Item Value Reference Range Interpretation [...] APPLICABLE FOR DIALYSIS PATIEN TS. HEPATIC FUNCTION [id number] 15:57:00 Test Item Value Reference Range Interpretation [...] 6-55 347) CBC W/PLT COUNT & AUTO [id number] 15:44:00 Test Item Value Reference Range Interpretation [...] PERCENT (BEAKER) (test code = 2801) BLOOD [id number] 18:01:00 Test Item Value Reference Range Interpretation Comments CULTURE (BEAKER) (test No growth in 5 days code = 1095) BLOOD [id number] 15:01:00 Test Item Value Reference Range Interpretation Comments CULTURE (BEAKER) A From Aerobi c Bottle (test code = Only Micrococcu s 1095) species GRAM STAIN RESULT From aerobic (BEAKER) (test bottle only: gram code = 1123) positive cocci in clusters BLOOD [id number] 18:00:00 Test Item Value Reference Range Interpretation Comments CULTURE (BEAKER) (test No growth in 5 days code = 1095) RAD, ABDOMEN/KUB, 1 VIEW [id number] 09:39:00Reason for exam:->f/u DIOSFINAL REPORT TECHNIQUE: Supine [...] MDReport Verified Date/Time: 08/03/2018 09:39:24 Reading Location: [facility] Radiology Reading Room RAD, ABDOMEN/KUB, 1 [...] MDReport Verified Date/Time: 08/02/2018 13:48:07 Reading Location: [address] Consult Reading Room BLOOD CULTURE IDENTIFICATION [id number] 13:27:00 Test Item Value Reference Range Interpretation Comments LISTERIA MONOCYTOGENES (test Not detected Not detected code = 9588289) STAPHYLOCOCCUS (test code = Not detected Not detected 20160914) STAPHYLOCOCCUS AUREUS (test code Not detected Not detected = 2617649) STREPTOCOCCUS (test code = Not detected Not detected 8478512) STREPTOCOCCUS AGALACTIAE (GROUP Not detected Not detected B) (test code = 6957374) STREPTOCOCCUS PNEUMONIAE (test Not detected Not detected code = 9742827) STREPTOCOCCUS PYOGENES (GROUP A) Not detected Not detected (test code = 4776152) ACINETOBACTER BAUMANNII (test Not detected Not detected code = 9053285) HAEMOPHILUS INFLUENZAE (test Not detected Not detected code = 7626627) NEISSERIA MENINGITIDIS (test Not detected Not detected code = 1999087) ENTEROBACTERIACEAE (test code = Not detected Not detected 8747745) ENTEROBACTER CLOACOE COMPLEX Not detected Not detected (test code = 5430209) KLEBSIELLA OXYTOCA (test code = Not detected Not detected 8448664) KLEBSIELLA PNEUMONIAE (test code Not detected Not detected = 1650) PROTEUS (test code = 8590480) Not detected Not detected SERRATIA MARCESCENS (test code = Not detected Not detected 3005366) PADILLA ALBICANS (test code = Not detected Not detected 3070752) PADILLA GLABRATA (test code = Not detected Not detected 5994740) PADILLA KRUSEI (test code = Not detected Not detected 2286315) PADILLA PARAPSILOSIS (test code Not detected Not detected = 8915132) PADILLA TROPICALIS (test code = Not detected Not detected 3770702) ESCHERICHIA COLI (test code = Not detected Not detected 8765137) METHICILLIN-RESISTANCE GENE Not detected (test code = 3530785) VANCOMYCIN-RESISTANCE GENE (test Not detected code = 7331486) CARBAPENEM-RESISTANCE GENE (test Not detected code = 2204791) ENTEROCOCCUS-BEAKER (test code = Not detected Not detected 9984309) PSEUDOMONAS AERUGINOSA-BEAKER Not detected Not detected (test code = 1482245) Other bacteria and resistance markers not targeted by this PCR panel cannot be excluded; therefore clinical correlation and follow up of serology, culture results, and other molecular studies is required. The results are not intended to be used as the sole means for clinical diagnosis or patient management decisions. This sample was tested at the [facility] using the [employer] Blood Culture ID Panel. It is FDA cleared and has been verified and approved by the [facility] for clinical use. This laboratory is CLIA-certified and College ofAmerican Pathologists (CAP)-accredited to perform high complexity testing.BASIC METABOLIC [id number] 10:10:00 Test Item Value Reference Range Interpretation [...] PATIEN TS. CBC W/PLT COUNT & AUTO [id number] 09:30:00 Test Item Value Reference Range Interpretation [...] (test code = 2801) RAD, CHEST, 2 [id number] 20:55:00Reason for exam:->Cystic fibrosisFINAL REPORT TECHNIQUE: 2 [...] MDReport Verified Date/Time: 07/31/2018 20:55:36 Reading Location: [facility] [id number] 06:51:00 Test Item Value Reference Range Interpretation [...] PATIEN TS. CBC W/PLT COUNT & AUTO [id number] 06:09:00 Test Item Value Reference Range Interpretation [...] (BEAKER) (test code = 2801) U/S, ABDOMINAL, [id number] 11:04:00Abdomen limited area? Add comment if clarification [...] MDReport Verified Date/Time: 07/30/2018 11:04:05 Reading Location: [address] Transitional Reading [facility] [id number] 10:05:00Reason for exam:->Abdominal painWhat is the patient's [...] MDReport Verified Date/Time: 07/30/2018 10:05:17 Reading Location: [facility] C013Y CT Body Reading Room URINALYSIS WITH MICROSCOPIC IF [id number] 09:06:00 Test Item Value Reference Range Interpretation [...] = 463) SOURCE(BEAKER) (test code = 2795) [id number] 08:53:00 Test Item Value Reference Range Interpretation Comments LIPASE (BEAKER) (test code = 749) < U/L 8-78 L [id number] 08:53:00 Test Item Value Reference Range Interpretation [...] is 2.5-3.5 for patients with mechanical heart valves.[id number] 08:46:00 Test Item Value Reference Range Interpretation Comments MAGNESIUM (BEAKER) (test code = 1.6 mg/dL 1.6-2.6 627) COMPREHENSIVE METABOLIC [id number] 08:46:00 Test Item Value Reference Range Interpretation [...] PATIEN TS. CBC W/PLT COUNT & AUTO [id number] 08:34:00 Test Item Value Reference Range Interpretation [...] 3438) Received comment: User comments: Slide comments:CT, [id number] 18:32:00 Reason for exam:->ABDOMINAL PAINWhat is the patient's sedation requirement?- >No SedationFINAL REPORT CT scan of the abdomen and pelvis. Clinical history: Abdominal pain. COMPARISON STUDY: Gastrografin colonic enema dated July 21, 2018. TECHNIQUE: Contiguous helicalslices were acquired through the abdomen and pelvis posted ministration of intravenous contrast. No oral contrast was administered. This exam was performed [...] Other findings as described above. Signed: Omari Rich MDReport Verified Date/Time: 07/26/2018 18:32:08 Reading Location: [address] Body Reading Room ALT (SGPT)2018-07-26 16:15:00 Test Item Value Reference Range Interpretation Comments ALT (SGPT) (BEAKER) (test code = 347) 40 U/L 6-55 AST (SGOT)2018-07-26 16:15:00 Test Item Value Reference Range Interpretation Comments AST (SGOT) (BEAKER) (test code = 353) 31 U/L 5-34 BASIC METABOLIC [id number] 16:15:00 Test Item Value Reference Range Interpretation [...] APPLICABLE FOR DIALYSIS PATIEN TS. BILIRUBIN, ADULT [id number] 16:15:00 Test Item Value Reference Range Interpretation Comments BILIRUBIN TOTAL (BEAKER) (test code 1.0 mg/dL 0.2-1.2 = 377) [id number] 16:15:00 Test Item Value Reference Range Interpretation Comments LIPASE (BEAKER) (test code = 749) < U/L 8-78 L CBC W/PLT COUNT & AUTO [id number] 16:00:00 Test Item Value Reference Range Interpretation [...] code = 2801) SPUTUM CULTURE + GRAM [id number] 08:14:00 Test Item Value Reference Range Interpretation [...] 0-5 epithelial (BEAKER) (test code cells = 006975) GRAM STAIN RESULT 1+ gram negative (BEAKER) (test code rods = 963554) GRAM STAIN RESULT 1+ gram positive (BEAKER) (test code rods = 251966) GRAM STAIN RESULT 1+ gram positive (BEAKER) (test code cocci in chains, = 635502) pairs and clusters <1+ Normal respiratory maria del carmen presentBLOOD [id number] 11:00:00 Test Item Value Reference Range Interpretation Comments CULTURE (BEAKER) (test No growth in 5 days code = 1095) BASIC METABOLIC [id number] 06:31:00 Test Item Value Reference Range Interpretation [...] 0-0 (BEAKER) (test code = 413) FL, [id number] 16:00:00Reason for exam:->CF with LIONEL, needs barium contrast enema.FINAL REPORT Gastrografin enema CLINICAL HISTORY: Cystic fibrosis with LIONEL DISCUSSION: Nitro Worker film of the abdomen demonstrates large amount [...] [place] Verified Date/Time: 07/21/2018 16:00:52 Reading Location: [address] Consult Reading Room CREATININE, RANDOM [id number] 12:59:00 Test Item Value Reference Range Interpretation Comments CREATININE URINE (BEAKER) (test 88.2 mg/dL code = 375) Reference Range: No NormalsSODIUM, RANDOM [id number] 12:59:00 Test Item Value Reference Range Interpretation Comments SODIUM URINE (BEAKER) (test code = 167 meq/L 243) Reference Range: No NormalsURINALYSIS W/ [id number] 10:58:00 Test Item Value Reference Range Interpretation [...] 516) SOURCE(BEAKER) (test code = Urine, Voided 1705) TSH/FREE T4 IF [id number] 10:13:00 Test Item Value Reference Range Interpretation Comments THYROID STIMULATING HORMONE 1.64 uIU/mL 0.35-4.94 (BEAKER) (test code = 772) TROPONIN [id number] 10:04:00 Test Item Value Reference Range Interpretation [...] acute neurological disease, and persistent tachyarrhythmia.BASIC METABOLIC [id number] 05:36:00 Test Item Value Reference Range Interpretation [...] code = 413) RAD, ABDOMEN/KUB, 1 VIEW [id number] 16:20:00Reason for exam:->ileusFINAL REPORT Abdomen one view [...] MDReport Verified Date/Time: 07/20/2018 16:20:23 Reading Location: [facility] C013W Consult Reading Room [id number] 03:53:00 Test Item Value Reference Range Interpretation Comments MAGNESIUM (BEAKER) (test code = 1.7 mg/dL 1.6-2.6 627) BASIC METABOLIC [id number] 03:53:00 Test Item Value Reference Range Interpretation [...] PATIEN TS. CBC W/PLT COUNT & AUTO [id number] 03:31:00 Test Item Value Reference Range Interpretation [...] code = 2801) RAD, ABDOMEN/KUB, 1 VIEW [id number] 16:03:00Reason for exam:->obstruction FINAL REPORT Abdomen one [...] MDReport Verified Date/Time: 07/19/2018 16:03:55 Reading Location: [facility] C013W Consult Reading Room [id number] 05:28:00 Test Item Value Reference Range Interpretation Comments MAGNESIUM (BEAKER) (test code = 1.5 mg/dL 1.6-2.6 L 627) BASIC METABOLIC [id number] 05:28:00 Test Item Value Reference Range Interpretation [...] PATIEN TS. CBC W/PLT COUNT & AUTO [id number] 05:01:00 Test Item Value Reference Range Interpretation [...] code = 2801) RAD, ABDOMEN/KUB, 1 VIEW [id number] 08:45:00Reason for exam:->eval bowel obstructionFINAL REPORT Technique: [...] [place] Verified Date/Time: 07/18/2018 08:45:55 Reading Location: [facility] Radiology Reading Room MAGNESIUM 2018-07-18 07:03:00 Test Item Value Reference Range Interpretation Comments MAGNESIUM (BEAKER) (test code = 1.5 mg/dL 1.6-2.6 L 627) BASIC METABOLIC [id number] 07:03:00 Test Item Value Reference Range Interpretation [...] PATIEN TS. CBC W/PLT COUNT & AUTO [id number] 06:37:00 Test Item Value Reference Range Interpretation [...] code = 2801) URINALYSIS W/ REFLEX URINE [id number] 22:24:00 Test Item Value Reference Range Interpretation [...] Occasional SOURCE(BEAKER) (test code = 2795) CT, [id number] 21:37:00Reason for exam:->ABDOMINAL PAINReason for exam:->CYSTIC FIBROSISWhat [...] peripheral gas layering non dependently this is favo red to be intraluminal rather than in the bowel wall (pneumatosis intestinalis). However recommend continued close attention on follow-up imaging. No portal venous gas. Fatty atrophy of the pancreas isconsistent with history of cystic fibrosis. Tree-in-bud opacities in the right lower and middle lobeare favored to represent sequela of mucus impaction related to history of cystic fibrosis. Nonobstructing left nephrolithiasis. Signed: Sofiya Ding Verified Date/Time: 07/17/2018 21:37:48 Reading Location: [address] Reading Room (CELLAVISION MANUAL DIFF)2018-07-17 20:15:00 Test [...] = 3438) Received comment: User comments: Slide comments:[id number] 20:05:00 Test Item Value Reference Range Interpretation Comments LIPASE (BEAKER) (test code = 749) < U/L 8-78 L COMPREHENSIVE METABOLIC [id number] 20:03:00 Test Item Value Reference Range Interpretation [...] PATIEN TS. CBC W/PLT COUNT & AUTO [id number] 19:57:00 Test Item Value Reference Range Interpretation [...] 0-1 PERCENT (BEAKER) (test code = 2801) [id number] 19:53:00 Test Item Value Reference Range Interpretation [...] is 2.5-3.5 for patients with mechanical heart valves.[id number] 05:38:00 Test Item Value Reference Range Interpretation Comments MAGNESIUM (BEAKER) (test code = 1.8 mg/dL 1.6-2.6 627) BASIC METABOLIC [id number] 05:38:00 Test Item Value Reference Range Interpretation [...] S NOT APPLICABLE FOR DIALYSIS PATIEN TS. [id number] 09:47:00 Test Item Value Reference Range Interpretation Comments MAGNESIUM (BEAKER) (test code = 1.3 mg/dL 1.6-2.6 L 627) BASIC METABOLIC [id number] 09:47:00 Test Item Value Reference Range Interpretation [...] NOT APPLICABLE FOR DIALYSIS PATIEN TS. HEMOGLOBIN [id number] 11:59:00 Test Item Value Reference Range Interpretation Comments HEMOGLOBIN A1C (BEAKER) (test code = 6.1 % 4.3-6.1 368) [id number] 05:49:00 Test Item Value Reference Range Interpretation Comments MAGNESIUM (BEAKER) (test code = 1.5 mg/dL 1.6-2.6 L 627) BASIC METABOLIC [id number] 05:49:00 Test Item Value Reference Range Interpretation [...] PATIEN TS. CBC W/PLT COUNT & AUTO [id number] 05:12:00 Test Item Value Reference Range Interpretation [...] PERCENT (BEAKER) (test code = 2801) CT, [id number] 19:56:00FINAL REPORT CT of the abdomen and pelvis, with contrast, 06/29/2018. History: Abdominal pain, vomiting, cystic fibrosis Comparison: None available. Technique: Multidetector CT scann ing of the abdomen and pelvis was performed [...] MDReport Verified Date/Time: 06/29/2018 19:56:22 Reading Location: [facility] C013W Consult Reading Room [id number] 17:45:00 Test Item Value Reference Range Interpretation Comments LIPASE (BEAKER) (test code = 749) < U/L 8-78 L COMPREHENSIVE METABOLIC [id number] 17:45:00 Test Item Value Reference Range Interpretation [...] ATED GFR. CBC W/PLT COUNT & AUTO [id number] 17:13:00 Test Item Value Reference Range Interpretation [...] 0-1 PERCENT (BEAKER) (test code = 2801) Notes Date/Time Note Provider Source 2018-11-20 21:38:00-00:00 [id number] [facility] [address] [place] [id number] PATIENT NAME: VELIA RIVERA ADMIT DATE: 9 ACCOUNT NO: [id number] ROOM NO: AGE: 43 REPORT TYPE: eELECTROCARDIOGRAM SEX: M ADMITTING PHYSICIAN: ATTENDING PHYSICIAN: Order: [id number] Test Reason : (Not Selected) Test Date/Time Stamp: TueNov 20 2018 21:38:56 Blood Pressure : / mmHG Vent. Rate : 053 BPM Atrial Rate : 053 BPM P-R Int : 138 ms QRS Dur : 116 ms QT Int : 420 ms P-R-T Axes : 074 078 072 degree s QTc Int : 394 ms Sinus bradycardia Otherwise normal ECG No previous ECGs available Confirmed by VIJAY CAMPA MD (4) on 11/24/2018 12: 17:16 AM Referred By: Self Referred Confirmed by:VIJAY CAMPA MD at 0017 PATIENT NAME: VELIA RIVERA 1498 2018-11-20 21:07:00-00:00 [facility] ([facility]) EMERGENCY PROVIDER REPORT REPORT#:[id number] REPORT STATUS: Signed DATE:11/20/18 TIME:2106 PATIENT: VELIA RIVERA UNIT #: [id number] ROOM/BED: : 75 AGE: 43 SEX: M PCP PHYS: Le Burch MD SERVICE AUTHOR: Yani Gonzalez I [employer] * ALL edits or amendments must be made on the [employer]/computer document * Yani Gonzalez 11/20/182106: HPI-Abd Pain M 40 and Over General Confirmed Patient Yes Patient Type New patient Initial Greet Date/Time 11/20/181942 Presentation Chief Complaint Abdominal pain, Nausea Hx Obtained From Patient Sudden in Onset? No Onset Occurred Today Symptom Duration Since onset, Constant Progression since Onset Unchanged, Gradually wor sening Caused by No trauma by history Location RLQ Quality Sharp Radiation No: Does not radiate. Migration/Movement None Severity: Current Pain level 8 out of 10, Pain l evel 9 out of 10 Associated with Reports: Constipation, Nausea. Denies: Chills, D iarrhea, Fever, Urinary frequency, Urinary retention, Urinary tract symp toms, Vomiting. Associated Other Pt denies other symptoms Exacerbated by Nothing Relieved by Nothing Free Text HPI Notes Free Text HPI Notes 43 yo male with PMH of SBO presents to ED with c /o worsening abdominal pain associated with nausea since this am. Reports pa in to be 9/10, worse with movement and no relieving factors. Repor ts being admitted to the hospital last month with an ileus. Denies vomiting or diarrhea . Risk-Abd Pain M 40 and Over )( Abdominal Aortic Aneurysm Risk factors review ed Coronary Artery Disease Risk factors reviewed, N o risk factors Review of Systems ROS Statements All systems rev neg except as marked. Complete sys rev neg except as marked. Focused Review of Systems Constitutional Denies: Chills, Fever, Lethargy. Respiratory Denies: Cough, non-productive, Cough, productive , Shortness of breath. Cardiovascular Denies: Chest pain, Syncope. GI Reports: Abdominal pain, Constipation, Nausea. D enies: Diarrhea, Vomiting. Male Denies: Flank pain, Testicular pain. Musculoskeletal Denies: Back pain, Extremity pain. Past Medical History - Adult Stated Complaint ABD PAIN SINCE THIS MORNING Allergies Coded Allergies: No Known Allergies (03/17/18) Home Medications Active Scripts CIPROFLOXACIN (CIPRO) 500 MG PO Q12H CIPROFLOXACIN (CIPRO) 500 MG PO Q12H #14 TABS Prov: 03/18/18 metroNIDAZOLE (FLAGYL) 500 MG PO TID metroNIDAZOLE (FLAGYL) 500 MG PO TID #21 TABS Prov: 03/18/18 methylPREDNISolone (MEDROL 4 MG DOSEPAK) 1 EACH PO ASDIR methylPREDNISolone (MEDROL 4 MG DOSEPAK) 1 EACH PO ASDIR #1 PACK Prov: 03/18/18 METOCLOPRAMIDE (REGLAN) 10 MG PO QID PRN NAUSEA AND VOMITING METOCLOPRAMIDE (REGLAN) 10 MG PO QID PRN NAUSEA AND VOMITING #20 TABS Prov: 03/18/18 Review of Nursing Notes Rev avail, and agree (tr iage only) Pt reports no significant: Family history, Socia l history Additional Medical History small bowel obstruction Additional Surgical History SBO Smoking status for patients 13 years old or olde r: Never Smoker Physical Exam Vital Signs Vital Signs Review of Vital Signs Reviewed Focused PE General/Const General/Const Awake, Alert, No acute distress, Well hydrated, Not toxic appearing MS Head Head Atraumatic, Normocephalic Eyes Eyes No periorbital redness, No periorbital swe lling, Conjunctiva NL Ears/Nose/Throat Ears/Nose/Throat Airway patent, Mucous membrane s moist Resp/Chest Respiratory/Chest Atraumatic, Breath sounds NL, Breath sounds = bilat, No respiratory distress Cardiovascular Cardiovascular Heart rate NL, Regular rhythm, H eart sounds NL, Peripheral circulation NL Abdomen/GI Tenderness/Guarding/Rebound Tender RLQ. Bowel Sounds/Distention Bowel sounds hypoactive, Distention mild. MS Back Back Inspection NL, Non-tender, No CVA tenderne ss Skin Skin Color NL, Warm, Dry, Turgor NL Neurologic Neurologic Oriented X3, Speech NL, No motor def icits, No sensory deficits, Gait NL Additional PE MS Neck Neck Atraumatic, Full range of motion Psychiatric Psychiatric Affect NL, Mood NL Interpretation Diagnostics Lab Results Interpretation Results Imaging Statement Radiographic studies reviewed and considered in the medical decision-making. Point of Care Testing Pulse Oximetry Pulse Ox % 98 On: Room air Interpretation Interpreted by me, Pulse oximetr y normal ECG #1 Interpretation Date 11/20/18 Time 2153 Interpreted by ED physician (Dr. Diaz) NL ECG Interpretation No STEMI Rate 53 ECG Q-T-ST - [place] T-waves peaked Re-Evaluation MDM ED Course Medication(s) Ordered Medication(s) Ordered: Central Nervous System Agents Sig/Darya Start time Last Medication Dose Route Stop Time Status Admin Morphine Sulfate 4 MG X1ED STA 11/20 2105 DC IV 11/20 2106 223 Diagnostic Agents Sig/Darya Start time Last Medication Dose Route Stop Time Status Admin Iopamidol 0 .STK-MED ONE 11/20 2335 DC 11/20 IV 2340 Electrolytic, Caloric, And Yrn Sig/Darya Start time Last Medication Dose Route Stop Time Status Admin Sodium Chloride 1,000 ML X1ED STA 11/20 2105 D C 11/20 IV 11/20 2206 2235 Gastrointestinal Drugs Sig/Darya Start time Last Medication Dose Route Stop Time Status Admin Ondansetron HCl 4 MG X1ED PRN PRN 11/20 2114 DC 11/20 IV 11/21 2113 2236 Patient Discharge Departure Vital Signs/Condition Vital Signs Pt/Provider Handoff Care Transferred to Dr. Diaz Care Transferred at 2159 Discussed Complaint(s) Yes Laboratory Evaluation Ordered, not yet done Imaging Studies Ordered, not yet done Portions of this section were scribed by Delano Thayer on 11/21/18 at 0604 Angela Diaz 11/21/18 0001: Physical Exam Vital Signs Vital Signs First Documented: Result Date Time Pulse Ox 98 11/20 2002 B/P 118/74 11/20 2002 B/P Mean 88 11/20 2002 O2 Delivery Room air 11/20 2002 Temp 97.6 11/20 2002 Pulse 57 11/20 2002 Resp 17 11/20 2002 Last Documented: Result Date Time Pulse Ox 98 11/20 2350 B/P 107/68 11/20 2350 B/P Mean 81 11/20 2350 Pulse 67 11/20 2350 Resp 16 11/20 2350 O2 Delivery Room air 11/20 2002 Temp 97.6 11/20 2002 Portions of this section were scribed by Delano Thayer on 11/21/18 at 0001 Interpretation Diagnostics Lab Results Interpretation Results Laboratory Tests 11/20/182234: [Embedded Image Not Available] Laboratory Tests: 11/20 2234 Chemistry Sodium (134 - 147 mmol/L) 139 Potassium (3.4 - 5.0 mmol/L) 3.7 Chloride (100 - 108 mmol/L) 109 H Carbon Dioxide (21 - 32 mmol/L) 24 Anion Gap (4.0 - 15.0 GAP calc) 6.0 BUN (7 - 18 MG/DL) 14 Creatinine (0.8 - 1.3 MG/DL) 1.1 Glomerular Filtr Rate (>60 estGFR) >=60 max est imate Glucose (70 - 110 MG/DL) 86 Calcium (8.5 - 10.1 MG/DL) 8.3 L Total Bilirubin (0.2 - 1.2 MG/DL) 0.80 Direct Bilirubin (0.00 - 0.30 MG/DL) 0.20 Indirect Bilirubin (0.2 - 1.2 MG/DL) 0.60 AST (15 - 37 Unit/L) 38 H ALT (12 - 78 Unit/L) 54 Total Alk Phosphatase (50 - 136 Unit/L) 93 Total Protein (6.4 - 8.2 G/DL) 6.9 Albumin (3.4 - 5.0 G/DL) 3.5 Lipase (114 - 286 Unit/L) 28 L Hematology WBC (3.5 - 11.0 K/mm3) 11.0 RBC (4.70 - 6.10 M/mm3) 4.60 L Hgb (12.3 - 15.9 G/DL) 14.4 Hct (35.8 - 46.7 %) 42.2 MCV (86.3 - 98.9 Fl) 91.7 MCH (28.9 - 34.4 pg) 31.3 MCHC (32.1 - 34.5 G/DL) 34.1 RDW (11.5 - 14.5 SD) 13.6 Plt Count (150 - 450 K/mm3) 173.0 MPV (7.0 - 9.6 fL) 11.90 H Neut % (Auto) (40 - 76 %) 52.9 Lymph % (Auto) (20.5 - 51.1 %) 33.5 [place] % (Auto) (1.7 - 9.3 %) 9.0 Eos % (Auto) (0.0 - 6.0 %) 4.3 Baso % (Auto) (0.0 - 2.0 %) 0.3 Neut # (Auto) (1.8 - 7.6 K/mm3) 5.82 Lymph # (Auto) (0.6 - 3.0 K/mm3) 3.7 H [place] # (Auto) (0.2 - 1.5 K/mm3) 1.0 Eos # (Auto) (0.0 - 0.4 K/mm3) 0.5 H Baso # (Auto) (0.0 - 0.2 K/mm3) 0.0 Add Manual Diff (CRITERIA DIFF/SCN) NO Urines Urine Color (YEL/STRAW discript) YELLOW Urine Appearance (CLEAR discript) CLEAR Urine pH (5.0 - 7.0 pH UNITS) 5.5 Ur Specific [place] (1.005 - 1.030 SG) >=1.030 H Urine Protein (NEG mg/dL) NEGATIVE Urine Glucose (UA) (NEG mg/dL) NEGATIVE Urine Ketones (NEG mg/dL) NEGATIVE Urine Blood (NEG mg/DL) NEGATIVE Urine Nitrite (NEG SCREEN) NEGATIVE Urine Bilirubin (NEG mg/dL) NEGATIVE Urine Urobilinogen (<2.0 mg/dL) 0.2 Ur Leukocyte Esterase (NEGATIVE Leuk/mcL) NEGAT NACHO Recent Impressions: CAT SCAN - CT ABD PELVIS W/CONT 11/20 2820 Report Impression - Status: SIGNED Entered: 11/20/2018 3332 IMPRESSION: Moderate volume of stool throughout the colon, w ith a patulous appearance to the cecum. No bowel obstruction or acute inflammatory change. Impression By: IbrahimaAJVin Ferrera M.D. ECG #2 Interpretation ECG Documented in MUSE Yes Date 11/20/18 Time 2137 Interpreted by ED physician ROBERT ECG Interpretation #2 No acute ischemic longo es, No STEMI, Normal axis, Normal intervals Rate 53 Rhythm Bradycardia Portions of this section were scribed by Delano Thayer on 11/21/18 at 0604 Re-Evaluation MDM Free Text MDM Notes Free Text MDM Notes 43 yo óscar hpi Pe as above vss labs wnl ct wo acute processes therfore dc with pcp fu an d colace for constipation on reassesment pain was improved abd soft ntnd pt understands pland for pcp fu and careful precautions to return to the ed for new or worsening symptoms )( Re-Evaluation/Progress #1 Time of Re-Eval 0000 )( Re-Eval Status Improved ED Course Medication(s) Ordered Portions of this section were scribed by Delano Thayer on 11/21/18 at 0001 Patient Discharge Departure Vital Signs/Condition Vital Signs First Documented: Result Date Time Pulse Ox 98 11/20 2002 B/P 118/74 11/20 2002 B/P Mean 88 11/20 2002 O2 Delivery Room air 11/20 2002 Temp 97.6 11/20 2002 Pulse 57 11/20 2002 Resp 17 11/20 2002 Last Documented: Result Date Time Pulse Ox 98 11/20 235 B/P 107/68 11/20 2350 B/P Mean 81 11/20 2350 Pulse 67 11/20 2350 Resp 16 11/20 235 O2 Delivery Room air 11/20 2002 Temp 97.6 11/20 2002 All vital signs available at the time of this en try have been reviewed. Condition Improved Clinical Impression Clinical Impression Primary Impression: Abdominal pain Secondary Impressions: Constipation Disposition Decision Discharge )( Discharged to Home Yes )( Time 0001 )( Date 11/21/18 Discharge/Care Plan Counseled Regarding Diagnosis, Need for follow-u p, When to return to ED Prescriptions Colace (See Rx) Prescriptions Reviewed Risks, Benefits, Alternat nacho treatment Discharge Note I have spoken with the patie nt and/or caregivers. I have explained the patient's condition, diagnoses and ambrosio atment plan based on the information available to me at this time. I have answered the patient's and/ or caregiver's questions and addressed any concerns. The patient and/or careg krishna have as good an understanding of the patient 's diagnosis, condition and treatment plan as can be expected at this point. The vital signs have bee n stable. The patient's condition is stable and appr opriate for discharge from the emergency department. The patient will pursue further outpatient evalu ation with the primary care physician or other designated or consulting phys ician as outlined in the discharge instructions. The patient and/or caregivers are agreeable to this plan of care and follow-up instructions have been exp lained in detail. The patient and/or caregivers have received these instructio ns in written format and have expressed an understanding of the discharge inst ructions. The patient and/or caregivers are aware that any significant change in condition or worsening of symptoms should prompt an immediate return to [facility] or the closest emergency department or a call to 911. Supervising Physician Note MidLv/Doc Saw Pt 1 I have seen and evaluated [facility] patient and agree with the nurse practitioner or physician production assistant's docume ntation and assessment. Documentation of one or more elements of my assessment are included in the [place] dical record. Scribe Statement Loren Thayer, 11/21/18 0604, scribing for and in e presence of [Dr. Diaz]. Signed By: Loren Thayer, 11/21/18 0604 Provider Scribed Statement I personally performed the s ervices described in this documentation and reviewed the documentation that was dictated to the scrib e(s) in my presence, and it accurately records my words and actions. Lillian Diaz, 11/21/18 Portions of this section were scribed by Delano Thayer on 11/21/18 at 0001 Authenticated by Angela Diaz MD on 11/21/18 a t 0607 Electronically Signed by Yani Gonzalez I [employer] MANAGER on 0 11/22/18 at 1542 RPT #: [id number] END OF REPORT 2018-11-20 21:07:00-00:00 [facility] ([facility]) EMERGENCY PROVIDER REPORT REPORT#:[id number] REPORT STATUS: Signed DATE:11/20/18 TIME:2106 PATIENT: VELIA RIVERA UNIT #: [id number] ROOM/BED: : 75 AGE: 43 SEX: M PCP PHYS: Le Burch MD SERVICE AUTHOR: Yani Gonzalez I [employer] SAL[employer] MANAGER * ALL edits or amendments must be made on the [employer]/computer document * Yani Gonzalez 11/20/182106: HPI-Abd Pain M 40 and Over General Confirmed Patient Yes Patient Type New patient Presentation Chief Complaint Abdominal pain, Nausea Hx Obtained From Patient Sudden in Onset? No Onset Occurred Today Symptom Duration Since onset, Constant Progression since Onset Unchanged, Gradually wor sening Caused by No trauma by history Location RLQ Quality Sharp Radiation No: Does not radiate. Migration/Movement None Severity: Current Pain level 8 out of 10, Pain l evel 9 out of 10 Associated with Reports: Constipation, Nausea. Denies: Chills, D iarrhea, Fever, Urinary frequency, Urinary retention, Urinary tract symp toms, Vomiting. Associated Other Pt denies other symptoms Exacerbated by Nothing Relieved by Nothing Free Text HPI Notes Free Text HPI Notes 43 yo male with PMH of SBO presents to ED with c /o worsening abdominal pain associated with nausea since this am. Reports pa in to be 9/10, worse with movement and no relieving factors. Repor ts being admitted to the hospital last month with an ileus. Denies vomiting or diarrhea . Risk-Abd Pain M 40 and Over )( Abdominal Aortic Aneurysm Risk factors review ed Coronary Artery Disease Risk factors reviewed, N o risk factors Review of Systems ROS Statements All systems rev neg except as marked. Complete sys rev neg except as marked. Focused Review of Systems Constitutional Denies: Chills, Fever, Lethargy. Respiratory Denies: Cough, non-productive, Cough, productive , Shortness of breath. Cardiovascular Denies: Chest pain, Syncope. GI Reports: Abdominal pain, Constipation, Nausea. D enies: Diarrhea, Vomiting. Male Denies: Flank pain, Testicular pain. Musculoskeletal Denies: Back pain, Extremity pain. Past Medical History - Adult Stated Complaint ABD PAIN SINCE THIS MORNING Allergies Coded Allergies: No Known Allergies (03/17/18) Home Medications Active Scripts CIPROFLOXACIN (CIPRO) 500 MG PO Q12H CIPROFLOXACIN (CIPRO) 500 MG PO Q12H #14 TABS Prov: 03/18/18 metroNIDAZOLE (FLAGYL) 500 MG PO TID metroNIDAZOLE (FLAGYL) 500 MG PO TID #21 TABS Prov: 03/18/18 methylPREDNISolone (MEDROL 4 MG DOSEPAK) 1 EACH PO ASDIR methylPREDNISolone (MEDROL 4 MG DOSEPAK) 1 EACH PO ASDIR #1 PACK Prov: 03/18/18 METOCLOPRAMIDE (REGLAN) 10 MG PO QID PRN NAUSEA AND VOMITING METOCLOPRAMIDE (REGLAN) 10 MG PO QID PRN NAUSEA AND VOMITING #20 TABS Prov: 03/18/18 Review of Nursing Notes Rev avail, and agree (tr iage only) Pt reports no significant: Family history, Socia l history Additional Medical History small bowel obstruction Additional Surgical History SBO Smoking status for patients 13 years old or olde r: Never Smoker Physical Exam Vital Signs Vital Signs Review of Vital Signs Reviewed Focused PE General/Const General/Const Awake, Alert, No acute distress, Well hydrated, Not toxic appearing MS Head Head Atraumatic, Normocephalic Eyes Eyes No periorbital redness, No periorbital swe lling, Conjunctiva NL Ears/Nose/Throat Ears/Nose/Throat Airway patent, Mucous membrane s moist Resp/Chest Respiratory/Chest Atraumatic, Breath sounds NL, Breath sounds = bilat, No respiratory distress Cardiovascular Cardiovascular Heart rate NL, Regular rhythm, H eart sounds NL, Peripheral circulation NL Abdomen/GI Tenderness/Guarding/Rebound Tender RLQ. Bowel Sounds/Distention Bowel sounds hypoactive, Distention mild. MS Back Back Inspection NL, Non-tender, No CVA tenderne ss Skin Skin Color NL, Warm, Dry, Turgor NL Neurologic Neurologic Oriented X3, Speech NL, No motor def icits, No sensory deficits, Gait NL Additional PE MS Neck Neck Atraumatic, Full range of motion Psychiatric Psychiatric Affect NL, Mood NL Interpretation Diagnostics Lab Results Interpretation Results Laboratory Tests 11/20/182234: [Embedded Image Not Available] Laboratory Tests: 11/20 2234 Chemistry Sodium (134 - 147 mmol/L) 139 Potassium (3.4 - 5.0 mmol/L) 3.7 Chloride (100 - 108 mmol/L) 109 H Carbon Dioxide (21 - 32 mmol/L) 24 Anion Gap (4.0 - 15.0 GAP calc) 6.0 BUN (7 - 18 MG/DL) 14 Creatinine (0.8 - 1.3 MG/DL) 1.1 Glomerular Filtr Rate (>60 estGFR) >=60 max est imate Glucose (70 - 110 MG/DL) 86 Calcium (8.5 - 10.1 MG/DL) 8.3 L Total Bilirubin (0.2 - 1.2 MG/DL) 0.80 Direct Bilirubin (0.00 - 0.30 MG/DL) 0.20 Indirect Bilirubin (0.2 - 1.2 MG/DL) 0.60 AST (15 - 37 Unit/L) 38 H ALT (12 - 78 Unit/L) 54 Total Alk Phosphatase (50 - 136 Unit/L) 93 Total Protein (6.4 - 8.2 G/DL) 6.9 Albumin (3.4 - 5.0 G/DL) 3.5 Lipase (114 - 286 Unit/L) 28 L Hematology WBC (3.5 - 11.0 K/mm3) 11.0 RBC (4.70 - 6.10 M/mm3) 4.60 L Hgb (12.3 - 15.9 G/DL) 14.4 Hct (35.8 - 46.7 %) 42.2 MCV (86.3 - 98.9 Fl) 91.7 MCH (28.9 - 34.4 pg) 31.3 MCHC (32.1 - 34.5 G/DL) 34.1 RDW (11.5 - 14.5 SD) 13.6 Plt Count (150 - 450 K/mm3) 173.0 MPV (7.0 - 9.6 fL) 11.90 H Neut % (Auto) (40 - 76 %) 52.9 Lymph % (Auto) (20.5 - 51.1 %) 33.5 [place] % (Auto) (1.7 - 9.3 %) 9.0 Eos % (Auto) (0.0 - 6.0 %) 4.3 Baso % (Auto) (0.0 - 2.0 %) 0.3 Neut # (Auto) (1.8 - 7.6 K/mm3) 5.82 Lymph # (Auto) (0.6 - 3.0 K/mm3) 3.7 H [place] # (Auto) (0.2 - 1.5 K/mm3) 1.0 Eos # (Auto) (0.0 - 0.4 K/mm3) 0.5 H Baso # (Auto) (0.0 - 0.2 K/mm3) 0.0 Add Manual Diff (CRITERIA DIFF/SCN) NO Urines Urine Color (YEL/STRAW discript) YELLOW Urine Appearance (CLEAR discript) CLEAR Urine pH (5.0 - 7.0 pH UNITS) 5.5 Ur Specific [place] (1.005 - 1.030 SG) >=1.030 H Urine Protein (NEG mg/dL) NEGATIVE Urine Glucose (UA) (NEG mg/dL) NEGATIVE Urine Ketones (NEG mg/dL) NEGATIVE Urine Blood (NEG mg/DL) NEGATIVE Urine Nitrite (NEG SCREEN) NEGATIVE Urine Bilirubin (NEG mg/dL) NEGATIVE Urine Urobilinogen (<2.0 mg/dL) 0.2 Ur Leukocyte Esterase (NEGATIVE Leuk/mcL) NEGAT NACHO Recent Impressions: CAT SCAN - CT ABD PELVIS W/CONT 11/20 2339 Report Impression - Status: SIGNED Entered: 11/20/2018 2356 IMPRESSION: Moderate volume of stool throughout the colon, w ith a patulous appearance to the cecum. No bowel obstruction or acute inflammatory change. Impression By: Lucinda Ferrera M.D. Imaging Statement Radiographic studies reviewed and considered in the medical decision-making. Point of Care Testing Pulse Oximetry Pulse Ox % 98 On: Room air Interpretation Interpreted by me, Pulse oximetr y normal ECG #1 Interpretation Date 11/20/18 Time 2153 Interpreted by ED physician (Dr. Diaz) NL ECG Interpretation No STEMI Rate 53 ECG Q-T-ST - [place] T-waves peaked Re-Evaluation MDM ED Course Medication(s) Ordered Medication(s) Ordered: Central Nervous System Agents Sig/Darya Start time Last Medication Dose Route Stop Time Status Admin Morphine Sulfate 4 MG X1ED STA 11/20 2105 DC IV 11/20 2106 223 Diagnostic Agents Sig/Darya Start time Last Medication Dose Route Stop Time Status Admin Iopamidol 0 .STK-MED ONE 11/20 2335 DC 11/20 IV 2340 Electrolytic, Caloric, And Yrn Sig/Darya Start time Last Medication Dose Route Stop Time Status Admin Sodium Chloride 1,000 ML X1ED STA 11/20 2105 DC 11/20 IV 11/206 2235 Gastrointestinal Drugs Sig/Darya Start time Last Medication Dose Route Stop Time Status Admin Ondansetron HCl 4 MG X1ED PRN PRN 11/20 2114 DC 11/20 IV 02/12 2114 2236 Patient Discharge Departure Vital Signs/Condition Vital Signs Pt/Provider Handoff Care Transferred to Dr. Diaz Care Transferred at 2159 Discussed Complaint(s) Yes Laboratory Evaluation Ordered, not yet done Imaging Studies Ordered, not yet done Angela Diaz 11/21/18 0001: HPI-Abd Pain M 40 and Over General Initial Greet Date/Time 11/20/18 1943 Portions of this section were scribed by Delano Thayer on 11/21/18 at 0604 Physical Exam Vital Signs Vital Signs First Documented: Result Date Time Pulse Ox 98 11/20 2002 B/P 118/74 11/20 2002 B/P Mean 88 11/20 2002 O2 Delivery Room air 11/20 2002 Temp 97.6 11/20 2002 Pulse 57 11/20 2002 Resp 17 11/20 2002 Last Documented: Result Date Time Pulse Ox 98 11/20 2351 B/P 107/68 11/20 2351 B/P Mean 81 11/20 2350 Pulse 67 11/20 2350 Resp 16 11/20 2350 O2 Delivery Room air 11/20 2002 Temp 97.6 11/20 2002 Portions of this section were scribed by Delano Thayer on 11/21/18 at 0001 Interpretation Diagnostics Lab Results Interpretation Results ECG #2 Interpretation ECG Documented in MUSE Yes Date 11/20/18 Time 2137 Interpreted by ED physician NL ECG Interpretation #2 No acute ischemic longo es, No STEMI, Normal axis, Normal intervals Rate 53 Rhythm Bradycardia Portions of this section were scribed by Delano Thayer on 11/21/18 at 0604 Re-Evaluation MDM Free Text MDM Notes Free Text MDM Notes 43 yo [place] hpi Pe as above vss labs wnl ct wo acute processes therfore dc with pcp fu an d colace for constipation on reassesment pain was improved abd soft ntnd pt understands pland for pcp fu and careful precautions to return to the ed for new or worsening symptoms )( Re-Evaluation/Progress #1 Time of Re-Eval 0000 )( Re-Eval Status Improved ED Course Medication(s) Ordered Portions of this section were scribed by Delano Thayer on 11/21/18 at 0001 Patient Discharge Departure Vital Signs/Condition Vital Signs First Documented: Result Date Time Pulse Ox 98 11/20 2002 B/P 118/74 11/20 2002 B/P Mean 88 11/20 2002 O2 Delivery Room air 11/20 2002 Temp 97.6 11/20 2002 Pulse 57 11/20 2002 Resp 17 11/20 2002 Last Documented: Result Date Time Pulse Ox 98 11/20 2350 B/P 107/68 11/20 2350 B/P Mean 81 11/20 2350 Pulse 67 11/20 2350 Resp 16 11/20 2350 O2 Delivery Room air 11/20 2002 Temp 97.6 11/20 2002 All vital signs available at the time of this en try have been reviewed. Condition Improved Clinical Impression Clinical Impression Primary Impression: Abdominal pain Secondary Impressions: Constipation Disposition Decision Discharge )( Discharged to Home Yes )( Time 0001 )( Date 11/21/18 Discharge/Care Plan Counseled Regarding Diagnosis, Need for follow-u p, When to return to ED Prescriptions Colace (See Rx) Prescriptions Reviewed Risks, Benefits, Alternat nacho treatment Discharge Note I have spoken with the patie nt and/or caregivers. I have explained the patient's condition, diagnoses and ambrosio atment plan based on the information available to me at this time. I have answered the patient's and/ or caregiver's questions and addressed any concerns. The patient and/or careg krishna have as good an understanding of the patient 's diagnosis, condition and treatment plan as can be expected at this point. The vital signs have bee n stable. The patient's condition is stable and appr opriate for discharge from the emergency department. The patient will pursue further outpatient evalu ation with the primary care physician or other designated or consulting phys ician as outlined in the discharge instructions. The patient and/or caregivers are agreeable to this plan of care and follow-up instructions have been exp lained in detail. The patient and/or caregivers have received these instructio ns in written format and have expressed an understanding of the discharge inst ructions. The patient and/or caregivers are aware that any significant change in condition or worsening of symptoms should prompt an immediate return to [facility] or the closest emergency department or a call to 911. Supervising Physician Note MidLv/Doc Saw Pt 1 I have seen and evaluated [facility] patient and agree with the nurse practitioner or physician production assistant's docume ntation and assessment. Documentation of one or more elements of my assessment are included in the [place] dical record. Scribe Statement Loren Thayer, 11/21/18 0604, scribing for and in th e presence of [Dr. Diaz]. Signed By: Loren Thayer, 11/21/18 0604 Provider Scribed Statement I personally performed the s ervices described in this documentation and reviewed the documentation that was dictated to the scrib e(s) in my presence, and it accurately records my words and actions. Lillian Diaz, 11/21/18 Portions of this section were scribed by Delano Thayer on 11/21/18 at 0001 Electronically Signed by Yani Gonzalez I [employer] SALES MANAGER on 0 11/22/18 at 1542 Electronically Signed by Angela Diaz MD on at 8735 RPT #: [id number] END OF REPORT
--- NOTE | 2023-04-10 20:57 | RAD REPORT ---
EXAM DESCRIPTION: Nancy Single View04/10/2023 8:36 pm CLINICAL HISTORY: Abdominal pain COMPARISON: 2021 FINDINGS: The lungs appear clear of acute infiltrate. The heart is normal size IMPRESSION: No acute abnormalities displayed
[2023-04-10] MEDS ORDERED: FENTANYL CITR 100 MCG/2 ML ONE (20:58)
[2023-04-10] MEDS ORDERED: ONDANSETRON 4 MG/2 ML VIAL ONE (21:00)
[2023-04-10] MEDS ORDERED: NA CHLORIDE 0.9% 1,000 ML ONE (21:00)
[2023-04-10] MEDS ORDERED: FAMOTIDINE 20 MG/2 ML VIAL IV ONE (21:00)
[2023-04-10 21:05] LABS: Hematocrit 39.2 % (39.6-49.0); Lymphocytes % 31.8 % (15.3-44.8); MCV 92.2 fL (80-100); MPV 9.3 fL (7.6-11.3); RBC Red Blood Cell Count 4.26 M/uL (4.33-5.43)
[2023-04-10 21:18] LABS: Protime INR 1.06
[2023-04-10 21:24] LABS: ALT/SGPT 47 U/L (16-61); AST/SGOT 25 U/L (15-37); Albumin 3.6 g/dL (3.4-5.0); Alkaline Phosphatase 87 U/L (45-117); BUN Blood Urea Nitrogen 14 mg/dL (7-18); Bicarbonate 26 mEq/L (21-32); Bilirubin Direct 0.2 mg/dL (0-0.2); Bilirubin Indirect, Calculated 0.5 mg/dL (0.2-0.8); Bilirubin Total 0.7 mg/dL (0.2-1.0); Glomerular Filtration Rate 74 ml/min (=/>90); Glucose Level 111 mg/dL (74-106); Magnesium 1.8 mg/dL (1.6-2.4); NT PRO-BNP 14 pg/mL (<125); Potassium 4.4 mEq/L (3.5-5.1); Sodium Level 136 mEq/L (136-145); Troponin High Sensitivity 5.2 pg/mL (<58.9)
[2023-04-10 21:25] LABS: Lipase < 6 U/L (13-75)
[2023-04-10] MEDS ORDERED: PIPERACIL/TAZO 3.375 GM VIAL IV ONE (22:00)
[2023-04-10] MEDS ORDERED: NA CHLORIDE 0.9% 100 ML ONE (22:01)
--- NOTE | 2023-04-10 22:13 | RAD REPORT ---
EXAM DESCRIPTION: CT - Abdomen Pelvis W Contrast - 04/10/2023 9:59 pm CLINICAL HISTORY: Abdominal pain COMPARISON: February 2023 TECHNIQUE: Computed axial tomography of the abdomen pelvis was obtained. 95 cc Isovue-300 was admini stered intravenously. Oral contrast was not requested which limits evaluation of bowel and appendix All CT scans are performed using dose optimization technique as appropriate and may include automated exposure control or mA/KV adjustment according to patient size. FINDINGS: Atrophic pancreas. Liver, spleen, adrenals and kidneys unremarkable Mild dilatation of the entire colon. The most distended portion is the cecum measuring 8.4 centimeter s. Sigmoid colon measures 7 centimeters. Fluid is present within small bowel. A few loops are mildly dilated. A moderate to large amount of stool within ascending, transverse and descending colon IMPRESSION: Dilated large and small bowel probably an adynamic ileus. If the patient's symptoms pers ist then followup abdominal plain film series would be recommended
--- NOTE | 2023-04-10 22:53 | ER ---
Nurse's Notes [facility] Name: Matt Robles Age: 47 yrs Sex: Male : 1975 Arrival Date: 04/10/2023 Time: 19:28 Bed 19 Private MD: Diagnosis: Cystic fibrosis with other intestinal manifestations;Ileus, unspecified-AYDYNAMIC ILEUS;Abdominal tenderness Presentation: 04/10 20:06 Chief complaint: Patient states: I have cystic fibrosis and I haven't had a bowl kd3 movement in 4 days and that is not normal for me. Today i have 10 out of 10 abdominal pain that is more toward the right side of my stomach and i feel very full and bloated. Coronavirus screen: Vaccine status: Patient reports being unvaccinated. Ebola Screen: No symptoms or risks identified at this time. Initial Sepsis Screen: Does the patient meet any 2 criteria? No. Patient's initial sepsis screen is negative. Does the patient have a suspected source of infection? No. Patient's initial sepsis screen is negative. Risk Assessment: Do you want to hurt yourself or someone else? Patient reports no desire to harm self or others. Onset of symptoms was April 10, 2023. 20:06 Method Of Arrival: Ambulatory kd3 20:06 Acuity: BRENNA 3 kd3 Triage Assessment: 20:09 General: Appears uncomfortable, Behavior is calm, cooperative. Pain: Complains of pain kd3 in right upper quadrant and right lower quadrant. GI: Reports lower abdominal pain, upper abdominal pain, bloating, constipation. Historical: - Allergies: 20:09 Toradol; kd3 - PMHx: 20:09 CYSTIC FIBROSIS; ileus; intestinal disorder; kd3 - PSHx: 20:09 1" of intestines removed; Bilateral Inguinal Hernia Repair; kd3 - Immunization history:: Adult Immunizations up to date. - Social history:: Smoking status: unknown. - Family history:: not pertinent. Screenin:35 [facility] ED Fall Risk Assessment (Adult) History of falling in the last 3 months, jb4 including since admission No falls in past 3 months (0 pts) Confusion or Disorientation No (0 pts) Score/Fall Risk Level 0 - 2 = Low Risk Oriented to surroundings, Maintained a safe environment. Abuse screen: Denies threats or abuse. Nutritional screening: No deficits noted. Tuberculosis screening: No symptoms or risk factors identified. Assessment: 21:39 Reassessment: Patient appears in no apparent distress at this time. Patient and/or jb4 family updated on plan of care and expected duration. Pain level reassessed. Patient is alert, oriented x 3, equal unlabored respirations, skin warm/dry/pink. 22:30 Reassessment: Patient appears in no apparent distress at this time. Patient and/or jb4 family updated on plan of care and expected duration. Pain level reassessed. Patient is alert, oriented x 3, equal unlabored respirations, skin warm/dry/pink. 23:30 Reassessment: Patient appears in no apparent distress at this time. Patient and/or jb4 family updated on plan of care and expected duration. Pain level reassessed. Patient is alert, oriented x 3, equal unlabored respirations, skin warm/dry/pink. 04/11 00:30 Reassessment: Patient appears in no apparent distress at this time. Patient and/or jb4 family updated on plan of care and expected duration. Pain level reassessed. Patient is alert, oriented x 3, equal unlabored respirations, skin warm/dry/pink. 01:38 Reassessment: Patient appears in no apparent distress at this time. Patient and/or jb4 family updated on plan of care and expected duration. Pain level reassessed. Patient is alert, oriented x 3, equal unlabored respirations, skin warm/dry/pink. 02:30 Reassessment: Pt resting in bed with eyes closed, respirations are even and unlabored jb4 with no s/s of pain or distress noted. 03:30 Reassessment: Patient appears in no apparent distress at this time. No changes from jb4 previously documented assessment. Patient and/or family updated on plan of care and expected duration. Pain level reassessed. 03:40 Reassessment: Pt reports an increase in pain provider notified, see MAR. navarro Vital Signs: 04/10 20:06 BP 142 / 85; Pulse 64; Resp 19; Temp 98(O); Pulse Ox 100% ; Weight 70.31 kg; Height 6 kd3 ft. 1 in. ; 21:30 BP 98 / 55; Pulse 57; Resp 16; Pulse Ox 100% on R/A; jb4 23:30 BP 108 / 78; Pulse 52; Resp 16; Pulse Ox 99% on R/A; jb4 0703 00:30 BP 109 / 74; Pulse 66; Resp 18; Pulse Ox 100% on R/A; jb4 01:15 BP 112 / 68; Pulse 50; Resp 16; Pulse Ox 99% on R/A; jb4 02:26 BP 93 / 59; Pulse 51; Resp 16; Pulse Ox 98% on R/A; jb4 04:00 BP 120 / 77; Pulse 57; Resp 16; Pulse Ox 99% on R/A; jb4 07 20:06 Body Mass Index 20.45 (70.31 kg, 185.42 cm) kd3 ED Course: 04/10 19:31 Patient arrived in ED. ja2 20:09 Triage completed. kd3 20:09 Arm band placed on right wrist. kd3 20:17 Chris Beltrán MD is Attending Physician. lilia 20:37 XRAY Chest (1 view) In Process Unspecified. EDMS 20:55 Inserted saline lock: 20 gauge in right upper arm, using aseptic technique. Blood as6 collected. ultrasound guided, long catheter. 20:57 Lipase Sent. as6 20:57 Basic Metabolic Panel Sent. as6 20:57 CBC with Diff Sent. as6 20:57 LFT's Sent. as6 20:57 Magnesium Sent. as6 20:57 NT PRO-BNP Sent. as6 20:57 PT-INR Sent. as6 20:57 Troponin HS Sent. as6 22:00 CT Abd/Pelvis - IV Contrast Only In Process Unspecified. EDMS 22:49 Kaity Huitron MD is Hospitalizing Provider. lilia 22:[address] [facility]. I spoke with JAD Woods. 1 23:13 Lactate w/ 2H reflex if indic. Sent. mb9 23:13 Urinalysis w/ reflexes Sent. mb9 23:[address] [facility], Called back to speak with Dr Beltrán for doc ah1 to doc. 23:48 Physician approval from [facility] by Enriqueta Lin. 1 23:54 Shon called back for approval but stated that he couldn't give it until the room for [facility] the patient was clean. Stated that he didn't know how long it would take. 04/11 00:28 Abhinav Regalado RN is Primary Nurse. [facility] 02:[address] [facility] or update on pt's bed. Marcia stated that the bed is still pending [facility] due to clean up. 03:45 Hospital approval from [facility] [address] [place] [address] 2426 by Darrell Barbour RN TC. [facility] 04:00 Contacted [facility]. 30 minute ETA given. [facility] 04:10 Face sheet faxed over to [phone]. [facility] 04:37 No provider procedures requiring assistance completed. Patient transferred, IV remains jb4 in place. Administered Medications: 04/10 21:03 Drug: NS 0.9% IV 1000 ml Route: IV; Rate: 1 bolus; Site: right upper arm; jb4 22:00 Follow up: IV Status: Completed infusion; IV Intake: 1000ml jb4 21:03 Drug: Famotidine IVP 20 mg Route: IVP; Site: right upper arm; jb4 21:30 Follow up: Response: No adverse reaction jb4 21:03 Drug: fentaNYL (PF) IVP 50 mcg Route: IVP; Site: right upper arm; jb4 21:30 Follow up: Response: No adverse reaction; Marked relief of symptoms jb4 21:03 Drug: Ondansetron IVP 4 mg Route: IVP; Site: right upper arm; jb4 21:30 Follow up: Response: No adverse reaction; Marked relief of symptoms jb4 22:13 Drug: Piperacillin-Tazobactam IVPB 3.375 grams Route: IVPB; Infused Over: 60 mins; jb4 Site: right upper arm; 23:13 Follow up: IV Status: Completed infusion; IV Intake: 100ml jb4 23:13 Drug: Dulcolax OR Suppository 10 mg Route: OR; mb9 04/11 00:00 Follow up: Response: No adverse reaction jb4 00:35 Drug: morphine IVP or IV 4 mg Route: IVP; Infused Over: 4 mins; Site: right antecubital;jb4 01:00 Follow up: Response: No adverse reaction; Marked relief of symptoms jb4 04:00 Drug: morphine IVP or IV 4 mg Route: IVP; Infused Over: 4 mins; Site: right antecubital;jb4 04:36 Follow up: Response: No adverse reaction; Marked relief of symptoms jb4 04:00 Drug: Ondansetron IVP 4 mg Route: IVP; Site: right antecubital; jb4 04:35 Follow up: Response: No adverse reaction; Marked relief of symptoms jb4 Intake: 04/10 22:00 IV: 1000ml; Total: 1000ml. jb4 23:13 IV: 100ml; Total: 1100ml. jb4 Output: 04/11 04:31 Urine: 925ml (Voided); Total: 925ml. jb4 Outcome: 04/10 22:51 Decision to Hospitalize by Provider. [facility] 22:57 ER care complete, transfer ordered by . [facility] 04/11 04:36 Transferred by ground EMS [facility] to [facility], Transfer form jb4 completed. X-rays sent w/ patient. Condition: stable Discharge instructions given to patient, Instructed on the need for transfer, Demonstrated understanding of instructions. 04:37 Patient left the ED. jb4 Signatures: Dispatcher [employer] EDChris Jon MD MD cha Bryson, James, RN RN jb4 Oksana Merino Ashby, RN RN as6 Carrie Mann RN RN kd3 Betzy Rodriguez, RN RN mb9 Radha Maxwell
--- NOTE | 2023-04-10 22:53 | EDPHYS ---
Physician Documentation [facility] Name: Matt Robles Age: 47 yrs Sex: Male : 1975 Arrival Date: 04/10/2023 Time: 19:28 Bed 19 Private MD: ED Physician Chris Beltrán HPI: 04/10 21:38 This 47 yrs old Black Male presents to ER via Ambulatory with complaints of Abdominal lilia Pain, Bloated. 21:38 The patient presents with abdominal pain in the upper abdomen, in the lower abdomen, lilia abdominal distention in the upper abdomen, in the lower abdomen. Onset: The symptoms/episode began/occurred 3 day(s) ago. The symptoms do not radiate. Associated signs and symptoms: none. The symptoms are described as crampy. Modifying factors: The symptoms are alleviated by nothing, the symptoms are aggravated by nothing. Severity of pain: At its worst the pain was moderate in the emergency department the pain is unchanged. The patient has experienced similar episodes in the past, a few times. Historical: - Allergies: 20:09 Toradol; kd3 - PMHx: 20:09 CYSTIC FIBROSIS; ileus; intestinal disorder; kd3 - PSHx: 20:09 1" of intestines removed; Bilateral Inguinal Hernia Repair; kd3 - Immunization history:: Adult Immunizations up to date. - Social history:: Smoking status: unknown. - Family history:: not pertinent. ROS: 21:38 Constitutional: Negative for fever, chills, and weight loss, Eyes: Negative for injury, lilia pain, redness, and discharge, ENT: Negative for injury, pain, and discharge, Neck: Negative for injury, pain, and swelling, Cardiovascular: Negative for chest pain, palpitations, and edema, Respiratory: Negative for shortness of breath, cough, wheezing, and pleuritic chest pain, Back: Negative for injury and pain, : Negative for injury, bleeding, discharge, and swelling, MS/Extremity: Negative for injury and deformity, Skin: Negative for injury, rash, and discoloration, Neuro: Negative for headache, weakness, numbness, tingling, and seizure, Psych: Negative for depression, anxiety, suicide ideation, homicidal ideation, and hallucinations, Allergy/Immunology: Negative for hives, rash, and allergies, Endocrine: Negative for neck swelling, polydipsia, polyuria, polyphagia, and marked weight changes, Hematologic/Lymphatic: Negative for swollen nodes, abnormal bleeding, and unusual bruising. 21:38 Abdomen/GI: Positive for abdominal pain, nausea, no bm x 3 days. Exam: 21:38 Constitutional: This is a well developed, well nourished patient who is awake, alert, lilia and in no acute distress. Head/Face: Normocephalic, atraumatic. Eyes: Pupils equal round and reactive to light, extra-ocular motions intact. Lids and lashes normal. Conjunctiva and sclera are non-icteric and not injected. Cornea within normal limits. Periorbital areas with no swelling, redness, or edema. ENT: Nares patent. No nasal discharge, no septal abnormalities noted. Tympanic membranes are normal and external auditory canals are clear. Oropharynx with no redness, swelling, or masses, exudates, or evidence of obstruction, uvula midline. Mucous membranes moist. Neck: Trachea midline, no thyromegaly or masses palpated, and no cervical lymphadenopathy. Supple, full range of motion without nuchal rigidity, or vertebral point tenderness. No Meningismus. Chest/axilla: Normal chest wall appearance and motion. Nontender with no deformity. No lesions are appreciated. Cardiovascular: Regular rate and rhythm with a normal S1 and S2. No gallops, murmurs, or rubs. Normal PMI, no JVD. No pulse deficits. Respiratory: Lungs have equal breath sounds bilaterally, clear to auscultation and percussion. No rales, rhonchi or wheezes noted. No increased work of breathing, no retractions or nasal flaring. Back: No spinal tenderness. No costovertebral tenderness. Full range of motion. Male : Normal genitalia with no discharge or lesions. Skin: Warm, dry with normal turgor. Normal color with no rashes, no lesions, and no evidence of cellulitis. MS/ Extremity: Pulses equal, no cyanosis. Neurovascular intact. Full, normal range of motion. Neuro: Awake and alert, GCS 15, oriented to person, place, time, and situation. Cranial nerves II-XII grossly intact. Motor strength 5/5 in all extremities. Sensory grossly intact. Cerebellar exam normal. Normal gait. Psych: Awake, alert, with orientation to person, place and time. Behavior, mood, and affect are within normal limits. 21:38 ECG was reviewed by the Attending Physician. 21:38 Abdomen/GI: Inspection: distension, that is moderate, that is severe, Bowel sounds: diminished, Palpation: moderate abdominal tenderness, in all quadrants, Liver: no appreciated palpable abnormalities, Hernia: not appreciated. Vital Signs: 20:06 BP 142 / 85; Pulse 64; Resp 19; Temp 98(O); Pulse Ox 100% ; Weight 70.31 kg; Height 6 kd3 ft. 1 in. ; 21:30 BP 98 / 55; Pulse 57; Resp 16; Pulse Ox 100% on R/A; jb4 23:30 BP 108 / 78; Pulse 52; Resp 16; Pulse Ox 99% on R/A; jb4 04/11 00:30 BP 109 / 74; Pulse 66; Resp 18; Pulse Ox 100% on R/A; jb4 01:15 BP 112 / 68; Pulse 50; Resp 16; Pulse Ox 99% on R/A; jb4 02:26 BP 93 / 59; Pulse 51; Resp 16; Pulse Ox 98% on R/A; jb4 04:00 BP 120 / 77; Pulse 57; Resp 16; Pulse Ox 99% on R/A; jb4 04/10 20:06 Body Mass Index 20.45 (70.31 kg, 185.42 cm) kd3 MDM: 04/10 20:17 Patient medically screened. lilia 21:41 Differential diagnosis: diverticulitis, Mesenteric ischemia or infarction, myocardia lilia ischemia or infarction, non-specific abd pain, pancreatitis, Peptic Ulcer Disease, Peritonitis. Data reviewed: vital signs, nurses notes, EMS record, lab test result(s), CBC, electrolytes, hepatic panel, urinalysis, EKG, radiologic studies, CT scan, plain films. Consideration of Admission/Observation Escalation of care including admission/observation considered. I considered the following discharge prescriptions or medication management in the emergency department Medications were administered in the Emergency Department. See MAR. Test considered but Not performed: Ultrasound no abd usg. Care significantly affected by the following chronic conditions: cystic fibrosis. Counseling: I had a detailed discussion with the patient and/or guardian regarding: the historical points, exam findings, and any diagnostic results supporting the discharge/admit diagnosis, lab results, radiology results, the need to transfer to another facility, for higher level of care, [facility] does not immediately have the required specialist. 04/10 20:19 Order name: Basic Metabolic Panel; Complete Time: 21:36 [facility] 04/10 20:19 Order name: CBC with Diff; Complete Time: 21:36 [facility] 04/10 20:19 Order name: LFT's; Complete Time: 21:36 [facility] 04/10 20:19 Order name: Magnesium; Complete Time: 21:36 [facility] 04/10 20:19 Order name: NT PRO-BNP; Complete Time: 21:36 [facility] 04/10 20:19 Order name: PT-INR; Complete Time: 21:36 [facility] 04/10 20:19 Order name: Troponin HS; Complete Time: 21:36 [facility] 04/10 20:19 Order name: Lipase; Complete Time: 21:36 [facility] 04/10 20:19 Order name: Urinalysis w/ reflexes; Complete Time: 23:45 [facility] 04/10 22:49 Order name: Lactate w/ 2H reflex if indic.; Complete Time: 23:45 [facility] 04/10 20:19 Order name: XRAY Chest (1 view); Complete Time: 21:36 [facility] 04/10 20:19 Order name: CT Abd/Pelvis - IV Contrast Only; Complete Time: 23:45 [facility] 04/10 20:19 Order name: EKG; Complete Time: 20:20 [facility] 04/10 20:19 Order name: Cardiac monitoring; Complete Time: 20:45 [facility] 04/10 20:19 Order name: EKG - Nurse/Tech; Complete Time: 20:45 [facility] 04/10 20:19 Order name: IV Saline Lock; Complete Time: 20:57 [facility] 04/10 20:19 Order name: Labs collected and sent; Complete Time: 20:57 [facility] 04/10 20:19 Order name: O2 Per Protocol; Complete Time: 20:45 [facility] 04/10 20:19 Order name: O2 Sat Monitoring; Complete Time: 20:45 [facility] EC:38 Rate is 59 beats/min. Rhythm is regular. QRS [place] is Normal. RI interval is normal. QRS lilia interval is normal. No Q waves. T waves are Normal. No ST changes noted. Clinical impression: Sinus bradycardia and No evidence of ischemia. Interpreted by me. Reviewed by me. Administered Medications: 21:03 Drug: NS 0.9% IV 1000 ml Route: IV; Rate: 1 bolus; Site: right upper arm; jb4 22:00 Follow up: IV Status: Completed infusion; IV Intake: 1000ml jb4 21:03 Drug: Famotidine IVP 20 mg Route: IVP; Site: right upper arm; jb4 21:30 Follow up: Response: No adverse reaction jb4 21:03 Drug: fentaNYL (PF) IVP 50 mcg Route: IVP; Site: right upper arm; jb4 21:30 Follow up: Response: No adverse reaction; Marked relief of symptoms jb4 21:03 Drug: Ondansetron IVP 4 mg Route: IVP; Site: right upper arm; jb4 21:30 Follow up: Response: No adverse reaction; Marked relief of symptoms jb4 22:13 Drug: Piperacillin-Tazobactam IVPB 3.375 grams Route: IVPB; Infused Over: 60 mins; jb4 Site: right upper arm; 23:13 Follow up: IV Status: Completed infusion; IV Intake: 100ml jb4 23:13 Drug: Dulcolax RI Suppository 10 mg Route: RI; mb9 04/11 00:00 Follow up: Response: No adverse reaction jb4 00:35 Drug: morphine IVP or IV 4 mg Route: IVP; Infused Over: 4 mins; Site: right antecubital;jb4 01:00 Follow up: Response: No adverse reaction; Marked relief of symptoms jb4 04:00 Drug: morphine IVP or IV 4 mg Route: IVP; Infused Over: 4 mins; Site: right antecubital;jb4 04:36 Follow up: Response: No adverse reaction; Marked relief of symptoms jb4 04:00 Drug: Ondansetron IVP 4 mg Route: IVP; Site: right antecubital; jb4 04:35 Follow up: Response: No adverse reaction; Marked relief of symptoms jb4 Disposition Summary: 04/10/23 22:57 Transfer Ordered Transfer Location: [facility] lilia Reason: Higher level of care lilia Condition: Fair(04/10/23 22:57) lilia Problem: new(04/10/23 22:57) lilia Symptoms: have improved(04/10/23 22:57) lilia Accepting Physician: to jaciel donis(04/11/23 04:37) jb4 Diagnosis - Cystic fibrosis with other intestinal manifestations(04/10/23 22:57) lilia - Ileus, unspecified - AYDYNAMIC ILEUS(04/10/23 22:57) lilia - Abdominal tenderness lilia Forms: - Medication Reconciliation Form lilia - SBAR form lilia Signatures: Dispatcher [employer] EDChris Jon MD MD cha Bryson, James RN RN jb4 Carrie Mann RN RN kd3 Betzy Rodriguez RN RN mb9 Corrections: (The following items were deleted from the chart) 04/10 22:55 22:51 Inpatient Admission lilia lilia 22:55 22:51 HuitronKaity james lilia lilia 22:55 22:51 Telemetry/MedSurg (Inpatient) lilia lilia 22:55 22:51 Fair lilia lilia 22:55 22:51 new lilia lilia 22:55 22:51 have improved lilia lilia 22:55 22:51 Standard lilia lilia 22:55 22:51 lilia lilia 22:55 22:51 Ileus, unspecified - adynanic ileus lilia lilia 22:55 22:51 Cystic fibrosis with other intestinal manifestations lilia lilia 04/11 04:37 04/10 22:57 to [facility] [place]ilia jb4
[2023-04-10] MEDS ORDERED: BISACODYL 10 MG RECTAL SUPP ONE (23:16)
[2023-04-10 23:35] LABS: Specific Gravity 1.026 (1.005-1.030); Urine Bilirubin NEGATIVE (Negative); Urine Blood Negative (Negative); Urine Clarity Clear (Clear); Urine Color Colorless (Yellow); Urine Glucose NEGATIVE (Negative); Urine Protein NEGATIVE (Negative); Urine Urobilinogen Normal (Normal); Urine pH 5.5 (5.0-7.0)
[2023-04-11] MEDS ORDERED: MORPHINE 4 MG/ML SYR ONE ×2 (00:39→04:02)
[2023-04-11] MEDS ORDERED: ONDANSETRON 4 MG/2 ML VIAL ONE (04:02)
[2023-04-11 05:02] VITALS: TEMP 98
[2023-04-11 05:14] VITALS: BP 120/77; O2SAT 99
--- NOTE | 2023-04-11 19:30 | EKG ---
Test Date: 2023-04-10 Test Time: 20:34:55 Resource Conservationist: PEPE MEASUREMENT RESULTS: Intervals: Rate: 59 CT: 134 QRSD: 112 QT: 398 QTc: 394 [place]: P: 67 CT: 134 QRS: 75 T: 66 INTERPRETIVE STATEMENTS: Sinus bradycardia Otherwise normal ECG Compared to ECG 09/24/2022 01:55:43 Early repolarization no longer present Electronically Signed On 04-11-23 19:28:50 CDT by Redd Flaherty
== END 2023-04-11 04:37 | disposition short-term general hospital (02) ==
LOC: ER 19:28
DX: E84.19 Cystic fibrosis with other intestinal manifestations (principal); K56.0 Paralytic ileus; Z88.5 Allergy status to narcotic agent
CPT/HCPCS: 93005; 85025; 80048; 36415; 83735; 85610; 80076; 83605; 81003; 84484; 83690; 83880; 74177; 71045; 99285; Q9967; J2543; J3010; J2405 ×2; J7030

== ENCOUNTER 2023-05-27 13:55 | Emergency (ER) | payer OTHER ==
--- OUTSIDE RECORDS SUMMARY | 2023-05-27 14:17 | XMS REPORT | Continuity of Care Document ---
:1975 Author Organization [facility] t Address [address] [place] [address] [address] [place] [address] Care Team Providers Name Role Phone Marcin GUERRERO, Radha Hutchison Primary Care Physician HONEY PAINTER Attending Clinician Unavailable AKIN THOMAS Attending Clinician Unavailable Marcin GUERRERO, Radha Hutchison Attending Clinician Shivani Pfeiffer MD Attending Clinician Honey Painter MD Attending Clinician Ramon Tmaez MD Attending Clinician Jone GUERRERO, Sofiya Faith Attending Clinician [phone] Mari GUERRERO, Kari Weeks Attending Clinician [phone] 1 La GUERRERO, Jose Attending Clinician Sharyn Rodriguez MD Attending Clinician SHARYN RODRIGUEZ Attending Clinician Unavailable Phil Arredondo Attending Clinician Martha GUERRERO, Stefano In H Attending Clinician STEFANO BRUMFIELD IN Attending Clinician Unavailable Bud GUERRERO, Jesus Woodard Attending Clinician [phone] Chester GUERRERO, Debi Attending Clinician Khanh GUERRERO, Sandoval Rodríguez Attending Clinician [phone] SANDOVAL LIPSCOMB Attending Clinician Unavailable Rupesh WEST, Oksana Lewis Attending Clinician [phone] DEBI BRIGGS Attending Clinician Unavailable Kamryn GUERRERO, Meredith Arredondo Attending Clinician [phone] Roberth GUERRERO, Chaparro Clay Attending Clinician Larry GUERRERO, Coty Phelan Attending Clinician [phone] Tonny Meneses MD Attending Clinician TONNY MENESES Attending Clinician Unavailable Amor Napier MD Attending Clinician SAUL RAMSEY Attending Clinician Unavailable Jacob Calle DO Attending Clinician Saul Ramsey MD Attending Clinician PRATIK LAYTON Attending Clinician Unavailable Brad Galindo DO Attending Clinician Pratik Layton MD Attending Clinician [phone] PUMA KENT Attending Clinician Unavailable Puma Kent MD Attending Clinician WILLIS GEORGE Attending Clinician Unavailable CHARLENE PEARSON Attending Clinician Unavailable Balwinder Rebolledo MD Attending Clinician [phone] Charlene Pearson MD Attending Clinician SAMMI CABELLO Attending Clinician Unavailable RADHA BURCH Attending Clinician Unavailable ELIGIO ROSENTHAL Attending Clinician Unavailable AMOR NAPIER Attending Clinician Unavailable CYN RECINOS Attending Clinician Unavailable Shannon Momin DO Attending Clinician SHANNON MOMIN Attending Clinician Unavailable COTY ELENA Attending Clinician Unavailable JESUS EWING Attending Clinician Unavailable BRYSON ZAUZETA Attending Clinician Unavailable DEANDRA ACUÑA Attending Clinician Unavailable RAMAN PANTOJA Attending Clinician Unavailable SHEEBA MOORE Attending Clinician Unavailable CESARIO SOUSA Attending Clinician Unavailable ERICK NO Attending Clinician Unavailable MILAGRO JAMES Attending Clinician Unavailable MIAN SOTELO Attending Clinician Unavailable VIAJY LOGAN Attending Clinician Unavailable CYN CASILLAS Attending Clinician Unavailable HONEY PAINTER Admitting Clinician Unavailable JOSE ARANA Admitting Clinician Unavailable STEFANO BRUMFIELD Admitting Clinician Unavailable SANDOVAL LIPSCOMB Admitting Clinician Unavailable CHAPARRO FARAH Admitting Clinician Unavailable MIGUEL CURIEL Admitting Clinician Unavailable PRATIK LAYTON Admitting Clinician [...] Policy Number Effective Date Expiration Date Dianne COSTA COMM STAR [id number] 2021 PLAN 00:00:00 MEDICAID OF [place] [id number] 2021 00:00:00 MEDICARE A B [id number] 2020 00:00:00 CDC REVIEW [id number] 2020 00:00:00 Problems Condition Condition Condition Status Onset Resolution Last Treating Co mments Source Name Details Category Date Date Treatment Clinician Date LIONEL LIONEL Disease Recurre [facility] ([facility]al ([facility] n[facility]03 [facility] intestinal intestinal 00:00: Me dical obstructio obstructio 00 Ce nter n n syndrome) syndrome) Constipati Constipati Disease Active [facility] on 5-14 [facility] 00:[facility]: Medical 00 [place] Ileus Ileus Disease Recurre 2021-[address] [facility] nce 2-16 [facility] 00:00: Medical 00 [place] Enterocoli Enterocoli Disease Active [facility] tis tis 2-18 [facility] 00 Center 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 2-16 [facility] y with y with 00:00: Medical colonic colonic 00 Center stricture stricture Generalize Generalize Disease Active 2020-[address] d d 0-23 [facility] abdominal abdominal 00:00: Medi jf pain pain 00 Center Bowel Bowel [...] 00:00: Medical 00 Center Distal Distal Disease Active [facility] intestinal intestinal 8-29 [facility] obstructio obstructio 00:00: Me dical n syndrome n syndrome 00 Ce nter Acute Acute Disease Active [facility] abdominal abdominal 7-29 [facility] pain pain 00:00: Medical 00 Center Bilateral Bilateral Disease Active [facility] renal renal 7-09 [facility] stones stones 00:00: Medical 00 [place] Hydrourete Hydrourete Disease Active [facility] r, left r, left 04-17 [facility] 00:[facility]: Medical 00 [place] Hydronephr Hydronephr Disease Active [facility] osis with osis with 04-17 [facility] ureteropel ureteropel 00:00: Me dical angel angel 00 Center junction junction (UPJ) (UPJ) obstructio obstructio n n Acute left Acute left Disease Active [facility] flank pain flank pain 04-17 Bere kes 00:00: Medical 00 [place] Gastrointe Gastrointe Disease Active [facility] stinal stinal 8- [facility] dysmotilit dysmotilit 00:00: Me dical y y 00 Center Hyponatrem Hyponatrem Disease Active [facility] ia ia 6-15 [facility] 00:[facility]: Medical 00 [place] Bronchiect Bronchiect Disease Recurre [facility] asis asis nce 6-13 [facility] 00:[facility]: Medical 00 [place] MATHEW (acute MATHEW (acute Disease Active [facility] kidney kidney 6-13 [facility] injury) injury) 00:00: Medical 00 Center Hyponatrem Hyponatrem Disease Active [facility] ia ia 6-13 [facility] 00:[facility]: Medical 00 Center Other Other Disease Recurre [facility] constipati constipati nce 1-17 [facility] on on 00:00: Medical 00 [place] Partial Partial Disease Recurre 2017-[address] [facility] [...] fibrosis nce 9-20 [facility] 00:00: Medical 00 [place] No known No known Disease Unive rs active active ity of problems problems [facility] Abdominal Abdominal Disease Resolve 2022-09-26 2022-09-[address] [facility] distention distention d 5-13 00:00:00 07:23:26 [facility] Center LIONEL LIONEL Disease Resolve 2017-2022-09-24 2022-09-[address] (distal [...] ity of adverse 00:00: [place] reaction 00 Medical s Branch [place] DRUG Active Hives [facility] INGREDI 10-18 ity of 00:00: [place] 00 Medical Branch Ket[place] Drug Active Hives [facility] c Allergy 04-17 [facility] 00:[facility]: Medical 00 Center KET[place] Allergy Active High Hives [facility] C 04-17 [facility] 00:00: Medical 00 Center No Known DA Active [facility] Allergie [address] [place] [facility] 00:00: d 00 Medical Center NO KNOWN Allergy Active [facility]ERG[facility] S Family History Family Member Diagnosis Comments Start Date Stop Date Source Natural brother Cystic fibrosis [facility] Natural father Heart disease [facility] Natural mother Lupus [facility] Social History Social Habit Start Date Stop Date Quantity Comments Source History [facility] Transport Non-Med Medical Center Alcohol intake 2023-02-20 2023-02-20 Current [facility] es 00:00:00 00:00:00 non-drinker of Medical Ce nter alcohol (finding) History [facility] 2022-09-08 2022-09-[address] [facility] Transport Med 00:00:00 00:00:[address] [facility] 2022-09-08 2022-09-[address] [facility] [address] [facility] Unable to 00:00:00 00:00:00 Medical Center Pay History [facility] 2022-09-08 2022-09-08 [address] [facility] [address] [employer] Housing Places 00:00:00 00:00:00 Medical Ce nter Lived History [facility] 2022-09-08 2022-09-[address] [facility] [facility] Housing Homeless 00:00:00 00:00:00 Medical Center Last Year Exposure to 2022-08-27 2022-09-[address] [facility] [address] [facility] SARS-CoV-2 (event) 00:00:00 20:59:00 [facility] Tobacco use and 2018-06-29 2018-06-29 [address]eless [address] [facility] exposure 00:00:00 00:00:00 non-user [facility] Center Sex Assigned At 1975 [address] [facility] [address] Bere moodys 00:00:00 00:00:00 Medical Center Smoking Status Start Date Stop Date Source Unknown if ever smoked [facility] Never smoked tobacco [facility] Medications Ordered Filled Start Stop Current Ordering Indication Dosage Frequency Signature Comments Components Source Medication Medication Date Date Medication? Clinician (SIG) Name Name pedi Yes 1{capsu Q.5D Take [address] [facility] [address] multivit 7-08 le} capsule by [facility] 22/vit 17:06: mouth 2 Medical D3/vit K 46 (two) Center (MVW times COMPLETE daily. FORMULATION D5000 ORAL) pedi Yes 1{capsu Q.5D Take [address] [address] multivit 7-08 le} capsule by [facility] 22/vit 17:06: mouth 2 Medical D3/vit K 46 (two) Center (MVW times COMPLETE daily. FORMULATION D5000 ORAL) pedi Yes 1{capsu Q.5D Take [address] [address] multivit 7-08 le} capsule by [facility] 22/vit 17:06: mouth 2 Medical D3/vit K 46 (two) Center (MVW times COMPLETE daily. FORMULATION D5000 ORAL) tobramycin, Yes 300mg Q.5D Take [address] [facility] [address] PF, (LAVON) 7-08 (300 mg [facility] 300 mg/5 mL 00:00: total) by M edical nebulizer 00 nebulizati Cent er solution on 2 (two) times daily One month on, one month off. tobramycin, Yes 300mg Q.5D Take [address] [facility] [address] PF, (LAVON) 7-08 (300 mg [facility] 300 mg/5 mL 00:00: total) by M edical nebulizer 00 [address]bul[address] er solution on 2 (two) times daily One month on, one month off. tobramycin, 2022- Yes 300mg Q.5D Take [address] [facility] [address] PF, (LAVON) 7-08 (300 mg [facility] 300 mg/5 mL 00:00: total) by Enriqueta velazquez nebulizer [address] er solution on 2 (two) times daily One month on, one month off. hydrocortis 2022-0 2023- No Q.5D Place [facility] one - 07-18 rectally 2 [facility] (ANUSOL-HC) 00:00: 23:59 (two) Medi jf 2.5 % 00 :00 times Center rectal daily for cream 10 days. hydrocortis 2022-0 3- No Q.5D Place [facility] one 04-16 07-18 rectally 2 [facility] (ANUSOL-HC) 00:00: 23:59 (two) Medi jf 2.5 % 00 :00 times Center rectal daily for cream 10 days. hydrocortis 2022-0 2023- No Q.5D Place [facility] one 04-16 07-18 rectally 2 [facility] (ANUSOL-HC) 00:00: 23:59 (two) Medi jf 2.5 % 00 :00 times Center rectal daily for cream 10 days. albuterol 2022-0 2022- No 2.5mg Q.5D Take [address] [address] (PROVENTIL) -29 03-19 (2.5 mg [facility] 2.5 mg /3 00:00: 23:59 total) by Me dical mL (0.083 00 :00 ne[address] er %) on in the nebulizer morning solution and 3 mLs (2.5 mg total) before bedtime. Do all this for 30 days. albuterol 2022-0 2022- No 2.5mg Q.5D Take [address] [address] (PROVENTIL) 5-20 06-19 (2.5 mg [facility] 2.5 mg /3 00:00: 23:59 total) by Me dical mL (0.083 00 :[address] er %) on in the nebulizer morning solution and 3 mLs (2.5 mg total) before bedtime. Do all this for 30 days. albuterol 2022-0 2022- No 2.5mg Q.5D Take [address] [address] (PROVENTIL) 5-20 06-19 (2.5 mg [facility] 2.5 mg /3 00:00: 23:59 total) by Me dical mL (0.083 00 :[address] er %) on in the nebulizer morning solution and 3 mLs (2.5 mg total) before bedtime. Do all this for 30 days. albuterol 3-0 Yes 2.5mg Q.5D Inhale [address] [address] (PROVENTIL) 5-17 mLs (2.5 [facility] 2.5 mg /3 00:00: mg total) Med ical mL (0.083 00 by mouth Center %) via nebulizer inhaler 2 solution (two) times daily. albuterol 3-0 Yes 2.5mg Q.5D Inhale [address] [address] (PROVENTIL) 5-17 mLs (2.5 [facility] 2.5 mg /3 00:00: mg total) Med ical mL (0.083 00 by mouth Center %) via nebulizer inhaler 2 solution (two) times daily. albuterol 3-0 Yes 2.5mg Q.5D Inhale [address] (PROVENTIL) 5-17 mLs (2.5 [facility] 2.5 mg /3 00:00: mg total) Med ical mL (0.083 00 by mouth Center %) via nebulizer inhaler 2 solution (two) times daily. pedi 2021-10 Yes 1{capsu Q.5D Take [...] daily as needed (severe constipati on). polyethylen 2022-1 2022- No 17g Q.25D Take 17 g [facility] [...] 14:02: 00:00 daily. Medica l 54 :00 [facility] 2021-10- No 50mg Q.5D Take [address] (Ibsrela) 11-12 by mouth 2 Arm[facility] es 50 mg Tab 14:02: 00:00 (two) Medica l 54 :00 times Center daily. plecanatide 2021-10- No 3mg QD Take [address] (Trulance) 11-12 by mouth [facility] 3 mg Tab 14:02: 00:00 daily. Medica l 54 :00 [facility] 2021-10 No 50mg Q.5D Take [address] (Ibsrela) 11-12 by mouth 2 Armando es 50 mg Tab 14:02: 00:00 (two) Medica l 54 :00 times Center daily. plecanatide 2021-10- No 3mg QD Take [address] (Trulance) 11-12 by mouth [facility] 3 mg Tab 14:02: 00:00 daily. Medica l 54 :00 [facility] 2021-10 No 50mg Q.5D Take [address] (Ibsrela) 11-12 by mouth 2 Armando es 50 mg Tab 14:02: 00:00 (two) Medica l 54 :00 times Center daily. plecanatide 2021-10- No 3mg QD Take [address] (Trulance) 11-12 by mouth Luke s 3 mg Tab 14:02: 00:00 daily. Medica l 54 :00 [facility] 2021-10- No 50mg Q.5D Take [address] (Ibsrela) 11-12 by mouth 2 [facility] es 50 mg Tab 14:02: 00:00 (two) Medica l 54 :00 times Center daily. plecanatide 2021-10- No 3mg QD Take [address] (Trulance) 11-12 by mouth Luke s 3 mg Tab 14:02: 00:00 daily. Medica l 54 :00 Center [facility] 2021-10- No 50mg Q.5D Take [address] (Ibsrela) 11-12 by mouth 2 Armando es 50 mg Tab 14:02: 00:00 (two) Medica l 54 :00 times Center daily. plecanatide 2021-10 No 3mg QD Take [address] [address] (Trulance) 11-12 by mouth Luke s 3 mg Tab 14:02: 00:00 daily. Medica l 54 :00 [facility] 2021-10 No 50mg Q.5D Take [address] (Ibsrela) 11-12 by mouth 2 [facility] es 50 mg Tab 14:02: 00:00 (two) Medica l 54 :00 times Center daily. plecanatide 2021-10 No 3mg QD Take [address] [address] (Trulance) 11-12 by mouth Luke s 3 mg Tab 14:02: 00:00 daily. Medica l 54 :00 [facility] 2021-10 No 50mg Q.5D Take [address] (Ibsrela) 11-12 by mouth 2 Arm[facility] es 50 mg Tab 14:02: 00:00 (two) Medica l 54 :00 times Center daily. plecanatide 2021-10 No 3mg QD Take [address] [address] (Trulance) 11-12 by mouth [facility] 3 mg Tab 14:02: 00:00 daily. Medica l 54 :00 Center [facility] 2021-10- No 50mg Q.5D Take [address] (Ibsrela) 11-12 by mouth 2 Armando es 50 mg Tab 14:02: 00:00 (two) Medica l 54 :00 times Center daily. plecanatide 2021-10 No 3mg QD Take [address] (Trulance) 2- 12-03 by mouth [facility] 3 mg Tab 14:02: 00:00 daily. Medica l 54 :00 Center [facility] 2021-10 No 50mg Q.5D Take [address] (Ibsrela) 2- 12-03 by mouth 2 [facility] es 50 mg Tab 14:02: 00:00 (two) Medica l 54 :00 times Center daily. plecanatide 2021-10 No 3mg QD Take [address] (Trulance) 2- 12-03 by mouth [facility] 3 mg Tab 14:02: 00:00 daily. Medica l 54 :00 Center [facility] 2021-10 No 50mg Q.5D Take [address] (Ibsrela) 2- 12-03 by mouth 2 [facility] es 50 mg Tab 14:02: 00:00 (two) Medica l 54 :00 times Center daily. [facility] 2021-10 Yes 50mg Q.5D Take [address] (Ibsrela) 2-03 by mouth 2 [facility] 50 mg Tab 00:00: (two) Medical 00 times Center daily. plecanatide 2021-10 Yes 3mg QD Take [address] (Trulance) 2-03 by mouth [facility] 3 mg Tab 00:00: daily. [address] 2021-10 Yes 50mg Q.5D Take [address] (Ibsrela) 2-03 by mouth 2 [facility] 50 mg Tab 00:00: (two) Medical 00 times Center daily. plecanatide 2021-10 Yes 3mg QD Take [address] (Trulance) 2-03 by mouth [facility] 3 mg Tab 00:00: daily. [address] 2021-10 Yes 50mg Q.5D Take [address] (Ibsrela) 2-03 by mouth 2 [facility] 50 mg Tab 00:00: (two) Medical 00 times Center daily. plecanatide 2021-10 Yes 3mg QD Take [address] (Trulance) 2-03 by mouth [facility] 3 mg Tab 00:00: daily. [address] 2021-10 Yes 50mg Q.5D Take [address] (Ibsrela) 2-03 by mouth 2 [facility] 50 mg Tab 00:00: (two) [place] [address] times [place] daily. plecanatide 2021-10 Yes 3mg QD Take [address] (Trulance) 2-03 by mouth [facility] 3 mg Tab 00:00: daily. [address] 2021-10 Yes 50mg Q.5D Take [address] (Ibsrela) 2-03 by mouth 2 [facility] 50 mg Tab 00:00: (two) [address] daily[address] plecanatide 2021-10 Yes 3mg QD Take [address] (Trulance) 2-03 by mouth [facility] 3 mg Tab 00:00: daily. [address] 2021-10 Yes 50mg Q.5D Take [address] (Ibsrela) 2-03 by mouth 2 [facility] 50 mg Tab 00:00: (two) [address] daily. plecanatide 2021-10 Yes 3mg QD Take [address] (Trulance) 2-03 by mouth [facility] 3 mg Tab 00:00: daily. [address] 2021-10 Yes 50mg Q.5D Take [address] (Ibsrela) 2-03 by mouth 2 [facility] 50 mg Tab 00:00: (two) [address] daily[address] plecanatide 2021-10 Yes 3mg QD Take [address] (Trulance) 2-03 by mouth [facility] 3 mg Tab 00:00: daily. [address] 2021-10 Yes 50mg Q.5D Take [address] (Ibsrela) 2-03 by mouth 2 [facility] 50 mg Tab 00:00: (two) [address] daily. plecanatide 2021-10 Yes 3mg QD Take [address] (Trulance) 2-03 by mouth [facility] 3 mg Tab 00:00: daily. [address] plecanatide 2021-10- No 3mg QD Take [address] [facility] [address] (Trulance) 2-03 07-03 by mouth [facility] 3 mg Tab 00:00: 00:00 daily. Medica l 00 :00 Center plecanatide 2021-10- No 3mg QD Take [address] (Trulance) 11-12 by mouth [facility] 3 mg Tab 00:00: 00:00 daily. Medica l 00 :00 Center plecanatide 2021-10- No 3mg QD Take [address] (Trulance) 11-12 by mouth [facility] 3 mg Tab 00:00: 00:00 daily. Medica l 00 :00 Center tenapanor 2021-10 No 50mg Q.5D Take [address] (Ibsrela) 11-1214 by mouth 2 [facility] es 50 mg Tab 00:00: 00:00 (two) Medica l 00 :00 times Center daily. tenapanor 2021-10- No 50mg Q.5D Take [address] (Ibsrela) 11-1214 by mouth 2 [facility] es 50 mg Tab 00:00: 00:00 (two) Medica l 00 :00 times Center daily. tenapanor 2021-10- No 50mg Q.5D Take [address] (Ibsrela) 11-12-14 by mouth 2 [facility] es 50 mg Tab 00:00: 00:00 (two) Medica l 00 :00 times Center daily. polyethylen 2021-10 Yes 17g Q.25D Take [...] mg Tab 20:27: daily. Medical 39 Center tenapanor 2021-10 Yes 50mg Q.5D Take [...] e glycol 9-18 09-18 mLs by [facility]la (GoLYTELY,N 00:00: 23:59 mouth once Medical uLYTELY) 00 :00 for 1 Center 236-22.74-6 dose. .74 -5.86 gram solution polyethylen 2022-0 2022- No 4000mL Take 4,[address] e glycol 9-18 09-18 mLs by [facility] (GoLYTELY,N 00:00: 23:59 mouth once Medical uLYTELY) 00 :00 for 1 Center [id number] dose. .74 -5.86 gram solution polyethylen 2022-0 2022- No 4000mL Take 4,[address] e glycol 9-18 09-18 mLs by [facility] (GoLYTELY,N 00:00: 23:59 mouth once Medical uLYTELY) [...] St e glycol 3-01 mLs by [facility] (Latesha,N 00:00: mouth as Me dical uLYTELY) 00 needed Center [id number] (constipat .74 -5.86 ion). gram solution prucaloprid 2021-0 Yes 2mg QD Take [address] e 2 mg Tab 3-01 by mouth [facility] 00:00: daily. Medical 00 Center prucaloprid 2021-0 2022- No 2mg QD Take [address] [facility] e 2 mg Tab 3-01 -29 by mouth [facility] s 00:00: 00:00 daily. Medical 00 :00 Center prucaloprid 2022-0 2022- No 2mg QD Take [address] [facility] e 2 mg Tab 3-01 -29 by mouth [facility] s 00:00: 00:00 daily. Medical 00 :00 Center prucaloprid 2022-0 2022- No 2mg QD Take [address] e 2 mg Tab 3-01 -29 by mouth [facility] s 00:00: 00:00 daily. Medical 00 :00 [place] prucaloprid 2021-0 2022- No 2mg QD Take [address] [facility] e 2 mg Tab 12-08 by mouth [facility] s 00:00: 00:00 daily. Medical 00 :00 [place] prucaloprid 2021-0 2022- No 2mg QD Take [address] [facility] e 2 mg Tab 12-08 by mouth Luke s 00:00: 00:00 daily. Medical 00 :00 [place] prucaloprid 2021-0 2022- No 2mg QD Take [address] [facility] e 2 mg Tab 12-08 by mouth Luke s 00:00: 00:00 daily. Medical 00 :00 [place] prucaloprid 2021-0 2022- No 2mg QD Take [address] [facility] e 2 mg Tab 12-08 by mouth Luke s 00:00: 00:00 daily. Medical 00 :00 [place] prucaloprid 2021-0 2022- No 2mg QD Take [address] [facility] e 2 mg Tab 12-08 by mouth Luke s 00:00: 00:00 daily. Medical 00 :00 [place] prucaloprid 2021-0 2- No 2mg QD Take [address] [facility] e 2 mg Tab 12-08 by mouth Luke s 00:00: 00:00 daily. Medical 00 :00 [place] prucaloprid 2021-0 2022- No 2mg QD Take [address] e 2 mg Tab 12-08 by mouth Luke s 00:00: 00:00 daily. Medical 00 :00 [place] prucaloprid 2021-0 2022- No 2mg QD Take [address] [facility] e 2 mg Tab 12-08 by mouth Luke s 00:00: 00:00 daily. Medical 00 :00 [place] prucaloprid 2021-0 2022- No 2mg QD Take [address] e 2 mg Tab 12-08 by mouth Luke s 00:00: 00:00 daily. Medical 00 :00 [place] polyethylen 2021-0 2021- No 4000mL Take 4,[address] e glycol 12-08 09-18 mLs by [facility] (GoLYTELY,N 00:00: 00:00 [...] e glycol 3-01 09-18 mLs by [facility] (GoLYTELY,N 00:00: 00:00 mouth as M edical [...] St e glycol 2-28 03-01 mLs by [facility] (SmithaYTELY,N 00:00: 00:00 mouth [...] e glycol 2- 03- mLs by [facility] (Latesha,N 00:00: 00:00 mouth as M edical uLYTELY) 00 :00 needed [place] [id number] (constipat .74 -5.86 ion). gram solution prucaloprid 2022-0 2022- No 2mg QD Take [address] [facility] e 2 mg Tab 2-04 01- by mouth [facility] s 00:00: 00:00 daily. Medical 00 :00 Center polyethylen 2022-0 2022- No 4000mL Take 4,[address] e glycol 2- 03- mLs by [facility] (Latesha,N 00:00: 00:00 mouth as M edical uLYTELY) 00 :00 needed [place] 236-22.74-6 (constipat .74 -5.86 ion). gram solution prucaloprid 2022-0 2022- No 2mg QD Take [address] e 2 mg Tab -04 01- by mouth [facility] s 00:00: 00:00 daily. Medical 00 :00 Center polyethylen 2022-0 2022- No 4000mL Take 4,[address] e glycol 2- 03- mLs by [facility] (Latesha,N 00:00: 00:00 mouth as M edical uLYTELY) 00 :00 needed [place] 236-22.74-6 (constipat .74 -5.86 ion). gram solution prucaloprid 2022-0 2022- No 2mg QD Take [address] e 2 mg Tab 2-04 01- by mouth [facility] s 00:00: 00:00 daily. Medical 00 :00 Center polyethylen 2022-0 2022- No 4000mL Take 4,[address] e glycol 2- 03- mLs by [facility] (Latesha,N 00:00: 00:00 mouth as M edical uLYTELY) 00 :00 needed [place] 236-22.74-6 (constipat .74 -5.86 ion). gram solution prucaloprid 2021- No 2mg QD Take [address] e 2 mg Tab -04 01- by mouth [facility] s 00:00: 00:00 daily. Medical 00 :00 [place] polyethylen 2021- No 4000mL Take 4,[address] e glycol 12-07- mLs by [facility] (GoLYTELY,N 00:00: 00:00 mouth as caroline GuzmanYTELY) 00 :00 needed [place] [id number] (constipat .74 -5.86 ion). gram solution prucaloprid 2021- No 2mg QD Take [address] e 2 mg Tab 12-07- by mouth [facility] s 00:00: 00:00 daily. Medical 00 :00 [place] multivitami 2022- No 1{tbl} QD Take [address] n 2-23 02-23 tablet by [facility] (THERAGRAN) 00:00: 23:59 mouth Medi jf tablet 00 :00 daily. [place] multivitami 2021- No 1{tbl} QD Take [address] n 2-23 11-29 tablet by [facility] (THERAGRAN) 00:00: 00:00 mouth Medi jf tablet 00 :00 daily. [place] multivitami 2021- No 1{tbl} QD Take [address] n 2-23 11-29 tablet by [facility] (THERAGRAN) 00:00: 00:00 mouth Medi jf tablet 00 :00 daily. [place] multivitami 2021- No 1{tbl} QD Take [address] n 2-23 11-29 tablet by [facility] (THERAGRAN) 00:00: 00:00 mouth Medi jf tablet 00 :00 daily. [place] multivitami 2021-2021- No 1{tbl} QD Take [address] n 2-23 11-29 tablet by [facility] (THERAGRAN) 00:00: 00:00 mouth Medi jf tablet 00 :00 daily. [place] multivitami 2021- No 1{tbl} QD Take [address] n 2-23 11-29 tablet by [facility] (THERAvotronics PowertrainAN) 00:00: 00:00 mouth Medi jf tablet 00 :00 daily. [place] multivitami 2021- No 1{tbl} QD Take [address] n 2-23 -29 tablet by LuKIHEITAI (THERAvotronics PowertrainAN) 00:00: 00:00 mouth Medi jf tablet 00 :00 daily. [place] multivitami 2021- No 1{tbl} QD Take [address] n 2-23 -29 tablet by LuKIHEITAI (TagbrandAN) 00:00: 00:00 mouth Medi jf tablet 00 :00 daily. [place] multivitami 2021- No 1{tbl} QD Take [address] n 2-23 -29 tablet by LuKIHEITAI (TagbrandAN) 00:00: 00:00 mouth Medi jf tablet 00 :00 daily. [place] multivitami 2021- No 1{tbl} QD Take [address] n 2-23 -29 tablet by LuKIHEITAI (TagbrandAN) 00:00: 00:00 mouth Medi jf tablet 00 :00 daily. [place] multivitami 2021- No 1{tbl} QD Take [address] n 2-23 -29 tablet by LuKIHEITAI (TagbrandAN) 00:00: 00:00 mouth Medi jf tablet 00 :00 daily. [place] multivitami 2021- No 1{tbl} QD Take [address] n 2-23 -29 tablet by LuKIHEITAI (THERAGRAN) 00:00: 00:00 mouth Medi jf tablet 00 :00 daily. [place] multivitami 2021- No 1{tbl} QD Take [address] n 2-23 -29 tablet by LuKIHEITAI (THERAGRAN) 00:00: 00:00 mouth Medi jf tablet 00 :00 daily. [place] lubiproston Yes 72ug Q.5D Take 3 [facility] [...] 5mg Take [address] mg Tab -29 tablet (5 [facility] tablet 00:00: 00:00 mg total) Medic al 00 :00 by mouth Center every night as needed (sleep). lubiproston 2020-10- No 72ug Q.5D Take 3 [...] mouth 2 (two) times daily. [place]ipro[place] 2020-10 72ug Q.5D Take 3 [facility] [...] 2020-[address] [facility] 0- 11-07 rectally 2 [facility] (ANUSOL-HC) 00:00: 23:59 (two) Medi jf 2.5 % 00 :00 times Center rectal daily for cream 10 days for rectal pain. magnesium 202-0 2022- No 400mg Q.5D Take [...] 2 magnesium) (two) tablet times daily. polyethylen 202-0 2022- No 34g Q.25D Take [address] e glycol 7-04 15-07 by mouth 4 [facility] (GLYCOLAX) 00:00: 23:59 (four) Medi jf 17 gram 00 :00 times Center packet daily. magnesium 2020-0 2022- No 400mg Q.5D Take [address] oxide 7-04 15- tablet [facility] (MAG-OX) 00:00: 23:59 (400 mg Medic al 400 mg 00 :00 total) by Center (241.3 mg mouth 2 magnesium) (two) tablet times daily. polyethylen 2020-0 202- No 34g Q.25D Take [address] e glycol -04 15-07 by mouth 4 [facility] (GLYCOLAX) 00:00: 23:59 (four) Medi jf 17 gram 00 :00 times Center packet daily. magnesium 2020-0 2021- No 400mg Q.5D Take [address] oxide 7- tablet [facility] (MAG-OX) 00:00: 23:59 (400 mg Medic al 400 mg 00 :00 total) by Center (241.3 mg mouth 2 magnesium) (two) tablet times daily. polyethylen 2020-0 202- No 34g Q.25D Take 34 g [facility] [...] magnesium) (two) tablet times daily. polyethylen 2020-0 202- No 34g Q.25D Take 34 g [facility] [...] No 4mg 4 mg, Slow Univers (ZOFRAN 1-10 01-10 IV Push, ity of (PF)) 08:00: [...] No 120mL 120 mL, Unive rs (OMNIPAQUE 1-10 01-10 Intravenou it y of 350 04:15: 03:58 s, ONCE, 1 [place] BULK-100 00 :00 dose, Sat Medica l mL) 10/18/20 at Branch injection 2215, 120 mL Routine NaCl 0.9% 0 2020- No 1000mL at 999 Uni vers [...] I St -tezacaftor 6-11 tablets by Bere Adhikariivkylie 00:00: mouth Medical (TRIKAFTA) 00 Every Center 100-50-75 morning mg(d) /150 and one in mg (n) TbSQ evening. elexacaftor 2020-0 Yes 2{tbl} Take [address] -tezacaftor 6-11 tablets by Bere Adhikariivkylie 00:00: mouth Medical 100-50-75 00 Every Center mg(d) /150 morning mg (n) TbSQ and one in evening. elexacaftor 2020-0 Yes 2{tbl} Take [address] -tezacaftor 6-11 tablets by Bere Adhikariivkylie 00:00: mouth Medical 100-50-75 00 Every Center mg(d) /150 morning mg (n) TbSQ and one in evening. elexacaftor 2020-0 Yes 2{tbl} QD Take [address] -tezacaftor 6-11 tablets by Bere crespo 00:00: mouth Medical (TRIKAFTA) 00 every Center 100-50-75 evening mg(d) /150 Take As mg (n) TbSQ directed by elexacaftor 2019-0 Yes 2{tbl} Take [address] -tezacaftor 6-11 tablets by Bere Adhikariivkylie 00:00: mouth Medical (TRIKAFTA) 00 Every Center 100-50-75 morning mg(d) /150 and one in mg (n) TbSQ evening. elexacaftor 2020-0 Yes 2{tbl} Take [address] -tezacaftor 6-11 tablets by Bere Adhikariivkylie 00:00: mouth Medical (TRIKAFTA) 00 Every Center 100-50-75 morning mg(d) /150 and one in mg (n) TbSQ evening. elexacaftor 2020-0 Yes 2{tbl} Take [address] -tezacaftor 6-11 tablets by Bere Adhikariivkylie 00:00: mouth Medical (TRIKAFTA) 00 Every Center [...] St -tezacaftor 6-11 tablets by Bere valdivia -ivkylie 00:00: mouth Medical (TRIKAFTA) 00 Every Center 100-50-75 morning mg(d) /150 and one in mg (n) TbSQ evening. elexacaftor 2020-0 Yes 2{tbl} Take [address] -tezacaftor 6-11 tablets by Bere valdivia -ivacasanford 00:00: mouth Medical 100-50-75 00 Every Center mg(d) /150 morning mg (n) TbSQ and one in evening. pediatric 2018- Yes 1{capsu QD Take [address] multivit 2-06 le} capsule by Tayla 61-D3-vit K 00:00: mouth Medic al (MVW 00 daily. Center COMPLETE FORMULATION D5000) 5,000-800 unit-mcg Cap pediatric 2017-10- No 1{capsu QD Take [address] multivit 2-06 11-29 le} capsule by John cleaning 61-D3-vit K [...] hypertonic, 00:00: times Medic al (HYPER-CHELSEA) 00 daily. Center 7 % nebulizer solution sodium 2017-10 Yes 4mL Q.5D [address] [facility] [address] chloride, - (two) [facility] hypertonic, 00:00: times Medic al (HYPER-CHELSEA) 00 daily. [place] 7 % nebulizer solution sodium 2017-10 Yes [...] hypertonic, 00:00: times Medic al (HYPER-CHELSEA) 00 daily. Center 7 % nebulizer solution albuterol Yes 2.5mg [...] before meals. 1-2 tablets with snacks . lipase-prot Yes 1{capsu Take [address] ease-amylas 9-23 le} capsule by eBre kes e (CREON) 00:00: mouth 3 Medic al 36,000-114, 00 (three) Cente r 000- times 180,000 daily with unit CpDR meals 3 capsule tablets before meals. 1-2 tablets with snacks . lipase-prot Yes 1{capsu Take 1 C [...] St ease-amylas 9-23 le} capsule by Bere hediys e (CREON) 00:00: mouth 3 Medic al [...] before meals. 1-2 tablets with snacks . lipase-prot Yes 1{capsu Take [address] ease-amylas 9-23 le} capsule by Bere kes e (CREON) 00:00: mouth 3 Medic al 36,000-114, 00 (three) Cente r 000- times 180,000 daily with unit CpDR meals 3 capsule tablets before meals. 1-2 tablets with snacks . tobramycin, 2022- No 300mg Q.5D Take [address] [address] PF, (LAVON) 9-23 07-03 (300 mg [facility] 300 mg/5 mL 00:00: 00:00 total) by Medical nebulizer 00 :00 nebul[address] er solution on 2 (two) times daily 21days on . tobramycin, 2022- No 300mg Q.5D Take [address] PF, (LAVON) 07-02 (300 mg [facility] 300 mg/5 mL 00:00: 00:00 total) by Medical nebulizer 00 :00 ne[address] er solution on 2 (two) times daily 21days on . tobramycin, 2022- No 300mg Q.5D Take [address] PF, (LAVON) 07-02 (300 mg [facility] 300 mg/5 mL 00:00: 00:00 total) by Medical nebulizer 00 :[address] er solution on 2 (two) times daily 21days on . albuterol 2022- No 2.5mg Take [address] (PROVENTIL) 07-02 05-20 (2.5 mg Luke s 2.5 mg /3 00:00: 00:00 total) by Me dical mL (0.083 00 :[address] er %) on every 6 nebulizer (six) solution hours as needed for Wheezing. albuterol 2022- No 2.5mg Take [address] (PROVENTIL) 07-02 05-20 (2.5 mg Luke s 2.5 mg /3 00:00: 00:00 total) by Me dical mL (0.083 00 :[address] er %) on every 6 nebulizer (six) solution hours as needed for Wheezing. albuterol 2022- No 2.5mg Take [address] (PROVENTIL) 07-02 05-20 (2.5 mg Luke s 2.5 mg /3 00:00: 00:00 total) by Me dical mL (0.083 00 :[address] er %) on every 6 nebulizer (six) solution hours as needed for Wheezing. No known No Univers medications [facility] Immunizations Ordered Immunization Filled Immunization Date Status Commen ts Source Name Name Pneumococcal 2019-06-[address] [facility] Conjugate (Prevnar) 00:00:00 [facility] Pneumococcal 2019-06-[address] [facility] Conjugate (Prevnar) 00:[facility] Pneumococcal 2019-06-[address] [facility] Conjugate (Prevnar) 00:00:00 Medic al [facility] Pneumococcal 2019-06-[address] [facility] Conjugate (Prevnar) 00:00:00 Medic al [facility] Pneumococcal 2019-06-[address] [facility] Conjugate (Prevnar) 00:00:00 Medic al [facility] Pneumococcal 2019-06-[address] [facility] Conjugate (Prevnar) 00:00:00 Medic al Center [facility] Pneumococcal 2019-06-[address] [facility] Conjugate (Prevnar) 00:00:00 [facility] Pneumococcal 2019-06-[address] [facility] Conjugate (Prevnar) 00:00:00 [facility] Pneumococcal 2019-06-[address] [facility] Conjugate (Prevnar) 00:00:00 [facility] Pneumococcal 2019-06-[address] [facility] Conjugate (Prevnar) 00:00:00 [facility] Pneumococcal 2019-06-[address] [facility] Conjugate (Prevnar) 00:00:00 [facility] Pneumococcal 2019-06-[address] [facility] Conjugate (Prevnar) 00:00:00 [facility] Pneumococcal 2019-06-[address] [facility] Conjugate (Prevnar) 00:00:00 [facility] Influenza Four-QIV 2018-07-[address] [...] Observation Time Observation Value Comments Source WEIGHT 2023-04-12 07:00:00 68.2 kg WEIGHT 2023-04-11 07:00:00 68.2 kg WEIGHT 2023-04-12 07:00:00 68.2 kg WEIGHT 2023-04-11 07:00:00 68.2 kg WEIGHT 2023-04-12 07:00:00 68.2 kg WEIGHT 2023-04-11 07:00:00 68.2 kg WEIGHT 2023-02-25 06:00:00 68.22 kg WEIGHT [...] 07:00:00 134 mm[Hg] Univer sity of pressure [facility] Diastolic blood 2020-10-19 07:00:00 92 mm[facility]Hg[facility] 2020-10-19 07:00:00 53 /min [facility] Respiratory rate 2020-10-19 07:00:00 15 /min Univ [facility] Oxygen saturation in 2020-10-19 07:00:00 100 /min [facility] Arterial blood by [facility] Pulse oximetry [facility] Body temperature 2020-10-19 03:08:00 36.72 [facility] height 2020-10-19 03:08:00 185.4 cm [facility] Body weight 2020-10-19 03:08:00 70.308 kg [facility] BMI 2020-10-19 03:08:00 20.45 kg/m2 [facility] Systolic blood 2020-10-19 07:00:00 134 mm[Hg] Univer sity of [facility] Diastolic blood 2020-10-19 07:00:00 92 mm[Hg] Unive rsity of pressure [facility] Heart rate 2020-10-19 07:00:00 53 /min Universi ty [facility] Respiratory rate 2020-10-19 07:00:00 15 /min [facility] Oxygen saturation in 2020-10-19 07:00:00 100 /min [facility] Arterial blood by [facility] Pulse oximetry [place] Body temperature 2020-10-19 03:08:00 36.72 [facility] Body height 2020-10-19 03:08:[address] [facility] Body weight 2020-10-19 03:08:[address] [facility] BMI 2020-10-19 03:08:00 20.45 kg/m2 Universi ty [facility] HEIGHT 2020-10-15 08:14:00 185.4 cm WEIGHT [...] WEIGHT 2020-04-17 00:00:00 73.483 kg Systolic blood 2023-04-16 15:00:00 124 mm[Hg] [facility] Diastolic blood 2023-04-16 15:00:00 77 mm[Hg] [facility] rate 2023-04-16 15:00:00 56 /min [facility] Body temperature 2023-04-16 15:00:[address] [facility] Respiratory rate 2023-04-16 15:00:00 18 /min [facility] Oxygen saturation in 2023-04-16 15:00:00 97 /min [facility] Arterial blood by Medical Ce nter Pulse oximetry Body weight 2023-04-12 07:00:00 68.2 kg [facility] BMI 2023-04-12 07:00:00 19.84 kg/m2 [facility] Systolic blood 2022-09-26 13:00:00 107 mm[Hg] [facility] Diastolic blood 2022-09-26 13:00:00 76 mm[Hg] [facility] rate 2022-09-26 13:00:00 54 /min [facility] Body temperature 2022-09-26 13:00:[address] [facility] Respiratory rate 2022-09-26 13:00:00 19 /min [facility] Oxygen saturation in 2022-09-26 13:00:00 97 /min [facility] Arterial blood by Medical Ce nter Pulse oximetry Body weight 2022-09-24 03:22:00 68.811 kg [facility] BMI 2022-09-24 03:22:00 20.01 kg/m2 [facility] Body height 2022-09-24 03:22:00 185.4 cm [facility] Systolic blood 2022-09-11 11:47:00 128 mm[Hg] [facility] Diastolic blood 2022-09-11 11:47:00 72 mm[Hg] [facility] Heart rate 2022-09-11 11:47:00 58 /min [facility] Body temperature 2022-09-11 11:47:[address] [facility] Respiratory rate 2022-09-11 11:47:00 20 /min [facility] Oxygen saturation in 2022-09-11 11:47:00 100 /min [facility] Arterial blood by Medical Ce nter Pulse oximetry Systolic blood 2022-09-07 23:33:00 114 mm[Hg] [facility] Diastolic blood 2022-09-07 23:33:00 51 mm[Hg] [facility] rate 2022-09-07 23:33:00 58 /min [facility] Body temperature 2022-09-07 23:33:[address] [facility] Respiratory rate 2022-09-07 23:33:00 18 /min [facility] Oxygen saturation in 2022-09-07 23:33:00 98 /min [facility] Arterial blood by Medical Ce nter Pulse oximetry Body height 2022-09-07 20:33:00 185.4 cm [facility] Body weight 2022-09-07 20:33:00 69.491 kg [facility] BMI 2022-09-07 20:33:00 20.21 kg/m2 [facility] Heart rate 2021-12-09 08:50:00 63 /min [facility] Respiratory rate 2021-12-09 08:50:00 18 /min [facility] Oxygen saturation in 2021-12-09 08:50:00 96 /min [facility] Arterial blood by Medical Ce nter Pulse oximetry Systolic blood 2021-12-09 07:57:00 116 mm[Hg] [facility] Diastolic blood 2021-12-09 07:57:00 70 mm[Hg] [facility] Body temperature 2021-12-09 07:57:[address] [facility] Body weight 2021-12-08 20:00:00 67.767 kg [facility] BMI 2021-12-08 20:00:00 19.71 kg/m2 [facility] Body height 2021-12-05 07:23:00 185.4 cm [facility] Procedures Procedure Date / Time Performing Clinician Source Performed CF RESPIRATORY CULTURE 2023-04-21 16:05:[address] [facility] FUNGUS CULTURE + SMEAR 2023-04-21 16:04:[address] [facility] AFB CULTURE + SMEAR 2023-04-21 16:03:00 [facility] [place] SPIN/CONCENTRATION 2023-04-21 16:03:00 Radha Burch [facility] Center XR ABDOMEN/KUB 1 VIEW 2023-04-16 14:17:00 Madina, [facility] BASIC METABOLIC PANEL 2023-04-16 06:40:00 Nalam, [facility] MAGNESIUM 2023-04-16 06:40:00 Nalam, [facility] PHOSPHORUS 2023-04-16 06:40:00 Nalam, [facility] BASIC METABOLIC PANEL 2023-04-15 05:33:00 Nalam, [facility] MAGNESIUM 2023-04-15 05:33:00 Nalam, [facility] PHOSPHORUS 2023-04-15 05:33:00 Nalam, [facility] XR ABDOMEN/KUB 1 VIEW 2023-04-14 12:40:00 Akin Thomas [facility] BASIC METABOLIC PANEL 2023-04-14 04:07:00 Nalam, [facility] MAGNESIUM 2023-04-14 04:07:00 Nalam, [facility] PHOSPHORUS 2023-04-14 04:07:00 Nalam, [facility] BASIC METABOLIC PANEL 2023-04-13 04:00:00 [facility] 2023-04-13 04:00:00 Nalam, [facility] PHOSPHORUS 2023-04-13 04:00:00 Honey Painter Lys[facility] BASIC METABOLIC PANEL 2023-04-12 03:48:00 [facility] 2023-04-12 03:48:00 [facility] 2023-04-12 03:48:00 [facility] POCT-GLUCOSE METER 2023-04-11 16:36:00 [facility] ABDOMEN/KUB 1 VIEW 2023-04-11 10:44:00 Matthew [facility] PORTABLE [facility] Center COMPREHENSIVE METABOLIC 2023-04-11 10:07:00 Honey Painter [facility] MAGNESIUM 2023-04-11 10:07:00 [facility] PHOSPHORUS 2023-04-11 10:07:00 [facility] CBC W/PLT COUNT & AUTO 2023-04-11 10:07:00 [facility] HEMOGLOBIN A1C 2023-04-11 10:07:00 [facility] GAMMA GLUTAMYL 2023-04-11 10:07:00 [facility] TRANSF[facility]ASE (GGT[facility] Center CBC W/PLT COUNT & AUTO 2023-04-11 10:07:00 [facility]-SC[facility]ED 2023-04-11 00:00:00 Gloria Kaye [facility] Scanning Center CBC W/PLT COUNT & AUTO 2023-02-26 05:58:00 Sharyn Rodriguez [facility] BASIC METABOLIC PANEL 2023-02-26 05:58:[address] [facility] CBC W/PLT COUNT & AUTO 2023-02-26 05:58:00 Sharyn Rodriguez [facility] CBC W/PLT COUNT & AUTO 2023-02-25 05:13:00 Jose Daniel [facility] BASIC METABOLIC PANEL 2023-02-25 05:13:00 [facility] CBC W/PLT COUNT & AUTO 2023-02-25 05:13:00 [facility] BASIC METABOLIC PANEL 2023-02-24 04:39:00 [facility] CBC W/PLT COUNT & AUTO 2023-02-24 04:39:00 [facility] CBC W/PLT COUNT & AUTO 2023-02-24 04:39:00 [facility] (CELLAVISION MANUAL 2023-02-24 04:39:00 [facility]) [place] CBC (HEMOGRAM ONLY) 2023-02-23 04:40:00 [facility] BASIC METABOLIC PANEL 2023-02-23 04:40:00 [facility] CBC (HEMOGRAM ONLY) 2023-02-22 04:23:00 [facility] BASIC METABOLIC PANEL 2023-02-22 04:23:00 [facility] HEMOGLOBIN A1C 2023-02-21 03:14:00 [facility] GAMMA GLUTAMYL 2023-02-21 03:14:00 [facility] TRANSFERASE (GGT) [facility] BASIC METABOLIC PANEL 2023-02-21 03:14:00 [facility] MAGNESIUM 2023-02-21 03:14:00 [facility] XR ABDOMEN/KUB 1 VIEW 2023-02-20 08:49:00 Tu Lara [facility] COMPREHENSIVE METABOLIC 2023-02-20 08:28:00 [facility] CBC W/PLT COUNT & AUTO 2023-02-20 08:28:00 [facility] DIFFERENTIAL Desi [place] MAGNESIUM 2023-02-20 08:28:00 [facility] PROTHROMBIN TIME/INR 2023-02-20 08:28:00 [facility] CBC W/PLT COUNT & AUTO 2023-02-20 08:28:00 [facility] DIFFERENTIAL [facility] FUNGUS CULTURE + SMEAR 2022-11-29 11:21:00 [facility] AFB CULTURE + SMEAR 2022-11-29 11:21:00 [facility] (SPUTUM ONLY) [place] CF RESPIRATORY CULTURE 2022-11-29 11:21:00 [facility] SPIN/CONCENTRATION 2022-11-29 11:21:00 Marcin [facility] Center XR ABDOMEN/KUB 1 VIEW 2022-09-26 07:55:00 Pita [facility] BASIC METABOLIC PANEL 2022-09-26 05:16:00 Lolita-Tenisha Ruizg In [facility] MAGNESIUM 2022-09-26 05:16:00 Lolita-Sara, Sung In [facility] XR ABDOMEN/KUB 1 VIEW 2022-09-25 14:10:00 Pita [facility] SARS-COV2/RT-PCR ([facility] & 2022-09-25 14:03:00 Lolita-Tenisha Ruizg In [facility] REF LABS) Center XR CHEST 1 VIEW PORTABLE 2022-09-24 11:24:00 Minnie Oliva [facility] / BEDSIDE Center BASIC METABOLIC PANEL 2022-09-24 04:05:00 Chaparro Farah [facility] HEPATIC FUNCTION PANEL 2022-09-24 04:05:[address] [facility] PROTHROMBIN TIME/INR 2022-09-24 04:05:00 Chaparro Farah [facility] MAGNESIUM 2022-09-24 04:05:[address] [facility] PHOSPHORUS 2022-09-24 04:05:00 [facility] CBC W/PLT COUNT & AUTO 2022-09-24 04:05:00 Chaparro Farah [facility] CBC W/PLT COUNT & AUTO 2022-09-24 04:05:00 [facility] 2022-09-24 00:00:00 Provider, [facility] BASIC METABOLIC PANEL 2022-09-11 05:23:00 [facility] 2022-09-11 05:23:00 [facility]UM 2022-09-11 05:23:00 [facility]US 2022-09-11 05:23:00 [facility] CBC W/PLT COUNT & AUTO 2022-09-11 05:23:00 [facility] CBC W/PLT COUNT & AUTO 2022-09-11 05:23:[address] [facility] BASIC METABOLIC PANEL 2022-09-10 03:26:00 [facility] HEPATIC FUNCTION PANEL 2022-09-10 03:26:00 [facility] MAGNESIUM 2022-09-10 03:26:00 [facility] PHOSPHORUS 2022-09-10 03:26:00 [facility] CBC W/PLT COUNT & AUTO 2022-09-10 03:26:[address] [facility] VANCOMYCIN LEVEL, TROUGH 2022-09-10 03:26:00 Sandoval Lipscomb [facility] CBC W/PLT COUNT & AUTO 2022-09-10 03:26:00 Lightle, [facility] DIFFERENTIAL Rauton [place] US ABDOMEN LIMITED 2022-09-09 19:26:00 Lightle, [facility] XR ABDOMEN/KUB 1 VIEW 2022-09-09 13:27:00 Lightle, [facility] RESPIRATORY PANEL 2022-09-09 13:07:00 PjMinnie [facility] BILIRUBIN, DIRECT 2022-09-09 13:04:00 Lightle, [facility] BASIC METABOLIC PANEL 2022-09-09 09:43:00 Lightle, [facility] HEPATIC FUNCTION PANEL 2022-09-09 09:43:00 Lightle, [facility] MAGNESIUM 2022-09-09 09:43:00 Lightle, [facility] PHOSPHORUS 2022-09-09 09:43:00 Lightle, [facility] CBC W/PLT COUNT & AUTO 2022-09-09 09:43:00 Lightle, [facility]ENTIAL [facility] CBC W/PLT COUNT & AUTO 2022-09-09 09:43:00 Lightle, [facility] DIFFERENTIAL [facility] XR CHEST 1 VIEW PORTABLE 2022-09-08 18:51:00 Sandoval Lipscomb [facility] / BEDSIDE [facility] STREP PNEUMONIAE ANTIGEN 2022-09-08 17:19:00 Sandoval Lipscomb [facility] LACTIC ACID, VENOUS 2022-09-08 17:18:00 Sandoval Lipscomb [facility] PROCALCITONIN 2022-09-08 17:18:00 Sandoval Lipscomb [facility] BLOOD CULTURE 2022-09-08 17:16:00 Sandoval Lipscomb [facility] COMPREHENSIVE METABOLIC 2022-09-08 04:32:00 [facility]i [facility] MAGNESIUM 2022-09-08 04:32:00 [facility] (HEMO[facility] ONLY) 2022-09-08 04:32:00 [facility] SARS-COV2/RT-PCR ([facility] & 2022-09-07 06:24:00 [facility] Kari [facility] REF LABS) [facility] CT ABDOMEN/PELVIS WITH 2022-09-07 04:32:00 [facility] IV CONTRAST [facility] BASIC METABOLIC PANEL 2022-09-07 02:23:00 Bud [facility] HEPATIC FUNCTION PANEL 2022-09-07 02:23:00 Bud [facility] LIPASE 2022-09-07 02:23:00 Bud [facility] CBC W/PLT COUNT & AUTO 2022-09-07 02:22:00 [facility] DIFFERENTIAL [facility] LACTIC ACID, VENOUS 2022-09-07 02:22:00 Bud [facility] CBC W/PLT COUNT & AUTO 2022-09-07 02:22:00 [facility] DIFFERENTIAL [facility] URINALYSIS W/ REFLEX 2022-09-07 00:38:00 Bud [facility] URINE CULTURE [facility] URINE CULTURE 2022-09-07 00:38:00 Bud [facility] ECG 12-LEAD 2022-09-06 23:05:36 Bud [facility] ECG 12-LEAD 2022-09-06 23:05:36 Unknown, [facility] ECG 12-LEAD 2022-09-06 23:05:36 Unknown, [facility] EKG-SCANNED 2022-09-06 00:00:00 Provider, Gloria [facility] CF RESPIRATORY CULTURE 2022-07-05 13:40:00 Oksana [facility] Sof[facility] Center CT ABDOMEN/PELVIS WITH 2022-06-27 05:18:00 [facility], [facility] CONTRAST Center CBC W/PLT COUNT & AUTO 2022-06-27 01:32:00 [facility] BASIC METABOLIC PANEL 2022-06-27 01:32:00 [facility], [facility] HEPATIC FUNCTION PANEL 2022-06-27 01:32:00 [facility], [facility] LIPASE 2022-06-27 01:32:00 [facility], [facility] CBC W/PLT COUNT & AUTO 2022-06-27 01:32:00 [facility] POCT-GLUCOSE METER 2022-06-22 17:11:00 [facility] POCT-GLUCOSE METER 2022-06-22 12:56:00 [facility] POCT-GLUCOSE METER 2022-06-22 05:50:00 [facility] BASIC METABOLIC PANEL 2022-06-22 03:56:00 [facility] CALCIUM, IONIZED 2022-06-22 03:56:00 Dashawn [facility]Sharp [facility] [place] PHOSPH[place]US 2022-06-22 03:56:00 [facility] & AUTO 2022-06-22 03:56:00 Tonny Meneses [facility] MAGNESIUM 2022-06-22 03:56:00 Sintia [facility] CBC W/PLT COUNT & AUTO 2022-06-22 03:56:00 Tonny Meneses [facility] POCT-GLUCOSE METER 2022-06-22 00:16:00 [facility]izgar[facility] PO[facility]ER 2022-06-21 17:12:00 [facility] 2022-06-21 12:49:00 [facility]ER 2022-06-21 08:18:00 [facility] BASIC METABOLIC PANEL 2022-06-21 04:58:00 [facility] CALCIUM, IONIZED 2022-06-21 04:58:00 [facility] [place] [facility] 2022-06-21 04:58:00 Sintia [facility] CBC W/PLT COUNT & AUTO 2022-06-21 04:58:00 Tonny Meneses [facility] MAGNESIUM 2022-06-21 04:58:00 Sintia [facility] CBC W/PLT COUNT & AUTO 2022-06-21 04:58:00 Tonny Meneses [facility] POCT-GLUCOSE METER 2022-06-20 21:02:00 [facility] POCT-GLUCOSE METER 2022-06-20 17:36:00 [facility] POCT-GLUCOSE METER 2022-06-20 12:43:00 [facility] POCT-[facility]UCOSE METER 2022-06-20 09:50:00 Sintia [facility] POCT-GLUCOSE METER 2022-06-20 08:16:00 S[facility]ia [facility] BASIC METABOLIC PANEL 2022-06-20 04:51:00 [facility]ia [facility] CALCIUM, IONIZED 2022-06-20 04:51:00 [facility] PHOSPHORUS 2022-06-20 04:51:00 Parhizgar, [facility] CBC W/PLT COUNT & AUTO 2022-06-20 04:51:00 Tonny Meneses [facility] MAGNESIUM 2022-06-20 04:51:00 [facility] W[facility] & AUTO 2022-06-20 04:51:00 Eastonbenson hospitalTonny [facility] POCT-GLUCOSE METER 2022-06-19 21:09:00 [facility] POCT-GLUCOSE METER 2022-06-19 17:24:00 [facility] POCT-GLUCOSE METER 2022-06-19 12:16:00 [facility] BASIC METABOLIC PANEL 2022-06-19 04:37:00 [facility] MAGNESIUM 2022-06-19 04:37:00 [facility] CBC W/PLT COUNT & AUTO 2022-06-19 04:37:00 [facility] CBC W/PLT COUNT & AUTO 2022-06-19 04:37:[address] [facility] [address] ABDOMEN/PELVIS WITH 2022-06-18 23:25:00 Meredith Harry [facility] IV CONTRAST [facility] POCT-GLUCOSE METER 2022-06-18 23:24:00 Meredith Harry [facility] BLOOD CULTURE 2022-06-18 21:06:00 [facility] SARS-COV2/RT-PCR ([facility] & 2022-06-18 21:06:00 Graham Singh [facility] REF LABS) Center CBC W/PLT COUNT & AUTO 2022-06-18 21:06:00 KamrynMeredith webb [facility] DIFFERENTIAL [facility] LACTIC ACID, VENOUS 2022-06-18 21:06:00 KamrynMeredith [facility] COMPREHENSIVE METABOLIC 2022-06-18 21:06:00 Kamryn [facility] PANEL [facility] PROTHROMBIN TIME/INR 2022-06-18 21:06:00 Kamryn [facility] APTT 2022-06-18 21:06:00 Kamryn [facility] CBC W/PLT COUNT & AUTO 2022-06-18 21:06:00 [facility] ECG 12-LEAD 2022-06-18 17:50:02 Unknown, [facility] ECG 12-LEAD 2022-06-18 17:50:02 Unknown, [facility] ECG 12-LEAD 2022-06-18 17:50:02 Unknown, [facility] EKG-SCANNED 2022-06-18 00:00:00 Provider, Gloria [facility] CF RESPIRATORY CULTURE 2022-01-14 11:54:00 Amor Napier [facility] [employer] CULTURE + SMEAR 2022-01-14 11:54:00 Amor Napeir [facility] (SPUTUM ONLY) [place] SPIN/CONCENTRATION 2022-01-14 11:54:00 Quyen Scotlandoneyda Ha [facility] FUNGUS CULTURE + SMEAR 2022-01-14 11:53:00 Amor Napier [facility] FUNGUS CULTURE + SMEAR 2021-12-30 16:13:[address] [facility] [employer] CULTURE + SMEAR 2021-12-30 16:13:00 Radha Burch [facility] (SPUTUM ONLY) [place] CF RESPIRATORY CULTURE 2021-12-30 16:13:[address] [facility] SPIN/CONCENTRATION 2021-12-30 16:13:00 Radha Burch [facility] XR ABDOMEN/KUB 1 VIEW 2021-12-06 07:44:00 Miguel Curiel [facility] CBC (HEMOGRAM ONLY) 2021-12-06 04:55:00 [facility] BASIC METABOLIC PANEL 2021-12-06 04:55:00 [facility] POCT-GLUCOSE METER 2021-12-05 17:37:[address] [facility] [address] ABDOMEN/PELVIS WITH 2021-12-05 09:41:00 [facility] IV CONTRAST Center SARS-COV2/RT-PCR ([facility] & 2021-12-05 08:55:00 [facility] REF LABS) [place] CBC W/PLT COUNT & AUTO 2021-12-05 07:45:00 [facility] COMPREHENSIVE METABOLIC 2021-12-05 07:45:[address] [facility] LIPASE 2021-12-05 07:45:00 [facility] CBC W/PLT COUNT & AUTO 2021-12-05 07:45:00 [facility] XR ABDOMEN/KUB 1 VIEW 2021-11-30 09:11:00 Patricio Loja Issabail [facility] BASIC METABOLIC PANEL 2021-11-30 08:50:00 Pratik Layton [facility] CBC W/PLT COUNT & AUTO 2021-11-26 05:05:00 [facility] BASIC METABOLIC PANEL 2021-11-26 05:05:00 [facility] CBC W/PLT COUNT & AUTO 2021-11-26 05:05:00 [facility] CT ABDOMEN/PELVIS WITH 2021-11-25 03:19:00 Brad Galindo [facility] IV CONTRAST Center SARS-COV2/RT-PCR ([facility] & 2021-11-25 01:09:00 Brad Galindo [facility] REF LABS) Center CBC W/PLT COUNT & AUTO 2021-11-25 01:09:[address] [facility] DIFFERENTIAL Center COMPREHENSIVE METABOLIC 2021-11-25 01:09:00 Brad Galindo Enriqueta [facility] PANEL Center MAGNESIUM 2021-11-25 01:09:00 Brad Galindo Enriqueta [facility] HIGH SENSITIVITY 2021-11-25 01:09:00 Brad Galindo Enriqueta [facility] TROPONIN I Center LIPASE 2021-11-25 01:09:00 Brad Galindo [facility] CBC W/PLT COUNT & AUTO 2021-11-25 01:09:00 Brad Galindo Enriqueta [facility] CT ABDOMEN/PELVIS WITH 2021-11-14 00:11:00 Lance Steen [facility] IV CONTRAST Jocelyne Center COMPREHENSIVE METABOLIC 2021-11-13 22:53:00 [facility] PANEL Center LIPASE 2021-11-13 22:53:00 [facility] MAGNESIUM 2021-11-13 22:53:00 [facility] URINE CULTURE 2021-11-13 22:18:00 [facility] URINALYSIS W/ REFLEX 2021-11-13 22:18:00 [facility] URINE CULTURE Center SARS-COV2/RT-PCR ([facility] & 2021-11-13 22:12:00 [facility] REF LABS) Center CBC W/PLT COUNT & AUTO 2021-11-13 22:12:00 [facility] CBC W/PLT COUNT & AUTO 2021-11-13 22:12:00 [facility] DIFFERENTIAL [place] XR ABDOMEN/KUB 1 VIEW 2021-11-13 21:30:00 [facility] PORTABLE Center XR CHEST 1 VIEW PORTABLE 2021-11-13 21:30:00 [facility] / BEDSIDE Center ECG 12-LEAD 2021-11-13 19:46:04 Unknown, [facility] ECG 12-LEAD 2021-11-13 19:46:04 Unknown, [facility] EKG-SCANNED 2021-11-13 00:00:00 ProviderGloria [facility] Scanning Center PHOSPHORUS 2021-08-06 04:54:00 [facility]OL[facility]EL 2021-08-06 04:54:00 [facility] [place] MAGNESIUM 2021-08-06 04:54:00 [facility] XR ABDOMEN / KUB 1 VIEW 2021-08-05 11:57:00 Charlene Pearson [facility] PHOSPHORUS 2021-08-05 05:07:00 [facility] BASIC METABOLIC PANEL 2021-08-05 05:07:00 [facility] () [place] MAGNESIUM 2021-08-05 05:07:00 [facility] PHOSPHORUS 2021-08-04 05:33:00 [facility] BASIC METABOLIC PANEL 2021-08-04 05:33:00 [facility] (7) [place] MAGNESIUM 2021-08-04 05:33:00 [facility] BASIC METABOLIC PANEL 2021-08-03 04:23:00 [facility] () [place] MAGNESIUM 2021-08-03 04:23:00 [facility] PHOSPHORUS 2021-08-03 04:23:00 [facility] SARS-COV2/RT-PCR ([facility] & 2021-08-01 21:50:00 Puma Kent [facility] REF LABS) Center CT ABDOMEN/PELVIS WITH 2021-08-01 20:44:00 Elie Youngblood [facility] IV CONTRAST Center LIPASE 2021-08-01 19:18:00 Puma Kent [facility] COMPREHENSIVE METABOLIC 2021-08-01 19:17:00 Elie Youngblood [facility] PANEL Center CBC W/PLT COUNT & AUTO 2021-08-01 19:17:00 Elie Youngblood [facility] DIFFERENTIAL Center CBC W/PLT COUNT & AUTO 2021-08-01 19:17:00 Elie Youngblood [facility] DIFFERENTIAL Center URINALYSIS 2020-10-19 04:37:00 Shannon Momin [facility] CT ABDOMEN PELVIS W 2020-10-19 04:02:25 Shannon Momin [facility] CONTRAST Medical Branch LIPASE 2020-10-19 03:17:00 Shannon Momin [facility] TROPONIN I 2020-10-19 03:17:00 Shannon Momin [facility] HEPATIC FUNCTION PANEL 2020-10-19 03:17:00 Shannon Momin [facility] ([id number]) (ALB,T.PRO,BILI Medical Branch T,BU/BC,ALT,AST,ALK PHOS) BASIC METABOLIC PANEL 2020-10-19 03:17:00 Shannon Momin [facility] (NA, K, CL, CO2, Medical Branch GLUCOSE, BUN, CREATININE, CA) CBC WITH DIFF 2020-10-19 03:17:00 Shannon Momin [facility] COVID-19 (ID NOW RAPID 2020-10-19 03:17:00 Shannon Momin [facility] TESTING) Medical Branch Plan of Care Planned Activity Planned Date Details Comments Source Future Scheduled 2028-09-01 Screening for malignant [facility] 00:00:00 neoplasm of colon Medical Ce nter (procedure) [code = 797820697] Future Scheduled 2028-09-01 Screening for malignant [facility] 00:00:00 neoplasm of colon Medical Ce nter (procedure) [code = 492626437] Future Scheduled 2028-09-01 Screening for malignant [facility] 00:00:00 neoplasm of colon Medical Ce nter (procedure) [code = 799156586] Future Scheduled 2028-09-01 Screening for malignant [facility] 00:00:00 neoplasm of colon Medical Ce nter (procedure) [code = 344296689] Future Scheduled 2028-09-01 Screening for malignant [facility] 00:00:00 neoplasm of colon Medical Ce nter (procedure) [code = 133514358] Future Scheduled 2028-09-01 Screening for malignant [facility] 00:00:00 neoplasm of colon Medical Ce nter (procedure) [code = 893564387] Future Scheduled 2028-09-01 Screening for malignant [facility] 00:00:00 neoplasm of colon Medical Ce nter (procedure) [code = 538845035] Future Scheduled 2028-09-01 Screening for malignant [facility] 00:00:00 neoplasm of colon Medical Ce nter (procedure) [code = 421898966] Future Scheduled 2028-09-01 Screening for malignant [facility] 00:00:00 neoplasm of colon Medical Ce nter (procedure) [code = 564060963] Future Scheduled 2028-09-01 Screening for malignant [facility] 00:00:00 neoplasm of colon Medical Ce nter (procedure) [code = 504590643] Future Scheduled 2028-09-01 Screening for malignant [facility] 00:00:00 neoplasm of colon Medical Ce nter (procedure) [code = 814867339] Future Scheduled 2028-09-01 Screening for malignant [facility] 00:00:00 neoplasm of colon Medical Ce nter (procedure) [code = 850240958] Future Scheduled 2028-09-01 Screening for malignant [facility] 00:00:00 neoplasm of colon Medical Ce nter (procedure) [code = 888241896] Future Scheduled 2028-09-01 Screening for malignant [facility] 00:00:00 neoplasm of colon Medical Ce nter (procedure) [code = 688877358] Future Scheduled 2028-09-01 Screening for malignant [facility] 00:00:00 neoplasm of colon Medical Ce nter (procedure) [code = 499848526] Future Scheduled 2028-09-01 Screening for malignant [facility] 00:00:00 neoplasm of colon Medical Ce nter (procedure) [code = 912719366] Future Scheduled 2028-09-01 Screening for malignant [facility] 00:00:00 neoplasm of colon Medical Ce nter (procedure) [code = 387760991] Future Scheduled 2028-09-01 Screening for malignant [facility] 00:00:00 neoplasm of colon Medical Ce nter (procedure) [code = 169103925] Future Scheduled 2028-09-01 Screening for malignant [facility] 00:00:00 neoplasm of colon Medical Ce nter (procedure) [code = 043239296] Future Scheduled 2028-09-01 Screening for malignant [facility] 00:00:00 neoplasm of colon Medical Ce nter (procedure) [code = 322913944] Future Scheduled 2028-09-01 Screening for malignant [facility] 00:00:00 neoplasm of colon Medical Ce nter (procedure) [code = 930010260] Future Scheduled 2028-09-01 Screening for malignant [facility] 00:00:00 neoplasm of colon Medical Ce nter (procedure) [code = 860345120] Future Scheduled 2028-09-01 Screening for malignant [facility] 00:00:00 neoplasm of colon Medical Ce nter (procedure) [code = 784917119] Future Scheduled 2028-09-01 Screening for malignant [facility] 00:00:00 neoplasm of colon Medical Ce nter (procedure) [code = 108290071] Future Scheduled 2028-09-01 Screening for malignant [facility] 00:00:00 neoplasm of colon Medical Ce nter (procedure) [code = 156201192] Future Scheduled 2028-09-01 Screening for malignant [facility] 00:00:00 neoplasm of colon Medical Ce nter (procedure) [code = 380515598] Future Scheduled 2027-11-29 Lipid panel (procedure) [facility] 00:00:00 [code = 83954168] Medical Ce nter Future Scheduled 2027-11-29 Lipid panel (procedure) [facility] 00:00:00 [code = 40821533] Medical Ce nter Future Scheduled 2027-11-29 Lipid panel (procedure) [facility] 00:00:00 [code = 60211436] Medical Ce nter Future Scheduled 2026-12-30 Lipid panel (procedure) [facility] 00:00:00 [code = 39940917] Medical Ce nter Future Scheduled 2026-12-30 Lipid panel (procedure) [facility] 00:00:00 [code = 02439098] Medical Ce nter Future Scheduled 2026-12-30 Lipid panel (procedure) [facility] 00:00:00 [code = 50378209] Medical Ce nter Future Scheduled 2026-12-30 Lipid panel (procedure) [facility] 00:00:00 [code = 60053546] Medical Ce nter Future Scheduled 2026-12-30 Lipid panel (procedure) [facility] 00:00:00 [code = 07514438] Medical Ce nter Future Scheduled 2026-12-30 Lipid panel (procedure) [facility] 00:00:00 [code = 56153956] Medical Ce nter Future Scheduled 2026-12-30 Lipid panel (procedure) [facility] 00:00:00 [code = 13331314] Medical Ce nter Future Scheduled 2026-12-30 Lipid panel (procedure) [facility] 00:00:00 [code = 55056248] Medical Ce nter Future Scheduled 2026-12-30 Lipid panel (procedure) [facility] 00:00:00 [code = 45571467] Medical Ce nter Future Scheduled 2026-12-30 Lipid panel (procedure) [facility] 00:00:00 [code = 33582611] Medical Ce nter Future Scheduled 2024-02-[address] [facility] 00:00:00 Counseling and Screening Med ical Center (12+) [code = Tobacco Cessation Counseling and Screening (12+)] Future Scheduled 2024-02-[address] [facility] 00:00:00 Counseling and Screening Med ical Center (12+) [code = Tobacco Cessation Counseling and Screening (12+)] Future Scheduled 2024-02-[address] [facility] 00:00:00 Counseling and Screening Med ical Center (12+) [code = Tobacco Cessation Counseling and Screening (12+)] Future Scheduled 2023-09-[address] [facility] 00:00:00 Counseling and Screening Med ical Center (12+) [code = Tobacco Cessation Counseling and Screening (12+)] Future Scheduled 2023-09-[address] [facility] 00:00:00 Counseling and Screening Med ical Center (12+) [code = Tobacco Cessation Counseling and Screening (12+)] Future Scheduled 2023-09-[address] [facility] 00:00:00 Counseling and Screening Med ical Center (12+) [code = Tobacco Cessation Counseling and Screening (12+)] Future Scheduled 2023-09-[address] [facility] 00:00:00 Counseling and Screening Med ical Center (12+) [code = Tobacco Cessation Counseling and Screening (12+)] Future Scheduled 2023-09-[address] [facility] 00:00:00 Counseling and Screening Med ical Center (12+) [code = Tobacco Cessation Counseling and Screening (12+)] Future Scheduled 2023-09-[address] [facility] 00:00:00 Counseling and Screening Med ical Center (12+) [code = Tobacco Cessation Counseling and Screening (12+)] Future Scheduled 2023-09-[address] [facility] 00:00:00 Counseling and Screening Med ical Center (12+) [code = Tobacco Cessation Counseling and Screening (12+)] Future Scheduled 2023-09-[address] [facility] 00:00:00 Counseling and Screening Med ical Center (12+) [code = Tobacco Cessation Counseling and Screening (12+)] Future Scheduled 2023-09-[address] [facility] 00:00:00 Counseling and Screening Med ical Center (12+) [code = Tobacco Cessation Counseling and Screening (12+)] Future Scheduled 2023-06-10 Influenza Vaccine (#1) [facility]:00 [code = Influenza Vaccine Me dical Center (#1)] Future Scheduled 2023-06-10 Influenza Vaccine (#1) [facility] 00:00:00 [code = Influenza Vaccine Me dical Center (#1)] Future Scheduled 2023-06-10 Influenza Vaccine (#1) [facility] 00:00:00 [code = Influenza Vaccine Me dical Center (#1)] Future Scheduled 2022-10-[address] [facility] 00:00:00 (12+) [code = DEPRESSION Med ical Center SCREENING (12+)] Future Scheduled 2022-10-[address] [facility] 00:00:00 (12+) [code = DEPRESSION Med ical Center SCREENING (12+)] Future Scheduled 2022-10-[address] [facility] 00:00:00 (12+) [code = DEPRESSION Med ical Center SCREENING (12+)] Future Scheduled 2022-10-[address] [facility] 00:00:00 (12+) [code = DEPRESSION Med ical Center SCREENING (12+)] Future Scheduled 2022-10-[address] [facility] 00:00:00 (12+) [code = DEPRESSION Med ical Center SCREENING (12+)] Future Scheduled 2022-10-[address] [facility] 00:00:00 (12+) [code = DEPRESSION Med ical Center SCREENING (12+)] Future Scheduled 2022-10-[address] [facility] 00:00:00 (12+) [code = DEPRESSION Med ical Center SCREENING (12+)] Future Scheduled 2022-10-[address] [facility] 00:00:00 (12+) [code = DEPRESSION Med ical Center SCREENING (12+)] Future Scheduled 2022-10-[address] [facility] 00:00:00 (12+) [code = DEPRESSION Med ical Center SCREENING (12+)] Future Scheduled 2022-06-10 INFLUENZA VACCINE (#1) [facility] 00:00:00 [code = INFLUENZA VACCINE Me dical Center (#1)] Future Scheduled 2021-10-[address] [facility] 00:00:00 (12+) [code = DEPRESSION Med ical Center SCREENING (12+)] Future Scheduled 2021-10-[address] [facility] 00:00:00 (12+) [code = DEPRESSION Med ical Center SCREENING (12+)] Future Scheduled 2020-06-02 PNEUMOCOCCAL VACCINE 0-[address] [facility] 00:00:00 YRS (2 - PPSV23 or PCV20) Me dical Center [code = PNEUMOCOCCAL VACCINE 0-64 YRS (2 - PPSV23 or PCV20)] Future Scheduled 2020-06-02 PNEUMOCOCCAL VACCINE 0-[address] [facility] 00:00:00 YRS (2 - PPSV23 or PCV20) Me dical Center [code = PNEUMOCOCCAL VACCINE 0-64 YRS (2 - PPSV23 or PCV20)] Future Scheduled 2020-06-02 PNEUMOCOCCAL VACCINE 0-[address] [facility] 00:00:00 YRS (2 - PPSV23 or PCV20) Me dical Center [code = PNEUMOCOCCAL VACCINE 0-64 YRS (2 - PPSV23 or PCV20)] Future Scheduled 2020-06-02 PNEUMOCOCCAL VACCINE 0-[address] [facility] 00:00:00 YRS (2 - PPSV23 or PCV20) Me dical Center [code = PNEUMOCOCCAL VACCINE 0-64 YRS (2 - PPSV23 or PCV20)] Future Scheduled 2020-06-02 PNEUMOCOCCAL VACCINE 0-[address] [facility] 00:00:00 YRS (2 - PPSV23 or PCV20) Me dical Center [code = PNEUMOCOCCAL VACCINE 0-64 YRS (2 - PPSV23 or PCV20)] Future Scheduled 2020-06-02 PNEUMOCOCCAL VACCINE 0-[address] [facility] 00:00:00 YRS (2 - PPSV23 or PCV20) Me dical Center [code = PNEUMOCOCCAL VACCINE 0-64 YRS (2 - PPSV23 or PCV20)] Future Scheduled 2019-07-28 PNEUMOCOCCAL VACCINE 0-[address] [facility] 00:00:00 YRS (2 - PPSV23 if Medical C enter available, else PCV20) [code = PNEUMOCOCCAL VACCINE 0-64 YRS (2 - PPSV23 if available, else PCV20)] Future Scheduled 2019-07-28 PNEUMOCOCCAL VACCINE 0-[address] [facility] 00:00:00 YRS (2 - PPSV23 if Medical C enter available, else PCV20) [code = PNEUMOCOCCAL VACCINE 0-64 YRS (2 - PPSV23 if available, else PCV20)] Future Scheduled 2019-07-28 Pneumococcal Vaccine: [facility]:00 0-64 Years (2 - PPSV23 if Me dical Center available, else PCV20) [code = Pneumococcal Vaccine: 0-64 Years (2 - PPSV23 if available, else PCV20)] Future Scheduled 2019-07-28 Pneumococcal Vaccine: [facility] 00:00:00 0-64 Years (2 - PPSV23 if Me dical Center available, else PCV20) [code = Pneumococcal Vaccine: 0-64 Years (2 - PPSV23 if available, else PCV20)] Future Scheduled 2019-07-28 PNEUMOCOCCAL VACCINE 0-[address] [facility] 00:00:00 YRS (2 - PPSV23 if Medical C enter available, else PCV20) [code = PNEUMOCOCCAL VACCINE 0-64 YRS (2 - PPSV23 if available, else PCV20)] Future Scheduled 2019-07-28 PNEUMOCOCCAL VACCINE 0-[address] [facility] 00:00:00 YRS (2 - PPSV23 if Medical C enter available, else PCV20) [code = PNEUMOCOCCAL VACCINE 0-64 YRS (2 - PPSV23 if available, else PCV20)] Future Scheduled 2019-07-28 Pneumococcal Vaccine: [facility] 00:00:00 0-64 Years (2 - PPSV23 if Me dical Center available, else PCV20) [code = Pneumococcal Vaccine: 0-64 Years (2 - PPSV23 if available, else PCV20)] Future Scheduled 2019-02-[address]NUAL WELLNESS [facility] 00:00:00 (YEAR 2 or FIRST YEAR if Med ical Center no IPPE) [code = MEDICARE ANNUAL WELLNESS (YEAR 2 or FIRST YEAR if no IPPE)] Future Scheduled 2019-02-[address] [facility] 00:00:00 (YEAR 2 or FIRST YEAR if Med ical Center no IPPE) [code = MEDICARE ANNUAL WELLNESS (YEAR 2 or FIRST YEAR if no IPPE)] Future Scheduled 2019-02-[address] [facility] 00:00:00 (YEAR 2 or FIRST YEAR if Med ical Center no IPPE) [code = MEDICARE ANNUAL WELLNESS (YEAR 2 or FIRST YEAR if no IPPE)] Future Scheduled 2019-02-[address]NU[address]NESS [facility] 00:00:00 (YEAR 2 or FIRST YEAR if Med ical Center no IPPE) [code = MEDICARE ANNUAL WELLNESS (YEAR 2 or FIRST YEAR if no IPPE)] Future Scheduled 2019-02-[address]NESS [facility] 00:00:00 (YEAR 2 or FIRST YEAR if Med ical Center no IPPE) [code = MEDICARE ANNUAL WELLNESS (YEAR 2 or FIRST YEAR if no IPPE)] Future Scheduled 2019-02-[address] [facility] 00:00:00 (YEAR 2 or FIRST YEAR if Med ical Center no IPPE) [code = MEDICARE ANNUAL WELLNESS (YEAR 2 or FIRST YEAR if no IPPE)] Future Scheduled 2019-02-08 [address]NUAL WE[address]NESS [facility] 00:00:00 (YEAR 2 or FIRST YEAR if Med ical Center no IPPE) [code = MEDICARE ANNUAL WELLNESS (YEAR 2 or FIRST YEAR if no IPPE)] Future Scheduled 2019-02-08 [address]NUAL WE[address]NESS [facility] 00:00:00 (YEAR 2 or FIRST YEAR if Med ical Center no IPPE) [code = MEDICARE ANNUAL WELLNESS (YEAR 2 or FIRST YEAR if no IPPE)] Future Scheduled 2019-02-[address]NESS [facility] 00:00:00 (YEAR 2 or FIRST YEAR if Med ical Center no IPPE) [code = MEDICARE ANNUAL WELLNESS (YEAR 2 or FIRST YEAR if no IPPE)] Future Scheduled 2019-02-08 MEDICARE ANNUAL WELLNESS [facility] 00:00:00 (YEAR 2 or FIRST YEAR if Med ical Center no IPPE) [code = MEDICARE ANNUAL WELLNESS (YEAR 2 or FIRST YEAR if no IPPE)] Future Scheduled 2019-02-[address]NUAL WE[address] [facility] 00:00:00 (YEAR 2 or FIRST YEAR if Med ical Center no IPPE) [code = MEDICARE ANNUAL WELLNESS (YEAR 2 or FIRST YEAR if no IPPE)] Future Scheduled 2000-01-10 MEDICARE ANNUAL WELLNESS [facility] 00:00:00 (YEAR 2 or FIRST YEAR if Med ical Center no IPPE) [code = MEDICARE ANNUAL WELLNESS (YEAR 2 or FIRST YEAR if no IPPE)] Future Scheduled 2000-01-10 MEDICARE ANNUAL WELLNESS [facility] 00:00:00 (YEAR 2 or FIRST YEAR if Med ical Center no IPPE) [code = MEDICARE ANNUAL WELLNESS (YEAR 2 or FIRST YEAR if no IPPE)] Future Scheduled 1994 DTAP/TDAP/TD VACCINES ([address] [facility] 00:00:00 - Tdap) [code = Medical Cent er DTAP/TDAP/TD VACCINES (1 - Tdap)] Future Scheduled 1994 DTAP/TDAP/TD VACCINES ([address] [facility] 00:00:00 - Tdap) [code = Medical Cent er DTAP/TDAP/TD VACCINES (1 - Tdap)] Future Scheduled 1994 DTAP/TDAP/TD VACCINES ([address] [facility] 00:00:00 - Tdap) [code = Medical Cent er DTAP/TDAP/TD VACCINES (1 - Tdap)] Future Scheduled 1994 DTAP/TDAP/TD VACCINES ([address] [facility] 00:00:00 - Tdap) [code = Medical Cent er DTAP/TDAP/TD VACCINES (1 - Tdap)] Future Scheduled 1994 DTAP/TDAP/TD VACCINES ([address] [facility] 00:00:00 - Tdap) [code = Medical Cent er DTAP/TDAP/TD VACCINES (1 - Tdap)] Future Scheduled 1994 DTAP/TDAP/TD VACCINES ([address] [facility] 00:00:00 - Tdap) [code = Medical Cent er DTAP/TDAP/TD VACCINES (1 - Tdap)] Future Scheduled 1994 DTAP/TDAP/TD VACCINES ([address] [facility] 00:00:00 - Tdap) [code = Medical Cent er DTAP/TDAP/TD VACCINES (1 - Tdap)] Future Scheduled 1994 DTAP/TDAP/TD VACCINES ([address] [facility] 00:00:00 - Tdap) [code = Medical Cent er DTAP/TDAP/TD VACCINES (1 - Tdap)] Future Scheduled 1994 DTAP/TDAP/TD VACCINES ([address] [facility] 00:00:00 - Tdap) [code = Medical Cent er DTAP/TDAP/TD VACCINES (1 - Tdap)] Future Scheduled 1994 DTAP/TDAP/TD VACCINES ([address] [facility] 00:00:00 - Tdap) [code = Medical Cent er DTAP/TDAP/TD VACCINES (1 - Tdap)] Future Scheduled 1994 DTAP/TDAP/TD VACCINES ([address] [facility] 00:00:00 - Tdap) [code = Medical Cent er DTAP/TDAP/TD VACCINES (1 - Tdap)] Future Scheduled 1994 DTAP/TDAP/TD VACCINES ([address] [facility] 00:00:00 - Tdap) [code = Medical Cent er DTAP/TDAP/TD VACCINES (1 - Tdap)] Future Scheduled 1994 DTAP/TDAP/TD VACCINES ([address] [facility] 00:00:00 - Tdap) [code = Medical Cent er DTAP/TDAP/TD VACCINES (1 - Tdap)] Future Scheduled [...] HEPATITIS C Medical Center SCREENING] Future Scheduled [address] [facility] virus screening Medical Cent er (procedure) [code = 527516775] Future Scheduled [address] Human immunodeficiency [facility] 00:[facility]:00 virus screening Medical Cent er (procedure) [code = 885423632] Future Scheduled [address] Human [address] [facility] 00:[facility]:00 virus screening Medical Cent er (procedure) [code = 083498680] Future Scheduled 1976-04-19 COVID-19 VACCINE (#1) [facility] [code = COVID-19 VACCINE Med ical Center (#1)] Future Scheduled 1976-04-19 COVID-19 VACCINE (#1) [facility] [code = COVID-19 VACCINE Med ical Center (#1)] Future Scheduled 1976-04-19 COVID-19 VACCINE (#1) [facility] [code = COVID-19 VACCINE Med ical Center (#1)] Future Scheduled 1976-04-19 COVID-19 VACCINE (#1) [facility] [code = COVID-19 VACCINE Med ical Center (#1)] Future Scheduled 1976-04-19 COVID-19 VACCINE (#1) [facility] [code = COVID-19 VACCINE Med ical Center (#1)] Future Scheduled 1976-04-19 COVID-19 VACCINE (#1) [facility] [code = COVID-19 VACCINE Med ical Center (#1)] Future Scheduled 1976-04-19 COVID-19 VACCINE (#1) [facility]00 [code = COVID-19 VACCINE Med ical Center (#1)] Future Scheduled 1976-04-19 COVID-19 VACCINE (#1) [facility]:00 [code = COVID-19 VACCINE Med ical Center (#1)] Future Scheduled 1976-04-19 COVID-19 VACCINE (#1) [facility] [code = COVID-19 VACCINE Med ical Center (#1)] Future Scheduled 1976-04-19 COVID-19 VACCINE (#1) [facility] [code = COVID-19 VACCINE Med ical Center (#1)] Future Scheduled 1976-04-19 COVID-19 VACCINE (#1) [facility] [code = COVID-19 VACCINE Med ical Center (#1)] Future Scheduled 1976-04-19 COVID-19 VACCINE (#1) [facility] [code = COVID-19 VACCINE Med ical Center (#1)] Future Scheduled 1976-04-19 COVID-19 VACCINE (#1) [facility] [code = COVID-19 VACCINE Med ical Center (#1)] Future Scheduled 1975 CT Colonography (combo) [facility] 00:00:00 [code = CT Colonography Medi jf Center (combo)] Future Scheduled 1975 Screening for malignant [facility] 00:00:00 neoplasm of colon Medical Ce nter (procedure) [code = 805980922] Future Scheduled 1975 Screening for malignant [facility] 00:00:00 neoplasm of colon Medical Ce nter (procedure) [code = 912209093] Future Scheduled 1975 Sigmoidoscopy [code = [facility] S[facility]oidoscopy] Medical Cente r Future Scheduled 1975 CT Colonography (combo) [facility] 00:00:00 [code = CT Colonography Medi jf Center (combo)] Future Scheduled 1975 Screening for malignant [facility] 00:00:00 neoplasm of colon Medical Ce nter (procedure) [code = 519293185] Future Scheduled 1975 Screening for malignant [facility] 00:00:00 neoplasm of colon Medical Ce nter (procedure) [code = 237367636] Future Scheduled 1975 Sigmoidoscopy [code = [facility] S[facility]oidoscopy] Medical Cente r Future Scheduled 1975 CT Colonography (combo) [facility] 00:00:00 [code = CT Colonography Medi jf Center (combo)] Future Scheduled 1975 Screening for malignant [facility] 00:00:00 neoplasm of colon Medical Ce nter (procedure) [code = 478292691] Future Scheduled 1975 Screening for malignant [facility] 00:00:00 neoplasm of colon Medical Ce nter (procedure) [code = 215854167] Future Scheduled 1975 Sigmoidoscopy [code = [facility] S[facility]oscopy] Medical Cente r Future Scheduled 1975 CT Colonography (combo) [facility] 00:00:00 [code = CT Colonography [facility] (combo)] Future Scheduled 1975 Screening for malignant [facility] 00:00:00 neoplasm of colon Medical Ce nter (procedure) [code = 307439779] Future Scheduled 1975 Screening for malignant [facility] 00:00:00 neoplasm of colon Medical Ce nter (procedure) [code = 359470651] Future Scheduled 1975 Sigmoidoscopy [code = [facility] S[facility]oidoscopy] Medical Cente r Future Scheduled 1975 CT Colonography (combo) [facility] 00:00:00 [code = CT Colonography [facility] (combo)] Future Scheduled 1975 Screening for malignant [facility] 00:00:00 neoplasm of colon Medical Ce nter (procedure) [code = 545238859] Future Scheduled 1975 Screening for malignant [facility] 00:00:00 neoplasm of colon Medical Ce nter (procedure) [code = 457526834] Future Scheduled 1975 Sigmoidoscopy [code = [facility] S[facility]oidoscopy] Medical Cente r Future Scheduled 1975 CT Colonography (combo) [facility] 00:00:00 [code = CT Colonography [facility] (combo)] Future Scheduled 1975 Screening for malignant [facility] 00:00:00 neoplasm of colon Medical Ce nter (procedure) [code = 056400686] Future Scheduled 1975 Screening for malignant [facility] 00:00:00 neoplasm of colon Medical Ce nter (procedure) [code = 745936344] Future Scheduled 1975 Sigmoidoscopy [code = [facility] S[facility]oidoscopy] Medical Cente r Future Scheduled 1975 CT Colonography (combo) [facility] 00:00:00 [code = CT Colonography [facility] (combo)] Future Scheduled 1975 Screening for malignant [facility] 00:00:00 neoplasm of colon Medical Ce nter (procedure) [code = 650782202] Future Scheduled 1975 Screening for malignant [facility] 00:00:00 neoplasm of colon Medical Ce nter (procedure) [code = 101674008] Future Scheduled 1975 Sigmoidoscopy [code = [facility] S[facility]oidoscopy] Medical [place] r Future Scheduled 1975 CT Colonography (combo) [facility] 00:00:00 [code = CT Colonography [facility] (combo)] Future Scheduled 1975 Screening for malignant [facility] 00:00:00 neoplasm of colon Medical Ce nter (procedure) [code = 921853195] Future Scheduled 1975 Screening for malignant [facility] 00:00:00 neoplasm of colon Medical Ce nter (procedure) [code = 041671021] Future Scheduled 1975 Sigmoidoscopy [code = [facility] S[facility]oidoscopy] Medical [facility] r Future Scheduled 1975 CT Colonography (combo) [facility] 00:00:00 [code = CT Colonography Medi jf Center (combo)] Future Scheduled 1975 Screening for malignant [facility] 00:00:00 neoplasm of colon Medical Ce nter (procedure) [code = 841116510] Future Scheduled 1975 Screening for malignant [facility] 00:00:00 neoplasm of colon Medical Ce nter (procedure) [code = 014111977] Future Scheduled 1975 Sigmoidoscopy [code = [facility] S[facility]oidoscopy] Medical [place] r Future Scheduled 1975 CT Colonography (combo) [facility] 00:00:00 [code = CT Colonography Medi jf Center (combo)] Future Scheduled 1975 Screening for malignant [facility] 00:00:00 neoplasm of colon Medical Ce nter (procedure) [code = 478232121] Future Scheduled 1975 Screening for malignant [facility] 00:00:00 neoplasm of colon Medical Ce nter (procedure) [code = 751514493] Future Scheduled 1975 Sigmoidoscopy [code = [facility] S[facility]oidoscopy] Medical Cente r Future Scheduled 1975 CT Colonography (combo) [facility] 00:00:00 [code = CT Colonography Medi jf Center (combo)] Future Scheduled 1975 Screening for malignant [facility] 00:00:00 neoplasm of colon Medical Ce nter (procedure) [code = 918487160] Future Scheduled 1975 Screening for malignant [facility] 00:00:00 neoplasm of colon Medical Ce nter (procedure) [code = 647816737] Future Scheduled 1975 Sigmoidoscopy [facility]code = [facility] S[facility]oidoscopy] Medical Cente r Future Scheduled 1975 CT Colonography (combo) [facility] 00:00:00 [code = CT Colonography [facility] (combo)] Future Scheduled 1975 Screening for malignant [facility] 00:00:00 neoplasm of colon Medical Ce nter (procedure) [code = 171977112] Future Scheduled 1975 Screening for malignant [facility] 00:00:00 neoplasm of colon Medical Ce nter (procedure) [code = 546941154] Future Scheduled 1975 Sigmoidoscopy [facility]code = [facility] S[facility]oidoscopy] Medical Cente r Future Scheduled 1975 CT Colonography (combo) [facility] 00:00:00 [code = CT Colonography Medi jf Center (combo)] Future Scheduled 1975 Screening for malignant [facility] 00:00:00 neoplasm of colon Medical Ce nter (procedure) [code = 688668474] Future Scheduled 1975 Screening for malignant [facility] 00:00:00 neoplasm of colon Medical Ce nter (procedure) [code = 677337365] Future Scheduled 1975 Sigmoidoscopy [facility]code [facility] S[facility]oidoscopy] Medical Cente r Encounters Start End Encounter Admission Attending Care Care Encounter Source Date/Time Date/Time Type Type Clinicians Facility Department ID 2023-04-16 Inpatient ER SYDNEE PAINTER [facility] [id number] [facility] 13:57:20 HONE[facility] 2023-04-14 Inpatient ER AKIN [facility] [id number] SLE 12:09:09 2023-04-11 [id number] 10:08:27 HONEY 2023-04-22 2023-04-22 Outpatient [facility] [id number] SLE 13:46:53 13:46:53 2023-04-21 2023-04-[address] [facility] [id number] 16:15:00 16:30:00 Patient [facility]ian[facility] 2023-04-21 2023-04-21 [facility] [id number] 16:15:00 16:30:00 Patient Kianna [facility] 2023-04-11 2023-04-16 [facility] [id number] 05:36:00 17:06:00 Encounter Honey Painter [facility] 2023-04-11 2023-04-16 [facility] [id number] 05:36:00 17:06:00 Encounter Honey Painter skip [facility] 2023-04-11 2023-04-16 Inpatient ER SYDNEE PAINTER [facility] [id number] SLE 05:36:00 17:06:00 [facility] 2023-04-11 2023-04-[address] [facility] [id number] [facility]00 [facility] 2023-04-11 2023-04-[address] [facility] [id number] [facility] 00:[facility]:00 [facility] 2023-02-20 2023-02-[address] [facility] [facility] [id number] [facility] 06[facility]01:00 16:25:00 Encounter Kari Guerra [facility], [facility] 2023-02-20 2023-02-[address] [facility] [id number] [facility] 06:01:00 16:25:00 Encounter Kari Guerra Desi [facility], [facility] 2023-02-20 2023-02-26 Inpatient ER [facility] [id number] SLE 06:01:00 16:25:00 [facility] 2022-11-29 2022-11-29 Outpatient [facility] [id number] SLE 16:42:58 16:42:58 2022-11-29 2022-11-[address] [facility] [id number] 14:30:00 14:45:00 Only [facility] 2022-11-29 2022-11-29 Orders EL Radha Burch [facility] [id number] 14:30:00 14:45:00 Only [facility] 2022-09-24 2022-09-26 [facility] [id number] 03:04:00 15:42:00 Encounter Stefano Brumfield In [facility] 2022-09-24 2022-09-26 [facility] [id number] 03:04:00 15:42:00 Encounter Stefano Brumfield In [facility] 2022-09-24 2022-09-26 [facility] [id number] [facility] 03:04:00 15:42:00 TENISHAG 2022-09-06 2022-09-[address] [facility] [address] [facility] [id number] [facility] 21:10:00 16:18:00 Encounter Debi Briggs [facility], [facility], [facility] 2022-09-06 2022-09-11 [facility] [id number] [facility] 21:10:00 16:18:00 Encounter Debi Briggs [facility], [facility], [facility] 2022-09-06 2022-09-11 Inpatient ER [facility] Emergency [id number] SLE 21:10:00 16:18:00 [facility] 2022-09-06 2022-09-[address] [facility] [id number] [facility] 00:00[facility]00 00:00:00 [facility] 2022-09-06 2022-09-[address] [facility] [id number] 00:00:00 00:00:[address] [facility] 2022-09-06 2022-09-[address] [facility] [id number] 00:00:00 00:00:[address] [facility] 2022-09-06 2022-09-[address] [facility] [id number] [facility] 00:00[facility]00 00:00:00 [facility] 2022-07-06 2022-07-06 Outpatient [facility] [id number] SLE 09:35:01 09:35:01 2022-07-05 2022-07-[address] [facility] [id number] 14:15:00 14:30:00 Only Oksana Bourne [facility] 2022-07-05 2022-07-[address] [facility] [id number] 14:15:00 14:30:00 [facility] 2022-06-27 2022-06-27 [facility] [place] [id number] 01:04:00 06:00:00 [facility] 2022-06-27 2022-06-27 Emergency ER [place], [facility] [id number] 01:04:00 06:00:00 [facility] 2022-06-27 2022-06-27 Emergency ER [facility], [facility] Emergency [id number] SLE 01:04:00 06:00:00 2022-06-27 2022-06-[address] [facility] [id number] [facility]00 00:00:00 [facility] 2022-06-27 2022-06-[address] [facility] [id number] [facility] 00:00:00 00:00:00 [facility] 2022-06-18 2022-06-22 [facility] [id number] 17:52:00 19:32:00 Encounter Chaparro Farah, [facility] 2022-06-18 2022-06-22 [facility] [id number] 17:52:00 19:32:00 Encounter Chaparro Farah, [facility] 2022-06-18 2022-06-22 Inpatient ER [facility] Emergency [id number] SLE 17:52:00 19:32:00 [facility] 2022-06-18 2022-06-[address] [facility] [id number] 00:00:00 00:00:[address] [facility] 2022-06-18 2022-06-[address] [facility] [id number] [facility] 00:00[facility]00 00:00:00 [facility] 2022-06-18 2022-06-[address] [facility] [id number] 00:00:00 00:00:[address] [facility] 2022-06-18 2022-06-[address] [facility] [id number] [facility] 00:00:00 00:00:00 [facility] 2022-01-18 2022-01-18 Outpatient [facility] [id number] SLE 17:05:19 17:05:19 2022-01-14 2022-01-14 Orders EL Quyen, [facility] [id number] 12:00:00 12:15:[address] [facility] 2022-01-01 2022-01-01 Outpatient [facility] [id number] SLE 15:16:13 15:16:13 2021-12-30 2021-12-30 Orders EL Radha Burch [facility] [id number] 16:15:00 16:30:00 Only [facility] 2021-12-05 2021-12-09 Inpatient ER GABRIEL, [facility] Emergency [id number] SLE 07:23:00 14:47:00 [facility] 2021-12-05 2021-12-09 Hospital ER Jacob Calle [facility] [id number] [facility] 07:23:00 14:47:00 Encounter Honey Painter [facility] 2021-11-25 2021-12-01 Inpatient ER CALIN, [facility] Emergency [id number] SLE 00:40:00 12:00:[address] [facility] 2021-11-25 2021-12-01 [facility] ER Brad Galindo [facility] [id number] 00:40:00 12:00:00 [facility] 2021-11-25 2021-11-[address] [facility] [id number] [facility] 00:00:00 00:00:00 [facility] 2021-11-13 2021-11-14 Emergency ER KENT, [facility] Emergency [id number] [facility] 19:43:00 04:21:00 [facility] 2021-11-13 2021-11-14 Emergency ER Kent, [facility] [id number] 19:43:00 04:21:00 [facility] 2021-11-13 2021-11-[address] [facility] [id number] 00:00:00 00:00:[address] [facility] 2021-11-13 2021-11-[address] [facility] [id number] [facility] 00:00[facility]00 00:00:00 [facility] 2021-08-13 2021-08-13 Outpatient TERRANCE GEORGE [facility] SLE [id number] [facility] 00:00:00 00:00:00 WILLIS 2021-08-01 2021-08-06 Inpatient ER [facility] Emergency [id number] [facility] 18:35:00 16:55:00 [facility] 2021-08-01 2021-08-06 Hospital ER [facility] [id number] 18:35:00 16:55:00 Encounter Balwinder [facility] 2021-08-01 2021-08-[address] [facility] [id number] [facility] 00:00[facility]00 00:00:00 [facility] 2021-04-12 2021-04-12 Emergency ER SLE Emergency [id number] [facility] 20:54:00 20:54:00 2021-03-26 2021-03-26 Outpatient EL SLE [facility] [id number] [facility] 00:00:00 00:00:00 2021-02-19 2021-02-19 Emergency ER SLE Emergency [id number] [facility] 15:12:00 15:12:00 2021-01-06 2021-01-06 Outpatient SYDNEE NAPIER SLE [id number] SLE 00:00:00 [facility]00[facility] 2021-01-06 2021-01-06 Outpatient EL QUYEN SLEYeni SLE [id number] [facility] 00:00:00 00:00:00 [facility] 2021-01-06 2021-01-06 Outpatient TERRANCE SLE SLE [id number] [facility] 00:00:00 00:00:00 2020-10-25 2020-10-25 Emergency ER [facility] Emergency [id number] SLE 00:15:00 00:15:00 2020-10-19 2020-10-19 Emergency ER [facility] Emergency [id number] SLE 18:18:00 18:18:00 2020-10-18 2020-10-19 Emergency [facility] [id number] 21:04:00 01:30:00 Shannon Contreras [id number] [place] [id number] [place] [id number] [facility] 2020-10-18 2020-10-19 [facility] [id number] [facility] 21:04:00 01:30:00 Shannon Contreras [id number] [facility] [id number] [facility] [id number] 2020-10-18 2020-10-18 [facility] [id number] [facility] 21:04:00 21:04:[address] [facility] 2020-10-14 2020-10-14 Emergency ER [facility] Emergency [id number] SLE 23:24:00 23:24:00 2020-06-07 2020-06-07 Emergency ER [facility] Emergency [id number] SLE 18:37:00 18:37:00 2020-05-06 2020-05-06 Emergency ER [facility] Emergency [id number] [facility] 20:45:00 20:45:00 2020-04-17 2020-04-17 Emergency ER [facility] Emergency [id number] SLE 06:45:00 06:45:00 2020-04-17 2020-04-17 Emergency ER [facility] [id number] [facility] 00:00:00 00:00:00 Results Test Description Test Time Test Comments Results Result Comments Source Fungus culture + smear 2023-05-20 07:46:55 Test Item Value Reference Range Interpretation Comme nts Result (test code = 6463-4) No fungus isolated to date; additional report will follow if positive. Fungus Smear (test code = 1406) [facility] fungal elements [facility] [id number] 07:46:55 Test Item Value Reference Range Interpretation Comments Result (test code = No fungus isolated to 6463-4) date; additional report will follow if positive. Fungus Smear (test No fungal elements seen code = 1406) [facility] + [id number] 07:46:55 Test Item Value Reference Range Interpretation Comments Result (test code = No fungus isolated to 6463-4) date; additional report will follow if positive. Fungus Smear (test No fungal elements seen code = 1406) [facility] + [id number] 07:46:55 Test Item Value Reference Range Interpretation Comments CULTURE (BEAKER) No fungus isolated to (test code = 1095) date; additional report will follow if positive. FUNGUS SMEAR (BEAKER) No fungal elements seen (test code = 1406) [facility]2023-04-25 12:13:05 Test Item Value Reference Range Interpretation Comments Result (test code = 1+ Beta-hemolytic A 6463-4) streptococcus group B, by serological grouping SHANA (test code = SHANA) 4+ Normal respiratory maria del carmen present Lab Interpretation Abnormal (test code = 56873-7) [facility] ([facility] only)2023-04-25 12:13:05 Test Item Value Reference Range Interpretation Comments Result (test code = 1+ Beta-hemolytic A 6463-4) streptococcus group B, by serological grouping SHANA (test code = SHANA) 4+ Normal respiratory maria del carmen present Lab Interpretation Abnormal (test code = 09376-2) [facility]2023-04-25 12:13:05 Test Item Value Reference Range Interpretation Comments Result (test code = 1+ Beta-hemolytic A 6463-4) streptococcus group B, by serological grouping SHANA (test code = SHANA) 4+ Normal respiratory maria del carmen present Lab Interpretation Abnormal (test code = 97619-3) [facility] [id number] 12:13:05 Test Item Value Reference Range Interpretation Comments CULTURE (BEAKER) A 1+ Beta-hem olytic (test code = 1095) streptoco ccus group B, by serological rc uping 4+ Normal respiratory maria del carmen presentSPIN/CONCENTRATION [id number] 14:31:51 Test Item Value Reference Range Interpretation Comments Concentration charged (test code = Done 2627) [facility] [id number] 14:31:51 Test Item Value Reference Range Interpretation Comments Concentration charged (test code = Done 265) [facility] [id number] 14:31:51 Test Item Value Reference Range Interpretation Comments Concentration charged (test code = Done 265) [facility] [id number] 14:31:51 Test Item Value Reference Range Interpretation Comments CONCENTRATION CHARGED (BEAKER) (test Done code = 2657) XR ABDOMEN/KUB 1 VIEW [id number] 14:59:45 [facility] 1975 Sex: MAbdomen , one viewHistory:Abdominal distentionComparison:04/14/2023Findings:Nonspecific mild prominenceof the small and large bowel, similar toprevious study. No definite free air, although assessment istechnically limited by supine patient positioning. No definite bowelpneumatosis or portal venous gas.No calcifications along the expectedcourse of the urinary tract.IMPRESSION:Impression:No significantinterval change.Electronically Signed By: Bennett Tran MD04/16/2023 15:01 CDTWorkstation Name: [id number] 08:33:58 Test Item Value Reference Range Interpretation Comments MAGNESIUM (BEAKER) (test code = 1.7 mg/dL 1.6-2.6 627) [employer] ID - [id number] 08:33:58 Test Item Value Reference Range Interpretation Comments PHOSPHORUS (BEAKER) (test code = 4.0 mg/dL 2.3-4.7 604) [employer] Manager ID - MARCOBASIC METABOLIC [id number] 08:33:57 Test Item Value Reference Range Interpretation Comments SODIUM (BEAKER) 138 meq/L 136-145 (test code = 381) POTASSIUM 4.7 meq/L 3.5-5.1 (BEAKER) (test code = 379) CHLORIDE (BEAKER) 104 meq/L 98-107 (test code = 382) CO2 (BEAKER) 26 meq/L 22-29 (test code = 355) BLOOD UREA 6 mg/dL 7-21 L NITROGEN (BEAKER) (test code = 354) CREATININE 1.21 mg/dL 0.57-1.25 (BEAKER) (test code = 358) GLUCOSE RANDOM 89 mg/dL 70-105 (BEAKER) (test code = 652) CALCIUM (BEAKER) 8.8 mg/dL 8.4-10.2 (test code = 697) EGFR (BEAKER) 75 Interpretatio n of eGFR (test code = [...] not appl icable for dialysis patien ts [employer] Manager ID - [id number] 06:54:06 Test Item Value Reference Range Interpretation Comments MAGNESIUM (BEAKER) (test code = 1.6 mg/dL 1.6-2.6 627) [employer]ed [employer] Manager ID - [id number] 06:54:06 Test Item Value Reference Range Interpretation Comments PHOSPHORUS (BEAKER) (test code = 3.6 mg/dL 2.3-4.7 604) [employer] Manager ID - MARCOBASIC METABOLIC [id number] 06:54:05 Test Item Value Reference Range Interpretation Comments SODIUM (BEAKER) 138 meq/L 136-145 (test code = 381) POTASSIUM 4.3 meq/L 3.5-5.1 (BEAKER) (test code = 379) CHLORIDE (BEAKER) 102 meq/L 98-107 (test code = 382) CO2 (BEAKER) 28 meq/L 22-29 (test code = 355) BLOOD UREA 4 mg/dL 7-21 L NITROGEN (BEAKER) (test code = 354) CREATININE 1.15 mg/dL 0.57-1.25 (BEAKER) (test code = 358) GLUCOSE RANDOM 106 [...] not appl icable for dialysis patien ts [employer] Manager ID - AGATHAOXR ABDOMEN/KUB 1 VIEW [id number] 14:40:26 [facility] 1975 Sex: MCLINICAL HISTORY: DIOSTECHNIQUE: Supine abdomenCOMPARISON: 04/11/2023IMPRESSION:Previous colonic stool as mostly evacuated. There is new nonspecificmild gaseous prominence of small bowel throughout the abdomen. Free airand air-fluid levels are not definitively seen, but cannot be excludedon the supine view. Right abdominal chain sutures are again seen.Electronically Signed By: Murray Longo04/14/2023 14:52 CDTWorkstation Name: [id number] 04:59:53 Test Item Value Reference Range Interpretation Comments PHOSPHORUS (BEAKER) (test code = 3.3 mg/dL 2.3-4.7 604) [employer]ed Factory Manager ID - DBBASIC METABOLIC [id number] 04:59:52 Test Item Value Reference Range Interpretation Comments SODIUM (BEAKER) 137 meq/L 136-145 (test code = 381) POTASSIUM 4.0 meq/L 3.5-5.1 (BEAKER) (test code = 379) CHLORIDE (BEAKER) 103 meq/L 98-107 (test code = 382) CO2 (BEAKER) 30 meq/L 22-29 H (test code = 355) BLOOD UREA 5 [...] not appl icable for dialysis patien ts [employer] Manager ID - [id number] 04:59:52 Test Item Value Reference Range Interpretation Comments MAGNESIUM (BEAKER) (test code = 1.5 mg/dL 1.6-2.6 L 627) [employer] Manager ID - [id number] 04:42:01 Test Item Value Reference Range Interpretation Comments MAGNESIUM (BEAKER) (test code = 1.7 mg/dL 1.6-2.6 627) [employer] Manager ID - [id number] 04:42:01 Test Item Value Reference Range Interpretation Comments PHOSPHORUS (BEAKER) (test code = 2.9 mg/dL 2.3-4.7 604) [employer] Manager ID - ADMINBASIC METABOLIC [id number] 04:42:00 Test Item Value Reference Range Interpretation Comments SODIUM (BEAKER) 137 meq/L 136-145 (test code = 381) POTASSIUM 3.9 meq/L 3.5-5.1 (BEAKER) (test code = 379) CHLORIDE (BEAKER) 103 meq/L 98-107 (test code = 382) CO2 (BEAKER) 29 meq/L 22-29 (test code = 355) BLOOD [...] not appl icable for dialysis patien ts [employer] Manager ID - [id number] 04:49:25 Test Item Value Reference Range Interpretation Comments PHOSPHORUS (BEAKER) (test code = 3.1 mg/dL 2.3-4.7 604) [employer] Factory Manager ID - EOOBASIC METABOLIC [id number] 04:49:24 Test Item Value Reference Range Interpretation Comments SODIUM (BEAKER) 138 meq/L 136-145 (test code = 381) POTASSIUM 4.1 meq/L 3.5-5.1 (BEAKER) (test code = 379) CHLORIDE (BEAKER) 106 meq/L 98-107 (test code = 382) CO2 (BEAKER) 24 meq/L 22-29 (test code = 355) BLOOD UREA 7 mg/dL 7-21 NITROGEN (BEAKER) (test code = 354) CREATININE 0.94 mg/dL 0.57-1.25 (BEAKER) (test code = 358) GLUCOSE RANDOM 83 mg/dL 70-105 (BEAKER) (test code = 652) CALCIUM (BEAKER) 8.7 mg/dL 8.4-10.2 (test code = 697) EGFR (BEAKER) 102 Interpretatio n of eGFR (test code = [...] not appl icable for dialysis patien ts [employer] Manager ID - [id number] 04:49:24 Test Item Value Reference Range Interpretation Comments MAGNESIUM (BEAKER) (test code = 2.2 mg/dL 1.6-2.6 627) [employer] Manager ID - EOOPOC-Glucose [id number] 16:47:48 Test Item Value Reference Range Interpretation Comments POC-Glucose Meter (test 95 mg/dL 70-110 : TE STED AT [facility] code = 1538) [address] [facility], [address]: Focused Factory Manager/Techni rian ID = [id number] for Faiza-Riki (contract), Jailyn velázqueza Lab Interpretation (test Normal code = 96060-7) [facility] [id number] 16:47:48 Test Item Value Reference Range Interpretation Comments POC-Glucose Meter (test 95 mg/dL 70-110 : TE STED AT [facility] code = 1538) [address] [facility], [address]: Focused Factory Manager/Techni rian ID = [id number] for Kendall-Dilciaad (contract), Jailyn gilmore Lab Interpretation (test Normal code = 49088-7) [facility]-Glucose [id number] 16:47:48 Test Item Value Reference Range Interpretation Comments POC-Glucose Meter (test 95 mg/dL 70-110 : TE STED AT [facility] code = 1538) [address] [facility], [address]: Focused Factory Manager/Techni rian ID = [id number] for Kendall-Dilciaad (contract), Jailyn gilmore Lab Interpretation (test Normal code = 53852-8) [facility]-GLUCOSE [id number] 16:47:48 Test Item Value Reference Range Interpretation Comments POC-GLUCOSE METER 95 mg/dL 70-110 : TESTED A T [facility] [address] (BEAKER) (test code [facility], = 1538) [address]: Focused Factory Manager/Techni rian ID = [id number] for Faiza-Dilciaad (contract), Jailyn gilmore HEMOGLOBIN [id number] 12:17:52 Test Item Value Reference Range Interpretation Comments HEMOGLOBIN A1C 5.9 % See_Comment H [Automated m essage] ELECTROPHORESIS (AKER) The system which (test code = 3811) generated this result transmitted ref erence range: <=5.6%. The reference range was not used to int erpret this result as normal/abnormal . "The A1c is measured using a NGSP-certified method. HbA1c value equal to or greater than 6.5% as thediagnosis cutoff for diabetes. An HbA1c value of 5.7- 6.4% indicates increased risk for diabetes (prediabetes)."Focused Factory Manager ID - [id number] ID - ADMXR ABDOMEN/KUB 1 VIEW [id number] 12:04:44 [facility] 1975 Sex: MCLINICAL HISTORY: constipationTECHNIQUE: Supine abdomenCOMPARISON: 02/20/2023IMPRESSION:There is a large amount of stool throughout the colon. There are a fewmildly prominent air- filled loops of small bowel in the central abdomen.Free air and air-fluid levels are not definitively seen, but cannot beexcluded on the supine view.Electronically Signed By: Murray Longo04/11/2023 12:06 CDTWorkstation Name: [id number] 10:41:46 Test Item Value Reference Range Interpretation Comments PHOSPHORUS (BEAKER) 2.7 mg/dL 2.3-4.7 Specimen slightly (test code = 604) hemolyzed Focused Factory Manager ID - MARCOCOMPREHENSIVE METABOLIC [id number] 10:41:46 Test Item Value Reference Range Interpretation Comments TOTAL PROTEIN 6.3 gm/dL 6.0-8.3 Specimen sligh tly (BEAKER) (test hemolyzed code = 770) ALBUMIN (BEAKER) 3.7 g/dL 3.5-5.0 Specimen sl ightly (test code = 1145) hemolyzed ALKALINE 78 U/L 40-150 PHOSPHATASE (BEAKER) (test code = 346) BILIRUBIN TOTAL 0.8 mg/dL 0.2-1.2 Specimen sli ghtly (BEAKER) (test hemolyzed code = 377) SODIUM (BEAKER) 137 meq/L 136-145 (test code = 381) POTASSIUM (BEAKER) 4.1 meq/L 3.5-5.1 Specimen slightly (test code = 379) hemolyzed CHLORIDE (BEAKER) 107 meq/L 98-107 (test code = 382) CO2 (BEAKER) (test 26 meq/L 22-29 code = 355) BLOOD UREA 8 mg/dL 7-21 NITROGEN (BEAKER) (test code = 354) CREATININE 1.06 mg/dL 0.57-1.25 Specimen slight ly (BEAKER) (test hemolyzed code = 358) GLUCOSE RANDOM 85 mg/dL 70-105 (BEAKER) (test code = 652) CALCIUM (BEAKER) 8.8 mg/dL 8.4-10.2 (test code = 697) AST (SGOT) 24 U/L 5-34 Specimen slight ly (BEAKER) (test hemolyzed code = 353) ALT (SGPT) 31 U/L 6-55 Specimen slight ly (BEAKER) (test hemolyzed code = 347) EGFR (BEAKER) 88 Interpretatio n of eGFR [...] not appl icable for dialysis patien ts [employer]ed [employer] Manager ID - MARCOGAMMA GLUTAMYL TRANSFERASE (GGT)2023-04-11 10:41:46 Test Item Value Reference Range Interpretation Comments GAMMA GLUTAMYL 24 U/L 9-64 Specimen slig htly TRANSFERASE (BEAKER) hemolyz ed (test code = 364) [employer] Manager ID - [id number] 10:41:45 Test Item Value Reference Range Interpretation Comments MAGNESIUM (BEAKER) 1.5 mg/dL 1.6-2.6 L Specimen slightly (test code = 627) hemolyzed Focused Factory Manager ID - MARCOCBC W/PLT COUNT & AUTO [id number] 10:22:44 Test Item Value Reference Range Interpretation Comments WHITE BLOOD CELL COUNT (BEAKER) 6.6 K/ L 3.5-10.5 (test code = 775) RED BLOOD CELL COUNT (BEAKER) 3.98 M/ L 4.63-6.08 L (test code = [...] code = 412) PLATELET COUNT (BEAKER) (test 186 K/CU MM 150-450 code = 756) MEAN [...] (test code = 437) NEUTROPHILS ABSOLUTE COUNT 4.31 K/ L 1.78-5.38 (BEAKER) (test code = 670) LYMPHOCYTES ABSOLUTE COUNT 1.54 K/ L 1.32-3.57 (BEAKER) (test code = 414) MONOCYTES ABSOLUTE COUNT (BEAKER) 0.49 K/ L 0.30-0.82 (test code = 415) EOSINOPHILS ABSOLUTE COUNT 0.18 K/ L 0.04-0.54 (BEAKER) (test code = 416) BASOPHILS ABSOLUTE COUNT (BEAKER) 0.04 K/ L 0.01-0.08 (test code = 417) IMMATURE GRANULOCYTES-RELATIVE 0.30 % 0.00-1.00 PERCENT (BEAKER) (test code = 2801) BASIC METABOLIC [id number] 06:35:51 Test Item Value Reference Range Interpretation Comments SODIUM (BEAKER) 135 meq/L 136-145 L (test code = 381) POTASSIUM 4.0 meq/L 3.5-5.1 (BEAKER) (test code = 379) CHLORIDE (BEAKER) 103 meq/L 98-107 (test code = 382) CO2 (BEAKER) 24 meq/L 22-29 (test code = 355) BLOOD UREA 4 mg/dL 7-21 L NITROGEN (BEAKER) (test code = 354) CREATININE 1.18 mg/dL 0.57-1.25 (BEAKER) (test code = 358) GLUCOSE RANDOM 81 mg/dL 70-105 (BEAKER) (test code = 652) CALCIUM (BEAKER) 8.8 mg/dL 8.4-10.2 (test code = 697) EGFR (BEAKER) 78 Interpretati on of eGFR (test code = [...] not appl icable for dialysis patien ts [employer]ed [employer] Manager ID - MMCBC W/PLT COUNT & AUTO [id number] 06:21:41 Test Item Value Reference Range Interpretation [...] (BEAKER) (test code = 2801) BASIC METABOLIC [id number] 05:53:04 Test Item Value Reference Range Interpretation [...] not appl icable for dialysis patien ts Focused Factory Manager ID - ADMINCBC W/PLT COUNT & AUTO [id number] 05:41:32 Test Item Value Reference Range Interpretation [...] CONCENTRATION Adequate (CELLAVISION)(BEAKER) (test code = 3438) [employer]ed [employer] Manager ID - Felipe Dato-onUser comments: Slide comments:CBC W/PLT COUNT & AUTO [id number] 07:24:48 Test Item Value Reference Range Interpretation [...] (BEAKER) (test code = 413) BASIC METABOLIC [id number] 06:22:11 Test Item Value Reference Range Interpretation [...] not appl icable for dialysis patien ts Focused Factory Manager ID - ADMINBASIC METABOLIC [id number] 05:40:16 Test Item Value Reference Range Interpretation [...] decreased 60-89 G3a Mildl y to moderately 45- 59 G3b Moderately to s everely 30-44 G4 Severl y decreased 15-29 G5 Kidney failure <15Reported eGF R is based on the CKD-EPI 2020 equation that d oes not use a race coefficientEsti mated GFR is not as accur ate as Creatinine Collette samy in predicting glom erular filtration rate . Estimated GFR is not appl icable for dialysis patien ts Focused Factory Manager ID - CHAMP WCBC (HEMOGRAM ONLY)2023-02-23 05:17:12 [...] (BEAKER) (test code = 413) BASIC METABOLIC [id number] 05:17:54 Test Item Value Reference Range Interpretation [...] not appl icable for dialysis patien ts Focused Factory Manager ID - CHAMP WCBC (HEMOGRAM ONLY)2023-02-22 04:51:21 Test Item Value Reference [...] 0-0 (BEAKER) (test code = 413) HEMOGLOBIN [id number] 12:49:22 Test Item Value Reference Range Interpretation Comments HEMOGLOBIN A1C 5.7 % See_Comment H [Automated m essage] ELECTROPHORESIS (BEAKER) The system which (test code = 3811) generated this result transmitted ref erence range: <=5.6%. The reference range was not used to int erpret this result as normal/abnormal . "The A1c is measured using a NGSP-certified method. HbA1c value equal to or greater than 6.5% as thediagnosis cutoff for diabetes. An HbA1c value of 5.7- 6.4% indicates increased risk for diabetes (prediabetes)."Focused Factory Manager ID - ADM [id number] 04:08:29 Test Item Value Reference Range Interpretation Comments MAGNESIUM (BEAKER) (test code = 1.6 mg/dL 1.6-2.6 627) Focused Factory Manager ID - CHAMP WGAMMA GLUTAMYL TRANSFERASE (GGT)2023-02-21 04:08:29 Test Item Value Reference Range Interpretation Comments GAMMA GLUTAMYL TRANSFERASE (BEAKER) 34 U/L 9-64 (test code = 364) Focused Factory Manager ID - CHAMP WBASIC METABOLIC [id number] 04:08:28 Test Item Value Reference Range Interpretation [...] not appl icable for dialysis patien ts Focused Factory Manager ID - CHAMP WRAD, ABDOMEN/KUB, 1 VIEW [id number] 09:37:00Reason for exam:->severe constipation [facility] 1975 Sex: MFINAL REPORT Supine abdomen: [...] bony structures appear intact. Signed: Shyam Fontaine MDReport Verified Date/Time: 02/20/2023 09:37:59 COMPREHENSIVE METABOLIC [id number] 09:23:04 Test Item Value Reference Range Interpretation [...] not appl icable for dialysis patien ts Focused Factory Manager ID - [id number] 09:23:04 Test Item Value Reference Range Interpretation Comments MAGNESIUM (BEAKER) (test code = 1.4 mg/dL 1.6-2.6 L 627) Focused Factory Manager ID - ADMINPROTHROMBIN TIME/[id number] 09:00:22 Test Item Value Reference Range Interpretation [...] mechanical heart valves.CBC W/PLT COUNT & AUTO [id number] 08:59:05 Test Item Value Reference Range Interpretation [...] (test code = 2801) Fungus culture + [id number] 00:42:51 Test Item Value Reference Range Interpretation Comments Result (test code = No fungus isolated in 6463-4) 28 days Fungus Smear (test No fungi seen code = 1406) [facility] [id number] 00:42:51 Test Item Value Reference Range Interpretation Comments Result (test code = No fungus isolated in 6463-4) 28 days Fungus Smear (test No fungi seen code = 1406) [facility] + [id number] 00:42:51 Test Item Value Reference Range Interpretation Comments Result (test code = No fungus isolated in 6463-4) 28 days Fungus Smear (test No fungi seen code = 1406) [facility] + [id number] 00:42:51 Test Item Value Reference Range Interpretation Comments Result (test code = No fungus isolated in 6463-4) 28 days Fungus Smear (test No fungi seen code = 1406) [facility] + [id number] 00:42:51 Test Item Value Reference Range Interpretation Comments CULTURE (BEAKER) (test No fungus isolated in code = 1095) 28 days FUNGUS SMEAR (BEAKER) No fungi seen (test code = 1406) [facility] RESPIRATORY [id number] 12:41:41 Test Item Value Reference Interpretation Comments [...] S [Auto mated message] 1) The system [employer] generated this result transmit joann reference range : Susceptible 0-1 6 , Resistant <0 or >16 . The reference range was not u sed to interpret th is result as normal/abnormal . Aztreonam (test code See_Comment S [Autom ated message] = 32) The system [employer] generated this result transmit joann reference range : Susceptible 0-8 , Resistant <0 or >8 . The reference r taurus was not used to interpret this result as normal/abnormal . Cefepime (test code = See_Comment R [Auto mated message] 51) The system [employer] generated this result transmit joann reference range : Susceptible 0-8 , Resistant <0 or >8 . The reference r taurus was not used to interpret this result as normal/abnormal . Ceftazidime (test See_Comment S [Automate d message] code = 27) The system [employer] generated this result transmit joann reference range : Susceptible 0-8 , Resistant <0 or >8 . The reference r taurus was not used to interpret this result as normal/abnormal . Ciprofloxacin (test See_Comment S [Automa joann message] code = 7) The system [employer] generated this result transmit joann reference range : Susceptible 0-0 .5 , Resistant <0 or >.5 . The reference range was not u sed to interpret th is result as normal/abnormal . Gentamicin (test code See_Comment S [Auto mated message] = 18) The system [employer] generated this result transmit joann reference range : Susceptible 0-4 , Resistant <0 or >4 . The reference r taurus was not used to interpret this result as normal/abnormal . Levofloxacin (test See_Comment S [Automat ed message] code = 22) The system [employer] generated this result transmit joann reference range : Susceptible 0-1 , Resistant <0 or >1 . The reference r taurus was not used to interpret this result as normal/abnormal . Meropenem (test code See_Comment S [Autom ated message] = 34) The system [employer] generated this result transmit joann reference range : Susceptible 0-2 , Resistant <0 or >2 . The reference r taurus was not used to interpret this result as normal/abnormal . Piperacillin (test See_Comment S [Automat ed message] code = 24) The system [employer] generated this result transmit joann reference range [...] <1+ Enterob acter (test code = 1095) KOBVANIA kobvania Amikacin (test code = S 1) Aztreonam [...] 3+ Normal respiratory maria del carmen presentSPIN/CONCENTRATION [id number] 13:00:47 Test Item Value Reference Range Interpretation Comments Concentration charged (test code = Done 2657) [facility] [id number] 13:00:47 Test Item Value Reference Range Interpretation Comments Concentration charged (test code = Done 2657) [facility] [id number] 13:00:47 Test Item Value Reference Range Interpretation Comments Concentration charged (test code = Done 2657) [facility] [id number] 13:00:47 Test Item Value Reference Range Interpretation Comments Concentration charged (test code = Done 2657) [facility] [id number] 13:00:47 Test Item Value Reference Range Interpretation Comments CONCENTRATION CHARGED (BEAKER) (test Done code = 2657) RAD, ABDOMEN/KUB, 1 VIEW [id number] 09:41:00Reason for exam:->constipation [facility] 1975 Sex: MFINAL REPORT Abdomen x-ray Clinical Diagnosis: ConstipationComparison: 09/25/2022Views: Two supine views of abdomen obtained Findings/impression:There is persistent gaseous distention of loops bowel throughout the abdomen, similar to the prior examination. Findings can be seen in the setting of ileus versus distal bowel obstruction. No intraperitoneal free air is appreciated on this supine view examination. Signed: Donato Varela Verified Date/Time: 09/26/2022 09:41:17 BASIC METABOLIC [id number] 08:14:57 Test Item Value Reference Range Interpretation [...] eGFR (test code = mL/min/1.73 values Stage D escription 1092) sq m Result G1 Marlena l [...] not appl icable for dialysis patien ts Focused Factory Manager ID - CHAMP [id number] 08:14:56 Test Item Value Reference Range Interpretation Comments MAGNESIUM (BEAKER) 1.7 mg/dL 1.6-2.6 Specimen slightly (test code = 627) hemolyzed Focused Factory Manager ID - CHAMP WRAD, ABDOMEN/KUB, 1 VIEW [id number] 14:51:00Reason for exam:->constipation [facility] 1975 Sex: MFINAL REPORT TECHNIQUE: RAD, [...] SARS-Co V-2 (test code = target nucleic 82625-2) acids are not detected in thi s [...] revoked sooner. Fact Sheet for Healthcare Providers: https://www.[employer]Documents/Xp ert%20Xpress%20SAR S%20CoV-2/Fact%20S heets/302-3802%20S ARS-COV-2%20HEALTH CARE%20PROVIDERS%2 0FACT%20SHEET.pdf Fact Sheet for Healthcare Patients: https://www.[employer]Documents/Xp ert%20Xpress%20SAR S%20CoV-2/Fact%20S heets/302-3801%20S ARS-COV-2%20PATIEN T%20FACT%20SHEET.p df Lab Interpretation Normal (test code = 28316-1) [facility]Asymptomatic ONLY)2022-09-25 14:50:31 Test Item Value Reference Interpretation Comments Range SARS-COV2/RT-PCR Negative Negative The SARS-Co V-2 (test code = target nucleic 07377-0) acids are not detected in thi s [...] revoked sooner. Fact Sheet for Healthcare Providers: https://www.[employer]Documents/Xp ert%20Xpress%20SAR S%20CoV-2/Fact%20S heets/302-3802%20S ARS-COV-2%20HEALTH CARE%20PROVIDERS%2 0FACT%20SHEET.pdf Fact Sheet for Healthcare Patients: https://www.[employer]Documents/Xp ert%20Xpress%20SAR S%20CoV-2/Fact%20S heets/302-3801%20S ARS-COV-2%20PATIEN T%20FACT%20SHEET.p df Lab Interpretation Normal (test code = 66951-1) [facility] (Asymptomatic ONLY)2022-09-25 14:50:31 Test Item Value Reference Interpretation Comments Range SARS-COV2/RT-PCR Negative Negative The SARS-Co V-2 (test code = target nucleic 04402-1) acids are not detected in thi s [...] revoked sooner. Fact Sheet for Healthcare Providers: https://www.[employer]Documents/Xp ert%20Xpress%20SAR S%20CoV-2/Fact%20S heets/302-3802%20S ARS-COV-2%20HEALTH CARE%20PROVIDERS%2 0FACT%20SHEET.pdf Fact Sheet for Healthcare Patients: https://www.[employer]Documents/Xp ert%20Xpress%20SAR S%20CoV-2/Fact%20S heets/302-3801%20S ARS-COV-2%20PATIEN T%20FACT%20SHEET.p df Lab Interpretation Normal (test code = 52047-5) [facility]2022-09-25 14:50:31 Test Item Value Reference Interpretation Comments Range SARS-COV2/RT-PCR Negative Negative The SARS-Co V-2 (test code = target nucleic 55096-5) acids are not detected in thi s [...] revoked sooner. Fact Sheet for Healthcare Providers: https://www.[employer]Documents/Xp ert%20Xpress%20SAR S%20CoV-2/Fact%20S heets/302-3802%20S ARS-COV-2%20HEALTH CARE%20PROVIDERS%2 0FACT%20SHEET.pdf Fact Sheet for Healthcare Patients: https://www.[employer]Documents/Xp ert%20Xpress%20SAR S%20CoV-2/Fact%20S heets/302-3801%20S ARS-COV-2%20PATIEN T%20FACT%20SHEET.p df Lab Interpretation Normal (test code = 44504-8) [facility]2022-09-25 14:50:31 Test Item Value Reference Interpretation Comments Range SARS-COV2/RT-PCR Negative Negative The SARS-Co V-2 (test code = target nucleic 64383-0) acids are not detected in thi s [...] revoked sooner. Fact Sheet for Healthcare Providers: https://www.[employer]Documents/Xp ert%20Xpress%20SAR S%20CoV-2/Fact%20S heets/302-3802%20S ARS-COV-2%20HEALTH CARE%20PROVIDERS%2 0FACT%20SHEET.pdf Fact Sheet for Healthcare Patients: https://[employer]/Documents/Xp ert%20Xpress%20SAR S%20CoV-2/Fact%20S heets/302-3801%20S ARS-COV-2%20PATIEN T%20FACT%20SHEET.p df Lab Interpretation Normal (test code = 26082-8) [facility]2022-09-25 14:50:31 Test Item Value Reference Interpretation Comments Range SARS-COV2/RT-PCR Negative Negative The SARS-Co V-2 (test code = target nucleic 93806-5) acids are not detected in thi s [...] revoked sooner. Fact Sheet for Healthcare Providers: https://www.[employer]Documents/Xp ert%20Xpress%20SAR S%20CoV-2/Fact%20S heets/302-3802%20S ARS-COV-2%20HEALTH CARE%20PROVIDERS%2 0FACT%20SHEET.pdf Fact Sheet for Healthcare Patients: https://wwwClass[employer]/Documents/Xp ert%20Xpress%20SAR S%20CoV-2/Fact%20S heets/302-3801%20S ARS-COV-2%20PATIEN T%20FACT%20SHEET.p df Lab Interpretation Normal (test code = 88929-6) [facility]2022-09-25 14:50:31 Test Item Value Reference Interpretation Comments Range SARS-COV2/RT-PCR Negative Negative The SARS-Co V-2 (test code = target nucleic 04361-5) acids are not detected in thi s [...] revoked sooner. Fact Sheet for Healthcare Providers: https://www.[employer]Documents/Xp ert%20Xpress%20SAR S%20CoV-2/Fact%20S heets/302-3802%20S ARS-COV-2%20HEALTH CARE%20PROVIDERS%2 0FACT%20SHEET.pdf Fact Sheet for Healthcare Patients: https://www.[employer]Documents/Xp ert%20Xpress%20SAR S%20CoV-2/Fact%20S heets/302-3801%20S ARS-COV-2%20PATIEN T%20FACT%20SHEET.p df Lab Interpretation Normal (test code = 76646-5) [facility]2022-09-25 14:50:31 Test Item Value Reference Interpretation Comments Range SARS-COV2/RT-PCR Negative Negative The SARS-Co V-2 (test code = target nucleic 03783-9) acids are not detected in thi s [...] revoked sooner. Fact Sheet for Healthcare Providers: https://www.[employer]Documents/Xp ert%20Xpress%20SAR S%20CoV-2/Fact%20S heets/302-3802%20S ARS-COV-2%20HEALTH CARE%20PROVIDERS%2 0FACT%20SHEET.pdf Fact Sheet for Healthcare Patients: https://www.[employer]Documents/Xp ert%20Xpress%20SAR S%20CoV-2/Fact%20S heets/302-3801%20S ARS-COV-2%20PATIEN T%20FACT%20SHEET.p df Lab Interpretation Normal (test code = 27646-9) [facility]2022-09-25 14:50:31 Test Item Value Reference Interpretation Comments Range SARS-COV2/RT-PCR Negative Negative The SARS-Co V-2 (test code = target nucleic 25415-9) acids are not detected in thi s [...] revoked sooner. Fact Sheet for Healthcare Providers: https://www.[employer]Documents/Xp ert%20Xpress%20SAR S%20CoV-2/Fact%20S heets/302-3802%20S ARS-COV-2%20HEALTH CARE%20PROVIDERS%2 0FACT%20SHEET.pdf Fact Sheet for Healthcare Patients: https://www.[employer]Documents/Xp ert%20Xpress%20SAR S%20CoV-2/Fact%20S heets/302-3801%20S ARS-COV-2%20PATIEN T%20FACT%20SHEET.p df Lab Interpretation Normal (test code = 77611-7) [facility]2022-09-25 14:50:31 Test Item Value Reference Interpretation Comments Range SARS-COV2/RT-PCR Negative Negative The SARS-Co V-2 (test code = target nucleic 59608-8) acids are not detected in thi s [...] revoked sooner. Fact Sheet for Healthcare Providers: https://www.[employer]Documents/Xp ert%20Xpress%20SAR S%20CoV-2/Fact%20S heets/302-3802%20S ARS-COV-2%20HEALTH CARE%20PROVIDERS%2 0FACT%20SHEET.pdf Fact Sheet for Healthcare Patients: https://www.[employer]Documents/Xp ert%20Xpress%20SAR S%20CoV-2/Fact%20S heets/302-3801%20S ARS-COV-2%20PATIEN T%20FACT%20SHEET.p df Lab Interpretation Normal (test code = 21018-5) [facility])2022-09-25 14:50:31 Test Item Value Reference Range Interpretation Comments SARS-COV2/RT-PCR Negative Negative The SARS-Co V-2 target (test code = nucleic acids a re not 3723729) detected in thi s specimen. Negative result [...] revoked sooner. Fact Sheet for Healthcare Providers: https://www.[employer]/Documents/Xpert%20Xpress%20SARS%20CoV-2/Fact%20Sheets/302-3802%30GHWA-BAE-8%20 HEALTHCARE%20PROVIDERS%20FACT%20SHEET.pdf Fact Sheet for Healthcare Patients: https://www.[employer]/Documents/Xpert%20Xp ress%20SARS%20CoV-2/Fact%20Sheets/302-3801%44DPTJ-WKC-4%20PATIENT%20FACT%20SHEET .pdfRAD, CHEST, 1 VIEW, NON [id number] 11:52:00Reason for exam:->CF patientShould this be performed at the bedside?->Yes [facility] 1975 Sex: MFINAL REPORT INDICATION: CF patient COMPARISON: None TECHNIQUE: Single frontal view of the chest. FINDINGS: Lungs and pleura: Clear lungs. No effusion.Heart and mediastinum: Normal heart size. Unremarkable mediastinal contours.Osseous structures: No acute abnormality.Other: None. IMPRESSION: No acute intrathoracic abnormality. Signed: Esperanza Duque MDReport Verified Date/Time: 09/24/2022 11:52:00 Reading Location: [address] Reading Room HEPATIC FUNCTION [id number] 05:00:50 Test Item Value Reference Range Interpretation [...] (test code = 39 U/L 6-55 347) Focused Factory Manager ID - MARCOBASIC METABOLIC [id number] 05:00:49 Test Item Value Reference Range Interpretation [...] not appl icable for dialysis patien ts [employer]ed [employer] Manager ID - [id number] 05:00:49 Test Item Value Reference Range Interpretation Comments MAGNESIUM (BEAKER) (test code = 1.6 mg/dL 1.6-2.6 627) [employer]ed [employer] Manager ID - [id number] 05:00:49 Test Item Value Reference Range Interpretation Comments PHOSPHORUS (BEAKER) (test code = 3.4 mg/dL 2.3-4.7 604) [employer]ed [employer] Manager ID - MARCOPROTHROMBIN TIME/[id number] 04:40:50 Test Item Value Reference Range Interpretation Comments PROTIME (BEAKER) 15.6 seconds 11.9-14.2 H (test code = 759) INR (BEAKER) (test 1.26 See_Comment [Automat ed message] code = 370) The system [employer] generated this result transmitted ref erence range: <=5.90. The reference range was not used to int erpret this result as normal/abnormal . RECOMMENDED COUMADIN/WARFARIN INR THERAPY RANGESSTANDARD DOSE: 2.0 - 3.0 Includes: PROPHYLAXIS for venous thrombosis, systemic embolization; TREATMENT for venous thrombosis and/or pulmonary embolus.HIGH RISK: Target INR is 2.5-3.5 for patients with mechanical heart valves.CBC W/PLT COUNT & AUTO [id number] 04:31:28 Test Item Value Reference Range Interpretation [...] PERCENT (BEAKER) (test code = 2801) BLOOD [id number] 19:01:42 Test Item Value Reference Range Interpretation Comments CULTURE (BEAKER) (test No growth in 5 days code = 1095) BLOOD [id number] 19:01:42 Test Item Value Reference Range Interpretation Comments CULTURE (BEAKER) (test No growth in 5 days code = 1095) HEPATIC FUNCTION [id number] 06:14:49 Test Item Value Reference Range Interpretation [...] (test code = 17 U/L 6-55 347) [employer]ed [employer] Manager ID - [id number] 06:14:48 Test Item Value Reference Range Interpretation Comments MAGNESIUM (BEAKER) (test code = 1.6 mg/dL 1.6-2.6 627) [employer]ed [employer] Manager ID - [id number] 06:14:48 Test Item Value Reference Range Interpretation Comments PHOSPHORUS (BEAKER) (test code = 3.2 mg/dL 2.3-4.7 604) [employer]ed [employer] Manager ID - BSBASIC METABOLIC [id number] 06:14:47 Test Item Value Reference Range Interpretation [...] not appl icable for dialysis patien ts [employer]ed [employer] Manager ID - BSCBC W/PLT COUNT & AUTO [id number] 05:41:16 Test Item Value Reference Range Interpretation [...] (BEAKER) (test code = 2801) VANCOMYCIN LEVEL, [id number] 08:51:33 Test Item Value Reference Range Interpretation Comments VANCOMYCIN TROUGH (BEAKER) (test 11.3 ug/mL 10.0-20.0 code = 522) [employer]ed Factory Manager ID - [id number] 04:31:45 Test Item Value Reference Range Interpretation Comments MAGNESIUM (BEAKER) (test code = 1.6 mg/dL 1.6-2.6 627) [employer]ed [employer] Manager ID - NEIL [id number] 04:31:45 Test Item Value Reference Range Interpretation Comments PHOSPHORUS (BEAKER) (test code = 3.7 mg/dL 2.3-4.7 604) [employer]ed Factory Manager ID - NEIL MHEPATIC FUNCTION [id number] 04:31:45 Test Item Value Reference Range Interpretation [...] (test code = 16 U/L 6-55 347) Focused Factory Manager ID - NEIL MBASIC METABOLIC [id number] 04:31:44 Test Item Value Reference Range Interpretation [...] not appl icable for dialysis patien ts Focused Factory Manager ID - NEIL MCBC W/PLT COUNT & AUTO [id number] 03:52:06 Test Item Value Reference Range Interpretation [...] (BEAKER) (test code = 2801) U/S, ABDOMINAL, [id number] 21:12:00Abdomen limited area? Add comment if clarification is needed.->GallbladderReason for exam:->fever, abdominal pain, increased T. bili with c/f cholangitis. US to r/o CBD dilatation 2/2 choledocholithiasisShould this be performed at the bedside?->Yes [facility] 1975 Sex: MFINAL REPORT RIGHT UPPER QUADRANT ULTRASOUND History: Fever and abdominal pain.Increased bilirubin and concern for cholangitis Findings: The [...] Date/Time: 09/09/2022 21:12:42 RAD, ABDOMEN/KUB, 1 VIEW [id number] 15:34:00Reason for exam:->f/u abdominal pain/colonic distension [facility] 1975 Sex: MFINAL REPORT RAD, ABDOMEN/KUB, [...] Becerra Verified Date/Time: 09/09/2022 15:34:07 Reading Location: [address] Reading Room Respiratory Panel [id number] 15:22:28 Test Item Value Reference Interpretation Comments Range Human Metapneumovirus Not detected Not detected, (test code = 16866-5) Equivocal Rhinovirus (test code Not detected Not detected, = 28427-4) Equivocal INFLUENZA A (NO SUBTYPE) (test code = 88558-4) Influenza A subtype H1 (test code = 79097-0) Influenza A Subtype H3 (test code = 23331-0) Influenza A Subtype Detected Not detected, A Droplet H1-2009 (test code = [place]. 05782-2) Oseltamivir is the drug of choice. Conside r stopping antibiotics. Influenza B (test Not detected Not detected, code = 80205-4) Equ[employer]ocal Respiratory Syncytial Not detected Not detected, Virus (test code = Equivocal 08801-7) Parainfluenza Virus 1 Not detected Not detected, (test code = 92500-9) Equivocal Parainfluenza Virus 2 Not detected Not detected, (test code = 12084-2) Equivocal Parainfluenza virus 3 Not detected Not detected, (test code = 91647-4) Equivocal Parainfluenza Virus 4 Not detected Not detected, (test code = 34474-7) Equivocal Adenovirus (test code Not detected Not detected, = 87012-3) Equivocal Coronavirus 229E Not detected Not detected, (test code = 80985-7) Equivocal Coronavirus HKU1 Not detected Not detected, (test code = 12734-6) Equivocal Coronavirus NL63 Not detected Not detected, (test code = 21421-7) Equivocal Coronavirus OC43 Not detected Not detected, (test code = 25927-4) Equivocal Bordetella Pertussis Not detected Not detected, (test code = 06808-5) Equivocal Chlamydophila Not detected Not detected, Pneumoniae (test code Equivocal = 35290-1) Mycoplasma Pneumoniae Not detected Not detected, (test code = 35039-3) Equivocal Severe Acute Not detected Not detected, Ckmsmgsxjwg-PgO-9 Equivocal (test code = 04106-6) Bordtella Not detected Not detected, Parapertussis (test Equivocal code = 63654-8) SHANA (test code = SHANA) Other viruses and bacteria not targeted by this PCR panel cannot be excluded; therefore clinical correlation and follow up of serology, culture results, and other molecular studies is required. The results are not intended to be used as the sole means for clinical diagnosis or patient management decisions. This sample was tested at the [facility] using the [employer] Respiratory Panel. It is FDA cleared and has been verified and approved by the [facility] for clinical use on nasopharyngeal swab specimens. The performance of the FilmArray RP has not been established in individuals who received influenza vaccine. Recent administration of a nasal influenza vaccine may cause false positive results for Influenza A and/orInfluenza B. Lab Interpretation Abnormal (test code = 86118-2) [facility] [id number] 15:22:28 Test Item Value Reference Interpretation Comments Range Human Metapneumovirus Not detected Not detected, (test code = 58745-8) Equivocal Rhinovirus (test code Not detected Not detected, = 72981-5) Equivocal INFLUENZA A (NO SUBTYPE) (test code = 94377-2) Influenza A subtype H1 (test code = 36667-6) Influenza A Subtype H3 (test code = 36579-8) Influenza A Subtype Detected Not detected, A Droplet H1-2009 (test code = Equiv[place]. 01339-1) Oseltamivir is the drug of choice. Conside r stopping antibiotics. Influenza B (test Not detected Not detected, code = 31132-7) Equivocal Respiratory Syncytial Not detected Not detected, Virus (test code = Equivocal 31996-1) Parainfluenza Virus 1 Not detected Not detected, (test code = 97207-8) Equivocal Parainfluenza Virus 2 Not detected Not detected, (test code = 83980-4) Equivocal Parainfluenza virus 3 Not detected Not detected, (test code = 07878-3) Equivocal Parainfluenza Virus 4 Not detected Not detected, (test code = 10512-1) Equivocal Adenovirus (test code Not detected Not detected, = 81475-0) Equivocal Coronavirus 229E Not detected Not detected, (test code = 19564-7) Equivocal Coronavirus HKU1 Not detected Not detected, (test code = 40013-6) Equivocal Coronavirus NL63 Not detected Not detected, (test code = 34687-7) Equivocal Coronavirus OC43 Not detected Not detected, (test code = 82393-2) Equivocal Bordetella Pertussis Not detected Not detected, (test code = 28653-3) Equivocal Chlamydophila Not detected Not detected, Pneumoniae (test code Equivocal = 39564-5) Mycoplasma Pneumoniae Not detected Not detected, (test code = 30902-7) Equivocal Severe Acute Not detected Not detected, Lifynfmfuhw-NsN-1 Equivocal (test code = 62623-7) Bordtella Not detected Not detected, Parapertussis (test Equivocal code = 85835-5) SHANA (test code = SHANA) Other viruses and bacteria not targeted by this PCR panel cannot be excluded; therefore clinical correlation and follow up of serology, culture results, and other molecular studies is required. The results are not intended to be used as the sole means for clinical diagnosis or patient management decisions. This sample was tested at the [facility] using the [employer] Respiratory Panel. It is FDA cleared and has been verified and approved by the [facility] for clinical use on nasopharyngeal swab specimens. The performance of the FilmArray RP has not been established in individuals who received influenza vaccine. Recent administration of a nasal influenza vaccine may cause false positive results for Influenza A and/orInfluenza B. Lab Interpretation Abnormal (test code = 26827-2) [facility] [id number] 15:22:28 Test Item Value Reference Interpretation Comments Range Human Metapneumovirus Not detected Not detected, (test code = 75044-1) Equivocal Rhinovirus (test code Not detected Not detected, = 70636-0) Equivocal INFLUENZA A (NO SUBTYPE) (test code = 59062-8) Influenza A subtype H1 (test code = 69115-3) Influenza A Subtype H3 (test code = 89746-3) Influenza A Subtype Detected Not detected, A Droplet H1-2009 (test code = [place]. 25842-0) Oseltamivir is the drug of choice. Conside r stopping antibiotics. Influenza B (test Not detected Not detected, code = 64373-6) Equivocal Respiratory Syncytial Not detected Not detected, Virus (test code = Equivocal 55731-0) Parainfluenza Virus 1 Not detected Not detected, (test code = 49516-0) Equivocal Parainfluenza Virus 2 Not detected Not detected, (test code = 20243-5) Equivocal Parainfluenza virus 3 Not detected Not detected, (test code = 43264-2) Equivocal Parainfluenza Virus 4 Not detected Not detected, (test code = 94471-0) Equivocal Adenovirus (test code Not detected Not detected, = 79271-9) Equivocal Coronavirus 229E Not detected Not detected, (test code = 00241-7) Equivocal Coronavirus HKU1 Not detected Not detected, (test code = 91251-4) Equivocal Coronavirus NL63 Not detected Not detected, (test code = 02947-7) Equivocal Coronavirus OC43 Not detected Not detected, (test code = 90338-7) Equivocal Bordetella Pertussis Not detected Not detected, (test code = 83039-1) Equivocal Chlamydophila Not detected Not detected, Pneumoniae (test code Equivocal = 01931-9) Mycoplasma Pneumoniae Not detected Not detected, (test code = 26834-6) Equivocal Severe Acute Not detected Not detected, Doqwryylpqr-JnP-8 Equivocal (test code = 51335-3) Bordtella Not detected Not detected, Parapertussis (test Equivocal code = 55895-7) SHANA (test code = SHANA) Other viruses and bacteria not targeted by this PCR panel cannot be excluded; therefore clinical correlation and follow up of serology, culture results, and other molecular studies is required. The results are not intended to be used as the sole means for clinical diagnosis or patient management decisions. This sample was tested at the [facility] using the Que[employer] Respiratory Panel. It is FDA cleared and has been verified and approved by the [facility] for clinical use on nasopharyngeal swab specimens. The performance of the FilmArray RP has not been established in individuals who received influenza vaccine. Recent administration of a nasal influenza vaccine may cause false positive results for Influenza A and/orInfluenza B. Lab Interpretation Abnormal (test code = 47793-6) [facility] [id number] 15:22:28 Test Item Value Reference Interpretation Comments Range Human Metapneumovirus Not detected Not detected, (test code = 73496-3) Equivocal Rhinovirus (test code Not detected Not detected, = 87388-5) Equivocal INFLUENZA A (NO SUBTYPE) (test code = 48893-9) Influenza A subtype H1 (test code = 89469-7) Influenza A Subtype H3 (test code = 75098-4) Influenza A Subtype Detected Not detected, A Droplet H1-2009 (test code = Equiv[place]. 69491-7) Oseltamivir is the drug of choice. Conside r stopping antibiotics. Influenza B (test Not detected Not detected, code = 72572-4) Equivocal Respiratory Syncytial Not detected Not detected, Virus (test code = Equivocal 17165-7) Parainfluenza Virus 1 Not detected Not detected, (test code = 95184-9) Equivocal Parainfluenza Virus 2 Not detected Not detected, (test code = 72112-4) Equivocal Parainfluenza virus 3 Not detected Not detected, (test code = 34814-7) Equivocal Parainfluenza Virus 4 Not detected Not detected, (test code = 54297-7) Equivocal Adenovirus (test code Not detected Not detected, = 82409-0) Equivocal Coronavirus 229E Not detected Not detected, (test code = 76088-1) Equivocal Coronavirus HKU1 Not detected Not detected, (test code = 42025-6) Equivocal Coronavirus NL63 Not detected Not detected, (test code = 48541-3) Equivocal Coronavirus OC43 Not detected Not detected, (test code = 04109-8) Equivocal Bordetella Pertussis Not detected Not detected, (test code = 54106-9) Equivocal Chlamydophila Not detected Not detected, Pneumoniae (test code Equivocal = 67556-4) Mycoplasma Pneumoniae Not detected Not detected, (test code = 85264-3) Equivocal Severe Acute Not detected Not detected, Yxleqrvifqr-YiZ-4 Equivocal (test code = 42298-8) Bordtella Not detected Not detected, Parapertussis (test Equivocal code = 03603-3) SHANA (test code = SHANA) Other viruses and bacteria not targeted by this PCR panel cannot be excluded; therefore clinical correlation and follow up of serology, culture results, and other molecular studies is required. The results are not intended to be used as the sole means for clinical diagnosis or patient management decisions. This sample was tested at the [facility] using the Que[employer] Respiratory Panel. It is FDA cleared and has been verified and approved by the [facility] for clinical use on nasopharyngeal swab specimens. The performance of the FilmArray RP has not been established in individuals who received influenza vaccine. Recent administration of a nasal influenza vaccine may cause false positive results for Influenza A and/orInfluenza B. Lab Interpretation Abnormal (test code = 69803-8) [facility] [id number] 15:22:28 Test Item Value Reference Interpretation Comments Range Human Metapneumovirus Not detected Not detected, (test code = 07894-7) Equivocal Rhinovirus (test code Not detected Not detected, = 09976-9) Equivocal INFLUENZA A (NO SUBTYPE) (test code = 37720-4) Influenza A subtype H1 (test code = 39746-3) Influenza A Subtype H3 (test code = 48378-8) Influenza A Subtype Detected Not detected, A Droplet H1-2009 (test code = [place]. 16013-5) Oseltamivir is the drug of choice. Conside r stopping antibiotics. Influenza B (test Not detected Not detected, code = 49229-0) Equivocal Respiratory Syncytial Not detected Not detected, Virus (test code = Equivocal 22519-8) Parainfluenza Virus 1 Not detected Not detected, (test code = 05993-6) Equivocal Parainfluenza Virus 2 Not detected Not detected, (test code = 36791-3) Equivocal Parainfluenza virus 3 Not detected Not detected, (test code = 96359-3) Equivocal Parainfluenza Virus 4 Not detected Not detected, (test code = 95774-1) Equivocal Adenovirus (test code Not detected Not detected, = 49132-3) Equivocal Coronavirus 229E Not detected Not detected, (test code = 62820-2) Equivocal Coronavirus HKU1 Not detected Not detected, (test code = 95172-3) Equivocal Coronavirus NL63 Not detected Not detected, (test code = 74898-7) Equivocal Coronavirus OC43 Not detected Not detected, (test code = 22386-5) Equivocal Bordetella Pertussis Not detected Not detected, (test code = 24947-2) Equivocal Chlamydophila Not detected Not detected, Pneumoniae (test code Equivocal = 53985-8) Mycoplasma Pneumoniae Not detected Not detected, (test code = 89877-3) Equivocal Severe Acute Not detected Not detected, Utbysegpigs-FtS-0 Equivocal (test code = 57248-2) Bordtella Not detected Not detected, Parapertussis (test Equivocal code = 03432-2) SHANA (test code = SHANA) Other viruses and bacteria not targeted by this PCR panel cannot be excluded; therefore clinical correlation and follow up of serology, culture results, and other molecular studies is required. The results are not intended to be used as the sole means for clinical diagnosis or patient management decisions. This sample was tested at the [facility] using the [employer] Respiratory Panel. It is FDA cleared and has been verified and approved by the [facility] for clinical use on nasopharyngeal swab specimens. The performance of the FilmArray RP has not been established in individuals who received influenza vaccine. Recent administration of a nasal influenza vaccine may cause false positive results for Influenza A and/orInfluenza B. Lab Interpretation Abnormal (test code = 32377-2) [facility] [id number] 15:22:28 Test Item Value Reference Interpretation Comments Range Human Metapneumovirus Not detected Not detected, (test code = 11570-7) Equivocal Rhinovirus (test code Not detected Not detected, = 92950-1) Equivocal INFLUENZA A (NO SUBTYPE) (test code = 89679-3) Influenza A subtype H1 (test code = 43900-8) Influenza A Subtype H3 (test code = 03606-3) Influenza A Subtype Detected Not detected, A Droplet H1-2009 (test code = [place]. [address]-6) Oseltamivir is the drug of choice. Conside r stopping antibiotics. Influenza B (test Not detected Not detected, code = 87239-6) Equivocal Respiratory Syncytial Not detected Not detected, Virus (test code = Equivocal 43158-8) Parainfluenza Virus 1 Not detected Not detected, (test code = 08894-7) Equivocal Parainfluenza Virus 2 Not detected Not detected, (test code = 13319-5) Equivocal Parainfluenza virus 3 Not detected Not detected, (test code = 24860-9) Equivocal Parainfluenza Virus 4 Not detected Not detected, (test code = 18694-1) Equivocal Adenovirus (test code Not detected Not detected, = 20471-8) Equivocal Coronavirus 229E Not detected Not detected, (test code = 77321-5) Equivocal Coronavirus HKU1 Not detected Not detected, (test code = 64869-6) Equivocal Coronavirus NL63 Not detected Not detected, (test code = 26408-0) Equivocal Coronavirus OC43 Not detected Not detected, (test code = 07701-8) Equivocal Bordetella Pertussis Not detected Not detected, (test code = 98340-6) Equivocal Chlamydophila Not detected Not detected, Pneumoniae (test code Equivocal = 77002-1) Mycoplasma Pneumoniae Not detected Not detected, (test code = 02791-4) Equivocal Severe Acute Not detected Not detected, Sfuejjuycvg-EzD-3 Equivocal (test code = 42044-6) Bordtella Not detected Not detected, Parapertussis (test Equivocal code = 86273-7) SHANA (test code = SHANA) Other viruses and bacteria not targeted by this PCR panel cannot be excluded; therefore clinical correlation and follow up of serology, culture results, and other molecular studies is required. The results are not intended to be used as the sole means for clinical diagnosis or patient management decisions. This sample was tested at the [facility] using the [employer] Respiratory Panel. It is FDA cleared and has been verified and approved by the [facility] for clinical use on nasopharyngeal swab specimens. The performance of the FilmArray RP has not been established in individuals who received influenza vaccine. Recent administration of a nasal influenza vaccine may cause false positive results for Influenza A and/orInfluenza B. Lab Interpretation Abnormal (test code = 66286-3) [facility] [id number] 15:22:28 Test Item Value Reference Interpretation Comments Range Human Metapneumovirus Not detected Not detected, (test code = 53352-6) Equivocal Rhinovirus (test code Not detected Not detected, = 06820-2) Equivocal INFLUENZA A (NO SUBTYPE) (test code = 83870-9) Influenza A subtype H1 (test code = 25643-4) Influenza A Subtype H3 (test code = 65986-6) Influenza A Subtype Detected Not detected, A Droplet H1-2009 (test code = [place]. [address]93-0) Oseltamivir is the drug of choice. Conside r stopping antibiotics. Influenza B (test Not detected Not detected, code = 07890-0) Equivocal Respiratory Syncytial Not detected Not detected, Virus (test code = Equivocal 67232-7) Parainfluenza Virus 1 Not detected Not detected, (test code = 84728-4) Equivocal Parainfluenza Virus 2 Not detected Not detected, (test code = 18130-6) Equivocal Parainfluenza virus 3 Not detected Not detected, (test code = 07234-1) Equivocal Parainfluenza Virus 4 Not detected Not detected, (test code = 10431-4) Equivocal Adenovirus (test code Not detected Not detected, = 73503-0) Equivocal Coronavirus 229E Not detected Not detected, (test code = 53126-2) Equivocal Coronavirus HKU1 Not detected Not detected, (test code = 88694-4) Equivocal Coronavirus NL63 Not detected Not detected, (test code = 32598-7) Equivocal Coronavirus OC43 Not detected Not detected, (test code = 15224-8) Equivocal Bordetella Pertussis Not detected Not detected, (test code = 56341-6) Equivocal Chlamydophila Not detected Not detected, Pneumoniae (test code Equivocal = 96265-9) Mycoplasma Pneumoniae Not detected Not detected, (test code = 93241-6) Equivocal Severe Acute Not detected Not detected, Wgxyukfdptt-TwH-6 Equivocal (test code = 54203-9) Bordtella Not detected Not detected, Parapertussis (test Equivocal code = 10695-0) SHANA (test code = SHANA) Other viruses and bacteria not targeted by this PCR panel cannot be excluded; therefore clinical correlation and follow up of serology, culture results, and other molecular studies is required. The results are not intended to be used as the sole means for clinical diagnosis or patient management decisions. This sample was tested at the [facility] using the [employer] Respiratory Panel. It is FDA cleared and has been verified and approved by the [facility] for clinical use on nasopharyngeal swab specimens. The performance of the FilmArray RP has not been established in individuals who received influenza vaccine. Recent administration of a nasal influenza vaccine may cause false positive results for Influenza A and/orInfluenza B. Lab Interpretation Abnormal (test code = 02420-8) [facility] [id number] 15:22:28 Test Item Value Reference Interpretation Comments Range Human Metapneumovirus Not detected Not detected, (test code = 98171-3) Equivocal Rhinovirus (test code Not detected Not detected, = 07880-1) Equivocal INFLUENZA A (NO SUBTYPE) (test code = 95485-2) Influenza A subtype H1 (test code = 00742-2) Influenza A Subtype H3 (test code = 23996-7) Influenza A Subtype Detected Not detected, A Droplet H1-2009 (test code = [place]. 44374-7) Oseltamivir is the drug of choice. Conside r stopping antibiotics. Influenza B (test Not detected Not detected, code = 52484-5) Equivocal Respiratory Syncytial Not detected Not detected, Virus (test code = Equivocal 56416-6) Parainfluenza Virus 1 Not detected Not detected, (test code = 50479-8) Equivocal Parainfluenza Virus 2 Not detected Not detected, (test code = 26397-6) Equivocal Parainfluenza virus 3 Not detected Not detected, (test code = 97803-4) Equivocal Parainfluenza Virus 4 Not detected Not detected, (test code = 99875-7) Equivocal Adenovirus (test code Not detected Not detected, = 85257-2) Equivocal Coronavirus 229E Not detected Not detected, (test code = 85273-0) Equivocal Coronavirus HKU1 Not detected Not detected, (test code = 22299-8) Equivocal Coronavirus NL63 Not detected Not detected, (test code = 42575-3) Equivocal Coronavirus OC43 Not detected Not detected, (test code = 70840-4) Equivocal Bordetella Pertussis Not detected Not detected, (test code = 72956-1) Equivocal Chlamydophila Not detected Not detected, Pneumoniae (test code Equivocal = 80004-4) Mycoplasma Pneumoniae Not detected Not detected, (test code = 97562-4) Equivocal Severe Acute Not detected Not detected, Lotazczflfh-OhL-4 Equivocal (test code = 76960-9) Bordtella Not detected Not detected, Parapertussis (test Equivocal code = 73744-6) SHANA (test code = SHANA) Other viruses and bacteria not targeted by this PCR panel cannot be excluded; therefore clinical correlation and follow up of serology, culture results, and other molecular studies is required. The results are not intended to be used as the sole means for clinical diagnosis or patient management decisions. This sample was tested at the [facility] using the [employer] Respiratory Panel. It is FDA cleared and has been verified and approved by the [facility] for clinical use on nasopharyngeal swab specimens. The performance of the FilmArray RP has not been established in individuals who received influenza vaccine. Recent administration of a nasal influenza vaccine may cause false positive results for Influenza A and/orInfluenza B. Lab Interpretation Abnormal (test code = 63621-5) [facility] [id number] 15:22:28 Test Item Value Reference Interpretation Comments Range Human Metapneumovirus Not detected Not detected, (test code = 74735-8) Equivocal Rhinovirus (test code Not detected Not detected, = 95456-8) Equivocal INFLUENZA A (NO SUBTYPE) (test code = 20381-9) Influenza A subtype H1 (test code = 05535-8) Influenza A Subtype H3 (test code = 10811-0) Influenza A Subtype Detected Not detected, A Droplet H1-2009 (test code = [place]. [address]-1) Oseltamivir is the drug of choice. Conside r stopping antibiotics. Influenza B (test Not detected Not detected, code = 57036-0) Equivocal Respiratory Syncytial Not detected Not detected, Virus (test code = Equivocal 07836-3) Parainfluenza Virus 1 Not detected Not detected, (test code = 44893-9) Equivocal Parainfluenza Virus 2 Not detected Not detected, (test code = 91748-0) Equivocal Parainfluenza virus 3 Not detected Not detected, (test code = 47264-0) Equivocal Parainfluenza Virus 4 Not detected Not detected, (test code = 05023-5) Equivocal Adenovirus (test code Not detected Not detected, = 57290-6) Equivocal Coronavirus 229E Not detected Not detected, (test code = 60131-8) Equivocal Coronavirus HKU1 Not detected Not detected, (test code = 66012-8) Equivocal Coronavirus NL63 Not detected Not detected, (test code = 52638-7) Equivocal Coronavirus OC43 Not detected Not detected, (test code = 95214-4) Equivocal Bordetella Pertussis Not detected Not detected, (test code = 92613-8) Equivocal Chlamydophila Not detected Not detected, Pneumoniae (test code Equivocal = 14163-3) Mycoplasma Pneumoniae Not detected Not detected, (test code = 09926-3) Equivocal Severe Acute Not detected Not detected, Hoojlvmigiz-XwO-5 Equivocal (test code = 78599-7) Bordtella Not detected Not detected, Parapertussis (test Equivocal code = 13259-1) SHANA (test code = SHANA) Other viruses and bacteria not targeted by this PCR panel cannot be excluded; therefore clinical correlation and follow up of serology, culture results, and other molecular studies is required. The results are not intended to be used as the sole means for clinical diagnosis or patient management decisions. This sample was tested at the [facility] using the [employer] Respiratory Panel. It is FDA cleared and has been verified and approved by the [facility] for clinical use on nasopharyngeal swab specimens. The performance of the FilmArray RP has not been established in individuals who received influenza vaccine. Recent administration of a nasal influenza vaccine may cause false positive results for Influenza A and/orInfluenza B. Lab Interpretation Abnormal (test code = 85534-4) [facility] [id number] 15:22:28 Test Item Value Reference Interpretation Comments Range Human Metapneumovirus Not detected Not detected, (test code = 06266-2) Equivocal Rhinovirus (test code Not detected Not detected, = 77399-1) Equivocal INFLUENZA A (NO SUBTYPE) (test code = 94773-1) Influenza A subtype H1 (test code = 42899-0) Influenza A Subtype H3 (test code = 64573-2) Influenza A Subtype Detected Not detected, A Droplet H1-2009 (test code = [place]. [address]-3) Oseltamivir is the drug of choice. Conside r stopping antibiotics. Influenza B (test Not detected Not detected, code = 48947-3) Equivocal Respiratory Syncytial Not detected Not detected, Virus (test code = Equivocal 25642-6) Parainfluenza Virus 1 Not detected Not detected, (test code = 59794-2) Equivocal Parainfluenza Virus 2 Not detected Not detected, (test code = 17340-0) Equivocal Parainfluenza virus 3 Not detected Not detected, (test code = 10921-0) Equivocal Parainfluenza Virus 4 Not detected Not detected, (test code = 25938-0) Equivocal Adenovirus (test code Not detected Not detected, = 29440-8) Equivocal Coronavirus 229E Not detected Not detected, (test code = 14487-8) Equivocal Coronavirus HKU1 Not detected Not detected, (test code = 61324-3) Equivocal Coronavirus NL63 Not detected Not detected, (test code = 47754-9) Equivocal Coronavirus OC43 Not detected Not detected, (test code = 65943-0) Equivocal Bordetella Pertussis Not detected Not detected, (test code = 20848-0) Equivocal Chlamydophila Not detected Not detected, Pneumoniae (test code Equivocal = 14018-0) Mycoplasma Pneumoniae Not detected Not detected, (test code = 05537-5) Equivocal Severe Acute Not detected Not detected, Hlggkddhyxa-VzC-4 Equivocal (test code = 88648-9) Bordtella Not detected Not detected, Parapertussis (test Equivocal code = 97818-0) SHANA (test code = SHANA) Other viruses and bacteria not targeted by this PCR panel cannot be excluded; therefore clinical correlation and follow up of serology, culture results, and other molecular studies is required. The results are not intended to be used as the sole means for clinical diagnosis or patient management decisions. This sample was tested at the [facility] using the [employer] Respiratory Panel. It is FDA cleared and has been verified and approved by the [facility] for clinical use on nasopharyngeal swab specimens. The performance of the FilmArray RP has not been established in individuals who received influenza vaccine. Recent administration of a nasal influenza vaccine may cause false positive results for Influenza A and/orInfluenza B. Lab Interpretation Abnormal (test code = 15310-2) [facility] [id number] 15:22:28 Test Item Value Reference Interpretation Comments Range Human Metapneumovirus Not detected Not detected, (test code = 43222-2) Equivocal Rhinovirus (test code Not detected Not detected, = 21412-7) Equivocal INFLUENZA A (NO SUBTYPE) (test code = 11196-0) Influenza A subtype H1 (test code = 96422-0) Influenza A Subtype H3 (test code = 67754-7) Influenza A Subtype Detected Not detected, A Droplet H1-2009 (test code = [place]. 330[address]-7) Oseltamivir is the drug of choice. Conside r stopping antibiotics. Influenza B (test Not detected Not detected, code = 81492-3) Equivocal Respiratory Syncytial Not detected Not detected, Virus (test code = Equivocal 13406-3) Parainfluenza Virus 1 Not detected Not detected, (test code = 39616-6) Equivocal Parainfluenza Virus 2 Not detected Not detected, (test code = 47608-6) Equivocal Parainfluenza virus 3 Not detected Not detected, (test code = 08784-5) Equivocal Parainfluenza Virus 4 Not detected Not detected, (test code = 04700-0) Equivocal Adenovirus (test code Not detected Not detected, = 72332-5) Equivocal Coronavirus 229E Not detected Not detected, (test code = 16284-1) Equivocal Coronavirus HKU1 Not detected Not detected, (test code = 89809-1) Equivocal Coronavirus NL63 Not detected Not detected, (test code = 33396-2) Equivocal Coronavirus OC43 Not detected Not detected, (test code = 63458-0) Equivocal Bordetella Pertussis Not detected Not detected, (test code = 31223-1) Equivocal Chlamydophila Not detected Not detected, Pneumoniae (test code Equivocal = 45410-8) Mycoplasma Pneumoniae Not detected Not detected, (test code = 21670-0) Equivocal Severe Acute Not detected Not detected, Djanhykwcjy-HtT-6 Equivocal (test code = 93314-7) Bordtella Not detected Not detected, Parapertussis (test Equivocal code = 18445-2) SHANA (test code = SHANA) Other viruses and bacteria not targeted by this PCR panel cannot be excluded; therefore clinical correlation and follow up of serology, culture results, and other molecular studies is required. The results are not intended to be used as the sole means for clinical diagnosis or patient management decisions. This sample was tested at the [facility] using the [employer] Respiratory Panel. It is FDA cleared and has been verified and approved by the [facility] for clinical use on nasopharyngeal swab specimens. The performance of the FilmArray RP has not been established in individuals who received influenza vaccine. Recent administration of a nasal influenza vaccine may cause false positive results for Influenza A and/orInfluenza B. Lab Interpretation Abnormal (test code = 49291-4) [facility] [id number] 15:22:28 Test Item Value Reference Range Interpretation [...] ACUTE Not detected Not detected, RESPIRATORY Equivocal [id number] (test code = 0801669) BORDETELLA Not detected Not detected, PARAPERTUSSIS (BKR) Equivocal (test code = 8024863) Other viruses and bacteria not targeted by this PCR panel cannot be excluded; therefore clinical correlation and follow up of serology, culture results, and other molecular studies is required. The results are not intended to be used as the sole means for clinical diagnosis or patient management decisions. This sample was tested at the [facility] using the [employer] Respiratory Panel. It is FDA cleared and has been verified and approved by the [facility] for clinical use on nasopharyngeal swab specimens.The performance of the FilmArrayRP has not been established in individuals who received influenza vaccine. Recent administration of a nasal influenza vaccine may cause false positive results for Influenza A and/orInfluenza B.BILIRUBIN, [id number] 14:19:13 Test Item Value Reference Range Interpretation Comments BILIRUBIN DIRECT (BEAKER) (test 0.5 mg/dL 0.1-0.5 code = 706) [employer] ID - LIBBY BHEPATIC FUNCTION [id number] 11:30:00 Test Item Value Reference Range Interpretation [...] (test code = 15 U/L 6-55 347) [employer]ed [employer] Manager ID - LIBBY BBASIC METABOLIC [id number] 11:29:59 Test Item Value Reference Range Interpretation [...] De scription 1092) sq m Result G1 Norm al or high >=90 G2 Mildly decreased 60-89 [...] not appl icable for dialysis patien ts [employer]ed [employer] Manager ID - LIBBY [id number] 11:29:59 Test Item Value Reference Range Interpretation Comments MAGNESIUM (BEAKER) (test code = 1.6 mg/dL 1.6-2.6 627) [employer]ed [employer] Manager ID - LIBBY [id number] 11:29:59 Test Item Value Reference Range Interpretation Comments PHOSPHORUS (BEAKER) (test code = 3.2 mg/dL 2.3-4.7 604) [employer]ed [employer] Manager ID - LIBBY BCBC W/PLT COUNT & AUTO [id number] 10:23:43 Test Item Value Reference Range Interpretation [...] PERCENT (BEAKER) (test code = 2801) Urine [id number] 09:37:23 Test Item Value Reference Range Interpretation Comments Result (test code = <10,000 col/mL skin 6463-4) maria del carmen [facility] [id number] 09:37:23 Test Item Value Reference Range Interpretation Comments Result (test code = <10,000 col/mL skin 6463-4) maria del car[facility] [id number] 09:37:23 Test Item Value Reference Range Interpretation Comments Result (test code = <10,000 col/mL skin 6463-4) maria del carmen [facility] [id number] 09:37:23 Test Item Value Reference Range Interpretation Comments Result (test code = <10,000 col/mL skin 6463-4) maria del carmen [facility] [id number] 09:37:23 Test Item Value Reference Range Interpretation Comments Result (test code = <10,000 col/mL skin 6463-4) maria del carmen [facility] [id number] 09:37:23 Test Item Value Reference Range Interpretation Comments Result (test code = <10,000 col/mL skin 6463-4) maria del carmen [facility] [id number] 09:37:23 Test Item Value Reference Range Interpretation Comments Result (test code = <10,000 col/mL skin 6463-4) maria del carmen [facility] [id number] 09:37:23 Test Item Value Reference Range Interpretation Comments Result (test code = <10,000 col/mL skin 6463-4) maria del carmen [facility] [id number] 09:37:23 Test Item Value Reference Range Interpretation Comments Result (test code = <10,000 col/mL skin 6463-4) maria del carmen [facility] [id number] 09:37:23 Test Item Value Reference Range Interpretation Comments Result (test code = <10,000 col/mL skin 6463-4) maria del carmen [facility] [id number] 09:37:23 Test Item Value Reference Range Interpretation Comments Result (test code = <10,000 col/mL skin 6463-4) maria del carmen [facility], [facility]ST, 1 VIEW, NON [id number] 03:15:00Reason for exam:->feverShould this be performed at the bedside?->Yes [facility] 1975 Sex: MFINAL REPORT PORTABLE AP CHEST ORDERED AT 09/08/2022 6:54 PM HISTORY: Fever. COMPARISON: Chest radiograph 11/13/2021 IMPRESSION: Heart size is normal. There is no consolidation, effusion or pneumothorax. No evidence of acute osseous abnormality. No evidence of pulmonary edema. Signed: Cyn Calle MDReport Verified Date/Time: 09/09/2022 03:15:00 Strep pneumoniae [id number] 20:38:59 Test Item Value Reference Range Interpretation Comments Strep pneumoniae Presumptive negative Presumptive Antigen (test code = [place] [address]-6) pneumonia - see pneumococcal comment pneumonia - [...] test. Lab Interpretation Normal (test code = 71582-8) [facility] [id number] 20:38:59 Test Item Value Reference Range Interpretation Comments Strep pneumoniae Presumptive negative Presumptive Antigen (test code = [place] [address]-9) pneumonia - see pneumococcal comment pneumonia - [...] test. Lab Interpretation Normal (test code = 50279-6) [facility] [id number] 20:38:59 Test Item Value Reference Range Interpretation Comments Strep pneumoniae Presumptive negative Presumptive Antigen (test code = [place] [address]-6) pneumonia - see pneumococcal comment pneumonia - [...] test. Lab Interpretation Normal (test code = 20658-3) [facility] [id number] 20:38:59 Test Item Value Reference Range Interpretation Comments Strep pneumoniae Presumptive negative Presumptive Antigen (test code = [place] [address]-1) pneumonia - see pneumococcal comment pneumonia - [...] test. Lab Interpretation Normal (test code = 42347-4) [facility] [id number] 20:38:59 Test Item Value Reference Range Interpretation Comments Strep pneumoniae Presumptive negative Presumptive Antigen (test code = [place] [address]-4) pneumonia - see pneumococcal comment pneumonia - [...] test. Lab Interpretation Normal (test code = 90790-4) [facility] [id number] 20:38:59 Test Item Value Reference Range Interpretation Comments Strep pneumoniae Presumptive negative Presumptive Antigen (test code = [place] [address]-0) pneumonia - see pneumococcal comment pneumonia - [...] test. Lab Interpretation Normal (test code = 81969-6) [facility] [id number] 20:38:59 Test Item Value Reference Range Interpretation Comments Strep pneumoniae Presumptive negative Presumptive Antigen (test code = [place] [address]-9) pneumonia - see pneumococcal comment pneumonia - [...] test. Lab Interpretation Normal (test code = 48913-2) [facility] [id number] 20:38:59 Test Item Value Reference Range Interpretation Comments Strep pneumoniae Presumptive negative Presumptive Antigen (test code = [place] [address]-4) pneumonia - see pneumococcal comment pneumonia - [...] test. Lab Interpretation Normal (test code = 85198-9) [facility] [id number] 20:38:59 Test Item Value Reference Range Interpretation Comments Strep pneumoniae Presumptive negative Presumptive Antigen (test code = [place] [address]-4) pneumonia - see pneumococcal comment pneumonia - [...] test. Lab Interpretation Normal (test code = 10191-2) [facility] [id number] 20:38:59 Test Item Value Reference Range Interpretation Comments Strep pneumoniae Presumptive negative Presumptive Antigen (test code = [place] [address]-6) pneumonia - see pneumococcal comment pneumonia - [...] test. Lab Interpretation Normal (test code = 61177-8) [facility] [id number] 20:38:59 Test Item Value Reference Range Interpretation Comments Strep pneumoniae Presumptive negative Presumptive Antigen (test code = [place] [address]-3) pneumonia - see pneumococcal comment pneumonia - [...] test. Lab Interpretation Normal (test code = 23457-4) [facility] PNEUMONIAE [id number] 20:38:59 Test Item Value Reference Range Interpretation [...] detection limit of the test. LACTIC ACID, [id number] 19:00:48 Test Item Value Reference Range Interpretation Comments LACTATE BLOOD VENOUS (2) (BEAKER) 0.95 mmol/L 0.50-2.20 (test code = 2872) Focused Factory Manager ID - [id number] 19:00:27 Test Item Value Reference Range Interpretation Comments PROCALCITONIN (BEAKER) (test code = < ng/mL <0.05 3036) SEPSIS RISK (ng/mL)Low: 0.05-0.50Intermediate: 0.51-2.00High: >=2.01LACTIC ACID, [id number] 18:47:20 Test Item Value Reference Range Interpretation Comments LACTATE BLOOD VENOUS (2) (BEAKER) 0.97 mmol/L 0.50-2.20 (test code = 2872) Focused Factory Manager ID - EDCOMPREHENSIVE METABOLIC [id number] 05:42:03 Test Item Value Reference Range Interpretation [...] not appl icable for dialysis patien ts Focused Factory Manager ID - NEIL [id number] 05:42:03 Test Item Value Reference Range Interpretation Comments MAGNESIUM (BEAKER) (test code = 1.5 mg/dL 1.6-2.6 L 627) Focused Factory Manager ID - NEIL MCBC (HEMOGRAM ONLY)2022-09-08 05:11:49 [...] SARS-Co V-2 (test code = target nucleic 43195-2) acids are not detected in thi s [...] revoked sooner. Fact Sheet for Healthcare Providers: https://www.[employer]Documents/Xp ert%20Xpress%20SAR S%20CoV-2/Fact%20S heets/302-7472%20S ARS-COV-2%20HEALTH CARE%20PROVIDERS%2 0FACT%20SHEET.pdf Fact Sheet for Healthcare Patients: https://www.[employer]Documents/Xp ert%20Xpress%20SAR S%20CoV-2/Fact%20S heets/302-3801%20S ARS-COV-2%20PATIEN T%20FACT%20SHEET.p df Lab Interpretation Normal (test code = 20961-6) [facility]Asymptomatic ONLY)2022-09-07 07:59:01 Test Item Value Reference Interpretation Comments Range SARS-COV2/RT-PCR Negative Negative The SARS-Co V-2 (test code = target nucleic 56392-1) acids are not detected in thi s [...] revoked sooner. Fact Sheet for Healthcare Providers: https://www.[employer]Documents/Xp ert%20Xpress%20SAR S%20CoV-2/Fact%20S heets/302-3802%20S ARS-COV-2%20HEALTH CARE%20PROVIDERS%2 0FACT%20SHEET.pdf Fact Sheet for Healthcare Patients: https://www.[employer]Documents/Xp ert%20Xpress%20SAR S%20CoV-2/Fact%20S heets/302-3801%20S ARS-COV-2%20PATIEN T%20FACT%20SHEET.p df Lab Interpretation Normal (test code = 84348-2) [facility] ([facility])2022-09-07 07:59:01 Test Item Value Reference Range Interpretation Comments SARS-COV2/RT-PCR Negative Negative The SARS-Co V-2 target (test code = nucleic acids a re not 4227631) detected in thi s specimen. Negative result [...] revoked sooner. Fact Sheet for Healthcare Providers: https://www.[employer]/Documents/Xpert%20Xpress%20SARS%20CoV-2/Fact%20Sheets/795-2092%51RGVT-RNV-8%20 HEALTHCARE%20PROVIDERS%20FACT%20SHEET.pdf Fact Sheet for Healthcare Patients: https://www.[employer]/Documents/Xpert%20Xp ress%20SARS%20CoV-2/Fact%20Sheets/3023801%78VRWV-TMN-2%20PATIENT%20FACT%20SHEET .pdfCT, [id number] 04:48:00Unlisted Reason for Exam - Click Yes and Enter Reason Below->NoIs this for enterography?->NoWill this procedure require oral contrast?->No [facility] 1975 Sex: MFINAL REPORT EXAM/TECHNIQUE: CT [...] - [place] Verified Date/Time: 04:48:11 TIC FUNCTION [id number] 04:11:49 Test Item Value Reference Range Interpretation [...] (test code = 25 U/L 6-55 347) Focused Factory Manager ID - CHAMP WOperator ID Onofre OAKES [id number] 03:24:36 Test Item Value Reference Range Interpretation Comments LIPASE (BEAKER) (test code = 749) < U/L 8-78 L [employer]ed Factory Manager ID - CHAMP WBASIC METABOLIC [id number] 02:56:41 Test Item Value Reference Range Interpretation [...] not appl icable for dialysis patien ts Focused Factory Manager ID - CHAMP WLACTIC ACID, [id number] 02:52:40 Test Item Value Reference Range Interpretation Comments LACTATE BLOOD VENOUS 1.11 mmol/L 0.50-2.20 Specime n slightly (2) (BEAKER) (test hemolyzed code = 9074) Focused Factory Manager ID - CHAMP WCBC W/PLT COUNT & AUTO [id number] 02:31:37 Test Item Value Reference Range Interpretation [...] = 2801) Urinalysis w/Microscopic + Reflex to [id number] 02:18:03 Test Item Value Reference Range Interpretation Comments Color, UA (test code Yellow = 5778-6) Clarity, UA (test Hazy code = 5767-9) Specific Linch, UA 1.028 1.001-1.035 (test code = 5811-5) pH, UA (test code = 6.0 5.0-8.0 5803-2) Protein, UA (test 20 mg/dL Negative A code = 47656-5) Glucose, UA (test 150 mg/dL Negative A code = 365) Ketones, UA (test Negative Negative code = 2514-8) Bilirubin, UA (test Negative Negative code = 71979-0) Blood, UA (test code Negative Negative = 30015-3) Nitrite, UA (test Negative Negative code = 5802-4) Leukocytes, UA (test Small Negative A code = 5799-2) Urobilinogen, UA 0.2 0.2-1.0 (test code = 27294-9) RBC, UA (test code = 15 See_Comment [Autom ated 87808-5) message] The system which generated this result [...] UA See_Comment [Automate d (test code = 04785-8) messag e] The system which generated this [...] (test Occasional None Seen A code = 70687-7) Specimen Source (test code = 2795) SHANA (test code = SHANA) Focused Factory Manager ID - [auto]Focused Factory Manager ID - tech Lab Interpretation Abnormal (test code = 17769-4) [facility] Reflex [facility] Culture 2022-09-07 02:18:03 Test Item Value Reference Range Interpretation Comments Color, UA (test code Yellow = 5778-6) Clarity, UA (test Hazy code = 5767-9) Specific Linch, UA 1.028 1.001-1.035 (test code = 5811-5) pH, UA (test code = 6.0 5.0-8.0 5803-2) Protein, UA (test 20 mg/dL Negative A code = 00914-8) Glucose, UA (test 150 mg/dL Negative A code = 365) Ketones, UA (test Negative Negative code = 2514-8) Bilirubin, UA (test Negative Negative code = 74940-7) Blood, UA (test code Negative Negative = 74655-0) Nitrite, UA (test Negative Negative code = 5802-4) Leukocytes, UA (test Small Negative A code = 5799-2) Urobilinogen, UA 0.2 0.2-1.0 (test code = 04975-2) RBC, UA (test code = 15 See_Comment [Autom ated 46327-2) message] The system which generated this result [...] UA See_Comment [Automate d (test code = 08833-2) messag e] The system which generated this [...] (test Occasional None Seen A code = 11821-8) Specimen Source (test code = 2795) SHANA (test code = SHANA) Focused Factory Manager ID - [auto]Focused Factory Manager ID - tech Lab Interpretation Abnormal (test code = 62983-1) [facility] Reflex to Culture 2022-09-07 02:18:03 Test Item Value Reference Range Interpretation Comments Color, UA (test code Yellow = 5778-6) Clarity, UA (test Hazy code = 5767-9) Specific Linch, UA 1.028 1.001-1.035 (test code = 5811-5) pH, UA (test code = 6.0 5.0-8.0 5803-2) Protein, UA (test 20 mg/dL Negative A code = 45703-7) Glucose, UA (test 150 mg/dL Negative A code = 365) Ketones, UA (test Negative Negative code = 2514-8) Bilirubin, UA (test Negative Negative code = 74280-4) Blood, UA (test code Negative Negative = 40731-3) Nitrite, UA (test Negative Negative code = 5802-4) Leukocytes, UA (test Small Negative A code = 5799-2) Urobilinogen, UA 0.2 0.2-1.0 (test code = 06814-0) RBC, UA (test code = 15 See_Comment [Autom ated 20733-6) message] The system which generated this result [...] UA See_Comment [Automate d (test code = 26091-3) messag e] The system which generated this [...] (test Occasional None Seen A code = 78644-3) Specimen Source (test code = 2795) SHANA (test code = SHANA) Focused Factory Manager ID - [auto]Focused Factory Manager ID - tech Lab Interpretation Abnormal (test code = 49460-0) [facility] + Reflex to Culture 2022-09-07 02:18:03 Test Item Value Reference Range Interpretation Comments Color, UA (test code Yellow = 5778-6) Clarity, UA (test Hazy code = 5767-9) Specific Linch, UA 1.028 1.001-1.035 (test code = 5811-5) pH, UA (test code = 6.0 5.0-8.0 5803-2) Protein, UA (test 20 mg/dL Negative A code = 87783-7) Glucose, UA (test 150 mg/dL Negative A code = 365) Ketones, UA (test Negative Negative code = 2514-8) Bilirubin, UA (test Negative Negative code = 24369-3) Blood, UA (test code Negative Negative = 77655-1) Nitrite, UA (test Negative Negative code = 5802-4) Leukocytes, UA (test Small Negative A code = 5799-2) Urobilinogen, UA 0.2 0.2-1.0 (test code = 75303-7) RBC, UA (test code = 15 See_Comment [Autom ated 02279-4) message] The system which generated this result [...] <1 See_Comment [Automate d (test code = 44738-9) messag e] The system which generated this [...] (test Occasional None Seen A code = 58321-0) Specimen Source (test code = 2795) SHANA (test code = SHANA) Focused Factory Manager ID - [auto]Focused Factory Manager ID - tech Lab Interpretation Abnormal (test code = 26370-0) [facility] Reflex to Culture 2022-09-07 02:18:03 Test Item Value Reference Range Interpretation Comments Color, UA (test code Yellow = 5778-6) Clarity, UA (test Hazy code = 5767-9) Specific Linch, UA 1.028 1.001-1.035 (test code = 5811-5) pH, UA (test code = 6.0 5.0-8.0 5803-2) Protein, UA (test 20 mg/dL Negative A code = 49896-7) Glucose, UA (test 150 mg/dL Negative A code = 365) Ketones, UA (test Negative Negative code = 2514-8) Bilirubin, UA (test Negative Negative code = 11697-6) Blood, UA (test code Negative Negative = 96011-9) Nitrite, UA (test Negative Negative code = 5802-4) Leukocytes, UA (test Small Negative A code = 5799-2) Urobilinogen, UA 0.2 0.2-1.0 (test code = 79686-3) RBC, UA (test code = 15 See_Comment [Autom ated 78375-2) message] The system which generated this result [...] <1 See_Comment [Automate d (test code = 56001-9) messag e] The system which generated this [...] (test Occasional None Seen A code = 23699-9) Specimen Source (test code = 2795) SHANA (test code = SHANA) Focused Factory Manager ID - [auto]Focused Factory Manager ID - tech Lab Interpretation Abnormal (test code = 85923-0) [facility] + Reflex to Culture 2022-09-07 02:18:03 Test Item Value Reference Range Interpretation Comments Color, UA (test code Yellow = 5778-6) Clarity, UA (test Hazy code = 5767-9) Specific Linch, UA 1.028 1.001-1.035 (test code = 5811-5) pH, UA (test code = 6.0 5.0-8.0 5803-2) Protein, UA (test 20 mg/dL Negative A code = 91238-8) Glucose, UA (test 150 mg/dL Negative A code = 365) Ketones, UA (test Negative Negative code = 2514-8) Bilirubin, UA (test Negative Negative code = 31719-5) Blood, UA (test code Negative Negative = 47441-4) Nitrite, UA (test Negative Negative code = 5802-4) Leukocytes, UA (test Small Negative A code = 5799-2) Urobilinogen, UA 0.2 0.2-1.0 (test code = 79114-8) RBC, UA (test code = 15 See_Comment [Autom ated 93791-5) message] The system which generated this result [...] <1 See_Comment [Automate d (test code = 51705-4) messag e] The system which generated this [...] (test Occasional None Seen A code = 88997-3) Specimen Source (test code = 2795) SHANA (test code = SHANA) Focused Factory Manager ID - [auto]Focused Factory Manager ID - tech Lab Interpretation Abnormal (test code = 74651-8) [facility] Reflex to Culture 2022-09-07 02:18:03 Test Item Value Reference Range Interpretation Comments Color, UA (test code Yellow = 5778-6) Clarity, UA (test Hazy code = 5767-9) Specific Linch, UA 1.028 1.001-1.035 (test code = 5811-5) pH, UA (test code = 6.0 5.0-8.0 5803-2) Protein, UA (test 20 mg/dL Negative A code = 20838-6) Glucose, UA (test 150 mg/dL Negative A code = 365) Ketones, UA (test Negative Negative code = 2514-8) Bilirubin, UA (test Negative Negative code = 88332-1) Blood, UA (test code Negative Negative = 32887-0) Nitrite, UA (test Negative Negative code = 5802-4) Leukocytes, UA (test Small Negative A code = 5799-2) Urobilinogen, UA 0.2 0.2-1.0 (test code = 07249-8) RBC, UA (test code = 15 See_Comment [Autom ated 38427-3) message] The system which generated this result [...] <1 See_Comment [Automate d (test code = 58066-7) messag e] The system which generated this [...] (test Occasional None Seen A code = 21574-9) Specimen Source (test code = 2795) SHANA (test code = SHANA) Focused Factory Manager ID - [auto]Focused Factory Manager ID - tech Lab Interpretation Abnormal (test code = 34880-8) [facility] Reflex to Culture 2022-09-07 02:18:03 Test Item Value Reference Range Interpretation Comments Color, UA (test code Yellow = 5778-6) Clarity, UA (test Hazy code = 5767-9) Specific Linch, UA 1.028 1.001-1.035 (test code = 5811-5) pH, UA (test code = 6.0 5.0-8.0 5803-2) Protein, UA (test 20 mg/dL Negative A code = 59486-4) Glucose, UA (test 150 mg/dL Negative A code = 365) Ketones, UA (test Negative Negative code = 2514-8) Bilirubin, UA (test Negative Negative code = 68860-0) Blood, UA (test code Negative Negative = 17231-8) Nitrite, UA (test Negative Negative code = 5802-4) Leukocytes, UA (test Small Negative A code = 5799-2) Urobilinogen, UA 0.2 0.2-1.0 (test code = 84192-4) RBC, UA (test code = 15 See_Comment [Autom ated 64852-0) message] The system which generated this result [...] <1 See_Comment [Automate d (test code = 39211-5) messag e] The system which generated this [...] (test Occasional None Seen A code = 59678-5) Specimen Source (test code = 2795) SHANA (test code = SHANA) Focused Factory Manager ID - [auto]Focused Factory Manager ID - tech Lab Interpretation Abnormal (test code = 36322-5) [facility] Reflex to Culture 2022-09-07 02:18:03 Test Item Value Reference Range Interpretation Comments Color, UA (test code Yellow = 5778-6) Clarity, UA (test Hazy code = 5767-9) Specific Linch, UA 1.028 1.001-1.035 (test code = 5811-5) pH, UA (test code = 6.0 5.0-8.0 5803-2) Protein, UA (test 20 mg/dL Negative A code = 01235-0) Glucose, UA (test 150 mg/dL Negative A code = 365) Ketones, UA (test Negative Negative code = 2514-8) Bilirubin, UA (test Negative Negative code = 55635-7) Blood, UA (test code Negative Negative = 20487-2) Nitrite, UA (test Negative Negative code = 5802-4) Leukocytes, UA (test Small Negative A code = 5799-2) Urobilinogen, UA 0.2 0.2-1.0 (test code = 83344-4) RBC, UA (test code = 15 See_Comment [Autom ated 40406-2) message] The system which generated this result [...] UA See_Comment [Automate d (test code = 00411-5) messag e] The system which generated this [...] (test Occasional None Seen A code = 00191-7) Specimen Source (test code = 2795) SHANA (test code = SHANA) Focused Factory Manager ID - [auto]Focused Factory Manager ID - tech Lab Interpretation Abnormal (test code = 54169-4) [facility] Reflex to Culture 2022-09-07 02:18:03 Test Item Value Reference Range Interpretation Comments Color, UA (test code Yellow = 5778-6) Clarity, UA (test Hazy code = 5767-9) Specific Linch, UA 1.028 1.001-1.035 (test code = 5811-5) pH, UA (test code = 6.0 5.0-8.0 5803-2) Protein, UA (test 20 mg/dL Negative A code = 78347-9) Glucose, UA (test 150 mg/dL Negative A code = 365) Ketones, UA (test Negative Negative code = 2514-8) Bilirubin, UA (test Negative Negative code = 78517-9) Blood, UA (test code Negative Negative = 08634-3) Nitrite, UA (test Negative Negative code = 5802-4) Leukocytes, UA (test Small Negative A code = 5799-2) Urobilinogen, UA 0.2 0.2-1.0 (test code = 70949-2) RBC, UA (test code = 15 See_Comment [Autom ated 34020-6) message] The system which generated this result [...] UA See_Comment [Automate d (test code = 88564-0) messag e] The system which generated this [...] (test Occasional None Seen A code = 81227-5) Specimen Source (test code = 2795) SHANA (test code = SHANA) Focused Factory Manager ID - [auto]Focused Factory Manager ID - tech Lab Interpretation Abnormal (test code = 72168-8) [facility] + Reflex to Culture 2022-09-07 02:18:03 Test Item Value Reference Range Interpretation Comments Color, UA (test code Yellow = 5778-6) Clarity, UA (test Hazy code = 5767-9) Specific Linch, UA 1.028 1.001-1.035 (test code = 5811-5) pH, UA (test code = 6.0 5.0-8.0 5803-2) Protein, UA (test 20 mg/dL Negative A code = 48318-9) Glucose, UA (test 150 mg/dL Negative A code = 365) Ketones, UA (test Negative Negative code = 2514-8) Bilirubin, UA (test Negative Negative code = 63439-6) Blood, UA (test code Negative Negative = 24064-6) Nitrite, UA (test Negative Negative code = 5802-4) Leukocytes, UA (test Small Negative A code = 5799-2) Urobilinogen, UA 0.2 0.2-1.0 (test code = 95064-7) RBC, UA (test code = 15 See_Comment [Autom ated 53763-3) message] The system which generated this result [...] UA See_Comment [Automate d (test code = 54935-9) messag e] The system which generated this [...] (test Occasional None Seen A code = 98058-8) Specimen Source (test code = 2795) SHANA (test code = SHANA) Focused Factory Manager ID - [auto]Focused Factory Manager ID - tech Lab Interpretation Abnormal (test code = 94477-0) [facility] + Reflex to Culture 2022-09-07 02:18:03 Test Item Value Reference Range Interpretation Comments Color, UA (test code Yellow = 5778-6) Clarity, UA (test Hazy code = 5767-9) Specific Linch, UA 1.028 1.001-1.035 (test code = 5811-5) pH, UA (test code = 6.0 5.0-8.0 5803-2) Protein, UA (test 20 mg/dL Negative A code = 36797-7) Glucose, UA (test 150 mg/dL Negative A code = 365) Ketones, UA (test Negative Negative code = 2514-8) Bilirubin, UA (test Negative Negative code = 20807-7) Blood, UA (test code Negative Negative = 56997-1) Nitrite, UA (test Negative Negative code = 5802-4) Leukocytes, UA (test Small Negative A code = 5799-2) Urobilinogen, UA 0.2 0.2-1.0 (test code = 62589-2) RBC, UA (test code = 15 See_Comment [Autom ated 96065-7) message] The system which generated this result [...] UA See_Comment [Automate d (test code = 02314-0) messag e] The system which generated this [...] (test Occasional None Seen A code = 44117-8) Specimen Source (test code = 2795) SHANA (test code = SHANA) Focused Factory Manager ID - [auto]Focused Factory Manager ID - tech Lab Interpretation Abnormal (test code = 54707-9) [facility] UR[facility] [id number] 02:18:03 Test Item Value Reference Range Interpretation [...] = 1521) SOURCE(BEAKER) (test code = 2795) Focused Factory Manager ID - [auto]Focused Factory Manager ID - techCF RESPIRATORY [id number] 13:04:52 Test Item Value Reference Range Interpretation [...] 3+ Normal respiratory maria del carmen presentCT, [id number] 05:31:00Reason for exam:->ABDOMINAL PAINReason for exam:->NAUSEAReason for exam:- >BLOATEDWhat is the patient's sedation requirement?->No Sedation [facility] : 1975 Sex: MFINAL REPORT CT, ABDOMEN [...] Signed: Teddy Ly MDReportVerified Date/Time: 06/27/2022 05:31:41 [id number] 02:42:45 Test Item Value Reference Range Interpretation Comments LIPASE (BEAKER) (test code = 749) < U/L 8-78 L Focused Factory Manager ID - ANETA LHEPATIC FUNCTION [id number] 02:15:20 Test Item Value Reference Range Interpretation [...] (test code = 16 U/L 6-55 347) Focused Factory Manager ID - ANETA LBASIC METABOLIC [id number] 02:15:19 Test Item Value Reference Range Interpretation [...] not appl icable for dialysis patien ts Focused Factory Manager ID - PIAYA LCBC W/PLT COUNT & AUTO [id number] 01:44:55 Test Item Value Reference Range Interpretation [...] PERCENT (BEAKER) (test code = 2801) BLOOD [id number] 22:01:03 Test Item Value Reference Range Interpretation Comments CULTURE (BEAKER) (test No growth in 5 days code = 1095) BLOOD [id number] 22:01:03 Test Item Value Reference Range Interpretation Comments CULTURE (BEAKER) (test No growth in 5 days code = 1095) POC-Glucose [id number] 17:23:45 Test Item Value Reference Range Interpretation Comments POC-Glucose Meter (test 137 mg/dL 70-110 H : TE STED AT [facility] code = 1538) [address] [facility] [place], [address]: Focused Factory Manager/Techni rian ID = [id number] for Religious, Kayl ynn Lab Interpretation (test Abnormal code = 53590-6) [facility] [id number] 17:23:45 Test Item Value Reference Range Interpretation Comments POC-Glucose Meter (test 137 mg/dL 70-110 H : TE STED AT [facility] code = 1538) [address] [place] [address], [address]: Focused Factory Manager/Techni rian ID = [id number] for Religious, Kayl ynn Lab Interpretation (test Abnormal code = 46252-4) [facility]-Glucose [id number] 17:23:45 Test Item Value Reference Range Interpretation Comments POC-Glucose Meter (test 137 mg/dL 70-110 H : TE STED AT [facility] code = 1538) [address] [place] [address], [address]: Focused Factory Manager/Techni rian ID = [id number] for Religious, Kayl ynn Lab Interpretation (test Abnormal code = 37194-8) [facility]-Glucose [id number] 17:23:45 Test Item Value Reference Range Interpretation Comments POC-Glucose Meter (test 137 mg/dL 70-110 H : TE STED AT [facility] code = 1538) [address] [place] [address], 770 30: Focused Factory Manager/Techni rian ID = [id number] for Religious, Kayl ynn Lab Interpretation (test Abnormal code = 85709-0) [facility]-Glucose [id number] 17:23:45 Test Item Value Reference Range Interpretation Comments POC-Glucose Meter (test 137 mg/dL 70-110 H : TE STED AT [facility] code = 1538) [address] [place] [address], 770 30: Focused Factory Manager/Techni rian ID = [id number] for Religious, Kayl ynn Lab Interpretation (test Abnormal code = 33822-7) [facility]-Glucose [id number] 17:23:45 Test Item Value Reference Range Interpretation Comments POC-Glucose Meter (test 137 mg/dL 70-110 H : TE STED AT [facility] code = 1538) [address] [place] [address], 770 30: Focused Factory Manager/Techni rian ID = [id number] for Religious, Kayl ynn Lab Interpretation (test Abnormal code = 39682-4) [facility] [id number] 17:23:45 Test Item Value Reference Range Interpretation Comments POC-Glucose Meter (test 137 mg/dL 70-110 H : TE STED AT [facility] code = 1538) [address] [facility], 770 30: Focused Factory Manager/Techni rian ID = [id number] for Religious, Kayl ynn Lab Interpretation (test Abnormal code = 58398-8) [facility] [id number] 17:23:45 Test Item Value Reference Range Interpretation Comments POC-Glucose Meter (test 137 mg/dL 70-110 H : TE STED AT [facility] code = 1538) [address] [place] [address], 770 30: Focused Factory Manager/Techni rian ID = [id number] for Religious, Kayl ynn Lab Interpretation (test Abnormal code = 02967-9) [facility]-Glucose [id number] 17:23:45 Test Item Value Reference Range Interpretation Comments POC-Glucose Meter (test 137 mg/dL 70-110 H : TE STED AT [facility] code = 1538) [address] [place] [address], 770 30: Focused Factory Manager/Techni rian ID = [id number] for Religious, Kayl ynn Lab Interpretation (test Abnormal code = 06313-4) [id number] 17:23:45 Test Item Value Reference Range Interpretation Comments POC-GLUCOSE METER 137 mg/dL 70-110 H : TESTED A T [facility] 6720 (BEAKER) (test code = [facility], 1538) 53867: Focused Factory Manager/Techni rian ID = [id number] for Ch ristian, Radha POCT-GLUCOSE [id number] 13:08:56 Test Item Value Reference Range Interpretation Comments POC-GLUCOSE METER 101 mg/dL 70-110 : TESTED A T [facility] 6720 (BEAKER) (test code = [facility], 1538) 15290: Focused Factory Manager/Techni rian ID = [id number] for Ch ristian, Radha POCT-GLUCOSE [id number] 06:01:56 Test Item Value Reference Range Interpretation Comments POC-GLUCOSE METER 99 mg/dL 70-110 : TESTED A T [facility] 6720 (BEAKER) (test code = [place], 1538) [address]1970: Focused Factory Manager/Techni rian ID = [id number] for NAOMI NAPIER [id number] 04:54:21 Test Item Value Reference Range Interpretation Comments PHOSPHORUS (BEAKER) (test code = 2.2 mg/dL 2.3-4.7 L 604) Focused Factory Manager ID - ANETA LBASIC METABOLIC [id number] 04:54:20 Test Item Value Reference Range Interpretation [...] not appl icable for dialysis patien ts Focused Factory Manager ID - ANETA [id number] 04:54:20 Test Item Value Reference Range Interpretation Comments MAGNESIUM (BEAKER) (test code = 1.5 mg/dL 1.6-2.6 L 627) Focused Factory Manager ID - ANETA LCALCIUM, [id number] 04:35:35 Test Item Value Reference Range Interpretation Comments CALCIUM IONIZED (BEAKER) (test 1.21 mmol/L 1.12-1.27 code = 698) PH, BLOOD (BEAKER) (test code = 7.44 1810) CBC W/PLT COUNT & AUTO [id number] 04:29:51 Test Item Value Reference Range Interpretation [...] PERCENT (BEAKER) (test code = 2801) POCT-GLUCOSE [id number] 00:27:52 Test Item Value Reference Range Interpretation Comments POC-GLUCOSE METER 122 mg/dL 70-110 H : TESTED A T [facility] 6720 (BEAKER) (test code = [facility], 1538) 50236: Focused Factory Manager/Techni rian ID = [id number] for NAOMI WARD POCT-GLUCOSE [id number] 17:23:54 Test Item Value Reference Range Interpretation Comments POC-GLUCOSE METER 99 mg/dL 70-110 : TESTED A T [facility] 6720 (BEAKER) (test code = [facility], [facility]8) 89012: Focused Factory Manager/Techni rian ID = [id number] for Radha Mulligan POCT-GLUCOSE [id number] 13:00:38 Test Item Value Reference Range Interpretation Comments POC-GLUCOSE METER 109 mg/dL 70-110 : TESTED A T [facility] 6720 (BEAKER) (test code = [facility], 1538) 19355: Focused Factory Manager/Techni rian ID = [id number] for Jesse marcos Radha POCT-GLUCOSE [id number] 08:29:30 Test Item Value Reference Range Interpretation Comments POC-GLUCOSE METER 88 mg/dL 70-110 : TESTED A T [facility] 6720 (BEAKER) (test code = [facility], 1538) 10291: Focused Factory Manager/Techni rian ID = [id number] for Radha Mulligan [id number] 06:05:22 Test Item Value Reference Range Interpretation Comments MAGNESIUM (BEAKER) (test code = 1.6 mg/dL 1.6-2.6 627) Focused Factory Manager ID - [id number] 06:05:22 Test Item Value Reference Range Interpretation Comments PHOSPHORUS (BEAKER) (test code = 2.5 mg/dL 2.3-4.7 604) Focused Factory Manager ID - MITCHBASIC METABOLIC [id number] 06:05:21 Test Item Value Reference Range Interpretation [...] not appl icable for dialysis patien ts Focused Factory Manager ID - MITCHCBC W/PLT COUNT & AUTO [id number] 05:22:05 Test Item Value Reference Range Interpretation [...] PERCENT (BEAKER) (test code = 2801) CALCIUM, [id number] 05:08:23 Test Item Value Reference Range Interpretation Comments CALCIUM IONIZED (BEAKER) (test 1.18 mmol/L 1.12-1.27 code = 698) PH, BLOOD (BEAKER) (test code = 7.42 1810) POCT-GLUCOSE [id number] 21:15:12 Test Item Value Reference Range Interpretation Comments POC-GLUCOSE METER 98 mg/dL 70-110 : TESTED A T [facility] 6720 (BEAKER) (test code = [facility], 1538) 03987: Focused Factory Manager/Techni rian ID = [id number] for KURT JACQUES POCT-GLUCOSE [id number] 17:48:23 Test Item Value Reference Range Interpretation Comments POC-GLUCOSE METER 90 mg/dL 70-110 : TESTED A T [facility] 6720 (BEAKER) (test code = [facility], [facility]8) 36121: Focused Factory Manager/Techni rian ID = [id number] for OLLIE OS, BJORN POCT-GLUCOSE [id number] 12:56:50 Test Item Value Reference Range Interpretation Comments POC-GLUCOSE METER 78 mg/dL 70-110 : TESTED A T [facility] 6720 (BEAKER) (test code = [facility], [facility]8) 37391: Focused Factory Manager/Techni rian ID = [id number] for OLLIE OS, BJORN POCT-GLUCOSE [id number] 10:25:02 Test Item Value Reference Range Interpretation Comments POC-GLUCOSE METER 86 mg/dL 70-110 : TESTED A T [facility] 6720 (BEAKER) (test code = [facility], [facility]) 14709: Focused Factory Manager/Techni rian ID = [id number] for KOLL EADE, RITCHEL POCT-GLUCOSE [id number] 08:38:42 Test Item Value Reference Range Interpretation Comments POC-GLUCOSE METER 39 mg/dL 70-110 LL : TESTED A T [facility] 6720 (BEAKER) (test code = [facility], [facility]8) 65847: Focused Factory Manager/Techni rian ID = [id number] for OLLIE OS, BJORN BASIC METABOLIC [id number] 06:19:55 Test Item Value Reference Range Interpretation [...] not appl icable for dialysis patien ts Focused Factory Manager ID - ANETA [id number] 06:19:55 Test Item Value Reference Range Interpretation Comments MAGNESIUM (BEAKER) (test code = 1.7 mg/dL 1.6-2.6 627) Focused Factory Manager ID - ANETA [id number] 06:19:55 Test Item Value Reference Range Interpretation Comments PHOSPHORUS (BEAKER) (test code = 2.7 mg/dL 2.3-4.7 604) Focused Factory Manager ID - ANETA LCALCIUM, [id number] 05:32:18 Test Item Value Reference Range Interpretation Comments CALCIUM IONIZED (BEAKER) (test 1.17 mmol/L 1.12-1.27 code = 698) PH, BLOOD (BEAKER) (test code = 7.38 1810) CBC W/PLT COUNT & AUTO [id number] 05:17:46 Test Item Value Reference Range Interpretation [...] PERCENT (BEAKER) (test code = 2801) POCT-GLUCOSE [id number] 21:21:38 Test Item Value Reference Range Interpretation Comments POC-GLUCOSE METER 83 mg/dL 70-110 : TESTED A T [facility] 6720 (BEAKER) (test code = [facility], 1538) 89356: Focused Factory Manager/Techni rian ID = [id number] for KURT JACQUES POCT-GLUCOSE [id number] 17:35:25 Test Item Value Reference Range Interpretation Comments POC-GLUCOSE METER 92 mg/dL 70-110 : TESTED A T [facility] 6720 (BEAKER) (test code = [facility], 1538) 27929: Focused Factory Manager/Techni rian ID = [id number] for BJORN SANCHES POCT-GLUCOSE [id number] 12:27:21 Test Item Value Reference Range Interpretation Comments POC-GLUCOSE METER 86 mg/dL 70-110 : TESTED A T [facility] 6720 (BEAKER) (test code = JUSTINE Ha [facility], 1538) 48400: Focused Factory Manager/Techni rian ID = [id number] for ABDIRASHID ANGEL BASIC METABOLIC [id number] 05:55:16 Test Item Value Reference Range Interpretation [...] not appl icable for dialysis patien ts Focused Factory Manager ID - NEIL [id number] 05:55:16 Test Item Value Reference Range Interpretation Comments MAGNESIUM (BEAKER) (test code = 1.4 mg/dL 1.6-2.6 L 627) Focused Factory Manager HODA TREJO MCBC W/PLT COUNT & AUTO [id number] 04:55:50 Test Item Value Reference Range Interpretation [...] PERCENT (BEAKER) (test code = 2801) SARS-COV2/RT-PCR ([facility])2022-06-18 23:40:17 Test Item Value Reference Range Interpretation Comments SARS-COV2/RT-PCR Negative Negative The SARS-Co V-2 target (test code = nucleic acids a re not 9629233) detected in thi s specimen. Negative result [...] revoked sooner. Fact Sheet for Healthcare Providers: https://www.[employer]co m/Documents/Xpert%20Xpress%20SARS%20CoV-2/Fact%20Sheets/302-7402%03PTCK-KOS-6%20 HEALTHCARE%20PROVIDERS%20FACT%20SHEET.pdf Fact Sheet for Healthcare Patients: https://www.[employer]/Documents/Xpert%20Xp ress%20SARS%20CoV-2/Fact%20Sheets/302-3801%90QQSL-PMZ-0%20PATIENT%20FACT%20SHEET .pdfCT, [id number] 23:39:00Unlisted Reason for Exam - Click Yes and Enter Reason Below->NoIs this for enterography?->NoWill this procedure require oral contrast?->No [facility] 1975 Sex: MFINAL REPORT TECHNIQUE: CT [...] Mosley MDReport Verified Date/Time: 06/18/2022 23:39:49 POCT-GLUCOSE [id number] 23:35:19 Test Item Value Reference Range Interpretation Comments POC-GLUCOSE METER 105 mg/dL 70-110 : [facility] (BEAKER) (test code [facility], = 1538) 50635: Focused Factory Manager/Techni rian ID = [id number] for SABINE WOODS [id number] 21:52:33 Test Item Value Reference Range Interpretation Comments PARTIAL THROMBOPLASTIN TIME 31.4 seconds 22.5-36.0 (BEAKER) (test code = 760) PROTHROMBIN TIME/[id number] 21:51:51 Test Item Value Reference Range Interpretation Comments PROTIME (BEAKER) 18.2 seconds 11.9-14.2 H (test code = 759) INR (BEAKER) (test 1.61 See_Comment [Automat ed message] code = 370) The system [employer] generated this result transmitted ref erence range: [...] St age Description sq m Result G1 Norm al or high >=90 G2 Mildly decreased 60-89 [...] not appl icable for dialysis patien ts Focused Factory Manager ID - NEIL MLACTIC ACID, [id number] 21:36:08 Test Item Value Reference Range Interpretation Comments LACTATE BLOOD VENOUS 1.03 mmol/L 0.50-2.20 Specime n slightly (2) (BEAKER) (test hemolyzed code = 0290) Focused Factory Manager ID - HARLEY MCBC W/PLT COUNT & AUTO [id number] 21:29:50 Test Item Value Reference Range Interpretation [...] (test code = No acid fast bacilli 09604-1) [facility]sp[facility] only)2022-03-05 13:13:42 Test Item Value Reference Range Interpretation Comments Result (test code = No acid-fast bacilli 6463-4) isolated in 42 days AFB Smear (test code = No acid fast bacilli 81330-3) [facility] (sputum only)2022-03-05 13:13:42 Test Item Value Reference Range Interpretation Comments Result (test code = No acid-fast bacilli 6463-4) isolated in 42 days AFB Smear (test code = No acid fast bacilli 36499-2) [facility] (sputum only)2022-03-05 13:13:42 Test Item Value Reference Range Interpretation Comments Result (test code = No acid-fast bacilli 6463-4) isolated in 42 days AFB Smear (test code = No acid fast bacilli 78979-3) [facility] (sputum only)2022-03-05 13:13:42 Test Item Value Reference Range Interpretation Comments Result (test code = No acid-fast bacilli 6463-4) isolated in 42 days AFB Smear (test code = No acid fast bacilli 15416-8) [facility] smear (sputum only)2022-03-05 13:13:42 Test Item Value Reference Range Interpretation Comments Result (test code = No acid-fast bacilli 6463-4) isolated in 42 days AFB Smear (test code = No acid fast bacilli 36782-7) [facility] (sputum only)2022-03-05 13:13:42 Test Item Value Reference Range Interpretation Comments Result (test code = No acid-fast bacilli 6463-4) isolated in 42 days AFB Smear (test code = No acid fast bacilli 56979-2) [facility] smear (sputum only)2022-03-05 13:13:42 Test Item Value Reference Range Interpretation Comments Result (test code = No acid-fast bacilli 6463-4) isolated in 42 days AFB Smear (test code = No acid fast bacilli 86321-0) [facility] + SMEAR (SPUTUM ONLY)2022-03-05 [...] code = 994) seen Fungus culture + [id number] 17:15:11 Test Item Value Reference Range Interpretation Comments Result (test code = No fungus isolated in 6463-4) 28 days Fungus Smear (test No fungi seen code = 1406) [facility] + [id number] 17:15:11 Test Item Value Reference Range Interpretation Comments Result (test code = No fungus isolated in 6463-4) 28 days Fungus Smear (test No fungi seen code = 1406) [facility] + [id number] 17:15:11 Test Item Value Reference Range Interpretation Comments Result (test code = No fungus isolated in 6463-4) 28 days Fungus Smear (test No fungi seen code = 1406) [facility] + [id number] 17:15:11 Test Item Value Reference Range Interpretation Comments Result (test code = No fungus isolated in 6463-4) 28 days Fungus Smear (test No fungi seen code = 1406) [facility] + [id number] 17:15:11 Test Item Value Reference Range Interpretation Comments Result (test code = No fungus isolated in 6463-4) 28 days Fungus Smear (test No fungi seen code = 1406) [facility] + [id number] 17:15:11 Test Item Value Reference Range Interpretation Comments Result (test code = No fungus isolated in 6463-4) 28 days Fungus Smear (test No fungi seen code = 1406) [facility] + [id number] 17:15:11 Test Item Value Reference Range Interpretation Comments CULTURE (BEAKER) (test No fungus isolated in code = 1095) 28 days FUNGUS SMEAR (BEAKER) No fungi seen (test code = 1406) FUNGUS CULTURE + [id number] 23:48:39 Test Item Value Reference Range Interpretation Comments CULTURE (BEAKER) (test No fungus isolated in code = 1095) 28 days FUNGUS SMEAR (BEAKER) No fungi seen (test code = 1406) [facility] RESPIRATORY [id number] 09:35:46 Test Item Value Reference Interpretation Comments [...] 4+ Normal respiratory maria del carmen presentSPIN/CONCENTRATION [id number] 06:58:03 Test Item Value Reference Range Interpretation Comments Concentration charged (test code = Done 786) [facility] [id number] 06:58:03 Test Item Value Reference Range Interpretation Comments Concentration charged (test code = Done 265) [facility] [id number] 06:58:03 Test Item Value Reference Range Interpretation Comments Concentration charged (test code = Done 2657) [facility] [id number] 06:58:03 Test Item Value Reference Range Interpretation Comments Concentration charged (test code = Done 2657) [facility] [id number] 06:58:03 Test Item Value Reference Range Interpretation Comments Concentration charged (test code = Done 2657) [facility] [id number] 06:58:03 Test Item Value Reference Range Interpretation Comments Concentration charged (test code = Done 7) [facility] [id number] 06:58:03 Test Item Value Reference Range Interpretation Comments CONCENTRATION CHARGED (BEAKER) (test Done code = 2657) CF RESPIRATORY [id number] 12:17:43 Test Item Value Reference Interpretation Comments [...] S [Auto mated message] 1) The system [employer] generated this result transmit joann reference range : Susceptible 0-1 6 , Resistant <0 or >16 . The reference range was not u sed to interpret th is result as normal/abnormal . Aztreonam (test code See_Comment S [Autom ated message] = 32) The system [employer] generated this result transmit joann reference range : Susceptible 0-8 , Resistant <0 or >8 . The reference r taurus was not used to interpret this result as normal/abnormal . Cefepime (test code = See_Comment R [Auto mated message] 51) The system [employer] generated this result transmit joann reference range : Susceptible 0-8 , Resistant <0 or >8 . The reference r taurus was not used to interpret this result as normal/abnormal . Ceftazidime (test See_Comment S [Automate d message] code = 27) The system [employer] generated this result transmit joann reference range : Susceptible 0-8 , Resistant <0 or >8 . The reference r taurus was not used to interpret this result as normal/abnormal . Ciprofloxacin (test See_Comment S [Automa joann message] code = 7) The system [employer] generated this result transmit joann reference range : Susceptible 0-0 .5 , Resistant <0 or >.5 . The reference range was not u sed to interpret th is result as normal/abnormal . Doripenem (test code See_Comment S [Autom ated message] = 100) The system [employer] generated this result transmit joann reference range : Susceptible 0-2 , Resistant <0 or >2 . The reference r taurus was not used to interpret this result as normal/abnormal . Gentamicin (test code See_Comment S [Auto mated message] = 18) The system [employer] generated this result transmit joann reference range : Susceptible 0-4 , Resistant <0 or >4 . The reference r taurus was not used to interpret this result as normal/abnormal . Imipenem (test code = See_Comment S [Auto mated message] 19) The system [employer] generated this result transmit joann reference range : Susceptible 0-2 , Resistant <0 or >2 . The reference r taurus was not used to interpret this result as normal/abnormal . Levofloxacin (test See_Comment S [Automat ed message] code = 22) The system [employer] generated this result transmit joann reference range : Susceptible 0-1 , Resistant <0 or >1 . The reference r taurus was not used to interpret this result as normal/abnormal . Meropenem (test code See_Comment S [Autom ated message] = 34) The system [employer] generated this result transmit joann reference range : Susceptible 0-2 , Resistant <0 or >2 . The reference r taurus was not used to interpret this result as normal/abnormal . Piperacillin (test See_Comment S [Automat ed message] code = 24) The system [employer] generated this result transmit joann reference range [...] [Auto mated message] = 25) The system [employer] generated this result transmit joann reference range : Susceptible 0-4 , Resistant <0 or >4 . The reference r taurus was not used to interpret this result as normal/abnormal . 3+ Normal respiratory maria del carmen presentSPIN/CONCENTRATION [id number] 11:16:43 Test Item Value Reference Range Interpretation Comments CONCENTRATION CHARGED (BEAKER) (test Done code = 2657) RAD, ABDOMEN/KUB, 1 VIEW [id number] 07:57:00Reason for exam:->Ileus [facility] 1975 Sex: MFINAL REPORT RAD, ABDOMEN/KUB, [...] MDReport Verified Date/Time: 12/06/2021 07:57:20 Basic Metabolic [id number] 06:04:20 Test Item Value Reference Range Interpretation [...] Calcium (test code = 8.8 mg/dL 8.4-10.2 89101-5) EGFR (test code = 85 mL/min/1.73 [place] [address]-5) NOT ACCURATE CREATININE CLEARANCE IN PREDICTING GLOMERULAR FILTRATION RATE . ESTIMATED GFR I S NOT APPLICABLE FOR DIALYSIS PATIENTS. SHANA (test code = SHANA) Focused Factory Manager ID - DB Lab Interpretation Abnormal (test code = 05427-3) [facility] [id number] 06:04:20 Test Item Value Reference Range Interpretation [...] S NOT APPLICABLE FOR DIALYSIS PATIEN TS. Focused Factory Manager ID - [id number] (Hemogram only)2021-12-06 05:34:09 Test Item Value Reference Range Interpretation Comments WBC (test code = 6690-2) 6.3 See_Comment [A utomated message] The system [employer] generated this result transmitted ref erence range: 3.5 - 10 .5 K/L. The refe rence range was not u sed to interpret this result as normal/abnor mal. RBC (test code = 789-8) 3.96 See_Comment L [Au tomated message] The system [employer] generated this result transmitted ref erence range: 4.63 - 6 .08 M/L. The refe rence range was not u sed to interpret this result as normal/abnor mal. MCHC (test code = 786-4) 34.3 See_Comment L [A utomated message] The system [employer] generated this result transmitted ref erence range: [...] code = 267 See_Comment [Aut omated message] 847-3) The system [employer] generated this result transmitted ref erence range: 150 - 45 0 K/CU MM. The referen ce range was not u sed to interpret this result as normal/abnor mal. MPV (test code = 10.6 fL 9.4-12.4 74654-1) nRBC (test code = 413) 0 See_Comment [Aut omated message] The system [employer] generated this result transmitted ref erence range: 0 - 0 /1 00 WBC. The refere nce range was not u sed to interpret this result as normal/abnor mal. Lab Interpretation (test Abnormal code = 05987-0) [facility] (Hemogram only)2021-12-06 05:34:09 Test Item Value Reference Range Interpretation Comments WBC (test code = 6690-2) 6.3 See_Comment [A utomated message] The system [employer] generated this result transmitted ref erence range: 3.5 - 10 .5 K/L. The refe rence range was not u sed to interpret this result as normal/abnor mal. RBC (test code = 789-8) 3.96 See_Comment L [Au tomated message] The system [employer] generated this result transmitted ref erence range: 4.63 - 6 .08 M/L. The refe rence range was not u sed to interpret this result as normal/abnor mal. MCHC (test code = 786-4) 34.3 See_Comment L [A utomated message] The system [employer] generated this result transmitted ref erence range: [...] code = 267 See_Comment [Aut omated message] 017-3) The system [employer] generated this result transmitted ref erence range: 150 - 45 0 K/CU MM. The referen ce range was not u sed to interpret this result as normal/abnor mal. MPV (test code = 10.6 fL 9.4-12.4 82769-1) nRBC (test code = 413) 0 See_Comment [Aut omated message] The system [employer] generated this result transmitted ref erence range: 0 - 0 /1 00 WBC. The refere nce range was not u sed to interpret this result as normal/abnor mal. Lab Interpretation (test Abnormal code = 87628-4) [facility] (HEMOGRAM ONLY)2021-12-06 05:34:09 Test Item [...] 0-0 (BEAKER) (test code = 413) POC-Glucose [id number] 17:51:28 Test Item Value Reference Range Interpretation Comments POC-Glucose Meter (test 137 mg/dL 70-110 H : TE STED AT [facility] code = 1538) [address] [place], 770 30: Focused Factory Manager/Techni rian ID = [id number] for Jane Мария Lab Interpretation (test Abnormal code = 27462-9) [facility] [id number] 17:51:28 Test Item Value Reference Range Interpretation Comments POC-GLUCOSE METER 137 mg/dL 70-110 H : TESTED Lillian Méndez [facility] 6720 (DWAYNE) (test code = JUSTINE CORTEZ [place], 1538) [address]: Focused Factory Manager/Techni rian ID = [id number] for Мария Barroso SARS-CoV2/RT-PCR (Asymptomatic ONLY)2021-12-05 17:31:06 Test Item Value Reference Range Interpretation Comments SARS-COV2/RT-PCR Negative Not Detected, (test code = Negative, See 89284-1) external report for linked test SARS-COV-2 [facility] TERI PERFORMING LAB (test code = 97717-0) SHANA (test code = Negative result for [...] of the Act. Fact Sheet for Healthcare Providers:https://www.qu idel.SoCloz/sites/default/f laureano/product/documents/F act_Sheet_HC_Providers_L qdm_MQQK-RlO-8.pdf Fact Sheet for Healthcare Patients:https://www.TopTechPhoto/sites/default/fi les/product/documents/Fa ct_Sheet_Patients_Ly_S ARS-CoV-2.pdf Performing Laboratory:[facility], [place] [address] [place], [place] [address]ARS-COV2/RT-PCR ([facility])2021-12-05 17:31:06 Test Item Value Reference Range Interpretation Comments SARS-COV2/RT-PCR (test Negative Not Detected, Negative, code = 7375269) See external report for linked test SARS-COV-2 PERFORMING LAB [facility] TERI (test code = 9105765) Negative result for this test determines that [...] of the Act.Fact Sheet for Healthcare Prov iders:https://www.MediCard/sites/default/files/product/documents/Fact_Sheet_HC _Dzdlcdgbl_Mlfg_SFUF-SfB-8.pdfFact Sheet for Healthcare Patients:https://www.MediCard/sites/default/files/product/docume nts/Rjrb_Piizp_Wzywsgzn_Wovq_XTOB-ZmY-6.pdfPerforming Laboratory:[facility], [place] [address]WU, [id number] 10:17:00Unlisted Reason for Exam - Click Yes and Enter Reason Below->NoIs this for enterography?->NoWill this procedure require oral contrast?->No [facility] ROBLESReyna SALAS : 1975 Sex: MFINAL REPORT CT abdomen [...] MDReport Verified Date/Time: 12/05/2021 10:17:33 Reading Location: [facility] C013X OrthoConsult Reading Room Comprehensive metabolic [id number] 08:12:08 Test Item Value Reference Range Interpretation Comments Protein, Total (test 7.8 See_Comment [Autom ated code = 2885-2) message] The system which generated this result transmit joann reference range : 6.0 - 8.3 gm/dL . The reference range was not u sed to interpret th is result as normal/abnormal . Albumin (test code = 4.2 g/dL 3.5-5.0 73519-6) Alkaline Phosphatase 94 U/L 40-150 (test code [...] Calcium (test code = 9.4 mg/dL 8.4-10.2 56892-0) AST (test code = 15 U/L 5-34 1920-8) ALT (test code = 14 U/L 6-55 1742-6) EGFR (test code = 79 mL/min/1.73 [place] [address]-1) NOT ACCURATE CREATININE CLEARANCE IN PREDICTING GLOMERULAR FILTRATION RATE . ESTIMATED GFR I S NOT APPLICABLE FOR DIALYSIS PATIEN SHANA (test code = SHANA) Focused Factory Manager ID - NEIL M Lab Interpretation Abnormal (test code = 08895-8) [facility] 08:12:08 Test Item Value Reference Range Interpretation Comments Lipase (test code = 4 U/L 8-78 L 3040-3) SHANA (test code = SHANA) Focused Factory Manager ID - NEIL M Lab Interpretation (test Abnormal code = 77001-4) [facility] CenterCOMPREHENSIVE METABOLIC [id number] 08:12:08 Test Item Value Reference Range Interpretation [...] U/L 6-55 (test code = 347) EGFR (DWAYNE) (test 79 mL/min/1.73 ESTIMA JOANN GFR IS code = 1092) sq m NOT ACCURATE CREATININE CLEARANCE IN PREDICTING GLOMERULAR FILTRATION RATE . ESTIMATED GFR I S NOT APPLICABLE FOR DIALYSIS PATIEN TS. Focused Factory Manager ID - NEIL [id number] 08:12:08 Test Item Value Reference Range Interpretation Comments LIPASE (DWAYNE) (test code = 749) 4 U/L 8-78 L Focused Factory Manager ID - NEIL MCBC with platelet count + automated [id number] 07:54:26 Test Item Value Reference Range Interpretation Comments WBC (test code = 6690-2) 7.2 See_Comment [A utomated message] The system [employer] generated this result transmitted ref erence range: 3.5 - 10 .5 K/L. The refe rence range was not u sed to interpret this result as normal/abnor mal. RBC (test code = 789-8) 4.53 See_Comment L [Au tomated message] The system [employer] generated this result transmitted ref erence range: 4.63 - 6 .08 M/L. The refe rence range was not u sed to interpret this result as normal/abnor mal. MCHC (test code = 786-4) 32.0 See_Comment L [A utomated message] The system [employer] generated this result transmitted ref erence range: [...] See_Comment [Aut omated message] 777-3) The system [employer] generated this result transmitted ref erence range: 150 - 45 0 K/CU MM. The referen ce range was not u sed to interpret this result as normal/abnor mal. MPV (test code = 10.4 fL 9.4-12.4 83389-3) nRBC (test code = 413) 0 See_Comment [Aut omated message] The system [employer] generated this result transmitted ref erence range: [...] See_Comment [Aut omated message] 670) The system [employer] generated this result transmitted ref erence range: 1.78 - 5 .38 K/L. The refe rence range was not u sed to interpret this result as normal/abnor mal. # Lymphs (test code = 1.62 See_Comment [Auto mated message] 414) The system [employer] generated this result transmitted ref erence range: 1.32 - 3 .57 K/L. The refe rence range was not u sed to interpret this result as normal/abnor mal. # Monos (test code = 0.83 See_Comment H [Autom ated message] 415) The system [employer] generated this result transmitted ref erence range: 0.30 - 0 .82 K/L. The refe rence range was not u sed to interpret this result as normal/abnor mal. # Eos (test code = 416) 0.14 See_Comment [Au tomated message] The system [employer] generated this result transmitted ref erence range: 0.04 - 0 .54 K/L. The refe rence range was not u sed to interpret this result as normal/abnor mal. # Baso (test code = 417) 0.05 See_Comment [A utomated message] The system [employer] generated this result transmitted ref erence range: 0.01 - 0 .08 K/L. The refe rence range was not u sed to interpret this result as normal/abnor mal. Immature 0 % 0-1 Granulocytes-Relative (test code = 2801) Lab Interpretation (test Abnormal code = 34096-5) [facility] W/PLT COUNT & AUTO [id number] 07:54:26 Test Item Value Reference Range Interpretation [...] code = 2801) RAD, ABDOMEN/KUB, 1 VIEW [id number] 14:09:00Reason for exam:->assess for improvement in bowel distension and stool burden [facility] 1975 Sex: MFINAL REPORT Exam: RAD, [...] limitations of this study. Signed: Candelario Sosa MDRbridgeport hospital Verified Date/Time: 11/30/2021 14:09:22 Reading Location: [facility] Radiology Reading Room BASIC METABOLIC [id number] 09:26:15 Test Item Value Reference Range Interpretation [...] S NOT APPLICABLE FOR DIALYSIS PATIEN TS. Focused Factory Manager ID - DBBASIC METABOLIC [id number] 06:08:04 Test Item Value Reference Range Interpretation [...] S NOT APPLICABLE FOR DIALYSIS PATIEN TS. Focused Factory Manager ID - BSCBC W/PLT COUNT & AUTO [id number] 05:40:30 Test Item Value Reference Range Interpretation [...] PERCENT (BEAKER) (test code = 2801) SARS-COV2/RT-PCR ([facility])2021-11-25 10:17:30 Test Item Value Reference Range Interpretation Comments SARS-COV2/RT-PCR (test Negative Not Detected, Negative, code = 5459925) See external report for linked test SARS-COV-2 PERFORMING LAB [facility] TERI (test code = 9015143) Negative result for this test determines that [...] of the Act.Fact Sheet for Healthcare Prov iders:https://www.[employer]Melan Technologies.SoCloz/sites/default/files/product/documents/Fact_Sheet_HC _Jejqqncdp_Odwi_TNHT-CiY-2.pdfFact Sheet for Healthcare Patients:https://www.[employer]Mel[employer].SoCloz/sites/default/files/product/docume nts/Zmzh_Vytdq_Gvdpyfgl_Hgwv_WMEJ-BlT-4.pdfPerforming Laboratory:[facility], [place] [address]XO, [id number] 03:54:00Unlisted Reason for Exam - Click Yes and Enter Reason Below->NoIs this for enterography?->NoWill this procedure require oral contrast?->No [facility] 1975 Sex: MFINAL REPORT CLINICAL HISTORY: [...] Vizcarra MDRepor t Verified Date/Time: 11/25/2021 03:54:25 [id number] 02:50:36 Test Item Value Reference Range Interpretation Comments LIPASE (BEAKER) (test code = 749) < U/L 8-78 L Focused Factory Manager ID - BSOperator ID - NEIL MHigh Sens Trop I ([facility]/Luisa Only) 2021-11-25 01:59:11 Test Item Value Reference Range Interpretation Comments Troponin I HS (test <4 See_Comment [Automa joann code = 33808-7) message] The system which generated this result transmitted reference range : <=35 pg/ml. The reference range was not used to interpret this result as normal/abnormal . SHANA (test code = Focused Factory Manager ID - SHANA) BSThe LICENSED MENTAL HEALTH PROFESSIONAL STAT High Sensitivity Troponin-I results should be used in conjunction with other diagnostic information such as ECG, clinical observations and information, and patient symptoms to aid in the diagnosis of [place]. Lab Interpretation Normal (test code = 85106-5) [facility] ([facility]/Luisa Only)2021-11-25 01:59:11 Test Item Value Reference Range Interpretation Comments Troponin I HS (test <4 See_Comment [Automa joann code = 63577-6) message] The system which generated this result transmitted reference range : <=35 pg/ml. The reference range was not used to interpret this result as normal/abnormal . SHANA (test code = Focused Factory Manager ID - SHANA) BSThe LICENSED MENTAL HEALTH PROFESSIONAL STAT High Sensitivity Troponin-I results should be used in conjunction with other diagnostic information such as ECG, clinical observations and information, and patient symptoms to aid in the diagnosis of [place]. Lab Interpretation Normal (test code = 36149-3) [facility] ([facility]/Luisa Only)2021-11-25 01:59:11 Test Item Value Reference Range Interpretation Comments Troponin I HS (test <4 See_Comment [Automa joann code = 67238-3) message] The system which generated this result transmitted reference range : <=35 pg/ml. The reference range was not used to interpret this result as normal/abnormal . SHANA (test code = Focused Factory Manager ID - SHANA) BSThe LICENSED MENTAL HEALTH PROFESSIONAL STAT High Sensitivity Troponin-I results should be used in conjunction with other diagnostic information such as ECG, clinical observations and information, and patient symptoms to aid in the diagnosis of [place]. Lab Interpretation Normal (test code = 51989-0) [facility] Center[facility] ([facility]/Luisa Only)2021-11-25 01:59:11 Test Item Value Reference Range Interpretation Comments Troponin I HS (test <4 See_Comment [Automa joann code = 04957-6) message] The system which generated this result transmitted reference range : <=35 pg/ml. The reference range was not used to interpret this result as normal/abnormal . SHANA (test code = Focused Factory Manager ID - SHANA) BSThe LICENSED MENTAL HEALTH PROFESSIONAL STAT High Sensitivity Troponin-I results should be used in conjunction with other diagnostic information such as ECG, clinical observations and information, and patient symptoms to aid in the diagnosis of [place]. Lab Interpretation Normal (test code = 08053-0) [facility] ([facility]/Luisa Only)2021-11-25 01:59:11 Test Item Value Reference Range Interpretation Comments Troponin I HS (test <4 See_Comment [Automa joann code = 63829-6) message] The system which generated this result transmitted reference range : <=35 pg/ml. The reference range was not used to interpret this result as normal/abnormal . SHANA (test code = Focused Factory Manager ID - SHANA) BSThe LICENSED MENTAL HEALTH PROFESSIONAL STAT High Sensitivity Troponin-I results should be used in conjunction with other diagnostic information such as ECG, clinical observations and information, and patient symptoms to aid in the diagnosis of [place]. Lab Interpretation Normal (test code = 12443-8) [facility] CenterH[facility] SENSITIVITY TROPONIN [id number] 01:59:11 Test Item Value Reference Range Interpretation Comments HIGH SENSITIVITY < pg/ml See_Comment [Automated message] TROPONIN I (test code = The system which 9174386) generated this result transmitted ref erence range: <=35. Th e reference range was not used to interpr et this result as normal/abnormal . Focused Factory Manager ID - BSThe LICENSED MENTAL HEALTH PROFESSIONAL STAT High Sensitivity Troponin-I results should be used in conjunctionwith other diagnostic information such as ECG, clinical observations and information, and patient symptoms to aid in the diagnosis of [place].[id number] 01:52:12 Test Item Value Reference Range Interpretation Comments Magnesium (test code = 1.7 mg/dL 1.6-2.6 Speci men 81055-5) slightly hemolyzed SHANA (test code = SHANA) Focused Factory Manager ID - BS Lab Interpretation Normal (test code = 79185-8) [facility] CenterMAGNESIUM2022-02-16 01:52:12 Test Item Value Reference Range Interpretation Comments MAGNESIUM (BEAKER) 1.7 mg/dL 1.6-2.6 Specimen slightly (test code = 627) hemolyzed Focused Factory Manager ID - BSCOMPREHENSIVE METABOLIC [id number] 01:52:12 Test Item Value Reference Range Interpretation [...] S NOT APPLICABLE FOR DIALYSIS PATIEN TS. Focused Factory Manager ID - BSCBC W/PLT COUNT & AUTO [id number] 01:21:26 Test Item Value Reference Range Interpretation [...] PERCENT (BEAKER) (test code = 2801) Urine rrmhwee3928-02-19 12:15:43 Test Item Value Reference Range Interpretation Comments Result (test code = 6463-4) No growth [facility] [id number] 12:15:43 Test Item Value Reference Range Interpretation Comments Result (test code = 6463-4) No growth [facility] [id number] 12:15:43 Test Item Value Reference Range Interpretation Comments CULTURE (BEAKER) (test code = 1095) No growth SARS-COV2/RT-PCR ([facility])2021-11-14 08:14:56 Test Item Value Reference Range Interpretation Comments SARS-COV2/RT-PCR (test Negative Not Detected, Negative, code = 4538826) See external report for linked test SARS-COV-2 PERFORMING LAB [facility] (test code = 3843056) Negative result for this test determines that [...] of the Act.Fact Sheet for Healthcare Prov iders:https://www.MediCard/sites/default/files/product/documents/Fact_Sheet_HC _Egcfyjvtw_Nidr_OWZX-DcL-8.pdfFact Sheet for Healthcare Patients:https://www.MediCard/sites/default/files/product/docume nts/Vhgl_Ebzfj_Dqkqbvnt_Wtcm_NDNL-DgE-9.pdfPerforming Laboratory:[facility], [place] [address]KD, [id number] 00:42:00Unlisted Reason for Exam - Click Yes and Enter Reason Below->NoIs this for enterography?->NoWill this procedure require oral contrast?->No [facility] 1975 Sex: MFINAL REPORT CLINICAL HISTORY: [...] MDReport Verified Date/Time: 11/14/2021 00:42:44 COMPREHENSIVE METABOLIC [id number] 23:34:07 Test Item Value Reference Range Interpretation [...] S NOT APPLICABLE FOR DIALYSIS PATIEN TS. Focused Factory Manager ID - [id number] 23:34:07 Test Item Value Reference Range Interpretation Comments LIPASE (BEAKER) (test code = 749) 5 U/L 8-78 L Focused Factory Manager ID - [id number] 23:34:06 Test Item Value Reference Range Interpretation Comments MAGNESIUM (BEAKER) 1.5 mg/dL 1.6-2.6 L Specimen slightly (test code = 627) hemolyzed Focused Factory Manager ID - DBUrinalysis w/Microscopic + Reflex to [id number] 23:00:38 Test Item Value Reference Range Interpretation Comments Color, UA (test code Yellow = 5778-6) Clarity, UA (test Clear code = 5767-9) Specific Linch, UA 1.024 1.001-1.035 (test code = 5811-5) pH, UA (test code = 6.0 5.0-8.0 5803-2) Protein, UA (test Negative Negative code = 01904-4) Glucose, UA (test Negative Negative code = 365) Ketones, UA (test Negative Negative code = 2514-8) Bilirubin, UA (test Negative Negative code = 55128-5) Blood, UA (test code Negative Negative = 04754-1) Nitrite, UA (test Negative Negative code = 5802-4) Leukocytes, UA (test Negative Negative code = 5799-2) Urobilinogen, UA 2.0 mg/dL 0.2-1.0 H (test code = 12790-9) RBC, UA (test code = <1 See_Comment [Autom ated 07853-9) message] The system which generated this result [...] Bacteria, UA (test None Seen code = 39790-4) Crystals, Urine (test None Seen code = 59661-6) Amorphous Crystals Occasional (test code = 49266-7) Specimen Source (test code = 2795) SHANA (test code = SHANA) Focused Factory Manager ID - [auto]Focused Factory Manager ID - tech Lab Interpretation Abnormal (test code = 89881-0) [facility]/ REFLEX URINE [id number] 23:00:38 Test Item Value Reference Range Interpretation [...] = 1584) SOURCE(BEAKER) (test code = 2795) Focused Factory Manager ID - [auto]Focused Factory Manager ID - techRAD, CHEST, 1 VIEW, NON [id number] 22:26:00Reason for exam:->ABDOMINAL PAINShould this be performed at the bedside?->[facility] : 1975 Sex: MFINAL REPORT Chest, 1 view. History: Abdominal pain Comparison: Plain radiographthe chest dated 01/06/2021. Findings: The cardiomediastinal silhouette and pulmonary vasculature are within normal limits for a portable exam. The lungs are clear without evidence of consolidation or effusion. The soft tissues and osseous structures are intact. IMPRESSION: No acute cardiopulmonary abnor mality. Signed: Sofiya [facility] Verified Date/Time: 11/13/2021 22:26:25 RAD, ABDOMEN/KUB, 1 VIEW [id number] 22:25:00Reason for exam:- >ABDOMINAL PAINShould this be performed at the bedside?->Yes [facility] : 1975 Sex: MFINAL REPORT CLINICAL HISTORY: [...] no acute osseous abnormality. Signed: Ronen Vizcarra [facility] Verified Date/Time: 11/13/2021 22:25:42 CBC W/PLT COUNT & AUTO [id number] 22:21:01 Test Item Value Reference Range Interpretation [...] 0-1 PERCENT (BEAKER) (test code = 2801) [id number] 06:27:23 Test Item Value Reference Range Interpretation Comments Phosphorus (test code = 3.2 mg/dL 2.3-4.7 2777-1) SHANA (test code = SHANA) Focused Factory Manager HODA Robison Lab Interpretation (test Normal code = 27528-6) [facility] CenterPHOSPHORUS2021-10-28 06:27:23 Test Item Value Reference Range Interpretation Comments PHOSPHORUS (BEAKER) (test code = 3.2 mg/dL 2.3-4.7 604) Focused Factory Manager ID - NEIL MBASIC METABOLIC [id number] 06:27:22 Test Item Value Reference Range Interpretation [...] S NOT APPLICABLE FOR DIALYSIS PATIEN TS. Focused Factory Manager ID - NEIL [id number] 06:27:22 Test Item Value Reference Range Interpretation Comments MAGNESIUM (BEAKER) (test code = 1.7 mg/dL 1.6-2.6 627) Focused Factory Manager HODA TREJO MRAD, ABDOMEN/KUB, 1 VIEW [id number] 12:37:00Reason for exam:->Admitted for DIOSShould this be performed at the bedside?->Yes [facility] : 1975 Sex: MFINAL REPORT RAD, ABDOMEN/KUB, [...] Esperanza Duqueeport Verified Date/Time: 08/05/2021 12:37:21 Reading Location:[facility] Radiology Reading Room Electronically signed by: ESPERANZA DUQUE MD on 2020 12:37 PMBASIC METABOLIC [id number] 12:20:42 Test Item Value Reference Range Interpretation [...] S NOT APPLICABLE FOR DIALYSIS PATIEN TS. Focused Factory Manager ID - NEIL [id number] 08:22:00 Test Item Value Reference Range Interpretation Comments MAGNESIUM (BEAKER) (test code = 1.5 mg/dL 1.6-2.6 L 627) Focused Factory Manager ID - NEIL [id number] 08:22:00 Test Item Value Reference Range Interpretation Comments PHOSPHORUS (BEAKER) (test code = 1.6 mg/dL 2.3-4.7 L 604) Focused Factory Manager ID Onofre TREJO MBASIC METABOLIC [id number] 11:56:45 Test Item Value Reference Range Interpretation [...] S NOT APPLICABLE FOR DIALYSIS PATIEN TS. Focused Factory Manager ID - ANETA LOperator ID - ANETA [id number] 10:34:21 Test Item Value Reference Range Interpretation Comments PHOSPHORUS (BEAKER) (test code = 2.4 mg/dL 2.3-4.7 604) Focused Factory Manager ID - ANETA [id number] 10:34:20 Test Item Value Reference Range Interpretation Comments MAGNESIUM (BEAKER) (test code = 1.6 mg/dL 1.6-2.6 627) Focused Factory Manager ID - ANETA [id number] 11:42:47 Test Item Value Reference Range Interpretation Comments PHOSPHORUS (BEAKER) 2.8 mg/dL 2.3-4.7 Specimen slightly (test code = 604) hemolyzed Focused Factory Manager ID - ANETA [id number] 05:42:53 Test Item Value Reference Range Interpretation Comments MAGNESIUM (BEAKER) 1.4 mg/dL 1.6-2.6 L Specimen slightly (test code = 627) hemolyzed Focused Factory Manager ID - ANETA LBASIC METABOLIC [id number] 05:42:53 Test Item Value Reference Range Interpretation [...] S NOT APPLICABLE FOR DIALYSIS PATIEN TS. Focused Factory Manager ID - PIAYA LSARS-COV2/RT-PCR ([facility])2021-08-02 00:15:55 Test Item Value Reference Range Interpretation Comments SARS-COV2/RT-PCR Negative Negative The SARS-Co V-2 target (test code = nucleic acids a re not 1740147) detected in thi s specimen. Negative result [...] revoked sooner. Fact Sheet for Healthcare Providers: https://www.CNG-One m/Documents/Xpert%20Xpress%20SARS%20CoV-2/Fact%20Sheets/302-3802%02NDBA-SKP-1%20 HEALTHCARE%20PROVIDERS%20FACT%20SHEET.pdf Fact Sheet for Healthcare Patients: https://www.Lumaqco/Documents/Xpert%20Xp ress%20SARS%20CoV-2/Fact%20Sheets/302-3801%69ZVIM-JSQ-7%20PATIENT%20FACT%20SHEET .pdfCT, [id number] 21:01:00Unlisted Reason for Exam - Click Yes and Enter Reason Below->NoWill this procedure require oral contrast?->No [facility] 1975 Sex: MFINAL REPORT EXAM: CT [...] Diffuse peripancreatic fatty atrophy. Signed: Magno Carvajal [facility] Verified Date/Time: 08/01/2021 21:01:39 REHENSIVE METABOLIC [id number] 20:31:25 Test Item Value Reference Range Interpretation [...] S NOT APPLICABLE FOR DIALYSIS PATIEN TS. Focused Factory Manager ID - DBOperator ID - NEIL [id number] 19:49:58 Test Item Value Reference Range Interpretation Comments LIPASE (BEAKER) (test code = 749) 4 U/L 8-78 L Focused Factory Manager ID - DBCBC W/PLT COUNT & AUTO [id number] 19:24:16 Test Item Value Reference Range Interpretation [...] code = 2801) RAD, ABDOMEN/KUB, 1 VIEW [id number] 11:19:00Reason for exam:->Abdominal pain distentionST[facility] : 1975 Sex: MFINAL REPORT RAD, ABDOMEN/KUB, [...] Other: No acute osseous abnormality. Signed: Tristen Reaganeport Verified Date/Time: 04/15/2021 11:19:14 Reading Location: [address] Ortho Consult Reading Room BASIC METABOLIC [id number] 05:54:00 Test Item Value Reference Range Interpretation [...] S NOT APPLICABLE FOR DIALYSIS PATIEN TS. Focused Factory Manager ID - CHAMP [id number] 05:53:00 Test Item Value Reference Range Interpretation Comments MAGNESIUM (BEAKER) (test code = 1.5 mg/dL 1.6-2.6 L 627) Focused Factory Manager ID - CHAMP [id number] 05:53:00 Test Item Value Reference Range Interpretation Comments PHOSPHORUS (BEAKER) (test code = 2.3 mg/dL 2.3-4.7 604) Focused Factory Manager ID - CHAMP WCBC W/PLT COUNT & AUTO [id number] 04:46:00 Test Item Value Reference Range Interpretation [...] 0-1 PERCENT (BEAKER) (test code = 2801) [id number] 05:08:00 Test Item Value Reference Range Interpretation Comments MAGNESIUM (BEAKER) (test code = 1.5 mg/dL 1.6-2.6 L 627) Focused Factory Manager ID - NEIL [id number] 05:08:00 Test Item Value Reference Range Interpretation Comments PHOSPHORUS (BEAKER) (test code = 2.1 mg/dL 2.3-4.7 L 604) Focused Factory Manager ID - NEIL MSARS-COV2/RT-PCR ([facility])2021-04-13 09:33:00 Test Item Value Reference Range Interpretation Comments SARS-COV2/RT-PCR (test Negative Not Detected, Negative, code = 0068621) See external report for linked test SARS-COV-2 PERFORMING LAB [facility] (test code = 0763730) Negative result for this test determines that [...] of the Act.Fact Sheet for Healthcare Prov iders:https://www.[employer]/sites/default/files/product/documents/Fact_Sheet_HC _Cxxwpilul_Xasg_CLCV-ZuS-0.pdfFact Sheet for Healthcare Patients:https://www.[employer]/sites/default/files/product/docume nts/Vpnf_Dkthv_Hnxbmxap_Mzzr_JVIM-WzJ-6.pdfPerforming Laboratory:[facility], [place] [address]SB, [id number] 00:22:00Unlisted Reason for Exam - Click Yes and Enter Reason Below->NoWill this procedure require oral contrast?->No [facility] 1975 Sex: MFINAL REPORT CT, ABDOMEN [...] Non obstructing bilateral nephrolithiasis. Signed: Sofiya Ding [facility] Verified Date/Time: 04/13/2021 00:22:00 URINALYSIS W/ REFLEX URINE [id number] 00:21:00 Test Item Value Reference Range Interpretation [...] = 518) SOURCE(BEAKER) (test code = 2795) Focused Factory Manager ID - [auto]Focused Factory Manager ID - techHIGH SENSITIVITY TROPONIN [id number] 22:05:00 Test Item Value Reference Range Interpretation Comments HIGH SENSITIVITY 5 pg/ml See_Comment [Automated message] TROPONIN I (test code = The system which 7251890) generated this result transmitted ref erence range: <=35. Th e reference range was not used to interpr et this result as normal/abnormal . Focused Factory Manager ID - DBThe LICENSED MENTAL HEALTH PROFESSIONAL STAT High Sensitivity Troponin-I results should be used in conjunctionwith other diagnostic information such as ECG, clinical observations and information, and patient symptoms to aid in the diagnosis of [place].[id number] 21:59:00 Test Item Value Reference Range Interpretation Comments LIPASE (BEAKER) (test code = 749) < U/L 8-78 L Focused Factory Manager ID - DBCOMPREHENSIVE METABOLIC [id number] 21:57:00 Test Item Value Reference Range Interpretation [...] S NOT APPLICABLE FOR DIALYSIS PATIEN TS. Focused Factory Manager ID - DBLACTIC ACID, [id number] 21:42:00 Test Item Value Reference Range Interpretation Comments LACTATE BLOOD VENOUS (2) (BEAKER) 0.59 mmol/L 0.50-2.20 (test code = 2872) Focused Factory Manager ID - DBBLOOD GAS, [id number] 21:31:00 Test Item Value Reference Range Interpretation [...] 1819) 21.0 CBC W/PLT COUNT & AUTO [id number] 21:31:00 Test Item Value Reference Range Interpretation [...] (BEAKER) (test code = 2801) CF RESPIRATORY [id number] 12:40:00 Test Item Value Reference Interpretation Comments [...] Vancomycin (test code S = 13) CULTURE ([facility]) PSEUDOMONAS A 2+ Pseudomo kelli (test code [...] = 994) seen RAD, ABDOMEN/KUB, 1 VIEW [id number] 07:28:00Reason for exam:->constipation [facility] 1975 Sex: MFINAL REPORT RAD, ABDOMEN/KUB, [...] Reagan Verified Date/Time: 02/24/2021 07:28:09 Reading Location: [facility] Radiology Reading Room RAD, ABDOMEN/KUB, 1 VIEW [id number] 10:44:00Reason for exam:->abdominal pain, [facility] 1975 Sex: MFINAL REPORT RAD, ABDOMEN/KUB, [...] MDReport Verified Date/Time: 02/21/2021 10:44:09 Reading Location: [facility] C013 Neuro Reading Room SARS-COV2/RT-PCR ([facility])2021-02-20 12:43:00 Test Item Value Reference Range Interpretation Comments SARS-COV2/RT-PCR (test Negative Not Detected, Negative, code = 2058203) See external report for linked test SARS-COV-2 PERFORMING LAB [facility] TERI (test code = 3321866) Negative result for this test determines that [...] of the Act.Fact Sheet for Healthcare Prov iders:https://www.MediCard/sites/default/files/product/documents/Fact_Sheet_HC _Wvqkhfkoh_Vykz_NUUA-FkY-6.pdfFact Sheet for Healthcare Patients:https://www.[employer].So[employer]oz/sites/default/files/product/docume nts/Cbhz_Jsqid_Wutmjbuv_Npba_ADOW-BpT-1.pdfPerforming Laboratory:[facility], [place] [address]GWRKN METABOLIC PANEL 2021-02-20 04:46:00 Test Item Value [...] S NOT APPLICABLE FOR DIALYSIS PATIEN TS. Focused Factory Manager ID - EDASICBC W/PLT COUNT & AUTO [id number] 04:23:00 Test Item Value Reference Range Interpretation [...] PERCENT (BEAKER) (test code = 2801) CT, [id number] 21:22:00Unlisted Reason for Exam - Click Yes and Enter Reason Below->YesUnlisted Reason for Exam->abd pain, bloating, constipation. hx of SBOWill this procedure require oral contrast?->No [facility] 1975 Sex: MFINAL REPORT EXAM: CT [...] Magno Carvajal MDReport Verified Date/Time: 02/19/2021 21:22:04 [id number] 18:22:00 Test Item Value Reference Range Interpretation Comments LIPASE (BEAKER) (test code = 749) < U/L 8-78 L Focused Factory Manager ID - DBBASIC METABOLIC [id number] 18:21:00 Test Item Value Reference Range Interpretation [...] S NOT APPLICABLE FOR DIALYSIS PATIEN TS. Focused Factory Manager ID - DBHEPATIC FUNCTION [id number] 18:21:00 Test Item Value Reference Range Interpretation [...] Specimen slightly (test code = 347) hemolyzed Focused Factory Manager ID - DBLACTIC ACID, [id number] 18:05:00 Test Item Value Reference Range Interpretation Comments LACTATE BLOOD VENOUS 1.04 mmol/L 0.50-2.20 Specime n slightly (2) (BEAKER) (test hemolyzed code = 2872) Focused Factory Manager ID - DBCBC W/PLT COUNT & AUTO [id number] 17:58:00 Test Item Value Reference Range Interpretation [...] code = 2801) RAD, ABDOMEN/KUB, 1 VIEW [id number] 17:30:00Reason for exam:->abd pain, bloated, hx of SBO [facility] 1975 Sex: MFINAL REPORT ONE VIEW [...] Verified Date/Time: 02/19/2021 17:30:23 FUNGUS CULTURE + [id number] 17:04:00 Test Item Value Reference Range Interpretation Comments CULTURE (BEAKER) A <1+ Padilla albicans (test code = 1095) FUNGUS SMEAR No fungi seen (BEAKER) (test code = 1406) CF RESPIRATORY [id number] 10:47:00 Test Item Value Reference Range Interpretation [...] 3+ Normal respiratory maria del carmen presentSPIN/CONCENTRATION [id number] 07:59:00 Test Item Value Reference Range Interpretation Comments CONCENTRATION CHARGED (BEAKER) (test Done code = 2657) RAD, CHEST, 2 [id number] 14:47:00Reason for Exam:->Cystic Fibrosis [facility] 1975 Sex: MFINAL REPORT EXAMINATION: RAD, [...] No acute thoracic abnormality. 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, Vitamin D deficiency [facility] 1975 Sex: MFINAL REPORT Exam: Bone [...] for bone mineral density as provided by aoc airspace control officer is 0.023 g/cm2 for lumbar spine and [...] MDReport Verified Date/Time: 01/06/2021 14:10:03 Reading Location: [facility] Reading Room [address] [place] [address] URINALYSIS W/ REFLEX URINE [id number] 11:26:00 Test Item Value Reference Range Interpretation [...] /HPF 520) SOURCE(BEAKER) (test code = 2795) Focused Factory Manager ID - [auto]Focused Factory Manager ID - techRAD, ABDOMEN/KUB, 1 VIEW [id number] 10:40:00Reason for exam:->constipation [facility] 1975 Sex: MFINAL REPORT RAD, ABDOMEN/KUB, 1 VIEW AP CLINICAL INDICATION: constipation COMPARISON: October 17, 2020 TECHNIQUE: Single, frontal radiograph of the abdomen. FINDINGS: The bowel gas pattern is nonspecific, but nonobstructive. No radiographic evidence of constipation. Colon is predominantly air-filled. The regional skeleton is intact. IMPRESSION: Nonspecific, nonobstructive bowel gas pattern. Signed: Esperanza Duque MDReport Verified Date/Time: 10/28/2020 10:40:07 Reading Location:[facility] Radiology Reading Room COMPREHENSIVE METABOLIC [id number] 12:47:00 Test Item Value Reference Range Interpretation [...] S NOT APPLICABLE FOR DIALYSIS PATIEN TS. Focused Factory Manager HODA SOUZA [id number] 07:34:00 Test Item Value Reference Range Interpretation Comments BLOOD UREA NITROGEN (BEAKER) (test 16 mg/dL 7-21 code = 354) Focused Factory Manager ID Onofre CORNELL [id number] 07:34:00 Test Item Value Reference Range Interpretation Comments CREATININE (BEAKER) 1.08 mg/dL 0.57-1.25 (test code = 358) EGFR (BEAKER) (test 90 mL/min/1.73 ESTIMA JOANN GFR IS code = 1092) sq m NOT ACCURATE CREATININE CLEARANCE IN PREDICTING GLOMERULAR FILTRATION RATE . ESTIMATED GFR I S NOT APPLICABLE FOR DIALYSIS PATIEN TS. Focused Factory Manager HODA CORNELL LPOCT-GLUCOSE [id number] 13:03:00 Test Item Value Reference Range Interpretation Comments POC-GLUCOSE METER 93 mg/dL 70-110 : TESTED A T [facility] 6720 (BEAKER) (test code = [place], 1538) [address]: Focused Factory Manager/Techni rian ID = [id number] for BJORN SANCHES [id number] 06:22:00 Test Item Value Reference Range Interpretation Comments BLOOD UREA NITROGEN (BEAKER) (test 20 mg/dL 7-21 code = 354) Focused Factory Manager ID - SANGITAHANS [id number] 06:22:00 Test Item Value Reference Range Interpretation Comments CREATININE (BEAKER) 1.12 mg/dL 0.57-1.25 (test code = 358) EGFR (BEAKER) (test 86 mL/min/1.73 ESTIMA JOANN GFR IS code = 1092) sq m NOT ACCURATE CREATININE CLEARANCE IN PREDICTING GLOMERULAR FILTRATION RATE . ESTIMATED GFR I S NOT APPLICABLE FOR DIALYSIS PATIEN TS. Focused Factory Manager ID - PIHANS LHEMOGLOBIN [id number] 21:14:00 Test Item Value Reference Range Interpretation Comments HEMOGLOBIN A1C (CLARKAKER) (test code = 5.6 % 4.3-6.1 368) FL, SMALL BOWEL [id number] 19:16:00Reason for exam:->Rule out ileus or small bowel stricture [facility] ROBLESReyna SALAS : 1975 Sex: MFINAL REPORT FL, SMALL BOWEL ONLY CLINICAL HISTORY: Rule out ileus or small bowel stricture COMPARISON: Same day CT abdomen and pelvis. TECHNIQUE: A small business consultant abdominal radiograph is acquired. The small bowel is evaluated with single contrast technique after oral ingestion of Gastrografin contrast using AP abdominal radiographs. Abdominal radiographs are acquired at 0, 20, 40, 60, and 90 minutes. FINDINGS: The small business consultant radiograph demonstrates multiple dilated air- filled loops of small bowel and a large amount of stool throughout the colon. Contrast passes without impediment into the colon with a normal transit time, contrast visualized at the hepatic flexure on the 90 minute radiograph. IMPRESSION: Normal small bowel transit time, less than 90 minutes; dilated gas- filled small bowelloops, unchanged from same day CT. Signed: Tristen Reagan Verified Date/Time: 10/25/2020 19:16:52 Reading Location: [facility] C013Y CT Body Reading Room CT, [id number] 09:52:00Reason for exam:->abd pain, constipation, hx of obstuctionWhat is the patient's sedation requirement?->No Sedation [facility] 1975 Sex: MFINAL REPORT CT, ABDOMEN [...] of infectious or inflammatory enteritis. Signed: Tristen Reaganbridgeport hospital Verified Date/Time: 10/25/2020 09:52:20 Reading Location: [facility] C013Y CT Body Reading Room [id number] 08:43:00 Test Item Value Reference Range Interpretation Comments LIPASE (BEAKER) (test code = 749) < U/L 8-78 L Focused Factory Manager ID - NEIL MTROPONIN [id number] 08:32:00 Test Item Value Reference Range Interpretation [...] failure, acidosis, acute neurological disease, and persistent tachyarrhythmia.Focused Factory Manager ID - NEIL MBASIC METABOLIC [id number] 08:24:00 Test Item Value Reference Range Interpretation [...] S NOT APPLICABLE FOR DIALYSIS PATIEN TS. Focused Factory Manager ID - NEIL MCBC W/PLT COUNT & AUTO [id number] 08:03:00 Test Item Value Reference Range Interpretation [...] (BEAKER) (test code = 2801) BASIC METABOLIC [id number] 07:43:00 Test Item Value Reference Range Interpretation [...] S NOT APPLICABLE FOR DIALYSIS PATIEN TS. Focused Factory Manager ID - [id number] 07:43:00 Test Item Value Reference Range Interpretation Comments MAGNESIUM (BEAKER) (test code = 1.7 mg/dL 1.6-2.6 627) Focused Factory Manager ID - DBHEPATIC FUNCTION [id number] 07:43:00 Test Item Value Reference Range Interpretation [...] (test code = 13 U/L 6-55 347) Focused Factory Manager ID - DBCBC W/PLT COUNT & AUTO [id number] 06:56:00 Test Item Value Reference Range Interpretation [...] PERCENT (BEAKER) (test code = 2801) SARS-COV2/INFLUENZA/RSV [id number] 02:52:00 Test Item Value Reference Range Interpretation Comments SARS-COV2/RT-PCR Negative Negative AA This is a c orrected (test code = result. Previou s result [id number]) was Positive on 2020 at 0123 ACTIVE DIRECTORY ARCHITECT INFLUENZA A RT-PCR Negative Negative (test code = 6897783) INFLUENZA B RT-PCR Negative Negative (test code = 4213241) RSV RT-PCR (test Negative Negative Performance of the Xpert code = 6596354) Xpress SARS- CoV-2/Flu/RSV test has only b een established in nasopharyngeal swab specimens. Use of the Xpert Xpress SARS-CoV-2/Flu/ RSV test with other spec imen types has not been as sessed and performance characteristics are unknown. As wit h any molecular test, mutations within the targ eted genetic regions identified by lisa saunders Xpert Xpress SARS-CoV -2/Flu/RSV test could affe [...] patien t management deci sions. Results from th e Xpert Xpress SARS-CoV -2/Flu/RSV test should [...] sooner.Fact She et for Healthcare Prov iders: https://www.[employer].com/D ocuments/Xpert% 20Xpress%2 8JAMN-RbL-9-Flu -RSV/302-4 508%20Rev.%20B% 20HCP%20Fa ct%20Sheet.pdfF act Sheet for Healthcare Patients: https://www.cep heid.com/D ocuments/Xpert% 20Xpress%2 4LEXJ-VdO-1-Flu -RSV/302-4 507%20Rev.%20B% 20Patient% 20Fact%20Sheet. pdf [id number] 22:49:00 Test Item Value Reference Range Interpretation Comments LIPASE (BEAKER) (test code = 749) < U/L 8-78 L Focused Factory Manager ID - DBCOMPREHENSIVE METABOLIC [id number] 22:49:00 Test Item Value Reference Range Interpretation [...] S NOT APPLICABLE FOR DIALYSIS PATIEN TS. Focused Factory Manager ID - DBCT, [id number] 22:32:00Reason for exam:->ABDOMINAL PAINWhat is the patient's sedation requirement?->No Sedation [facility] 1975 Sex: MFINAL REPORT EXAM: CT [...] code = 2801) URINALYSIS W/ REFLEX URINE [id number] 21:51:00 Test Item Value Reference Range Interpretation [...] = 518) SOURCE(BEAKER) (test code = 2795) Focused Factory Manager ID - [auto]Focused Factory Manager ID - [id number] 05:11:00 Test Item Value Reference Range Interpretation Comments APPEARANCE (test code = Clear Clear 6244594316) COLOR (test code = Yellow Yellow 2926751670) PH (test code = 4.8-8.0 0490292517) SP GRAVITY (test code = 1.003-1.030 3242977388) GLU U QUAL (test code = Normal Normal 1385054573) BLOOD (test code = Negative Negative 6082504649) KETONES (test code = Negative Negative 0354031348) PROTEIN (test code = Negative Negative 2887-8) UROBILIN (test code = Normal Normal 7227872342) BILIRUBIN (test code = Negative Negative 7099342848) NITRITE (test code = Negative Negative 3377544741) LEUK TERRI (test code = Negative Negative 1765678318) RBC/HPF (test code = See_Comment [Autom ated message] 8626308599) The system [employer] generated this result transmitted ref erence range: 0 - 3 HP F. The reference range was not used to int erpret this result as normal/abnormal . WBC/HPF (test code = See_Comment [Autom ated message] 3001445633) The system [employer] generated this result transmitted ref erence range: 0 - 5 HP F. The reference range was not used to int erpret this result as normal/abnormal . BACTERIA (test code = Few Negative A 8994003386) SQ EPITH (test code = <1 HPF 5657744653) Lab Interpretation (test Abnormal code = 51346-0) [facility] [id number] 03:54:00 Test Item Value Reference Range Interpretation Comments TROPONIN I (test <0.012 See_Comment [Automated code = 3064206337) message] The system which generated this result [...] ? Lab Interpretation Normal (test code = 06930-0) [facility] [id number] 03:44:00 Test Item Value Reference Range Interpretation Comments LIPASE (test code = 5662674286) <10 0-220 Lab Interpretation (test code = Normal 30096-5) [facility] (NA, K, CL, CO2, GLUCOSE, BUN, CREATININE, CA)2020-10-19 03:43:00 Test Item Value Reference Range Interpretation Comments NA (test code = 140 mmol/L 135-145 3929126958) K (test code = 4.0 mmol/L 3.5-5 7341595396) CL (test code = 100 mmol/L 98-108 0555615108) CO2 TOTAL (test code = 33 mmol/L 23-31 H 2493816264) AGAP (test code = 2-16 3031154322) BUN (test code = 5 mg/dL 7-23 L 1227379039) GLUCOSE (test code = 109 mg/dL 70-110 6259553354) CREATININE (test code = 1.17 mg/dL 0.6-1.25 7247832666) CALCIUM (test code = 9.5 mg/dL 8.6-10.6 7220461808) eGFR Calculation mL/min/1.73m2 (Non-) (test code = 7577368786) eGFR Calculation mL/min/1.73m2 () (test code = 4478819109) HSANA (test code = SHANA) Association of Glomerular [...] tests). Lab Interpretation Abnormal (test code = 86062-4) [facility] Function [facility] (ALB, T.PRO, BILI T, BU/BC, ALT, AST, ALK PHOS)2020-10-19 03:43:00 Test Item Value Reference Range Interpretation Comments TOTAL BILI (test code = 0630506533) 1.6 mg/dL 0.1-1.1 H BILI UNCON (test code = 6808023056) 1.6 mg/dL 0.1-1.1 H BILI CONJ (test code = 6665257849) 0.0 mg/dL 0-0.3 T PROTEIN (test code = 8724552702) 7.2 g/dL 6.3-8.2 ALBUMIN (test code = 7512321678) 4.3 g/dL 3.5-5 ALK PHOS (test code = 9243788848) 64 U/L 34-122 ALTv (test code = 1742-6) 17 U/L 5-50 AST(SGOT) (test code = 8725588711) 27 U/L 13-40 Lab Interpretation (test code = Abnormal 79775-2) [facility]OVID-[facility] (ID NOW RAPID TESTING)2020-10-19 03:42:00 Test Item Value Reference Range Interpretation Comments SARS-CoV-2 Rapid ID NOW Not Detected Not Detected (test code = 07024-2) SHANA (test code = SHANA) ID NOW COVID-19 Assay is an isothermal nucleic acid amplification test intended for the qualitative detection of nucleic acid from SARS-CoV-2 viral RNA in nasopharyngeal (BAND TIER) specimens. It is used under Emergency Use [...] indicated. Lab Interpretation Normal (test code = 33986-6) [facility] with [id number] 03:28:00 Test Item Value Reference Range Interpretation Comments WBC (test code = See_Comment [Automated 4103-2) message] The sy stem which generated this result transmitted reference range : 4.20 - 10.70 10*3/?L. The reference range was not used to interpret this result as normal/abnormal . RBC (test code = See_Comment L [Automated 512-8) message] The sy stem which generated this [...] RDW-SD (test code = 44.1 fL 38.5-51.6 83488-1) RDW-CV (test code = 12.9 % 12.1-15.4 788-0) PLT (test code = See_Comment [Automated 777-3) message] The sy stem which generated this result transmitted reference range : 150 - 328 10*3/ ?L. The reference r taurus was not used to interpret this result as normal/abnormal . MPV (test code = 11.8 fL 9.8-13 34226-1) NRBC/100 WBC (test See_Comment [Automat ed code = 7542810867) message] The system which generated this result transmitted reference range : 0.0 - 10.0 /100 WBCs. The refer ence range was not u sed to interpret th is result as normal/abnormal . NRBC x10^3 (test code <0.01 See_Comment [Auto mated = 9303830310) message] The s ystem which generated this result transmitted reference range : 10*3/?L. The reference range was not used to interpret this result as normal/abnormal . GRAN MAT (NEUT) % 54.1 % (test code = 770-8) IMM GRAN % (test code 0.20 % = 6170559654) LYMPH % (test code = 30.0 % 736-9) MONO % (test code = 11.6 % 5905-5) EOS % (test code = 3.6 % 713-8) BASO % (test code = 0.5 % 706-2) GRAN MAT x10^3(ANC) 3.28 10*3/uL 1.99-6.95 (test code = 3431796083) IMM GRAN x10^3 (test <0.03 0-0.06 code = 8640804784) LYMPH x10^3 (test code 1.82 10*3/uL 1.09-3.23 = 731-0) MONO x10^3 (test code 0.70 10*3/uL 0.36-1.02 = 742-7) EOS x10^3 (test code = 0.22 10*3/uL 0.06-0.53 711-2) BASO x10^3 (test code 0.03 10*3/uL 0.01-0.09 = 704-7) Lab Interpretation Abnormal (test code = 35470-0) [facility] METABOLIC [id number] 05:05:00 Test Item Value Reference Range Interpretation [...] S NOT APPLICABLE FOR DIALYSIS PATIEN TS. Focused Factory Manager ID - [id number] 05:05:00 Test Item Value Reference Range Interpretation Comments MAGNESIUM (BEAKER) (test code = 1.6 mg/dL 1.6-2.6 627) Focused Factory Manager ID - ALY, ABDOMEN/KUB, 1 VIEW [id number] 15:41:00Reason for exam:->abdominal pain [facility] : 1975 Sex: MFINAL REPORT RAD, ABDOMEN/KUB, 1 VIEW AP CLINICAL INDICATION: abdominal pain COMPARISON: June 08, 2020 TECHNIQUE: Single, frontal radiograph of the abdomen. IMPRESSION: The bowel gas pattern dilated loops of small and large bowel. Appearance favors ileus. No visible pneumatosis. The regional skeleton is intact. Signed: JR Burk Robert MDReport Verified Date/Time: 10/17/2020 15:41:19 Reading Location: [facility] Radiology Reading Room BASIC METABOLIC PANEL 2020-10-17 [...] S NOT APPLICABLE FOR DIALYSIS PATIEN TS. Focused Factory Manager ID - PIAYA [id number] 07:22:00 Test Item Value Reference Range Interpretation Comments MAGNESIUM (BEAKER) (test code = 2.0 mg/dL 1.6-2.6 627) Focused Factory Manager ID - PIAYA LCBC W/PLT COUNT & AUTO [id number] 06:22:00 Test Item Value Reference Range Interpretation [...] (BEAKER) (test code = 2801) BASIC METABOLIC [id number] 05:42:00 Test Item Value Reference Range Interpretation [...] S NOT APPLICABLE FOR DIALYSIS PATIEN TS. Focused Factory Manager ID - NEIL [id number] 05:42:00 Test Item Value Reference Range Interpretation Comments MAGNESIUM (BEAKER) (test code = 1.4 mg/dL 1.6-2.6 L 627) Focused Factory Manager ID - NEIL MCBC W/PLT COUNT & AUTO [id number] 04:47:00 Test Item Value Reference Range Interpretation [...] PERCENT (BEAKER) (test code = 2801) SARS-COV2/RT-PCR ([facility])2020-10-15 13:08:00 Test Item Value Reference Range Interpretation Comments SARS-COV2/RT-PCR (test Negative Not Detected, Negative, code = 6881968) See external report for linked test SARS-COV-2 PERFORMING LAB [facility] (test code = 9704317) Negative result for this test determines that [...] of the Act.Fact Sheet for Healthcare Prov iders:https://www.[employer]/sites/default/files/product/documents/Fact_Sheet_HC _Oafwmzkod_Foxp_DIMV-KrS-2.pdfFact Sheet for Healthcare Patients:https://www.[employer]/sites/default/files/product/docume nts/Zqji_Gqikw_Xtfdjrrw_Dduw_IDXP-KvX-1.pdfPerforming Laboratory:[facility], [place] [address]IJ, [id number] 03:01:00Reason for exam:->ABDOMINAL PAINWhat is the patient's sedation requirement?->[facility] : 1975 Sex: MFINAL REPORT CT, ABDOMEN [...] bilateral nephrolithiasis.Fatty atrophy pancreas. Signed: Sofiya Ding [facility] Verified Date/Time: 10/15/2020 03:01:22 [id number] 02:35:00 Test Item Value Reference Range Interpretation Comments LIPASE (BEAKER) (test code = 749) < U/L 8-78 L Focused Factory Manager ID - ANETA LOperator ID - PIAYA LOperator ID - ADMINCOMPREHENSIVE METABOLIC [id number] 01:16:00 Test Item Value Reference Range Interpretation [...] S NOT APPLICABLE FOR DIALYSIS PATIEN TS. Focused Factory Manager ID - ANETA LCBC W/PLT COUNT & AUTO [id number] 00:41:00 Test Item Value Reference Range Interpretation [...] (BEAKER) (test code = 2801) BASIC METABOLIC [id number] 07:08:00 Test Item Value Reference Range Interpretation [...] S NOT APPLICABLE FOR DIALYSIS PATIEN TS. Focused Factory Manager ID - NTPCBC W/PLT COUNT & AUTO [id number] 06:29:00 Test Item Value Reference Range Interpretation [...] (BEAKER) (test code = 2801) BASIC METABOLIC [id number] 06:39:00 Test Item Value Reference Range Interpretation [...] S NOT APPLICABLE FOR DIALYSIS PATIEN TS. Focused Factory Manager ID - EDASISpecimen slightly ictericCBC W/PLT COUNT & AUTO [id number] 06:08:00 Test Item Value Reference Range Interpretation [...] (BEAKER) (test code = 2801) BASIC METABOLIC [id number] 06:45:00 Test Item Value Reference Range Interpretation [...] S NOT APPLICABLE FOR DIALYSIS PATIEN TS. Focused Factory Manager ID - PIAYA LSpecimen slightly ictericCBC W/PLT COUNT & AUTO [id number] 06:28:00 Test Item Value Reference Range Interpretation [...] (BEAKER) (test code = 2801) LACTIC ACID, [id number] 06:25:00 Test Item Value Reference Range Interpretation Comments LACTATE BLOOD VENOUS (2) (BEAKER) 0.80 mmol/L 0.50-2.20 (test code = 2872) Focused Factory Manager HODA CORNELL LSpecimen slightly ictericLACTIC ACID, [id number] 00:07:00 Test Item Value Reference Range Interpretation Comments LACTATE BLOOD VENOUS (2) (BEAKER) 0.77 mmol/L 0.50-2.20 (test code = 2872) Focused Factory Manager HODA CORNELL LLACTIC ACID, [id number] 18:08:00 Test Item Value Reference Range Interpretation Comments LACTATE BLOOD VENOUS (2) (BEAKER) 1.35 mmol/L 0.50-2.20 (test code = 2872) Focused Factory Manager ID - DBFL, UGI, WITH SMALL [id number] 11:59:00Upper GI with small bowel follow throughReason [...] Murrell Verified Date/Time: 06/08/2020 11:59:48 Reading Location: [address] Body Reading Room RAD, ABDOMEN/KUB, 1 VIEW [id number] 09:30:00Reason for exam:->NGT, SBOFINAL REPORT TECHNIQUE: Single [...] in the right abdomen. Signed: Emmanuel Murrell MDRcristal Verified Date/Time: 06/08/2020 09:30:43 Reading Location: [facility] B1 C013Y CT Body Reading Room PROTHROMBIN [id number] 04:30:00 Test Item Value Reference Range Interpretation [...] is 2.5-3.5 for patients wiht mechanical heart valves.[id number] 04:09:00 Test Item Value Reference Range Interpretation Comments MAGNESIUM (BEAKER) (test code = 1.6 mg/dL 1.6-2.6 627) Focused Factory Manager ID - ANETA LBASIC METABOLIC [id number] 04:09:00 Test Item Value Reference Range Interpretation [...] S NOT APPLICABLE FOR DIALYSIS PATIEN TS. Focused Factory Manager ID - PIAYA LURINALYSIS W/ REFLEX URINE [id number] 03:52:00 Test Item Value Reference Range Interpretation [...] /LPF 514) SOURCE(BEAKER) (test code = 2795) Focused Factory Manager ID - [auto]Focused Factory Manager ID - techLACTIC ACID, [id number] 03:31:00 Test Item Value Reference Range Interpretation Comments LACTATE BLOOD VENOUS (2) (BEAKER) 0.52 mmol/L 0.50-2.20 (test code = 2872) Focused Factory Manager ID - ANETA LCT, [id number] 00:01:00Unlisted Reason for Exam - Click Yes [...] approximately 11:52 PM 06/07/2020. Signed: Magno Carvajal [facility] Verified Date/Time: 06/08/2020 00:01:48 SARS-COV2/RT-PCR ([facility]) 2020-06-07 22:51:00 Test Item Value Reference Range Interpretation Comments SARS-COV2/RT-PCR (test code Negative Not Detected, Negative, = 6577876) See external report for linked test SARS-COV-2 PERFORMING LAB [facility] (test code = 0417839) Negative results do not preclude SARS-CoV-2 infection [...] of the Act.Fact Sheet for Healthcare Pro viders:https://www.[employer]/Documents/Xpert%20Xpress%20SARS%20CoV-2/Fact%20Sh eets/3023802%36UPCD-KMN-4%20HEALTHCARE%20PROVIDERS%20FACT%20SHEET.pdfFact Sheet for Healthcare Patients:https://www.web care [employer]/Documents/Xpert%20Xpress%20SARS%20CoV-2/Fact%20Sheets/3023801%20SARS-COV -2%20PATIENT%20FACT%20SHEET.pdfPerforming Laboratory:[facility], [place] [id number] 20:56:00 Test Item Value Reference Range Interpretation Comments LIPASE (BEAKER) (test code = 749) < U/L 8-78 L Focused Factory Manager ID - DBBASIC METABOLIC [id number] 20:52:00 Test Item Value Reference Range Interpretation [...] S NOT APPLICABLE FOR DIALYSIS PATIEN TS. Focused Factory Manager ID - DBHEPATIC FUNCTION [id number] 20:52:00 Test Item Value Reference Range Interpretation [...] Specimen markedly (test code = 347) hemolyzed Focused Factory Manager ID - DBCBC W/PLT COUNT & AUTO [id number] 20:33:00 Test Item Value Reference Range Interpretation [...] code = 2801) RAD, ABDOMEN/KUB, 1 VIEW [id number] 20:11:00Reason for exam:->ABDOMINAL PAINReason for exam:->history of [...] Date/Time: 06/07/2020 20:11:37 RAD, ABDOMEN/KUB, 1 VIEW [id number] 15:31:00Reason for exam:->assess stool burdenFINAL REPORT CLINICAL [...] on the supine view. Signed: Murray Longo Verified Date/Time: 05/09/2020 15:31:54 Reading Location: [facility] Radiology Reading Room CBC W/PLT COUNT & AUTO [id number] 06:57:00 Test Item Value Reference Range Interpretation [...] 0-1 PERCENT (BEAKER) (test code = 2801) [id number] 06:46:00 Test Item Value Reference Range Interpretation Comments MAGNESIUM (BEAKER) 1.5 mg/dL 1.6-2.6 L Specimen slightly (test code = 627) hemolyzed Focused Factory Manager ID - [id number] 06:46:00 Test Item Value Reference Range Interpretation Comments PHOSPHORUS (BEAKER) 2.9 mg/dL 2.3-4.7 Specimen slightly (test code = 604) hemolyzed Focused Factory Manager ID - EDASIBASIC METABOLIC [id number] 06:46:00 Test Item Value Reference Range Interpretation [...] S NOT APPLICABLE FOR DIALYSIS PATIEN TS. Focused Factory Manager ID - EDASIHEPATIC FUNCTION [id number] 06:46:00 Test Item Value Reference Range Interpretation [...] Specimen slightly (test code = 347) hemolyzed Focused Factory Manager ID - [id number] 10:38:00 Test Item Value Reference Range Interpretation Comments MAGNESIUM (BEAKER) 1.9 mg/dL 1.6-2.6 Specimen slightly (test code = 627) hemolyzed Focused Factory Manager ID - [id number] 10:38:00 Test Item Value Reference Range Interpretation Comments PHOSPHORUS (BEAKER) 2.5 mg/dL 2.3-4.7 Specimen slightly (test code = 604) hemolyzed Focused Factory Manager ID - NTPBASIC METABOLIC [id number] 10:38:00 Test Item Value Reference Range Interpretation [...] S NOT APPLICABLE FOR DIALYSIS PATIEN TS. Focused Factory Manager ID - NTPHEPATIC FUNCTION [id number] 10:38:00 Test Item Value Reference Range Interpretation [...] Specimen slightly (test code = 347) hemolyzed Focused Factory Manager ID - NTPCBC W/PLT COUNT & AUTO [id number] 10:33:00 Test Item Value Reference Range Interpretation [...] PERCENT (BEAKER) (test code = 2801) SARS-COV2/RT-PCR ([facility])2020-05-07 11:54:00 Test Item Value Reference Range Interpretation Comments SARS-COV2/RT-PCR (test Negative Not Detected, Negative, code = 1502814) See external report for linked test SARS-COV-2 PERFORMING LAB [facility] (test code = 9200151) Negative result for this test determines that [...] of the Act.Fact Sheet for Healthcare Prov iders:https://www.[employer]/sites/default/files/product/documents/Fact_Sheet_HC _Asudglnja_Bkhn_AVDD-GkS-6.pdfFact Sheet for Healthcare Patients:https://www.[employer]/sites/default/files/product/docume nts/Bqal_Hlsau_Zoozelhb_Jkob_HYID-QuP-0.pdfPerforming Laboratory:[place] [address], [place] [id number] 10:19:00 Test Item Value Reference Range Interpretation Comments MAGNESIUM (BEAKER) (test code = 1.3 mg/dL 1.6-2.6 L 627) Focused Factory Manager ID - PIAYA LBASIC METABOLIC [id number] 10:19:00 Test Item Value Reference Range Interpretation [...] S NOT APPLICABLE FOR DIALYSIS PATIEN TS. Focused Factory Manager ID - PIHANS LHEPATIC FUNCTION [id number] 10:19:00 Test Item Value Reference Range Interpretation [...] (test code = 13 U/L 6-55 347) Focused Factory Manager ID - PIHANS LCBC W/PLT COUNT & AUTO [id number] 10:00:00 Test Item Value Reference Range Interpretation [...] PERCENT (BEAKER) (test code = 2801) CT, [id number] 02:02:00FINAL REPORT TECHNIQUE: CT of the abdomen [...] CARMELO MOSLEY MD on 05/07/2020 02:02 AMURINALYSIS [id number] 01:08:00 Test Item Value Reference Range Interpretation Comments RBC UA (BEAKER) (test code = 519) < /HPF WBC UA (BEAKER) (test code = 520) 3 /HPF BACTERIA (BEAKER) (test code = Rare 517) MUCUS (BEAKER) (test code = 1574) Occasional SQUAMOUS EPITHELIAL (BEAKER) (test < /HPF code = 516) HYALINE CASTS (BEAKER) (test code 1 /LPF = 514) Focused Factory Manager ID - techU/S, ABDOMINAL, [id number] 00:44:00Abdomen limited area? Add comment if clarification [...] Date/Time: 05/07/2020 00:44:38 URINALYSIS WITH MICROSCOPIC IF [id number] 00:38:00 Test Item Value Reference Range Interpretation [...] = 463) SOURCE(BEAKER) (test code = 2795) Focused Factory Manager ID - [auto]Focused Factory Manager ID - [id number] 00:23:00 Test Item Value Reference Range Interpretation Comments LIPASE (BEAKER) (test code = 749) < U/L 8-78 L Focused Factory Manager ID - PIAYA LBASIC METABOLIC [id number] 00:20:00 Test Item Value Reference Range Interpretation [...] S NOT APPLICABLE FOR DIALYSIS PATIEN TS. Focused Factory Manager HODA CORNELL LHEPATIC FUNCTION [id number] 00:20:00 Test Item Value Reference Range Interpretation [...] (test code = 20 U/L 6-55 347) Focused Factory Manager HODA CORNELL LLACTIC ACID, [id number] 23:58:00 Test Item Value Reference Range Interpretation Comments LACTATE BLOOD VENOUS 1.45 mmol/L 0.50-2.20 Specime n slightly (2) (BEAKER) (test hemolyzed code = 8108) Focused Factory Manager HODA CORNELL LCBC W/PLT COUNT & AUTO [id number] 23:46:00 Test Item Value Reference Range Interpretation [...] (BEAKER) (test code = 2801) CF RESPIRATORY [id number] 16:25:00 Test Item Value Reference Range Interpretation [...] 3+ Normal respiratory maria del carmen presentCT, [id number] 10:37:00FINAL REPORT ABDOMINAL AND PELVIS CT DATED [...] left h ydronephrosis and hydroureter. Signed: Carmelo Tierneyeport Verified Date/Time: 04/17/2020 10:37:08 Reading Location: [facility] C013Y CT Body Reading Room URINALYSIS W/ REFLEX URINE [id number] 09:19:00 Test Item Value Reference Range Interpretation [...] /LPF 514) SOURCE(BEAKER) (test code = 2795) Focused Factory Manager ID - [auto]Focused Factory Manager ID - [id number] 09:14:00 Test Item Value Reference Range Interpretation Comments LIPASE (BEAKER) (test code = 749) < U/L 8-78 L Focused Factory Manager ID - GALAPBASIC METABOLIC [id number] 08:36:00 Test Item Value Reference Range Interpretation [...] S NOT APPLICABLE FOR DIALYSIS PATIEN TS. Focused Factory Manager ID - GALAPHEPATIC FUNCTION [id number] 08:36:00 Test Item Value Reference Range Interpretation [...] (test code = 32 U/L 6-55 347) Focused Factory Manager ID - GALAPCBC W/PLT COUNT & AUTO [id number] 08:26:00 Test Item Value Reference Range Interpretation [...] (BEAKER) (test code = 2801) CF RESPIRATORY [id number] 12:01:00 Test Item Value Reference Interpretation Comments [...] = 47) Resistant <0 or >40 CULTURE (XenithAKER) PSEUDOMONAS A <1+ Escheri alex (test code [...] 4+ Normal respiratory maria del carmen presentPOCT-GLUCOSE [id number] 10:24:00 Test Item Value Reference Range Interpretation Comments POC-GLUCOSE METER 101 mg/dL 70-110 : [facility] ([employer]) (test code = JUSTINE [place], 1538) [address]: Focused Factory Manager/Techni rian ID = [id number] for [place] LILA GORDON [id number] 05:45:00 Test Item Value Reference Range Interpretation Comments MAGNESIUM (BEAKER) (test code = 1.4 mg/dL 1.6-2.6 L 627) Focused Factory Manager ID - LABASIC METABOLIC [id number] 05:45:00 Test Item Value Reference Range Interpretation [...] S NOT APPLICABLE FOR DIALYSIS PATIEN TS. Focused Factory Manager ID - LABASIC METABOLIC [id number] 13:57:00 Test Item Value Reference Range Interpretation [...] S NOT APPLICABLE FOR DIALYSIS PATIEN TS. Focused Factory Manager ID - NEIL MRAD, ABDOMEN/KUB, 1 VIEW [id number] 09:29:00Reason for exam:->LIONEL, eval stool burdenFINAL REPORT [...] MDReport Verified Date/Time: 10/22/2019 09:29:36 Reading Location: [facility] Radiology Reading Room [id number] 07:28:00 Test Item Value Reference Range Interpretation Comments MAGNESIUM (BEAKER) 1.4 mg/dL 1.6-2.6 L Specimen moderately (test code = 627) hemolyzed Focused Factory Manager ID - [id number] 03:32:00 Test Item Value Reference Range Interpretation Comments MAGNESIUM (BEAKER) (test code = 1.4 mg/dL 1.6-2.6 L 627) Focused Factory Manager ID - NEIL MBASIC METABOLIC [id number] 03:32:00 Test Item Value Reference Range Interpretation [...] S NOT APPLICABLE FOR DIALYSIS PATIEN TS. Focused Factory Manager ID - NEIL [id number] 05:11:00 Test Item Value Reference Range Interpretation Comments MAGNESIUM (BEAKER) (test code = 1.7 mg/dL 1.6-2.6 627) Focused Factory Manager ID - NEIL MBASIC METABOLIC [id number] 05:11:00 Test Item Value Reference Range Interpretation [...] S NOT APPLICABLE FOR DIALYSIS PATIEN TS. Focused Factory Manager ID - NEIL MRAD, ABDOMEN/KUB, 1 VIEW [id number] 05:46:00Reason for exam:->ABDOMINAL PAINFINAL REPORT TECHNIQUE: Single [...] MDReport Verified Date/Time: 10/19/2019 05:46:42 BASIC METABOLIC [id number] 05:42:00 Test Item Value Reference Range Interpretation [...] S NOT APPLICABLE FOR DIALYSIS PATIEN TS. Focused Factory Manager ID - NEIL [id number] 05:29:00 Test Item Value Reference Range Interpretation Comments PHOSPHORUS (BEAKER) (test code = 2.4 mg/dL 2.3-4.7 604) Focused Factory Manager ID - NEIL [id number] 05:29:00 Test Item Value Reference Range Interpretation Comments MAGNESIUM (BEAKER) (test code = 1.5 mg/dL 1.6-2.6 L 627) Focused Factory Manager ID - NEIL MCT, [id number] 04:01:00Reason for exam:->distal intestinal obstructionWhat is the [...] MDReport Verified Date/Time: 10/19/2019 04:01:15 BASIC METABOLIC [id number] 02:51:00 Test Item Value Reference Range Interpretation [...] S NOT APPLICABLE FOR DIALYSIS PATIEN TS. Focused Factory Manager ID - NEIL MCBC W/PLT COUNT & AUTO [id number] 01:44:00 Test Item Value Reference Range Interpretation [...] (test code = 2801) AFB CULTURE + [id number] 12:10:00 Test Item Value Reference Range Interpretation Comments CULTURE (BEAKER) (test No acid-fast bacilli code = 1095) isolated in 42 days AFB SMEAR (BEAKER) No acid fast bacilli (test code = 994) seen FUNGUS CULTURE + [id number] 18:48:00 Test Item Value Reference Range Interpretation Comments CULTURE (BEAKER) A <1+ Padilla (test code = 1095) parapsilo sis FUNGUS SMEAR No fungi seen (BEAKER) (test code = 1406) CF RESPIRATORY [id number] 08:04:00 Test Item Value Reference Range Interpretation [...] 3+ Normal respiratory maria del carmen presentSPIN/CONCENTRATION [id number] 01:05:00 Test Item Value Reference Range Interpretation Comments CONCENTRATION CHARGED (BEAKER) (test Done code = 2657) CREATININE, RANDOM [id number] 01:17:00 Test Item Value Reference Range Interpretation Comments CREATININE URINE (BEAKER) (test 105.9 mg/dL code = 375) Reference Range: No NormalsSODIUM, RANDOM [id number] 01:17:00 Test Item Value Reference Range Interpretation Comments SODIUM URINE (BEAKER) (test code = 235 meq/L 243) Reference Range: No NormalsBASIC METABOLIC [id number] 14:52:00 Test Item Value Reference Range Interpretation [...] PATIEN TS. CBC W/PLT COUNT & AUTO [id number] 06:59:00 Test Item Value Reference Range Interpretation [...] (BEAKER) (test code = 2801) BASIC METABOLIC [id number] 07:05:00 Test Item Value Reference Range Interpretation [...] PATIEN TS. CBC W/PLT COUNT & AUTO [id number] 06:46:00 Test Item Value Reference Range Interpretation [...] PERCENT (BEAKER) (test code = 2801) TROPONIN [id number] 19:25:00 Test Item Value Reference Range Interpretation [...] acute neurological disease, and persistent tachyarrhythmia.BASIC METABOLIC [id number] 07:10:00 Test Item Value Reference Range Interpretation [...] PATIEN TS. CBC W/PLT COUNT & AUTO [id number] 06:55:00 Test Item Value Reference Range Interpretation [...] (BEAKER) (test code = 2801) BASIC METABOLIC [id number] 03:46:00 Test Item Value Reference Range Interpretation [...] PATIEN TS. CBC W/PLT COUNT & AUTO [id number] 03:42:00 Test Item Value Reference Range Interpretation [...] PERCENT (BEAKER) (test code = 2801) POCT-GLUCOSE [id number] 06:12:00 Test Item Value Reference Range Interpretation Comments POC-GLUCOSE METER 81 mg/dL 70-110 TESTED AT [facility] [address] (BEAKER) (test code = [place] [address] 1538) BASIC METABOLIC [id number] 05:38:00 Test Item Value Reference Range Interpretation [...] PATIEN TS. CBC W/PLT COUNT & AUTO [id number] 04:55:00 Test Item Value Reference Range Interpretation [...] PERCENT (BEAKER) (test code = 2801) POCT-GLUCOSE [id number] 00:40:00 Test Item Value Reference Range Interpretation Comments POC-GLUCOSE METER 106 mg/dL 70-110 TESTED AT [facility] [address] ([facility]) (test code = JUSTINE Ha [facility] 1538) [address] POCT-GLUCOSE [id number] 18:46:00 Test Item Value Reference Range Interpretation Comments POC-GLUCOSE METER 102 mg/dL 70-110 TESTED AT [facility] [address] ([facility]) (test code = JUSTINE Ha [facility] 1538) [address] [place], SMALL BOWEL [id number] 18:00:00Reason for exam:->resolution of ileus FINAL REPORT [...] Waters Verified Date/Time: 06/04/2019 18:00:59 Reading Location: [address] Ortho Consult Reading Room POCT-GLUCOSE [id number] 12:42:00 Test Item Value Reference Range Interpretation Comments POC-GLUCOSE METER 88 mg/dL 70-110 TESTED AT [place] [address] ([facility]) (test code = JUSTINE Ha [facility] [address] 1538) RAD, ABDOMEN/KUB, 1 VIEW [id number] 10:33:00Reason for exam:->distentioin FINAL REPORT RAD, ABDOMEN/KUB, [...] Location: [facility] Reading Room POCT-GLUCOSE [id number] 07:13:00 Test Item Value Reference Range Interpretation Comments POC-GLUCOSE METER 76 mg/dL 70-110 TESTED AT [facility] [address] (BEAKER) (test code = JUSTINE Ha [facility] [address] 1538) BASIC METABOLIC [id number] 07:03:00 Test Item Value Reference Range Interpretation [...] 697) EGFR (BEAKER) (test 85 mL/min/1.73 ESTIMA JAONN GFR IS code = 1092) sq m NOT ACCURATE CREATININE CLEARANCE IN PREDICTING GLOMERULAR FILTRATION RATE . ESTIMATED GFR I S NOT APPLICABLE FOR DIALYSIS PATIEN TS. CBC W/PLT COUNT & AUTO [id number] 06:56:00 Test Item Value Reference Range Interpretation [...] PERCENT (BEAKER) (test code = 2801) POCT-GLUCOSE [id number] 05:03:00 Test Item Value Reference Range Interpretation Comments POC-GLUCOSE METER 90 mg/dL 70-110 TESTED AT [facility] [address] (BEAKER) (test code = [place] [address] 1538) [id number] 12:47:00 Test Item Value Reference Range Interpretation Comments MAGNESIUM (BEAKER) (test code = 1.8 mg/dL 1.6-2.6 627) BASIC METABOLIC [id number] 12:47:00 Test Item Value Reference Range Interpretation [...] PATIEN TS. CBC W/PLT COUNT & AUTO [id number] 12:20:00 Test Item Value Reference Range Interpretation [...] PERCENT (BEAKER) (test code = 2801) CT, [id number] 16:06:00Please give water soluble rectal contrast (gastrograffin)FINAL [...] MDReport Verified Date/Time: 06/02/2019 16:06:39 Reading Location: [facility] C013X Ortho Consult Reading Room GLOBIN [id number] 14:49:00 Test Item Value Reference Range Interpretation Comments HEMOGLOBIN A1C (BEAKER) (test code = 6.4 % 4.3-6.1 H 368) [id number] 10:13:00 Test Item Value Reference Range Interpretation Comments PHOSPHORUS (BEAKER) (test code = 2.7 mg/dL 2.3-4.7 604) [id number] 10:13:00 Test Item Value Reference Range Interpretation Comments MAGNESIUM (BEAKER) (test code = 1.8 mg/dL 1.6-2.6 627) BASIC METABOLIC [id number] 10:13:00 Test Item Value Reference Range Interpretation [...] APPLICABLE FOR DIALYSIS PATIEN TS. HEPATIC FUNCTION [id number] 10:13:00 Test Item Value Reference Range Interpretation [...] 6-55 347) CBC W/PLT COUNT & AUTO [id number] 10:01:00 Test Item Value Reference Range Interpretation [...] PERCENT (BEAKER) (test code = 2801) CT, [id number] 04:53:00FINAL REPORT CT, ABDOMEN \\T\\ PELVIS, WITH [...] colon. Nonobstructing bilateral nephrolithiasis. Signed: Sofiya Ding [facility] Verified Date/Time: 0 06/02/2019 04:53:48 BASIC METABOLIC [id number] 02:20:00 Test Item Value Reference Range Interpretation [...] TS. RAD, ABDOMEN SERIES W/ UPRIGHT PA [id number] 01:44:00Reason for exam:- >ABDOMINAL PAINFINAL REPORT RAD, [...] 06/01/2019 01:44:40 CBC W/PLT COUNT & AUTO [id number] 00:59:00 Test Item Value Reference Range Interpretation [...] (BEAKER) (test code = 2801) RESPIRATORY PANEL [id number] 16:44:00 Test Item Value Reference Range Interpretation [...] H1 Not detected, (BEAKER) (test code = 1716) Equivocal INFLUENZA A SUBTYPE H3 Not detected, (BEAKER) (test code = 2687) Equivocal INFLUENZA A SUBTYPE H1-2009 Not detected, (BEAKER) (test code = 3198) Equivocal INFLUENZA B (BEAKER) (test Not detected Not detected, code = 0648) Equivocal RESPIRATORY SYNCYTIAL VIRUS Not detected Not [...] decisions. This sample was tested at the [facility] using the [employer] Inc[employer] Respiratory Panel. It is FDA cleared and has been verified and approved by the [facility] for clinical use on nasopharyngeal swab specimens.The performance of the FilmArrayRP has not been established in individuals who received influenza vaccine. Recent administration of a nasal influenza vaccine may cause false positive results for Influenza A and/orInfluenza B.[id number] 06:22:00 Test Item Value Reference Range Interpretation Comments MAGNESIUM (BEAKER) 2.2 mg/dL 1.6-2.6 Specimen slightly (test code = 627) hemolyzed BASIC METABOLIC [id number] 06:22:00 Test Item Value Reference Range Interpretation [...] PATIEN TS. CBC W/PLT COUNT & AUTO [id number] 06:01:00 Test Item Value Reference Range Interpretation [...] = 2801) CBC W/PLT COUNT & AUTO [id number] 07:32:00 Test Item Value Reference Range Interpretation [...] 3438) Received comment: User comments: Slide comments:CALCIUM, [id number] 05:25:00 Test Item Value Reference Range Interpretation Comments CALCIUM IONIZED (BEAKER) (test 1.14 mmol/L 1.12-1.27 code = 698) PH, BLOOD (BEAKER) (test code = 7.41 1810) [id number] 05:04:00 Test Item Value Reference Range Interpretation Comments PHOSPHORUS (BEAKER) (test code = 2.6 mg/dL 2.3-4.7 604) [id number] 05:04:00 Test Item Value Reference Range Interpretation Comments MAGNESIUM (BEAKER) (test code = 1.9 mg/dL 1.6-2.6 627) BASIC METABOLIC [id number] 05:04:00 Test Item Value Reference Range Interpretation [...] NOT APPLICABLE FOR DIALYSIS PATIEN TS. CT, [id number] 17:54:00FINAL REPORT CT scan of the abdomen [...] MDReport Verified Date/Time: 03/27/2019 17:54:25 Reading Location: [address] Consult Reading Room CBC W/PLT COUNT & AUTO [id number] 10:54:00 Test Item Value Reference Range Interpretation [...] = 3438) Received comment: User comments: Slide comments:[id number] 06:36:00 Test Item Value Reference Range Interpretation Comments PHOSPHORUS (BEAKER) (test code = 2.1 mg/dL 2.3-4.7 L 604) [id number] 06:36:00 Test Item Value Reference Range Interpretation Comments MAGNESIUM (BEAKER) (test code = 1.6 mg/dL 1.6-2.6 627) BASIC METABOLIC [id number] 06:36:00 Test Item Value Reference Range Interpretation [...] NOT APPLICABLE FOR DIALYSIS PATIEN TS. CALCIUM, [id number] 06:23:00 Test Item Value Reference Range Interpretation Comments CALCIUM IONIZED (BEAKER) (test 1.14 mmol/L 1.12-1.27 code = 698) PH, BLOOD (BEAKER) (test code = 7.46 1810) RAD, ABDOMEN/KUB, 1 VIEW [id number] 16:14:00Reason for exam:->constipation FINAL REPORT EXAM: AP [...] Verified Date/Time: 03/26/2019 16:14:33 Reading L ocation: [facility] Mammo Reading Room CBC W/PLT COUNT & AUTO [id number] 10:48:00 Test Item Value Reference Range Interpretation [...] (BEAKER) (test code Normal = 762) CALCIUM, [id number] 06:53:00 Test Item Value Reference Range Interpretation Comments CALCIUM IONIZED (BEAKER) (test 1.14 mmol/L 1.12-1.27 code = 698) PH, BLOOD (BEAKER) (test code = 7.44 1810) [id number] 06:33:00 Test Item Value Reference Range Interpretation Comments PHOSPHORUS (BEAKER) (test code = 2.6 mg/dL 2.3-4.7 604) [id number] 06:33:00 Test Item Value Reference Range Interpretation Comments MAGNESIUM (BEAKER) (test code = 1.4 mg/dL 1.6-2.6 L 627) BASIC METABOLIC [id number] 06:33:00 Test Item Value Reference Range Interpretation [...] 697) EGFR (BEAKER) (test 68 mL/min/1.73 ESTIMA JONAN GFR IS code = 1092) sq m NOT ACCURATE CREATININE CLEARANCE IN PREDICTING GLOMERULAR FILTRATION RATE . ESTIMATED GFR I S NOT APPLICABLE FOR DIALYSIS PATIEN TS. [id number] 06:28:00 Test Item Value Reference Range Interpretation Comments PHOSPHORUS (BEAKER) (test code = 2.8 mg/dL 2.3-4.7 604) [id number] 06:28:00 Test Item Value Reference Range Interpretation Comments MAGNESIUM (BEAKER) (test code = 1.7 mg/dL 1.6-2.6 627) BASIC METABOLIC [id number] 06:28:00 Test Item Value Reference Range Interpretation [...] NOT APPLICABLE FOR DIALYSIS PATIEN TS. CALCIUM, [id number] 06:27:00 Test Item Value Reference Range Interpretation Comments CALCIUM IONIZED (BEAKER) (test 1.18 mmol/L 1.12-1.27 code = 698) PH, BLOOD (BEAKER) (test code = 7.33 1810) CBC W/PLT COUNT & AUTO [id number] 14:47:00 Test Item Value Reference Range Interpretation [...] code = 2801) RAD, ABDOMEN/KUB, 1 VIEW [id number] 10:35:00Reason for exam:- >distentionShould this be performed at the bedside?->YesFINAL REPORT AP abdomen HISTORY: Distention COMPARISON: 03/21/2018 IMPRESSION:Decreased colonic stool burden. Some prominent aeration in the right lower quadrant. Recommend continued radiographic follow-up as developing ileus not excluded. Examination is insensitive for detection of free air. Signed: Angel Santillaneport Verified Date/Time: 03/24/2019 10:35:17 Reading Location: [address] Reading Room [id number] 07:21:00 Test Item Value Reference Range Interpretation Comments PHOSPHORUS (BEAKER) (test code = 2.4 mg/dL 2.3-4.7 604) [id number] 07:21:00 Test Item Value Reference Range Interpretation Comments MAGNESIUM (BEAKER) (test code = 1.4 mg/dL 1.6-2.6 L 627) BASIC METABOLIC [id number] 07:21:00 Test Item Value Reference Range Interpretation [...] NOT APPLICABLE FOR DIALYSIS PATIEN TS. CALCIUM, [id number] 06:37:00 Test Item Value Reference Range Interpretation Comments CALCIUM IONIZED (BEAKER) (test 1.14 mmol/L 1.12-1.27 code = 698) PH, BLOOD (BEAKER) (test code = 7.43 1810) POCT-GLUCOSE [id number] 18:06:00 Test Item Value Reference Range Interpretation Comments POC-GLUCOSE METER 106 mg/dL 70-110 TESTED AT [facility] 6720 (BEAKER) (test code = JUSTINE AYALA 1538) [address] CALCIUM, [id number] 13:41:00 Test Item Value Reference Range Interpretation Comments CALCIUM IONIZED (BEAKER) (test 0.83 mmol/L 1.12-1.27 L code = 698) PH, BLOOD (BEAKER) (test code = 7.47 1810) POCT-GLUCOSE [id number] 11:59:00 Test Item Value Reference Range Interpretation Comments POC-GLUCOSE METER 93 mg/dL 70-110 TESTED AT [facility] 67[address] (BEAKER) (test code = [place] [address] 1538) [id number] 10:39:00 Test Item Value Reference Range Interpretation Comments MAGNESIUM (BEAKER) 1.6 mg/dL 1.6-2.6 Specimen slightly (test code = 627) hemolyzed [id number] 10:39:00 Test Item Value Reference Range Interpretation Comments PHOSPHORUS (BEAKER) 2.5 mg/dL 2.3-4.7 Specimen slightly (test code = 604) hemolyzed BASIC METABOLIC [id number] 10:39:00 Test Item Value Reference Range Interpretation [...] PATIEN TS. CBC W/PLT COUNT & AUTO [id number] 10:13:00 Test Item Value Reference Range Interpretation [...] PERCENT (BEAKER) (test code = 2801) POCT-GLUCOSE [id number] 06:33:00 Test Item Value Reference Range Interpretation Comments POC-GLUCOSE METER 74 mg/dL 70-110 TESTED AT [facility] 67[address] (BEAKER) (test code = [place] [address] 1538) [id number] 07:02:00 Test Item Value Reference Range Interpretation Comments MAGNESIUM (BEAKER) (test code = 1.6 mg/dL 1.6-2.6 627) BASIC METABOLIC [id number] 07:02:00 Test Item Value Reference Range Interpretation [...] TS. RAD, ABDOMEN SERIES W/ UPRIGHT PA [id number] 00:30:00Reason for exam:- >SBOReason for exam:->EMESISFINAL REPORT [...] MDReport Verified Date/Time: 03/22/2019 00:30:32 Reading Location: [address] Reading Room URINALYSIS W/ [id number] 21:18:00 Test Item Value Reference Range Interpretation [...] 0 /HPF SOURCE(BEAKER) (test code = 2795) [id number] 20:16:00 Test Item Value Reference Range Interpretation Comments LIPASE (BEAKER) (test code = 749) < U/L 8-78 L BASIC METABOLIC [id number] 20:14:00 Test Item Value Reference Range Interpretation [...] APPLICABLE FOR DIALYSIS PATIEN TS. HEPATIC FUNCTION [id number] 20:14:00 Test Item Value Reference Range Interpretation [...] 6-55 347) CBC W/PLT COUNT & AUTO [id number] 19:59:00 Test Item Value Reference Range Interpretation [...] PERCENT (BEAKER) (test code = 2801) POCT-GLUCOSE [id number] 21:18:00 Test Item Value Reference Range Interpretation Comments POC-GLUCOSE METER 155 mg/dL 70-110 H TESTED AT [facility] 6720 ([facility]) (test code = JUSTINE AYALA 1538) [address] POCT-GLUCOSE [id number] 12:24:00 Test Item Value Reference Range Interpretation Comments POC-GLUCOSE METER 179 mg/dL 70-110 H TESTED AT [facility] 6720 (BEAKER) (test code = JUSTINE Ha [facility] 1538) [address] POCT-GLUCOSE [id number] 09:01:00 Test Item Value Reference Range Interpretation Comments POC-GLUCOSE METER 79 mg/dL 70-110 TESTED AT [facility] 6720 (BEAKER) (test code = JUSTINE Ha [facility] [address] 1538) POCT-GLUCOSE [id number] 21:50:00 Test Item Value Reference Range Interpretation Comments POC-GLUCOSE METER 134 mg/dL 70-110 H TESTED AT [facility] 67 (BEAKER) (test code = JUSTINE Ha [facility] 1538) [address] BASIC METABOLIC [id number] 06:49:00 Test Item Value Reference Range Interpretation [...] PATIEN TS. CBC W/PLT COUNT & AUTO [id number] 06:27:00 Test Item Value Reference Range Interpretation [...] PERCENT (BEAKER) (test code = 2801) POCT-GLUCOSE [id number] 22:51:00 Test Item Value Reference Range Interpretation Comments POC-GLUCOSE METER 128 mg/dL 70-110 H TESTED AT [facility] 67[address] (BEAKER) (test code = JUSTINE CORTEZ [place] 1538) [address] CT, [id number] 23:14:00FINAL REPORT ABDOMINAL AND PELVIS CT DATED [...] MDReport Verified Date/Time: 02/14/2019 23:14:03 Reading Location: [address] Consult Reading Room LIPASE 2019-02-14 21:10:00 Test Item Value Reference Range Interpretation Comments LIPASE (BEAKER) (test code = 749) < U/L 8-78 L COMPREHENSIVE METABOLIC [id number] 21:09:00 Test Item Value Reference Range Interpretation [...] APPLICABLE FOR DIALYSIS PATIEN TS. LACTIC ACID, [id number] 21:04:00 Test Item Value Reference Range Interpretation Comments LACTATE BLOOD VENOUS (2) (BEAKER) 0.8 mmol/L 0.5-2.2 (test code = 2872) BLOOD GAS, [id number] 21:04:00 Test Item Value Reference Range Interpretation [...] 21.0 % CBC W/PLT COUNT & AUTO [id number] 20:49:00 Test Item Value Reference Range Interpretation [...] (test code = 2801) AFB CULTURE + [id number] 10:54:00 Test Item Value Reference Interpretation Comments Range CULTURE (BEAKER) MYCOBACTERIUM A Mycobacter [facility] (test code = 1095) SPECIES species* - Most closely related to M.yongonense/M. mars eillenseIdentif icat ion and susceptibility performed by:[facility] , Dept. of Microbiology Research, Dr. Shyam Olvera [facility], [address] [address] Amikacin (test code mcg/mL S = 1) [...] and not related to human disease.CF RESPIRATORY [id number] 00:29:00 Test Item Value Reference Range Interpretation [...] maria del carmen present- CT ABD PELVIS [id number] 23:53:00 Name: VELIA ROBLES [facility]ly [facility] : 1975 Age/S: 43 / M [address] Unit #: [id number] Loc: [place] [address] Phys: Angela Diaz MD Acct: [id number] Dis Date: Status: [facility] PHONE #: [phone] Exam Date: 11/20/2018 1838 FAX #: Reason: RLQ pain, hx of SBO EXAMS: CPT: [id number] CT ABD PELVIS W/CONT 34557 Site ID: [id number] CLINICAL HISTORY: Right lower [...] PAGE 1 Signed Report (CONTINUED) Name: VELIA ROBLES [facility] : 1975 Age/S: 43 / M [address] Unit #: [id number] Loc: [place] [address] Phys: Angela Diaz MD Acct: [id number] Date: Status: REG ER PHONE #: [phone] Exam Date: 11/20/2018 2359 FAX #: Reason: RLQ pain, hx of SBO EXAMS: CPT: [id number] CT ABD PELVIS W/CONT 98413 (Continued) at 2353 Reported and signed by: Florence Ferrera M.D. CC: Radha Burch MD;Angela Diaz MD; Yani Gonzalez NP Technologist:Florencia Pinto RT(R)(CT); Lui CTDI: DLP: Trnscb Date/Time: 11/20/2018 (7863) IbrahimaAJP6 Orig Print D/T: S: 11/20/2018 (9510) CTDI: DLP: PAGE 2 SignedReportBASIC METABOLIC [id number] 23:24:00 Test Item Value Reference Range Interpretation [...] CA) 8.3 MG/DL 8.5-10.1 L HEPATIC FUNCTION [id number] 23:24:00 Test Item Value Reference Range Interpretation [...] 93 Unit/L 50-136 N code = ALKP) [id number] 23:24:00 Test Item Value Reference Range Interpretation Comments LIPASE (test code = LIP) 28 Unit/L 114-286 L URINALYSIS [id number] 23:21:00 Test Item Value Reference Range Interpretation [...] DIPSTICK (test code = LEUU) CBC W/AUTO [id number] 23:18:00 Test Item Value Reference Range Interpretation [...] = NO DIFF/SCN CRITERIA MDIFF) BASIC METABOLIC [id number] 23:12:00 Test Item Value Reference Range Interpretation [...] CA) 8.3 MG/DL 8.5-10.1 L HEPATIC FUNCTION [id number] 23:12:00 Test Item Value Reference Range Interpretation [...] TOTAL (test code Unit/L 50-136 = ALKP) [id number] 23:12:00 Test Item Value Reference Range Interpretation Comments LIPASE (test code = LIP) 28 Unit/L 114-286 L CF RESPIRATORY [id number] 09:28:00 Test Item Value Reference Range Interpretation [...] Normal respiratory maria del carmen presentCF RESPIRATORY [id number] 15:22:00 Test Item Value Reference Range Interpretation [...] >4 4+ Normal respiratory maria del carmen [id number] 09:23:00 Test Item Value Reference Range Interpretation Comments PHOSPHORUS (BEAKER) (test code = 2.4 mg/dL 2.3-4.7 604) [id number] 09:23:00 Test Item Value Reference Range Interpretation Comments MAGNESIUM (BEAKER) (test code = 1.8 mg/dL 1.6-2.6 627) BASIC METABOLIC [id number] 09:23:00 Test Item Value Reference Range Interpretation [...] PATIEN TS. CBC W/PLT COUNT & AUTO [id number] 09:03:00 Test Item Value Reference Range Interpretation [...] PERCENT (BEAKER) (test code = 2801) SPIN/CONCENTRATION [id number] 14:50:00 Test Item Value Reference Range Interpretation Comments CONCENTRATION CHARGED (BEAKER) (test Done code = 2657) TOBRAMYCIN LEVEL, [id number] 07:27:00 Test Item Value Reference Range Interpretation Comments TOBRAMYCIN RANDOM (BEAKER) (test 1.7 ug/mL code = 544) Reference Range: No [id number] 07:24:00 Test Item Value Reference Range Interpretation Comments PHOSPHORUS (BEAKER) (test code = 2.5 mg/dL 2.3-4.7 604) [id number] 07:24:00 Test Item Value Reference Range Interpretation Comments MAGNESIUM (BEAKER) (test code = 1.5 mg/dL 1.6-2.6 L 627) BASIC METABOLIC [id number] 07:24:00 Test Item Value Reference Range Interpretation [...] PATIEN TS. CBC W/PLT COUNT & AUTO [id number] 07:03:00 Test Item Value Reference Range Interpretation [...] 0-1 PERCENT (BEAKER) (test code = 2801) [id number] 04:19:00 Test Item Value Reference Range Interpretation Comments MAGNESIUM (BEAKER) 1.6 mg/dL 1.6-2.6 Specimen slightly (test code = 627) hemolyzed [id number] 04:19:00 Test Item Value Reference Range Interpretation Comments PHOSPHORUS (BEAKER) 2.6 mg/dL 2.3-4.7 Specimen slightly (test code = 604) hemolyzed BASIC METABOLIC [id number] 04:19:00 Test Item Value Reference Range Interpretation [...] PATIEN TS. CBC W/PLT COUNT & AUTO [id number] 04:09:00 Test Item Value Reference Range Interpretation [...] PERCENT (BEAKER) (test code = 2801) CT, [id number] 21:54:00FINAL REPORT EXAM: CT of the abdomen [...] MDReport Verified Date/Time: 10/25/2018 21:54:25 Reading Location: [address] Reading [facility] METABOLIC [id number] 20:13:00 Test Item Value Reference Range Interpretation [...] APPLICABLE FOR DIALYSIS PATIEN TS. URINALYSIS W/ [id number] 19:19:00 Test Item Value Reference Range Interpretation [...] 520) SOURCE(BEAKER) (test code = Urine, Voided 3410) CBC W/PLT COUNT & AUTO [id number] 19:02:00 Test Item Value Reference Range Interpretation [...] (test code = 2801) AFB CULTURE + [id number] 12:42:00 Test Item Value Reference Range Interpretation Comments CULTURE (BEAKER) (test No acid-fast bacilli code = 1095) isolated in 42 days AFB SMEAR (BEAKER) No acid fast bacilli (test code = 994) seen FUNGUS CULTURE + [id number] 06:40:00 Test Item Value Reference Range Interpretation Comments CULTURE (BEAKER) (test No fungus isolated in code = 1095) 28 days FUNGUS SMEAR (BEAKER) No fungi seen (test code = 1406) RAD, ABDOMEN/KUB, 1 VIEW [id number] 15:59:00Reason for exam:->assess for stool burdenShould this [...] Arteagaort Verified Date/Time: 09/13/2018 15:59:37 Reading Location: [address] Consult Reading [facility] [id number] 12:21:00 Test Item Value Reference Range Interpretation [...] 47) 2+ Normal respiratory maria del carmen [id number] 07:17:00 Test Item Value Reference Range Interpretation Comments PHOSPHORUS (BEAKER) (test code = 3.2 mg/dL 2.3-4.7 604) [id number] 07:17:00 Test Item Value Reference Range Interpretation Comments MAGNESIUM (BEAKER) (test code = 1.6 mg/dL 1.6-2.6 627) BASIC METABOLIC [id number] 07:17:00 Test Item Value Reference Range Interpretation [...] PATIEN TS. CBC W/PLT COUNT & AUTO [id number] 07:16:00 Test Item Value Reference Range Interpretation [...] 0-1 PERCENT (BEAKER) (test code = 2801) [id number] 12:19:00 Test Item Value Reference Range Interpretation Comments PHOSPHORUS (BEAKER) (test code = 3.3 mg/dL 2.3-4.7 604) [id number] 12:19:00 Test Item Value Reference Range Interpretation Comments MAGNESIUM (BEAKER) (test code = 2.1 mg/dL 1.6-2.6 627) BASIC METABOLIC [id number] 12:19:00 Test Item Value Reference Range Interpretation [...] PATIEN TS. CBC W/PLT COUNT & AUTO [id number] 11:54:00 Test Item Value Reference Range Interpretation [...] PERCENT (BEAKER) (test code = 2801) SPIN/CONCENTRATION [id number] 00:15:00 Test Item Value Reference Range Interpretation Comments CONCENTRATION CHARGED (BEAKER) (test Done code = 2657) CT, [id number] 21:49:00Reason for exam:->ABDOMINAL PAINWhat is the patient's [...] continued attention on follow-up imaging. Signed: Sofiya Dingort Verified Date/Time: 09/08/2018 21:49:11 Reading Location: [facility] C013T [facility] Reading Room URINALYSIS W/ [id number] 21:16:00 Test Item Value Reference Range Interpretation [...] 1574) SOURCE(BEAKER) (test code = Urine, Voided 2378) [id number] 19:36:00 Test Item Value Reference Range Interpretation Comments LIPASE (BEAKER) (test code = 749) 31 U/L 8-78 BASIC METABOLIC [id number] 19:36:00 Test Item Value Reference Range Interpretation [...] APPLICABLE FOR DIALYSIS PATIEN TS. HEPATIC FUNCTION [id number] 19:36:00 Test Item Value Reference Range Interpretation [...] (test code = 27 U/L 6-55 347) [id number] 19:30:00 Test Item Value Reference Range Interpretation Comments PARTIAL THROMBOPLASTIN TIME 28.5 seconds 22.5-36.0 (BEAKER) (test code = 760) PROTHROMBIN TIME/[id number] 19:29:00 Test Item Value Reference Range Interpretation [...] mechanical heart valves.CBC W/PLT COUNT & AUTO [id number] 19:22:00 Test Item Value Reference Range Interpretation [...] 0-1 PERCENT (BEAKER) (test code = 2801) [id number] 06:48:00 Test Item Value Reference Range Interpretation Comments PHOSPHORUS (BEAKER) (test code = 3.0 mg/dL 2.3-4.7 604) [id number] 06:48:00 Test Item Value Reference Range Interpretation Comments MAGNESIUM (BEAKER) (test code = 1.5 mg/dL 1.6-2.6 L 627) BASIC METABOLIC [id number] 06:48:00 Test Item Value Reference Range Interpretation [...] NOT APPLICABLE FOR DIALYSIS PATIEN TS. PROTHROMBIN [id number] 06:43:00 Test Item Value Reference Range Interpretation [...] code = 685) ALPHA FETOPROTEIN (AFP), TUMOR [id number] 13:38:00 Test Item Value Reference Range Interpretation Comments ALPHA-FETOPROTEIN (BEAKER) (test 2.2 ng/mL <10.0 code = 1094) RAD, CHEST, 1 VIEW, NON [id number] 16:08:00Reason for exam:->CFShould this be performed at the bedside?->YesFINAL REPORT CLINICAL HISTORY: CF TECHNIQUE: 1 view of the chest COMPARISON: 07/31/2018 IMPRESSION: There are no focal infiltrates or pleural effusions. The cardiomediastinal silhouette is within normal limits for size. The visualized bones are intact. Signed: Murray Longo [facility] Verified Date/Time: 08/29/2018 16:08:13 Reading Location: [facility] C013W Consult Reading Room CT, [id number] 19:06:00Reason for exam:->abdominal painFINAL REPORT CT scan [...] lymphoma cannot be excluded. Signed: Omari Rich MDRort Verified Date/Time: 08/28/2018 19:06:10 Reading Location: [address] Consult Reading Room [id number] 16:08:00 Test Item Value Reference Range Interpretation Comments LIPASE (BEAKER) (test code = 749) < U/L 8-78 L BASIC METABOLIC [id number] 15:57:00 Test Item Value Reference Range Interpretation [...] APPLICABLE FOR DIALYSIS PATIEN TS. HEPATIC FUNCTION [id number] 15:57:00 Test Item Value Reference Range Interpretation [...] 6-55 347) CBC W/PLT COUNT & AUTO [id number] 15:44:00 Test Item Value Reference Range Interpretation [...] PERCENT (BEAKER) (test code = 2801) BLOOD [id number] 18:01:00 Test Item Value Reference Range Interpretation Comments CULTURE (BEAKER) (test No growth in 5 days code = 1095) BLOOD [id number] 15:01:00 Test Item Value Reference Range Interpretation Comments CULTURE (BEAKER) A From Aerobi c Bottle (test code = Only Micrococcu s 1095) species GRAM STAIN RESULT From aerobic (BEAKER) (test bottle only: gram code = 1123) positive cocci in clusters BLOOD [id number] 18:00:00 Test Item Value Reference Range Interpretation Comments CULTURE (BEAKER) (test No growth in 5 days code = 1095) RAD, ABDOMEN/KUB, 1 VIEW [id number] 09:39:00Reason for exam:->f/u DIOSFINAL REPORT TECHNIQUE: Supine [...] MDReport Verified Date/Time: 08/03/2018 09:39:24 Reading Location: [facility] Radiology Reading Room RAD, ABDOMEN/KUB, 1 [...] MDReport Verified Date/Time: 08/02/2018 13:48:07 Reading Location: [facility] C013W Consult Reading Room BLOOD CULTURE IDENTIFICATION [id number] 13:27:00 Test Item Value Reference Range Interpretation Comments LISTERIA MONOCYTOGENES (test Not detected Not detected code = 4044515) STAPHYLOCOCCUS (test code = Not detected Not detected 4144822) STAPHYLOCOCCUS AUREUS (test code Not detected Not detected = 7582148) STREPTOCOCCUS (test code = Not detected Not detected 6886905) STREPTOCOCCUS AGALACTIAE (GROUP Not detected Not detected B) (test code = 0963967) STREPTOCOCCUS PNEUMONIAE (test Not detected Not detected code = 6731672) STREPTOCOCCUS PYOGENES (GROUP A) Not detected Not detected (test code = 4413755) ACINETOBACTER BAUMANNII (test Not detected Not detected code = 8621173) HAEMOPHILUS INFLUENZAE (test Not detected Not detected code = 6738915) NEISSERIA MENINGITIDIS (test Not detected Not detected code = 1893341) ENTEROBACTERIACEAE (test code = Not detected Not detected 4479970) ENTEROBACTER CLOACOE COMPLEX Not detected Not detected (test code = 2697721) KLEBSIELLA OXYTOCA (test code = Not detected Not detected 9636451) KLEBSIELLA PNEUMONIAE (test code Not detected Not detected = 1650) PROTEUS (test code = 9285779) Not detected Not detected SERRATIA MARCESCENS (test code = Not detected Not detected 4090998) PADILLA ALBICANS (test code = Not detected Not detected 3779390) PADILLA GLABRATA (test code = Not detected Not detected 1794825) PADILLA KRUSEI (test code = Not detected Not detected 4949993) PADILLA PARAPSILOSIS (test code Not detected Not detected = 6607437) PADILLA TROPICALIS (test code = Not detected Not detected 7392101) ESCHERICHIA COLI (test code = Not detected Not detected 6867305) METHICILLIN-RESISTANCE GENE Not detected (test code = 3972087) VANCOMYCIN-RESISTANCE GENE (test Not detected code = 6255130) CARBAPENEM-RESISTANCE GENE (test Not detected code = 2163153) ENTEROCOCCUS-BEAKER (test code = Not detected Not detected 2133555) PSEUDOMONAS AERUGINOSA-BEAKER Not detected Not detected (test code = 5576417) Other bacteria and resistance markers not targeted by this PCR panel cannot be excluded; therefore clinical correlation and follow up of serology, culture results, and other molecular studies is required. The results are not intended to be used as the sole means for clinical diagnosis or patient management decisions. This sample was tested at the [facility] Molecular Diagnostics Laboratory using the MediBeacon Blood Culture ID Panel. It is FDA cleared and has been verified and approved by the [facility] Molecular Diagnostics Laboratory for clinical use. This laboratory is CLIA-certified and College ofAmerican Pathologists (CAP)-accredited to perform high complexity testing.BASIC METABOLIC [id number] 10:10:00 Test Item Value Reference Range Interpretation [...] PATIEN TS. CBC W/PLT COUNT & AUTO [id number] 09:30:00 Test Item Value Reference Range Interpretation [...] (test code = 2801) RAD, CHEST, 2 [id number] 20:55:00Reason for exam:->Cystic fibrosisFINAL REPORT TECHNIQUE: 2 [...] MDReport Verified Date/Time: 07/31/2018 20:55:36 Reading Location: [facility] Mammo Reading Room [facility] METABOLIC [id number] 06:51:00 Test Item Value Reference Range Interpretation [...] PATIEN TS. CBC W/PLT COUNT & AUTO [id number] 06:09:00 Test Item Value Reference Range Interpretation [...] (BEAKER) (test code = 2801) U/S, ABDOMINAL, [id number] 11:04:00Abdomen limited area? Add comment if clarification is needed.->Gall BladderReason for exam:->ABDOMINAL PAIN FINAL REPORT ULTRASOUND RIGHT UPPER QUADRANT OF THE ABDOMEN HISTORY: Abdominalpain COMPARISON: CT abdomen from today TECHNIQUE: Real-time ultrasound of the right upper quadrant of the abdomen was performed. FINDINGS: The liver is normal in size. Hepatic length is 12.7 cm. No mass lesion is visualized. Mild diffuse increase in hepatic [...] kidney is normal in size, contour, and echogenicity. The right kidney measures 9.5 cm in length. No hydronephrosis, mass lesion or stones are visualized. No abnormalities are seen in the inferior vena cava or hepatic veins. The majority of the abdominalaorta is obscured by bowel gas. IMPRESSION: 1. Mild fatty infiltration of the liver. 2. No gallstones are visualized. Signed: Diane Michael MDReport Verified Date/Time: 07/30/2018 11:04:05 Reading Location: [address] Transitional Reading Room 11:04 AMCT, [id number] 10:05:00Reason for exam:->Abdominal painWhat is the patient's [...] MDReport Verified Date/Time: 07/30/2018 10:05:17 Reading Location: [facility] C013Y CT Body Reading Room URINALYSIS WITH MICROSCOPIC IF [id number] 09:06:00 Test Item Value Reference Range Interpretation [...] = 463) SOURCE(BEAKER) (test code = 2795) [id number] 08:53:00 Test Item Value Reference Range Interpretation Comments LIPASE (BEAKER) (test code = 749) < U/L 8-78 L [id number] 08:53:00 Test Item Value Reference Range Interpretation [...] is 2.5-3.5 for patients with mechanical heart valves.[id number] 08:46:00 Test Item Value Reference Range Interpretation Comments MAGNESIUM (BEAKER) (test code = 1.6 mg/dL 1.6-2.6 627) COMPREHENSIVE METABOLIC [id number] 08:46:00 Test Item Value Reference Range Interpretation [...] PATIEN TS. CBC W/PLT COUNT & AUTO [id number] 08:34:00 Test Item Value Reference Range Interpretation [...] 3438) Received comment: User comments: Slide comments:CT, [id number] 18:32:00 Reason for exam:->ABDOMINAL PAINWhat is the [...] MDReport Verified Date/Time: 07/26/2018 18:32:08 Reading Location: [place] [id number] CT Body Reading Room ALT (SGPT)2018-07-26 16:15:00 Test Item Value Reference Range Interpretation Comments ALT (SGPT) (BEAKER) (test code = 347) 40 U/L 6-55 AST (SGOT)2018-07-26 16:15:00 Test Item Value Reference Range Interpretation Comments AST (SGOT) (BEAKER) (test code = 353) 31 U/L 5-34 BASIC METABOLIC [id number] 16:15:00 Test Item Value Reference Range Interpretation [...] APPLICABLE FOR DIALYSIS PATIEN TS. BILIRUBIN, ADULT [id number] 16:15:00 Test Item Value Reference Range Interpretation Comments BILIRUBIN TOTAL (BEAKER) (test code 1.0 mg/dL 0.2-1.2 = 377) [id number] 16:15:00 Test Item Value Reference Range Interpretation Comments LIPASE (BEAKER) (test code = 749) < U/L 8-78 L CBC W/PLT COUNT & AUTO [id number] 16:00:00 Test Item Value Reference Range Interpretation [...] code = 2801) SPUTUM CULTURE + GRAM [id number] 08:14:00 Test Item Value Reference Range Interpretation [...] 0-5 epithelial (BEAKER) (test code cells = 970679) GRAM STAIN RESULT 1+ gram negative (BEAKER) (test code rods = 532862) GRAM STAIN RESULT 1+ gram positive (BEAKER) (test code rods = 336015) GRAM STAIN RESULT 1+ gram positive (BEAKER) (test code cocci in chains, = 421378) pairs and clusters <1+ Normal respiratory maria del carmen presentBLOOD [id number] 11:00:00 Test Item Value Reference Range Interpretation Comments CULTURE (BEAKER) (test No growth in 5 days code = 1095) BASIC METABOLIC [id number] 06:31:00 Test Item Value Reference Range Interpretation [...] 0-0 (BEAKER) (test code = 413) FL, [id number] 16:00:00Reason for exam:->CF with LIONEL, needs barium contrast enema.FINAL REPORT Gastrografin enema CLINICAL HISTORY: Cystic fibrosis with LIONEL DISCUSSION: Registered Vascular Technologist (Rvt) film of the abdomen demonstrates large amount [...] Waters Verified Date/Time: 07/21/2018 16:00:52 Reading Location: [address] Consult Reading Room CREATININE, RANDOM [id number] 12:59:00 Test Item Value Reference Range Interpretation Comments CREATININE URINE (BEAKER) (test 88.2 mg/dL code = 375) Reference Range: No NormalsSODIUM, RANDOM [id number] 12:59:00 Test Item Value Reference Range Interpretation Comments SODIUM URINE (BEAKER) (test code = 167 meq/L 243) Reference Range: No NormalsURINALYSIS W/ [id number] 10:58:00 Test Item Value Reference Range Interpretation [...] 516) SOURCE(BEAKER) (test code = Urine, Voided 2065) TSH/FREE T4 IF [id number] 10:13:00 Test Item Value Reference Range Interpretation Comments THYROID STIMULATING HORMONE 1.64 uIU/mL 0.35-4.94 (BEAKER) (test code = 772) TROPONIN [id number] 10:04:00 Test Item Value Reference Range Interpretation [...] acute neurological disease, and persistent tachyarrhythmia.BASIC METABOLIC [id number] 05:36:00 Test Item Value Reference Range Interpretation [...] code = 413) RAD, ABDOMEN/KUB, 1 VIEW [id number] 16:20:00Reason for exam:->ileusFINAL REPORT Abdomen one view [...] MDReport Verified Date/Time: 07/20/2018 16:20:23 Reading Location: [address] Consult Reading Room [id number] 03:53:00 Test Item Value Reference Range Interpretation Comments MAGNESIUM (BEAKER) (test code = 1.7 mg/dL 1.6-2.6 627) BASIC METABOLIC [id number] 03:53:00 Test Item Value Reference Range Interpretation [...] PATIEN TS. CBC W/PLT COUNT & AUTO [id number] 03:31:00 Test Item Value Reference Range Interpretation [...] code = 2801) RAD, ABDOMEN/KUB, 1 VIEW [id number] 16:03:00Reason for exam:->obstruction FINAL REPORT Abdomen one [...] MDReport Verified Date/Time: 07/19/2018 16:03:55 Reading Location: [facility] C013W Consult Reading Room [id number] 05:28:00 Test Item Value Reference Range Interpretation Comments MAGNESIUM (BEAKER) (test code = 1.5 mg/dL 1.6-2.6 L 627) BASIC METABOLIC [id number] 05:28:00 Test Item Value Reference Range Interpretation [...] PATIEN TS. CBC W/PLT COUNT & AUTO [id number] 05:01:00 Test Item Value Reference Range Interpretation [...] code = 2801) RAD, ABDOMEN/KUB, 1 VIEW [id number] 08:45:00Reason for exam:->eval bowel obstructionFINAL REPORT Technique: [...] [place] Verified Date/Time: 07/18/2018 08:45:55 Reading Location: [facility] Radiology Reading Room MAGNESIUM 2018-07-18 07:03:00 Test Item Value Reference Range Interpretation Comments MAGNESIUM (BEAKER) (test code = 1.5 mg/dL 1.6-2.6 L 627) BASIC METABOLIC [id number] 07:03:00 Test Item Value Reference Range Interpretation [...] PATIEN TS. CBC W/PLT COUNT & AUTO [id number] 06:37:00 Test Item Value Reference Range Interpretation [...] code = 2801) URINALYSIS W/ REFLEX URINE [id number] 22:24:00 Test Item Value Reference Range Interpretation [...] Occasional SOURCE(BEAKER) (test code = 2795) CT, [id number] 21:37:00Reason for exam:->ABDOMINAL PAINReason for exam:->CYSTIC FIBROSISWhat [...] Ding Verified Date/Time: 07/17/2018 21:37:48 Reading Location: [facility] C0[facility] Transitional Reading Room (CELLAVISION MANUAL DIFF)2018-07-17 20:15:00 [...] = 3438) Received comment: User comments: Slide comments:[id number] 20:05:00 Test Item Value Reference Range Interpretation Comments LIPASE (BEAKER) (test code = 749) < U/L 8-78 L COMPREHENSIVE METABOLIC [id number] 20:03:00 Test Item Value Reference Range Interpretation [...] PATIEN TS. CBC W/PLT COUNT & AUTO [id number] 19:57:00 Test Item Value Reference Range Interpretation [...] 0-1 PERCENT (BEAKER) (test code = 2801) [id number] 19:53:00 Test Item Value Reference Range Interpretation [...] is 2.5-3.5 for patients with mechanical heart valves.[id number] 05:38:00 Test Item Value Reference Range Interpretation Comments MAGNESIUM (BEAKER) (test code = 1.8 mg/dL 1.6-2.6 627) BASIC METABOLIC [id number] 05:38:00 Test Item Value Reference Range Interpretation [...] S NOT APPLICABLE FOR DIALYSIS PATIEN TS. [id number] 09:47:00 Test Item Value Reference Range Interpretation Comments MAGNESIUM (BEAKER) (test code = 1.3 mg/dL 1.6-2.6 L 627) BASIC METABOLIC [id number] 09:47:00 Test Item Value Reference Range Interpretation [...] NOT APPLICABLE FOR DIALYSIS PATIEN TS. HEMOGLOBIN [id number] 11:59:00 Test Item Value Reference Range Interpretation Comments HEMOGLOBIN A1C (BEAKER) (test code = 6.1 % 4.3-6.1 368) [id number] 05:49:00 Test Item Value Reference Range Interpretation Comments MAGNESIUM (BEAKER) (test code = 1.5 mg/dL 1.6-2.6 L 627) BASIC METABOLIC [id number] 05:49:00 Test Item Value Reference Range Interpretation [...] PATIEN TS. CBC W/PLT COUNT & AUTO [id number] 05:12:00 Test Item Value Reference Range Interpretation [...] PERCENT (BEAKER) (test code = 2801) CT, [id number] 19:56:00FINAL REPORT CT of the abdomen and pelvis, with contrast, 06/29/2018. History: Abdominal pain, vomiting, cystic fibrosis Comparison: None available. Technique: Multidetector CT scanning of the abdomen and pelvis was performed from the level of the lung bases to the inferior pubic ramus, with intravenous administration of non-ionic contrast and with oral contrast. This examinationwas performed in accordance with a departmental dose [...] normal caliber. Portal vein patent. The stomach and multiple loops of small bowel are distended. Portions of the colon also appear distended. There is stool present throughout the colon and some fecalization in the small bowel. No definitive transitionpoint is identified however. Anastomotic sutures present near the level of the cecum. Urinary bladder unremarkable. No adenopathy. No ascites. No worrisome skeletal findings. IMPRESSION:Distention of multiple loops of large and small bowel without definitive transition point, which may reflect distal intestinal obstruction syndrome. Small bowel obstruction is not entirely excluded however. Signed: Angel Clay MDReport Verified Date/Time: 06/29/2018 19:56:22 Reading Location: [facility] C0[facility] ConsultReading Room [id number] 17:45:00 Test Item Value Reference Range Interpretation Comments LIPASE (BEAKER) (test code = 749) < U/L 8-78 L COMPREHENSIVE METABOLIC [id number] 17:45:00 Test Item Value Reference Range Interpretation [...] ATED GFR. CBC W/PLT COUNT & AUTO [id number] 17:13:00 Test Item Value Reference Range Interpretation [...] Notes Date/Time Note Provider Source 2018-11-20 21:38:00-00:00 [id number] [address] PATIENT NAME: VELIA ROBLES ADMIT DATE: 9 ACCOUNT NO: [id number] ROOM NO: AGE: 43 REPORT TYPE: eELECTROCARDIOGRAM SEX: M ADMITTING PHYSICIAN: ATTENDING PHYSICIAN: Order: [id number] Test Reason : (Not Selected) Test Date/Time [...] ECGs available Confirmed by VIJAY CAMPA MD ([id number]) on 11/24/2018 12: 17:16 AM Referred By: Self Referred Confirmed by:VIJAY CAMPA MD at 0017 PATIENT NAME: VELIA ROBLES 1498 2018-11-20 21:07:00-00:00 [facility] ([facility]) EMERGENCY PROVIDER REPORT REPORT#:[id number] REPORT STATUS: Signed DATE:11/20/18 TIME:2106 PATIENT: VELIA ROBLES UNIT #: [id number] ROOM/BED: : 75 AGE: 43 SEX: M PCP PHYS: Le Burch MD SERVICE AUTHOR: Yani Gonzalez I BAND TIER * ALL edits or amendments must be made on the el [employer]/computer document * Yani Gonzalez 11/20/182106: HPI-Abd Pain [...] No STEMI Rate 53 ECG Q-T-ST - [place] T-waves peaked Re-Evaluation MDM ED Course Medication(s) [...] X1ED STA 11/20 2105 DC 11/20 IV 11/20 2206 2235 Gastrointestinal Drugs Sig/Darya Start time Last Medication Dose Route Stop Time Status Admin Ondansetron HCl 4 MG X1ED PRN PRN 11/20 2114 DC 11/20 IV 11/21 2113 223 Patient Discharge Departure Vital Signs/Condition Vital Signs [...] % (Auto) (20.5 - 51.1 %) 33.5 [place] % (Auto) (1.7 - 9.3 %) 9.0 Eos % (Auto) (0.0 - 6.0 %) 4.3 Baso % (Auto) (0.0 - 2.0 %) 0.3 Neut # (Auto) (1.8 - 7.6 K/mm3) 5.82 Lymph # (Auto) (0.6 - 3.0 K/mm3) 3.7 H [place] # (Auto) (0.2 - 1.5 K/mm3) 1.0 Eos # (Auto) (0.0 - 0.4 K/mm3) 0.5 H Baso # (Auto) (0.0 - 0.2 K/mm3) 0.0 Add Manual Diff (CRITERIA DIFF/SCN) NO Urines Urine Color (YEL/STRAW discript) YELLOW Urine Appearance (CLEAR discript) CLEAR Urine pH (5.0 - 7.0 pH UNITS) 5.5 Ur Specific Linch (1.005 - 1.030 SG) >=1.030 H Urine Protein (NEG mg/dL) NEGATIVE Urine Glucose (UA) (NEG mg/dL) NEGATIVE Urine Ketones (NEG mg/dL) NEGATIVE Urine Blood (NEG mg/DL) NEGATIVE Urine Nitrite (NEG SCREEN) NEGATIVE Urine Bilirubin (NEG mg/dL) NEGATIVE Urine Urobilinogen (<2.0 mg/dL) 0.2 Ur Leukocyte Esterase (NEGATIVE Leuk/mcL) NEGAT NACHO Recent Impressions: CAT SCAN - CT ABD PELVIS W/CONT 11/20 2340 Report Impression - Status: SIGNED Entered: 11/20/2018 2356 IMPRESSION: Moderate volume of stool throughout the colon, w ith a patulous appearance to the cecum. No bowel obstruction or acute inflammatory change. Impression By: Lucinda Ferrera M.D. ECG #2 Interpretation ECG Documented [...] symptoms should prompt an immediate return to [facility] or the closest emergency department or a call to 911. Supervising Physician Note MidLv/Doc Saw Pt 1 I have seen and evaluated [facility] patient and agree with the nurse practitioner or physician assistant executive housekeeper's docume ntation and assessment. Documentation of one or more elements of my assessment are included in the dc dical record. Scribe Statement Loren Thayer, 11/21/18 [...] t 0607 Electronically Signed by Yani Gonzalez NP on 0 11/22/18 at 1542 [facility] #: [id number] END OF REPORT 2018-11-20 21:07:00-00:00 [facility] ([facility]) EMERGENCY PROVIDER REPORT REPORT#:[id number] REPORT STATUS: Signed DATE:11/20/18 TIME:2106 PATIENT: VELIA ROBLES UNIT #: [id number] ROOM/BED: : 75 AGE: 43 SEX: M PCP PHYS: Le Burch MD SERVICE AUTHOR: Yani Gonzalez I BAND TIER * ALL edits or amendments must be made on the [employer]/computer document * Yani Gonzalez 11/20/182106: HPI-Abd Pain [...] METOCLOPRAMIDE (REGLAN) 10 MG PO QID PRN NAUSE A AND VOMITING #20 TABS Prov: 03/18/18 Review [...] 11/20/182234: [Embedded Image Not Available] Laboratory Tests: 02/11 2235 Chemistry Sodium (134 - 147 mmol/L) 139 [...] % (Auto) (20.5 - 51.1 %) 33.5 [place] % (Auto) (1.7 - 9.3 %) 9.0 Eos % (Auto) (0.0 - 6.0 %) 4.3 Baso % (Auto) (0.0 - 2.0 %) 0.3 Neut # (Auto) (1.8 - 7.6 K/mm3) 5.82 Lymph # (Auto) (0.6 - 3.0 K/mm3) 3.7 H [place] # (Auto) (0.2 - 1.5 K/mm3) 1.0 Eos # (Auto) (0.0 - 0.4 K/mm3) 0.5 H Baso # (Auto) (0.0 - 0.2 K/mm3) 0.0 Add Manual Diff (CRITERIA DIFF/SCN) NO Urines Urine Color (YEL/STRAW discript) YELLOW Urine Appearance (CLEAR discript) CLEAR Urine pH (5.0 - 7.0 pH UNITS) 5.5 Ur Specific Linch (1.005 - 1.030 SG) >=1.030 H Urine Protein (NEG mg/dL) NEGATIVE Urine Glucose (UA) (NEG mg/dL) NEGATIVE Urine Ketones (NEG mg/dL) NEGATIVE Urine Blood (NEG mg/DL) NEGATIVE Urine Nitrite (NEG SCREEN) NEGATIVE Urine Bilirubin (NEG mg/dL) NEGATIVE Urine Urobilinogen (<2.0 mg/dL) 0.2 Ur Leukocyte Esterase (NEGATIVE Leuk/mcL) NEGAT NACHO Recent Impressions: CAT SCAN - CT ABD PELVIS W/CONT 11/20 2340 Report Impression - Status: SIGNED Entered: 11/20/2018 4886 IMPRESSION: Moderate volume of stool throughout the colon, w ith a patulous appearance to the cecum. No bowel obstruction or acute inflammatory change. Impression By: IbrahimaAJVin Ferrera M.D. Imaging Statement Radiographic studies reviewed and considered in the medical decision-making. Point of Care Testing Pulse Oximetry Pulse Ox % 98 On: Room air Interpretation Interpreted by me, Pulse oximetr y normal ECG #1 Interpretation Date 11/20/18 Time 2153 Interpreted by ED physician (Dr. Diaz) NL ECG Interpretation No STEMI Rate 53 ECG Q-T-ST - [place] T-waves peaked Re-Evaluation MDM ED Course Medication(s) Ordered Medication(s) Ordered: Central Nervous System Agents Sig/Darya Start time Last Medication Dose Route Stop Time Status Admin Morphine Sulfate 4 MG X1ED STA 11/20 2105 DC IV 11/20 Diagnostic Agents Sig/Darya Start time Last Medication Dose Route Stop Time Status Admin Iopamidol 0 .STK-MED ONE 11/20 2335 DC 11/20 IV 2340 Electrolytic, Caloric, And Yrn Sig/Darya Start time Last Medication Dose Route Stop Time Status Admin Sodium Chloride 1,000 ML X1ED STA 11/20 2105 DC 11/20 IV 11/20 2205 223 Gastrointestinal Drugs Sig/Darya Start time Last Medication Dose Route Stop Time Status Admin Ondansetron HCl 4 MG X1ED PRN PRN 11/20 2114 DC 11/20 IV 11/21 2113 223 Patient Discharge Departure Vital Signs/Condition Vital Signs [...] 107/68 11/20 2351 B/P Mean 81 11/20 2351 Pulse 67 11/20 2351 Resp 16 11/20 2351 O2 Delivery Room air 11/20 2002 Temp 97.6 11/20 2002 Portions of this section were scribed by Delano Thayer on 11/21/18 at 0001 Interpretation Diagnostics Lab Results Interpretation Results ECG #2 Interpretation ECG Documented in MUSE Yes Date 11/20/18 Time 8 Interpreted by ED physician NL ECG Interpretation [...] symptoms should prompt an immediate return to [facility] or the closest emergency department or a call to 911. Supervising Physician Note MidLv/Doc Saw Pt 1 I have seen and evaluated is patient and agree with the nurse practitioner or physician assistant executive housekeeper's docume ntation and assessment. Documentation of one or more elements of my assessment are included in the dc dical record. Scribe Statement Loren Thayer, 11/21/18 [...] 0001 Electronically Signed by Yani Gonzalez I BAND TIER on 0 11/22/18 at 1542 Electronically Signed by Angela Diaz MD on at 3825 RPT #: [id number] END OF REPORT
[2023-05-27 15:09] LABS: Absolute Lymphocytes (CBC) 1.2 K/uL (0.7-4.9); Hematocrit 40.4 % (39.6-49.0); Lymphocytes % 12.6 % (15.3-44.8); MCV 92.6 fL (80-100); Platelets 208 thou/uL (152-406); RBC Red Blood Cell Count 4.36 M/uL (4.33-5.43)
[2023-05-27 15:25] LABS: Potassium 3.2 mEq/L (3.5-5.1)
--- NOTE | 2023-05-27 16:14 | RAD REPORT ---
EXAM DESCRIPTION: US - Extrem Venous W Compress Gian - 05/27/2023 3:33 pm CLINICAL HISTORY: Swelling COMPARISON: None. TECHNIQUE: Real-time sonographic evaluation of the bilateral lower extremity deep venous systems was performed. FINDINGS: Normal compressibility, flow augmentation, phasic flow and spontaneous flow is identified in both the left and right lower extremity deep venous systems. No intraluminal filling defects seen. IMPRESSION: No DVT in either lower extremity.
--- NOTE | 2023-05-27 16:20 | ER ---
Nurse's Notes [facility] Name: Matt Robles Age: 47 yrs Sex: Male : 1975 Arrival Date: 05/27/2023 Time: 13:55 Bed 13 Private MD: Diagnosis: Cellulitis of left lower limb;Cellulitis of right lower limb Presentation: 05/27 14:17 Chief complaint: Patient states: swelling to the bottom of his feet and he feels like cm10 they are "pulsating". Pt also reports leg pain. Coronavirus screen: Vaccine status: Patient reports being unvaccinated. Ebola Screen: Patient denies travel to an Ebola-affected area in the 21 days before illness onset. No symptoms or risks identified at this time. Initial Sepsis Screen: Does the patient meet any 2 criteria? HR > 90 bpm. No. Patient's initial sepsis screen is negative. Does the patient have a suspected source of infection? No. Patient's initial sepsis screen is negative. Risk Assessment: Do you want to hurt yourself or someone else? Patient reports no desire to harm self or others. Onset of symptoms was May 27, 2023. 14:17 Method Of Arrival: Ambulatory cm10 14:17 Acuity: BRENNA 3 cm10 Triage Assessment: 16:58 General: Appears in no apparent distress. comfortable, Behavior is calm, cooperative. ml4 Pain: Denies pain. Historical: - Allergies: 14:20 Toradol; cm10 - PMHx: 14:20 CYSTIC FIBROSIS; ileus; intestinal disorder; cm10 - PSHx: 14:20 1" of intestines removed; Bilateral Inguinal Hernia Repair; cm10 - Immunization history:: Adult Immunizations unknown. - Social history:: Smoking status: Patient denies any tobacco usage or history of. Screenin:59 [facility] ED Fall Risk Assessment (Adult) History of falling in the last 3 months, ml4 including since admission No falls in past 3 months (0 pts) Confusion or Disorientation No (0 pts) Intoxicated or Sedated No (0 pts) Impaired Gait No (0 pts) Mobility Assist Device Used No (0 pt) Altered Elimination No (0 pt) Score/Fall Risk Level 0 - 2 = Low Risk. Abuse screen: Denies threats or abuse. Nutritional screening: No deficits noted. Tuberculosis screening: No symptoms or risk factors identified. Vital Signs: 14:17 BP 124 / 83; Pulse 94; Resp 18; Temp 99.6; Pulse Ox 99% ; Weight 68.04 kg; Height 6 ft. cm10 1 in. ; Pain 6/10; 16:58 BP 133 / 84; Pulse 87; Resp 18; Pulse Ox 99% on R/A; Pain 0/10; ml4 14:17 Body Mass Index 19.79 (68.04 kg, 185.42 cm) cm10 14:17 Pain Scale: Adult cm10 16:58 Pain Scale: Adult ml4 ED Course: 13:57 Patient arrived in ED. ts1 13:59 Rhonda Britt FNP-C is PHCP. kb 14:00 Morteza Lee MD is Attending Physician. kb 14:20 Triage completed. cm10 14:20 Arm band placed on Patient placed in waiting room. cm10 15:01 Blood Culture Adult (2) Sent. bc6 15:01 Lactate w/ 2H reflex if indic. Sent. bc6 15:02 Basic Metabolic Panel Sent. bc6 15:02 CBC with Diff Sent. bc6 15:02 Inserted saline lock: 22 gauge in left forearm, using aseptic technique. Blood bc6 collected. 15:34 US Extremity Venous W Compression Gian In Process Unspecified. EDMS 15:42 Kristen, JADIII, Toni, RN is Primary Nurse. ml4 16:59 No apparent distress. Awaiting disposition. ml4 16:59 Patient has correct armband on for positive identification. Bed in low position. Call ml4 light in reach. Side rails up X2. Provided Education on: N/A. 16:59 No provider procedures requiring assistance completed. IV is patent, is intact. ml4 17:18 IV discontinued, intact, No redness/swelling at site. Pressure dressing applied. ml4 Administered Medications: 16:39 Drug: Potassium Chloride PO 40 mEq Route: PO; ml4 16:39 Drug: Cephalexin PO 500 mg Route: PO; ml4 Medication: 17:00 VIS not applicable for this client. ml4 Outcome: 16:19 Discharge ordered by . kb 16:59 Condition: good ml4 17:24 Patient left the ED. ml4 Signatures: Dispatcher [employer] EDMS Rhonda Britt FNP-C MECHANICAL PRODUCT ENGINEER-Brooklyn Mcmahan bc6 Edith Bartholomew PAS PAS ts1 Mirian Arreguin, RN RN cm10 Kristen, RNIII, Toni, RN RN ml4
--- NOTE | 2023-05-27 16:20 | EDPHYS ---
Physician Documentation [facility] Name: Matt Robles Age: 47 yrs Sex: Male : 1975 Arrival Date: 05/27/2023 Time: 13:55 Bed 13 Private MD: ED Physician Morteza Lee HPI: 05/27 16:58 This 47 yrs old Black Male presents to ER via Ambulatory with complaints of Feet kb Swelling, Leg Swelling. 16:58 The patient presents with swelling. The complaints affect the left foot and right foot. kb Context: The problem was sustained at home, resulted from an unknown cause, the patient can fully bear weight, the patient is able to ambulate. Onset: The symptoms/episode began/occurred yesterday. Modifying factors: The symptoms are alleviated by nothing. the symptoms are aggravated by nothing. Associated signs and symptoms: Pertinent positives: swelling, Pertinent negatives calf tenderness, fever, nausea, numbness, rash, tingling, vomiting, warmth, weakness. Treatment prior to arrival includes: no previous treatment. Severity of symptoms: At their worst the symptoms were moderate, in the emergency department the symptoms are unchanged. The patient has not experienced similar symptoms in the past. The patient has not recently seen a physician. Patient reports swelling to bilateral feet and ankles started yesterday. Reports he recently traveled to [place] via [employer] bus and returned yesterday. Denies fever, shortness of breath, chest pain. Historical: - Allergies: 14:20 Toradol; cm10 - PMHx: 14:20 CYSTIC FIBROSIS; ileus; intestinal disorder; cm10 - PSHx: 14:20 1" of intestines removed; Bilateral Inguinal Hernia Repair; cm10 - Immunization history:: Adult Immunizations unknown. - Social history:: Smoking status: Patient denies any tobacco usage or history of. ROS: 16:53 Constitutional: Negative for fever, chills, and weight loss. kb 16:53 MS/extremity: Positive for swelling, tenderness, of the right leg and left leg. 16:53 All other systems are negative. Exam: 16:53 Constitutional: This is a well developed, well nourished patient who is awake, alert, kb and in no acute distress. Head/Face: Normocephalic, atraumatic. ENT: Moist Mucous membranes Cardiovascular: Regular rate and rhythm with a normal S1 and S2. No gallops, murmurs, or rubs. No pulse deficits. Respiratory: Respirations even and unlabored. No increased work of breathing. Talking in full sentences MS/ Extremity: Pulses equal, no cyanosis. Neurovascular intact. Full, normal range of motion. Neuro: Awake and alert, GCS 15, oriented to person, place, time, and situation. Moves all extremities. Normal gait. 16:53 Skin: cellulitis, that is mild, on the right foot and left foot. Vital Signs: 14:17 BP 124 / 83; Pulse 94; Resp 18; Temp 99.6; Pulse Ox 99% ; Weight 68.04 kg; Height 6 ft. cm10 1 in. ; Pain 6/10; 16:58 BP 133 / 84; Pulse 87; Resp 18; Pulse Ox 99% on R/A; Pain 0/10; ml4 14:17 Body Mass Index 19.79 (68.04 kg, 185.42 cm) cm10 14:17 Pain Scale: Adult cm10 16:58 Pain Scale: Adult ml4 MDM: 14:00 Patient medically screened. kb 16:53 Differential diagnosis: cellulitis, dvt, gout. Data reviewed: vital signs, nurses kb notes. Counseling: I had a detailed discussion with the patient and/or guardian regarding the historical points, exam findings, and any diagnostic results supporting the discharge/admit diagnosis, lab results, radiology results, the need for outpatient follow up, a family practitioner, to return to the emergency department if symptoms worsen or persist or if there are any questions or concerns that arise at home. 05/27 14:22 Order name: CBC with Diff; Complete Time: 15:14 kb 05/27 14:22 Order name: Basic Metabolic Panel; Complete Time: 16:11 kb 05/27 14:23 Order name: Lactate w/ 2H reflex if indic.; Complete Time: 16:11 kb 05/27 14:23 Order name: Blood Culture Adult (2) kb 05/27 14:22 Order name: US Extremity Venous W Compression Gian; Complete Time: 16:18 kb 05/27 14:22 Order name: IV Start; Complete Time: 15:01 kb Administered Medications: 16:39 Drug: Potassium Chloride PO 40 mEq Route: PO; ml4 16:39 Drug: Cephalexin PO 500 mg Route: PO; ml4 Disposition: 17:51 Co-signature as Attending Physician, Morteza Lee MD I reviewed the patient's care rn provided by the Advanced Practice Provider and agree with the diagnosis and treatment plan. Disposition Summary: 05/27/23 16:19 Discharge Ordered Location: Home Condition: Stable kb Diagnosis - Cellulitis of left lower limb kb - Cellulitis of right lower limb kb Followup: kb - With: Emergency Department - When: As needed - Reason: Worsening of condition Followup: kb - With: Private Physician - When: 2 - 3 days - Reason: Recheck today's complaints, Continuance of care, Re-evaluation by your physician Discharge Instructions: - Discharge Summary Sheet kb - Cellulitis, Adult, [id number] kb Forms: - Medication Reconciliation Form kb - Thank You Letter kb - Antibiotic Education kb - Prescription Opioid Use kb - Patient Portal Instructions kb - Leadership Thank You Letter kb Prescriptions: - Cephalexin 500 mg Oral Capsule - take 1 capsule by ORAL route every 8 hours for 10 days; 30 capsule; Refills: 0, kb Product Selection Permitted Signatures: Dispatcher [employer] EDRhonda Godinez, CLERICAL ADMINISTRATIVE ASSISTANT-C CLERICAL ADMINISTRATIVE ASSISTANT-Ckb Morteza Lee MD MD rn Martinez, Clarissa RN RN cm10 Kristen, JADIII, Toni, RN RN ml4
[2023-05-27] MEDS ORDERED: POTASSIUM CL SA 10 MEQ TAB PO ONE (16:33)
[2023-05-27] MEDS ORDERED: CEPHALEXIN 250 MG CAP ONE (16:34)
[2023-05-27 17:55] VITALS: TEMP 99.6; O2SAT 99
[2023-05-27 17:58] VITALS: BP 133/84
== END 2023-05-27 17:24 | disposition home or self-care (01) ==
LOC: ER 13:55
DX: L03.116 Cellulitis of left lower limb (principal); L03.115 Cellulitis of right lower limb; Z88.5 Allergy status to narcotic agent
CPT/HCPCS: 36415; 80048; 83605; 85025; 87040; 93970; 99283

== ENCOUNTER 2023-08-04 15:55 | Emergency (ER) | payer OTHER ==
--- OUTSIDE RECORDS SUMMARY | 2023-08-04 16:16 | XMS REPORT | Continuity of Care Document ---
:1975 Author Organization [facility] t Address [address] [place] [address] [address] [place] [address] Care Team Providers Name Role Phone RADHA BURCH Primary Care Physician Unavailable HONEY PAINTER Attending Clinician Unavailable AKIN THOMAS Attending Clinician Unavailable Marcin GUERRERO, Radha Hutchison Attending Clinician Shivani Pfeiffer MD Attending Clinician Madina GUERRERO, Honey Omalley Attending Clinician Ramon Tamez MD Attending Clinician Jone GUERRERO, Sofiya Faith Attending Clinician [phone] Mari GUERRERO, Kari Weeks Attending Clinician [phone] 1 La GUERRERO, Jose Attending Clinician Sharyn Rodriguez MD Attending Clinician SHARYN RODRIGUEZ Attending Clinician Unavailable ZaidawilianPhil morfin Attending Clinician Martha GUERRERO, Stefano In H Attending Clinician STEFANO BRUMFIELD IN Attending Clinician Unavailable Bud GUERRERO, Jesus Woodard Attending Clinician [phone] Chester GUERRERO, Debi Attending Clinician Khanh GUERRERO, Sandoval Rodríguez Attending Clinician [phone] SANDOVAL LIPSCOMB Attending Clinician Unavailable Rupesh WEST, Oksana Lewis Attending Clinician [phone] DEBI BRIGGS Attending Clinician Unavailable Kamryn GUERRERO, Meredith Arredondo Attending Clinician [phone] Roberth GUERRERO, Chaparro Clay Attending Clinician Larry GUERRERO, Coty Phelan Attending Clinician [phone] Tonny Meneses MD Attending Clinician TONNY MENESES Attending Clinician Unavailable Amor Napier MD Attending Clinician Jacob Calle DO Attending Clinician Saul Ramsey MD Attending Clinician SAUL RAMSEY Attending Clinician Unavailable Brad Galindo DO Attending Clinician Pratik Layton MD Attending Clinician [phone] PRATIK LAYTON Attending Clinician Unavailable Puma Kent MD Attending Clinician PUMA KENT Attending Clinician Unavailable WILLIS GEORGE Attending Clinician Unavailable Balwinder Rebolledo MD Attending Clinician Charlene Pearson MD Attending Clinician CHARLENE PEARSON Attending Clinician Unavailable SAMMI CABELLO Attending Clinician Unavailable RADHA BURCH Attending Clinician Unavailable ELIGIO ROSENTHAL Attending Clinician Unavailable AMOR NAPIER Attending Clinician Unavailable CYN RECINSO Attending Clinician Unavailable Shannon Momin DO Attending [...] Unavailable ANALILIA PRESLEY Admitting Clinician Unavailable BOOGIE PU Admitting Clinician Unavailable SAUL RAMSEY Admitting Clinician Unavailable GRANT CLEMENTS Admitting Clinician Unavailable JANAY JOSEPH Admitting Clinician Unavailable JAMAR HARPER Admitting Clinician Unavailable CARLEEN MILLER Admitting Clinician Unavailable ANICETO KRUSE Admitting Clinician Unavailable IVIS PUGH Admitting Clinician Unavailable TEOFILO BAIRD Admitting Clinician Unavail able Payers Payer Name Policy Type Policy Number Effective Date Expiration Date S ource IGOR ADÁN STAR [id number] 2021 PLAN 00:00:00 UNITED MEDICARE [id number] 2022 HMO 00:00:00 [place] [id number] 2021 00:00:00 MEDICARE A B [id number] 2020 00:00:00 CDC REVIEW [id number] 2020 00:00:00 Problems Condition Condition Condition Status Onset Resolution Last Treating Co mments Source Name Details Category Date Date Treatment Clinician Date LIONEL LIONEL Disease Recurre [facility] ([facility]al (distal [facility] 7-03 [facility] intestinal intestinal 00:00: Me dical obstructio obstructio 00 Ce nter n n syndrome) syndrome) Constipati Constipati Disease Active [facility] Center Ileus Ileus Disease Recurre 2021-[address] [facility] [...] s pain pain 00:00: Medical 00 Center Hydronephr Hydronephr Disease Active [facility] osis with osis with 04-17 [facility] ureteropel ureteropel 00:00: Me dical angel angel 00 Center junction junction (UPJ) (UPJ) obstructio obstructio n n Bilateral Bilateral Disease Active [facility] renal renal 04-17 [facility] stones stones 00:00: Medical 00 [place] Hydrourete Hydrourete Disease Active [facility] r, left r, left 04-17 [facility] Hydronephr Hydronephr Disease Active [facility] osis with osis with 04-17 [facility] ureteropel ureteropel 00:00: Me dical angel angel 00 Center junction junction (UPJ) (UPJ) obstructio obstructio n n Acute left Acute left Disease Active [facility] flank pain flank pain 04-17 [facility] kes 00:00: Medical 00 Center Gastrointe Gastrointe Disease Active [facility] stinal stinal 8-23 [facility] dysmotilit dysmotilit 00:00: Me dical y y 00 Center Hyponatrem Hyponatrem Disease Active [facility] ia ia 6-15 [facility] Center MATHEW (acute MATHEW (acute Disease Active [facility] kidney kidney 6-13 [facility] injury) injury) 00:00: Medical 00 Center Bronchiect Bronchiect Disease Recurre [facility] asis asis nce 6-13 [facility] 00 Center Hyponatrem Hyponatrem Disease Active [facility] ia ia 6-13 [facility] 00:[facility] 00 Center Other Other Disease Recurre [facility] constipati constipati nce 1-17 [facility]re k[facility] on on 00:00: Medical 00 Center Partial Partial Disease Recurre 2017-[address] [facility] [...] nce 9-20 [facility] 00:[facility]: Medical 00 Center No known No known Disease Unive rs active active ity of problems problems [facility] Abdominal Abdominal Disease Resolve 2022-09-26 2022-09-[address] [facility] [address] distention distention d 5-13 00:00:00 07:23:26 [facility] 00:[facility]: [facility] 00 [place] LIONEL LIONEL Disease Resolve 2017-102022-09-24 2022-09-[address] [facility] [address] (distal (distal d 0-08 00:00:00 16:04:41 [facility] intestinal intestinal 00:00: Me dical obstructio obstructio 00 Ce nter n n syndrome) syndrome) Allergies, Adverse Reactions, Alerts Allergy Allergy Status Severity Reaction(s) Onset Inactive Treating Comm ents Source Name Type Date Date Clinician [place] Propensi Active Hives Univer s c ty to 09 ity of adverse 00:00: [place] reaction 00 [facility] KET[place]OLA DRUG Active Hives Univers C INGREDI 1 ity of 00:00: [place] 00 [facility] [place] Drug Active Hives [facility] Allergy - [facility] 00:00: Medical 00 [place] KETOROLA Allergy Active High Hives [facility] C 7- [facility] 00:00: Medical 00 [place] No Known DA Active [facility] Allergie 6-08 [place] [facility] 00:00: d 00 Medical [place] NO KNOWN Allergy Active [facility] Family History Family Member Diagnosis Comments Start Date Stop Date Source Natural brother Cystic fibrosis [facility] Natural mother Lupus [facility] Natural father Heart disease [facility] Social History Social Habit Start Date Stop Date Quantity Comments Source [facility] Alcohol intake 2023-02-20 2023-02-20 [facility]00 non-drinker of Medical Ce nter alcohol (finding) History [facility] 2022-09-08 2022-09-08 1 [facility] Housing Unable to 00:00:00 00:00:00 Medical Center Pay History [facility] 2022-09-08 2022-09-[address] [facility] 00:00:00 00:00:00 Medical Ce nter Lived History [facility] 2022-09-08 2022-09-[address] [facility] Homeless 00:00:00 00:00:00 Medical Center Last Year History [facility] 2022-09-08 2022-09-[address] [facility] Transport Med 00:00:00 00:00:[address] Exposure to 2022-08-27 2022-09-06 Not sure [facility] SARS-CoV-2 (event) 00:00:00 20:59:00 Medica l Center Tobacco use and 2018-06-29 2018-06-29 Smokeless [address] [facility] exposure 00:00:00 00:00:00 non-user Medical Center Sex Ass[birth year] [facility] 00:00:00 00:00:00 Medical Center Smoking Status Start Date Stop Date Source Unknown if ever smoked [facility] Never smoked tobacco [facility] Medications Ordered Filled Start Stop Current Ordering Indication Dosage Frequency Signature Comments Components Source Medication Medication Date Date Medication? Clinician (SIG) Name Name [facility] Yes 1{capsu Q.5D Take [address] [facility] [facility] [...] times COMPLETE daily. FORMULATION D5000 ORAL) pedi 2023-0 Yes 1{capsu Q.5D Take [address] multivit 7-08 le} capsule by [facility] 22/vit 17:06: mouth 2 Medical D3/vit K 46 (two) Center (MVW times COMPLETE daily. FORMULATION D5000 ORAL) pedi 3-0 Yes 1{capsu Q.5D Take [address] multivit 7-08 le} capsule by [facility] 22/vit 17:06: mouth 2 Medical D3/vit K 46 (two) Center (MVW times COMPLETE daily. FORMULATION D5000 ORAL) pedi 3-0 Yes 1{capsu Q.5D Take [address] multivit 7-08 le} capsule by [facility] 22/vit 17:06: mouth 2 Medical D3/vit K 46 (two) Center (MVW times COMPLETE daily. FORMULATION D5000 ORAL) tobramycin, 3-0 Yes 300mg Q.5D Take [address] PF, (LAVON) 7-08 (300 mg [facility] 300 mg/5 mL 00:00: total) by M edical nebulizer 00 [address] er solution on 2 (two) times daily One month on, one month off. tobramycin, 3-0 Yes 300mg Q.5D Take [address] [address] PF, (LAVON) 7-08 (300 mg [facility] 300 mg/5 mL 00:00: total) by M edical nebulizer [address] er solution on 2 (two) times daily One month on, one month off. tobramycin, 3-0 Yes 300mg Q.5D Take [address] [address] PF, (LAVON) 7-08 (300 mg [facility] 300 mg/5 mL 00:00: total) by M edical nebulizer [address] er solution on 2 (two) times daily One month on, one month off. tobramycin, 3-0 Yes 300mg Q.5D Take [address] [address] PF, (LAVON) 7-08 (300 mg [facility] 300 mg/5 mL 00:00: total) by M edical nebulizer [address] er solution on 2 (two) times daily One month on, one month off. tobramycin, 3-0 Yes 300mg Q.5D Take [address] [address] PF, (LAVON) 7-08 (300 mg [facility] 300 mg/5 mL 00:00: total) by M edical nebulizer [address] er solution on 2 (two) times daily One month on, one month off. tobramycin, 3-0 Yes 300mg Q.5D Take [address] [address] PF, (LAVON) 7-08 (300 mg [facility] 300 mg/5 mL 00:00: total) by M edical nebulizer [address] er solution on 2 (two) times daily One month on, one month off. tobramycin, 3-0 Yes 300mg Q.5D Take [address] PF, (LAVON) 7-08 (300 mg [facility] 300 mg/5 mL 00:00: total) by M edical nebulizer [address] er solution on 2 (two) times daily One month on, one month off. hydrocortis 2022-0 2023- No Q.5D Place [facility] one 7- 07-18 rectally 2 [facility] (ANUSOL-HC) 00:00: 23:59 (two) Medi jf 2.5 % 00 :00 times Center rectal daily for cream 10 days. hydrocortis 2022-0 2023- No Q.5D Place [facility] one 7- 07-18 rectally 2 [facility] (ANUSOL-HC) 00:00: 23:59 (two) Medi jf 2.5 % 00 :00 times Center rectal daily for cream 10 days. hydrocortis 3-0 2023- No Q.5D Place [facility] one 7- 07-18 rectally 2 [facility] (ANUSOL-HC) 00:00: 23:59 (two) Medi jf 2.5 % 00 :00 times Center rectal daily for cream 10 days. hydrocortis 3-0 2023- No Q.5D Place [facility] one 7- 07-18 rectally 2 [facility] (ANUSOL-HC) 00:00: 23:59 (two) Medi jf 2.5 % 00 :00 times Center rectal daily for cream 10 days. hydrocortis 3-0 2023- No Q.5D Place [facility] one 7- 07-18 rectally 2 [facility] (ANUSOL-HC) 00:00: 23:59 (two) Medi jf 2.5 % 00 :00 times Center rectal daily for cream 10 days. hydrocortis 2023-0 2023- No Q.5D Place [facility] one 04-16 07-18 rectally 2 [facility] (ANUSOL-HC) 00:00: 23:59 (two) Medi jf 2.5 % 00 :00 times Center rectal daily for cream 10 days. hydrocortis 2023-0 2023- No Q.5D Place [facility] one 04-16 07-18 rectally 2 [facility] (ANUSOL-HC) 00:00: 23:59 (two) Medi jf 2.5 % 00 :00 times Center rectal daily for cream 10 days. albuterol 2023-0 2023- No 2.5mg Q.5D Take [address] (PROVENTIL) -29 03-19 (2.5 mg [facility] 2.5 mg /3 00:00: 23:59 total) by Me dical mL (0.083 00 :[address] er %) on in the nebulizer morning solution and 3 mLs (2.5 mg total) before bedtime. Do all this for 30 days. albuterol 2023-0 2023- No 2.5mg Q.5D Take [address] [address] (PROVENTIL) -29 03-19 (2.5 mg [facility] 2.5 mg /3 00:00: 23:59 total) by Me dical mL (0.083 00 :[address] er %) on in the nebulizer morning solution and 3 mLs (2.5 mg total) before bedtime. Do all this for 30 days. albuterol 2023-0 2023- No 2.5mg Q.5D Take [address] [address] (PROVENTIL) -29 03-19 (2.5 mg [facility] 2.5 mg /3 00:00: 23:59 total) by Me dical mL (0.083 00 :[address] er %) on in the nebulizer morning solution and 3 mLs (2.5 mg total) before bedtime. Do all this for 30 days. albuterol 2023-0 2023- No 2.5mg Q.5D Take [address] (PROVENTIL) 5-29 03-19 (2.5 mg [facility] 2.5 mg /3 00:00: 23:59 total) by Me dical mL (0.083 00 :[address] er %) on in the nebulizer morning solution and 3 mLs (2.5 mg total) before bedtime. Do all this for 30 days. albuterol 2023-0 2023- No 2.5mg Q.5D Take [address] [address] (PROVENTIL) 5-20 -19 (2.5 mg [facility] 2.5 mg /3 00:00: 23:59 total) by Me dical mL (0.083 00 :[address] er %) on in the nebulizer morning solution and 3 mLs (2.5 mg total) before bedtime. Do all this for 30 days. albuterol 3-0 2023- No 2.5mg Q.5D Take [address] [address] (PROVENTIL) 5-20 -19 (2.5 mg [facility] 2.5 mg /3 00:00: 23:59 total) by Me dical mL (0.083 00 :[address] er %) on in the nebulizer morning solution and 3 mLs (2.5 mg total) before bedtime. Do all this for 30 days. albuterol 3-0 2023- No 2.5mg Q.5D Take [address] [address] (PROVENTIL) 5-20 -19 (2.5 mg [facility] 2.5 mg /3 00:00: 23:59 total) by Me dical mL (0.083 00 :[address] %) on in the nebulizer morning solution and 3 mLs (2.5 mg total) before bedtime. Do all this for 30 days. albuterol 2023-0 Yes 2.5mg Q.5D Inhale [address] (PROVENTIL) 5-17 mLs (2.5 [facility] 2.5 mg /3 00:00: mg total) Med ical mL (0.083 00 by mouth Center %) via nebulizer inhaler 2 solution (two) times daily. albuterol 2023-0 Yes 2.5mg Q.5D Inhale [address] [facility] (PROVENTIL) 5-17 mLs (2.5 [facility] 2.5 mg /3 00:00: mg total) Med ical mL (0.083 00 by mouth Center %) via nebulizer inhaler 2 solution (two) times daily. albuterol 2023-0 Yes 2.5mg Q.5D Inhale [address] [facility] (PROVENTIL) 5-17 mLs (2.5 [facility] 2.5 mg /3 00:00: mg total) Med ical mL (0.083 00 by mouth Center %) via nebulizer inhaler 2 solution (two) times daily. albuterol 2023-0 Yes 2.5mg Q.5D Inhale [address] [address] (PROVENTIL) 5-17 mLs (2.5 [facility] 2.5 mg /3 00:00: mg total) Med ical mL (0.083 00 by mouth Center %) via nebulizer inhaler 2 solution (two) times daily. albuterol 2023-0 Yes 2.5mg Q.5D Inhale [address] [facility] [address] (PROVENTIL) 5-17 mLs (2.5 [facility] 2.5 mg /3 00:00: mg total) Med ical mL (0.083 00 by mouth Center %) via nebulizer inhaler 2 solution (two) times daily. albuterol 2023-0 Yes 2.5mg Q.5D Inhale [address] [address] (PROVENTIL) 5-17 mLs (2.5 [facility] 2.5 mg /3 00:00: mg total) Med ical mL (0.083 00 by mouth Center %) via nebulizer inhaler 2 solution (two) times daily. albuterol 2023-0 Yes 2.5mg Q.5D Inhale [address] [facility] [facility] [...] Take [address] (Trulance) 2-03 by mouth [facility] 3 mg Tab 14:02: 00:00 daily. Medica l 54 :00 [facility] 2021-10 No 50mg Q.5D Take [address] (Ibsrela) 2-03 by mouth 2 Armando es 50 mg Tab 14:02: 00:00 (two) Medica l 54 :00 times Center daily. plecanatide 2021-10- No 3mg QD Take [address] (Trulance) 2 12-03 by mouth [facility] 3 mg Tab 14:02: 00:00 daily. Medica l 54 :00 [facility] 2021-10- No 50mg Q.5D Take [address] (Ibsrela) 2 12-03 by mouth 2 Armando es 50 mg Tab 14:02: 00:00 (two) Medica l 54 :00 times Center daily. plecanatide 2021-10- No 3mg QD Take [address] [address] (Trulance) 11-12 by mouth [facility] 3 mg Tab 14:02: 00:00 daily. Medica l 54 :00 [facility] 2021-10- No 50mg Q.5D Take [address] (Ibsrela) 11-12 by mouth 2 Armando es 50 mg Tab 14:02: 00:00 (two) Medica l 54 :00 times Center daily. plecanatide 2021-10- No 3mg QD Take [address] [address] (Trulance) 11-12 by mouth [facility] 3 mg Tab 14:02: 00:00 daily. Medica l 54 :00 [facility] 2021-10- No 50mg Q.5D Take [address] (Ibsrela) 11-12 by mouth 2 Armando es 50 mg Tab 14:02: 00:00 (two) Medica l 54 :00 times Center daily. plecanatide 2021-10- No 3mg QD Take [address] [address] (Trulance) 11-12 by mouth [facility] 3 mg Tab 14:02: 00:00 daily. Medica l 54 :00 [facility] 2021-10- No 50mg Q.5D Take [address] (Ibsrela) 11-12 by mouth 2 [facility] es 50 mg Tab 14:02: 00:00 (two) Medica l 54 :00 times Center daily. plecanatide 2021-10- No 3mg QD Take [address] [address] (Trulance) 11-12 by mouth [facility] 3 mg Tab 14:02: 00:00 daily. Medica l 54 :00 [facility] 2021-10- No 50mg Q.5D Take [address] (Ibsrela) 209-11 by mouth 2 Armando es 50 mg Tab 14:02: 00:00 (two) Medica l 54 :00 times Center daily. plecanatide 2021-10- No 3mg QD Take [address] [address] (Trulance) 2-09-11 by mouth [facility] 3 mg Tab 14:02: 00:00 daily. Medica l 54 :00 [facility] 2021-10 No 50mg Q.5D Take [address] (Ibsrela) 11-12 by mouth 2 [facility] es 50 mg Tab 14:02: 00:00 (two) Medica l 54 :00 times Center daily. plecanatide 2021-10- No 3mg QD Take [address] [address] (Trulance) 11-12 by mouth [facility] 3 mg Tab 14:02: 00:00 daily. Medica l 54 :00 [facility] 2021-10 No 50mg Q.5D Take [address] (Ibsrela) 11-12 by mouth 2 [facility] es 50 mg Tab 14:02: 00:00 (two) Medica l 54 :00 times Center daily. plecanatide 2021-10 No 3mg QD Take [address] [address] (Trulance) 11-12 by mouth [facility] 3 mg Tab 14:02: 00:00 daily. Medica l 54 :00 [facility] 2021-10 No 50mg Q.5D Take [address] (Ibsrela) 11-12 by mouth 2 [facility] es 50 mg Tab 14:02: 00:00 (two) Medica l 54 :00 times Center daily. plecanatide 2021-10- No 3mg QD Take [address] [address] (Trulance) 11-12 by mouth [facility] 3 mg Tab 14:02: 00:00 daily. Medica l 54 :00 [facility] 2021-10- No 50mg Q.5D Take [address] (Ibsrela) 11-12 by mouth 2 [facility] 50 mg Tab 14:02: 00:00 (two) Medica l 54 :00 times Center daily. plecanatide 2021-10- No 3mg QD Take [address] [address] (Trulance) 11-12 by mouth [facility] 3 mg Tab 14:02: 00:00 daily. Medica l 54 :00 [facility] 2021-10- No 50mg Q.5D Take [address] (Ibsrela) 11-12 by mouth 2 [facility] es 50 mg Tab 14:02: 00:00 (two) Medica l 54 :00 times Center daily. plecanatide 2021-10- No 3mg QD Take [address] [address] (Trulance) 11-12 by mouth [facility] 3 mg Tab 14:02: 00:00 daily. Medica l 54 :00 [facility] No 50mg Q.5D Take [address] (Ibsrela) 11-12 by mouth 2 Armando es 50 mg Tab 14:02: 00:00 (two) Medica l 54 :00 times Center daily. plecanatide 2021-10- No 3mg QD Take [address] [address] (Trulance) 11-12 by mouth [facility] 3 mg Tab 14:02: 00:00 daily. Medica l 54 :00 [facility] No 50mg Q.5D Take [address] (Ibsrela) 11-12 by mouth 2 [facility] es 50 mg Tab 14:02: 00:00 (two) Medica l 54 :00 times Center daily. plecanatide 2021-10 No 3mg QD Take [address] [address] (Trulance) 11-12 by mouth [facility] 3 mg Tab 14:02: 00:00 daily. Medica l 54 :00 [facility] 2021-10 No 50mg Q.5D Take [address] (Ibsrela) 11-12 by mouth 2 [facility] es 50 mg Tab 14:02: 00:00 (two) Medica l 54 :00 times Center daily. plecanatide 2021-10- No 3mg QD Take [address] [address] (Trulance) 11-12 by mouth [facility] 3 mg Tab 14:02: 00:00 daily. Medica l 54 :00 [facility] 2021[facility]- No 50mg Q.5D Take [address] (Ibsrela) 2-03 12-03 by mouth 2 [facility] es 50 mg Tab 14:02: 00:00 ([facility]) Medica l 54 :00 times Center daily. tenapanor 2021-10 Yes 50mg Q.5D Take [address] (Ibsrela) 2-03 by mouth 2 [facility] 50 mg Tab 00:00: (two) Medical 00 times [place] daily. plecanatide 2021-10 Yes 3mg QD Take [address] (Trulance) 2-03 by mouth [facility] 3 mg Tab 00:00: daily. [address] tenapanor 2021-10 Yes 50mg Q.5D Take [address] (Ibsrela) 2-03 by mouth 2 [facility] 50 mg Tab 00:00: (two) [facility] 00 times [place] daily. plecanatide 2021-10 Yes 3mg QD Take [address] (Trulance) 2-03 by mouth [facility] 3 mg Tab 00:00: daily. [address] 2021-10 Yes 50mg Q.5D Take [address] (Ibsrela) 2-03 by mouth 2 [facility] 50 mg Tab 00:00: (two) [facility] 00 times [place] daily. plecanatide 2021-10 Yes 3mg QD Take [address] (Trulance) 2-03 by mouth [facility] 3 mg Tab 00:00: daily. [address] 2021-10 Yes 50mg Q.5D Take [address] (Ibsrela) 2-03 by mouth 2 [facility] 50 mg Tab 00:00: (two) [facility] 00 times [place] daily. plecanatide 2021-10 Yes 3mg QD Take [address] (Trulance) 2-03 by mouth [facility] 3 mg Tab 00:00: daily. [address] 2021-10 Yes 50mg Q.5D Take [address] (Ibsrela) 2-03 by mouth 2 [facility] 50 mg Tab 00:00: (two) [facility] 00 times [place] daily. plecanatide 2021-10 Yes 3mg QD Take [address] (Trulance) 2-03 by mouth [facility] 3 mg Tab 00:00: daily. [address] 2021-10 Yes 50mg Q.5D Take [address] (Ibsrela) 2-03 by mouth 2 [facility] 50 mg Tab 00:00: (two) Medical 00 times [place] daily. plecanatide 2021-10 Yes 3mg QD Take [address] (Trulance) 2-03 by mouth [facility] 3 mg Tab 00:00: daily. [address] tenapanor 2021-10 Yes 50mg Q.5D Take [address] (Ibsrela) 2-03 by mouth 2 [facility] 50 mg Tab 00:00: (two) [facility] 00 times [place] daily. plecanatide 2021-10 Yes 3mg QD Take [address] (Trulance) 2-03 by mouth [facility] 3 mg Tab 00:00: daily. [address] tenapanor 2021-10 Yes 50mg Q.5D Take [address] (Ibsrela) 2-03 by mouth 2 [facility] 50 mg Tab 00:00: (two) [facility] 00 times [place] daily. plecanatide 2021-10 Yes 3mg QD Take [address] (Trulance) 2-03 by mouth [facility] 3 mg Tab 00:00: daily. [address] plecanatide 2021-10- No 3mg QD Take [address] (Trulance) 2-03 07-03 by mouth [facility] 3 mg Tab 00:00: 00:00 daily. Medica l 00 :00 [place] plecanatide 2021-10- No 3mg QD Take [address] (Trulance) 2-03 07-03 by mouth [facility] 3 mg Tab 00:00: 00:00 daily. Medica l 00 :00 [place] plecanatide 2021-10- No 3mg QD Take [address] (Trulance) 2-03 07-03 by mouth [facility] 3 mg Tab 00:00: 00:00 daily. Medica l 00 :00 [place] plecanatide 2021-10- No 3mg QD Take [address] (Trulance) 2-03 07-03 by mouth [facility] 3 mg Tab 00:00: 00:00 daily. Medica l 00 :00 [place] plecanatide 2021-10- No 3mg QD Take 3 [...] daily. Medica l 00 :00 Center tenapanor 2021-10- No 50mg Q.5D [...] [address] (Ibsrela) 11-12 05-14 by mouth 2 [facility] 50 mg Tab 00:00: 00:00 (two) Medica l 00 :00 times Center daily. tenapanor 2021-10- No 50mg Q.5D Take [address] (Ibsrela) 11-12-14 by mouth 2 [facility] 50 mg Tab 00:00: 00:00 (two) Medica l 00 :00 times Center daily. tenapanor 2021-10 No 50mg Q.5D Take 50 [...] e glycol 9-18 09-18 mLs by [facility] (ColleenLY,N 00:00: 23:59 mouth once Medical uLYTELY) 00 [...] Center packet daily for 3 days. polyethylen 2021-2021- No 34g Q.5D Take [address] e glycol 9-13 09-16 by mouth 2 [facility] (GLYCOLAX) 00:00: 23:59 (two) Medic al 17 gram 00 :00 times Center packet daily for 3 days. polyethylen 2021-2021- No 34g Q.5D Take [address] e glycol 9- 09-16 by mouth 2 [facility] (GLYCOLAX) 00:00: 23:59 (two) Medic al 17 gram 00 :00 times Center packet daily for 3 days. polyethylen 2021-0 2021- No 34g Q.5D Take [address] e glycol 9- 09-16 by mouth 2 [facility] (GLYCOLAX) 00:00: 23:59 (two) Medic al 17 gram 00 :00 times Center packet daily for 3 days. polyethylen 2021-2021- No 34g Q.5D Take [address] e glycol 9-13 09-16 by mouth 2 [facility] (GLYCOLAX) 00:00: 23:59 (two) Medic al 17 gram 00 :00 times Center packet daily for 3 days. polyethylen 2021-2021- No 34g Q.5D Take 34 g [facility] [...] Center packet daily for 3 days. polyethylen 2022- No 34g Q.5D Take [address] e glycol 06-2216 by mouth 2 [facility] (GLYCOLAX) 00:00: 23:59 (two) Medic al 17 gram 00 :00 times Center packet daily for 3 days. pedi Yes 1{capsu Q.5D Take [address] multivit 3-02 le} capsule by [facility] 22/vit 14:47: mouth 2 Medical D3/vit K 56 (two) Center (MVW times COMPLETE daily. FORMULATION D5000 ORAL) polyethylen Yes 4000mL Take 4,[address] e glycol 3-01 mLs by [facility] (GoLYTELY,N 00:00: mouth as Me dical uLYTELY) 00 needed Center 236-22.74-6 (constipat .74 -5.86 ion). gram solution prucaloprid Yes 2mg QD Take [address] e 2 mg Tab 3-01 by mouth [facility] 00:[facility]: daily. Medical 00 [place] prucaloprid 0 2021- No 2mg QD Take [address] e 2 mg Tab 3-10 20- by mouth [facility] s 00:00: 00:00 daily. Medical 00 :00 [place] prucaloprid 2021-0 2022- No 2mg QD Take [address] e 2 mg Tab 3-10 20- by mouth Luke s 00:00: 00:00 daily. Medical 00 :00 Center prucaloprid 2021-0 2022- No 2mg QD Take [address] [facility] 2 mg Tab 3-10 20- by mouth [facility] s 00:00: 00:00 daily. Medical 00 :00 [place] prucaloprid 2021-0 2022- No 2mg QD Take [address] [facility] 2 mg Tab 3-10 20- by mouth Luke s 00:00: 00:00 daily. Medical 00 :00 [place] prucaloprid 2021-0 2022- No 2mg QD Take [address] [facility] 2 mg Tab 3-10 20-29 by mouth Luke s 00:00: 00:00 daily. Medical 00 :00 [place] prucaloprid 2021-0 2022- No 2mg QD Take [address] [facility] 2 mg Tab 12-08 by mouth Luke s 00:00: 00:00 daily. Medical 00 :00 [place] prucaloprid 2021-0 2022- No 2mg QD Take [address] [facility] 2 mg Tab 12-08 by mouth [facility] s 00:00: 00:00 daily. Medical 00 :00 [place] prucaloprid 2021-0 2022- No 2mg QD Take [address] [facility] 2 mg Tab 12-08 by mouth [facility] 00:00: 00:00 daily. Medical 00 :00 [place] prucaloprid 2021-0 2022- No 2mg QD Take [address] [facility] 2 mg Tab 12-08 by mouth [facility] s 00:00: 00:00 daily. Medical 00 :00 [place] prucaloprid 2021-0 2022- No 2mg QD Take [address] [facility] 2 mg Tab 12-08 by mouth [facility] s 00:00: 00:00 daily. Medical 00 :00 [place] prucaloprid 2021-0 2- No 2mg QD Take [address] [facility] 2 mg Tab 12-08 by mouth [facility] 00:00: 00:00 daily. Medical 00 :00 [place] prucaloprid 2021-0 2022- No 2mg QD Take [address] [facility] 2 mg Tab 12-08 by mouth [facility] 00:00: 00:00 daily. Medical 00 :00 [place] prucaloprid 2021-0 2022- No 2mg QD Take [address] [facility] 2 mg Tab 12-08 by mouth [facility] 00:00: 00:00 daily. Medical 00 :00 [place] prucaloprid 2021-0 2022- No 2mg QD Take [address] [facility] 2 mg Tab 12-08 by mouth [facility] 00:00: 00:00 daily. Medical 00 :00 [place] prucaloprid 2021-0 2022- No 2mg QD Take [address] [facility] 2 mg Tab 12-08 by mouth [facility] 00:00: 00:00 daily. Medical 00 :00 Center prucaloprid 2021-0 2021- No 2mg QD Take 2 mg [...] by [facility] (SmithaYTELY,N 00:00: 00:00 mouth as edical uLYTELY) 00 :00 needed Center 236-22.74-6 (constipat .74 -5.86 ion). gram solution polyethylen 2022-0 2022- No 4000mL Take 4,[address] [facility] glycol 2-28 03-01 mLs by [facility] (SmithaYTELY,N 00:00: 00:00 mouth as edical uLYTELY) 00 :00 needed Center 236-22.74-6 (constipat .74 -5.86 ion). gram solution prucaloprid 2022-0 2022- No 2mg QD Take [address] [facility] 2 mg Tab 2-04 01- by mouth [facility] 00:00: 00:00 daily. Medical 00 :00 Center polyethylen 2022-0 2022- No 4000mL Take 4,[address] [facility] [address] [facility] glycol 2- 03- mLs by [facility] (SmithaYTELY,N 00:00: 00:00 mouth as edical uLYTELY) 00 :00 needed Center 236-22.74-6 (constipat .74 -5.86 ion). gram solution prucaloprid 2022-0 2022- No 2mg QD Take [address] [facility] 2 mg Tab 2-28 - by mouth [facility] 00:00: 00:00 daily. Medical 00 :00 Center polyethylen 2022-0 2022- No 4000mL Take 4,[address] [facility] glycol 2-28 03- mLs by [facility] (SmithaYTELY,N 00:00: 00:00 mouth as edical uLYTELY) 00 :00 needed Center 236-22.74-6 (constipat .74 -5.86 ion). gram solution prucaloprid 2022-0 2022- No 2mg QD Take [address] [facility] 2 mg Tab 2-28 03- by mouth [facility] 00:00: 00:00 daily. Medical 00 :00 Center polyethylen 2022-0 2022- No 4000mL Take 4,[address] [facility] [facility] glycol 2- 03- mLs by [facility] (ColleenLY,N 00:00: 00:00 mouth as M edical uLYTELY) 00 :00 needed [place] 236-22.74-6 (constipat .74 -5.86 ion). gram solution prucaloprid 2021-0 2022- No 2mg QD Take [address] [facility] 2 mg Tab 2-04 01- by mouth [facility] 00:00: 00:00 daily. Medical 00 :00 [place] polyethylen 2021-0 2022- No 4000mL Take 4,[address] [facility] glycol 2- 03- mLs by [facility] (Latesha,N 00:00: 00:00 mouth as M edical uLYTELY) 00 :00 needed [place] 236-22.74-6 (constipat .74 -5.86 ion). gram solution prucaloprid 2021-0 2022- No 2mg QD Take [address] [facility] 2 mg Tab 2- 03- by mouth [facility] 00:00: 00:00 daily. Medical 00 :00 [place] polyethylen 2021-0 2022- No 4000mL Take 4,[address] [facility] glycol 2- 03- mLs by [facility] (Latesha,N 00:00: 00:00 mouth as M edical uLYTELY) 00 :00 needed [place] 236-22.74-6 (constipat .74 -5.86 ion). gram solution prucaloprid 2021-0 2022- No 2mg QD Take [address] [facility] 2 mg Tab 2-04 01- by mouth [facility] 00:00: 00:00 daily. Medical 00 :00 [place] multivitami 2021-0 3- No 1{tbl} QD Take [address] n 2-23 02-23 tablet by [facility] (THERAGRAN) 00:00: 23:59 mouth Medi jf tablet 00 :00 daily. [place] multivitami 2021-0 2022- No 1{tbl} QD Take [address] n 2-23 11-29 tablet by [facility] (THERAGRAN) 00:00: 00:00 mouth Medi jf tablet 00 :00 daily. [place] multivitami 2021- No 1{tbl} QD Take [address] n 2-23 11-29 tablet by [facility] (THERAGRAN) 00:00: 00:00 mouth Medi jf tablet 00 :00 daily. [place] multivitami 2021- No 1{tbl} QD Take [address] n 2-23 11-29 tablet by [facility] (THERAGRAN) 00:00: 00:00 mouth Medi jf tablet 00 :00 daily. [place] multivitami 2021- No 1{tbl} QD Take [address] n 2-23 11-29 tablet by [facility] (THERAGRAN) 00:00: 00:00 mouth Medi jf tablet 00 :00 daily. [place] multivitami 2021- No 1{tbl} QD Take [address] n 2-23 11-29 tablet by [facility] (THERAGRAN) 00:00: 00:00 mouth Medi jf tablet 00 :00 daily. [place] multivitami 2021- No 1{tbl} QD Take [address] n 2-23 11-29 tablet by [facility] (THERAGRAN) 00:00: 00:00 mouth Medi jf tablet 00 :00 daily. [place] multivitami 2021- No 1{tbl} QD Take [address] n 2-23 11-29 tablet by [facility] (THERAGRAN) 00:00: 00:00 mouth Medi jf tablet 00 :00 daily. [place] multivitami 2021- No 1{tbl} QD Take [address] n 2-23 11-29 tablet by [facility] (THERAGRAN) 00:00: 00:00 mouth Medi jf tablet 00 :00 daily. [place] multivitami 2021- No 1{tbl} QD Take [address] n 2-23 11-29 tablet by [facility] (THERAGRAN) 00:00: 00:00 mouth Medi jf tablet 00 :00 daily. [place] multivitami 2021- No 1{tbl} QD Take [address] n 2-23 11-29 tablet by [facility] (THERAGRAN) 00:00: 00:00 mouth Medi jf tablet 00 :00 daily. [place] multivitami 2021- No 1{tbl} QD Take [address] n 2-23 -29 tablet by [facility] (THERAGRAN) 00:00: 00:00 mouth Medi jf tablet 00 :00 daily. [place] multivitami 2021- No 1{tbl} QD Take [address] n 2-23 -29 tablet by [facility] (THERAGRAN) 00:00: 00:00 mouth Medi jf tablet 00 :00 daily. [place] multivitami 2021- No 1{tbl} QD Take [address] n 2-01 09- tablet by [facility] (THERAGRAN) 00:00: 00:00 mouth Medi jf tablet 00 :00 daily. [place] multivitami 2021- No 1{tbl} QD Take [address] n 2-01 09- tablet by [facility] (THERAGRAN) 00:00: 00:00 mouth Medi jf tablet 00 :00 daily. [place] multivitami 2021- No 1{tbl} QD Take [address] n -01 09- tablet by [employer] (THERAGRAN) 00:00: 00:00 mouth Medi jf tablet 00 :00 daily. [place] multivitami 2021- No 1{tbl} QD Take [address] n 12-02- tablet by [employer] (THERAGRAN) 00:00: 00:00 mouth Medi jf tablet 00 :00 daily. [place] lubiproston Yes 72ug Q.5D Take 3 [facility] [...] Take [address] [facility] (AMITIZA) 2-31 08-29 capsules Armando es 24 MCG 00:00: 00:00 (72 mcg Medical capsule 00 :00 total) by Center mouth 2 (two) times daily. lubiproston 2021- No 72ug Q.5D Take [address] [facility] (AMITIZA) 2-31 08-29 capsules Armando es 24 MCG 00:00: 00:00 (72 mcg Medical capsule 00 :00 total) by Center mouth 2 (two) times daily. lubiproston 2021- No 72ug Q.5D Take [address] [facility] (AMITIZA) 2-31 08-29 capsules Armando es 24 MCG 00:00: 00:00 [...] Take [address] [facility] (AMITIZA) 2-31 08-29 capsules Armando es 24 MCG 00:00: 00:00 [...] Center every night as needed (sleep). melatonin 2020-10 No 5mg Take [address] [facility] [...] 2020-[address] [facility] one 11-07 rectally 2 [facility] (ANUSOL-HC) 00:00: 23:59 [...] 1000mL at 999 Uni vers (NS) bolus 10-19-10 mL/hr, ity of infusion 03:15: 04:55 1,000 [...] tablets by Bere crespo 00:00: mouth Medical 100-50-75 00 Every Center mg(d) /150 morning mg (n) TbSQ and one in evening. elexacaftor 2020-0 Yes 2{tbl} Take [address] -tezacaftor 6-11 tablets by Bere crespo 00:00: mouth Medical 100-50-75 00 Every Center mg(d) /150 morning mg (n) TbSQ and one in evening. elexacaftor 2020-0 Yes 2{tbl} Take [address] -tezacaftor 6-11 tablets by Bere crespo 00:00: mouth Medical 100-50-75 00 Every Center mg(d) /150 morning mg (n) TbSQ and one in evening. elexacaftor 2020-0 Yes 2{tbl} Take [address] -tezacaftor 6-11 tablets by Bere crespo 00:00: mouth Medical 100-50-75 00 Every Center mg(d) /150 morning mg (n) TbSQ and one in evening. elexacaftor 2020-0 Yes 2{tbl} Take [address] -tezacaftor 6-11 tablets by Bere crespo 00:00: mouth Medical 100-50-75 00 Every Center mg(d) /150 morning mg (n) TbSQ and one in evening. elexacaftor 2020-0 Yes 2{tbl} Take [address] -tezacaftor 6-11 tablets by Bere crespo 00:00: mouth Medical 100-50-75 00 Every Center mg(d) /150 morning mg (n) TbSQ and one in evening. elexacaftor 2020-0 Yes 2{tbl} Take [address] -tezacaftor 6-11 tablets by Bere crespo 00:00: mouth Medical 100-50-75 00 Every Center mg(d) /150 morning mg (n) TbSQ and one in evening. elexacaftor 2020-0 Yes 2{tbl} QD Take [address] -tezacaftor 6-11 tablets by Bere crespo 00:00: mouth Medical ([facility]) 00 every Center 100-50-75 evening mg(d) /150 Take As mg (n) TbSQ directed by elexacaftor 2019-0 Yes 2{tbl} Take [address] -tezacaftor 6-11 tablets by Bere crespo 00:00: mouth Medical [facility] Every Center 100-50-75 morning mg(d) /150 and one in mg (n) TbSQ evening. elexacaftor 2020-0 Yes 2{tbl} Take [address] -tezacaftor 6-11 tablets by Bere crespo 00:00: mouth Medical [facility] 00 Every Center 100-50-75 morning mg(d) /150 and one in mg (n) TbSQ evening. elexacaftor 2020-0 Yes 2{tbl} Take [address] -tezacaftor 6-11 tablets by Bere crespo 00:00: mouth Medical [facility] Every Center 100-50-75 morning mg(d) /150 [...] one in mg (n) TbSQ evening. pediatric 2017-10 Yes 1{capsu QD Take [address] multivit 11-15 le} capsule by Tayla Hein-D3-vit K 00:00: mouth Medic al (MVW 00 [...] I St multivit -09-07 le} capsule by Luke s 61-D3-vit K 00:00: 00:00 mouth Medi [...] COMPLETE FORMULATION D5000) 5,000-800 unit-mcg Cap sodium 2017- Yes 4mL Q.5D 4 mLs 2 [facility] [...] 4mL QD [address] chloride, -29 daily . [facility] hypertonic, 00:00: Medica l [...] Take [address] (PROVENTIL) 07-02 (2.5 mg [facility] 2.5 mg /3 00:00: total) by Med ical mL (0.083 00 [address] er %) on every 6 nebulizer (six) solution hours as needed for Wheezing. tobramycin, Yes 300mg Q.5D Take [address] [facility], (LAVON) 9- (300 mg [facility] 300 mg/5 mL 00:00: total) by M edical nebulizer [address] er solution on 2 (two) times daily 21days on . lipase-prot Yes 1{capsu Take [address] ease-amylas 07-02 le} capsule by Bere kes e (CREON) 00:00: mouth 3 Medic al 36,000-114, 00 (three) Cente r 000- times 180,000 daily with unit CpDR meals 3 capsule tablets before meals. 1-2 tablets with snacks . albuterol 2017- Yes 2.5mg Take [address] (PROVENTIL) 9-23 (2.5 mg [facility] 2.5 mg /3 00:00: total) by Med ical mL (0.083 [address] er %) on every 6 nebulizer (six) solution hours as needed for Wheezing. tobramycin, 2018 Yes 300mg Q.5D Take 5 mLs [facility] [...] St ease-amylas 9-23 le} capsule by Bere vilchis (CREON) 00:00: [...] St ease-amylas 9-23 le} capsule by Bere vilchis (CREON) 00:00: mouth 3 Medic al 36,000-114, 00 (three) Cente r 000- times 180,000 daily with unit CpDR meals 3 capsule tablets before meals. 1-2 tablets with snacks . lipase-prot Yes 1{capsu Take [address] ease-amylas 9-23 le} capsule by Bere vilchis (CREON) 00:00: [...] (two) times daily 21 on . lipase-prot Yes 1{capsu Take 1 [...] St ease-amylas 9-23 le} capsule by Bere Elixents e (CREON) 00:00: mouth 3 Medic al [...] [facility] 300 mg/5 mL 00:00: total) by edical nebulizer [address] er solution [...] Take [address] [facility], (LAVON) 07-02- (300 mg [facility] 300 mg/5 mL 00:00: 00:00 total) by Medical nebulizer 00 :[address] er solution on 2 (two) times daily 21days on . tobramycin, 2022- No 300mg Q.5D Take [address] [facility], (LAVON) 07-02- (300 mg [facility] 300 mg/5 mL 00:00: [...] Take [address] [facility] [address] [facility], (LAVON) 07-02- (300 mg [facility] 300 mg/5 mL 00:00: 00:00 total) by Medical nebulizer 00 :[address] er solution on 2 (two) times daily 21days on . tobramycin, 2022- No 300mg Q.5D Take [address] [facility] [address] [facility], (LAVON) 07-02- (300 mg [facility] 300 mg/5 mL 00:00: 00:00 total) by Medical nebulizer 00 :[address] er solution on 2 (two) times daily 21days on . tobramycin, 2022- No 300mg Q.5D Take [address] [facility], (LAVON) 07-02- (300 mg [facility] 300 mg/5 mL 00:00: [...] for Wheezing. No known No Univers medications [facility] Immunizations Ordered Filled Immunization Date Status Comments [facility] e Immunization Name Name Pneumococcal 2019-06-[address] [facility] Conjugate (Prevnar) 00:00:00 [facility] Pneumococcal 2019-06-[address] [facility] Conjugate (Prevnar) 00:00:00 [facility] Pneumococcal 2019-06-02 Completed [facility] [...] [facility]jug[facility]Prevnar) 00:00:00 [facility] 13[facility]ent Pneumococcal 2019-06-[address] [facility] Conjugate (Prevnar) 00:00:00 [facility] 13[facility] Pneumococcal 2019-06-[address] [facility] Conjugate (Prevnar) 00:00:00 [facility] Influenza Four-QIV 2018-07-22 [...] 5+ YR 00:00:00 Medical Cent er Influenza Four-V 2018-07-[address] [facility] Non-PF 5+ [...] YR 00:00:00 Medical Cent er Influenza Four-QIV Unknown Completed [facility] Non-PF 5+ YR Medical Cent er Pneumococcal Unknown Completed [facility] Conjugate (Prevnar) Medic al Center 13-[facility]ent Influenza Four-QIV Unknown Completed [facility] Non-PF 5+ YR Medical Cent er Pneumococcal Unknown Completed [facility] Conjugate (Prevnar) Medic al Center 13-[facility]ent Influenza Four-QIV Unknown Completed [facility] Non-PF 5+ YR Medical Cent er Pneumococcal Unknown Completed [facility] Conjugate (Prevnar) Medic al Center 13-[facility]ent Vital Signs Vital Name Observation Time Observation [...] 100 /min [facility] Arterial blood by [facility] jf Pulse oximetry Branch Body temperature 2020-10-19 03:08:00 36.72 [facility] Body height 2020-10-19 03:08:00 185.4 cm [facility] Body weight 2020-10-19 03:08:00 70.308 kg [facility] BMI 2020-10-19 03:08:00 20.45 kg/m2 [facility] Systolic blood 2020-10-19 07:00:00 134 mm[Hg] [facility] Diastolic blood 2020-10-19 07:00:00 92 mm[Hg] [facility] Heart rate 2020-10-19 07:00:00 53 /min [facility] Respiratory rate 2020-10-19 07:00:00 15 /min [facility] Oxygen saturation in 2020-10-19 07:00:00 100 /min [facility] blood by [place] [facility] Pulse oximetry Branch Body temperature 2020-10-19 03:08:00 36.72 [facility] Body height 2020-10-19 03:08:00 185.4 cm [facility] Body weight 2020-10-19 03:08:00 70.308 kg [facility] BMI 2020-10-19 03:08:00 20.45 kg/m2 [facility] HEIGHT 2020-10-15 08:14:00 185.4 cm [...] kg Systolic blood 2023-04-16 15:00:00 124 mm[Hg] [facility] Diastolic blood 2023-04-16 15:00:00 77 mm[Hg] [facility] Heart rate 2023-04-16 15:00:00 56 /min [facility] Body temperature 2023-04-16 15:00:00 36.56 [facility] Respiratory rate 2023-04-16 15:00:00 18 /min [facility] Oxygen saturation in 2023-04-16 15:00:00 97 /min [facility] Arterial blood by Medical Ce nter Pulse oximetry Body weight 2023-04-12 07:00:00 68.2 kg [facility] BMI 2023-04-12 07:00:00 19.84 kg/m2 [facility] Systolic blood 2022-09-26 13:00:00 107 mm[Hg] [facility] Diastolic blood 2022-09-26 13:00:00 76 mm[Hg] [facility] Heart rate 2022-09-26 13:00:00 54 /min [facility] Body temperature 2022-09-26 13:00:00 36.56 [facility] Respiratory rate 2022-09-26 13:00:00 19 /min [facility] Oxygen saturation in 2022-09-26 13:00:00 97 /min [facility] Arterial blood by Medical Ce nter Pulse oximetry Body height 2022-09-24 03:22:00 185.4 cm [facility] Body weight 2022-09-24 03:22:00 68.811 kg [facility] BMI 2022-09-24 03:22:00 20.01 kg/m2 [facility] Systolic blood 2022-09-11 11:47:00 128 mm[Hg] [facility] Diastolic blood 2022-09-11 11:47:00 72 mm[Hg] [facility] Heart rate 2022-09-11 11:47:00 58 /min [facility] Body temperature 2022-09-11 11:47:00 36.56 [facility] Respiratory rate 2022-09-11 11:47:00 20 /min [facility] Oxygen saturation in 2022-09-11 11:47:00 100 /min [facility] Arterial blood by Medical Ce nter Pulse oximetry Systolic blood 2022-09-07 23:33:00 114 mm[Hg] [facility] Diastolic blood 2022-09-07 23:33:00 51 mm[Hg] [facility] Heart rate 2022-09-07 23:33:00 58 /min [facility] Body temperature 2022-09-07 23:33:00 37.06 [facility] Respiratory rate 2022-09-07 23:33:00 18 /min [facility] Oxygen saturation in 2022-09-07 23:33:00 98 /min [facility] Arterial blood by Medical Ce nter Pulse oximetry Body height 2022-09-07 20:33:00 185.4 cm [facility] Body weight 2022-09-07 20:33:00 69.491 kg [facility] BMI 2022-09-07 20:33:00 20.21 kg/m2 [facility] Heart rate 2021-12-09 08:50:00 63 /min [facility] Respiratory rate 2021-12-09 08:50:00 18 /min [facility] Oxygen saturation in 2021-12-09 08:50:00 96 /min [facility] Arterial blood by Medical Ce nter Pulse oximetry Systolic blood 2021-12-09 07:57:00 116 mm[Hg] [facility] Diastolic blood 2021-12-09 07:57:00 70 mm[Hg] [facility] Body temperature 2021-12-09 07:57:00 36.61 [facility] Body weight 2021-12-08 20:00:00 67.767 kg [facility] BMI 2021-12-08 20:00:00 19.71 kg/m2 [facility] Body height 2021-12-05 07:23:00 185.4 cm [facility] Procedures Procedure Date / Time Performing Clinician Source Performed CF RESPIRATORY CULTURE 2023-04-21 16:05:00 MarcinRadha [facility] FUNGUS CULTURE + SMEAR 2023-04-21 16:04:00 Ashburn Radhamarty [facility] AFB CULTURE + SMEAR 2023-04-21 16:03:00 AshburnRadha Kianna [facility] (SPUTUM ONLY) [place] SPIN/CONCENTRATION 2023-04-21 16:03:00 Radha Burch [facility] XR ABDOMEN/KUB 1 VIEW 2023-04-16 14:17:00 Honey Painter [facility] BASIC METABOLIC PANEL 2023-04-16 06:40:00 Nalam, Honey Lyssa [facility] MAGNESIUM 2023-04-16 06:40:00 Nalam, Honey Lyssa [facility] PHOSPHORUS 2023-04-16 06:40:00 Nalam, Honey Lyssa [facility] BASIC METABOLIC PANEL 2023-04-15 05:33:00 Nalam, Honey Lyssa [facility] MAGNESIUM 2023-04-15 05:33:00 [facility] 2023-04-15 05:33:00 [facility]BDOMEN/KUB 1 VIEW 2023-04-14 12:40:00 Akin Thomas [facility] BASIC METABOLIC PANEL 2023-04-14 04:07:00 [facility] 2023-04-14 04:07:00 Nalam, [facility] PHOSPHORUS 2023-04-14 04:07:00 Nalam, [facility] BASIC METABOLIC PANEL 2023-04-13 04:00:00 Nalam, Honey [facility] MAGNESIUM 2023-04-13 04:00:00 [facility]alam[facility] 2023-04-13 04:00:00 [facility] BASIC METABOLIC PANEL 2023-04-12 03:48:00 Nalam, Honey [facility] MAGNESIUM 2023-04-12 03:48:00 [facility]alam[facility] 2023-04-12 03:48:00 [facility]alam[facility] POCT-GLUCOSE METER 2023-04-11 16:36:00 [facility]/KUB 1 VIEW 2023-04-11 10:44:00 Matthew Hayden [facility] COMPREHENSIVE METABOLIC 2023-04-11 10:07:00 Honey Painter [facility] PANEL Center MAGNESIUM 2023-04-11 10:07:00 Honey Painter [facility] PHOSPHORUS 2023-04-11 10:07:00 Honey Painter [facility] CBC W/PLT COUNT & AUTO 2023-04-11 10:07:00 Honey Painter [facility] HEMOGLOBIN A1C 2023-04-11 10:07:00 Honey Painter [facility] GAMMA GLUTAMYL 2023-04-11 10:07:00 Honey Painter [facility] TRANSFERASE (GGT) Center CBC W/PLT COUNT & AUTO 2023-04-11 10:07:00 Honey Painter [facility] EKG-SCANNED 2023-04-11 00:00:00 Gloria Kaye [facility] CBC W/PLT COUNT & AUTO 2023-02-26 05:58:00 Sharyn Rodriguez [facility] BASIC METABOLIC PANEL 2023-02-26 05:58:00 Sharyn Rodriguez [facility] CBC W/PLT COUNT & AUTO 2023-02-26 05:58:00 Sharyn Rodriguez [facility] CBC W/PLT COUNT & AUTO 2023-02-25 05:13:00 Sharyn Rodriguez [facility] BASIC METABOLIC PANEL 2023-02-25 05:13:00 Sharyn Rodriguez [facility] CBC W/PLT COUNT & AUTO 2023-02-25 05:13:00 Sharyn Rodriguez [facility] BASIC METABOLIC PANEL 2023-02-24 04:39:00 Jose Arana [facility] CBC W/PLT COUNT & AUTO 2023-02-24 04:39:00 Sharyn Rodriguez [facility] CBC W/PLT COUNT & AUTO 2023-02-24 04:39:00 Sharyn Rodriguez [facility] (CELLAVISION MANUAL 2023-02-24 04:39:00 Sharyn Rodriguez [facility] CBC (HEMOGRAM ONLY) 2023-02-23 04:40[facility]00 [facility] BASIC METABOLIC PANEL 2023-02-23 04:40:00 [facility] ([facility] ONLY) 2023-02-22 04:23:00 [facility] BASIC METABOLIC PANEL 2023-02-22 04:23:00 [facility] HEMOGLOBIN A1C 2023-02-21 03:14:00 [facility] GAMMA GLUTAMYL 2023-02-21 03:14:00 [facility] TRANSFERASE (GGT) [facility] BASIC METABOLIC PANEL 2023-02-21 03:14:00 [facility] MAGNESIUM 2023-02-21 03:14:00 [facility] XR ABDOMEN/KUB 1 VIEW 2023-02-20 08:49:00 Tu Lara [facility] PORTABLE [facility] COMPREHENSIVE METABOLIC 2023-02-20 08:28:00 [facility] CBC W/PLT COUNT & AUTO 2023-02-20 08:28:00 [facility] DIFFERENTIAL [facility] MAGNESIUM 2023-02-20 08:28:00 [facility] PROTHROMBIN TIME/INR 2023-02-20 08:28:00 [facility] CBC W/PLT COUNT & AUTO 2023-02-20 08:28:00 [facility] DIFFERENTIAL [facility] FUNGUS CULTURE + SMEAR 2022-11-29 11:21:00 Ashburn Radhamarty [facility] AFB CULTURE + SMEAR 2022-11-29 11:21:00 Ashburn Radha [facility] (SPUTUM ONLY) Center CF RESPIRATORY CULTURE 2022-11-29 11:21:00 Marcin Radha Kianna [facility] SPIN/CONCENTRATION 2022-11-29 11:21:00 Radha Burch [facility] XR ABDOMEN/KUB 1 VIEW 2022-09-26 07:55:00 [facility]OLIC PAN[facility] 2022-09-26 05:16:00 Marcia-Sara Sung In [facility] MAGNESIUM 2022-09-26 05:16:00 Marcia-Sara, Sung In [facility] XR ABDOMEN/KUB 1 VIEW 2022-09-25 14:10:00 [facility]ita [facility] SARS-COV2/RT-PCR ([facility] & 2022-09-25 14:03:00 MarciaYuliya Sung In [facility] REF LABS) Center XR CHEST 1 VIEW PORTABLE 2022-09-24 11:24:00 Minnie Oliva [facility] / BEDSIDE Center BASIC METABOLIC PANEL 2022-09-24 04:05:00 [place] Farah [facility] HEPATIC FUNCTION PANEL 2022-09-24 04:05:00 [place] Farah [facility] [facility] PROT[facility]OMBIN TIME/INR 2022-09-24 04:05:00 Chaparro Farah [facility] MAGNESIUM 2022-09-24 04:05:00 Chaparro Farah [facility] PHOSPHORUS 2022-09-24 04:05:00 Chaparro Farah [facility] CBC W/PLT COUNT & AUTO 2022-09-24 04:05:00 Chaparro Farah [facility] DIFFERENTIAL [place] CBC W/PLT COUNT & AUTO 2022-09-24 04:05:00 Chaparro Farah [facility] EKG-SCANNED 2022-09-24 00:00:00 Gloria Kaye [facility] BASIC METABOLIC PANEL 2022-09-11 05:23:00 [facility] [place] HEPATIC FUNCTION PANEL 2022-09-11 05:23:00 Lightle, [facility] MAGNESIUM 2022-09-11 05:23:00 Lightle, [facility] PHOSPHORUS 2022-09-11 05:23:00 Lightle, [facility] CBC W/PLT COUNT & AUTO 2022-09-11 05:23:00 Lightle, [facility] CBC W/PLT COUNT & AUTO 2022-09-11 05:23:00 Lightle, [facility] BASIC METABOLIC PANEL 2022-09-10 03:26:00 Lightle, [facility] HEPATIC FUNCTION PANEL 2022-09-10 03:26:00 Lightle, [facility] MAGNESIUM 2022-09-10 03:26:00 Lightle, [facility] PHOSPHORUS 2022-09-10 03:26:00 Lightle, [facility] CBC W/PLT COUNT & AUTO 2022-09-10 03:26:00 Lightle, [facility] VANCOMYCIN LEVEL, TROUGH 2022-09-10 03:26:00 Sandoval Lipscomb [facility] CBC W/PLT COUNT & AUTO 2022-09-10 03:26:00 Lightle, [facility] US ABDOMEN LIMITED 2022-09-09 19:26:00 Lightle, [facility] XR ABDOMEN/KUB 1 VIEW 2022-09-09 13:27:00 Lightle, [facility] PORTABLE [facility] RESPIRATORY PANEL 2022-09-09 13:07:00 Minnie Oliva [facility] BILIRUBIN, DIRECT 2022-09-09 13:04:00 Lightle, [facility] BASIC METABOLIC PANEL 2022-09-09 09:43:00 Lightle, [facility] HEPATIC FUNCTION PANEL 2022-09-09 09:43:00 [facility] 2022-09-09 09:43:00 Lightle, [facility] PHOSPHORUS 2022-09-09 09:43:00 Lightle, [facility] CBC W/PLT COUNT & AUTO 2022-09-09 09:43:00 Lightle, [facility] DIFFERENTIAL [facility] CBC W/PLT COUNT & AUTO 2022-09-09 09:43[facility] XR CHEST 1 VIEW PORTABLE 2022-09-08 18:51:00 [facility] / BEDSIDE [facility] STREP PNEUMONIAE ANTIGEN 2022-09-08 17:19:00 [facility] LACT[facility] ACID, VENOUS 2022-09-08 17:18:00 [facility] PROCALCITONIN 2022-09-08 17:18:00 [facility] BLOOD CULTURE 2022-09-08 17:16:00 [facility] COMPREHENSIVE METABOLIC 2022-09-08 04:32:00 [facility] PANEL [facility] MAGNESIUM 2022-09-08 04:32:[address] [facility] [address] CBC (HEMOGRAM ONLY) 2022-09-08 04:32:00 [facility] SARS-COV2/RT-PCR ([facility] & 2022-09-07 06:24:00 [facility] REF LABS) [facility] CT ABDOMEN/PELVIS WITH 2022-09-07 04:32:00 Jesus Ewing [facility] IV CONTRAST [facility] BASIC METABOLIC PANEL 2022-09-07 02:23:00 Jesus Ewing [facility] HEPATIC FUNCTION PANEL 2022-09-07 02:23:00 [facility] LIPASE 2022-09-07 02:23:00 [facility] CBC W/PLT COUNT & AUTO 2022-09-07 02:22:00 Bud [facility] DIFFERENTIAL [facility] LACT[facility]ID, VENOUS 2022-09-07 02:22:00 Bud [facility] CBC W/PLT COUNT & AUTO 2022-09-07 02:22:00 Israproctor hospitalmagalie [facility] DIFFERENTIAL [facility] URINALYSIS W/ REFLEX 2022-09-07 00:38:00 Bud [facility] URINE CULTURE [facility] URINE CULTURE 2022-09-07 00:38:00 [facility] ECG 12-LEAD 2022-09-06 23:05:36 Bud [facility] ECG 12-LEAD 2022-09-06 23:05:36 Unknown, Hl7 [facility] EKG-SCANNED 2022-09-06 00:00:00 Provider, Gloria [facility] CF RESPIRATORY CULTURE 2022-07-05 13:40:00 Oksana Goddard [facility] Sofiya [place] CT ABDOMEN/PELVIS WITH 2022-06-27 05:18:00 [place], [facility] IV CONTRAST Center CBC W/PLT COUNT & AUTO 2022-06-27 01:32:00 [facility] BASIC METABOLIC PANEL 2022-06-27 01:32:00 [facility], [facility] HEPATIC FUNCTION PANEL 2022-06-27 01:32:00 Chester, [facility] LIPASE 2022-06-27 01:32:00 [facility], [facility] CBC W/PLT COUNT & AUTO 2022-06-27 01:32:00 [facility] POCT-GLUCOSE METER 2022-06-22 17:11:00 [facility]SE [facility] 2022-06-22 12:56:00 [facility]UCOSE METER 2022-06-22 05:50:00 [facility] BASIC METABOLIC PANEL 2022-06-22 03:56:00 [facility] CALCIUM, IONIZED 2022-06-22 03:56:00 [facility] 2022-06-22 03:56:00 [facility] CBC W/PLT COUNT & AUTO 2022-06-22 03:56:00 Tonny Meneses CH, I [facility] MAGNESIUM 2022-06-22 03:56:00 [facility] CBC W/PLT COUNT & AUTO 2022-06-22 03:56:00 Tonny Meneses CH, I [facility] POCT-GLUCOSE METER 2022-06-22 00:16:00 [facility] POCT-GLUCOSE METER 2022-06-21 17:12:00 Sintia [facility] POCT-GLUCOSE METER 2022-06-21 12:49:00 [facility] POCT-GLUCOSE METER 2022-06-21 08:18:00 [facility] BASIC METABOLIC PANEL 2022-06-21 04:58:00 [facility] CALCIUM, IONIZED 2022-06-21 04:58:00 [facility]US 2022-06-21 04:58:00 [facility] CBC W/PLT COUNT & AUTO 2022-06-21 04:58:00 Tonny Men[facility] Center MAGNESIUM 2022-06-21 04:58:00 [facility] CBC W/PLT COUNT & AUTO 2022-06-21 04:58:00 Tonny Mneeses [facility] POCT-GLUCOSE METER 2022-06-20 21:02:00 [facility] POCT-GLUCOSE METER 2022-06-20 17:36:00 Sintia [facility] POCT-GLUCOSE METER 2022-06-20 12:43:00 Sintia [facility] POCT-GLUCOSE METER 2022-06-20 09:50:00 Sintia [facility] POCT-GLUCOSE METER 2022-06-20 08:16:00 Sintia [facility] BASIC METABOLIC PANEL 2022-06-20 04:51:00 Sintia [facility] CALCIUM, IONIZED 2022-06-20 04:51:00 Sintia [facility] PHOSPHORUS 2022-06-20 04:51:00 [facility] CBC W/PLT COUNT & AUTO 2022-06-20 04:51:00 Tonny Meneses [facility] MAGNESIUM 2022-06-20 04:51:00 [facility] CBC W/PLT COUNT & AUTO 2022-06-20 04:51:00 Tonny Meneses [facility] POCT-GLUCOSE METER 2022-06-19 21:09:00 Sintia [facility] POCT-GLUCOSE METER 2022-06-19 17:24:00 Sintia [facility] POCT-GLUCOSE METER 2022-06-19 12:16:00 Sintia [facility] BASIC METABOLIC PANEL 2022-06-19 04:37:00 Emma [facility] MAGNESIUM 2022-06-19 04:37:00 [facility] W/[facility]T [facility] & AUTO 2022-06-19 04:37[facility] & AUTO 2022-06-19 [facility]:37[facility]PELVIS WITH 2022-06-18 23:25:00 [facility] POCT-GLUCOSE METER 2022-06-18 23:24:00 [facility] 2022-06-18 21:06:00 Kamryn [facility] SARS-COV2/RT-PCR ([facility] & 2022-06-18 21:06:00 Graham Singh [facility] REF LABS) Center CBC W/PLT COUNT & AUTO 2022-06-18 21:06:[address] [facility] LACTIC ACID, VENOUS 2022-06-18 21:06:00 [facility] COMPREHENSIVE METABOLIC 2022-06-18 21:06:00 [facility]EL [facility] PROT[facility]OMBIN TIME/INR 2022-06-18 21:06:00 [facility] 2022-06-18 21:06:00 Kamryn [facility] CBC W/PLT COUNT & AUTO 2022-06-18 [facility] ECG 12-LEAD 2022-06-18 17:50:02 Unknown, Hl7 [facility] ECG 12-LEAD 2022-06-18 17:50:02 Unknown, Hl7 [facility] EKG-SCANNED 2022-06-18 00:00:00 Provider, [facility] CF RESPIRATORY CULTURE 2022-01-14 11:54:00 Amor Napier [facility] AFB CULTURE + SMEAR 2022-01-14 11:54:00 Amor Napier [facility] (SPUTUM ONLY) Center SPIN/CONCENTRATION 2022-01-14 11:54:00 Amor Napier [facility] Center FUNGUS CULTURE + SMEAR 2022-01-14 11:53:00 Amor Napier [facility] FUNGUS CULTURE + SMEAR 2021-12-30 16:13:00 MarcinRadha [facility] AFB CULTURE + SMEAR 2021-12-30 16:13:00 Ashburn [facility] (SPUTUM ONLY) [place] CF RESPIRATORY CULTURE 2021-12-30 16:13:00 Ashburn Radha Kianna [facility] SPIN/CONCENTRATION 2021-12-30 16:13:00 AshburnRadha [facility] XR ABDOMEN/KUB 1 VIEW 2021-12-06 07:44:00 [facility] 2021-12-06 04:55:00 [facility] BASIC METABOLIC PANEL 2021-12-06 04:55:00 [facility] POCT-GLUCOSE METER 2021-12-05 17:37:[address] [facility] [address] ABDOMEN/PELVIS WITH 2021-12-05 09:41:00 Abdoul [facility] IV CONTRAST Center SARS-COV2/RT-PCR ([facility] & 2021-12-05 08:55:[address] [facility] REF LABS) Center CBC W/PLT COUNT & AUTO 2021-12-05 07:45:00 Mead [facility] DIFFERENTIAL [place] COMPREHENSIVE METABOLIC 2021-12-05 07:45:[address] [facility] PANEL Center LIPASE 2021-12-05 07:45:00 [facility] CBC W/PLT COUNT & AUTO 2021-12-05 07:45:00 Mead, Jacob [facility] Center XR ABDOMEN/KUB 1 VIEW 2021-11-30 09:11:00 Patricio Loja [facility] BASIC METABOLIC PANEL 2021-11-30 08:50:00 LeisaPratik linn [facility] CBC W/PLT COUNT & AUTO 2021-11-26 05:05:00 Civunvinayak [facility] BASIC METABOLIC PANEL 2021-11-26 05:05:00 [facility] CBC W/PLT COUNT & AUTO 2021-11-26 05:05:00 [facility] CT ABDOMEN/PELVIS WITH 2021-11-25 03:19:00 Brad Galindo [facility] IV CONTRAST Center SARS-COV2/RT-PCR ([facility] & 2021-11-25 01:09:00 Brad Galindo [facility] REF LABS) Center CBC W/PLT COUNT & AUTO 2021-11-25 01:09:00 Brad Galindo [facility] COMPREHENSIVE METABOLIC 2021-11-25 01:09:00 Brad Galindo [facility] MAGNESIUM 2021-11-25 01:09:00 Brad Galindo [facility] HIGH SENSITIVITY 2021-11-25 01:09:00 Brad Galindo [facility] TROPONIN I Center LIPASE 2021-11-25 01:09:00 Brad Galindo [facility] CBC W/PLT COUNT & AUTO 2021-11-25 01:09:00 Brad Galindo [facility] CT ABDOMEN/PELVIS WITH 2021-11-14 00:11:00 Lance Steen [facility] IV CONTRAST Jocelyne Center COMPREHENSIVE METABOLIC 2021-11-13 22:53:00 Puma Kent [facility] Center LIPASE 2021-11-13 22:53:00 Kent Puma [facility] MAGNESIUM 2021-11-13 22:53:00 [facility] URINE CULTURE 2021-11-13 22:18:00 [facility] URINALYSIS W/ REFLEX 2021-11-13 22:18:00 [facility] URINE CULTURE Center SARS-COV2/RT-PCR ([facility] & 2021-11-13 22:12:00 [facility] REF LABS) Center CBC W/PLT COUNT & AUTO 2021-11-13 22:12:00 [facility] DIFFERENTIAL Center CBC W/PLT COUNT & AUTO 2021-11-13 22:12:00 [facility] DIFFERENTIAL [place] XR ABDOMEN/KUB 1 VIEW 2021-11-13 21:30:00 [facility] PORTABLE Center XR CHEST 1 VIEW PORTABLE 2021-11-13 21:30:00 [facility] / BEDSIDE Center ECG 12-LEAD 2021-11-13 19:46:04 Unknown, Hl7 [facility] ECG 12-LEAD 2021-11-13 19:46:04 Unknown, Hl7 [facility] EKG-SCANNED 2021-11-13 00:00:00 ProviderGloria [facility] Scanning Center PHOSPHORUS 2021-08-06 04:54:00 Honey Painter [facility] BASIC METABOLIC PANEL 2021-08-06 04:54:00 [facility] MAGNESIUM 2021-08-06 04:54:00 [facility] ABDOMEN / KUB 1 VIEW 2021-08-05 11:57:00 Charlene Pearson [facility] PHOSPHORUS 2021-08-05 05:07:00 PonchoamHoney [facility] BASIC METABOLIC PANEL 2021-08-05 05:07:00 Honey Painter Lyssa [facility] (7) Center MAGNESIUM 2021-08-05 05:07:00 Nal, [facility] PHOSPHORUS 2021-08-04 05:33:00 [facility], [facility] BASIC METABOLIC PANEL 2021-08-04 05:33:00 [facility], [facility] MAGNESIUM 2021-08-04 05:33:00 [facility], [facility] BASIC METABOLIC PANEL 2021-08-03 04:23:00 [facility] [place] MAGNESIUM 2021-08-03 04:23:00 [facility] PHOSPHORUS 2021-08-03 04:23:00 [facility] SARS-COV2/RT-PCR ([facility] & 2021-08-01 21:50:00 Puma Kent I [facility] REF LABS) Center CT ABDOMEN/PELVIS WITH 2021-08-01 20:44:00 Elie Youngblood [facility] IV CONTRAST Center LIPASE 2021-08-01 19:18:00 Puma Kent [facility] COMPREHENSIVE METABOLIC 2021-08-01 19:17:00 Elie Youngblood [facility] PANEL Center CBC W/PLT COUNT & AUTO 2021-08-01 19:17:00 Elie Youngblood [facility] DIFFERENTIAL Center CBC W/PLT COUNT & AUTO 2021-08-01 19:17:00 Elie Youngblood [facility] DIFFERENTIAL Center URINALYSIS 2020-10-19 04:37:00 Shannon Momin [facility] CT ABDOMEN PELVIS W 2020-10-19 04:02:25 [facility] CONTRAST Medical Branch LIPASE 2020-10-19 03:17:00 Shannon Momin [facility] TROPONIN I 2020-10-19 03:17:00 Shannon Momin [facility] HEPATIC FUNCTION PANEL 2020-10-19 03:17:00 Shannon Momin [facility] ([id number]) (ALB,T.PRO,BILI Medical Branch T,BU/BC,ALT,AST,ALK PHOS) BASIC METABOLIC PANEL 2020-10-19 03:17:00 Shannon Momin [facility] (NA, K, CL, CO2, Medical Branch GLUCOSE, BUN, CREATININE, CA) CBC WITH DIFF 2020-10-19 03:17:00 [facility] COVID-19 (ID NOW RAPID 2020-10-19 03:17:00 Shannon Momin [facility] TESTING) [facility] Branch Plan of Care Planned Activity Planned Date Details Comments Source Future Scheduled 2028-09-01 Screening for malignant [facility] Test 00:00:00 neoplasm of colon Medical Ce nter (procedure) [code = 043140064] Future Scheduled 2028-09-01 Screening for malignant [facility] Test 00:00:00 neoplasm of colon Medical Ce nter (procedure) [code = 900415537] Future Scheduled 2028-09-01 Screening for malignant [facility] Test 00:00:00 neoplasm of colon Medical Ce nter (procedure) [code = 994933707] Future Scheduled 2028-09-01 Screening for malignant [facility] Test 00:00:00 neoplasm of colon Medical Ce nter (procedure) [code = 457185096] Future Scheduled 2028-09-01 Screening for malignant [facility] Test 00:00:00 neoplasm of colon Medical Ce nter (procedure) [code = 084544143] Future Scheduled 2028-09-01 Screening for malignant [facility] Test 00:00:00 neoplasm of colon Medical Ce nter (procedure) [code = 431527620] Future Scheduled 2028-09-01 Screening for malignant [facility] Test 00:00:00 neoplasm of colon Medical Ce nter (procedure) [code = 611623210] Future Scheduled 2028-09-01 Screening for malignant [facility] Test 00:00:00 neoplasm of colon Medical Ce nter (procedure) [code = 015225606] Future Scheduled 2028-09-01 Screening for malignant [facility] Test 00:00:00 neoplasm of colon Medical Ce nter (procedure) [code = 254837136] Future Scheduled 2028-09-01 Screening for malignant [facility] Test 00:00:00 neoplasm of colon Medical Ce nter (procedure) [code = 403882226] Future Scheduled 2028-09-01 Screening for malignant [facility] Test 00:00:00 neoplasm of colon Medical Ce nter (procedure) [code = 594976748] Future Scheduled 2028-09-01 Screening for malignant [facility] Test 00:00:00 neoplasm of colon Medical Ce nter (procedure) [code = 885535587] Future Scheduled 2028-09-01 Screening for malignant [facility] Test 00:00:00 neoplasm of colon Medical Ce nter (procedure) [code = 464474082] Future Scheduled 2028-09-01 Screening for malignant [facility] Test 00:00:00 neoplasm of colon Medical Ce nter (procedure) [code = 905125370] Future Scheduled 2028-09-01 Screening for malignant [facility] Test 00:00:00 neoplasm of colon Medical Ce nter (procedure) [code = 980457851] Future Scheduled 2028-09-01 Screening for malignant [facility] Test 00:00:00 neoplasm of colon Medical Ce nter (procedure) [code = 992487139] Future Scheduled 2028-09-01 Screening for malignant [facility] Test 00:00:00 neoplasm of colon Medical Ce nter (procedure) [code = 625006276] Future Scheduled 2028-09-01 Screening for malignant [facility] Test 00:00:00 neoplasm of colon Medical Ce nter (procedure) [code = 406212093] Future Scheduled 2028-09-01 Screening for malignant [facility] Test 00:00:00 neoplasm of colon Medical Ce nter (procedure) [code = 897182374] Future Scheduled 2028-09-01 Screening for malignant [facility] Test 00:00:00 neoplasm of colon Medical Ce nter (procedure) [code = 210685136] Future Scheduled 2028-09-01 Screening for malignant [facility] Test 00:00:00 neoplasm of colon Medical Ce nter (procedure) [code = 568586294] Future Scheduled 2028-09-01 Screening for malignant [facility] Test 00:00:00 neoplasm of colon Medical Ce nter (procedure) [code = 199725496] Future Scheduled 2028-09-01 Screening for malignant [facility] Test 00:00:00 neoplasm of colon Medical Ce nter (procedure) [code = 356150318] Future Scheduled 2028-09-01 Screening for malignant [facility] Test 00:00:00 neoplasm of colon Medical Ce nter (procedure) [code = 633119069] Future Scheduled 2028-09-01 Screening for malignant [facility] Test 00:00:00 neoplasm of colon Medical Ce nter (procedure) [code = 958447538] Future Scheduled 2028-09-01 Screening for malignant [facility] Test 00:00:00 neoplasm of colon Medical Ce nter (procedure) [code = 483488397] Future Scheduled 2028-09-01 Screening for malignant [facility] Test 00:00:00 neoplasm of colon Medical Ce nter (procedure) [code = 595081764] Future Scheduled 2028-09-01 Screening for malignant [facility] Test 00:00:00 neoplasm of colon Medical Ce nter (procedure) [code = 840927825] Future Scheduled 2028-09-01 Screening for malignant [facility] Test 00:00:00 neoplasm of colon Medical Ce nter (procedure) [code = 586372801] Future Scheduled 2028-09-01 Screening for malignant [facility] Test 00:00:00 neoplasm of colon Medical Ce nter (procedure) [code = 326582985] Future Scheduled 2028-09-01 Screening for malignant [facility] Test 00:00:00 neoplasm of colon Medical Ce nter (procedure) [code = 382238570] Future Scheduled 2028-09-01 Screening for malignant [facility] Test 00:00:00 neoplasm of colon Medical Ce nter (procedure) [code = 620807926] Future Scheduled 2028-09-01 Screening for malignant [facility] Test 00:00:00 neoplasm of colon Medical Ce nter (procedure) [code = 673303321] Future Scheduled 2028-09-01 Screening for malignant [facility] Test 00:00:00 neoplasm of colon Medical Ce nter (procedure) [code = 638808204] Future Scheduled 2027-11-29 Lipid panel (procedure) [facility] Test 00:00:00 [code = 86050675] Medical Ce nter Future Scheduled 2027-11-29 Lipid panel (procedure) [facility] Test 00:00:00 [code = 62448459] Medical Ce nter Future Scheduled 2027-11-29 Lipid panel (procedure) [facility] Test 00:00:00 [code = 71711271] Medical Ce nter Future Scheduled 2027-11-29 Lipid panel (procedure) [facility] Test 00:00:00 [code = 28224628] Medical Ce nter Future Scheduled 2027-11-29 Lipid panel (procedure) [facility] Test 00:00:00 [code = 13012161] Medical Ce nter Future Scheduled 2027-11-29 Lipid panel (procedure) [facility] Test 00:00:00 [code = 20936937] Medical Ce nter Future Scheduled 2027-11-29 Lipid panel (procedure) [facility] Test 00:00:00 [code = 69480326] Medical Ce nter Future Scheduled 2026-12-30 Lipid panel (procedure) [facility] Test 00:00:00 [code = 89603231] Medical Ce nter Future Scheduled 2026-12-30 Lipid panel (procedure) [facility] 00:00:00 [code = 45874842] Medical Ce nter Future Scheduled 2026-12-30 Lipid panel (procedure) [facility] 00:00:00 [code = 75987342] Medical Ce nter Future Scheduled 2026-12-30 Lipid panel (procedure) [facility] 00:00:00 [code = 46487641] Medical Ce nter Future Scheduled 2026-12-30 Lipid panel (procedure) [facility] 00:00:00 [code = 77606759] Medical Ce nter Future Scheduled 2026-12-30 Lipid panel (procedure) [facility] 00:00:00 [code = 70242044] Medical Ce nter Future Scheduled 2026-12-30 Lipid panel (procedure) [facility] 00:00:00 [code = 12835781] Medical Ce nter Future Scheduled 2026-12-30 Lipid panel (procedure) [facility] 00:00:00 [code = 16701189] Medical Ce nter Future Scheduled 2026-12-30 Lipid panel (procedure) [facility] 00:00:00 [code = 36815642] Medical Ce nter Future Scheduled 2026-12-30 Lipid panel (procedure) [facility] 00:00:00 [code = 32378659] Medical Ce nter Future Scheduled 2024-02-21 Tobacco [...] 00:00:00 0-64 Years (2 - PPSV23 if Mt dical Center available, else PCV20) [code = [...] 00:00:00 (YEAR 2 or FIRST YEAR if [facility] ical Center no IPPE) [code = MEDICARE ANNUAL WELLNESS (YEAR 2 or FIRST YEAR if no IPPE)] Future Scheduled 2000-01-10 MEDICARE ANNUAL WELLNESS [facility] Test 00:00:00 (YEAR 2 or FIRST YEAR if [facility] ical Center no IPPE) [code = MEDICARE [...] screening Medical Cent er (procedure) [code = 235909103] Future Scheduled [address] Human [address] [facility]00 virus screening [facility] Cent [facility] (procedure) [code = 974835100] Future Scheduled [address] Human immunodeficiency [facility] 00:00:00 virus screening [facility] Cent er (procedure) [code = 996607918] Future Scheduled [address] Human immunodeficiency [facility] 00:00:00 virus screening [facility] Cent er (procedure) [code = 380348587] Future Scheduled [address] Human [address] [facility] 00:00:00 virus screening Medical Cent er (procedure) [code = 186343772] Future Scheduled [address] Human immunodeficiency [facility] 00:00:00 virus screening Medical Cent er (procedure) [code = 959374183] Future Scheduled [address] [facility] virus screening [facility] (procedure) [code = 395708534] Future Scheduled 1976-04-19 COVID-19 VACCINE (#1) [facility] [...] colon Medical Ce nter (procedure) [code = 990887076] Future Scheduled 1975 Screening for malignant [facility] 00:00:00 neoplasm of colon Medical Ce nter (procedure) [code = 218877267] Future Scheduled 1975 Sigmoidoscopy [facility]code = [facility]] Medical Cente r Future Scheduled 1975 CT Colonography (combo) [facility] 00:00:00 [code = CT Colonography [facility]f Center (combo)] Future Scheduled 1975 Screening for malignant [facility] 00:00:00 neoplasm of colon Medical Ce nter (procedure) [code = 248080401] Future Scheduled 1975 Screening for malignant [facility] 00:00:00 neoplasm of colon Medical Ce nter (procedure) [code = 409608828] Future Scheduled 1975 Sigmoidoscopy [facility]code = [facility]] Medical Cent[facility] r Future Scheduled 1975 CT Colonography (combo) [facility] 00:00:00 [code = CT Colonography [facility] (combo)] Future Scheduled 1975 Screening for malignant [facility] 00:00:00 neoplasm of colon Medical Ce nter (procedure) [code = 115972469] Future Scheduled 1975 Screening for malignant [facility] 00:00:00 neoplasm of colon Medical Ce nter (procedure) [code = 361145543] Future Scheduled 1975 Sigmoidoscopy [facility]code = [facility]oscopy] [facility] Cente r Future Scheduled 1975 CT Colonography (combo) [facility] 00:00:00 [code = CT Colonography [facility] Center (combo)] Future Scheduled 1975 Screening for malignant [facility] 00:00:00 neoplasm of colon Medical Ce nter (procedure) [code = 587931269] Future Scheduled 1975 Screening for malignant [facility] 00:00:00 neoplasm of colon Medical Ce nter (procedure) [code = 471510475] Future Scheduled 1975 Sigmoidoscopy [facility]code = [facility]oscopy] Medical Cente r Future Scheduled 1975 CT Colonography (combo) [facility] 00:00:00 [code = CT Colonography [facility] (combo)] Future Scheduled 1975 Screening for malignant [facility] 00:00:00 neoplasm of colon Medical Ce nter (procedure) [code = 156701838] Future Scheduled 1975 Screening for malignant [facility] 00:00:00 neoplasm of colon Medical Ce nter (procedure) [code = 809323863] Future Scheduled 1975 Sigmoidoscopy [facility]code = [facility]] [facility] Cente r Future Scheduled 1975 CT Colonography (combo) [facility] 00:00:00 [code = CT Colonography [facility] (combo)] Future Scheduled 1975 Screening for malignant [facility] 00:00:00 neoplasm of colon Medical Ce nter (procedure) [code = 541676811] Future Scheduled 1975 Screening for malignant [facility] 00:00:00 neoplasm of colon Medical Ce nter (procedure) [code = 461229692] Future Scheduled 1975 Sigmoidoscopy [facility]code = [facility]oscopy] Medical Cente r Future Scheduled 1975 CT Colonography (combo) [facility] 00:00:00 [code = CT Colonography [facility] (combo)] Future Scheduled 1975 Screening for malignant [facility] 00:00:00 neoplasm of colon Medical Ce nter (procedure) [code = 665389412] Future Scheduled 1975 Screening for malignant [facility] 00:00:00 neoplasm of colon Medical Ce nter (procedure) [code = 735212038] Future Scheduled 1975 Sigmoidoscopy [facility]code = [facility]oscopy] Medical Cente r Future Scheduled 1975 CT Colonography (combo) [facility] 00:00:00 [code = CT Colonography [facility] (combo)] Future Scheduled 1975 Screening for malignant [facility] 00:00:00 neoplasm of colon Medical Ce nter (procedure) [code = 961415470] Future Scheduled 1975 Screening for malignant [facility] 00:00:00 neoplasm of colon Medical Ce nter (procedure) [code = 646402267] Future Scheduled 1975 S[facility]oidoscopy [facility]code [facility]oscopy] Medical Constantine r Future Scheduled 1975 CT Colonography (combo) [facility] 00:00:00 [code = CT Colonography [facility] Center (combo)] Future Scheduled 1975 Screening for malignant [facility] 00:00:00 neoplasm of colon Medical Ce nter (procedure) [code = 519291751] Future Scheduled 1975 Screening for malignant [facility] 00:00:00 neoplasm of colon Medical Ce nter (procedure) [code = 226186563] Future Scheduled 1975 Sigmoidoscopy [facility]code [facility] S[facility]oidoscopy] Medical Paige r Future Scheduled 1975 CT Colonography (combo) [facility] 00:00:00 [code = CT Colonography [facility] (combo)] Future Scheduled 1975 Screening for malignant [facility] 00:00:00 neoplasm of colon Medical Ce nter (procedure) [code = 704816064] Future Scheduled 1975 Screening for malignant [facility] 00:00:00 neoplasm of colon Medical Ce nter (procedure) [code = 015207987] Future Scheduled 1975 S[facility]oidoscopy [facility]code [facility]oscopy] Medical Paige r Future Scheduled 1975 CT Colonography (combo) [facility] 00:00:00 [code = CT Colonography [facility] (combo)] Future Scheduled 1975 Screening for malignant [facility] 00:00:00 neoplasm of colon Medical Ce nter (procedure) [code = 743043385] Future Scheduled 1975 Screening for malignant [facility] 00:00:00 neoplasm of colon Medical Ce nter (procedure) [code = 114311257] Future Scheduled 1975 S[facility]oidoscopy [facility]code [facility]] Medical Cente r Future Scheduled 1975 CT Colonography (combo) [facility] 00:00:00 [code = CT Colonography [facility] (combo)] Future Scheduled 1975 Screening for malignant [facility] 00:00:00 neoplasm of colon Medical Ce nter (procedure) [code = 249537003] Future Scheduled 1975 Screening for malignant [facility] 00:00:00 neoplasm of colon Medical Ce nter (procedure) [code = 207684376] Future Scheduled 1975 Sigmoidoscopy [facility]code = [facility]oscopy] Medical Cente r Future Scheduled 1975 CT Colonography (combo) [facility] 00:00:00 [code = CT Colonography [facility] (combo)] Future Scheduled 1975 Screening for malignant [facility] 00:00:00 neoplasm of colon Medical Ce nter (procedure) [code = 712044854] Future Scheduled 1975 Screening for malignant [facility] 00:00:00 neoplasm of colon Medical Ce nter (procedure) [code = 959929610] Future Scheduled 1975 Sigmoidoscopy [facility]code = [facility]oscopy] Medical Cente r Future Scheduled 1975 CT Colonography (combo) [facility] 00:00:00 [code = CT Colonography [facility]f Center (combo)] Future Scheduled 1975 Screening for malignant [facility] 00:00:00 neoplasm of colon Medical Ce nter (procedure) [code = 485107493] Future Scheduled 1975 Screening for malignant [facility] 00:00:00 neoplasm of colon Medical Ce nter (procedure) [code = 147168183] Future Scheduled 1975 Sigmoidoscopy [facility]code = [facility] S[facility]oscopy] Medical Cente r Future Scheduled 1975 CT Colonography (combo) [facility] 00:00:00 [code = CT Colonography [facility]f Center (combo)] Future Scheduled 1975 Screening for malignant [facility] 00:00:00 neoplasm of colon Medical Ce nter (procedure) [code = 333976302] Future Scheduled 1975 Screening for malignant [facility] 00:00:00 neoplasm of colon Medical Ce nter (procedure) [code = 571587954] Future Scheduled 1975 Sigmoidoscopy [facility]code = [facility]oscopy] Medical Cente r Future Scheduled 1975 CT Colonography (combo) [facility] 00:00:00 [code = CT Colonography [facility]f Center (combo)] Future Scheduled 1975 Screening for malignant [facility] 00:00:00 neoplasm of colon Medical Ce nter (procedure) [code = 721290828] Future Scheduled 1975 Screening for malignant [facility] 00:00:00 neoplasm of colon Medical Ce nter (procedure) [code = 253533684] Future Scheduled 1975 Sigmoidoscopy [facility]code [facility]oscopy] Medical Constantine r Future Scheduled 1975 CT Colonography (combo) [facility] 00:00:00 [code = CT Colonography [facility]f Center (combo)] Future Scheduled 1975 Screening for malignant [facility] 00:00:00 neoplasm of colon Medical Ce nter (procedure) [code = 235382585] Future Scheduled 1975 Screening for malignant [facility] 00:00:00 neoplasm of colon Medical Ce nter (procedure) [code = 961064474] Future Scheduled 1975 Sigmoidoscopy [facility]code [facility] S[facility]oscopy] Medical Paige r Encounters Start End Encounter Admission Attending Care Care Encounter Source Date/Time Date/Time Type Type Clinicians Facility Department ID 2023-04-16 [id number] 13:57:20 [facility] 2023-04-14 Inpatient ER AKIN THOMAS SLE SLE [id number] [facility]H 12:09:09 2023-04-11 Inpatient ER SYDNEE PAINTER [facility] [id number] SLE[facility] 10:08:27 [facility] 2023-08-02 2023-08-02 Outpatient EL SLE SLE [id number] SLE[facility] 17:07:03 17:07:03 2023-04-22 2023-04-22 Outpatient EL SLE SLE [id number] SLEH 13:46:53 13:46:53 2023-04-21 2023-04-21 Lab Radha Ribera [facility] [id number] [facility] 16:15:00 16:30:00 Patient Kianna [facility] 2023-04-11 2023-04-16 Hospital ER [facility] [id number] 05:36:00 17:06:00 Encounter Honey Painter [facility] 2023-04-11 2023-04-16 Inpatient ER MADINA [facility] [id number] [facility]H 05:36:00 17:06:00 [facility] 2023-04-11 2023-04-11 Travel [facility] [id number] [facility]00 00:00:00 [facility] 2023-02-20 2023-02-26 [facility] Sofiya Becerril [facility] [id number] [facility] 06:01:00 16:25:00 [facility] 2023-02-20 2023-02-26 Inpatient ER JENNIFER, [facility] Surgery [id number] SLEH 06:01:00 16:25:00 [facility] 2022-11-29 2022-11-29 Outpatient EL SLE SLE [id number] SLE 16:42:58 16:42:58 2022-11-29 2022-11-29 Orders Radha Ribera [facility] [id number] 14:30:00 14:45:[address] [facility] 2022-09-24 2022-09-26 Hospital ER [facility] [id number] [facility] 03:04:00 15:42:00 Encounter JalenStefano perdue In [facility] 2022-09-24 2022-09-[address] [facility] Med [id number] SLEH 03:04:00 15:42:00 [facility] 2022-09-06 2022-09-11 [facility] ER Jesus Ewing [facility] [id number] [facility] 21:10:00 16:18:00 Encounter Debi Briggs [facility] 2022-09-06 2022-09-11 Inpatient ER [facility] Emergency [id number] SLE 21:10:00 16:18:00 [facility] 2022-09-06 2022-09-06 Orders [facility] [id number] 00:00:00 00:00:00 Only [facility] 2022-09-06 2022-09-06 Travel [facility] [id number] [facility] 00:00:00 00:00:00 [facility] 2022-07-06 2022-07-06 Outpatient EL [facility] [id number] [facility] 09:35:01 09:35:01 2022-07-05 2022-07-05 Orders TERRANCE Goddard, [facility] [id number] 14:15:00 14:30:00 Only Oksana [facility] 2022-06-27 2022-06-27 Emergency ER Debi Briggs [facility] [id number] 01:04:00 06:00:00 [facility] 2022-06-27 2022-06-27 Emergency ER DEBI BRIGGS [facility] Emergency [id number] SLE 01:04:00 06:00:00 2022-06-27 2022-06-27 Travel [facility] [id number] [facility] 00:00:00 00:00:00 [facility] 2022-06-18 2022-06-22 Hospital ER Meredith Harry [facility] [id number] 17:52:00 19:32:[address] [facility] Coty Juarez [facility] 2022-06-18 2022-06-22 Inpatient ER [facility] Emergency [id number] SLE 17:52:00 19:32:00 [facility] 2022-06-18 2022-06-18 Orders [facility] [id number] 00:00:00 00:00:00 Only [facility] 2022-06-18 2022-06-18 Travel [facility] [id number] [facility] 00:00:00 00:00:00 [facility] 2022-01-18 2022-01-18 Outpatient EL SLE SLE [id number] SLE 17:05:19 17:05:19 2022-01-14 2022-01-14 Orders TERRANCE Quyen [facility] [id number] 12:00:00 12:15:00 Only Amor Ha [facility] 2022-01-01 2022-01-01 Outpatient EL SLE SLE [id number] SLE 15:16:13 15:16:13 2021-12-30 2021-12-30 Orders Radha Ribera [facility] [id number] 16:15:00 16:30:00 Only Kianna [facility] 2021-12-05 2021-12-09 Hospital ER Jacob Calle [facility] [id number] [facility] 07:23:00 14:47:00 Encounter Honey Painter [facility] 2021-12-05 2021-12-09 Inpatient ER GABRIEL, [facility] Emergency [id number] SLE 07:23:00 14:47:00 TITILOLA 2021-11-25 2021-12-01 Hospital ER Brad Galindo [facility] [id number] 00:40:00 12:00:00 Encounter Jose Arana skip Leisa, [facility] 2021-11-25 2021-12-01 Inpatient ER [facility] Emergency [id number] SLE 00:40:00 12:00:00 [facility] 2021-11-25 2021-11-25 Travel [facility] [id number] [facility] 00:00:00 00:00:00 [facility] 2021-11-13 2021-11-14 Emergency ER [facility] [id number] 19:43:00 04:21:00 [facility] 2021-11-13 2021-11-14 Emergency ER [facility] Emergency [id number] SLE 19:43:00 04:21:00 [facility] 2021-11-13 2021-11-13 Orders [facility] [id number] 00:00:00 00:00:00 Only [facility] 2021-11-13 2021-11-13 Travel [facility] [id number] [facility] 00:00:00 00:00:00 [facility] 2021-08-13 2021-08-[address] [facility] [id number] SLE 00:00:00 00:00:00 WILLIS 2021-08-01 2021-08-06 Hospital ER [facility] [id number] 18:35:00 16:55:00 Encounter [facility]inder [facility] 2021-08-01 2021-08-06 Inpatient ER [facility], [facility] Emergency [id number] SLE 18:35:00 16:55:00 CHARLENE 2021-08-01 2021-08-01 Travel [facility] [id number] [facility] 00:00:00 00:00:00 [facility] 2021-04-12 2021-04-12 Emergency ER SLE Emergency [id number] SLEH 20:54:00 20:54:00 2021-03-26 2021-03-26 Outpatient EL SLEH SLEH [id number] [facility] 00:00:00 00:00:00 2021-02-19 2021-02-19 Emergency ER SLE Emergency [id number] [facility] 15:12:00 15:12:00 2021-01-06 2021-01-06 Outpatient QUYEN, SLE SLE [id number] SLEH 00:00:00 00:00:00 [facility] 2021-01-06 2021-01-06 Outpatient EL QUYEN, SLEH SLEH [id number] SLEH 00:00:00 00:00:00 [facility] 2021-01-06 2021-01-06 Outpatient EL SLE SLE [id number] [facility] 00:00:00 00:00:00 2020-10-25 2020-10-25 Emergency ER SLE Emergency [id number] SLE 00:15:00 00:15:00 2020-10-19 2020-10-19 Emergency ER SLE Emergency [id number] SLE 18:18:00 18:18:00 2020-10-18 2020-10-19 [facility] [id number] 21:04:00 01:30:00 Shannon Contreras [id number] [place] [id number] [place] [address] [id number] [facility] 2020-10-18 2020-10-19 Emergency [facility] [id number] [facility] 21:04:00 01:30:00 Shannon Contreras [id number] kayleigh [facility] [id number] [facility] [id number] [address] 2020-10-18 2020-10-18 Emergency X [facility] ERT [id number] [facility] 21:04:00 21:04:00 SHANNON victor [facility] 2020-10-14 2020-10-14 Emergency ER [facility] Emergency [id number] SLE 23:24:00 23:24:00 2020-06-07 2020-06-07 Emergency ER [facility] Emergency [id number] SLE 18:37:00 18:37:00 2020-05-06 2020-05-06 Emergency ER [facility] Emergency [id number] [facility] 20:45:00 20:45:00 2020-04-17 2020-04-17 Emergency ER SLE Emergency [id number] SLE 06:45:00 06:45:00 2020-04-17 2020-04-17 Emergency ER [facility] [id number] [facility] 00:00:00 00:00:00 Results Test Description Test Time Test Comments Results Result Comments Source AFB culture + smear (sputum only) 2023-06-09 08:31:56 Test Item Value Reference Range Interpretation Comme nts Result (test code = 6463-4) No acid-fast bacilli isolated in 42 day s AFB Smear (test code = 47019-2) No acid [facility]illi [facility]2023-06-09 08:31:56 Test Item Value Reference Range Interpretation Comments Result (test code = No acid-fast bacilli 6463-4) isolated in 42 days AFB Smear (test code = No acid fast bacilli 45638-9) [facility]sp[facility] only)2023-06-09 08:31:56 Test Item Value Reference Range Interpretation Comments Result (test code = No acid-fast bacilli 6463-4) isolated in 42 days AFB Smear (test code = No acid fast bacilli 89854-8) [facility]sp[facility] only)2023-06-09 08:31:56 Test Item Value Reference Range Interpretation Comments Result (test code = No acid-fast bacilli 6463-4) isolated in 42 days AFB Smear (test code = No acid fast bacilli 80536-0) [facility] (SPUTUM ONLY)2023-06-09 08:31:56 Test Item Value Reference Range Interpretation Comments CULTURE (BEAKER) (test No acid-fast bacilli code = 1095) isolated in 42 days AFB SMEAR (BEAKER) No acid fast bacilli (test code = 994) seen Fungus culture + [id number] 07:46:55 Test Item Value Reference Range Interpretation Comments Result (test code = No fungus isolated to 6463-4) date; additional report will follow if positive. Fungus Smear (test No fungal elements seen code = 1406) [facility] + [id number] 07:46:55 Test Item Value Reference Range Interpretation Comments Result (test code = No fungus isolated to 6463-4) date; additional report will follow if positive. Fungus Smear (test No fungal elements seen code = 1406) [facility] + [id number] 07:46:55 Test Item Value Reference Range Interpretation Comments Result (test code = No fungus isolated to 6463-4) date; additional report will follow if positive. Fungus Smear (test No fungal elements seen code = 1406) [facility] + [id number] 07:46:55 Test Item Value Reference Range Interpretation Comments Result (test code = No fungus isolated to 6463-4) date; additional report will follow if positive. Fungus Smear (test No fungal elements seen code = 1406) [facility] + [id number] 07:46:55 Test Item Value Reference Range Interpretation Comments Result (test code = No fungus isolated to 6463-4) date; additional report will follow if positive. Fungus Smear (test No fungal elements seen code = 1406) [facility] + [id number] 07:46:55 Test Item Value Reference Range Interpretation Comments Result (test code = No fungus isolated to 6463-4) date; additional report will follow if positive. Fungus Smear (test No fungal elements seen code = 1406) [facility] + [id number] 07:46:55 Test Item Value Reference Range Interpretation Comments Result (test code = No fungus isolated to 6463-4) date; additional report will follow if positive. Fungus Smear (test No fungal elements seen code = 1406) [facility] + [id number] 07:46:55 Test Item Value Reference Range Interpretation Comments CULTURE (BEAKER) No fungus isolated to (test code = 1095) date; additional report will follow if positive. FUNGUS SMEAR (BEAKER) No fungal elements seen (test code = 1406) CF Respiratory Culture ([facility] only)2023-04-25 12:13:05 Test Item Value Reference Range Interpretation Comments Result (test code = 1+ Beta-hemolytic A 6463-4) streptococcus group B, by serological grouping IKER (test code = IKER) 4+ Normal respiratory maria del carmen present Lab Interpretation Abnormal (test code = 94080-4) [facility] ([facility])2023-04-25 12:13:05 Test Item Value Reference Range Interpretation Comments Result (test code = 1+ Beta-hemolytic A 6463-4) streptococcus group B, by serological grouping IKER (test code = IKER) 4+ Normal respiratory maria del carmen present Lab Interpretation Abnormal (test code = 77377-3) [facility] ([facility])2023-04-25 12:13:05 Test Item Value Reference Range Interpretation Comments Result (test code = 1+ Beta-hemolytic A 6463-4) streptococcus group B, by serological grouping IKER (test code = IKER) 4+ Normal respiratory maria del carmen present Lab Interpretation Abnormal (test code = 46808-0) [facility] ([facility])2023-04-25 12:13:05 Test Item Value Reference Range Interpretation Comments Result (test code = 1+ Beta-hemolytic A 6463-4) streptococcus group B, by serological grouping IKER (test code = IKER) 4+ Normal respiratory maria del carmen present Lab Interpretation Abnormal (test code = 45764-4) [facility] ([facility])2023-04-25 12:13:05 Test Item Value Reference Range Interpretation Comments Result (test code = 1+ Beta-hemolytic A 6463-4) streptococcus group B, by serological grouping IKER (test code = IKER) 4+ Normal respiratory maria del carmen present Lab Interpretation Abnormal (test code = 35356-7) [facility] ([facility])2023-04-25 12:13:05 Test Item Value Reference Range Interpretation Comments Result (test code = 1+ Beta-hemolytic A 6463-4) streptococcus group B, by serological grouping IKER (test code = IKER) 4+ Normal respiratory maria del carmen present Lab Interpretation Abnormal (test code = 41604-4) [facility] ([facility] only[facility]2023-04-25 12:13:05 Test Item Value Reference Range Interpretation Comments Result (test code = 1+ Beta-hemolytic A 6463-4) streptococcus group B, by serological grouping IKER (test code = IKER) 4+ Normal respiratory maria del carmen present Lab Interpretation Abnormal (test code = 93744-3) [facility] [id number] 12:13:05 Test Item Value Reference Range Interpretation Comments CULTURE (BEAKER) A 1+ Beta-hem olytic (test code = 1095) streptoco ccus group B, by serological rc uping 4+ Normal respiratory maria del carmen presentSPIN/CONCENTRATION [id number] 14:31:51 Test Item Value Reference Range Interpretation Comments Concentration charged (test code = Done 2657) [facility] [id number] 14:31:51 Test Item Value Reference Range Interpretation Comments Concentration charged (test code = Done 2657) [facility] [id number] 14:31:51 Test Item Value Reference Range Interpretation Comments Concentration charged (test code = Done 2657) [facility] [id number] 14:31:51 Test Item Value Reference Range Interpretation Comments Concentration charged (test code = Done 2657) [facility] CenterPIN/CONCENTRATION [id number] 14:31:51 Test Item Value Reference Range Interpretation Comments Concentration charged (test code = Done 2657) [facility] [id number] 14:31:51 Test Item Value Reference Range Interpretation Comments Concentration charged (test code = Done 2657) [facility] [id number] 14:31:51 Test Item Value Reference Range Interpretation Comments Concentration charged (test code = Done 2657) [facility] [id number] 14:31:51 Test Item Value Reference Range Interpretation Comments CONCENTRATION CHARGED (BEAKER) (test Done code = 2657) XR ABDOMEN/KUB 1 VIEW [id number] 14:59:45 [facility] CENTERName: VELIA RIVERA : 1975 Sex: MAbdomen , one viewHistory:Abdominal distentionComparison:04/14/2023Findings:Nonspecific mild prominenceof the small and large bowel, similar toprevious study. No definite free air, although assessment istechnically limited by supine patient positioning. No definite bowelpneumatosis or portal venous gas.No calcifications along the expectedcourse of the urinary tract.IMPRESSION:Impression:No significantinterval change.Electronically Signed By: Bennett Tran MD04/16/2023 15:01 CDTWorkstation Name: [id number] 08:33:58 Test Item Value Reference Range Interpretation Comments MAGNESIUM (BEAKER) (test code = 1.7 mg/dL 1.6-2.6 627) Pattern And Chain Maker ID - [id number] 08:33:58 Test Item Value Reference Range Interpretation Comments PHOSPHORUS (BEAKER) (test code = 4.0 mg/dL 2.3-4.7 604) Pattern And Chain Maker ID - MARCOBASIC METABOLIC [id number] 08:33:57 Test Item Value Reference Range Interpretation [...] not appl icable for dialysis patien ts Pattern And Chain Maker ID - [id number] 06:54:06 Test Item Value Reference Range Interpretation Comments MAGNESIUM (BEAKER) (test code = 1.6 mg/dL 1.6-2.6 627) Pattern And Chain Maker ID - [id number] 06:54:06 Test Item Value Reference Range Interpretation Comments PHOSPHORUS (BEAKER) (test code = 3.6 mg/dL 2.3-4.7 604) Pattern And Chain Maker ID - MARCOBASIC METABOLIC [id number] 06:54:05 Test Item Value Reference Range Interpretation [...] not appl icable for dialysis patien ts Pattern And Chain Maker ID - MARCOXR ABDOMEN/KUB 1 VIEW [id number] 14:40:26 [facility] 1975 Sex: MCLINICAL HISTORY: DIOSTECHNIQUE: Supine abdomenCOMPARISON: 04/11/2023IMPRESSION:Previous colonic stoolas mostly evacuated. There is new nonspecificmild gaseous prominence of small bowel throughout the abdomen. Free airand air-fluid levels are not definitively seen, but cannot be excludedon the supine view. Right abdominal chain sutures are again seen.Electronically Signed By: Murray Gomez04/14/2023 14:52 CDTWorkstation Name: [id number] 04:59:53 Test Item Value Reference Range Interpretation Comments PHOSPHORUS (BEAKER) (test code = 3.3 mg/dL 2.3-4.7 604) Pattern And Chain Maker ID - DBBASIC METABOLIC [id number] 04:59:52 Test Item Value Reference Range Interpretation [...] (test code = 697) EGFR (BEAKER) 93 Interpretati on of eGFR (test code = [...] not appl icable for dialysis patien ts Pattern And Chain Maker ID - [id number] 04:59:52 Test Item Value Reference Range Interpretation Comments MAGNESIUM (BEAKER) (test code = 1.5 mg/dL 1.6-2.6 L 627) Pattern And Chain Maker ID - [id number] 04:42:01 Test Item Value Reference Range Interpretation Comments MAGNESIUM (BEAKER) (test code = 1.7 mg/dL 1.6-2.6 627) Pattern And Chain Maker ID - [id number] 04:42:01 Test Item Value Reference Range Interpretation Comments PHOSPHORUS (BEAKER) (test code = 2.9 mg/dL 2.3-4.7 604) Pattern And Chain Maker ID - ADMINBASIC METABOLIC [id number] 04:42:00 Test Item Value Reference Range Interpretation [...] not appl icable for dialysis patien ts Pattern And Chain Maker ID - [id number] 04:49:25 Test Item Value Reference Range Interpretation Comments PHOSPHORUS (BEAKER) (test code = 3.1 mg/dL 2.3-4.7 604) Pattern And Chain Maker ID - EOOBASIC METABOLIC [id number] 04:49:24 Test Item Value Reference Range Interpretation [...] not appl icable for dialysis patien ts Pattern And Chain Maker ID - [id number] 04:49:24 Test Item Value Reference Range Interpretation Comments MAGNESIUM (BECONSUELO) (test code = 2.2 mg/dL 1.6-2.6 627) Pattern And Chain Maker ID - EOOPOC-Glucose [id number] 16:47:48 Test Item Value Reference Range Interpretation Comments POC-Glucose Meter (test 95 mg/dL 70-110 : TE STED AT [facility] code = 1538) [address] [facility], [address]: Pattern And Chain Maker/Techni rian ID = [id number] for Kendall-Shead (contract), Jailyn thia Lab Interpretation (test Normal code = 93367-5) [facility]-Glucose [id number] 16:47:48 Test Item Value Reference Range Interpretation Comments POC-Glucose Meter (test 95 mg/dL 70-110 : TE STED AT [facility] code = 1538) [address] [facility], [address]: Pattern And Chain Maker/Techni rian ID = [id number] for Kendall-Shead (contract), Jailyn thia Lab Interpretation (test Normal code = 92477-5) [facility]-Glucose [id number] 16:47:48 Test Item Value Reference Range Interpretation Comments POC-Glucose Meter (test 95 mg/dL 70-110 : TE STED AT [facility] code = 1538) [address] [facility], [address]: Pattern And Chain Maker/Techni rian ID = [id number] for Kendall-Shead (contract), Jailyn thia Lab Interpretation (test Normal code = 35721-9) [facility]-Glucose [id number] 16:47:48 Test Item Value Reference Range Interpretation Comments POC-Glucose Meter (test 95 mg/dL 70-110 : TE STED AT [facility] code = 1538) [address] [facility], [address]: Pattern And Chain Maker/Techni rian ID = [id number] for Kendall-Shead (contract), Jailyn thia Lab Interpretation (test Normal code = 60308-2) [facility]-Glucose [id number] 16:47:48 Test Item Value Reference Range Interpretation Comments POC-Glucose Meter (test 95 mg/dL 70-110 : TE STED AT [facility] code = 1538) [address] [facility], [address]: Pattern And Chain Maker/Techni rian ID = [id number] for Kendall-Shead (contract), Jailyn thia Lab Interpretation (test Normal code = 90193-1) [facility]-Glucose [id number] 16:47:48 Test Item Value Reference Range Interpretation Comments POC-Glucose Meter (test 95 mg/dL 70-110 : TE STED AT [facility] code = 1538) [address] [facility], [address]: Pattern And Chain Maker/Techni rian ID = [id number] for Kendall-Shead (contract), Jailyn thia Lab Interpretation (test Normal code = 54535-9) [facility]-Glucose [id number] 16:47:48 Test Item Value Reference Range Interpretation Comments POC-Glucose Meter (test 95 mg/dL 70-110 : TE STED AT [facility] code = 1538) [address] [facility], [address]: Pattern And Chain Maker/Techni rian ID = [id number] for Kendall-Shead (contract), Jailyn thia Lab Interpretation (test Normal code = 73306-7) [facility]-GLUCOSE [id number] 16:47:48 Test Item Value Reference Range Interpretation Comments POC-GLUCOSE METER 95 mg/dL 70-110 : TESTED A T [facility] [address] (BEAKER) (test code [facility], = 1538) [address]: Pattern And Chain Maker/Techni rian ID = [id number] for Brandie (contract)Jailyn HEMOGLOBIN [id number] 12:17:52 Test Item Value Reference Range Interpretation Comments HEMOGLOBIN A1C 5.9 % See_Comment H [Automated m essage] ELECTROPHORESIS (CLARKAKER) The system which (test code = 3811) generated this result transmitted ref erence range: <=5.6%. The reference range was not used to int erpret this result as normal/abnormal . "The A1c is measured using a NGSP-certified method. HbA1c value equal to or greater than 6.5% as thediagnosis cutoff for diabetes. An HbA1c value of 5.7- 6.4% indicates increased risk for diabetes (prediabetes)."Pattern And Chain Maker ID - [id number] ID - ADMXR ABDOMEN/KUB 1 VIEW [id number] 12:04:44 [facility] 1975 Sex: MCLINICAL HISTORY: constipationTECHNIQUE: Supine abdomenCOMPARISON: 02/20/2023IMPRESSION:There is a large amount of stool throughout the colon. There are a fewmildly prominent air- filled loops of small bowel in the central abdomen.Free air and air-fluid levels are not definitively seen, but cannot beexcluded on the supine view.Electronically Signed By: Murray Gomez04/11/2023 12:06 CDTWorkstation Name: [id number] 10:41:46 Test Item Value Reference Range Interpretation Comments PHOSPHORUS (BEAKER) 2.7 mg/dL 2.3-4.7 Specimen slightly (test code = 604) hemolyzed Pattern And Chain Maker ID - MARCOCOMPREHENSIVE METABOLIC [id number] 10:41:46 Test Item Value Reference Range Interpretation [...] not appl icable for dialysis patien ts Pattern And Chain Maker ID - AGATHAOGAMMA GLUTAMYL TRANSFERASE (GGT)2023-04-11 10:41:46 Test Item Value Reference Range Interpretation Comments GAMMA GLUTAMYL 24 U/L 9-64 Specimen slig htly TRANSFERASE (BEAKER) hemolyz ed (test code = 364) Pattern And Chain Maker ID - [id number] 10:41:45 Test Item Value Reference Range Interpretation Comments MAGNESIUM (BEAKER) 1.5 mg/dL 1.6-2.6 L Specimen slightly (test code = 627) hemolyzed Pattern And Chain Maker ID - MARCOCBC W/PLT COUNT & AUTO [id number] 10:22:44 Test Item Value Reference Range Interpretation [...] (BEAKER) (test code = 2801) BASIC METABOLIC [id number] 06:35:51 Test Item Value Reference Range Interpretation [...] not appl icable for dialysis patien ts Pattern And Chain Maker ID - MMCBC W/PLT COUNT & AUTO [id number] 06:21:41 Test Item Value Reference Range Interpretation [...] (BEAKER) (test code = 2801) BASIC METABOLIC [id number] 05:53:04 Test Item Value Reference Range Interpretation [...] not as accur ate as Creatinine Collette pbalo in predicting glom erular filtration rate . Estimated GFR is not appl icable for dialysis patien ts Pattern And Chain Maker ID - ADMINCBC W/PLT COUNT & AUTO [id number] 05:41:32 Test Item Value Reference Range Interpretation [...] K/uL 0.00-0.00 H (CELLAVISION)(BEAKER) (test code = 3358) TOTAL COUNTED (BEAKER) (test code 100 = 1351) MANUAL NRBC PER 100 CELLS (BEAKER) 1 /100 WBC 0-0 H (test code = 1353) PLT MORPHOLOGY (BEAKER) (test code Normal = 486) SMUDGE CELLS (BEAKER) (test code = Present 1371) ANISOCYTOSIS (BEAKER) (test code = 1+ few 961) MACROCYTES (BEAKER) (test code = 1+ few 964) PLATELET CONCENTRATION Adequate (CELLAVISION)(BEAKER) (test code = 3438) Pattern And Chain Maker ID - Felipe Dato-onUser comments: Slide comments:CBC W/PLT COUNT & AUTO [id number] 07:24:48 Test Item Value Reference Range Interpretation [...] (BEAKER) (test code = 413) BASIC METABOLIC [id number] 06:22:11 Test Item Value Reference Range Interpretation [...] (test code = 697) EGFR (BEAKER) 88 Interpretati on of eGFR (test code = [...] not appl icable for dialysis patien ts Pattern And Chain Maker ID - ADMINBASIC METABOLIC [id number] 05:40:16 Test Item Value Reference Range Interpretation [...] not appl icable for dialysis patien ts Pattern And Chain Maker ID - CHAMP WCBC (HEMOGRAM ONLY)2023-02-23 05:17:12 [...] (BEAKER) (test code = 413) BASIC METABOLIC [id number] 05:17:54 Test Item Value Reference Range Interpretation [...] not appl icable for dialysis patien ts Pattern And Chain Maker ID - CHAMP WCBC (HEMOGRAM ONLY)2023-02-22 04:51:21 [...] 0-0 (BEAKER) (test code = 413) HEMOGLOBIN [id number] 12:49:22 Test Item Value Reference Range Interpretation Comments HEMOGLOBIN A1C 5.7 % See_Comment H [Automated m essage] ELECTROPHORESIS (BEAKER) The system which (test code = 6956) generated this result transmitted ref erence range: <=5.6%. The reference range was not used to int erpret this result as normal/abnormal . "The A1c is measured using a [facility]-certified method. HbA1c value equal to or greater than 6.5% as thediagnosis cutoff for diabetes. An HbA1c value of 5.7- 6.4% indicates increased risk for diabetes (prediabetes)."Pattern And Chain Maker ID - ADM [id number] 04:08:29 Test Item Value Reference Range Interpretation Comments MAGNESIUM (BEAKER) (test code = 1.6 mg/dL 1.6-2.6 627) Pattern And Chain Maker ID - CHAMP WGAMMA GLUTAMYL TRANSFERASE (GGT)2023-02-21 04:08:29 Test Item Value Reference Range Interpretation Comments GAMMA GLUTAMYL TRANSFERASE (BEAKER) 34 U/L 9-64 (test code = 364) Pattern And Chain Maker ID - CHAMP WBASIC METABOLIC [id number] 04:08:28 Test Item Value Reference Range Interpretation [...] not as accur ate as Creatinine Collette jadece in predicting glom erular filtration rate . Estimated GFR is not appl icable for dialysis patien ts Pattern And Chain Maker ID - CHAMP MEDEIROS, ABDOMEN/KUB, 1 VIEW [id number] 09:37:00Reason for exam:->severe constipation [facility] 1975 Sex: [...] MDReport Verified Date/Time: 02/20/2023 09:37:59 COMPREHENSIVE METABOLIC [id number] 09:23:04 Test Item Value Reference Range Interpretation [...] not appl icable for dialysis patien ts Pattern And Chain Maker ID - [id number] 09:23:04 Test Item Value Reference Range Interpretation Comments MAGNESIUM (BEAKER) (test code = 1.4 mg/dL 1.6-2.6 L 627) Pattern And Chain Maker ID - ADMINPROTHROMBIN TIME/[id number] 09:00:22 Test Item Value Reference Range Interpretation [...] mechanical heart valves.CBC W/PLT COUNT & AUTO [id number] 08:59:05 Test Item Value Reference Range Interpretation [...] (test code = 2801) Fungus culture + [id number] 00:42:51 Test Item Value Reference Range Interpretation Comments Result (test code = No fungus isolated in 6463-4) 28 days Fungus Smear (test No fungi seen code = 1406) [facility] [id number] 00:42:51 Test Item Value Reference Range Interpretation Comments Result (test code = No fungus isolated in 6463-4) 28 days Fungus Smear (test No fungi seen code = 1406) [facility] [id number] 00:42:51 Test Item Value Reference Range Interpretation Comments Result (test code = No fungus isolated in 6463-4) 28 days Fungus Smear (test No fungi seen code = 1406) [facility] + [id number] 00:42:51 Test Item Value Reference Range Interpretation Comments Result (test code = No fungus isolated in 6463-4) 28 days Fungus Smear (test No fungi seen code = 1406) [facility] [id number] 00:42:51 Test Item Value Reference Range Interpretation Comments CULTURE (BEAKER) (test No fungus isolated in code = 1095) 28 days FUNGUS SMEAR (BEAKER) No fungi seen (test code = 1406) [facility] RESPIRATORY [id number] 12:41:41 Test Item Value Reference Interpretation Comments [...] S [Auto mated message] 1) The system [employer] generated this result transmit joann reference range : Susceptible 0-1 6 , Resistant <0 or >16 . The reference range was not u sed to interpret th is result as normal/abnormal . Aztreonam (test code See_Comment S [Autom ated message] = 32) The system [employer] generated this result transmit joann reference range : Susceptible 0-8 , Resistant <0 or >8 . The reference r taurus was not used to interpret this result as normal/abnormal . Cefepime (test code = See_Comment R [Auto mated message] 51) The system [employer] generated this result transmit joann reference range : Susceptible 0-8 , Resistant <0 or >8 . The reference r taurus was not used to interpret this result as normal/abnormal . Ceftazidime (test See_Comment S [Automate d message] code = 27) The system [employer] generated this result transmit joann reference range : Susceptible 0-8 , Resistant <0 or >8 . The reference r taurus was not used to interpret this result as normal/abnormal . Ciprofloxacin (test See_Comment S [Automa joann message] code = 7) The system [employer] generated this result transmit joann reference range : Susceptible 0-0 .5 , Resistant <0 or >.5 . The reference range was not u sed to interpret th is result as normal/abnormal . Gentamicin (test code See_Comment S [Auto mated message] = 18) The system [employer] generated this result transmit joann reference range : Susceptible 0-4 , Resistant <0 or >4 . The reference r taurus was not used to interpret this result as normal/abnormal . Levofloxacin (test See_Comment S [Automat ed message] code = 22) The system [employer] generated this result transmit joann reference range : Susceptible 0-1 , Resistant <0 or >1 . The reference r taurus was not used to interpret this result as normal/abnormal . Meropenem (test code See_Comment S [Autom ated message] = 34) The system [employer] generated this result transmit joann reference range : Susceptible 0-2 , Resistant <0 or >2 . The reference r taurus was not used to interpret this result as normal/abnormal . Piperacillin (test See_Comment S [Automat ed message] code = 24) The system [employer] generated this result transmit joann reference range [...] [Auto mated message] = 25) The system [employer] generated this result transmit joann reference range [...] S Sulfamethoxazole (test code = 47) CULTURE (MacuCLEARAKER) ESCHERICHIA COLI A <1+ Esc herichia coli [...] 3+ Normal respiratory maria del carmen presentSPIN/CONCENTRATION [id number] 13:00:47 Test Item Value Reference Range Interpretation Comments Concentration charged (test code = Done 265) [facility] [id number] 13:00:47 Test Item Value Reference Range Interpretation Comments Concentration charged (test code = Done 2656) [facility] [id number] 13:00:47 Test Item Value Reference Range Interpretation Comments Concentration charged (test code = Done 2656) [facility] [id number] 13:00:47 Test Item Value Reference Range Interpretation Comments Concentration charged (test code = Done 2656) [facility] [id number] 13:00:47 Test Item Value Reference Range Interpretation Comments CONCENTRATION CHARGED (BEAKER) (test Done code = 2657) RAD, ABDOMEN/KUB, 1 VIEW [id number] 09:41:00Reason for exam:->constipation [facility] 1975 Sex: MFINAL REPORT Abdomen x-ray Clinical Diagnosis: ConstipationComparison: 09/25/2022Views: Two supine views of abdomen obtained Findings/impression:There is persistent gaseous distention of loops bowel throughout the abdomen, similar to the prior examination. Findings can be seen in the setting of ileus versus distal bowel obstruction. No intraperitoneal free air is appreciated on this supine view examination. Signed: Donato Varelaort Verified Date/Time: 09/26/2022 09:41:17 BASIC METABOLIC [id number] 08:14:57 Test Item Value Reference Range Interpretation [...] (test code = 697) EGFR (BEAKER) 79 Interpretati on of eGFR (test code = [...] not appl icable for dialysis patien ts Pattern And Chain Maker ID - CHAMP [id number] 08:14:56 Test Item Value Reference Range Interpretation Comments MAGNESIUM (BEAKER) 1.7 mg/dL 1.6-2.6 Specimen slightly (test code = 627) hemolyzed Pattern And Chain Maker ID - CHAMP WRAD, ABDOMEN/KUB, 1 VIEW [id number] 14:51:00Reason for exam:->constipation [facility]AReyna SALAS : 1975 Sex: MFINAL REPORT TECHNIQUE: RAD, [...] SARS-Co V-2 (test code = target nucleic 45905-8) acids are not detected in thi s [...] of COVID-19 by the ir healthcare provider. IKER (test code = This test has been IKER) authorized by FDA under an EUA for [...] revoked sooner. Fact Sheet for Healthcare Providers: https://www.[employer]/Documents/Xp ert%20Xpress%20SAR S%20CoV-2/Fact%20S heets/3023802%20S ARS-COV-2%20HEALTH CARE%20PROVIDERS%2 0FACT%20SHEET.pdf Fact Sheet for Healthcare Patients: https://www.[employer]/Documents/Xp ert%20Xpress%20SAR S%20CoV-2/Fact%20S heets/302-3801%20S ARS-COV-2%20PATIEN T%20FACT%20SHEET.p df Lab Interpretation Normal (test code = 58534-9) [facility]2022-09-25 14:50:31 Test Item Value Reference Interpretation Comments Range SARS-COV2/RT-PCR Negative Negative The SARS-Co V-2 (test code = target nucleic 30439-2) acids are not detected in thi s [...] of COVID-19 by the ir healthcare provider. IKER (test code = This test has been IKER) authorized by FDA under an EUA for [...] revoked sooner. Fact Sheet for Healthcare Providers: https://www.[employer]/Documents/Xp ert%20Xpress%20SAR S%20CoV-2/Fact%20S heets/302-3802%20S ARS-COV-2%20HEALTH CARE%20PROVIDERS%2 0FACT%20SHEET.pdf Fact Sheet for Healthcare Patients: https://www.[employer]/Documents/Xp ert%20Xpress%20SAR S%20CoV-2/Fact%20S heets/302-3801%20S ARS-COV-2%20PATIEN T%20FACT%20SHEET.p df Lab Interpretation Normal (test code = 49725-4) [facility])2022-09-25 14:50:31 Test Item Value Reference Interpretation Comments Range SARS-COV2/RT-PCR Negative Negative The SARS-Co V-2 (test code = target nucleic 85252-3) acids are not detected in thi s [...] of COVID-19 by the ir healthcare provider. IKER (test code = This test has been IEKR) authorized by FDA under an EUA for [...] revoked sooner. Fact Sheet for Healthcare Providers: https://www.[employer]/Documents/Xp ert%20Xpress%20SAR S%20CoV-2/Fact%20S heets/302-8625%20S ARS-COV-2%20HEALTH CARE%20PROVIDERS%2 0FACT%20SHEET.pdf Fact Sheet for Healthcare Patients: https://www.[employer]/Documents/Xp ert%20Xpress%20SAR S%20CoV-2/Fact%20S heets/302-1851%20S ARS-COV-2%20PATIEN T%20FACT%20SHEET.p df Lab Interpretation Normal (test code = 69051-0) [facility])2022-09-25 14:50:31 Test Item Value Reference Interpretation Comments Range SARS-COV2/RT-PCR Negative Negative The SARS-Co V-2 (test code = target nucleic 33701-8) acids are not detected in thi s [...] of COVID-19 by the ir healthcare provider. IKER (test code = This test has been IKER) authorized by FDA under an EUA for [...] revoked sooner. Fact Sheet for Healthcare Providers: https://www.[employer]/Documents/Xp ert%20Xpress%20SAR S%20CoV-2/Fact%20S heets/302-3802%20S ARS-COV-2%20HEALTH CARE%20PROVIDERS%2 0FACT%20SHEET.pdf Fact Sheet for Healthcare Patients: https://www.[employer]/Documents/Xp ert%20Xpress%20SAR S%20CoV-2/Fact%20S heets/302-3801%20S ARS-COV-2%20PATIEN T%20FACT%20SHEET.p df Lab Interpretation Normal (test code = 93238-4) [facility]2022-09-25 14:50:31 Test Item Value Reference Interpretation Comments Range SARS-COV2/RT-PCR Negative Negative The SARS-Co V-2 (test code = target nucleic 30750-7) acids are not detected in thi s [...] of COVID-19 by the ir healthcare provider. IKER (test code = This test has been IKER) authorized by FDA under an EUA for [...] revoked sooner. Fact Sheet for Healthcare Providers: https://www.[employer]/Documents/Xp ert%20Xpress%20SAR S%20CoV-2/Fact%20S heets/302-3802%20S ARS-COV-2%20HEALTH CARE%20PROVIDERS%2 0FACT%20SHEET.pdf Fact Sheet for Healthcare Patients: https://www.[employer]/Documents/Xp ert%20Xpress%20SAR S%20CoV-2/Fact%20S heets/302-3801%20S ARS-COV-2%20PATIEN T%20FACT%20SHEET.p df Lab Interpretation Normal (test code = 65723-5) [facility])2022-09-25 14:50:31 Test Item Value Reference Interpretation Comments Range SARS-COV2/RT-PCR Negative Negative The SARS-Co V-2 (test code = target nucleic 10988-3) acids are not detected in thi s [...] of COVID-19 by the ir healthcare provider. IKER (test code = This test has been IKER) authorized by FDA under an EUA for [...] revoked sooner. Fact Sheet for Healthcare Providers: https://www.Genemation/Documents/Xp ert%20Xpress%20SAR S%20CoV-2/Fact%20S heets/302-3802%20S ARS-COV-2%20HEALTH CARE%20PROVIDERS%2 0FACT%20SHEET.pdf Fact Sheet for Healthcare Patients: https://www.Genemation/Documents/Xp ert%20Xpress%20SAR S%20CoV-2/Fact%20S heets/302-3801%20S ARS-COV-2%20PATIEN T%20FACT%20SHEET.p df Lab Interpretation Normal (test code = 52654-8) [facility] 14:50:31 Test Item Value Reference Interpretation Comments Range SARS-COV2/RT-PCR Negative Negative The SARS-Co V-2 (test code = target nucleic 08562-1) acids are not detected in thi s [...] of COVID-19 by the ir healthcare provider. IKER (test code = This test has been IKER) authorized by FDA under an EUA for [...] revoked sooner. Fact Sheet for Healthcare Providers: https://www.Genemation/Documents/Xp ert%20Xpress%20SAR S%20CoV-2/Fact%20S heets/302-3802%20S ARS-COV-2%20HEALTH CARE%20PROVIDERS%2 0FACT%20SHEET.pdf Fact Sheet for Healthcare Patients: https://www.Genemation/Documents/Xp ert%20Xpress%20SAR S%20CoV-2/Fact%20S heets/302-3801%20S ARS-COV-2%20PATIEN T%20FACT%20SHEET.p df Lab Interpretation Normal (test code = 34149-2) [facility]2022-09-25 14:50:31 Test Item Value Reference Interpretation Comments Range SARS-COV2/RT-PCR Negative Negative The SARS-Co V-2 (test code = target nucleic 32674-2) acids are not detected in thi s [...] om SARS-CoV-2 in a nasopharyngeal swab specimen [facility] from individual s suspected of COVID-19 by the ir healthcare provider. IKER (test code = This test has been IKER) authorized by FDA under an EUA for [...] revoked sooner. Fact Sheet for Healthcare Providers: https://www.Genemation/Documents/Xp ert%20Xpress%20SAR S%20CoV-2/Fact%20S heets/302-3802%20S ARS-COV-2%20HEALTH CARE%20PROVIDERS%2 0FACT%20SHEET.pdf Fact Sheet for Healthcare Patients: https://www.Genemation/Documents/Xp ert%20Xpress%20SAR S%20CoV-2/Fact%20S heets/302-3801%20S ARS-COV-2%20PATIEN T%20FACT%20SHEET.p df Lab Interpretation Normal (test code = 62963-5) [facility]2022-09-25 14:50:31 Test Item Value Reference Interpretation Comments Range SARS-COV2/RT-PCR Negative Negative The SARS-Co V-2 (test code = target nucleic 77675-5) acids are not detected in thi s [...] of COVID-19 by the ir healthcare provider. IKER (test code = This test has been IKER) authorized by FDA under an EUA for [...] revoked sooner. Fact Sheet for Healthcare Providers: https://www.Genemation/Documents/Xp ert%20Xpress%20SAR S%20CoV-2/Fact%20S heets/302-3802%20S ARS-COV-2%20HEALTH CARE%20PROVIDERS%2 0FACT%20SHEET.pdf Fact Sheet for Healthcare Patients: https://www.Genemation/Documents/Xp ert%20Xpress%20SAR S%20CoV-2/Fact%20S heets/302-3801%20S ARS-COV-2%20PATIEN T%20FACT%20SHEET.p df Lab Interpretation Normal (test code = 27198-7) [facility]2022-09-25 14:50:31 Test Item Value Reference Interpretation Comments Range SARS-COV2/RT-PCR Negative Negative The SARS-Co V-2 (test code = target nucleic 28456-7) acids are not detected in thi s [...] of COVID-19 by the ir healthcare provider. IKER (test code = This test has been IKER) authorized by FDA under an EUA for [...] revoked sooner. Fact Sheet for Healthcare Providers: https://www.Genemation/Documents/Xp ert%20Xpress%20SAR S%20CoV-2/Fact%20S heets/302-3802%20S ARS-COV-2%20HEALTH CARE%20PROVIDERS%2 0FACT%20SHEET.pdf Fact Sheet for Healthcare Patients: https://wwwREach/Documents/Xp ert%20Xpress%20SAR S%20CoV-2/Fact%20S heets/302-3801%20S ARS-COV-2%20PATIEN T%20FACT%20SHEET.p df Lab Interpretation Normal (test code = 37104-3) [facility]2022-09-25 14:50:31 Test Item Value Reference Interpretation Comments Range SARS-COV2/RT-PCR Negative Negative The SARS-Co V-2 (test code = target nucleic 51629-5) acids are not detected in thi s [...] of COVID-19 by the ir healthcare provider. IKER (test code = This test has been IKER) authorized by FDA under an EUA for [...] revoked sooner. Fact Sheet for Healthcare Providers: https://www.Genemation/Documents/Xp ert%20Xpress%20SAR S%20CoV-2/Fact%20S heets/302-3802%20S ARS-COV-2%20HEALTH CARE%20PROVIDERS%2 0FACT%20SHEET.pdf Fact Sheet for Healthcare Patients: https://wwwREach/Documents/Xp ert%20Xpress%20SAR S%20CoV-2/Fact%20S heets/302-3801%20S ARS-COV-2%20PATIEN T%20FACT%20SHEET.p df Lab Interpretation Normal (test code = 17059-0) [facility]2022-09-25 14:50:31 Test Item Value Reference Interpretation Comments Range SARS-COV2/RT-PCR Negative Negative The SARS-Co V-2 (test code = target nucleic 56020-6) acids are not detected in thi s [...] of COVID-19 by the ir healthcare provider. IKER (test code = This test has been IKER) authorized by FDA under an EUA for [...] revoked sooner. Fact Sheet for Healthcare Providers: https://www.Genemation/Documents/Xp ert%20Xpress%20SAR S%20CoV-2/Fact%20S heets/302-3802%20S ARS-COV-2%20HEALTH CARE%20PROVIDERS%2 0FACT%20SHEET.pdf Fact Sheet for Healthcare Patients: https://www.Genemation/Documents/Xp ert%20Xpress%20SAR S%20CoV-2/Fact%20S heets/302-3801%20S ARS-COV-2%20PATIEN T%20FACT%20SHEET.p df Lab Interpretation Normal (test code = 74850-1) [facility]2022-09-25 14:50:31 Test Item Value Reference Interpretation Comments Range SARS-COV2/RT-PCR Negative Negative The SARS-Co V-2 (test code = target nucleic 62335-7) acids are not detected in thi s [...] of COVID-19 by the ir healthcare provider. IKER (test code = This test has been IKER) authorized by FDA under an EUA for [...] revoked sooner. Fact Sheet for Healthcare Providers: https://www.Genemation/Documents/Xp ert%20Xpress%20SAR S%20CoV-2/Fact%20S heets/302-3802%20S ARS-COV-2%20HEALTH CARE%20PROVIDERS%2 0FACT%20SHEET.pdf Fact Sheet for Healthcare Patients: https://www.Genemation/Documents/Xp ert%20Xpress%20SAR S%20CoV-2/Fact%20S heets/302-3801%20S ARS-COV-2%20PATIEN T%20FACT%20SHEET.p df Lab Interpretation Normal (test code = 22206-2) [facility]2022-09-25 14:50:31 Test Item Value Reference Interpretation Comments Range SARS-COV2/RT-PCR Negative Negative The SARS-Co V-2 (test code = target nucleic 30592-3) acids are not detected in thi s [...] of COVID-19 by the ir healthcare provider. IKER (test code = This test has been IKER) authorized by FDA under an EUA for [...] revoked sooner. Fact Sheet for Healthcare Providers: https://www.Genemation/Documents/Xp ert%20Xpress%20SAR S%20CoV-2/Fact%20S heets/302-3802%20S ARS-COV-2%20HEALTH CARE%20PROVIDERS%2 0FACT%20SHEET.pdf Fact Sheet for Healthcare Patients: https://www.Genemation/Documents/Xp ert%20Xpress%20SAR S%20CoV-2/Fact%20S heets/302-3801%20S ARS-COV-2%20PATIEN T%20FACT%20SHEET.p df Lab Interpretation Normal (test code = 07234-7) [facility])2022-09-25 14:50:31 Test Item Value Reference Range Interpretation Comments SARS-COV2/RT-PCR Negative Negative The SARS-Co V-2 target (test code = nucleic acids a re not 3205040) detected in thi s specimen. Negative result [...] revoked sooner. Fact Sheet for Healthcare Providers: https://www.Zilliant m/Documents/Xpert%20Xpress%20SARS%20CoV-2/Fact%20Sheets/302-3802%33NBXF-TML-9%20 HEALTHCARE%20PROVIDERS%20FACT%20SHEET.pdf Fact Sheet for Healthcare Patients: https://www.NitroSell/Documents/Xpert%20Xp ress%20SARS%20CoV-2/Fact%20Sheets/302-3801%92ZNTU-ZWJ-3%20PATIENT%20FACT%20SHEET .pdfRAD, CHEST, 1 VIEW, NON [id number] 11:52:00Reason for exam:->CF patientShould this be performed at the bedside?->Yes [facility] 1975 Sex: MFINAL REPORT INDICATION: CF patient COMPARISON: None TECHNIQUE: Single frontal view of the chest. FINDINGS: Lungs and pleura: Clear lungs. No effusion.Heart and mediastinum: Normal heart size. Unremarkable mediastinal contours.Osseous structures: No acute abnormality.Other: None. IMPRESSION: No acute intrathoracic abnormality. Signed: Esperanza Duque MDRcristal Verified Date/Time: 09/24/2022 11:52:00 Reading Location: [address] Reading Room HEPATIC FUNCTION [id number] 05:00:50 Test Item Value Reference Range Interpretation [...] (test code = 39 U/L 6-55 347) Pattern And Chain Maker ID - MARCOBASIC METABOLIC [id number] 05:00:49 Test Item Value Reference Range Interpretation [...] not appl icable for dialysis patien ts Pattern And Chain Maker ID - [id number] 05:00:49 Test Item Value Reference Range Interpretation Comments MAGNESIUM (BEAKER) (test code = 1.6 mg/dL 1.6-2.6 627) Pattern And Chain Maker ID - [id number] 05:00:49 Test Item Value Reference Range Interpretation Comments PHOSPHORUS (BEAKER) (test code = 3.4 mg/dL 2.3-4.7 604) Pattern And Chain Maker ID - MARCOPROTHROMBIN TIME/[id number] 04:40:50 Test Item Value Reference Range Interpretation Comments PROTIME (BEAKER) 15.6 seconds 11.9-14.2 H (test code = 759) INR (BEAKER) (test 1.26 See_Comment [Automat ed message] code = 370) The system [employer] generated this result transmitted ref erence range: <=5.90. The reference range was not used to int erpret this result as normal/abnormal . RECOMMENDED COUMADIN/WARFARIN INR THERAPY RANGESSTANDARD DOSE: 2.0 - 3.0 Includes: PROPHYLAXIS for venous thrombosis, systemic embolization; TREATMENT for venous thrombosis and/or pulmonary embolus.HIGH RISK: Target INR is 2.5-3.5 for patients with mechanical heart valves.CBC W/PLT COUNT & AUTO [id number] 04:31:28 Test Item Value Reference Range Interpretation [...] PERCENT (BEAKER) (test code = 2801) BLOOD [id number] 19:01:42 Test Item Value Reference Range Interpretation Comments CULTURE (BEAKER) (test No growth in 5 days code = 1095) BLOOD [id number] 19:01:42 Test Item Value Reference Range Interpretation Comments CULTURE (BEAKER) (test No growth in 5 days code = 1095) HEPATIC FUNCTION [id number] 06:14:49 Test Item Value Reference Range Interpretation [...] (test code = 17 U/L 6-55 347) Pattern And Chain Maker ID - [id number] 06:14:48 Test Item Value Reference Range Interpretation Comments MAGNESIUM (BEAKER) (test code = 1.6 mg/dL 1.6-2.6 627) Pattern And Chain Maker ID - [id number] 06:14:48 Test Item Value Reference Range Interpretation Comments PHOSPHORUS (BEAKER) (test code = 3.2 mg/dL 2.3-4.7 604) Pattern And Chain Maker ID - BSBASIC METABOLIC [id number] 06:14:47 Test Item Value Reference Range Interpretation [...] not appl icable for dialysis patien ts Pattern And Chain Maker ID - BSCBC W/PLT COUNT & AUTO [id number] 05:41:16 Test Item Value Reference Range Interpretation [...] (BEAKER) (test code = 2801) VANCOMYCIN LEVEL, [id number] 08:51:33 Test Item Value Reference Range Interpretation Comments VANCOMYCIN TROUGH (BEAKER) (test 11.3 ug/mL 10.0-20.0 code = 522) Pattern And Chain Maker ID - [id number] 04:31:45 Test Item Value Reference Range Interpretation Comments MAGNESIUM (BEAKER) (test code = 1.6 mg/dL 1.6-2.6 627) Pattern And Chain Maker ID - NEIL [id number] 04:31:45 Test Item Value Reference Range Interpretation Comments PHOSPHORUS (BEAKER) (test code = 3.7 mg/dL 2.3-4.7 604) Pattern And Chain Maker ID - NEIL MHEPATIC FUNCTION [id number] 04:31:45 Test Item Value Reference Range Interpretation [...] (test code = 16 U/L 6-55 347) Pattern And Chain Maker ID - NEIL MBASIC METABOLIC [id number] 04:31:44 Test Item Value Reference Range Interpretation [...] not appl icable for dialysis patien ts Pattern And Chain Maker ID - NEIL MCBC W/PLT COUNT & AUTO [id number] 03:52:06 Test Item Value Reference Range Interpretation [...] (BEAKER) (test code = 2801) U/S, ABDOMINAL, [id number] 21:12:00Abdomen limited area? Add comment if clarification is needed.->GallbladderReason for exam:->fever, abdominal pain, increased T. bili with c/f cholangitis. US to r/o CBD dilatation 2/2 choledocholithiasisShould this be performed at the bedside?->Yes [facility] : 1975 Sex: MFINAL REPORT RIGHT UPPER [...] Date/Time: 09/09/2022 21:12:42 RAD, ABDOMEN/KUB, 1 VIEW [id number] 15:34:00Reason for exam:->f/u abdominal pain/colonic distension [facility] : 1975 Sex: [...] MDReport Verified Date/Time: 09/09/2022 15:34:07 Reading Location: [address] Reading Room Respiratory Panel [id number] 15:22:28 Test Item Value Reference Interpretation Comments Range Human Metapneumovirus Not detected Not detected, (test code = 05135-9) Equivocal Rhinovirus (test code Not detected Not detected, = 24839-8) Equivocal INFLUENZA A (NO SUBTYPE) (test code = 06846-7) Influenza A subtype H1 (test code = 88061-9) Influenza A Subtype H3 (test code = 97978-4) Influenza A Subtype Detected Not detected, A Droplet H1-2009 (test code = [place]. [address]-2) Oseltamivir is the drug of choice. Conside r stopping antibiotics. Influenza B (test Not detected Not detected, code = 76884-9) Equivocal Respiratory Syncytial Not detected Not detected, Virus (test code = Equivocal 53250-9) Parainfluenza Virus 1 Not detected Not detected, (test code = 36966-8) Equivocal Parainfluenza Virus 2 Not detected Not detected, (test code = 13637-2) Equivocal Parainfluenza virus 3 Not detected Not detected, (test code = 13252-1) Equivocal Parainfluenza Virus 4 Not detected Not detected, (test code = 95181-4) Equivocal Adenovirus (test code Not detected Not detected, = 25654-7) Equivocal Coronavirus 229E Not detected Not detected, (test code = 64771-2) Equivocal Coronavirus HKU1 Not detected Not detected, (test code = 64997-4) Equivocal Coronavirus NL63 Not detected Not detected, (test code = 97577-6) Equivocal Coronavirus OC43 Not detected Not detected, (test code = 61158-9) Equivocal Bordetella Pertussis Not detected Not detected, (test code = 10713-6) Equivocal Chlamydophila Not detected Not detected, Pneumoniae (test code Equivocal = 37636-3) Mycoplasma Pneumoniae Not detected Not detected, (test code = 16653-1) Equivocal Severe Acute Not detected Not detected, Usmpkfkfbgj-TgS-2 Equivocal (test code = 19893-2) Bordtella Not detected Not detected, Parapertussis (test Equivocal code = 73022-7) IKER (test code = IKER) Other viruses and bacteria not targeted by this PCR panel cannot be excluded; therefore clinical correlation and follow up of serology, culture results, and other molecular studies is required. The results are not intended to be used as the sole means for clinical diagnosis or patient management decisions. This sample was tested at the [facility] Diagnostics Laboratory using the food.deArray Respiratory Panel. It is FDA cleared and has been verified and approved by the [facility] for clinical use on nasopharyngeal swab specimens. The performance of the FilmArray RP has not been established in individuals who received influenza vaccine. Recent administration of a nasal influenza vaccine may cause false positive results for Influenza A and/orInfluenza B. Lab Interpretation Abnormal (test code = 28712-9) [facility] [id number] 15:22:28 Test Item Value Reference Interpretation Comments Range Human Metapneumovirus Not detected Not detected, (test code = 82441-4) Equivocal Rhinovirus (test code Not detected Not detected, = 76140-4) Equivocal INFLUENZA A (NO SUBTYPE) (test code = 06191-4) Influenza A subtype H1 (test code = 37031-8) Influenza A Subtype H3 (test code = 21887-4) Influenza A Subtype Detected Not detected, A Droplet H1-2009 (test code = [place]. 82607-2) Oseltamivir is the drug of choice. Conside r stopping antibiotics. Influenza B (test Not detected Not detected, code = 87666-2) Equivocal Respiratory Syncytial Not detected Not detected, Virus (test code = Equivocal 59765-1) Parainfluenza Virus 1 Not detected Not detected, (test code = 39979-8) Equivocal Parainfluenza Virus 2 Not detected Not detected, (test code = 40726-5) Equivocal Parainfluenza virus 3 Not detected Not detected, (test code = 74765-8) Equivocal Parainfluenza Virus 4 Not detected Not detected, (test code = 16284-5) Equivocal Adenovirus (test code Not detected Not detected, = 85670-9) Equivocal Coronavirus 229E Not detected Not detected, (test code = 91057-7) Equivocal Coronavirus HKU1 Not detected Not detected, (test code = 30358-2) Equivocal Coronavirus NL63 Not detected Not detected, (test code = 36504-0) Equivocal Coronavirus OC43 Not detected Not detected, (test code = 12942-8) Equivocal Bordetella Pertussis Not detected Not detected, (test code = 82039-2) Equivocal Chlamydophila Not detected Not detected, Pneumoniae (test code Equivocal = 02468-4) Mycoplasma Pneumoniae Not detected Not detected, (test code = 24167-8) Equivocal Severe Acute Not detected Not detected, Vrzypusvrqt-PrM-4 Equivocal (test code = 44975-5) Bordtella Not detected Not detected, Parapertussis (test Equivocal code = 43915-1) IKER (test code = IKER) Other viruses and bacteria not targeted by this PCR panel cannot be excluded; therefore clinical correlation and follow up of serology, culture results, and other molecular studies is required. The results are not intended to be used as the sole means for clinical diagnosis or patient management decisions. This sample was tested at the [facility] Molecular Diagnostics Laboratory using the Glisten Respiratory Panel. It is FDA cleared and has been verified and approved by the [facility] Molecular Diagnostics Laboratory for clinical use on nasopharyngeal swab specimens. The performance of the FilmArray RP has not been established in individuals who received influenza vaccine. Recent administration of a nasal influenza vaccine may cause false positive results for Influenza A and/orInfluenza B. Lab Interpretation Abnormal (test code = 98649-6) [facility] [id number] 15:22:28 Test Item Value Reference Interpretation Comments Range Human Metapneumovirus Not detected Not detected, (test code = 90100-0) Equivocal Rhinovirus (test code Not detected Not detected, = 53810-2) Equivocal INFLUENZA A (NO SUBTYPE) (test code = 08449-1) Influenza A subtype H1 (test code = 28698-4) Influenza A Subtype H3 (test code = 02026-8) Influenza A Subtype Detected Not detected, A Droplet H1-2009 (test code = [place]. 87086-7) Oseltamivir is the drug of choice. Conside r stopping antibiotics. Influenza B (test Not detected Not detected, code = 22878-7) Equivocal Respiratory Syncytial Not detected Not detected, Virus (test code = Equivocal 26549-0) Parainfluenza Virus 1 Not detected Not detected, (test code = 04766-0) Equivocal Parainfluenza Virus 2 Not detected Not detected, (test code = 03489-1) Equivocal Parainfluenza virus 3 Not detected Not detected, (test code = 80233-1) Equivocal Parainfluenza Virus 4 Not detected Not detected, (test code = 81088-8) Equivocal Adenovirus (test code Not detected Not detected, = 51363-2) Equivocal Coronavirus 229E Not detected Not detected, (test code = 36443-8) Equivocal Coronavirus HKU1 Not detected Not detected, (test code = 58596-8) Equivocal Coronavirus NL63 Not detected Not detected, (test code = 25572-2) Equivocal Coronavirus OC43 Not detected Not detected, (test code = 32741-0) Equivocal Bordetella Pertussis Not detected Not detected, (test code = 69375-9) Equivocal Chlamydophila Not detected Not detected, Pneumoniae (test code Equivocal = 14824-0) Mycoplasma Pneumoniae Not detected Not detected, (test code = 37691-3) Equivocal Severe Acute Not detected Not detected, Dfxdbhovsjq-KuZ-4 Equivocal (test code = 95318-0) Bordtella Not detected Not detected, Parapertussis (test Equivocal code = 46559-6) IKER (test code = IKER) Other viruses and bacteria not targeted by this PCR panel cannot be excluded; therefore clinical correlation and follow up of serology, culture results, and other molecular studies is required. The results are not intended to be used as the sole means for clinical diagnosis or patient management decisions. This sample was tested at the [facility] Molecular Diagnostics Laboratory using the food.deArray Respiratory Panel. It is FDA cleared and has been verified and approved by the [facility] Molecular Diagnostics Laboratory for clinical use on nasopharyngeal swab specimens. The performance of the FilmArray RP has not been established in individuals who received influenza vaccine. Recent administration of a nasal influenza vaccine may cause false positive results for Influenza A and/orInfluenza B. Lab Interpretation Abnormal (test code = 89545-1) [facility] [id number] 15:22:28 Test Item Value Reference Interpretation Comments Range Human Metapneumovirus Not detected Not detected, (test code = 93470-7) Equivocal Rhinovirus (test code Not detected Not detected, = 15366-7) Equivocal INFLUENZA A (NO SUBTYPE) (test code = 03226-2) Influenza A subtype H1 (test code = 91022-7) Influenza A Subtype H3 (test code = 25843-9) Influenza A Subtype Detected Not detected, A Droplet H1-2009 (test code = [place]iv[place]. [address]-9) Oseltamivir is the drug of choice. Conside r stopping antibiotics. Influenza B (test Not detected Not detected, code = 63678-2) Equivocal Respiratory Syncytial Not detected Not detected, Virus (test code = Equivocal 82630-7) Parainfluenza Virus 1 Not detected Not detected, (test code = 90667-0) Equivocal Parainfluenza Virus 2 Not detected Not detected, (test code = 13904-1) Equivocal Parainfluenza virus 3 Not detected Not detected, (test code = 06090-2) Equivocal Parainfluenza Virus 4 Not detected Not detected, (test code = 66970-7) Equivocal Adenovirus (test code Not detected Not detected, = 73664-6) Equivocal Coronavirus 229E Not detected Not detected, (test code = 28067-4) Equivocal Coronavirus HKU1 Not detected Not detected, (test code = 89047-8) Equivocal Coronavirus NL63 Not detected Not detected, (test code = 88080-3) Equivocal Coronavirus OC43 Not detected Not detected, (test code = 41488-6) Equivocal Bordetella Pertussis Not detected Not detected, (test code = 86514-3) Equivocal Chlamydophila Not detected Not detected, Pneumoniae (test code Equivocal = 90014-4) Mycoplasma Pneumoniae Not detected Not detected, (test code = 24418-0) Equivocal Severe Acute Not detected Not detected, Xlygktwlbsp-SrA-3 Equivocal (test code = 03191-1) Bordtella Not detected Not detected, Parapertussis (test Equivocal code = 70693-4) IKER (test code = IKER) Other viruses and bacteria not targeted by this PCR panel cannot be excluded; therefore clinical correlation and follow up of serology, culture results, and other molecular studies is required. The results are not intended to be used as the sole means for clinical diagnosis or patient management decisions. This sample was tested at the [facility] Molecular Diagnostics Laboratory using the Glisten Respiratory Panel. It is FDA cleared and has been verified and approved by the [facility] Molecular Diagnostics Laboratory for clinical use on nasopharyngeal swab specimens. The performance of the FilmArray RP has not been established in individuals who received influenza vaccine. Recent administration of a nasal influenza vaccine may cause false positive results for Influenza A and/orInfluenza B. Lab Interpretation Abnormal (test code = 70601-7) [facility] [id number] 15:22:28 Test Item Value Reference Interpretation Comments Range Human Metapneumovirus Not detected Not detected, (test code = 12838-8) Equivocal Rhinovirus (test code Not detected Not detected, = 70815-0) Equivocal INFLUENZA A (NO SUBTYPE) (test code = 13470-6) Influenza A subtype H1 (test code = 13963-8) Influenza A Subtype H3 (test code = 76840-0) Influenza A Subtype Detected Not detected, A Droplet H1-2009 (test code = [place] [address]-2) Oseltamivir is the drug of choice. Conside r stopping antibiotics. Influenza B (test Not detected Not detected, code = 18071-2) Equivocal Respiratory Syncytial Not detected Not detected, Virus (test code = Equivocal 22046-8) Parainfluenza Virus 1 Not detected Not detected, (test code = 09306-0) Equivocal Parainfluenza Virus 2 Not detected Not detected, (test code = 17901-5) Equivocal Parainfluenza virus 3 Not detected Not detected, (test code = 57665-6) Equivocal Parainfluenza Virus 4 Not detected Not detected, (test code = 63415-6) Equivocal Adenovirus (test code Not detected Not detected, = 47156-6) Equivocal Coronavirus 229E Not detected Not detected, (test code = 81471-4) Equivocal Coronavirus HKU1 Not detected Not detected, (test code = 96641-6) Equivocal Coronavirus NL63 Not detected Not detected, (test code = 51392-9) Equivocal Coronavirus OC43 Not detected Not detected, (test code = 67541-5) Equivocal Bordetella Pertussis Not detected Not detected, (test code = 57672-3) Equivocal Chlamydophila Not detected Not detected, Pneumoniae (test code Equivocal = 80866-2) Mycoplasma Pneumoniae Not detected Not detected, (test code = 65869-9) Equivocal Severe Acute Not detected Not detected, Fcsyeicthqc-ZwH-0 Equivocal (test code = 74053-8) Bordtella Not detected Not detected, Parapertussis (test Equivocal code = 43955-3) IKER (test code = IKER) Other viruses and bacteria not targeted by this PCR panel cannot be excluded; therefore clinical correlation and follow up of serology, culture results, and other molecular studies is required. The results are not intended to be used as the sole means for clinical diagnosis or patient management decisions. This sample was tested at the [facility] Diagnostics [facility] using the food.deArray Respiratory Panel. It is FDA cleared and has been verified and approved by the [facility] for clinical use on nasopharyngeal swab specimens. The performance of the FilmArray RP has not been established in individuals who received influenza vaccine. Recent administration of a nasal influenza vaccine may cause false positive results for Influenza A and/orInfluenza B. Lab Interpretation Abnormal (test code = 29449-6) [facility] [id number] 15:22:28 Test Item Value Reference Interpretation Comments Range Human Metapneumovirus Not detected Not detected, (test code = 30430-5) Equivocal Rhinovirus (test code Not detected Not detected, = 39952-5) Equivocal INFLUENZA A (NO SUBTYPE) (test code = 77079-8) Influenza A subtype H1 (test code = 18485-7) Influenza A Subtype H3 (test code = 85020-3) Influenza A Subtype Detected Not detected, A Droplet H1-2009 (test code = [place]. 02099-2) Oseltamivir is the drug of choice. Conside r stopping antibiotics. Influenza B (test Not detected Not detected, code = 95344-9) Equivocal Respiratory Syncytial Not detected Not detected, Virus (test code = Equivocal 37636-3) Parainfluenza Virus 1 Not detected Not detected, (test code = 56238-2) Equivocal Parainfluenza Virus 2 Not detected Not detected, (test code = 53397-7) Equivocal Parainfluenza virus 3 Not detected Not detected, (test code = 45198-7) Equivocal Parainfluenza Virus 4 Not detected Not detected, (test code = 61326-7) Equivocal Adenovirus (test code Not detected Not detected, = 42735-5) Equivocal Coronavirus 229E Not detected Not detected, (test code = 95591-4) Equivocal Coronavirus HKU1 Not detected Not detected, (test code = 68500-4) Equivocal Coronavirus NL63 Not detected Not detected, (test code = 12522-8) Equivocal Coronavirus OC43 Not detected Not detected, (test code = 26248-5) Equivocal Bordetella Pertussis Not detected Not detected, (test code = 10281-0) Equivocal Chlamydophila Not detected Not detected, Pneumoniae (test code Equivocal = 67561-1) Mycoplasma Pneumoniae Not detected Not detected, (test code = 66184-5) Equivocal Severe Acute Not detected Not detected, Axegkrasyog-BfI-7 Equivocal (test code = 96693-6) Bordtella Not detected Not detected, Parapertussis (test Equivocal code = 58486-8) IKER (test code = IKER) Other viruses and bacteria not targeted by this PCR panel cannot be excluded; therefore clinical correlation and follow up of serology, culture results, and other molecular studies is required. The results are not intended to be used as the sole means for clinical diagnosis or patient management decisions. This sample was tested at the [facility] Molecular Diagnostics Laboratory using the food.deArray Respiratory Panel. It is FDA cleared and has been verified and approved by the [facility] Diagnostics [facility] for clinical use on nasopharyngeal swab specimens. The performance of the FilmArray RP has not been established in individuals who received influenza vaccine. Recent administration of a nasal influenza vaccine may cause false positive results for Influenza A and/orInfluenza B. Lab Interpretation Abnormal (test code = 41122-9) [facility] [id number] 15:22:28 Test Item Value Reference Interpretation Comments Range Human Metapneumovirus Not detected Not detected, (test code = 39160-3) Equivocal Rhinovirus (test code Not detected Not detected, = 47305-2) Equivocal INFLUENZA A (NO SUBTYPE) (test code = 73380-9) Influenza A subtype H1 (test code = 56194-6) Influenza A Subtype H3 (test code = 10904-0) Influenza A Subtype Detected Not detected, A Droplet H1-2009 (test code = Equ[place]. 65764-9) Oseltamivir is the drug of choice. Conside r stopping antibiotics. Influenza B (test Not detected Not detected, code = 25356-7) Equivocal Respiratory Syncytial Not detected Not detected, Virus (test code = Equivocal 76792-7) Parainfluenza Virus 1 Not detected Not detected, (test code = 00318-3) Equivocal Parainfluenza Virus 2 Not detected Not detected, (test code = 62108-9) Equivocal Parainfluenza virus 3 Not detected Not detected, (test code = 33346-5) Equivocal Parainfluenza Virus 4 Not detected Not detected, (test code = 47995-6) Equivocal Adenovirus (test code Not detected Not detected, = 91810-7) Equivocal Coronavirus 229E Not detected Not detected, (test code = 99575-9) Equivocal Coronavirus HKU1 Not detected Not detected, (test code = 02135-1) Equivocal Coronavirus NL63 Not detected Not detected, (test code = 60598-1) Equivocal Coronavirus OC43 Not detected Not detected, (test code = 89356-4) Equivocal Bordetella Pertussis Not detected Not detected, (test code = 88214-1) Equivocal Chlamydophila Not detected Not detected, Pneumoniae (test code Equivocal = 21167-5) Mycoplasma Pneumoniae Not detected Not detected, (test code = 15700-5) Equivocal Severe Acute Not detected Not detected, Epzrngdyspp-TnZ-2 Equivocal (test code = 16814-0) Bordtella Not detected Not detected, Parapertussis (test Equivocal code = 04010-2) IKER (test code = IKER) Other viruses and bacteria not targeted by this PCR panel cannot be excluded; therefore clinical correlation and follow up of serology, culture results, and other molecular studies is required. The results are not intended to be used as the sole means for clinical diagnosis or patient management decisions. This sample was tested at the [facility] Diagnostics Laboratory using the food.deArray Respiratory Panel. It is FDA cleared and has been verified and approved by the [facility] Diagnostics [facility] for clinical use on nasopharyngeal swab specimens. The performance of the FilmArray RP has not been established in individuals who received influenza vaccine. Recent administration of a nasal influenza vaccine may cause false positive results for Influenza A and/orInfluenza B. Lab Interpretation Abnormal (test code = 94335-3) [facility] [id number] 15:22:28 Test Item Value Reference Interpretation Comments Range Human Metapneumovirus Not detected Not detected, (test code = 45929-4) Equivocal Rhinovirus (test code Not detected Not detected, = 06194-5) Equivocal INFLUENZA A (NO SUBTYPE) (test code = 20830-2) Influenza A subtype H1 (test code = 31185-4) Influenza A Subtype H3 (test code = 47450-9) Influenza A Subtype Detected Not detected, A Droplet H1-2009 (test code = [place]. 17380-0) Oseltamivir is the drug of choice. Conside r stopping antibiotics. Influenza B (test Not detected Not detected, code = 27326-0) Equivocal Respiratory Syncytial Not detected Not detected, Virus (test code = Equivocal 22318-4) Parainfluenza Virus 1 Not detected Not detected, (test code = 11687-5) Equivocal Parainfluenza Virus 2 Not detected Not detected, (test code = 44668-6) Equivocal Parainfluenza virus 3 Not detected Not detected, (test code = 12733-5) Equivocal Parainfluenza Virus 4 Not detected Not detected, (test code = 22179-4) Equivocal Adenovirus (test code Not detected Not detected, = 82069-6) Equivocal Coronavirus 229E Not detected Not detected, (test code = 02520-5) Equivocal Coronavirus HKU1 Not detected Not detected, (test code = 08159-7) Equivocal Coronavirus NL63 Not detected Not detected, (test code = 67651-7) Equivocal Coronavirus OC43 Not detected Not detected, (test code = 24010-1) Equivocal Bordetella Pertussis Not detected Not detected, (test code = 89153-9) Equivocal Chlamydophila Not detected Not detected, Pneumoniae (test code Equivocal = 68494-1) Mycoplasma Pneumoniae Not detected Not detected, (test code = 04237-1) Equivocal Severe Acute Not detected Not detected, Qqelmuhpkik-LsB-6 Equivocal (test code = 33653-4) Bordtella Not detected Not detected, Parapertussis (test Equivocal code = 34005-8) IKER (test code = IKER) Other viruses and bacteria not targeted by this PCR panel cannot be excluded; therefore clinical correlation and follow up of serology, culture results, and other molecular studies is required. The results are not intended to be used as the sole means for clinical diagnosis or patient management decisions. This sample was tested at the [facility] Diagnostics [facility] using the Glisten Respiratory Panel. It is FDA cleared and has been verified and approved by the [facility] Diagnostics [facility] for clinical use on nasopharyngeal swab specimens. The performance of the FilmArray RP has not been established in individuals who received influenza vaccine. Recent administration of a nasal influenza vaccine may cause false positive results for Influenza A and/orInfluenza B. Lab Interpretation Abnormal (test code = 84359-8) [facility] [id number] 15:22:28 Test Item Value Reference Interpretation Comments Range Human Metapneumovirus Not detected Not detected, (test code = 71610-6) Equivocal Rhinovirus (test code Not detected Not detected, = 69308-4) Equivocal INFLUENZA A (NO SUBTYPE) (test code = 47859-3) Influenza A subtype H1 (test code = 64013-3) Influenza A Subtype H3 (test code = 22370-6) Influenza A Subtype Detected Not detected, A Droplet H1-2009 (test code = Equ[place]. 27373-4) Oseltamivir is the drug of choice. Conside r stopping antibiotics. Influenza B (test Not detected Not detected, code = 77239-7) Equivocal Respiratory Syncytial Not detected Not detected, Virus (test code = Equivocal 95628-3) Parainfluenza Virus 1 Not detected Not detected, (test code = 76496-8) Equivocal Parainfluenza Virus 2 Not detected Not detected, (test code = 44889-4) Equivocal Parainfluenza virus 3 Not detected Not detected, (test code = 61498-5) Equivocal Parainfluenza Virus 4 Not detected Not detected, (test code = 84583-7) Equivocal Adenovirus (test code Not detected Not detected, = 54083-3) Equivocal Coronavirus 229E Not detected Not detected, (test code = 07873-8) Equivocal Coronavirus HKU1 Not detected Not detected, (test code = 87675-6) Equivocal Coronavirus NL63 Not detected Not detected, (test code = 97042-8) Equivocal Coronavirus OC43 Not detected Not detected, (test code = 08227-3) Equivocal Bordetella Pertussis Not detected Not detected, (test code = 05371-6) Equivocal Chlamydophila Not detected Not detected, Pneumoniae (test code Equivocal = 42762-2) Mycoplasma Pneumoniae Not detected Not detected, (test code = 07676-9) Equivocal Severe Acute Not detected Not detected, Jsqjeezcoqi-IzQ-5 Equivocal (test code = 91780-0) Bordtella Not detected Not detected, Parapertussis (test Equivocal code = 10361-5) IKER (test code = IKER) Other viruses and bacteria not targeted by this PCR panel cannot be excluded; therefore clinical correlation and follow up of serology, culture results, and other molecular studies is required. The results are not intended to be used as the sole means for clinical diagnosis or patient management decisions. This sample was tested at the [facility] Diagnostics [facility] using the food.deArray Respiratory Panel. It is FDA cleared and has been verified and approved by the [facility]ostics [facility] for clinical use on nasopharyngeal swab specimens. The performance of the FilmArray RP has not been established in individuals who received influenza vaccine. Recent administration of a nasal influenza vaccine may cause false positive results for Influenza A and/orInfluenza B. Lab Interpretation Abnormal (test code = 06584-2) [facility] [id number] 15:22:28 Test Item Value Reference Interpretation Comments Range Human Metapneumovirus Not detected Not detected, (test code = 99178-5) Equivocal Rhinovirus (test code Not detected Not detected, = 45883-6) Equivocal INFLUENZA A (NO SUBTYPE) (test code = 62633-5) Influenza A subtype H1 (test code = 35842-4) Influenza A Subtype H3 (test code = 45953-2) Influenza A Subtype Detected Not detected, A Droplet H1-2009 (test code = Equiv[place]. 69471-2) Oseltamivir is the drug of choice. Conside r stopping antibiotics. Influenza B (test Not detected Not detected, code = 23083-4) Equivocal Respiratory Syncytial Not detected Not detected, Virus (test code = Equivocal 91876-4) Parainfluenza Virus 1 Not detected Not detected, (test code = 72183-6) Equivocal Parainfluenza Virus 2 Not detected Not detected, (test code = 66597-5) Equivocal Parainfluenza virus 3 Not detected Not detected, (test code = 75560-5) Equivocal Parainfluenza Virus 4 Not detected Not detected, (test code = 22963-0) Equivocal Adenovirus (test code Not detected Not detected, = 26235-6) Equivocal Coronavirus 229E Not detected Not detected, (test code = 46242-8) Equivocal Coronavirus HKU1 Not detected Not detected, (test code = 98457-4) Equivocal Coronavirus NL63 Not detected Not detected, (test code = 19921-8) Equivocal Coronavirus OC43 Not detected Not detected, (test code = 04870-7) Equivocal Bordetella Pertussis Not detected Not detected, (test code = 24803-1) Equivocal Chlamydophila Not detected Not detected, Pneumoniae (test code Equivocal = 70898-7) Mycoplasma Pneumoniae Not detected Not detected, (test code = 89233-0) Equivocal Severe Acute Not detected Not detected, Dlgysimqvhl-TgA-0 Equivocal (test code = 77728-7) Bordtella Not detected Not detected, Parapertussis (test Equivocal code = 45850-3) IKER (test code = IKER) Other viruses and bacteria not targeted by this PCR panel cannot be excluded; therefore clinical correlation and follow up of serology, culture results, and other molecular studies is required. The results are not intended to be used as the sole means for clinical diagnosis or patient management decisions. This sample was tested at the [facility] Diagnostics [facility] using the food.deArray Respiratory Panel. It is FDA cleared and has been verified and approved by the [facility]ostics [facility] for clinical use on nasopharyngeal swab specimens. The performance of the FilmArray RP has not been established in individuals who received influenza vaccine. Recent administration of a nasal influenza vaccine may cause false positive results for Influenza A and/orInfluenza B. Lab Interpretation Abnormal (test code = 63346-0) [facility] [id number] 15:22:28 Test Item Value Reference Interpretation Comments Range Human Metapneumovirus Not detected Not detected, (test code = 71711-6) Equivocal Rhinovirus (test code Not detected Not detected, = 96252-6) Equivocal INFLUENZA A (NO SUBTYPE) (test code = 18746-4) Influenza A subtype H1 (test code = 89361-7) Influenza A Subtype H3 (test code = 73961-1) Influenza A Subtype Detected Not detected, A Droplet H1-2009 (test code = Equ[place]. 92910-9) Oseltamivir is the drug of choice. Conside r stopping antibiotics. Influenza B (test Not detected Not detected, code = 01926-5) Equivocal Respiratory Syncytial Not detected Not detected, Virus (test code = Equivocal 65620-8) Parainfluenza Virus 1 Not detected Not detected, (test code = 52170-0) Equivocal Parainfluenza Virus 2 Not detected Not detected, (test code = 78388-8) Equivocal Parainfluenza virus 3 Not detected Not detected, (test code = 12956-4) Equivocal Parainfluenza Virus 4 Not detected Not detected, (test code = 95319-7) Equivocal Adenovirus (test code Not detected Not detected, = 90881-7) Equivocal Coronavirus 229E Not detected Not detected, (test code = 07477-5) Equivocal Coronavirus HKU1 Not detected Not detected, (test code = 23606-6) Equivocal Coronavirus NL63 Not detected Not detected, (test code = 18270-7) Equivocal Coronavirus OC43 Not detected Not detected, (test code = 46338-9) Equivocal Bordetella Pertussis Not detected Not detected, (test code = 95710-0) Equivocal Chlamydophila Not detected Not detected, Pneumoniae (test code Equivocal = 69532-5) Mycoplasma Pneumoniae Not detected Not detected, (test code = 94992-3) Equivocal Severe Acute Not detected Not detected, Pdeoasuxsme-NiO-5 Equivocal (test code = 53428-8) Bordtella Not detected Not detected, Parapertussis (test Equivocal code = 64570-0) IKER (test code = IKER) Other viruses and bacteria not targeted by this PCR panel cannot be excluded; therefore clinical correlation and follow up of serology, culture results, and other molecular studies is required. The results are not intended to be used as the sole means for clinical diagnosis or patient management decisions. This sample was tested at the [facility] Diagnostics [facility] using the food.deArray Respiratory Panel. It is FDA cleared and has been verified and approved by the [facility] Diagnostics [facility] for clinical use on nasopharyngeal swab specimens. The performance of the FilmArray RP has not been established in individuals who received influenza vaccine. Recent administration of a nasal influenza vaccine may cause false positive results for Influenza A and/orInfluenza B. Lab Interpretation Abnormal (test code = 24724-4) [facility] [id number] 15:22:28 Test Item Value Reference Interpretation Comments Range Human Metapneumovirus Not detected Not detected, (test code = 05800-1) Equivocal Rhinovirus (test code Not detected Not detected, = 28004-5) Equivocal INFLUENZA A (NO SUBTYPE) (test code = 75990-7) Influenza A subtype H1 (test code = 50773-1) Influenza A Subtype H3 (test code = 39012-7) Influenza A Subtype Detected Not detected, A Droplet H1-2009 (test code = Equiv[place]. 41293-7) Oseltamivir is the drug of choice. Conside r stopping antibiotics. Influenza B (test Not detected Not detected, code = 32639-9) Equivocal Respiratory Syncytial Not detected Not detected, Virus (test code = Equivocal 04117-9) Parainfluenza Virus 1 Not detected Not detected, (test code = 35236-0) Equivocal Parainfluenza Virus 2 Not detected Not detected, (test code = 88220-5) Equivocal Parainfluenza virus 3 Not detected Not detected, (test code = 97071-1) Equivocal Parainfluenza Virus 4 Not detected Not detected, (test code = 38014-3) Equivocal Adenovirus (test code Not detected Not detected, = 97960-9) Equivocal Coronavirus 229E Not detected Not detected, (test code = 82025-8) Equivocal Coronavirus HKU1 Not detected Not detected, (test code = 35706-0) Equivocal Coronavirus NL63 Not detected Not detected, (test code = 83580-6) Equivocal Coronavirus OC43 Not detected Not detected, (test code = 63275-3) Equivocal Bordetella Pertussis Not detected Not detected, (test code = 17003-4) Equivocal Chlamydophila Not detected Not detected, Pneumoniae (test code Equivocal = 86741-9) Mycoplasma Pneumoniae Not detected Not detected, (test code = 93004-2) Equivocal Severe Acute Not detected Not detected, Kingfufzfib-HzO-4 Equivocal (test code = 65814-5) Bordtella Not detected Not detected, Parapertussis (test Equivocal code = 77478-1) IKER (test code = IKER) Other viruses and bacteria not targeted by this PCR panel cannot be excluded; therefore clinical correlation and follow up of serology, culture results, and other molecular studies is required. The results are not intended to be used as the sole means for clinical diagnosis or patient management decisions. This sample was tested at the [facility] using the [employer] Respiratory Panel. It is FDA cleared and has been verified and approved by the [facility] for clinical use on nasopharyngeal swab specimens. The performance of the FilmArray RP has not been established in individuals who received influenza vaccine. Recent administration of a nasal influenza vaccine may cause false positive results for Influenza A and/orInfluenza B. Lab Interpretation Abnormal (test code = 41719-8) [facility] [id number] 15:22:28 Test Item Value Reference Interpretation Comments Range Human Metapneumovirus Not detected Not detected, (test code = 67468-9) Equivocal Rhinovirus (test code Not detected Not detected, = 36949-6) Equivocal INFLUENZA A (NO SUBTYPE) (test code = 96942-2) Influenza A subtype H1 (test code = 37159-7) Influenza A Subtype H3 (test code = 10792-4) Influenza A Subtype Detected Not detected, A Droplet H1-2008 (test code = Equiv[place]. 69332-4) Oseltamivir is the drug of choice. Conside r stopping antibiotics. Influenza B (test Not detected Not detected, code = 06500-9) Equivocal Respiratory Syncytial Not detected Not detected, Virus (test code = Equivocal 44524-2) Parainfluenza Virus 1 Not detected Not detected, (test code = 29757-2) Equivocal Parainfluenza Virus 2 Not detected Not detected, (test code = 16809-5) Equivocal Parainfluenza virus 3 Not detected Not detected, (test code = 30908-7) Equivocal Parainfluenza Virus 4 Not detected Not detected, (test code = 21978-3) Equivocal Adenovirus (test code Not detected Not detected, = 05014-8) Equivocal Coronavirus 229E Not detected Not detected, (test code = 26178-7) Equivocal Coronavirus HKU1 Not detected Not detected, (test code = 57783-9) Equivocal Coronavirus NL63 Not detected Not detected, (test code = 89471-1) Equivocal Coronavirus OC43 Not detected Not detected, (test code = 84549-0) Equivocal Bordetella Pertussis Not detected Not detected, (test code = 40297-7) Equivocal Chlamydophila Not detected Not detected, Pneumoniae (test code Equivocal = 99711-5) Mycoplasma Pneumoniae Not detected Not detected, (test code = 83822-5) Equivocal Severe Acute Not detected Not detected, Ifhyvtbcdyz-TlX-1 Equivocal (test code = 67727-2) Bordtella Not detected Not detected, Parapertussis (test Equivocal code = 49512-8) IKER (test code = IKER) Other viruses and bacteria not targeted by this PCR panel cannot be excluded; therefore clinical correlation and follow up of serology, culture results, and other molecular studies is required. The results are not intended to be used as the sole means for clinical diagnosis or patient management decisions. This sample was tested at the [facility] Molecular Diagnostics Laboratory using the food.deArray Respiratory Panel. It is FDA cleared and has been verified and approved by the [facility] Molecular Diagnostics Laboratory for clinical use on nasopharyngeal swab specimens. The performance of the FilmArray RP has not been established in individuals who received influenza vaccine. Recent administration of a nasal influenza vaccine may cause false positive results for Influenza A and/orInfluenza B. Lab Interpretation Abnormal (test code = 11229-7) [facility] [id number] 15:22:28 Test Item Value Reference Interpretation Comments Range Human Metapneumovirus Not detected Not detected, (test code = 45164-2) Equivocal Rhinovirus (test code Not detected Not detected, = 92445-5) Equivocal INFLUENZA A (NO SUBTYPE) (test code = 46275-8) Influenza A subtype H1 (test code = 60649-5) Influenza A Subtype H3 (test code = 23613-8) Influenza A Subtype Detected Not detected, A Droplet H1-2009 (test code = [place]. [address]-2) Oseltamivir is the drug of choice. Conside r stopping antibiotics. Influenza B (test Not detected Not detected, code = 61312-3) Equivocal Respiratory Syncytial Not detected Not detected, Virus (test code = Equivocal 36976-0) Parainfluenza Virus 1 Not detected Not detected, (test code = 75794-9) Equivocal Parainfluenza Virus 2 Not detected Not detected, (test code = 70819-0) Equivocal Parainfluenza virus 3 Not detected Not detected, (test code = 25773-3) Equivocal Parainfluenza Virus 4 Not detected Not detected, (test code = 82355-8) Equivocal Adenovirus (test code Not detected Not detected, = 04389-6) Equivocal Coronavirus 229E Not detected Not detected, (test code = 42941-6) Equivocal Coronavirus HKU1 Not detected Not detected, (test code = 81996-2) Equivocal Coronavirus NL63 Not detected Not detected, (test code = 41807-7) Equivocal Coronavirus OC43 Not detected Not detected, (test code = 75727-2) Equivocal Bordetella Pertussis Not detected Not detected, (test code = 05528-4) Equivocal Chlamydophila Not detected Not detected, Pneumoniae (test code Equivocal = 99467-3) Mycoplasma Pneumoniae Not detected Not detected, (test code = 18464-3) Equivocal Severe Acute Not detected Not detected, Namqetbubrf-FrZ-5 Equivocal (test code = 49334-4) Bordtella Not detected Not detected, Parapertussis (test Equivocal code = 84306-8) IKER (test code = IKER) Other viruses and bacteria not targeted by this PCR panel cannot be excluded; therefore clinical correlation and follow up of serology, culture results, and other molecular studies is required. The results are not intended to be used as the sole means for clinical diagnosis or patient management decisions. This sample was tested at the [facility] Molecular Diagnostics Laboratory using the food.deArray Respiratory Panel. It is FDA cleared and has been verified and approved by the [facility] Molecular Diagnostics Laboratory for clinical use on nasopharyngeal swab specimens. The performance of the FilmArray RP has not been established in individuals who received influenza vaccine. Recent administration of a nasal influenza vaccine may cause false positive results for Influenza A and/orInfluenza B. Lab Interpretation Abnormal (test code = 13229-6) [facility] [id number] 15:22:28 Test Item Value Reference Interpretation Comments Range Human Metapneumovirus Not detected Not detected, (test code = 90066-1) Equivocal Rhinovirus (test code Not detected Not detected, = 44989-8) Equivocal INFLUENZA A (NO SUBTYPE) (test code = 73073-2) Influenza A subtype H1 (test code = 56600-9) Influenza A Subtype H3 (test code = 86782-7) Influenza A Subtype Detected Not detected, A Droplet H1-2009 (test code = [place]. 36467-3) Oseltamivir is the drug of choice. Conside r stopping antibiotics. Influenza B (test Not detected Not detected, code = 31016-2) Equivocal Respiratory Syncytial Not detected Not detected, Virus (test code = Equivocal 69429-1) Parainfluenza Virus 1 Not detected Not detected, (test code = 41226-3) Equivocal Parainfluenza Virus 2 Not detected Not detected, (test code = 18464-5) Equivocal Parainfluenza virus 3 Not detected Not detected, (test code = 46814-2) Equivocal Parainfluenza Virus 4 Not detected Not detected, (test code = 10095-1) Equivocal Adenovirus (test code Not detected Not detected, = 85849-6) Equivocal Coronavirus 229E Not detected Not detected, (test code = 97898-2) Equivocal Coronavirus HKU1 Not detected Not detected, (test code = 32395-7) Equivocal Coronavirus NL63 Not detected Not detected, (test code = 03011-5) Equivocal Coronavirus OC43 Not detected Not detected, (test code = 09749-3) Equivocal Bordetella Pertussis Not detected Not detected, (test code = 22363-0) Equivocal Chlamydophila Not detected Not detected, Pneumoniae (test code Equivocal = 00718-2) Mycoplasma Pneumoniae Not detected Not detected, (test code = 60188-9) Equivocal Severe Acute Not detected Not detected, Idncihbtmls-TxP-3 Equivocal (test code = 44025-7) Bordtella Not detected Not detected, Parapertussis (test Equivocal code = 69062-1) IKER (test code = IKER) Other viruses and bacteria not targeted by this PCR panel cannot be excluded; therefore clinical correlation and follow up of serology, culture results, and other molecular studies is required. The results are not intended to be used as the sole means for clinical diagnosis or patient management decisions. This sample was tested at the [facility] Molecular Diagnostics Laboratory using the food.deArray Respiratory Panel. It is FDA cleared and has been verified and approved by the [facility] Molecular Diagnostics Laboratory for clinical use on nasopharyngeal swab specimens. The performance of the FilmArray RP has not been established in individuals who received influenza vaccine. Recent administration of a nasal influenza vaccine may cause false positive results for Influenza A and/orInfluenza B. Lab Interpretation Abnormal (test code = 42265-4) [facility] [id number] 15:22:28 Test Item Value Reference Range Interpretation [...] ACUTE Not detected Not detected, RESPIRATORY Equivocal [id number]-[id number] (test code = 8312236) BORDETELLA Not detected Not detected, PARAPERTUSSIS (BKR) Equivocal (test code = 2266082) Other viruses and bacteria not targeted by this PCR panel cannot be excluded; therefore clinical correlation and follow up of serology, culture results, and other molecular studies is required. The results are not intended to be used as the sole means for clinical diagnosis or patient management decisions. This sample was tested at the [facility] Molecular Diagnostics Laboratory using the vushaper FilmArray Respiratory Panel. It is FDA cleared and has been verified and approved by the [facility] Molecular Diagnostics Laboratory for clinical use on nasopharyngeal swab specimens.The performance of the FilmArrayRP has not been established in individuals who received influenza vaccine. Recent administration of a nasal influenza vaccine may cause false positive results for Influenza A and/orInfluenza B.BILIRUBIN, [id number] 14:19:13 Test Item Value Reference Range Interpretation Comments BILIRUBIN DIRECT (BEAKER) (test 0.5 mg/dL 0.1-0.5 code = 706) Pattern And Chain Maker ID - LIBBY BHEPATIC FUNCTION [id number] 11:30:00 Test Item Value Reference Range Interpretation [...] (test code = 15 U/L 6-55 347) Pattern And Chain Maker ID - LIBBY BBASIC METABOLIC [id number] 11:29:59 Test Item Value Reference Range Interpretation [...] (test code = 697) EGFR (BEAKER) 69 Interpretati on of eGFR (test code = [...] not appl icable for dialysis patien ts Pattern And Chain Maker ID - LIBBY [id number] 11:29:59 Test Item Value Reference Range Interpretation Comments MAGNESIUM (BEAKER) (test code = 1.6 mg/dL 1.6-2.6 627) Pattern And Chain Maker ID - LIBBY [id number] 11:29:59 Test Item Value Reference Range Interpretation Comments PHOSPHORUS (BEAKER) (test code = 3.2 mg/dL 2.3-4.7 604) Pattern And Chain Maker ID - LIBBY BCBC W/PLT COUNT & AUTO [id number] 10:23:43 Test Item Value Reference Range Interpretation [...] PERCENT (BEAKER) (test code = 2801) Urine [id number] 09:37:23 Test Item Value Reference Range Interpretation Comments Result (test code = <10,000 col/mL skin 6463-4) [facility] [id number] 09:37:23 Test Item Value Reference Range Interpretation Comments Result (test code = <10,000 col/mL skin 6463-4) [facility] [id number] 09:37:23 Test Item Value Reference Range Interpretation Comments Result (test code = <10,000 col/mL skin 6463-4) [facility] [id number] 09:37:23 Test Item Value Reference Range Interpretation Comments Result (test code = <10,000 col/mL skin 6463-4) [facility] [id number] 09:37:23 Test Item Value Reference Range Interpretation Comments Result (test code = <10,000 col/mL skin 6463-4) [facility] [id number] 09:37:23 Test Item Value Reference Range Interpretation Comments Result (test code = <10,000 col/mL skin 6463-4) [facility] [id number] 09:37:23 Test Item Value Reference Range Interpretation Comments Result (test code = <10,000 col/mL skin 6463-4) [facility] [id number] 09:37:23 Test Item Value Reference Range Interpretation Comments Result (test code = <10,000 col/mL skin 6463-4) [facility] [id number] 09:37:23 Test Item Value Reference Range Interpretation Comments Result (test code = <10,000 col/mL skin 6463-4) [facility] [id number] 09:37:23 Test Item Value Reference Range Interpretation Comments Result (test code = <10,000 col/mL skin 6463-4) [facility] [id number] 09:37:23 Test Item Value Reference Range Interpretation Comments Result (test code = <10,000 col/mL skin 6463-4) [facility] [id number] 09:37:23 Test Item Value Reference Range Interpretation Comments Result (test code = <10,000 col/mL skin 6463-4) [facility] [id number] 09:37:23 Test Item Value Reference Range Interpretation Comments Result (test code = <10,000 col/mL skin 6463-4) [facility] [id number] 09:37:23 Test Item Value Reference Range Interpretation Comments Result (test code = <10,000 col/mL skin 6463-4) [facility] [id number] 09:37:23 Test Item Value Reference Range Interpretation Comments Result (test code = <10,000 col/mL skin 6463-4) [facility] NON [id number] 03:15:00Reason for exam:->feverShould this be performed at the bedside?->Yes [facility] 1975 Sex: MFINAL REPORT PORTABLE AP CHEST ORDERED AT 09/08/2022 6:54 PM HISTORY: Fever. COMPARISON: Chest radiograph 11/13/2021 IMPRESSION: Heart size is normal. There is no consolidation, effusion or pneumothorax. No evidence of acute osseous abnormality. No evidence of pulmonary edema. Signed: [facility] Verified Date/Time: 09/09/2022 03:15:00 Strep pneumoniae [id number] 20:38:59 Test Item Value Reference Range Interpretation Comments Strep pneumoniae Presumptive negative Presumptive Antigen (test code = [place] [address]-7) pneumonia - see pneumococcal comment pneumonia - see comment, Presumptive negative for pneumococcal meningitis - see comment IKER (test code = IKER) Presumptive negative for pneumococcal pneumonia, suggesting no current or recent pneumococcal infection. Infection due to S. pneumoniae cannot be ruled out since the antigen present in the sample may be below the detection limit of the test. Lab Interpretation Normal (test code = 48470-4) [facility] [id number] 20:38:59 Test Item Value Reference Range Interpretation Comments Strep pneumoniae Presumptive negative Presumptive Antigen (test code = [place] for [address]-2) pneumonia - see pneumococcal comment pneumonia - see comment, Presumptive negative for pneumococcal meningitis - see comment IKER (test code = IKER) Presumptive negative for pneumococcal pneumonia, suggesting no current or recent pneumococcal infection. Infection due to S. pneumoniae cannot be ruled out since the antigen present in the sample may be below the detection limit of the test. Lab Interpretation Normal (test code = 99638-9) [facility] [id number] 20:38:59 Test Item Value Reference Range Interpretation Comments Strep pneumoniae Presumptive negative Presumptive Antigen (test code = [place] [address]-5) pneumonia - see pneumococcal comment pneumonia - see comment, Presumptive negative for pneumococcal meningitis - see comment IKER (test code = IKER) Presumptive negative for pneumococcal pneumonia, suggesting no current or recent pneumococcal infection. Infection due to S. pneumoniae cannot be ruled out since the antigen present in the sample may be below the detection limit of the test. Lab Interpretation Normal (test code = 62222-7) [facility] [id number] 20:38:59 Test Item Value Reference Range Interpretation Comments Strep pneumoniae Presumptive negative Presumptive Antigen (test code = [place] [address]-3) pneumonia - see pneumococcal comment pneumonia - see comment, Presumptive negative for pneumococcal meningitis - see comment IKER (test code = IKER) Presumptive negative for pneumococcal pneumonia, suggesting no current or recent pneumococcal infection. Infection due to S. pneumoniae cannot be ruled out since the antigen present in the sample may be below the detection limit of the test. Lab Interpretation Normal (test code = 22512-1) [facility] [id number] 20:38:59 Test Item Value Reference Range Interpretation Comments Strep pneumoniae Presumptive negative Presumptive Antigen (test code = [place] for [address]76[address]-7) pneumonia - see pneumococcal comment pneumonia - see comment, Presumptive negative for pneumococcal meningitis - see comment IKER (test code = IKER) Presumptive negative for pneumococcal pneumonia, suggesting no current or recent pneumococcal infection. Infection due to S. pneumoniae cannot be ruled out since the antigen present in the sample may be below the detection limit of the test. Lab Interpretation Normal (test code = 61713-9) [facility] [id number] 20:38:59 Test Item Value Reference Range Interpretation Comments Strep pneumoniae Presumptive negative Presumptive Antigen (test code = [place] for [address]79-2) pneumonia - see pneumococcal comment pneumonia - see comment, Presumptive negative for pneumococcal meningitis - see comment IKER (test code = IKER) Presumptive negative for pneumococcal pneumonia, suggesting no current or recent pneumococcal infection. Infection due to S. pneumoniae cannot be ruled out since the antigen present in the sample may be below the detection limit of the test. Lab Interpretation Normal (test code = 04113-1) [facility] [id number] 20:38:59 Test Item Value Reference Range Interpretation Comments Strep pneumoniae Presumptive negative Presumptive Antigen (test code = [place] for [address]-0) pneumonia - see pneumococcal comment pneumonia - see comment, Presumptive negative for pneumococcal meningitis - see comment IKER (test code = IKER) Presumptive negative for pneumococcal pneumonia, suggesting no current or recent pneumococcal infection. Infection due to S. pneumoniae cannot be ruled out since the antigen present in the sample may be below the detection limit of the test. Lab Interpretation Normal (test code = 68564-0) [facility] [id number] 20:38:59 Test Item Value Reference Range Interpretation Comments Strep pneumoniae Presumptive negative Presumptive Antigen (test code = [place] pneum[place] for 164[address]-3) pneumonia - see pneumococcal comment pneumonia - see comment, Presumptive negative for pneumococcal meningitis - see comment IKER (test code = IKER) Presumptive negative for pneumococcal pneumonia, suggesting no current or recent pneumococcal infection. Infection due to S. pneumoniae cannot be ruled out since the antigen present in the sample may be below the detection limit of the test. Lab Interpretation Normal (test code = 37718-9) [facility] [id number] 20:38:59 Test Item Value Reference Range Interpretation Comments Strep pneumoniae Presumptive negative Presumptive Antigen (test code = [place] pneum[place] for 16732-6) pneumonia - see pneumococcal comment pneumonia - see comment, Presumptive negative for pneumococcal meningitis - see comment IKER (test code = IKER) Presumptive negative for pneumococcal pneumonia, suggesting no current or recent pneumococcal infection. Infection due to S. pneumoniae cannot be ruled out since the antigen present in the sample may be below the detection limit of the test. Lab Interpretation Normal (test code = 31062-5) [facility] [id number] 20:38:59 Test Item Value Reference Range Interpretation Comments Strep pneumoniae Presumptive negative Presumptive Antigen (test code = [place] [address]-3) pneumonia - see pneumococcal comment pneumonia - see comment, Presumptive negative for pneumococcal meningitis - see comment IKER (test code = IKER) Presumptive negative for pneumococcal pneumonia, suggesting no current or recent pneumococcal infection. Infection due to S. pneumoniae cannot be ruled out since the antigen present in the sample may be below the detection limit of the test. Lab Interpretation Normal (test code = 41036-1) [facility] [id number] 20:38:59 Test Item Value Reference Range Interpretation Comments Strep pneumoniae Presumptive negative Presumptive Antigen (test code = [place] 51939-6) pneumonia - see pneumococcal comment pneumonia - see comment, Presumptive negative for pneumococcal meningitis - see comment IKER (test code = IKER) Presumptive negative for pneumococcal pneumonia, suggesting no current or recent pneumococcal infection. Infection due to S. pneumoniae cannot be ruled out since the antigen present in the sample may be below the detection limit of the test. Lab Interpretation Normal (test code = 93856-1) [facility] [id number] 20:38:59 Test Item Value Reference Range Interpretation Comments Strep pneumoniae Presumptive negative Presumptive Antigen (test code = [place] [address]-3) pneumonia - see pneumococcal comment pneumonia - see comment, Presumptive negative for pneumococcal meningitis - see comment IKER (test code = IKER) Presumptive negative for pneumococcal pneumonia, suggesting no current or recent pneumococcal infection. Infection due to S. pneumoniae cannot be ruled out since the antigen present in the sample may be below the detection limit of the test. Lab Interpretation Normal (test code = 81579-4) [facility] [id number] 20:38:59 Test Item Value Reference Range Interpretation Comments Strep pneumoniae Presumptive negative Presumptive Antigen (test code = [place] for [address]33[address]-0) pneumonia - see pneumococcal comment pneumonia - see comment, Presumptive negative for pneumococcal meningitis - see comment IKER (test code = IKER) Presumptive negative for pneumococcal pneumonia, suggesting no current or recent pneumococcal infection. Infection due to S. pneumoniae cannot be ruled out since the antigen present in the sample may be below the detection limit of the test. Lab Interpretation Normal (test code = 35753-5) [facility] [id number] 20:38:59 Test Item Value Reference Range Interpretation Comments Strep pneumoniae Presumptive negative Presumptive Antigen (test code = [place] [address]-5) pneumonia - see pneumococcal comment pneumonia - see comment, Presumptive negative for pneumococcal meningitis - see comment IKER (test code = IKER) Presumptive negative for pneumococcal pneumonia, suggesting no current or recent pneumococcal infection. Infection due to S. pneumoniae cannot be ruled out since the antigen present in the sample may be below the detection limit of the test. Lab Interpretation Normal (test code = 65820-4) [facility] [id number] 20:38:59 Test Item Value Reference Range Interpretation Comments Strep pneumoniae Presumptive negative Presumptive Antigen (test code = [place] [address]-5) pneumonia - see pneumococcal comment pneumonia - see comment, Presumptive negative for pneumococcal meningitis - see comment IKER (test code = IKER) Presumptive negative for pneumococcal pneumonia, suggesting no current or recent pneumococcal infection. Infection due to S. pneumoniae cannot be ruled out since the antigen present in the sample may be below the detection limit of the test. Lab Interpretation Normal (test code = 34081-7) [facility] Center[facility]REP PNEUMONIAE [id number] 20:38:59 Test Item Value Reference Range Interpretation [...] detection limit of the test. LACTIC ACID, [id number] 19:00:48 Test Item Value Reference Range Interpretation Comments LACTATE BLOOD VENOUS (2) (BEAKER) 0.95 mmol/L 0.50-2.20 (test code = 2872) Pattern And Chain Maker ID - [id number] 19:00:27 Test Item Value Reference Range Interpretation Comments PROCALCITONIN (BEAKER) (test code = < ng/mL <0.05 3036) SEPSIS RISK (ng/mL)Low: 0.05-0.50Intermediate: 0.51-2.00High: >=2.01LACTIC ACID, [id number] 18:47:20 Test Item Value Reference Range Interpretation Comments LACTATE BLOOD VENOUS (2) (BEAKER) 0.97 mmol/L 0.50-2.20 (test code = 2872) Pattern And Chain Maker ID - EDCOMPREHENSIVE METABOLIC [id number] 05:42:03 Test Item Value Reference Range Interpretation [...] not appl icable for dialysis patien ts Pattern And [employer] Maker HODA TREJO [id number] 05:42:03 Test Item Value Reference Range Interpretation Comments MAGNESIUM (BEAKER) (test code = 1.5 mg/dL 1.6-2.6 L 627) Pattern And Chain Maker HODA TREJO [facility] (HEMOGRAM ONLY)2022-09-08 05:11:49 Test Item [...] SARS-Co V-2 (test code = target nucleic 25250-7) acids are not detected in thi s [...] of COVID-19 by the ir healthcare provider. IKER (test code = This test has been IKER) authorized by FDA under an EUA for [...] revoked sooner. Fact Sheet for Healthcare Providers: https://www.[employer]/Documents/Xp ert%20Xpress%20SAR S%20CoV-2/Fact%20S heets/302-3802%20S ARS-COV-2%20HEALTH CARE%20PROVIDERS%2 0FACT%20SHEET.pdf Fact Sheet for Healthcare Patients: https://www.[employer]/Documents/Xp ert%20Xpress%20SAR S%20CoV-2/Fact%20S heets/302-3801%20S ARS-COV-2%20PATIEN T%20FACT%20SHEET.p df Lab Interpretation Normal (test code = 35910-6) [facility]2022-09-07 07:59:01 Test Item Value Reference Interpretation Comments Range SARS-COV2/RT-PCR Negative Negative The SARS-Co V-2 (test code = target nucleic 56390-3) acids are not detected in thi s [...] of COVID-19 by the ir healthcare provider. IKER (test code = This test has been IKER) authorized by FDA under an EUA for [...] revoked sooner. Fact Sheet for Healthcare Providers: https://www.[employer]emation/Documents/Xp ert%20Xpress%20SAR S%20CoV-2/Fact%20S heets/302-3802%20S ARS-COV-2%20HEALTH CARE%20PROVIDERS%2 0FACT%20SHEET.pdf Fact Sheet for Healthcare Patients: https://www.[employer]emation/Documents/Xp ert%20Xpress%20SAR S%20CoV-2/Fact%20S heets/302-3801%20S ARS-COV-2%20PATIEN T%20FACT%20SHEET.p df Lab Interpretation Normal (test code = 04888-8) [facility]2022-09-07 07:59:01 Test Item Value Reference Range Interpretation Comments SARS-COV2/RT-PCR Negative Negative The SARS-Co V-2 target (test code = nucleic acids a re not 1617101) detected in thi s specimen. Negative result [...] revoked sooner. Fact Sheet for Healthcare Providers: https://www.Zilliant m/Documents/Xpert%20Xpress%20SARS%20CoV-2/Fact%20Sheets/302-3802%31GAVS-ZWP-7%20 HEALTHCARE%20PROVIDERS%20FACT%20SHEET.pdf Fact Sheet for Healthcare Patients: https://www.[employer]/Documents/Xpert%20Xp ress%20SARS%20CoV-2/Fact%20Sheets/302-3801%62AKAS-FWQ-1%20PATIENT%20FACT%20SHEET .pdfCT, [id number] 04:48:00Unlisted Reason for Exam - Click Yes and Enter Reason Below->NoIs this for enterography?->NoWill this procedure require oral contrast?->No [facility] 1975 Sex: [...] Burger MDReport Verified Date/Time: 04:48:11 TIC FUNCTION [id number] 04:11:49 Test Item Value Reference Range Interpretation [...] (test code = 25 U/L 6-55 347) Pattern And Chain Maker ID - CHAMP WOperator ID - CHAMP [id number] 03:24:36 Test Item Value Reference Range Interpretation Comments LIPASE (BEAKER) (test code = 749) < U/L 8-78 L Pattern And Chain Maker ID - CHAMP WBASIC METABOLIC [id number] 02:56:41 Test Item Value Reference Range Interpretation [...] not appl icable for dialysis patien ts Pattern And Chain Maker HODA Onofre PEREZNA WLACTIC ACID, [id number] 02:52:40 Test Item Value Reference Range Interpretation Comments LACTATE BLOOD VENOUS 1.11 mmol/L 0.50-2.20 Specime n slightly (2) (BEAKER) (test hemolyzed code = 0769) Pattern And Chain Maker ID Onofre PEREZNA WCBC W/PLT COUNT & AUTO [id number] 02:31:37 Test Item Value Reference Range Interpretation [...] = 2801) Urinalysis w/Microscopic + Reflex to [id number] 02:18:03 Test Item Value Reference Range Interpretation Comments Color, UA (test code Yellow = 5778-6) Clarity, UA (test Hazy code = 5767-9) Specific Radisson, UA 1.028 1.001-1.035 (test code = 5811-5) pH, UA (test code = 6.0 5.0-8.0 5803-2) Protein, UA (test 20 mg/dL Negative A code = 90810-3) Glucose, UA (test 150 mg/dL Negative A code = 365) Ketones, UA (test Negative Negative code = 2514-8) Bilirubin, UA (test Negative Negative code = 60266-0) Blood, UA (test code Negative Negative = 41458-8) Nitrite, UA (test Negative Negative code = 5802-4) Leukocytes, UA (test Small Negative A code = 5799-2) Urobilinogen, UA 0.2 0.2-1.0 (test code = 60915-5) RBC, UA (test code = 15 See_Comment [Autom ated 74012-1) message] The system which generated this result [...] UA See_Comment [Automate d (test code = 42478-7) messag e] The system which generated this [...] (test Occasional None Seen A code = 60034-0) Specimen Source (test code = 2795) IKER (test code = IKER) Pattern And Chain Maker ID - [auto]Pattern And Chain Maker ID - tech Lab Interpretation Abnormal (test code = 69572-1) [facility] 2022-09-07 02:18:03 Test Item Value Reference Range Interpretation Comments Color, UA (test code Yellow = 5778-6) Clarity, UA (test Hazy code = 5767-9) Specific Radisson, UA 1.028 1.001-1.035 (test code = 5811-5) pH, UA (test code = 6.0 5.0-8.0 5803-2) Protein, UA (test 20 mg/dL Negative A code = 20977-2) Glucose, UA (test 150 mg/dL Negative A code = 365) Ketones, UA (test Negative Negative code = 2514-8) Bilirubin, UA (test Negative Negative code = 09597-1) Blood, UA (test code Negative Negative = 81474-9) Nitrite, UA (test Negative Negative code = 5802-4) Leukocytes, UA (test Small Negative A code = 5799-2) Urobilinogen, UA 0.2 0.2-1.0 (test code = 72548-2) RBC, UA (test code = 15 See_Comment [Autom ated 10548-8) message] The system which generated this result [...] UA See_Comment [Automate d (test code = 17892-8) messag e] The system which generated this [...] (test Occasional None Seen A code = 64509-5) Specimen Source (test code = 2795) IKER (test code = IKER) Pattern And Chain Maker ID - [auto]Pattern And Chain Maker ID - tech Lab Interpretation Abnormal (test code = 17296-6) [facility] Reflex [facility] Culture 2022-09-07 02:18:03 Test Item Value Reference Range Interpretation Comments Color, UA (test code Yellow = 5778-6) Clarity, UA (test Hazy code = 5767-9) Specific Radisson, UA 1.028 1.001-1.035 (test code = 5811-5) pH, UA (test code = 6.0 5.0-8.0 5803-2) Protein, UA (test 20 mg/dL Negative A code = 79841-9) Glucose, UA (test 150 mg/dL Negative A code = 365) Ketones, UA (test Negative Negative code = 2514-8) Bilirubin, UA (test Negative Negative code = 75828-5) Blood, UA (test code Negative Negative = 09584-2) Nitrite, UA (test Negative Negative code = 5802-4) Leukocytes, UA (test Small Negative A code = 5799-2) Urobilinogen, UA 0.2 0.2-1.0 (test code = 43686-3) RBC, UA (test code = 15 See_Comment [Autom ated 98891-8) message] The system which generated this result [...] UA See_Comment [Automate d (test code = 01848-9) messag e] The system which generated this [...] (test Occasional None Seen A code = 94196-2) Specimen Source (test code = 2795) IKER (test code = IKER) Pattern And Chain Maker ID - [auto]Pattern And Chain Maker ID - tech Lab Interpretation Abnormal (test code = 64480-1) [facility] Reflex to Culture 2022-09-07 02:18:03 Test Item Value Reference Range Interpretation Comments Color, UA (test code Yellow = 5778-6) Clarity, UA (test Hazy code = 5767-9) Specific Radisson, UA 1.028 1.001-1.035 (test code = 5811-5) pH, UA (test code = 6.0 5.0-8.0 5803-2) Protein, UA (test 20 mg/dL Negative A code = 31054-5) Glucose, UA (test 150 mg/dL Negative A code = 365) Ketones, UA (test Negative Negative code = 2514-8) Bilirubin, UA (test Negative Negative code = 90163-1) Blood, UA (test code Negative Negative = 75306-1) Nitrite, UA (test Negative Negative code = 5802-4) Leukocytes, UA (test Small Negative A code = 5799-2) Urobilinogen, UA 0.2 0.2-1.0 (test code = 38183-4) RBC, UA (test code = 15 See_Comment [Autom ated 20121-8) message] The system which generated this result [...] UA See_Comment [Automate d (test code = 81418-0) messag e] The system which generated this [...] (test Occasional None Seen A code = 06769-7) Specimen Source (test code = 2795) IKER (test code = IKER) Pattern And Chain Maker ID - [auto]Pattern And Chain Maker ID - tech Lab Interpretation Abnormal (test code = 02183-7) [facility] Reflex to Culture 2022-09-07 02:18:03 Test Item Value Reference Range Interpretation Comments Color, UA (test code Yellow = 5778-6) Clarity, UA (test Hazy code = 5767-9) Specific Radisson, UA 1.028 1.001-1.035 (test code = 5811-5) pH, UA (test code = 6.0 5.0-8.0 5803-2) Protein, UA (test 20 mg/dL Negative A code = 85944-3) Glucose, UA (test 150 mg/dL Negative A code = 365) Ketones, UA (test Negative Negative code = 2514-8) Bilirubin, UA (test Negative Negative code = 97889-7) Blood, UA (test code Negative Negative = 71615-3) Nitrite, UA (test Negative Negative code = 5802-4) Leukocytes, UA (test Small Negative A code = 5799-2) Urobilinogen, UA 0.2 0.2-1.0 (test code = 29168-9) RBC, UA (test code = 15 See_Comment [Autom ated 68244-5) message] The system which generated this result [...] UA See_Comment [Automate d (test code = 95539-2) messag e] The system which generated this [...] (test Occasional None Seen A code = 17004-7) Specimen Source (test code = 2795) IKER (test code = IKER) Pattern And Chain Maker ID - [auto]Pattern And Chain Maker ID - tech Lab Interpretation Abnormal (test code = 93227-9) [facility] Reflex to Culture 2022-09-07 02:18:03 Test Item Value Reference Range Interpretation Comments Color, UA (test code Yellow = 5778-6) Clarity, UA (test Hazy code = 5767-9) Specific Radisson, UA 1.028 1.001-1.035 (test code = 5811-5) pH, UA (test code = 6.0 5.0-8.0 5803-2) Protein, UA (test 20 mg/dL Negative A code = 93934-8) Glucose, UA (test 150 mg/dL Negative A code = 365) Ketones, UA (test Negative Negative code = 2514-8) Bilirubin, UA (test Negative Negative code = 49414-9) Blood, UA (test code Negative Negative = 36973-3) Nitrite, UA (test Negative Negative code = 5802-4) Leukocytes, UA (test Small Negative A code = 5799-2) Urobilinogen, UA 0.2 0.2-1.0 (test code = 63316-7) RBC, UA (test code = 15 See_Comment [Autom ated 14508-3) message] The system which generated this result [...] UA See_Comment [Automate d (test code = 84269-2) messag e] The system which generated this [...] (test Occasional None Seen A code = 30766-7) Specimen Source (test code = 2795) IKER (test code = IKER) Pattern And Chain Maker ID - [auto]Pattern And Chain Maker ID - tech Lab Interpretation Abnormal (test code = 95070-0) [facility] Reflex [facility] Culture 2022-09-07 02:18:03 Test Item Value Reference Range Interpretation Comments Color, UA (test code Yellow = 5778-6) Clarity, UA (test Hazy code = 5767-9) Specific Radisson, UA 1.028 1.001-1.035 (test code = 5811-5) pH, UA (test code = 6.0 5.0-8.0 5803-2) Protein, UA (test 20 mg/dL Negative A code = 03863-8) Glucose, UA (test 150 mg/dL Negative A code = 365) Ketones, UA (test Negative Negative code = 2514-8) Bilirubin, UA (test Negative Negative code = 28299-0) Blood, UA (test code Negative Negative = 06458-8) Nitrite, UA (test Negative Negative code = 5802-4) Leukocytes, UA (test Small Negative A code = 5799-2) Urobilinogen, UA 0.2 0.2-1.0 (test code = 98697-9) RBC, UA (test code = 15 See_Comment [Autom ated 97805-7) message] The system which generated this result [...] UA See_Comment [Automate d (test code = 59713-1) messag e] The system which generated this [...] (test Occasional None Seen A code = 32225-5) Specimen Source (test code = 2795) IKER (test code = IKER) Pattern And Chain Maker ID - [auto]Pattern And Chain Maker ID - tech Lab Interpretation Abnormal (test code = 06587-0) [facility] Reflex to Culture 2022-09-07 02:18:03 Test Item Value Reference Range Interpretation Comments Color, UA (test code Yellow = 5778-6) Clarity, UA (test Hazy code = 5767-9) Specific Radisson, UA 1.028 1.001-1.035 (test code = 5811-5) pH, UA (test code = 6.0 5.0-8.0 5803-2) Protein, UA (test 20 mg/dL Negative A code = 15154-5) Glucose, UA (test 150 mg/dL Negative A code = 365) Ketones, UA (test Negative Negative code = 2514-8) Bilirubin, UA (test Negative Negative code = 13282-5) Blood, UA (test code Negative Negative = 07424-3) Nitrite, UA (test Negative Negative code = 5802-4) Leukocytes, UA (test Small Negative A code = 5799-2) Urobilinogen, UA 0.2 0.2-1.0 (test code = 01387-4) RBC, UA (test code = 15 See_Comment [Autom ated 98348-4) message] The system which generated this result [...] UA See_Comment [Automate d (test code = 67479-5) messag e] The system which generated this [...] (test Occasional None Seen A code = 07951-3) Specimen Source (test code = 2795) IKER (test code = IKER) Pattern And Chain Maker ID - [auto]Pattern And Chain Maker ID - tech Lab Interpretation Abnormal (test code = 70850-5) [facility] Reflex to Culture 2022-09-07 02:18:03 Test Item Value Reference Range Interpretation Comments Color, UA (test code Yellow = 5778-6) Clarity, UA (test Hazy code = 5767-9) Specific Radisson, UA 1.028 1.001-1.035 (test code = 5811-5) pH, UA (test code = 6.0 5.0-8.0 5803-2) Protein, UA (test 20 mg/dL Negative A code = 52128-1) Glucose, UA (test 150 mg/dL Negative A code = 365) Ketones, UA (test Negative Negative code = 2514-8) Bilirubin, UA (test Negative Negative code = 23505-2) Blood, UA (test code Negative Negative = 16993-5) Nitrite, UA (test Negative Negative code = 5802-4) Leukocytes, UA (test Small Negative A code = 5799-2) Urobilinogen, UA 0.2 0.2-1.0 (test code = 10491-1) RBC, UA (test code = 15 See_Comment [Autom ated 24775-1) message] The system which generated this result [...] <1 See_Comment [Automate d (test code = 47719-4) messag e] The system which generated this [...] (test Occasional None Seen A code = 38847-0) Specimen Source (test code = 2795) IKER (test code = IKER) Pattern And Chain Maker ID - [auto]Pattern And Chain Maker ID - tech Lab Interpretation Abnormal (test code = 60647-7) [facility] Reflex [facility] Culture 2022-09-07 02:18:03 Test Item Value Reference Range Interpretation Comments Color, UA (test code Yellow = 5778-6) Clarity, UA (test Hazy code = 5767-9) Specific Radisson, UA 1.028 1.001-1.035 (test code = 5811-5) pH, UA (test code = 6.0 5.0-8.0 5803-2) Protein, UA (test 20 mg/dL Negative A code = 49433-0) Glucose, UA (test 150 mg/dL Negative A code = 365) Ketones, UA (test Negative Negative code = 2514-8) Bilirubin, UA (test Negative Negative code = 62415-9) Blood, UA (test code Negative Negative = 24348-9) Nitrite, UA (test Negative Negative code = 5802-4) Leukocytes, UA (test Small Negative A code = 5799-2) Urobilinogen, UA 0.2 0.2-1.0 (test code = 15191-7) RBC, UA (test code = 15 See_Comment [Autom ated 17317-3) message] The system which generated this result [...] <1 See_Comment [Automate d (test code = 35629-8) messag e] The system which generated this [...] (test Occasional None Seen A code = 69529-6) Specimen Source (test code = 2795) IKER (test code = IKER) Pattern And Chain Maker ID - [auto]Pattern And Chain Maker ID - tech Lab Interpretation Abnormal (test code = 18155-2) [facility] Reflex to Culture 2022-09-07 02:18:03 Test Item Value Reference Range Interpretation Comments Color, UA (test code Yellow = 5778-6) Clarity, UA (test Hazy code = 5767-9) Specific Radisson, UA 1.028 1.001-1.035 (test code = 5811-5) pH, UA (test code = 6.0 5.0-8.0 5803-2) Protein, UA (test 20 mg/dL Negative A code = 07429-4) Glucose, UA (test 150 mg/dL Negative A code = 365) Ketones, UA (test Negative Negative code = 2514-8) Bilirubin, UA (test Negative Negative code = 50213-3) Blood, UA (test code Negative Negative = 79510-7) Nitrite, UA (test Negative Negative code = 5802-4) Leukocytes, UA (test Small Negative A code = 5799-2) Urobilinogen, UA 0.2 0.2-1.0 (test code = 86821-9) RBC, UA (test code = 15 See_Comment [Autom ated 18877-4) message] The system which generated this result [...] <1 See_Comment [Automate d (test code = 72482-4) messag e] The system which generated this [...] (test Occasional None Seen A code = 09664-5) Specimen Source (test code = 2795) IKER (test code = IKER) Pattern And Chain Maker ID - [auto]Pattern And Chain Maker ID - tech Lab Interpretation Abnormal (test code = 32391-9) [facility] Reflex to Culture 2022-09-07 02:18:03 Test Item Value Reference Range Interpretation Comments Color, UA (test code Yellow = 5778-6) Clarity, UA (test Hazy code = 5767-9) Specific Radisson, UA 1.028 1.001-1.035 (test code = 5811-5) pH, UA (test code = 6.0 5.0-8.0 5803-2) Protein, UA (test 20 mg/dL Negative A code = 29890-8) Glucose, UA (test 150 mg/dL Negative A code = 365) Ketones, UA (test Negative Negative code = 2514-8) Bilirubin, UA (test Negative Negative code = 84528-1) Blood, UA (test code Negative Negative = 61252-1) Nitrite, UA (test Negative Negative code = 5802-4) Leukocytes, UA (test Small Negative A code = 5799-2) Urobilinogen, UA 0.2 0.2-1.0 (test code = 35456-3) RBC, UA (test code = 15 See_Comment [Autom ated 16985-0) message] The system which generated this result [...] <1 See_Comment [Automate d (test code = 87841-7) messag e] The system which generated this [...] (test Occasional None Seen A code = 17903-4) Specimen Source (test code = 2795) IKER (test code = IKER) Pattern And Chain Maker ID - [auto]Pattern And Chain Maker ID - tech Lab Interpretation Abnormal (test code = 44308-1) [facility] Reflex to Culture 2022-09-07 02:18:03 Test Item Value Reference Range Interpretation Comments Color, UA (test code Yellow = 5778-6) Clarity, UA (test Hazy code = 5767-9) Specific Radisson, UA 1.028 1.001-1.035 (test code = 5811-5) pH, UA (test code = 6.0 5.0-8.0 5803-2) Protein, UA (test 20 mg/dL Negative A code = 20203-5) Glucose, UA (test 150 mg/dL Negative A code = 365) Ketones, UA (test Negative Negative code = 2514-8) Bilirubin, UA (test Negative Negative code = 51055-4) Blood, UA (test code Negative Negative = 78651-2) Nitrite, UA (test Negative Negative code = 5802-4) Leukocytes, UA (test Small Negative A code = 5799-2) Urobilinogen, UA 0.2 0.2-1.0 (test code = 74239-6) RBC, UA (test code = 15 See_Comment [Autom ated 98549-4) message] The system which generated this result [...] <1 See_Comment [Automate d (test code = 47036-5) messag e] The system which generated this [...] (test Occasional None Seen A code = 44310-7) Specimen Source (test code = 2795) IKER (test code = IKER) Pattern And Chain Maker ID - [auto]Pattern And Chain Maker ID - tech Lab Interpretation Abnormal (test code = 07892-1) [facility] Reflex [facility] Culture 2022-09-07 02:18:03 Test Item Value Reference Range Interpretation Comments Color, UA (test code Yellow = 5778-6) Clarity, UA (test Hazy code = 5767-9) Specific Radisson, UA 1.028 1.001-1.035 (test code = 5811-5) pH, UA (test code = 6.0 5.0-8.0 5803-2) Protein, UA (test 20 mg/dL Negative A code = 57114-8) Glucose, UA (test 150 mg/dL Negative A code = 365) Ketones, UA (test Negative Negative code = 2514-8) Bilirubin, UA (test Negative Negative code = 56294-0) Blood, UA (test code Negative Negative = 83822-5) Nitrite, UA (test Negative Negative code = 5802-4) Leukocytes, UA (test Small Negative A code = 5799-2) Urobilinogen, UA 0.2 0.2-1.0 (test code = 89666-5) RBC, UA (test code = 15 See_Comment [Autom ated 08002-3) message] The system which generated this result [...] UA See_Comment [Automate d (test code = 94865-6) messag e] The system which generated this [...] (test Occasional None Seen A code = 79017-0) Specimen Source (test code = 2795) IKER (test code = IKER) Pattern And Chain Maker ID - [auto]Pattern And Chain Maker ID - tech Lab Interpretation Abnormal (test code = 41058-4) [facility] Reflex [facility] Culture 2022-09-07 02:18:03 Test Item Value Reference Range Interpretation Comments Color, UA (test code Yellow = 5778-6) Clarity, UA (test Hazy code = 5767-9) Specific Radisson, UA 1.028 1.001-1.035 (test code = 5811-5) pH, UA (test code = 6.0 5.0-8.0 5803-2) Protein, UA (test 20 mg/dL Negative A code = 64586-8) Glucose, UA (test 150 mg/dL Negative A code = 365) Ketones, UA (test Negative Negative code = 2514-8) Bilirubin, UA (test Negative Negative code = 93373-3) Blood, UA (test code Negative Negative = 03576-4) Nitrite, UA (test Negative Negative code = 5802-4) Leukocytes, UA (test Small Negative A code = 5799-2) Urobilinogen, UA 0.2 0.2-1.0 (test code = 33629-5) RBC, UA (test code = 15 See_Comment [Autom ated 88835-8) message] The system which generated this result [...] UA See_Comment [Automate d (test code = 80489-2) messag e] The system which generated this [...] (test Occasional None Seen A code = 06217-5) Specimen Source (test code = 2795) IKER (test code = IKER) Pattern And Chain Maker ID - [auto]Pattern And Chain Maker ID - tech Lab Interpretation Abnormal (test code = 09827-4) [facility] Reflex [facility] Culture 2022-09-07 02:18:03 Test Item Value Reference Range Interpretation Comments Color, UA (test code Yellow = 5778-6) Clarity, UA (test Hazy code = 5767-9) Specific Radisson, UA 1.028 1.001-1.035 (test code = 5811-5) pH, UA (test code = 6.0 5.0-8.0 5803-2) Protein, UA (test 20 mg/dL Negative A code = 29170-3) Glucose, UA (test 150 mg/dL Negative A code = 365) Ketones, UA (test Negative Negative code = 2514-8) Bilirubin, UA (test Negative Negative code = 21900-3) Blood, UA (test code Negative Negative = 41639-2) Nitrite, UA (test Negative Negative code = 5802-4) Leukocytes, UA (test Small Negative A code = 5799-2) Urobilinogen, UA 0.2 0.2-1.0 (test code = 12075-5) RBC, UA (test code = 15 See_Comment [Autom ated 50049-4) message] The system which generated this result [...] UA See_Comment [Automate d (test code = 21713-0) messag e] The system which generated this [...] (test Occasional None Seen A code = 18543-3) Specimen Source (test code = 2795) IKER (test code = IKER) Pattern And Chain Maker ID - [auto]Pattern And Chain Maker ID - tech Lab Interpretation Abnormal (test code = 88175-6) [facility] [id number] 02:18:03 Test Item Value Reference Range Interpretation [...] = 1521) SOURCE(BEAKER) (test code = 2795) Pattern And Chain Maker ID - [auto]Pattern And Chain Maker ID - techCF RESPIRATORY [id number] 13:04:52 Test Item Value Reference Range Interpretation [...] 3+ Normal respiratory maria del carmen presentCT, [id number] 05:31:00Reason for exam:->ABDOMINAL PAINReason for exam:->NAUSEAReason for exam:- >BLOATEDWhat is the patient's sedation requirement?->No Sedation [facility] 1975 Sex: [...] Signed: Teddy Ly MDReportVerified Date/Time: 06/27/2022 05:31:41 [id number] 02:42:45 Test Item Value Reference Range Interpretation Comments LIPASE (BEAKER) (test code = 749) < U/L 8-78 L Pattern And Chain Maker ID - PIAYA LHEPATIC FUNCTION [id number] 02:15:20 Test Item Value Reference Range Interpretation [...] (test code = 16 U/L 6-55 347) Pattern And Chain Maker ID - PIAYA LBASIC METABOLIC [id number] 02:15:19 Test Item Value Reference Range Interpretation [...] not appl icable for dialysis patien ts Pattern And Chain Maker ID - PIAYA LCBC W/PLT COUNT & AUTO [id number] 01:44:55 Test Item Value Reference Range Interpretation [...] PERCENT (BEAKER) (test code = 2801) BLOOD [id number] 22:01:03 Test Item Value Reference Range Interpretation Comments CULTURE (BEAKER) (test No growth in 5 days code = 1095) BLOOD [id number] 22:01:03 Test Item Value Reference Range Interpretation Comments CULTURE (BEAKER) (test No growth in 5 days code = 1095) POC-Glucose [id number] 17:23:45 Test Item Value Reference Range Interpretation Comments POC-Glucose Meter (test 137 mg/dL 70-110 H : TE STED AT [facility] code = 1538) [address] [place] [address], [facility] 30: Pattern And Chain Maker/Techni rian ID = [id number] for [employer], Kayl ynn Lab Interpretation (test Abnormal code = 18686-5) [facility]-Glucose [id number] 17:23:45 Test Item Value Reference Range Interpretation Comments POC-Glucose Meter (test 137 mg/dL 70-110 H : TE STED AT [facility] code = 1538) [address] [place] [address], [facility] 30: Pattern And Chain Maker/Techni rian ID = [id number] for [employer], Kayl ynn Lab Interpretation (test Abnormal code = 13273-7) [facility]-Glucose [id number] 17:23:45 Test Item Value Reference Range Interpretation Comments POC-Glucose Meter (test 137 mg/dL 70-110 H : TE STED AT [facility] code = 1538) [address] [place] [address], 770 30: Pattern And Chain Maker/Techni rian ID = [id number] for [employer], Kayl ynn Lab Interpretation (test Abnormal code = 64755-5) [facility]-Glucose [id number] 17:23:45 Test Item Value Reference Range Interpretation Comments POC-Glucose Meter (test 137 mg/dL 70-110 H : TE STED AT [facility] code = 1538) [address] [place] [address], 770 30: Pattern And Chain Maker/Techni rian ID = [id number] for Latter-Day, Kayl ynn Lab Interpretation (test Abnormal code = 25236-3) [facility]-Glucose [id number] 17:23:45 Test Item Value Reference Range Interpretation Comments POC-Glucose Meter (test 137 mg/dL 70-110 H : TE STED AT [facility] code = 1538) [address] [place] [address], 770 30: Pattern And Chain Maker/Techni rian ID = [id number] for Latter-Day, Kayl ynn Lab Interpretation (test Abnormal code = 42849-7) [facility]-Glucose [id number] 17:23:45 Test Item Value Reference Range Interpretation Comments POC-Glucose Meter (test 137 mg/dL 70-110 H : TE STED AT [facility] code = 1538) [address] [place] [address], 770 30: Pattern And Chain Maker/Techni rian ID = [id number] for Latter-Day, Kayl ynn Lab Interpretation (test Abnormal code = 12912-3) [facility]-Glucose [id number] 17:23:45 Test Item Value Reference Range Interpretation Comments POC-Glucose Meter (test 137 mg/dL 70-110 H : TE STED AT [facility] code = 1538) [address] [place] [address], 770 30: Pattern And Chain Maker/Techni rian ID = [id number] for Latter-Day, Kayl ynn Lab Interpretation (test Abnormal code = 38159-0) [facility]-Glucose [id number] 17:23:45 Test Item Value Reference Range Interpretation Comments POC-Glucose Meter (test 137 mg/dL 70-110 H : TE STED AT [facility] code = 1538) [address] [place] [address], 770 30: Pattern And Chain Maker/Techni rian ID = [id number] for Latter-Day, Kayl ynn Lab Interpretation (test Abnormal code = 68466-8) [facility]-Glucose [id number] 17:23:45 Test Item Value Reference Range Interpretation Comments POC-Glucose Meter (test 137 mg/dL 70-110 H : TE STED AT [facility] code = 1538) [address] [place] [address], 770 30: Pattern And Chain Maker/Techni rian ID = [id number] for Cristian Brooks Lab Interpretation (test Abnormal code = 21106-6) [facility] [id number] 17:23:45 Test Item Value Reference Range Interpretation Comments POC-GLUCOSE METER 137 mg/dL 70-110 H : TESTED A T [facility] 6720 (BEAKER) (test code = [facility], 1538) 46470: Pattern And Chain Maker/Techni rian ID = [id number] for Radha Carranza POCT-GLUCOSE [id number] 13:08:56 Test Item Value Reference Range Interpretation Comments POC-GLUCOSE METER 101 mg/dL 70-110 : TESTED A T [facility] 6720 (BEAKER) (test code = [facility], 1538) 17981: Pattern And Chain Maker/Techni rian ID = [id number] for Radha Carranza POCT-GLUCOSE [id number] 06:01:56 Test Item Value Reference Range Interpretation Comments POC-GLUCOSE METER 99 mg/dL 70-110 : TESTED A T [facility] 6720 (BEAKER) (test code = [facility], 1538) 04391: Pattern And Chain Maker/Techni rian ID = [id number] for JENNY SAUNDERS, NAOMI [id number] 04:54:21 Test Item Value Reference Range Interpretation Comments PHOSPHORUS (BEAKER) (test code = 2.2 mg/dL 2.3-4.7 L 604) Pattern And Chain Maker ID - PIAYA LBASIC METABOLIC [id number] 04:54:20 Test Item Value Reference Range Interpretation [...] not appl icable for dialysis patien ts Pattern And Chain Maker ID - PIHANS [id number] 04:54:20 Test Item Value Reference Range Interpretation Comments MAGNESIUM (BEAKER) (test code = 1.5 mg/dL 1.6-2.6 L 627) Pattern And Chain Maker ID - ANETA LCALCIUM, [id number] 04:35:35 Test Item Value Reference Range Interpretation Comments CALCIUM IONIZED (BEAKER) (test 1.21 mmol/L 1.12-1.27 code = 698) PH, BLOOD (BEAKER) (test code = 7.44 1810) CBC W/PLT COUNT & AUTO [id number] 04:29:51 Test Item Value Reference Range Interpretation [...] PERCENT (BEAKER) (test code = 2801) POCT-GLUCOSE [id number] 00:27:52 Test Item Value Reference Range Interpretation Comments POC-GLUCOSE METER 122 mg/dL 70-110 H : TESTED A T [facility] 6720 (BEAKER) (test code = [facility], 1538) 97348: Pattern And Chain Maker/Techni rian ID = [id number] for UL LATTIL, NAOMI POCT-GLUCOSE [id number] 17:23:54 Test Item Value Reference Range Interpretation Comments POC-GLUCOSE METER 99 mg/dL 70-110 : TESTED A T [facility] 6720 (BEAKER) (test code = [facility], 1538) 68147: Pattern And Chain Maker/Techni rian ID = [id number] for Radha Mulligan POCT-GLUCOSE [id number] 13:00:38 Test Item Value Reference Range Interpretation Comments POC-GLUCOSE METER 109 mg/dL 70-110 : TESTED A T [facility] 6720 (BEAKER) (test code = [place], 1538) 28850: Pattern And Chain Maker/Techni rian ID = [id number] for Radha Carranza POCT-GLUCOSE [id number] 08:29:30 Test Item Value Reference Range Interpretation Comments POC-GLUCOSE METER 88 mg/dL 70-110 : TESTED A T [facility] 6720 (BEAKER) (test code = [facility], 1538) 10659: Pattern And Chain Maker/Techni rian ID = [id number] for Radha Mulligan [id number] 06:05:22 Test Item Value Reference Range Interpretation Comments MAGNESIUM (BEAKER) (test code = 1.6 mg/dL 1.6-2.6 627) Pattern And Chain Maker ID - [id number] 06:05:22 Test Item Value Reference Range Interpretation Comments PHOSPHORUS (BEAKER) (test code = 2.5 mg/dL 2.3-4.7 604) Pattern And Chain Maker ID - MITCHBASIC METABOLIC [id number] 06:05:21 Test Item Value Reference Range Interpretation [...] not appl icable for dialysis patien ts Pattern And Chain Maker ID - MITCHCBC W/PLT COUNT & AUTO [id number] 05:22:05 Test Item Value Reference Range Interpretation [...] PERCENT (BEAKER) (test code = 2801) CALCIUM, [id number] 05:08:23 Test Item Value Reference Range Interpretation Comments CALCIUM IONIZED (BEAKER) (test 1.18 mmol/L 1.12-1.27 code = 698) PH, BLOOD (BEAKER) (test code = 7.42 1810) POCT-GLUCOSE [id number] 21:15:12 Test Item Value Reference Range Interpretation Comments POC-GLUCOSE METER 98 mg/dL 70-110 : TESTED A T [facility] 6720 (BEAKER) (test code = [facility], [facility]) 02923: Pattern And Chain Maker/Techni rian ID = [id number] for SASU , KURT POCT-GLUCOSE [id number] 17:48:23 Test Item Value Reference Range Interpretation Comments POC-GLUCOSE METER 90 mg/dL 70-110 : TESTED A T [facility] 6720 (BEAKER) (test code = [facility], 1538) 17959: Pattern And Chain Maker/Techni rian ID = [id number] for OLLIE OS, BJORN POCT-GLUCOSE [id number] 12:56:50 Test Item Value Reference Range Interpretation Comments POC-GLUCOSE METER 78 mg/dL 70-110 : TESTED A T [facility] 6720 (BEAKER) (test code = [facility], 1538) 06152: Pattern And Chain Maker/Techni rian ID = [id number] for OLLIE OS, BJORN POCT-GLUCOSE [id number] 10:25:02 Test Item Value Reference Range Interpretation Comments POC-GLUCOSE METER 86 mg/dL 70-110 : TESTED A T [facility] 6720 (BEAKER) (test code = [facility], 1538) 45845: Pattern And Chain Maker/Techni rian ID = [id number] for MARGARITO BANDA POCT-GLUCOSE [id number] 08:38:42 Test Item Value Reference Range Interpretation Comments POC-GLUCOSE METER 39 mg/dL 70-110 LL : TESTED A T [facility] 6720 (BEAKER) (test code = [place], 1538) 79407: Pattern And Chain Maker/Techni rian ID = [id number] for BJORN SANCHES BASIC METABOLIC [id number] 06:19:55 Test Item Value Reference Range Interpretation [...] not appl icable for dialysis patien ts Pattern And Chain Maker ID - ANETA [id number] 06:19:55 Test Item Value Reference Range Interpretation Comments MAGNESIUM (BEAKER) (test code = 1.7 mg/dL 1.6-2.6 627) Pattern And Chain Maker ID - ANETA [id number] 06:19:55 Test Item Value Reference Range Interpretation Comments PHOSPHORUS (BEAKER) (test code = 2.7 mg/dL 2.3-4.7 604) Pattern And Chain Maker ID - ANETA ODONNELLLCIUM, [id number] 05:32:18 Test Item Value Reference Range Interpretation Comments CALCIUM IONIZED (BEAKER) (test 1.17 mmol/L 1.12-1.27 code = 698) PH, BLOOD (BEAKER) (test code = 7.38 1810) CBC W/PLT COUNT & AUTO [id number] 05:17:46 Test Item Value Reference Range Interpretation [...] PERCENT (BEAKER) (test code = 2801) POCT-GLUCOSE [id number] 21:21:38 Test Item Value Reference Range Interpretation Comments POC-GLUCOSE METER 83 mg/dL 70-110 : TESTED A T [facility] 6720 (BEAKER) (test code = [facility], 153) 22738: Pattern And Chain Maker/Techni rian ID = [id number] for KURT JACQUES POCT-GLUCOSE [id number] 17:35:25 Test Item Value Reference Range Interpretation Comments POC-GLUCOSE METER 92 mg/dL 70-110 : TESTED A T [facility] 6720 (BEAKER) (test code = [facility], 1538) 00724: Pattern And Chain Maker/Techni rian ID = [id number] for OLLIE OS, BJORN POCT-GLUCOSE [id number] 12:27:21 Test Item Value Reference Range Interpretation Comments POC-GLUCOSE METER 86 mg/dL 70-110 : TESTED A T [facility] 6720 (BEAKER) (test code = [facility], 1538) 72986: Pattern And Chain Maker/Techni rian ID = [id number] for ABDIRASHID ANGEL BASIC METABOLIC [id number] 05:55:16 Test Item Value Reference Range Interpretation [...] not appl icable for dialysis patien ts Pattern And Chain Maker ID - NEIL [id number] 05:55:16 Test Item Value Reference Range Interpretation Comments MAGNESIUM (BEAKER) (test code = 1.4 mg/dL 1.6-2.6 L 627) Pattern And Chain Maker ID - NEIL MCBC W/PLT COUNT & AUTO [id number] 04:55:50 Test Item Value Reference Range Interpretation [...] PERCENT (BEAKER) (test code = 2801) SARS-COV2/RT-PCR ([facility])2022-06-18 23:40:17 Test Item Value Reference Range Interpretation Comments SARS-COV2/RT-PCR Negative Negative The SARS-Co V-2 target (test code = nucleic acids a re not 7944269) detected in thi s specimen. Negative result [...] revoked sooner. Fact Sheet for Healthcare Providers: https://www.[employer] m/Documents/Xpert%20Xpress%20SARS%20CoV-2/Fact%20Sheets/302-3802%02WEDA-NDW-5%20 HEALTHCARE%20PROVIDERS%20FACT%20SHEET.pdf Fact Sheet for Healthcare Patients: https://www.[employer]/Documents/Xpert%20Xp ress%20SARS%20CoV-2/Fact%20Sheets/302-3801%67JCGC-TRR-7%20PATIENT%20FACT%20SHEET .pdfCT, [id number] 23:39:00Unlisted Reason for Exam - Click Yes and Enter Reason Below->NoIs this for enterography?->NoWill this procedure require oral contrast?->No [facility] : 1975 Sex: MFINAL REPORT TECHNIQUE: CT [...] Mosley MDReport Verified Date/Time: 06/18/2022 23:39:49 POCT-GLUCOSE [id number] 23:35:19 Test Item Value Reference Range Interpretation Comments POC-GLUCOSE METER 105 mg/dL 70-110 : TESTED A T [facility] 6720 ([email or web address]) (test code [facility], = 1538) 44079: Pattern And Chain Maker/Techni rian ID = [id number] for SABINE WOODS [id number] 21:52:33 Test Item Value Reference Range Interpretation Comments PARTIAL THROMBOPLASTIN TIME 31.4 seconds 22.5-36.0 (BEAKER) (test code = 760) PROTHROMBIN TIME/[id number] 21:51:51 Test Item Value Reference Range Interpretation Comments PROTIME (BEAKER) 18.2 seconds 11.9-14.2 H (test code = 759) INR (BEAKER) (test 1.61 See_Comment [Automat ed message] code = 370) The system whic h generated this result [...] not appl icable for dialysis patien ts Pattern And Chain Maker ID - NEIL MLACTIC ACID, [id number] 21:36:08 Test Item Value Reference Range Interpretation Comments LACTATE BLOOD VENOUS 1.03 mmol/L 0.50-2.20 Specime n slightly (2) (BEAKER) (test hemolyzed code = 2872) Pattern And Chain Maker ID - HARLEY MCBC W/PLT COUNT & AUTO [id number] 21:29:50 Test Item Value Reference Range Interpretation [...] (test code = No acid fast bacilli 02980-3) [facility]2022-03-05 13:13:42 Test Item Value Reference Range Interpretation Comments Result (test code = No acid-fast bacilli 6463-4) isolated in 42 days AFB Smear (test code = No acid fast bacilli 73911-7) [facility]sputum only)2022-03-05 13:13:42 Test Item Value Reference Range Interpretation Comments Result (test code = No acid-fast bacilli 6463-4) isolated in 42 days AFB Smear (test code = No acid fast bacilli 57746-5) [facility] (sputum only)2022-03-05 13:13:42 Test Item Value Reference Range Interpretation Comments Result (test code = No acid-fast bacilli 6463-4) isolated in 42 days AFB Smear (test code = No acid fast bacilli 16271-5) [facility] (sputum only)2022-03-05 13:13:42 Test Item Value Reference Range Interpretation Comments Result (test code = No acid-fast bacilli 6463-4) isolated in 42 days AFB Smear (test code = No acid fast bacilli 25864-9) [facility] (sputum only)2022-03-05 13:13:42 Test Item Value Reference Range Interpretation Comments Result (test code = No acid-fast bacilli 6463-4) isolated in 42 days AFB Smear (test code = No acid fast bacilli 63089-5) [facility] (sputum only)2022-03-05 13:13:42 Test Item Value Reference Range Interpretation Comments Result (test code = No acid-fast bacilli 6463-4) isolated in 42 days AFB Smear (test code = No acid fast bacilli 57900-4) [facility] (sputum only)2022-03-05 13:13:42 Test Item Value Reference Range Interpretation Comments Result (test code = No acid-fast bacilli 6463-4) isolated in 42 days AFB Smear (test code = No acid fast bacilli 64646-1) [facility]MEAR (SPUTUM ONLY)2022-03-05 13:13:42 Test [...] code = 994) seen Fungus culture + [id number] 17:15:11 Test Item Value Reference Range Interpretation Comments Result (test code = No fungus isolated in 6463-4) 28 days Fungus Smear (test No fungi seen code = 1406) [facility] + [id number] 17:15:11 Test Item Value Reference Range Interpretation Comments Result (test code = No fungus isolated in 6463-4) 28 days Fungus Smear (test No fungi seen code = 1406) [facility] + [id number] 17:15:11 Test Item Value Reference Range Interpretation Comments Result (test code = No fungus isolated in 6463-4) 28 days Fungus Smear (test No fungi seen code = 1406) [facility] + [id number] 17:15:11 Test Item Value Reference Range Interpretation Comments Result (test code = No fungus isolated in 6463-4) 28 days Fungus Smear (test No fungi seen code = 1406) [facility] + [id number] 17:15:11 Test Item Value Reference Range Interpretation Comments Result (test code = No fungus isolated in 6463-4) 28 days Fungus Smear (test No fungi seen code = 1406) [facility] + [id number] 17:15:11 Test Item Value Reference Range Interpretation Comments Result (test code = No fungus isolated in 6463-4) 28 days Fungus Smear (test No fungi seen code = 1406) [facility] + [id number] 17:15:11 Test Item Value Reference Range Interpretation Comments CULTURE (BEAKER) (test No fungus isolated in code = 1095) 28 days FUNGUS SMEAR (BEAKER) No fungi seen (test code = 1406) FUNGUS CULTURE + [id number] 23:48:39 Test Item Value Reference Range Interpretation Comments CULTURE (BEAKER) (test No fungus isolated in code = 1095) 28 days FUNGUS SMEAR (BEAKER) No fungi seen (test code = 1406) [facility] RESPIRATORY [id number] 09:35:46 Test Item Value Reference Interpretation Comments [...] 4+ Normal respiratory maria del carmen presentSPIN/CONCENTRATION [id number] 06:58:03 Test Item Value Reference Range Interpretation Comments Concentration charged (test code = Done 2657) [facility] [id number] 06:58:03 Test Item Value Reference Range Interpretation Comments Concentration charged (test code = Done 2657) [facility] [id number] 06:58:03 Test Item Value Reference Range Interpretation Comments Concentration charged (test code = Done 2657) [facility] [id number] 06:58:03 Test Item Value Reference Range Interpretation Comments Concentration charged (test code = Done 2657) [facility] [id number] 06:58:03 Test Item Value Reference Range Interpretation Comments Concentration charged (test code = Done 2657) [facility] [id number] 06:58:03 Test Item Value Reference Range Interpretation Comments Concentration charged (test code = Done 2657) [facility] [id number] 06:58:03 Test Item Value Reference Range Interpretation Comments CONCENTRATION CHARGED (BEAKER) (test Done code = 2657) CF RESPIRATORY [id number] 12:17:43 Test Item Value Reference Interpretation Comments [...] S [Auto mated message] 1) The system [employer] generated this result transmit joann reference range : Susceptible 0-1 6 , Resistant <0 or >16 . The reference range was not u sed to interpret th is result as normal/abnormal . Aztreonam (test code See_Comment S [Autom ated message] = 32) The system [employer] generated this result transmit joann reference range : Susceptible 0-8 , Resistant <0 or >8 . The reference r taurus was not used to interpret this result as normal/abnormal . Cefepime (test code = See_Comment R [Auto mated message] 51) The system [employer] generated this result transmit joann reference range : Susceptible 0-8 , Resistant <0 or >8 . The reference r taurus was not used to interpret this result as normal/abnormal . Ceftazidime (test See_Comment S [Automate d message] code = 27) The system [employer] generated this result transmit joann reference range : Susceptible 0-8 , Resistant <0 or >8 . The reference r taurus was not used to interpret this result as normal/abnormal . Ciprofloxacin (test See_Comment S [Automa joann message] code = 7) The system [employer] generated this result transmit joann reference range : Susceptible 0-0 .5 , Resistant <0 or >.5 . The reference range was not u sed to interpret th is result as normal/abnormal . Doripenem (test code See_Comment S [Autom ated message] = 100) The system [employer] generated this result transmit joann reference range : Susceptible 0-2 , Resistant <0 or >2 . The reference r taurus was not used to interpret this result as normal/abnormal . Gentamicin (test code See_Comment S [Auto mated message] = 18) The system [employer] generated this result transmit joann reference range : Susceptible 0-4 , Resistant <0 or >4 . The reference r taurus was not used to interpret this result as normal/abnormal . Imipenem (test code = See_Comment S [Auto mated message] 19) The system [employer] generated this result transmit joann reference range : Susceptible 0-2 , Resistant <0 or >2 . The reference r taurus was not used to interpret this result as normal/abnormal . Levofloxacin (test See_Comment S [Automat ed message] code = 22) The system [employer] generated this result transmit joann reference range : Susceptible 0-1 , Resistant <0 or >1 . The reference r taurus was not used to interpret this result as normal/abnormal . Meropenem (test code See_Comment S [Autom ated message] = 34) The system [employer] generated this result transmit joann reference range : Susceptible 0-2 , Resistant <0 or >2 . The reference r taurus was not used to interpret this result as normal/abnormal . Piperacillin (test See_Comment S [Automat ed message] code = 24) The system [employer] generated this result transmit joann reference range [...] [Auto mated message] = 25) The system [employer] generated this result transmit joann reference range : Susceptible 0-4 , Resistant <0 or >4 . The reference r taurus was not used to interpret this result as normal/abnormal . 3+ Normal respiratory maria del carmen presentSPIN/CONCENTRATION [id number] 11:16:43 Test Item Value Reference Range Interpretation Comments CONCENTRATION CHARGED (BEAKER) (test Done code = 2657) RAD, ABDOMEN/KUB, 1 VIEW [id number] 07:57:00Reason for exam:->Ileus [facility] : 1975 Sex: [...] MDReport Verified Date/Time: 12/06/2021 07:57:20 Basic Metabolic [id number] 06:04:20 Test Item Value Reference Range Interpretation Comments Sodium (test code = 133 meq/L 136-145 L 2951-2) Potassium (test code = 4.2 meq/L 3.5-5.1 2823-3) Chloride (test code = 106 meq/L 98-107 5-0) CO2 (test code = 21 meq/L 22-29 L 8-9) BUN (test code = 13 mg/dL 7-21 3094-0) Creatinine (test code 1.13 mg/dL 0.57-1.25 = 2160-0) Glucose (test code = 89 mg/dL 70-105 2345-7) Calcium (test code = 8.8 mg/dL 8.4-10.2 18374-5) EGFR (test code = 85 mL/min/1.73 [place] [address]-3) NOT ACCURATE CREATININE CLEARANCE IN PREDICTING GLOMERULAR FILTRATION RATE . ESTIMATED GFR I S NOT APPLICABLE FOR DIALYSIS PATIENTS. IKER (test code = IKER) Pattern And Chain Maker ID - DB Lab Interpretation Abnormal (test code = 72845-1) [facility] METABOLIC [id number] 06:04:20 Test Item Value Reference Range Interpretation [...] S NOT APPLICABLE FOR DIALYSIS PATIEN TS. Pattern And Chain Maker ID - [id number] (Hemogram only)2021-12-06 05:34:09 Test Item Value Reference Range Interpretation Comments WBC (test code = 6690-2) 6.3 See_Comment [A utomated message] The system [employer] generated this result transmitted ref erence range: 3.5 - 10 .5 K/L. The refe rence range was not u sed to interpret this result as normal/abnor mal. RBC (test code = 789-8) 3.96 See_Comment L [Au tomated message] The system [employer] generated this result transmitted ref erence range: 4.63 - 6 .08 M/L. The refe rence range was not u sed to interpret this result as normal/abnor mal. MCHC (test code = 786-4) 34.3 See_Comment L [A utomated message] The system [employer] generated this result transmitted ref erence range: [...] See_Comment [Aut omated message] 777-3) The system [employer] generated this result transmitted ref erence range: 150 - 45 0 K/CU MM. The referen ce range was not u sed to interpret this result as normal/abnor mal. MPV (test code = 10.6 fL 9.4-12.4 41799-6) nRBC (test code = 413) 0 See_Comment [Aut omated message] The system [employer] generated this result transmitted ref erence range: 0 - 0 /1 00 WBC. The refere nce range was not u sed to interpret this result as normal/abnor mal. Lab Interpretation (test Abnormal code = 30541-7) [facility] (Hemogram only)2021-12-06 05:34:09 Test Item Value Reference Range Interpretation Comments WBC (test code = 6690-2) 6.3 See_Comment [A utomated message] The system [employer] generated this result transmitted ref erence range: 3.5 - 10 .5 K/L. The refe rence range was not u sed to interpret this result as normal/abnor mal. RBC (test code = 789-8) 3.96 See_Comment L [Au tomated message] The system [employer] generated this result transmitted ref erence range: 4.63 - 6 .08 M/L. The refe rence range was not u sed to interpret this result as normal/abnor mal. MCHC (test code = 786-4) 34.3 See_Comment L [A utomated message] The system [employer] generated this result transmitted ref erence range: [...] See_Comment [Aut omated message] 777-3) The system [employer] generated this result transmitted ref erence range: 150 - 45 0 K/CU MM. The referen ce range was not u sed to interpret this result as normal/abnor mal. MPV (test code = 10.6 fL 9.4-12.4 75263-9) nRBC (test code = 413) 0 See_Comment [Aut omated message] The system [employer] generated this result transmitted ref erence range: 0 - 0 /1 00 WBC. The refere nce range was not u sed to interpret this result as normal/abnor mal. Lab Interpretation (test Abnormal code = 65748-8) [facility] [facility] (HEMOGRAM ONLY)2021-12-06 05:34:09 Test Item Value [...] 0-0 (BEAKER) (test code = 413) POC-Glucose [id number] 17:51:28 Test Item Value Reference Range Interpretation Comments POC-Glucose Meter (test 137 mg/dL 70-110 H : TE STED AT [facility] code = 1538) [address] [facility], 770 30: Pattern And Chain Maker/Techni rian ID = [id number] for LaraМария garcia Lab Interpretation (test Abnormal code = 17531-0) [facility] [id number] 17:51:28 Test Item Value Reference Range Interpretation Comments POC-GLUCOSE METER 137 mg/dL 70-110 H : TESTED A T [facility] 67 ([facility]) (test code = [facility], 1538) [address]: Pattern And Chain Maker/Techni rian ID = [id number] for Мария Barroso SARS-CoV2/RT-PCR (Asymptomatic ONLY)2021-12-05 17:31:06 Test Item Value Reference Range Interpretation Comments SARS-COV2/RT-PCR Negative Not Detected, (test code = Negative, See 32906-5) external report for linked test SARS-COV-2 [facility] TERI PERFORMING LAB (test code = 73030-1) IKER (test code = Negative result for this IKER) test determines that SARS-CoV-2 RNA was not [...] of the Act. Fact Sheet for Healthcare Providers:https://www.PhotoSynesi/sites/default/f laureano/product/documents/F act_Sheet_HC_Providers_L ckv_AQEX-ZdD-0.pdf Fact Sheet for Healthcare Patients:https://www.Mobile Iron/sites/default/fi les/product/documents/Fa ct_Sheet_Patients_Lyra_S ARS-CoV-2.pdf Performing Laboratory:[facility] [place] [address] [facility])2021-12-05 17:31:06 Test Item Value Reference Range Interpretation Comments SARS-COV2/RT-PCR (test Negative Not Detected, Negative, code = 2421041) See external report for linked test SARS-COV-[address] [facility] TERI (test code = 5647279) Negative result for this test determines that [...] of the Act.Fact Sheet for Healthcare Prov iders:https://www.First Wave/sites/default/files/product/documents/Fact_Sheet_HC _Kffbujwbq_Xxua_WHPS-DgX-1.pdfFact Sheet for Healthcare Patients:https://www.First Wave/sites/default/files/product/docume nts/Xlwr_Gzdit_Cfequeys_Jftc_CNTT-TyG-0.pdfPerforming Laboratory:[facility], [place] [address]LB, [id number] 10:17:00Unlisted Reason for Exam - Click Yes and Enter Reason Below->NoIs this for enterography?->NoWill this procedure require oral contrast?->No [facility] : 1975 Sex: [...] MDReport Verified Date/Time: 12/05/2021 10:17:33 Reading Location: [facility] [address] C013X OrthoConsult Reading Room Comprehensive metabolic [id number] 08:12:08 Test Item Value Reference Range Interpretation Comments Protein, Total (test 7.8 See_Comment [Autom ated code = 2885-2) message] The system which generated this result transmit joann reference range : 6.0 - 8.3 gm/dL . The reference range was not u sed to interpret th is result as normal/abnormal . Albumin (test code = 4.2 g/dL 3.5-5.0 29848-3) Alkaline Phosphatase 94 U/L 40-150 (test code = 6768-6) Total Bilirubin (test 1.0 mg/dL 0.2-1.2 code = 1974-2) Sodium (test code = 133 meq/L 136-145 [...] Calcium (test code = 9.4 mg/dL 8.4-10.2 04185-1) AST (test code = 15 U/L 5-34 1920-8) ALT (test code = 14 U/L 6-55 1742-6) EGFR (test code = 79 mL/min/1.73 [place] [address]-1) NOT ACCURATE CREATININE CLEARANCE IN PREDICTING GLOMERULAR FILTRATION RATE . ESTIMATED GFR I S NOT APPLICABLE FOR DIALYSIS PATIEN TS. IKER (test code = IKER) Pattern And Chain Maker ID - NEIL M Lab Interpretation Abnormal (test code = 00948-8) [facility] 08:12:08 Test Item Value Reference Range Interpretation Comments Lipase (test code = 4 U/L 8-78 L 3040-3) IKER (test code = IKER) Pattern And Chain Maker ID - NEIL M Lab Interpretation (test Abnormal code = 53883-9) [facility] HospitalCOMPREHENSIVE METABOLIC [id number] 08:12:08 Test Item Value Reference Range Interpretation [...] S NOT APPLICABLE FOR DIALYSIS PATIEN TS. Pattern And Chain Maker ID - NEIL [id number] 08:12:08 Test Item Value Reference Range Interpretation Comments LIPASE (BEAKER) (test code = 749) 4 U/L 8-78 L Pattern And Chain Maker ID - NEIL MCBC with platelet count + automated [id number] 07:54:26 Test Item Value Reference Range Interpretation Comments WBC (test code = 6690-2) 7.2 See_Comment [A utomated message] The system [employer] generated this result transmitted ref erence range: 3.5 - 10 .5 K/L. The refe rence range was not u sed to interpret this result as normal/abnor mal. RBC (test code = 789-8) 4.53 See_Comment L [Au tomated message] The system [employer] generated this result transmitted ref erence range: 4.63 - 6 .08 M/L. The refe rence range was not u sed to interpret this result as normal/abnor mal. MCHC (test code = 786-4) 32.0 See_Comment L [A utomated message] The system [employer] generated this result transmitted ref erence range: [...] See_Comment [Aut omated message] 777-3) The system [employer] generated this result transmitted ref erence range: 150 - 45 0 K/CU MM. The referen ce range was not u sed to interpret this result as normal/abnor mal. MPV (test code = 10.4 fL 9.4-12.4 45965-5) nRBC (test code = 413) 0 See_Comment [Aut omated message] The system [employer] generated this result transmitted ref erence range: [...] See_Comment [Aut omated message] 670) The system [employer] generated this result transmitted ref erence range: 1.78 - 5 .38 K/L. The refe rence range was not u sed to interpret this result as normal/abnor mal. # Lymphs (test code = 1.62 See_Comment [Auto mated message] 414) The system [employer] generated this result transmitted ref erence range: 1.32 - 3 .57 K/L. The refe rence range was not u sed to interpret this result as normal/abnor mal. # Monos (test code = 0.83 See_Comment H [Autom ated message] 415) The system [employer] generated this result transmitted ref erence range: 0.30 - 0 .82 K/L. The refe rence range was not u sed to interpret this result as normal/abnor mal. # Eos (test code = 416) 0.14 See_Comment [Au tomated message] The system [employer] generated this result transmitted ref erence range: 0.04 - 0 .54 K/L. The refe rence range was not u sed to interpret this result as normal/abnor mal. # Baso (test code = 417) 0.05 See_Comment [A utomated message] The system [employer] generated this result transmitted ref erence range: 0.01 - 0 .08 K/L. The refe rence range was not u sed to interpret this result as normal/abnor mal. Immature 0 % 0-1 Granulocytes-Relative (test code = 2801) Lab Interpretation (test Abnormal code = 94966-9) [facility] W/PLT COUNT & AUTO [id number] 07:54:26 Test Item Value Reference Range Interpretation [...] code = 2801) RAD, ABDOMEN/KUB, 1 VIEW [id number] 14:09:00Reason for exam:->assess for improvement in bowel distension and stool burden [facility] : 1975 Sex: MFINAL REPORT Exam: RAD, [...] MDReport Verified Date/Time: 11/30/2021 14:09:22 Reading Location: [facility] Radiology Reading Room BASI METABOLIC [id number] 09:26:15 Test Item Value Reference Range Interpretation [...] S NOT APPLICABLE FOR DIALYSIS PATIEN TS. Pattern And Chain Maker ID - DBBASIC METABOLIC [id number] 06:08:04 Test Item Value Reference Range Interpretation [...] S NOT APPLICABLE FOR DIALYSIS PATIEN TS. Pattern And Chain Maker ID - BSCBC W/PLT COUNT & AUTO [id number] 05:40:30 Test Item Value Reference Range Interpretation [...] PERCENT (BEAKER) (test code = 2801) SARS-COV2/RT-PCR ([facility])2021-11-25 10:17:30 Test Item Value Reference Range Interpretation Comments SARS-COV2/RT-PCR (test Negative Not Detected, Negative, code = 1014589) See external report for linked test SARS-COV-2 PERFORMING LAB [facility] (test code = 0260731) Negative result for this test determines that [...] of the Act.Fact Sheet for Healthcare Prov iders:https://www.First Wave/sites/default/files/product/documents/Fact_Sheet_HC _Zrxykzckp_Pctk_PNIM-IzO-4.pdfFact Sheet for Healthcare Patients:https://www.First Wave/sites/default/files/product/docume nts/Hnla_Csjvy_Stexahml_Rnth_QUOE-FpE-3.pdfPerforming Laboratory:[facility], [place] [address]TL, [id number] 03:54:00Unlisted Reason for Exam - Click Yes and Enter Reason Below->NoIs this for enterography?->NoWill this procedure require oral contrast?->No [facility] : 1975 Sex: [...] Vizcarra MDRepor t Verified Date/Time: 11/25/2021 03:54:25 [id number] 02:50:36 Test Item Value Reference Range Interpretation Comments LIPASE (BEAKER) (test code = 749) < U/L 8-78 L Pattern And Chain Maker ID - BSOperator ID - NEIL MHigh Sens Trop I ([facility]/Luisa Only) 2021-11-25 01:59:11 Test Item Value Reference Range Interpretation Comments Troponin I HS (test <4 See_Comment [Automa joann code = 68033-7) message] The system which generated this result transmitted reference range : <=35 pg/ml. The reference range was not used to interpret this result as normal/abnormal . IKER (test code = Pattern And Chain Maker ID - IKER) BSThe FARM FACILITY MANAGER STAT High Sensitivity Troponin-I results should be used in conjunction with other diagnostic information such as ECG, clinical observations and information, and patient symptoms to aid in the diagnosis of [place]. Lab Interpretation Normal (test code = 94221-6) [facility] ([facility]/Luisa Only)2021-11-25 01:59:11 Test Item Value Reference Range Interpretation Comments Troponin I HS (test <4 See_Comment [Automa joann code = 40660-9) message] The system which generated this result transmitted reference range : <=35 pg/ml. The reference range was not used to interpret this result as normal/abnormal . IKER (test code = Pattern And Chain Maker ID - IKER) BSThe FARM FACILITY MANAGER STAT High Sensitivity Troponin-I results should be used in conjunction with other diagnostic information such as ECG, clinical observations and information, and patient symptoms to aid in the diagnosis of [place]. Lab Interpretation Normal (test code = 26194-7) [facility] ([facility]Luisa [facility]2021-11-25 01:59:11 Test Item Value Reference Range Interpretation Comments Troponin I HS (test <4 See_Comment [Automa joann code = 20613-8) message] The system which generated this result transmitted reference range : <=35 pg/ml. The reference range was not used to interpret this result as normal/abnormal . IKER (test code = Pattern And Chain Maker ID - IKER) BSThe FARM FACILITY MANAGER STAT High Sensitivity Troponin-I results should be used in conjunction with other diagnostic information such as ECG, clinical observations and information, and patient symptoms to aid in the diagnosis of [place]. Lab Interpretation Normal (test code = 87375-3) [facility] ([facility]/Luisa Only)2021-11-25 01:59:11 Test Item Value Reference Range Interpretation Comments Troponin I HS (test <4 See_Comment [Automa joann code = 19716-3) message] The system which generated this result transmitted reference range : <=35 pg/ml. The reference range was not used to interpret this result as normal/abnormal . IKER (test code = Pattern And Chain Maker ID - IKER) BSThe FARM FACILITY MANAGER STAT High Sensitivity Troponin-I results should be used in conjunction with other diagnostic information such as ECG, clinical observations and information, and patient symptoms to aid in the diagnosis of [place]. Lab Interpretation Normal (test code = 56304-6) [facility] ([facility]Luisa Only)2021-11-25 01:59:11 Test Item Value Reference Range Interpretation Comments Troponin I HS (test <4 See_Comment [Automa joann code = 06272-0) message] The system which generated this result transmitted reference range : <=35 pg/ml. The reference range was not used to interpret this result as normal/abnormal . IKER (test code = Pattern And Chain Maker ID - IKER) BSThe FARM FACILITY MANAGER STAT High Sensitivity Troponin-I results should be used in conjunction with other diagnostic information such as ECG, clinical observations and information, and patient symptoms to aid in the diagnosis of [place]. Lab Interpretation Normal (test code = 56233-1) [facility] HospitalHIGH SENSITIVITY TROPONIN [id number] 01:59:11 Test Item Value Reference Range Interpretation Comments HIGH SENSITIVITY < pg/ml See_Comment [Automated message] TROPONIN I (test code = The system which 8113661) generated this result transmitted ref erence range: <=35. Th e reference range was not used to interpr et this result as normal/abnormal . Pattern And Chain Maker ID - BSThe FARM FACILITY MANAGER STAT High Sensitivity Troponin-I results should be used in conjunctionwith other diagnostic information such as ECG, clinical observations and information, and patient symptoms to aid in the diagnosis of [place].[id number] 01:52:12 Test Item Value Reference Range Interpretation Comments Magnesium (test code = 1.7 mg/dL 1.6-2.6 Speci men 05252-5) slightly hemolyzed IKER (test code = IKER) Pattern And Chain Maker ID - BS Lab Interpretation Normal (test code = 96262-6) [facility] HospitalMAGNESIUM2022-02-16 01:52:12 Test Item Value Reference Range Interpretation Comments MAGNESIUM (BEAKER) 1.7 mg/dL 1.6-2.6 Specimen slightly (test code = 627) hemolyzed Pattern And Chain Maker ID - BSCOMPREHENSIVE METABOLIC [id number] 01:52:12 Test Item Value Reference Range Interpretation [...] S NOT APPLICABLE FOR DIALYSIS PATIEN TS. Pattern And Chain Maker ID - BSCBC W/PLT COUNT & AUTO [id number] 01:21:26 Test Item Value Reference Range Interpretation [...] PERCENT (BEAKER) (test code = 2801) Urine [id number] 12:15:43 Test Item Value Reference Range Interpretation Comments Result (test code = 6463-4) No growth [facility] [id number] 12:15:43 Test Item Value Reference Range Interpretation Comments Result (test code = 6463-4) No growth [facility] CenterUR[facility] [id number] 12:15:43 Test Item Value Reference Range Interpretation Comments CULTURE (BEAKER) (test code = 1095) No growth SARS-COV2/RT-PCR ([facility])2021-11-14 08:14:56 Test Item Value Reference Range Interpretation Comments SARS-COV2/RT-PCR (test Negative Not Detected, Negative, code = 4609281) See external report for linked test SARS-COV-[address] [facility] TERI (test code = 9866831) Negative result for this test determines that [...] of the Act.Fact Sheet for Healthcare Prov iders:https://www.Hello Universe.com/sites/default/files/product/documents/Fact_Sheet_HC _Uxssqzrje_Ehpb_PKZK-VrA-8.pdfFact Sheet for Healthcare Patients:https://www.Hello Universe.com/sites/default/files/product/docume nts/Yabr_Dogng_Ezagivth_Dnvr_LNZO-EtE-7.pdfPerforming Laboratory:[place] [address], [place] [address]IA, [id number] 00:42:00Unlisted Reason for Exam - Click Yes and Enter Reason Below->NoIs this for enterography?->NoWill this procedure require oral contrast?->No [facility] : 1975 Sex: MFINAL REPORT CLINICAL HISTORY: Bowel obstruction or high-grade suspected, history of cystic fibrosis FINDINGS: Multiple axial images of the abdomen and pelvis were performed after the uncomplicated administration of IV contrast. Oral contrast was not given. This exam was performedaccording to our departmental dose-optimization program, which includes automated exposure control, adjustment of the mA and/or kV according to patient size and/or use of the iterative reconstruction technique. Comparison:08/01/2021 Lower chest: Clear lungs. No pleural effusion or pneumothorax. Visualized cardiac contours normal. Liver: No significant findings. Gallbladder and biliary tree: No significant findings. Spleen: No significant findings. Adrenal Glands: No significant findings. Kidneys andureters: Bilateral nonobstructing stones in the inferior kidneys, measuring up to 4 mm. No ureteral stone or CT evidence of obstructive uropathy. Stomach and Duodenum: No significant findings. Pancreas: Partial fatty involution of the pancreas. Bowel: Previous partial right hemicolectomy and ileocolostomy. There is a significant volume of mixed density stool throughout normal caliber large intestine,along with a significant volume of gas. There are several fluid distended small bowel loops. No bowel obstruction or pneumatosis intestinalis. Bladder: No significant findings. Major vascular structures: No significant findings. Reproductive organs: No significant findings. Other: No free air, fluid or adenopathy Skeleton: No acute bony abnormality. IMPRESSION: Nonspecific findings which could reflect constipation or a high output state. There is no evidence of bowel obstruction. Bilateral nonobstructing kidney stones. Signed: Ronen Vizcarra MDReport Verified Date/Time: 11/14/2021 00:42:44 REHENSIVE METABOLIC [id number] 23:34:07 Test Item Value Reference Range Interpretation [...] S NOT APPLICABLE FOR DIALYSIS PATIEN TS. Pattern And Chain Maker ID - [id number] 23:34:07 Test Item Value Reference Range Interpretation Comments LIPASE (BEAKER) (test code = 749) 5 U/L 8-78 L Pattern And Chain Maker ID - [id number] 23:34:06 Test Item Value Reference Range Interpretation Comments MAGNESIUM (BEAKER) 1.5 mg/dL 1.6-2.6 L Specimen slightly (test code = 627) hemolyzed Pattern And Chain Maker ID - DBUrinalysis w/Microscopic + Reflex to [id number] 23:00:38 Test Item Value Reference Range Interpretation Comments Color, UA (test code Yellow = 5778-6) Clarity, UA (test Clear code = 5767-9) Specific Radisson, UA 1.024 1.001-1.035 (test code = 5811-5) pH, UA (test code = 6.0 5.0-8.0 5803-2) Protein, UA (test Negative Negative code = 99291-3) Glucose, UA (test Negative Negative code = 365) Ketones, UA (test Negative Negative code = 2514-8) Bilirubin, UA (test Negative Negative code = 78962-6) Blood, UA (test code Negative Negative = 44199-8) Nitrite, UA (test Negative Negative code = 5802-4) Leukocytes, UA (test Negative Negative code = 5799-2) Urobilinogen, UA 2.0 mg/dL 0.2-1.0 H (test code = 19253-0) RBC, UA (test code = <1 See_Comment [Autom ated 56448-1) message] The system which generated this result [...] Bacteria, UA (test None Seen code = 10411-7) Crystals, Urine (test None Seen code = 09437-1) Amorphous Crystals Occasional (test code = 24836-6) Specimen Source (test code = 2795) IKER (test code = IKER) Pattern And Chain Maker ID - [auto]Pattern And Chain Maker ID - tech Lab Interpretation Abnormal (test code = 14516-9) [facility] HospitalURINALYSIS W/ REFLEX URINE [id number] 23:00:38 Test Item Value Reference Range Interpretation [...] = 1584) SOURCE(BEAKER) (test code = 2795) Pattern And Chain Maker ID - [auto]Pattern And Chain Maker ID - techRAD, CHEST, 1 VIEW, NON [id number] 22:26:00Reason for exam:->ABDOMINAL PAINShould this be performed at the bedside?->[facility] : 1975 Sex: MFINAL REPORT Chest, 1 view. History: Abdominal pain Comparison: Plain radiograph the chest dated 01/06/2021. Findings: The cardiomediastinal silhouette and pulmonary vasculature arewithin normal limits for a portable exam. The lungs are clear without evidence of consolidation or effusion. The soft tissues and osseous structures are intact. IMPRESSION: No acute cardiopulmonary abno rmality. Signed: Sofiya Ding MDReport Verified Date/Time: 11/13/2021 22:26:25 Electronicallysigned by: SOFIYA DING MD on 11/13/2021 10:26 PMRAD, ABDOMEN/KUB, 1 VIEW [id number] 22:25:00Reason for exam:- >ABDOMINAL PAINShould this be performed at the bedside?->Yes [facility] 1975 Sex: [...] 11/13/2021 22:25:42 CBC W/PLT COUNT & AUTO [id number] 22:21:01 Test Item Value Reference Range Interpretation [...] 0-1 PERCENT (BEAKER) (test code = 2801) [id number] 06:27:23 Test Item Value Reference Range Interpretation Comments Phosphorus (test code = 3.2 mg/dL 2.3-4.7 2777-1) IKER (test code = IKER) Pattern And Chain Maker HODA Robison Lab Interpretation (test Normal code = 43328-8) [facility] HospitalPHOSPHORUS2021-10-28 06:27:23 Test Item Value Reference Range Interpretation Comments PHOSPHORUS (BEAKER) (test code = 3.2 mg/dL 2.3-4.7 604) Pattern And Chain Maker HODA TREJO MBASIC METABOLIC [id number] 06:27:22 Test Item Value Reference Range Interpretation [...] S NOT APPLICABLE FOR DIALYSIS PATIEN TS. Pattern And Chain Maker HODA TREJO [id number] 06:27:22 Test Item Value Reference Range Interpretation Comments MAGNESIUM (BEAKER) (test code = 1.7 mg/dL 1.6-2.6 627) Pattern And Chain Maker ID - NEIL SOLORZANO, ABDOMEN/KUB, 1 VIEW [id number] 12:37:00Reason for exam:->Admitted for DIOSShould this be performed at the bedside?->Yes [facility] : 1975 Sex: MFINAL REPORT RAD, ABDOMEN/KUB, 1 VIEW AP CLINICAL INDICATION: Admitted for DIOSCOMPARISON: 04/14/2021 TECHNIQUE: Single, frontal radiograph of the abdomen. FINDINGS: The bowel gas pattern demonstrates marked gaseous distention of the small bowel, and, to a lesser degree, the large bowel. Obstruction cannot be excluded on current exam. Alternatively, this may represent ileus. Evalua tion for free air is limited by portable supine technique. Within these limitations, no free air is identified. Signed: Esperanza Duque MDReport Verified Date/Time: 08/05/2021 12:37:21 Reading Location: [facility] Radiology Reading Room BASIC METABOLIC [id number] 12:20:42 Test Item Value Reference Range Interpretation [...] S NOT APPLICABLE FOR DIALYSIS PATIEN TS. Pattern And Chain Maker ID - NEIL [id number] 08:22:00 Test Item Value Reference Range Interpretation Comments MAGNESIUM (BEAKER) (test code = 1.5 mg/dL 1.6-2.6 L 627) Pattern And Chain Maker ID - NEIL [id number] 08:22:00 Test Item Value Reference Range Interpretation Comments PHOSPHORUS (BEAKER) (test code = 1.6 mg/dL 2.3-4.7 L 604) Pattern And Chain Maker ID - NEIL MBASIC METABOLIC [id number] 11:56:45 Test Item Value Reference Range Interpretation [...] S NOT APPLICABLE FOR DIALYSIS PATIEN TS. Pattern And Chain Maker ID - ANETA Decker ID - ANETA [id number] 10:34:21 Test Item Value Reference Range Interpretation Comments PHOSPHORUS (BEAKER) (test code = 2.4 mg/dL 2.3-4.7 604) Pattern And Chain Maker ID Onofre CORNELL [id number] 10:34:20 Test Item Value Reference Range Interpretation Comments MAGNESIUM (BEAKER) (test code = 1.6 mg/dL 1.6-2.6 627) Pattern And Chain Maker ID Onofre CORNELL [id number] 11:42:47 Test Item Value Reference Range Interpretation Comments PHOSPHORUS (BEAKER) 2.8 mg/dL 2.3-4.7 Specimen slightly (test code = 604) hemolyzed Pattern And Chain Maker ID Onofre CORNELL [id number] 05:42:53 Test Item Value Reference Range Interpretation Comments MAGNESIUM (BEAKER) 1.4 mg/dL 1.6-2.6 L Specimen slightly (test code = 627) hemolyzed Pattern And Chain Maker ID Onofre CORNELL LBASIC METABOLIC [id number] 05:42:53 Test Item Value Reference Range Interpretation [...] S NOT APPLICABLE FOR DIALYSIS PATIEN TS. Pattern And Chain Maker ID - ANETA LSARS-COV2/RT-PCR ([facility])2021-08-02 00:15:55 Test Item Value Reference Range Interpretation Comments SARS-COV2/RT-PCR Negative Negative The SARS-Co V-2 target (test code = nucleic acids a re not 1025260) detected in thi s specimen. Negative result [...] revoked sooner. Fact Sheet for Healthcare Providers: https://www.Payment plugin.co m/Documents/Xpert%20Xpress%20SARS%20CoV-2/Fact%20Sheets/3023802%36YOXI-IWI-2%20 HEALTHCARE%20PROVIDERS%20FACT%20SHEET.pdf Fact Sheet for Healthcare Patients: https://www.NitroSell/Documents/Xpert%20Xp ress%20SARS%20CoV-2/Fact%20Sheets/3023801%06AHDQ-DIA-0%20PATIENT%20FACT%20SHEET .pdfCT, [id number] 21:01:00Unlisted Reason for Exam - Click Yes and Enter Reason Below->NoWill this procedure require oral contrast?->No [facility] 1975 Sex: [...] Diffuse peripancreatic fatty atrophy. Signed: Magno Carvajal [facility] Verified Date/Time: 08/01/2021 21:01:39 REHENSIVE METABOLIC [id number] 20:31:25 Test Item Value Reference Range Interpretation [...] S NOT APPLICABLE FOR DIALYSIS PATIEN TS. Pattern And Chain Maker ID - DBOperator ID - NEIL [id number] 19:49:58 Test Item Value Reference Range Interpretation Comments LIPASE (BEAKER) (test code = 749) 4 U/L 8-78 L Pattern And Chain Maker ID - DBCBC W/PLT COUNT & AUTO [id number] 19:24:16 Test Item Value Reference Range Interpretation [...] code = 2801) RAD, ABDOMEN/KUB, 1 VIEW [id number] 11:19:00Reason for exam:->Abdominal pain distentionCHI [facility] : 1975 Sex: [...] No acute osseous abnormality. Signed: Tristen Reagan [facility] Verified Date/Time: 04/15/2021 11:19:14 Reading Location: [facility] [address] C013X Ortho Consult Reading Room BASIC METABOLIC [id number] 05:54:00 Test Item Value Reference Range Interpretation [...] S NOT APPLICABLE FOR DIALYSIS PATIEN TS. Pattern And Chain Maker ID - CHAMP [id number] 05:53:00 Test Item Value Reference Range Interpretation Comments MAGNESIUM (BEAKER) (test code = 1.5 mg/dL 1.6-2.6 L 627) Pattern And Chain Maker ID - CHAMP [id number] 05:53:00 Test Item Value Reference Range Interpretation Comments PHOSPHORUS (BEAKER) (test code = 2.3 mg/dL 2.3-4.7 604) Pattern And Chain Maker ID - CHAMP WCBC W/PLT COUNT & AUTO [id number] 04:46:00 Test Item Value Reference Range Interpretation [...] 0-1 PERCENT (BEAKER) (test code = 2801) [id number] 05:08:00 Test Item Value Reference Range Interpretation Comments MAGNESIUM (BEAKER) (test code = 1.5 mg/dL 1.6-2.6 L 627) Pattern And Chain Maker ID - NEIL [id number] 05:08:00 Test Item Value Reference Range Interpretation Comments PHOSPHORUS (BEAKER) (test code = 2.1 mg/dL 2.3-4.7 L 604) Pattern And Chain Maker ID - NEIL MSARS-COV2/RT-PCR ([facility])2021-04-13 09:33:00 Test Item Value Reference Range Interpretation Comments SARS-COV2/RT-PCR (test Negative Not Detected, Negative, code = 0843959) See external report for linked test SARS-COV-[address] [facility] (test code = 3418469) Negative result for this test determines that [...] of the Act.Fact Sheet for Healthcare Prov iders:https://www.Hello Universe.Plyce/sites/default/files/product/documents/Fact_Sheet_HC _Hgnpuwwin_Pega_MHOH-BoM-5.pdfFact Sheet for Healthcare Patients:https://www.Hello Universe.Plyce/sites/default/files/product/docume nts/Tcdn_Iskjp_Asksxpis_Ufln_NDUX-GaQ-0.pdfPerforming Laboratory:[facility], [place] [address]HF, [id number] 00:22:00Unlisted Reason for Exam - Click Yes and Enter Reason Below->NoWill this procedure require oral contrast?->No [facility] : 1975 Sex: [...] lower lobe. No pleural effusion. The heart isnormal in size. No pericardial effusion. Liver: No parenchymal abnormality.Gallbladder and biliary tree: No ductal dilation or stones.Pancreas: Fatty replaced.Spleen: No acute findingsAdrenal Glands: No acute findings.Kidneys and ureters: Bilateral punctate nonobstructing nephrolithiasis.Bladder [...] colon, rectum and the ileocolic anastomosis. No bowelpneumatosis. Appendix: Not identified. Major vascular structures: Normal [...] Date/Time: 04/13/2021 00:22:00 URINALYSIS W/ REFLEX URINE [id number] 00:21:00 Test Item Value Reference Range Interpretation [...] = 518) SOURCE(BEAKER) (test code = 2795) Pattern And Chain Maker ID - [auto]Pattern And Chain Maker ID - techHIGH SENSITIVITY TROPONIN [id number] 22:05:00 Test Item Value Reference Range Interpretation Comments HIGH SENSITIVITY 5 pg/ml See_Comment [Automated message] TROPONIN I (test code = The system which 8645603) generated this result transmitted ref erence range: <=35. Th e reference range was not used to interpr et this result as normal/abnormal . Pattern And Chain Maker ID - DBThe FARM FACILITY MANAGER STAT High Sensitivity Troponin-I results should be used in conjunctionwith other diagnostic information such as ECG, clinical observations and information, and patient symptoms to aid in the diagnosis of [place].[id number] 21:59:00 Test Item Value Reference Range Interpretation Comments LIPASE (BEAKER) (test code = 749) < U/L 8-78 L Pattern And Chain Maker ID - DBCOMPREHENSIVE METABOLIC [id number] 21:57:00 Test Item Value Reference Range Interpretation [...] S NOT APPLICABLE FOR DIALYSIS PATIEN TS. Pattern And Chain Maker ID - DBLACTIC ACID, [id number] 21:42:00 Test Item Value Reference Range Interpretation Comments LACTATE BLOOD VENOUS (2) (BEAKER) 0.59 mmol/L 0.50-2.20 (test code = 2872) Pattern And Chain Maker ID - DBBLOOD GAS, [id number] 21:31:00 Test Item Value Reference Range Interpretation [...] 1819) 21.0 CBC W/PLT COUNT & AUTO [id number] 21:31:00 Test Item Value Reference Range Interpretation [...] (BEAKER) (test code = 2801) CF RESPIRATORY [id number] 12:40:00 Test Item Value Reference Interpretation Comments [...] = 994) seen RAD, ABDOMEN/KUB, 1 VIEW [id number] 07:28:00Reason for exam:->constipation [facility] : 1975 Sex: [...] Reagan Verified Date/Time: 02/24/2021 07:28:09 Reading Location: [facility] Radiology Reading Room RAD, ABDOMEN/KUB, 1 VIEW [id number] 10:44:00Reason for exam:->abdominal pain, [facility] : 1975 Sex: [...] MDReport Verified Date/Time: 02/21/2021 10:44:09 Reading Location: [address] Reading Room SARS-COV2/RT-PCR ([facility])2021-02-20 12:43:00 Test Item Value Reference Range Interpretation Comments SARS-COV2/RT-PCR (test Negative Not Detected, Negative, code = 6064301) See external report for linked test SARS-COV-2 PERFORMING LAB [facility] (test code = 9452288) Negative result for this test determines that [...] of the Act.Fact Sheet for Healthcare Prov iders:https://www.First Wave/sites/default/files/product/documents/Fact_Sheet_HC _Ajkwcpzug_Dokz_QSEL-HlL-5.pdfFact Sheet for Healthcare Patients:https://www.First Wave/sites/default/files/product/docume nts/Adfv_Fefco_Fuzszxwa_Fyfn_UEOU-OkF-2.pdfPerforming Laboratory:[address], [place] [address]GGYIM METABOLIC PANEL 2021-02-20 04:46:00 Test Item Value [...] S NOT APPLICABLE FOR DIALYSIS PATIEN TS. Pattern And Chain Maker ID - EDASICBC W/PLT COUNT & AUTO [id number] 04:23:00 Test Item Value Reference Range Interpretation [...] PERCENT (BEAKER) (test code = 2801) CT, [id number] 21:22:00Unlisted Reason for Exam - Click Yes and Enter Reason Below->YesUnlisted Reason for Exam->abd pain, bloating, constipation. hx of SBOWill this procedure require oral contrast?->No [facility] : 1975 Sex: MFINAL REPORT EXAM: CT [...] Magno Carvajal MDReport Verified Date/Time: 02/19/2021 21:22:04 [id number] 18:22:00 Test Item Value Reference Range Interpretation Comments LIPASE (BEAKER) (test code = 749) < U/L 8-78 L Pattern And Chain Maker ID - DBBASIC METABOLIC [id number] 18:21:00 Test Item Value Reference Range Interpretation [...] S NOT APPLICABLE FOR DIALYSIS PATIEN TS. Pattern And Chain Maker ID - DBHEPATIC FUNCTION [id number] 18:21:00 Test Item Value Reference Range Interpretation [...] Specimen slightly (test code = 347) hemolyzed Pattern And Chain Maker ID - DBLACTIC ACID, [id number] 18:05:00 Test Item Value Reference Range Interpretation Comments LACTATE BLOOD VENOUS 1.04 mmol/L 0.50-2.20 Specime n slightly (2) (BEAKER) (test hemolyzed code = 2872) Pattern And Chain Maker ID - DBCBC W/PLT COUNT & AUTO [id number] 17:58:00 Test Item Value Reference Range Interpretation [...] code = 2801) RAD, ABDOMEN/KUB, 1 VIEW [id number] 17:30:00Reason for exam:->abd pain, bloated, hx of SBO [facility] : 1975 Sex: [...] Verified Date/Time: 02/19/2021 17:30:23 FUNGUS CULTURE + [id number] 17:04:00 Test Item Value Reference Range Interpretation Comments CULTURE (BEAKER) A <1+ Padilla albicans (test code = 1095) FUNGUS SMEAR No fungi seen (BEAKER) (test code = 1406) CF RESPIRATORY [id number] 10:47:00 Test Item Value Reference Range Interpretation [...] 3+ Normal respiratory maria del carmen presentSPIN/CONCENTRATION [id number] 07:59:00 Test Item Value Reference Range Interpretation Comments CONCENTRATION CHARGED (BEAKER) (test Done code = 2657) RAD, CHEST, 2 [id number] 14:47:00Reason for Exam:->Cystic Fibrosis [facility] : 1975 Sex: [...] IMPRESSION: No acute thoracic abnormality. 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, Vitamin D deficiency [facility] JOSUE : 1975 Sex: MFINAL REPORT Exam: Bone [...] for bone mineral density as provided by boiling house oiler is 0.023 g/cm2 for lumbar spine and [...] MDReport Verified Date/Time: 01/06/2021 14:10:03 Reading Location: [facility] Reading Room [address] [place] [address] URINALYSIS W/ REFLEX URINE [id number] 11:26:00 Test Item Value Reference Range Interpretation [...] /HPF 520) SOURCE(BEAKER) (test code = 2795) Pattern And Chain Maker ID - [auto]Pattern And Chain Maker ID - techRAD, ABDOMEN/KUB, 1 VIEW [id number] 10:40:00Reason for exam:->constipation [facility] 1975 Sex: MFINAL REPORT RAD, ABDOMEN/KUB, 1 VIEW AP CLINICAL INDICATION: constipation COMPARISON: October 17, 2020 TECHNIQUE: Single, frontal radiograph of the abdomen. FINDINGS: The bowel gas pattern is nonspecific, but nonobstructive. No radiographic evidence of constipation. Colon is predominantly air-filled. The regional skeleton is intact. IMPRESSION: Nonspecific, nonobstructive bowel gas pattern. Signed: Esperanza Duqueeport Verified Date/Time: 10/28/2020 10:40:07 Reading Location:[facility] Radiology Reading Room COMPREHENSIVE METABOLIC [id number] 12:47:00 Test Item Value Reference Range Interpretation [...] S NOT APPLICABLE FOR DIALYSIS PATIEN TS. Pattern And Chain Maker ID Onofre HARLEY [id number] 07:34:00 Test Item Value Reference Range Interpretation Comments BLOOD UREA NITROGEN (BEAKER) (test 16 mg/dL 7-21 code = 354) Pattern And Chain Maker ID Onofre QUESADAHANS [id number] 07:34:00 Test Item Value Reference Range Interpretation Comments CREATININE (BEAKER) 1.08 mg/dL 0.57-1.25 (test code = 358) EGFR (BEAKER) (test 90 mL/min/1.73 ESTIMA JOANN GFR IS code = 1092) sq m NOT ACCURATE CREATININE CLEARANCE IN PREDICTING GLOMERULAR FILTRATION RATE . ESTIMATED GFR I S NOT APPLICABLE FOR DIALYSIS PATIEN TS. Pattern And Chain Maker ID Onofre CORNELL LPOCT-GLUCOSE [id number] 13:03:00 Test Item Value Reference Range Interpretation Comments POC-GLUCOSE METER 93 mg/dL 70-110 : TESTED A T BSC 6720 (BEAKER) (test code = JUSTINE [place], 1538) [address]: Pattern And Chain Maker/Techni rian ID = [id number] for BJORN SANCHES [id number] 06:22:00 Test Item Value Reference Range Interpretation Comments BLOOD UREA NITROGEN (BEAKER) (test 20 mg/dL 7-21 code = 354) Pattern And Chain Maker ID Onofre CORNELL [id number] 06:22:00 Test Item Value Reference Range Interpretation Comments CREATININE (BEAKER) 1.12 mg/dL 0.57-1.25 (test code = 358) EGFR (BEAKER) (test 86 mL/min/1.73 ESTIMA JOANN GFR IS code = 1092) sq m NOT ACCURATE CREATININE CLEARANCE IN PREDICTING GLOMERULAR FILTRATION RATE . ESTIMATED GFR I S NOT APPLICABLE FOR DIALYSIS PATIEN TS. Pattern And Chain Maker ID Onofre CORNELL LHEMOGLOBIN [id number] 21:14:00 Test Item Value Reference Range Interpretation Comments HEMOGLOBIN A1C (BEAKER) (test code = 5.6 % 4.3-6.1 368) FL, SMALL BOWEL [id number] 19:16:00Reason for exam:->Rule out ileus or small bowel stricture [facility] : 1975 Sex: MFINAL REPORT FL, SMALL BOWEL ONLY CLINICAL HISTORY: Rule out ileus or small bowel stricture COMPARISON: Same day CT abdomen and pelvis. TECHNIQUE: A staff services manager abdominal radiograph is acquired. The small bowel is evaluated with single contrast technique after oral ingestion of Gastrografin contrast using AP abdominal radiographs. Abdominal radiographs are acquired at 0, 20, 40, 60, and 90 minutes. FINDINGS: The staff services manager radiograph demonstrates multiple dilated air- filled loops [...] Reagan Verified Date/Time: 10/25/2020 19:16:52 Reading Location: [facility] C013Y CT Body Reading Room Electronically signed by: Mikey ZUNIGA 10/25/2020 07:16 PMCT, [id number] 09:52:00Reason for exam:->abd pain, constipation, hx of obstuctionWhat is the patient's sedation requirement?->No SedationHECTOR [facility] : 1975 Sex: [...] Reagan Verified Date/Time: 10/25/2020 09:52:20 Reading Location: [facility] C013Y CT Body Reading Room [id number] 08:43:00 Test Item Value Reference Range Interpretation Comments LIPASE (BEAKER) (test code = 749) < U/L 8-78 L Pattern And Chain Maker ID - NEIL MTROPONIN [id number] 08:32:00 Test Item Value Reference Range Interpretation [...] failure, acidosis, acute neurological disease, and persistent tachyarrhythmia.Pattern And Chain Maker ID - NEIL MBASIC METABOLIC [id number] 08:24:00 Test Item Value Reference Range Interpretation [...] S NOT APPLICABLE FOR DIALYSIS PATIEN TS. Pattern And Chain Maker ID - NEIL MCBC W/PLT COUNT & AUTO [id number] 08:03:00 Test Item Value Reference Range Interpretation [...] (BEAKER) (test code = 2801) BASIC METABOLIC [id number] 07:43:00 Test Item Value Reference Range Interpretation [...] S NOT APPLICABLE FOR DIALYSIS PATIEN TS. Pattern And Chain Maker ID - [id number] 07:43:00 Test Item Value Reference Range Interpretation Comments MAGNESIUM (BEAKER) (test code = 1.7 mg/dL 1.6-2.6 627) Pattern And Chain Maker ID - DBHEPATIC FUNCTION [id number] 07:43:00 Test Item Value Reference Range Interpretation [...] (test code = 13 U/L 6-55 347) Pattern And Chain Maker ID - DBCBC W/PLT COUNT & AUTO [id number] 06:56:00 Test Item Value Reference Range Interpretation [...] 417) IMMATURE GRANULOCYTES-RELATIVE 0 % 0-1 PERCENT (DWAYNE) (test code = 2801) SARS-COV2/INFLUENZA/RSV [id number] 02:52:00 Test Item Value Reference Range Interpretation Comments SARS-COV2/RT-PCR Negative Negative AA This is a c orrected (test code = result. Previou s result ) was Positive on 2020 at 0123 ARBOR PRESS OPERATOR INFLUENZA A RT-PCR Negative Negative (test code = 1528332) INFLUENZA B RT-PCR Negative Negative (test code = 2951396) RSV RT-PCR (test Negative Negative Performance of the Xpert code = 2439163) Xpress SARS- CoV-2/Flu/RSV test has only b een established in nasopharyngeal swab specimens. Use of the Xpert Xpress SARS-CoV-2/Flu/ RSV test with other spec imen types has not been as sessed and performance characteristics are unknown. As wit h any molecular test, mutations within the targ eted genetic regions identified by t Xpert Xpress SARS-CoV -2/Flu/RSV test could affe [...] patien t management deci sions. Results from Xpert Xpress SARS-CoV -2/Flu/RSV test should be [...] sooner.Fact She et for Healthcare Prov iders: https://www.Dreamforge/D ocuments/Xpert% 20Xpress%2 0FDLT-DwV-1-Flu -RSV/302-4 508%20Rev.%20B% 20HCP%20Fa ct%20Sheet.pdfF act Sheet for Healthcare Patients: https://www.Dreamforge/D ocuments/Xpert% 20Xpress%2 7WNMN-QhP-9-Flu -RSV/302-4 507%20Rev.%20B% 20Patient% 20Fact%20Sheet. pdf [id number] 22:49:00 Test Item Value Reference Range Interpretation Comments LIPASE (BEAKER) (test code = 749) < U/L 8-78 L Pattern And Chain Maker ID - DBCOMPREHENSIVE METABOLIC [id number] 22:49:00 Test Item Value Reference Range Interpretation [...] S NOT APPLICABLE FOR DIALYSIS PATIEN TS. Pattern And Chain Maker ID - DBCT, [id number] 22:32:00Reason for exam:->ABDOMINAL PAINWhat is the patient's sedation requirement?->No Sedation [facility] : 1975 Sex: [...] code = 2801) URINALYSIS W/ REFLEX URINE [id number] 21:51:00 Test Item Value Reference Range Interpretation [...] = 518) SOURCE(BEAKER) (test code = 2795) Pattern And Chain Maker ID - [auto]Pattern And Chain Maker ID - [id number] 05:11:00 Test Item Value Reference Range Interpretation Comments APPEARANCE (test code = Clear Clear 9854421744) COLOR (test code = Yellow Yellow 0887815566) PH (test code = 4.8-8.0 4247498310) SP GRAVITY (test code = 1.003-1.030 2923820796) GLU U QUAL (test code = Normal Normal 1174289031) BLOOD (test code = Negative Negative 8943611636) KETONES (test code = Negative Negative 6566528167) PROTEIN (test code = Negative Negative 2887-8) UROBILIN (test code = Normal Normal 0307368420) BILIRUBIN (test code = Negative Negative 2485548360) NITRITE (test code = Negative Negative 3998113735) LEUK TERRI (test code = Negative Negative 1097926393) RBC/HPF (test code = See_Comment [Autom ated message] 7144963223) The system [employer] generated this result transmitted ref erence range: 0 - 3 HP F. The reference range was not used to int erpret this result as normal/abnormal . WBC/HPF (test code = See_Comment [Autom ated message] 6081888678) The system [employer] generated this result transmitted ref erence range: 0 - 5 HP F. The reference range was not used to int erpret this result as normal/abnormal . BACTERIA (test code = Few Negative A 0125374890) SQ EPITH (test code = <1 HPF 0197115512) Lab Interpretation (test Abnormal code = 91963-1) [facility] WoodlandsCuauhtemoc [id number] 03:54:00 Test Item Value Reference Range Interpretation Comments TROPONIN I (test <0.012 See_Comment [Automated code = 7459657873) message] The system which generated this result transmitted reference range : <=0.034 ng/mL. The reference range was not used to interpr et this result as normal/abnormal . IKER (test code = Equal or Less than IKER) 0.034 ng/ml---Normal ?Note: Cardiac troponin begins to [...] ? Lab Interpretation Normal (test code = 78213-9) [facility] WoodlandsLipase [id number] 03:44:00 Test Item Value Reference Range Interpretation Comments LIPASE (test code = 0018713845) <10 0-220 Lab Interpretation (test code = Normal 29264-2) [facility]landsBasic Metabolic Panel (NA, K, CL, CO2, GLUCOSE, BUN, CREATININE, CA)2020-10-19 03:43:00 Test Item Value Reference Range Interpretation Comments NA (test code = 140 mmol/L 135-145 3952057501) K (test code = 4.0 mmol/L 3.5-5 0604957357) CL (test code = 100 mmol/L 98-108 5076267066) CO2 TOTAL (test code = 33 mmol/L 23-31 H 2203690174) AGAP (test code = 2-16 5310949785) BUN (test code = 5 mg/dL 7-23 L 6505617779) GLUCOSE (test code = 109 mg/dL 70-110 7240930007) CREATININE (test code = 1.17 mg/dL 0.6-1.25 4478611684) CALCIUM (test code = 9.5 mg/dL 8.6-10.6 5863606521) eGFR Calculation mL/min/1.73m2 (Non-) (test code = 5680082260) eGFR Calculation mL/min/1.73m2 () (test code = 0166839556) IKER (test code = IKER) Association of Glomerular Filtration Rate (GFR) and [...] tests). Lab Interpretation Abnormal (test code = 51184-3) [facility]landsHepatic Function Panel (ALB, T.PRO, BILI T, BU/BC, ALT, AST, ALK PHOS)2020-10-19 03:43:00 Test Item Value Reference Range Interpretation Comments TOTAL BILI (test code = 1221347112) 1.6 mg/dL 0.1-1.1 H BILI UNCON (test code = 9420505634) 1.6 mg/dL 0.1-1.1 H BILI CONJ (test code = 3549029859) 0.0 mg/dL 0-0.3 T PROTEIN (test code = 4269414927) 7.2 g/dL 6.3-8.2 ALBUMIN (test code = 4292274050) 4.3 g/dL 3.5-5 ALK PHOS (test code = 8245849113) 64 U/L 34-122 ALTv (test code = 1742-6) 17 U/L 5-50 AST(SGOT) (test code = 4361673279) 27 U/L 13-40 Lab Interpretation (test code = Abnormal 48849-1) [facility]landsCOVID-19 (ID NOW RAPID TESTING)2020-10-19 03:42:00 Test Item Value Reference Range Interpretation Comments SARS-CoV-2 Rapid ID NOW Not Detected Not Detected (test code = 49676-2) IKER (test code = IKER) ID NOW COVID-19 Assay is an isothermal nucleic acid amplification test intended for the qualitative detection of nucleic acid from SARS-CoV-2 viral RNA in nasopharyngeal (LABORATORY ADMINISTRATIVE DIRECTOR) specimens. It is used under Emergency Use [...] indicated. Lab Interpretation Normal (test code = 05332-8) [facility]landsCB with [id number] 03:28:00 Test Item Value Reference Range Interpretation Comments WBC (test code = See_Comment [Automated 5790-2) message] The sy stem which generated this [...] RDW-SD (test code = 44.1 fL 38.5-51.6 24966-5) RDW-CV (test code = 12.9 % 12.1-15.4 788-0) PLT (test code = See_Comment [Automated 777-3) message] The sy stem which generated this result transmitted reference range : 150 - 328 10*3/ ?L. The reference r taurus was not used to interpret this result as normal/abnormal . MPV (test code = 11.8 fL 9.8-13 20316-1) NRBC/100 WBC (test See_Comment [Automat ed code = 7193913787) message] The system which generated this result transmitted reference range : 0.0 - 10.0 /100 WBCs. The refer ence range was not u sed to interpret th is result as normal/abnormal . NRBC x10^3 (test code <0.01 See_Comment [Auto mated = 2305212148) message] The s ystem which generated this result transmitted reference range : 10*3/?L. The reference range was not used to interpret this result as normal/abnormal . GRAN MAT (NEUT) % 54.1 % (test code = 770-8) IMM GRAN % (test code 0.20 % = 3597400316) LYMPH % (test code = 30.0 % 736-9) MONO % (test code = 11.6 % 5905-5) EOS % (test code = 3.6 % 713-8) BASO % (test code = 0.5 % 706-2) GRAN MAT x10^3(ANC) 3.28 10*3/uL 1.99-6.95 (test code = 7480233799) IMM GRAN x10^3 (test <0.03 0-0.06 code = 4693783016) LYMPH x10^3 (test code 1.82 10*3/uL 1.09-3.23 = 731-0) MONO x10^3 (test code 0.70 10*3/uL 0.36-1.02 = 742-7) EOS x10^3 (test code = 0.22 10*3/uL 0.06-0.53 711-2) BASO x10^3 (test code 0.03 10*3/uL 0.01-0.09 = 704-7) Lab Interpretation Abnormal (test code = 65063-6) [facility] METABOLIC [id number] 05:05:00 Test Item Value Reference Range Interpretation [...] S NOT APPLICABLE FOR DIALYSIS PATIEN TS. Pattern And Chain Maker ID - [id number] 05:05:00 Test Item Value Reference Range Interpretation Comments MAGNESIUM (BEAKER) (test code = 1.6 mg/dL 1.6-2.6 627) Pattern And Chain Maker ID - EDASIRAD, ABDOMEN/KUB, 1 VIEW [id number] 15:41:00Reason for exam:->abdominal pain [facility] : 1975 Sex: MFINAL REPORT RAD, ABDOMEN/KUB, 1 VIEW AP CLINICAL INDICATION: abdominal pain COMPARISON: June 08, 2020 TECHNIQUE: Single, frontal radiograph of the abdomen. IMPRESSION: The bowel gas pattern dilated loops of small and large bowel. Appearance favors ileus. No visible pneumatosis. The regional skeleton is intact. Signed: JR Burk Robert MDReport Verified Date/Time: 10/17/2020 15:41:19 Reading Location: [facility] Radiology Reading Room BASI METABOLIC PANEL [...] S NOT APPLICABLE FOR DIALYSIS PATIEN TS. Pattern And Chain Maker ID - ANETA [id number] 07:22:00 Test Item Value Reference Range Interpretation Comments MAGNESIUM (BEAKER) (test code = 2.0 mg/dL 1.6-2.6 627) Pattern And Chain Maker ID - PIHANS LCBC W/PLT COUNT & AUTO [id number] 06:22:00 Test Item Value Reference Range Interpretation [...] (BEAKER) (test code = 2801) BASIC METABOLIC [id number] 05:42:00 Test Item Value Reference Range Interpretation [...] S NOT APPLICABLE FOR DIALYSIS PATIEN TS. Pattern And Chain Maker ID - NEIL [id number] 05:42:00 Test Item Value Reference Range Interpretation Comments MAGNESIUM (BEAKER) (test code = 1.4 mg/dL 1.6-2.6 L 627) Pattern And Chain Maker ID - NEIL MCBC W/PLT COUNT & AUTO [id number] 04:47:00 Test Item Value Reference Range Interpretation [...] PERCENT (BEAKER) (test code = 2801) SARS-COV2/RT-PCR ([facility])2020-10-15 13:08:00 Test Item Value Reference Range Interpretation Comments SARS-COV2/RT-PCR (test Negative Not Detected, Negative, code = 6766662) See external report for linked test SARS-COV-[address] [facility] TERI (test code = 4814259) Negative result for this test determines that [...] of the Act.Fact Sheet for Healthcare Prov iders:https://www.First Wave/sites/default/files/product/documents/Fact_Sheet_HC _Qgepzoagy_Tbms_UDBG-FoE-6.pdfFact Sheet for Healthcare Patients:https://www.Hello Universe.Plyce/sites/default/files/product/docume nts/Nppc_Iqwqh_Ldagwccg_Kijg_KFYT-SnW-7.pdfPerforming Laboratory:[facility], [place] [address]DR, [id number] 03:01:00Reason for exam:->ABDOMINAL PAINWhat is the patient's sedation requirement?->[facility] : 1975 Sex: [...] bilateral nephrolithiasis.Fatty atrophy pancreas. Signed: Sofiya Ding [facility] Verified Date/Time: 10/15/2020 03:01:22 [id number] 02:35:00 Test Item Value Reference Range Interpretation Comments LIPASE (BEAKER) (test code = 749) < U/L 8-78 L Pattern And Chain Maker ID - PIAYA LOperator ID - PIAYA LOperator ID - ADMINCOMPREHENSIVE METABOLIC [id number] 01:16:00 Test Item Value Reference Range Interpretation [...] S NOT APPLICABLE FOR DIALYSIS PATIEN TS. Pattern And Chain Maker ID - PIAYA LCBC W/PLT COUNT & AUTO [id number] 00:41:00 Test Item Value Reference Range Interpretation [...] (BEAKER) (test code = 2801) BASIC METABOLIC [id number] 07:08:00 Test Item Value Reference Range Interpretation [...] S NOT APPLICABLE FOR DIALYSIS PATIEN TS. Pattern And Chain Maker ID - NTPCBC W/PLT COUNT & AUTO [id number] 06:29:00 Test Item Value Reference Range Interpretation [...] (BEAKER) (test code = 2801) BASIC METABOLIC [id number] 06:39:00 Test Item Value Reference Range Interpretation [...] S NOT APPLICABLE FOR DIALYSIS PATIEN TS. Pattern And Chain Maker ID - EDASISpecimen slightly ictericCBC W/PLT COUNT & AUTO [id number] 06:08:00 Test Item Value Reference Range Interpretation [...] (BEAKER) (test code = 2801) BASIC METABOLIC [id number] 06:45:00 Test Item Value Reference Range Interpretation [...] S NOT APPLICABLE FOR DIALYSIS PATIEN TS. Pattern And Chain Maker ID - PIAYA LSpecimen slightly ictericCBC W/PLT COUNT & AUTO [id number] 06:28:00 Test Item Value Reference Range Interpretation [...] (BEAKER) (test code = 2801) LACTIC ACID, [id number] 06:25:00 Test Item Value Reference Range Interpretation Comments LACTATE BLOOD VENOUS (2) (BEAKER) 0.80 mmol/L 0.50-2.20 (test code = 2872) Pattern And Chain Maker ID - ANETA LSpecimen slightly ictericLACTIC ACID, [id number] 00:07:00 Test Item Value Reference Range Interpretation Comments LACTATE BLOOD VENOUS (2) (BEAKER) 0.77 mmol/L 0.50-2.20 (test code = 2872) Pattern And Chain Maker ID - ANETA LLACTIC ACID, [id number] 18:08:00 Test Item Value Reference Range Interpretation Comments LACTATE BLOOD VENOUS (2) (BEAKER) 1.35 mmol/L 0.50-2.20 (test code = 2872) Pattern And Chain Maker ID - NAVJOT, UGI, WITH SMALL [id number] 11:59:00Upper GI with small bowel follow throughReason [...] a prominent sigmoid colon. Signed: Emmanuel Murrell MDReport Verified Date/Time: 06/08/2020 11:59:48 Reading Location: [facility] C013Y CT Body Reading Room RAD, ABDOMEN/KUB, 1 VIEW [id number] 09:30:00Reason for exam:->NGT, SBOFINAL REPORT TECHNIQUE: Single [...] MDReport Verified Date/Time: 06/08/2020 09:30:43 Reading Location: [facility] C013Y CT Body Reading Room PROTHROMBIN TIME/[id number] 04:30:00 Test Item Value Reference Range Interpretation [...] is 2.5-3.5 for patients wiht mechanical heart valves.[id number] 04:09:00 Test Item Value Reference Range Interpretation Comments MAGNESIUM (BEAKER) (test code = 1.6 mg/dL 1.6-2.6 627) Pattern And Chain Maker ID - PIAYA LBASIC METABOLIC [id number] 04:09:00 Test Item Value Reference Range Interpretation [...] S NOT APPLICABLE FOR DIALYSIS PATIEN TS. Pattern And Chain Maker ID - PIAYA LURINALYSIS W/ REFLEX URINE [id number] 03:52:00 Test Item Value Reference Range Interpretation [...] /LPF 514) SOURCE(BEAKER) (test code = 2795) Pattern And Chain Maker ID - [auto]Pattern And Chain Maker ID - Annalise ACID, [id number] 03:31:00 Test Item Value Reference Range Interpretation Comments LACTATE BLOOD VENOUS (2) (BEAKER) 0.52 mmol/L 0.50-2.20 (test code = 2872) Pattern And Chain Maker ID - ANETA LCT, [id number] 00:01:00Unlisted Reason for Exam - Click Yes [...] pneumatosis. Large amount of retained stool in thecolon. No free air or fluid collection. Punctate nonobstructing bilateral renal stones. Pancreatic fatty atrophy. Discussed with Dr. Farah at approximately 11:52 PM 06/07/2020. Signed: Magno Carvajal MDReport Verified Date/Time: 06/08/2020 00:01:48 SARS-COV2/RT-PCR ([facility]) 2020-06-07 22:51:00 Test Item Value Reference Range Interpretation Comments SARS-COV2/RT-PCR (test code Negative Not Detected, Negative, = [id number]) See external report for linked test SARS-COV-[address] [facility] (test code = 3884574) Negative results do not preclude SARS-CoV-2 infection [...] of the Act.Fact Sheet for Healthcare Pro viders:https://www.Payment plugin.com/Documents/Xpert%20Xpress%20SARS%20CoV-2/Fact%20Sh eets/302-3802%36TVVG-FTG-9%20HEALTHCARE%20PROVIDERS%20FACT%20SHEET.pdfFact Sheet for Healthcare Patients:https://www.Wine Ring.com/Documents/Xpert%20Xpress%20SARS%20CoV-2/Fact%20Sheets/3023801%20SARS-COV -2%20PATIENT%20FACT%20SHEET.pdfPerforming Laboratory:[facility], [place] [id number] 20:56:00 Test Item Value Reference Range Interpretation Comments LIPASE (BEAKER) (test code = 749) < U/L 8-78 L Pattern And Chain Maker ID - DBBASIC METABOLIC [id number] 20:52:00 Test Item Value Reference Range Interpretation [...] S NOT APPLICABLE FOR DIALYSIS PATIEN TS. Pattern And Chain Maker ID - DBHEPATIC FUNCTION [id number] 20:52:00 Test Item Value Reference Range Interpretation Comments TOTAL PROTEIN (BEAKER) 7.6 gm/dL 6.0-8.3 Speci men markedly (test code = 770) hemolyzed ALBUMIN (BEAKER) (test 4.1 g/dL 3.5-5.0 Speci men markedly code = 1145) hemolyzed BILIRUBIN TOTAL 1.3 mg/dL 0.2-1.2 H Specimen mar kedly (BEAKER) (test code = hemoly zed 377) BILIRUBIN DIRECT 0.4 mg/dL 0.1-0.5 Specimen saba lorenzanaly (BEAKER) (test code = hemoly zed 706) ALKALINE PHOSPHATASE 82 U/L 40-150 (BEAKER) (test code = 346) AST (SGOT) (BEAKER) 36 U/L 5-34 H Specimen markedly (test code = 353) hemolyzed ALT (SGPT) (BEAKER) 26 U/L 6-55 Specimen markedly (test code = 347) hemolyzed Pattern And Chain Maker ID - DBCBC W/PLT COUNT & AUTO [id number] 20:33:00 Test Item Value Reference Range Interpretation [...] code = 2801) RAD, ABDOMEN/KUB, 1 VIEW [id number] 20:11:00Reason for exam:->ABDOMINAL PAINReason for exam:->history of [...] Date/Time: 06/07/2020 20:11:37 RAD, ABDOMEN/KUB, 1 VIEW [id number] 15:31:00Reason for exam:->assess stool burdenFINAL REPORT CLINICAL [...] view. Signed: Murray Gomez MDReport Verified Date/Time: 05/09/2020 15:31:54 Reading Location: [facility] Radiology Reading Room CBC W/PLT COUNT & AUTO [id number] 06:57:00 Test Item Value Reference Range Interpretation [...] 0-1 PERCENT (BEAKER) (test code = 2801) [id number] 06:46:00 Test Item Value Reference Range Interpretation Comments MAGNESIUM (BEAKER) 1.5 mg/dL 1.6-2.6 L Specimen slightly (test code = 627) hemolyzed Pattern And Chain Maker ID - [id number] 06:46:00 Test Item Value Reference Range Interpretation Comments PHOSPHORUS (BEAKER) 2.9 mg/dL 2.3-4.7 Specimen slightly (test code = 604) hemolyzed Pattern And Chain Maker ID - EDASIBASIC METABOLIC [id number] 06:46:00 Test Item Value Reference Range Interpretation [...] S NOT APPLICABLE FOR DIALYSIS PATIEN TS. Pattern And Chain Maker ID - EDASIHEPATIC FUNCTION [id number] 06:46:00 Test Item Value Reference Range Interpretation [...] Specimen slightly (test code = 347) hemolyzed Pattern And Chain Maker ID - [id number] 10:38:00 Test Item Value Reference Range Interpretation Comments MAGNESIUM (BEAKER) 1.9 mg/dL 1.6-2.6 Specimen slightly (test code = 627) hemolyzed Pattern And Chain Maker ID - [id number] 10:38:00 Test Item Value Reference Range Interpretation Comments PHOSPHORUS (BEAKER) 2.5 mg/dL 2.3-4.7 Specimen slightly (test code = 604) hemolyzed Pattern And Chain Maker ID - NTPBASIC METABOLIC [id number] 10:38:00 Test Item Value Reference Range Interpretation [...] S NOT APPLICABLE FOR DIALYSIS PATIEN TS. Pattern And Chain Maker ID - NTPHEPATIC FUNCTION [id number] 10:38:00 Test Item Value Reference Range Interpretation [...] Specimen slightly (test code = 347) hemolyzed Pattern And Chain Maker ID - NTPCBC W/PLT COUNT & AUTO [id number] 10:33:00 Test Item Value Reference Range Interpretation [...] PERCENT (BEAKER) (test code = 2801) SARS-COV2/RT-PCR ([facility])2020-05-07 11:54:00 Test Item Value Reference Range Interpretation Comments SARS-COV2/RT-PCR (test Negative Not Detected, Negative, code = 4261459) See external report for linked test SARS-COV-[address] [facility] TERI (test code = 8338578) Negative result for this test determines that [...] of the Act.Fact Sheet for Healthcare Pro viders:https://www.GlossyBoxidel.com/sites/default/files/product/documents/Fact_Sheet_H D_Cfrbhojni_Zkxb_RFBM-IiU-7.pdfFact Sheet for Healthcare Patients:https://www.GlossyBoxidel.com/sites/default/files/product/docum ents/Ummd_Kiwvx_Wsyxmpet_Edrc_ERMI-TkY-2.pdfPerforming Laboratory:[facility], [place] [id number] 10:19:00 Test Item Value Reference Range Interpretation Comments MAGNESIUM (BEAKER) (test code = 1.3 mg/dL 1.6-2.6 L 627) Pattern And Chain Maker ID - ANETA LBASIC METABOLIC [id number] 10:19:00 Test Item Value Reference Range Interpretation [...] S NOT APPLICABLE FOR DIALYSIS PATIEN TS. Pattern And Chain Maker ID - ANETA LHEPATIC FUNCTION [id number] 10:19:00 Test Item Value Reference Range Interpretation [...] (test code = 13 U/L 6-55 347) Pattern And Chain Maker ID Onofre CORNELL LCBC W/PLT COUNT & AUTO [id number] 10:00:00 Test Item Value Reference Range Interpretation [...] PERCENT (BEAKER) (test code = 2801) CT, [id number] 02:02:00FINAL REPORT TECHNIQUE: CT of the abdomen [...] CARMELO MOSLEY MD on 05/07/2020 02:02 AMURINALYSIS [id number] 01:08:00 Test Item Value Reference Range Interpretation Comments RBC UA (BEAKER) (test code = 519) < /HPF WBC UA (BEAKER) (test code = 520) 3 /HPF BACTERIA (BEAKER) (test code = Rare 517) MUCUS (BEAKER) (test code = 1574) Occasional SQUAMOUS EPITHELIAL (BEAKER) (test < /HPF code = 516) HYALINE CASTS (BEAKER) (test code 1 /LPF = 514) Pattern And Chain Maker ID - techU/S, ABDOMINAL, [id number] 00:44:00Abdomen limited area? Add comment if clarification [...] Date/Time: 05/07/2020 00:44:38 URINALYSIS WITH MICROSCOPIC IF [id number] 00:38:00 Test Item Value Reference Range Interpretation [...] = 463) SOURCE(BEAKER) (test code = 2795) Pattern And Chain Maker ID - [auto]Pattern And Chain Maker ID - [id number] 00:23:00 Test Item Value Reference Range Interpretation Comments LIPASE (BEAKER) (test code = 749) < U/L 8-78 L Pattern And Chain Maker ID - PIAYA LBASIC METABOLIC [id number] 00:20:00 Test Item Value Reference Range Interpretation [...] S NOT APPLICABLE FOR DIALYSIS PATIEN TS. Pattern And Chain Maker ID - PIAYA LHEPATIC FUNCTION [id number] 00:20:00 Test Item Value Reference Range Interpretation [...] (test code = 20 U/L 6-55 347) Pattern And Chain Maker ID Onofre CORNELL LLACTIC ACID, [id number] 23:58:00 Test Item Value Reference Range Interpretation Comments LACTATE BLOOD VENOUS 1.45 mmol/L 0.50-2.20 Specime n slightly (2) (BEAKER) (test hemolyzed code = 1282) Pattern And Chain Maker ID - ANETA LCBC W/PLT COUNT & AUTO [id number] 23:46:00 Test Item Value Reference Range Interpretation [...] (BEAKER) (test code = 2801) CF RESPIRATORY [id number] 16:25:00 Test Item Value Reference Range Interpretation [...] 3+ Normal respiratory maria del carmen presentCT, [id number] 10:37:00FINAL REPORT ABDOMINAL AND PELVIS CT DATED [...] MDReport Verified Date/Time: 04/17/2020 10:37:08 Reading Location: [facility] C013Y CT Body Reading Room URINALYSIS W/ REFLEX URINE [id number] 09:19:00 Test Item Value Reference Range Interpretation [...] /LPF 514) SOURCE(BEAKER) (test code = 2795) Pattern And Chain Maker ID - [auto]Pattern And Chain Maker ID - [id number] 09:14:00 Test Item Value Reference Range Interpretation Comments LIPASE (BEAKER) (test code = 749) < U/L 8-78 L Pattern And Chain Maker ID - GALAPBASIC METABOLIC [id number] 08:36:00 Test Item Value Reference Range Interpretation [...] S NOT APPLICABLE FOR DIALYSIS PATIEN TS. Pattern And Chain Maker ID - GALAPHEPATIC FUNCTION [id number] 08:36:00 Test Item Value Reference Range Interpretation [...] (test code = 32 U/L 6-55 347) Pattern And Chain Maker ID - GALAPCBC W/PLT COUNT & AUTO [id number] 08:26:00 Test Item Value Reference Range Interpretation [...] (BEAKER) (test code = 2801) CF RESPIRATORY [id number] 12:01:00 Test Item Value Reference Interpretation Comments [...] 0-4 , Resistant <0 or >4 CULTURE (MacuCLEARAKER) A 1+ (test code = 1095) Stenotrop [...] 4+ Normal respiratory maria del carmen presentPOCT-GLUCOSE [id number] 10:24:00 Test Item Value Reference Range Interpretation Comments POC-GLUCOSE METER 101 mg/dL 70-110 : TESTED A T [facility] 6720 (BEAKER) (test code = [place], [address]) [address]: Pattern And Chain Maker/Techni rian ID = [id number] for CA STRO, LILA [id number] 05:45:00 Test Item Value Reference Range Interpretation Comments MAGNESIUM (BEAKER) (test code = 1.4 mg/dL 1.6-2.6 L 627) Pattern And Chain Maker ID - LABASIC METABOLIC [id number] 05:45:00 Test Item Value Reference Range Interpretation [...] S NOT APPLICABLE FOR DIALYSIS PATIEN TS. Pattern And Chain Maker ID - LABASIC METABOLIC [id number] 13:57:00 Test Item Value Reference Range Interpretation [...] S NOT APPLICABLE FOR DIALYSIS PATIEN TS. Pattern And Chain Maker ID - NEIL MRAD, ABDOMEN/KUB, 1 VIEW [id number] 09:29:00Reason for exam:->LIONEL, eval stool burdenFINAL REPORT [...] MDReport Verified Date/Time: 10/22/2019 09:29:36 Reading Location: [facility] Radiology Reading Room [id number] 07:28:00 Test Item Value Reference Range Interpretation Comments MAGNESIUM (BEAKER) 1.4 mg/dL 1.6-2.6 L Specimen moderately (test code = 627) hemolyzed Pattern And Chain Maker ID - [id number] 03:32:00 Test Item Value Reference Range Interpretation Comments MAGNESIUM (BEAKER) (test code = 1.4 mg/dL 1.6-2.6 L 627) Pattern And Chain Maker ID - NEIL MBTheravance METABOLIC [id number] 03:32:00 Test Item Value Reference Range Interpretation [...] S NOT APPLICABLE FOR DIALYSIS PATIEN TS. Pattern And Chain Maker ID - NEIL [id number] 05:11:00 Test Item Value Reference Range Interpretation Comments MAGNESIUM (BEAKER) (test code = 1.7 mg/dL 1.6-2.6 627) Pattern And Chain Maker ID - NEIL GUILLENASIC METABOLIC [id number] 05:11:00 Test Item Value Reference Range Interpretation [...] S NOT APPLICABLE FOR DIALYSIS PATIEN TS. Pattern And Chain Maker ID - NEIL MCMAHOND, ABDOMEN/KUB, 1 VIEW [id number] 05:46:00Reason for exam:->ABDOMINAL PAINFINAL REPORT TECHNIQUE: Single [...] MDReport Verified Date/Time: 10/19/2019 05:46:42 BASIC METABOLIC [id number] 05:42:00 Test Item Value Reference Range Interpretation [...] S NOT APPLICABLE FOR DIALYSIS PATIEN TS. Pattern And Chain Maker ID - NEIL [id number] 05:29:00 Test Item Value Reference Range Interpretation Comments PHOSPHORUS (BEAKER) (test code = 2.4 mg/dL 2.3-4.7 604) Pattern And Chain Maker ID - NEIL [id number] 05:29:00 Test Item Value Reference Range Interpretation Comments MAGNESIUM (BEAKER) (test code = 1.5 mg/dL 1.6-2.6 L 627) Pattern And Chain Maker ID - NEIL MCT, [id number] 04:01:00Reason for exam:->distal intestinal obstructionWhat is the [...] MDReport Verified Date/Time: 10/19/2019 04:01:15 BASIC METABOLIC [id number] 02:51:00 Test Item Value Reference Range Interpretation [...] S NOT APPLICABLE FOR DIALYSIS PATIEN TS. Pattern And Chain Maker ID - NEIL MCBC W/PLT COUNT & AUTO [id number] 01:44:00 Test Item Value Reference Range Interpretation [...] (test code = 2801) AFB CULTURE + [id number] 12:10:00 Test Item Value Reference Range Interpretation Comments CULTURE (BEAKER) (test No acid-fast bacilli code = 1095) isolated in 42 days AFB SMEAR (BEAKER) No acid fast bacilli (test code = 994) seen FUNGUS CULTURE + [id number] 18:48:00 Test Item Value Reference Range Interpretation Comments CULTURE (BEAKER) A <1+ Padilla (test code = 1095) parapsilo sis FUNGUS SMEAR No fungi seen (BEAKER) (test code = 1406) CF RESPIRATORY [id number] 08:04:00 Test Item Value Reference Range Interpretation [...] 3+ Normal respiratory maria del carmen presentSPIN/CONCENTRATION [id number] 01:05:00 Test Item Value Reference Range Interpretation Comments CONCENTRATION CHARGED (BEAKER) (test Done code = 4300) CREATININE, RANDOM [id number] 01:17:00 Test Item Value Reference Range Interpretation Comments CREATININE URINE (BEAKER) (test 105.9 mg/dL code = 375) Reference Range: No NormalsSODIUM, RANDOM [id number] 01:17:00 Test Item Value Reference Range Interpretation Comments SODIUM URINE (BEAKER) (test code = 235 meq/L 243) Reference Range: No NormalsBASIC METABOLIC [id number] 14:52:00 Test Item Value Reference Range Interpretation [...] PATIEN TS. CBC W/PLT COUNT & AUTO [id number] 06:59:00 Test Item Value Reference Range Interpretation [...] (BEAKER) (test code = 2801) BASIC METABOLIC [id number] 07:05:00 Test Item Value Reference Range Interpretation [...] PATIEN TS. CBC W/PLT COUNT & AUTO [id number] 06:46:00 Test Item Value Reference Range Interpretation [...] PERCENT (BEAKER) (test code = 2801) TROPONIN [id number] 19:25:00 Test Item Value Reference Range Interpretation [...] acute neurological disease, and persistent tachyarrhythmia.BASIC METABOLIC [id number] 07:10:00 Test Item Value Reference Range Interpretation [...] PATIEN TS. CBC W/PLT COUNT & AUTO [id number] 06:55:00 Test Item Value Reference Range Interpretation [...] (BEAKER) (test code = 2801) BASIC METABOLIC [id number] 03:46:00 Test Item Value Reference Range Interpretation [...] PATIEN TS. CBC W/PLT COUNT & AUTO [id number] 03:42:00 Test Item Value Reference Range Interpretation [...] PERCENT (BEAKER) (test code = 2801) POCT-GLUCOSE [id number] 06:12:00 Test Item Value Reference Range Interpretation Comments POC-GLUCOSE METER 81 mg/dL 70-[address] [facility] 6720 (BEAKER) (test code = [place] [address]) BASIC METABOLIC [id number] 05:38:00 Test Item Value Reference Range Interpretation [...] PATIEN TS. CBC W/PLT COUNT & AUTO [id number] 04:55:00 Test Item Value Reference Range Interpretation [...] PERCENT (BEAKER) (test code = 2801) POCT-GLUCOSE [id number] 00:40:00 Test Item Value Reference Range Interpretation Comments POC-GLUCOSE METER 106 mg/dL 70-[address] [facility] 67 ([facility]) (test code = [facility] 1538) [address] POCT-GLUCOSE [id number] 18:46:00 Test Item Value Reference Range Interpretation Comments POC-GLUCOSE METER 102 mg/dL 70-[address] [facility] 6720 ([facility]) (test code = [facility] 1538) [address] [place], SMALL BOWEL [id number] 18:00:00Reason for exam:->resolution of ileus FINAL REPORT [...] ileus or low-grade partial obstruction. Signed: Geno Watersort Verified Date/Time: 06/04/2019 18:00:59 Reading Location: [facility] [address] C013X Ortho Consult Reading Room POCT-GLUCOSE [id number] 12:42:00 Test Item Value Reference Range Interpretation Comments POC-GLUCOSE METER 88 mg/dL 70-110 [facility] [place] [address] [facility] (test code = [facility]INE [facility] [address] 1538) RAD, ABDOMEN/KUB, 1 VIEW [id number] 10:33:00Reason for exam:->distentioin FINAL REPORT RAD, ABDOMEN/KUB, [...] Duque MDReportVerified Date/Time: 06/04/2019 10:33:04 Reading [facility] Reading Room POCT-GLUCOSE [id number] 07:13:00 Test Item Value Reference Range Interpretation Comments POC-GLUCOSE METER 76 mg/dL 70-110 [facility] [place] [address] [facility] (test code = JUSTINE Ha [facility] [address] 1538) BASIC METABOLIC [id number] 07:03:00 Test Item Value Reference Range Interpretation [...] PATIEN TS. CBC W/PLT COUNT & AUTO [id number] 06:56:00 Test Item Value Reference Range Interpretation [...] PERCENT (BEAKER) (test code = 2801) POCT-GLUCOSE [id number] 05:03:00 Test Item Value Reference Range Interpretation Comments POC-GLUCOSE METER 90 mg/dL 70-[address] [facility] 6720 (BEAKER) (test code = [place] [address]38) [id number] 12:47:00 Test Item Value Reference Range Interpretation Comments MAGNESIUM (BEAKER) (test code = 1.8 mg/dL 1.6-2.6 627) BASIC METABOLIC [id number] 12:47:00 Test Item Value Reference Range Interpretation [...] PATIEN TS. CBC W/PLT COUNT & AUTO [id number] 12:20:00 Test Item Value Reference Range Interpretation [...] PERCENT (BEAKER) (test code = 2801) CT, [id number] 16:06:00Please give water soluble rectal contrast (gastrograffin)FINAL [...] MDReport Verified Date/Time: 06/02/2019 16:06:39 Reading Location: [facility] C013X [facility] Consult Reading Room GLOBIN [id number] 14:49:00 Test Item Value Reference Range Interpretation Comments HEMOGLOBIN A1C (BEAKER) (test code = 6.4 % 4.3-6.1 H 368) [id number] 10:13:00 Test Item Value Reference Range Interpretation Comments PHOSPHORUS (BEAKER) (test code = 2.7 mg/dL 2.3-4.7 604) [id number] 10:13:00 Test Item Value Reference Range Interpretation Comments MAGNESIUM (BEAKER) (test code = 1.8 mg/dL 1.6-2.6 627) BASIC METABOLIC [id number] 10:13:00 Test Item Value Reference Range Interpretation [...] APPLICABLE FOR DIALYSIS PATIEN TS. HEPATIC FUNCTION [id number] 10:13:00 Test Item Value Reference Range Interpretation [...] 6-55 347) CBC W/PLT COUNT & AUTO [id number] 10:01:00 Test Item Value Reference Range Interpretation [...] PERCENT (BEAKER) (test code = 2801) CT, [id number] 04:53:00FINAL REPORT CT, ABDOMEN \\T\\ PELVIS, WITH [...] FINDINGS: Lower thorax: Mucous plugging right middle lobe.. No pleural effusion. The heart is normal in size. No pericardial effusion. Liver: Hypoattenuation of the hepatic parenchyma may be related to timing of contrast versus hepatic steatosis. No discrete hepatic lesions are identified.Gallbladder and biliary tree: No ductal dilation or stones.Pancreas: Relatively fatty replaced head with atrophic body.Spleen: Grossly unremarkable.Adrenal Glands: No acutefindings.Kidneys and ureters: Bilateral nonobstructing nephrolithiasis the largest of which measuresup to 3 mm in the left interpole. [...] large bowel without abnormal large bowel wall thickening.Surgical chain sutures in the cecum. Multiple alternating distended and nondistended loops of small b owel seen within the abdomen similar in appearance to multiple comparison studies with dilatation ofthe anastomosis in the left abdomen, likely functional ileus. The enteric contrast material reaches the proximal large bowel. Appendix: Not identified. Major vascular structures: Normal aortic caliber.P eritoneum and retroperitoneum: Again seen are multiple enlarged mesenteric lymph nodes, not significant changed in the interval. Skeleton: No acute bony abnormality.Additional findings: None. IMPRESSION: Unchanged mucous plugging in the right middle lobe. Multiple alternating distended and nondistended loops of small bowel within the abdomen with multiple abnormal air-fluid levels. Normal transit of enteric contrast material into the proximal large bowel. Findings are favored to reflect ileus however a small bowel obstruction (partial or early complete) cannot be excluded. Clinical correlation is recommended. Large stool burden throughout the large bowel with postsurgical changes of the right colon. Nonobstructing bilateral nephrolithiasis. Signed: Sofiya Ding MDReport Verified Date/Time:06/02/2019 04:53:48 BASIC METABOLIC [id number] 02:20:00 Test Item Value Reference Range Interpretation [...] TS. RAD, ABDOMEN SERIES W/ UPRIGHT PA [id number] 01:44:00Reason for exam:- >ABDOMINAL PAINFINAL REPORT RAD, [...] 06/01/2019 01:44:40 CBC W/PLT COUNT & AUTO [id number] 00:59:00 Test Item Value Reference Range Interpretation [...] (BEAKER) (test code = 2801) RESPIRATORY PANEL [id number] 16:44:00 Test Item Value Reference Range Interpretation Comments HUMAN METAPNEUMOVIRUS Not detected Not detected, (BEAKER) (test code = 2683) Equivocal RHINOVIRUS (BEAKER) (test Not detected Not detected, code = 2684) Equivocal INFLUENZA A (BEAKER) (test Not detected Not detected, code = 2685) Equivocal INFLUENZA A (NO SUBTYPE) Not detected, (test code = 5976) Equivocal INFLUENZA A SUBTYPE H1 Not detected, [...] This sample was tested at the [facility] Molecular Diagnostics Laboratory using the vushaper FilmArray Respiratory Panel. It is FDA cleared and has been verified and approved by the [facility] Molecular Diagnostics Laboratory for clinical use on nasopharyngeal swab specimens.The performance of the FilmArrayRP has not been established in individuals who received influenza vaccine. Recent administration of a nasal influenza vaccine may cause false positive results for Influenza A and/orInfluenza B.[id number] 06:22:00 Test Item Value Reference Range Interpretation Comments MAGNESIUM (BEAKER) 2.2 mg/dL 1.6-2.6 Specimen slightly (test code = 627) hemolyzed BASIC METABOLIC [id number] 06:22:00 Test Item Value Reference Range Interpretation [...] PATIEN TS. CBC W/PLT COUNT & AUTO [id number] 06:01:00 Test Item Value Reference Range Interpretation [...] = 2801) CBC W/PLT COUNT & AUTO [id number] 07:32:00 Test Item Value Reference Range Interpretation [...] 3438) Received comment: User comments: Slide comments:CALCIUM, [id number] 05:25:00 Test Item Value Reference Range Interpretation Comments CALCIUM IONIZED (BEAKER) (test 1.14 mmol/L 1.12-1.27 code = 698) PH, BLOOD (BEAKER) (test code = 7.41 1810) [id number] 05:04:00 Test Item Value Reference Range Interpretation Comments PHOSPHORUS (BEAKER) (test code = 2.6 mg/dL 2.3-4.7 604) [id number] 05:04:00 Test Item Value Reference Range Interpretation Comments MAGNESIUM (BEAKER) (test code = 1.9 mg/dL 1.6-2.6 627) BASIC METABOLIC [id number] 05:04:00 Test Item Value Reference Range Interpretation [...] NOT APPLICABLE FOR DIALYSIS PATIEN TS. CT, [id number] 17:54:00FINAL REPORT CT scan of the abdomen [...] MDReport Verified Date/Time: 03/27/2019 17:54:25 Reading Location: [place] [address]X [facility] Consult Reading Room CBC W/PLT COUNT & AUTO [id number] 10:54:00 Test Item Value Reference Range Interpretation [...] = 3438) Received comment: User comments: Slide comments:[id number] 06:36:00 Test Item Value Reference Range Interpretation Comments PHOSPHORUS (BEAKER) (test code = 2.1 mg/dL 2.3-4.7 L 604) [id number] 06:36:00 Test Item Value Reference Range Interpretation Comments MAGNESIUM (BEAKER) (test code = 1.6 mg/dL 1.6-2.6 627) BASIC METABOLIC [id number] 06:36:00 Test Item Value Reference Range Interpretation [...] NOT APPLICABLE FOR DIALYSIS PATIEN TS. CALCIUM, [id number] 06:23:00 Test Item Value Reference Range Interpretation Comments CALCIUM IONIZED (BEAKER) (test 1.14 mmol/L 1.12-1.27 code = 698) PH, BLOOD (BEAKER) (test code = 7.46 1810) RAD, ABDOMEN/KUB, 1 VIEW [id number] 16:14:00Reason for exam:->constipation FINAL REPORT EXAM: AP [...] Verified Date/Time: 03/26/2019 16:14:33 Reading L ocation: [facility] Reading Room CBC W/PLT COUNT & AUTO [id number] 10:48:00 Test Item Value Reference Range Interpretation [...] (BEAKER) (test code Normal = 762) CALCIUM, [id number] 06:53:00 Test Item Value Reference Range Interpretation Comments CALCIUM IONIZED (BEAKER) (test 1.14 mmol/L 1.12-1.27 code = 698) PH, BLOOD (BEAKER) (test code = 7.44 1810) [id number] 06:33:00 Test Item Value Reference Range Interpretation Comments PHOSPHORUS (BEAKER) (test code = 2.6 mg/dL 2.3-4.7 604) [id number] 06:33:00 Test Item Value Reference Range Interpretation Comments MAGNESIUM (BEAKER) (test code = 1.4 mg/dL 1.6-2.6 L 627) BASIC METABOLIC [id number] 06:33:00 Test Item Value Reference Range Interpretation [...] S NOT APPLICABLE FOR DIALYSIS PATIEN TS. [id number] 06:28:00 Test Item Value Reference Range Interpretation Comments PHOSPHORUS (BEAKER) (test code = 2.8 mg/dL 2.3-4.7 604) [id number] 06:28:00 Test Item Value Reference Range Interpretation Comments MAGNESIUM (BEAKER) (test code = 1.7 mg/dL 1.6-2.6 627) BASIC METABOLIC [id number] 06:28:00 Test Item Value Reference Range Interpretation Comments SODIUM (BEAKER) 135 meq/L 136-145 L (test code = 381) POTASSIUM (BEAKER) 4.4 meq/L 3.5-5.1 (test code = 379) CHLORIDE (BEAKER) 105 meq/L 98-107 (test code = 382) CO2 (BEAKER) (test 24 meq/L -29 code = 355) BLOOD UREA NITROGEN 7 [...] NOT APPLICABLE FOR DIALYSIS PATIEN TS. CALCIUM, [id number] 06:27:00 Test Item Value Reference Range Interpretation Comments CALCIUM IONIZED (BEAKER) (test 1.18 mmol/L 1.12-1.27 code = 698) PH, BLOOD (BEAKER) (test code = 7.33 1810) CBC W/PLT COUNT & AUTO [id number] 14:47:00 Test Item Value Reference Range Interpretation [...] code = 2801) RAD, ABDOMEN/KUB, 1 VIEW [id number] 10:35:00Reason for exam:- >distentionShould this be performed at the bedside?->YesFINAL REPORT AP abdomen HISTORY: Distention COMPARISON: 03/21/2018 IMPRESSION:Decreased colonic stool burden. Some prominent aeration in the right lower quadrant. Recommend continued radiographic follow-up as developing ileus not excluded. Examination is insensitive for detection of free air. Signed: Angel Santillan MDReport Verified Date/Time: 03/24/2019 10:35:17 Reading Location: [address] Ortho Consult Reading Room [id number] 07:21:00 Test Item Value Reference Range Interpretation Comments PHOSPHORUS (BEAKER) (test code = 2.4 mg/dL 2.3-4.7 604) [id number] 07:21:00 Test Item Value Reference Range Interpretation Comments MAGNESIUM (BEAKER) (test code = 1.4 mg/dL 1.6-2.6 L 627) BASIC METABOLIC [id number] 07:21:00 Test Item Value Reference Range Interpretation [...] NOT APPLICABLE FOR DIALYSIS PATIEN TS. CALCIUM, [id number] 06:37:00 Test Item Value Reference Range Interpretation Comments CALCIUM IONIZED (BEAKER) (test 1.14 mmol/L 1.12-1.27 code = 698) PH, BLOOD (BEAKER) (test code = 7.43 1810) POCT-GLUCOSE [id number] 18:06:00 Test Item Value Reference Range Interpretation Comments POC-GLUCOSE METER 106 mg/dL 70-[address] [facility] (test code = [facility] 1538) [address] CALCIUM, [id number] 13:41:00 Test Item Value Reference Range Interpretation Comments CALCIUM IONIZED (BEAKER) (test 0.83 mmol/L 1.12-1.27 L code = 698) PH, BLOOD ([facility]) (test code = 7.47 1810) POCT-GLUCOSE [id number] 11:59:00 Test Item Value Reference Range Interpretation Comments POC-GLUCOSE METER 93 mg/dL 70-110 TESTED AT [place] [address] ([facility]) (test code = [facility] [address] 1538) [id number] 10:39:00 Test Item Value Reference Range Interpretation Comments MAGNESIUM (BEAKER) 1.6 mg/dL 1.6-2.6 Specimen slightly (test code = 627) hemolyzed [id number] 10:39:00 Test Item Value Reference Range Interpretation Comments PHOSPHORUS (BEAKER) 2.5 mg/dL 2.3-4.7 Specimen slightly (test code = 604) hemolyzed BASIC METABOLIC [id number] 10:39:00 Test Item Value Reference Range Interpretation [...] PATIEN TS. CBC W/PLT COUNT & AUTO [id number] 10:13:00 Test Item Value Reference Range Interpretation [...] PERCENT (BEAKER) (test code = 2801) POCT-GLUCOSE [id number] 06:33:00 Test Item Value Reference Range Interpretation Comments POC-GLUCOSE METER 74 mg/dL 70-[address] [facility] 6720 (BEAKER) (test [place] = [place] [address] 1538) [id number] 07:02:00 Test Item Value Reference Range Interpretation Comments MAGNESIUM (BEAKER) (test code = 1.6 mg/dL 1.6-2.6 627) BASIC METABOLIC [id number] 07:02:00 Test Item Value Reference Range Interpretation [...] TS. RAD, ABDOMEN SERIES W/ UPRIGHT PA [id number] 00:30:00Reason for exam:- >SBOReason for exam:->EMESISFINAL REPORT [...] MDReport Verified Date/Time: 03/22/2019 00:30:32 Reading Location: [address] Reading Room URINALYSIS W/ [id number] 21:18:00 Test Item Value Reference Range Interpretation [...] 0 /HPF SOURCE(BEAKER) (test code = 2795) [id number] 20:16:00 Test Item Value Reference Range Interpretation Comments LIPASE (BEAKER) (test code = 749) < U/L 8-78 L BASIC METABOLIC [id number] 20:14:00 Test Item Value Reference Range Interpretation [...] APPLICABLE FOR DIALYSIS PATIEN TS. HEPATIC FUNCTION [id number] 20:14:00 Test Item Value Reference Range Interpretation [...] 6-55 347) CBC W/PLT COUNT & AUTO [id number] 19:59:00 Test Item Value Reference Range Interpretation [...] PERCENT (BEAKER) (test code = 2801) POCT-GLUCOSE [id number] 21:18:00 Test Item Value Reference Range Interpretation Comments POC-GLUCOSE METER 155 mg/dL 70-110 H TEST[facility] AT [place] [address] [facility] (test code = [facility] 1538) [address] POCT-GLUCOSE [id number] 12:24:00 Test Item Value Reference Range Interpretation Comments POC-GLUCOSE METER 179 mg/dL 70-110 H TESTED AT [place] [address] [facility] (test code = [facility] 1538) [address] POCT-GLUCOSE [id number] 09:01:00 Test Item Value Reference Range Interpretation Comments POC-GLUCOSE METER 79 mg/dL 70-110 TESTED AT [place] [address] [facility] (test code = [facility] [address] 1538) POCT-GLUCOSE [id number] 21:50:00 Test Item Value Reference Range Interpretation Comments POC-GLUCOSE METER 134 mg/dL 70-110 H TESTED AT [place] [address] ([facility] (test code = [facility] 1538) [address] BASIC METABOLIC [id number] 06:49:00 Test Item Value Reference Range Interpretation [...] PATIEN TS. CBC W/PLT COUNT & AUTO [id number] 06:27:00 Test Item Value Reference Range Interpretation [...] PERCENT (BEAKER) (test code = 2801) POCT-GLUCOSE [id number] 22:51:00 Test Item Value Reference Range Interpretation Comments POC-GLUCOSE METER 128 mg/dL 70-[address] [facility] 6720 (BEAKER) (test code = [place] [facility] 1538) [address] CT, [id number] 23:14:00FINAL REPORT ABDOMINAL AND PELVIS CT DATED [...] MDReport Verified Date/Time: 02/14/2019 23:14:03 Reading Location: [facility] [address] Consult Reading Room LIPASE 2019-02-14 21:10:00 Test Item Value Reference Range Interpretation Comments LIPASE (BEAKER) (test code = 749) < U/L 8-78 L COMPREHENSIVE METABOLIC [id number] 21:09:00 Test Item Value Reference Range Interpretation [...] APPLICABLE FOR DIALYSIS PATIEN TS. LACTIC ACID, [id number] 21:04:00 Test Item Value Reference Range Interpretation Comments LACTATE BLOOD VENOUS (2) (BEAKER) 0.8 mmol/L 0.5-2.2 (test code = 2872) BLOOD GAS, [id number] 21:04:00 Test Item Value Reference Range Interpretation [...] 21.0 % CBC W/PLT COUNT & AUTO [id number] 20:49:00 Test Item Value Reference Range Interpretation [...] (test code = 2801) AFB CULTURE + [id number] 10:54:00 Test Item Value Reference Interpretation Comments Range CULTURE (BEAKER) MYCOBACTERIUM A Mycobacter iu (test code = 1095) SPECIES species* - Most closely related to M.yongonense/M. mars eillenseIdentif icat ion and susceptibility performed by:[facility] , Dept. of Microbiology Research, Dr. Shyam Olvera [facility], [address] [address], [place], [place] [address] Amikacin (test code mcg/mL S = 1) [...] and not related to human disease.CF RESPIRATORY [id number] 00:29:00 Test Item Value Reference Range Interpretation [...] maria del carmen present- CT ABD PELVIS [id number] 23:53:00 Name: VELIA RIVERA [facility] : 1975 Age/S: 43 / M [address] Unit #: [id number] Loc: [place] [address] Phys: Angela Diaz MD Acct: [id number] Dis Date: Status: REG ER PHONE #: [phone] Exam Date: 11/20/2018 2350 FAX #: Reason: RLQ pain, hx of SBO EXAMS: CPT: [id number] ABD PELVIS W/CONT 11674 Site ID: [id number] CLINICAL HISTORY: Right lower [...] 1 Signed Report (CONTINUED) Name: VELIA RIVERA [facility] : 1975 Age/S: 43 / M [address] [place] [address] Unit #: [id number] Loc: [place] [address] Phys: Angela Diaz MD Acct: [id number] Dis Date: Status: REG ER PHONE #: [phone] Exam Date: 11/20/2018 2350 FAX #: Reason: RLQ pain, hx of SBO EXAMS: CPT: [id number] CT ABD PELVIS W/CONT 62583 (Continued) at 2353 Reported and signed by: Florence Ferrera M.D. CC: Radha Burch MD; Angela Diaz MD; Yani Gonzalez NP Technologist:Florencia Pinto, RT(R)(CT); J CTDI: DLP: Trnscb Date/Time: 11/20/2018 (4933) IbrahimaAJP6 Orig Print D/T: S: 11/20/2018 (2642) CTDI: DLP: PAGE 2 Signed ReportBASIC METABOLIC [id number] 23:24:00 Test Item Value Reference Range Interpretation [...] CA) 8.3 MG/DL 8.5-10.1 L HEPATIC FUNCTION [id number] 23:24:00 Test Item Value Reference Range Interpretation [...] 93 Unit/L 50-136 N code = ALKP) [id number] 23:24:00 Test Item Value Reference Range Interpretation Comments LIPASE (test code = LIP) 28 Unit/L 114-286 L URINALYSIS [id number] 23:21:00 Test Item Value Reference Range Interpretation [...] DIPSTICK (test code = LEUU) CBC W/AUTO [id number] 23:18:00 Test Item Value Reference Range Interpretation [...] = NO DIFF/SCN CRITERIA MDIFF) BASIC METABOLIC [id number] 23:12:00 Test Item Value Reference Range Interpretation [...] CA) 8.3 MG/DL 8.5-10.1 L HEPATIC FUNCTION [id number] 23:12:00 Test Item Value Reference Range Interpretation [...] TOTAL (test code Unit/L 50-136 = ALKP) [id number] 23:12:00 Test Item Value Reference Range Interpretation Comments LIPASE (test code = LIP) 28 Unit/L 114-286 L CF RESPIRATORY [id number] 09:28:00 Test Item Value Reference Range Interpretation [...] Normal respiratory maria del carmen presentCF RESPIRATORY [id number] 15:22:00 Test Item Value Reference Range Interpretation [...] >4 4+ Normal respiratory maria del carmen [id number] 09:23:00 Test Item Value Reference Range Interpretation Comments PHOSPHORUS (BEAKER) (test code = 2.4 mg/dL 2.3-4.7 604) [id number] 09:23:00 Test Item Value Reference Range Interpretation Comments MAGNESIUM (BEAKER) (test code = 1.8 mg/dL 1.6-2.6 627) BASIC METABOLIC [id number] 09:23:00 Test Item Value Reference Range Interpretation [...] PATIEN TS. CBC W/PLT COUNT & AUTO [id number] 09:03:00 Test Item Value Reference Range Interpretation [...] PERCENT (BEAKER) (test code = 2801) SPIN/CONCENTRATION [id number] 14:50:00 Test Item Value Reference Range Interpretation Comments CONCENTRATION CHARGED (BEAKER) (test Done code = 2657) TOBRAMYCIN LEVEL, [id number] 07:27:00 Test Item Value Reference Range Interpretation Comments TOBRAMYCIN RANDOM (BEAKER) (test 1.7 ug/mL code = 544) Reference Range: No [id number] 07:24:00 Test Item Value Reference Range Interpretation Comments PHOSPHORUS (BEAKER) (test code = 2.5 mg/dL 2.3-4.7 604) [id number] 07:24:00 Test Item Value Reference Range Interpretation Comments MAGNESIUM (BEAKER) (test code = 1.5 mg/dL 1.6-2.6 L 627) BASIC METABOLIC [id number] 07:24:00 Test Item Value Reference Range Interpretation [...] PATIEN TS. CBC W/PLT COUNT & AUTO [id number] 07:03:00 Test Item Value Reference Range Interpretation [...] 0-1 PERCENT (BEAKER) (test code = 2801) [id number] 04:19:00 Test Item Value Reference Range Interpretation Comments MAGNESIUM (BEAKER) 1.6 mg/dL 1.6-2.6 Specimen slightly (test code = 627) hemolyzed [id number] 04:19:00 Test Item Value Reference Range Interpretation Comments PHOSPHORUS (BEAKER) 2.6 mg/dL 2.3-4.7 Specimen slightly (test code = 604) hemolyzed BASIC METABOLIC [id number] 04:19:00 Test Item Value Reference Range Interpretation [...] PATIEN TS. CBC W/PLT COUNT & AUTO [id number] 04:09:00 Test Item Value Reference Range Interpretation [...] PERCENT (BEAKER) (test code = 2801) CT, [id number] 21:54:00FINAL REPORT EXAM: CT of the abdomen [...] MDReport Verified Date/Time: 10/25/2018 21:54:25 Reading Location: [address] Reading Room [facility] METABOLIC [id number] 20:13:00 Test Item Value Reference Range Interpretation [...] APPLICABLE FOR DIALYSIS PATIEN TS. URINALYSIS W/ [id number] 19:19:00 Test Item Value Reference Range Interpretation [...] 520) SOURCE(BEAKER) (test code = Urine, Voided 4788) CBC W/PLT COUNT & AUTO [id number] 19:02:00 Test Item Value Reference Range Interpretation [...] (test code = 2801) AFB CULTURE + [id number] 12:42:00 Test Item Value Reference Range Interpretation Comments CULTURE (BEAKER) (test No acid-fast bacilli code = 1095) isolated in 42 days AFB SMEAR (BEAKER) No acid fast bacilli (test code = 994) seen FUNGUS CULTURE + [id number] 06:40:00 Test Item Value Reference Range Interpretation Comments CULTURE (BEAKER) (test No fungus isolated in code = 1095) 28 days FUNGUS SMEAR (BEAKER) No fungi seen (test code = 1406) RAD, ABDOMEN/KUB, 1 VIEW [id number] 15:59:00Reason for exam:->assess for stool burdenShould this [...] blastic abnormalities are appreciated. Signed: Caio Arteaga Verified Date/Time: 09/13/2018 15:59:37 Reading Location: [facility] C013W Consult Reading Room CF RESPIRATORY [id number] 12:21:00 Test Item Value Reference Range Interpretation [...] 47) 2+ Normal respiratory maria del carmen [id number] 07:17:00 Test Item Value Reference Range Interpretation Comments PHOSPHORUS (BEAKER) (test code = 3.2 mg/dL 2.3-4.7 604) [id number] 07:17:00 Test Item Value Reference Range Interpretation Comments MAGNESIUM (BEAKER) (test code = 1.6 mg/dL 1.6-2.6 627) BASIC METABOLIC [id number] 07:17:00 Test Item Value Reference Range Interpretation [...] PATIEN TS. CBC W/PLT COUNT & AUTO [id number] 07:16:00 Test Item Value Reference Range Interpretation [...] 0-1 PERCENT (BEAKER) (test code = 2801) [id number] 12:19:00 Test Item Value Reference Range Interpretation Comments PHOSPHORUS (BEAKER) (test code = 3.3 mg/dL 2.3-4.7 604) [id number] 12:19:00 Test Item Value Reference Range Interpretation Comments MAGNESIUM (BEAKER) (test code = 2.1 mg/dL 1.6-2.6 627) BASIC METABOLIC [id number] 12:19:00 Test Item Value Reference Range Interpretation [...] PATIEN TS. CBC W/PLT COUNT & AUTO [id number] 11:54:00 Test Item Value Reference Range Interpretation [...] PERCENT (BEAKER) (test code = 2801) SPIN/CONCENTRATION [id number] 00:15:00 Test Item Value Reference Range Interpretation Comments CONCENTRATION CHARGED (BEAKER) (test Done code = 2657) CT, [id number] 21:49:00Reason for exam:->ABDOMINAL PAINWhat is the patient's [...] MDReport Verified Date/Time: 09/08/2018 21:49:11 Reading Location: [address] Reading Room URINALYSIS W/ [id number] 21:16:00 Test Item Value Reference Range Interpretation [...] 1574) SOURCE(BEAKER) (test code = Urine, Voided 1444) [id number] 19:36:00 Test Item Value Reference Range Interpretation Comments LIPASE (BEAKER) (test code = 749) 31 U/L 8-78 BASIC METABOLIC [id number] 19:36:00 Test Item Value Reference Range Interpretation [...] APPLICABLE FOR DIALYSIS PATIEN TS. HEPATIC FUNCTION [id number] 19:36:00 Test Item Value Reference Range Interpretation [...] (test code = 27 U/L 6-55 347) [id number] 19:30:00 Test Item Value Reference Range Interpretation Comments PARTIAL THROMBOPLASTIN TIME 28.5 seconds 22.5-36.0 (BEAKER) (test code = 760) PROTHROMBIN TIME/[id number] 19:29:00 Test Item Value Reference Range Interpretation [...] mechanical heart valves.CBC W/PLT COUNT & AUTO [id number] 19:22:00 Test Item Value Reference Range Interpretation [...] 0-1 PERCENT (BEAKER) (test code = 2801) [id number] 06:48:00 Test Item Value Reference Range Interpretation Comments PHOSPHORUS (BEAKER) (test code = 3.0 mg/dL 2.3-4.7 604) [id number] 06:48:00 Test Item Value Reference Range Interpretation Comments MAGNESIUM (BEAKER) (test code = 1.5 mg/dL 1.6-2.6 L 627) BASIC METABOLIC [id number] 06:48:00 Test Item Value Reference Range Interpretation [...] NOT APPLICABLE FOR DIALYSIS PATIEN TS. PROTHROMBIN [id number] 06:43:00 Test Item Value Reference Range Interpretation [...] code = 685) ALPHA FETOPROTEIN (AFP), TUMOR [id number] 13:38:00 Test Item Value Reference Range Interpretation Comments ALPHA-FETOPROTEIN (BEAKER) (test 2.2 ng/mL <10.0 code = 1094) RAD, CHEST, 1 VIEW, NON [id number] 16:08:00Reason for exam:->CFShould this be performed at the bedside?->YesFINAL REPORT CLINICAL HISTORY: CF TECHNIQUE: 1 view of the chest COMPARISON: 07/31/2018 IMPRESSION: There are no focal infiltrates or pleural effusions. The cardiomediastinal silhouette is within normal limits for size. The visualized bones are intact. Signed: Murray Gomezeport Verified Date/Time: 08/29/2018 16:08:13 Reading Location: [address] Consult Reading Room CT, [id number] 19:06:00Reason for exam:->abdominal painFINAL REPORT CT scan [...] MDReport Verified Date/Time: 08/28/2018 19:06:10 Reading Location: [facility] [address] Consult Reading Room [id number] 16:08:00 Test Item Value Reference Range Interpretation Comments LIPASE (BEAKER) (test code = 749) < U/L 8-78 L BASIC METABOLIC [id number] 15:57:00 Test Item Value Reference Range Interpretation [...] APPLICABLE FOR DIALYSIS PATIEN TS. HEPATIC FUNCTION [id number] 15:57:00 Test Item Value Reference Range Interpretation [...] 6-55 347) CBC W/PLT COUNT & AUTO [id number] 15:44:00 Test Item Value Reference Range Interpretation [...] PERCENT (BEAKER) (test code = 2801) BLOOD [id number] 18:01:00 Test Item Value Reference Range Interpretation Comments CULTURE (BEAKER) (test No growth in 5 days code = 1095) BLOOD [id number] 15:01:00 Test Item Value Reference Range Interpretation Comments CULTURE (BEAKER) A From Aerobi c Bottle (test code = Only Micrococcu s 1095) species GRAM STAIN RESULT From aerobic (BEAKER) (test bottle only: gram code = 1123) positive cocci in clusters BLOOD [id number] 18:00:00 Test Item Value Reference Range Interpretation Comments CULTURE (BEAKER) (test No growth in 5 days code = 1095) RAD, ABDOMEN/KUB, 1 VIEW [id number] 09:39:00Reason for exam:->f/u DIOSFINAL REPORT TECHNIQUE: Supine [...] MDReport Verified Date/Time: 08/03/2018 09:39:24 Reading Location: [facility] Radiology Reading Room RAD, ABDOMEN/KUB, 1 VIEW [...] MDReport Verified Date/Time: 08/02/2018 13:48:07 Reading Location: [place] [id number] Consult Reading Room [employer] CULTURE IDENTIFICATION [id number] 13:27:00 Test Item Value Reference Range Interpretation Comments LISTERIA MONOCYTOGENES (test Not detected Not detected code = 6112841) STAPHYLOCOCCUS (test code = Not detected Not detected 3900576) STAPHYLOCOCCUS AUREUS (test code Not detected Not detected = 8794668) STREPTOCOCCUS (test code = Not detected Not detected 2487157) STREPTOCOCCUS AGALACTIAE (GROUP Not detected Not detected B) (test code = 2569488) STREPTOCOCCUS PNEUMONIAE (test Not detected Not detected code = 5882082) STREPTOCOCCUS PYOGENES (GROUP A) Not detected Not detected (test code = 2965860) ACINETOBACTER BAUMANNII (test Not detected Not detected code = 5372126) HAEMOPHILUS INFLUENZAE (test Not detected Not detected code = 4925185) NEISSERIA MENINGITIDIS (test Not detected Not detected code = 6877592) ENTEROBACTERIACEAE (test code = Not detected Not detected 3047710) ENTEROBACTER CLOACOE COMPLEX Not detected Not detected (test code = 2314367) KLEBSIELLA OXYTOCA (test code = Not detected Not detected 8489617) KLEBSIELLA PNEUMONIAE (test code Not detected Not detected = 1650) PROTEUS (test code = 0357122) Not detected Not detected SERRATIA MARCESCENS (test code = Not detected Not detected 4086967) PADILLA ALBICANS (test code = Not detected Not detected 4078709) PADILLA GLABRATA (test code = Not detected Not detected 9445108) PADILLA KRUSEI (test code = Not detected Not detected 3899986) PADILLA PARAPSILOSIS (test code Not detected Not detected = 6262353) PADILLA TROPICALIS (test code = Not detected Not detected 4978702) ESCHERICHIA COLI (test code = Not detected Not detected 7015248) METHICILLIN-RESISTANCE GENE Not detected (test code = 2062239) VANCOMYCIN-RESISTANCE GENE (test Not detected code = 2569777) CARBAPENEM-RESISTANCE GENE (test Not detected code = 7996329) ENTEROCOCCUS-BEAKER (test code = Not detected Not detected 9203232) PSEUDOMONAS AERUGINOSA-BEAKER Not detected Not detected (test code = 3735082) Other bacteria and resistance markers not targeted by this PCR panel cannot be excluded; therefore clinical correlation and follow up of serology, culture results, and other molecular studies is required. The results are not intended to be used as the sole means for clinical diagnosis or patient management decisions. This sample was tested at the [facility] Molecular Diagnostics Laboratory using the [employer]listen Blood Culture ID Panel. It is FDA cleared and has been verified and approved by the [facility] Molecular Diagnostics Laboratory for clinical use. This laboratory is CLIA-certified and College ofAmerican Pathologists (CAP)-accredited to perform high complexity testing.BASIC METABOLIC [id number] 10:10:00 Test Item Value Reference Range Interpretation [...] PATIEN TS. CBC W/PLT COUNT & AUTO [id number] 09:30:00 Test Item Value Reference Range Interpretation [...] (test code = 2801) RAD, CHEST, 2 [id number] 20:55:00Reason for exam:->Cystic fibrosisFINAL REPORT TECHNIQUE: 2 [...] abnormality. Soft tissues appear unremarkable. Signed: Greg Reinaeport Verified Date/Time: 07/31/2018 20:55:36 Reading Location: [facility] Mammo Reading Room [facility] METABOLIC [id number] 06:51:00 Test Item Value Reference Range Interpretation [...] PATIEN TS. CBC W/PLT COUNT & AUTO [id number] 06:09:00 Test Item Value Reference Range Interpretation [...] (BEAKER) (test code = 2801) U/S, ABDOMINAL, [id number] 11:04:00Abdomen limited area? Add comment if clarification [...] MDReport Verified Date/Time: 07/30/2018 11:04:05 Reading Location: [address] Transitional Reading Room CT, [id number] 10:05:00Reason for exam:->Abdominal painWhat is the patient's [...] MDReport Verified Date/Time: 07/30/2018 10:05:17 Reading Location: [facility] C013Y CT Body Reading Room URINALYSIS WITH MICROSCOPIC IF [id number] 09:06:00 Test Item Value Reference Range Interpretation [...] = 463) SOURCE(BEAKER) (test code = 2795) [id number] 08:53:00 Test Item Value Reference Range Interpretation Comments LIPASE (BEAKER) (test code = 749) < U/L 8-78 L [id number] 08:53:00 Test Item Value Reference Range Interpretation [...] is 2.5-3.5 for patients with mechanical heart valves.[id number] 08:46:00 Test Item Value Reference Range Interpretation Comments MAGNESIUM (BEAKER) (test code = 1.6 mg/dL 1.6-2.6 627) COMPREHENSIVE METABOLIC [id number] 08:46:00 Test Item Value Reference Range Interpretation [...] PATIEN TS. CBC W/PLT COUNT & AUTO [id number] 08:34:00 Test Item Value Reference Range Interpretation [...] 3438) Received comment: User comments: Slide comments:CT, [id number] 18:32:00 Reason for exam:->ABDOMINAL PAINWhat is the [...] MDReport Verified Date/Time: 07/26/2018 18:32:08 Reading Location: [facility] C013Y CT Body Reading Room ALT (SGPT)2018-07-26 16:15:00 Test Item Value Reference Range Interpretation Comments ALT (SGPT) (BEAKER) (test code = 347) 40 U/L 6-55 AST (SGOT)2018-07-26 16:15:00 Test Item Value Reference Range Interpretation Comments AST (SGOT) (BEAKER) (test code = 353) 31 U/L 5-34 BASIC METABOLIC [id number] 16:15:00 Test Item Value Reference Range Interpretation [...] APPLICABLE FOR DIALYSIS PATIEN TS. BILIRUBIN, ADULT [id number] 16:15:00 Test Item Value Reference Range Interpretation Comments BILIRUBIN TOTAL (BEAKER) (test code 1.0 mg/dL 0.2-1.2 = 377) [id number] 16:15:00 Test Item Value Reference Range Interpretation Comments LIPASE (BEAKER) (test code = 749) < U/L 8-78 L CBC W/PLT COUNT & AUTO [id number] 16:00:00 Test Item Value Reference Range Interpretation [...] code = 2801) SPUTUM CULTURE + GRAM [id number] 08:14:00 Test Item Value Reference Range Interpretation [...] 0-5 epithelial (BEAKER) (test code cells = 837466) GRAM STAIN RESULT 1+ gram negative (BEAKER) (test code rods = 973515) GRAM STAIN RESULT 1+ gram positive (BEAKER) (test code rods = 766892) GRAM STAIN RESULT 1+ gram positive (BEAKER) (test code cocci in chains, = 217519) pairs and clusters <1+ Normal respiratory maria del carmen presentBLOOD [id number] 11:00:00 Test Item Value Reference Range Interpretation Comments CULTURE (BEAKER) (test No growth in 5 days code = 1095) BASIC METABOLIC [id number] 06:31:00 Test Item Value Reference Range Interpretation [...] 0-0 (BEAKER) (test code = 413) FL, [id number] 16:00:00Reason for exam:->CF with LIONEL, needs barium contrast enema.FINAL REPORT Gastrografin enema CLINICAL HISTORY: Cystic fibrosis with LIONEL DISCUSSION: Transit [employer] film of the abdomen demonstrates large amount [...] Verified Date/Time: 07/21/2018 16:00:52 Reading Location: [address] Consult Reading Room CREATININE, RANDOM [id number] 12:59:00 Test Item Value Reference Range Interpretation Comments CREATININE URINE (BEAKER) (test 88.2 mg/dL code = 375) Reference Range: No NormalsSODIUM, RANDOM [id number] 12:59:00 Test Item Value Reference Range Interpretation Comments SODIUM URINE (BEAKER) (test code = 167 meq/L 243) Reference Range: No NormalsURINALYSIS W/ [id number] 10:58:00 Test Item Value Reference Range Interpretation [...] 516) SOURCE(BEAKER) (test code = Urine, Voided 8144) TSH/FREE T4 IF [id number] 10:13:00 Test Item Value Reference Range Interpretation Comments THYROID STIMULATING HORMONE 1.64 uIU/mL 0.35-4.94 (BEAKER) (test code = 772) TROPONIN [id number] 10:04:00 Test Item Value Reference Range Interpretation [...] acute neurological disease, and persistent tachyarrhythmia.BASIC METABOLIC [id number] 05:36:00 Test Item Value Reference Range Interpretation [...] code = 413) RAD, ABDOMEN/KUB, 1 VIEW [id number] 16:20:00Reason for exam:->ileusFINAL REPORT Abdomen one view [...] MDReport Verified Date/Time: 07/20/2018 16:20:23 Reading Location: [address] Consult Reading Room [id number] 03:53:00 Test Item Value Reference Range Interpretation Comments MAGNESIUM (BEAKER) (test code = 1.7 mg/dL 1.6-2.6 627) BASIC METABOLIC [id number] 03:53:00 Test Item Value Reference Range Interpretation [...] PATIEN TS. CBC W/PLT COUNT & AUTO [id number] 03:31:00 Test Item Value Reference Range Interpretation [...] code = 2801) RAD, ABDOMEN/KUB, 1 VIEW [id number] 16:03:00Reason for exam:->obstruction FINAL REPORT Abdomen one [...] MDReport Verified Date/Time: 07/19/2018 16:03:55 Reading Location: [address] Consult Reading Room [id number] 05:28:00 Test Item Value Reference Range Interpretation Comments MAGNESIUM (BEAKER) (test code = 1.5 mg/dL 1.6-2.6 L 627) BASIC METABOLIC [id number] 05:28:00 Test Item Value Reference Range Interpretation [...] PATIEN TS. CBC W/PLT COUNT & AUTO [id number] 05:01:00 Test Item Value Reference Range Interpretation [...] code = 2801) RAD, ABDOMEN/KUB, 1 VIEW [id number] 08:45:00Reason for exam:->eval bowel obstructionFINAL REPORT Technique: [...] in the right lower quadrant. Signed: Sae Sims MDReport Verified Date/Time: 07/18/2018 08:45:55 Reading Location: [facility] Radiology Reading Room MAGNESIUM 2018-07-18 07:03:00 Test Item Value Reference Range Interpretation Comments MAGNESIUM (BEAKER) (test code = 1.5 mg/dL 1.6-2.6 L 627) BASIC METABOLIC [id number] 07:03:00 Test Item Value Reference Range Interpretation [...] PATIEN TS. CBC W/PLT COUNT & AUTO [id number] 06:37:00 Test Item Value Reference Range Interpretation [...] code = 2801) URINALYSIS W/ REFLEX URINE [id number] 22:24:00 Test Item Value Reference Range Interpretation [...] Occasional SOURCE(BEAKER) (test code = 2795) CT, [id number] 21:37:00Reason for exam:->ABDOMINAL PAINReason for exam:->CYSTIC FIBROSISWhat [...] cystic fibrosis. Nonobstructing left nephrolithiasis. Signed: Sofiya Dingeport Verified Date/Time: 07/17/2018 21:37:48 Reading Location: [facility] [address] [place] [address] Reading Room (CELLAVISION MANUAL DIFF)2018-07-17 20:15:00 Test [...] = 3438) Received comment: User comments: Slide comments:[id number] 20:05:00 Test Item Value Reference Range Interpretation Comments LIPASE (BEAKER) (test code = 749) < U/L 8-78 L COMPREHENSIVE METABOLIC [id number] 20:03:00 Test Item Value Reference Range Interpretation [...] PATIEN TS. CBC W/PLT COUNT & AUTO [id number] 19:57:00 Test Item Value Reference Range Interpretation [...] 0-1 PERCENT (BEAKER) (test code = 2801) [id number] 19:53:00 Test Item Value Reference Range Interpretation [...] is 2.5-3.5 for patients with mechanical heart valves.[id number] 05:38:00 Test Item Value Reference Range Interpretation Comments MAGNESIUM (BEAKER) (test code = 1.8 mg/dL 1.6-2.6 627) BASIC METABOLIC [id number] 05:38:00 Test Item Value Reference Range Interpretation [...] S NOT APPLICABLE FOR DIALYSIS PATIEN TS. [id number] 09:47:00 Test Item Value Reference Range Interpretation Comments MAGNESIUM (BEAKER) (test code = 1.3 mg/dL 1.6-2.6 L 627) BASIC METABOLIC [id number] 09:47:00 Test Item Value Reference Range Interpretation [...] NOT APPLICABLE FOR DIALYSIS PATIEN TS. HEMOGLOBIN [id number] 11:59:00 Test Item Value Reference Range Interpretation Comments HEMOGLOBIN A1C (BEAKER) (test code = 6.1 % 4.3-6.1 368) [id number] 05:49:00 Test Item Value Reference Range Interpretation Comments MAGNESIUM (BEAKER) (test code = 1.5 mg/dL 1.6-2.6 L 627) BASIC METABOLIC [id number] 05:49:00 Test Item Value Reference Range Interpretation [...] PATIEN TS. CBC W/PLT COUNT & AUTO [id number] 05:12:00 Test Item Value Reference Range Interpretation [...] PERCENT (BEAKER) (test code = 2801) CT, [id number] 19:56:00FINAL REPORT CT of the abdomen and pelvis, with contrast, 06/29/2018. History: Abdominal pain, vomiting, cystic fibrosis Comparison: None available. Technique: Multidetector CT scan sharan of the abdomen and pelvis was performed [...] MDReport Verified Date/Time: 06/29/2018 19:56:22 Reading Location: [address] ConsultReading Room [id number] 17:45:00 Test Item Value Reference Range Interpretation Comments LIPASE (BEAKER) (test code = 749) < U/L 8-78 L COMPREHENSIVE METABOLIC [id number] 17:45:00 Test Item Value Reference Range Interpretation [...] ATED GFR. CBC W/PLT COUNT & AUTO [id number] 17:13:00 Test Item Value Reference Range Interpretation [...] % 0-1 PERCENT (BEAKER) (test code = 8385)
--- NOTE | 2023-08-04 17:02 | RAD REPORT ---
EXAM DESCRIPTION: Nancy Single View08/04/2023 4:26 pm CLINICAL HISTORY: Abdominal pain COMPARISON: April 1023 FINDINGS: The lungs appear clear of acute infiltrate. The heart is normal size IMPRESSION: No acute abnormalities displayed
[2023-08-04] MEDS ORDERED: ONDANSETRON 4 MG/2 ML VIAL ONE (17:22)
[2023-08-04] MEDS ORDERED: NA CHLORIDE 0.9% 1,000 ML ONE (17:22)
[2023-08-04] MEDS ORDERED: FAMOTIDINE 20 MG/2 ML VIAL IV ONE (17:22)
[2023-08-04] MEDS ORDERED: MORPHINE 4 MG/ML SYR ONE (17:22)
[2023-08-04 18:13] LABS: Absolute Lymphocytes (CBC) 1.8 K/uL (0.7-4.9); Hematocrit 43.2 % (39.6-49.0); Lymphocytes % 33.1 % (15.3-44.8); MCV 92.4 fL (80-100); MPV 10.8 fL (7.6-11.3); Platelets 150 thou/uL (152-406); RBC Red Blood Cell Count 4.68 M/uL (4.33-5.43)
[2023-08-04 18:14] LABS: Protime INR 1.53
[2023-08-04 18:25] LABS: Albumin 3.8 g/dL (3.4-5.0); Bilirubin Direct 0.2 mg/dL (0-0.2); Bilirubin Indirect, Calculated 0.5 mg/dL (0.2-0.8); Bilirubin Total 0.7 mg/dL (0.2-1.0); Magnesium 1.6 mg/dL (1.6-2.4); Potassium 3.5 mEq/L (3.5-5.1); Protein, Total 7.7 g/dL (6.4-8.2); Troponin High Sensitivity 7.2 pg/mL (<58.9)
--- NOTE | 2023-08-04 18:39 | EDPHYS ---
Physician Documentation [facility] Name: Matt Robles Age: 47 yrs Sex: Male : 1975 Arrival Date: 08/04/2023 Time: 15:55 Bed 11 Private MD: ED Physician Chris Beltrán HPI: 08/04 18:29 This 47 yrs old Black Male presents to ER via Ambulatory with complaints of Abdominal lilia Pain, Nausea. 18:29 The patient presents to the emergency department with nausea, that is mild, that is lilia moderate, abdominal pain, of the right upper quadrant, left upper quadrant, right lower quadrant and left lower quadrant. Onset: The symptoms/episode began/occurred 3 day(s) ago. Possible causes: unknown, flare up of bowel problem, CYSTIC FIBROSIS. The symptoms are aggravated by nothing. food , The symptoms are alleviated by nothing. remaining still. Associated signs and symptoms: Pertinent positives: abdominal pain, nausea. Severity of symptoms: At their worst the symptoms were moderate in the emergency department the symptoms are unchanged. The patient has experienced similar episodes in the past, multiple times. Historical: - Allergies: 17:06 Toradol; ph - PMHx: 17:06 CYSTIC FIBROSIS; ileus; intestinal disorder; ph - PSHx: 17:06 Bilateral Inguinal Hernia Repair; ph - Immunization history:: Adult Immunizations unknown. - Social history:: Smoking status: Patient denies any tobacco usage or history of. ROS: 18:33 Constitutional: Negative for fever, chills, and weight loss, Eyes: Negative for injury, lilia pain, redness, and discharge, ENT: Negative for injury, pain, and discharge, Neck: Negative for injury, pain, and swelling, Cardiovascular: Negative for chest pain, palpitations, and edema, Respiratory: Negative for shortness of breath, cough, wheezing, and pleuritic chest pain, Back: Negative for injury and pain, : Negative for injury, bleeding, discharge, and swelling, MS/Extremity: Negative for injury and deformity, Skin: Negative for injury, rash, and discoloration, Neuro: Negative for headache, weakness, numbness, tingling, and seizure, Psych: Negative for depression, anxiety, suicide ideation, homicidal ideation, and hallucinations, Allergy/Immunology: Negative for hives, rash, and allergies, Endocrine: Negative for neck swelling, polydipsia, polyuria, polyphagia, and marked weight changes, Hematologic/Lymphatic: Negative for swollen nodes, abnormal bleeding, and unusual bruising, 18:33 Abdomen/GI: Positive for abdominal pain, nausea, abdominal cramps, abdominal distension, of the right upper quadrant, left upper quadrant, right lower quadrant and left lower quadrant, Exam: 18:33 Constitutional: This is a well developed, well nourished patient who is awake, alert, lilia and in no acute distress. Head/Face: Normocephalic, atraumatic. Eyes: Pupils equal round and reactive to light, extra-ocular motions intact. Lids and lashes normal. Conjunctiva and sclera are non-icteric and not injected. Cornea within normal limits. Periorbital areas with no swelling, redness, or edema. ENT: Nares patent. No nasal discharge, no septal abnormalities noted. Tympanic membranes are normal and external auditory canals are clear. Oropharynx with no redness, swelling, or masses, exudates, or evidence of obstruction, uvula midline. Mucous membranes moist. Neck: Trachea midline, no thyromegaly or masses palpated, and no cervical lymphadenopathy. Supple, full range of motion without nuchal rigidity, or vertebral point tenderness. No Meningismus. Chest/axilla: Normal chest wall appearance and motion. Nontender with no deformity. No lesions are appreciated. Cardiovascular: Regular rate and rhythm with a normal S1 and S2. No gallops, murmurs, or rubs. Normal PMI, no JVD. No pulse deficits. Respiratory: Lungs have equal breath sounds bilaterally, clear to auscultation and percussion. No rales, rhonchi or wheezes noted. No increased work of breathing, no retractions or nasal flaring. Back: No spinal tenderness. No costovertebral tenderness. Full range of motion. Male : Normal genitalia with no discharge or lesions. Skin: Warm, dry with normal turgor. Normal color with no rashes, no lesions, and no evidence of cellulitis. MS/ Extremity: Pulses equal, no cyanosis. Neurovascular intact. Full, normal range of motion. Neuro: Awake and alert, GCS 15, oriented to person, place, time, and situation. Cranial nerves II-XII grossly intact. Motor strength 5/5 in all extremities. Sensory grossly intact. Cerebellar exam normal. Normal gait. Psych: Awake, alert, with orientation to person, place and time. Behavior, mood, and affect are within normal limits. 18:33 ECG was reviewed by the Attending Physician. 18:33 Abdomen/GI: Inspection: distension, Bowel sounds: high pitched, all quadrants. Palpation: mild abdominal tenderness, in all quadrants, Liver: no appreciated palpable abnormalities, Hernia: not appreciated, Vital Signs: 17:04 Temp 97.7; Weight 70.76 kg; Height 6 ft. 1 in. ; ph 17:21 BP 151 / 87; Pulse 64; Resp 18; Pulse Ox 100% on R/A; ph 18:46 Pain 9/10; nj1 19:00 BP 115 / 88; Pulse 68; Resp 18; Pulse Ox 100% on R/A; Pain 10/10; nj1 20:00 BP 104 / 70; Pulse 65; Resp 16; Pulse Ox 99% on R/A; eh3 21:00 BP 119 / 92; Pulse 61; Resp 14; Pulse Ox 99% on R/A; eh3 17:04 Body Mass Index 20.58 (70.76 kg, 185.42 cm) ph 18:46 Pain Scale: Adult nj1 19:00 Pain Scale: Adult nj1 MDM: 16:11 Patient medically screened. lilia 18:35 Differential diagnosis: Nonspecific abd pain, gastritis, diverticulitis, viral lilia gastroenteritis, gastroenteritis, bowel obstruction, Cholelithiasis, diverticulitis, gastritis, gastroesophageal reflux disease, GI Bleed, Hepatitis, Mesenteric ischemia or infarction, non-specific abd pain, pancreatitis, Peptic Ulcer Disease, Peritonitis, Pyelonephritis, Ureterolithiasis, urinary tract infection. Data reviewed: vital signs, nurses notes, lab test result(s), EKG, radiologic studies, CT scan, plain films. Consideration of Admission/Observation Escalation of care including admission/observation considered. Management of patient was discussed with the following: Hospitalist: HOSPITALIST [facility]. I considered the following discharge prescriptions or medication management in the emergency department Medications were administered in the Emergency Department. See MAR. Independent interpretation of the following test(s) in the Emergency Department EKG: See my EKG interpretation above. Test considered but Not performed: Ultrasound NO ABD USG. Historians other than the Patient: PT WELL INFORMED. Care significantly affected by the following chronic conditions: CYSTIC FIBROSIS, ILEUS, ADYNAMIC. Counseling: I had a detailed discussion with the patient and/or guardian regarding the historical points, exam findings, and any diagnostic results supporting the discharge/admit diagnosis, lab results, radiology results, the need to transfer to another facility, for higher level of care, [facility] does not immediately have the required specialist, PT CHOICE. 08/04 16:12 Order name: Basic Metabolic Panel; Complete Time: 18:37 [facility] 08/04 16:12 Order name: CBC with Diff; Complete Time: 18:24 [facility] 08/04 16:12 Order name: LFT's; Complete Time: 18:37 [facility] 08/04 16:12 Order name: Magnesium; Complete Time: 18:37 [facility] 08/04 16:12 Order name: NT PRO-BNP; Complete Time: 18:37 [facility] 08/04 16:12 Order name: PT-INR; Complete Time: 18:24 [facility] 08/04 16:12 Order name: Troponin HS; Complete Time: 18:37 [facility] 08/04 16:12 Order name: Lipase; Complete Time: 18:37 [facility] 08/04 16:12 Order name: Urinalysis w/ reflexes; Complete Time: 19:23 [facility] 08/04 16:12 Order name: XRAY Chest (1 view); Complete Time: 18:24 [facility] 08/04 16:12 Order name: CT Abd/Pelvis - IV Contrast Only; Complete Time: 19:23 [facility] 08/04 16:12 Order name: EKG; Complete Time: 16:13 [facility] 08/04 16:12 Order name: Cardiac monitoring; Complete Time: 17:16 [facility] 08/04 16:12 Order name: EKG - Nurse/Tech; Complete Time: 18:05 [facility] 08/04 16:12 Order name: IV Saline Lock; Complete Time: 17:53 [facility] 08/04 16:12 Order name: Labs collected and sent; Complete Time: 17:53 [facility] 08/04 16:12 Order name: O2 Per Protocol; Complete Time: 17:16 [facility] 08/04 16:12 Order name: O2 Sat Monitoring; Complete Time: 17:16 08/04 17:23 Order name: Labs - recollect needed: recollect all tubes; Complete Time: 17:53 bd EC:33 Rate is 59 beats/min. Rhythm is regular. QRS [place] is Normal. CO interval is normal. QRS lilia interval is normal. QT interval is normal. No Q waves. T waves are Normal. No ST changes noted. Clinical impression: Sinus bradycardia and No evidence of ischemia. Interpreted by me. Reviewed by me. Administered Medications: 17:32 Drug: Ondansetron IVP 4 mg IVP once; over 2 minutes Route: IVP; Site: right upper arm; nj1 18:46 Follow up: Response: No adverse reaction nj1 17:32 Drug: NS 0.9% IV 1000 ml IV at 1 bolus Per protocol; 1000 mL bolus Route: IV; Rate: 1 nj1 bolus; Site: right upper arm; 19:00 Follow up: IV Status: Completed infusion; IV Intake: 1000ml nj1 17:34 Drug: Famotidine IVP 20 mg IVP once; dilute with 10 mL 0.9% NaCl; give over 2 minutes nj1 Route: IVP; Site: right upper arm; 18:46 Follow up: Response: No adverse reaction nj1 17:36 Drug: morphine IVP or IV 4 mg IVP once over 4 mins Route: IVP; Infused Over: 4 mins; nj1 Site: right upper arm; 18:46 Follow up: Pain 9/10 Adult; Response: No adverse reaction; Pain is decreased nj1 19:05 Drug: Magnesium Sulfate IVPB 1 grams IVPB once over 1 hrs Route: IVPB; Infused Over: 1 nj1 hrs; Site: right antecubital; 20:20 Follow up: Response: No adverse reaction; IV Status: Completed infusion; IV Intake: eh3 100ml 20:54 Drug: morphine IVP or IV 4 mg IVP once over 4 mins Route: IVP; Infused Over: 4 mins; bp Site: right antecubital; 22:52 Follow up: Response: No adverse reaction bp 20:54 Drug: Ondansetron IVP 4 mg IVP once; over 2 minutes Route: IVP; Site: right antecubital;bp 22:51 Follow up: Response: No adverse reaction bp Disposition Summary: 08/04/23 18:39 Transfer Ordered Notes: Transfer Location: [facility] lilia Reason: Higher level of care lilia Condition: Fair lilia Problem: an acute exacerbation lilia Symptoms: are unchanged lilia Accepting Physician: TO HOSPITALISTKAM(08/04/23 22:52) bp Diagnosis - Cystic fibrosis with other intestinal manifestations lilia - Cystic fibrosis, unspecified lilia - Abdominal pain, Generalized lilia - Nausea lilia Forms: - Medication Reconciliation Form lilia - SBAR form lilia Signatures: Dispatcher [employer] Debbie Lorenzo Corey, MD MD cha Hall, Patricia, RN RN Titus, Eamon RN RN bp Marlena Campa RN RN nj1 Da, [address] Corrections: (The following items were deleted from the chart) 22:52 18:39 TO HOSPITALIST, Yeni newton
--- NOTE | 2023-08-04 18:39 | ER ---
Nurse's Notes [facility] Name: Matt Robles Age: 47 yrs Sex: Male : 1975 Arrival Date: 08/04/2023 Time: 15:55 Bed 11 Private MD: Diagnosis: Cystic fibrosis with other intestinal manifestations;Cystic fibrosis, unspecified;Abdominal pain, Generalized;Nausea Presentation: 08/04 17:04 Chief complaint: Patient states: R sided abdominal pain and nausea that started today, ph denies vomiting or diarrhea. Coronavirus screen: Vaccine status: Patient reports receiving the 2nd dose of the covid vaccine. Ebola Screen: No symptoms or risks identified at this time. Risk Assessment: Do you want to hurt yourself or someone else? Patient reports no desire to harm self or others. 17:04 Method Of Arrival: Ambulatory ph 17:06 Acuity: BRENNA 3 ph 22:51 Initial Sepsis Screen: Does the patient meet any 2 criteria? No. Patient's initial bp sepsis screen is negative. Does the patient have a suspected source of infection? No. Patient's initial sepsis screen is negative. Onset of symptoms is unknown. Historical: - Allergies: 17:06 Toradol; ph - PMHx: 17:06 CYSTIC FIBROSIS; ileus; intestinal disorder; ph - PSHx: 17:06 Bilateral Inguinal Hernia Repair; ph - Immunization history:: Adult Immunizations unknown. - Social history:: Smoking status: Patient denies any tobacco usage or history of. Screenin:06 [facility] ED Fall Risk Assessment (Adult) History of falling in the last 3 months, ph including since admission No falls in past 3 months (0 pts). Abuse screen: Denies threats or abuse. Denies injuries from another. Nutritional screening: No deficits noted. Tuberculosis screening: No symptoms or risk factors identified. Assessment: 17:10 General: Appears in no apparent distress. uncomfortable, Behavior is calm, cooperative, nj1 appropriate for age. 17:10 Pain: Complains of pain in right lower quadrant Pain currently is 10 out of 10 on a nj1 pain scale. Pain began today. Neuro: Level of Consciousness is awake, alert, obeys commands, Oriented to person, place, time, situation. Cardiovascular: Patient's skin is warm and dry. Respiratory: Airway is patent Respiratory effort is even, unlabored. GI: Abdomen is round distended, Reports lower abdominal pain, bloating, nausea, Patient currently denies diarrhea, vomiting. 18:45 Reassessment: Patient appears in no apparent distress at this time. Patient and/or [facility] family updated on plan of care and expected duration. Pain level reassessed. Patient is alert, oriented x 3, equal unlabored respirations, skin warm/dry/pink. 19:15 General: Appears in no apparent distress. uncomfortable, Behavior is calm, cooperative, eh3 appropriate for age. Pain: Complains of pain in abdomen. Neuro: Level of Consciousness is awake, alert, obeys commands, Oriented to person, place, time, situation. Cardiovascular: Capillary refill < 3 seconds Patient's skin is warm and dry. Respiratory: Airway is patent Respiratory effort is even, unlabored, Respiratory pattern is regular, symmetrical. GI: Abdomen is round distended, Bowel sounds hypoactive in right upper quadrant, left upper quadrant, right lower quadrant and left lower quadrant Abdomen is tender to palpation X 4 quads. Derm: Skin is pink, warm \T\ dry. Musculoskeletal: Circulation, motion, and sensation intact. 20:00 Reassessment: Patient appears in no apparent distress at this time. Patient and/or 3 family updated on plan of care and expected duration. Pain level reassessed. Patient is alert, oriented x 3, equal unlabored respirations, skin warm/dry/pink. 20:45 Reassessment: Nurse to nurse report received by JAD Hutton at [facility]. 3 21:00 Reassessment: Patient appears in no apparent distress at this time. Patient and/or [facility] family updated on plan of care and expected duration. Pain level reassessed. Patient is alert, oriented x 3, equal unlabored respirations, skin warm/dry/pink. Vital Signs: 17:04 Temp 97.7; Weight 70.76 kg; Height 6 ft. 1 in. ; ph 17:21 BP 151 / 87; Pulse 64; Resp 18; Pulse Ox 100% on R/A; ph 18:46 Pain 9/10; nj1 19:00 BP 115 / 88; Pulse 68; Resp 18; Pulse Ox 100% on R/A; Pain 10/10; nj1 20:00 BP 104 / 70; Pulse 65; Resp 16; Pulse Ox 99% on R/A; eh3 21:00 BP 119 / 92; Pulse 61; Resp 14; Pulse Ox 99% on R/A; eh3 17:04 Body Mass Index 20.58 (70.76 kg, 185.42 cm) ph 18:46 Pain Scale: Adult nj1 19:00 Pain Scale: Adult nj ED Course: 15:56 Patient arrived in ED. rg4 16:11 Chris Beltrán MD is Attending Physician. lilia 16:28 XRAY Chest (1 view) In Process Unspecified. EDMS 16:45 Patient's name was called from ER lobby. No response. ph 17:03 Marlena Campa, JAD is Primary Nurse. nj1 17:06 Triage completed. ph 17:22 Missed attempt(s): 22 gauge in right forearm. Bleeding controlled, band aid applied, ph catheter tip intact. Missed attempt(s): 20 gauge in left forearm. Bleeding controlled, band aid applied, catheter tip intact. 17:30 Inserted saline lock: 20 gauge in right upper arm, using aseptic technique. ,using nj aseptic technique. Ultrasound guided. Catheter tip well visualized within vasculature during placement. Blood collected. 18:30 Initiated transfer with Darrell at [facility]. rv1 18:51 CT Abd/Pelvis - IV Contrast Only In Process Unspecified. EDMS 19:[address]. nj1 19:15 Patient has correct armband on for positive identification. Bed in low position. Call eh3 light in reach. Side rails up X2. Provided Education on: Use of call haynes. Pulse ox on. NIBP on. 20:[address] Murphy to [facility] rm [id number]. rv1 22:51 No provider procedures requiring assistance completed. Patient transferred, IV remains bp in place. Administered Medications: 17:32 Drug: Ondansetron IVP 4 mg IVP once; over 2 minutes Route: IVP; Site: right upper arm; nj1 18:46 Follow up: Response: No adverse reaction nj1 17:32 Drug: NS 0.9% IV 1000 ml IV at 1 bolus Per protocol; 1000 mL bolus Route: IV; Rate: 1 nj1 bolus; Site: right upper arm; 19:00 Follow up: IV Status: Completed infusion; IV Intake: 1000ml nj1 17:34 Drug: Famotidine IVP 20 mg IVP once; dilute with 10 mL 0.9% NaCl; give over 2 minutes nj1 Route: IVP; Site: right upper arm; 18:46 Follow up: Response: No adverse reaction nj1 17:36 Drug: morphine IVP or IV 4 mg IVP once over 4 mins Route: IVP; Infused Over: 4 mins; nj1 Site: right upper arm; 18:46 Follow up: Pain 9/10 Adult; Response: No adverse reaction; Pain is decreased nj1 19:05 Drug: Magnesium Sulfate IVPB 1 grams IVPB once over 1 hrs Route: IVPB; Infused Over: 1 nj1 hrs; Site: right antecubital; 20:20 Follow up: Response: No adverse reaction; IV Status: Completed infusion; IV Intake: eh3 100ml 20:54 Drug: morphine IVP or IV 4 mg IVP once over 4 mins Route: IVP; Infused Over: 4 mins; bp Site: right antecubital; 22:52 Follow up: Response: No adverse reaction bp 20:54 Drug: Ondansetron IVP 4 mg IVP once; over 2 minutes Route: IVP; Site: right antecubital;bp 22:51 Follow up: Response: No adverse reaction bp Intake: 19:00 IV: 1000ml; Total: 1000ml. nj1 20:20 IV: 100ml; Total: 1100ml. eh3 Outcome: 18:39 ER care complete, transfer ordered by . lilia 22:51 Transferred by ground EMS to [facility], Transfer form completed. bp 22:51 Condition: stable 22:51 Instructed on the need for transfer, 22:52 Patient left the ED. bp Signatures: Dispatcher [employer] EDChris Jon MD MD cha Hall, Patricia, RN RN kaushal Moses, Lyn rg4 Eamon Qureshi RN RN bp Hall, Erin, RN RN 3 Zhane Bills rv1 Marlena Campa RN RN nj1
[2023-08-04] MEDS ORDERED: MAGNESIUM SULFATE 1 gm IVPB 1 GM/100 ML BAG IV ONE (19:02)
--- NOTE | 2023-08-04 19:08 | RAD REPORT ---
EXAM DESCRIPTION: CT - Abdomen Pelvis W Contrast - 08/04/2023 6:50 pm CLINICAL HISTORY: Abdominal pain COMPARISON: April 2023 and 2021 TECHNIQUE: Computed axial tomography of the abdomen pelvis was obtained. 100 cc Isovue-300 was admin istered intravenously. Oral contrast was not requested which limits evaluation of bowel and appendix All CT scans are performed using dose optimization technique as appropriate and may include automated exposure control or mA/KV adjustment according to patient size. FINDINGS: The liver, spleen, adrenals and kidneys unremarkable Atrophic pancreas Large amount stool is present throughout colon. The entire colon is mildly dilated. The dilatation jack s present on multiple prior There is no evidence of diverticulitis. IMPRESSION: Large amount stool is present throughout colon. The entire colon is mildly dilated. This may represent pseudo-obstruction or adynamic ileus
[2023-08-04 19:20] LABS: Urine Bilirubin NEGATIVE (Negative); Urine Blood Negative (Negative); Urine Clarity Clear (Clear); Urine Color Light-Yellow (Yellow); Urine Glucose NEGATIVE (Negative); Urine Protein NEGATIVE (Negative); Urine Urobilinogen Normal (Normal); Urine pH 5.5 (5.0-7.0)
[2023-08-04] MEDS ORDERED: HYDROMORPHONE HCL 1 MG/ML INJ ONE (21:00)
[2023-08-04 23:21] VITALS: TEMP 97.7
[2023-08-04 23:25] VITALS: O2SAT 99
[2023-08-04 23:26] VITALS: BP 119/92
--- NOTE | 2023-08-05 15:45 | EKG ---
Test Date: 2023-08-04 Test Time: 18:01:07 Wire Bound Box Machine Operator: VERONICA MEASUREMENT RESULTS: Intervals: Rate: 59 TN: 146 QRSD: 86 QT: 414 QTc: 409 [place]: P: 76 TN: 146 QRS: 73 T: 64 INTERPRETIVE STATEMENTS: Sinus bradycardia with sinus arrhythmia ST elevation, consider early repolarization, pericarditis, or injury T wave abnormality, consider anterior ischemia Abnormal ECG Compared to ECG 04/10/2023 20:34:55 ST (T wave) deviation now present T-wave abnormality now present Possible ischemia now present Electronically Signed On 08-05-23 15:42:30 CDT by Jacques Mcguire
== END 2023-08-04 22:52 | disposition short-term general hospital (02) ==
LOC: ER 15:55
DX: E84.19 Cystic fibrosis with other intestinal manifestations (principal); R11.0 Nausea
CPT/HCPCS: 85025; 80048; 36415; 83735; 85610; 80076; 81003; 84484; 83690; 83880; 74177; 71045; Q9967; J3475; J1170; J2405; J7030; 93005

== ENCOUNTER → 2023-10-05 | Emergency (ER) | payer OTHER ==
[~2023-10-05] MED LIST: MORPHINE 4 MG/ML SYR ONE; ONDANSETRON 4 MG/2 ML VIAL ONE
[2023-10-05 14:32] LABS: Absolute Lymphocytes (CBC) 1.7 K/uL (0.7-4.9); Hematocrit 37.1 % (39.6-49.0); Lymphocytes % 34.9 % (15.3-44.8); MCV 92.8 fL (80-100); MPV 9.6 fL (7.6-11.3); Platelets 180 thou/uL (152-406)
[2023-10-05 14:36] LABS: Protime INR 1.3
[2023-10-05 14:49] LABS: ALT/SGPT 32 U/L (16-61); AST/SGOT 19 U/L (15-37); Albumin 3.4 g/dL (3.4-5.0); Alkaline Phosphatase 85 U/L (45-117); BUN Blood Urea Nitrogen 17 mg/dL (7-18); Bicarbonate 25 mEq/L (21-32); Bilirubin Total 1.1 mg/dL (0.2-1.0); Glomerular Filtration Rate 70 ml/min (=/>90); Glucose Level 78 mg/dL (74-106); Potassium 4.2 mEq/L (3.5-5.1); Sodium Level 136 mEq/L (136-145)
[2023-10-05 14:59] LABS: Lipase < 6 U/L (13-75)
--- NOTE | 2023-10-05 15:35 | RAD REPORT ---
EXAM DESCRIPTION: CTAbdomen Pelvis W Contrast - 10/05/2023 3:23 pm CLINICAL HISTORY: Abdominal pain. ileus vs SBO;Abd pain COMPARISON: Abdomen Pelvis W Contrast dated 08/04/2023; Abdomen Pelvis W Contrast dated 04/10/2023 ; Abdomen Pelvis W Contrast dated 02/20/2023 TECHNIQUE: Biphasic CT imaging of the abdomen and pelvis was performed with 100 ml non-ionic IV cont rast. All CT scans are performed using dose optimization technique as appropriate and may include automated exposure control or mA/KV adjustment according to patient size. FINDINGS: The lung bases are clear. There is mild nodular contour to the hepatic parenchyma. No aggressive lesion or biliary dilatation. The spleen, adrenal glands and kidneys are within normal limits. Pancreatic atrophy is present. There is a large amount of stool throughout the colon which is distended. Multiple distended small jared wel loops also present which are fluid-filled. No pneumatosis or free air. No intra-abdominal fluid collections or abscess. No evidence of significant lymphadenopathy. No suspicious bony findings. IMPRESSION: Prominent distended and fluid-filled small bowel loops in the central abdomen. There is significant fecal retention throughout distended colon as well. This is probably related to ileus/abn ormal transit.
[2023-10-05 15:48] LABS: Specific Gravity 1.025 (1.005-1.030); Urine Bilirubin NEGATIVE (Negative); Urine Blood Negative (Negative); Urine Clarity Clear (Clear); Urine Color Light-Yellow (Yellow); Urine Glucose NEGATIVE (Negative); Urine Protein NEGATIVE (Negative); Urine Urobilinogen Normal (Normal); Urine pH 5.5 (5.0-7.0)
--- NOTE | 2023-10-05 16:00 | ER ---
Nurse's Notes [facility] Name: Matt Robles Age: 47 yrs Sex: Male : 1975 Arrival Date: 10/05/2023 Time: 13:06 Bed 19 Private MD: Diagnosis: Ileus, unspecified;Cystic fibrosis with other intestinal manifestations Presentation: 10/05 13:25 Chief complaint: Abdominal pain and bloating x 2 days. Hx of bowel obstruction and hb ilius multiple times. Coronavirus screen: At this time, the client does not indicate any symptoms associated with coronavirus-19. Ebola Screen: No symptoms or risks identified at this time. Initial Sepsis Screen: Does the patient meet any 2 criteria? No. Patient's initial sepsis screen is negative. Does the patient have a suspected source of infection? No. Patient's initial sepsis screen is negative. Risk Assessment: Do you want to hurt yourself or someone else? Patient reports no desire to harm self or others. Onset of symptoms was October 03, 2023. 13:25 Method Of Arrival: Ambulatory hb 13:25 Acuity: BRENNA 3 hb Historical: - Allergies: 13:27 Toradol; hb - PMHx: 13:27 CYSTIC FIBROSIS; ileus; hb 16:38 Crohn's disease; kc6 - PSHx: 13:27 Bilateral Inguinal Hernia Repair; hb Screenin:30 [facility] ED Fall Risk Assessment (Adult) History of falling in the last 3 months, kc6 including since admission No falls in past 3 months (0 pts) Confusion or Disorientation No (0 pts) Intoxicated or Sedated No (0 pts) Impaired Gait No (0 pts) Mobility Assist Device Used No (0 pt) Altered Elimination No (0 pt) Score/Fall Risk Level 0 - 2 = Low Risk. Abuse screen: Denies threats or abuse. Denies injuries from another. Nutritional screening: No deficits noted. Tuberculosis screening: No symptoms or risk factors identified. Assessment: 13:30 General: Appears in no apparent distress. comfortable, well groomed, well developed, kc6 Behavior is calm, cooperative, appropriate for age. Pain: Complains of pain in abdomen. Neuro: Level of Consciousness is awake, alert, obeys commands, Oriented to person, place, time, situation, Appropriate for age. Cardiovascular: Capillary refill < 3 seconds. Respiratory: Airway is patent Trachea midline Respiratory effort is even, unlabored, Respiratory pattern is regular, symmetrical. GI: Abdomen is flat, non-distended, Bowel sounds present X 4 quads. Abd is soft X 4 quads Reports constipation, nausea, vomiting. : No signs and/or symptoms were reported regarding the genitourinary system. EENT: No signs and/or symptoms were reported regarding the EENT system. Derm: No signs and/or symptoms reported regarding the dermatologic system. Skin is intact, is healthy with good turgor, Skin is pink, warm \T\ dry. Musculoskeletal: No signs and/or symptoms reported regarding the musculoskeletal system. Circulation, motion, and sensation intact. Capillary refill < 3 seconds, Range of motion: intact in all extremities. 14:30 Reassessment: Patient appears in no apparent distress at this time. No changes from kc6 previously documented assessment. Patient and/or family updated on plan of care and expected duration. Pain level reassessed. Patient is alert, oriented x 3, equal unlabored respirations, skin warm/dry/pink. 15:30 Reassessment: Patient appears in no apparent distress at this time. No changes from kc6 previously documented assessment. Patient and/or family updated on plan of care and expected duration. Pain level reassessed. Patient is alert, oriented x 3, equal unlabored respirations, skin warm/dry/pink. 16:28 Reassessment: Patient appears in no apparent distress at this time. No changes from kc6 previously documented assessment. Patient and/or family updated on plan of care and expected duration. Pain level reassessed. Patient is alert, oriented x 3, equal unlabored respirations, skin warm/dry/pink. Vital Signs: 13:25 BP 149 / 98; Pulse 83; Resp 16; Temp 98.4(O); Pulse Ox 100% on R/A; Weight 70.31 kg; hb Height 6 ft. 1 in. ; Pain 10/10; 15:14 BP 103 / 80; Pulse 80; Resp 16 S; Pulse Ox 100% on R/A; kc6 16:29 BP 114 / 71; Pulse 55; Resp 16 S; Pulse Ox 99% on R/A; kc6 13:25 Body Mass Index 20.45 (70.31 kg, 185.42 cm) hb 13:25 Pain Scale: Adult hb ED Course: 13:08 Patient arrived in ED. mr 13:09 [facility] sb4 13:09 Morteza Lee MD is Attending Physician. sb4 13:25 Jaquelin Pizarro, JAD is Primary Nurse. kc6 13:27 Triage completed. hb 13:30 Patient has correct armband on for positive identification. Bed in low position. Call kc6 light in reach. Side rails up X 1. Client placed on continuous cardiac and pulse oximetry monitoring. NIBP monitoring applied. 13:53 Missed attempt(s): 22 gauge in right forearm. Missed attempt(s): 22 gauge in right kc6 wrist. Patient maintains SpO2 saturation greater than 95% on room air. 14:10 Initial lab(s) drawn, by me, sent to lab. First set of blood cultures drawn by me. hb 14:16 Inserted saline lock: 20 gauge in right forearm, using aseptic technique. Blood hb collected. Ultrasound IV. 14:17 Magnesium Sent. hb 14:17 PT-INR Sent. hb 14:17 Lactate w/ 2H reflex if indic. Sent. hb 14:17 CBC with Diff Sent. hb 14:17 CMP Sent. hb 14:17 Lipase Sent. hb 15:24 CT Abd/Pelvis - IV Contrast Only In Process Unspecified. EDMS 16:06 Initiated transfer to [facility]. mc5 Administered Medications: 15:21 Drug: Ondansetron IVP 4 mg IVP once; over 2 minutes Route: IVP; Site: left forearm; kd3 16:29 Follow up: Response: No adverse reaction; Nausea is decreased kc6 15:22 Drug: morphine IVP or IV 4 mg IVP once over 4 mins Route: IVP; Infused Over: 4 mins; kd3 Site: left forearm; 16:29 Follow up: Response: No adverse reaction; Pain is decreased; RASS: Alert and Calm (0) kc6 17:32 Drug: morphine IVP or IV 4 mg IVP once over 4 mins Route: IVP; Infused Over: 4 mins; kc6 Site: right forearm; Outcome: 16:00 ER care complete, transfer ordered by . sb4 17:34 Patient left the ED. sb4 Signatures: Dispatcher [employer] EDMN Betzy Jansen, Reg Reg Kari Harris, RN RN Carrie Gill RN RN kd3 Jaquelin Pizarro RN RN kc6 Angie Patel, PAJeannie PAJeannie [email or web address] Yin Zaman mc5 Corrections: (The following items were deleted from the chart) 16:38 13:27 PMHx: intestinal disorder; hb kc6
--- NOTE | 2023-10-05 16:00 | EDPHYS ---
Physician Documentation [facility] Name: Matt Robles Age: 47 yrs Sex: Male : 1975 Arrival Date: 10/05/2023 Time: 13:06 Bed 19 Private MD: ED Physician Morteza Lee HPI: 10/05 13:18 This 47 yrs old Black Male presents to ER via Unassigned with complaints of Abdominal sb4 Distention, Abdominal Pain, Constipation. 13:18 The patient presents with abdominal pain abdominal distention that is diffuse. Onset: sb4 The symptoms/episode began/occurred yesterday. The symptoms do not radiate. Associated signs and symptoms: Pertinent positives: constipation, nausea, vomiting. The patient has experienced similar episodes in the past, multiple times, today's symptoms are similar. Patient with history of cystic fibrosis with recurrent ileus presents with complaints of abdominal distention/pain. States that he has not had a BM in 1 week. States the pain started yesterday and he did have an episode of vomiting. Historical: - Allergies: 13:27 Toradol; hb - PMHx: 13:27 CYSTIC FIBROSIS; ileus; hb 16:38 Crohn's disease; kc6 - PSHx: 13:27 Bilateral Inguinal Hernia Repair; hb ROS: 13:18 Constitutional: Negative for fever, chills, and weight loss, sb4 13:18 Abdomen/GI: Positive for abdominal pain, nausea and vomiting, constipation, abdominal distension, 13:18 All other systems are negative, Exam: 13:18 Constitutional: This is a well developed, well nourished patient who is awake, alert, sb4 and in no acute distress. Head/Face: Normocephalic, atraumatic. Eyes: Extra-ocular motions intact. Periorbital areas with no swelling, redness, or edema. ENT: Mucous membranes moist. Cardiovascular: Regular rate and rhythm with a normal S1 and S2. Respiratory: Lungs have equal breath sounds bilaterally, clear to auscultation and percussion. No rales, rhonchi or wheezes noted. No increased work of breathing, no retractions or nasal flaring. Skin: Warm, dry with normal turgor. Normal color with no rashes, no lesions, and no evidence of cellulitis. MS/ Extremity: Pulses equal, no cyanosis. Neurovascular intact. Full, normal range of motion. Neuro: Awake and alert, GCS 15, oriented to person, place, time, and situation. Motor strength 5/5 in all extremities. Sensory grossly intact. 13:18 Abdomen/GI: Inspection: distension, that is moderate, in the right upper quadrant, left upper quadrant, right lower quadrant and left lower quadrant, Bowel sounds: hyperactive, in the left upper quadrant, diminished, in the right lower quadrant and left lower quadrant, Palpation: mild abdominal tenderness, in all quadrants, Vital Signs: 13:25 BP 149 / 98; Pulse 83; Resp 16; Temp 98.4(O); Pulse Ox 100% on R/A; Weight 70.31 kg; hb Height 6 ft. 1 in. ; Pain 10/10; 15:14 BP 103 / 80; Pulse 80; Resp 16 S; Pulse Ox 100% on R/A; kc6 16:29 BP 114 / 71; Pulse 55; Resp 16 S; Pulse Ox 99% on R/A; kc6 13:25 Body Mass Index 20.45 (70.31 kg, 185.42 cm) hb 13:25 Pain Scale: Adult hb MDM: 13:17 Patient medically screened. sb4 13:18 Differential diagnosis: bowel obstruction, constipation, ileus. sb4 15:59 Data reviewed: vital signs, nurses notes, lab test result(s), radiologic studies, I sb4 have discussed the patient's presentation/case with the attending Emergency Department Physician;. Care significantly affected by the following chronic conditions: cystic fibrosis. Counseling: I had a detailed discussion with the patient and/or guardian regarding the historical points, exam findings, and any diagnostic results supporting the discharge/admit diagnosis, lab results, radiology results, the need to transfer to another facility, for higher level of care, [facility] does not immediately have the required specialist. 16:01 ED course: patient with recurrent ileus. states these exacerbations are treated by his sb4 medical team at [facility] and is requesting to be transferred. 16:35 Management of patient was discussed with the following: Hospitalist: Dr. Lopes, sb4 hospitalist at [facility], accepts patient . 10/05 13:17 Order name: CBC with Diff; Complete Time: 14:35 sb4 10/05 13:17 Order name: CMP; Complete Time: 15:00 sb4 10/05 13:17 Order name: Lipase; Complete Time: 15:00 sb4 10/05 13:17 Order name: Urinalysis w/ reflexes; Complete Time: 15:54 sb4 10/05 13:17 Order name: Blood Culture Adult (2) sb4 10/05 13:17 Order name: Lactate w/ 2H reflex if indic.; Complete Time: 15:00 sb4 10/05 13:17 Order name: PT-INR; Complete Time: 14:36 sb4 10/05 13:22 Order name: Magnesium; Complete Time: 14:53 sb4 10/05 13:17 Order name: CT Abd/Pelvis - IV Contrast Only; Complete Time: 15:37 sb4 10/05 13:17 Order name: IV Saline Lock; Complete Time: 14:17 sb4 10/05 13:17 Order name: Labs collected and sent; Complete Time: 14:17 sb4 10/05 13:17 Order name: NPO; Complete Time: 13:25 sb4 Administered Medications: 15:21 Drug: Ondansetron IVP 4 mg IVP once; over 2 minutes Route: IVP; Site: left forearm; kd3 16:29 Follow up: Response: No adverse reaction; Nausea is decreased kc6 15:22 Drug: morphine IVP or IV 4 mg IVP once over 4 mins Route: IVP; Infused Over: 4 mins; kd3 Site: left forearm; 16:29 Follow up: Response: No adverse reaction; Pain is decreased; RASS: Alert and Calm (0) kc6 17:32 Drug: morphine IVP or IV 4 mg IVP once over 4 mins Route: IVP; Infused Over: 4 mins; kc6 Site: right forearm; Disposition Summary: 10/05/23 16:00 Transfer Ordered Notes: Transfer Location: [facility] sb4 Reason: Higher level of care sb4 Condition: Fair sb4 Problem: an acute exacerbation sb4 Symptoms: are unchanged sb4 Accepting Physician: Dr. Lopes(10/05/23 17:34) sb4 Diagnosis - Ileus, unspecified sb4 - Cystic fibrosis with other intestinal manifestations sb4 Forms: - Medication Reconciliation Form sb4 - SBAR form sb4 Addendum: 10/08/2023 09:09 Co-signature as Attending Physician, Morteza Lee MD I reviewed the patient's care r n provided by the Advanced Practice Provider and agree with the diagnosis and treatment plan. Signatures: Dispatcher [employer] Morteza Taveras MD MD rn Baxter, Heather RN RN Carrie Mann RN RN kd3 Jaquelin Pizarro RN RN kc6 Angie Patel, PAJeannie PAJeannie sb4 Corrections: (The following items were deleted from the chart) 10/05 16:35 16:00 Dr. Live sb4 sb4 16:38 13:27 PMHx: intestinal disorder; kc6 17:34 16:35 Dr. Lopes sb4 sb4
[2023-10-05 18:19] VITALS: TEMP 98.4
[2023-10-05 18:26] VITALS: BP 114/71; O2SAT 99
== END ==
LOC: ER 13:06
DX: K56.7 Ileus, unspecified (principal); E84.19 Cystic fibrosis with other intestinal manifestations; Z88.5 Allergy status to narcotic agent
CPT/HCPCS: 87040 ×2; 85025; 36415; 83735; 85610; 83605; 81003; 83690; 80053; 74177; 99284; Q9967; J2405

== ENCOUNTER 2023-12-15 16:43 | Inpatient (IN) | payer OTHER ==
[2023-12-15 18:31] LABS: Absolute Eosinophils 0.2 K/uL (0-0.5); Absolute Lymphocytes (CBC) 1.3 K/uL (0.7-4.9); Basophils % 0.8 % (0-1.3); Eosinophils % 3.6 % (0-4.4); Hematocrit 36.7 % (39.6-49.0); Hemoglobin 12.5 g/dL (13.6-17.9); Lymphocytes % 23.8 % (15.3-44.8); MCV 91.2 fL (80-100); MPV 9.6 fL (7.6-11.3); Platelets 207 thou/uL (152-406); RBC Red Blood Cell Count 4.03 M/uL (4.33-5.43)
[2023-12-15 18:46] LABS: ALT/SGPT 25 U/L (16-61); AST/SGOT 17 U/L (15-37); Albumin 3.3 g/dL (3.4-5.0); Alkaline Phosphatase 92 U/L (45-117); BUN Blood Urea Nitrogen 14 mg/dL (7-18); Bicarbonate 29 mEq/L (21-32); Bilirubin Total 0.8 mg/dL (0.2-1.0); Globulin 3.4 g/dL (2.3-3.5); Glomerular Filtration Rate 57 ml/min (=/>90); Glucose Level 72 mg/dL (74-106); Protein, Total 6.7 g/dL (6.4-8.2); Sodium Level 140 mEq/L (136-145)
[2023-12-15 18:49] LABS: Lipase < 6 U/L (13-75)
[2023-12-15] MEDS ORDERED: MORPHINE 4 MG/ML SYR ONE (19:03)
[2023-12-15] MEDS ORDERED: ONDANSETRON 4 MG/2 ML VIAL ONE (19:03)
--- NOTE | 2023-12-15 19:58 | RAD REPORT ---
EXAM DESCRIPTION: CT - Abdomen Pelvis W Contrast - 12/15/2023 7:13 pm CLINICAL HISTORY: ABD PAIN COMPARISON: Abdomen Pelvis W Contrast dated 10/05/2023; Abdomen Pelvis W Contrast dated 08/04/20 23; Abdomen Pelvis W Contrast dated 04/10/2023; Abdomen Pelvis W Contrast dated 02/20/2023 TECHNIQUE: Thin cut axial CT imaging of the abdomen and pelvis was performed following intravenous a dministration of 100 mL Isovue 300. Multiplanar reformats were generated and reviewed. All CT scans are performed using dose optimization technique as appropriate and may include automated exposure control or mA/KV adjustment according to patient size. FINDINGS: No suspicious findings in the lung bases. The liver, spleen, adrenal glands, and pancreas show no suspicious findings. Gallbladder and biliary tree are also without suspicious finding. Symmetric renal function is seen with no hydronephrosis or suspicious renal mass. Mild fluid distention throughout the small bowel loops. Short-segment air-fluid levels. No focal crenshaw sition point. Anastomotic suture line at the right flank suggestive of prior proximal colectomy. No b owel wall thickening. No free air, free fluid or inflammatory stranding. No hernia, mass or bulky lym phadenopathy. The urinary bladder is without significant finding. No suspicious bony findings. IMPRESSION: Findings suggestive of ileus throughout the small bowel. Patent ileocolic anastomosis.
--- NOTE | 2023-12-15 20:17 | ER ---
Nurse's Notes [facility] Name: Matt Robles Age: 48 yrs Sex: Male : 1975 Arrival Date: 12/15/2023 Time: 16:43 Bed 18 Private MD: Diagnosis: Paralytic ileus;Cystic fibrosis with gastrointestinal manifestations. Acute ileus, abdominal pain Presentation: 12/14 17:13 Chief complaint: Patient states: I started having abdominal pain and bloating just like kd3 before. I feel very nauseous but i have not vomited. Coronavirus screen: Vaccine status: Patient reports being unvaccinated. Ebola Screen: No symptoms or risks identified at this time. Initial Sepsis Screen: Does the patient meet any 2 criteria? No. Patient's initial sepsis screen is negative. Does the patient have a suspected source of infection? No. Patient's initial sepsis screen is negative. Risk Assessment: Do you want to hurt yourself or someone else? Patient reports no desire to harm self or others. Onset of symptoms was December 15, 2023. 17:13 Method Of Arrival: Ambulatory kd3 17:13 Acuity: BRENNA 3 kd3 Triage Assessment: 17:13 General: Appears in no apparent distress. Behavior is calm, cooperative. Pain: kd3 Complains of pain in abdomen. GI: Abdomen is distended. Historical: - Allergies: 17:13 Toradol; kd3 - PMHx: 17:13 Crohn's Disease; CYSTIC FIBROSIS; ileus; kd3 - PSHx: 17:13 Bilateral Inguinal Hernia Repair; kd3 - Immunization history:: Adult Immunizations up to date. - Social history:: Smoking status: Patient denies any tobacco usage or history of. Screenin:27 [facility] ED Fall Risk Assessment (Adult) History of falling in the last 3 months, me1 including since admission No falls in past 3 months (0 pts) Confusion or Disorientation No (0 pts) Intoxicated or Sedated No (0 pts) Impaired Gait No (0 pts) Mobility Assist Device Used No (0 pt) Altered Elimination No (0 pt) Score/Fall Risk Level 0 - 2 = Low Risk Maintained a safe environment, Provided non-skid footwear, Hourly rounding (assess needs \T\ fall precautionary measures) done. Abuse screen: Denies threats or abuse. Nutritional screening: No deficits noted. Tuberculosis screening: No symptoms or risk factors identified. Assessment: 17:30 General: Appears uncomfortable, ill, slender, well groomed, well developed, Behavior is me1 calm, cooperative, appropriate for age, I started having abdominal pain and bloating just like before. I feel very nauseous but i have not vomited. . Pain: Complains of pain in abdomen Pain does not radiate. Pain currently is 7 out of 10 on a pain scale. Quality of pain is described as crampy, Pain began 1 day ago. Is continuous. Neuro: Level of Consciousness is awake, alert, obeys commands, Oriented to person, place, time, situation, Appropriate for age. Cardiovascular: Capillary refill < 3 seconds Patient's skin is warm and dry. Respiratory: Airway is patent Trachea midline Respiratory effort is even, unlabored, Respiratory pattern is regular, symmetrical. GI: Abdomen is flat, Bowel sounds present X 4 quads. Abd is soft Reports lower abdominal pain, upper abdominal pain, nausea, Patient currently denies diarrhea, vomiting. 12/15 00:15 Reassessment: Patient appears in no apparent distress at this time. Patient and/or km8 family updated on plan of care and expected duration. Pain level reassessed. Patient is alert, oriented x 3, equal unlabored respirations, skin warm/dry/pink. General: Appears in no apparent distress. comfortable, Behavior is calm, cooperative, appropriate for age. Neuro: Level of Consciousness is awake, alert, obeys commands, Oriented to person, place, time, situation, Appropriate for age. Cardiovascular: Patient's skin is warm and dry. Respiratory: Airway is patent Respiratory effort is even, unlabored, Respiratory pattern is regular, symmetrical. 01:00 Reassessment: Patient appears in no apparent distress at this time. Patient and/or km8 family updated on plan of care and expected duration. Pain level reassessed. Patient is alert, oriented x 3, equal unlabored respirations, skin warm/dry/pink. 01:00 GI: Reports lower abdominal pain, nausea. [facility] Vital Signs: 12/14 17:13 BP 129 / 73; Pulse 76; Resp 19; Temp 98.1(O); Pulse Ox 97% on R/A; kd3 17:13 Weight 70.76 kg; Height 6 ft. 1 in. ; kd3 17:45 BP 123 / 80; Pulse 59; Resp 18; Pulse Ox 96% on R/A; me1 18:30 BP 111 / 63; Pulse 60; Resp 16; Pulse Ox 97% on R/A; me1 19:15 BP 147 / 86; Pulse 55; Resp 16; Pulse Ox 97% on R/A; me1 20:00 BP 107 / 73; Pulse 56; Resp 17; Pulse Ox 94% on R/A; me1 21:00 BP 104 / 57; Pulse 51; Resp 17; Pulse Ox 98% on R/A; me1 22:00 BP 100 / 58; Pulse 48; Resp 16; Pulse Ox 97% on R/A; me1 23:00 BP 108 / 92; Pulse 53; Resp 17; Pulse Ox 99% on R/A; me1 03 00:00 BP 94 / 64; Pulse 46; Resp 16; Pulse Ox 96% on R/A; km8 12/14 17:13 Body Mass Index 20.58 (70.76 kg, 185.42 cm) kd3 ED Course: 12/14 16:45 Patient arrived in ED. im 16:47 Vernon Ball DO is Attending Physician. ms3 17:13 Arm band placed on right wrist. kd3 17:16 Triage completed. kd3 17:17 Kim Hdz, RN is Primary Nurse. me1 17:34 Missed attempt(s): 22 gauge in right forearm. me1 18:20 CBC with Diff Sent. kd3 18:20 CMP Sent. kd3 18:20 Lipase Sent. kd3 18:21 Inserted saline lock: 20 gauge in left antecubital area, using aseptic technique. Blood kd3 collected. 18:27 Patient has correct armband on for positive identification. Bed in low position. Call me1 light in reach. Side rails up X2. Provided Education on: POC. Verbalized understanding. Client placed on continuous cardiac and pulse oximetry monitoring. NIBP monitoring applied. Pulse ox on. NIBP on. 18:27 No provider procedures requiring assistance completed. me1 19:15 CT Abd/Pelvis - IV Contrast Only In Process Unspecified. EDMS 20:08 Attending Physician role handed off by Vernon Ball DO sp4 20:08 Chaka Bazzi MD is Attending Physician. sp4 21:35 Called [facility] 5 times with no answer. wm 21:52 Initiated transfer to [facility], spoke with Yana Bradshaw. wm 22:58 [facility] called back to state that they are at capacity at [facility], [facility], and [facility], but that [facility] is available. Explained to Pt that all were at capacity except [facility], Pt denied going anywhere other than [facility]. Informed Dr. Bazzi of capacity and conversation with Pt. 23:04 SARS RAPID Sent. me1 23:05 Influenza Screen (a \T\ B) Sent. me1 23:12 Called Pt manager warehouse office of Dr. Radha Burch \T\ , spoke with Lucia Perezwm 23:14 Gregg Price MD is Hospitalizing Provider. sp4 23:53 Called [facility] to cancel transfer, spoke with Lesley. 12/15 00:12 Primary Nurse role handed off by Kim Hdz, JAD km8 00:12 Yari Hazel, JAD is Primary Nurse. km8 01:30 Patient admitted, IV remains in place. km8 10:11 Marlena Campa, JAD is Primary Nurse. hb Administered Medications: 12/14 19:25 Drug: morphine IVP or IV 4 mg IVP once over 4 mins Route: IVP; Infused Over: 4 mins; me1 Site: left antecubital; 20:17 Follow up: Response: No adverse reaction; Pain is decreased me1 19:25 Drug: Ondansetron IVP 4 mg IVP once; over 2 minutes Route: IVP; Site: left antecubital; me1 20:17 Follow up: Response: No adverse reaction; Nausea is decreased me1 20:19 Not Given (Physician Discretion): ns 0.9% 1000 ml IV at 125 ml/hr continuous sp4 20:21 Drug: NS 0.9% IV 1000 ml IV at 1 bolus Per protocol; 1000 mL bolus Route: IV; Rate: 1 me1 bolus; Site: left antecubital; 23:05 Follow up: Response: No adverse reaction; IV Status: Completed infusion; IV Intake: me1 1000ml 20:30 Drug: D5-1/2 NS IV 1000 ml IV at 125 ml/hr continuous Route: IV; Rate: 125 ml/hr; Site: me1 left antecubital; 12/15 01:30 Follow up: IV Status: Infusion continued upon admission km8 Medication: 12/14 18:27 VIS not applicable for this client. me1 Intake: 23:05 IV: 1000ml; Total: 1000ml. me1 Outcome: 20:16 ER care complete, transfer ordered by . ms3 23:15 Decision to Hospitalize by Provider. sp4 12/15 01:30 Condition: stable km8 01:30 Admitted to ER Hold. Please see [facility] for further documentation. km8 01:30 Discharge instructions given to patient, Instructed on the need for admit, Demonstrated understanding of instructions, 12:54 Patient left the ED. 6 Signatures: Dispatcher [employer] EDMS Kari Harris, RN RN Vernon Ball DO DO ms3 Lilian Diggs Carrie Mann RN RN kd3 Brooklyn Vasquez bc6 Chaka Bazzi MD MD sp4 Neelima Wolfe Michelle, RN RN me1 Yari Hazel RN RN km8 Corrections: (The following items were deleted from the chart) 12/14 18:24 17:13 Chief complaint: Patient states: I started having abdominal pain and bloating me1 just like before. I feel very nauseous but i have not vomited. kd3 22:08 22:06 Called [facility] 5 times since [address] [facility] 12/15 02:00 01:00 General: Appears in no apparent distress. comfortable, Behavior is calm, km8 cooperative, appropriate for age, 8 02:00 01:00 Neuro: Level of Consciousness is awake, alert, obeys commands, Oriented to km8 person, place, time, situation, km8 02:00 01:00 Cardiovascular: Patient's skin is warm and dry. 8 km8 02:00 01:00 Respiratory: Airway is patent Respiratory effort is even, unlabored, Respiratory 8 pattern is regular, symmetrical, km8
--- NOTE | 2023-12-15 20:17 | EDPHYS ---
Physician Documentation [facility] Name: Matt Robles Age: 48 yrs Sex: Male : 1975 Arrival Date: 12/15/2023 Time: 16:43 Bed 18 Private MD: ED Physician Chaka Bazzi HPI: 12/14 17:13 This 48 yrs old Black Male presents to ER via Unassigned with complaints of Abdominal ms3 Pain. 17:13 48-year-old male with past medical history of cystic fibrosis presents to the emergency ms3 department for abdominal pain that has been ongoing for 2 hours. Patient endorses nausea. Patient denies vomiting or diarrhea. Patient rates the pain a 10/10. Patient denies any alleviating or inciting factors. Historical: - Allergies: 17:13 Toradol; kd3 - PMHx: 17:13 Crohn's Disease; CYSTIC FIBROSIS; ileus; kd3 - PSHx: 17:13 Bilateral Inguinal Hernia Repair; kd3 - Immunization history:: Adult Immunizations up to date. - Social history:: Smoking status: Patient denies any tobacco usage or history of. ROS: 17:13 Constitutional: Negative for fever, and chills. Neck: Negative for injury, pain, and ms3 swelling, Cardiovascular: Negative for chest pain, and palpitations. Respiratory: Negative for shortness of breath, cough, wheezing, and pleuritic chest pain, 17:13 Abdomen/GI: Positive for abdominal pain, Exam: 17:13 Constitutional: This is a well developed, well nourished patient who is awake, alert, ms3 and in no acute distress. Head/Face: Normocephalic, atraumatic. Neck: Trachea midline, no cervical lymphadenopathy. Supple, full range of motion without nuchal rigidity, or vertebral point tenderness. No Meningismus. Chest/axilla: Normal chest wall appearance and motion. Nontender with no deformity. Cardiovascular: Regular rate and rhythm with a normal S1 and S2. No gallops, murmurs, or rubs. Normal PMI, no JVD. No pulse deficits. Respiratory: Lungs have equal breath sounds bilaterally, clear to auscultation and percussion. No rales, rhonchi or wheezes noted. No increased work of breathing, no retractions or nasal flaring. 17:13 Skin: Warm, dry with normal turgor. Normal color with no rashes, no lesions, and no evidence of cellulitis. MS/ Extremity: Pulses equal, no cyanosis. Neurovascular intact. Full, normal range of motion. 17:13 Abdomen/GI: Inspection: abdomen appears normal, Bowel sounds: normal, Palpation: mild abdominal tenderness, in all quadrants, Vital Signs: 17:13 BP 129 / 73; Pulse 76; Resp 19; Temp 98.1(O); Pulse Ox 97% on R/A; kd3 17:13 Weight 70.76 kg; Height 6 ft. 1 in. ; kd3 17:45 BP 123 / 80; Pulse 59; Resp 18; Pulse Ox 96% on R/A; me1 18:30 BP 111 / 63; Pulse 60; Resp 16; Pulse Ox 97% on R/A; me1 19:15 BP 147 / 86; Pulse 55; Resp 16; Pulse Ox 97% on R/A; me1 20:00 BP 107 / 73; Pulse 56; Resp 17; Pulse Ox 94% on R/A; me1 21:00 BP 104 / 57; Pulse 51; Resp 17; Pulse Ox 98% on R/A; me1 22:00 BP 100 / 58; Pulse 48; Resp 16; Pulse Ox 97% on R/A; me1 23:00 BP 108 / 92; Pulse 53; Resp 17; Pulse Ox 99% on R/A; me1 0308 00:00 BP 94 / 64; Pulse 46; Resp 16; Pulse Ox 96% on R/A; km8 12/14 17:13 Body Mass Index 20.58 (70.76 kg, 185.42 cm) kd3 MDM: 12/14 17:10 Patient medically screened. ms3 17:13 Differential diagnosis: bowel obstruction, non-specific abd pain, pancreatitis. ms3 20:11 Transition of care: After a detail discussion of the patient's case, care is ms3 transferred to Chaka Bazzi MD. 20:19 Data reviewed: vital signs, nurses notes, old medical records, lab test result(s), sp4 radiologic studies, CT scan. 23:12 ED course: EXAM DESCRIPTION: CT - Abdomen Pelvis W Contrast - 12/15/2023 7:13 pm CLINICAL sp4 HISTORY: ABD PAIN COMPARISON: Abdomen Pelvis W Contrast dated 10/05/2023; Abdomen Pelvis W Contrast dated 08/04/2023; Abdomen Pelvis W Contrast dated 04/10/2023; Abdomen Pelvis W Contrast dated 02/20/2023 TECHNIQUE: Thin cut axial CT imaging of the abdomen and pelvis was performed following intravenous administration of 100 mL Isovue 300. Multiplanar reformats were generated and reviewed. All CT scans are performed using dose optimization technique as appropriate and may include automated exposure control or mA/KV adjustment according to patient size. FINDINGS: No suspicious findings in the lung bases. The liver, spleen, adrenal glands, and pancreas show no suspicious findings. Gallbladder and biliary tree are also without suspicious finding. Symmetric renal function is seen with no hydronephrosis or suspicious renal mass. Mild fluid distention throughout the small bowel loops. Short-segment air-fluid levels. No focal transition point. Anastomotic suture line at the right flank suggestive of prior proximal colectomy. No bowel wall thickening. No free air, free fluid or inflammatory stranding. No hernia, mass or bulky lymphadenopathy. The urinary bladder is without significant finding. No suspicious bony findings. IMPRESSION: Findings suggestive of ileus throughout the small bowel. Patent ileocolic anastomosis. . 23:12 ED course: Patient was declined by [facility] secondary to capacity. sp4 Patient was discussed with hospitalist here at [facility] and was accepted for admission for paralytic ileus. . 12/14 17:10 Order name: CBC with Diff; Complete Time: 18:55 ms3 12/14 17:10 Order name: CMP; Complete Time: 18:55 ms3 12/14 17:10 Order name: Lipase; Complete Time: 18:55 ms3 12/14 22:00 Order name: SARS RAPID; Complete Time: 01:02 sp4 12/14 22:00 Order name: Influenza Screen (a \T\ B); Complete Time: 01:02 sp4 12/15 00:49 Order name: CBC with Automated Diff EDMS 12/15 00:49 Order name: CBC with Automated Diff EDMS 12/15 00:49 Order name: CBC with Automated Diff EDMS 12/15 00:49 Order name: CBC with Automated Diff EDMS 12/15 00:49 Order name: Comprehensive Metabolic Panel EDMS 12/15 00:49 Order name: Comprehensive Metabolic Panel EDMS 12/15 00:49 Order name: Comprehensive Metabolic Panel EDMS 12/15 00:49 Order name: Comprehensive Metabolic Panel EDMS 12/15 06:50 Order name: Glucose, Ancillary Testing EDMS 12/15 06:51 Order name: Glucose, Ancillary Testing EDMS 12/14 18:04 Order name: CT Abd/Pelvis - IV Contrast Only; Complete Time: 20:04 ms3 12/14 17:10 Order name: IV Saline Lock; Complete Time: 18:20 ms3 12/14 17:10 Order name: Labs collected and sent; Complete Time: 18:20 ms3 Administered Medications: 19:25 Drug: morphine IVP or IV 4 mg IVP once over 4 mins Route: IVP; Infused Over: 4 mins; me1 Site: left antecubital; 20:17 Follow up: Response: No adverse reaction; Pain is decreased me1 19:25 Drug: Ondansetron IVP 4 mg IVP once; over 2 minutes Route: IVP; Site: left antecubital; me1 20:17 Follow up: Response: No adverse reaction; Nausea is decreased me1 20:19 Not Given (Physician Discretion): ns 0.9% 1000 ml IV at 125 ml/hr continuous sp4 20:21 Drug: NS 0.9% IV 1000 ml IV at 1 bolus Per protocol; 1000 mL bolus Route: IV; Rate: 1 me1 bolus; Site: left antecubital; 23:05 Follow up: Response: No adverse reaction; IV Status: Completed infusion; IV Intake: me1 1000ml 20:30 Drug: D5-1/2 NS IV 1000 ml IV at 125 ml/hr continuous Route: IV; Rate: 125 ml/hr; Site: nv1 left antecubital; 12/15 01:30 Follow up: IV Status: Infusion continued upon admission [id number] Disposition Summary: 12/15/23 23:15 Hospitalization Ordered Notes: Hospitalization Status: Inpatient Admission sp4 Provider: Gregg Price sp4 Condition: Stable(12/15/23 23:15) sp4 Problem: new(12/15/23 23:15) sp4 Symptoms: have improved(12/15/23 23:15) sp4 Bed/Room Type: Standard sp4 Location: Telemetry/MedSurg (Inpatient)(12/16/23 11:23) eb Room Assignment: [facility](12/16/23 11:23) eb Diagnosis - Paralytic ileus sp4 - Cystic fibrosis with gastrointestinal manifestations. Acute ileus, abdominal pain sp4 Forms: - Medication Reconciliation Form sp4 - SBAR form sp4 - Leadership Thank You Letter sp4 Signatures: Dispatcher [employer] Jacquie Davis, RN RN Yamilet Mercado Marcus, DO DO ms3 Carrie Mann RN RN 3 Chaka Bazzi MD MD sp4 Kim Hdz RN RN me1 Yari Hazel RN km8 Corrections: (The following items were deleted from the chart) 12/14 23:14 20:16 ms3 sp4 23:14 20:16 [facility] ms3 sp4 23:14 20:16 Higher level of care ms3 sp4 23:14 20:16 Stable ms3 sp4 23:14 20:16 new ms3 sp4 23:14 20:16 are unchanged ms3 sp4 23:14 20:16 Ileus, unspecified ms3 sp4 23:14 20:16 Cystic fibrosis with other intestinal manifestations ms3 sp4 23:14 23:14 [employer] sp4 sp4 23:14 23:14 Ileus , Abdominal pain sp4 sp4 23:22 23:15 Telemetry/MedSurg (Inpatient) sp4 kl 23:22 23:15 sp4 12/15 11:23 12/14 23:22 [facility] ER [facility] 12/15 11:23 12/14 23:22 [facility]
[2023-12-15] MEDS ORDERED: NA CHLORIDE 0.9% 1,000 ML ONE (20:20)
[2023-12-15] MEDS ORDERED: D5 0.45 NS 1,000 ML IV ONE (20:24)
[2023-12-15 23:45] LABS: SARS-CoV-2 Antigen Rapid Res Negative (Negative)
--- NOTE | 2023-12-16 00:44 | P.HP ---
Certification for Inpatient Patient admitted to: Inpatient With expected LOS: >2 Midnights Practitioner: I am a practitioner with admitting privileges, knowledge of patient current condition, hospital course, and medical plan of care. Services: Services provided to patient in accordance with Admission requirements found in Title 42 Section 412.3 of the Code of Federal Regulations Patient History Date of Service: 12/16/23 Reason for admission: Abdominal pain History of Present Illness: 48-year-old male patient with medical history significant for cystic fibrosis and history of Crohn's disease status post multiple abdominal surgery who presented to the emergency room with abdominal pain of 2-hour duration. Pain was rated 10 out of 10 in intensity with no associated vomiting but he did have nausea episode. He had imaging studies done in the ED that showed ileus without overt obstruction. He [place] [facility] [place] hospital was at full capacity and could not accommodate patient. He is admitted for inpatient care at [facility]. Allergies ketorolac [From Toradol] Allergy (Verified 12/16/23 01:57) Anaphylaxis Review of Systems General: Malaise Eyes: Unremarkable ENT: Unremarkable Respiratory: Unremarkable Cardiovascular: Unremarkable Gastrointestinal: Nausea, Abdominal Pain Genitourinary: Unremarkable Musculoskeletal: Unremarkable Integumentary: Unremarkable Neurological: Unremarkable Lymphatics: Unremarkable Physical Examination - Physical Exam General: Alert, Oriented x3 HEENT: Atraumatic, Normocephalic Neck: Supple Respiratory: Normal air movement Cardiovascular: Regular rate/rhythm, Normal S1 S2 Gastrointestinal: Tenderness Musculoskeletal: No swelling Neurological: Normal speech, Normal strength at 5/5 x4 extr - Studies Laboratory Data (last 24 hrs) 12/15/23 12/15/23 18:16 18:16 WBC 5.70 Hgb 12.5 L Hct 36.7 L Plt Count 207 Sodium 140 Potassium 4.0 BUN 14 Creatinine 1.51 H Glucose 72 L Total Bilirubin 0.8 AST 17 ALT 25 Alkaline Phosphatase 92 Lipase < 6 L Microbiology Data (last 24 hrs): 12/15/23 23:03 Nasopharnyx Influenza Type A Antigen Screen - Final 12/15/23 23:03 Nasopharnyx Influenza Type B Antigen Screen - Final Assessment and Plan - Plan Hilus: Patient has confirmed that is on imaging. Will keep n.p.o. and start IV fluid for management. Continue as needed morphine for pain control per Continue on his regular bowel regimen which include MiraLAX and GoLytely. He will be transferred to [facility] once there is an available bed. History of cystic fibrosis: We will continue IV hydration and other supportive care. Prophylaxis: Lovenox for DVT prophylaxis CODE STATUS: Full code Disposition: We will treat his episode of ileitis and he will be discharged/transferred to [facility] once there is an available bed. - Advance Directives Does patient have a Living Will: No Does patient have a Durable POA for Healthcare: No
[2023-12-16] MEDS ORDERED: MORPHINE 2 MG/ML SYR ONE ×3 (01:35→10:18)
[2023-12-16] MEDS ORDERED: ONDANSETRON 4 MG/2 ML VIAL ONE ×2 (01:35→10:18)
[2023-12-16] MEDS: MORPHINE 2 MG/ML SYR IV PRN (01:40)
[2023-12-16] MEDS: ONDANSETRON 4 MG/2 ML VIAL IV PRN (01:41)
[2023-12-16] MEDS: D5 0.45 NS 1,000 ML IV SCH (01:42)
[2023-12-16 01:48] VITALS: BMI 20.5
[2023-12-16] MEDS ORDERED: D5 0.45 NS 1,000 ML IV ONE (05:53)
--- NOTE | 2023-12-16 13:07 | P.PN ---
Subjective Date of Service: 12/16/23 Had an extended conversation with patient. He has been getting his treatment in [place] as well as [facility]. Patient states he tends to have GI symptoms with his cystic fibrosis. Will try to get his medical records from outside hospital. He tends to use nebulizer treatments and pancreatic enzymes daily. He also uses MiraLAX daily. He takes 2 packets 4-5 times a day. At this time, patient will get GoLytely unflavored. Once he starts moving his bowels and x-rays are improved anticipate discharge home. Review of Systems 10-point ROS is otherwise unremarkable Physical Examination - Vital Signs Temperature: 98.7 F Blood Pressure: 123/80 Pulse: 59 Respirations: 18 Pulse Ox (%): 96 - Physical Exam General: Alert, In no apparent distress, Oriented x3 HEENT: Atraumatic, PERRLA, EOMI Neck: Supple, JVD not distended Respiratory: Clear to auscultation bilaterally, Normal air movement Cardiovascular: Regular rate/rhythm, Normal S1 S2 Gastrointestinal: Hypoactive, No tenderness Musculoskeletal: No clubbing, No swelling, No tenderness Neurological: Sensation intact, Cranial nerves 3-12 intact - Studies Laboratory Data (last 24 hrs) 12/15/23 12/15/23 18:16 18:16 WBC 5.70 Hgb 12.5 L Hct 36.7 L Plt Count 207 Sodium 140 Potassium 4.0 BUN 14 Creatinine 1.51 H Glucose 72 L Total Bilirubin 0.8 AST 17 ALT 25 Alkaline Phosphatase 92 Lipase < 6 L Microbiology Data (last 24 hrs): 12/15/23 23:03 Nasopharnyx Influenza Type A Antigen Screen - Final 12/15/23 23:03 Nasopharnyx Influenza Type B Antigen Screen - Final Medications List Reviewed: Yes Assessment & Plan - Problems (Diagnosis) (1) Ileus Current Visit: Yes Status: Acute (2) Cystic fibrosis Current Visit: Yes Status: Acute - Plan Plan: 1. Continue with IV fluids 2. GoLytely unflavored x 1 per patient's request. He says this is what they normally given whenever he has an ileus. He also can take MiraLAX. 3. Resume nebulizer treatments and pancreatic enzymes as he takes at home 4. Out of bed and ambulate 5. Repeat KUB in the morning 6. GI DVT prophylaxis Discharge Plan: Home Plan to discharge in: 24 Hours - Advance Directives Does patient have a Living Will: No Does patient have a Durable POA for Healthcare: No - Code Status/Comfort Care Code Status Assessed: Yes Code Status: Full Code Critical Care: No Time Spent Managing PTS Care (In Minutes): 35
[2023-12-16] MEDS: GOLYTELY 4000 ML PO ONE (13:31)
[2023-12-16] MEDS: LIPASE/PROTEASE/AMYLASE CAP PO SCH (16:23)
[2023-12-16] MEDS ORDERED: AMYLASE/LIPASE/PROTEASE CAP PO SCH (16:30)
[2023-12-16] MEDS ORDERED: HOME MED 1 EA UNK (Lipase/Protease/Amylase [Creon Dr 36,000 Unit Capsule] Capsule.Dr) PO SCH (17:00)
[2023-12-16] MEDS: SODIUM CHLORIDE 7% IH SCH (19:00)
[2023-12-16] MEDS: ALBUTEROL 2.5 MG/3 ML NEB SOL NEB SCH (20:31)
[2023-12-16] MEDS: ELEXACAFTOR PO SCH (20:45)
[2023-12-16] MEDS: IVACAFTOR PO SCH (20:45)
[2023-12-16] MEDS: TEZACAFTOR PO SCH (20:45)
[2023-12-16] MEDS: SODIUM CHLORIDE IH SCH (20:46)
[2023-12-16] MEDS: TOBRAMYCIN IH SCH (20:46)
[2023-12-16] MEDS: MULTIVITAMIN TAB PO SCH (20:47)
[2023-12-16] MEDS: VITAMIN D 5,000 UNIT CAP PO SCH (20:47)
--- NOTE | 2023-12-17 07:15 | RAD REPORT ---
EXAM DESCRIPTION: RAD - Abdomen 1 View (KUB) - 12/17/2023 6:49 am CLINICAL HISTORY: ileus COMPARISON: Abdomen Pelvis W Contrast dated 12/15/2023; Abdomen Pelvis W Contrast dated 10/05/2023 FINDINGS: Nonobstructive bowel gas pattern. Small bowel loops centrally are distended. Gas remains p resent throughout the colon. No acute osseous abnormality.Visualized lungs are unremarkable.No abnorm al calcifications. Suture line in the right lower quadrant. IMPRESSION: Nonobstructive bowel gas pattern. Gas remains present throughout the small bowel and col on. Distended small bowel loops centrally. The findings could represent an ileus or at least patulous small bowel.
--- NOTE | 2023-12-17 07:54 | P.PN ---
Subjective Date of Service: 12/17/23 Chief Complaint: Abdominal pain Reports nausea, no vomiting, mild left lower quadrant abdominal tenderness positive bowel sounds, reported liquid stool yesterday - Physical Exam General: Alert, Oriented x3 HEENT: Atraumatic, Normocephalic Neck: Supple Respiratory: Normal air movement Cardiovascular: Regular rate/rhythm, Normal S1 S2 Gastrointestinal: Tenderness Musculoskeletal: No swelling Neurological: Normal speech, Normal strength at 5/5 x4 extr Review of Systems Per HPI Physical Examination - Vital Signs Temperature: 97.4 F Blood Pressure: 121/69 Pulse: 62 Respirations: 17 Pulse Ox (%): 95 - Studies Medications List Reviewed: Yes Assessment And Plan - Plan Assessment and Plan Ileus, suspected small bowel obstruction, Abdominal pain Hilus: Patient has confirmed that is on imaging. CT of the abdomen pelvis IMPRESSION: Findings suggestive of ileus throughout the small bowel. Patent ileocolic anastomosis. Will keep n.p.o. and start IV fluid for management. Continue as needed morphine for pain control per Continue on his regular bowel regimen which include MiraLAX and GoLytely. He will be transferred to [facility] once there is an available bed. History of cystic fibrosis: We will continue IV hydration and other supportive care. Prophylaxis: Lovenox for DVT prophylaxis CODE STATUS: Full code Disposition: We will treat his episode of ileitis and he will be discharged/transferred to [facility] once there is an available bed. Discharge Plan: Home - Code Status/Comfort Care Code Status: Full Code Critical Care: No Time Spent Managing PTS Care (In Minutes): 35
[2023-12-17 08:00] LABS: Absolute Eosinophils 0.2 K/uL (0-0.5); Absolute Lymphocytes (CBC) 1.3 K/uL (0.7-4.9); Basophils % 0.4 % (0-1.3); Eosinophils % 6.2 % (0-4.4); Hematocrit 36.3 % (39.6-49.0); Hemoglobin 12.2 g/dL (13.6-17.9); Lymphocytes % 32.7 % (15.3-44.8); MPV 10.1 fL (7.6-11.3); Platelets 194 thou/uL (152-406); RBC Red Blood Cell Count 3.95 M/uL (4.33-5.43)
[2023-12-17 08:12] LABS: Anion Gap 4.6 mEq/L (5.0-15.0); Bilirubin Total 0.6 mg/dL (0.2-1.0); Globulin 3.1 g/dL (2.3-3.5); Potassium 3.6 mEq/L (3.5-5.1); Protein, Total 6.1 g/dL (6.4-8.2)
[2023-12-17] MEDS: POLYETHYL GLY 3350 17 GM/DOSE PO SCH (08:51)
[2023-12-17] MEDS: SENOSIDES 8.6 MG TAB PO PRN (08:51)
[2023-12-17] MEDS ORDERED: POLYETHYL GLY 3350 17 GM/DOSE PO SCH ×2 (09:00→15:36)
[2023-12-18 07:30] LABS: Absolute Eosinophils 0.3 K/uL (0-0.5); Absolute Lymphocytes (CBC) 1.3 K/uL (0.7-4.9); Basophils % 0.8 % (0-1.3); Eosinophils % 6.9 % (0-4.4); Hematocrit 38.3 % (39.6-49.0); Hemoglobin 12.8 g/dL (13.6-17.9); Lymphocytes % 30.6 % (15.3-44.8); MCV 91.7 fL (80-100); MPV 9.8 fL (7.6-11.3); Platelets 194 thou/uL (152-406); RBC Red Blood Cell Count 4.18 M/uL (4.33-5.43)
--- NOTE | 2023-12-18 07:32 | P.PN ---
Subjective Date of Service: 12/18/23 Chief Complaint: Abdominal pain Reports nausea, no vomiting, mild left lower quadrant abdominal tenderness positive bowel sounds, reported liquid stool - Physical Exam General: Alert, Oriented x3 HEENT: Atraumatic, Normocephalic Neck: Supple Respiratory: Normal air movement Cardiovascular: Regular rate/rhythm, Normal S1 S2 Gastrointestinal: Tenderness Musculoskeletal: No swelling Neurological: Normal speech, Normal strength at 5/5 x4 extr Review of Systems Per HPI Physical Examination - Vital Signs Temperature: 98.1 F Blood Pressure: 121/65 Pulse: 48 Respirations: 17 Pulse Ox (%): 96 - Studies Medications List Reviewed: Yes Assessment And Plan - Plan Assessment and Plan Ileus, suspected small bowel obstruction, Abdominal pain Patient has confirmed that is on imaging. CT of the abdomen pelvis IMPRESSION: Findings suggestive of ileus throughout the small bowel. Patent ileocolic anastomosis. Will keep n.p.o. and start IV fluid for management. Continue as needed morphine for pain control per Continue on his regular bowel regimen which include MiraLAX and GoLytely., Senokot He will be transferred to [facility] once there is an available bed. History of cystic fibrosis: We will continue IV hydration and other supportive care. Prophylaxis: Lovenox for DVT prophylaxis CODE STATUS: Full code Disposition: We will treat his episode of ileitis and he will be discharged/transferred to [facility] once there is an available bed. Discharge Plan: Home - Code Status/Comfort Care Code Status: Full Code Critical Care: No Time Spent Managing PTS Care (In Minutes): 35
[2023-12-18 07:45] LABS: Albumin 2.9 g/dL (3.4-5.0); Albumin/Globulin Ratio 0.9 (1.1-1.8); Anion Gap 7.6 mEq/L (5.0-15.0); Bilirubin Total 0.7 mg/dL (0.2-1.0); Globulin 3.3 g/dL (2.3-3.5); Potassium 3.6 mEq/L (3.5-5.1); Protein, Total 6.2 g/dL (6.4-8.2)
[2023-12-18] MEDS: GOLYTELY 4000 ML PO SCH (09:49)
[2023-12-19 00:34] VITALS: O2SAT 96
[2023-12-19 04:20] LABS: Absolute Eosinophils 0.3 K/uL (0-0.5); Absolute Lymphocytes (CBC) 1.6 K/uL (0.7-4.9); Basophils % 0.9 % (0-1.3); Eosinophils % 7.6 % (0-4.4); Hemoglobin 12.4 g/dL (13.6-17.9); Lymphocytes % 36.3 % (15.3-44.8); MCV 91.9 fL (80-100); Platelets 189 thou/uL (152-406); RBC Red Blood Cell Count 4.03 M/uL (4.33-5.43)
[2023-12-19 04:35] LABS: Albumin 2.8 g/dL (3.4-5.0); Albumin/Globulin Ratio 0.9 (1.1-1.8); Anion Gap 7.4 mEq/L (5.0-15.0); Bilirubin Total 0.8 mg/dL (0.2-1.0); Globulin 3.1 g/dL (2.3-3.5); Potassium 3.4 mEq/L (3.5-5.1); Protein, Total 5.9 g/dL (6.4-8.2)
--- NOTE | 2023-12-19 11:05 | RAD REPORT ---
EXAM DESCRIPTION: RAD - Small Bowel Series - 12/19/2023 10:49 am CLINICAL HISTORY: ileus/partial sbo Abdominal pain COMPARISON: Abdomen Pelvis W Contrast dated 12/15/2023 FINDINGS: Bevel Face [employer] film shows a nonspecific bowel gas pattern. No obstruction or free air. No suspiciou s calcifications. Generalized gaseous distention of bowel loops suggests ileus. Gastric size and mucosal fold pattern are normal. No delay in transit of contrast into the small susan l. Small bowel is normal in diameter with no mucosal fold thickening. No intrinsic or extrinsic mass identifiable. Terminal ileum has normal appearance. Transit time to the colon is normal. No fluoroscopy was performed. Total images acquired: 16 IMPRESSION: Generalized gaseous small bowel distention suggests ileus. No evidence of bowel obstruc tion.
[2023-12-19 12:43] VITALS: BP 151/77; TEMP 97
== END 2023-12-19 15:41 | disposition home or self-care (01) | DRG 389 ==
LOC: ER 16:43 → ERHOLD 12-16 00:44 → 2ND 12-16 12:11
PROVIDERS: ADMIT Internal Medicine Nephrology; ATTEND Hospitalist
DX: K56.690 Other partial intestinal obstruction (principal); E84.19 Cystic fibrosis with other intestinal manifestations; Z88.5 Allergy status to narcotic agent; Z11.52 Encounter for screening for COVID-19
CPT/HCPCS: 36415; 74018; 74177; 74250; 80053; 82947; 83690; 83735; 85025; 87804; 87811; 96361; 96374; 96375; 99285; J2270; J2405; J7030; J7613; J7799; Q9967

== ENCOUNTER 2024-03-31 17:13 | Emergency (ER) | payer OTHER ==
[2024-03-31 18:10] LABS: Absolute Eosinophils 0.3 K/uL (0-0.5); Absolute Lymphocytes (CBC) 1.6 K/uL (0.7-4.9); Absolute Monocytes 0.7 K/uL (0.1-1.3); Absolute Neutrophil 4.3 K/uL (1.8-8.0); Basophils % 0.4 % (0-1.3); Eosinophils % 4.8 % (0-4.4); Hematocrit 37.6 % (39.6-49.0); Hemoglobin 12.5 g/dL (13.6-17.9); Lymphocytes % 23.2 % (15.3-44.8); MCH 30.8 pg (27.0-35.0); MCHC 33.4 g/dL (32.0-36.0); MCV 92.4 fL (80-100); MPV 8.1 fL (7.6-11.3); Monocytes % 9.8 % (3.3-12.3); Neutrophils % 61.8 % (41.7-73.7); Nucleated Red Blood Cells % 0.1 % (0-0); Platelets 251 thou/uL (152-406); RBC Red Blood Cell Count 4.07 M/uL (4.33-5.43); Red Cell Distribution Width 14.8 % (12.1-15.2)
[2024-03-31 18:12] LABS: Specific Gravity 1.013 (1.005-1.030); Sqamous Epithelial None Seen /HPF (None Seen); Urine Bacteria None Seen /HPF (<20); Urine Bilirubin NEGATIVE (Negative); Urine Blood Negative (Negative); Urine Clarity Clear (Clear); Urine Color Light-Yellow (Yellow); Urine Crystals Unidentified Few /HPF (None Seen); Urine Culture Reflex Order NOT NEEDED; Urine Glucose NEGATIVE (Negative); Urine Ketones NEGATIVE (Negative); Urine Microscopic Reflex YN ORDER UMIC; Urine Mucus Slight /HPF (None Seen); Urine Nitrite NEGATIVE (Negative); Urine Protein NEGATIVE (Negative); Urine RBC <5 /HPF (None Seen); Urine Urobilinogen Normal (Normal); Urine WBC <5 /HPF (<5)
[2024-03-31] MEDS ORDERED: NA CHLORIDE 0.9% 1,000 ML ONE (18:22)
[2024-03-31 18:25] LABS: ALT/SGPT 32 U/L (16-61); AST/SGOT 16 U/L (15-37); Albumin 3.5 g/dL (3.4-5.0); Albumin/Globulin Ratio 0.9 (1.1-1.8); Alkaline Phosphatase 96 U/L (45-117); BUN Blood Urea Nitrogen 11 mg/dL (7-18); Bicarbonate 27 mEq/L (21-32); Bilirubin Total 0.6 mg/dL (0.2-1.0); Glomerular Filtration Rate 68 ml/min (=/>90); Glucose Level 94 mg/dL (74-106); Protein, Total 7.5 g/dL (6.4-8.2); Sodium Level 137 mEq/L (136-145)
[2024-03-31 18:31] LABS: Lipase < 6 U/L (13-75)
[2024-03-31] MEDS ORDERED: ONDANSETRON 4 MG/2 ML VIAL ONE (18:51)
[2024-03-31] MEDS ORDERED: MORPHINE 4 MG/ML SYR ONE (18:52)
--- NOTE | 2024-03-31 19:19 | RAD REPORT ---
EXAM DESCRIPTION: CT - Abdomen Pelvis W Contrast - 03/31/2024 7:06 pm CLINICAL HISTORY: ABDOMINAL DISTENTION COMPARISON: Abdomen Pelvis W Contrast dated 02/17/2024; Abdomen Pelvis W Contrast dated 12/15/2023; Abdomen Pelvis W Contrast dated 10/05/2023; Abdomen Pelvis W Contrast dated 08/04/2023 TECHNIQUE: Thin cut axial CT imaging of the abdomen and pelvis was performed following intravenous a dministration of iodinated contrast. Multiplanar reformats were generated and reviewed. All CT scans are performed using dose optimization technique as appropriate and may include automated exposure control or mA/KV adjustment according to patient size. FINDINGS: No suspicious findings in the lung bases. The liver, spleen, adrenal glands, and pancreas show no suspicious findings. Gallbladder and biliary tree are also without suspicious finding. Symmetric renal function is seen with no hydronephrosis or suspicious renal mass. Marked gaseous distention throughout the colon, with moderate to large stool burden. Anastomotic sutu re line in the enterocolic junction. Rectum is spared. No dilated small bowel loops or bowel wall thi ckening. Nonspecific mild fluid opacification of the distal small bowel. No fistulas or fluid collect ions are noted. No free air, free fluid or inflammatory stranding. No hernia, mass or bulky lymphaden opathy. The urinary bladder is without significant finding. No suspicious bony findings. IMPRESSION: Cases distention throughout the colon with moderate to large stool burden. Nonspecific fluid distention within nondilated distal small bowel loops, may relate to diarrheal stat e. No bowel wall thickening or other acute inflammatory changes appreciated.
--- NOTE | 2024-03-31 19:35 | EDPHYS ---
Physician Documentation [facility] Name: Matt Robles Age: 48 yrs Sex: Male : 1975 Arrival Date: 03/31/2024 Time: 17:13 Bed 6 Private MD: ED Physician Bobo Ybarra HPI: 03/31 18:00 This 48 yrs old Black Male presents to ER via Ambulatory with complaints of Abdominal cp Pain. 18:00 The patient presents with abdominal pain right lower quadrant, abdominal distention cp that is diffuse. 18:00 Onset: The symptoms/episode began/occurred 1 day(s) ago. cp 18:00 The symptoms do not radiate. Associated signs and symptoms: Pertinent positives: cp constipation, nausea, Pertinent negatives: chest pain, diarrhea, dysuria, fever, testicular pain, vomiting. The symptoms are described as constant. The patient has experienced similar episodes in the past, several times, today's symptoms are similar, to when the patient was apparently diagnosed with bowel obstruction. Historical: - Allergies: 17:23 Toradol; mb9 - Home Meds: 17:23 albuterol sulfate 2.5 mg/0.5 mL Inhl Solution for Nebulization [Active]; amitriptyline mb9 10 mg Oral tablet nightly [Active]; Creon 36 Oral capsule 2 times per day [Active]; Trikafta 100-50-75mg (d) /75 mg (n) Oral Granules in Packet after meals and before bedtime [Active]; Tobramycin Neb [Active]; multivitamin Oral tablet [Active]; Miralax 17 gram Oral powder in packet [Active]; magnesium oxide 400 mg magnesium Oral tablet 2 times per day [Active]; lubiprostone 24 mcg Oral capsule three times a day [Active]; dornase jeanetet 1 mg/mL inhalation soln 2.5 mL 2 times per day [Active]; - PMHx: 17:23 Crohn's Disease; CYSTIC FIBROSIS; ileus; mb9 - PSHx: 17:23 Bilateral Inguinal Hernia Repair; mb9 - Immunization history:: Adult Immunizations not up to date. - Infectious Disease History:: Denies. - Social history:: Smoking status: Patient denies any tobacco usage or history of. ROS: 18:05 Constitutional: Negative for body aches, chills, fever, poor PO intake, cp 18:05 Eyes: Negative for injury, pain, redness, and discharge, cp 18:05 ENT: Negative for drainage from ear(s), ear pain, sore throat, difficulty swallowing, difficulty handling secretions, 18:05 Cardiovascular: Negative for chest pain, edema, palpitations, 18:05 Respiratory: Negative for cough, shortness of breath, wheezing, 18:05 Abdomen/GI: Positive for abdominal pain, nausea, constipation, abdominal distension, Negative for diarrhea, 18:05 : Negative for urinary symptoms, testicular pain 18:05 Neuro: Negative for altered mental status, dizziness, headache, syncope, weakness, 18:05 All other systems are negative, Exam: 18:10 Constitutional: The patient appears in no acute distress, alert, awake, non-toxic, well cp developed, well nourished, 18:10 Head/Face: Normocephalic, atraumatic. cp 18:10 Eyes: Periorbital structures: appear normal, Conjunctiva: normal, no exudate, no injection, Sclera: no appreciated abnormality, Lids and lashes: appear normal, bilaterally, 18:10 ENT: External ear(s): are unremarkable, Nose: is normal, Mouth: Lips: moist, Oral mucosa: pink and intact, moist, Posterior pharynx: Airway: no evidence of obstruction, patent, 18:10 Chest/axilla: Inspection: normal, 18:10 Cardiovascular: Rate: normal, Rhythm: regular, 18:10 Respiratory: the patient does not display signs of respiratory distress, Respirations: normal, no use of accessory muscles, no retractions, labored breathing, is not present, Breath sounds: are clear throughout, no decreased breath sounds, no stridor, no wheezing, 18:10 Abdomen/GI: Inspection: distension, that is mild, Bowel sounds: active, all quadrants, Palpation: soft, in all quadrants, mild abdominal tenderness, in all quadrants, rebound tenderness, is not appreciated, involuntary guarding, is not appreciated, 18:10 Back: pain, is absent, ROM is normal, Vital Signs: 17:24 Pulse 87; Resp 18; Pulse Ox 99% on R/A; Weight 71.67 kg; Height 6 ft. 1 in. ; Pain ld1 10; 18:05 BP 127 / 82 LA Supine (auto/reg); Pulse 71 MON; Resp 16 S; Pulse Ox 99% on R/A; le1 19:46 BP 125 / 79 LA Supine (auto/reg); Pulse 74 MON; Resp 23 S; Pulse Ox 96% on R/A; le1 17:24 Body Mass Index 20.85 (71.67 kg, 185.42 cm) ld1 17:24 Pain Scale: Adult ld1 MDM: 17:33 Patient medically screened. 18:00 Differential diagnosis: bowel obstruction, diverticulitis, gastritis, non-specific abd cp pain, pancreatitis, Pyelonephritis, Ureterolithiasis, urinary tract infection. 19:33 Data reviewed: vital signs, nurses notes, lab test result(s), radiologic studies, CT cp scan, and as a result, I will discharge patient. 19:33 I considered the following discharge prescriptions or medication management in the emergency department Medications were administered in the Emergency Department. See MAR. Counseling: I had a detailed discussion with the patient and/or guardian regarding the historical points, exam findings, and any diagnostic results supporting the discharge/admit diagnosis, lab results, radiology results, to return to the emergency department if symptoms worsen or persist or if there are any questions or concerns that arise at home. Special discussion: Based on the patient's Hx, exam, and Dx evaluation, there is no indication for emergent surgery or inpatient Tx. It is understood by the patient/guardian that if the Sx's persist or worsen they need to return immediately for re-evaluation. 03/31 17:50 Order name: CBC with Diff; Complete Time: 18:55 cp 03/31 17:50 Order name: CMP; Complete Time: 18:55 cp 03/31 17:50 Order name: Lipase; Complete Time: 18:55 cp 03/31 17:50 Order name: Urinalysis w/ reflexes; Complete Time: 18:55 cp 03/31 18:16 Order name: CT Abd/Pelvis - IV Contrast Only; Complete Time: 19:27 cp 03/31 17:50 Order name: IV Saline Lock; Complete Time: 18:04 cp 03/31 17:50 Order name: Labs collected and sent; Complete Time: 18:04 cp Administered Medications: 18:25 Drug: NS 0.9% IV 1000 ml IV at 1 bolus Per protocol; 1000 mL bolus Route: IV; Rate: 1 le1 bolus; Site: right antecubital; 20:06 Follow up: Response: No adverse reaction; IV Status: Completed infusion le1 19:18 Drug: Ondansetron IVP 4 mg IVP once; over 2 minutes Route: IVP; Site: right antecubital;mb9 20:06 Follow up: Response: No adverse reaction; Nausea is decreased le1 19:21 Drug: morphine IVP or IV 4 mg IVP once over 4 mins Route: IVP; Infused Over: 4 mins; mb9 Site: right antecubital; 20:06 Follow up: Response: No adverse reaction; Pain is decreased le1 Disposition Summary: 03/31/24 19:34 Discharge Ordered Notes: Location: Home cp Problem: new cp Symptoms: are unchanged cp Condition: Stable cp Diagnosis - Constipation cp Followup: cp - With: Private Physician - When: 2 - 3 days - Reason: Worsening of condition Discharge Instructions: - Discharge Summary Sheet cp - Constipation, Adult cp Forms: - Medication Reconciliation Form cp - Antibiotic Education cp - Prescription Opioid Use cp - Patient Portal Instructions cp - Leadership Thank You Letter cp Prescriptions: - Golytely [id number] -5.86 gram Oral Recon Soln - take 240 milliliter ORAL route every 10 minutes As needed until bowel movement; cp 4000 milliliter; Refills: 0, Product Selection Permitted Addendum: 04/01/2024 20:06 Co-signature as Attending Physician, Bobo Ybarra MD I reviewed the patient's care r t provided by the Advanced Practice Provider and agree with the diagnosis and treatment plan. Signatures: Dispatcher [employer] EDNH Chris Tineo PA PA cp Linda Ball RN RN ld1 Betzy Rodriguez RN RN mb9 Bobo Ybarra MD MD rt Denisa Laguna RN RN le1 Corrections: (The following items were deleted from the chart) 03/31 17:50 17:50 CBC+H.LAB.BRZ ordered. EDMS EDMS 17:50 17:50 COMPREHENSIVE METABOLIC PANEL+C.LAB.BRZ ordered. EDMS EDMS 17:50 17:50 LIPASE+C.LAB.BRZ ordered. EDMS EDMS 17:50 17:50 Urinalysis+U.LAB.BRZ ordered. EDMS EDMS 04/01 17:44 06/22 18:00 The patient presents with abdominal pain abdominal distention that is cp diffuse. cp
--- NOTE | 2024-03-31 19:35 | ER ---
Nurse's Notes [facility] Name: Matt Robles Age: 48 yrs Sex: Male : 1975 Arrival Date: 03/31/2024 Time: 17:13 Bed 6 Private MD: Diagnosis: Constipation Presentation: 03/31 17:24 Chief complaint: Patient states: RLQ pain X 1 day. Coronavirus screen: At this time, ld1 the client does not indicate any symptoms associated with coronavirus-19. Ebola Screen: No symptoms or risks identified at this time. Initial Sepsis Screen: Does the patient meet any 2 criteria? No. Patient's initial sepsis screen is negative. Does the patient have a suspected source of infection? No. Patient's initial sepsis screen is negative. Risk Assessment: Do you want to hurt yourself or someone else? Patient reports no desire to harm self or others. Onset of symptoms was March 31, 2024. 17:24 Method Of Arrival: Ambulatory ld1 17:24 Acuity: BRENNA 3 ld1 Triage Assessment: 17:24 General: Appears in no apparent distress. comfortable, Behavior is calm, cooperative, ld1 appropriate for age. Pain: Complains of pain in right lower quadrant Pain does not radiate. Pain currently is 10 out of 10 on a pain scale. Quality of pain is described as throbbing, Pain began suddenly, Is continuous. EENT: No signs and/or symptoms were reported regarding the EENT system. Neuro: Level of Consciousness is awake, alert, obeys commands, Oriented to person, place, time, situation. Cardiovascular: Capillary refill < 3 seconds Patient's skin is warm and dry. Respiratory: Airway is patent Respiratory effort is even, unlabored. GI: Abdomen is flat, non-distended, Reports lower abdominal pain. : No signs and/or symptoms were reported regarding the genitourinary system. Derm: No signs and/or symptoms reported regarding the dermatologic system. Musculoskeletal: No signs and/or symptoms reported regarding the musculoskeletal system. Historical: - Allergies: 17:23 Toradol; mb9 - Home Meds: 17:23 albuterol sulfate 2.5 mg/0.5 mL Inhl Solution for Nebulization [Active]; amitriptyline mb9 10 mg Oral tablet nightly [Active]; Creon 36 Oral capsule 2 times per day [Active]; Trikafta 100-50-75mg (d) /75 mg (n) Oral Granules in Packet after meals and before bedtime [Active]; Tobramycin Neb [Active]; multivitamin Oral tablet [Active]; Miralax 17 gram Oral powder in packet [Active]; magnesium oxide 400 mg magnesium Oral tablet 2 times per day [Active]; lubiprostone 24 mcg Oral capsule three times a day [Active]; dornase jeanette 1 mg/mL inhalation soln 2.5 mL 2 times per day [Active]; - PMHx: 17:23 Crohn's Disease; CYSTIC FIBROSIS; ileus; mb9 - PSHx: 17:23 Bilateral Inguinal Hernia Repair; mb9 - Immunization history:: Adult Immunizations not up to date. - Infectious Disease History:: Denies. - Social history:: Smoking status: Patient denies any tobacco usage or history of. Screenin:02 [facility] ED Fall Risk Assessment (Adult) History of falling in the last 3 months, le1 including since admission No falls in past 3 months (0 pts) Confusion or Disorientation No (0 pts) Intoxicated or Sedated No (0 pts) Impaired Gait No (0 pts) Mobility Assist Device Used No (0 pt) Altered Elimination No (0 pt) Score/Fall Risk Level 0 - 2 = Low Risk Oriented to surroundings, Maintained a safe environment, Educated pt \T\ family on fall prevention, incl call for assistance when getting out of bed, Assessed \T\ reinforced patient's understanding of fall precautions, Hourly rounding (assess needs \T\ fall precautionary measures) done. Abuse screen: Denies threats or abuse. Nutritional screening: No deficits noted. Tuberculosis screening: No symptoms or risk factors identified. Assessment: 18:05 General: Appears in no apparent distress. comfortable, Behavior is calm, cooperative. le1 18:05 Pain: Complains of pain in abdomen Pain currently is 6 out of 10 on a pain scale. le1 Neuro: No deficits noted. Forrest Agitation-Sedation Scale (RASS): 0 - Alert and Calm. Cardiovascular: No deficits noted. Respiratory: No deficits noted. GI: Bowel sounds present X 4 quads. Abdomen is tender to palpation. Vital Signs: 17:24 Pulse 87; Resp 18; Pulse Ox 99% on R/A; Weight 71.67 kg; Height 6 ft. 1 in. ; Pain ld1 10/10; 18:05 BP 127 / 82 LA Supine (auto/reg); Pulse 71 MON; Resp 16 S; Pulse Ox 99% on R/A; le1 19:46 BP 125 / 79 LA Supine (auto/reg); Pulse 74 MON; Resp 23 S; Pulse Ox 96% on R/A; le1 17:24 Body Mass Index 20.85 (71.67 kg, 185.42 cm) ld1 17:24 Pain Scale: Adult ld1 ED Course: 17:15 Patient arrived in ED. im 17:17 Chris Tineo PA is PHCP. cp 17:17 Bobo Ybarra MD is Attending Physician. cp 17:17 Bobo Ybarra MD is Attending Physician. cp 17:22 Denisa Laguna, RN is Primary Nurse. le1 17:24 Arm band placed on. mb9 17:25 Triage completed. ld1 18:05 Initial lab(s) drawn, by ms, sent to lab. Inserted saline lock: 20 gauge in right le1 antecubital area, using aseptic technique. Blood collected. 18:05 Urine collected: clean catch specimen, clear. le1 18:51 Patient requests pain medication. mb9 19:02 Patient has correct armband on for positive identification. Bed in low position. Call le1 light in reach. Side rails up X 1. Provided Education on: Press call button to get help from Nurse. 19:08 CT Abd/Pelvis - IV Contrast Only In Process Unspecified. EDMS 20:05 No provider procedures requiring assistance completed. IV discontinued, intact, le1 bleeding controlled, No redness/swelling at site. Pressure dressing applied. Administered Medications: 18:25 Drug: NS 0.9% IV 1000 ml IV at 1 bolus Per protocol; 1000 mL bolus Route: IV; Rate: 1 le1 bolus; Site: right antecubital; 20:06 Follow up: Response: No adverse reaction; IV Status: Completed infusion le1 19:18 Drug: Ondansetron IVP 4 mg IVP once; over 2 minutes Route: IVP; Site: right antecubital;mb9 20:06 Follow up: Response: No adverse reaction; Nausea is decreased le1 19:21 Drug: morphine IVP or IV 4 mg IVP once over 4 mins Route: IVP; Infused Over: 4 mins; mb9 Site: right antecubital; 20:06 Follow up: Response: No adverse reaction; Pain is decreased le1 Medication: 19:03 VIS not applicable for this client. le1 Outcome: 19:34 Discharge ordered by . cp 20:05 Discharged to home ambulatory, le1 20:05 Condition: stable 20:05 Discharge instructions given to patient, Instructed on discharge instructions, follow up and referral plans. Demonstrated understanding of instructions, follow-up care, medications, Prescriptions given X 1, 20:05 Patient left the ED. le1 Signatures: Dispatcher [employer] EDMS Chris Tineo PA PA cp Sims, Lauren RN RN ld1 Betzy Rodriguez RN RN mb9 Neelima Wolfe LaKendric RN RN le1
[2024-03-31 20:30] VITALS: BP 125/79; O2SAT 96
== END 2024-03-31 20:05 | disposition home or self-care (01) ==
LOC: ER 17:13
DX: K59.00 Constipation, unspecified (principal); K50.90 Crohn's disease, unspecified, without complications; Z79.899 Other long term (current) drug therapy; Z88.8 Allergy status to other drugs, medicaments and biological substances
CPT/HCPCS: 85025; 81001; 36415; 83690; 80053; 74177; Q9967; J2405; J7030; 96361; 96374; 96375; 99284

== ENCOUNTER 2024-04-15 00:01 | Emergency (ER) | payer OTHER ==
[2024-04-15] MEDS ORDERED: FAMOTIDINE 20 MG/2 ML VIAL IV ONE (03:02)
[2024-04-15] MEDS ORDERED: ONDANSETRON 4 MG/2 ML VIAL ONE ×3 (03:02→07:12)
[2024-04-15] MEDS ORDERED: NA CHLORIDE 0.9% 1,000 ML ONE ×2 (03:02→04:34)
[2024-04-15 03:22] LABS: Absolute Basophils 0.1 K/uL (0-0.5); Absolute Eosinophils 0.3 K/uL (0-0.5); Absolute Lymphocytes (CBC) 1.8 K/uL (0.7-4.9); Absolute Monocytes 0.8 K/uL (0.1-1.3); Absolute Neutrophil 4.8 K/uL (1.8-8.0); Basophils % 0.8 % (0-1.3); Eosinophils % 3.9 % (0-4.4); Hematocrit 40.4 % (39.6-49.0); Hemoglobin 13.1 g/dL (13.6-17.9); Lymphocytes % 23.3 % (15.3-44.8); MCH 30.6 pg (27.0-35.0); MCHC 32.4 g/dL (32.0-36.0); MCV 94.5 fL (80-100); MPV 9.5 fL (7.6-11.3); Monocytes % 10.3 % (3.3-12.3); Neutrophils % 61.7 % (41.7-73.7); Platelets 246 thou/uL (152-406); RBC Red Blood Cell Count 4.28 M/uL (4.33-5.43)
[2024-04-15 03:28] LABS: Albumin 3.7 g/dL (3.4-5.0); Anion Gap 6.8 mEq/L (5.0-15.0); Bilirubin Total 0.8 mg/dL (0.2-1.0); Globulin 3.7 g/dL (2.3-3.5); Potassium 3.8 mEq/L (3.5-5.1); Protein, Total 7.4 g/dL (6.4-8.2)
--- NOTE | 2024-04-15 04:15 | ER ---
Nurse's Notes [facility] Name: Matt Robles Age: 48 yrs Sex: Male : 1975 Arrival Date: 04/15/2024 Time: 00:01 Bed 20 Private MD: Diagnosis: Abdominal pain, Generalized;Other and unspecified intestinal obstruction-SMALL BOWEL OBSTRUCTION, CLOSED LOOP;Cystic fibrosis with other intestinal manifestations Presentation: 04/15 00:09 Chief complaint: Patient states: Lower right abdominal pain radiates to right lower vc1 back. Coronavirus screen: Client denies travel out of the [place] in the last 14 days. At this time, the client does not indicate any symptoms associated with coronavirus-19. Ebola Screen: Patient negative for fever greater than or equal to 101.5 degrees Fahrenheit, and additional compatible Ebola Virus Disease symptoms Patient denies exposure to infectious person. Patient denies travel to an Ebola-affected area in the 21 days before illness onset. No symptoms or risks identified at this time. Initial Sepsis Screen: Does the patient meet any 2 criteria? No. Patient's initial sepsis screen is negative. Does the patient have a suspected source of infection? No. Patient's initial sepsis screen is negative. Risk Assessment: Do you want to hurt yourself or someone else? Patient reports no desire to harm self or others. Onset of symptoms was April 15, 2024. 00:09 Method Of Arrival: Ambulatory vc1 00:09 Acuity: BRENNA 4 vc1 Triage Assessment: 00:12 General: Appears in no apparent distress. comfortable, Listening to headphones playing vc1 on phone, pt has a bag of belongings and a pillow with him. Behavior is calm, cooperative, appropriate for age. Pain: Complains of pain in right lower quadrant Pain radiates to right low back Pain currently is 10 out of 10 on a pain scale. Quality of pain is described as radiating, sharp, Pain began suddenly, Also complains of nausea. EENT: No deficits noted. No signs and/or symptoms were reported regarding the EENT system. Neuro: Level of Consciousness is awake, alert, obeys commands, Oriented to person, place, time, situation, Appropriate for age. Cardiovascular: Capillary refill < 3 seconds Patient's skin is warm and dry. Respiratory: Airway is patent Respiratory effort is even, unlabored, Respiratory pattern is regular, symmetrical, Breath sounds are clear bilaterally. GI: Abdomen is flat, non-distended. : No deficits noted. No signs and/or symptoms were reported regarding the genitourinary system. Derm: Skin is intact, is healthy with good turgor, Skin is dry, Skin is normal, Skin temperature is warm. Musculoskeletal: No deficits noted. No signs and/or symptoms reported regarding the musculoskeletal system. Historical: - Allergies: 00:11 Toradol; vc1 - PMHx: 00:11 CYSTIC FIBROSIS; ileus; vc1 - PSHx: 00:11 Bilateral Inguinal Hernia Repair; Appendectomy; vc1 - Immunization history:: Client reports having NOT received the Covid vaccine. Flu vaccine is up to date. - Infectious Disease History:: Denies. - Social history:: Smoking status: Patient denies any tobacco usage or history of. Patient/guardian denies using alcohol, street drugs. - Family history:: not pertinent. Screenin:50 [facility] ED Fall Risk Assessment (Adult) History of falling in the last 3 months, pc2 including since admission No falls in past 3 months (0 pts) Confusion or Disorientation No (0 pts) Intoxicated or Sedated No (0 pts) Impaired Gait No (0 pts) Mobility Assist Device Used No (0 pt) Altered Elimination No (0 pt) Score/Fall Risk Level 0 - 2 = Low Risk. Abuse screen: Denies threats or abuse. Denies injuries from another. 02:50 Nutritional screening: No deficits noted. Tuberculosis screening: No symptoms or risk pc2 factors identified. Assessment: 02:28 General: Appears in no apparent distress. slender, well groomed, Behavior is calm, pc2 cooperative, appropriate for age. Pain: Complains of pain in abdomen Pain currently is 10 out of 10 on a pain scale. Quality of pain is described as aching, sharp. Neuro: Level of Consciousness is awake, alert, Oriented to person, place, time, situation. Cardiovascular: Capillary refill < 3 seconds Patient's skin is warm and dry. Respiratory: Airway is patent Respiratory effort is even, unlabored, Respiratory pattern is regular, symmetrical. GI: Abdomen is non-distended, Bowel sounds present X 4 quads. Abd is soft and non tender X 4 quads. : No signs and/or symptoms were reported regarding the genitourinary system. EENT: No signs and/or symptoms were reported regarding the EENT system. Derm: No signs and/or symptoms reported regarding the dermatologic system. Musculoskeletal: No signs and/or symptoms reported regarding the musculoskeletal system. 03:35 Reassessment: Patient appears in no apparent distress at this time. pc2 04:15 Reassessment: Patient appears in no apparent distress at this time. No changes from pc2 previously documented assessment. 05:25 Reassessment: Patient appears in no apparent distress at this time. Patient and/or pc2 family updated on plan of care and expected duration. Pain level reassessed. Patient is alert, oriented x 3, equal unlabored respirations, skin warm/dry/pink. 06:30 Reassessment: Patient appears in no apparent distress at this time. Patient and/or pc2 family updated on plan of care and expected duration. Pain level reassessed. Patient is alert, oriented x 3, equal unlabored respirations, skin warm/dry/pink. Vital Signs: 00:09 BP 139 / 83; Pulse 80; Resp 16; Temp 96.3; Pulse Ox 100% ; Weight 71.67 kg; Height 6 vc1 ft. 1 in. ; Pain 10/10; 02:45 BP 124 / 75; Pulse 64; Resp 16; Pulse Ox 99% on R/A; pc2 03:34 BP 132 / 79; Pulse 74; Resp 16; Pulse Ox 98% ; pc2 05:00 BP 135 / 71; Pulse 62; Resp 16; Pulse Ox 99% on R/A; pc2 06:50 BP 122 / 79; Pulse 83; Resp 15; Temp 97.3; Pulse Ox 99% on R/A; pc2 00:09 Body Mass Index 20.85 (71.67 kg, 185.42 cm) vc1 00:09 Pain Scale: Adult vc1 ED Course: 00:03 Patient arrived in ED. im 00:11 Triage completed. vc1 00:12 Arm band placed on left wrist. vc1 00:21 Chris Beltrán MD is Attending Physician. lilia 02:39 Mera Askew, RN is Primary Nurse. pc2 02:58 Bed in low position. Call light in reach. Side rails up X2. Provided Education on: POC pc2 and time frame. 02:59 CBC with Diff Sent. cm10 02:59 CMP Sent. cm10 02:59 Lipase Sent. cm10 03:[address] via stretcher. pc2 03:24 CT Abd/Pelvis - IV Contrast Only In Process Unspecified. EDMS 03:38 No provider procedures requiring assistance completed. pc2 04:07 Kiel Blair MD is Hospitalizing Provider. lilia 06:08 Lactate w/ 2H reflex if indic. Sent. pc2 06:37 Report given to JAD Farley receiving patient to room [address] [facility]. pc2 07:24 Report given to [facility] at bedside. pc2 07:26 Patient transferred, IV remains in place. pc2 Administered Medications: 03:01 Drug: NS 0.9% IV 1000 ml IV at 1 bolus Per protocol; 1000 mL bolus Route: IV; Rate: 1 pc2 bolus; Site: right forearm; 03:41 Follow up: IV Status: Completed infusion; IV Intake: 1000ml pc2 03:01 Drug: Famotidine IVP 20 mg IVP once; dilute with 10 mL 0.9% NaCl; give over 2 minutes pc2 Route: IVP; Site: right forearm; 03:39 Follow up: Response: No adverse reaction pc2 03:02 Drug: Ondansetron IVP 4 mg IVP once; over 2 minutes Route: IVP; Site: right forearm; pc2 03:40 Follow up: Response: No adverse reaction pc2 03:39 Drug: NS 0.9% IV 1000 ml IV at 125 ml/hr continuous Route: IV; Rate: 125 ml/hr; Site: pc2 right antecubital; 07:11 Follow up: IV Intake: 400ml pc2 07:29 Follow up: IV Status: Completed infusion; IV Intake: 400ml pc2 05:25 Drug: morphine IVP or IV 4 mg IVP once over 4 mins Route: IVP; Infused Over: 4 mins; pc2 Site: right forearm; 06:00 Follow up: Response: No adverse reaction; Pain is decreased; RASS: Alert and Calm (0) pc2 05:27 Drug: Ondansetron IVP 4 mg IVP once; over 2 minutes Route: IVP; Site: right forearm; pc2 06:00 Follow up: Response: No adverse reaction pc2 06:55 Drug: Piperacillin-Tazobactam IVPB 3.375 grams IVPB once over 60 mins; (mix in NS 100 pc2 mL) Route: IVPB; Infused Over: 60 mins; Site: right forearm; 07:04 Follow up: Response: No adverse reaction pc2 07:28 Follow up: Response: No adverse reaction; IV Status: Completed infusion pc2 07:13 Drug: morphine IVP or IV 4 mg IVP once over 4 mins Route: IVP; Infused Over: 4 mins; pc2 Site: right forearm; 07:27 Follow up: Response: No adverse reaction; RASS: Alert and Calm (0) pc2 07:13 Drug: Ondansetron IVP 4 mg IVP once; over 2 minutes Route: IVP; Site: right forearm; pc2 07:27 Follow up: Response: No adverse reaction pc2 Medication: 03:34 VIS not applicable for this client. pc2 Intake: 03:41 IV: 1000ml; Total: 1000ml. pc2 07:29 IV: 400ml; Total: 1400ml. pc2 Outcome: 04:14 Decision to Hospitalize by Provider. lilia 04:51 ER care complete, transfer ordered by . lilia 07:25 Transferred by ground EMS [facility], Transfer form pc2 completed. 07:25 Condition: stable 07:25 Instructed on the need for admit, Demonstrated understanding of instructions, 07:28 Patient left the ED. pc2 Signatures: Dispatcher [employer] EDChris Jon MD MD cha Calcote, Vanessa, RN RN vc1 Neelima Wolfe Clarissa, RN RN cm10 Mera Askew, RN RN pc2 Corrections: (The following items were deleted from the chart) 00:12 00:11 PMHx: Crohn's Disease; vc1 vc1 07:28 07:04 Response: No adverse reaction pc2 pc2 07:29 07:11 IV Intake: 400ml pc2 pc2
--- NOTE | 2024-04-15 04:15 | EDPHYS ---
Physician Documentation [facility] Name: Matt Robles Age: 48 yrs Sex: Male : 1975 Arrival Date: 04/15/2024 Time: 00:01 Bed 20 Private MD: SANTINO Physician Chris Beltrán HPI: 04/15 02:46 This 48 yrs old Black Male presents to ER via Ambulatory with complaints of Abdominal lilia Pain. 02:46 The patient presents with abdominal pain in the upper abdomen, in the lower abdomen, in lilia the right upper quadrant, in the left lower quadrant, abdominal distention in the upper abdomen, in the lower abdomen. Onset: The symptoms/episode began/occurred 2 day(s) ago. The symptoms do not radiate. Associated signs and symptoms: Pertinent positives: nausea. Severity of pain: At its worst the pain was moderate in the emergency department the pain is unchanged. The patient has experienced similar episodes in the past, multiple times. Historical: - Allergies: 00:11 Toradol; vc1 - PMHx: 00:11 CYSTIC FIBROSIS; ileus; vc1 - PSHx: 00:11 Bilateral Inguinal Hernia Repair; Appendectomy; vc1 - Immunization history:: Client reports having NOT received the Covid vaccine. Flu vaccine is up to date. - Infectious Disease History:: Denies. - Social history:: Smoking status: Patient denies any tobacco usage or history of. Patient/guardian denies using alcohol, street drugs. - Family history:: not pertinent. ROS: 02:46 Constitutional: Negative for fever, chills, and weight loss, Eyes: Negative for injury, lilia pain, redness, and discharge, ENT: Negative for injury, pain, and discharge, Neck: Negative for injury, pain, and swelling, Cardiovascular: Negative for chest pain, palpitations, and edema, Respiratory: Negative for shortness of breath, cough, wheezing, and pleuritic chest pain, Back: Negative for injury and pain, : Negative for injury, bleeding, discharge, and swelling, MS/Extremity: Negative for injury and deformity, Skin: Negative for injury, rash, and discoloration, Neuro: Negative for headache, weakness, numbness, tingling, and seizure, Psych: Negative for depression, anxiety, suicide ideation, homicidal ideation, and hallucinations, Allergy/Immunology: Negative for hives, rash, and allergies, Endocrine: Negative for neck swelling, polydipsia, polyuria, polyphagia, and marked weight changes, Hematologic/Lymphatic: Negative for swollen nodes, abnormal bleeding, and unusual bruising, 02:46 Abdomen/GI: Positive for abdominal pain, nausea, abdominal cramps, abdominal distension, Exam: 02:46 Constitutional: This is a well developed, well nourished patient who is awake, alert, lilia and in no acute distress. Head/Face: Normocephalic, atraumatic. Eyes: Pupils equal round and reactive to light, extra-ocular motions intact. Lids and lashes normal. Conjunctiva and sclera are non-icteric and not injected. Cornea within normal limits. Periorbital areas with no swelling, redness, or edema. ENT: Nares patent. No nasal discharge, no septal abnormalities noted. Tympanic membranes are normal and external auditory canals are clear. Oropharynx with no redness, swelling, or masses, exudates, or evidence of obstruction, uvula midline. Mucous membranes moist. Neck: Trachea midline, no thyromegaly or masses palpated, and no cervical lymphadenopathy. Supple, full range of motion without nuchal rigidity, or vertebral point tenderness. No Meningismus. Chest/axilla: Normal chest wall appearance and motion. Nontender with no deformity. No lesions are appreciated. Cardiovascular: Regular rate and rhythm with a normal S1 and S2. No gallops, murmurs, or rubs. Normal PMI, no JVD. No pulse deficits. Respiratory: Lungs have equal breath sounds bilaterally, clear to auscultation and percussion. No rales, rhonchi or wheezes noted. No increased work of breathing, no retractions or nasal flaring. Back: No spinal tenderness. No costovertebral tenderness. Full range of motion. Male : Normal genitalia with no discharge or lesions. Skin: Warm, dry with normal turgor. Normal color with no rashes, no lesions, and no evidence of cellulitis. MS/ Extremity: Pulses equal, no cyanosis. Neurovascular intact. Full, normal range of motion. Neuro: Awake and alert, GCS 15, oriented to person, place, time, and situation. Cranial nerves II-XII grossly intact. Motor strength 5/5 in all extremities. Sensory grossly intact. Cerebellar exam normal. Normal gait. Psych: Awake, alert, with orientation to person, place and time. Behavior, mood, and affect are within normal limits. 02:46 Abdomen/GI: Inspection: distension, Bowel sounds: diminished, in all quadrants, Palpation: moderate abdominal tenderness, in the suprapubic area, right upper quadrant and right lower quadrant, Liver: no appreciated palpable abnormalities, Hernia: not appreciated, Vital Signs: 00:09 BP 139 / 83; Pulse 80; Resp 16; Temp 96.3; Pulse Ox 100% ; Weight 71.67 kg; Height 6 vc1 ft. 1 in. ; Pain 10/10; 02:45 BP 124 / 75; Pulse 64; Resp 16; Pulse Ox 99% on R/A; pc2 03:34 BP 132 / 79; Pulse 74; Resp 16; Pulse Ox 98% ; pc2 05:00 BP 135 / 71; Pulse 62; Resp 16; Pulse Ox 99% on R/A; pc2 06:50 BP 122 / 79; Pulse 83; Resp 15; Temp 97.3; Pulse Ox 99% on R/A; pc2 00:09 Body Mass Index 20.85 (71.67 kg, 185.42 cm) vc1 00:09 Pain Scale: Adult vc1 MDM: 00:21 Patient medically screened. lilia 02:52 Differential diagnosis: bowel obstruction, diverticulitis, Mesenteric ischemia or lilia infarction, non-specific abd pain, pancreatitis, Peptic Ulcer Disease, Peritonitis, urinary tract infection. Data reviewed: vital signs, nurses notes, lab test result(s), radiologic studies, CT scan. Consideration of Admission/Observation Patient was admitted/placed on observation. Escalation of care including admission/observation considered. I considered the following discharge prescriptions or medication management in the emergency department Medications were administered in the Emergency Department. See MAR. Independent interpretation of the following test(s) in the Emergency Department CT Scan: My interpretation is CT AB/PELVIS WITH IV. Test considered but Not performed: Ultrasound NO ABD USG. 04/15 00:22 Order name: CBC with Diff; Complete Time: 03:38 lilia 04/15 00:22 Order name: CMP; Complete Time: 03:38 lilia 04/15 00:22 Order name: Lipase; Complete Time: 03:38 lilia 04/15 04:03 Order name: CREATININE WHOLE BLOOD; Complete Time: 05:42 EDMS 04/15 05:44 Order name: Lactate w/ 2H reflex if indic.; Complete Time: 06:22 vc1 04/15 05:44 Order name: Lactate w/ 2H reflex if indic. [facility] 04/15 00:22 Order name: CT Abd/Pelvis - IV Contrast Only [facility] 04/15 00:22 Order name: IV Saline Lock; Complete Time: 02:59 lilia 04/15 00:22 Order name: Labs collected and sent; Complete Time: 02:59 [facility] 04/15 06:32 Order name: NPO; Complete Time: 06:44 [facility] Administered Medications: 03:01 Drug: NS 0.9% IV 1000 ml IV at 1 bolus Per protocol; 1000 mL bolus Route: IV; Rate: 1 pc2 bolus; Site: right forearm; 03:41 Follow up: IV Status: Completed infusion; IV Intake: 1000ml pc2 03:01 Drug: Famotidine IVP 20 mg IVP once; dilute with 10 mL 0.9% NaCl; give over 2 minutes pc2 Route: IVP; Site: right forearm; 03:39 Follow up: Response: No adverse reaction pc2 03:02 Drug: Ondansetron IVP 4 mg IVP once; over 2 minutes Route: IVP; Site: right forearm; pc2 03:40 Follow up: Response: No adverse reaction pc2 03:39 Drug: NS 0.9% IV 1000 ml IV at 125 ml/hr continuous Route: IV; Rate: 125 ml/hr; Site: pc2 right antecubital; 07:11 Follow up: IV Intake: 400ml pc2 07:29 Follow up: IV Status: Completed infusion; IV Intake: 400ml pc2 05:25 Drug: morphine IVP or IV 4 mg IVP once over 4 mins Route: IVP; Infused Over: 4 mins; pc2 Site: right forearm; 06:00 Follow up: Response: No adverse reaction; Pain is decreased; RASS: Alert and Calm (0) pc2 05:27 Drug: Ondansetron IVP 4 mg IVP once; over 2 minutes Route: IVP; Site: right forearm; pc2 06:00 Follow up: Response: No adverse reaction pc2 06:55 Drug: Piperacillin-Tazobactam IVPB 3.375 grams IVPB once over 60 mins; (mix in NS 100 pc2 mL) Route: IVPB; Infused Over: 60 mins; Site: right forearm; 07:04 Follow up: Response: No adverse reaction pc2 07:28 Follow up: Response: No adverse reaction; IV Status: Completed infusion pc2 07:13 Drug: morphine IVP or IV 4 mg IVP once over 4 mins Route: IVP; Infused Over: 4 mins; pc2 Site: right forearm; 07:27 Follow up: Response: No adverse reaction; RASS: Alert and Calm (0) pc2 07:13 Drug: Ondansetron IVP 4 mg IVP once; over 2 minutes Route: IVP; Site: right forearm; pc2 07:27 Follow up: Response: No adverse reaction pc2 Disposition Summary: 04/15/24 04:51 Transfer Ordered Notes: Transfer Location: [facility] lilia Reason: Higher level of care lilia Condition: Fair(04/15/24 04:51) lilia Problem: an acute exacerbation(04/15/24 04:51) lilia Symptoms: are unchanged(04/15/24 04:51) lilia Accepting Physician: TO [facility](04/15/24 07:28) pc2 Diagnosis - Abdominal pain, Generalized(04/15/24 04:51) lilia - Other and unspecified intestinal obstruction - SMALL BOWEL OBSTRUCTION, CLOSED LOOP lilia - Cystic fibrosis with other intestinal manifestations(04/15/24 04:51) lilia Discharge Instructions: - Discharge Summary Sheet af3 Forms: - Medication Reconciliation Form af3 - SBAR form af3 Signatures: Dispatcher [employer] EDChris Jon MD MD cha Calcote, Vanessa RN RN vc1 Mera Askew, RN RN pc2 Corrections: (The following items were deleted from the chart) 00:12 00:11 PMHx: Crohn's Disease; vc1 vc1 04:46 04:14 Inpatient Admission lilia lilia 04:46 04:14 Kiel Blair lilia lilia 04:46 04:14 Telemetry/MedSurg (Inpatient) lilia lilia 04:46 04:14 Fair lilia lilia 04:46 04:14 new lilia lilia 04:46 04:14 are unchanged lilia lilia 04:46 04:14 Standard lilia lilia 04:46 04:14 lilia lilia 04:46 04:14 Abdominal pain, Generalized lilia lilia 04:46 04:14 Ileus, unspecified lilia lilia 04:46 04:14 Cystic fibrosis with other intestinal manifestations lilia lilia 04:51 04:51 TO [facility], [facility] lilia lilia 07:28 04:51 TO [facility], [facility] pc2
[2024-04-15] MEDS ORDERED: MORPHINE 4 MG/ML SYR ONE ×2 (05:23→07:12)
[2024-04-15] MEDS ORDERED: NA CHLORIDE 0.9% 100 ML ONE (06:45)
[2024-04-15] MEDS ORDERED: PIPERACIL/TAZO 3.375 GM VIAL IV ONE (06:45)
[2024-04-15 07:37] VITALS: O2SAT 99
[2024-04-15 07:58] VITALS: BP 122/79; TEMP 97.3
--- NOTE | 2024-04-17 12:44 | RAD REPORT ---
EXAM DESCRIPTION: CT - Abdomen Pelvis W Contrast - 04/15/2024 6:58 am ADDENDUM #1 Urgent finding reported to Dr. Chris Beltrán at 04/15/2024 4:37 AM CDT Electronically signed by: George Huber DO 04/15/2024 04:39 AM CDT RP Workstation: [id number] End of Addendum EXAM DESCRIPTION: CT ABDOMEN AND PELVIS WITHOUT CONTRAST CLINICAL HISTORY: ABD PAIN COMPARISON: 03/31/2024 TECHNIQUE: CT of the abdomen and pelvis without IV contrast. Evaluation of the solid organs and vasc ulature is suboptimal due to lack of IV contrast. This exam was performed according to our department al dose-optimization program, which includes automated exposure control, adjustment of the mA and/or kV according to patient size and/or use of iterative reconstruction technique. FINDINGS: Lung Bases: The visualized lung bases are clear. Bones: No acute osseous abnormality identified. Abdomen: Liver: The liver has normal size and density. Gallbladder: No calcified gallstones. Spleen, Pancreas, and Adrenal Glands: The spleen, pancreas, and adrenal glands are unremarkable. Kidneys: No hydronephrosis or obstructing ureteral calculi. Vasculature: The aorta and IVC have normal caliber and position. Stomach: The stomach and duodenum have normal course. Other: No free intraperitoneal air. No free fluid or lymphadenopathy. Pelvis: Bladder: Urinary bladder is unremarkable. Bowel: Large amount of stool throughout the colon again identified. Mild wall thickening of the col on. Interval development of severe dilation of loops of small bowel the right abdomen with apparent e ntry and exit transition point possibly representing a closed loop small bowel obstruction. Bowel pro ximal to this is mildly dilated. The bowel distal to this is decompressed. Appendix: Not definitely identified. Pelvis: Enlarged prostate. IMPRESSION: 1. Interval development of severe dilation of loops of small bowel the right abdomen w ith apparent entry and exit transition point possibly representing a closed loop small bowel obstruct ion. 2. Large amount of stool throughout the colon again identified. Mild wall thickening of the colon. This could be seen with constipation and chronic nonspecific colitis. 3. Enlarged prostate. Electronically signed by: George Huber DO 04/15/2024 04:34 AM CDT RP Workstation: [id number] Due to temporary technical issues with the PACS/Fluency reporting system, reports are being signed by the in house radiologist without review as a courtesy to ensure prompt reporting. The interpreting r adiologist is fully responsible for the content of the report.
== END 2024-04-15 07:28 | disposition short-term general hospital (02) ==
LOC: ER 00:01
DX: K56.699 Other intestinal obstruction unspecified as to partial versus complete obstruction (principal); E84.19 Cystic fibrosis with other intestinal manifestations
CPT/HCPCS: 96365; 96361; 85025; 36415; 82565; 83605; 83690; 80053; 74177; 96375; 99285; Q9967; J2543; J2405 ×3; J7030 ×2

== ENCOUNTER 2025-02-17 00:45 | Emergency (ER) | payer OTHER ==
[2025-02-17] MEDS ORDERED: FAMOTIDINE 20 MG/2 ML VIAL IV ONE (02:07)
[2025-02-17] MEDS ORDERED: NA CHLORIDE 0.9% 1,000 ML ONE ×3 (02:07→07:13)
[2025-02-17] MEDS ORDERED: ONDANSETRON 4 MG/2 ML VIAL ONE (02:07)
[2025-02-17] MEDS ORDERED: MORPHINE 4 MG/ML SYR ONE ×2 (02:07→04:31)
[2025-02-17 02:11] LABS: Absolute Eosinophils 0.2 K/uL (0-0.5); Absolute Lymphocytes (CBC) 1.1 K/uL (0.7-4.9); Absolute Monocytes 0.8 K/uL (0.1-1.3); Absolute Neutrophil 6.3 K/uL (1.8-8.0); Basophils % 0.3 % (0-1.3); Eosinophils % 2.7 % (0-4.4); Hematocrit 39.3 % (39.6-49.0); Hemoglobin 13.2 g/dL (13.6-17.9); Lymphocytes % 12.7 % (15.3-44.8); MCH 31.1 pg (27.0-35.0); MCHC 33.7 g/dL (32.0-36.0); MCV 92.3 fL (80-100); MPV 8.6 fL (7.6-11.3); Monocytes % 9.8 % (3.3-12.3); Neutrophils % 74.5 % (41.7-73.7); Platelets 230 thou/uL (152-406); RBC Red Blood Cell Count 4.26 M/uL (4.33-5.43); Red Cell Distribution Width 13.1 % (12.1-15.2)
[2025-02-17 02:27] LABS: Albumin 3.7 g/dL (3.4-5.0); Albumin/Globulin Ratio 0.9 (1.1-1.8); Anion Gap 7.4 mEq/L (5.0-15.0); Bilirubin Total 1.1 mg/dL (0.2-1.0); Globulin 4.2 g/dL (2.3-3.5); Potassium 3.4 mEq/L (3.5-5.1); Protein, Total 7.9 g/dL (6.4-8.2)
--- NOTE | 2025-02-17 05:03 | ER ---
Nurse's Notes [facility] Name: Matt Robles Age: 49 yrs Sex: Male : 1975 Arrival Date: 02/17/2025 Time: 00:45 Bed 14 Private MD: Diagnosis: Cystic fibrosis with other intestinal manifestations;Other intestinal obstruction Presentation: 02/17 00:56 Chief complaint: Patient states: I have abdominal pain again that started earlier kd3 today. There is no changed to my medical history. The abdominal pain is all over my stomach. Coronavirus screen: Vaccine status: Patient reports being unvaccinated. Ebola Screen: No symptoms or risks identified at this time. Initial Sepsis Screen: Does the patient meet any 2 criteria? No. Patient's initial sepsis screen is negative. Does the patient have a suspected source of infection? No. Patient's initial sepsis screen is negative. Risk Assessment: Do you want to hurt yourself or someone else? Patient reports no desire to harm self or others. Onset of symptoms was February 17, 2025. 00:56 Method Of Arrival: Ambulatory kd3 00:56 Acuity: BRENNA 3 kd3 Triage Assessment: 00:57 General: Appears in no apparent distress. Behavior is calm, cooperative. Pain: kd3 Complains of pain in abdomen. GI: Abdomen is non-distended. Historical: - Allergies: 00:57 Toradol; kd3 - PMHx: 00:57 CYSTIC FIBROSIS; ileus; kd3 - PSHx: 00:57 Appendectomy; Bilateral Inguinal Hernia Repair; kd3 - Immunization history:: Adult Immunizations up to date. - Infectious Disease History:: Denies. - Social history:: Smoking status: Patient denies any tobacco usage or history of. Screenin:16 [facility] ED Fall Risk Assessment (Adult) History of falling in the last 3 months, kd3 including since admission No falls in past 3 months (0 pts) Confusion or Disorientation No (0 pts) Intoxicated or Sedated No (0 pts) Impaired Gait No (0 pts) Mobility Assist Device Used No (0 pt) Altered Elimination No (0 pt) Score/Fall Risk Level 0 - 2 = Low Risk Oriented to surroundings. Abuse screen: Denies threats or abuse. Denies injuries from another. Nutritional screening: No deficits noted. Tuberculosis screening: No symptoms or risk factors identified. Assessment: 02:17 General: Appears in no apparent distress. Behavior is calm, cooperative. Pain: kd3 Complains of pain in abdomen. Neuro: Level of Consciousness is awake, alert, obeys commands, Oriented to person, place, time, situation. Cardiovascular: Patient's skin is warm and dry. Respiratory: Airway is patent Trachea midline Respiratory effort is even, unlabored, Respiratory pattern is regular, symmetrical. GI: Bowel sounds present X 4 quads. Abd is soft X 4 quads. 06:13 Reassessment: Patient and/or family updated on plan of care and expected duration. Pain kd3 level reassessed. Patient is alert, oriented x 3, equal unlabored respirations, skin warm/dry/pink. 06:19 General: attempted to call 24 tower for report and was told to call back in half an kd3 hour. . 07:06 Reassessment: attempted to call report to [facility]. no answer at this time. kc6 battery charger tester made aware. 07:15 General: Appears in no apparent distress. comfortable, well groomed, well developed, kc6 Behavior is calm, cooperative, appropriate for age. Neuro: Level of Consciousness is awake, alert, obeys commands, Oriented to person, place, time, situation, Appropriate for age. Cardiovascular: Capillary refill < 3 seconds. Respiratory: Airway is patent Trachea midline Respiratory effort is even, unlabored, Respiratory pattern is regular, symmetrical. GI: NGT in place, to suction. Site clean. Bowel sounds present X 4 quads. Abd is soft X 4 quads Reports lower abdominal pain, upper abdominal pain, Patient currently denies diarrhea. : No signs and/or symptoms were reported regarding the genitourinary system. Urine is clear. EENT: No signs and/or symptoms were reported regarding the EENT system. Derm: No signs and/or symptoms reported regarding the dermatologic system. Skin is intact, is healthy with good turgor, Skin is pink, warm \T\ dry. Musculoskeletal: No signs and/or symptoms reported regarding the musculoskeletal system. Circulation, motion, and sensation intact. Range of motion: intact in all extremities. 08:00 Reassessment: Patient appears in no apparent distress at this time. No changes from kc6 previously documented assessment. Patient and/or family updated on plan of care and expected duration. Pain level reassessed. Patient is alert, oriented x 3, equal unlabored respirations, skin warm/dry/pink. Vital Signs: 00:56 BP 148 / 86; Pulse 94; Resp 18; Temp 97.5(O); Pulse Ox 98% on R/A; Weight 72.57 kg; kd3 Height 6 ft. 1 in. ; 02:16 BP 110 / 71; Pulse 82; Resp 18; Pulse Ox 96% on R/A; kd3 03:28 BP 104 / 66; Pulse 81; Resp 18; Pulse Ox 96% on R/A; kd3 04:11 BP 123 / 85; Pulse 96; Resp 17; Pulse Ox 100% on R/A; kd3 06:13 BP 141 / 78; Pulse 92; Resp 19; Pulse Ox 96% on R/A; kd3 07:06 BP 133 / 80; Pulse 85; Resp 18 S; Pulse Ox 95% on R/A; kc6 08:02 BP 124 / 86; Pulse 90; Resp 18 S; Pulse Ox 99% on R/A; kc6 00:56 Body Mass Index 21.11 (72.57 kg, 185.42 cm) kd3 ED Course: 00:49 Patient arrived in ED. gm2 00:55 Chris Tineo PA is PHCP. cp 00:55 Chris Beltrán MD is Attending Physician. cp 00:56 Carrie Mann, JAD is Primary Nurse. kd3 00:57 Triage completed. kd3 00:57 Arm band placed on right wrist. kd3 02:15 Inserted saline lock: 20 gauge in left antecubital area, using aseptic technique. Blood kd3 collected. Flushed with 10 mL NS. 02:45 CT Abd/Pelvis - IV Contrast Only In Process Unspecified. EDMS 03:28 Patient has correct armband on for positive identification. Provided Education on: ct kd3 scan . 05:10 Mar initiated transfer with Duglas \Dev\ [facility] 06:12 NGT: inserted 16 Fr. via right nare. verified placement of air over stomach, verified kd3 return of gastric contents, Placement verified by X-ray, to intermittent suction. Returned gastric contents. Patient tolerated well. 06:21 pt was accepted to [facility]. Accepting Dr. Misty Bueno [phone]. Accepting admin Duglas Joshua \Dev\[id number]. Number for nurse to nurse report [phone]. [facility] to transfer pt once nurse to nurse is complete. 06:51 XRAY Abdomen 1 View (KUB) In Process Unspecified. EDMS 07:05 Patient has correct armband on for positive identification. Bed in low position. Call kc6 light in reach. Side rails up X 1. Report received from Carrie Carmen RN. Pulse ox on. NIBP on. Door closed. Noise minimized. Lights dimmed. Warm blanket given. Pillow given. Verbal reassurance given. Diet: Patient is NPO. 07:05 Patient maintains SpO2 saturation greater than 95% on room air. kc6 08:02 No provider procedures requiring assistance completed. Patient transferred, IV remains kc6 in place. Administered Medications: 02:15 Drug: Ondansetron IVP 4 mg IVP once; over 2 minutes Route: IVP; Site: left antecubital; kd3 06:14 Follow up: Response: No adverse reaction; Pain is decreased kd3 02:15 Drug: morphine IVP or IV 4 mg IVP once over 4 mins Route: IVP; Infused Over: 4 mins; kd3 Site: left antecubital; 06:14 Follow up: Response: No adverse reaction; Pain is decreased kd3 02:15 Drug: NS 0.9% IV 1000 ml IV at 1 bolus Per protocol; to be given as a bolus over 60 kd3 minutes Route: IV; Rate: 1 bolus; Site: left antecubital; 06:15 Follow up: IV Status: Completed infusion kd3 02:15 Drug: Famotidine IVP 20 mg IVP once; dilute with 10 mL 0.9% NaCl; give over 2 minutes kd3 Route: IVP; Site: left antecubital; 06:14 Follow up: Response: No adverse reaction kd3 04:38 Drug: morphine IVP or IV 4 mg IVP once over 4 mins Route: IVP; Infused Over: 4 mins; rg5 Site: left antecubital; 06:14 Follow up: Response: No adverse reaction; Pain is decreased kd3 05:45 Drug: metroNIDAZOLE IVPB 500 mg 100 ml IVPB once over 30 mins Volume: 100 ml; Route: kd3 IVPB; Infused Over: 30 mins; Site: left antecubital; 06:11 Follow up: IV Status: Completed infusion kd3 06:11 Drug: Ciprofloxacin IVPB 400 mg 200 ml IVPB once over 60 mins Volume: 200 ml; Route: kd3 IVPB; Infused Over: 60 mins; Site: left antecubital; 07:07 Follow up: Response: No adverse reaction; IV Status: Completed infusion; IV Intake: kc6 200ml 06:11 Drug: NS 0.9% IV 1000 ml IV at 1 bolus Per protocol; to be given as a bolus over 120 kd3 minutes Route: IV; Rate: 1 bolus; Site: left antecubital; 07:07 Follow up: Response: No adverse reaction; IV Status: Completed infusion; IV Intake: kc6 1000ml 06:11 Drug: HYDROmorphone IVP 1 mg IVP once Route: IVP; Site: left antecubital; kd3 07:07 Follow up: Response: No adverse reaction; RASS: Alert and Calm (0) kc6 07:26 Drug: Potassium Chloride IV 10 mEq IV at calculated rate once; administer over 1-2 kc6 hours Route: IV; Rate: calculated rate; Site: left antecubital; 08:02 Follow up: Response: No adverse reaction; IV Status: Infusion continued upon transfer; kc6 IV Intake: 50ml Medication: 02:16 VIS not applicable for this client. kd3 Intake: 07:07 IV: 200ml; Total: 200ml. kc6 07:07 IV: 1000ml; Total: 1200ml. kc6 08:02 IV: 50ml; Total: 1250ml. kc6 Outcome: 05:02 ER care complete, transfer ordered by MD. asif 08:02 Transferred by [facility]. to [facility], Transfer form kc6 completed. 08:02 Condition: good 08:02 Instructed on the need for transfer, 08:03 Patient left the ED. kc6 Signatures: Dispatcher [employer] EDMS Chris Tineo PA PA cp Doucette, Kyli, RN RN kd3 Jaquelin Pizarro RN RN kc6 Prabha Barbour 2 Holly Vargas [facility] Mayito Drake RN RN rg5 Corrections: (The following items were deleted from the chart) 06:57 06:12 NGT: inserted 16 Fr. via right nare. Patient tolerated well. kd3 kd3
--- NOTE | 2025-02-17 05:03 | EDPHYS ---
Physician Documentation [facility] Name: Matt Robles Age: 49 yrs Sex: Male : 1975 Arrival Date: 02/17/2025 Time: 00:45 Bed 14 Private MD: SANTINO Physician Chris Beltrán HPI: 02/17 01:15 This 49 yrs old Black Male presents to ER via Ambulatory with complaints of Abdominal cp Pain. 01:15 The patient presents with abdominal pain that is diffuse. Onset: The symptoms/episode cp began/occurred yesterday. Associated signs and symptoms: Pertinent positives: nausea, Pertinent negatives: chest pain, constipation, diarrhea, fever, active vomiting. The symptoms are described as constant. 01:15 The patient has experienced similar episodes in the past, today's symptoms are similar, cp to when the patient was apparently diagnosed with small bowel obstruction. Historical: - Allergies: 00:57 Toradol; kd3 - PMHx: 00:57 CYSTIC FIBROSIS; ileus; kd3 - PSHx: 00:57 Appendectomy; Bilateral Inguinal Hernia Repair; kd3 - Immunization history:: Adult Immunizations up to date. - Infectious Disease History:: Denies. - Social history:: Smoking status: Patient denies any tobacco usage or history of. ROS: 01:20 Constitutional: Negative for body aches, chills, fever, poor PO intake, cp 01:20 Cardiovascular: Negative for chest pain, edema, palpitations, cp 01:20 Respiratory: Negative for cough, shortness of breath, wheezing, 01:20 Abdomen/GI: Positive for abdominal pain, nausea, 01:20 Eyes: Negative for injury, pain, redness, and discharge, cp 01:20 ENT: Negative for drainage from ear(s), ear pain, sore throat, difficulty swallowing, cp difficulty handling secretions, 01:20 Neuro: Negative for altered mental status, dizziness, headache, weakness, 01:20 All other systems are negative, Exam: 01:23 Constitutional: The patient appears in no acute distress, alert, awake, cp non-diaphoretic, non-toxic, well developed, well nourished, uncomfortable, 01:23 Head/Face: Normocephalic, atraumatic. cp 01:23 Eyes: Periorbital structures: appear normal, Conjunctiva: normal, no exudate, no injection, Sclera: no appreciated abnormality, Lids and lashes: appear normal, bilaterally, : ENT: External ear(s): are unremarkable, Nose: is normal, Mouth: Lips: moist, Oral mucosa: moist, Posterior pharynx: Airway: no evidence of obstruction, patent, : Chest/axilla: Inspection: normal, : Cardiovascular: Rate: normal, Rhythm: regular, : Respiratory: the patient does not display signs of respiratory distress, Respirations: normal, no use of accessory muscles, no retractions, labored breathing, is not present, Breath sounds: are clear throughout, no decreased breath sounds, no stridor, no wheezing, : Abdomen/GI: Inspection: scar(s), mid line, Bowel sounds: active, all quadrants, Palpation: soft, in all quadrants, severe abdominal tenderness, in the right upper quadrant and right lower quadrant, rebound tenderness, is not appreciated, involuntary guarding, is not appreciated, : Back: pain, is absent, ROM is normal, : Neuro: Orientation: to person, place \T\ time. Mentation: is normal, Vital Signs: 00:56 BP 148 / 86; Pulse 94; Resp 18; Temp 97.5(O); Pulse Ox 98% on R/A; Weight 72.57 kg; kd3 Height 6 ft. 1 in. ; 02:16 BP 110 / 71; Pulse 82; Resp 18; Pulse Ox 96% on R/A; kd3 03:28 BP 104 / 66; Pulse 81; Resp 18; Pulse Ox 96% on R/A; kd3 04:11 BP 123 / 85; Pulse 96; Resp 17; Pulse Ox 100% on R/A; kd3 06:13 BP 141 / 78; Pulse 92; Resp 19; Pulse Ox 96% on R/A; kd3 07:06 BP 133 / 80; Pulse 85; Resp 18 S; Pulse Ox 95% on R/A; kc6 08:02 BP 124 / 86; Pulse 90; Resp 18 S; Pulse Ox 99% on R/A; kc6 00:56 Body Mass Index 21.11 (72.57 kg, 185.42 cm) kd3 MDM: 05:02 Medical Screening Exam initiated cp 05:54 ED course: consult with hospitalist at [facility], DR Combs, will accept patient cp after discussion. 05:55 Data reviewed: vital signs, nurses notes, lab test result(s), radiologic studies, CT cp scan, and as a result, I will transfer patient. 05:55 Differential diagnosis: bowel obstruction, non-specific abd pain, ileus, constipation. cp I considered the following discharge prescriptions or medication management in the emergency department Medications were administered in the Emergency Department. See MAR. Counseling: I had a detailed discussion with the patient and/or guardian regarding the historical points, exam findings, and any diagnostic results supporting the discharge/admit diagnosis, lab results, radiology results, the need to transfer to another facility, for higher level of care. Response to treatment: the patient's symptoms have mildly improved after treatment. 02/17 01:12 Order name: CBC with Diff; Complete Time: 02:32 cp 02/17 01:12 Order name: CMP; Complete Time: 02:32 cp 02/17 01:12 Order name: Lipase; Complete Time: 02:32 cp 02/17 01:12 Order name: CT Abd/Pelvis - IV Contrast Only cp 02/17 06:05 Order name: XRAY Abdomen 1 View (KUB) cp 02/17 01:12 Order name: IV Saline Lock; Complete Time: 02:15 cp 02/17 01:12 Order name: Labs collected and sent; Complete Time: 02:15 cp 02/17 05:31 Order name: Nasogastric Tube; Complete Time: 06:11 cp Administered Medications: 02:15 Drug: Ondansetron IVP 4 mg IVP once; over 2 minutes Route: IVP; Site: left antecubital; kd3 06:14 Follow up: Response: No adverse reaction; Pain is decreased kd3 02:15 Drug: morphine IVP or IV 4 mg IVP once over 4 mins Route: IVP; Infused Over: 4 mins; kd3 Site: left antecubital; 06:14 Follow up: Response: No adverse reaction; Pain is decreased kd3 02:15 Drug: NS 0.9% IV 1000 ml IV at 1 bolus Per protocol; to be given as a bolus over 60 kd3 minutes Route: IV; Rate: 1 bolus; Site: left antecubital; 06:15 Follow up: IV Status: Completed infusion kd3 02:15 Drug: Famotidine IVP 20 mg IVP once; dilute with 10 mL 0.9% NaCl; give over 2 minutes kd3 Route: IVP; Site: left antecubital; 06:14 Follow up: Response: No adverse reaction kd3 04:38 Drug: morphine IVP or IV 4 mg IVP once over 4 mins Route: IVP; Infused Over: 4 mins; rg5 Site: left antecubital; 06:14 Follow up: Response: No adverse reaction; Pain is decreased kd3 05:45 Drug: metroNIDAZOLE IVPB 500 mg 100 ml IVPB once over 30 mins Volume: 100 ml; Route: kd3 IVPB; Infused Over: 30 mins; Site: left antecubital; 06:11 Follow up: IV Status: Completed infusion kd3 06:11 Drug: Ciprofloxacin IVPB 400 mg 200 ml IVPB once over 60 mins Volume: 200 ml; Route: kd3 IVPB; Infused Over: 60 mins; Site: left antecubital; 07:07 Follow up: Response: No adverse reaction; IV Status: Completed infusion; IV Intake: kc6 200ml 06:11 Drug: NS 0.9% IV 1000 ml IV at 1 bolus Per protocol; to be given as a bolus over 120 kd3 minutes Route: IV; Rate: 1 bolus; Site: left antecubital; 07:07 Follow up: Response: No adverse reaction; IV Status: Completed infusion; IV Intake: kc6 1000ml 06:11 Drug: HYDROmorphone IVP 1 mg IVP once Route: IVP; Site: left antecubital; kd3 07:07 Follow up: Response: No adverse reaction; RASS: Alert and Calm (0) kc6 07:26 Drug: Potassium Chloride IV 10 mEq IV at calculated rate once; administer over 1-2 kc6 hours Route: IV; Rate: calculated rate; Site: left antecubital; 08:02 Follow up: Response: No adverse reaction; IV Status: Infusion continued upon transfer; kc6 IV Intake: 50ml Disposition Summary: 02/17/25 05:02 Transfer Ordered Notes: Transfer Location: [facility] cp Reason: Higher level of care cp Condition: Stable cp Problem: an acute exacerbation cp Symptoms: have improved cp Accepting Physician: doctor(02/17/25 08:03) kc6 Diagnosis - Cystic fibrosis with other intestinal manifestations cp - Other intestinal obstruction cp Forms: - Medication Reconciliation Form cp - SBAR form cp Signatures: Dispatcher [employer] Chris Cordoba PA PA cp Doucette, Kyli RN RN kd3 Jaquelin Pizarro RN RN kc6 Mayito Drake RN RN rg5 Corrections: (The following items were deleted from the chart) 05:34 05:02 doctor yefri cp 08:03 05:34 doctor cp kc6
--- NOTE | 2025-02-17 05:37 | RAD REPORT ---
CLINICAL HISTORY: Abdominal pain. COMPARISON: CT Abdomen Pelvis 04/15/2024. TECHNIQUE: CT ABDOMEN PELVIS WITH IV CONTRAST on 02/17/2025 1:12 AM CDT This exam was performed according to our departmental dose-optimization program, which includes autom ated exposure control, adjustment of the mA and/or kV according to patient size and/or use of iterative reconstruction technique. FINDINGS: Lower lungs are clear. Abdomen: The liver is normal in appearance. There is no biliary dilatation. Gallbladder is normal in appearance. The pancreas and spleen are normal in appearance. The adrenal glands and kidneys are unremarkable. Abdominal aorta is normal in course and caliber without aneurysm. There is no free air. There is no r etroperitoneal adenopathy. Pelvis: Stomach is distended with fluid as is much of the small bowel in the mid and upper abdomen. Distal small bowel is decompressed. There may be postoperative changes of the ascending colon. There is moderate amount of stool within the colon. There is fluid in the proximal colon. Degree of s mall bowel dilatation is extensive, with several loops measuring up to 7.1 cm. Urinary bladder is unremarkable. There is no free fluid. Skeleton: There are no acute osseous findings. No suspicious bony lesions. IMPRESSION: Extensive small bowel dilatation with decompressed distal small bowel. Findings are consistent with a high-grade small bowel obstruction. Electronically signed by: Shailesh Rodriguez MD 02/17/2025 05:33 AM CDT Due to temporary technical issues with the PACS/Autopilot (formerly [employer]) reporting system, reports are being wendie d by the in-house radiologist without review as a courtesy to ensure prompt reporting the interpreting radiologist is fully responsible for the content of the report. Transcribed Date/Time: 02/17/2025 5:36 AM
[2025-02-17] MEDS ORDERED: METRONIDAZOLE 500mg IVPB 500 MG/100 ML BAG IV ONE (05:42)
[2025-02-17] MEDS ORDERED: CIPROFLOXACIN 400mg IV 400 MG/200 ML BAG IV ONE (05:42)
[2025-02-17] MEDS ORDERED: HYDROMORPHONE HCL 1 MG/ML INJ ONE (06:05)
--- NOTE | 2025-02-17 07:06 | RAD REPORT ---
EXAM: XR of the abdomen HISTORY: Abdominal pain post ng tube placement COMPARISON: None FINDINGS: XR of the abdomen shows a significant fecal retention.. Numerous distended small bowel loop s are present. Enteric tube tip is in the stomach. No suspicious calcifications are seen. The bones are unremarkable. IMPRESSION: Enteric tube tip is in the stomach.
[2025-02-17] MEDS ORDERED: KCL 20 MEQ/100 mL IVPB 100 ML IV ONE (07:13)
[2025-02-17 08:22] VITALS: TEMP 97.5
[2025-02-17 08:34] VITALS: BP 124/86; O2SAT 99
== END 2025-02-17 08:03 | disposition short-term general hospital (02) ==
LOC: ER 00:45
DX: E84.19 Cystic fibrosis with other intestinal manifestations (principal); K56.699 Other intestinal obstruction unspecified as to partial versus complete obstruction
CPT/HCPCS: 96365; 96367; 96361; 85025; 36415; 83690; 80053; 74177; 74018; 96375; 99285; Q9967; J3480; J1171; J2405; J0744; J7030 ×3

== ENCOUNTER 2025-03-01 19:39 | Emergency (ER) | payer OTHER ==
--- OUTSIDE RECORDS SUMMARY | 2025-03-01 19:43 | XMS REPORT | Continuity of Care Document ---
Author Name Unknown Address [address] [place] [address] Organization [facility] Address [address] [place] [address] Care Team Providers Care Life Care Planner Name Role Phone Shannon Coulter DO Attending Clinician [phone] SHANNON COULTER Attending Clinician Unav[employer]ab le Payers Payer Name Policy Type Policy Number Effective Date Expirati on Date Source Problems Condition Name Condition Details Condition Category Status Onset Date Resolution Date Last Treatment Date Treating Clinician Comments Source No known active problems No known active problems Disease [facility] Allergies, Adverse Reactions, Alerts Allergy Name Allergy Type Status Severity Reaction(s) Onset Date Inactive Date Treating Clinician Comments Source Ketorola c Propensi ty to adverse reaction s Active Hives 10-18 00:00: 00 [facility] KETOROLA C DRUG INGREDI Active Hives 10-18 00:00: 00 [facility] Social History Social Habit Start Date Stop Date Quantity Comments Source Sex Assigned At [facility] Exposure to SARS-CoV-2 (event) Not sure [facility] Smoking Status Start Date Stop Date Source Unknown if ever smoked [facility] Medications Ordered Medication Name Filled Medication Name Start Date Stop Date Current Medication? Ordering Clinician Indication Dosage Frequency Signature (SIG) Comments Components Source ondansetron (ZOFRAN (PF)) injection 4 mg 10-19 08:00: 00 10-19 06:57 :00 No 4mg 4 mg, Slow IV Push, ONCE, 1 dose, 10/19/20 at 0200, FAROOQ [facility] D5W 0.45% NaCl (1/2NS) IV infusion 1,000 mL 10-19 07:45: 00 Yes 1000mL at 125 mL/hr, 1,000 mL, IV Infusion, CONTINUOUS , Starting 10/19/20 at 0145, Until Discontinu ed, FAROOQ [facility] iohexol (OMNIPAQUE 350 BULK-100 mL) injection 120 mL 10-19 04:15: 00 10-19 03:58 :00 No 120mL 120 mL, Intravenou s, ONCE, 1 dose, 10/18/20 at 2215, Routine [facility] NaCl 0.9% (NS) bolus infusion 1,000 mL 10-19 03:15: 00 10-19 04:55 :00 No 1000mL at 999 mL/hr, 1,000 mL, IV Infusion, ONCE, 1 dose, 10/18/20 at 2115, [facility] No known medications No [facility] Vital Signs Vital Name Observation Time Observation Value Comments S ource Systolic blood pressure 2020-10-19 07:00:00 134 mm[Hg] [facility] Diastolic blood pressure 2020-10-19 07:00:00 92 mm[Hg] [facility] Heart rate 2020-10-19 07:00:00 53 /min [facility] Respiratory rate 2020-10-19 07:00:00 15 /min [facility] Oxygen saturation in Arterial blood by Pulse oximetry 2020-10-19 07:00:00 100 /min [facility] Body temperature 2020-10-19 03:08:00 36.72 [place] [facility] Body height 2020-10-19 03:08:[address] [facility] Body weight 2020-10-19 03:08:[address] [facility] BMI 2020-10-19 03:08:00 20.45 kg/m2 [facility] Systolic blood pressure 2020-10-19 07:00:00 134 mm[Hg] [facility] Diastolic blood pressure 2020-10-19 07:00:00 92 mm[Hg] [facility] Heart rate 2020-10-19 07:00:00 53 /min [facility] Respiratory rate 2020-10-19 07:00:00 15 /min [facility] Oxygen saturation in Arterial blood by Pulse oximetry 2020-10-19 07:00:00 100 /min [place] [facility] Body temperature 2020-10-19 03:08:00 36.72 [place] [facility] Body height 2020-10-19 03:08:[address] [facility] Body weight 2020-10-19 03:08:[address] [facility] BMI 2020-10-19 03:08:00 20.45 kg/m2 [facility] Procedures Procedure Date / Time Performed Performing Clinicia n Source URINALYSIS 2020-10-19 04:37:00 Shannon Coulter [facility] CT ABDOMEN PELVIS W CONTRAST 2020-10-19 04:02:25 Shannon Coulter [facility] LIPASE 2020-10-19 03:17:00 Shannon Coulter [facility] TROPONIN I 2020-10-19 03:17:00 Shannon Coulter [facility] HEPATIC FUNCTION PANEL (88993) (ALB,T.PRO,BILI T,BU/BC,ALT,AST,ALK PHOS) 2020-10-19 03:17:00 Shannon Coulter [facility] BASIC METABOLIC PANEL (NA, K, CL, CO2, GLUCOSE, BUN, CREATININE, CA) 2020-10-19 03:17:00 Shannon Coulter [facility] CBC WITH DIFF 2020-10-19 03:17:00 [facility] (ID NOW RAPID TESTING) 2020-10-19 03:17:00 Shannon Coulter [facility] Encounters Start Date/Time End Date/Time Encounter Type Admission Type Attending Clinicians Care Facility Care Department Encounter ID Source 2020-10-18 21:04:00 2020-10-19 01:30:00 Emergency Shannon Coulter [facility] [id number] [facility] 2020-10-18 21:04:00 2020-10-19 01:30:00 Emergency Shannon Coulter [facility] [id number] 2020-10-18 21:04:00 2020-10-18 21:04:00 Emergency X SHANNON COULTER [facility] ERT [id number] [facility] Results Test Description Test Time Test Comments Results Result Co mments Source [facility] [id number] 03:54:00* Test Item Value Reference Range Interpretation Comme nts TROPONIN I (test code = 3008423364) <0.012 See_Comment [Automated message] The system which generated this result transmitted reference range: <=0.034 ng/mL. The reference range was not used to interpret this result as normal/abnormal. SHANA (test code = SHANA) Equal or Less than 0.034 ng/ml---Normal ?Note: Cardiac troponin begins to [...] patient's use of biotin. ? Lab Interpretation (test code = 86255-8) Normal [facility] [id number] 03:44:00* Test Item Value Reference Range Interpretation Comme nts LIPASE (test code = 2468456068) <10 0-220 Lab Interpretation (test cod e = 92581-4) Normal [facility] (NA, K, CL, CO2, GLUCOSE, BUN, CREATININE, CA)2020-10-19 03:43:00* Test Item Value Reference Range Interpretation Comme nts NA (test code = 6066443964) 140 mmol/L 135-145 K (test code = 2914913572) 4.0 mmol/L 3.5-5 CL (test code = 1641433487) 100 mmol/L 98-108 CO2 TOTAL (test code = 3183312807) 33 mmol/L 23-31 H AGAP (test code = 5862272121) 2-16 BUN (test code = 1616319184) 5 mg/dL 7-23 L GLUCOSE (test code = 7156614850) 109 mg/dL 70-110 CREATININE (test code = 7879651752) 1.17 mg/dL 0.6-1.25 CALCIUM (test code = 8310790063) 9.5 mg/dL 8.6-10.6 eGFR Calculation (Non-) (test code = 4181108201) mL/min/1.73m2 eGFR Calculation () (test code = 5773379608) mL/min/1.73m2 SHANA (test code = SAHNA) Association of Glomerular Filtration Rate (GFR) and [...] or abnormalities in imaging tests). Lab Interpretation (test code = 76877-3) Abnormal [facility] (ALB, T.PRO, BILI T, BU/BC, ALT, AST, ALK PHOS)2020-10-19 03:43:00* Test Item Value Reference Range Interpretation Comme nts TOTAL BILI (test code = 5937182078) 1.6 mg/dL 0.1-1.1 H BILI UNCON (test code = 4151202843) 1.6 mg/dL 0.1-1.1 H BILI CONJ (test code = 7618781059) 0.0 mg/dL 0-0.3 T PROTEIN (test code = 8832632381) 7.2 g/dL 6.3-8.2 ALBUMIN (test code = 1202296767) 4.3 g/dL 3.5-5 ALK PHOS (test code = 3337358146) 64 U/L 34-122 ALTv (test code = 1742-6) 17 U/L 5-50 AST(SGOT) (test code = 3041321892) 27 U/L 13-40 Lab Interpretation (test cod e = 81186-7) Abnormal [facility]OVID[facility] (ID NOW RAPID TESTING)2020-10-19 03:42:00* Test Item Value Reference Range Interpretation Comme nts SARS-CoV-2 Rapid ID NOW (test code = 38627-6) Not Detected Not Detected SHANA (test code = SHANA) ID NOW COVID-19 As say is an isothermal nucleic acid amplification test intended for the qualitative detection of nucleic acid from SARS-CoV-2 viral RNA in nasopharyngeal (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 It is used under Emergency Use [...] patient testing if clinically indicated. Lab Interpretation (test code = 41710-7) Normal [facility] with [id number] 03:28:00* Test Item Value Reference Range Interpretation Comme nts WBC (test code = 6690-2) See_Comment [Automated [employer] ge] The system which generated this result transmitted reference range: 4.20 - 10.70 10*3/?L. The reference range was not used to interpret this result as normal/abnormal. RBC (test code = 789-8) See_Comment L [Automated [employer]] The system which generated this result transmitted reference range: 4.26 - 5.52 10*6/?L. The reference range was not used to interpret this result as normal/abnormal. HGB (test code = 718-7) 12.7 g/dL 12.2-16.4 HCT (test code = 4544-3) 38.1 % 38.4-49.3 L MCV (test code = 787-2) 92.3 fL 81.7-95.6 MCH (test code = 785-6) 30.8 pg 26.1-32.7 MCHC (test code = 786-4) 33.3 g/dL 31.2-35 RDW-SD (test code = 99729-8) 44.1 fL 38.5-51.6 RDW-CV (test code = 788-0) 12.9 % 12.1-15.4 PLT (test code = 777-3) See_Comment [Automated [employer]] The system which generated this result transmitted reference range: 150 - 328 10*3/?L. The reference range was not used to interpret this result as normal/abnormal. MPV (test code = 43806-7) 11.8 fL 9.8-13 NRBC/100 WBC (test code = 8931264992) See_Comment [Automated me ssage] The system which generated this result transmitted reference range: 0.0 - 10.0 /100 WBCs. The reference range was not used to interpret this result as normal/abnormal. NRBC x10^3 (test code = 4359312635) <0.01 See_Comment [Automated messa ge] The system which generated this result transmitted reference range: 10*3/?L. The reference range was not used to interpret this result as normal/abnormal. GRAN MAT (NEUT) % (test code = 770-8) 54.1 % IMM GRAN % (test code = 1780383659) 0.20 % LYMPH % (test code = 736-9) 30.0 % MONO % (test code = 5905-5) 11.6 % EOS % (test code = 713-8) 3.6 % BASO % (test code = 706-2) 0.5 % GRAN MAT x10^3(ANC) (test code = 6084009623) 3.28 10*3/uL 1.99-6.95 IMM GRAN x10^3 (test code = 6587151593) <0.03 0-0.06 LYMPH x10^3 (test code = 731-0) 1.82 10*3/uL 1.09-3.23 MONO x10^3 (test code = 742-7) 0.70 10*3/uL 0.36-1.02 EOS x10^3 (test code = 711-2) 0.22 10*3/uL 0.06-0.53 BASO x10^3 (test code = 704-7) 0.03 10*3/uL 0.01-0.09 Lab Interpretation (test code = 51331-9) Abnormal [facility]"
[2025-03-01] MEDS ORDERED: ONDANSETRON 4 MG/2 ML VIAL ONE (20:30)
[2025-03-01] MEDS ORDERED: DICYCLOMINE HCL 20 MG/2 ML AMP IM ONE ×2 (20:30→22:58)
[2025-03-01] MEDS ORDERED: MORPHINE 4 MG/ML SYR ONE (20:31)
[2025-03-01] MEDS ORDERED: NA CHLORIDE 0.9% 1,000 ML ONE (20:31)
[2025-03-01 20:44] LABS: Absolute Eosinophils 0.4 K/uL (0-0.5); Absolute Lymphocytes (CBC) 1.8 K/uL (0.7-4.9); Absolute Monocytes 0.7 K/uL (0.1-1.3); Absolute Neutrophil 3.4 K/uL (1.8-8.0); Basophils % 0.7 % (0-1.3); Eosinophils % 6.3 % (0-4.4); Hematocrit 41.2 % (39.6-49.0); Hemoglobin 13.8 g/dL (13.6-17.9); Lymphocytes % 28.8 % (15.3-44.8); MCH 30.9 pg (27.0-35.0); MCHC 33.4 g/dL (32.0-36.0); MCV 92.5 fL (80-100); MPV 9.8 fL (7.6-11.3); Monocytes % 10.4 % (3.3-12.3); Neutrophils % 53.8 % (41.7-73.7); Nucleated Red Blood Cells % 0.1 % (0-0); Platelets 268 thou/uL (152-406); RBC Red Blood Cell Count 4.46 M/uL (4.33-5.43); Red Cell Distribution Width 13.2 % (12.1-15.2)
[2025-03-01 20:56] LABS: ALT/SGPT 28 U/L (16-61); Albumin 3.7 g/dL (3.4-5.0); Albumin/Globulin Ratio 0.8 (1.1-1.8); Alkaline Phosphatase 83 U/L (45-117); Anion Gap 8.3 mEq/L (5.0-15.0); BUN Blood Urea Nitrogen 11 mg/dL (7-18); Bicarbonate 23 mEq/L (21-32); Bilirubin Total 0.7 mg/dL (0.2-1.0); Globulin 4.6 g/dL (2.3-3.5); Glomerular Filtration Rate 56 ml/min (=/>90); Glucose Level 142 mg/dL (74-106); Protein, Total 8.3 g/dL (6.4-8.2); Sodium Level 135 mEq/L (136-145)
[2025-03-01 21:13] LABS: AST/SGOT 18 U/L (15-37); Lipase < 6 U/L (13-75); Potassium 4.3 mEq/L (3.5-5.1)
[2025-03-01 21:58] LABS: Specific Gravity 1.011 (1.005-1.030); Sqamous Epithelial None Seen /HPF (None Seen); Urine Bacteria None Seen /HPF (<20); Urine Bilirubin NEGATIVE (Negative); Urine Blood Negative (Negative); Urine Clarity Clear (Clear); Urine Color Light-Yellow (Yellow); Urine Glucose NEGATIVE (Negative); Urine Ketones NEGATIVE (Negative); Urine Micro Reflex YN NO BILL MICROSCOPIC; Urine Mucus Slight /HPF (None Seen); Urine Nitrite NEGATIVE (Negative); Urine Protein NEGATIVE (Negative); Urine RBC <5 /HPF (None Seen); Urine Urobilinogen Normal (Normal); Urine WBC <5 /HPF (<5)
--- NOTE | 2025-03-01 22:16 | RAD REPORT ---
EXAMINATION: CT ABDOMEN AND PELVIS WITH CONTRAST CLINICAL INDICATION: ABD PAIN TECHNIQUE: CT abdomen and pelvis was performed, after the administration of IV contrast, as per [facility] protocol. Axial, sagittal and coronal reconstructions were obtained. One or more of the following dose reduction techniques were used: Automated exposure control, adjustment of the mA and k V according to patient size, and iterative reconstruction. Unless otherwise specified, incidental findings do not require dedicated imaging follow-up. COMPARISON: 02/17/2025 FINDINGS: LOWER CHEST: The visualized lung bases are clear. LIVER: Normal in size and contour. No focal lesion. Grossly unremarkable gallbladder. SPLEEN: Normal size. No focal lesion. PANCREAS: No mass, ductal dilation, or jean paul-pancreatic fluid. ADRENALS: Normal; no mass. KIDNEYS: Normal size and contour. No hydronephrosis. GASTROINTESTINAL TRACT: There is extensive stool retained throughout the colon. Thickened small bowel loops which are fluid-filled and distended in the abdomen are seen. Fecalization of the small bowel loops is present. No free air or abscess. APPENDIX: Appendix not visualized, but no inflammatory changes in region of appendix. LYMPH NODES: No lymphadenopathy. MUSCULOSKELETAL: No acute or suspicious osseous abnormality. IMPRESSION: There is marked fecal retention throughout the colon. Thickened, fluid-filled and dilated small bowel loops are present in the left abdomen with fecalization of the small bowel contents. This may indicate partial mechanical bowel obstruction or ileus. No free air or abscess.
[2025-03-01] MEDS ORDERED: METOCLOPRAMIDE 10 MG/2mL INJ ONE (22:58)
[2025-03-01] MEDS ORDERED: MAGNESIUM CITRATE 300 ML BOT ONE (22:59)
--- NOTE | 2025-03-01 23:22 | ER ---
Nurse's Notes [facility] Name: Matt Robles Age: 49 yrs Sex: Male : 1975 Arrival Date: 03/01/2025 Time: 19:39 Bed 16 Private MD: Diagnosis: Acute ileus, Cystic fibrosis, Moderate to severe constipation Presentation: 03/01 19:50 Chief complaint: Patient states: RT LOWER ABDOMINAL PAIN AND NAUSEA BEGINNING TODAY. dd2 REPORTS THAT HE WAS HERE X1 WEEK AGO AND TRANSFERRED TO [facility] FOR STOMACH ISSUES. Coronavirus screen: At this time, the client does not indicate any symptoms associated with coronavirus-19. Ebola Screen: No symptoms or risks identified at this time. Initial Sepsis Screen: Does the patient meet any 2 criteria? No. Patient's initial sepsis screen is negative. Does the patient have a suspected source of infection? No. Patient's initial sepsis screen is negative. Risk Assessment: Do you want to hurt yourself or someone else? Patient reports no desire to harm self or others. Onset of symptoms was March 01, 2025. 19:50 Method Of Arrival: Ambulatory dd2 19:50 Acuity: BRENNA 3 dd2 Triage Assessment: 19:52 General: Appears in no apparent distress. comfortable, Behavior is calm, cooperative, dd2 appropriate for age. Pain: Complains of pain in right upper quadrant Pain currently is 10 out of 10 on a pain scale. GI: Abdomen is non-distended, Reports upper abdominal pain, nausea. Historical: - Allergies: 19:52 Toradol; dd2 - PMHx: 19:52 CYSTIC FIBROSIS; ileus; dd2 - PSHx: 19:52 Appendectomy; Bilateral Inguinal Hernia Repair; dd2 - Immunization history:: Adult Immunizations up to date. - Infectious Disease History:: Denies. - Social history:: Smoking status: Patient denies any tobacco usage or history of. - Family history:: not pertinent. Screenin:50 [facility] ED Fall Risk Assessment (Adult) History of falling in the last 3 months, jr13 including since admission No falls in past 3 months (0 pts). [facility] ED Fall Risk Assessment (Adult) Confusion or Disorientation No (0 pts) Intoxicated or Sedated No (0 pts) Impaired Gait No (0 pts) Mobility Assist Device Used No (0 pt) Altered Elimination No (0 pt) Score/Fall Risk Level 0 - 2 = Low Risk. Abuse screen: Denies threats or abuse. Denies injuries from another. Nutritional screening: No deficits noted. Tuberculosis screening: No symptoms or risk factors identified. Assessment: 20:45 General: Appears in no apparent distress. Behavior is calm, cooperative, appropriate jr13 for age. Pain: Complains of pain in chest, abdomen and pelvis Pain does not radiate. Pain at worst was 8 out of 10 on a pain scale. Quality of pain is described as sharp, Pain began suddenly. Neuro: No deficits noted. Level of Consciousness is awake, alert, obeys commands, Oriented to person, place, time, situation, Appropriate for age. Cardiovascular: Reports None Denies chest pain. Respiratory: No deficits noted. Airway is patent. GI: Abdomen is flat, Bowel sounds present X 4 quads. Reports upper abdominal pain, Patient currently denies. : Last void was March 01, 2025. Denies burning with urination. EENT: No deficits noted. No signs and/or symptoms were reported regarding the EENT system. Derm: No signs and/or symptoms reported regarding the dermatologic system. Musculoskeletal: No deficits noted. No signs and/or symptoms reported regarding the musculoskeletal system. Vital Signs: 19:50 BP 128 / 82; Pulse 83; Resp 16; Temp 97.8; Pulse Ox 100% on R/A; Weight 73.94 kg; dd2 Height 6 ft. 1 in. ; Pain 10/10; 20:49 BP 145 / 90; Pulse 82; Resp 18; Pulse Ox 99% ; jr13 22:00 BP 125 / 88; Pulse 67; Resp 18; Pulse Ox 97% ; jr13 23:00 BP 120 / 85; Pulse 65; Resp 18; Pulse Ox 99% on R/A; jr13 19:50 Body Mass Index 21.51 (73.94 kg, 185.42 cm) dd2 19:50 Pain Scale: Adult dd2 [place] Coma Score: 03/02 05:59 Eye Response: spontaneous(4). Motor Response: obeys commands(6). Verbal Response: sp4 oriented(5). Total: 15. ED Course: 03/01 19:41 Patient arrived in ED. im 19:52 Triage completed. dd2 19:52 Arm band placed on right wrist. dd2 19:59 Radiology exam delayed due to lab results not completed at this time. (BUN/Creatinine) ls3 IV insertion attempt and/or patient not having appropriate IV at this time. 20:07 Chaka Bazzi MD is Attending Physician. sp4 20:24 CBC with Diff Sent. ha1 20:24 CMP Sent. ha1 20:24 Lipase Sent. ha1 20:24 Inserted saline lock: 22 gauge in left antecubital area, using aseptic technique. Blood ha1 collected. Flushed with 10 mL NS. 20:34 Roberta Colindres, RN is Primary Nurse. jr13 20:52 Patient has correct armband on for positive identification. Placed in gown. Bed in low jr13 position. Call light in reach. Side rails up X 1. Provided Education on: Educated on plan of care. 21:57 UA W/ Microscopic Sent. jr13 22:09 CT Abd/Pelvis - IV Contrast Only In Process Unspecified. EDMS 23:20 Bharath Benoit MD is Referral Physician. sp4 23:36 No provider procedures requiring assistance completed. IV discontinued. jr13 Administered Medications: 20:30 Drug: NS 0.9% IV 1000 ml IV at 1 bolus Per protocol; to be given as a bolus over 60 ha1 minutes Route: IV; Rate: 1 bolus; Site: left antecubital; 20:30 Drug: Ondansetron IVP 4 mg IVP once; over 2 minutes Route: IVP; Site: left antecubital; ha1 20:32 Drug: morphine IVP or IV 4 mg IVP once over 4 mins Route: IVP; Infused Over: 4 mins; ha1 Site: left antecubital; 20:41 Not Given (Patient Refused): [id number] mg IM once ha1 23:02 Drug: Magnesium Citrate PO Liquid 300 ml PO once Route: PO; jr13 23:02 Drug: metoCLOPramide IVP 10 mg IVP once; over 1 to 2 minutes Route: IVP; Site: left jr13 antecubital; 23:02 Drug: Dicyclomine IM 20 mg IM once Route: IM; Site: left deltoid; jr13 Medication: 20:52 VIS not applicable for this client. jr13 Outcome: 23:21 Discharge ordered by . sp4 23:36 Discharged to home jr13 23:36 Condition: stable 23:36 Discharge instructions given to patient, 23:38 Patient left the ED. jr13 Signatures: Dispatcher [employer] EDMS bAbey Olivas ls3 Maria Luisa Clark RN RN ha1 Chaka Bazzi MD MD sp4 Neelima Wolfe DIANA, RN RN dd2 Roberta Colindres RN RN jr13 Corrections: (The following items were deleted from the chart) 20:52 20:50 PSHx: 1" of intestines removed; jr13 jr13
--- NOTE | 2025-03-01 23:22 | EDPHYS ---
Physician Documentation [facility] Name: Matt Robles Age: 49 yrs Sex: Male : 1975 Arrival Date: 03/01/2025 Time: 19:39 Bed 16 Private MD: ED Physician Chaka Bazzi HPI: 03/01 20:07 This 49 yrs old Black Male presents to ER via Ambulatory with complaints of Abdominal sp4 Pain. 03/02 05:59 Patient with past medical history of cystic fibrosis presents with complaint of right sp4 lower quadrant abdominal pain.. Patient has history of admission 02/17/2024, patient listed medications include albuterol twice daily, cholecalciferol twice daily, Creon daily, multivitamin daily, GlycoLax 3 times a day, daughter may use nebulizer daily, amitriptyline at bedtime, little bit p.o. stone twice a day, or Amitiza, Dulcolax daily, patient has history of recurrent ileus,. Historical: - Allergies: 03/01 19:52 Toradol; dd2 - PMHx: 19:52 CYSTIC FIBROSIS; ileus; dd2 - PSHx: 19:52 Appendectomy; Bilateral Inguinal Hernia Repair; dd2 - Immunization history:: Adult Immunizations up to date. - Infectious Disease History:: Denies. - Social history:: Smoking status: Patient denies any tobacco usage or history of. - Family history:: not pertinent. ROS: 03/02 05:59 Constitutional: Negative for fever, chills, and weight loss, positive right lower sp4 abdominal pain All other systems are negative, Exam: 05:59 Constitutional: This is a well developed, well nourished patient who is awake, alert, sp4 and in no acute distress. Head/Face: Normocephalic, atraumatic. Eyes: Pupils equal round and reactive to light, extra-ocular motions intact. Lids and lashes normal. Conjunctiva and sclera are not injected. Cornea within normal limits. Periorbital areas with no swelling, redness, or edema. ENT: Nares patent. No nasal discharge, no septal abnormalities noted. Tympanic membranes are normal and external auditory canals are clear. Oropharynx with no redness, swelling, or masses, exudates, or evidence of obstruction, uvula midline. Mucous membranes moist. Neck: Trachea midline, no thyromegaly or masses palpated, and no cervical lymphadenopathy. Supple, full range of motion without nuchal rigidity, or vertebral point tenderness. Chest/axilla: Normal chest wall appearance and motion. Nontender with no deformity. No lesions are appreciated. Cardiovascular: Regular rate and rhythm with a normal S1 and S2. No gallops, murmurs, or rubs. Normal PMI, no JVD. No pulse deficits. Respiratory: Lungs have equal breath sounds bilaterally, clear to auscultation and percussion. No rales, rhonchi or wheezes noted. No increased work of breathing, no retractions or nasal flaring. Abdomen/GI: Soft, with normal bowel sounds. No distension or tympany. No guarding or rebound. No evidence of tenderness throughout. Multiple scars from prior abdominal exploratory surgery. Back: No spinal tenderness. No costovertebral tenderness. Skin: Warm, dry with normal turgor. Normal color with no rashes, no lesions, and no evidence of cellulitis. MS/ Extremity: Pulses equal, no cyanosis. Neurovascular intact. Full, normal range of motion. Neuro: Awake and alert, GCS 15, oriented to person, place, time, and situation. Cranial nerves II-XII grossly intact. Motor strength 5/5 in all extremities. Sensory grossly intact. Psych: Awake, alert, with orientation to person, place and time. Behavior, mood, and affect are within normal limits Vital Signs: 03/01 19:50 BP 128 / 82; Pulse 83; Resp 16; Temp 97.8; Pulse Ox 100% on R/A; Weight 73.94 kg; dd2 Height 6 ft. 1 in. ; Pain 10/10; 20:49 BP 145 / 90; Pulse 82; Resp 18; Pulse Ox 99% ; jr13 22:00 BP 125 / 88; Pulse 67; Resp 18; Pulse Ox 97% ; jr13 23:00 BP 120 / 85; Pulse 65; Resp 18; Pulse Ox 99% on R/A; jr13 19:50 Body Mass Index 21.51 (73.94 kg, 185.42 cm) dd2 19:50 Pain Scale: Adult dd2 [place] Coma Score: 03/02 05:59 Eye Response: spontaneous(4). Motor Response: obeys commands(6). Verbal Response: sp4 oriented(5). Total: 15. MDM: 03/01 20:08 Medical Screening Exam initiated sp4 22:45 ED course: COMPARISON: 02/17/2025 FINDINGS: LOWER CHEST: The visualized lung bases are sp4 clear. LIVER: Normal in size and contour. No focal lesion. Grossly unremarkable gallbladder. SPLEEN: Normal size. No focal lesion. PANCREAS: No mass, ductal dilation, or jean paul-pancreatic fluid. ADRENALS: Normal; no mass. KIDNEYS: Normal size and contour. No hydronephrosis. GASTROINTESTINAL TRACT: There is extensive stool retained throughout the colon. Thickened small bowel loops which are fluid-filled and distended in the abdomen are seen. Fecalization of the small bowel loops is present. No free air or abscess. APPENDIX: Appendix not visualized, but no inflammatory changes in region of appendix. LYMPH NODES: No lymphadenopathy. MUSCULOSKELETAL: No acute or suspicious osseous abnormality. IMPRESSION: RADIOLOGY SERVICES REPORT There is marked fecal retention throughout the colon. Thickened, fluid-filled and dilated small bowel loops are present in the left abdomen with fecalization of the small bowel contents. This may indicate partial mechanical bowel obstruction or ileus. No free air or abscess. . 23:19 Differential diagnosis: diverticulitis, gastritis, gastroesophageal reflux disease, GI sp4 Bleed, Hepatitis. Data reviewed: vital signs, nurses notes, lab test result(s), radiologic studies, CT scan. Consideration of Admission/Observation. ED course: Patient was offered hospital admission for pain control. Patient has reported that he is feeling better and he would like to go home and try some laxatives. We will go ahead and prescribe GoLytely.. 03/02 05:59 ED course: Patient discovered at on CAT scan to have significant fecal retention in the sp4 colon. Patient states this is a common problem for him secondary to cystic fibrosis. Patient was given p.o. mag citrate. Offered admission for pain control and other management of ileus. Patient at this time states that he would like to go home and try p.o. medications and laxatives.. Patient was prescribed GoLytely and advised to consume strictly clear liquids for 24 hours.. 03/01 19:57 Order name: CBC with Diff; Complete Time: 22:34 sb4 03/01 19:57 Order name: CMP; Complete Time: 22:34 sb4 03/01 19:57 Order name: Lipase; Complete Time: 22:34 sb4 03/01 20:08 Order name: UA W/ Microscopic; Complete Time: 22:34 sp4 03/01 20:16 Order name: CRP; Complete Time: 22:34 sp4 03/01 19:57 Order name: CT Abd/Pelvis - IV Contrast Only; Complete Time: 22:34 sb4 03/01 19:57 Order name: IV Saline Lock; Complete Time: 20:24 sb4 03/01 19:57 Order name: Labs collected and sent; Complete Time: 20:24 sb4 Administered Medications: 03/01 20:30 Drug: NS 0.9% IV 1000 ml IV at 1 bolus Per protocol; to be given as a bolus over 60 ha1 minutes Route: IV; Rate: 1 bolus; Site: left antecubital; 20:30 Drug: Ondansetron IVP 4 mg IVP once; over 2 minutes Route: IVP; Site: left antecubital; ha1 20:32 Drug: morphine IVP or IV 4 mg IVP once over 4 mins Route: IVP; Infused Over: 4 mins; ha1 Site: left antecubital; 20:41 Not Given (Patient Refused): [id number] mg IM once ha1 23:02 Drug: Magnesium Citrate PO Liquid 300 ml PO once Route: PO; jr13 23:02 Drug: metoCLOPramide IVP 10 mg IVP once; over 1 to 2 minutes Route: IVP; Site: left jr13 antecubital; 23:02 Drug: Dicyclomine IM 20 mg IM once Route: IM; Site: left deltoid; jr13 Disposition Summary: 03/01/25 23:21 Discharge Ordered Notes: Location: Home sp4 Problem: new sp4 Symptoms: have improved sp4 Condition: Stable sp4 Diagnosis - Acute ileus, Cystic fibrosis, Moderate to severe constipation sp4 Followup: sp4 - With: Bharath Benoit MD - When: 7 - 10 days - Reason: Recheck today's complaints Discharge Instructions: - Discharge Summary Sheet sp4 - Living With Cystic Fibrosis, Adult sp4 Forms: - Patient Portal Instructions sp4 Prescriptions: - Cory 236-22.74-6.74 -5.86 gram Oral Recon Soln - administer 100 milliliter ORAL route every 10 minutes until fecal effluent is sp4 clear, Dispense One 4 L Cannister; 4000 milliliter; Refills: 0, Product Selection Permitted - dicyclomine 20 mg Oral tablet - take 1 tablet ORAL route 3 times per day PRN spasmodic abdominal pain; 60 sp4 tablet; Refills: 0, Product Selection Permitted Signatures: Dispatcher [employer] EDMS Maria Luisa Clark, RN RN ha1 Angie Patel PA-C PA-Roel sb4 Chaka Bazzi MD MD sp4 NEIL SHEPHERD RN RN dd2 Roberta Colindres RN RN jr13 Corrections: (The following items were deleted from the chart) 19:57 19:57 CBC+H.LAB.BRZ ordered. EDMS EDMS 19:57 19:57 COMPREHENSIVE METABOLIC PANEL+C.LAB.BRZ ordered. EDMS EDMS 19:57 19:57 LIPASE+C.LAB.BRZ ordered. EDMS EDMS 19:58 19:58 Abdomen Pelvis W Con+CT.RAD.BRZ ordered. EDMS EDMS 20:52 20:50 PSHx: 1" of intestines removed; jr13 jr13
[2025-03-02 00:20] VITALS: TEMP 97.8
[2025-03-02 00:24] VITALS: BP 120/85; O2SAT 99
== END 2025-03-01 23:38 | disposition home or self-care (01) ==
LOC: ER 19:39
DX: K56.7 Ileus, unspecified (principal); K59.00 Constipation, unspecified; E84.9 Cystic fibrosis, unspecified
CPT/HCPCS: 85025; 81001; 36415; 83690; 80053; 86140; 74177; 96375; 96372; 96374; 99284; Q9967; J2765; J0500; J2405; J7030

== ENCOUNTER 2025-05-26 16:21 | Emergency (ER) | payer OTHER ==
[2025-05-26] MEDS ORDERED: NA CHLORIDE 0.9% 1,000 ML ONE (17:08)
[2025-05-26] MEDS ORDERED: METOCLOPRAMIDE 10 MG/2mL INJ ONE (17:08)
[2025-05-26] MEDS ORDERED: MORPHINE 4 MG/ML SYR ONE (17:08)
[2025-05-26] MEDS ORDERED: DIPHENHYDRAMINE 50 MG/ML VIAL ONE (17:08)
[2025-05-26 18:00] LABS: Absolute Lymphocytes (CBC) 1.5 K/uL (0.7-4.9); Hematocrit 39.3 % (39.6-49.0); Hemoglobin 13.1 g/dL (13.6-17.9); MCH 30.6 pg (27.0-35.0); MCHC 33.4 g/dL (32.0-36.0); MCV 91.7 fL (80-100); MPV 8.7 fL (7.6-11.3); Nucleated RBC Absolute Count 0.0 (0-0); Nucleated Red Blood Cells % 0.0 % (0-0); RBC Red Blood Cell Count 4.29 M/uL (4.33-5.43); White Blood Count 7.50 thou/uL (4.3-10.9)
[2025-05-26 18:21] LABS: ALT/SGPT 28 U/L (16-61); AST/SGOT 12 U/L (15-37); Albumin 3.4 g/dL (3.4-5.0); Albumin/Globulin Ratio 0.9 (1.1-1.8); Alkaline Phosphatase 98 U/L (45-117); Anion Gap 9.8 mEq/L (5.0-15.0); BUN Blood Urea Nitrogen 17 mg/dL (7-18); Globulin 3.9 g/dL (2.3-3.5); Glucose Level 139 mg/dL (74-106); Lipase < 6 U/L (13-75); Potassium 3.8 mEq/L (3.5-5.1)
--- NOTE | 2025-05-26 19:04 | RAD REPORT ---
EXAM: Abdomen Acute Series HISTORY: Abdominal pain COMPARISON: 04/28/2025 FINDINGS: The lungs are clear bilaterally. The cardiomediastinal silhouette is within normal limits. Diffusely distended small bowel and colon. No definite bowel obstruction. No free air or air-fluid levels are seen on upright examination. No suspicious calcifications are seen. No acute osseous abnormality. Other: n/a IMPRESSION 1. Nonspecific, nonobstructive bowel gas pattern with gaseous distention of the small bowel and colon . 2. No acute cardiopulmonary disease.
--- NOTE | 2025-05-26 19:33 | ER ---
Nurse's Notes [facility] Name: Matt Robles Age: 49 yrs Sex: Male : 1975 Arrival Date: 05/26/2025 Time: 16:21 Bed 20 Private MD: Diagnosis: Constipation, unspecified;Abdominal pain, unspecified;Nausea Presentation: 05/26 16:31 Chief complaint: Patient states: he has been having abdominal pain that started today. ap3 patient also reports last BM was Tuesday05/22/25 patient states his current pain level is a 10/10. Coronavirus screen: At this time, the client does not indicate any symptoms associated with coronavirus-19. Ebola Screen: No symptoms or risks identified at this time. Initial Sepsis Screen: Does the patient meet any 2 criteria? No. Patient's initial sepsis screen is negative. Does the patient have a suspected source of infection? No. Patient's initial sepsis screen is negative. Risk Assessment: Do you want to hurt yourself or someone else? Patient reports no desire to harm self or others. Onset of symptoms was May 26, 2025. 16:31 Method Of Arrival: Ambulatory ap3 16:31 Acuity: BRENNA 3 ap3 Triage Assessment: 16:33 General: Appears in no apparent distress. Behavior is calm, cooperative, appropriate ap3 for age. Pain: Complains of pain in abdomen Pain currently is 10 out of 10 on a pain scale. Neuro: Level of Consciousness is awake, alert, obeys commands, Oriented to person, place, time, situation. Cardiovascular: Patient's skin is warm and dry. Respiratory: Airway is patent Respiratory effort is even, unlabored, Respiratory pattern is regular, symmetrical. GI: Reports lower abdominal pain, upper abdominal pain, constipation, nausea. Historical: - Allergies: 16:33 Toradol; ap3 - PMHx: 16:33 CYSTIC FIBROSIS; ileus; ap3 - PSHx: 16:33 Appendectomy; Bilateral Inguinal Hernia Repair; ap3 - Immunization history:: Adult Immunizations up to date. - Infectious Disease History:: Denies. - Social history:: Smoking status: Patient denies any tobacco usage or history of. Screenin:33 [facility] ED Fall Risk Assessment (Adult) History of falling in the last 3 months, ap3 including since admission No falls in past 3 months (0 pts) Confusion or Disorientation No (0 pts) Intoxicated or Sedated No (0 pts) Impaired Gait No (0 pts) Mobility Assist Device Used No (0 pt) Altered Elimination No (0 pt) Score/Fall Risk Level 0 - 2 = Low Risk Oriented to surroundings, Maintained a safe environment, Educated pt \T\ family on fall prevention, incl call for assistance when getting out of bed, Assessed \T\ reinforced patient's understanding of fall precautions, Hourly rounding (assess needs \T\ fall precautionary measures) done, Used ambulatory aids as needed (educated on \T\ assisted with). Abuse screen: Denies threats or abuse. Nutritional screening: No deficits noted. Tuberculosis screening: No symptoms or risk factors identified. Assessment: 17:00 General: Appears uncomfortable, Behavior is calm, cooperative. Pain: Complains of pain cf3 in abdomen Pain at worst was 9 out of 10 on a pain scale. Quality of pain is described as aching, Pain began 1 day ago. Is continuous. Neuro: Forrest Agitation-Sedation Scale (RASS): 0 - Alert and Calm Level of Consciousness is awake, alert, obeys commands, Oriented to person, place, time, situation, [employer] Brakes are equal bilaterally Moves all extremities. Full function. GI: Abdomen is flat, non-distended, Bowel sounds hypoactive in right upper quadrant, left upper quadrant, right lower quadrant and left lower quadrant Abdomen is tender to palpation X 4 quads. Vital Signs: 16:31 BP 120 / 79; Pulse 87; Resp 18; Temp 98.5; Pulse Ox 100% ; Weight 70.31 kg; Height 6 ap3 ft. 1 in. ; Pain 10/10; 17:00 BP 119 / 75; Pulse 76; Resp 16; Pulse Ox 97% ; cf3 18:00 BP 129 / 75; Pulse 89; Resp 16; Pulse Ox 97% ; cf3 19:00 BP 130 / 81; Pulse 91; Resp 16; Pulse Ox 97% ; cf3 20:00 BP 129 / 83; Pulse 87; Resp 14; Pulse Ox 96% on R/A; cf3 16:31 Body Mass Index 20.45 (70.31 kg, 185.42 cm) ap3 16:31 Pain Scale: Adult ap3 ED Course: 16:25 Patient arrived in ED. al6 16:32 Chris Tineo PA is PHCP. cp 16:32 Morteza Lee MD is Attending Physician. cp 16:32 Triage completed. ap3 16:34 Arm band placed on right wrist. ap3 17:00 Christian Benítez, JAD is Primary Nurse. cf3 17:00 Patient has correct armband on for positive identification. Bed in low position. Call cf3 light in reach. Side rails up X 1. 17:00 Client placed on continuous cardiac and pulse oximetry monitoring. NIBP monitoring cf3 applied. Door closed. Noise minimized. Visitors limited. 17:00 No provider procedures requiring assistance completed. Inserted saline lock: 20 gauge cf3 in right forearm, using aseptic technique. Blood collected. Flushed with 10 mL NS. 18:53 XRAY Abdomen Acute Series In Process Unspecified. EDMS 19:32 Deepika Ferrera MD is Attending Physician. cp 20:02 IV discontinued, intact, bleeding controlled, No redness/swelling at site. Pressure cf3 dressing applied. Administered Medications: 18:04 Drug: morphine IVP or IV 4 mg IVP once over 4 mins Route: IVP; Infused Over: 4 mins; cf3 Site: right forearm; 19:37 Follow up: Response: No adverse reaction; Pain is decreased cf3 18:04 Drug: NS 0.9% IV 1000 ml IV at 1 bolus Per protocol; to be given as a bolus over 60 cf3 minutes Route: IV; Rate: 1 bolus; Site: right forearm; 19:08 Follow up: Response: No adverse reaction; Marked relief of symptoms cf3 20:03 Follow up: IV Status: Completed infusion; IV Intake: 1000ml cf3 18:04 Drug: diphenhydrAMINE IVP 25 mg IVP once Route: IVP; Site: right forearm; cf3 19:24 Follow up: Response: No adverse reaction; Marked relief of symptoms cf3 18:04 Drug: metoCLOPramide IVP 10 mg IVP once; over 1 to 2 minutes Route: IVP; Site: right cf3 forearm; 19:24 Follow up: Response: No adverse reaction; Marked relief of symptoms cf3 Medication: 19:35 VIS not applicable for this client. cf3 Intake: 20:03 IV: 1000ml; Total: 1000ml. cf3 Outcome: 19:33 Discharge ordered by . cp 20:02 Discharged to home ambulatory, cf3 20:02 Condition: good 20:02 Discharge instructions given to patient, Instructed on discharge instructions, follow up and referral plans. medication usage, Demonstrated understanding of instructions, follow-up care, medications, Prescriptions given X 1, 20:04 Patient left the ED. cf3 Signatures: Dispatcher [employer] EDMS Chris Tineo PA-C PA-C cp Prokisch, Amanda, RN RN ap3 Danna Lord al6 Christian Benítez RN RN cf3
--- NOTE | 2025-05-26 19:34 | EDPHYS ---
Physician Documentation [facility] Name: Matt Robles Age: 49 yrs Sex: Male : 1975 Arrival Date: 05/26/2025 Time: 16:21 Bed 20 Private MD: ED Physician Deepika Ferrera HPI: 05/26 17:05 This 49 yrs old Black Male presents to ER via Ambulatory with complaints of Nausea, cp Abdominal Pain - and swelling. 17:05 The patient presents to the emergency department with nausea, that is moderate, cp abdominal pain, of the abdomen diffusely. Onset: The symptoms/episode began/occurred today. Associated signs and symptoms: Pertinent positives: constipation, Pertinent negatives: diarrhea, fever, GI bleeding, vomiting, chest pain. Severity of symptoms: in the emergency department the symptoms are unchanged despite home interventions. The patient has experienced similar episodes in the past, multiple times. 17:05 Patient reports nausea and pain started this afternoon after [employer]. cp Historical: - Allergies: 16:33 Toradol; ap3 - PMHx: 16:33 CYSTIC FIBROSIS; ileus; ap3 - PSHx: 16:33 Appendectomy; Bilateral Inguinal Hernia Repair; ap3 - Immunization history:: Adult Immunizations up to date. - Infectious Disease History:: Denies. - Social history:: Smoking status: Patient denies any tobacco usage or history of. ROS: 17:10 Constitutional: Negative for body aches, chills, fever, poor PO intake, cp 17:10 Eyes: Negative for injury, pain, redness, and discharge, cp 17:10 ENT: Negative for drainage from ear(s), ear pain, sore throat, difficulty swallowing, difficulty handling secretions, 17:10 Cardiovascular: Negative for chest pain, edema, palpitations, 17:10 Respiratory: Negative for cough, shortness of breath, wheezing, 17:10 Abdomen/GI: Positive for abdominal pain, nausea, constipation, abdominal distension, Negative for vomiting, diarrhea, 17:10 Neuro: Negative for altered mental status, headache, weakness, 17:10 All other systems are negative, Exam: 17:15 Constitutional: The patient appears in no acute distress, alert, awake, cp non-diaphoretic, non-toxic, well developed, well nourished, 17:15 Head/Face: Normocephalic, atraumatic. cp 17:15 Eyes: Periorbital structures: appear normal, Conjunctiva: normal, no exudate, no injection, Sclera: no appreciated abnormality, Lids and lashes: appear normal, bilaterally, 17:15 ENT: External ear(s): are unremarkable, Nose: is normal, Mouth: Lips: moist, Oral mucosa: moist, Posterior pharynx: Airway: no evidence of obstruction, patent, 17:15 Chest/axilla: Inspection: normal, 17:15 Cardiovascular: Rate: normal, Rhythm: regular, 17:15 Respiratory: the patient does not display signs of respiratory distress, Respirations: normal, no use of accessory muscles, no retractions, labored breathing, is not present, Breath sounds: are clear throughout, no decreased breath sounds, no stridor, no wheezing, 17:15 Abdomen/GI: Inspection: distension, that is mild, Bowel sounds: active, all quadrants, Palpation: soft, in all quadrants, moderate abdominal tenderness, in all quadrants, rebound tenderness, is not appreciated, involuntary guarding, is not appreciated, 17:15 Back: pain, is absent, ROM is normal, 17:15 Neuro: Orientation: to person, place \T\ time. Mentation: is normal, Vital Signs: 16:31 BP 120 / 79; Pulse 87; Resp 18; Temp 98.5; Pulse Ox 100% ; Weight 70.31 kg; Height 6 ap3 ft. 1 in. ; Pain 10/10; 17:00 BP 119 / 75; Pulse 76; Resp 16; Pulse Ox 97% ; cf3 18:00 BP 129 / 75; Pulse 89; Resp 16; Pulse Ox 97% ; cf3 19:00 BP 130 / 81; Pulse 91; Resp 16; Pulse Ox 97% ; cf3 20:00 BP 129 / 83; Pulse 87; Resp 14; Pulse Ox 96% on R/A; cf3 16:31 Body Mass Index 20.45 (70.31 kg, 185.42 cm) ap3 16:31 Pain Scale: Adult ap3 MDM: 16:35 Medical Screening Exam initiated cp 17:00 Differential diagnosis: Nonspecific abd pain, gastritis, viral gastroenteritis, cp gastroenteritis, chronic pain, drug seeking behavior, ileus, bowel obstruction. 19:32 Data reviewed: vital signs, nurses notes, lab test result(s), radiologic studies, plain cp films, and as a result, I will discharge patient. 19:32 I considered the following discharge prescriptions or medication management in the emergency department Medications were administered in the Emergency Department. See MAR. Counseling: I had a detailed discussion with the patient and/or guardian regarding the historical points, exam findings, and any diagnostic results supporting the discharge/admit diagnosis, lab results, radiology results, to return to the emergency department if symptoms worsen or persist or if there are any questions or concerns that arise at home. Response to treatment: the patient's symptoms have mildly improved after treatment, and as a result, I will discharge patient. Special discussion: Based on the patient's Hx, exam, and Dx evaluation, there is no indication for emergent surgery or inpatient Tx. It is understood by the patient/guardian that if the Sx's persist or worsen they need to return immediately for re-evaluation. ED course: VSS. Discussed results of today's testing with xrays negative for bowel obstruction. Will discharge to home for continued monitoring. Patient reports having meds at home for constipation to take. 05/26 16:59 Order name: CBC with Diff; Complete Time: 18:15 05/26 16:59 Order name: CMP; Complete Time: 19:11 05/26 19:11 Interpretation: Normal except: NA 135; GLUC 139; GFR 76; AST 12; GLOB 3.9; A/G 0.9. 05/26 16:59 Order name: Lipase; Complete Time: 19:11 05/26 16:59 Order name: Lactate w/ 2H reflex if indic.; Complete Time: 19:11 05/26 16:59 Order name: XRAY Abdomen Acute Series; Complete Time: 19:11 05/26 19:11 Interpretation: Report reviewed. 05/26 16:59 Order name: IV Saline Lock; Complete Time: 19:08 05/26 16:59 Order name: Labs collected and sent; Complete Time: 19:08 05/26 19:16 Order name: PO challenge; Complete Time: 19:24 cp Administered Medications: 18:04 Drug: morphine IVP or IV 4 mg IVP once over 4 mins Route: IVP; Infused Over: 4 mins; cf3 Site: right forearm; 19:37 Follow up: Response: No adverse reaction; Pain is decreased cf3 18:04 Drug: NS 0.9% IV 1000 ml IV at 1 bolus Per protocol; to be given as a bolus over 60 cf3 minutes Route: IV; Rate: 1 bolus; Site: right forearm; 19:08 Follow up: Response: No adverse reaction; Marked relief of symptoms cf3 20:03 Follow up: IV Status: Completed infusion; IV Intake: 1000ml cf3 18:04 Drug: diphenhydrAMINE IVP 25 mg IVP once Route: IVP; Site: right forearm; cf3 19:24 Follow up: Response: No adverse reaction; Marked relief of symptoms cf3 18:04 Drug: metoCLOPramide IVP 10 mg IVP once; over 1 to 2 minutes Route: IVP; Site: right cf3 forearm; 19:24 Follow up: Response: No adverse reaction; Marked relief of symptoms cf3 Disposition Summary: 05/26/25 19:33 Discharge Ordered Notes: Location: Home cp Problem: an ongoing problem cp Symptoms: have improved cp Condition: Stable cp Diagnosis - Constipation, unspecified cp - Abdominal pain, unspecified cp - Nausea cp Followup: cp - With: Private Physician - When: 2 - 3 days - Reason: Recheck today's complaints Discharge Instructions: - Discharge Summary Sheet cp - Abdominal Pain, Adult cp - Constipation, Adult cp - Nausea, Adult cp Forms: - Medication Reconciliation Form cp - Antibiotic Education cp - Prescription Opioid Use cp - Patient Portal Instructions cp - Leadership Thank You Letter cp Prescriptions: - Reglan 10 mg Oral Tablet - take 1 tablet ORAL route every 6 hours take 30 minutes before meals and at cp bedtime; 20 tablet; Refills: 0, Product Selection Permitted Signatures: Dispatcher [employer] Chris Cordoba PA-C PA-C cp Hollie Taylor RN RN ap3 Christian Benítez, RN RN cf3
[2025-05-27 01:26] VITALS: TEMP 98.5
[2025-05-27 01:37] VITALS: BP 129/83; O2SAT 96
== END 2025-05-26 20:04 | disposition home or self-care (01) ==
LOC: ER 16:21
DX: K59.00 Constipation, unspecified (principal); R11.0 Nausea
CPT/HCPCS: 96361; 85025; 36415; 83605; 83690; 80053; 74022; 96375; 96374; 99284; J2765; J1200; J7030

== ENCOUNTER 2025-07-07 17:37 | Emergency (ER) | payer OTHER ==
[2025-07-07] MEDS ORDERED: ONDANSETRON 4 MG/2 ML VIAL ONE (19:09)
[2025-07-07] MEDS ORDERED: NA CHLORIDE 0.9% 1,000 ML ONE (19:11)
[2025-07-07] MEDS ORDERED: MORPHINE 4 MG/ML SYR ONE (19:11)
[2025-07-07 19:21] LABS: Absolute Lymphocytes (CBC) 1.9 K/uL (0.7-4.9); Hematocrit 39.8 % (39.6-49.0); Hemoglobin 13.2 g/dL (13.6-17.9); MCH 30.4 pg (27.0-35.0); MCHC 33.3 g/dL (32.0-36.0); MCV 91.4 fL (80-100); MPV 9.5 fL (7.6-11.3); Nucleated RBC Absolute Count 0.0 (0-0); Nucleated Red Blood Cells % 0.0 % (0-0); RBC Red Blood Cell Count 4.36 M/uL (4.33-5.43); White Blood Count 5.80 thou/uL (4.3-10.9)
[2025-07-07 19:48] LABS: ALT/SGPT 28 U/L (16-61); AST/SGOT 16 U/L (15-37); Albumin 3.4 g/dL (3.4-5.0); Albumin/Globulin Ratio 0.9 (1.1-1.8); Alkaline Phosphatase 86 U/L (45-117); Anion Gap 7.8 mEq/L (5.0-15.0); BUN Blood Urea Nitrogen 17 mg/dL (7-18); Globulin 3.8 g/dL (2.3-3.5); Glucose Level 111 mg/dL (74-106); Potassium 3.8 mEq/L (3.5-5.1)
[2025-07-07 19:49] LABS: Lipase < 6 U/L (13-75)
--- NOTE | 2025-07-07 20:18 | RAD REPORT ---
EXAMINATION: CT Abdomen Pelvis W Contrast CLINICAL INDICATION: Male, 49 years old. ABD PAIN TECHNIQUE: CT abdomen and pelvis was performed, after the administration of IV contrast, as per [facility] protocol. Axial, sagittal and coronal reconstructions were obtained. One or more of the following dose reduction techniques were used: Automated exposure control, adjustment of the mA and k V according to patient size, and iterative reconstruction. Unless otherwise specified, incidental findings do not require dedicated imaging follow-up. COMPARISON: No prior exam. FINDINGS: LOWER CHEST: The visualized lung bases are clear. LIVER: Normal in size and contour. No focal lesion. BILIARY SYSTEM: No suspicious abnormalities. SPLEEN: Normal size. No focal lesion. PANCREAS: No mass, ductal dilation, or jean paul-pancreatic fluid. ADRENALS: Normal; no mass. KIDNEYS: Normal size and contour. No hydronephrosis. URINARY BLADDER: Unremarkable. GASTROINTESTINAL TRACT: No evidence of free air, significant intra-abdominal free fluid, bowel obstru ction or abscess. Patulous segments of small bowel with fecalization, without significant distention. Moderate stool burden throughout the colon. APPENDIX: Appendix surgically absent. LYMPH NODES: No lymphadenopathy. MUSCULOSKELETAL: No acute or suspicious osseous abnormality. ADDITIONAL FINDINGS: None. IMPRESSION: No acute or concerning abnormalities seen in the abdomen or pelvis. Findings as above.
--- NOTE | 2025-07-07 20:48 | EDPHYS ---
Physician Documentation [facility] Name: Matt Robles Age: 49 yrs Sex: Male : 1975 Arrival Date: 07/07/2025 Time: 17:37 Bed 6 Private MD: ED Physician Chaka Bazzi HPI: 07/07 18:45 This 49 yrs old Black Male presents to ER via Ambulatory with complaints of Abdominal sp3 Pain, Nausea. 18:45 49-year-old male with history of cystic fibrosis, chronic ileus with multiple sp3 admissions and transfers, presents now for recurrent diffuse abdominal pain. Patient states that he is still passing gas but last BM was yesterday. Review of system negative for headache, neck pain, chest pain, shortness of breath, back pain, vomiting, fever, or any other signs or symptoms on ROS at this time.. Historical: - Allergies: 17:59 Toradol; jb4 - PMHx: 17:59 CYSTIC FIBROSIS; ileus; jb4 - PSHx: 17:59 Appendectomy; Bilateral Inguinal Hernia Repair; jb4 - Immunization history:: Adult Immunizations up to date. - Infectious Disease History:: Denies. - Social history:: Smoking status: Patient denies any tobacco usage or history of. ROS: 18:45 Constitutional: Negative for fever, chills, and weight loss, Eyes: Negative for injury, sp3 pain, redness, and discharge, ENT: Negative for injury, pain, and discharge, Neck: Negative for injury, pain, and swelling, Cardiovascular: Negative for chest pain, palpitations, and edema, Respiratory: Negative for shortness of breath, cough, wheezing, and pleuritic chest pain, Back: Negative for injury and pain, MS/Extremity: Negative for injury and deformity, Skin: Negative for injury, rash, and discoloration, Neuro: Negative for headache, weakness, numbness, tingling, and seizure, Psych: Negative for depression, anxiety, suicide ideation, homicidal ideation, and hallucinations, Allergy/Immunology: Negative for hives, rash, and allergies, Endocrine: Negative for neck swelling, polydipsia, polyuria, polyphagia, and marked weight changes, Hematologic/Lymphatic: Negative for swollen nodes, abnormal bleeding, and unusual bruising, 18:45 All other systems are negative, Exam: 18:46 Constitutional: This is a well developed, well nourished patient who is awake, alert, sp3 and in no acute distress. Head/Face: Normocephalic, atraumatic. Eyes: Pupils equal round and reactive to light, extra-ocular motions intact. Lids and lashes normal. Conjunctiva and sclera are non-icteric and not injected. Cornea within normal limits. Periorbital areas with no swelling, redness, or edema. Neck: Trachea midline, no thyromegaly or masses palpated, and no cervical lymphadenopathy. Supple, full range of motion without nuchal rigidity, or vertebral point tenderness. No Meningismus. Chest/axilla: Normal chest wall appearance and motion. Nontender with no deformity. No lesions are appreciated. Cardiovascular: Regular rate and rhythm with a normal S1 and S2. No gallops, murmurs, or rubs. Normal PMI, no JVD. No pulse deficits. Respiratory: Lungs have equal breath sounds bilaterally, clear to auscultation and percussion. No rales, rhonchi or wheezes noted. No increased work of breathing, no retractions or nasal flaring. Back: No spinal tenderness. No costovertebral tenderness. Full range of motion. Skin: Warm, dry with normal turgor. Normal color with no rashes, no lesions, and no evidence of cellulitis. MS/ Extremity: Pulses equal, no cyanosis. Neurovascular intact. Full, normal range of motion. Neuro: Awake and alert, GCS 15, oriented to person, place, time, and situation. Cranial nerves II-XII grossly intact. Motor strength 5/5 in all extremities. Sensory grossly intact. Cerebellar exam normal. Normal gait. Psych: Awake, alert, with orientation to person, place and time. Behavior, mood, and affect are within normal limits. 18:46 Abdomen/GI: Diffuse abdominal pain without peritoneal signs, rebound or guarding., Vital Signs: 17:57 BP 130 / 85; Pulse 67; Resp 16; Temp 97.6(TE); Pulse Ox 99% on R/A; Weight 73.03 kg jb4 (R); Height 6 ft. 1 in. (R); Pain 10/10; 19:15 BP 145 / 88; Pulse 73; Resp 17; Temp 97.9; Pulse Ox 100% on R/A; Pain 10/10; zm 21:22 BP 130 / 78; Pulse 80; Resp 17; Temp 97.9; Pulse Ox 100% ; Pain 0/10; bm8 17:57 Body Mass Index 21.24 (73.03 kg, 185.42 cm) jb4 17:57 Pain Scale: Adult jb4 19:15 Pain Scale: Adult zm 21:22 Pain Scale: Adult bm8 [place] Coma Score: 19:15 Eye Response: spontaneous(4). Motor Response: obeys commands(6). Verbal Response: zm oriented(5). Total: 15. 21:22 Eye Response: spontaneous(4). Motor Response: obeys commands(6). Verbal Response: bm8 oriented(5). Total: 15. MDM: 18:06 Medical Screening Exam initiated sp3 18:47 Data reviewed: vital signs, nurses notes, old medical records, lab test result(s), sp3 radiologic studies. ED course: 49-year-old male with cystic fibrosis and history of ileus now with abdominal pain. Differential diagnosis includes recurrent ileus, bowel obstruction, other colitis, other enteritis, adhesions, musculoskeletal pain, among others. Workup will include CT scan of the abdomen pelvis with IV contrast, general labs coding lactate, UA and general supportive care with IV fluids, pain and nausea control. Patient be signed out to nighttime physician for reevaluation and final disposition.. 07/07 18:41 Order name: CBC with Diff; Complete Time: 20:40 sp3 07/07 18:41 Order name: CMP; Complete Time: 20:40 sp3 07/07 18:41 Order name: Lipase; Complete Time: 20:40 sp3 07/07 18:41 Order name: Lactate w/ 2H reflex if indic.; Complete Time: 20:40 sp3 07/07 18:41 Order name: CT Abd/Pelvis - IV Contrast Only; Complete Time: 20:40 sp3 07/07 18:41 Order name: IV Saline Lock; Complete Time: 19:12 sp3 07/07 18:41 Order name: Labs collected and sent; Complete Time: 19:12 sp3 Administered Medications: 19:49 Drug: NS 0.9% IV 1000 ml IV at 1 bolus Per protocol; to be given as a bolus over 60 zm minutes Route: IV; Rate: 1 bolus; Site: right forearm; 21:23 Follow up: Response: No adverse reaction; IV Status: Completed infusion bm8 19:50 Drug: Ondansetron IVP 4 mg IVP once; over 2 minutes Route: IVP; Site: right forearm; zm 21:23 Follow up: Response: No adverse reaction bm8 19:50 Drug: morphine IVP or IV 4 mg IVP once over 4 mins Route: IVP; Infused Over: 4 mins; zm Site: right forearm; 21:23 Follow up: Response: No adverse reaction bm8 21:20 Drug: Simethicone PO 80 mg PO once Route: PO; bm8 21:24 Follow up: Response: No adverse reaction bm8 Disposition Summary: 07/07/25 20:47 Discharge Ordered Notes: Location: Home sp4 Problem: new sp4 Symptoms: have improved sp4 Condition: Stable sp4 Diagnosis - Constipation sp4 - Constipation on for lactulose secondary to cystic fibrosis, Diffuse abdominal pain sp4 secondary to cystic fibrosis Followup: sp4 - With: Private Physician - When: 7 - 10 days - Reason: Recheck today's complaints Discharge Instructions: - Discharge Summary Sheet sp4 - Cystic Fibrosis, Adult sp4 Forms: - Patient Portal Instructions sp4 Prescriptions: - simethicone 80 mg Oral tablet,chewable - take 1 tablet ORAL route every 6 hours as needed for abdominal distention; 60 sp4 tablet; Refills: 0, Product Selection Permitted Signatures: Dispatcher [employer] Abhinav Hartman, RN RN jb4 Deepika Ferrera MD MD sp3 Cristiana Arreguin RN RN zm Chaka Bazzi MD MD sp4 Amari Mcnair RN RN bm8
--- NOTE | 2025-07-07 20:48 | ER ---
Nurse's Notes [facility] Name: Matt Robles Age: 49 yrs Sex: Male : 1975 Arrival Date: 07/07/2025 Time: 17:37 Bed 6 Private MD: Diagnosis: Constipation;Constipation on for lactulose secondary to cystic fibrosis, Diffuse abdominal pain secondary to cystic fibrosis Presentation: 07/07 17:57 Chief complaint: Patient states: This afternoon I started having abdominal pain with jb4 nausea. Coronavirus screen: At this time, the client does not indicate any symptoms associated with coronavirus-19. Ebola Screen: No symptoms or risks identified at this time. Initial Sepsis Screen: Does the patient meet any 2 criteria? No. Patient's initial sepsis screen is negative. Does the patient have a suspected source of infection? No. Patient's initial sepsis screen is negative. Risk Assessment: Do you want to hurt yourself or someone else? Patient reports no desire to harm self or others. Onset of symptoms was July 07, 2025. Transition of care: patient was not received from another setting of care. 17:57 Method Of Arrival: Ambulatory jb4 17:57 Acuity: BRENNA 3 jb4 Historical: - Allergies: 17:59 Toradol; jb4 - PMHx: 17:59 CYSTIC FIBROSIS; ileus; jb4 - PSHx: 17:59 Appendectomy; Bilateral Inguinal Hernia Repair; jb4 - Immunization history:: Adult Immunizations up to date. - Infectious Disease History:: Denies. - Social history:: Smoking status: Patient denies any tobacco usage or history of. Screenin:46 [facility] ED Fall Risk Assessment (Adult) History of falling in the last 3 months, zm including since admission No falls in past 3 months (0 pts) Confusion or Disorientation No (0 pts) Intoxicated or Sedated No (0 pts) Impaired Gait No (0 pts) Mobility Assist Device Used No (0 pt) Altered Elimination No (0 pt) Score/Fall Risk Level 0 - 2 = Low Risk Oriented to surroundings, Maintained a safe environment, Educated pt \T\ family on fall prevention, incl call for assistance when getting out of bed, Assessed \T\ reinforced patient's understanding of fall precautions, Hourly rounding (assess needs \T\ fall precautionary measures) done, Used ambulatory aids as needed (educated on \T\ assisted with), Used gait belt as appropriate. Abuse screen: Denies threats or abuse. Denies injuries from another. Nutritional screening: No deficits noted. Tuberculosis screening: No symptoms or risk factors identified. Assessment: 19:34 General: Appears in no apparent distress. comfortable, Behavior is calm, cooperative. zm Pain: Complains of pain in right lower quadrant Pain currently is 10 out of 10 on a pain scale. Neuro: No deficits noted. Level of Consciousness is awake, alert, obeys commands, Oriented to person, place, time, situation. Cardiovascular: No deficits noted. Heart tones S1 S2 present Capillary refill < 3 seconds in bilateral fingers Patient's skin is warm and dry. Respiratory: No deficits noted. Airway is patent Respiratory effort is even, unlabored, Respiratory pattern is regular, symmetrical, Breath sounds are clear bilaterally. in right upper lobe and left upper lobe. GI: Abdomen is round distended, Last meal at 14:00. Bowel sounds present X 4 quads. Abd is non tender X 4 quads. 21:22 Reassessment: Patient appears in no apparent distress at this time. Patient and/or bm8 family updated on plan of care and expected duration. Pain level reassessed. Patient is alert, oriented x 3, equal unlabored respirations, skin warm/dry/pink. Patient denies pain at this time. Patient states feeling better. Patient states symptoms have improved. Vital Signs: 17:57 BP 130 / 85; Pulse 67; Resp 16; Temp 97.6(TE); Pulse Ox 99% on R/A; Weight 73.03 kg jb4 (R); Height 6 ft. 1 in. (R); Pain 10/10; 19:15 BP 145 / 88; Pulse 73; Resp 17; Temp 97.9; Pulse Ox 100% on R/A; Pain 10/10; zm 21:22 BP 130 / 78; Pulse 80; Resp 17; Temp 97.9; Pulse Ox 100% ; Pain 0/10; bm8 17:57 Body Mass Index 21.24 (73.03 kg, 185.42 cm) jb4 17:57 Pain Scale: Adult jb4 19:15 Pain Scale: Adult zm 21:22 Pain Scale: Adult bm8 [place] Coma Score: 19:15 Eye Response: spontaneous(4). Motor Response: obeys commands(6). Verbal Response: zm oriented(5). Total: 15. 21:22 Eye Response: spontaneous(4). Motor Response: obeys commands(6). Verbal Response: bm8 oriented(5). Total: 15. ED Course: 17:50 Patient arrived in ED. al6 17:59 Deepika Ferrera MD is Attending Physician. sp3 17:59 Triage completed. jb4 17:59 Arm band placed on right wrist. jb4 19:00 Inserted saline lock: 20 gauge in right forearm, using aseptic technique. Flushed with bm8 10 mL NS. 19:17 Attending Physician role handed off by Deepika Ferrera MD sp4 19:17 Chaka Bazzi MD is Attending Physician. sp4 19:25 Cristiana Arreguin, JAD is Primary Nurse. zm 19:25 Lactate w/ 2H reflex if indic. Sent. zm 19:25 CBC with Diff Sent. zm 19:25 CMP Sent. zm 19:25 Lipase Sent. zm 19:46 Patient has correct armband on for positive identification. Bed in low position. Call zm light in reach. Side rails up X 1. Provided Education on: call light use. Client placed on continuous cardiac and pulse oximetry monitoring. NIBP monitoring applied. Pulse ox on. NIBP on. Door closed. Noise minimized. Lights dimmed. Warm blanket given. Verbal reassurance given. 20:05 CT Abd/Pelvis - IV Contrast Only In Process Unspecified. EDMS 21:22 No provider procedures requiring assistance completed. IV discontinued, intact, bm8 bleeding controlled, No redness/swelling at site. Pressure dressing applied. Administered Medications: 19:49 Drug: NS 0.9% IV 1000 ml IV at 1 bolus Per protocol; to be given as a bolus over 60 zm minutes Route: IV; Rate: 1 bolus; Site: right forearm; 21:23 Follow up: Response: No adverse reaction; IV Status: Completed infusion bm8 19:50 Drug: Ondansetron IVP 4 mg IVP once; over 2 minutes Route: IVP; Site: right forearm; zm 21:23 Follow up: Response: No adverse reaction bm8 19:50 Drug: morphine IVP or IV 4 mg IVP once over 4 mins Route: IVP; Infused Over: 4 mins; zm Site: right forearm; 21:23 Follow up: Response: No adverse reaction bm8 21:20 Drug: Simethicone PO 80 mg PO once Route: PO; bm8 21:24 Follow up: Response: No adverse reaction bm8 Medication: 19:48 VIS not applicable for this client. zm Outcome: 20:47 Discharge ordered by . sp4 21:24 Discharged to home ambulatory, bm8 21:24 Condition: stable 21:24 Discharge instructions given to patient, Instructed on discharge instructions, follow up and referral plans. Demonstrated understanding of instructions, follow-up care, medications, Prescriptions given X 1, 21:25 Patient left the ED. bm8 Signatures: Dispatcher [employer] EDMS Abhinav Regalado RN RN jb4 Deepika Ferrera MD MD sp3 Cristiana Arreguin RN RN Chaka Singh MD MD sp4 Amari Mcnair RN RN bm8 Julian Larose Jr, JAD RN nh2 Danna Lord al6 Corrections: (The following items were deleted from the chart) 18:45 18:44 Julian Larose Jr, RN is Primary Nurse. nh2 nh2 19:49 19:34 General: Appears in no apparent distress. comfortable, zm zm
[2025-07-07] MEDS ORDERED: SIMETHICONE 80 MG CHEWABLE TAB ONE (21:18)
[2025-07-07 21:50] VITALS: TEMP 97.9; O2SAT 100
[2025-07-07 21:51] VITALS: BP 130/78
== END 2025-07-07 21:25 | disposition home or self-care (01) ==
LOC: ER 17:37
DX: E84.9 Cystic fibrosis, unspecified (principal); K59.00 Constipation, unspecified
CPT/HCPCS: 96361; 85025; 36415; 83605; 83690; 80053; 74177; 96375; 96374; 99284; Q9967; J2405; J7030